=== PATIENT | male | born 1950 | race Caucasian/White ===

== ENCOUNTER 2022-02-01 08:34 | Emergency (ER) | payer MEDICARE, OTHER, SELFPAY ==
--- NOTE | ~2022-02-01 | XR_ITS ---
EXAMINATION: XR chest 1V portable INDICATION: Cough and shortness of breath TECHNIQUE: Portable AP chest at 0850 hours COMPARISON: None available FINDINGS: The lungs are free of acute opacities. No pleural effusion or pneumothorax. The cardiomedia stinal silhouette is normal. There is thoracolumbar dextroscoliosis. IMPRESSION: 1. No acute cardiopulmonary abnormality. Reviewed, dictated and finalized at location A.
[2022-02-01 08:42] VITALS: BP 121/78; PULSE 97; RESP 18; TEMP 37.3; O2SAT 95
--- NOTE | 2022-02-01 08:53 | ED.GENADULT ---
HPI - General Adult General Chief complaint: Upper Respiratory Infection Stated complaint: Covid + Time Seen by Provider: 02/01/22 08:39 History of Present Illness HPI narrative: 71-year-old male presented to the emergency department for evaluation of COVID symptoms. Patient began having fever and chills overnight on Wednesday. Patient does complain of persistent cough and nasal drip. Patient denies any chest pain or shortness of breath. Patient denies any nausea vomiting or diarrhea. Patient is vaccinated and treated. Patient does take medications for high cholesterol. Related Data Allergies Allergy/AdvReac Type Severity Reaction Status Date / Time No Known Allergies Allergy Verified 02/01/22 08:46 Review of Systems Review of Systems: CONSTITUTIONAL: See HPI EYES: Denies visual changes, redness, or discharge. ENT: Denies rhinorrhea, congestion, sore throat, or otalgia. CARDIOVASCULAR: Denies chest pain, palpitations, or edema. RESPIRATORY: Does report cough, see HPI GASTROINTESTINAL: Denies abdominal pain, nausea, vomiting, or diarrhea. GENITOURINARY: Denies dysuria or hematuria. SKIN: Denies rash or itching. MUSCULOSKELETAL: Denies back pain, joint pain, or myalgia. NEUROLOGIC: Denies headache, numbness, or weakness. PSYCHIATRIC: Denies anxiety or depression. Exam Narrative: APPEARANCE: Well appearing, no pain, no distress, well-nourished. HEAD: normocephalic, atraumatic. EYES: PERRLA/EOMI, conjunctivae clear. NOSE: Normal no drainage EARS:TMS clear with good light reflex. THROAT: Pharynx clear, no exudate. NECK: Supple. No adenopathy, no masses. RESPIRATORY: Airway patent, respirations nonlabored. Clear to auscultation bilaterally, no rales, rhonchi, wheezing. CARDIOVASCULAR: Regular rate and rhythm without murmurs rubs or gallops. ABDOMINAL: Soft, nontender, nondistended, normal bowel sounds MUSCULOSKELETAL: Moves all extremities. Strength/ROM intact, No edema, No calf tenderness. NEURO: Alert. Cranial nerves II through XII intact. Grossly intact SKIN: Warm, dry. Normal Color Course Course Emergency Course: X-ray showed no acute cardiopulmonary abnormality. Patient was provided Tessalon Perles and paxlovid Vital Signs Vital signs: Vital Signs Temperature 99.2 F 02/01/22 08:42 Pulse Rate 97 06/26/22 08:42 Respiratory Rate 18 02/01/22 08:42 Blood Pressure 121/78 02/01/22 08:42 Pulse Oximetry 95 02/01/22 08:42 Oxygen Delivery Room Air 02/01/22 08:42 Temperature 99.2 F 02/01/22 08:42 Pulse Rate 89 02/01/22 09:16 Respiratory Rate 23 H 02/01/22 09:16 Blood Pressure 117/79 02/01/22 09:16 Pulse Oximetry 95 02/01/22 09:16 Oxygen Delivery Room Air 02/01/22 08:42 Medical Decision Making Vital Signs Vital Signs: Vital Signs Temperature 99.2 F 02/01/22 08:42 Pulse Rate 97 02/01/22 08:42 Respiratory Rate 18 02/01/22 08:42 Blood Pressure 121/78 02/01/22 08:42 Pulse Oximetry 95 02/01/22 08:42 Oxygen Delivery Room Air 02/01/22 08:42 Temperature 99.2 F 02/01/22 08:42 Pulse Rate 89 02/01/22 09:16 Respiratory Rate 23 H 02/01/22 09:16 Blood Pressure 117/79 02/01/22 09:16 Pulse Oximetry 95 02/01/22 09:16 Oxygen Delivery Room Air 02/01/22 08:42 Imaging Data Radiologist's impression: Impressions Chest X-Ray 02/01/22 09:04 IMPRESSION: 1. No acute cardiopulmonary abnormality. Discharge Plan Discharge Clinical Impression: COVID Patient Disposition: Home, Self-Care Condition: Stable Instructions: Antibiotic Form, COVID-19 (Coronavirus Disease 2019) (ED) Additional Instructions: Agustin Ott for cough. paxlovid as directed. Have close follow-up with your primary care physician. If you have any worsening symptoms then please call or return to the emergency department Prescriptions: New benzonatate 200 mg capsule 200 mg PO TID PRN (Reason: cough) Qty: 30 0RF Paxlovid (EUA) 150 m
[2022-02-01 09:16] VITALS: BP 117/79; PULSE 89; RESP 23; O2SAT 95
== END 2022-02-01 09:37 | disposition home or self-care (01) ==
PROVIDERS: Emergency Provider Emergency Medicine
DX: U07.1 COVID-19 (principal); E78.00 Pure hypercholesterolemia, unspecified
CPT/HCPCS: 71045; 99283

== ENCOUNTER 2022-06-28 20:15 | Observation (INO) | payer MEDICARE, OTHER, SELFPAY ==
--- NOTE | ~2022-06-28 | XR_ITS ---
EXAMINATION: XR retrograde pyelogram RT DATE: 06/29/2022 11:54 INDICATION: Right lower quadrant pain and urolithiasis. TECHNIQUE: 62 fluoroscopic images of the abdomen and pelvis were obtained during procedure performed by Dr. Ladd. Radiologist was not present for the imaging or procedure. The amount of fluoroscopy t isatu used during this procedure was 0.8 minutes. COMPARISON: CT dated 06/28/2022 FINDINGS: Retrocardiac contrast injection into the right ureter. No other filling defects or strictures identif ied. IMPRESSION: 1. Filling defect in the proximal right ureter which could represent either a gas bubble or reflux of the stone previously at the ureteropelvic junction. Correlate with procedure note for further detail . Reviewed, dictated and finalized at location A. SERVICE DIRECTOR IMPRESSION: 1. Filling defect in the proximal right ureter which could represent either a g as bubble or reflux of the stone previously at the ureteropelvic junction. Tierney elate with procedure note for further detail.
--- NOTE | ~2022-06-28 | CT_ITS ---
EXAMINATION: CT abdomen pelvis wo con DATE: 06/28/2022 21:21 INDICATION: RLQ pain and urinary sx TECHNIQUE: Computed tomography (CT) of the abdomen and pelvis was performed without intravenous contr ast. Automated exposure control and iterative reconstruction technique were employed. The dose-length product was 837.78 mGy-cm. COMPARISON: None. FINDINGS: Lower thorax: Left lower lung scar/atelectasis. Bibasilar dependent atelectasis. Coronary artery calc ification. Mild cardiomegaly. Small hiatal hernia. Liver: Normal. Biliary/Gallbladder: Gallbladder is normal. No bile duct dilation. Pancreas: Fatty infiltration. Spleen: Normal. Adrenals:No mass. Kidneys: Bilateral perinephric stranding and multiple nonobstructing renal calculi. Simple exophytic lower pole mild right renal cyst. Mild right hydronephrosis. GI tract: No small or large bowel dilation. Normal appendix. Diverticulosis without diverticulitis. Mesentery/Peritoneum: No ascites, mass, or free air. Retroperitoneum: No mass. Atherosclerotic abdominal aortic and/or arterial calcifications. Pelvis: 7 mm calcification lodged in the right UVJ. Bladder wall thickening with mural fat infiltrati on, likely a consequence of outlet compromise from mild prostatomegaly. Soft Tissues: Soft tissues and body wall unremarkable. Bones: No acute osseous finding. IMPRESSION: 7 mm right UVJ stone causing mild obstructive uropathy. Reviewed, dictated and finalized at [facility] K. E RIPSAW OPERATOR
[2022-06-28 20:18] VITALS: BP 161/93; PULSE 67; RESP 18; TEMP 36.6; O2SAT 98
[2022-06-28 20:32] LABS: Basophils Absolute Auto 0.1 K/mm3 (0.0-0.1); Basophils Percent Auto 1.2 % (0.2-1.2); Eosinophils Absolute Auto 0.3 K/mm3 (0-0.3); Eosinophils Percent Auto 3.6 % (0-4.4); Hematocrit 45.8 % (42.0-52.0); Hemoglobin 15.2 g/dL (14.0-18.0); Immature Granulocyte Absolute 0.03 K/mm3 (0.00-0.031); Immature Granulocyte Percent A 0.4 % (0-0.5); Lymphocytes Absolute Auto 2.67 K/mm3 (0.9-3.2); Lymphocytes Percent Auto 35.2 % (18.3-44.2); Mean Corpuscular HGB Conc 33.2 g/dl (32-36); Mean Corpuscular Hemoglobin 30.5 pg (26-34); Mean Platelet Volume 9.2 fl (7.4-10.4); Monocytes Absolute Auto 0.9 K/mm3 (0.1-0.6); Monocytes Percent Auto 12.1 % (2.6-8.5); Neutrophils Absolute Auto 3.6 K/mm3 (1.3-6.7); Neutrophils Percent Auto 47.5 % (45.5-73.1); Platelet Count Result 239 k/mm3 (150-375); Red Blood Count 4.98 M/mm3 (4.6-6.20); Red Cell Distribution Width 12.6 % (11.5-14.5); White Blood Count 7.6 K/mm3 (4.5-10.0)
[2022-06-28 20:43] LABS: Alanine Aminotransferase 29 U/L (6-50); Albumin Level 4.2 g/dL (3.5-5.1); Alkaline Phosphatase 77 U/L (38-126); Anion Gap 8 mmol/L (8-16); Aspartate Amino Transferase 31 U/L (17-59); Bilirubin,Total 0.6 mg/dL (0.2-1.3); Blood Urea Nitrogen 13 mg/dL (9-20); Calcium 9.3 mg/dL (8.4-10.2); Carbon Dioxide 25 mmol/L (22-30); Chloride 106 mmol/L (98-107); Estimated CRCL calculation 80 ml/min; Estimated Glomerular Filt Rate > 60; Glucose 137 mg/dL (65-110); Lipase 127 U/L (23-300); Potassium 4.3 mmol/L (3.4-5.0); Sodium 139 mmol/L (137-145)
[2022-06-28 20:56] LABS: Appearance Urine Slightly Cloudy (Clear); Bilirubin Urine Negative (Negative); Blood Urine 2+ (Negative); Color Urine Yellow (Yellow); Glucose Urine UA Negative (Negative); Ketones Urine Trace mg/dL (Negative); Leukocyte Esterase Ur Negative LEU/UL (Negative); Nitrate Urine Negative (Negative); Protein Urine 2+ mg/dL (Negative); Specific Grav Ur >= 1.030 (1.001-1.035)
[2022-06-28 21:00] LABS: Mucus Urine Few /lpf; RBC Urine >75 /hpf (0-2); Squamous Epithelial Cell Urine Rare /hpf (Few); WBC Urine 0-3 /hpf
[2022-06-28 21:01] LABS: Add Urine Microscopic? YES
--- NOTE | 2022-06-28 21:18 | ED.ABDPAIN ---
HPI - Abdominal Pain General Chief Complaint: Abdominal Pain Stated Complaint: RLQ pain Time Seen by Provider: 06/28/22 20:20 History of Present Illness HPI narrative: Patient with history of kidney stones presents with right lower quadrant pain that worsens with urination and nausea, Started several days ago and got much worse today, improved with ibuprofen. No fevers or chills. Related Data Home Medications Medication Instructions Recorded Confirmed cetirizine 5 mg-pseudoephedrine ER tablet PO 06/28/22 120 mg tablet,extended release,12hr (Zyrtec-D) fluticasone propionate 50 intranasal 06/28/22 mcg/actuation nasal spray,suspension simvastatin 40 mg tablet mg 06/28/22 Allergies Allergy/AdvReac Type Severity Reaction Status Date / Time No Known Allergies Allergy Verified 06/28/22 20:22 Review of Systems Review of Systems: CONST: No fever. HEENT: No sore throat C/V: No chest pain RESP: No cough GI: Reports abdominal pain, nausea : Dysuria. M/S: No joint pain. SKIN: No rash. 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 Smoking status: Never smoker Alcohol intake: never Substance use: never Exam Narrative: EXAMINATION OF ORGAN SYSTEMS/BODY AREAS: Constitutional: Vital signs per nursing GENERAL:[No acute distress, non-toxic appearing.] HEAD: Normal with no signs of head trauma. EYES: EOMI, conjunctiva normal ENT: Hearing grossly intact LUNGS: Nonlabored breathing. HEART: [Regular rate and rhythm] ABD: [Soft], [nontender to palpation] : No testicular tenderness or swelling EXT: Normal range of motion SKIN: [No rashes or lesions.] NEURO: [Alert and oriented x 3. No gross focal sensory or strength deficits.] PSYCH: Normal affect Course Vital Signs Vital signs: Vital Signs Temperature 97.8 F 06/28/22 20:18 Pulse Rate 67 06/28/22 20:18 Respiratory Rate 18 06/28/22 20:18 Blood Pressure 161/93 H 06/28/22 20:18 Pulse Oximetry 98 06/28/22 20:18 Oxygen Delivery Room Air 06/28/22 20:18 Temperature 97.8 F 06/28/22 20:18 Pulse Rate 67 06/28/22 20:18 Respiratory Rate 18 06/28/22 20:18 Blood Pressure 161/93 H 06/28/22 20:18 Pulse Oximetry 98 06/28/22 20:18 Oxygen Delivery Room Air 06/28/22 20:18 MDM - Abdominal Pain MDM Narrative Medical decision making narrative: ED COURSE AND MEDICAL DECISION MAKIN-year-old male presenting to the emergency department for acute abdominal pain and dysuria, symptoms are concerning for likely renal colic versus pyelonephritis. Urinalysis is ordered. [Tylenol, morphine, Zofran 4mg] are ordered. CT scan of the abdomen/pelvis is ordered. Labs are remarkable for: hematuria. CT scan of the abdomen/pelvis is reviewed by myself and interpreted by radiology: 7mm R UVJ stone. On reevaluation, discussed options with patient and he'd like to be admitted for intervention; d/w uro radiology interventional physician who is agreeable to seeing him the next day, discussed with hospitalist for admission. Procedures: Pulse oximetry interpretation - not hypoxic. Review of medical records. Lab Data Result diagrams: 06/28/22 20:26 06/28/22 20:26 Labs: Lab Results 06/28/22 06/28/22 06/28/22 Range/Units 20:26 20:26 20:50 WBC 7.6 (4.5-10.0) K/mm3 RBC 4.98 (4.6-6.20) M/mm
[2022-06-28] MEDS: MORPHINE SULFATE (*CRX) 4 MG/ML INJ IV PUSH (22:00)
--- NOTE | 2022-06-28 22:29 | PM.IMHP ---
H&P: HPI History of Present Illness Date/Time: 06/28/22 22:29 Chief Complaint: Abdominal pain, dysuria Narrative: Patient is a 72-year-old male past medical history of kidney stones, hyperlipidemia, essential hypertension, seasonal allergies presents to ED with complaints of dysuria abdominal pain. Symptom onset was couple days ago alleviated somewhat by NSAIDs. Not had any other recent issues. Patient's kidney stones in the past have been passed on their own. He has not needed to have urological intervention previously. In the ED: Abdominal CT scan consistent with 7 mm right UVJ stone with mild obstructive uropathy. Patient made NPO for urology Dr. Frye consultation in. Patient be admitted for observation for right nephrolithiasis and obstructive uropathy. He was slightly hypertensive otherwise labs stable. Review of Systems Review of Systems: Constitutional: No Fever, No Chills, No Night Sweats, No Fatigue, No Malaise ENT/Mouth: No Hearing Changes, No Ear Pain, No Nasal Congestion, No Sinus Pain, No Hoarseness, No sore throat, No Rhinorrhea, No Swallowing Difficulty Eyes: No Eye Pain, No Redness, No Vision Changes Cardiovascular: No Chest Pain, No Palpitations, No Dyspnea on Exertion, No Orthopnea, No Claudication, No Edema Respiratory: No Cough, No Sputum, No Wheezing, No Shortness of Breath Gastrointestinal: Endorses abdominal pain, nausea Genitourinary: Endorses dysuria, dark urine Musculoskeletal: No Arthralgias, No Myalgias, No Joint Swelling, No Joint Stiffness, No Back Pain Skin: No Skin Lesions, No Pruritis, No Hair Changes Neuro: No Weakness, No Numbness, No Paresthesias, No Loss of Consciousness, No Syncope, No Dizziness, No Headache Psych: No Anxiety/Panic, No Depression, No Insomnia Heme: No Bruising, No Bleeding Lymph: No Adenopathy Endocrine: No Polyuria, No Polydipsia, No Temperature Intolerance [facility] Past Medical History Medical History (Updated 06/28/22 @ 22:33 by Lesli Ott DO) Essential hypertension Hyperlipidemia Nephrolithiasis Seasonal allergies Surgical History Surgical History (Updated 06/28/22 @ 22:33 by Lesli Ott DO) History of surgery of head Family History Family History (Updated 06/28/22 @ 22:34 by Lesli Ott DO) Mother Cerebrovascular accident Father Acute myocardial infarction Social History Social History (Updated 06/28/22 @ 22:34 by Lesli Ott DO) 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 Smoking status: Never smoker Alcohol intake: never Substance use: never Meds Home Medications and Allergies Home Medications Medication Instructions Recorded Confirmed Type cetirizine 5 mg-pseudoephedrine ER tablet PO 06/28/22 History 120 mg tablet,extended release,12hr (Zyrtec-D) fluticasone propionate 50 intranasal 06/28/22 History mcg/actuation nasal spray,suspension simvastatin 40 mg tablet mg 06/28/22 History Allergies Allergy/AdvReac Type Severity Reaction Status Date / Time No Known Allergies Allergy Verified 06/28/22 20:22 Vital Signs Vital Signs - 24 hr 06/28/22 20:18 Temperature 36.6 C Pulse Rate 67 Respiratory Rate 18 Blood Pressure 161/93 H Pulse Oximetry 98 Oxygen Delivery Room Air Exam Narrative: - GENERAL: Pleasant obese male in no acute distress. - EYES: EOMI. Anicteric. - HENT: Moist mucous membranes. - LUNGS: Clear to auscultation bilaterally, no wheezing, rhonchi, or rales. - CARDIOVASCULAR: Regular rate and rhythm. No murmur. No JVD. - ABDOMEN: Soft, tender on deep palpation, rectus diastasis. - EXTREMITIES: No edema. Peripheral pulses 2+. Non-tender. - NEUROLOGIC: No focal neurological deficits. CN II-XII grossly intact. - PSYCHIATRIC: Awake, Alert and oriented x 3. Appropriate mood and affect. - SKIN: No rashes or lesions. Warm. - LYMPH: No cervical lymphadenopathy. H&P: Results Labs Labs:
[2022-06-28 22:34] VITALS: BP 129/80; PULSE 55; RESP 18; O2SAT 96
[2022-06-28 23:04] VITALS: BP 122/66; PULSE 52; RESP 18; TEMP 36.4; O2SAT 94; BMI 28.3
--- NOTE | 2022-06-28 23:05 | ADMGEN ---
This patient, Brendon Aldana, was admitted to Medical Room 253-01. Patient/family oriented to hospital policies and general routines including ID bracelet, bed and alarms, visiting hours, pain management, procedures, bathroom and other care routines, personal items, smoking policy, room service/diet, and visiting hours. Information on how to activate the Rapid Response Team has been discussed. Patient/Family are encouraged to report perceived risks to care and to ask questions if they do not understand what they are told or what they should do.
[2022-06-28 23:14] LABS: Influenza A QL RT-PCR Negative (Negative); Influenza B QL RT-PCR Negative (Negative); SARS-CoV-2 RNA PCR Negative
[2022-06-28] MEDS: SODIUM CHLORIDE 0.9% IV 1,000 ML 125 ML IV CONT (23:15)
[2022-06-29] VITALS (13 sets, daily range): BP systolic 127–156; BP diastolic 69–86; PULSE 52–67; RESP 14–20; TEMP 35.9–36.8; O2SAT 94–100
[2022-06-29] MEDS: KETOROLAC 30 MG/ML VIAL (*BKC) IV PUSH (07:22)
[2022-06-29] MEDS: SODIUM CHLORIDE 0.9% IV 1,000 ML 125 ML IV CONT (07:23)
--- NOTE | 2022-06-29 09:33 | PM.IMPN ---
Progress Note: A&P Assessment and Plan (1) Nephrolithiasis: Code(s): N20.0 - Calculus of kidney Status: Acute Plan # right nephrolithiasis with obstructive uropathy -history of kidney stones, imaging CT scan consistent with a 7 mm right UVJ stone with mild obstructive uropathy -Urology Dr. Frye consulted, patient is NPO for stent placement tomorrow and possible lithotripsy -pain control: P.r.n. ketorolac, morphine -nausea: Zofran -IV fluids: NS 125cc/hr # other chronic conditions -hyperlipidemia: Simvastatin -essential hypertension: Losartan -seasonal allergies: Cetirizine, Flonase Diet: NPO for surgery DVT prophylaxis: Ambulatory, low GARETT score Code status: Full code Disposition: Observation, likely home after urology procedure Subjective Date/time seen: 06/29/22 09:33 pain control Exam Narrative: - GENERAL: Pleasant obese male in no acute distress. - EYES: EOMI. Anicteric. - HENT: Moist mucous membranes. - LUNGS: Clear to auscultation bilaterally, no wheezing, rhonchi, or rales. - CARDIOVASCULAR: Regular rate and rhythm. No murmur. No JVD. - ABDOMEN: Soft, tender on deep palpation, rectus diastasis. - EXTREMITIES: No edema. Peripheral pulses 2+. Non-tender. - NEUROLOGIC: No focal neurological deficits. CN II-XII grossly intact. - PSYCHIATRIC: Awake, Alert and oriented x 3. Appropriate mood and affect. - SKIN: No rashes or lesions. Warm. - LYMPH: No cervical lymphadenopathy. Objective Data Vital Signs Vital Signs: Vital Signs - 24 hr 06/28/22 20:18 06/28/22 22:34 06/28/22 23:04 Temperature 97.8 F 97.6 F Pulse Rate 67 55 L 52 L Respiratory Rate 18 18 18 Blood Pressure 161/93 H 129/80 122/66 Pulse Oximetry 98 96 94 Oxygen Delivery Room Air 06/29/22 05:36 06/29/22 08:00 Temperature 98.2 F 96.7 F L Pulse Rate 67 54 L Respiratory Rate 18 16 Blood Pressure 147/76 H 131/69 Pulse Oximetry 98 96 Oxygen Delivery Intake/Output Intake/Output: Intake & Output 06/26/22 06/27/22 06/28/22 06/29/22 23:59 23:59 23:59 23:59 Intake Total 100 1000 Output Total 500 Balance 100 500 Meds/Results Medications: Active Medications Generic Name Dose Route Start Last Admin Trade Name Freq PRN Reason Stop Dose Admin Fluticasone Propionate 1 spray 06/29/22 09:00 Fluticasone Propionate 0.05% Na Spr 16 Gm Btl (*Bkc) NASAL DAILY DEEPA Sodium Chloride 1,000 mls @ 125 mls/hr 06/28/22 22:40 06/29/22 07:23 Normal Saline Iv IV CONT 125 mls/hr .Q8H DEEPA Administration Ketorolac Tromethamine 30 mg 06/28/22 21:59 06/29/22 07:22 Ketorolac 30 Mg/Ml Vial (*Bkc) IV PUSH 07/03/22 21:58 30 mg Q6H PRN Administration Pain Rated 4-6 Loratadine/Pseudoephedrine Sulfate 1 tab 06/29/22 09:00 Loratadine/Pseudoephedrine (*Crx) 10/240 Mg Tablet Er 24 Hr PO QAM [facility] Losartan Potassium 50 mg 06/29/22 09:00 Losartan Potassium 50 Mg Tablet PO DAILY DEEPA Montelukast Sodium 10 mg 06/29/22 21:00 Montelukast Sodium 10 Mg Tablet PO HS [facility] Morphine Sulfate 4 mg 06/28/22 22:27 Morphine Sulfate (*Crx) 2 Mg/Ml Inj IV PUSH Q2H PRN Pain Rated 7-10 Ondansetron HCl 4 mg 06/28/22 21:59 Ondansetron Inj 4 Mg/2 Ml Vial IV PUSH Q4H PRN Nausea Simvastatin 40 mg 06/29/22 09:00 Simvastatin 20 Mg Tablet PO DAILY [facility] Radiology Results: ITS Impressions Abdomen/Pelvis CT 06/28/22 21:31 IMPRESSION: 7 mm right UVJ stone causing mild obstructive uropathy. Labs Labs: Laboratory Results - last 24 hr 06/28/22 06/28/22 06/28/22 20:26 20:26 20:50 WBC 7.6 RBC 4.98 Hgb 15.2 Hct 45.8 MCV 92.0 MCH 30.5 MCHC 33.2 RDW 12.6 Plt Count 239 MPV 9.2 Immature Gran % (Auto) 0.4 Neut % (Auto) 47.5 Lymph % (Auto) 35.2 [place] % (Auto) 12.1 H Eos % (Auto) 3.6 Baso % (Auto) 1.2 Lymph # (Auto) 2.67 [place] # (Auto) 0.9 H Eos # (Auto) 0.3
--- NOTE | 2022-06-29 09:53 | WPDURCON ---
Assessment and Plan Assessment and plan (1) Nephrolithiasis: Code(s): N20.0 - Calculus of kidney Status: Acute Assessment and Plan: Obtain Consent: Cystoscopy, right ureteroscopy with stone removal, right stent placement, right retrograde pyelogram, possible holmium laser. Keep NPO. Plan to go to the OR today with Dr. Ladd. 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 Smoking status: Never smoker Alcohol intake: never Substance use: never Lack of Transportation: No Lack of Food: Never True Current Housing: I Have Housing Concerned About Future Housing: No Difficulty Paying Gas/Electric Bills: No Difficulty Paying for Meds: No Currently Unemployed: No Education: Bachelor's Degree Difficulty w/ Childcare or Family Care: No Spiritual care concerns: No Meds Home Medications and Allergies Home Medications Medication Instructions Recorded Confirmed Type cetirizine 5 mg-pseudoephedrine ER 1 tablet PO DAILY 06/28/22 06/28/22 History 120 mg tablet,extended release,12hr (Zyrtec-D) fluticasone propionate 50 1 spray intranasal DAILY 06/28/22 06/28/22 History mcg/actuation nasal spray,suspension losartan 50 mg tablet 50 mg PO DAILY 06/28/22 06/28/22 History montelukast 10 mg tablet 10 mg PO HS 06/28/22 06/28/22 History simvastatin 40 mg tablet 40 mg PO DAILY 06/28/22 06/28/22 History Allergies Allergy/AdvReac Type Severity Reaction Status Date / Time No Known Allergies Allergy Verified 06/28/22 23:22 Vital Signs Vital Signs - 24 hr 06/28/22 20:18 06/28/22 22:34 06/28/22 23:04 Temperature 97.8 F 97.6 F Pulse Rate 67 55 L 52 L Respiratory Rate 18 18 18 Blood Pressure 161/93 H 129/80 122/66 Pulse Oximetry 98 96 94 Oxygen Delivery Room Air 06/29/22 05:36 06/29/22 08:00 Temperature 98.2 F 96.7 F L Pulse Rate 67 54 L Respiratory Rate 18 16 Blood Pressure 147/76 H 131/69 Pulse Oximetry 98 96 Oxygen Delivery Results Labs CBC & Chem 7: 06/28/22 20:26 06/28/22 20:26 Labs: Short CBC 06/28/22 Range/Units 20:26 WBC 7.6 (4.5-10.0) K/mm3 Hgb 15.2 (14.0-18.0) g/dL Hct 45.8 (42.0-52.0) % Plt Count 239 (150-375) k/mm3 BMP 06/28/22 20:26 Sodium 139 Potassium 4.3 Chloride 106 Carbon Dioxide 25 BUN 13 Creatinine 0.80 Glucose 137 H Calcium 9.3 Liver Function 06/28/22 Range/Units 20:26 Total Bilirubin 0.6 (0.2-1.3) mg/dL AST 31 (17-59) U/L ALT 29 (6-50) U/L Alkaline Phosphatase 77 (38-126) U/L Albumin 4.2 (3.5-5.1) g/dL Urine 06/28/22 Range/Units 20:50 Urine Color Yellow (Yellow) Urine Appearance Slightly cloudy (Clear) Urine pH 6.0 (5.0-9.0) Ur Specific [place] >= 1.030 (1.001-1.035) Urine Protein 2+ H (Negative) mg/dL Urine Glucose (UA) Negative (Negative) mg/dL
[2022-06-29] MEDS: LOSARTAN POTASSIUM 50 MG TABLET PO (09:58)
[2022-06-29] MEDS: FLUTICASONE PROPIONATE 0.05% NA SPR 16 GM BTL (*BKC) 1 SPRAY NASAL (09:58)
[2022-06-29] MEDS: SIMVASTATIN 20 MG TABLET 40 MG PO (09:58)
--- NOTE | 2022-06-29 10:07 | WPDANESEPPF ---
Anes - Initial Pre Proc Eval Procedure: Operation Date: 06/29/22 16:15 Proposed Procedures p Cystoscopy,Right Ureteroscopy,Possible Right Retrograde Pyelogram, Possible Right Stone Extraction, Possible Right Stent Placement, Possible Holmium Laser Procedure - Jayy Ladd MD Date/Time: 06/29/22 10:07 Pre Op Diagnosis: uvj stone Patient Data Age: 72 Gender: M Height: 1.8 m Weight: 92.1 kg Last Vital Signs Temp 35.9 C L 06/29/22 08:00 Pulse 54 L 06/29/22 08:00 Resp 16 06/29/22 08:00 BP 131/69 06/29/22 08:00 Pulse Ox 96 06/29/22 08:00 O2 Del Method Room Air 06/28/22 20:18 Allergies Allergy/AdvReac Type Severity Reaction Status Date / Time No Known Allergies Allergy Verified 06/28/22 23:22 Home Medications Medication Instructions Recorded Confirmed Type cetirizine 5 mg-pseudoephedrine ER 1 tablet PO DAILY 06/28/22 06/28/22 History 120 mg tablet,extended release,12hr (Zyrtec-D) fluticasone propionate 50 1 spray intranasal DAILY 06/28/22 06/28/22 History mcg/actuation nasal spray,suspension losartan 50 mg tablet 50 mg PO DAILY 06/28/22 06/28/22 History montelukast 10 mg tablet 10 mg PO HS 06/28/22 06/28/22 History simvastatin 40 mg tablet 40 mg PO DAILY 06/28/22 06/28/22 History Laboratory Tests 06/28/22 06/28/22 06/28/22 20:26 20:26 20:50 WBC 7.6 K/mm3 K/mm3 (4.5-10.0) RBC 4.98 M/mm3 M/mm3 (4.6-6.20) Hgb 15.2 g/dL g/dL (14.0-18.0) Hct 45.8 % % (42.0-52.0) MCV 92.0 fl fl (80-100) MCH 30.5 pg pg (26-34) MCHC 33.2 g/dl g/dl (32-36) RDW 12.6 % % (11.5-14.5) Plt Count 239 k/mm3 k/mm3 (150-375) MPV 9.2 fl fl (7.4-10.4) Immature Gran % (Auto) 0.4 % % (0-0.5) Neut % (Auto) 47.5 % % (45.5-73.1) Lymph % (Auto) 35.2 % % (18.3-44.2) [place] % (Auto) 12.1 % H % (2.6-8.5) Eos % (Auto) 3.6 % % (0-4.4) Baso % (Auto) 1.2 % % (0.2-1.2) Lymph # (Auto) 2.67 K/mm3 K/mm3 (0.9-3.2) [place] # (Auto) 0.9 K/mm3 H K/mm3 (0.1-0.6) Eos # (Auto) 0.3 K/mm3 K/mm3 (0-0.3) Baso # (Auto) 0.1 K/mm3 K/mm3 (0.0-0.1) Abs Immat Gran (auto) 0.03 K/mm3 K/mm3 (0.00-0.031) Absolute Neuts (auto) 3.6 K/mm3 K/mm3 (1.3-6.7) Absolute Nucleated RBC 0.0 K/mm3 K/mm3 (0.0-0.012) Nucleated RBC % 0.0 % % (0.0-0.2) Sodium 139 mmol/L mmol/L (137-145) Potassium 4.3 mmol/L mmol/L (3.4-5.0) Chloride 106 mmol/L mmol/L (98-107) Carbon Dioxide 25 mmol/L mmol/L (22-30) Anion Gap 8 mmol/L mmol/L (8-16) BUN 13 mg/dL mg/dL (9-20) Creatinine 0.80 mg/dL mg/dL (0.7-1.3) Estim Creat Clear Calc 80 ml/min ml/min Estimated GFR > 60 (59 - ) Glucose 137 mg/dL H mg/dL (65-110) Calcium 9.3 mg/dL mg/dL (8.4-10.2) Total Bilirubin 0.6 mg/dL mg/dL (0.2-1.3) AST 31 U/L U/L (17-59) ALT 29 U/L U/L (6-50) Alkaline Phosphatase 77 U/L U/L (38-126) Total Protein 8.0 g/dL g/dL (6.3-8.2) Albumin 4.2 g/dL g/dL (3.5-5.1) Lipase 127 U/L U/L (23-300) Urine Color Yellow (Yellow) Urine Appearance Slightly cloudy (Clear) Urine pH 6.0 (5.0-9.0) Ur Specific [place] >= 1.030 (1.001-1.035) Urine Protein 2+ mg/dL H mg/dL (Negative) Urine Glucose (UA) Negative mg/dL mg/dL (Negative) Urine Ketones Trace mg/dL mg/dL (Negative) Ur Blood (Man) 2+ H (Negative) Urine Nitrate Negative (Negative) Urine Bilirubin Negative (Negative) Urine Urobilinogen 1.0 mg/dL mg/dL (<2.0) Leukocyte Esterase Rfl Negative STACEY/UL STACEY/UL (Negative) Urin
--- NOTE | 2022-06-29 10:26 | PM.IMHP ---
H&P: HPI History of Present Illness Date/Time: 06/29/22 10:26 Chief Complaint: Ureteral stone Narrative: This is a gentleman with a prior history of nephrolithiasis. They have always passed on their own. He stated about a week ago he noted some urgency and frequency. He saw his primary care doctor. They thought was a prostate issue and started on antibiotics. Yesterday while he was blowing his nose and sneezing at acute onset of right flank pain. This intensified throughout the day and prompted an ER visit. He was diagnosed a 7 mm distal ureteral stone on the right. He has bilateral nonobstructing renal stones. He had no nausea, vomiting, fevers, chills. There is no dysuria. He has never needed to have a stone procedure in the past. He was quite miserable overnight. We will intervene on his stone this morning. 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 Smoking status: Never smoker Alcohol intake: never Substance use: never Lack of Transportation: No Lack of Food: Never True Current Housing: I Have Housing Concerned About Future Housing: No Difficulty Paying Gas/Electric Bills: No Difficulty Paying for Meds: No Currently Unemployed: No Education: Bachelor's Degree Difficulty w/ Childcare or Family Care: No Spiritual care concerns: No Meds Home Medications and Allergies Home Medications Medication Instructions Recorded Confirmed Type cetirizine 5 mg-pseudoephedrine ER 1 tablet PO DAILY 06/28/22 06/28/22 History 120 mg tablet,extended release,12hr (Zyrtec-D) fluticasone propionate 50 1 spray intranasal DAILY 06/28/22 06/28/22 History mcg/actuation nasal spray,suspension losartan 50 mg tablet 50 mg PO DAILY 06/28/22 06/28/22 History montelukast 10 mg tablet 10 mg PO HS 06/28/22 06/28/22 History simvastatin 40 mg tablet 40 mg PO DAILY 06/28/22 06/28/22 History Allergies Allergy/AdvReac Type Severity Reaction Status Date / Time No Known Allergies Allergy Verified 06/28/22 23:22 Vital Signs Vital Signs - 24 hr 06/28/22 20:18 06/28/22 22:34 06/28/22 23:04 Temperature 97.8 F 97.6 F Pulse Rate 67 55 L 52 L Respiratory Rate 18 18 18 Blood Pressure 161/93 H 129/80 122/66 Pulse Oximetry 98 96 94 Oxygen Delivery Room Air 06/29/22 05:36 06/29/22 08:00 Temperature 98.2 F 96.7 F L Pulse Rate 67 54 L Respiratory Rate 18 16 Blood Pressure 147/76 H 131/69 Pulse Oximetry 98 96 Oxygen Delivery Exam Const: General: cooperative, healthy appearing, no acute distress, well developed, alert, awake and Physically active Orientation/consciousness: patient oriented x3 Limitations: no limitations HENMT: Head: normal to inspection Eyes: General: appearance normal, both eyes and all related structures Neck: Neck: normal visual inspection and full ROM Resp: Effort & Inspection: normal respiratory effort, able to speak in complete sentences and no cough GI: Inspection: normal to inspection and obesity Skin: General skin exam: normal color and no rashes or lesions noted Neuro: General: oriented to person, oriented to place, oriented to time, tone normal and moves all extremities Cognition (Neuro): normal cognition Speech: normal speech Extre
--- NOTE | 2022-06-29 10:30 | WPDHPUPDATE1 ---
History and Physical Update Update Date/Time: 06/29/22 10:30 History and Physical has been reviewed, including an updated exam of the patient. There are NO changes in the patient's condition. Risks, benefits, and alternatives have been discussed and questions answered. Patient agrees to proceed with procedure.
[2022-06-29] MEDS: LACTATED RINGERS 1,000 ML 30 ML IV CONT (10:31)
[2022-06-29] MEDS: ceFAZolin 2 GM/D5W 50 ML 2 GM/50 ML BAG IVPB (11:19)
[2022-06-29] MEDS: LIDOCAINE HCL 2% GEL UROJET 10 ML PKG MUCOUS MEM (11:40)
[2022-06-29] MEDS: ONDANSETRON INJ 4 MG/2 ML VIAL IV PUSH (14:11)
[2022-06-29] MEDS: LORATADINE/PSEUDOEPHEDRINE (*CRX) 10/240 MG TABLET ER 24 HR 1 TAB PO (14:16)
[2022-06-29] MEDS: PHENAZOPYRIDINE HCL 100 MG TABLET 200 MG PO (14:52)
--- NOTE | 2022-07-03 12:08 | W.PM.PROC2 ---
Procedure Note - Detailed Date of Procedure 06/29/22 Pre-op Diagnosis uvj stone Post-op Diagnosis Same Procedure Performed Cystoscopy, right retrograde pyelogram, right ureteroscopy, stone extraction Surgeon Jayy Ladd MD Anesthesia General Indications is a gentleman with a large right distal ureteral stone here for intervention Findings stone extracted intact Description of Procedure historically identified. Informed consent is obtained. He is from the operating room. He was given general anesthesia. Placed in dorsal thigh position. Prepped and draped in sterile fashion. Time-out performed. Cystoscopy revealed a hypervascular prostate with some trabeculations in the bladder. No other bladder abnormalities. The stone was seen to be from the right ureteral orifice. I did gentle retrograde pyelogram on the right to outline ureteral anatomy. There was no extravasation. I placed a guidewire to the kidney. I dilated the ureter with the 810 dilator. I performed ureteroscopy. The stone was encountered. It was basketed and removed. There was minimal manipulation of the ureter. I elected to not leave ureteral stent. His bladder was drained. He was awakened and transferred to PACU in stable condition. Estimated Blood Loss 1 Urine Output 300 Drains No Packing No Pathology Yes ( Stone) Complications No immediate complications Condition Stable Disposition PACU
--- NOTE | 2022-09-07 12:23 | PM.DS ---
DS: Admitting Diagnosis Discharge Date 06/29/22 Admitting Diagnosis Stone DS: Discharge Diagnosis Discharge Diagnosis (1) Nephrolithiasis: Code(s): N20.0 - Calculus of kidney Status: Acute Plan # right nephrolithiasis with obstructive uropathy -history of kidney stones, imaging CT scan consistent with a 7 mm right UVJ stone with mild obstructive uropathy -Urology Dr. Frye consulted, patient is NPO for stent placement tomorrow and possible lithotripsy -pain control: P.r.n. ketorolac, morphine -nausea: Zofran -IV fluids: NS 125cc/hr # other chronic conditions -hyperlipidemia: Simvastatin -essential hypertension: Losartan -seasonal allergies: Cetirizine, Flonase Diet: NPO for surgery DVT prophylaxis: Ambulatory, low GARETT score Code status: Full code Disposition: Observation, likely home after urology procedure DS: Summary Hospital Course Hospital Course: 9-year-old gentleman came in with the ureteral stone had stent placement. Did well postop can be discharged. Time Spent with Patient Time attestation: Total time spent providing and/or coordinating discharge services: Exam Narrative: - GENERAL: Pleasant obese male in no acute distress. - EYES: EOMI. Anicteric. - HENT: Moist mucous membranes. - LUNGS: Clear to auscultation bilaterally, no wheezing, rhonchi, or rales. - CARDIOVASCULAR: Regular rate and rhythm. No murmur. No JVD. - ABDOMEN: Soft, tender on deep palpation, rectus diastasis. - EXTREMITIES: No edema. Peripheral pulses 2+. Non-tender. - NEUROLOGIC: No focal neurological deficits. CN II-XII grossly intact. - PSYCHIATRIC: Awake, Alert and oriented x 3. Appropriate mood and affect. - SKIN: No rashes or lesions. Warm. - LYMPH: No cervical lymphadenopathy. DS: Data Data Completed and Pending Completed studies during hospitalization: Pending at discharge 06/29/22 11:42 Surgical [PTH] Routine Discharge Plan Discharge Consulting providers: Jose Alejandro Barragan ; Brendon Triplett ; Joce Nolen ; José Miguel Chacko Discharging Clinician: Jayy Ladd Anticipated Discharge Date/Time: 06/29/22 14:00 Patient Disposition: Home, Self-Care Activity: no shower Diet: as tolerated Wound Care Instructions: follow printed instructions Patient Instructions: Antibiotic Form, Pain Management (DC) Stand Alone Forms: General Discharge Information Follow-up/Referrals: Shashi Frye MD [Physician] - (Follow-up with urology Dr Aguilar or Lucinda in 6 weeks [phone]) Discharge Medications: New hydrocodone-acetaminophen 5-325 mg tablet 1 tablet PO Q6H PRN (Reason: pain) Qty: 20 0RF phenazopyridine [Pyridium] 200 mg tablet 200 mg PO TID PRN (Reason: pain) Qty: 30 0RF Continued cetirizine-pseudoephedrine [Zyrtec-D] 5-120 mg tablet extended release 12 hr 1 tablet PO DAILY simvastatin 40 mg tablet 40 mg PO DAILY fluticasone propionate 50 mcg/actuation spray,suspension 1 spray INTRANASAL DAILY losartan 50 mg tablet 50 mg PO DAILY montelukast 10 mg tablet 10 mg PO HS Date of admission: 06/28/22 22:00 Primary Care Provider: PHYSICIAN NOT ON STAFF,NONSTAFF Admitting Provider: Lesli Ott Attending physician on admission: Jayy Ladd Condition: Stable
== END 2022-06-29 15:42 | disposition home or self-care (01) ==
LOC: ANHED 22:38 → ANH2MED 23:05
PROVIDERS: Emergency Medicine; Admitting Provider Student in an Organized Health Care Education/Training Program; Emergency Provider Emergency Medicine; Visit Provider Urology
PROC: (CPT 52352; principal; 2022-06-29 16:15)
DX: N13.2 Hydronephrosis with renal and ureteral calculous obstruction (principal); E78.5 Hyperlipidemia, unspecified; I10 Essential (primary) hypertension; J30.2 Other seasonal allergic rhinitis; Z87.442 Personal history of urinary calculi; Z79.51 Long term (current) use of inhaled steroids; Z79.899 Other long term (current) drug therapy; Z82.49 Family history of ischemic heart disease and other diseases of the circulatory system; Z20.822 Contact with and (suspected) exposure to COVID-19
CPT/HCPCS: 52352; 36415; 74176; 74420; 80053; 81001; 82365; 83690; 85025; 87636; 88300; 96361; 96365; 96375; 99285; A9270; C1769; G0378; J0131; J0690; J1100; J1885; J2270; J2405; J2704; J3010; J7030; J7120

== ENCOUNTER 2022-07-31 08:57 | Outpatient (CLI) | payer MEDICARE, OTHER, SELFPAY ==
--- NOTE | ~2022-07-31 | US_ITS ---
EXAMINATION: US retroperitoneal comp DATE: 07/31/2022 09:29 INDICATION: Right ureteral stone EXAMINATION: US retroperitoneal comp DATE: 07/31/2022 09:29 INDICATION: Right ureteral stone TECHNIQUE: Multiple ultrasound grayscale images of the kidneys were obtained. COMPARISON: None. FINDINGS: The right kidney measures 10.9 x 5.1 x 4.4 cm. The left kidney measures 12.8 x 6.4 x 4.9 cm. The kidn eys demonstrate normal echogenicity. 2.2 cm exophytic cyst at the lower pole of the right kidney. The re is no hydronephrosis in either kidney. No stones identified. The bladder is normal. IMPRESSION: 1. 2.2 cm right renal cyst. Otherwise normal kidneys with no hydronephrosis. Reviewed, dictated and finalized at location B. K SHOP SUPERVISOR
== END 2022-07-31 08:58 | disposition home or self-care (01) ==
PROVIDERS: Visit Provider Urology
DX: N20.1 Calculus of ureter (principal); N28.1 Cyst of kidney, acquired
CPT/HCPCS: 76770

== ENCOUNTER 2022-09-24 12:16 | Emergency (ER) | payer MEDICARE, OTHER, SELFPAY ==
--- NOTE | 2022-09-24 12:19 | ED.URI ---
HPI - URI/Sore Throat General Chief Complaint: Upper Respiratory Infection Stated Complaint: SINUS CONGESTION Time Seen by Provider: 09/24/22 12:20 Source: patient and RN notes reviewed History of Present Illness HPI Narrative: Patient is a 72-year-old male who presents to urgent care with complaints of sinus pressure/pain, nasal congestion an odorous drainage for months. Patient states he has been taking Zyrtec D, using Flonase and taking Singulair. Denies of cough, fever, nausea or vomiting. Patient states he has had chronic sinus issues for many months and has been battling a sinus infection since June. Patient states his primary care doctor finally referred him to an ENT and which he cannot get in until October. Patient states he has not been on antibiotics recently. No other acute complaints. No acute distress noted. Patient aware of the plan of care. Some parts of this dictation were generated by voice recognition software and may contain typographical and/or grammatical inaccuracies. Related Data Home Medications Medication Instructions Recorded Confirmed cetirizine 5 mg-pseudoephedrine ER 1 tablet PO DAILY 06/28/22 09/24/22 120 mg tablet,extended release,12hr (Zyrtec-D) fluticasone propionate 50 1 spray intranasal DAILY 06/28/22 09/24/22 mcg/actuation nasal spray,suspension losartan 50 mg tablet 50 mg PO DAILY 06/28/22 09/24/22 montelukast 10 mg tablet 10 mg PO HS 06/28/22 09/24/22 simvastatin 40 mg tablet 40 mg PO DAILY 06/28/22 09/24/22 Allergies Allergy/AdvReac Type Severity Reaction Status Date / Time No Known Allergies Allergy Verified 09/24/22 12:33 Review of Systems Review of Systems: CONSTITUTIONAL: Denies fever, chills, or sweats. EYES: Denies visual changes, redness, or discharge. ENT: Reports of severe nasal congestion, sinus pressure and pain, rhinorrhea CARDIOVASCULAR: Denies chest pain, palpitations, or edema. RESPIRATORY: Reports cough without dyspnea GASTROINTESTINAL: Denies abdominal pain, nausea, vomiting, or diarrhea. GENITOURINARY: Denies dysuria or hematuria. SKIN: Denies rash or itching. MUSCULOSKELETAL: Denies back pain, joint pain, or myalgia. NEUROLOGIC: Denies headache, numbness, or weakness. All other systems reviewed are negative, except as documented in HPI. 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 Smoking status: Never smoker Alcohol intake: never Substance use: never Lack of Transportation: No Lack of Food: Never True Current Housing: I Have Housing Concerned About Future Housing: No Difficulty Paying Gas/Electric Bills: No Difficulty Paying for Meds: No Currently Unemployed: No Education: Bachelor's Degree Difficulty w/ Childcare or Family Care: No Spiritual care concerns: No Comments At the time of my signature, I reviewed and agree with the nursing past medical, surgical, social, and family history. There is no relevant family history pertinent to the patient complaint. Exam Narrative: GENERAL: This is a well-nourished, well-developed patient, in no apparent distress. HEAD: normocephalic, atraumatic. Reports a frontal sinus tenderness on palpation EYES: PERRL. Sclera clear/white. Vision is grossly intact. EARS: External ears normal, auditory canals clear and without drainage, TMs normal without perforation. Hearing gross
[2022-09-24 12:36] VITALS: BP 139/86; PULSE 84; RESP 16; TEMP 36.2; O2SAT 99
== END 2022-09-24 13:09 | disposition home or self-care (01) ==
PROVIDERS: Emergency Provider Nurse Practitioner Family
DX: J32.9 Chronic sinusitis, unspecified (principal); I10 Essential (primary) hypertension; E78.5 Hyperlipidemia, unspecified
CPT/HCPCS: 99213; G0463

== ENCOUNTER 2023-06-18 15:49 | Emergency (ER) | payer MEDICARE, OTHER, SELFPAY ==
--- NOTE | ~2023-06-18 | US_ITS ---
EXAMINATION: US venous doppler LE RT DATE: 06/18/2023 18:05 INDICATION: Right lower limb swelling. TECHNIQUE: Grayscale ultrasound images without and with compression and Doppler ultrasound images of the right lower extremity veins were obtained. COMPARISON: None. FINDINGS: The visualized portions of right common femoral vein, profunda (deep) femoral vein, femoral vein, pop liteal vein, peroneal veins, posterior tibial veins, and greater saphenous vein outflow are patent. IMPRESSION: 1. No deep venous thrombosis. Reviewed, dictated and finalized at location E. H PRESS OPERATOR
--- NOTE | ~2023-06-18 | XR_ITS ---
EXAMINATION: XR foot RT min 3V DATE: 06/18/2023 18:41 INDICATION: Right foot pain and redness. TECHNIQUE: 3 views of right foot were obtained. COMPARISON: None. FINDINGS: Bone alignment is normal. No fracture. There is mild osteoarthritis of some of the interpha langeal joints. There is an enthesophyte at plantar aspect of calcaneal tuberosity. IMPRESSION: 1. Mild polyarticular osteoarthritis. Reviewed, dictated and finalized at location E. LANCE WEB DESIGNER
[2023-06-18 15:51] VITALS: BP 148/74; PULSE 83; RESP 83; TEMP 36.5; O2SAT 97
--- NOTE | 2023-06-18 18:46 | ED.EXTPRO ---
HPI - Extremity Problem General Chief complaint: Extremity Problem,Nontraumatic Stated complaint: Swollen ankle Time Seen by Provider: 06/18/23 16:35 History of Present Illness HPI Narrative: Patient is a 73-year-old male presenting with right foot pain. States that for the last week or 2 he has had a lot of pain at the base of his second toe. States that there is a small area of some redness. States that ambulating on it makes the pain much worse. He has been using ibuprofen which does provide relief. Over the last couple days his right ankle has been swollen so his family became concerned and brought him in for evaluation. States that the swelling has significantly improved. Denies recent injuries. No chest pain or shortness of breath. No fevers or chills. No further complaints. Related Data Home Medications Medication Instructions Recorded Confirmed cetirizine 5 mg-pseudoephedrine ER 1 tablet PO DAILY 06/28/22 09/24/22 120 mg tablet,extended release,12hr (Zyrtec-D) fluticasone propionate 50 1 spray intranasal DAILY 06/28/22 09/24/22 mcg/actuation nasal spray,suspension losartan 50 mg tablet 50 mg PO DAILY 06/28/22 09/24/22 montelukast 10 mg tablet 10 mg PO HS 06/28/22 09/24/22 simvastatin 40 mg tablet 40 mg PO DAILY 06/28/22 09/24/22 Allergies Allergy/AdvReac Type Severity Reaction Status Date / Time No Known Allergies Allergy Verified 06/18/23 15:55 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 Smoking status: Never smoker Alcohol intake: never Substance use: never Lack of Transportation: No Lack of Food: Never True Current Housing: I Have Housing Concerned About Future Housing: No Difficulty Paying Gas/Electric Bills: No Difficulty Paying for Meds: No Currently Unemployed: No Education: Bachelor's Degree Difficulty w/ Childcare or Family Care: No Spiritual care concerns: No Exam Narrative: GENERAL: Well-appearing, no acute distress, pleasant and cooperative HEAD: Normocephalic, atraumatic. EYES: PERRLA and EOMI. ENT: Grossly unremarkable NECK: Supple. CHEST: No respiratory distress. HEART: Regular rate and rhythm ABDOMEN: Nondistended EXTREMITIES: Tender with mild erythema at the base of the second toe on the right foot, DP pulses 2+ bilaterally, brisk cap refill; pitting edema around the right ankle that does not extend into the calf SKIN: Warm, dry NEURO: No focal deficits. Alert and oriented x3. PSYCH: Normal mood and affect. Course Vital Signs Vital signs: Vital Signs Temperature 97.7 F 06/18/23 15:51 Pulse Rate 83 06/18/23 15:51 Respiratory Rate 83 H 06/18/23 15:51 Blood Pressure 148/74 H 06/18/23 15:51 Pulse Oximetry 97 06/18/23 15:51 Oxygen Delivery Room Air 06/18/23 15:51 Temperature 97.7 F 06/18/23 15:51 Pulse Rate 83 06/18/23 15:51 Respiratory Rate 83 H 06/18/23 15:51 Blood Pressure 148/74 H 06/18/23 15:51 Pulse Oximetry 97 06/18/23 15:51 Oxygen Delivery Room Air 06/18/23 15:51 MDM - Extremity (Nontraumatic) MDM Narrative Medical decision making narrative: 73-year-old male presenting with right foot pain. Vitals stable. Exam remarkable for the above. Doppler of the
== END 2023-06-18 19:36 | disposition home or self-care (01) ==
PROVIDERS: Emergency Provider Emergency Medicine
DX: L03.115 Cellulitis of right lower limb (principal); I10 Essential (primary) hypertension; E78.5 Hyperlipidemia, unspecified
CPT/HCPCS: 73630; 93971; 99284

== ENCOUNTER 2024-01-02 10:46 | Emergency (ER) | payer MEDICARE, OTHER, SELFPAY ==
[2024-01-02 10:55] VITALS: BP 145/80; PULSE 66; RESP 16; TEMP 36.8; O2SAT 97
--- NOTE | 2024-01-02 11:00 | ED.URI ---
HPI - URI/Sore Throat General Chief Complaint: Upper Respiratory Infection Stated Complaint: Sinus Infection Symptoms Time Seen by Provider: 01/02/24 11:00 Source: patient, RN notes reviewed and old records reviewed Mode of arrival: ambulatory Limitations: no limitations History of Present Illness HPI Narrative: 73-year-old male to [facility] for complaint of nasal congestion, fatigue, cough, sinus pain and pressure for over 2 weeks. Patient was seen in urgent care in [place] while traveling on December 16 and diagnosed with a sinus infection. Patient was placed on 10 days of doxycycline and experienced little relief. Patient denies fever, ear complaints, nausea, dizziness, allergies, shortness of breath. Patient able to tolerate fluids by mouth. Patient hypertensive in triage. Patient appears acutely ill and uncomfortable in exam room. Respirations even and non labored. No acute distress. Related Data Home Medications Medication Instructions Recorded Confirmed losartan 50 mg tablet 50 mg PO DAILY 06/28/22 01/02/24 montelukast 10 mg tablet 10 mg PO HS 06/28/22 01/02/24 simvastatin 40 mg tablet 40 mg PO DAILY 06/28/22 01/02/24 tamsulosin 0.4 mg capsule 0.4 mg PO DAILY 01/02/24 01/02/24 Allergies Allergy/AdvReac Type Severity Reaction Status Date / Time No Known Allergies Allergy Verified 06/18/23 15:55 Review of Systems Review of Systems: All systems reviewed & are unremarkable except as noted in HPI and below Constitutional: Constitutional: Reports as per HPI, Denies fever(s) and Reports lethargy Eyes: Eyes: Reports no additional eye complaints ENT: Reports as per HPI, Reports headache(s), Reports nasal congestion, Reports nasal discharge, Reports sinus pain and Reports sinus pressure Cardiovascular: Cardiovascular: Reports no additional cardiovascular complaints, Denies chest pain and Denies dyspnea Respiratory: Respiratory: Reports no additional respiratory complaints, Reports cough and Denies dyspnea Musculoskeletal: Musculoskeletal: Reports no additional musculoskeletal complaints Neurologic: Reports system reviewed and no additional complaints, except as documented Psychiatric: Psychiatric: Reports no additional psychiatric complaints PMF Past Medical History Medical History Essential hypertension Hyperlipidemia Nephrolithiasis Overweight (BMI 25.0-29.9) Seasonal allergies Surgical History Surgical History History of surgery of head Family History Family History Mother Cerebrovascular accident Father Acute myocardial infarction Social History 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 Smoking status: Never smoker Alcohol intake: never Substance use: never Lack of Transportation: No Lack of Food: Never True Current Housing: I Have Housing Concerned About Future Housing: No Difficulty Paying Gas/Electric Bills: No Difficulty Paying for Meds: No Currently Unemployed: No Education: Bachelor's Degree Difficulty w/ Childcare or Family Care: No Spiritual care concerns: No Comments At the time of my signature, I reviewed and agree with the nursing past medical, surgical, social, and family history. There is no relevant family history pertinent to the patient complaint. Exam Const: General: cooperative, no acute distress, alert, ill appearing acutely, tired appearing, uncomfortable, well groomed and well nourished Nutritional Appearance: well nourished Orientation/consciousness: patient oriented x3 Limitations: no limitations HENMT: Head: normal to inspection Ears: external ears normal Face/Nose/Sinus: Normal external nose present, Abnormal mucous membranes
== END 2024-01-02 11:38 | disposition home or self-care (01) ==
PROVIDERS: Emergency Provider Nurse Practitioner Family; PCP Student in an Organized Health Care Education/Training Program
DX: J32.0 Chronic maxillary sinusitis (principal); I10 Essential (primary) hypertension; E78.5 Hyperlipidemia, unspecified
CPT/HCPCS: 99213; G0463

== ENCOUNTER 2024-04-24 14:39 | Outpatient (CLI) | payer MEDICARE, OTHER, SELFPAY ==
--- NOTE | ~2024-04-24 | XR_ITS ---
XR abdomen/kub 1V Ordering provider: Liset Maurice APRN History: . URETAL STONE WITH HYDROPHROSIS . Comparison: None. FINDINGS: BOWEL: Nonobstructive bowel gas pattern. ORGANOMEGALY: None. SIGNIFICANT PATHOLOGIC CALCIFICATIONS: Multiple stones in the right and left kidneys. Possible stone in the left renal pelvis or upper ureter. Clinical correlation advised. OTHER: Dextroscoliosis with degenerative changes of the spine. Bilateral hip osteoarthritic images. N o free air is seen under the diaphragm. IMPRESSION: NO ACUTE ABDOMINAL FINDINGS. Bilateral kidney stones. Reviewed, dictated and finalized at location A.
== END 2024-04-24 14:40 | disposition home or self-care (01) ==
PROVIDERS: PCP Student in an Organized Health Care Education/Training Program; Visit Provider Nurse Practitioner
DX: N20.0 Calculus of kidney (principal)
CPT/HCPCS: 74018

== ENCOUNTER 2024-08-12 07:38 | Emergency (ER) | payer MEDICARE, OTHER, SELFPAY ==
--- NOTE | ~2024-08-12 | XR_ITS ---
XR chest 2V DATE: 08/12/2024 10:36 INDICATION: Upper respiratory infection TECHNIQUE: PA and lateral views COMPARISON: 01/12/2022 portable AP chest FINDINGS: No pulmonary infiltrate or consolidation, pleural effusion or pulmonary vascular congestion or pneumothorax is detected. Thoracolumbar dextroscoliosis and degenerative spurring. Osteopenia. IMPRESSION: No active cardiopulmonary disease Reviewed, dictated and finalized at location A. [employer]
[2024-08-12 07:41] VITALS: BP 138/57; PULSE 89; RESP 16; TEMP 36.4; O2SAT 97
--- NOTE | 2024-08-12 10:54 | ED_ITS ---
HPI - URI/Sore Throat General Chief Complaint: Upper Respiratory Infection Stated Complaint: cough Time Seen by Provider: 08/12/24 10:16 History of Present Illness HPI Narrative: 74-year-old male with no pertinent past medical history presenting to the emergency department for evaluation of URI symptoms including cough and congestion. Patient did have sick contacts over the holidays with 2 family members that had cold. Patient denies any fever, chills, chest pain, shortness a breath aside from when he coughs, no abdominal pain, back pain, GI distress, diarrhea. He was otherwise in his normal state of health. Has taken some cough drops at home at night and a Zyrtec this morning without any relief of his cough. Cough is nonproductive. Patient was otherwise in his normal state of health. Related Data Home Medications ?Medication ?Instructions ?Recorded ?Confirmed ?Last Taken ?Type losartan 50 mg tablet 50 mg PO DAILY 06/28/22 01/02/24 06/28/22 07:00 History montelukast 10 mg tablet 10 mg PO HS 06/28/22 01/02/24 06/27/22 21:00 History simvastatin 40 mg tablet 40 mg PO DAILY 06/28/22 01/02/24 06/28/22 07:00 History tamsulosin 0.4 mg capsule 0.4 mg PO DAILY 01/02/24 01/02/24 Unknown History Allergies Allergy/AdvReac Type Severity Reaction Status Date / Time No Known Allergies Allergy Verified 06/18/23 15:55 Review of Systems Review of Systems: As reviewed above in HPI [facility] Past Medical History Medical History Overweight (BMI 25.0-29.9) Seasonal allergies Essential hypertension Hyperlipidemia Nephrolithiasis Surgical History Surgical History History of surgery of head Family History Family History Mother Cerebrovascular accident Father Acute myocardial infarction Social History 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 Smoking status: Never smoker Alcohol intake: never Substance use: never Lack of Transportation: No Lack of Food: Never True Current Housing: I Have Housing Concerned About Future Housing: No Difficulty Paying Gas/Electric Bills: No Difficulty Paying for Meds: No Currently Unemployed: No Education: Bachelor's Degree Difficulty w/ Childcare or Family Care: No Spiritual care concerns: No Exam Narrative: GENERAL: [Well-appearing, well-nourished, and in no acute distress.] Coughing throughout the examination HEAD: [Normocephalic, atraumatic.] EYES: [PERRLA and EOMI.] ENT: Nares clear, no rhinorrhea or epistaxis. Mucous membranes moist. NECK: Supple. CHEST: [Clear to auscultation. No respiratory distress.] HEART: [Regular rate and rhythm]. No murmur heard. [Normal peripheral pulses.] ABDOMEN: [Soft, nondistended], [nontender], [No rigidity or guarding] EXTREMITIES: Normal range of motion. [No edema.] SKIN: Warm, dry, no rash. NEURO: [No focal deficits]. Alert and oriented [x3.] PSYCH: [Normal mood and affect.] Course Vital Signs Vital signs: Vital Signs Temperature 36.4 C L 08/12/24 07:41 Pulse Rate 89 08/12/24 07:41 Respiratory Rate 16 08/12/24 07:41 Blood Pressure 138/57 L 08/12/24 07:41 Pulse Oximetry 97 08/12/24 07:41 Oxygen Delivery Room Air 08/12/24 07:41 Temperature 36.4 C L 08/12/24 07:41 Pulse Rate 89 08/12/24 07:41 Respiratory Rate 16 08/12/24 07:41 Blood Pressure 138/57 L 08/12/24 07:41 Pulse Oximetry 97 08/12/24 07:41 Oxygen Delivery Room Air 08/12/24 07:41 MDM - URI/Sore Throat MDM Narrative Medical decision making narrative: 74-year-old male presenting to the emergency department for evaluation of a cough, congestion. Patient has signs symptoms of an upper respiratory infection. He has clear lung sounds bilaterally without any accessory muscle use or tachypnea. No fever, hypoxia or tachypnea. Blood pressure within normal range. Patient does have sick contacts which raises suspicion for COVID flu or RSV exposure. Low likelihood for pneumonia. Low suspicion other acute process such as bronchitis, mycoplasma, asthma or GERD as the cause of his acute cough. Two-view chest x-ray and COVID swabs were obtained. He was given guaifenesin codeine for cough suppression and symptom control. I independently reviewed patient's chest x-ray and I do not appreciate any consolidations, pneumothorax, infiltrates or any evidence of a pneumonia. Confirmed by radiology read. Patient did test positive for COVID which does explain his symptomatology. He is stable for discharge home at this time given that he is afebrile, not hypoxic, otherwise well-appearing. Medical Records Attestation: I reviewed the patient's medical records. Lab Data Attestation: I reviewed the patient's lab results. Labs: Lab Results 08/12/24 Range/Units 10:21 Influenza A (RT-PCR) Negative (Negative) Influenza B (RT-PCR) Negative (Negative) SARS-CoV-2 RNA (RT-PCR) Positive A (Negative) Imaging Data Attestation: I personally reviewed and interpreted this imaging study as follows: My impression: Impressions Chest X-Ray 08/12/24 10:38 IMPRESSION: No active cardiopulmonary disease Discharge Plan Discharge Clinical Impression: COVID, Upper respiratory infection Patient Disposition: Home, Self-Care Condition: Stable Instructions: Antibiotic Form, Viral Syndrome (ED), COVID-19 (Coronavirus Disease 2019) (ED) Additional Instructions: He did test positive for COVID, take [id number] remedies at your local pharmacy including Tylenol, ibuprofen for any fever pain, cough suppressing medications, decongestants. Return with any new or worsening concerns otherwise follow-up with regular doctor. Wear a mask in public places and if you are febrile or coughing. Patient Language: Malian Prescriptions: No Action tamsulosin 0.4 mg capsule 0.4 mg PO DAILY methylprednisolone [Methylpred DP] 4 mg tablets,dose pack See Rx Instructions .ROUTE .COMPLEX Qty: 21 0RF Rx Instructions: for 6 days amoxicillin-pot clavulanate 875-125 mg tablet 1 tablet PO Q12H Qty: 20 0RF simvastatin 40 mg tablet 40 mg PO DAILY losartan 50 mg tablet 50 mg PO DAILY montelukast 10 mg tablet 10 mg PO HS Follow-up/Referrals: Helene,DO Inderjit [Primary Care Provider] - Time of Disposition: 11:12
[2024-08-12 11:06] LABS: Influenza A QL RT-PCR Negative (Negative); Influenza B QL RT-PCR Negative (Negative); SARS-CoV-2 RNA PCR Positive (Negative)
[2024-08-12 11:26] VITALS: BP 129/75; PULSE 93; RESP 24; TEMP 36.6; O2SAT 96
[2024-08-12] MEDS: guaiFENesin/CODEINE (*CRX) 200/20 MG 10 ML SYRUP PO (11:40)
--- OUTSIDE RECORDS SUMMARY | 2024-08-19 06:37 | XMS_ITS | Encounter Summary ---
Author Organization [facility] Address [address] [place] [address]. [place] [address] [place] [address] Care Team Providers Care Blow Torch Burner Name Role Phone Inderjit Narayan DO Primary Care Provider + Encounter Details Date Type Department Care Team (Latest Contact Info) Description 03/22/2024 Travel Social History Tobacco Use Types Packs/Day Years Used Date Smoking Tobacco: Never Passive Smoke Exposure: Never Smokeless Tobacco: Never Alcohol Use Standard Drinks/Week Comments Never 0 (1 standard drink = 0.6 oz pur e alcohol) PHQ-2 Answer Date Recorded Patient Health Questionnaire-2 Score 0 11/17/2023 Sex and Gender Information Value Date Recorded Sex Assigned at Not on file Legal Sex Male 10:29 AM GENERAL EXPEDITOR Gender Identity Not on file Sexual Orientation Not on file Occupation Industry Job Start Date Job End Date Not on file Not on file Not on file Not on file documented as of this encounter Plan of Treatment Upcoming Encounters Date Type Department Care Team (Late st Contact Info) Description 08/22/2024 8:00 AM GENERAL EXPEDITOR Laboratory Only [facility] Family & Internal Medicine - [place] [id number] [place] [address] Inderjit Narayan DO [address] [place] [id number] 09/08/2024 2:30 PM GENERAL EXPEDITOR Appointment [facility] [address] [place] [address] Guido Rider, DO [address] [facility] [address] [place] [address] 10/05/2024 3:00 PM GENERAL EXPEDITOR Appointment [facility] Respiratory Therapy [address] [address] Guido Rider, DO [address] [facility] [address] [place] [address] 10/13/2024 10:30 AM GENERAL EXPEDITOR Office Visit [facility] [address] [facility] [place] [address] Guido Rider, DO [address] [facility] [address] [place] [address] 01/08/2025 2:20 PM CDT Office Visit [facility] Medical [facility] Family & Internal Medicine [address] [address] Inderjit Narayan DO [address] [place] [id number] documented as of this encounter Visit Diagnoses Not on filedocumented in this encounter Care Teams Blow Torch Burner Relationship Specialty Start Date End Date Inderjit Narayan DO [address] [place] [id number] PCP - General 12/19/22 documented as of this encounter
--- OUTSIDE RECORDS SUMMARY | 2024-08-19 06:37 | XMS_ITS | Encounter Summary ---
Author Organization [facility] Address [address] [place] [address] Care Team Providers Care Graduate Advisor Name Role Phone Landry Fernandez DO Primary Care Provider [phone] Reason for Visit * Reason Comments Cough Encounter Details Date Type Department Care Team (Late st Contact Info) Description 04/19/2016 10:45 AM CDT Office Visit [facility] AT [address] [phone] Upper respiratory tract infection, unspecified type (Primary Dx) Social History Tobacco Use Types Packs/Day Years Used Date Smoking Tobacco: Never Sex and Gender Information Value Date Recorded Sex Assigned at Not on file Gender Identity Not on file Sexual Orientation Not on file documented as of this encounter Last Filed Vital Signs Vital Sign Reading Time Taken Comments Blood Pressure 130/70 04/19/2016 11:11 AM CDT Pulse 66 04/19/2016 11:11 AM CDT Temperature 36.8 ??C (98.2 ??F) 04/19/2016 11:11 AM C DT Respiratory Rate 16 04/19/2016 11:11 AM CDT Oxygen Saturation 96% 04/19/2016 11:11 AM CDT Inhaled Oxygen Concentration - - Weight 93.4 kg (206 lb) 04/19/2016 11:11 AM CDT Height 180.3 cm (5' 11 ) 04/19/2016 11:11 AM CDT Body Mass Index 28.73 04/19/2016 11:11 AM CDT documented in this encounter Patient Instructions * Patient Instructions* Jayshree Pham APRN-CNP - 04/19/2016 11:11 AM CDT Images from the original note were not included. Upper Respiratory Infection LICENSED CLINICIAN: An upper respiratory infection is also called a common cold. It can affect your nose, throat, ears,and sinuses. Common signs and symptoms include the following: Cold symptoms are usually worst for the first 3 to5 days. You may have any of the following: ?? Runny or stuffy nose ?? Sneezing and coughing ?? Sore throat or hoarseness ?? Red, watery, and sore eyes ?? Fatigue ?? Chills and fever ?? Headache, body aches, or sore muscles Seek care immediately if: ?? You have severe headaches, a stiff neck, or eye pain when you look at bright light. ?? You have chest pain or trouble breathing. Contact your healthcare provider if: ?? You have a fever over 102??F (39??C). ?? Your sore throat gets worse or you see white or yellow spots in your throat. ?? Your symptoms get worse after 3 to 5 days or your cold is not better in 14 days. ?? You have a rash anywhere on your skin. ?? You have large, tender lumps in your neck. ?? You have thick, green or yellow drainage from your nose. ?? You cough up thick yellow, green, wooten, or bloody mucus. ?? You have vomiting for more than 24 hours and cannot keep fluids down. ?? You have a bad earache. ?? You have questions or concerns about your condition or care. Treatment for a cold: There is no cure for the common cold. Colds are caused by viruses and do not get better with antibiotics. Most people get better in 7 to 14 days. You may continue to cough for 2to 3 weeks. The following may help decrease your symptoms: ?? Decongestants help reduce nasal congestion and help you breathe more easily. If you take decongestant pills, they may make you feel restless or not able to sleep. Do not use decongestant sprays for more than a few days. ?? Cough suppressants help reduce coughing. Ask your healthcare provider which type of cough medicine is best for you. ?? NSAIDs , such as ibuprofen, help decrease swelling, pain, and fever. NSAIDs can cause stomach bleeding or kidney problems in certain people. If you take blood thinner medicine, always ask your healthcare provider if NSAIDs are safe for you. Always read the medicine label and follow directions. ?? Acetaminophen decreases pain and fever. It is available without a doctor's order. Ask how much to take and how often to take it. Follow directions. Acetaminophen can cause liver damage if not taken correctly. Manage your cold: ?? Use a humidifier or vaporizer. Use a cool mist humidifier or a vaporizer to increase air moisture in your home. This may make it easier for you to breathe and help decrease your cough. ?? Gargle with warm salt water to help your sore throat feel better. Make salt water by adding ?? teaspoon salt to 1 cup warm water. You may also suck on hard candy or throat lozenges. You may use a sore throat spray. ?? Use saline nasal drops to help relieve your congestion. ?? Drink liquids as directed. Liquids help keep your air passages moist and help you cough up mucus. Ask how much liquid to drink each day and which liquids are best for you. ?? Rest as much as possible. Slowly start to do more each day. Prevent spreading your cold to others: ?? Try to stay away from other people during the first 2 to 3 days of your cold when it is more easily spread. ?? Do not share food or drinks. ?? Do not share hand towels with household members. ?? Wash your hands often, especially after you blow your nose. Turn away from other people and cover your mouth and nose with a tissue when you sneeze or cough. Follow up with your healthcare provider as directed: Write down your questions so you remember to ask them during your visits. ?? 2016 [employer]. Information is for End User's use only and may not be sold, redistributed or otherwise used for commercial purposes. All illustrations and images included in CareNotes?? are the copyrighted property of [employer] or [employer]. The above information is an in school suspension aide only. It is not intended as medical advice for individual conditions or treatments. Talk to your doctor, nurse or pharmacist before following any medical regimen to see if it is safe and effective for you. documented in this encounter Progress Notes * Jayshree Pham APRN-CNP - 04/19/2016 11:13 AM CDT [facility] Chief Complaint Patient presents with ??? Cough SUBJECTIVE: HPI 4 DAYS COUGHING, COLD AND SWEATS, OCCASIONAL SOB, PND No past medical history on file. No current outpatient prescriptions on file prior to visit. No current facility-administered medications on file prior to visit. No past surgical history on file. History Social History ??? Marital Status: Spouse Name: N/A Number of Children: N/A ??? Years of Education: N/A Occupational History ??? Not on file. Social History Main Topics ??? Smoking status: Never Smoker ??? Smokeless tobacco: Not on file ??? Alcohol Use: Not on file ??? Drug Use: Not on file ??? Sexual Activity: Not on file Other Topics Concern ??? Not on file Social History Narrative ??? No narrative on file No family history on file. Current Outpatient Prescriptions Medication Sig Dispense Refill ??? fluticasone propionate (FLONASE) 50 MCG/ACT nasal spray [place] 2 Sprays into each nostril once daily ??? omeprazole (PRILOSEC) 20 MG capsule Take 20 mg by mouth daily before breakfast ??? losartan (COZAAR) 50 MG tablet Take 50 mg by mouth once daily ??? simvastatin (ZOCOR) 20 MG tablet Take 20 mg by mouth at bedtime ??? azithromycin (ZITHROMAX) 250 mg tablet 2 tablets day 1, then 1 tablet daily for 4 days 1 Kit 0 No current facility-administered medications for this visit. No Known Allergies REVIEW OF SYSTEMS: Review of Systems Constitutional: Positive for chills, malaise/fatigue and diaphoresis. HENT: Positive for congestion. Eyes: Negative. Respiratory: Positive for cough, sputum production and shortness of breath. Cardiovascular: Negative. Gastrointestinal: Negative. Genitourinary: Negative. Musculoskeletal: Negative. Skin: Negative. Neurological: Positive for headaches. Endo/Heme/Allergies: Negative. Psychiatric/Behavioral: Negative. OBJECTIVE: General appearance: alert, well appearing, and in no distress. BP 130/70 mmHg Pulse 66 Temp(Src) 98.2 ??F (Oral) Resp 16 Wt 93.441 kg (206 lb) BMI 28.74kg/m2 Physical Exam Constitutional: He is oriented to person, place, and time and well-developed, well-nourished, and in no distress. HENT: Head: Normocephalic and atraumatic. Left Ear: External ear normal. Nose: Mucosal edema and rhinorrhea present. RIGH EAR FILLED WITH CERUMEN, UNABLE TO VISUALIZE tm Eyes: Pupils are equal, round, and reactive to light. Neck: Normal range of motion. Cardiovascular: Normal rate, regular rhythm and normal heart sounds. Pulmonary/Chest: Effort normal and breath sounds normal. Abdominal: Soft. Bowel sounds are normal. Musculoskeletal: Normal range of motion. Neurological: He is alert and oriented to person, place, and time. Gait normal. Skin: Skin is warm and dry. Psychiatric: Affect normal. ASSESSMENT: No results found for this visit on 04/19/16. Encounter Diagnosis Name Primary? Upper respiratory tract infection, unspecified type Yes PLAN: Orders Placed This Encounter ??? azithromycin (ZITHROMAX) 250 mg tablet Si tablets day 1, then 1 tablet daily for 4 days Dispense: 1 Kit Refill: 0 documented in this encounter Plan of Treatment Not on file documented as of this encounter Visit Diagnoses Diagnosis Upper respiratory tract infection, unspecified type- Primary documented in this encounter Care Teams Graduate Advisor Relationship Specialty Start Date End Date Landry Fernandez DO PCP - General Family Medicine 04/19/16 documented as of this encounter
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
--- OUTSIDE RECORDS SUMMARY | 2024-08-19 06:37 | XMS_ITS | Encounter Summary ---
Author Organization [facility] Address [address] [place] [address]. [place] [address] [place] [address] Care Team Providers Care Resort Housekeeper Name Role Phone Inderjit Narayan DO Primary Care Provider + Reason for Visit * Reason Onset Date Comments Lab Order 06/08/2024 Encounter Details Date Type Department Care Team (Late st Contact Info) Description 06/08/2024 Telephone [facility] Family & Internal Medicine [facility] [address] [place] [address] Inderjit Narayan DO [address] [place] [address] Lab Order Social History Tobacco Use Types Packs/Day Years Used Date Smoking Tobacco: Never Passive Smoke Exposure: Never Smokeless Tobacco: Never Alcohol Use Standard Drinks/Week Comments Never 0 (1 standard drink = 0.6 oz pur e alcohol) PHQ-2 Answer Date Recorded Patient Health Questionnaire-2 Score 0 11/17/2023 Sex and Gender Information Value Date Recorded Sex Assigned at Not on file Legal Sex Male 10:29 AM LAND AGENT Gender Identity Not on file Sexual Orientation Not on file Occupation Industry Job Start Date Job End Date Not on file Not on file Not on file Not on file documented as of this encounter Progress Notes * DO Carson Mcdonald 06/08/2024 1:44 PM CDT PSA was last done on 07/19/23; can't do any sooner than 07/20/24. I'd recommend scheduling his OV for after that date and if he wants labs to be done prior to that OV we can do so. * Prachi Mays - 06/08/2024 7:30 AM CDT Patient saw his Urologist yesterday and he suggests he get a PSA done. Please call to discuss. [phone] documented in this encounter Plan of Treatment Upcoming Encounters Date Type Department Care Team (Late st Contact Info) Description 08/22/2024 8:00 AM LAND AGENT Laboratory Only [facility] Family & Internal Medicine - [place] [address] [place] [address] Inderjit Narayan DO [address] [place] [address] 09/08/2024 2:30 PM LAND AGENT [facility] [address] [place] [address] Guido Rider DO 3 [facility] [address] [place] [address] 10/05/2024 3:00 PM LAND AGENT Appointment [facility] [place] [address] Guido Rider DO 3 [facility] [address] [place] [address] 10/13/2024 10:30 AM LAND AGENT Office Visit [facility] Multispecialty Care - [facility] [address] [facility] [address] [place] [address] Guido Rider DO [address] [facility] [address] [place] [address] 01/08/2025 2:20 PM CDT Office Visit [facility] Family & Internal Medicine [facility] [address] [place] [address] [place] [address] [place] [address] documented as of this encounter Visit Diagnoses Not on filedocumented in this encounter Care Teams Resort Housekeeper Relationship Specialty Start Date End Date Inderjit Narayan DO [address] [place] [phone] PCP - General 12/19/22 documented as of this encounter
--- OUTSIDE RECORDS SUMMARY | 2024-08-19 06:37 | XMS_ITS | Patient Health Summary ---
Author Organization [facility] Address [address] [place] [address] Care Team Providers Care Hogshead Cooper Name Role Phone Landry Fernandez DO Primary Care Provider Note from [facility],non-owned Affiliates and Associated Physician Practices is amultiple site organization consisting of ambulatory clinics and hospital sitesin [place], [place], [place] and [place]. This disclosure is being madepursuant to the Care Everywhere program and may not contain all information available regarding this patient. Last updated 18.[facility] Allergies * Methylprednisolone(Rash) -Medium Criticality * Sulfamethoxazole W-Trimethoprim(Rash) -Medium Criticality Medications * Be aware that medications may not be up to date on this document. Alwaysverify current medications with the patient. * fluticasone propionate (FLONASE) 50 MCG/ACT nasal spray [place] 2 Sprays into each nostril once daily * omeprazole (PRILOSEC) 20 MG capsule Take 20 mg by mouth daily before breakfast * simvastatin (ZOCOR) 20 MG tablet Take 20 mg by mouth at bedtime * Olmesartan Medoxomil (BENICAR PO) * Coenzyme Q10 (COQ-10 PO) * Cetirizine-Pseudoephedrine (ZYRTEC-D PO) * Cholecalciferol (VITAMIN D3 PO) Social History Tobacco Use Types Packs/Day Years Used Date Smoking Tobacco: Never Smokeless Tobacco: Never Sex and Gender Information Value Date Recorded Sex Assigned at Not on file Gender Identity Not on file Sexual Orientation Not on file Last Filed Vital Signs Vital Sign Reading Time Taken Comments Blood Pressure 110/70 06/20/2019 10:06 AM DETAIL DRAFTER Pulse 80 06/20/2019 10:06 AM DETAIL DRAFTER Temperature 36.8 ??C (98.3 ??F) 06/20/2019 10:[address] Respiratory Rate 17 06/20/2019 10:06 AM DETAIL DRAFTER Oxygen Saturation 96% 06/20/2019 10:06 AM DETAIL DRAFTER Inhaled Oxygen Concentration - - Weight 92.5 kg (204 lb) 06/20/2019 10:06 AM DETAIL DRAFTER Height 180.3 cm (5' 11 ) 06/20/2019 10:06 AM DETAIL DRAFTER Body Mass Index 28.45 06/20/2019 10:06 AM DETAIL DRAFTER Care Teams Hogshead Cooper Relationship Specialty Start Date End Date Landry Fernandez DO PCP - General Family Medicine 04/19/16
--- OUTSIDE RECORDS SUMMARY | 2024-08-19 06:37 | XMS_ITS | Encounter Summary ---
Author Organization [facility] Address [address] [place] [address]. [place] [address] [place] [address] Care Team Providers Care Milk Receiver Tank Truck Name Role Phone Luiz Smalls DO Primary Care Provider + Reason for Visit * Reason Onset Date Comments Results 03/15/2024 CT Radiology Results 03/15/2024 Encounter Details Date Type Department Care Team (Late st Contact Info) Description 03/15/2024 Telephone [facility] Family & Internal Medicine [facility] [address] [place] [address] Luiz Smalls DO [address] [place] [address] Results (CT); Radiology Results Social History Tobacco Use Types Packs/Day Years Used Date Smoking Tobacco: Never Passive Smoke Exposure: Never Smokeless Tobacco: Never Alcohol Use Standard Drinks/Week Comments Never 0 (1 standard drink = 0.6 oz pur e alcohol) PHQ-2 Answer Date Recorded Patient Health Questionnaire-2 Score 0 11/17/2023 Sex and Gender Information Value Date Recorded Sex Assigned at Not on file Legal Sex Male 10:29 AM BIODIESEL OPERATIONS MANAGER Gender Identity Not on file Sexual Orientation Not on file Occupation Industry Job Start Date Job End Date Not on file Not on file Not on file Not on file documented as of this encounter Progress Notes * Luzi Smalls DO - 03/30/2024 3:25 PM CDTAddended by: LUIZ SMALLS on: 03/30/2024 03:25 PM Modules accepted: Orders * Luiz Smalls DO - 03/30/2024 3:25 PM CDT Will discontinue cultures; see OV from 03/30/24. * Edna Krishna MA - 03/30/2024 2:55 PM CDT Contacted [facility] respiratory department, they do no provide outpatient services to help patient's provide a sample. 03/30/2024 3:01 PM Spoke to mimeograph operator staff and requested to be transferred to Respiratory department. Phone line rang 4 and call was disconnected. 03/30/2024 2:58 PM Attempted to contact Respiratory department x2 no answer on line. 03/30/2024 2:56 PM * José Miguel Mack MD - 03/27/2024 12:34 PM CDT May need to call the hospital and see if respiratory therapy will help with the sampling. * Edna Krishna MA - 03/27/2024 12:23 PM CDT Patient reports appt with pulmonology isn't until June and is agreeable to referral to respiratory therapy. I am unable to find Respiratory therapy in [facility], would this be under another order? * José Miguel Mack MD - 03/23/2024 4:41 PM CDT In order to get a sample we may be able to refer to respiratory therapy, or we can refer to pulmonology. * Prachi Pulliam MA - 03/23/2024 8:45 AM CDT The patient states he has the container for the sputum culture. The patient states he is not able to produce the sample. He is wanting to know if there is an alternative way of getting the sample. The patient states he googled ways to get the sample. He states a tube can be placed down his throat and obtain a specimen that way. Please advise on if this is an option and how we should go about getting this done. * Jessica Farr - 03/23/2024 8:30 AM CDT Pt called in asking for Prachi to call him back. Please advise. * Prachi Pulliam MA - 03/22/2024 11:21 AM CDT Spoke with patient and informed him of orders being placed. The patient v/u and did not have questions at this time. * Luiz Smalls DO - 03/15/2024 8:33 AM CDTAddended by: LUIZ SMALLS on: 03/15/2024 08:33 AM Modules accepted: Orders * Luiz Smalls DO - 03/15/2024 8:32 AM CDT Ordered for hospital collection. * Mary Mercer MA - 03/15/2024 7:53 AM CDT ----- Message from Dr. Luiz Smalls sent at 03/14/2024 11:36 AM CDT ----- We will need to discuss these findings at next OV on 03/30/24. In the interim, I'd like pt to have PFT ordered, a referral to pulmonology, and I'd like to obtain cultures (can send back to me to order these). Cultures have to be done at the hospital. Patient called for results and informed. Understands instructions. [facility] a [facility] scheduled on [facility]. Will sent pulmonology referral. . /juliet robbins Please place culture orders. documented in this encounter Plan of Treatment Upcoming Encounters Date Type Department Care Team (Late st Contact Info) Description 08/22/2024 8:00 AM BIODIESEL OPERATIONS MANAGER Laboratory Only [facility] Family & Internal Medicine [facility] [address] [place] [address] Luiz Smalls DO [address] [place] [address] 09/08/2024 2:30 PM BIODIESEL OPERATIONS MANAGER Appointment [facility] [address] [place], [place] [id number] Guido iRder DO [address] [facility] [address] [place] [phone] 10/05/2024 3:00 PM BIODIESEL OPERATIONS MANAGER Appointment [facility] [address] [place] [address] Guido Rider DO [address] [facility] [address] [place] [address] 10/13/2024 10:30 AM BIODIESEL OPERATIONS MANAGER Office Visit [facility] Medical [facility] Multispecialty Care - [facility] [address] [facility] [address] [place] [address] Guido Rider, [address] [facility] [address] [place] [address] 01/08/2025 2:20 PM CDT Office Visit [facility] Family & Internal Medicine [facility] [address] [place] [address] Luiz Smalls DO [address] [place] [address] documented as of this encounter Visit Diagnoses Diagnosis Subacute cough- Primary Cough Abnormal CT scan of lung Other nonspecific abnormal finding of lung field documented in this encounter Care Teams Milk Receiver Tank Truck Relationship Specialty Start Date End Date Luiz Smalls DO [address] [place] [address] PCP - General 12/19/22 documented as of this encounter
--- OUTSIDE RECORDS SUMMARY | 2024-08-19 06:37 | XMS_ITS | Clinical Summary ---
Author Organization [facility] Address [address] [place] [address] Care Team Providers Care Corrosion Control Specialist Name Role Phone Landry Fernandez DO Primary Care Provider Source Comments [facility],non-owned Affiliates and Associated Physician Practices is amultiple site organization consisting of ambulatory clinics and hospital sitesin [place], [place], [place]. This disclosure is being madepursuant to the Care Everywhere program and may not contain all information available regarding this patient. Last updated 18.[facility] Allergies Active Allergy Reactions Criticality Noted Date Comments Methylprednisolone Rash Medium 07/12/2012 redness Sulfamethoxazole W-Trimethoprim Rash Medium 01/2010 Medications * Be aware that medications may not be up to date on this document. Alwaysverify current medications with the patient. Medication Sig Dispensed Refills Start Date End Date Status fluticasone propionate (FLONASE) 50 MCG/ACT nasal spray [place] 2 Sprays into each nostril once daily Active omeprazole (PRILOSEC) 20 MG capsule Take 20 mg by mouth daily before breakfast Active simvastatin (ZOCOR) 20 MG tablet Take 20 mg by mouth at bedtime Active Olmesartan Medoxomil (BENICAR PO) Active Coenzyme Q10 (COQ-10 PO) Active Cetirizine-Pseudoephe drine (ZYRTEC-D PO) Activ e Cholecalciferol (VITAMIN D3 PO) Active Social History Tobacco Use Types Packs/Day Years Used Date Smoking Tobacco: Never Smokeless Tobacco: Never Sex and Gender Information Value Date Recorded Sex Assigned at Not on file Gender Identity Not on file Sexual Orientation Not on file Last Filed Vital Signs Vital Sign Reading Time Taken Comments Blood Pressure 110/70 06/20/2019 10:06 AM SEWER PIPE CLEANER Pulse 80 06/20/2019 10:06 AM SEWER PIPE CLEANER Temperature 36.8 ??C (98.3 ??F) 06/20/2019 10:[address] Respiratory Rate 17 06/20/2019 10:06 AM SEWER PIPE CLEANER Oxygen Saturation 96% 06/20/2019 10:06 AM SEWER PIPE CLEANER Inhaled Oxygen Concentration - - Weight 92.5 kg (204 lb) 06/20/2019 10:06 AM SEWER PIPE CLEANER Height 180.3 cm (5' 11 ) 06/20/2019 10:06 AM SEWER PIPE CLEANER Body Mass Index 28.45 06/20/2019 10:06 AM SEWER PIPE CLEANER Plan of Treatment Health Maintenance Due Date Last Done Comments COLOGUARD (AGES 45-75) - COL ON CA SCREENING 1952 COLON MONITORING 1952 COLONOSCOPY - COLON CA SCREENING 1952 CT COLONOGRAPHY - COLON CA SCREENING 1952 Colorectal Cancer Screening 1952 FIT - COLON CA SCREENING 1952 FLEX SIG - COLON CA SCREENING 1952 MEDICARE AWV ? 12 MONTHS 1952 HEPATITIS C SCREENING 03/22/1970 DTAP/TDAP/TD VACCINES (1 - Tdap) 1971 ZOSTER VACCINE (1 of 2) 2002 PNEUMOCOCCAL VACCINE 50+ (1 of 1 - PCV) 2017 SCREENING FOR DIABETES 11/11/2018 DEPRESSION SCREENING 08/09/2023 COVID-19 VACCINE ( - 2023-2 5 season) 2024 INFLUENZA VACCINE (#1) 2024 8, 05/21/2017, 07/16/2015 Respiratory Syncytial Virus (RSV) Vaccine Pt: or over 60 yrs (1 - 1-dose 75+ series) 2027 HEPATITIS B VACCINE Aged Out No longe r eligible based on patient's age to complete this topic HIB VACCINE Aged Out No longer eligi ble based on patient's age to complete this topic HPV VACCINE Aged Out No longer eligi ble based on patient's age to complete this topic MENINGOCOCCAL VACCINE Aged Out No nicole bruce eligible based on patient's age to complete this topic Care Teams Corrosion Control Specialist Relationship Specialty Start Date End Date Landry Fernandez DO PCP - General Family Medicine 04/19/16
--- OUTSIDE RECORDS SUMMARY | 2024-08-19 06:37 | XMS_ITS | Encounter Summary ---
Author Organization [facility] Address [address] [place] [address]. [place] [address] [place] [address] Care Team Providers Care Senior Agricultural Assistant Name Role Phone Inderjit Narayan DO Primary Care Provider + Encounter Details Date Type Department Care Team (Latest Contact Info) Description 11/17/2023 Travel Social History Tobacco Use Types Packs/Day [...] on file Legal Sex Male 10:29 AM HOOP FLARING MACHINE OPERATOR HELPER Gender Identity Not on file Sexual Orientation Not on file Occupation Industry Job Start Date Job End Date Not on file Not on file Not on file Not on file documented as of this encounter Plan of Treatment Upcoming Encounters Date Type Department Care Team (Late st Contact Info) Description 08/22/2024 8:00 AM HOOP FLARING MACHINE OPERATOR HELPER Laboratory Only [facility] Family & Internal Medicine - [place] [id number] [place] [address] Inderjit Narayan DO [address] [place] [address] 09/08/2024 2:30 PM HOOP FLARING MACHINE OPERATOR HELPER Appointment [facility] [address] [place] [address] Guido Rider, DO [address] [facility] [address] [place] [address] 10/05/2024 3:00 PM HOOP FLARING MACHINE OPERATOR HELPER Appointment [facility] Respiratory Therapy [address] [facility] [place] [address] Guido Rider, DO [address] [facility] [address] [place] [address] 10/13/2024 10:30 AM HOOP FLARING MACHINE OPERATOR HELPER Office Visit [facility]ty Care - [facility] [address] [facility] [address] [place] [address] Guido Rider, DO [address] [facility] [address] [place] [address] 01/08/2025 2:20 PM CDT Office Visit [facility] Medical [facility] [address] [address] Inderjit Narayan DO [address] [place] [address] documented as of this encounter Visit Diagnoses Not on filedocumented in this encounter Care Teams Senior Agricultural Assistant Relationship Specialty Start Date End Date Inderjit Narayan DO [address] [place] [address] PCP - General 12/19/22 documented as of this encounter
--- OUTSIDE RECORDS SUMMARY | 2024-08-19 06:37 | XMS_ITS | Encounter Summary ---
Author Organization [facility] Address [address] [place] [address]. [place] [address] [place] [address] Care Team Providers Care Behavioral Technician Name Role Phone Luiz Smalls DO Primary Care Provider + Reason for Visit * Reason Comments Hypertension Patient presents for a 6 month follow up HTN Cough C/o cough x 12/17/23 Encounter Details Date Type Department Care Team (Late st Contact Info) Description 02/14/2024 2:20 PM CDT Office Visit [facility] Medical Group Family & Internal Medicine [facility] [address] [place] [address] Luiz Smalls DO [address] [place], [place] [phone] Hypertension (Patient presents for a 6 month follow up HTN); Cough (C/o cough x 12/17/23) Social History Tobacco Use Types Packs/Day Years Used Date Smoking Tobacco: Never Passive Smoke Exposure: Never Smokeless Tobacco: Never Alcohol Use Standard Drinks/Week Comments Never 0 (1 standard drink = 0.6 oz pur e alcohol) PHQ-2 Answer Date Recorded Patient Health Questionnaire-2 Score 0 11/17/2023 Sex and Gender Information Value Date Recorded Sex Assigned at Not on file Legal Sex Male 10:29 AM CLOTH PRINTER HELPER Gender Identity Not on file Sexual Orientation Not on file Occupation Industry Job Start Date Job End Date Not on file Not on file Not on file Not on file documented as of this encounter Last Filed Vital Signs Vital Sign Reading Time Taken Comments Blood Pressure 98/66 02/14/2024 2:22 PM CDT Pulse 72 02/14/2024 2:22 PM CDT Temperature 36.8 ??C (98.2 ??F) 02/14/2024 2:22 PM CD T Respiratory Rate 18 02/14/2024 2:22 PM CDT Oxygen Saturation 97% 02/14/2024 2:22 PM CDT Inhaled Oxygen Concentration - - Weight 95.7 kg (211 lb) 02/14/2024 2:22 PM CDT Height 180.3 cm (5' 11 ) 02/14/2024 2:22 PM CDT Body Mass Index 29.43 02/14/2024 2:22 PM CDT documented in this encounter Progress Notes * Luiz Smalls, DO - 02/14/2024 2:20 PM CDT Images from the original note were not included. GENERAL OFFICE VISIT Encounter Date: 02/14/2024 Chief Complaint: 73-year-old male presents for Hypertension (Patient presents for a 6 month follow up HTN) and Cough(C/o cough x 12/17/23) HPI: Pt has subacute cough. It has been present since at least 11/10/23. Pt saw urgent care and more than one of our ABATEMENT WORKER's for this on 11/17/23, 12/17/23, and 02/03/24. On the most recent evaluation, he was suspected to have post infectious cough at that time and was treated conservatively with cough medicine (benzonatate) and montelukast. He has been given prednisone, Augmentin, azithromycin, and doxycycline. Today, he still has the symptom. He notes if he lays down at night, he doesn't cough. He notes some chest discomfort that is not exertional and usually associated with actual coughing. Patient presents for follow-up on essential hypertension. Patient has had hypertension for multipleyears. Current medications include Losartan. Patient's blood pressure is well controlled at this time. No side effects noted from medications. Concurrent conditions include Hyperlipidemia. Patient presents for follow-up on HLD. Patient has had HLD for multiple years. Current medications include simvastatin. Current side effects include none. Patient does not need labs drawn today. 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 Tobacco Use Smoking status: [...] Resource Strain: Low Risk (10/10/2021) Re[facility] from [place] [place] [facility] [place] [place] [facility] Financial Resource Strain How hard is it for you to pay for the very basics like food, housing, medical care, and heating?: Not hard at all Food Insecurity: No Food Insecurity (10/10/2021) [facility] [place] [place] [facility], [place] [place] [facility] Food Insecurity In the past 12 months, have you worried that your food would run out before you had money to buy more?: Never true In the past 12 months, did you run out of food and didn't have money to buy more?: Never true Transportation Needs: Unknown (10/10/2021) Received from [place] [place] [facility], [place] [place] [facility] Transportation Needs In the past 12 months, has lack of transportation kept you from medical appointments or from getting medications?: No Lack of Transportation (Non-Medical): Not on file Physical Activity: Not on file Stress: Not on file Social Connections: Not on file Intimate Partner Violence: Not At Risk (04/09/2023) [facility] [place] [place] [facility] Intimate Partner Violence Are you in a relationship with someone who hurts you emotionally and/or physically?: No Housing Stability: Not on file Immunization History Administered Date(s) Administered Fluzone High Dose - >Age 65 (Prefilled Syringe) 07/12/2021, 06/01/2022, 06/11/2023 Influenza 07/13/2016, 04/25/2020, 07/12/2021 Influenza Adult (Generic) 07/16/2015, [...] sulfate HFA 108 (90 Base) MCG/ACT inhaler Inhale 2 puffs into the lungs every 6 (six) hours as needed for Wheezing. 18 g 0 azelastine (ASTELIN) 0.1 % nasal spray 1 spray by Nasal route every evening. Use in each nostril asdirected 30 mL 1 cetirizine-pseudoephedrine ER (ZYRTEC-D) 5mg-120mg 12 hr tablet Take 1 tablet by mouth 2 (two) times daily. 72 tablet 2 Cholecalciferol 50 MCG (2000 UT) Tab Coenzyme Q10 (CO Q 10 OR) Take by mouth. fluticasone propionate (FLONASE) 50 MCG/ACT nasal spray magnesium oxide (MAG-OX) 250 MG tablet Take 1 tablet (250 mg total) by mouth daily. Multiple Vitamin (MULTIVITAMIN ADULT OR) omeprazole (PRILOSEC) 40 MG capsule Take 1 capsule (40 mg total) by mouth daily. 30 capsule 2 simvastatin (ZOCOR) 40 MG tablet TAKE 1 TABLET BY MOUTH LATE IN THE DAY. 90 tablet 1 tamsulosin (FLOMAX) 0.4 MG Cap Take 1 capsule (0.4 mg total) by mouth nightly at bedtime. Turmeric (QC TUMERIC COMPLEX OR) vitamin C (ASCORBIC ACID) 1000 MG tablet Take 1 tablet (1,000 mg total) by mouth daily. No current facility-administered medications for this visit. Current Outpatient Medications on File Prior to Visit Medication Sig Cholecalciferol 50 MCG (2000 UT) Tab Coenzyme Q10 (CO Q 10 OR) Take by mouth. fluticasone propionate (FLONASE) 50 MCG/ACT nasal spray magnesium oxide (MAG-OX) 250 MG tablet Take 1 tablet (250 mg total) by mouth daily. Multiple Vitamin (MULTIVITAMIN ADULT OR) simvastatin (ZOCOR) 40 MG tablet TAKE 1 TABLET BY MOUTH LATE IN THE DAY. tamsulosin (FLOMAX) 0.4 MG Cap Take 1 capsule (0.4 mg total) by mouth nightly at bedtime. Turmeric (QC TUMERIC COMPLEX OR) vitamin C (ASCORBIC ACID) 1000 MG tablet Take 1 tablet (1,000 mg total) by mouth daily. No current facility-administered medications on file prior to visit. Review of patient's allergies indicates: Allergen Reactions Methylprednisolone Rash redness Sulfa Antibiotics Rash Objective: Filed Vitals: 02/14/24 1422 BP: 98/66 Pulse: 72 Resp: 18 Temp: 98.2 ??F (36.8 ??C) TempSrc: Temporal SpO2: 97% Weight: 95.7 kg (211 lb) Height: 1.803 m (5' 11 ) Physical Exam Vitals and nursing note reviewed. HENT: Head: Normocephalic and atraumatic. Right Ear: External ear normal. Left Ear: External ear normal. Eyes: Conjunctiva/sclera: Conjunctivae normal. Cardiovascular: Rate and Rhythm: Normal rate and regular rhythm. Heart sounds: Normal heart sounds. No murmur heard. No friction rub. No gallop. Pulmonary: Effort: Pulmonary effort is normal. No respiratory distress. Breath sounds: Normal breath sounds. No wheezing or rales. Abdominal: Palpations: Abdomen is soft. Tenderness: There is no abdominal tenderness. Neurological: General: No focal deficit present. Mental Status: He is alert. Assessment & Plan: Brendon was seen today for hypertension and cough. Diagnoses and all orders for this visit: Subacute cough - XR CHEST PA+LAT; Future - omeprazole (PRILOSEC) 40 MG capsule; Take 1 capsule (40 mg total) by mouth daily. - albuterol sulfate HFA 108 (90 Base) MCG/ACT inhaler; Inhale 2 puffs into the lungs every 6 (six) hours as needed for Wheezing. - azelastine (ASTELIN) 0.1 % nasal spray; 1 spray by Nasal route every evening. Use in each nostrilas directed Allergic rhinitis, unspecified seasonality, unspecified trigger - cetirizine-pseudoephedrine ER (ZYRTEC-D) 5mg-120mg 12 hr tablet; Take 1 tablet by mouth 2 (two) times daily. Essential hypertension, benign Pure hypercholesterolemia Discussion/Summary: Cough not improving as expected. Will order chest x-ray today. Will refill Astelin, send out albuterol to take as needed, start on scheduled omeprazole, and stop losartan. Consider chest CT and PFT if not improving as expected. Continue simvastatin for HLD, and continue lifestyle changes. Monitor blood pressure at home, especially since stopping losartan today. Will have patient follow-up in 1.5 to 2 months or sooner if needed. Patient verbalized understanding. Luiz Smalls DO documented in this encounter Plan of Treatment Upcoming Encounters Date Type Department Care Team (Late st Contact Info) Description 08/22/2024 8:00 AM CLOTH PRINTER HELPER Laboratory Only [facility] Family & Internal Medicine - [address] [address] Luiz Smalls DO [address] [place] [address] 09/08/2024 2:30 PM CLOTH PRINTER HELPER Appointment [facility] [address] [place] [address] Guido Rider DO [address] [facility] [address] [place] [address] 10/05/2024 3:00 PM CLOTH PRINTER HELPER Appointment [facility] [place] [address] Guido Rider DO [address] [facility] [address] [place] [address] 10/13/2024 10:30 AM CLOTH PRINTER HELPER Office Visit [facility] Multispecialty Care - [facility] [address] [facility] [address] [place] [address] Guido Rider DO [address] [facility] [address] [place] [address] 01/08/2025 2:20 PM CDT Office Visit [facility] Medical Group Family & Internal Medicine - [address] [address] Luiz Smalls DO [address] [place] [address] documented as of this encounter Results * XR CHEST PA+LAT (02/14/2024 3:03 PM CDT) Anatomical Region Laterality Modality Chest Radiographic Eleanor ging 02/14/2024 3:05 PM CDT Impressions 02/14/2024 3:06 PM CDT IMPRESSION: 1) No radiographic evidence of active disease the chest. Ordered By: LUIZ SMALLS Interpreted By: Hema Ward MD, 02/14/2024 3:05 PM Narrative 02/14/2024 3:06 PM CDT Examination: XR CHEST PA+LAT Exam time: 02/14/2024 2:50 PM Clinical history: Cough for 3 months Comparison: None Technique: PA and lateral Findings: Thoracolumbar scoliosis convex to the right. Heart size within normal limits. Pulmonary vasculature unremarkable. No acute pulmonary parenchymal opacity. No pleural effusion. No hyperinflation. Procedure Note Hema Ward MD - 02/14/2024 Examination: XR CHEST PA+LAT Exam time: 02/14/2024 2:50 PM Clinical history: Cough for 3 months Comparison: None Technique: PA and lateral Findings: Thoracolumbar scoliosis convex to the right. Heart size withinnormal limits. Pulmonary vasculature unremarkable. No acute pulmonaryparenchymal opacity. No pleural effusion. No hyperinflation. IMPRESSION: 1) No radiographic evidence of active disease the chest. Ordered By: LUIZ SMALLS Interpreted By: Hema Ward MD, 02/14/2024 3:05 PM us Luiz Smalls DO GENERAL IMAGING Final Re sult documented in this encounter Visit Diagnoses Diagnosis Subacute cough- Primary Cough Allergic rhinitis, unspecified seasonality, unspecified trigger Essential hypertension, benign Pure hypercholesterolemia documented in this encounter Care Teams Behavioral Technician Relationship Specialty Start Date End Date Luiz Smalls DO [address] [place] [address] PCP - General 12/19/22 documented as of this encounter
--- OUTSIDE RECORDS SUMMARY | 2024-08-19 06:37 | XMS_ITS | Referral Summary ---
Author Organization [facility] Address [address] [place] [address] Care Team Providers Care Cement [employer] Name Role Phone Landry Fernandez DO Primary Care Provider [phone] Source Comments [facility],non-owned Affiliates and Associated Physician Practices is amultiple site organization consisting of ambulatory clinics and hospital sitesin [place], [place], [place] and [place]. This disclosure is being madepursuant to the Care Everywhere program and may not contain all information available regarding this patient. Last updated 18.[facility] [employer] Allergies Active Allergy Reactions Criticality Noted Date Comments Methylprednisolone Rash Medium 07/12/2012 redness Sulfamethoxazole W-Trimethoprim Rash Medium 01/2010 Medications * Be aware that medications may not be up to date on this document. Alwaysverify current medications with the patient. Medication Sig Dispensed Refills Start Date End Date Status fluticasone propionate (FLONASE) 50 MCG/ACT nasal spray Bertha 2 Sprays into each nostril once daily [...] Comments Blood Pressure 110/70 06/20/2019 10:06 AM POWER SEWING MACHINE OPERATOR Pulse 80 06/20/2019 10:06 AM POWER SEWING MACHINE OPERATOR Temperature 36.8 ??C (98.3 ??F) 06/20/2019 10:[address] Respiratory Rate 17 06/20/2019 10:06 AM POWER SEWING MACHINE OPERATOR Oxygen Saturation 96% 06/20/2019 10:06 AM POWER SEWING MACHINE OPERATOR Inhaled Oxygen Concentration - - Weight 92.5 kg (204 lb) 06/20/2019 10:06 AM POWER SEWING MACHINE OPERATOR Height 180.3 cm (5' 11 ) 06/20/2019 10:06 AM POWER SEWING MACHINE OPERATOR Body Mass Index 28.45 06/20/2019 10:06 AM POWER SEWING MACHINE OPERATOR Plan of Treatment Not on file Care Teams C[employer] Relationship Specialty Start Date End Date Landry Fernandez DO PCP - General Family Medicine 04/19/16
--- OUTSIDE RECORDS SUMMARY | 2024-08-19 06:37 | XMS_ITS | Encounter Summary ---
Author Organization [facility] Address [address] [place] [address] Care Team Providers Care Club Car Attendant Name Role Phone Landry Fernandez DO Primary Care Provider [phone] Reason for Visit * Reason Onset Date Comments Results 11/13/2018 Encounter Details Date Type Department Care Team (Late st Contact Info) Description 11/13/[address] [facility] [place] [facility] [address] [place] [address] Nirali Ledesma APRN-CNP [address] [place] [address] Results Social History Tobacco Use Types Packs/Day Years Used Date Smoking Tobacco: Never Smokeless Tobacco: Never Sex and Gender Information Value Date Recorded Sex Assigned at Not on file Gender Identity Not on file Sexual Orientation Not on file documented as of this encounter Miscellaneous Notes * Telephone Encounter - Nirali Ledesma APRN-CNP - 11/13/2018 11:56 AM CDT Called patient for 48 hour follow up call. Patient states he is feeling much better. documented in this encounter Plan of Treatment Not on file documented as of this encounter Visit Diagnoses Not on filedocumented in this encounter Care Teams Club Car Attendant Relationship Specialty Start Date End Date Landry Fernandez DO PCP - General Family Medicine 04/19/16 documented as of this encounter
--- OUTSIDE RECORDS SUMMARY | 2024-08-19 06:37 | XMS_ITS | Encounter Summary ---
Author Organization [facility] Address [address] [place] [address]. [place] [address] [place] [address] Care Team Providers Care Barrel Lathe Operator Inside Name Role Phone Inderjit Narayan DO Primary Care Provider + Reason for Visit * Reason Comments Cough Encounter Details Date Type Department Care Team (Late st Contact Info) Description 02/03/2024 2:20 PM CDT Office Visit [facility] Medical Group Multispecialty Care - [place] [address] [place] [address] Janine Nguyen, MERCHANDISE PRESENTATION MANAGER [address] [address] [place] [address] Cough Social History Tobacco Use Types Packs/Day [...] on file Legal Sex Male 10:29 AM MARKETING DEVELOPMENT SPECIALIST Gender Identity Not on file Sexual Orientation Not on file Occupation Industry Job Start Date Job End Date Not on file Not on file Not on file Not on file documented as of this encounter Last Filed Vital Signs Vital Sign Reading Time Taken Comments Blood Pressure 119/71 02/03/2024 2:37 PM CDT Pulse 77 02/03/2024 2:37 PM CDT Temperature 36.7 ??C (98 ??F) 02/03/2024 2:37 PM CDT Respiratory Rate 18 02/03/2024 2:37 PM CDT Oxygen Saturation 97% 02/03/2024 2:37 PM CDT Inhaled Oxygen Concentration - - Weight 92.5 kg (204 lb) 02/03/2024 2:37 PM CDT Height 180.3 cm (5' 11 ) 02/03/2024 2:37 PM CDT Body Mass Index 28.45 02/03/2024 2:37 PM CDT documented in this encounter Patient Instructions * Patient Instructions* Janine Nguyen NP - 02/03/2024 2:20 PM CDT Take Zyrtec at bedtime Montelukast in the morning May add Azelastine as needed for congestion/allergies Cough Mucinex DM for cough extended release every 12 hours documented in this encounter Progress Notes * Janine Nguyen NP - 02/03/2024 2:20 PM CDTSummary: cough Images from the original note were not included. Internal Medicine Outpatient Progress Note CC: Cough HPI: Brendon Aldana is a 73-year-old male who presents for a follow up on a cough. Went to urgent care at [facility] on December 16 he was treated with doxycycline. States he felt no better had a headache and congestion then treated with amoxicillin and a medrol dose pack. Congestion is better but cough is still present. Has throat clearing but cough is mostly dry. States he is tired all the time. Takes Zyrtec D for allergies in the AM with singulair then zyrtec at bedtime. Patient has history of below: Patient Active Problem List Diagnosis Allergic rhinitis Essential hypertension, benign Esophageal reflux Prediabetes Osteoarthrosis Pure hypercholesterolemia Vitamin D deficiency Benign prostatic hyperplasia without lower urinary tract symptoms Presbycusis of both ears Review of Systems Constitutional: Negative. HENT: Negative. Eyes: Negative. Respiratory: Positive for cough. Cardiovascular: Negative. Neurological: Negative. Psychiatric/Behavioral: Negative. Past Medical History: Past Medical History: Diagnosis Date Cataract 2020 Surgery both eyes Colon adenoma 01/22/2014 GERD (gastroesophageal reflux disease) [id number] Hypertension Kidney stone 12/22/2022 S/P right rotator cuff repair 09/30/2018 Stasis dermatitis of both legs 03/18/2018 Family History: Family History Problem Relation Name Age of Onset Heart Disease Mother Bell Social History: Social History Tobacco Use Smoking status: Never Passive exposure: Never Smokeless tobacco: Never Vaping Use Vaping status: Never Used Substance Use Topics Alcohol use: Never Drug use: Never Medications: Outpatient Medications Marked as Taking for the 02/03/24 encounter (Office Visit) with Janine Nguyen NP Medication Sig Dispense Refill benzonatate (TESSALON) 200 MG capsule Take 1 capsule (200 mg total) by mouth 3 (three) times daily as needed for Cough. 30 capsule 1 Allergies: Review of patient's allergies indicates: Methylprednisolone and Sulfa antibiotics ? Objective: Filed Vitals: 02/03/24 1437 BP: 119/71 Pulse: 77 Resp: 18 Temp: 98 ??F (36.7 ??C) TempSrc: Oral SpO2: 97% Weight: 92.5 kg (204 lb) Height: 1.803 m (5' 11 ) Body mass index is 28.45 kg/m??. Physical Exam Constitutional: Appearance: Normal appearance. Eyes: Conjunctiva/sclera: Conjunctivae normal. Cardiovascular: Rate and Rhythm: Normal rate and regular rhythm. Heart sounds: Normal heart sounds. No murmur heard. Pulmonary: Effort: Pulmonary effort is normal. No respiratory distress. Breath sounds: Normal breath sounds. No wheezing. Comments: Dry hoarse cough Skin: General: Skin is warm and dry. Neurological: Mental Status: He is alert. Psychiatric: Mood and Affect: Mood normal. Judgment: Judgment normal. Assessment and Plan: 1. Subacute cough -Lungs are clear today, completed 2 rounds of abx -Suspect post infectious cough, treat with Mucinex DM or Tessalon. - benzonatate (TESSALON) 200 MG capsule; Take 1 capsule (200 mg total) by mouth 3 (three) times daily as needed for Cough. Dispense: 30 capsule; Refill: 1 2. Allergic rhinitis -Suspect he may have some dryness/irritation from his medications -Hold Zyrtec D -Taking singulair in the AM, zyrtec at night Tobacco: Counseling given: Not Answered I personally spent a total of 20 minutes on the day of the encounter. This includes dlti-bz-ljzr and oxt-qlrk-rb-face time I provided on the day of the encounter & excludes time spent performing separately reportable services. Side effects and less common but more severe adverse effects of recommended medical therapies were explained to the patient. Patient reminded to use MyChart or telephone follow up prn if symptoms change, worsen, or persist, or if side effect of treatment is experienced. RTC as scheduled JANINE NGUYEN NP 02/03/2024 [facility]. documented in this encounter Plan of Treatment Upcoming Encounters Date Type Department Care Team (Late st Contact Info) Description 08/22/2024 8:00 AM MARKETING DEVELOPMENT SPECIALIST Laboratory Only [facility] Family & Internal Medicine [place] [address] [place] [address] Inderjit Narayan DO [address] [place] [address] 09/08/2024 2:30 PM MARKETING DEVELOPMENT SPECIALIST Appointment [facility] [address] [place] [address] Guido Rider, DO 3 [facility] [address] [place] [address] 10/05/2024 3:00 PM MARKETING DEVELOPMENT SPECIALIST Appointment [facility] [place] [address] Guido Rider DO [address] [facility] [address] [place] [address] 10/13/2024 10:30 AM MARKETING DEVELOPMENT SPECIALIST Office Visit [facility] Multispecialty Care - [facility] [address] [place] [address] Guido Rider DO [address] [place] [address] 01/08/2025 2:20 PM CDT Office Visit [facility] Family & Internal Medicine - [address] [address] Inderjit Narayan DO [address] [place] [address] documented as of this encounter Visit Diagnoses Diagnosis Subacute cough- Primary Cough Allergic rhinitis, unspecified seasonality, unspecified trigger documented in this encounter Care Teams Barrel Lathe Operator Inside Relationship Specialty Start Date End Date Inderjit Narayan DO [address] [place] [address] PCP - General 12/19/22 documented as of this encounter
--- OUTSIDE RECORDS SUMMARY | 2024-08-19 06:37 | XMS_ITS | Encounter Summary ---
Author Organization [facility] Address [address] [place] [address]. [place] [address] [place] [address] Care Team Providers Care Bank Note Designer Name Role Phone Inderjit Narayan DO Primary Care Provider + Encounter Details Date Type Department Care Team (Latest Contact Info) Description 03/17/2024 Scan HEALTH INFO SR[facility]CS Scanned, Doc Med Group Social History Tobacco Use Types Packs/Day Years Used Date Smoking Tobacco: Never Passive Smoke Exposure: Never Smokeless Tobacco: Never Alcohol Use Standard Drinks/Week Comments Never 0 (1 standard drink = 0.6 oz pur e alcohol) PHQ-2 Answer Date Recorded Patient Health Questionnaire-2 Score 0 11/17/2023 Sex and Gender Information Value Date Recorded Sex Assigned at Not on file Legal Sex Male 10:29 AM DRAWING OPERATOR Gender Identity Not on file Sexual Orientation Not on file Occupation Industry Job Start Date Job End Date Not on file Not on file Not on file Not on file documented as of this encounter Plan of Treatment Upcoming Encounters Date Type Department Care Team (Late st Contact Info) Description 08/22/2024 8:00 AM DRAWING OPERATOR Laboratory Only [facility] Medical Group Family & Internal Medicine - [address] [address] Inderjit Narayan DO [facility] [place] [address] 09/08/2024 2:30 PM DRAWING OPERATOR Appointment [facility] [address] [place] [address] Guido Rider, DO 3 [facility] [place] [address] 10/05/2024 3:00 PM DRAWING OPERATOR Appointment [facility] [place] [address] Guido Rider DO [address] [facility] [address] [place] [address] 10/13/2024 10:30 AM DRAWING OPERATOR Office Visit [facility] Multispecialty Care - [facility] 3 [facility] [address] [place] [address] Guido Rider, DO [address] [facility] [address] [place] [address] 01/08/2025 2:20 PM CDT Office Visit [facility] Medical [facility] Family & Internal Medicine [address] [address] Inderjit Narayan DO [address] [place] [address] documented as of this encounter Visit Diagnoses Not on filedocumented in this encounter Care Teams Bank Note Designer Relationship Specialty Start Date End Date Inderjit Narayan DO [address] [place] [address] PCP - General 12/19/22 documented as of this encounter
--- OUTSIDE RECORDS SUMMARY | 2024-08-19 06:37 | XMS_ITS | Encounter Summary ---
Author Organization [facility] Address [address] [place] [address]. [place] [address] [place] [address] Care Team Providers Care Industrial Tech Instructor Name Role Phone Inderjit Narayan DO Primary Care Provider + Encounter Details Date Type Department Care Team (Latest Contact Info) Description 03/17/2024 Travel Social History Tobacco Use Types Packs/Day [...] on file Legal Sex Male 10:29 AM VACATION PLANNER Gender Identity Not on file Sexual Orientation Not on file Occupation Industry Job Start Date Job End Date Not on file Not on file Not on file Not on file documented as of this encounter Plan of Treatment Upcoming Encounters Date Type Department Care Team (Late st Contact Info) Description 08/22/2024 8:00 AM VACATION PLANNER Laboratory Only [facility] Medical Group Family & Internal Medicine - [place] [place] [address] Inderjit Narayan DO [address] [place] [address] 09/08/2024 2:30 PM VACATION PLANNER Appointment [facility] [address] [place] [address] Guido Rider, DO 3 [facility] [address] [place] [address] 10/05/2024 3:00 PM VACATION PLANNER Appointment [facility] Respiratory Therapy [address] [facility] [place] [address] Guido Rider, DO 3 [facility] [address] [place] [address] 10/13/2024 10:30 AM VACATION PLANNER Office Visit [facility] Multispecialty Care - [facility] [address] [facility] [address] [place] [address] Guido Ridre, DO 3 [facility] [address] [place] [address] 01/08/2025 2:20 PM CDT Office Visit [facility] Medical [facility] Family & Internal Medicine [address] [address] Inderjit Narayan DO [address] [place] [address] documented as of this encounter Visit Diagnoses Not on filedocumented in this encounter Care Teams Industrial Tech Instructor Relationship Specialty Start Date End Date Inderjit Narayan DO [address] [place] [address] PCP - General 12/19/22 documented as of this encounter
--- OUTSIDE RECORDS SUMMARY | 2024-08-19 06:37 | XMS_ITS | Encounter Summary ---
Author Organization [facility] Address [address] [place] [address]. [place] [address] [place] [address] Care Team Providers Care Tangled Yarn Spool Straightener Name Role Phone Inderjit Narayan DO Primary Care Provider + Encounter Details Date Type Department Care Team (Latest Contact Info) Description 03/30/2024 Travel Social History Tobacco Use Types Packs/Day [...] on file Legal Sex Male 10:29 AM DISPUTE COORDINATOR Gender Identity Not on file Sexual Orientation Not on file Occupation Industry Job Start Date Job End Date Not on file Not on file Not on file Not on file documented as of this encounter Plan of Treatment Upcoming Encounters Date Type Department Care Team (Late st Contact Info) Description 08/22/2024 8:00 AM DISPUTE COORDINATOR Laboratory Only [facility] Medical Group Family & Internal Medicine - [place] [address] [place] [address] Inderjit Narayan DO [address] [place] [address] 09/08/2024 2:30 PM DISPUTE COORDINATOR [facility]ointment [facility] [address] [place] [address] Guido Rider, DO 3 [facility] [address] [place] [address] 10/05/2024 3:00 PM DISPUTE COORDINATOR Appointment [facility] Respiratory Therapy [place] [address] Guido Rider, DO 3 [facility] [address] [place] [address] 10/13/2024 10:30 AM DISPUTE COORDINATOR Office Visit [facility] Multispecialty Care - [facility] [address] [facility] [address] [place] [address] Guido Rider, DO 3 [facility] [address] [place] [address] 01/08/2025 2:20 PM CDT Office Visit [facility] Medical [facility] Family & Internal Medicine [address] [address] Inderjit Narayan DO [address] [place] [address] documented as of this encounter Visit Diagnoses Not on filedocumented in this encounter Care Teams Tangled Yarn Spool Straightener Relationship Specialty Start Date End Date Inderjit Narayan DO [address] [place] [address] PCP - General 12/19/22 documented as of this encounter
--- OUTSIDE RECORDS SUMMARY | 2024-08-19 06:37 | XMS_ITS | Encounter Summary ---
Author Organization [facility] Address [address] [place] [address]. [place] [address] [place] [address] Care Team Providers Care Shearer Printed [employer] Boards Name Role Phone Inderjit Narayan DO Primary Care Provider + Encounter Details Date Type Department Care Team (Latest Contact Info) Description 06/09/2024 Travel Social History Tobacco Use Types Packs/Day [...] on file Legal Sex Male 10:29 AM HOUSEKEEPING COORDINATOR Gender Identity Not on file Sexual Orientation Not on file Occupation Industry Job Start Date Job End Date Not on file Not on file Not on file Not on file documented as of this encounter Plan of Treatment Upcoming Encounters Date Type Department Care Team (Late st Contact Info) Description 08/22/2024 8:00 AM HOUSEKEEPING COORDINATOR Laboratory Only [facility] Medical Group Family & Internal Medicine - [place] [address] [place] [address] Inderjit Narayan DO [address] [place] [address] 09/08/2024 2:30 PM HOUSEKEEPING COORDINATOR Appointment [facility] [address] [place] [address] Guido Rider, DO 3 [facility] [address] [place] [address] 10/05/2024 3:00 PM HOUSEKEEPING COORDINATOR Appointment [facility] Respiratory Therapy [address] [place] [address] Guido Rider, DO [address] [facility] [address] [place] [address] 10/13/2024 10:30 AM HOUSEKEEPING COORDINATOR Office Visit [facility] Multispecialty Care - [facility] 3 [facility] [address] [place] [address] Guido Rider, DO [address] [facility] [address] [place] [address] 01/08/2025 2:20 PM CDT Office Visit [facility] Medical [facility] Family & Internal Medicine [address] [address] Inderjit Narayan DO [address] [place] [address] documented as of this encounter Visit Diagnoses Not on filedocumented in this encounter Care Teams [employer] Relationship Specialty Start Date End Date Inderjit Narayan DO [address] [place] [address] PCP - General 12/19/22 documented as of this encounter
--- OUTSIDE RECORDS SUMMARY | 2024-08-19 06:37 | XMS_ITS | Encounter Summary ---
Author Organization [facility] Address [address] [place] [address]. [place] [address] [place] [address] Care Team Providers Care Gasket Notcher Name Role Phone Inderjit Narayan DO Primary Care Provider + Encounter Details Date Type Department Care Team (Latest Contact Info) Description 03/22/2024 2:30 PM CDT - 03/22/2024 11:59 PM CDT Hospital Encounter [facility] [address] Inderjit Narayan DO [address] [place], [place] [id number] Discharge Disposition: Home or Self Care (Routine Discharge) Social History Tobacco Use Types Packs/Day Years Used Date Smoking Tobacco: Never Passive Smoke Exposure: Never Smokeless Tobacco: Never Alcohol Use Standard Drinks/Week Comments Never 0 (1 standard drink = 0.6 oz pur e alcohol) PHQ-2 Answer Date Recorded Patient Health Questionnaire-2 Score 0 11/17/2023 Sex and Gender Information Value Date Recorded Sex Assigned at Not on file Legal Sex Male 10:29 AM FUEL CELL TEST ENGINEER Gender Identity Not on file Sexual Orientation Not on file Occupation Industry Job Start Date Job End Date Not on file Not on file Not on file Not on file documented as of this encounter Medications at Time of Discharge albuterol sulfate HFA 108 (90 Base) MCG/ACT inhalerIndications:Subacu te cough INHALE 2 PUFFS INTO THE LUNGS EVERY 6 HOURS NEEDED FOR WHEEZE 18 g 1 4 azelastine (ASTELIN) 0.1 % nasal sprayIndications:Subacute cough 1 spray by Nasal route every evening. Use in each nostril as directed 30 mL 1 4 Cholecalciferol 50 MCG (2000 UT) Tab Coenzyme Q10 (CO Q 10 OR) Take by mouth. magnesium oxide (MAG-OX) 250 MG tablet Take 1 tablet (250 mg total) by mouth daily. Multiple Vitamin (MULTIVITAMIN ADULT OR) tamsulosin (FLOMAX) 0.4 MG Cap Take 1 capsule (0.4 mg total) by mouth nightly at bedtime. 3 Turmeric (QC TUMERIC COMPLEX OR) vitamin C (ASCORBIC ACID) 1000 MG tablet Take 1 tablet (1,000 mg total) by mouth daily. cefdinir (OMNICEF) 300 MG Cap capsuleIndications:Acute non-recurrent maxillary sinusitis Take 1 capsule (300 mg total) by mouth 2 (two) times daily. 20 capsule 4 03/30/20 24 cetirizine-pseudoephedrin e ER (ZYRTEC-D) 5mg-120mg 12 hr tabletIndications:Allergi c rhinitis, unspecified seasonality, unspecified trigger Take 1 tablet by mouth 2 (two) times daily. 72 tablet 2 4 05/02/20 24 fluticasone propionate (FLONASE) 50 MCG/ACT nasal spray 07/10/20 24 omeprazole (PRILOSEC) 40 MG capsuleIndications:Subacu te cough Take 1 capsule (40 mg total) by mouth daily. 30 capsule 2 4 03/23/20 24 omeprazole (PRILOSEC) 40 MG capsuleIndications:Subacu te cough TAKE 1 CAPSULE (40 MG TOTAL) BY MOUTH DAILY. 90 capsule 4 03/30/20 24 simvastatin (ZOCOR) 40 MG tabletIndications:Pure hypercholesterolemia TAKE 1 TABLET BY MOUTH LATE IN THE DAY 90 tablet 1 4 08/10/19 25 documented as of this encounter Plan of Treatment Upcoming Encounters Date Type Department Care Team (Late st Contact Info) Description 08/22/2024 8:00 AM FUEL CELL TEST ENGINEER Laboratory Only [facility] Family & Internal Medicine [address] [address] [place] [address] [place] [address] 09/08/2024 2:30 PM FUEL CELL TEST ENGINEER Appointment [facility] [address] [place] [address] Guido Rider DO 3 [facility] [address] [place] [address] 10/05/2024 3:00 PM FUEL CELL TEST ENGINEER Appointment [facility] [place] [address] Guido Rider DO 3 [facility] [address] [place] [address] 10/13/2024 10:30 AM FUEL CELL TEST ENGINEER Office Visit [facility] Multispecialty Care - [facility] 3 [facility] [address] [place] [address] Guido Rider DO 3 [facility] [address] [place] [address] 01/08/2025 2:20 PM CDT Office Visit [facility] Family & Internal [facility] [address] [place] [address] Inderjit Narayan DO [address] [place] [address] documented as of this encounter Visit Diagnoses Not on filedocumented in this encounter Care Teams Gasket Notcher Relationship Specialty Start Date End Date Inedrjit Narayan DO [address] [place] [address] PCP - General 12/19/22 documented as of this encounter
--- OUTSIDE RECORDS SUMMARY | 2024-08-19 06:37 | XMS_ITS | Encounter Summary ---
Author Organization [facility] Address [address] [place] [address]. [place] [address] [place] [address] Care Team Providers Care Directory Carrier Name Role Phone Indejrit Narayan DO Primary Care Provider + Encounter Details Date Type Department Care Team (Latest Contact Info) Description 07/10/2024 Travel Social History Tobacco Use Types Packs/Day [...] on file Legal Sex Male 10:29 AM HOME APPRAISER Gender Identity Not on file Sexual Orientation Not on file Occupation Industry Job Start Date Job End Date Not on file Not on file Not on file Not on file documented as of this encounter Plan of Treatment Upcoming Encounters Date Type Department Care Team (Late st Contact Info) Description 08/22/2024 8:00 AM HOME APPRAISER Laboratory Only [facility] Medical Group Family & Internal Medicine - [place] [address] [place] [address] Inderjit Narayan DO [address] [place] [address] 09/08/2024 2:30 PM HOME APPRAISER [facility]ointment [facility] [address] [place] [address] Guido Rider, DO 3 [facility] [address] [place] [address] 10/05/2024 3:00 PM HOME APPRAISER Appointment [facility] [address] [facility] [address] Guido Rider, DO [address] [facility] [address] [place] [address] 10/13/2024 10:30 AM HOME APPRAISER Office Visit [facility] Multispecialty Care - [facility] 3 [facility] [address] [place] [address] Guido Rider, DO [address] [facility] [address] [place] [address] 01/08/2025 2:20 PM CDT Office Visit [facility] Medical [facility] Family & Internal Medicine [address] [address] Inderjit Narayan DO [address] [place] [address] documented as of this encounter Visit Diagnoses Not on filedocumented in this encounter Care Teams Directory Carrier Relationship Specialty Start Date End Date Inderjit Narayan DO [address] [place] [address] PCP - General 12/19/22 documented as of this encounter
--- OUTSIDE RECORDS SUMMARY | 2024-08-19 06:37 | XMS_ITS | Encounter Summary ---
Author Organization [facility] Address [address] [place] [address]. 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 Gender Identity Not on file Sexual Orientation Not on file Occupation Industry Job Start Date Job End Date Not on file Not on file Not on file Not on file documented as of this encounter Plan of Treatment Upcoming Encounters Date Type Department Care Team (Late st Contact Info) Description 08/22/2024 8:00 AM MORTGAGE LOAN SPECIALIST Laboratory Only [facility] Medical Group Family & Internal Medicine - [address] [address] Inderjit Narayan DO [facility] [place] [address] 09/08/2024 2:30 PM MORTGAGE LOAN SPECIALIST Appointment [facility] [address] [place] [address] Guido Rider, DO 3 [facility] [address] [place] [address] 10/05/2024 3:00 PM MORTGAGE LOAN SPECIALIST Appointment [facility] [place] [address] Guido Rider DO 3 [facility] [address] [place] [address] 10/13/2024 10:30 AM MORTGAGE LOAN SPECIALIST Office Visit [facility] Multispecialty Care - [facility] 3 [facility]., [address] [place] [address] Guido Rider, DO 3 [facility] [address] [place] [address] 01/08/2025 2:20 PM CDT Office Visit [facility] Medical [facility] Family & Internal Medicine [address] [address] Inderjit Narayan DO [address] [place] [address] documented as of this encounter Visit Diagnoses Not on filedocumented in this encounter Care Teams Terrazzo Tile Maker Relationship Specialty Start Date End Date Inderjit Narayan DO [address] [place] [address] PCP - General 12/19/22 documented as of this encounter
--- OUTSIDE RECORDS SUMMARY | 2024-08-19 06:37 | XMS_ITS | Encounter Summary ---
Author Organization [facility] Address [address] [place] [address]. [place] [address] [place] [address] Care Team Providers Care Installation Manager Name Role Phone Inderjit Narayan DO Primary Care Provider + Encounter Details Date Type Department Care Team (Latest Contact Info) Description 04/18/2024 Travel Social History Tobacco Use Types Packs/Day [...] on file Legal Sex Male 10:29 AM HAND MODEL Gender Identity Not on file Sexual Orientation Not on file Occupation Industry Job Start Date Job End Date Not on file Not on file Not on file Not on file documented as of this encounter Plan of Treatment Upcoming Encounters Date Type Department Care Team (Late st Contact Info) Description 08/22/2024 8:00 AM HAND MODEL Laboratory Only [facility] Medical Group Family & Internal Medicine - [place] [address] [place] [address] Inderjit Narayan DO [address] [place] [address] 09/08/2024 2:[address] [facility] [address] [place] [address] Guido Rider, DO 3 [facility] [address] [place] [address] 10/05/2024 3:00 PM HAND MODEL Appointment [facility] Respiratory Therapy [facility] [place] [address] Guido Rider, DO 3 [facility] [address] [place] [address] 10/13/2024 10:30 AM HAND MODEL Office Visit [facility] Multispecialty Care - [facility] 3 [facility] [address] [place] [address] Guido Rider, DO 3 [facility] [address] [place] [address] 01/08/2025 2:20 PM CDT Office Visit [facility] Medical [facility] Family & Internal Medicine [address] [address] Inderjit Narayan DO [address] [place] [address] documented as of this encounter Visit Diagnoses Not on filedocumented in this encounter Care Teams Installation Manager Relationship Specialty Start Date End Date Inderjit Narayan DO [address] [place] [address] PCP - General 12/19/22 documented as of this encounter
--- OUTSIDE RECORDS SUMMARY | 2024-08-19 06:37 | XMS_ITS | Encounter Summary ---
Author Organization [facility] Address [address] [place] [address]. [place], [place] [address] [place] [address] Care Team Providers Care Radiation Physicist Name Role Phone Luiz Smalls DO Primary Care Provider + Reason for Referral * Consultation (Urgent) - Authorized Specialty Diagnoses / Procedures Referred By Contact Referred To Contact PULMONARY DISEASE / SLEEP & RESPIRATORY CARE Diagnoses Acute respiratory disease Procedures OFFICE/OUTPATIENT NEW LOW MDM 30-44 MINUTES OFFICE/OUTPT VISIT,NEW,LEVL IV OFFICE/OUTPT VISIT,NEW,LEVL V OFFICE/OUTPT VISIT,EST,LEVL III OFFICE/OUTPT VISIT,EST,LEVL IV OFFICE/OUTPT VISIT,EST,LEVL V Luiz Smalls DO [address] [place] [address] Phone: tel:[phone] fax:[phone] [facility] Medical Group Multispecialty Care - [facility] 3 [facility], [address] [place] [address] Phone: tel: fax: Referral ID Status Reason Start Date Expiration Date Visits Requested Visits Authorized [id number] Authorized Specialty Services 04/15/2025 99 99 Reason for Visit * Reason Onset Date Comments Referral 03/15/2024 pulmonology Encounter Details Date Type Department Care Team (Late st Contact Info) Description 03/15/2024 Telephone [facility] Medical Group Family & Internal Medicine [facility] [address] [place] [address] Luiz Smalls DO [address] [place] [address] Referral (pulmonology) Social History Tobacco Use Types Packs/Day Years Used Date Smoking Tobacco: Never Passive Smoke Exposure: Never Smokeless Tobacco: Never Alcohol Use Standard Drinks/Week Comments Never 0 (1 standard drink = 0.6 oz pur e alcohol) PHQ-2 Answer Date Recorded Patient Health Questionnaire-2 Score 0 11/17/2023 Sex and Gender Information Value Date Recorded Sex Assigned at Not on file 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 Dr's name: na Specialty: pulmonology Reason for referral (diagnosis): J06.9 upper respiratory infection, Chronic cough R05.3 other nonspecific abnormal finding of lung R91.8 Appointment: pending Last office visit at this office: Last visit with LUIZ SMALLS in FAMILY PRACTICE was on: 02/14/2024 in [facility] Future appointment scheduled: Future Appointments Date Time Provider Department Center 03/17/2024 4:00 PM NOEMI RT PFT RM 1 SEORT [facility] NOEMI 03/30/2024 2:00 PM Luiz Smalls DO [id number] documented in this encounter Plan of Treatment Upcoming Encounters Date Type Department Care Team (Late st Contact Info) Description 08/22/2024 8:00 AM ASSEMBLER AIRCRAFT POWER PLANT Laboratory Only [facility] Family & Internal Medicine - [address] [address] Luiz Smalls, [address] [place] [address] 09/08/2024 2:30 PM ASSEMBLER AIRCRAFT POWER PLANT Appointment [facility] [address] [place] [address] Guido Rider DO 3 [facility] [address] [place] [address] 10/05/2024 3:00 PM ASSEMBLER AIRCRAFT POWER [employer]ANT [facility] [place] [address] Guido Rider DO 3 [facility] [address] [place] [address] 10/13/2024 10:30 AM ASSEMBLER AIRCRAFT POWER PLANT Office Visit [facility] Multispecialty Care - [facility] 3 [facility]., [address] [place] [address] Guido Rider DO 3 [facility] [address] [place] [address] 01/08/2025 2:20 PM CDT Office Visit [facility] Family & Internal [facility] [place] - [address] [address] [place] [address] [place] [address] Scheduled Referrals Name Type Priority Associated Diagnoses Orde r Schedule Ambulatory referral to Pulmonology (OTHER) Referral Routine Acute respiratory disease Ordered: 03/15/2024 documented as of this encounter Visit Diagnoses Diagnosis Acute respiratory disease- Primary Acute upper respiratory infections of unspecified site documented in this encounter Care Teams Radiation Physicist Relationship Specialty Start Date End Date Luiz Smalls DO [address] [place] [address] PCP - General 12/19/22 documented as of this encounter
--- OUTSIDE RECORDS SUMMARY | 2024-08-19 06:37 | XMS_ITS | Encounter Summary ---
Author Organization [facility] Address [address] [place] [address] Care Team Providers Care Application Support Technician Name Role Phone Landry Fernandez DO Primary Care Provider [phone] Encounter Details Date Type Department Care Team (Late st Contact Info) Description 11/04/2020 Orders Only [facility] Medical Group - COVID Vax [address] [place] [address] Lorenzo Arciniega MD [address] [place] [address] Need for vaccination Social History Tobacco Use Types Packs/Day Years Used Date Smoking Tobacco: Never Smokeless Tobacco: Never Sex and Gender Information Value Date Recorded Sex Assigned at Not on file Gender Identity Not on file Sexual Orientation Not on file documented as of this encounter Plan of Treatment Not on file documented as of this encounter Visit Diagnoses Diagnosis Need for vaccination Need for prophylactic vaccination and inoculation against unspecified single disease documented in this encounter Care Teams Application Support Technician Relationship Specialty Start Date End Date Landry Fernandez DO PCP - General Family Medicine 04/19/16 documented as of this encounter
--- OUTSIDE RECORDS SUMMARY | 2024-08-19 06:37 | XMS_ITS | Encounter Summary ---
Author Organization [facility] Address [address] [place] [address]. 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 Gender Identity Not on file Sexual Orientation Not on file Occupation Industry Job Start Date Job End Date Not on file Not on file Not on file Not on file documented as of this encounter Plan of Treatment Upcoming Encounters Date Type Department Care Team (Late st Contact Info) Description 08/22/2024 8:00 AM FITNESS FLOOR ATTENDANT Laboratory Only [facility] Medical Group Family & Internal Medicine - [place] [address] [place] [address] Inderjit Narayan DO [address] [place] [address] 09/08/2024 2:30 PM FITNESS FLOOR ATTENDANT Appointment [facility] [address] [place] [address] Guido Rider, DO 3 [facility] [address] [place] [address] 10/05/2024 3:00 PM FITNESS FLOOR ATTENDANT Appointment [facility] Respiratory [facility] [place] [address] Guido Rider, DO 3 [facility] [address] [place] [address] 10/13/2024 10:30 AM FITNESS FLOOR ATTENDANT Office Visit [facility] Multispecialty Care - [facility] 3 [facility] [address] [place] [address] Guido Rider, DO 3 [facility] [address] [place] [address] 01/08/2025 2:20 PM CDT Office Visit [facility] Medical [facility] Family & Internal Medicine [address] [address] Inderjit Narayan DO [address] [place] [address] documented as of this encounter Visit Diagnoses Not on filedocumented in this encounter Care Teams Outpatient Scheduler Relationship Specialty Start Date End Date Inderjit Narayan DO [address] [place] [address] PCP - General 12/19/22 documented as of this encounter
--- OUTSIDE RECORDS SUMMARY | 2024-08-19 06:37 | XMS_ITS | Encounter Summary ---
Author Organization [facility] Address [address] [place] [address]. [place] [address] [place] [address] Care Team Providers Care Department Store Salesperson Name Role Phone Inderjit Narayan DO Primary Care Provider + Reason for Visit * Reason Comments Hand Pain Right hand and thumb pain for several months. Worse in the morning. Hypertension Presents for routine 3 month follow up. Encounter Details Date Type Department Care Team (Late st Contact Info) Description 07/10/2024 2:20 PM MANAGER NIGHT Office Visit [facility] Family & Internal Medicine - [address] [phone] Inderjit Narayan DO [address] [place] [address] [phone] Hand Pain (Right hand and thumb pain for several months. Worse in the morning. ); Hypertension (Presents for routine 3 month follow up. ) Social History Tobacco Use Types Packs/Day Years Used Date Smoking Tobacco: Never Passive Smoke Exposure: Never Smokeless Tobacco: Never Alcohol Use Standard Drinks/Week Comments Never 0 (1 standard drink = 0.6 oz pur e alcohol) PHQ-2 Answer Date Recorded Patient Health Questionnaire-2 Score 0 11/17/2023 Sex and Gender Information Value Date Recorded Sex Assigned at Not on file Legal Sex Male 10:29 AM MANAGER NIGHT Gender Identity Not on file Sexual Orientation Not on file Occupation Industry Job Start Date Job End Date Not on file Not on file Not on file Not on file documented as of this encounter Last Filed Vital Signs Vital Sign Reading Time Taken Comments Blood Pressure 132/70 07/10/2024 2:19 PM MANAGER NIGHT Pulse 72 07/10/2024 2:19 PM MANAGER NIGHT Temperature 36.2 ??C (97.2 ??F) 07/10/2024 2:19 PM CS T Respiratory Rate 16 07/10/2024 2:19 PM MANAGER NIGHT Oxygen Saturation 95% 07/10/2024 2:19 PM MANAGER NIGHT Inhaled Oxygen Concentration - - Weight 96.7 kg (213 lb 3.2 oz) 07/10/2024 2:19 P M MANAGER NIGHT Height 180.3 cm (5' 11 ) 07/10/2024 2:19 PM MANAGER NIGHT Body Mass Index 29.74 07/10/2024 2:19 PM MANAGER NIGHT documented in this encounter Patient Instructions * Patient Instructions* Inderjit Narayan DO - 07/10/2024 2:20 PM MANAGER NIGHT Try Voltaren gel on your hand to see if this helps your hand pain. We do not recommend doing this multiple times a day multiple days in a row. GER NIGHT documented in this encounter Progress Notes * Inderjit Narayan DO - 07/10/2024 2:20 PM CSTAssociated Order(s): Skin Tag Removal Post-Procedure Diagnose(s): AK (actinic keratosis); Skin tag Images from the original note were not included. GENERAL OFFICE VISIT Encounter Date: 07/10/2024 Chief Complaint: 74-year-old male presents for Hand Pain (Right hand and thumb pain for several months. Worse in themorning. ) and Hypertension (Presents for routine 3 month follow up. ) HPI: Pt presents for right hand and thumb pain. It is chronic. It is worse in the morning. He notes painin the MCP of the first joint most notably. There is no numbness or tingling. Pt did see pulmonology Dr. Rider since last office visit. He ordered repeat CT scan as well as MCTand had pt take Flonase and Zyrtec. Patient presents for follow-up on HLD. Patient has had HLD for multiple years. Current medications include simvastatin. Current side effects include none. Patient does not need labs drawn today. Patient presents for follow-up on essential hypertension. Patient has had hypertension for multipleyears. Current medications include Losartan. Patient's blood pressure is decently well controlled at this time. No side effects noted from medications. Concurrent conditions include Hyperlipidemia. Review of Systems Constitutional: Negative for fever. Respiratory: See HPI Cardiovascular: Negative for chest pain. Gastrointestinal: Negative for abdominal pain. Musculoskeletal: See HPI Skin: Negative for rash. Neurological: See HPI Patient Active Problem List Diagnosis Allergic rhinitis Essential hypertension, benign Esophageal reflux Prediabetes Osteoarthrosis Pure hypercholesterolemia Vitamin D deficiency Benign prostatic hyperplasia without lower urinary tract symptoms Presbycusis of both ears Past Medical History: Diagnosis Date Cataract 2020 Surgery both eyes Colon adenoma 01/22/2014 GERD (gastroesophageal reflux disease) [id number] Hypertension Kidney stone 12/22/2022 S/P right rotator cuff repair 09/30/2018 Stasis dermatitis of both legs 03/18/2018 Past Surgical History: Procedure Laterality Date BRAIN SURGERY blood clot removed at age 4 or 5 due to trauma, now has portion of skull caved in after accident around age 52 CATARACT EXTRACTION Bilateral 2019 REMOVAL OF SPERM DUCT(S) SCREENING COLONOSCOPY 04/09/2023 Repeat in 5 years Family History Problem Relation Name Age of Onset Heart Disease Mother Bell Leukemia Mother Bell [place] Father Breast Cancer Sister 1/2 sister Cancer Maternal Grandfather Leukemia Grandson Social History Tobacco Use Smoking status: Never Passive exposure: Never Smokeless tobacco: Never Vaping Use Vaping status: Never Used Substance Use Topics Alcohol use: Never Drug use: Never Immunization History Administered Date(s) Administered Fluzone High Dose - >Age 65 (Prefilled Syringe) 07/12/2021, 06/01/2022, 06/11/2023 Influenza (Generic) 07/13/2016, 04/25/2020, 07/12/2021 Influenza Adult (Generic) 07/16/2015, 05/21/2017, 05/12/2018, 06/10/2019, 04/25/2020 [employer] COVID-19 (12+) MRNA, LNP-S, PF, 100 MCG/ 0.5 ML DOSE 09/20/2020, 10/18/2020, 06/13/2021 MODERNA COVID-19, 6-11 Primary (DARK BLUE CAP) (previous 18+ monovalent booster), mRNA, LNP-S,PF, 50 mcg/ 0.50mL dose 09/20/2020, 10/18/2020, 06/13/2021 [employer] COVID-19 (12+) MRNA, LNP-S, PF, FREDY-SUCROSE, 30 MCG/0.3 ML (COMIRNATY) 06/11/2023 PFIZER COVID-19 BIVALENT (12+) mRNA, LNP-S, [...] nostril asdirected 30 mL 1 cetirizine-pseudoephedrine ER ([employer] ALLERGY RELIEF D) 5mg-120mg 12 hr tablet Take 1 tablet by mouth 2 (two) times daily. 72 tablet 2 Cholecalciferol 50 MCG (2000 UT) Tab Coenzyme Q10 (CO Q 10 OR) Take by mouth. fluticasone propionate (FLONASE) 50 MCG/ACT nasal spray 1 spray by Nasal route daily. 16 g 6 HYDROcodone-acetaminophen (NORCO) 5-325 MG tablet Take 1 tablet by mouth every 4 (four) hours as needed for Pain (max 6 tabs a day). Indications: Acute Pain < 7 Day Supply 21 tablet 0 losartan (COZAAR) 50 MG tablet Take 1 tablet (50 mg total) by mouth daily. 90 tablet 1 magnesium oxide (MAG-OX) 250 MG tablet Take [...] No current facility-administered medications for this visit. Objective: Filed Vitals: 07/10/24 1419 BP: 132/70 Pulse: 72 Resp: 16 Temp: 97.2 ??F (36.2 ??C) TempSrc: Skin SpO2: 95% Weight: 96.7 kg (213 lb 3.2 oz) Height: 1.803 m (5' 11 ) Physical Exam Vitals and nursing note reviewed. HENT: Head: Normocephalic and atraumatic. Right Ear: External ear normal. Left Ear: External ear normal. Eyes: General: No scleral icterus. Conjunctiva/sclera: Conjunctivae normal. Cardiovascular: Rate and Rhythm: Normal rate and regular rhythm. Pulmonary: Effort: Pulmonary effort is normal. Breath sounds: Normal breath sounds. Abdominal: Palpations: Abdomen is soft. Tenderness: There is no abdominal tenderness. Musculoskeletal: Comments: Negative Tinel's B/L, equivocal Finklestein's on right, full ROM but has some pain when positioning for Finklestein's Skin: General: Skin is warm and dry. Comments: Skin tag noted on right nose. AK noted on right cheek. Neurological: Mental Status: He is alert and oriented to person, place, and time. Psychiatric: Mood and Affect: Mood and affect normal. Skin Tag Removal Date/Time: 07/10/2024 2:56 PM Performed by: Inderjit Narayan DO Authorized by: Inderjit Narayan DO Number of Lesions: 1 Lesion 1: Body area: head/neck Head/neck location: nose Malignancy: benign lesion Destruction method: cryotherapy Comments: Treated both lesions (AK and skin tag) with 1-2 seconds of cryotherapy for 3 cycles. Pt tolerated procedure. Assessment & Plan: Brendon was seen today for hand pain and hypertension. Diagnoses and all orders for this visit: Essential hypertension, benign - CBC W/DIFF AUTOMATED; Future - COMPREHENSIVE METABOLIC PANEL; Future - TSH W/REFLEX; Future - LIPID PANEL; Future - VITAMIN D, 25 OH; Future - PROSTATE SPECIFIC ANTIGEN,SCREENING; Future - HEMOGLOBIN, GLYCOSYLATED; Future - URIC ACID BLOOD; Future Pure hypercholesterolemia - CBC W/DIFF AUTOMATED; Future - COMPREHENSIVE METABOLIC PANEL; Future - TSH W/REFLEX; Future - LIPID PANEL; Future - VITAMIN D, 25 OH; Future - PROSTATE SPECIFIC ANTIGEN,SCREENING; Future - HEMOGLOBIN, GLYCOSYLATED; Future - URIC ACID BLOOD; Future Vitamin D deficiency - CBC W/DIFF AUTOMATED; Future - COMPREHENSIVE METABOLIC PANEL; Future - TSH W/REFLEX; Future - LIPID PANEL; Future - VITAMIN D, 25 OH; Future - PROSTATE SPECIFIC ANTIGEN,SCREENING; Future - HEMOGLOBIN, GLYCOSYLATED; Future - URIC ACID BLOOD; Future Prediabetes - CBC W/DIFF AUTOMATED; Future - COMPREHENSIVE METABOLIC PANEL; Future - TSH W/REFLEX; Future - LIPID PANEL; Future - VITAMIN D, 25 OH; Future - PROSTATE SPECIFIC ANTIGEN,SCREENING; Future - HEMOGLOBIN, GLYCOSYLATED; Future - URIC ACID BLOOD; Future Annual physical exam - CBC W/DIFF AUTOMATED; Future - COMPREHENSIVE METABOLIC PANEL; Future - TSH W/REFLEX; Future - LIPID PANEL; Future - VITAMIN D, 25 OH; Future - PROSTATE SPECIFIC ANTIGEN,SCREENING; Future - HEMOGLOBIN, GLYCOSYLATED; Future - URIC ACID BLOOD; Future Screening for prostate cancer - CBC W/DIFF AUTOMATED; Future - COMPREHENSIVE METABOLIC PANEL; Future - TSH W/REFLEX; Future - LIPID PANEL; Future - VITAMIN D, 25 OH; Future - PROSTATE SPECIFIC ANTIGEN,SCREENING; Future - HEMOGLOBIN, GLYCOSYLATED; Future - URIC ACID BLOOD; Future AK (actinic keratosis) - Skin Tag Removal Skin tag - Skin Tag Removal Abnormal CT scan of lung Discussion/Summary: Continue current meds as prescribed for HTN & HLD. Will order labs to be done next month. Pt tolerated procedure without issue. Continue with all testing per pulmonology. Suspect hand pain is OA;recommend occasional Voltaren gel use. Will have pt f/u in 6 months or sooner if needed. Pt v/u. Inderjit Narayan DO GER NIGHT documented in this encounter Plan of Treatment Upcoming Encounters Date Type Department Care Team (Late st Contact Info) Description 08/22/2024 8:00 AM MANAGER NIGHT Laboratory Only [facility] Family & Internal Medicine [address] [phone] Inderjit Narayan DO [address] [place] [address] 09/08/2024 2:30 PM MANAGER NIGHT Appointment [facility] [address] [place] [address] Guido Rider [address] [facility] [address] [place] [phone] 10/05/2024 3:00 PM MANAGER NIGHT Appointment [facility] [place] [address] [facility] Rider [facility] [address] [place] [id number] 10/13/2024 10:30 AM MANAGER NIGHT Office Visit [facility] [address] [facility] [address] [place] [phone] Guido Rider [address] [facility] [address] [place] [phone] 01/08/2025 2:20 PM CDT Office Visit [facility] Family & Internal Medicine - [address] [phone] Inderjit Narayan DO [address] [place] [address] Scheduled Orders Name Type Priority Associated Diagnoses Orde r Schedule CBC W/DIFF AUTOMATED Lab Routine Essential hypertension, benign Pure hypercholesterolemia Vitamin D deficiency Prediabetes Annual physical exam Screening for prostate cancer Expected: 08/09/2024, Expires: 07/10/2025 COMPREHENSIVE METABOLIC PANEL Lab Routine Essential hypertension, benign Pure hypercholesterolemia Vitamin D deficiency Prediabetes Annual physical exam Screening for prostate cancer Expected: 08/09/2024, Expires: 07/10/2025 TSH W/REFLEX Lab Routine Essential hypertension, benign Pure hypercholesterolemia Vitamin D deficiency Prediabetes Annual physical exam Screening for prostate cancer Expected: 08/09/2024, Expires: 07/10/2025 LIPID PANEL Lab Routine Essential hypertension, benign Pure hypercholesterolemia Vitamin D deficiency Prediabetes Annual physical exam Screening for prostate cancer Expected: 08/09/2024, Expires: 07/10/2025 VITAMIN D, 25 OH Lab Routine Essential hypertension, benign Pure hypercholesterolemia Vitamin D deficiency Prediabetes Annual physical exam Screening for prostate cancer Expected: 08/09/2024, Expires: 07/10/2025 PROSTATE SPECIFIC ANTIGEN,SCREENING Lab Routine Essential hypertension, benign Pure hypercholesterolemia Vitamin D deficiency Prediabetes Annual physical exam Screening for prostate cancer Expected: 08/09/2024, Expires: 07/10/2025 HEMOGLOBIN, GLYCOSYLATED Lab Routine Essential hypertension, benign Pure hypercholesterolemia Vitamin D deficiency Prediabetes Annual physical exam Screening for prostate cancer Expected: 08/09/2024, Expires: 07/10/2025 URIC ACID BLOOD Lab Routine Essential hypertension, benign Pure hypercholesterolemia Vitamin D deficiency Prediabetes Annual physical exam Screening for prostate cancer Expected: 08/09/2024, Expires: 07/10/2025 documented as of this encounter Procedures Procedure Name Priority Date/Time Associated Diagnosis Comments REMOVAL OF SKIN TAGS Routine 07/10/2024 2:56 PM MANAGER NIGHT AK (actinic keratosis) Skin tag documented in this encounter Results * Skin Tag Removal (07/10/2024 2:56 PM MANAGER NIGHT) Narrative Inderjit Narayan DO - 07/10/2024 2:56 PM MANAGER NIGHT Inderjit Narayan, DO ? 07/10/2024 ??3:05 PM Skin Tag Removal Date/Time: 07/10/2024 2:56 PM Performed by: Inderjit Narayan DO Authorized by: Inderjit Narayan, DO ?? Number of Lesions: 1 Lesion 1: ??Body area: head/neck ??Head/neck location: nose ??Malignancy: benign lesion ?Destruction method: cryotherapy ?? Comments: Treated both lesions (AK and skin tag) with 1-2 seconds of cryotherapy for 3 cycles. ??Pt tolerated procedure. ?? us Inderjit Narayan DO PROCEDURES-UNRESULTED Fi nal Result documented in this encounter Visit Diagnoses Diagnosis Essential hypertension, benign- Primary Pure hypercholesterolemia Vitamin D deficiency Unspecified vitamin D deficiency Prediabetes Other abnormal glucose Annual physical exam Routine general medical examination at a health care facility Screening for prostate cancer Special screening for malignant neoplasm of prostate AK (actinic keratosis) Actinic keratosis Skin tag Unspecified hypertrophic and atrophic condition of skin Abnormal CT scan of lung Other nonspecific abnormal finding of lung field Right hand pain Pain in limb documented in this encounter Care Teams Department Store Salesperson Relationship Specialty Start Date End Date Inderjit Narayan DO [address] [place] [id number] PCP - General 12/19/22 documented as of this encounter
--- OUTSIDE RECORDS SUMMARY | 2024-08-19 06:37 | XMS_ITS | Encounter Summary ---
Author Organization [facility] Address [address] [place] [address]. [place] [address] [place] [address] Care Team Providers Care Physician Practice Market Manager Name Role Phone Inderjit Narayan DO Primary Care Provider + Reason for Referral * Procedure (Routine) - New Request Specialty Diagnoses / Procedures Referred By Contac t Referred To Contact Diagnoses Chronic cough Procedures Methacholine Challenge ([id number]) Guido Rider DO [address] [facility] [address] [place] [address] Phone: tel: fax: Referral ID Status Reason Start Date Expiration Date V isits Requested Visits Authorized [id number] New Request 06/09/2024 07/10/2025 1 1 * Imaging (Routine) - New Request Specialty Diagnoses / Procedures Referred By Contjeanie gallagher Referred To Contact RADIOLOGY Diagnoses Abnormal CT scan of lung Multiple nodules of lung Procedures CT CHEST WO CON Guido Rider DO [address] [facility] [address] [place] [address] Phone: tel: fax: Referral ID Status Reason Start Date Expiration Date V isits Requested Visits Authorized [id number] New Request 06/09/2024 06/09/2025 1 1 Reason for Visit * Reason Comments New Patient * Consultation (Urgent) - Authorized Specialty Diagnoses / Procedures Referred By Contact Referred To Contact PULMONARY DISEASE / SLEEP & RESPIRATORY CARE Diagnoses Acute respiratory disease Procedures OFFICE/OUTPATIENT NEW LOW MDM 30-44 MINUTES OFFICE/OUTPT VISIT,NEW,LEVL IV OFFICE/OUTPT VISIT,NEW,LEVL V OFFICE/OUTPT VISIT,EST,LEVL III OFFICE/OUTPT VISIT,EST,LEVL IV OFFICE/OUTPT VISIT,EST,LEVL V Inderjit Narayan DO [address] [place] [address] Phone: tel:[phone] fax:[phone] [facility] - [address], [address] [place] [address] Phone: tel: fax: Referral ID Status Reason Start Date Expiration Date Visits Requested Visits Authorized [id number] Authorized Specialty Services 4 04/15/2025 99 99 Encounter Details Date Type Department Care Team (Late st Contact Info) Description 06/09/2024 2:20 PM CDT Office Visit [facility] - [address] [place] [address] Guido Rider DO [address] [facility] [address] [place], [place] [id number] New Patient Social History Tobacco Use Types Packs/Day Years Used Date Smoking Tobacco: Never Passive Smoke Exposure: Never Smokeless Tobacco: Never Tobacco Cessation:Counseling Given: Yes Alcohol Use Standard Drinks/Week Comments Never 0 (1 standard drink = 0.6 oz pur e alcohol) PHQ-2 Answer Date Recorded Patient Health Questionnaire-2 Score 0 11/17/2023 Sex and Gender Information Value Date Recorded Sex Assigned at Not on file 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 Gender Identity Not on file Sexual Orientation Not on file Occupation Industry Job Start Date Job End Date Not on file Not on file Not on file Not on file documented as of this encounter Last Filed Vital Signs Vital Sign Reading Time Taken Comments Blood Pressure 103/67 06/09/2024 2:10 PM CDT Pulse 82 06/09/2024 2:10 PM CDT Temperature - - Respiratory Rate 16 06/09/2024 2:10 PM CDT Oxygen Saturation 96% 06/09/2024 2:10 PM CDT ra Inhaled Oxygen Concentration - - Weight 95.3 kg (210 lb) 06/09/2024 2:10 PM CDT Height 180.3 cm (5' 11 ) 06/09/2024 2:10 PM CDT Body Mass Index 29.29 06/09/2024 2:10 PM CDT documented in this encounter Patient Instructions * Patient Instructions* Guido Rider DO - 06/09/2024 2:20 PM CDT Images from the original note were not included. PATIENT INSTRUCTIONS Please review the following items that were discussed in your visit today: Call the number I gave you soon to schedule your ct chest, please schedule the testing for ~ 1 weekprior to next office visit. Also call and schedule your asthma test (methacholine challenge test) Please start a trial of flonase (fluticasone) nasal spray, 1 spray each nostril daily. Try it for 2-3 weeks to see if it helps with your symptoms. Avoid using any allergy pil with the D in it. Take cetirizine 10mg daily. Consider adding sinus rinses, use distilled water. Resume albuterol as needed. Return to clinic in 3 months, or sooner if your symptoms change or worsen. If you have any questions or concerns please send us a [employer] message for the most timely response. However, you can always call us at ([phone]) during office hours It was my pleasure to take care of you today, looking forward to seeing you at your next appointment. Please let us know how we are doing and leave a review for me on [employer] with the following QR code.You do not need an account and doesn't sign you up for anything. Usually can hover your smartphone camera over this QR code like you are taking a picture and just click on the link that forms under the QR code Alternatively you can use a QR scanner alvaro through the [employer]). If you don't have a smart phone and want to leave a review for me you can always search Dr. Maycol Rider DO Google review to let us know how we are doing. Sincerely, Dr. Maycol Rider documented in this encounter Progress Notes * Guido Rider DO - 06/09/2024 2:20 PM CDT [facility] NOTE History of Present Illness Brendon Aldana is a 74-year-old male who presented to our clinic for: Chief Complaint Patient presents with New Patient Initial Pulmonary OV 06/09/2024: The patient presents today to establish care for breathing issues. Notes having RENAE for 2 years. Notes sx having worsened over the year. -- notes ~1-2x a year having issues with bronchitis needing atb/steroids, several years. -- reports can walk for 3-4 blocks prior to having to stop and take a rest. Avoids stairs. -- cough worsens with cold weather, having cough with sputum production in the am usually. -- has never seen pulmonary in the past for this -- does not report any wheezing. . -- notes treatment with albuterol as needed in the past, he is not sure if it helped him. Last timeused this was 1-2 m ago. -- was given a sample of trelegy but did not use it. -- never smoker in past. -- denies chest pain. -- notes no cardiac hx. -- notes no having increased SOB with laying flat. -- clearing his throat intermittently throughout the day, hx of recurrent sinus infections, notes has not needed to see ENT in the past for this. -- notes he is taking acid suppression but no breakthrough sx with this. -- sleep is fair. Other Relevant Hx: Fam hx: no known fam hx of lung disease. Tob: never smoker, + 2nd hand smoke exp. 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 Imaging reviewed: Ct chest 03/08/24: Mild patchy groundglass opacities in the lung apices and an 11 mm groundglass nodule left lung apex. Atypical infection is a consideration. Chronic airway inflammation or subtle changes of hypersensitivity pneumonitis could have this appearance. Clinical follow-up recommended. 6 month follow-up CT chest without contrast recommended. Testing/Data reviewed: Labs: -- cbc 04/18/24: eos 510, otherwise wnl. Echo: PFT: 03/2024: 1. Mild restriction is present, FEV1 2.88L, 89% predicted. 2. No evidence of obstruction. 3. There was no bronchodilator response during the test, this does not preclude use of bronchodilator therapy, clinical correlation advised. 4. Uncorrected DLCO was normal. 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 after accident around age 52 CATARACT EXTRACTION Bilateral 2019 REMOVAL OF SPERM DUCT(S) SCREENING COLONOSCOPY 04/09/2023 Repeat in 5 years Social History Tobacco Use Smoking status: Never Passive exposure: Never Smokeless tobacco: Never Vaping Use Vaping status: Never Used Substance Use Topics Alcohol use: Never Drug use: Never Family History Problem Relation Name Age of Onset Heart Disease Mother Bell Leukemia Mother Bell CT Father Breast Cancer Sister 1/2 sister Cancer Maternal Grandfather Leukemia Grandson Current Outpatient Medications Medication Sig Dispense Refill [...] fluticasone propionate (FLONASE) 50 MCG/ACT nasal spray HYDROcodone-acetaminophen (NORCO) 5-325 MG tablet Take 1 [...] mouth daily. Multiple Vitamin (MULTIVITAMIN ADULT OR) ondansetron (ZOFRAN-ODT) 4 MG disintegrating tablet Take 1 tablet (4 mg total) by mouth every 8 (eight) hours as needed. 20 tablet 0 simvastatin (ZOCOR) 40 MG tablet TAKE 1 TABLET BY MOUTH LATE IN THE DAY 90 tablet 1 tamsulosin (FLOMAX) 0.4 MG Cap Take 1 capsule (0.4 mg total) by mouth nightly at bedtime. Turmeric (QC TUMERIC COMPLEX OR) vitamin C (ASCORBIC ACID) 1000 MG tablet Take 1 tablet (1,000 mg total) by mouth daily. Fiowpjbpqqi-Xvavobvrv-Btieog (TRELEGY ELLIPTA) 100-62.5-25 MCG/ACT AEROSOL POWDER, BREATH ACTIVATEDInhale 1 puff into the lungs daily. (Patient not taking: Reported on 06/09/2024) No current facility-administered medications for this visit. Review of patient's allergies indicates: Allergen Reactions Methylprednisolone Rash redness Sulfa Antibiotics Rash Immunization History Administered Date(s) Administered Fluzone High [...] (Prevnar 13) 10/14/2017 Tdap (Generic) 08/09/2007, 11/17/2018 Review of Systems Constitutional: Negative for malaise/fatigue and weight loss. HENT: Positive for congestion. Negative for sore throat. Respiratory: Positive for cough and shortness of breath. Negative for hemoptysis, sputum productionand wheezing. Cardiovascular: Negative for chest pain, palpitations, orthopnea, leg swelling and PND. Gastrointestinal: Positive for heartburn. Endo/Heme/Allergies: Positive for environmental allergies. Psychiatric/Behavioral: The patient does not have insomnia. Physical Exam Filed Vitals: 06/09/24 1410 BP: 103/67 Pulse: 82 Resp: 16 SpO2: 96% Weight: 95.3 kg (210 lb) Height: 1.803 m (5' 11 ) GEN: Pleasant, in NAD NEURO: Alert, oriented x3, no focal neurologic deficits noted PSYCH: Affect is normal HEAD: NC, AT EENT: mallampati 3 NECK: Supple, trachea midline LN: No appreciable cervical lymphadenopathy PULM: non-labored, CTAB, no wheezes/crackles HEART: normal s1,s2, rrr, no audible murmur GI: non-distended MSK: Normal range of motion of b/l hand/wrist joints without effusion or joint tenderness EXTR: No clubbing, +1 BLLE edema Skin: No visible rashes, no visible tattoos Assessment #. Abnormal ct chest 03/08/24 -- Mild patchy groundglass opacities in the lung apices -- 11 mm groundglass nodule left lung apex. Ddx: Atypical infection, airway inflammation, HP. #. overweight Body mass index is 29.29 kg/m??. # chronic cough Ddx: post nasaal gtt, GERD, ? aspiration # allergic rhinitis Plan: -- Please start a trial of flonase (fluticasone) nasal spray, 1 spray each nostril daily. Try it for 2-3 weeks to see if it helps with your symptoms. -- start taking cetirizine. -- would continue trial of albuterol 2 puffs every 4 hours needed. -- order MCT to r/o asthma. If positive would do the trial of trelegy. RTC 3m I spent >60 minutes today reviewing the patient's medical record, obtaining history, performing an exam, ordering medications, tests, and/or procedures, documenting in the medical record, counseling and educating the patient, and reviewing and communicating test results. Dr. Maycol Rider [facility] Pulmonary Medicine documented in this encounter Plan of Treatment Upcoming Encounters Date Type Department Care Team (Late st Contact Info) Description 08/22/2024 8:00 AM COOK CHIEF Laboratory Only [facility] Family & Internal Medicine - [address] [address] Inderjit Narayan DO [address] [place] [address] 09/08/2024 2:30 PM COOK CHIEF Appointment [facility] [address] [place] [address] Guido Rider DO [address] [facility] [address] [place] [address] 10/05/2024 3:00 PM COOK CHIEF Appointment [facility] [address] [place] [address] Guido Rider DO [address] [facility] [address] [place] [address] 10/13/2024 10:30 AM COOK CHIEF Office Visit [facility] - [facility] [address] [facility] [address] [place] [address] Guido Rider DO [address] [facility] [address] [place] [address] 01/08/2025 2:20 PM CDT Office Visit [facility] Medicine [address] [address] Inderjit Narayan DO [address] [place] [address] Scheduled Orders Name Type Priority Associated Diagnoses Orde r Schedule CT CHEST WO CON CT Routine Abnormal CT scan of lung Multiple nodules of lung Expected: 09/09/2024 (Approximate), Expires: 12/07/2025 Methacholine Challenge ([id number]) PFT Routine Chronic cough Expected: 06/09/2024, Expires: 06/09/2025 documented as of this encounter Visit Diagnoses Diagnosis Abnormal CT scan of lung- Primary Other nonspecific abnormal finding of lung field RENAE (dyspnea on exertion) Other dyspnea and respiratory abnormality Multiple nodules of lung Other nonspecific abnormal finding of lung field Allergic rhinitis due to pollen, unspecified seasonality Chronic cough Cough documented in this encounter Care Teams Physician Practice Market Manager Relationship Specialty Start Date End Date Inderjit Narayan DO [address] [place] [id number] PCP - General 12/19/22 documented as of this encounter
--- OUTSIDE RECORDS SUMMARY | 2024-08-19 06:37 | XMS_ITS | Encounter Summary ---
Author Organization [facility] Address [address] [place] [address]. [place] [address] [place] [address] Care Team Providers Care Double End Sewer Name Role Phone Inderjit Narayan DO Primary Care Provider + Reason for Referral * Imaging (Emergency) - New Request Specialty Diagnoses / Procedures Referred By Contjeanie t Referred To Contact RADIOLOGY Procedures CT ABD+PEL WO CON Emy Floyd NP [address] [address] Phone: tel: fax: Referral ID Status Reason Start Date Expiration Date V isits Requested Visits Authorized [id number] New Request 04/18/2024 04/18/2025 1 1 Reason for Visit * Reason Comments Back Pain Encounter Details Date Type Department Care Team (Late st Contact Info) Description 04/18/2024 8:40 PM CDT - 04/18/2024 11:37 PM CDT Emergency [facility] Emergency Room [place], [place] [id number] Ptaricia Denney MD [address] [place] [address] Back Pain Discharge Disposition: Home or Self Care (Routine [...] on file 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 Gender Identity Not on file Sexual Orientation Not on file Occupation Industry Job Start Date Job End Date Not on file Not on file Not on file Not on file documented as of this encounter Last Filed Vital Signs Vital Sign Reading Time Taken Comments Blood Pressure 155/87 04/18/2024 10:00 PM CDT Pulse 60 04/18/2024 10:48 PM CDT Temperature 36.6 ??C (97.8 ??F) 04/18/2024 8:13 PM CD T Respiratory Rate 20 04/18/2024 10:48 PM CDT Oxygen Saturation 99% 04/18/2024 10:00 PM CDT Inhaled Oxygen Concentration - - Weight 92.1 kg (203 lb) 04/18/2024 8:13 PM CDT Height 180.3 cm (5' 11 ) 04/18/2024 8:13 PM CDT Body Mass Index 28.31 04/18/2024 8:13 PM CDT documented in this encounter Discharge Instructions * Discharge Instructions* Patricia Denney MD - 04/18/2024 11:10 PM CDT Tylenol for pain Toradol for pain but do not take any ibuprofen Advil aspirin etc. Zofran as needed for nausea Hydrocodone for breakthrough pain Flomax as prescribed Follow-up with urology Return to the emergency department for worsening symptoms * Attachments The following attachments cannot be sent through Care Everywhere. * Kidney Stones Discharge Instructions (Qatari) documented in this encounter Medications at Time of Discharge [...] (CO Q 10 OR) Take by mouth. HYDROcodone-acetaminophen (NORCO) 5-325 MG tabletIndications:Acute Pain < 7 Day Supply Take 1 tablet by mouth every 4 (four) hours as needed for Pain (max 6 tabs a day). Indications: Acute Pain < 7 Day Supply 21 tablet 4 magnesium oxide (MAG-OX) 250 MG tablet Take 1 tablet (250 mg total) by mouth daily. Multiple Vitamin (MULTIVITAMIN ADULT OR) tamsulosin (FLOMAX) 0.4 MG Cap Take 1 capsule (0.4 mg total) by mouth nightly at bedtime. 3 Turmeric (QC TUMERIC COMPLEX OR) vitamin C (ASCORBIC ACID) 1000 MG tablet Take 1 tablet (1,000 mg total) by mouth daily. cetirizine-pseudoephedrin e ER (ZYRTEC-D) 5mg-120mg 12 hr tabletIndications:Allergi c rhinitis, unspecified seasonality, unspecified trigger Take 1 tablet by mouth 2 (two) times daily. 72 tablet 2 4 05/02/20 24 fluticasone propionate (FLONASE) 50 MCG/ACT nasal spray 07/10/20 24 Gmpkbaofayj-Fpmzsscku-Etc ant (TRELEGY ELLIPTA) 100-62.5-25 MCG/ACT AEROSOL POWDER, BREATH ACTIVATED Inhale 1 puff into the lungs daily. 07/10/20 24 HYDROcodone-acetaminophen (NORCO) 5-325 MG tabletIndications:Acute Pain < 7 Day Supply Take 1 tablet by mouth every 4 (four) hours as needed for Pain (max 6 tabs a day). Indications: Acute Pain < 7 Day Supply 21 tablet 4 04/19/20 24 ketorolac (TORADOL) 10 MG tablet Take 1 tablet (10 mg total) by mouth 4 (four) times daily as needed for Pain. 20 tablet 4 04/23/20 24 ondansetron (ZOFRAN-ODT) 4 MG disintegrating tablet Take 1 tablet (4 mg total) by mouth every 8 (eight) hours as needed. 20 tablet 4 04/19/20 24 ondansetron (ZOFRAN-ODT) 4 MG disintegrating tablet Take 1 tablet (4 mg total) by mouth every 8 (eight) hours as needed. 20 tablet 4 07/10/20 24 simvastatin (ZOCOR) 40 MG tabletIndications:Pure hypercholesterolemia TAKE 1 TABLET BY MOUTH LATE IN THE DAY 90 tablet 1 4 08/10/19 25 documented as of this encounter ED Notes * Jesús Montes De Oca RN - 04/18/2024 11:36 PM CDT Provider discussed today's findings with the patient/family. The patient has been given informationregarding their treatment, follow up and concerning symptoms for which they should seek urgent or emergent attention. All questions answered. Pt ambulated out of ED with all personal belongings. IV d/c, vitals stable. * Patricia Denney MD - 04/18/2024 11:09 PM CDT Emergency Department Note Chief Complaint Chief Complaint Patient presents with Back Pain History of Present Illness Back Pain Patient presents the emergency department left flank pain. Has been ongoing for the past couple hours. He has a history of kidney stones. He has also had some burning with urination and frequency today. Medical History ALLERGIES: Review of patient's allergies indicates: Allergen Reactions Methylprednisolone Rash redness Sulfa Antibiotics Rash MEDICATIONS: Prior to Admission medications Medication Sig Start Date End Date Taking? Authorizing Provider HYDROcodone-acetaminophen (NORCO) 5-325 MG tablet Take 1 tablet by mouth every 4 (four) hours as needed for Pain (max 6 tabs a day). Indications: Acute Pain < 7 Day Supply 04/18/24 Yes Patricia Henriquez MD ketorolac (TORADOL) 10 MG tablet Take 1 tablet (10 mg total) by mouth 4 (four) times daily as needed for Pain. 04/18/24 04/23/24 Yes Patricia Denney MD ondansetron (ZOFRAN-ODT) 4 MG disintegrating tablet Take 1 tablet (4 mg total) by mouth every 8 (eight) hours as needed. 04/18/24 Yes Patricia Denney MD albuterol sulfate HFA 108 (90 Base) MCG/ACT inhaler INHALE 2 PUFFS INTO THE LUNGS EVERY 6 HOURS NEEDED FOR WHEEZE 03/01/24 Inderjit Narayan DO azelastine (ASTELIN) 0.1 % nasal spray 1 spray by Nasal route every evening. Use in each nostril asdirected 02/14/24 Inderjit Narayan DO cetirizine-pseudoephedrine ER (ZYRTEC-D) 5mg-120mg 12 hr tablet Take 1 tablet by mouth 2 (two) times daily. 02/14/24 Inderjit Narayan DO Cholecalciferol 50 MCG (2000 UT) Tab Default History Genericprovider Coenzyme Q10 (CO Q 10 OR) Take by mouth. Default History Genericprovider fluticasone propionate (FLONASE) 50 MCG/ACT nasal spray Default History Genericprovider Tauqwttynzq-Wwnycjcyw-Ylbtcf (TRELEGY ELLIPTA) 100-62.5-25 MCG/ACT AEROSOL POWDER, BREATH ACTIVATEDInhale 1 puff into the lungs daily. Default History Genericprovider magnesium oxide (MAG-OX) 250 MG tablet Take 1 tablet (250 mg total) by mouth daily. Default HistoryGenericprovider Multiple Vitamin (MULTIVITAMIN ADULT OR) Default History Genericprovider simvastatin (ZOCOR) 40 MG tablet TAKE 1 TABLET BY MOUTH LATE IN THE DAY 03/17/24 Inderjit Narayan DO tamsulosin (FLOMAX) 0.4 MG Cap Take 1 capsule (0.4 mg total) by mouth nightly at bedtime. 10/15/22 Default History Genericprovider Turmeric (QC TUMERIC COMPLEX OR) Default History Genericprovider vitamin C (ASCORBIC ACID) 1000 MG tablet Take 1 tablet (1,000 mg total) by mouth daily. 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, now has portion of skull caved in after accident around age 52 CATARACT EXTRACTION Bilateral 2020 REMOVAL OF SPERM DUCT(S) SCREENING COLONOSCOPY 04/09/2023 Repeat in 5 years FAMILY HISTORY: Family History Problem Relation Name Age of Onset Heart Disease Mother Bell Leukemia Mother Bell [place] Father Breast Cancer Sister 1/2 sister Cancer Maternal Grandfather Leukemia Grandson SOCIAL HISTORY: Social History Tobacco Use Smoking status: Never Passive exposure: Never Smokeless tobacco: Never Vaping Use Vaping status: Never Used Substance Use Topics Alcohol use: Never Drug use: Never Review of Systems ROS negative except for what is documented in the HPI Physical Exam Filed Vitals: 04/18/24201204/18/24 2200 04/18/24 2248 BP: (!) 143/80 (!) 155/87 Pulse: 77 60 Resp: 18 20 Temp: 97.8 ??F (36.6 ??C) TempSrc: Temporal SpO2: 96% 99% Weight: 92.1 kg (203 lb) Height: 1.803 m (5' 11 ) Physical Exam Vitals and nursing note reviewed. Constitutional: General: He is not in acute distress. Appearance: He is well-developed. He is not ill-appearing or diaphoretic. HENT: Head: Normocephalic and atraumatic. Right Ear: External ear normal. Left Ear: External ear normal. Nose: Nose normal. Eyes: General: Right eye: No discharge. Left eye: No discharge. Conjunctiva/sclera: Conjunctivae normal. Cardiovascular: Rate and Rhythm: Normal rate and regular rhythm. Pulmonary: Effort: Pulmonary effort is normal. No respiratory distress. Breath sounds: Normal breath sounds. No wheezing or rales. Abdominal: General: There is no distension. Palpations: Abdomen is soft. Tenderness: There is no abdominal tenderness. Musculoskeletal: General: Normal range of motion. Cervical back: Normal range of motion and neck supple. Skin: General: Skin is warm and dry. Coloration: Skin is not pale. Findings: No erythema or rash. Neurological: General: No focal deficit present. Mental Status: He is alert and oriented to person, place, and time. Motor: No abnormal muscle tone. Psychiatric: Behavior: Behavior normal. Thought Content: Thought content normal. Judgment: Judgment normal. Diagnostic Studies / Procedures ELECTROCARDIOGRAMS: No results found for this visit on 04/18/24. LABORATORY STUDIES: Results for orders placed or performed during the hospital encounter of 04/18/24 CBC W/DIFF AUTOMATED Result Value Ref Range WBC 9.75 4.5 - 11.0 x10'3/uL RBC 4.98 4.70 - 6.10 x10'6/uL HGB 15.3 14.0 - 18.0 G/DL HCT 46.1 43.0 - 54.0 % MCV 92.6 80.0 - 94.0 FL MCH 30.7 27.0 - 31.0 PG MCHC 33.2 32.0 - 36.0 G/DL RDW 12.6 11.5 - 14.5 % PLT 257 130 - 400 x10'3/uL MPV 10.1 9.3 - 12.2 FL DIFFERENTIAL TYPE AUTOMATED DIFFERENTIAL NEUTROPHILS % 54.5 % LYMPHOCYTES % 26.9 % MONOCYTES % 12.1 % EOSINOPHILS 5.2 % BASOPHILS 1.1 % IMMATURE GRANS % 0.2 % ABS. NEUTROPHILS 5.31 1.80 - 7.70 x10'3/uL ABS. LYMPHOCYTES 2.62 1.00 - 4.80 x10'3/uL ABS. MONOCYTES 1.18 (H) 0.30 - 0.82 x10'3/uL ABS. EOSINOPHILS 0.51 0.04 - 0.54 x10'3/uL ABS. BASOPHILS 0.11 (H) 0.01 - 0.08 x10'3/uL ABS. IMMATURE GRANULOCYTES 0.02 0.00 - 0.49 x10'3/uL COMPREHENSIVE METABOLIC PANEL Result Value Ref Range GLUCOSE 112 (H) 70 - 99 MG/DL BUN 12 7 - 18 MG/DL CREATININE S/P/B 1.34 (H) 0.7 - 1.3 MG/DL SODIUM S/P/B 140 136 - 145 MMOL/L POTASSIUM S/P/B 4.3 3.5 - 5.1 MMOL/L CHLORIDE S/P/B 108 97 - 115 MMOL/L CO2 28.8 21 - 32 MMOL/L CALCIUM S/P/B 9.5 8.5 - 10.1 MG/DL BILIRUBIN TOTAL S/P/B 0.6 0.2 - 1.2 MG/DL TOTAL PROTEIN S/P/B 7.5 6.4 - 8.2 G/DL ALBUMIN S/P/B 3.5 3.4 - 5.0 G/DL AST 28 15 - 37 U/L ALT 43 16 - 60 U/L ALKALINE PHOSPHATASE S/P/B 76 50 - 136 U/L ANION GAP 3.2 2 - 10 MMOL/L BUN CREATININE RATIO 9.0 6 - 26 A/G RATIO 0.9 (L) 1.0 - 2.0 RATIO GFR ESTIMATE 56 (L) >90 ML/MIN/1.73 M2 LACTIC ACID W REFLEX (SEPSIS) Result Value Ref Range LACTIC ACID VENOUS 1.3 0.4 - 2.0 MMOL/L LIPASE Result Value Ref Range LIPASE 46 13 - 75 UNITS/L URINALYSIS Result Value Ref Range Specimen Type URINE CLEAN CATCH COLOR (U) LIGHT YELLOW TRANSPARENCY CLEAR SPECIFIC GRAVITY (U) 1.018 1.001 - 1.030 U PH 5.5 5.0 - 9.0 LEUKOCYTES (U) NEGATIVE NEGATIVE NITRITES NEGATIVE NEGATIVE PROTEIN RANDOM (U) NEGATIVE <30 MG/DL GLUCOSE (U) NORMAL NORMAL MG/DL KETONES MG/DL (U) NEGATIVE NEGATIVE MG/DL UROBILINOGEN NORMAL NORMAL MG/DL BILIRUBIN (U) NEGATIVE NEGATIVE MG/DL BLOOD (U) NEGATIVE NEGATIVE IMAGING STUDIES CT ABD+PEL WO CON Final Result by User, [email or web address] (04/18 2059) [address] [address] Examination: CT abdomen and pelvis without IV contrast. Clinical Information: Left flank pain and dysuria. Comparison: No comparison. Technique: IV contrast: None Oral contrast: None. Technical comments: Standard technique. Dose reduction: This CT exam was performed using one or more of the following dose reduction techniques: Automated exposure control, adjustment of the mA and/or kV according to patient size, and/or use of iterative reconstruction technique. Findings: LOWER CHEST Heart is normal in size. Lung bases are clear. No pleural or pericardial effusions. UPPER ABDOMEN Liver and bile ducts: Normal in size and contour. No biliary dilatation. Gallbladder: No gallbladder wall thickening or pericholecystic fluid. Pancreas: Negative. Spleen: Negative. RETROPERITONEUM Adrenals: Negative. Kidneys: A 4.5 mm stone is obstructing the mid left ureter resulting in mild hydronephrosis and renal edema. Multiple nonobstructing bilateral renal stones are identified. A 2.2 cm water density exophytic posterior right renal cyst is noted, favored a simple Bosniak 1 cyst and requires no specific follow-up imaging. Lymph nodes: No lymphadenopathy in the abdomen or pelvis. BOWEL AND PERITONEUM Bowel: Normal in caliber and wall thickness. The appendix is normal. Descending and sigmoid colon diverticulosis without inflammatory changes. Free air or fluid: None. VASCULATURE The abdominal aorta is normal in caliber. PELVIS No abnormality. BONES/SOFT TISSUES No significant lesion. Impression: 1. A 4.5 mm stone is obstructing the mid left ureter resulting in mild hydronephrosis and renal edema. 2. Multiple nonobstructing bilateral renal stones are identified. 3. Descending and sigmoid colon diverticulosis without inflammatory changes. Referred By: Interpreted By: Landry Joe MD, 04/18/2024 8:55 PM ED Course / Medical Decision Making Medical Decision Making ED Course as of 04/18/242312Apr 18, 20242307 Urinalysis negative for infection Creatinine normal Pain improved after medications Patient has a history of kidney stones., Will DC with follow-up [MS] 230 4.5 mm kidney stone left side. Mild hydronephrosis noted [MS] ED Course User Index [MS] Patricia Denney MD Rhythm strip ordered and interpreted: NSR, Rate 60, No ectopy Medications tamsulosin (FLOMAX) capsule 0.4 mg (has no administration in time range) sodium chloride 0.9% bolus infusion 1,000 mL (0 mLs Intravenous Infusion Stop Time 04/18/242229) ondansetron (ZOFRAN) injection 4 mg (4 mg Intravenous Given 04/18/242239) morphine injection 4 mg (4 mg Intravenous Given 04/18/242244) ketorolac (TORADOL) injection 15 mg (15 mg Intravenous Given 04/18/242241) Clinical Impression Kidney stone on left side (Primary) Current Discharge Medication List START taking these medications Details HYDROcodone-acetaminophen (NORCO) 5-325 MG tablet Take 1 tablet by mouth every 4 (four) hours as needed for Pain (max 6 tabs a day). Indications: Acute Pain < 7 Day Supply Qty: 21 tablet, Refills: 0 Class: Eprescribe Pharmacy: [facility]/pharmacy #[address] [place] [address] (Ph #: [phone]) Comments: Per [place] law, C-II Rx's must include written & numerical notation of quantity. Quantity (in words) twenty-one Associated Diagnoses: Kidney stone on left side ketorolac (TORADOL) 10 MG tablet Take 1 tablet (10 mg total) by mouth 4 (four) times daily as needed for Pain. Qty: 20 tablet, Refills: 0 Class: Eprescribe Pharmacy: [facility]/pharmacy [address] [place] [address] (Ph #: [phone]) ondansetron (ZOFRAN-ODT) 4 MG disintegrating tablet Take 1 tablet (4 mg total) by mouth every 8 (eight) hours as needed. Qty: 20 tablet, Refills: 0 Class: [facility] [place] [address] (Ph #: [phone]) Disposition: Discharge Follow-Up: Inderjit Narayan, [address] [facility] [id number] Schedule an appointment as soon as possible for a visit Calvin Jane MD [address] [place] [address] Schedule an appointment as soon as possible for a visit in 3 days PATRICIA DENNEY MD 04/18/2024 Patricia Denney MD 04/18/24 0706 * Marianela Glasgow RN - 04/18/2024 9:38 PM CDT Bed: 20 Expected date: Expected time: Means of arrival: Comments: Jovan * Emy Floyd NP - 04/18/2024 8:27 PM CDT [place], [place] EMERGENCY DEPARTMENT ENCOUNTER Medical Screening Examination 04/18/24 8:27 PM Chief Complaint : Back Pain HPI : Brendon Aldana is a 74-year-old male who presents to the Emergency Department today for evaluation of left flank pain , dysuria, pain today. Vital Signs: Filed Vitals: 04/18/242012 BP: (!) 143/80 Pulse: 77 Resp: 18 Temp: 97.8 ??F (36.6 ??C) TempSrc: Temporal SpO2: 96% Weight: 92.1 kg (203 lb) Height: 1.803 m (5' 11 ) Physical exam: A brief physical exam was completed to facilitate/expedite patient care. Helms findings include: left CVA Plan: Necessary labs/imaging/medications ordered to initiate pt care. Initial EKG noted at time of performance. Please note that due to size capacity of triage room where the MSE exam was performed, and patient privacy concerns I am unable to do a full complete physical assessment on patient. Emy Floyd APRN, dictated portions of this note using [email or web address] speech recognition software. Occasional wrong word or sound-alike substitutions may have occurred due to the inherent limitations ofvoice recognition software. Please read carefully and recognize, using context, where the substitutions may have occurred. Emy Floyd NP 04/18/242027 Cosigned by Patrick Song MD at 04/18/2024 8:29 PM CDT * Jennifer Verma RN - 04/18/2024 8:16 PM CDT Pt ambulated to triage with complains of left flank pain. Pt stated his back pain started today andhas gotten worse. Pt reports a difficult time urinating. Hx of kidney stones in the past. 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/CASE MANAGER Appointment [facility] [place] [address] Guido Rider DO [facility] [address] [place] [address] 10/13/2024 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 Office Visit [facility] Mult[facility]pecialty Care - [facility] [address] [facility] [address] [place] [address] Guido Rider DO [address] [facility] [address] [place] [address] 01/08/2025 2:20 PM CDT Office Visit [facility] Family & Internal [address] [phone] Inderjit Narayan, DO [address] [place] [address] documented as of this encounter Procedures Procedure Name Priority Date/Time Associated Diagnosis Comments LACTIC ACID W REFLEX (SEPSIS) STAT 04/18/2024 9:09 PM CDT HC URINALYSIS AUTO W/O MICRO STAT 04/18/2024 9:09 PM CDT COMPREHENSIVE METABOLIC PANEL STAT 04/18/2024 9:09 PM CDT CBC W/DIFF AUTOMATED STAT 04/18/2024 9:09 PM CDT LIPASE STAT 04/18/2024 9:[address] ABD+PEL WO CON STAT 04/18/2024 8:4 7 PM CDT documented in this encounter Results * URINALYSIS (04/18/2024 9:09 PM CDT) SPECIMEN TYPE URINE CLEAN CATCH 04/18/2024 9:[address] [facility] COLOR (U) LIGHT YELLOW 04/18/2024 9:[address] [facility] TRANSPARENCY CLEAR 04/18/2024 9:[address] [facility] SPECIFIC GRAVITY (U) 1.018 1.001 - 1.030 04/18/2024 9:[address] [facility] U PH 5.5 5.0 - 9.0 04/18/2024 9:[address] [facility] LEUKOCYTES (U) NEGATIVE NEGATIVE 04/18/2024 9:[address] [facility] NITRITES NEGATIVE NEGATIVE 04/18/2024 9:[address] [facility] PROTEIN RANDOM (U) NEGATIVE <30 MG/DL 04/18/2024 9:[address] [facility] GLUCOSE (U) NORMAL NORMAL MG/DL 04/18/2024 9:[address] [facility] KETONES MG/DL (U) NEGATIVE NEGATIVE MG/DL 04/18/2024 9:[address] [facility] UROBILINOGEN NORMAL NORMAL MG/DL 04/18/2024 9:[address] [facility] BILIRUBIN (U) NEGATIVE NEGATIVE MG/DL 04/18/2024 9:[address] [facility] BLOOD (U) NEGATIVE NEGATIVE 04/18/2024 9:[address] [facility] URINE SPECIMEN OBTAINED BY CLEAN CATCH PROCEDURE / Unknown 04/18/2024 9:09 PM CDT Emy Floyd CAREER PLACEMENT SPECIALIST URINE ORDERABLES Final Result [facility] [address] [place] [address], [place] [phone] * LIPASE (04/18/2024 9:09 PM CDT) LIPASE 46 13 - 75 UNITS/L 04/18/2024 9:[address] [facility] 04/18/2024 9:09 PM CDT Emy Floyd CAREER PLACEMENT SPECIALIST LABORATORY Final Result [facility] [address] [place] [address], [place] [phone] * LACTIC ACID W REFLEX (SEPSIS) (04/18/2024 9:09 PM CDT) LACTIC ACID VENOUS 1.3 0.4 - 2.0 MMOL/L 04/18/2024 9:[address] [facility] 04/18/2024 9:09 PM CDT Emy Floyd CAREER PLACEMENT SPECIALIST LABORATORY Final Result [facility] [address] [place] [address], [place] [phone] * (ABNORMAL) COMPREHENSIVE METABOLIC PANEL (04/18/2024 9:09 PM CDT) Pathologist [facility] GLUCOSE 112(H) 70 - 99 MG/DL 04/18/2024 9:[address] [facility] BUN 12 7 - 18 MG/DL 04/18/2024 9:[address] [facility] CREATININE S/P/B 1.34(H) 0.7 - 1.3 MG/DL 04/18/2024 9:[address] [facility] SODIUM S/P/B 140 136 - 145 MMOL/L 04/18/2024 9:[address] [facility] POTASSIUM S/P/B 4.3 3.5 - 5.1 MMOL/L 04/18/2024 9:[address] [facility] CHLORIDE S/P/B 108 97 - 115 MMOL/L 04/18/2024 9:[address] [facility] CO2 28.8 21 - 32 MMOL/L 04/18/2024 9:[address] [facility] CALCIUM S/P/B 9.5 8.5 - 10.1 MG/DL 04/18/2024 9:[address] [facility] BILIRUBIN TOTAL S/P/B 0.6 0.2 - 1.2 MG/DL 04/18/2024 9:[address] [facility] Comment: THIS ASSAY IS NOT RECOMMENDED FOR PATIENTS UNDERGOING TREATMENT WITH ELTROMBOPAG DUE TO THE POTENTIAL FOR FALSELY ELEVATED RESULTS. TOTAL PROTEIN S/P/B 7.5 6.4 - 8.2 G/DL 04/18/2024 9:[address] [facility] ALBUMIN S/P/B 3.5 3.4 - 5.0 G/DL 04/18/2024 9:[address] [facility] AST 28 15 - 37 U/L 04/18/2024 9:[address] [facility] ALT 43 16 - 60 U/L 04/18/2024 9:[address] [facility] ALKALINE PHOSPHATASE S/P/B 76 50 - 136 U/L 04/18/2024 9:[address] [facility] ANION GAP 3.2 2 - 10 MMOL/L 04/18/2024 9:[address] [facility] BUN CREATININE RATIO 9.0 6 - 26 04/18/2024 9:[address] [facility] A/G RATIO 0.9(L) 1.0 - 2.0 RATIO 04/18/2024 9:[address] [facility] GFR ESTIMATE 56(L) >90 ML/MIN/1.7 3 M2 04/18/2024 9:[address] [facility] Comment: NOTE: eGFR is not calculated for patients <18 years of age or gender unknown. This is an estimated GFR calculation using the new CKD EPI creatinine equation without race and so does not require a correction factor for race. This estimated GFR should not be used for calculating drug doses. 04/18/2024 9:09 PM CDT Emy Floyd NP LABORATORY Final Result [facility] [address] [place] [address], * (ABNORMAL) CBC W/DIFF AUTOMATED (04/18/2024 9:09 PM CDT) [facility] WBC 9.75 4.5 - 11.0 x10'3/uL 04/18/2024 9:[address] [facility] [facility] RBC 4.98 4.70 - 6.10 x10'6/uL 04/18/2024 9:[address] [facility] HGB 15.3 14.0 - 18.0 G/DL 04/18/2024 9:[address] [facility] HCT 46.1 43.0 - 54.0 % 04/18/2024 9:[address] [facility] MCV 92.6 80.0 - 94.0 FL 04/18/2024 9:[address] [facility] MCH 30.7 27.0 - 31.0 PG 04/18/2024 9:[address] [facility] MCHC 33.2 32.0 - 36.0 G/DL 04/18/2024 9:[address] [facility] RDW 12.6 11.5 - 14.5 % 04/18/2024 9:[address] [facility] PLT 257 130 - 400 x10'3/uL 04/18/2024 9:[address] [facility] MPV 10.1 9.3 - 12.2 FL 04/18/2024 9:[address] [facility] DIFFERENTIAL TYPE AUTOMATED DIFFERENTIAL 04/18/2024 9:[address] [facility] NEUTROPHILS % 54.5 % 04/18/2024 9:[address] [facility] LYMPHOCYTES % 26.9 % 04/18/2024 9:[address] [facility] MONOCYTES % 12.1 % 04/18/2024 9:[address] [facility] EOSINOPHILS 5.2 % 04/18/2024 9:[address] [facility] BASOPHILS 1.1 % 04/18/2024 9:[address] [facility] IMMATURE GRANS % 0.2 % 04/18/20 9:[address] [facility] ABS. NEUTROPHILS 5.31 1.80 - 7.70 x10'3/uL 04/18/2024 9:[address] [facility] ABS. LYMPHOCYTES 2.62 1.00 - 4.80 x10'3/uL 04/18/2024 9:[address] [facility] ABS. MONOCYTES 1.18(H) 0.30 - 0.82 x10'3/uL 04/18/2024 9:[address] [facility] ABS. EOSINOPHILS 0.51 0.04 - 0.54 x10'3/uL 04/18/2024 9:[address] [facility] ABS. BASOPHILS 0.11(H) 0.01 - 0.08 x10'3/uL 04/18/2024 9:[address] [facility] ABS. IMMATURE GRANULOCYTES 0.02 0.00 - 0.49 x10'3/uL 04/18/2024 9:[address] [facility] 04/18/2024 9:09 PM CDT us Emy Floyd NP LABORATORY Final Result [facility] [address] [place] [address], * CT ABD+PEL WO CON (04/18/2024 8:47 PM CDT) Anatomical Region Laterality Modality Abdomen Computed Tomogra phy 04/18/2024 8:55 PM CDT Impressions 04/18/2024 8:58 PM CDT Impression: 1. ??A 4.5 mm stone is obstructing the mid left ureter resulting in mild hydronephrosis and renal edema. 2. ??Multiple nonobstructing bilateral renal stones are identified. 3. ??Descending and sigmoid colon diverticulosis without inflammatory changes. Referred By: ?? Interpreted By: Landry Joe MD, 04/18/2024 8:55 PM Narrative 04/18/2024 8:58 PM CDT [facility] [address] [place], [place] [address] Examination: CT abdomen and pelvis without IV contrast. Clinical Information: Left flank pain and dysuria. Comparison: No comparison. Technique: IV contrast: None Oral contrast: None. Technical comments: Standard technique. Dose reduction: This CT exam was performed using one or more of the following dose reduction techniques: Automated exposure control, adjustment of the mA and/or kV according to patient size, and/or use of iterative reconstruction technique. Findings: LOWER CHEST Heart is normal in size. Lung bases are clear. No pleural or pericardial effusions. UPPER ABDOMEN Liver and bile ducts: Normal in size and contour. No biliary dilatation. Gallbladder: No gallbladder wall thickening or pericholecystic fluid. Pancreas: Negative. Spleen: Negative. RETROPERITONEUM Adrenals: Negative. Kidneys: A 4.5 mm stone is obstructing the mid left ureter resulting in mild hydronephrosis and renal edema. Multiple nonobstructing bilateral renal stones are identified. A 2.2 cm water density exophytic posterior right renal cyst is noted, favored a simple Bosniak 1 cyst and requires no specific follow-up imaging. Lymph nodes: No lymphadenopathy in the abdomen or pelvis. BOWEL AND PERITONEUM Bowel: Normal in caliber and wall thickness. The appendix is normal. Descending and sigmoid colon diverticulosis without inflammatory changes. Free air or fluid: None. VASCULATURE The abdominal aorta is normal in caliber. PELVIS No abnormality. BONES/SOFT TISSUES No significant lesion. Procedure Note Landry Joe MD - 04/18/2024 [facility] [address] [place], [place] [address] Examination: CT abdomen and pelvis without IV contrast. Clinical Information: Left flank pain and dysuria. Comparison: No comparison. Technique: IV contrast: None Oral contrast: None. Technical comments: Standard technique. Dose reduction: This CT exam was performed using one or more of thefollowing dose reduction techniques: Automated exposure control,adjustment of the mA and/or kV according to patient size, and/or use ofiterative reconstruction technique. Findings: LOWER CHEST Heart is normal in size. Lung bases are clear. No pleural or pericardialeffusions. UPPER ABDOMEN Liver and bile ducts: Normal in size and contour. No biliary dilatation. Gallbladder: No gallbladder wall thickening or pericholecystic fluid. Pancreas: Negative. Spleen: Negative. RETROPERITONEUM Adrenals: Negative. Kidneys: A 4.5 mm stone is obstructing the mid left ureter resulting inmild hydronephrosis and renal edema. Multiple nonobstructing bilateralrenal stones are identified. A 2.2 cm water density exophytic posteriorright renal cyst is noted, favored a simple Bosniak 1 cyst and requires nospecific follow-up imaging. Lymph nodes: No lymphadenopathy in the abdomen or pelvis. BOWEL AND PERITONEUM Bowel: Normal in caliber and wall thickness. The appendix is normal.Descending and sigmoid colon diverticulosis without inflammatorychanges. Free air or fluid: None. VASCULATURE The abdominal aorta is normal in caliber. PELVIS No abnormality. BONES/SOFT TISSUES No significant lesion. Impression: 1. A 4.5 mm stone is obstructing the mid left ureter resulting in mildhydronephrosis and renal edema. 2. Multiple nonobstructing bilateral renal stones are identified. 3. Descending and sigmoid colon diverticulosis without inflammatorychanges. Referred By: Interpreted By: Landry Joe MD, 04/18/2024 8:55 PM Emy Greeneud CAREER PLACEMENT SPECIALIST CT Final Result documented in this encounter Visit Diagnoses Diagnosis Kidney stone on left side- Primary Calculus of kidney documented in this encounter Administered Medications Inactive Administered Medications - up to 3 most recent administrations Medication Order MAR Action Action Date Dose Rate Site ketorolac (TORADOL) injection 15 mg 15 mg, Intravenous, Once, 1 dose, On Wed04/18/24 at 2230, For IV administration, give over 15 seconds. Given 04/18/2024 10:42 PM CDT 15 mg morphine injection 4 mg 4 mg, Intravenous, Once, 1 dose, On Wed04/18/24 at 2230 Given 04/18/2024 10:45 PM CDT 4 mg ondansetron (ZOFRAN) injection 4 mg 4 mg, Intravenous, Once, 1 dose, On Wed04/18/24 at 2230, IV push over 2-5 minutes. Given 04/18/2024 10:40 PM CDT 4 mg sodium chloride 0.9% bolus infusion 1,000 mL 1,000 mL, Intravenous, Administer over 60 Minutes, Once, 1 dose, On Wed04/18/24 at 2030 New Bag 04/18/2024 9:11 PM CDT 1,000 mLs 1000 mL/hr tamsulosin (FLOMAX) capsule 0.4 mg 0.4 mg, Oral, Once, 1 dose, On Wed04/18/24 at 2315 Given 04/18/2024 11:21 PM CDT 0.4 mg documented in this encounter Active and Recently Administered Medications Times are shown in CDT. Scheduled Medication Order 04/16/2024 04/17/2024 04/18/2024 ketorolac (TORADOL) injection 15 mg (COMPLETED) 15 mg, Intravenous, Once, 1 dose, On Wed04/18/24 at 2230, For IV administration, give over 15 seconds. 2241 (Given - Provid er: Jesús Montes De Oca, BUCKY) morphine injection 4 mg (COMPLETED) 4 mg, Intravenous, Once, 1 dose, On Wed04/18/24 at 2230 224 (Given - Provid er: Jesús Montes De Oca RN) ondansetron (ZOFRAN) injection 4 mg (COMPLETED) 4 mg, Intravenous, Once, 1 dose, On Wed04/18/24 at 2230, IV push over 2-5 minutes. 2240 (Given - Provid er: Jesús Montes De Oca RN) sodium chloride 0.9% bolus infusion 1,000 mL (COMPLETED) 1,000 mL, Intravenous, Administer over 60 Minutes, Once, 1 dose, On Wed04/18/24 at 2030 2111 (New Bag - Prov ider: Radha Sneed RN)2230 (Infusion Stop Time - Provider: Jones Kelly RN) tamsulosin (FLOMAX) capsule 0.4 mg (COMPLETED) 0.4 mg, Oral, Once, 1 dose, On Wed04/18/24 at 2315 2321 (Given - Provid er: Jesús Montes De Oca RN) documented in this encounter Care Teams Double End Sewer Relationship Specialty Start Date End Date Inderjit Narayan DO [address] [place] [id number] PCP - General 12/19/22 documented as of this encounter
--- OUTSIDE RECORDS SUMMARY | 2024-08-19 06:37 | XMS_ITS | Encounter Summary ---
Author Organization [facility] Address [address] [address] Care Team Providers Care Health Occupations Instructor Name Role Phone Landry Fernandez DO Primary Care Provider [phone] Encounter Details Date Type Department Care Team (Late st Contact Info) Description 11/04/2020 Orders Only [facility] - Cardiology [address] [place] [address] Emy Ballard RN Social History Tobacco Use Types Packs/Day Years [...] on filedocumented in this encounter Care Teams Health Occupations Instructor Relationship Specialty Start Date End Date Landry Fernandez DO PCP - General Family Medicine 04/19/16 documented as of this encounter
--- OUTSIDE RECORDS SUMMARY | 2024-08-19 06:37 | XMS_ITS | Encounter Summary ---
Author Organization [facility] Address [address] [place] [address]. [place] [address] [place] [address] Care Team Providers Care Fertilizer Supervisor Name Role Phone Luiz Smalls DO Primary Care Provider + Reason for Referral * Imaging (Routine) - Closed Specialty Diagnoses / Procedures Referred By Contac t Referred To Contact RADIOLOGY Diagnoses Subacute cough Procedures CT CHEST WO CON Luiz Smalls DO [address] [place] [address] Phone: tel: fax: Referral ID Status Reason Start Date Expiration Date Visits Re quested Visits Authorized [id number] Closed 02/29/2024 03/01/2025 1 1 Reason for Visit * Imaging (Routine) - Closed Specialty Diagnoses / Procedures Referred By Contac t Referred To Contact RADIOLOGY Diagnoses Subacute cough Procedures CT CHEST WO CON Luiz Smalls DO [address] [place] [address] Phone: tel: fax: Referral ID Status Reason Start Date Expiration Date Visits Re quested Visits Authorized [id number] Closed 02/29/2024 03/01/2025 1 1 Encounter Details Date Type Department Care Team (Latest Contact Info) Description 03/08/2024 3:27 PM CDT - 03/08/2024 11:59 PM CDT Hospital Encounter [facility] [address] [place] [address] Luiz Smalls, DO [address] [place] [address] Discharge Disposition: Home or Self Care (Routine [...] on file Legal Sex Male 10:29 AM HARPOONER Gender Identity Not on file Sexual Orientation [...] daily. 30 capsule 2 4 03/23/20 24 simvastatin (ZOCOR) 40 MG tabletIndications:Pure hypercholesterolemia TAKE 1 TABLET BY MOUTH LATE IN THE DAY. 90 tablet 1 4 03/17/20 24 documented as of this encounter Plan of Treatment Upcoming Encounters Date Type Department Care Team (Late st Contact Info) Description 08/22/2024 8:00 AM HARPOONER Laboratory Only [facility] Family & Internal Medicine [address] [address] Luiz Smalls DO [address] [place] [address] 09/08/2024 2:30 PM HARPOONER Appointment [facility] [address] [place] [address] Guido Rider DO [address] [facility] [address] [place] [address] 10/05/2024 3:00 PM HARPOONER Appointment [facility] [place] [address] Guido Rider DO 3 [facility] [address] [place] [address] 10/13/2024 10:30 AM HARPOONER Office Visit [facility] Multispecialty Care - [facility] [address] [facility] [address] [facility] [address] [place] [address] Yefri Ridersohammaikel [address] [facility] [address] [place] [address] 01/08/2025 2:20 PM CDT Office Visit [facility] Family & Internal Medicine - [address] [phone] [place] [address] [place] [address] documented as of this encounter Procedures Procedure Name Priority Date/Time Associated Diagnosis Comments CT CHEST WO CON Routine 03/08/2024 3:38 PM CDT Subacute cough documented in this encounter Results * CT CHEST WO CON (03/08/2024 3:38 PM CDT) Anatomical Region Laterality Modality Chest Computed Tomogra phy 03/14/2024 9:26 AM CDT Impressions 03/14/2024 9:30 AM CDT IMPRESSION: 1. ??Mild patchy groundglass opacities in the lung apices and an 11 mm groundglass nodule left lung apex. Atypical infection is a consideration. Chronic airway inflammation or subtle changes of hypersensitivity pneumonitis could have this appearance. Clinical follow-up recommended. 6 month follow-up CT chest without contrast recommended. 2. ??Coronary calcifications. Small hiatal hernia. 3. ??Nonobstructing calculi of the kidneys partially imaged. Fleischner Society recommendations utilized for this report. Ordered By: LUIZ SMALLS Interpreted By: Jared Mccauley, 03/14/2024 9:26 AM Narrative 03/14/2024 9:30 AM CDT EXAMINATION: CT CHEST WITHOUT CONTRAST EXAM DATE/TIME: 03/08/2024 3:27 PM REASON FOR EXAM: ??Cough, chronic/persisting > 8 weeks, failed empiric treatment ? Upper respiratory infection, sinus drainage, persistent cough [...] deformity. Moderate degenerative changes of the spine. Procedure Note Jared Mccauley MD - 03/14/2024 EXAMINATION: CT CHEST WITHOUT CONTRAST EXAM DATE/TIME: 03/08/2024 3:27 PM REASON FOR EXAM: Cough, chronic/persisting > 8 weeks, failed empirictreatment Upper respiratory infection, sinus drainage, persistent cough COMPARISON: None TECHNIQUE: Computed tomography was performed of the chest withoutintravenous contrast. A dose lowering technique was used for this procedure, which may include,but is not limited to, dose reduction technique, automated exposurecontrol, iterative reconstruction, ALARA (As Low As ReasonablyAchievable), or Image Gently techniques. FINDINGS: 3 mm nodule right lower lobe axial image 104. Subsegmental atelectasis of the lung bases, likely chronic scarring. A few patchy groundglass opacities of the lung apices including a 11 mmgroundglass nodule left upper lobe axial image 21. No pneumothorax or pleural effusion. On soft tissue windows, no axillary or supraclavicular lymphadenopathy. On mediastinal windows, no evidence of hilar or mediastinallymphadenopathy. Heart size normal. No pericardial effusion. Coronarycalcifications. Small hiatal hernia. Limited evaluation of the upper abdomen demonstrates no acuteabnormality. Nonobstructing calculi both kidneys. On bone windows, no suspicious skeletal lesion or acute compressionfracture deformity. Moderate degenerative changes of the spine. IMPRESSION: 1. Mild patchy groundglass opacities in the lung apices and an 11 mmgroundglass nodule left lung apex. Atypical infection is a consideration.Chronic airway inflammation or subtle changes of hypersensitivitypneumonitis could have this appearance. Clinical follow-up recommended. 6month follow-up CT chest without contrast recommended. 2. Coronary calcifications. Small hiatal hernia. 3. Nonobstructing calculi of the kidneys partially imaged. Fleischner Society recommendations utilized for this report. Ordered By: LUIZ SMALLS Interpreted By: Jared Mccauley, 03/14/2024 9:26 AM Luiz Smalls DO CT Final Re sult documented in this encounter Visit Diagnoses Diagnosis Subacute cough Cough documented in this encounter Care Teams Fertilizer Supervisor Relationship Specialty Start Date End Date Luiz Smalls DO [address] [place] [address] PCP - General 12/19/22 documented as of this encounter
--- OUTSIDE RECORDS SUMMARY | 2024-08-19 06:37 | XMS_ITS | Encounter Summary ---
Author Organization [facility] Address [address] [place] [address]. [place] [address] [place] [address] Care Team Providers Care Filter Tank Tender Helper Head Name Role Phone Luiz Smalls DO Primary Care Provider + Reason for Visit * Reason Onset Date Comments Medication Request 12/20/2023 Encounter Details Date Type Department Care Team (Late st Contact Info) Description 12/20/2023 Telephone [facility] Medical [facility] Family & Internal Medicine [facility] [address] [place] [address] Luiz Smalls DO [address] [place] [address] Medication Request Social History Tobacco Use Types Packs/Day Years Used Date Smoking Tobacco: Never Passive Smoke Exposure: Never Smokeless Tobacco: Never Alcohol Use Standard Drinks/Week Comments Never 0 (1 standard drink = 0.6 oz pur e alcohol) PHQ-2 Answer Date Recorded Patient Health Questionnaire-2 Score 0 11/17/2023 Sex and Gender Information Value Date Recorded Sex Assigned at Not on file Legal Sex Male 10:29 AM REMNANT SORTER Gender Identity Not on file Sexual Orientation Not on file Occupation Industry Job Start Date Job End Date Not on file Not on file Not on file Not on file documented as of this encounter Progress Notes * DO Carson Mcdonald 12/28/2023 1:19 PM CDTAddended by: LUIZ SMALLS on: 12/28/2023 01:19 PM Modules accepted: Orders * Prachi Thomson MA - 12/28/2023 10:59 AM CDTAddended by: PRACHI THOMSON on: 12/28/2023 10:59 AM Modules accepted: Orders * Prachi Thomson MA - 12/28/2023 10:59 AM CDT Please resend corrected qty * REJI Styles - 12/28/2023 8:43 AM CDT Message from pharmacy: Patient requesting a 24 count box * Luiz Smalls DO - 12/23/2023 2:30 PM CDTAddended by: LUIZ SMALLS on: 12/23/2023 02:30 PM Modules accepted: Orders * Prachi Thomson MA - 12/23/2023 2:12 PM CDTAddended by: PRACHI THOMSON on: 12/23/2023 02:12 PM Modules accepted: Orders * Prachi Thomson MA - 12/23/2023 2:12 PM CDT Please advise and send * Prachi Mays - 12/22/2023 7:23 AM CDT Patient meant to ask for Zyrtec D instead of regular Zyrtec. Please re send. * Prachi Thomson MA - 12/20/2023 1:46 PM CDTAddended by: PRACHI THOMSON on: 12/20/2023 01:46 PM Modules accepted: Orders * Jessica Farr - 12/20/2023 11:26 AM CDT Refill request received from Patient Medication: cetirizine (ZYRTEC) 10 MG tablet Pharmacy: [facility]/pharmacy #[id number] [place] [address] - [address] [place] [address] Last visit with LUIZ SMALLS in FAMILY PRACTICE was on: 07/22/2023 in [facility] Appointments Date Time Provider Department Center 01/24/2024 2:20 PM [facility] documented in this encounter Plan of Treatment Upcoming Encounters Date Type Department Care Team (Late st Contact Info) Description 08/22/2024 8:00 AM REMNANT SORTER Laboratory Only [facility] Medical [facility] Family & Internal Medicine - [place] [address] [place] [address] Luiz Smalls DO [address] [place] [address] 09/08/2024 2:30 PM REMNANT SORTER Appointment [facility] CT [address] [place] [address] Guido Rider DO 3 [facility] [address] [place] [address] 10/05/2024 3:00 PM REMNANT SORTER Appointment [facility] Respiratory Therapy [address] [facility] [place] [address] Guido Rider DO [facility] [address] [place] [address] 10/13/2024 10:30 AM REMNANT SORTER Office Visit [facility] Multispecialty Care - [facility] [address] [facility] [place] [address] Guido Rider DO [address] [facility] [address] [place] [address] 01/08/2025 2:20 PM CDT Office Visit [facility] Medical [facility] Family & Internal Medicine [address] [address] [place] [address] [place] [address] documented as of this encounter Visit Diagnoses Diagnosis Allergic rhinitis, unspecified seasonality, unspecified trigger- Primary documented in this encounter Care Teams Filter Tank Tender Helper Head Relationship Specialty Start Date End Date Luiz Smalls DO [address] [place] [address] PCP - General 12/19/22 documented as of this encounter
--- OUTSIDE RECORDS SUMMARY | 2024-08-19 06:37 | XMS_ITS | Encounter Summary ---
Author Organization [facility] Address [address] [place] [address]. [place] [address] [place] [address] Care Team Providers Care Aoc Plans Intelligence Officer Name Role Phone Inderjit Narayan DO Primary Care Provider + Reason for Visit * Reason Comments Image (SCAN) Encounter Details Date Type Department Care Team (Latest Contact Info) Description 04/24/2024 Scan HEALTH INFO [facility] Scanned, Doc Med Group Image (SCAN) Social History Tobacco Use Types Packs/Day Years Used Date Smoking Tobacco: Never Passive Smoke Exposure: Never Smokeless Tobacco: Never Alcohol Use Standard Drinks/Week Comments Never 0 (1 standard drink = 0.6 oz pur e alcohol) PHQ-2 Answer Date Recorded Patient Health Questionnaire-2 Score 0 11/17/2023 Sex and Gender Information Value Date Recorded Sex Assigned at Not on file Legal Sex Male 10:29 AM NECK BAND OPERATOR Gender Identity Not on file Sexual Orientation Not on file Occupation Industry Job Start Date Job End Date Not on file Not on file Not on file Not on file documented as of this encounter Plan of Treatment Upcoming Encounters Date Type Department Care Team (Late st Contact Info) Description 08/22/2024 8:00 AM NECK BAND OPERATOR Laboratory [facility] Family & Internal Medicine - [place] [address] [place] [address] Inderjit Narayan DO [address] [place], [place] [id number] 09/08/2024 2:30 PM NECK BAND OPERATOR Appointment [facility] [address] [place] [address] Guido Rdier, DO [address] [facility] [address] [place] [address] 10/05/2024 3:00 PM NECK BAND OPERATOR Appointment [facility] [place] [address] Guido Rider DO [facility] [address] [place] [address] 10/13/2024 10:30 AM NECK BAND OPERATOR Office [facility] Mult[facility]ty Care - [facility] [address] [facility] [address] [place] [address] Guido Rider DO [facility] [address] [place] [address] 01/08/2025 2:20 PM CDT Office Visit [facility] Family & Internal Medicine [address] [address] [place] [address] [place] [address] documented as of this encounter Procedures Procedure Name Priority Date/Time Associated Diagnosis Comments IMAGE GENERIC 04/24/2024 documented in this encounter Results * IMAGE GENERIC (04/24/2024) Anatomical Region Laterality Modality Other 04/24/2024 us Doc Med Group Scanned SCANNING Final Resu lt documented in this encounter Visit Diagnoses Not on filedocumented in this encounter Care Teams Aoc Plans Intelligence Officer Relationship Specialty Start Date End Date Inderjit Narayan DO [address] [place] [address] PCP - General 12/19/22 documented as of this encounter
--- OUTSIDE RECORDS SUMMARY | 2024-08-19 06:37 | XMS_ITS | Encounter Summary ---
Author Organization [facility] Address [address] [place] [address]. [place] [address] [place] [address] Care Team Providers Care Android Ios Developer Name Role Phone Inderjit Narayan DO Primary Care Provider + Reason for Visit * Reason Onset Date Comments Referral 03/06/2024 Encounter Details Date Type Department Care Team (Late st Contact Info) Description 03/06/2024 Telephone [facility] Medical Group Family & Internal Medicine [facility] [address] [place] [address] Inderjit Narayan DO [address] [place] [address] Referral Social History Tobacco Use Types Packs/Day Years Used Date Smoking Tobacco: Never Passive Smoke Exposure: Never Smokeless Tobacco: Never Alcohol Use Standard Drinks/Week Comments Never 0 (1 standard drink = 0.6 oz pur e alcohol) PHQ-2 Answer Date Recorded Patient Health Questionnaire-2 Score 0 11/17/2023 Sex and Gender Information Value Date Recorded Sex Assigned at Not on file Legal Sex Male 10:29 AM HARM REDUCTION WORKER Gender Identity Not on file Sexual Orientation Not on file Occupation Industry Job Start Date Job End Date Not on file Not on file Not on file Not on file documented as of this encounter Progress Notes * Prachi Pulliam MA - 03/07/2024 10:33 AM CDT Spoke with patient and informed him to call scheduling and ph # given. The patient v/u. Patient didnot have further questions at this time * Prachi Mays - 03/06/2024 7:23 AM CDT Alyssa got a call about his Pulmonology assessment and it cannot be scheduled at [facility] until May 22 and he would like to know if [place] or [place] could get him in sooner? documented in this encounter Plan of Treatment Upcoming Encounters Date Type Department Care Team (Late st Contact Info) Description 08/22/2024 8:00 AM HARM REDUCTION WORKER Laboratory Only [facility] Family & Internal Medicine - [address] [address] Inderjit Narayan, DO [address] [place] [address] 09/08/2024 2:30 PM HARM REDUCTION WORKER Appointment [facility] [address] [place] [address] Guido Rider DO 3 [facility] [address] [place] [address] 10/05/2024 3:00 PM HARM REDUCTION WORKER Appointment [facility] [place] [address] Guido Rider 3 [facility] [address] [place] [address] 10/13/2024 10:30 AM HARM REDUCTION WORKER Office Visit [facility] Multispecialty Care - [address] [place] [address] Guido Rider DO 3 [facility] [address] [place] [address] 01/08/2025 2:20 PM CDT Office Visit [facility] Medical Group Family & Internal Medicine [address] [address] [place] [address] [place] [address] documented as of this encounter Visit Diagnoses Not on filedocumented in this encounter Care Teams Android Ios Developer Relationship Specialty Start Date End Date Inderjit Narayan DO [address] [place] [address] PCP - General 12/19/22 documented as of this encounter
--- OUTSIDE RECORDS SUMMARY | 2024-08-19 06:37 | XMS_ITS | Encounter Summary ---
Author Organization [facility] Address [address] [place] [address]. [place], [place] [address] [place] [address] Care Team Providers Care Child Care Aide Name Role Phone Inderjit Narayan DO Primary Care Provider + Reason for Referral * Procedure (Routine) - New Request Specialty Diagnoses / Procedures Referred By Contac t Referred To Contact Diagnoses Subacute cough Procedures Complete PFT (pre/post Edison, Lung Vol, Diff Capacity) (02209, 26224, 22887, 41852) Inderjit Narayan DO [address] [id number] Phone: tel: fax: Referral ID Status Reason Start Date Expiration Date V isits Requested Visits Authorized [id number] New Request 02/29/2024 03/31/2025 1 1 Reason for Visit * Procedure (Routine) - New Request Specialty Diagnoses / Procedures Referred By Contac t Referred To Contact Diagnoses Subacute cough Procedures Complete PFT (pre/post Edison, Lung Vol, Diff Capacity) (32319, 50788, 31348, 90528) Inderjit Narayan DO [address] [place] [address] Phone: tel: fax: Referral ID Status Reason Start Date Expiration Date V isits Requested Visits Authorized [id number] New Request 02/29/2024 03/31/2025 1 1 Encounter Details Date Type Department Care Team (Latest Contact Info) Description 03/17/2024 2:36 PM CDT - 03/17/2024 11:59 PM CDT Hospital Encounter [facility] [place] [address] Inderjit Narayan DO [address] [place] [address] Discharge Disposition: Home or Self Care (Routine [...] on file Legal Sex Male 10:29 AM CONSULTANT INTERN Gender Identity Not on file Sexual Orientation [...] 30 mL 1 4 Cholecalciferol 50 MCG (1999 UT) Tab Coenzyme Q10 (CO Q 10 OR) Take by mouth. magnesium oxide (MAG-OX) 250 MG tablet Take 1 tablet (250 mg total) by mouth daily. Multiple Vitamin (MULTIVITAMIN ADULT OR) tamsulosin (FLOMAX) 0.4 MG Cap Take 1 capsule (0.4 mg total) by mouth nightly at bedtime. 03/09/202 3 Turmeric (QC TUMERIC COMPLEX OR) vitamin [...] 08/10/19 25 documented as of this encounter Procedure Notes * Guido Rider, - 03/17/2024 3:00 PM CDTAssociated Order(s): PULMONARY FUNCTION TEST [facility] PULMONARY FUNCTION TEST REPORT Brendon Aldana INTERPRETATION Please see attached scanned PFT report for raw values and technologist's comments. SPIROMETRY: Forced vital capacity (in liters): Pre-bronchodilator: 3.6, 83% Post-bronchodilator: 3.52, 81% FEV1: (in liters) Pre-bronchodilator: 2.83, 87% Post-bronchodilator: 2.88, 89% FEV1/FVC ratio: 79 % There is no significant response to bronchodilator administration. Inspection of the patient's flow-volume loops shows normal configuration of the inspiratory and expiratory limbs. LUNG VOLUMES: TLC is 72 % RV is 63 % DLCO: uDLCO 72 % 6mwt / O2 titration: not performed. IMPRESSION: 1. Mild restriction is present, FEV1 2.88L, 89% predicted. 2. No evidence of obstruction. 3. There was no bronchodilator response during the test, this does not preclude use of bronchodilator therapy, clinical correlation advised. 4. Uncorrected DLCO was normal. Dr. Maycol Rider [facility] Pulmonary Medicine documented in this encounter Plan of Treatment Upcoming Encounters Date Type Department Care Team (Late st Contact Info) Description 08/22/2024 8:00 AM CONSULTANT INTERN Laboratory Only [facility] Family & Internal Medicine - [address] [address] Inderjit Narayan DO [address] [place] [address] 09/08/2024 2:30 PM CONSULTANT INTERN Appointment [facility] [address] [place] [address] Guido Rider DO 3 [facility] [address] [place] [address] 10/05/2024 3:00 PM CONSULTANT INTERN Appointment [facility] [place] [address] Guido Rider DO 3 [facility] [address] [place] [address] 10/13/2024 10:30 AM CONSULTANT INTERN Office Visit [facility] Multispecialty Care - [facility] 3 [facility] [address] [place] [address] Guido Rider DO 3 [facility] [address] [place] [address] 01/08/2025 2:20 PM CDT Office Visit [facility] Medical Group Family & Internal Medicine - [address] [place] [address] Inderjit Narayan DO [address] [place] [address] documented as of this encounter Procedures Procedure Name Priority Date/Time Associated Diagnosis Comments PULMONARY FUNCTION TEST Routine 03/17/2024 3:00 PM CDT Subacute cough documented in this encounter Results * Complete PFT (pre/post Edison, Lung Vol, Diff Capacity) (83300, 29113, 83369, 30126) (03/17/2024 3:00 PM CDT) Narrative [facility] - 03/17/2024 3:00 PM CDT Guido Rider, DO ? 03/23/2024 ??1:42 PM ?? [facility] PULMONARY FUNCTION TEST REPORT Brendon Aldana INTERPRETATION Please see attached scanned PFT report for raw values and technologist's comments. SPIROMETRY: ?? Forced vital capacity (in liters): Pre-bronchodilator: 3.6, 83% Post-bronchodilator: 3.52, 81% FEV1: (in liters) Pre-bronchodilator: 2.83, 87% Post-bronchodilator: 2.88, 89% FEV1/FVC ratio: 79 % There is no significant response to bronchodilator administration. Inspection of the patient's flow-volume loops shows ?? normal configuration of the inspiratory and expiratory limbs. LUNG VOLUMES: TLC is 72 % RV is 63 ??% DLCO: uDLCO 72 % 6mwt / O2 titration: ??not performed. IMPRESSION: 1. Mild restriction is present, FEV1 2.88L, 89% predicted. 2. No evidence of obstruction. 3. There was ??no bronchodilator response during the test, ??this does not preclude use of bronchodilator therapy, clinical correlation advised. 4. Uncorrected DLCO was normal. Dr. Maycol Rider [facility] Pulmonary Medicine us Inderjit Narayan DO PFT ORDERABLES Final Re sult [facility] [address] [place] [address], documented in this encounter Visit Diagnoses Diagnosis Subacute cough Cough documented in this encounter Administered Medications Inactive Administered Medications - up to 3 most recent administrations Medication Order MAR Action Action Date Dose Rate Site albuterol sulfate HFA 108 (90 Base) MCG/ACT inhaler 2 puff 2 puff, Inhalation, Once, 1 dose, On Wed03/17/24 at 1500 Given 03/17/2024 3:01 PM CDT 2 puffs documented in this encounter Care Teams Child Care Aide Relationship Specialty Start Date End Date Inderjit Narayan DO [address] [place] [address] PCP - General 12/19/22 documented as of this encounter
--- OUTSIDE RECORDS SUMMARY | 2024-08-19 06:37 | XMS_ITS | Encounter Summary ---
Author Organization [facility] Address [address] [place] [address]. 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 [place] [address] 09/08/2024 2:30 PM USED EQUIPMENT SALES REPRESENTATIVE Appointment [facility] [address] [place] [address] Guido Rider, DO 3 [facility] [address] [place] [address] 10/05/2024 3:00 PM USED EQUIPMENT SALES REPRESENTATIVE Appointment [facility] [place] [address] Guido Rider DO 3 [facility] [address] [place] [address] 10/13/2024 10:30 AM USED EQUIPMENT SALES REPRESENTATIVE Office Visit [facility] Multispecialty Care - [facility] 3 [facility] [address] [place] [address] Guido Rider, DO 3 [facility] [address] [place] [address] 01/08/2025 2:20 PM CDT Office Visit [facility] Medical [facility] Family & Internal Medicine [address] [address] Inderjit Narayan DO [address] [place] [address] documented as of this encounter Visit Diagnoses Not on filedocumented in this encounter Care Teams Timber Bucker Relationship Specialty Start Date End Date Inderjit Narayan DO [address] [place] [address] PCP - General 12/19/22 documented as of this encounter
--- OUTSIDE RECORDS SUMMARY | 2024-08-19 06:37 | XMS_ITS | Encounter Summary ---
Author Organization [facility] Address [address] [place] [address]. [place] [address] [place] [address] Care Team Providers Care Drapery Head Former Name Role Phone Inderjit Narayan DO Primary Care Provider + Encounter Details Date Type Department Care Team (Latest Contact Info) Description 03/08/2024 Travel Social History Tobacco Use Types Packs/Day [...] on file Legal Sex Male 10:29 AM SUPERVISOR WELDING EQUIPMENT REPAIRER Gender Identity Not on file Sexual Orientation Not on file Occupation Industry Job Start Date Job End Date Not on file Not on file Not on file Not on file documented as of this encounter Plan of Treatment Upcoming Encounters Date Type Department Care Team (Late st Contact Info) Description 08/22/2024 8:00 AM SUPERVISOR WELDING EQUIPMENT REPAIRER Laboratory Only [facility] Medical Group Family & Internal Medicine - [address] [place] [address] Inderjit Narayan DO [address] [place] [address] 09/08/2024 2:30 PM SUPERVISOR WELDING EQUIPMENT REPAIRER Appointment [facility] [address] [place] [address] Guido Rider, DO 3 [facility] [address] [place] [address] 10/05/2024 3:00 PM SUPERVISOR WELDING EQUIPMENT REPAIRER Appointment [facility] Respiratory [facility] [place] [address] Guido Rider, DO 3 [facility] [address] [place] [address] 10/13/2024 10:30 AM SUPERVISOR WELDING EQUIPMENT REPAIRER Office Visit [facility] Multispecialty Care - [facility] 3 [facility] [address] [place] [address] Guido Rider, DO 3 [facility] [address] [place] [address] 01/08/2025 2:20 PM CDT Office Visit [facility] Medical [facility] Family & Internal Medicine [address] [address] Inderjit Narayan DO [address] [place] [address] documented as of this encounter Visit Diagnoses Not on filedocumented in this encounter Care Teams Drapery Head Former Relationship Specialty Start Date End Date Inderjit Narayan DO [address] [place] [address] PCP - General 12/19/22 documented as of this encounter
--- OUTSIDE RECORDS SUMMARY | 2024-08-19 06:37 | XMS_ITS | Encounter Summary ---
Author Organization [facility] System Address [address] [place] [address]. [place] [address] [place] [address] Care Team Providers Care Spray Gun Repairer Helper Name Role Phone Inderjit Narayan DO Primary Care Provider + Reason for Visit * Reason Comments Cough C/o cough x 1 week Sinus Problem Green/red mucous x 1 week Encounter Details Date Type Department Care Team (Late st Contact Info) Description 11/17/2023 8:40 AM CDT Telemedicine [facility] Family & Internal Medicine [id number] [place] [phone] Liset Dasilva FNP [address] [place], [place] [phone] Cough (C/o cough x 1 week); Sinus Problem (Green/red mucous x 1 week) Social History Tobacco Use Types Packs/Day Years Used Date Smoking Tobacco: Never Passive Smoke Exposure: Never Smokeless Tobacco: Never Alcohol Use Standard Drinks/Week Comments Never 0 (1 standard drink = 0.6 oz pur e alcohol) PHQ-2 Answer Date Recorded Patient Health Questionnaire-2 Score 0 11/17/2023 Sex and Gender Information Value Date Recorded Sex Assigned at Not on file Legal Sex Male 10:29 AM ELECTRICAL CAD DESIGNER Gender Identity Not on file Sexual Orientation Not on file Occupation Industry Job Start Date Job End Date Not on file Not on file Not on file Not on file documented as of this encounter Patient Instructions * Patient Instructions* SHIRLEY Domínguez - 11/17/2023 8:40 AM CDT Take your medications as prescribed and call for any issues with getting or taking this medication You may continue to use [id number] medications as needed for symptom relief Get some rest and drink plenty of water to keep hydrated Call for any questions or concerns Follow-up routinely or sooner if needed, especially if your symptoms do not improve in the next week or if you have any new or worsening symptoms, as we discussed documented in this encounter Progress Notes * SHIRLEY Domínguez - 11/17/2023 8:40 AM CDTSummary: sinus sxs Office Progress Note Reason for Visit: Cough (C/o cough x 1 week) and Sinus Problem (Green/red mucous x 1 week) I introduced and identified myself, received verbal consent from the patient to proceed with this video visit and made the patient aware that the same confidentiality and information coordinator practices apply. The patient joined the video visit from Home. I completed the virtual visit from Home. Thefollowing clinical staff helped with this visit MA: moni Monroy . Total Time Spent in Minutes: 7 History of Present Illness: Brendon presents via virtual visit for c/o URI sxs Starting over one week ago, having a cough, that has productive with green phlegm, headaches, sinuscongestion and pressure, postnasal drainage, bilateral ear pain, and chills. He denies any body aches or fever. His was sick and did receive an antibiotic for her symptoms and he feels like he has the same symptoms she had. He has been taking his Zyrtec, cough drops and ibuprofen for his symptoms with minimal relief. ROS: Review of Systems Constitutional: Negative for chills, diaphoresis, fever, malaise/fatigue and weight loss. HENT: Positive for congestion, ear pain and sinus pain. Negative for ear discharge, hearing loss, nosebleeds, sore throat and tinnitus. Post nasal drainage Eyes: Negative for blurred vision, double vision, photophobia, pain, discharge and redness. Respiratory: Positive for cough and sputum production. Negative for hemoptysis, shortness of breath, wheezing and stridor. Cardiovascular: Negative for chest pain, palpitations, orthopnea, claudication, leg swelling and PND. Gastrointestinal: Negative for abdominal pain, blood in stool, constipation, diarrhea, heartburn, melena, nausea and vomiting. Genitourinary: Negative for dysuria, flank pain, frequency, hematuria and urgency. Musculoskeletal: Negative for back pain, falls, joint pain, myalgias and neck pain. Skin: Negative for itching and rash. Neurological: Positive for headaches. Negative for dizziness, tingling, tremors, sensory change, speech change, focal weakness, seizures, loss of consciousness and weakness. Endo/Heme/Allergies: Negative for environmental allergies and polydipsia. Does not bruise/bleed easily. Psychiatric/Behavioral: Negative for depression, hallucinations, memory loss, substance abuse and suicidal ideas. The patient is not nervous/anxious and does not have insomnia. Medications: Current Outpatient Medications on File Prior to Visit Medication Sig cetirizine (ZYRTEC) 10 MG tablet Take 1 tablet (10 mg total) by mouth daily. Cholecalciferol 50 MCG (2000 UT) Tab Coenzyme Q10 (CO Q 10 OR) Take by mouth. famotidine (PEPCID) 20 MG tablet Take 1 tablet (20 mg total) by mouth 2 (two) times daily. losartan (COZAAR) 50 MG tablet take 1 tablet by mouth every day magnesium oxide (MAG-OX) 250 MG tablet Take 1 tablet (250 mg total) by mouth daily. montelukast (SINGULAIR) 10 MG tablet Take 1 tablet (10 mg total) by mouth nightly at bedtime. Multiple Vitamin (MULTIVITAMIN ADULT OR) simvastatin (ZOCOR) [...] facility-administered medications on file prior to visit. 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 after accident around age 52 CATARACT EXTRACTION Bilateral 2020 REMOVAL OF SPERM DUCT(S) SCREENING COLONOSCOPY 04/09/2023 Repeat in 5 years Social History: Social History Socioeconomic History Marital status: Spouse name: Lady Occupational History 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: 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 Tobacco Use Smoking status: Never Passive exposure: Never Smokeless tobacco: Never Vaping Use Vaping status: Never Used Substance and Sexual Activity Alcohol use: Never Drug use: Never Sexual activity: Yes Partners: Female control/protection: Other-see comments Comment: Vasectomy Social Determinants of Health Financial Resource Strain: Low Risk (10/10/2021) [facility] Financial Resource Strain How hard is it for you to pay for the very basics like food, housing, medical care, and heating?: Not hard at all Food Insecurity: No Food Insecurity (10/10/2021) Re[facility] from [facility] Food Insecurity In the past 12 months, have you worried that your food would run out before you had money to buy more?: Never true In the past 12 months, did you run out of food and didn't have money to buy more?: Never true Transportation Needs: Unknown (10/10/2021) Re[facility] Transportation Needs In the past 12 months, has lack of transportation kept you from medical appointments or from getting medications?: No Intimate Partner Violence: Not At Risk (04/09/2023) Re[facility] from [facility] Intimate Partner Violence Are you in a relationship with someone who hurts you emotionally and/or physically?: No Family History: Family History Problem Relation Name Age of Onset Heart Disease Mother Bell PE: Physical Exam Constitutional: General: He is not in acute distress. Appearance: He is well-developed and well-groomed. He is not ill-appearing. HENT: Head: Normocephalic and atraumatic. Jaw: There is normal jaw occlusion. Right Ear: Hearing and external ear normal. Left Ear: Hearing and external ear normal. Nose: Nose normal. Mouth/Throat: Lips: Newborn. Mouth: Mucous membranes are moist. Eyes: General: Lids are normal. Vision grossly intact. Gaze aligned appropriately. Conjunctiva/sclera: Conjunctivae normal. Pulmonary: Effort: Pulmonary effort is normal. No tachypnea, bradypnea, accessory muscle usage, prolonged expiration, respiratory distress or retractions. Comments: No evidence of dyspnea or shortness of breath during the virtual visit. He is able to talk in complete sentences without stopping and without difficulty Musculoskeletal: Cervical back: Full passive range of motion without pain and normal range of motion. Neurological: Mental Status: He is alert and oriented to person, place, and time. Psychiatric: Attention and Perception: Attention and perception normal. Mood and Affect: Mood and affect normal. Speech: Speech normal. Behavior: Behavior normal. Behavior is cooperative. Thought Content: Thought content normal. Cognition and Memory: Cognition and memory normal. Judgment: Judgment normal. There were no vitals filed for this visit. Diagnoses/Impression: 1. Acute cough 2. Acute non-recurrent frontal sinusitis azithromycin (ZITHROMAX Z-ABBY) 250 MG tablet 3. Otalgia of both ears 4. Sinus headache Recommendations and Plan: 1. Acute cough 2. Acute non-recurrent frontal sinusitis - azithromycin (ZITHROMAX Z-ABBY) 250 MG tablet; Take 2 tablets (500 mg total) by mouth daily for 1 day, THEN 1 tablet (250 mg total) daily for 4 days. Dispense: 6 tablet; Refill: 0 3. Otalgia of both ears 4. Sinus headache Advised to take medication as prescribed and to continue using [id number] medication as needed for symptom relief We discussed resting and increasing his fluid intake Advised him to call or return if his symptoms do not improve over the next week, or for any new or worsening symptoms Orders Placed This Encounter cetirizine (ZYRTEC) 10 MG tablet azithromycin (ZITHROMAX Z-ABBY) 250 MG tablet Cannot display discharge medications since this is not an admission. PCP: SHIRLEY JIMENEZ 11/17/2023 documented in this encounter Plan of Treatment Upcoming Encounters Date Type Department Care Team (Late st Contact Info) Description 08/22/2024 8:00 AM ELECTRICAL CAD DESIGNER Laboratory Only [facility] Family & Internal Medicine - [address] [phone] Inderjit Narayan DO [address] [place] [phone] 09/08/2024 2:30 PM ELECTRICAL CAD DESIGNER Appointment [facility] [address] [place] [address] Guido Rider DO 3 [facility] [address] [place] [address] 10/05/2024 3:00 PM ELECTRICAL CAD DESIGNER Appointment [facility] [place] [address] Guido Rider DO 3 [facility] [address] [place] [address] 10/13/2024 10:30 AM ELECTRICAL CAD DESIGNER Office Visit [facility] Multispecialty Care - [facility] 3 [facility] [address] [place] [phone] Guido Rider DO 3 [facility] [address] [place] [phone] 01/08/2025 2:20 PM CDT Office Visit [facility] Family & Internal Medicine - [address] [phone] Inderjit Narayan DO [address] [place] [phone] documented as of this encounter Visit Diagnoses Diagnosis Acute cough- Primary Acute non-recurrent frontal sinusitis Otalgia of both ears Otalgia, unspecified Sinus headache Headache documented in this encounter Care Teams Spray Gun Repairer Helper Relationship Specialty Start Date End Date Inderjit Narayan DO [address] [place] [phone] PCP - General 12/19/22 documented as of this encounter
--- OUTSIDE RECORDS SUMMARY | 2024-08-19 06:37 | XMS_ITS | Clinical Summary ---
Author Organization [facility] Address [address] [place] [address]. [place] [address] [place] [address] Care Team Providers Care Toilet Attendant Name Role Phone Inderjit Narayan DO Primary Care Provider + Allergies Active Allergy Reactions Criticality Noted Date Comments Methylprednisolone Rash Medium 07/12/2012 redness Sulfa Antibiotics Rash Medium 11/12/2009 Medications tamsulosin (FLOMAX) 0.4 MG Cap Take 1 capsule (0.4 mg total) by mouth nightly at bedtime. 023 Active Coenzyme Q10 (CO Q 10 OR) Take by mouth. Active Cholecalciferol 50 MCG (1999 UT) Tab Active vitamin C (ASCORBIC ACID) 1000 MG tablet Take 1 tablet (1,000 mg total) by mouth daily. Active Multiple Vitamin (MULTIVITAMIN ADULT OR) Active Turmeric (QC TUMERIC COMPLEX OR) Active magnesium oxide (MAG-OX) 250 MG tablet Take 1 tablet (250 mg total) by mouth daily. Active azelastine (ASTELIN) 0.1 % nasal sprayIndications:Subacu te cough 1 spray by Nasal route every evening. Use in each nostril as directed 30 mL 1 024 Active albuterol sulfate HFA 108 (90 Base) MCG/ACT inhalerIndications:Suba cute cough INHALE 2 PUFFS INTO THE LUNGS EVERY 6 HOURS NEEDED FOR WHEEZE 18 g 1 024 Active HYDROcodone-acetaminoph en (NORCO) 5-325 MG tabletIndications:Acute Pain < 7 Day Supply Take 1 tablet by mouth every 4 (four) hours as needed for Pain (max 6 tabs a day). Indication s: Acute Pain < 7 Day Supply 21 tablet 024 Active cetirizine-pseudoephedr ine ER ([employer] ALLERGY RELIEF D) 5mg-120mg 12 hr tabletIndications:Aller gic rhinitis, unspecified seasonality, unspecified trigger Take 1 tablet by mouth 2 (two) times daily. 72 tablet 2 024 Active losartan (COZAAR) 50 MG tabletIndications:Essen tial hypertension, benign Take 1 tablet (50 mg total) by mouth daily. 90 tablet 1 024 Active fluticasone propionate (FLONASE) 50 MCG/ACT nasal sprayIndications:Allerg ic rhinitis due to pollen, unspecified seasonality 1 spray by Nasal route daily. 16 g 6 024 Active omeprazole (PRILOSEC) 40 MG capsuleIndications:Suba cute cough TAKE 1 CAPSULE (40 MG TOTAL) BY MOUTH DAILY. 90 capsule 2 024 Active simvastatin (ZOCOR) 40 MG tabletIndications:Pure hypercholesterolemia TAKE 1 TABLET BY MOUTH LATE IN THE DAY 90 tablet 1 025 Active simvastatin (ZOCOR) 40 MG tabletIndications:Pure hypercholesterolemia TAKE 1 TABLET BY MOUTH LATE IN THE DAY 90 tablet 1 024 2024 Discontinued Active Problems Problem Noted Date Diagnosed Date Essential hypertension, benign 12/22/2022 Esophageal reflux 12/22/2022 Pure hypercholesterolemia 12/22/2022 Benign prostatic hyperplasia without lower urinary tract symptoms 12/22/2022 Presbycusis of both ears 12/22/2022 Prediabetes 11/10/2016 Vitamin D deficiency 12/19/2014 Allergic rhinitis 11/11/2009 Osteoarthrosis 01/02/2009 Resolved Problems Problem Noted Date Diagnosed Date Resolved Date Kidney stone 12/22/2022 12/22/2022 S/P right rotator cuff repair 09/30/2018 12/22/2022 Stasis dermatitis of both legs 03/18/2018 12/22/2022 Colon adenoma 01/22/2014 12/22/2022 Encounters Date Type Department Care Team Description 08/15/2024 Telephone [facility] [place] [id number] [place] [phone] Guido Rider DO Reschedule 07/10/2024 2:20 PM WEB PUBLISHER Office Visit [facility] Family & Internal Medicine [address] [phone] Inderjit Narayan DO Hand Pain (Right hand and thumb pain for several months. Worse in the morning. ); Hypertension (Presents for routine 3 month follow up. ) 07/10/2024 Travel 06/09/2024 2:20 PM CDT Office Visit [facility] Multispecialty [facility] - [address], [address] [place] [phone] Guido Rider DO New Patient 06/09/2024 Travel 06/08/2024 Telephone [facility] Family Internal [address] [phone] Inderjit Narayan DO Lab Order from Last 3 Months Immunizations Name Administration Dates Next Due Fluzone High Dose - >Age 65 (Prefilled Syringe) 06/11/2023,06/01/2022,07/12/2021 Influenza (Generic) 07/12/2021,04/25/2020,2015 Influenza Adult (Generic) 04/25/2020,09/2018,05/12/2018,2016,07/16/2015 MODERNA COVID-19 (12+) MRNA, LNP-S, PF, 100 MCG/ 0.5 ML DOSE 06/13/2021,10/18/2020,09/20/2020 MODERNA COVID-19, 6-11 Prima ry (DARK BLUE CAP) (previous 18+ monovalent booster), mRNA, LNP-S,PF, 50 mcg/ 0.50mL dose 06/13/2021,10/18/2020,09/20/2020 Pneumococcal (Pneumovax 23) 11/17/2018 Pneumococcal (Prevnar 13) 10/14/2017 Tdap (Generic) 11/17/2018,08/09/2007 Family History Medical History Relation Comments PA Father Leukemia Grandson Cancer Maternal Grandfather Heart Disease Mother Leukemia Mother Breast Cancer Sister Relation Status Comments Father Grandson Alive Maternal Grandfather Mother Sister Social History Tobacco Use Types Packs/Day Years [...] on file Legal Sex Male 10:29 AM WEB PUBLISHER Gender Identity Not on file Sexual Orientation Not on file Occupation Industry Job Start Date Job End Date Not on file Not on file Not on file Not on file Last Filed Vital Signs Vital Sign Reading Time Taken Comments Blood Pressure 132/70 07/10/2024 2:19 PM WEB PUBLISHER Pulse 72 07/10/2024 2:19 PM WEB PUBLISHER Temperature 36.2 ??C (97.2 ??F) 07/10/2024 2:19 PM CS T Respiratory Rate 16 07/10/2024 2:19 PM WEB PUBLISHER Oxygen Saturation 95% 07/10/2024 2:19 PM WEB PUBLISHER Inhaled Oxygen Concentration - - Weight 96.7 kg (213 lb 3.2 oz) 07/10/2024 2:19 P M WEB PUBLISHER Height 180.3 cm (5' 11 ) 07/10/2024 2:19 PM WEB PUBLISHER Body Mass Index 29.74 07/10/2024 2:19 PM WEB PUBLISHER Plan of Treatment Upcoming Encounters Date Type Department Care Team (Late st Contact Info) Description 08/22/2024 8:00 AM WEB PUBLISHER Laboratory Only [facility] Medical Group Family & Internal Medicine - [address] [phone] Inderjit Narayan DO [address] [place] [phone] 09/08/2024 2:30 PM WEB PUBLISHER Appointment [facility] [address] [place] [address] Guido Rider DO [address] [facility] [address] [place] [address] 10/05/2024 3:00 PM WEB PUBLISHER Appointment [facility] [place] [address] Guido Rider DO 3 [facility] [address] [place] [phone] 10/13/2024 10:30 AM WEB PUBLISHER Office Visit [facility] Multispecialty Care - [facility] 3 [facility] [address] [place] [phone] Guido Rider DO 3 [facility] [address] [place] [address] 01/08/2025 2:20 PM CDT Office Visit [facility] Medical [facility] Family & Internal Medicine [address] [phone] Inderjit Narayan DO [address] [place] [phone] Health Maintenance Due Date Last Done Comments RSV Immunization or 60+ Years (1 - Risk 60-74 years 1-dose series) 2012 Annual Medicare Wellness Visit 2017 Influenza Adult (#1) 2025 06/11/2023, 06/01/2022, 07/12/2021, Additional history exists Postponed from 05/09/2024 (Future Appointment) Zoster Vaccines (1 of 2) 03/30/2025 Pos tponed from 2002 (Patient Refused) Colorectal Cancer Screening Colonoscopy (10 Years) 04/09/2028 DTaP, Tdap and Td Vaccines (3 - Td or Tdap) 11/17/2028 11/17/2018, 08/09/2007 COVID-19 Vaccine ( season) 2112 06/11/2023, 08/15/2022, 06/13/2021, Additional history exists Postponed from 04/09/2024 (Going to Outside Clinic) Pneumococcal Vaccine: 65+ Years Completed 11/17/2018, 10/14/2017 Hepatitis C Completed 07/19/2023 Meningococcal Vaccine Aged Out No nicole bruce eligible based on patient's age to complete this topic RSV Immunizations Under 20 Months Aged Out No longer eligible based on patient's age to complete this topic Procedures Procedure Name Priority Date/Time Associated Diagnosis Comments REMOVAL OF SKIN TAGS Routine 07/10/2024 2:56 PM WEB PUBLISHER AK (actinic keratosis) Skin tag HEPATITIS C ANTIBODY Routine 07/19/2023 10:20 AM WEB PUBLISHER Essential hypertension, benign Pure hypercholesterolemi a Vitamin D deficiency Need for hepatitis C screening test Screening for prostate cancer Screening for endocrine, metabolic and immunity disorder Screening for lipid disorders from Last 3 Months or Most Recently Relevant to Health Maintenance Results * Skin Tag Removal (07/10/2024 2:56 PM WEB PUBLISHER) Narrative Inderjit Narayan DO - 07/10/2024 2:56 PM WEB PUBLISHER Inderjit Narayan DO ? 07/10/2024 ??3:05 PM Skin Tag Removal Date/Time: 07/10/2024 2:56 PM Performed by: Inderjit Narayan DO Authorized by: Inderjit Narayan DO ?? Number of Lesions: 1 Lesion 1: ??Body area: head/neck ??Head/neck location: nose ??Malignancy: benign lesion ?Destruction method: cryotherapy ?? Comments: Treated both lesions (AK and skin tag) with 1-2 seconds of cryotherapy for 3 cycles. ??Pt tolerated procedure. ?? us Inderjit Narayan DO PROCEDURES-UNRESULTED Fi nal Result * HEPATITIS C ANTIBODY (07/19/2023 10:20 AM WEB PUBLISHER) HEPATITIS C AB NON-REACTI VE NON-REACT ELDER 07/19/2023 6:22 PM WEB PUBLISHER [facility] Comment: ANTIBODIES TO HCV NOT DETECTED. DOES NOT EXCLUDE THE POSSIBILITY OF EXPOSURE TO HCV. 07/19/2023 10:2 0 AM WEB PUBLISHER Inderjit Narayan DO LABORATORY Final Re sult [facility] [address] [place] [address], [phone] from Last 3 Months or Most Recently Relevant to Health [place] [address] MEDICARE [facility] Care Teams Toilet Attendant Relationship Specialty Start Date End Date Inderjit Narayan DO [address] [place] [phone] (work) PCP - General 12/19/22
--- OUTSIDE RECORDS SUMMARY | 2024-08-19 06:37 | XMS_ITS | Encounter Summary ---
Author Organization [facility] Address [address] [place] [address] Care Team Providers Care Repair Specialist Name Role Phone Landry Fernandez Primary Care Provider [phone] Reason for Visit * Reason Comments Cough Encounter Details Date Type Department Care Team (Late st Contact Info) Description 11/11/2018 4:20 PM CDT Office Visit [facility] [place] [address] [place] [address] Provider, Radha Exp Namenicholas Acute non-recurrent maxillary sinusitis (Primary Dx); Acute bronchitis, unspecified organism Social History Tobacco Use Types Packs/Day Years Used Date Smoking Tobacco: Never Smokeless Tobacco: Never Sex and Gender Information Value Date Recorded Sex Assigned at Not on file Gender Identity Not on file Sexual Orientation Not on file documented as of this encounter Last Filed Vital Signs Vital Sign Reading Time Taken Comments Blood Pressure 102/66 11/11/2018 4:35 PM CDT Pulse 70 11/11/2018 4:35 PM CDT Temperature 36.8 ??C (98.3 ??F) 11/11/2018 4:35 PM CD T Respiratory Rate 14 11/11/2018 4:35 PM CDT Oxygen Saturation 97% 11/11/2018 4:35 PM CDT Inhaled Oxygen Concentration - - Weight 93.4 kg (206 lb) 11/11/2018 4:35 PM CDT Height 180.3 cm (5' 11 ) 11/11/2018 4:35 PM CDT Body Mass Index 28.73 11/11/2018 4:35 PM CDT documented in this encounter Patient Instructions * Patient Instructions* Nirali Ledesma APRN-CRYPTOLOGICAL TECHNICIAN - 11/11/2018 4:57 PM CDT Images from the original note were not included. Recommend Mucinex to promote cough production during the day. Recommend Delsym or Robitussin at night if cough is interrupting sleep. If neither of these cough medications are relieving your cough, call Dr. Fernandez's office for prescription cough medication. Drink plenty of fluids to help thin secretions. May take Tylenol for fever or pain as directed per package instructions Recommend daily use of OTC intranasal saline irrigation per package instructions Follow up with Landry Fernandez, DO if symptoms worsen or do not completely resolve. GO TO EMERGENCY ROOM OR CALL 911 WITH ANY OF THE FOLLOWING SYMPTOMS: HIGH, PERSISTENT FEVER >102; SWELLING, INFLAMMATION, OR REDNESS AROUND EYES, ABNORMAL EYE MOVEMENTS, VISION CHANGES (DOUBLE VISION OR IMPAIRED VISION); SEVERE HEADACHE; ALTERED MENTAL STATUS. THESE ARE SIGNS OF A RARE, BUT SERIOUS COMPLICATION AND REQUIRES IMMEDIATE EMERGENCY ATTENTION. Acute Bronchitis PUBLICITY AGENT: Acute bronchitis is swelling and irritation in the air passages of your lungs. This irritation may cause you to cough or have other breathing problems. Acute bronchitis often starts because of another illness, such as a cold or the flu. The illness spreads from your nose and throat to your windpipeand airways. Bronchitis is often called a chest cold. Acute bronchitis lasts about 3 to 6 weeks andis usually not a serious illness. Your cough can last for several weeks. You may have any of the following symptoms: ?? A cough with sputum that may be clear, yellow, or green ?? Feeling more tired than usual, and body aches ?? A fever and chills ?? Wheezing when you breathe ?? A tight chest or pain when you breathe or cough Seek care immediately if: ?? You cough up blood. ?? Your lips or fingernails turn blue. ?? You feel like you are not getting enough air when you breathe. Contact your healthcare provider if: ?? You have a fever. ?? Your breathing problems do not go away or get worse. ?? Your cough does not get better within 4 weeks. ?? You have questions or concerns about your condition or care. Self-care: ?? Get more rest. Rest helps your body to heal. Slowly start to do more each day. Rest when you feel it is needed. ?? Avoid irritants in the air. Avoid chemicals, fumes, and dust. Wear a face mask if you must work around dust or fumes. Stay inside on days when air pollution levels are high. If you have allergies,stay inside when pollen counts are high. Do not use aerosol products, such as spray-on deodorant, bug spray, and hair spray. ?? Do not smoke or be around others who smoke. Nicotine and other chemicals in cigarettes and cigars damages the cilia that move mucus out of your lungs. Ask your healthcare provider for information if you currently smoke and need help to quit. E-cigarettes or smokeless tobacco still contain nicotine. Talk to your healthcare provider before you use these products. ?? Drink liquids as directed. Liquids help keep your air passages moist and help you cough up mucus. You may need to drink more liquids when you have acute bronchitis. Ask how much liquid to drink each day and which liquids are best for you. ?? Use a humidifier or vaporizer. Use a cool mist humidifier or a vaporizer to increase air moisture in your home. This may make it easier for you to breathe and help decrease your cough. Prevent acute bronchitis by doing the following: ?? Get the vaccinations you need. Ask your healthcare provider if you should get vaccinated againstthe flu or pneumonia. ?? Prevent the spread of germs. You can decrease your risk of acute bronchitis and other illnesses by doing the following: ?? Wash your hands often with soap and water. Carry germ-killing hand lotion or gel with you. You can use the lotion or gel to clean your hands when soap and water are not available. ?? Do not touch your eyes, nose, or mouth unless you have washed your hands first. ?? Always cover your mouth when you cough to prevent the spread of germs. It is best to cough into a tissue or your shirt sleeve instead of into your hand. Ask those around you cover their mouths when they cough. ?? Try to avoid people who have a cold or the flu. If you are sick, stay away from others as much as possible. Medicines: Your healthcare provider may give you any of the following: ?? Ibuprofen or acetaminophen are medicines that help lower your fever. They are available without a doctor's order. Ask your healthcare provider which medicine is right for you. Ask how much to takeand how often to take it. Follow directions. These medicines can cause stomach bleeding if not taken correctly. Ibuprofen can cause kidney damage. Do not take ibuprofen if you have kidney disease, anulcer, or allergies to aspirin. Acetaminophen can cause liver damage. Do not take more than 4,000 milligrams in 24 hours. ?? Decongestants help loosen mucus in your lungs and make it easier to cough up. This can help you breathe easier. ?? Cough suppressants decrease your urge to cough. If your cough produces mucus, do not take a cough suppressant unless your healthcare provider tells you to. Your healthcare provider may suggest that you take a cough suppressant at night so you can rest. ?? Inhalers may be given. Your healthcare provider may give you one or more inhalers to help you breathe easier and cough less. An inhaler gives your medicine to open your airways. Ask your healthcare provider to show you how to use your inhaler correctly. Follow up with your healthcare provider as directed: Write down questions you have so you will remember to ask them during your follow-up visits. ?? Copyright [employer] 2019 Information is for End User's use only and may not be sold, redistributed or otherwise used for commercial purposes. All illustrations and images included in CareNotes?? are the copyrighted property of [employer]. or [employer] The above information is an laundry aide only. It is not intended as medical advice for individual conditions or treatments. Talk to your doctor, nurse or pharmacist before following any medical regimen to see if it is safe and effective for you. Sinusitis PUBLICITY AGENT: Sinusitis is inflammation or infection of your sinuses. It is most often caused by a virus. Acute sinusitis may last up to 12 weeks. Chronic sinusitis lasts longer than 12 weeks. Recurrent sinusitis means you have 4 or more times in 1 year. Common symptoms include the following: ?? Fever ?? Pain, pressure, redness, or swelling around the forehead, cheeks, or eyes ?? Thick yellow or green discharge from your nose ?? Tenderness when you touch your face over your sinuses ?? Dry cough that happens mostly at night or when you lie down ?? Headache and face pain that is worse when you lean forward ?? Tooth pain, or pain when you chew Seek care immediately if: ?? Your eye and eyelid are red, swollen, and painful. ?? You cannot open your eye. ?? You have vision changes, such as double vision. ?? Your eyeball bulges out or you cannot move your eye. ?? You are more sleepy than normal, or you notice changes in your ability to think, move, or talk. ?? You have a stiff neck, a fever, or a bad headache. ?? You have swelling of your forehead or scalp. Contact your healthcare provider if: ?? Your symptoms do not improve after 3 days. ?? Your symptoms do not go away after 10 days. ?? You have nausea and are vomiting. ?? Your nose is bleeding. ?? You have questions or concerns about your condition or care. Treatment for sinusitis: Your symptoms may go away on their own. Your healthcare provider may recommend watchful waiting for up to 10 days before starting antibiotics. You may need any of the following: ?? Acetaminophen decreases pain and fever. It is available without a doctor's order. Ask how much to take and how often to take it. Follow directions. Read the labels of all other medicines you are using to see if they also contain acetaminophen, or ask your doctor or pharmacist. Acetaminophen can cause liver damage if not taken correctly. Do not use more than 4 grams (4,000 milligrams) total of acetaminophen in one day. ?? NSAIDs , such as ibuprofen, help decrease swelling, pain, and fever. This medicine is available with or without a doctor's order. NSAIDs can cause stomach bleeding or kidney problems in certain people. If you take blood thinner medicine, always ask your healthcare provider if NSAIDs are safe foryou. Always read the medicine label and follow directions. ?? Nasal steroid sprays may help decrease inflammation in your nose and sinuses. ?? Decongestants help reduce swelling and drain mucus in the nose and sinuses. They may help you breathe easier. ?? Antihistamines help dry mucus in the nose and relieve sneezing. ?? Antibiotics help treat or prevent a bacterial infection. ?? Take your medicine as directed. Contact your healthcare provider if you think your medicine is not helping or if you have side effects. Tell him or her if you are allergic to any medicine. Keep a list of the medicines, vitamins, and herbs you take. Include the amounts, and when and why you take them. Bring the list or the pill bottles to follow-up visits. Carry your medicine list with you in case of an emergency. Self-care: ?? Rinse your sinuses. Use a sinus rinse device to rinse your nasal passages with a saline (salt water) solution or distilled water. Do not use tap water. This will help thin the mucus in your nose and rinse away pollen and dirt. It will also help reduce swelling so you can breathe normally. Ask your healthcare provider how often to do this. ?? Breathe in steam. Heat a bowl of water until you see steam. Lean over the bowl and make a tent over your head with a large towel. Breathe deeply for about 20 minutes. Be careful not to get too close to the steam or burn yourself. Do this 3 times a day. You can also breathe deeply when you take ahot shower. ?? Sleep with your head elevated. Place an extra pillow under your head before you go to sleep to help your sinuses drain. ?? Drink liquids as directed. Ask your healthcare provider how much liquid to drink each day and which liquids are best for you. Liquids will thin the mucus in your nose and help it drain. Avoid drinks that contain alcohol or caffeine. ?? Do not smoke, and avoid secondhand smoke. Nicotine and other chemicals in cigarettes and cigars can make your symptoms worse. Ask your healthcare provider for information if you currently smoke and need help to quit. E-cigarettes or smokeless tobacco still contain nicotine. Talk to your healthcare provider before you use these products. Prevent the spread of germs that cause sinusitis: Wash your hands often with soap and water. Wash your hands after you use the bathroom, change a child's diaper, or sneeze. Wash your hands before youprepare or eat food. Follow up with your healthcare provider as directed: You may be referred to an ear, nose, and throat specialist. Write down your questions so you remember to ask them during your visits. ?? Copyright [employer] 2019 Information is for End User's use only and may not be sold, redistributed or otherwise used for commercial purposes. All illustrations and images included in CareNotes?? are the copyrighted property of [employer]. or [employer] The above information is an laundry aide only. It is not intended as medical advice for individual conditions or treatments. Talk to your doctor, nurse or pharmacist before following any medical regimen to see if it is safe and effective for you. documented in this encounter Progress Notes * Nirali Ledesma APRN-CNP - 11/11/2018 4:40 PM CDT Images from the original note were not included. Subjective: Brendon Aldana is a 68 year old male who presents to clinic today for Chief Complaint Patient presents with ??? Cough . Primary Care Physician is Landry Fernandez DO . Patient reports the following symptoms: productive cough, rhinorrhea, nasal congestion, sinus pain and pressure, post nasal drainage. Onset of cough symptoms was 4 days ago, onset of sinus symptoms was 8 days ago; gradually worsening since that time. The cough is non-productive, without wheezing, dy spnea or hemoptysis, with shortness of breath during the cough and is aggravated by reclining position Associated symptoms include:postnasal drip. Patient does not have new pets. Patient does not have a history of asthma. Patient does have a history of environmental allergens. Patient does not haverecent travel. Patient does not have a history of smoking. OTC-cough drops with minimal relief . Sick Contacts: Yes, grandchildren sick and [id number] with strep. Past Medical History: Diagnosis Date ??? GERD (gastroesophageal reflux disease) ??? Hypercholesteremia ??? Hypertension ??? IVH (intraventricular hemorrhage) ??? Leg pain ??? Seasonal allergies No family history on file. Current Outpatient Prescriptions Medication Sig Dispense Refill ??? amoxicillin-clavulanate (AUGMENTIN) 875-125 MG tablet Take 1 tablet by mouth 2 times daily withmorning and evening meal for 7 days 14 tablet 0 ??? Cetirizine-Pseudoephedrine (ZYRTEC-D PO) ??? Coenzyme Q10 (COQ-10 PO) ??? fluticasone propionate (FLONASE) 50 MCG/ACT nasal spray [place] 2 Sprays into each nostril once daily ??? Olmesartan Medoxomil (BENICAR PO) ??? omeprazole (PRILOSEC) 20 MG capsule Take 20 mg by mouth daily before breakfast ??? simvastatin (ZOCOR) 20 MG tablet Take 20 mg by mouth at bedtime No current facility-administered medications for this visit. Allergies Allergen Reactions ??? Methylprednisolone Rash redness ??? Sulfamethoxazole W-Trimethoprim Rash Social History Social History ??? Marital status: Social History Main Topics ??? Smoking status: Never Smoker Review of Systems Constitutional: Positive for malaise, headache. Negative for fever and chills Eyes: Negative Ears, nose, mouth, and throat: Positive for sinus pain and pressure, nasal congestion, rhinorrhea, and post nasal drainage Respiratory: Positive for shortness of breath, acute cough Cardiovascular: Negative Gastrointestinal: Negative Hematologic/lymphatic: Negative Objective: BP 102/66 Pulse 70 Temp 98.3 ??F (36.8 ??C) Resp 14 Ht 1.803 m (5' 11 ) Wt 93.4 kg (206 lb) SpO2 97% BMI 28.73 kg/m2 Oxygens Saturation 97% on room air Exam: General appearance: alert, cooperative, no distress, oriented to person, place, and time Head: normocephalic, without trauma Eyes: sclera and conjunctiva clear Ears: canals clear, tympanic membranes normal, hearing intact to voice Nose: mucosa erythematous and swollen, clear rhinorrhea, maxillary tenderness bilaterally, ethmoidal sinus tenderness bilaterally Throat: no mucous membrane abnormalities, moderate oropharyngeal erythema, no tonsils, uvula is midline Lungs: breath sounds symmetric with good aeration; no rales , crackles, or decreased breath sounds.Posterior forced expiratory wheezes Heart: regular rhythm, normal S1 and S2, without murmurs, gallops or rubs Assessment: Encounter Diagnoses Name Primary? Acute non-recurrent maxillary sinusitis Yes ??? Acute bronchitis, unspecified organism Plan: Patient declined Albuterol inhaler. Continue daily Zyrtec D (prescribed by Dr. Fernandez) and Flonase. Mucinex to promote cough; Delsym or Robitussin to suppress cough (Do not use unless your daily activities or sleep is interrupted by cough); Use only as directed. Humidified air to home Avoid irritants such as cigarette smoke, pollen, dust, etc as this will aggravate bronchitis. Reviewed education materials and instructions with patient and answered all questions. Brendon Aldana verbalized understanding and agrees with plan. Follow up with Landry Fernandez, DO if symptoms worsen or do not completely resolve GO TO ER WITH ANY WORSENING OF SYMPTOMS INCLUDING, BUT NOT LIMITED TO: SUDDEN HIGH FEVER, DIFFICULTY BREATHING OR CATCHING YOUR BREATH, OR SHORTNESS OF BREATH. Orders Placed This Encounter ??? amoxicillin-clavulanate (AUGMENTIN) 875-125 MG tablet Sig: Take 1 tablet by mouth 2 times daily with morning and evening meal for 7 days Dispense: 14 tablet Refill: 0 SHAUN Duncan 11/11/2018 5:05 PM documented in this encounter Plan of Treatment Not on file documented as of this encounter Visit Diagnoses Diagnosis Acute non-recurrent maxillary sinusitis- Primary Acute bronchitis, unspecified organism documented in this encounter Care Teams Repair Specialist Relationship Specialty Start Date End Date Landry Fernandez DO PCP - General Family Medicine 04/19/16 documented as of this encounter
--- OUTSIDE RECORDS SUMMARY | 2024-08-19 06:37 | XMS_ITS | Encounter Summary ---
Author Organization [facility] Address [address] [place] [address]. [place], [place] [address] [place] [address] Care Team Providers Care Mine Boss Name Role Phone Luiz Smalls DO Primary Care Provider + Reason for Referral * Procedure (Routine) - New Request Specialty Diagnoses / Procedures Referred By Contjeanie t Referred To Contact Diagnoses Subacute cough Procedures Complete PFT (pre/post Fordyce, Lung Vol, Diff Capacity) (75190, 53589, 77442, 80884) Luiz Smalls DO [address] [place] [address] Phone: tel: fax: Referral ID Status Reason Start Date Expiration Date V isits Requested Visits Authorized [id number] New Request 02/29/2024 03/31/2025 1 1 * Imaging (Routine) - Closed Specialty Diagnoses / Procedures Referred By Contac t Referred To Contact RADIOLOGY Diagnoses Subacute cough Procedures CT CHEST WO CON Luiz Smalls DO [address] [place] [address] Phone: tel: fax: Referral ID Status Reason Start Date Expiration Date Visits Re quested Visits Authorized [id number] Closed 02/29/2024 03/01/2025 1 1 Reason for Visit * Reason Onset Date Comments Advice 02/29/2024 Encounter Details Date Type Department Care Team (Late st Contact Info) Description 02/29/2024 Telephone [facility] Family & Internal Medicine [facility] [address] [place] [id number] Luiz Smalls DO [address] [place] [address] Advice Social History Tobacco Use Types Packs/Day Years Used Date Smoking Tobacco: Never Passive Smoke Exposure: Never Smokeless Tobacco: Never Alcohol Use Standard Drinks/Week Comments Never 0 (1 standard drink = 0.6 oz pur e alcohol) PHQ-2 Answer Date Recorded Patient Health Questionnaire-2 Score 0 11/17/2023 Sex and Gender Information Value Date Recorded Sex Assigned at Not on file Legal Sex Male 10:29 AM GALLERY INTERN Gender Identity Not on file Sexual Orientation Not on file Occupation Industry Job Start Date Job End Date Not on file Not on file Not on file Not on file documented as of this encounter Progress Notes * Prachi Thomson MA - 02/29/2024 3:35 PM CDTAddended by: PRACHI THOMSON on: 02/29/2024 03:35 PM Modules accepted: Orders * Prachi Thomson MA - 02/29/2024 3:34 PM CDT Spoke with patient and informed him of medication being sent and the testing being ordered. The patient states he prefers [facility] as he know where that hospital is located. * Luiz Smalls DO - 02/29/2024 3:05 PM CDTAddended by: LUIZ SMALLS on: 02/29/2024 03:05 PM Modules accepted: Orders * Luiz Smalls DO - 02/29/2024 3:05 PM CDT Will treat with cefdinir for sinus infection. Will order CT and PFT for chronic cough. Pended all of these; clarify where pt would like to do CT and PFT. Recommend [facility]. * Prachi Thomson MA - 02/29/2024 2:47 PM CDT The patient states the right sinus pain has been present for 1.5 weeks. The patient states he stillhas cough. * Luiz Smalls DO - 02/29/2024 1:10 PM CDTAddended by: LUIZ SMALLS on: 02/29/2024 01:10 PM Modules accepted: Orders * Luiz Smalls DO - 02/29/2024 1:07 PM CDT Right sided sinus pain was not noted on my last exam nor on the 02/03/24 exam. It was noted on VV from 11/17/23. If pt has had sinus symptoms this entire time, then I'd recommend a CT sinus. If this isnot the case, please clarify symptoms further. Pended CT of sinus. * Prachi Thomson MA - 02/29/2024 11:40 AM CDT Per JUAN JOSE note: Pt has subacute cough. It has been present since at least 11/10/23. Pt saw urgent care and more than one of our [facility]'s for this on 11/17/23, 12/17/23, and 02/03/24. On the most recent evaluation, he was suspected to have post infectious cough at that time and was treated conservatively with cough medicine (benzonatate) and montelukast. He has been given prednisone, Augmentin, azithromycin, and doxycycline. Today, he still has the symptom. He notes if he lays down at night, he doesn't cough. He notessome chest discomfort that is not exertional and usually associated with actual coughing. Patient was prescribed albuterol at the [facility]. Please advise. * Jessica Farr - 02/29/2024 11:28 AM CDT Pt called in still having sinus infection sx. Cough has improved. Pain R side sinuses. Pt asking for advice documented in this encounter Plan of Treatment Upcoming Encounters Date Type Department Care Team (Late st Contact Info) Description 08/22/2024 8:00 AM GALLERY INTERN Laboratory Only [facility] Family & Internal Medicine - [address] [address] [place] [address] [place] [address] 09/08/2024 2:30 PM GALLERY INTERN Appointment [facility] [address] [place] [address] Guido Rider DO [address] [place] [address] 10/05/2024 3:00 PM GALLERY INTERN Appointment [facility] [place] [address] Guido Rider, [address] [facility] [address] [place] [address] 10/13/2024 10:30 AM GALLERY INTERN Office Visit [facility] Multispecialty Care - [address] [place] [address] Guido Rider DO [address] [facility] [address] [place] [address] 01/08/2025 2:20 PM CDT Office Visit [facility] Family & Internal Medicine [address] [address] Luiz Smalls DO [address] [place] [address] documented as of this encounter Results * Complete PFT (pre/post Fordyce, Lung Vol, Diff Capacity) (37331, 79162, 63641, 46447) (03/17/2024 3:00 PM CDT) Narrative [facility] - 03/17/2024 3:00 PM CDT Guido Rider DO ? 03/23/2024 ??1:42 PM ?? [facility] PULMONARY FUNCTION TEST REPORT Brendon Aldana INTERPRETATION [...] Uncorrected DLCO was normal. Dr. Maycol Rider [facility] Pulmonary Medicine us Luiz Smalls DO PFT ORDERABLES Final Re sult [facility] [address] [place] [address], * CT CHEST WO CON (03/08/2024 3:38 [...] documented in this encounter Visit Diagnoses Diagnosis Acute non-recurrent maxillary sinusitis- Primary Subacute cough Cough Subacute cough Cough Subacute cough Cough documented in this encounter Care Teams Mine Boss Relationship Specialty Start Date End Date Luiz Smalls DO [address] [place] [address] PCP - General 12/19/22 documented as of this encounter
--- OUTSIDE RECORDS SUMMARY | 2024-08-19 06:37 | XMS_ITS | Encounter Summary ---
Author Organization [facility] Address [address] [place] [address] Care Team Providers Care Engineer Name Role Phone FernandezLandry Primary Care Provider [phone] Reason for Visit * Reason Comments Sinusitis Encounter Details Date Type Department Care Team (Late st Contact Info) Description 06/20/2019 10:00 AM READING TUTOR Office Visit [facility] [place] [address] [place] [address] Provider, Radha Exp Namenicholas Acute non-recurrent maxillary sinusitis (Primary Dx) Social History Tobacco Use Types Packs/Day Years Used Date Smoking Tobacco: Never Smokeless Tobacco: Never Sex and Gender Information Value Date Recorded Sex Assigned at Not on file Gender Identity Not on file Sexual Orientation Not on file documented as of this encounter Last Filed Vital Signs Vital Sign Reading Time Taken Comments Blood Pressure 110/70 06/20/2019 10:06 AM READING TUTOR Pulse 80 06/20/2019 10:06 AM READING TUTOR Temperature 36.8 ??C (98.3 ??F) 06/20/2019 10:06 AM C Respiratory Rate 17 06/20/2019 10:06 AM READING TUTOR Oxygen Saturation 96% 06/20/2019 10:06 AM READING TUTOR Inhaled Oxygen Concentration - - Weight 92.5 kg (204 lb) 06/20/2019 10:06 AM READING TUTOR Height 180.3 cm (5' 11 ) 06/20/2019 10:06 AM READING TUTOR Body Mass Index 28.45 06/20/2019 10:06 AM READING TUTOR documented in this encounter Patient Instructions * Patient Instructions* Nirali Ledesma APRN-LOG HAULER - 06/20/2019 10:18 AM READING TUTOR Images from the original note were not included. Drink plenty of fluids to help thin secretions. May take Tylenol for fever or pain as directed per package instructions Recommend daily use of OTC intranasal saline irrigation per package instructions May take OTC antihistamines such as Zyrtec, Melissa, or Claritin as directed per package instructions, for runny nose or allergy symptoms Follow up with Landry Fernandez, DO if [...] SERIOUS COMPLICATION AND REQUIRES IMMEDIATE EMERGENCY ATTENTION. Patient Education Sinusitis INGOT WEIGHER: Sinusitis is inflammation or infection of your [...] ask them during your visits. ?? Copyright [employer] 2019 Information is for End User's use only and may not be sold, redistributed or otherwise used for commercial purposes. All illustrations and images included in CareNotes?? are the copyrighted property of [employer], [employer] or [employer] The above information is an dietary aide cook only. It is not intended as medical advice for individual conditions or treatments. Talk to your doctor, nurse or pharmacist before following any medical regimen to see if it is safe and effective for you. ING TUTOR documented in this encounter Progress Notes * Nirali Ledesma APRN-CNP - 06/20/2019 10:07 AM CST Images from the original note were not included. Subjective: Brendon Aldana is a 69 year old male who presents to clinic today for Chief Complaint Patient presents with ??? Sinusitis . Brendon Aldana is here for evaluation of sore throat, congestion, post nasal drip, left ear pressure/pain, achiness, headache described as sinus pain and pressure, chills. PCP is Landry B Fernandez, DO. He states the Onset of post nasal drainage was as lease 7 days ago with course gradually worsening in the past 4 days.. He is drinking plenty of fluids. The sinus pain is described as sharp, and is 9/10 in intensity. OTC- Ibuprofen for pain with temporary relief of symptoms. Sick Contacts: No known sick contacts. Patient has a grandson in the hospital on chemotherapy and he is concerned for infection r/t visiting grandson. Patient states he also took some left over Amoxil 500 mg for approximately four doses without improvement of symptoms. Past Medical History: Diagnosis Date ??? GERD (gastroesophageal reflux disease) ??? Hypercholesteremia ??? Hypertension ??? IVH (intraventricular hemorrhage) ??? Leg pain ??? Seasonal allergies No family history on file. Current Outpatient Medications Medication Sig Dispense Refill ??? amoxicillin-clavulanate (AUGMENTIN) 875-125 MG tablet Take 1 tablet by mouth 2 times daily withmorning and evening meal for 7 days 14 tablet 0 ??? Cetirizine-Pseudoephedrine (ZYRTEC-D PO) ??? Cholecalciferol (VITAMIN D3 PO) ??? Coenzyme Q10 (COQ-10 PO) ??? fluticasone propionate (FLONASE) 50 MCG/ACT nasal spray [place] 2 Sprays into each nostril once daily ??? Olmesartan Medoxomil (BENICAR PO) ??? omeprazole (PRILOSEC) 20 MG capsule Take 20 mg by mouth daily before breakfast ??? simvastatin (ZOCOR) 20 MG tablet Take 20 mg by mouth at bedtime No current facility-administered medications for this visit. Allergies Allergen Reactions ??? Methylprednisolone Rash redness ??? Sulfamethoxazole W-Trimethoprim Rash Social History Socioeconomic History ??? Marital status: Spouse name: Not on file ??? Number of children: Not on file ??? Years of education: Not on file ??? Highest education level: Not on file Occupational History ??? Not on file Social Needs ??? Financial resource strain: Not on file ??? Food insecurity: Worry: Not on file Inability: Not on file ??? Transportation needs: Medical: Not on file Non-medical: Not on file Tobacco Use ??? Smoking status: Never Smoker ??? Smokeless tobacco: Never Used Substance and Sexual Activity ??? Alcohol use: Not on file ??? Drug use: Not on file ??? Sexual activity: Not on file Lifestyle ??? Physical activity: Days per week: Not on file Minutes per session: Not on file ??? Stress: Not on file Relationships ??? Social connections: Talks on phone: Not on file Gets together: Not on file Attends christian service: Not on file Active member of club or organization: Not on file Attends meetings of clubs or organizations: Not on file Relationship status: Not on file ??? Intimate partner violence: Fear of current or ex partner: Not on file Emotionally abused: Not on file Physically abused: Not on file Forced sexual activity: Not on file Other Topics Concern ??? Not on file Social History Narrative ??? Not on file Review of Systems Constitutional: Positive for chills, fatigue, malaise, and headache, Negative for fevers. Eyes: Negative Ears, nose, mouth, and throat: Positive for sinus pain and pressure, rhinorrhea, nasal congestion, post nasal drainage Respiratory: Negative for acute cough Cardiovascular: Negative Gastrointestinal: Negative for poor appetite, nausea, vomiting Hematologic/lymphatic: Negative Objective: BP 110/70 Pulse 80 Temp 98.3 ??F (36.8 ??C) Resp 17 Ht 1.803 m (5' 11 ) Wt 92.5 kg (204 lb) SpO2 96% BMI 28.45 kg/m2 General appearance: alert, cooperative, no distress, oriented to person, place, and time Head: normocephalic, without trauma Eyes: sclera and conjunctiva clear Ears: canals clear, tympanic membranes normal, hearing intact to voice Nose: nares open; no septal deviation is noted, mucosa erythematous and swollen, maxillary tenderness bilaterally Throat: no mucous membrane abnormalities Neck: supple Nodes: mild, benign-appearing anterior cervical adenopathy Lungs: breath sounds normal and symmetric; no rales or wheezes Heart: regular rhythm, normal S1 and S2, without murmurs, gallops or rubs Assessment: Encounter Diagnosis Name Primary? Acute non-recurrent maxillary sinusitis Yes Plan: Drink plenty of fluids to help thin secretions. May take Tylenol for fever or pain as directed per package instructions Recommend daily use of OTC intranasal saline irrigation per package instructions Continue daily use of Zyrtec as directed. Reviewed education materials and instructions with patient and answered all questions. Brendon Aldana verbalized understanding and agrees with plan. Follow up with Landry Fernandez DO if symptoms worsen or do not completely resolve. GO TO EMERGENCY ROOM OR CALL 911 WITH ANY OF THE FOLLOWING SYMPTOMS: HIGH, PERSISTENT FEVER >102; SWELLING, INFLAMMATION, OR REDNESS AROUND EYES, ABNORMAL EYE MOVEMENTS, VISION CHANGES (DOUBLE VISION OR IMPAIRED VISION); SEVERE HEADACHE; ALTERED MENTAL STATUS. THESE ARE SIGNS OF A RARE, BUT SERIOUS COMPLICATION AND REQUIRES IMMEDIATE EMERGENCY ATTENTION. Orders Placed This Encounter ??? amoxicillin-clavulanate (AUGMENTIN) 875-125 MG tablet Sig: Take 1 tablet by mouth 2 times daily with morning and evening meal for 7 days Dispense: 14 tablet Refill: 0 Nirali Ledesma DNP, FLOOR MANAGER-BC 06/20/2019 10:53 AM ING TUTOR documented in this encounter Plan of Treatment Not on file documented as of this encounter Visit Diagnoses Diagnosis Acute non-recurrent maxillary sinusitis- Primary documented in this encounter Care Teams Engineer Relationship Specialty Start Date End Date Landry Fernandez DO PCP - General Family Medicine 04/19/16 documented as of this encounter
--- OUTSIDE RECORDS SUMMARY | 2024-08-19 06:37 | XMS_ITS | Encounter Summary ---
Author Organization [facility] Address [address] [place] [address] Care Team Providers Care Agriculture Research Director Name Role Phone FernandezLandry Primary Care Provider [phone] Reason for Visit * Reason Onset Date Comments Follow-up 06/22/2019 Encounter Details Date Type Department Care Team (Late st Contact Info) Description 06/22/2019 Telephone [facility] Live[facility] [address] [place] [address] Leslie Le APRN-CNP [address] [place] [address] Follow-up Social History Tobacco Use Types Packs/Day Years Used Date Smoking Tobacco: Never Smokeless Tobacco: Never Sex and Gender Information Value Date Recorded Sex Assigned at Not on file Gender Identity Not on file Sexual Orientation Not on file documented as of this encounter Miscellaneous Notes * Telephone Encounter - Leslie Castillo APRN-CNP - 06/22/2019 2:05 PM CST Courtesy follow-up phone call made to patient. He states he is feeling much better. Encouraged patient to call service center at [phone] if they have any questions, concerns, or further acute care needs. MAYANK Mix 06/22/2019 2:06 PM IVING BARN CUSTODIAN documented in this encounter Plan of Treatment Not on file documented as of this encounter Visit Diagnoses Not on filedocumented in this encounter Care Teams Agriculture Research Director Relationship Specialty Start Date End Date Landry Fernandez DO PCP - General Family Medicine 04/19/16 documented as of this encounter
--- OUTSIDE RECORDS SUMMARY | 2024-08-19 06:37 | XMS_ITS | Encounter Summary ---
Author Organization [facility] Address [address] [place] [address]. [place] [address] [place] [address] Care Team Providers Care Structural Welder Name Role Phone Inderjit Narayan DO Primary Care Provider + Encounter Details Date Type Department Care Team (Latest Contact Info) Description 02/03/2024 Travel Social History Tobacco Use Types Packs/Day [...] on file Legal Sex Male 10:29 AM BURNISHER Gender Identity Not on file Sexual Orientation Not on file Occupation Industry Job Start Date Job End Date Not on file Not on file Not on file Not on file documented as of this encounter Plan of Treatment Upcoming Encounters Date Type Department Care Team (Late st Contact Info) Description 08/22/2024 8:00 AM BURNISHER Laboratory Only [facility] Family & Internal Medicine - [place] [address] [place] [address] Inderjit Narayan DO [address] [place] [address] 09/08/2024 2:30 PM BURNISHER Appointment [facility] [address] [place] [address] Guido Rider, DO [address] [place] [address] 10/05/2024 3:00 PM BURNISHER Appointment [facility] Respiratory Therapy [place] [address] Guido Rider, DO [address] [facility] [address] [place] [address] 10/13/2024 10:30 AM BURNISHER Office Visit [facility] [address] [place] [address] Guido Rider, DO [address] [facility] [facility] [address] [place] [address] 01/08/2025 2:20 PM CDT Office Visit [facility] Medical [facility] Family & Internal Medicine [address] [address] Inderjit Narayan DO [address] [place] [address] documented as of this encounter Visit Diagnoses Not on filedocumented in this encounter Care Teams Structural Welder Relationship Specialty Start Date End Date Inderjit Narayan DO [address] [place] [address] PCP - General 12/19/22 documented as of this encounter
--- OUTSIDE RECORDS SUMMARY | 2024-08-19 06:38 | XMS_ITS | Encounter Summary ---
Author Organization [facility] Address [facility]. [place], [place] [address] [place] [id number] Care Team Providers Care Sales And Support Center Agent Name Role Phone Inderjit Narayan DO Primary Care Provider + Reason for Visit * Reason Comments Foot Pain The right foot has b een painful, red, and swollen for 1 month. The patient states he went to [place] ER for the pain. He states they ruled out a DVT and fractures. The patient denies injury Encounter Details Date Type Department Care Team (Late st Contact Info) Description 07/07/2023 8:40 AM PEDIATRIC NEUROPSYCHOLOGIST Office Visit [facility] Medical Group Family & Internal Medicine - [address] [phone] Inderjit Narayan DO [address] [place], [place] [id number] Foot Pain (The right foot has been painful, red, and swollen for 1 month. The patient states he went to [place] ER for the pain. He states they ruled out a DVT and fractures. The patient denies injury ) Social History Tobacco Use Types Packs/Day Years Used Date Smoking Tobacco: Never Passive Smoke Exposure: Never Smokeless Tobacco: Never Tobacco Cessation:Counseling Given: Not Answered Alcohol Use Standard Drinks/Week Comments Never 0 (1 standard drink = 0.6 oz pur e alcohol) PHQ-2 Answer Date Recorded Patient Health Questionnaire-2 Score 0 07/07/2023 Sex and Gender Information Value Date Recorded Sex Assigned at Not on file Legal Sex Male 10:29 AM PEDIATRIC NEUROPSYCHOLOGIST Gender Identity Not on file Sexual Orientation Not on file Occupation Industry Job Start Date Job End Date Not on file Not on file Not on file Not on file documented as of this encounter Last Filed Vital Signs Vital Sign Reading Time Taken Comments Blood Pressure 114/62 07/07/2023 8:43 AM PEDIATRIC NEUROPSYCHOLOGIST Pulse 63 07/07/2023 8:43 AM PEDIATRIC NEUROPSYCHOLOGIST Temperature 36.8 ??C (98.3 ??F) 07/07/2023 8:43 AM CS T Respiratory Rate 16 07/07/2023 8:43 AM PEDIATRIC NEUROPSYCHOLOGIST Oxygen Saturation 98% 07/07/2023 8:43 AM PEDIATRIC NEUROPSYCHOLOGIST Inhaled Oxygen Concentration - - Weight 95.3 kg (210 lb) 07/07/2023 8:43 AM PEDIATRIC NEUROPSYCHOLOGIST Height 180.3 cm (5' 11 ) 07/07/2023 8:43 AM PEDIATRIC NEUROPSYCHOLOGIST Body Mass Index 29.29 07/07/2023 8:43 AM PEDIATRIC NEUROPSYCHOLOGIST documented in this encounter Progress Notes * Inderjit Narayan, DO - 07/07/2023 8:40 AM CST Images from the original note were not included. GENERAL OFFICE VISIT Encounter Date: 07/07/2023 Chief Complaint: 73-year-old male presents for Foot Pain (The right foot has been painful, red, and swollen for 1 month. The patient states he went to [place] [facility] for the pain. He states they ruled out a DVT and fractures. The patient denies injury ) HPI: Pt presents for right foot pain. It has been present for about 1 month. It is not as red and swollen as it is at the end of the day. No known injury or inciting event. Pt had gone to [place] ER on 06/18/23 who gave him cephalexin, which did not help. Pt is not on amlodipine. Pt was checked for DVT, which was negative, and XR, which was negative, per patient. It is painful still, but not as bad. The pain is located mostly near the MTP of the 2nd, 3rd, and 4th digit. No numbness or tingling. No other new symptoms. Pt is needing chronic labs done as well for his chronic conditions, which are stable today. Review of Systems Constitutional: Negative for fever. Respiratory: Negative for shortness of breath. Musculoskeletal: See HPI Neurological: Negative for tingling. 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 Tobacco Use Smoking status: Never Passive exposure: Never Smokeless tobacco: Never Substance and Sexual Activity Alcohol use: Never Drug use: Never Sexual activity: Yes Partners: Female control/protection: Other-see comments Comment: Vasectomy Other Topics Concern Not on file Social History Narrative Not on file Social Determinants of Health Financial Resource Strain: Not on file Food Insecurity: Not on file Transportation Needs: Not on file Physical Activity: Not on file Stress: Not on file Social Connections: Not on file Intimate Partner Violence: Not on file Housing Stability: Not on file Immunization History Administered Date(s) Administered Fluzone High Dose - >Age 65 (Prefilled Syringe) 07/12/2021, 06/01/2022, 06/11/2023 Influenza 07/13/2016, 04/25/2020, 07/12/2021 Influenza Adult (Generic) 07/16/2015, 05/21/2017, 05/12/2018, 06/10/2019, 04/25/2020 MODERNA COVID-19 (12+) MRNA, LNP-S, PF, 100 MCG/ 0.5 ML DOSE 09/20/2020, 10/18/2020, 06/13/2021 Kimble COVID-19 (12+) MRNA, LNP-S, PF, FREDY-SUCROSE, 30 MCG/0.3 ML (COMIRNATY 2022) 06/11/2023 PFIZER COVID-19 BIVALENT (12+) mRNA, LNP-S, PF, 30 MCG/0.3 ML DOSE 08/15/2022 Pneumococcal (Pneumovax 23) 11/17/2018 Pneumococcal (Prevnar 13) 10/14/2017 Tdap (Generic) 08/09/2007, 11/17/2018 Current Outpatient Medications Medication Sig Dispense Refill cetirizine-pseudoephedrine ER (ZYRTEC-D) 5mg-120mg 12 hr tablet Take 1 tablet by mouth 2 (two) times daily. 72 tablet 2 Cholecalciferol 50 MCG (2000 UT) Tab Coenzyme Q10 (CO Q 10 OR) Take by mouth. doxycycline hyclate (VIBRAMYCIN) 100 MG capsule Take 1 capsule (100 mg total) by mouth 2 (two) times daily for 10 days. 20 capsule 0 famotidine (PEPCID) 20 MG tablet Take 1 tablet (20 mg total) by mouth 2 (two) times daily. 60 tablet 2 losartan (COZAAR) 50 MG tablet Take 1 tablet (50 mg total) by mouth daily. magnesium oxide (MAG-OX) 250 MG tablet Take 1 tablet (250 mg total) by mouth daily. montelukast (SINGULAIR) 10 MG tablet Take 1 tablet (10 mg total) by mouth. Multiple Vitamin (MULTIVITAMIN ADULT OR) predniSONE (DELTASONE) 20 MG tablet Take 3 tablets for three days, then take 2 tablets for three days, then take 1 tablet for three days 18 tablet 0 simvastatin (ZOCOR) 40 MG tablet [...] on File Prior to Visit Medication Sig cetirizine-pseudoephedrine ER (ZYRTEC-D) 5mg-120mg 12 hr tablet Take 1 tablet by mouth 2 (two) times daily. Cholecalciferol 50 MCG (2000 UT) Tab Coenzyme Q10 (CO Q 10 OR) Take by mouth. famotidine (PEPCID) 20 MG tablet Take 1 tablet (20 mg total) by mouth 2 (two) times daily. losartan (COZAAR) 50 MG tablet Take 1 tablet (50 mg total) by mouth daily. magnesium oxide (MAG-OX) 250 MG tablet Take 1 tablet (250 mg total) by mouth daily. montelukast (SINGULAIR) 10 MG tablet Take 1 tablet (10 mg total) by mouth. Multiple Vitamin (MULTIVITAMIN ADULT OR) simvastatin (ZOCOR) [...] redness Sulfa Antibiotics Rash Objective: Filed Vitals: 07/07/23 0843 BP: 114/62 Pulse: 63 Resp: 16 Temp: 98.3 ??F (36.8 ??C) TempSrc: Skin SpO2: 98% Weight: 95.3 kg (210 lb) Height: 1.803 m (5' 11 ) Physical Exam Vitals and nursing note reviewed. HENT: Head: Normocephalic and atraumatic. Right Ear: External ear normal. Left Ear: External ear normal. Eyes: General: No scleral icterus. Conjunctiva/sclera: Conjunctivae normal. Cardiovascular: Rate and Rhythm: Normal rate and regular rhythm. Pulses: Dorsalis pedis pulses are 2+ on the right side. Heart sounds: Normal heart sounds. No murmur heard. No friction rub. No gallop. Pulmonary: Effort: Pulmonary effort is normal. No respiratory distress. Breath sounds: Normal breath sounds. No wheezing or rales. Musculoskeletal: Cervical back: Neck supple. Right lower leg: Edema present. Feet: Right foot: Skin integrity: Erythema present. Lymphadenopathy: Cervical: No cervical adenopathy. Skin: General: Skin is warm and dry. Comments: Mild erythema of the right foot, notable swelling Neurological: Mental Status: He is alert. Mental status is at baseline. Psychiatric: Mood and Affect: Affect normal. Assessment & Plan: Brendon was seen today for foot pain. Diagnoses and all orders for this visit: Left foot pain - URIC ACID BLOOD; Future - predniSONE (DELTASONE) 20 MG tablet; Take 3 tablets for three days, then take 2 tablets for threedays, then take 1 tablet for three days Cellulitis of right lower extremity - doxycycline hyclate (VIBRAMYCIN) 100 MG capsule; Take 1 capsule (100 mg total) by mouth 2 (two) times daily for 10 days. Vitamin D deficiency - CBC W/DIFF AUTOMATED; Future - LIPID PANEL; Future - TSH W/REFLEX; Future - VITAMIN D, 25 OH; Future - COMPREHENSIVE METABOLIC PANEL; Future - HEMOGLOBIN, GLYCOSYLATED; Future - ALBUMIN URINE RANDOM; Future - PROSTATE SPECIFIC ANTIGEN,SCREENING; Future - URIC ACID BLOOD; Future Prediabetes - CBC W/DIFF AUTOMATED; Future - LIPID PANEL; Future - TSH W/REFLEX; Future - VITAMIN D, 25 OH; Future - COMPREHENSIVE METABOLIC PANEL; Future - HEMOGLOBIN, GLYCOSYLATED; Future - ALBUMIN URINE RANDOM; Future - PROSTATE SPECIFIC ANTIGEN,SCREENING; Future - URIC ACID BLOOD; Future Screening for prostate cancer - CBC W/DIFF AUTOMATED; Future - LIPID PANEL; Future - TSH W/REFLEX; Future - VITAMIN D, 25 OH; Future - COMPREHENSIVE METABOLIC PANEL; Future - HEMOGLOBIN, GLYCOSYLATED; Future - ALBUMIN URINE RANDOM; Future - PROSTATE SPECIFIC ANTIGEN,SCREENING; Future - URIC ACID BLOOD; Future Screening for endocrine, metabolic and immunity disorder - CBC W/DIFF AUTOMATED; Future - LIPID PANEL; Future - TSH W/REFLEX; Future - VITAMIN D, 25 OH; Future - COMPREHENSIVE METABOLIC PANEL; Future - HEMOGLOBIN, GLYCOSYLATED; Future - ALBUMIN URINE RANDOM; Future - PROSTATE SPECIFIC ANTIGEN,SCREENING; Future - URIC ACID BLOOD; Future Screening for lipid disorders - CBC W/DIFF AUTOMATED; Future - LIPID PANEL; Future - TSH W/REFLEX; Future - VITAMIN D, 25 OH; Future - COMPREHENSIVE METABOLIC PANEL; Future - HEMOGLOBIN, GLYCOSYLATED; Future - ALBUMIN URINE RANDOM; Future - PROSTATE SPECIFIC ANTIGEN,SCREENING; Future - URIC ACID BLOOD; Future Essential hypertension, benign - CBC W/DIFF AUTOMATED; Future - LIPID PANEL; Future - TSH W/REFLEX; Future - VITAMIN D, 25 OH; Future - COMPREHENSIVE METABOLIC PANEL; Future - HEMOGLOBIN, GLYCOSYLATED; Future - ALBUMIN URINE RANDOM; Future - PROSTATE SPECIFIC ANTIGEN,SCREENING; Future - URIC ACID BLOOD; Future Pure hypercholesterolemia - CBC W/DIFF AUTOMATED; Future - LIPID PANEL; Future - TSH W/REFLEX; Future - VITAMIN D, 25 OH; Future - COMPREHENSIVE METABOLIC PANEL; Future - HEMOGLOBIN, GLYCOSYLATED; Future - ALBUMIN URINE RANDOM; Future - PROSTATE SPECIFIC ANTIGEN,SCREENING; Future - URIC ACID BLOOD; Future Discussion/Summary: Consideration for gout versus cellulitis versus other etiology of symptoms. Will request ER records. Will order labs per above for chronic and acute purposes. Will send out doxycycline and prednisone; patient has tolerated prednisone without issue previously. Will have patient follow-up in 2 weeks for repeat assessment. Patient verbalized understanding. Inderjit Narayan DO ATRIC NEUROPSYCHOLOGIST documented in this encounter Plan of Treatment Upcoming Encounters Date Type Department Care Team (Late st Contact Info) Description 08/22/2024 8:00 AM PEDIATRIC NEUROPSYCHOLOGIST Laboratory Only [facility] Medical Group Family & Internal Medicine [address] [phone] Inderjit Narayan DO [address] [place] [address] 09/08/2024 2:30 PM PEDIATRIC NEUROPSYCHOLOGIST Appointment [facility] [address] [place] [address] Guido Rider DO 3 [facility] [address] [place] [address] 10/05/2024 3:00 PM PEDIATRIC NEUROPSYCHOLOGIST Appointment [facility] [place] [address] Guido Rider DO 3 [facility] [address] [place] [address] 10/13/2024 10:30 AM PEDIATRIC NEUROPSYCHOLOGIST Office Visit [facility] - [facility] [address] [facility] [address] [place] [address] RiderGuido razo [address] [facility] [address] [place] [address] 01/08/2025 2:20 PM CDT Office Visit [facility] Medical [facility] Family & Internal Medicine [address] [phone] [place] [address] [place] [phone] documented as of this encounter Results * URIC ACID BLOOD (07/07/2023 3:08 PM PEDIATRIC NEUROPSYCHOLOGIST) URIC ACID 5.2 3.5 - 7.2 MG/DL 07/07/2023 4:23 PM PEDIATRIC NEUROPSYCHOLOGIST [facility] 07/07/2023 3:08 PM PEDIATRIC NEUROPSYCHOLOGIST Inderjit Narayan DO LABORATORY Final Re sult [facility] [address] [place] [address], * PROSTATE SPECIFIC ANTIGEN,SCREENING (07/07/2023 3:08 PM PEDIATRIC NEUROPSYCHOLOGIST) PSA 0.45 <4.00 NG/ML 07/07/2023 4:23 PM PEDIATRIC NEUROPSYCHOLOGIST [facility] Comment: Test was performed using the Siemens method. ??Results obtained with other assay methods or kits cannot be used interchangeably with results obtained by the Siemens method. 07/07/2023 3:08 PM PEDIATRIC NEUROPSYCHOLOGIST Inderjit Narayan DO LABORATORY Final Re sult [facility] [address] [place] [address], [place] [phone] * HEMOGLOBIN, GLYCOSYLATED (07/07/2023 3:08 PM PEDIATRIC NEUROPSYCHOLOGIST) HGB A1C 5.6 <5.7 % 07/07/2023 5:50 PM PEDIATRIC NEUROPSYCHOLOGIST [facility] Comment: ADA GUIDELINES 2010 5.7 TO 6.4% INCREASED RISK OF DIABETES > OR = 6.5% CONSISTENT WITH DIABETES ESTIMATED AVG GLUCOSE 114 mg/dL 07/07/2023 5:50 PM PEDIATRIC NEUROPSYCHOLOGIST [facility] 07/07/2023 3:08 PM PEDIATRIC NEUROPSYCHOLOGIST Inderjit Narayan DO LABORATORY Final Re sult [facility] [address] [place] [address], [place] [phone] * (ABNORMAL) COMPREHENSIVE METABOLIC PANEL (07/07/2023 3:08 PM PEDIATRIC NEUROPSYCHOLOGIST) GLUCOSE 119(H) 70 - 99 MG/DL 07/07/2023 4:23 PM PEDIATRIC NEUROPSYCHOLOGIST [facility] BUN 10 7 - 18 MG/DL 07/07/2023 4:23 PM PEDIATRIC NEUROPSYCHOLOGIST [facility] CREATININE S/P/B 0.95 0.7 - 1.3 MG/DL 07/07/2023 4:23 PM PEDIATRIC NEUROPSYCHOLOGIST [facility] SODIUM S/P/B 141 136 - 145 MMOL/L 07/07/2023 4:23 PM PEDIATRIC NEUROPSYCHOLOGIST [facility] POTASSIUM S/P/B 4.0 3.5 - 5.1 MMOL/L 07/07/2023 4:23 PM [facility] CHLORIDE S/P/B 109(H) 100 - 108 MMOL/L 07/07/2023 4:23 PM [facility] CO2 27.0 21 - 32 MMOL/L 07/07/2023 4:23 PM [facility] CALCIUM S/P/B 9.2 8.5 - 10.1 MG/DL 07/07/2023 4:23 PM [facility] BILIRUBIN TOTAL S/P/B 0.6 0.2 - 1.2 MG/DL 07/07/2023 4:23 PM [facility] Comment: THIS ASSAY IS NOT RECOMMENDED FOR PATIENTS UNDERGOING TREATMENT WITH ELTROMBOPAG DUE TO THE POTENTIAL FOR FALSELY ELEVATED RESULTS. TOTAL PROTEIN S/P/B 7.7 6.4 - 8.2 G/DL 07/07/2023 4:23 PM [facility] ALBUMIN S/P/B 3.5 3.4 - 5.0 G/DL 07/07/2023 4:23 PM [facility] AST 26 15 - 37 U/L 07/07/2023 4:23 PM [facility] ALT 42 16 - 60 U/L 07/07/2023 4:23 PM [facility] ALKALINE PHOSPHATASE S/P/B 76 50 - 136 U/L 07/07/2023 4:23 PM [facility] ANION GAP 5.0 5 - 15 MMOL/L 07/07/2023 4:23 PM [facility] BUN CREATININE RATIO 10.6 6 - 26 07/07/2023 4:23 PM [facility] A/G RATIO 0.8(L) 1.0 - 2.0 RATIO 07/07/2023 4:23 PM [facility] GFR ESTIMATE 86(L) >90 ML/MIN/1.7 3 M2 07/07/2023 4:23 PM PEDIATRIC NEUROPSYCHOLOGIST [facility] Comment: NOTE: eGFR is not calculated for patients <18 years of age. This is an estimated GFR calculation using the new CKD EPI creatinine equation without race and so does not require a correction factor for race. This estimated GFR should not be used for calculating drug doses. 07/07/2023 3:08 PM PEDIATRIC NEUROPSYCHOLOGIST Inderjit Narayan DO LABORATORY Final Re sult Performing Organization Address [facility] de Phone Number [facility] [address] [place] [address], * VITAMIN D, 25 OH (07/07/2023 3:08 PM PEDIATRIC NEUROPSYCHOLOGIST) [facility] VITAMIN D 25 HYDROXY S/P/B 37 30 - 100 NG/ML 07/07/2023 4:03 PM PEDIATRIC NEUROPSYCHOLOGIST [facility] Comment: ? INTERPRETATION ? DEFICIENT ??<20 ? INSUFFICIENT 20-29 ?SUFFICIENT 30-100 07/07/2023 3:08 PM PEDIATRIC NEUROPSYCHOLOGIST Inderjit Narayan DO LABORATORY Final Re sult Performing Organization Address [facility] Co de Phone Number [facility] [address] [place] [address], [place] [phone] * TSH W/REFLEX (07/07/2023 3:08 PM PEDIATRIC NEUROPSYCHOLOGIST) Pathologist [facility] TSH 1.760 0.358 - 3.74 uIU/ML 07/07/2023 4:23 PM PEDIATRIC NEUROPSYCHOLOGIST [facility] Comment: HIGH DOSES OF BIOTIN MAY INTERFERE WITH THIS TEST RESULT. CORRELATION TO CLINICAL HISTORY AND PRESENTATION RECOMMENDED. FREE T4 NOT INDICATED 07/07/2023 3:08 PM PEDIATRIC NEUROPSYCHOLOGIST Inderjit Nayeli Narayan DO LABORATORY Final Re sult [facility] [address] [place] [address], * (ABNORMAL) LIPID PANEL (07/07/2023 3:08 PM PEDIATRIC NEUROPSYCHOLOGIST) CHOLESTEROL 146 <200 MG/DL 07/07/2023 4:23 PM [facility] TRIGLYCERIDES 160(H) <150 MG/DL 07/07/2023 4:23 PM [facility] HDL 43 >40.0 MG/DL 07/07/2023 4:23 PM PEDIATRIC NEUROPSYCHOLOGIST [facility] LDL (CALCULATED) 71 <100 MG/DL 07/07/2023 4:23 PM PEDIATRIC NEUROPSYCHOLOGIST [facility] NON HDL CHOLESTEROL 103 <130 MG/DL 07/07/2023 4:23 PM [facility] CHOL/HDL RATIO 3.4 0.0 - 4.5 07/07/2023 4:23 PM [facility] VLDL CALCULATION 32 5 - 55 MG/DL 07/07/2023 4:23 PM [facility] LIPID INTERPRETATION 07/07/2023 4:23 PM [facility] Comment: NIH CONCENSUS REPORT RECOMMENDATIONS: ?ADULT ?CHILD ??LOW RISK: ?CHOLESTEROL ? <200 ? <170 ?TRIGLYCERIDE ?<150 ?--- ?HDL ? >=60 ?--- ?LDL ? <100 ? <110 ??BORDERLINE: ?CHOLESTEROL ? 200-239 ?? 170-199 ?TRIGLYCERIDE ?150-199 ? --- ?HDL ?40-59 ?--- ?LDL ? 100-159 ?? 110-129 ??HIGH RISK: ?CHOLESTEROL ? >=240 ?>=200 ?TRIGLYCERIDE ?>=200 ? --- ?HDL ?<40 ?--- ?LDL ? >=160 ?>=130 07/07/2023 3:08 PM PEDIATRIC NEUROPSYCHOLOGIST us Inderjit Narayan DO LABORATORY Final Re sult [facility] [address] [place] [address], * (ABNORMAL) CBC W/DIFF AUTOMATED (07/07/2023 3:08 PM PEDIATRIC NEUROPSYCHOLOGIST) WBC 7.9 4.5 - 11.0 x10'3/uL 07/07/2023 3:35 PM [facility] RBC 4.84 4.70 - 6.10 x10'6/uL 07/07/2023 3:35 PM [facility] HGB 14.7 14.0 - 18.0 G/DL 07/07/2023 3:35 PM [facility] HCT 45.4 43.0 - 54.0 % 07/07/2023 3:35 PM [facility] MCV 93.8 80.0 - 94.0 FL 07/07/2023 3:35 PM [facility] MCH 30.4 27.0 - 31.0 PG 07/07/2023 3:35 PM [facility] MCHC 32.4 32.0 - 36.0 G/DL 07/07/2023 3:35 PM [facility] RDW 12.5 11.5 - 14.5 % 07/07/2023 3:35 PM [facility] PLT 229 130 - 400 x10'3/uL 07/07/2023 3:35 PM [facility] MPV 9.8 9.3 - 12.2 FL 07/07/2023 3:35 PM [facility] DIFFERENTIAL TYPE AUTOMATED DIFFERENTIAL 07/07/2023 3:35 PM [facility] NEUTROPHILS % 49.5 % 07/07/2023 3:35 PM [facility] LYMPHOCYTES % 31.1 % 07/07/2023 3:35 PM [facility] MONOCYTES % 12.8 % 07/07/2023 3:35 PM [facility] EOSINOPHILS 4.9 % 07/07/2023 3:35 PM [facility] BASOPHILS 1.3 % 07/07/2023 3:35 PM PEDIATRIC NEUROPSYCHOLOGIST [facility] IMMATURE GRANS % 0.4 % 07/07/20 3:35 PM PEDIATRIC NEUROPSYCHOLOGIST [facility] ABS. NEUTROPHILS TOTAL 3.91 1.80 - 7.70 x10'3/uL 07/07/2023 3:35 PM PEDIATRIC NEUROPSYCHOLOGIST [facility] ABS. LYMPHOCYTES 2.46 1.00 - 4.80 x10'3/uL 07/07/2023 3:35 PM PEDIATRIC NEUROPSYCHOLOGIST [facility] ABS. MONOCYTES 1.01(H) 0.30 - 0.82 x10'3/uL 07/07/2023 3:35 PM PEDIATRIC NEUROPSYCHOLOGIST [facility] ABS. EOSINOPHILS 0.39 0.04 - 0.54 x10'3/uL 07/07/2023 3:35 PM PEDIATRIC NEUROPSYCHOLOGIST [facility] ABS. BASOPHILS 0.10(H) 0.01 - 0.08 x10'3/uL 07/07/2023 3:35 PM PEDIATRIC NEUROPSYCHOLOGIST [facility] ABS. IMMATURE GRANULOCYTES 0.03 0.00 - 0.49 x10'3/uL 07/07/2023 3:35 PM [facility] 07/07/2023 3:08 PM PEDIATRIC NEUROPSYCHOLOGIST us Inderjit Narayan DO LABORATORY Final Re sult [facility] [address] [place] [address], [place] [phone] * ALBUMIN URINE RANDOM (07/07/2023 2:51 PM PEDIATRIC NEUROPSYCHOLOGIST) CREATININE (U) 87.6 39 - 259 MG/DL 07/08/2023 3:08 AM PEDIATRIC NEUROPSYCHOLOGIST [facility] MICROALBUMIN (U) 0.8 <2.0 mg/dL 07/08/20 3:08 AM PEDIATRIC NEUROPSYCHOLOGIST [facility] ALBUMIN/CREAT RATIO 9.0 <30 MG/G 07/08/2023 3:08 AM PEDIATRIC NEUROPSYCHOLOGIST [facility] URINE SPECIMEN / Unknown 07/07/2023 2:51 PM PEDIATRIC NEUROPSYCHOLOGIST Inderjit Narayan DO URINE ORDERABLES Final R esult [facility] [address] [place] [address], documented in this encounter Visit Diagnoses Diagnosis Left foot pain- Primary Pain in limb Cellulitis of right lower extremity Cellulitis and abscess of leg, except foot Vitamin D deficiency Unspecified vitamin D deficiency Prediabetes Other abnormal glucose Screening for prostate cancer Special screening for malignant neoplasm of prostate Screening for endocrine, metabolic and immunity disorder Screening for lipid disorders Essential hypertension, benign Pure hypercholesterolemia documented in this encounter Care Teams Sales And Support Center Agent Relationship Specialty Start Date End Date Inderjit Narayan DO [address] [place] [address] PCP - General 12/19/22 documented as of this encounter
--- OUTSIDE RECORDS SUMMARY | 2024-08-19 06:38 | XMS_ITS | Encounter Summary ---
Author Organization [facility] Address [address] [place] [address]. [place] [address] [place] [address] Care Team Providers Care Soil Technologist Name Role Phone Inderjit Narayan DO Primary Care Provider + Encounter Details Date Type Department Care Team (Latest Contact Info) Description 07/19/2023 - 07/19/2023 11:59 PM DETAILER PHARMACEUTICALS Hospital Encounter [facility] [address] [place] [address] Inderjit Narayan DO [address] [place] [address] Discharge Disposition: Home or Self Care (Routine [...] on file Legal Sex Male 10:29 AM DETAILER PHARMACEUTICALS Gender Identity Not on file Sexual Orientation Not on file Occupation Industry Job Start Date Job End Date Not on file Not on file Not on file Not on file documented as of this encounter Medications at Time of Discharge Cholecalciferol 50 MCG (2000 UT) Tab Coenzyme Q10 (CO Q 10 OR) Take by mouth. magnesium oxide (MAG-OX) 250 MG tablet Take 1 tablet (250 mg total) by mouth daily. Multiple Vitamin (MULTIVITAMIN ADULT OR) tamsulosin (FLOMAX) 0.4 MG Cap Take 1 capsule (0.4 mg total) by mouth nightly at bedtime. 10/15/2022 Turmeric (QC TUMERIC COMPLEX OR) vitamin C (ASCORBIC ACID) 1000 MG tablet Take 1 tablet (1,000 mg total) by mouth daily. cetirizine-pseudo ephedrine ER (ZYRTEC-D) 5mg-120mg 12 hr tabletIndications :Allergic rhinitis, unspecified seasonality, unspecified trigger Take 1 tablet by mouth 2 (two) times daily. 72 tablet 2 06/01/2023 11/09/2023 famotidine (PEPCID) 20 MG tablet Take 1 tablet (20 mg total) by mouth 2 (two) times daily. 60 tablet 2 12/22/2022 02/14/2024 losartan (COZAAR) 50 MG tablet Take 1 tablet (50 mg total) by mouth daily. 09/24/2022 09/23/2023 montelukast (SINGULAIR) 10 MG tablet Take 1 tablet (10 mg total) by mouth. 09/24/2022 08/30/2023 predniSONE (DELTASONE) 20 MG tabletIndications :Left foot pain Take 3 tablets for three days, then take 2 tablets for three days, then take 1 tablet for three days 18 tablet 07/07/2023 07/22/2023 simvastatin (ZOCOR) 40 MG tablet TAKE 1 TABLET BY MOUTH LATE IN THE DAY. 09/23/2023 documented as of this encounter Plan of Treatment Upcoming Encounters Date Type Department Care Team (Late st Contact Info) Description 08/22/2024 8:00 AM DETAILER PHARMACEUTICALS Laboratory Only [facility] Medical Group Family & Internal Medicine - [place] [address] [place] [address] Inderjit Narayan DO [facility] [place] [address] 09/08/2024 2:30 PM DETAILER PHARMACEUTICALS Appointment [facility] [address] [place] [address] Guido Rider, DO [address] [facility] [address] [place] [address] 10/05/2024 3:00 PM DETAILER PHARMACEUTICALS Appointment [facility] [place] [address] Guido Rider DO [address] [facility] [address] [place] [address] 10/13/2024 10:30 AM DETAILER PHARMACEUTICALS Office Visit [facility] 3 [facility] [address] [place] [address] Guido Rider DO 3 [facility] [address] [place] [address] 01/08/2025 2:20 PM CDT Office Visit [facility] Medical [facility] Family & Internal Medicine [address] [address] Inderjit Narayan DO [address] [place] [address] documented as of this encounter Visit Diagnoses Not on filedocumented in this encounter Care Teams Soil Technologist Relationship Specialty Start Date End Date Inderjit Narayan DO [address] [place] [address] PCP - General 12/19/22 documented as of this encounter
--- OUTSIDE RECORDS SUMMARY | 2024-08-19 06:38 | XMS_ITS | Encounter Summary ---
Author Organization [facility] Address [address] [place] [address]. [place] [address] [place] [address] Care Team Providers Care Cloth Mercerizer Operator Name Role Phone Inderjit Narayan DO Primary Care Provider + Reason for Visit * Reason Onset Date Comments Problem 11/16/2023 Sinus inf Encounter Details Date Type Department Care Team (Late st Contact Info) Description 11/16/2023 Telephone [facility] Medical Group Family & Internal Medicine [facility] [address] [place] [address] Inderjit Narayan DO [address] [place] [address] Problem (Sinus inf) Social History Tobacco Use Types Packs/Day Years Used Date Smoking Tobacco: Never Passive Smoke Exposure: Never Smokeless Tobacco: Never Alcohol Use Standard Drinks/Week Comments Never 0 (1 standard drink = 0.6 oz pur e alcohol) PHQ-2 Answer Date Recorded Patient Health Questionnaire-2 Score 0 11/17/2023 Sex and Gender Information Value Date Recorded Sex Assigned at Not on file Legal Sex Male 10:29 AM WET CHEMISTRY ANALYST Gender Identity Not on file Sexual Orientation Not on file Occupation Industry Job Start Date Job End Date Not on file Not on file Not on file Not on file documented as of this encounter Progress Notes * Edna Krishna MA - 11/16/2023 4:37 PM CDT Patient scheduled with debi VV @ 8:40 * Inderjit Narayan DO - 11/16/2023 1:29 PM CDT Recommend VV or OV. * Mary Mercer MA - 11/16/2023 9:29 AM CDT The patient has the following symptom(s): Headache, congestions, green blood drainage, ear aches-both ears, no fever or cough and body aches. Stated had the same thing and now he is getting it. was given a zpak and would like a prescription too. La,rma Symptom(s) Started: over a week ago OTC Medications tried: ibuprofen only for body aches Have you been seen with-in the past 30 days for these same symptoms? No If so, where? na Home Covid test: no-if has a test at home can do one but unsure if has a test and won't get off work till 3pm Call back #: [phone] Allergies: Allergies Allergen Reactions Methylprednisolone Rash redness Sulfa Antibiotics Rash Pharmacy: [id number] - [place], [place] - [facility] AMADA ELIZABETH [[id number]] documented in this encounter Plan of Treatment Upcoming Encounters Date Type Department Care Team (Late st Contact Info) Description 08/22/2024 8:00 AM WET CHEMISTRY ANALYST Laboratory Only [facility] Medical Group Family & Internal Medicine - [address] [phone] Inderjit Narayan DO [address] [place] [address] 09/08/2024 2:30 PM WET CHEMISTRY ANALYST Appointment [facility] [address] [place] [address] Guido Rider, DO [address] [facility] [address] [place] [address] 10/05/2024 3:00 PM WET CHEMISTRY ANALYST Appointment [facility] [place] [address] Guido Rider, DO [address] [facility] [address] [place] [address] 10/13/2024 10:30 AM WET CHEMISTRY ANALYST Office Visit [facility] Medical [facility] Multispecialty Care - [facility] [address] [facility] [address] [place] [address] Guido Rider, DO [address] [facility] [address] [place] [address] 01/08/2025 2:20 PM CDT Office Visit [facility] Medical [facility] Family & Internal Medicine [address] [address] Inderjit Narayan DO [address] [place] [address] documented as of this encounter Visit Diagnoses Not on filedocumented in this encounter Care Teams Cloth Mercerizer Operator Relationship Specialty Start Date End Date Inderjit Narayan DO [address] [place] [address] PCP - General 12/19/22 documented as of this encounter
--- OUTSIDE RECORDS SUMMARY | 2024-08-19 06:38 | XMS_ITS | Encounter Summary ---
Author Organization [facility] Address [address] [place] [address]. [place] [address] [place] [address] Care Team Providers Care Pail Tester Name Role Phone Inderjit Narayan DO Primary Care Provider + Encounter Details Date Type Department Care Team (Latest Contact Info) Description 08/25/2023 Scan HEALTH INFO SRVCS Scanned, Doc Med [...] on file Legal Sex Male 10:29 AM GATEMAN Gender Identity Not on file Sexual Orientation Not on file Occupation Industry Job Start Date Job End Date Not on file Not on file Not on file Not on file documented as of this encounter Plan of Treatment Upcoming Encounters Date Type Department Care Team (Late st Contact Info) Description 08/22/2024 8:00 AM GATEMAN Laboratory Only [facility] Medical Group Family & Internal Medicine - [address] [address] Inderjit Narayan DO [facility] [place] [address] 09/08/2024 2:30 PM GATEMAN Appointment [facility] [address] [place] [address] Guido Rider, DO 3 [facility] [address] [place] [address] 10/05/2024 3:00 PM GATEMAN Appointment [facility] [place] [address] Guido Rider DO 3 [facility] [address] [place] [address] 10/13/2024 10:30 AM GATEMAN Office Visit [facility] Multispecialty Care - [facility] [address] [facility] [address] [place] [address] Guido Rider, DO 3 [facility] [address] [place] [address] 01/08/2025 2:20 PM CDT Office Visit [facility] Medical [facility] Family & Internal Medicine [address] [address] Inderjit Narayan DO [address] [place] [address] documented as of this encounter Visit Diagnoses Not on filedocumented in this encounter Care Teams Pail Tester Relationship Specialty Start Date End Date Inderjit Narayan DO [address] [place] [address] PCP - General 12/19/22 documented as of this encounter
--- OUTSIDE RECORDS SUMMARY | 2024-08-19 06:38 | XMS_ITS | Encounter Summary ---
Author Organization [facility] Address [address] [place] [address]. [place] [address] [place] [address] Care Team Providers Care Presser Cotton Ginning Name Role Phone Inderjit Narayan DO Primary Care Provider + Encounter Details Date Type Department Care Team (Latest Contact Info) Description 07/07/2023 Travel Social History Tobacco Use Types Packs/Day [...] on file Legal Sex Male 10:29 AM INFANT NANNY Gender Identity Not on file Sexual Orientation Not on file Occupation Industry Job Start Date Job End Date Not on file Not on file Not on file Not on file documented as of this encounter Plan of Treatment Upcoming Encounters Date Type Department Care Team (Late st Contact Info) Description 08/22/2024 8:00 AM INFANT NANNY Laboratory Only [facility] Medical Group Family & Internal Medicine - [place] [phone] [place] [address] Inderjit Narayan DO [address] [place] [address] 09/08/2024 2:30 PM INFANT NANNY Appointment [facility] [address] [place] [address] Guido Rider, DO [address] [facility] [address] [place] [address] 10/05/2024 3:00 PM INFANT NANNY Appointment [facility] Respiratory Therapy [address] [facility] [address] Guido Rider, DO [address] [facility] [address] [place] [address] 10/13/2024 10:30 AM INFANT NANNY Office Visit [facility]pecialty Care - [facility] [address] [facility] [address] [place] [address] Guido Rider, DO [address] [facility] [address] [place] [address] 01/08/2025 2:20 PM CDT Office Visit [facility] Medical [facility] Family & Internal Medicine [address] [address] Inderjit Narayan DO [address] [place] [address] documented as of this encounter Visit Diagnoses Not on filedocumented in this encounter Care Teams Presser Cotton Ginning Relationship Specialty Start Date End Date Inderjit Narayan DO [address] [place] [address] PCP - General 12/19/22 documented as of this encounter
--- OUTSIDE RECORDS SUMMARY | 2024-08-19 06:38 | XMS_ITS | Encounter Summary ---
Author Organization [facility] Address [address] [place] [address]. [place] [address] [place] [address] Care Team Providers Care Seamer Elastic Band Name Role Phone Luiz Smalls DO Primary Care Provider + Reason for Visit * Reason Comments Follow Up Foot Pain Lab Results Hypertension Encounter Details Date Type Department Care Team (Late st Contact Info) Description 07/22/2023 10:00 AM PREFORM MACHINE OPERATOR Office Visit [facility] Family & Internal Medicine [facility] [address] [place] [address] Luiz Smalls DO [address] [place], [place] [id number] Follow Up; Foot Pain; Lab Results; Hypertension Social History Tobacco Use Types Packs/Day Years [...] on file Legal Sex Male 10:29 AM PREFORM MACHINE OPERATOR Gender Identity Not on file Sexual Orientation Not on file Occupation Industry Job Start Date Job End Date Not on file Not on file Not on file Not on file documented as of this encounter Last Filed Vital Signs Vital Sign Reading Time Taken Comments Blood Pressure 102/66 07/22/2023 10:05 AM PREFORM MACHINE OPERATOR Pulse 69 07/22/2023 10:05 AM PREFORM MACHINE OPERATOR Temperature 36.7 ??C (98 ??F) 07/22/2023 10: 05 AM PREFORM MACHINE OPERATOR Respiratory Rate 14 07/22/2023 10:0 5 AM PREFORM MACHINE OPERATOR Oxygen Saturation 96% 07/22/2023 10: 05 AM PREFORM MACHINE OPERATOR Inhaled Oxygen Concentration - - Weight 93.8 kg (206 lb 11.2 oz) 023 10:05 AM PREFORM MACHINE OPERATOR Height 180.3 cm (5' 11 ) 07/22/2023 10: 05 AM PREFORM MACHINE OPERATOR Body Mass Index 28.83 07/22/2023 10:05 AM PREFORM MACHINE OPERATOR documented in this encounter Progress Notes * Luiz Smalls, DO - 07/22/2023 10:00 AM CST Images from the original note were not included. GENERAL OFFICE VISIT Encounter Date: 07/22/2023 Chief Complaint: 73-year-old male presents for Follow Up, Foot Pain, Lab Results, and Hypertension HPI: Pt presents for right foot pain. Pt's foot pain is improved although not resolved since last OV. Ptwas on doxycycline and prednisone which he has finished. No new symptoms. Pt had recent labs performed. No visits with results within 3 Day(s) from this visit. Latest known visit with results is: Allied Health/Nurse Visit on 07/19/2023 Component Date Value Ref Range Status HGB A1C 07/19/2023 6.0 4.5 - 6.2 % Final ESTIMATED AVG GLUCOSE 07/19/2023 126 (H) 74 - 106 MG/DL Final PSA 07/19/2023 0.42 <4.00 NG/ML Final Comment: ASSAY PERFORMED BY [employer] USING [employer]. PATIENT RESULTS DETERMINED BY ASSAYS FROM DIFFERENT MANUFACTURERS AND/OR BY DIFFERENT METHODS MAY NOT BE COMPARABLE. CPK 07/19/2023 47 39 - 308 U/L Final HEPATITIS C AB 07/19/2023 NON-REACTIVE NON-REACTIVE Final Comment: ANTIBODIES TO HCV NOT DETECTED. DOES NOT EXCLUDE THE POSSIBILITY OF EXPOSURE TO HCV. VITAMIN D 25 HYDROXY TOTAL S/P/B 07/19/2023 64.4 30 - 100 NG/ML Final Comment: DEFICIENT <20 INSUFFICIENT 20-30 SUFFICIENT 30-100 CHOLESTEROL 07/19/2023 151 <200 MG/DL Final TRIGLYCERIDES 07/19/2023 105 <150 MG/DL Final HDL 07/19/2023 64 >40 MG/DL Final LDL-C 07/19/2023 66 <100 MG/DL Final VLDL CALCULATION 07/19/2023 21 5 - 28 MG/DL Final CHOL/HDL RATIO 07/19/2023 2.4 0.0 - 4.0 Final LDL/HDL 07/19/2023 1.0 0.41 - 2.13 Final NON HDL CHOLESTEROL 07/19/2023 87 <140 MG/DL Final TSH 07/19/2023 1.461 0.358 - 3.740 uIU/ML Final WBC 07/19/2023 11.02 (H) 4.00 - 10.80 x10'3/uL Final RBC 07/19/2023 5.25 4.50 - 6.10 x10'6/uL Final HGB 07/19/2023 15.9 13.0 - 18.0 G/DL Final HCT 07/19/2023 48.7 37.0 - 52.0 % Final MCV 07/19/2023 92.8 78.0 - 100.0 FL Final MCH 07/19/2023 30.3 27.0 - 31.0 PG Final MCHC 07/19/2023 32.6 (L) 33.0 - 36.0 G/DL Final RDW 07/19/2023 12.8 11.5 - 14.5 % Final PLT 07/19/2023 221 150 - 350 x10'3/uL Final MPV 07/19/2023 10.0 7.4 - 10.4 FL Final DIFFERENTIAL TYPE 07/19/2023 AUTOMATED DIFFERENTIAL Final NEUTROPHILS 07/19/2023 64.8 % Final LYMPHOCYTES 07/19/2023 23.1 % Final MONOCYTES 07/19/2023 8.6 % Final EOSINOPHILS 07/19/2023 2.3 % Final BASOPHILS 07/19/2023 0.7 % Final IMMATURE GRANS 07/19/2023 0.5 % Final ABS. NEUTROPHILS 07/19/2023 7.14 1.60 - 8.30 x10'3/uL Final ABS. LYMPHOCYTES 07/19/2023 2.55 0.80 - 4.70 x10'3/uL Final ABS. MONOCYTES 07/19/2023 0.95 0.00 - 1.50 x10'3/uL Final ABS. EOSINOPHILS 07/19/2023 0.25 0.00 - 0.40 x10'3/uL Final ABS. BASOPHILS 07/19/2023 0.08 0.00 - 0.20 x10'3/uL Final ABS. IMMATURE GRANULOCYTES 07/19/2023 0.05 (H) 0.00 - 0.03 x10'3/uL Final SODIUM S/P/B 07/19/2023 139 136 - 145 MMOL/L Final POTASSIUM S/P/B 07/19/2023 4.8 3.5 - 5.1 MMOL/L Final CHLORIDE S/P/B 07/19/2023 103 98 - 107 MMOL/L Final CO2 07/19/2023 28.3 21 - 32 MMOL/L Final GLUCOSE 07/19/2023 102 (H) 70 - 99 MG/DL Final BUN 07/19/2023 20 (H) 7 - 18 MG/DL Final CREATININE S/P/B 07/19/2023 1.06 0.70 - 1.30 MG/DL Final CALCIUM S/P/B 07/19/2023 9.1 8.4 - 10.5 MG/DL Final BILIRUBIN TOTAL S/P/B 07/19/2023 0.7 0.2 - 1.0 MG/DL Final ALKALINE PHOSPHATASE S/P/B 07/19/2023 67 45 - 115 U/L Final AST 07/19/2023 24 15 - 37 U/L Final ALT 07/19/2023 60 16 - 63 U/L Final TOTAL PROTEIN S/P/B 07/19/2023 6.9 6.4 - 8.2 G/DL Final ALBUMIN S/P/B 07/19/2023 3.4 3.4 - 5.0 G/DL Final ANION GAP 07/19/2023 7.7 5 - 15 MMOL/L Final REFERENCE RANGE NOT ESTABLISHED OSMOLALITY (CALC) 07/19/2023 291 MOSM/KG Final REFERENCE RANGE NOT ESTABLISHED GFR ESTIMATE 07/19/2023 75 (L) >90 ML/MIN/1.73 M2 Final GFR NOTES 07/19/2023 GFR REFERENCES: Final Comment: THE ESTIMATED GFR IS CALCULATED USING THE 2020 CKD-EPI EQUATION. THE FOLLOWING CATEGORIES FOR GRADING RENAL FUNCTION ARE RECOMMENDED BY THE INTERNATIONAL SOCIETY OF NEPHROLOGY (KDIGO 2012 CLINICAL PRACTICE GUIDELINE). G1,NORMAL OR HIGH: >89 ml/min/1.73 m2 G2,MILDLY DECREASED: 60-89 ml/min/1.73 m2 G3A,MILDLY TO MODERATELY DECREASED: 45-59 ml/min/1.73 m2 G3B,MODERATELY TO SEVERELY DECREASED: 30-44 ml/min/1.73 m2 G4,SEVERELY DECREASED: 15-29 ml/min/1.73 m2 G5,KIDNEY FAILURE: <15 ml/min/1.73 m2 Labs are mostly within acceptable limits. WBC was elevated on 2nd check, but pt had been on prednisone and initial was WNL. Many labs were inadvertently repeated. Patient presents for follow-up on HLD. Patient [...] for shortness of breath. Musculoskeletal: See HPI Skin: See HPI Neurological: Negative for tingling. 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 Musculoskeletal: Cervical back: Neck supple. Feet: Right foot: Skin integrity: Erythema present. Lymphadenopathy: Cervical: No cervical adenopathy. Skin: General: Skin is warm and dry. Comments: Erythema and swelling notably improving, erythema not resolved entirely Neurological: Mental Status: He is alert. Mental status is at baseline. Psychiatric: Mood and Affect: Affect normal. Assessment & Plan: Brendon was seen today for follow up, foot pain, lab results and hypertension. Diagnoses and all orders for this visit: Right foot pain - XR FOOT RT 3V; Future Cellulitis of right lower extremity Essential hypertension, benign Pure hypercholesterolemia Discussion/Summary: Suspect cellulitis based improvement in symptoms and lab results. Repeat labs in 1 year. Will orderx-ray to rule out other pathology today. Continue current medications for hypertension hypercholesterolemia. Will have patient follow-up in 6 months for repeat assessment. Call back if symptoms worsen or change significantly. Patient verbalized understanding. Luiz Smalls DO ORM MACHINE OPERATOR documented in this encounter Plan of Treatment Upcoming Encounters Date Type Department Care Team (Late st Contact Info) Description 08/22/2024 8:00 AM PREFORM MACHINE OPERATOR Laboratory Only [facility] Family & Internal Medicine - [place] [address] [place] [address] Luiz Smalls DO [facility] [place] [address] 09/08/2024 2:30 PM PREFORM MACHINE OPERATOR Appointment [facility] [address] [place] [address] Guido Rider, DO [address] [facility] [address] [place] [address] 10/05/2024 3:00 PM PREFORM MACHINE OPERATOR Appointment [facility] [place] [address] Guido Rider DO [address] [facility] [address] [place] [address] 10/13/2024 10:30 AM PREFORM MACHINE OPERATOR Office Visit [facility]pec[facility] - [facility] [address] [facility] [place] [address] [place] [phone] Guido Rider DO [address] [facility] [address] [place] [id number] 01/08/2025 2:20 PM CDT Office Visit [facility] Family & Internal Medicine - [address] [phone] Luiz Smalls DO [address] [place] [phone] documented as of this encounter Results * XR FOOT RT 3V (07/22/2023 10:59 AM PREFORM MACHINE OPERATOR) Anatomical Region Laterality Modality Foot Radiographic Eleanor ging 07/22/2023 3:06 PM PREFORM MACHINE OPERATOR Impressions 07/22/2023 3:07 PM PREFORM MACHINE OPERATOR IMPRESSION: No acute osseous abnormality or osseous healing changes. Ordered By: LUIZ SMALLS Interpreted By: Bala White MD, 07/22/2023 3:06 PM Narrative 07/22/2023 3:07 PM PREFORM MACHINE OPERATOR Examination: XR FOOT RT 3V Exam time: 07/22/2023 10:52 AM Clinical history: Pain for 2 weeks. Improving. Comparison: No prior exam Technique: AP, oblique, and lateral views right foot Findings: Forefoot and hindfoot alignment is within normal limits. No evidence of fracture or acute osseous abnormality. Accessory ossifications adjacent to the second and fifth metatarsal heads as well as calcaneocuboid joint. Accessory ossification adjacent to the inner phalangeal joint. No evidence of periosteal reactions or healing changes. No evidence of abnormal soft tissue densities. Procedure Note Bala White MD - 07/22/2023 Examination: XR FOOT RT 3V Exam time: 07/22/2023 10:52 AM Clinical history: Pain for 2 weeks. Improving. Comparison: No prior exam Technique: AP, oblique, and lateral views right foot Findings: Forefoot and hindfoot alignment is within normal limits. Noevidence of fracture or acute osseous abnormality. Accessory ossificationsadjacent to the second and fifth metatarsal heads as well ascalcaneocuboid joint. Accessory ossification adjacent to the innerphalangeal joint. No evidence of periosteal reactions or healing changes.No evidence of abnormal soft tissue densities. IMPRESSION: No acute osseous abnormality or osseous healing changes. Ordered By: LUIZ SMALLS Interpreted By: Bala White MD, 07/22/2023 3:06 PM us Luiz Smalls DO GENERAL IMAGING Final Re sult documented in this encounter Visit Diagnoses Diagnosis Right foot pain- Primary Pain in limb Cellulitis of right lower extremity Cellulitis and abscess of leg, except foot Essential hypertension, benign Pure hypercholesterolemia documented in this encounter Care Teams Seamer Elastic Band Relationship Specialty Start Date End Date Luiz Smalls DO [address] [place] [address] PCP - General 12/19/22 documented as of this encounter
--- OUTSIDE RECORDS SUMMARY | 2024-08-19 06:38 | XMS_ITS | Encounter Summary ---
Author Organization [facility] Address [address] [place] [address]. [place] [address] [place] [address] Care Team Providers Care Food Critic Name Role Phone Inderjit Narayan DO Primary Care Provider + Encounter Details Date Type Department Care Team (Latest Contact Info) Description 07/07/2023 2:44 PM COO - 07/07/2023 11:59 PM COO Hospital Encounter [facility] [place] [address] Inderjit Narayan DO [address] [place] [address] Discharge Disposition: Home or Self Care (Routine [...] on file Legal Sex Male 10:29 AM COO Gender Identity Not on file Sexual Orientation Not on file Occupation Industry Job Start Date Job End Date Not on file Not on file Not on file Not on file documented as of this encounter Medications at Time of Discharge Cholecalciferol 50 MCG (1999) Tab Coenzyme Q10 (CO Q 10 OR) [...] times daily. 72 tablet 2 06/01/2023 11/09/2023 doxycycline hyclate (VIBRAMYCIN) 100 MG capsuleIndication s:Cellulitis of right lower extremity Take 1 capsule (100 mg total) by mouth 2 (two) times daily for 10 days. 20 capsule 07/07/2023 07/17/2023 famotidine (PEPCID) 20 MG tablet Take 1 [...] st Contact Info) Description 08/22/2024 8:00 AM COO Laboratory Only [facility] Family & Internal Medicine [address] [phone] Inderjit Narayan DO [address] [place] [address] 09/08/2024 2:30 PM COO Appointment [facility] [place] [address] [place] [address] Guido Rider DO [facility] [address] [place] [address] 10/05/2024 3:00 PM COO Appointment [facility] [place] [address] Guido Rider 3 [facility] [address] [place] [address] 10/13/2024 10:30 AM COO Office Visit [facility] Multispecialty Care - [facility] 3 [facility] [address] [place] [phone] Guido Rider 3 [facility] [address] [place] [address] 01/08/2025 2:20 PM CDT Office Visit [facility] Family & Internal Medicine - [address] [phone] Inderjit Narayan DO [address] [place] [address] documented as of this encounter Procedures Procedure Name Priority Date/Time Associated Diagnosis Comments TSH W/REFLEX Routine 07/07/2023 3:08 PM COO Vitamin D deficiency Prediabetes Screening for prostate cancer Screening for endocrine, metabolic and immunity disorder Screening for lipid disorders Essential hypertension, benign Pure hypercholesterolemia HEMOGLOBIN, GLYCOSYLATED Routine 07/07/2023 3:08 PM COO Vitamin D deficiency Prediabetes Screening for prostate cancer Screening for endocrine, metabolic and immunity disorder Screening for lipid disorders Essential hypertension, benign Pure hypercholesterolemia PROSTATE SPECIFIC ANTIGEN,SCREENING Routine 07/07/2023 3:08 PM COO Vitamin D deficiency Prediabetes Screening for prostate cancer Screening for endocrine, metabolic and immunity disorder Screening for lipid disorders Essential hypertension, benign Pure hypercholesterolemia COMPREHENSIVE METABOLIC PANEL Routine 07/07/2023 3:08 PM COO Vitamin D deficiency Prediabetes Screening for prostate cancer Screening for endocrine, metabolic and immunity disorder Screening for lipid disorders Essential hypertension, benign Pure hypercholesterolemia LIPID PANEL Routine 07/07/2023 3:08 PM COO Vitamin D deficiency Prediabetes Screening for prostate cancer Screening for endocrine, metabolic and immunity disorder Screening for lipid disorders Essential hypertension, benign Pure hypercholesterolemia CBC W/DIFF AUTOMATED Routine 07/07/2023 3:08 PM COO Vitamin D deficiency Prediabetes Screening for prostate cancer Screening for endocrine, metabolic and immunity disorder Screening for lipid disorders Essential hypertension, benign Pure hypercholesterolemia VITAMIN D, 25 OH Routine 07/07/2023 3:08 PM COO Vitamin D deficiency Prediabetes Screening for prostate cancer Screening for endocrine, metabolic and immunity disorder Screening for lipid disorders Essential hypertension, benign Pure hypercholesterolemia URIC ACID BLOOD Routine 07/07/2023 3:08 PM COO Vitamin D deficiency Prediabetes Screening for prostate cancer Screening for endocrine, metabolic and immunity disorder Screening for lipid disorders Essential hypertension, benign Pure hypercholesterolemia Left foot pain ALBUMIN URINE RANDOM W/CREATININE Routine 07/07/2023 2:51 PM COO Vitamin D deficiency Prediabetes Screening for prostate cancer Screening for endocrine, metabolic and immunity disorder Screening for lipid disorders Essential hypertension, benign Pure hypercholesterolemia documented in this encounter Results * URIC ACID BLOOD (07/07/2023 3:08 PM COO) URIC ACID 5.2 3.5 - 7.2 MG/DL 07/07/2023 4:23 PM COO [facility] 07/07/2023 3:08 PM COO Inderjit Narayan DO LABORATORY Final Re sult Performing Organization Address City/[facility]/ZIP Co de Phone Number [facility] [address] [place] [address], [place] [phone] * PROSTATE SPECIFIC ANTIGEN,SCREENING (07/07/2023 3:08 PM COO) PSA 0.45 <4.00 NG/ML 07/07/2023 4:23 PM COO [facility] Comment: Test was performed using the Siemens method. ??Results obtained with other assay methods or kits cannot be used interchangeably with results obtained by the Siemens method. 07/07/2023 3:08 PM COO Inderjit Narayan DO LABORATORY Final Re sult Performing Organization Address [facility] Co de Phone Number [facility] [address] [place] [address], [place] [phone] * HEMOGLOBIN, GLYCOSYLATED (07/07/2023 3:08 PM COO) HGB A1C 5.6 <5.7 % 07/07/2023 5:50 PM COO [facility] Comment: ADA GUIDELINES 2010 5.7 TO 6.4% INCREASED RISK OF DIABETES > OR = 6.5% CONSISTENT WITH DIABETES ESTIMATED AVG GLUCOSE 114 mg/dL 07/07/2023 5:50 PM COO [facility] 07/07/2023 3:08 PM COO us Inderjit Nayeli Narayan DO LABORATORY Final Re sult [facility] [address] [place] [address], [place] [phone] * (ABNORMAL) COMPREHENSIVE METABOLIC PANEL (07/07/2023 3:08 PM COO) [facility] GLUCOSE 119(H) 70 - 99 MG/DL 07/07/2023 4:23 PM COO [facility] BUN 10 7 - 18 MG/DL 07/07/2023 4:23 PM COO [facility] CREATININE S/P/B 0.95 0.7 - 1.3 MG/DL 07/07/2023 4:23 PM COO [facility] SODIUM S/P/B 141 136 - 145 MMOL/L 07/07/2023 4:23 PM COO [facility] POTASSIUM S/P/B 4.0 3.5 - 5.1 MMOL/L 07/07/2023 4:23 PM COO [facility] CHLORIDE S/P/B 109(H) 100 - 108 MMOL/L 07/07/2023 4:23 PM COO [facility] CO2 27.0 21 - 32 MMOL/L 07/07/2023 4:23 PM COO [facility] CALCIUM S/P/B 9.2 8.5 - 10.1 MG/DL 07/07/2023 4:23 PM COO [facility] BILIRUBIN TOTAL S/P/B 0.6 0.2 - 1.2 MG/DL 07/07/2023 4:23 PM [facility] Comment: THIS ASSAY IS NOT RECOMMENDED FOR PATIENTS UNDERGOING TREATMENT WITH ELTROMBOPAG DUE TO THE POTENTIAL FOR FALSELY ELEVATED RESULTS. TOTAL PROTEIN S/P/B 7.7 6.4 - 8.2 G/DL 07/07/2023 4:23 PM [facility] ALBUMIN S/P/B 3.5 3.4 - 5.0 G/DL 07/07/2023 4:23 PM [facility] AST 26 15 - 37 U/L 07/07/2023 4:23 PM [facility] ALT 42 16 - 60 U/L 07/07/2023 4:23 PM [facility] ALKALINE PHOSPHATASE S/P/B 76 50 - 136 U/L 07/07/2023 4:23 PM [facility] ANION GAP 5.0 5 - 15 MMOL/L 07/07/2023 4:23 PM [facility] BUN CREATININE RATIO 10.6 6 - 26 07/07/2023 4:23 PM [facility] A/G RATIO 0.8(L) 1.0 - 2.0 RATIO 07/07/2023 4:23 PM [facility] GFR ESTIMATE 86(L) >90 ML/MIN/1.7 3 M2 07/07/2023 4:23 PM [facility] Comment: NOTE: eGFR is not calculated for patients <18 years of age. This is an estimated GFR calculation using the new CKD EPI creatinine equation without race and so does not require a correction factor for race. This estimated GFR should not be used for calculating drug doses. 07/07/2023 3:08 PM COO us Inderjit Narayan DO LABORATORY Final Re sult [facility] [address] [place] [address], [place] [phone] * VITAMIN D, 25 OH (07/07/2023 3:08 PM COO) Pathologist [facility] VITAMIN D 25 HYDROXY S/P/B 37 30 - 100 NG/ML 07/07/2023 4:03 PM COO [facility] Comment: ? INTERPRETATION ? DEFICIENT ??<20 ? INSUFFICIENT 20-29 ?SUFFICIENT 30-100 07/07/2023 3:08 PM COO Indejrit Narayan DO LABORATORY Final Re sult Performing Organization Address [facility] de Phone Number [facility] [address] [place] [address], [place] [phone] * TSH W/REFLEX (07/07/2023 3:08 PM COO) [facility] TSH 1.760 0.358 - 3.74 uIU/ML 07/07/2023 4:23 PM COO [facility] Comment: HIGH DOSES OF BIOTIN MAY INTERFERE WITH THIS TEST RESULT. CORRELATION TO CLINICAL HISTORY AND PRESENTATION RECOMMENDED. FREE T4 NOT INDICATED 07/07/2023 3:08 PM COO Inderjit Narayan DO LABORATORY Final Re sult Performing Organization Address [facility] de Phone Number [facility] [address] [place] [address], [place] [phone] * (ABNORMAL) LIPID PANEL (07/07/2023 3:08 PM COO) [facility] CHOLESTEROL 146 <200 MG/DL 07/07/2023 4:23 PM COO [facility] TRIGLYCERIDES 160(H) <150 MG/DL 07/07/2023 4:23 PM COO [facility] HDL 43 >40.0 MG/DL 07/07/2023 4:23 PM [facility] LDL (CALCULATED) 71 <100 MG/DL 07/07/2023 4:23 PM [facility] NON HDL CHOLESTEROL 103 <130 MG/DL 07/07/2023 4:23 PM [facility] CHOL/HDL RATIO 3.4 0.0 - 4.5 07/07/2023 4:23 PM [facility] VLDL CALCULATION 32 5 - 55 MG/DL 07/07/2023 4:23 PM [facility] LIPID INTERPRETATION 07/07/2023 4:23 PM [facility] Comment: [facility] REPORT RECOMMENDATIONS: ?ADULT ?CHILD ??LOW RISK: ?CHOLESTEROL ? <200 ? <170 ?TRIGLYCERIDE ?<150 ?--- ?HDL ? >=60 ?--- ?LDL ? <100 ? <110 ??BORDERLINE: ?CHOLESTEROL ? 200-239 ?? 170-199 ?TRIGLYCERIDE ?150-199 ? --- ?HDL ?40-59 ?--- ?LDL ? 100-159 ?? 110-129 ??HIGH RISK: ?CHOLESTEROL ? >=240 ?>=200 ?TRIGLYCERIDE ?>=200 ? --- ?HDL ?<40 ?--- ?LDL ? >=160 ?>=130 07/07/2023 3:08 PM COO us Inderjit Narayan DO LABORATORY Final Re sult [facility] [address] [place] [address], * (ABNORMAL) CBC W/DIFF AUTOMATED (07/07/2023 3:08 PM COO) WBC 7.9 4.5 - 11.0 x10'3/uL 07/07/2023 3:35 PM COO [facility] RBC 4.84 4.70 - 6.10 x10'6/uL 07/07/2023 3:35 PM COO [facility] HGB 14.7 14.0 - 18.0 G/DL 07/07/2023 3:35 PM COO [facility] HCT 45.4 43.0 - 54.0 % 07/07/2023 3:35 PM COO [facility] MCV 93.8 80.0 - 94.0 FL 07/07/2023 3:35 PM COO [facility] MCH 30.4 27.0 - 31.0 PG 07/07/2023 3:35 PM COO [facility] MCHC 32.4 32.0 - 36.0 G/DL 07/07/2023 3:35 PM COO [facility] RDW 12.5 11.5 - 14.5 % 07/07/2023 3:35 PM COO [facility] PLT 229 130 - 400 x10'3/uL 07/07/2023 3:35 PM [facility] MPV 9.8 9.3 - 12.2 FL 07/07/2023 3:35 PM [facility] DIFFERENTIAL TYPE AUTOMATED DIFFERENTIAL 07/07/2023 3:35 PM [facility] NEUTROPHILS % 49.5 % 07/07/2023 3:35 PM [facility] LYMPHOCYTES % 31.1 % 07/07/2023 3:35 PM [facility] MONOCYTES % 12.8 % 07/07/2023 3:35 PM [facility] EOSINOPHILS 4.9 % 07/07/2023 3:35 PM [facility] BASOPHILS 1.3 % 07/07/2023 3:35 PM [facility] IMMATURE GRANS % 0.4 % 07/07/20 3:35 PM [facility] ABS. NEUTROPHILS TOTAL 3.91 1.80 - 7.70 x10'3/uL 07/07/2023 3:35 PM [facility] ABS. LYMPHOCYTES 2.46 1.00 - 4.80 x10'3/uL 07/07/2023 3:35 PM [facility] ABS. MONOCYTES 1.01(H) 0.30 - 0.82 x10'3/uL 07/07/2023 3:35 PM [facility] ABS. EOSINOPHILS 0.39 0.04 - 0.54 x10'3/uL 07/07/2023 3:35 PM [facility] ABS. BASOPHILS 0.10(H) 0.01 - 0.08 x10'3/uL 07/07/2023 3:35 PM COO [facility] ABS. IMMATURE GRANULOCYTES 0.03 0.00 - 0.49 x10'3/uL 07/07/2023 3:35 PM COO [facility] 07/07/2023 3:08 PM COO Inderjit Narayan DO LABORATORY Final Re sult [facility] [address] [place] [address], [place] [phone] * ALBUMIN URINE RANDOM (07/07/2023 2:51 PM COO) CREATININE (U) 87.6 39 - 259 MG/DL 07/08/2023 3:08 AM COO [facility] MICROALBUMIN (U) 0.8 <2.0 mg/dL 07/08/20 3:08 AM COO [facility] ALBUMIN/CREAT RATIO 9.0 <30 MG/G 07/08/2023 3:08 AM COO [facility] URINE SPECIMEN / Unknown 07/07/2023 2:51 PM COO Inderjit Narayan DO URINE ORDERABLES Final R esult [facility] [address] [place] [address], [place] [phone] documented in this encounter Visit Diagnoses Diagnosis Vitamin D deficiency Unspecified vitamin D deficiency Prediabetes Other abnormal glucose Screening for prostate cancer Special screening for malignant neoplasm of prostate Screening for endocrine, metabolic and immunity disorder Screening for lipid disorders Essential hypertension, benign Pure hypercholesterolemia Left foot pain Pain in limb documented in this encounter Care Teams Food Critic Relationship Specialty Start Date End Date Inderjit Narayan DO [address] [place] [id number] PCP - General 12/19/22 documented as of this encounter
--- OUTSIDE RECORDS SUMMARY | 2024-08-19 06:38 | XMS_ITS | Encounter Summary ---
Author Organization [facility] Address [address] [place] [address]. [place], [place] [address] [place] [address] Care Team Providers Care Group Reservations Coordinator Name Role Phone Inderjit Narayan DO Primary Care Provider + Reason for Referral * Audiology Exam (Routine) - Closed Specialty Diagnoses / Procedures Referred By Georgei gallagher Referred To Contact AUDIOLOGY Diagnoses Presbycusis of both ears Procedures OFFICE/OUTPT VISIT,NEW,LEVL III OFFICE/OUTPT VISIT,NEW,LEVL IV OFFICE/OUTPT VISIT,NEW,LEVL V OFFICE/OUTPT VISIT,EST,LEVL III OFFICE/OUTPT VISIT,EST,LEVL IV OFFICE/OUTPT VISIT,EST,LEVL V Inderjit Narayan DO [address] [place] [address] Phone: tel: fax: [facility], [address] [address] Phone: tel: fax: Referral ID Status Reason Start Date Expiration Date V isits Requested Visits Authorized [id number] Closed Specialty Services 12/22/2022 01/21/2024 99 99 * Consultation (Routine) - Closed Specialty Diagnoses / Procedures Referred By Contjeanie t Referred To Contact GASTROENTEROLOGY Diagnoses Screening for malignant neoplasm of colon Procedures OFFICE/OUTPT VISIT,NEW,LEVL III OFFICE/OUTPT VISIT,NEW,LEVL IV OFFICE/OUTPT VISIT,NEW,LEVL V OFFICE/OUTPT VISIT,EST,LEVL III OFFICE/OUTPT VISIT,EST,LEVL IV OFFICE/OUTPT VISIT,EST,LEVL V Inderjit Narayan DO [address] [place] [address] Phone: tel: fax: Maicol Zamarripa MD [address] [place] [address] Phone: tel: fax: Referral ID Status Reason Start Date Expiration Date Visits Re quested Visits Authorized [id number] Closed 12/22/2022 01/23/2024 1 1 Reason for Visit * Reason Comments Physical Patient presents to est care. Hypertension Hyperlipidemia Encounter Details Date Type Department Care Team (Latest Contact Info) Description 12/22/2022 1:00 PM CDT Office Visit [facility] Medical Group Family & Internal Medicine [facility] [address] [place] [address] Inderjit Narayan DO [address] [place] [address] Physical (Patient presents to est care. 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 No / Unsure 12/22/2022 12:35 PM CDT documented as of this encounter Last Filed Vital Signs Vital Sign Reading Time Taken Comments Blood Pressure 124/72 12/22/2022 1:05 PM CDT Pulse 71 12/22/2022 1:05 PM CDT Temperature 36.7 ??C (98 ??F) 12/22/2022 1:05 PM CDT Respiratory Rate 16 12/22/2022 1:05 PM CDT Oxygen Saturation 98% 12/22/2022 1:05 PM CDT Inhaled Oxygen Concentration - - Weight 95.6 kg (210 lb 11.2 oz) 12/22/2022 1:05 PM CDT Height 180.3 cm (5' 11 ) 12/22/2022 1:05 PM CDT Body Mass Index 29.39 12/22/2022 1:05 PM CDT documented in this encounter Progress Notes * Inderjit Narayan, - 12/22/2022 1:00 PM CDT Images from the original note were not included. GENERAL OFFICE VISIT Encounter Date: 12/22/2022 Chief Complaint: 72-year-old male presents for Physical (Patient presents to [facility]. ), Hypertension, and Hyperlipidemia HPI: Patient presents for follow-up on essential hypertension. Patient has had hypertension for multipleyears. Current medications include Losartan. Patient's blood pressure is well controlled at this time. No side effects noted from medications. Concurrent conditions include Hyperlipidemia. Pt has allergic rhinitis. He is on montelukast and Zyrtec-D. He also uses cough drops. He has been stable with it at this time. Patient presents for follow-up on GERD. Patient has had this for multiple years. Patient is currently taking Omeprazole. Patient's symptoms are well controlled. Patient does not see gastroenterology regularly. Patient has not had an EGD in the past. Patient presents for follow-up on HLD. Patient has had HLD for multiple years. Current medications include simvastatin. Current side effects include none. Patient does not need labs drawn today. Pt has BPH. Pt is on tamsulosin at this time. He has had kidney stones a few years ago. He is stable at this time. Pt is due for colonoscopy and needs referral today. Review of Systems Constitutional: Negative for fever. HENT: See HPI Respiratory: See HPI Cardiovascular: Negative for chest pain. Musculoskeletal: Negative for myalgias. Patient Active Problem List Diagnosis Allergic rhinitis Essential hypertension, benign Esophageal reflux Prediabetes Osteoarthrosis Pure hypercholesterolemia Vitamin D deficiency Benign prostatic hyperplasia without lower urinary tract symptoms Presbycusis of both ears Past Medical History: Diagnosis Date Cataract 2020 Surgery both eyes Colon adenoma 01/22/2014 GERD (gastroesophageal reflux disease) [id number] Hypertension Kidney stone 12/22/2022 S/P right rotator cuff repair 09/30/2018 Stasis dermatitis of both legs 03/18/2018 Past Surgical History: Procedure Laterality Date BRAIN SURGERY blood clot removed at age 4 or 5 due to trauma, now has portion of skull caved in after accident around age 52 CATARACT EXTRACTION Bilateral 2020 REMOVAL OF SPERM DUCT(S) Family History Problem Relation Name Age of Onset Heart Disease Mother Bell Social History Socioeconomic History Marital status: Spouse name: Lady Number of children: Not on file Years of education: Not on file Highest education level: Not on file Occupational History Comment: 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 Tobacco Use Smoking status: [...] Dose - >Age 65 (Prefilled Syringe) 07/12/2021, 06/01/2022 Influenza 07/13/2016, 04/25/2020, 07/12/2021 Influenza Adult (Generic) 07/16/2015, 05/21/2017, 05/12/2018, 06/10/2019, 04/25/2020 MODERNA COVID-19 (12+) MRNA, LNP-S, PF, 100 MCG/ 0.5 ML DOSE 09/20/2020, 10/18/2020, 06/13/2021 PFIZER COVID-19 BIVALENT (12+) mRNA, LNP-S, PF, [...] redness Sulfa Antibiotics Rash Objective: Filed Vitals: 12/22/22 1305 BP: 124/72 Pulse: 71 Resp: 16 Temp: 98 ??F (36.7 ??C) TempSrc: Skin SpO2: 98% Weight: 95.6 kg (210 lb 11.2 oz) Height: 5' 11 (1.803 m) Physical Exam Vitals and nursing note reviewed. HENT: Head: Normocephalic and atraumatic. Right Ear: Tympanic membrane, ear canal and external ear normal. Left Ear: Tympanic membrane, ear canal and external ear normal. Mouth/Throat: Pharynx: No oropharyngeal exudate. Eyes: General: No scleral icterus. Conjunctiva/sclera: Conjunctivae [...] abdominal tenderness. Musculoskeletal: Cervical back: Neck supple. Lymphadenopathy: Cervical: No cervical adenopathy. Skin: General: Skin is warm and dry. Findings: No rash. Neurological: Mental Status: He is alert and oriented to person, place, and time. Psychiatric: Mood and Affect: Mood and affect normal. Assessment & Plan: Brendon was seen today for physical, hypertension and hyperlipidemia. Diagnoses and all orders for this visit: Encounter to establish care with new doctor Essential hypertension, benign - CBC W/DIFF AUTOMATED; Future - COMPREHENSIVE METABOLIC PANEL; Future - TSH W/REFLEX; Future - LIPID PANEL; Future - VITAMIN D, 25 OH; Future - HEPATITIS C ANTIBODY; Future - CK (CPK); Future - PROSTATE SPECIFIC ANTIGEN,SCREENING; Future Pure hypercholesterolemia - CBC W/DIFF AUTOMATED; Future - COMPREHENSIVE METABOLIC PANEL; Future - TSH W/REFLEX; Future - LIPID PANEL; Future - VITAMIN D, 25 OH; Future - HEPATITIS C ANTIBODY; Future - CK (CPK); Future - PROSTATE SPECIFIC ANTIGEN,SCREENING; Future Vitamin D deficiency - CBC W/DIFF AUTOMATED; Future - COMPREHENSIVE METABOLIC PANEL; Future - TSH W/REFLEX; Future - LIPID PANEL; Future - VITAMIN D, 25 OH; Future - HEPATITIS C ANTIBODY; Future - CK (CPK); Future - PROSTATE SPECIFIC ANTIGEN,SCREENING; Future Benign prostatic hyperplasia without lower urinary tract symptoms Need for hepatitis C screening test - CBC W/DIFF AUTOMATED; Future - COMPREHENSIVE METABOLIC PANEL; Future - TSH W/REFLEX; Future - LIPID PANEL; Future - VITAMIN D, 25 OH; Future - HEPATITIS C ANTIBODY; Future - CK (CPK); Future - PROSTATE SPECIFIC ANTIGEN,SCREENING; Future Screening for prostate cancer - CBC W/DIFF AUTOMATED; Future - COMPREHENSIVE METABOLIC PANEL; Future - TSH W/REFLEX; Future - LIPID PANEL; Future - VITAMIN D, 25 OH; Future - HEPATITIS C ANTIBODY; Future - CK (CPK); Future - PROSTATE SPECIFIC ANTIGEN,SCREENING; Future Screening for endocrine, metabolic and immunity disorder - CBC W/DIFF AUTOMATED; Future - COMPREHENSIVE METABOLIC PANEL; Future - TSH W/REFLEX; Future - LIPID PANEL; Future - VITAMIN D, 25 OH; Future - HEPATITIS C ANTIBODY; Future - CK (CPK); Future - PROSTATE SPECIFIC ANTIGEN,SCREENING; Future Screening for lipid disorders - CBC W/DIFF AUTOMATED; Future - COMPREHENSIVE METABOLIC PANEL; Future - TSH W/REFLEX; Future - LIPID PANEL; Future - VITAMIN D, 25 OH; Future - HEPATITIS C ANTIBODY; Future - CK (CPK); Future - PROSTATE SPECIFIC ANTIGEN,SCREENING; Future Prediabetes - HEMOGLOBIN, GLYCOSYLATED; Future Screening for malignant neoplasm of colon - Ambulatory referral to Gastroenterology ([facility]) Presbycusis of both ears - Ambulatory referral to Audiology Allergic rhinitis, unspecified seasonality, unspecified trigger Gastroesophageal reflux disease, unspecified whether esophagitis present Discussion/Summary: Will switch from omeprazole to famotidine; may need to switch back in future. Will refer to audiology and GI. Continue other meds as prescribed; stable. Will order labs to be done prior to next OV in6 months. Pt v/u. I personally spent a total of 45 minutes on the day of the encounter. This includes [id number]-[id number] and nyz-uxsv-zk-face time I provided on the day of the encounter & excludes time spent performing separately reportable services. Inderjit Narayan DO documented in this encounter Plan of Treatment Upcoming Encounters Date Type Department Care Team (Late st Contact Info) Description 08/22/2024 8:00 AM NEUROLOGY TEACHER Laboratory Only [facility] Family & Internal Medicine - [address] [address] Inderjit Narayan DO [address] [place] [address] 09/08/2024 2:30 PM NEUROLOGY TEACHER Appointment [facility] [address] [place] [address] Guido Rider DO [address] [facility] [address] [place] [address] 10/05/2024 3:00 PM NEUROLOGY TEACHER Appointment [facility] [place] [address] Guido Rider DO 3 [facility] [address] [place] [address] 10/13/2024 10:30 AM NEUROLOGY TEACHER Office Visit [facility] Multispecialty Care - [facility] [address] [facility] [address] [place] [address] Guido Rider DO 3 [facility] [address] [place] [address] 01/08/2025 2:20 PM CDT Office Visit [facility] Medical Group Family & Internal Medicine [facility] [address] [place] [phone] Inderjit Narayan DO [address] [place] [address] Scheduled Referrals Name Type Priority Associated Diagnoses Orde r Schedule Ambulatory referral to Gastroenterology ( ) Referral Routine Screening for malignant neoplasm of colon Ordered: 12/22/2022 Ambulatory referral to Audiology Referral Routine Presbycusis of both ears Ordered: 12/22/2022 documented as of this encounter Results * (ABNORMAL) HEMOGLOBIN, GLYCOSYLATED (07/19/2023 10:20 AM NEUROLOGY TEACHER) Pathologist [facility] HGB A1C 6.0 4.5 - 6.2 % 07/19/2023 2:36 PM NEUROLOGY TEACHER [facility] ESTIMATED AVG GLUCOSE 126(H) 74 - 106 MG/DL 07/19/2023 2:36 PM NEUROLOGY TEACHER [facility] 07/19/2023 10:2 0 AM NEUROLOGY TEACHER Inderjit Narayan DO LABORATORY Final Re sult [facility] [address] [place] [address], [place] [phone] * PROSTATE SPECIFIC ANTIGEN,SCREENING (07/19/2023 10:20 AM NEUROLOGY TEACHER) [facility] PSA 0.42 <4.00 NG/ML 07/19/2023 3:06 PM NEUROLOGY TEACHER [facility] Comment: ASSAY PERFORMED BY [employer] METHODOLOGY USING SIEMENS DIMENSION REAGENT. PATIENT RESULTS DETERMINED BY ASSAYS FROM DIFFERENT MANUFACTURERS AND/OR BY DIFFERENT METHODS MAY NOT BE COMPARABLE. 07/19/2023 10:2 0 AM NEUROLOGY TEACHER Inderjit Nayeli Santosrickyjosseline DO LABORATORY Final Re sult Performing Organization Address [facility] Co de Phone Number [facility] [address] [place] [address], [place] [phone] * CK (CPK) (07/19/2023 10:20 AM NEUROLOGY TEACHER) Pathologist [facility] CPK 47 39 - 308 U/L 07/19/2023 2:38 PM NEUROLOGY TEACHER [facility] 07/19/2023 10:2 0 AM NEUROLOGY TEACHER Inderjit Nayeli Maria Doloresjosseline DO LABORATORY Final Re sult Performing Organization Address [facility] Co de Phone Number [facility] [address] [place] [address], [place] [phone] * HEPATITIS C ANTIBODY (07/19/2023 10:20 AM NEUROLOGY TEACHER) [facility] HEPATITIS C AB NON-REACTI VE NON-REACT ELDER 07/19/2023 6:22 PM NEUROLOGY TEACHER [facility] Comment: ANTIBODIES TO HCV NOT DETECTED. DOES NOT EXCLUDE THE POSSIBILITY OF EXPOSURE TO HCV. 07/19/2023 10:2 0 AM NEUROLOGY TEACHER Inderjit Nayeli Santosrickyjosseline DO LABORATORY Final Re sult Performing Organization Address City/[facility] Co de Phone Number [facility] [address] [place] [address], [place] [phone] * VITAMIN D, 25 OH (07/19/2023 10:20 AM NEUROLOGY TEACHER) Pathologist [facility] VITAMIN D 25 HYDROXY TOTAL S/P/B 64.4 30 - 100 NG/ML 07/19/2023 3:05 PM [facility]UROLOGY TEACHER [facility] [place] Comment: ? DEFICIENT ??<20 ?INSUFFICIENT 20-30 ?SUFFICIENT 30-100 07/19/2023 10:2 0 AM NEUROLOGY TEACHER Inderjit Narayan DO LABORATORY Final Re sult Performing Organization Address City/[facility]/ZIP Co de Phone Number [facility] [place], [place] [address] [place] [address], * LIPID PANEL (07/19/2023 10:20 AM NEUROLOGY TEACHER) CHOLESTEROL 151 <200 MG/DL 07/19/2023 3:05 PM [facility] TRIGLYCERIDES 105 <150 MG/DL 07/19/2023 3:05 PM [facility] HDL 64 >40 MG/DL 07/19/2023 3:05 PM [facility] LDL-C 66 <100 MG/DL 07/19/2023 3:05 PM [facility] VLDL CALCULATION 21 5 - 28 MG/DL 07/19/2023 3:05 PM [facility] CHOL/HDL RATIO 2.4 0.0 - 4.0 07/19/2023 3:05 PM [facility] LDL/HDL 1.0 0.41 - 2.13 07/19/2023 3:05 PM NEUROLOGY TEACHER [facility] NON HDL CHOLESTEROL 87 <140 MG/DL 07/19/2023 3:05 PM NEUROLOGY TEACHER [facility] 07/19/2023 10:2 0 AM NEUROLOGY TEACHER Inderjit Narayan DO LABORATORY Final Re sult Performing Organization Address City/[facility]/ZIP Co de Phone Number [facility] [place] [address] [place] [address], [place] [phone] * TSH W/REFLEX (07/19/2023 10:20 AM NEUROLOGY TEACHER) TSH 1.461 0.358 - 3.740 uIU/ML 07/19/2023 3:05 PM NEUROLOGY TEACHER [facility] 07/19/2023 10:2 0 AM NEUROLOGY TEACHER us Inderjit Narayan DO LABORATORY Final Re sult [facility] [place] [address] [facility] [place] [address], [place] [phone] * (ABNORMAL) COMPREHENSIVE METABOLIC PANEL (07/19/2023 10:20 AM NEUROLOGY TEACHER) SODIUM S/P/B 139 136 - 145 MMOL/L 07/19/2023 3:05 PM [facility] POTASSIUM S/P/B 4.8 3.5 - 5.1 MMOL/L 07/19/2023 3:05 PM [facility] CHLORIDE S/P/B 103 98 - 107 MMOL/L 07/19/2023 3:05 PM [facility] CO2 28.3 21 - 32 MMOL/L 07/19/2023 3:05 PM [facility] GLUCOSE 102(H) 70 - 99 MG/DL 07/19/2023 3:05 PM [facility] BUN 20(H) 7 - 18 MG/DL 07/19/2023 3:05 PM [facility] CREATININE S/P/B 1.06 0.70 - 1.30 MG/DL 07/19/2023 3:05 PM [facility] CALCIUM S/P/B 9.1 8.4 - 10.5 MG/DL 07/19/2023 3:05 PM [facility] [place] BILIRUBIN TOTAL S/P/B 0.7 0.2 - 1.0 MG/DL 07/19/2023 3:05 PM [facility] [place] ALKALINE PHOSPHATASE S/P/B 67 45 - 115 U/L 07/19/2023 3:05 PM [facility] [place] AST 24 15 - 37 U/L 07/19/2023 3:05 PM [facility] ALT 60 16 - 63 U/L 07/19/2023 3:05 PM [facility] [place] TOTAL PROTEIN S/P/B 6.9 6.4 - 8.2 G/DL 07/19/2023 3:05 PM [facility] [place] ALBUMIN S/P/B 3.4 3.4 - 5.0 G/DL 07/19/2023 3:05 PM [facility] [place] ANION GAP 7.7 5 - 15 MMOL/L 07/19/2023 3:05 PM [facility] Comment:REFERENCE RANGE NOT ESTABLISHED OSMOLALITY (CALC) 291 MOSM/KG 023 3:05 PM [facility] Comment:REFERENCE RANGE NOT ESTABLISHED GFR ESTIMATE 75(L) >90 ML/MIN/1. 73 M2 07/19/2023 3:05 PM [facility] GFR NOTES GFR REFERENCE S: 07/19/2023 3:05 PM [facility] Comment: THE ESTIMATED GFR IS CALCULATED USING [...] ml/min/1.73 m2 G5,KIDNEY FAILURE: <15 ml/min/1.73 m2 07/19/2023 10:2 0 AM NEUROLOGY TEACHER Inderjit Narayan DO LABORATORY Final Re sult [facility] [place] [address] [place] [address], * (ABNORMAL) CBC W/DIFF AUTOMATED (07/19/2023 10:20 AM NEUROLOGY TEACHER) WBC 11.02(H) 4.00 - 10.80 x10'3/uL 07/19/2023 2:14 PM NEUROLOGY TEACHER [facility] RBC 5.25 4.50 - 6.10 x10'6/uL 07/19/2023 2:14 PM NEUROLOGY TEACHER [facility] HGB 15.9 13.0 - 18.0 G/DL 07/19/2023 2:14 PM NEUROLOGY TEACHER [facility] HCT 48.7 37.0 - 52.0 % 07/19/2023 2:14 PM NEUROLOGY TEACHER [facility] MCV 92.8 78.0 - 100.0 FL 07/19/2023 2:14 PM NEUROLOGY TEACHER [facility] MCH 30.3 27.0 - 31.0 PG 07/19/2023 2:14 PM NEUROLOGY TEACHER [facility] MCHC 32.6(L) 33.0 - 36.0 G/DL 07/19/2023 2:14 PM NEUROLOGY TEACHER [facility] RDW 12.8 11.5 - 14.5 % 07/19/2023 2:14 PM NEUROLOGY TEACHER [facility] PLT 221 150 - 350 x10'3/uL 07/19/2023 2:14 PM NEUROLOGY TEACHER [facility] MPV 10.0 7.4 - 10.4 FL 07/19/2023 2:14 PM NEUROLOGY TEACHER [facility] DIFFERENTIAL TYPE AUTOMATED DIFFERENTIAL 07/19/2023 2:14 PM NEUROLOGY TEACHER [facility] NEUTROPHILS % 64.8 % 07/19/2023 2:14 PM NEUROLOGY TEACHER [facility] LYMPHOCYTES % 23.1 % 07/19/2023 2:14 PM NEUROLOGY TEACHER [facility] MONOCYTES % 8.6 % 07/19/2023 2:14 PM NEUROLOGY TEACHER [facility] EOSINOPHILS % 2.3 % 07/19/2023 2:14 PM NEUROLOGY TEACHER [facility] BASOPHILS % 0.7 % 07/19/2023 2:14 PM NEUROLOGY TEACHER [facility] IMMATURE GRANS % 0.5 % 07/19/2023 2:14 PM NEUROLOGY TEACHER [facility] ABS. NEUTROPHILS 7.14 1.60 - 8.30 x10'3/uL 07/19/2023 2:14 PM NEUROLOGY TEACHER [facility] ABS. LYMPHOCYTES 2.55 0.80 - 4.70 x10'3/uL 07/19/2023 2:14 PM NEUROLOGY TEACHER [facility] ABS. MONOCYTES 0.95 0.00 - 1.50 x10'3/uL 07/19/2023 2:14 PM NEUROLOGY TEACHER [facility] ABS. EOSINOPHILS 0.25 0.00 - 0.40 x10'3/uL 07/19/2023 2:14 PM NEUROLOGY TEACHER [facility] ABS. BASOPHILS 0.08 0.00 - 0.20 x10'3/uL 07/19/2023 2:14 PM NEUROLOGY TEACHER [facility] ABS. IMMATURE GRANULOCYTES 0.05(H) 0.00 - 0.03 x10'3/uL 07/19/2023 2:14 PM NEUROLOGY TEACHER [facility] 07/19/2023 10:2 0 AM NEUROLOGY TEACHER us Inderjit Narayan DO LABORATORY Final Re sult [facility] [place] [address] [place] [address], documented in this encounter Visit Diagnoses Diagnosis Encounter to establish care with new doctor- Primary Other reasons for seeking consultation Essential hypertension, benign Pure hypercholesterolemia Vitamin D deficiency Unspecified vitamin D deficiency Benign prostatic hyperplasia without lower urinary tract symptoms Need for hepatitis C screening test Special screening examination for other specified viral diseases Screening for prostate cancer Special screening for malignant neoplasm of prostate Screening for endocrine, metabolic and immunity disorder Screening for lipid disorders Prediabetes Other abnormal glucose Screening for malignant neoplasm of colon Presbycusis of both ears Presbyacusis Allergic rhinitis, unspecified seasonality, unspecified trigger Gastroesophageal reflux disease, unspecified whether esophagitis present documented in this encounter Care Teams Group Reservations Coordinator Relationship Specialty Start Date End Date Inderjit Narayan DO [address] [place] [address] PCP - General 12/19/22 documented as of this encounter
--- OUTSIDE RECORDS SUMMARY | 2024-08-19 06:38 | XMS_ITS | Encounter Summary ---
Author Organization [facility] Address [address] [place] [address]. [place] [address] [place] [address] Care Team Providers Care Residential Life Director Name Role Phone Inderjit Narayan DO Primary Care Provider + Encounter Details Date Type Department Care Team (Latest Contact Info) Description 07/19/2023 Travel Social History Tobacco Use Types Packs/Day [...] on file Legal Sex Male 10:29 AM REGIONAL ENGINEER Gender Identity Not on file Sexual Orientation Not on file Occupation Industry Job Start Date Job End Date Not on file Not on file Not on file Not on file documented as of this encounter Plan of Treatment Upcoming Encounters Date Type Department Care Team (Late st Contact Info) Description 08/22/2024 8:00 AM REGIONAL ENGINEER Laboratory Only [facility] Medical Group Family & Internal Medicine - [id number] [place] [address] Inderjit Narayan DO [address] [place] [address] 09/08/2024 2:30 PM REGIONAL ENGINEER Appointment [facility] [address] [place] [address] Guido Rider, DO [address] [facility] [address] [place] [address] 10/05/2024 3:00 PM REGIONAL ENGINEER Appointment [facility] Respiratory Therapy [address] [place] [address] Guido Rider, DO [address] [facility] [address] [place] [address] 10/13/2024 10:30 AM REGIONAL ENGINEER Office Visit [facility] Multispecialty Care - [facility] [address] [facility] [address] [place] [address] Guido Rider, DO [address] [facility] [address] [place] [address] 01/08/2025 2:20 PM CDT Office Visit [facility] Medical [facility] Family & Internal Medicine [address] [address] Inderjit Narayan DO [address] [place] [address] documented as of this encounter Visit Diagnoses Not on filedocumented in this encounter Care Teams Residential Life Director Relationship Specialty Start Date End Date Inderjit Narayan DO [address] [place] [address] PCP - General 12/19/22 documented as of this encounter
--- OUTSIDE RECORDS SUMMARY | 2024-08-19 06:38 | XMS_ITS | Encounter Summary ---
Author Organization [facility] Address [address] [place] [address]. [place] [address] [place] [address] Care Team Providers Care Customer Relations Consultant Name Role Phone Luiz Smalls DO Primary Care Provider + Reason for Visit * Reason Onset Date Comments Medication Request 04/26/2023 Encounter Details Date Type Department Care Team (Late st Contact Info) Description 04/26/2023 Telephone [facility] Medical Group Family & Internal Medicine [facility] [address] [place] [address] Luiz Smalls DO [address] [place] [address] Medication Request Social History Tobacco Use Types Packs/Day Years Used Date Smoking Tobacco: Never Passive Smoke Exposure: Never Smokeless Tobacco: Never Alcohol Use Standard Drinks/Week Comments Never 0 (1 standard drink = 0.6 oz pur e alcohol) Sex and Gender Information Value Date Recorded Sex Assigned at Not on file Legal Sex Male 10:29 AM BUTCHER CHICKEN AND FISH Gender Identity Not on file Sexual Orientation Not on file Occupation Industry Job Start Date Job End Date Not on file Not on file Not on file Not on file documented as of this encounter Progress Notes * DO Carson Mcdonald 04/26/2023 4:47 PM CDTAddended by: LUIZ SMALLS on: 04/26/2023 04:47 PM Modules accepted: Orders * Jennifer Souza MA - 04/26/2023 2:07 PM CDTAddended by: JENNIFER SOUZA on: 04/26/2023 02:07 PM Modules accepted: Orders * Jennifer Souza MA - 04/26/2023 2:06 PM CDT Refill request received from Pharmacy Last visit with LUIZ SMALLS in FAMILY PRACTICE was on: 12/22/2022 in [facility] Future Appointments Date Time Provider Department Center 06/28/2023 7:20 AM [facility] LAB MGMRVL [facility] 07/05/2023 3:20 PM Luiz Smalls DO MGFMMRVL [facility]/pharmacy [address] [place] [address] Current Outpatient Medications: cetirizine-pseudoephedrine ER (ZYRTEC-D) 5mg-120mg 12 hr tablet, Take 1 tablet by mouth 2 (two) times daily., Disp: , Rfl: Cholecalciferol 50 MCG (1999 UT) Tab, , Disp: , Rfl: Coenzyme Q10 (CO Q 10 OR), Take by mouth., Disp: , Rfl: famotidine (PEPCID) 20 MG tablet, Take 1 tablet (20 mg total) by mouth 2 (two) times daily., Disp: 60 tablet, Rfl: 2 losartan (COZAAR) 50 MG tablet, Take 1 tablet (50 mg total) by mouth daily., Disp: , Rfl: magnesium oxide (MAG-OX) 250 MG tablet, Take 1 tablet (250 mg total) by mouth daily., Disp: , Rfl: montelukast (SINGULAIR) 10 MG tablet, Take 1 tablet (10 mg total) by mouth., Disp: , Rfl: Multiple Vitamin (MULTIVITAMIN ADULT OR), , Disp: , Rfl: simvastatin (ZOCOR) 40 MG tablet, TAKE 1 TABLET BY MOUTH LATE IN THE DAY., Disp: , Rfl: tamsulosin (FLOMAX) 0.4 MG Cap, Take 1 capsule (0.4 mg total) by mouth nightly at bedtime., Disp: ,Rfl: Turmeric (QC TUMERIC COMPLEX OR), , Disp: , Rfl: vitamin C (ASCORBIC ACID) 1000 MG tablet, Take 1 tablet (1,000 mg total) by mouth daily., Disp: , Rfl: * Jessica Farr - 04/26/2023 11:14 AM CDT Refill request received from Patient Medication: cetirizine-pseudoephedrine ER (ZYRTEC-D) 5mg-120mg 12 hr tablet Pharmacy: [facility] in [address] Last visit with LUIZ SMALLS in FAMILY PRACTICE was on: 12/22/2022 in [facility] Future Appointments Date Time Provider Department Center 06/28/2023 7:20 AM [facility] LAB MUSCOGEEMRVL [facility] 07/05/2023 3:20 PM Luiz Smalls DO FMMRVTejas [facility] Pt asking for notification when sent off. documented in this encounter Plan of Treatment Upcoming Encounters Date Type Department Care Team (Late st Contact Info) Description 08/22/2024 8:00 AM BUTCHER CHICKEN AND FISH Laboratory Only [facility] Medical Group Family & Internal Medicine - [place] [address] [place] [address] Luiz Smalls DO [address] [place] [address] 09/08/2024 2:30 PM BUTCHER CHICKEN AND FISH Appointment [facility] [address] [place] [address] Guido Rider DO [address] [facility] [address] [place] [address] 10/05/2024 3:00 PM BUTCHER CHICKEN AND FISH Appointment [facility] Respiratory Therapy [place] [address] Guido Rider DO [address] [facility] [address] [place] [address] 10/13/2024 10:30 AM BUTCHER CHICKEN AND FISH Office Visit [facility] Medical [facility] Multispecialty Care - [facility] 3 [facility] [address] [place] [address] Guido Rider DO [address] [facility] [address] [place] [address] 01/08/2025 2:20 PM CDT Office Visit [facility] Medical Group Family & Internal Medicine [address] [address] Luiz Smalls DO [address] [place] [address] documented as of this encounter Visit Diagnoses Diagnosis Allergic rhinitis, unspecified seasonality, unspecified trigger- Primary documented in this encounter Care Teams Customer Relations Consultant Relationship Specialty Start Date End Date Luiz Smalls DO [address] [place] [address] PCP - General 12/19/22 documented as of this encounter
--- OUTSIDE RECORDS SUMMARY | 2024-08-19 06:38 | XMS_ITS | Encounter Summary ---
Author Organization [facility] Address [address] [place] [address]. [place] [address] [place] [address] Care Team Providers Care Galvanizer Zinc Name Role Phone Inderjit Narayan DO Primary Care Provider + Encounter Details Date Type Department Care Team (Latest Contact Info) Description 03/02/2023 Scan HEALTH INFO SRVCS Scanned, Doc Med Group Social History Tobacco Use Types Packs/Day Years Used Date Smoking Tobacco: Never Passive Smoke Exposure: Never Smokeless Tobacco: Never Alcohol Use Standard Drinks/Week Comments Never 0 (1 standard drink = 0.6 oz pur e alcohol) Sex and Gender Information Value Date Recorded Sex Assigned at Not on file Legal Sex Male 10:29 AM BILLING CLINICIAN Gender Identity Not on file Sexual Orientation Not on file Occupation Industry Job Start Date Job End Date Not on file Not on file Not on file Not on file documented as of this encounter Plan of Treatment Upcoming Encounters Date Type Department Care Team (Late st Contact Info) Description 08/22/2024 8:00 AM BILLING CLINICIAN Laboratory Only [facility] Medical Group Family & Internal Medicine - [address] [address] Inderjit Narayan DO [address] [place] [address] 09/08/2024 2:30 PM BILLING CLINICIAN Appointment [facility] [address] [place] [address] Guido Rider, DO 3 [facility] [address] [place] [address] 10/05/2024 3:00 PM BILLING CLINICIAN Appointment [facility] Respiratory Therapy [place] [address] Guido Rider, DO 3 [facility] [address] [place] [address] 10/13/2024 10:30 AM BILLING CLINICIAN Office Visit [facility] Multispecialty Care - [facility] [address] [facility] [address] [place] [address] Guido Rider, DO [facility] [address] [place] [address] 01/08/2025 2:20 PM CDT Office Visit [facility] Medical [address] [facility] Family & Internal Medicine [address] [address] Inderjit Narayan DO [address] [place] [address] documented as of this encounter Visit Diagnoses Not on filedocumented in this encounter Care Teams Galvanizer Zinc Relationship Specialty Start Date End Date Inderjit Narayan DO [address] [place] [address] PCP - General 12/19/22 documented as of this encounter
--- OUTSIDE RECORDS SUMMARY | 2024-08-19 06:38 | XMS_ITS | Encounter Summary ---
Author Organization [facility] Address [address] [place] [address]. [place] [address] [place] [address] Care Team Providers Care Circular Shear Operator Name Role Phone Inderjit Narayan DO Primary Care Provider + Encounter Details Date Type Department Care Team (Latest Contact Info) Description 12/22/2022 Travel Social History Tobacco Use Types Packs/Day Years Used Date Smoking Tobacco: Never Passive Smoke Exposure: Never Smokeless Tobacco: Never Alcohol Use Standard Drinks/Week Comments Never 0 (1 standard drink = 0.6 oz pur e alcohol) Sex and Gender Information Value Date Recorded Sex Assigned at Not on file Legal Sex Male 10:29 AM EXECUTIVE BUSINESS COACH Gender Identity Not on file Sexual Orientation Not on file Occupation Industry Job Start Date Job End Date Not on file Not on file Not on file Not on file COVID-19 Exposure Response Date Recorded In the last 10 days, have yo u been in contact with someone who was confirmed or suspected to have Coronavirus/COVID-19? No / Unsure 12/22/2022 12:35 PM CDT documented as of this encounter Plan of Treatment Upcoming Encounters Date Type Department Care Team (Late st Contact Info) Description 08/22/2024 8:00 AM EXECUTIVE BUSINESS COACH Laboratory Only [facility] Medical Group Family & Internal Medicine - [place] [address] [place] [phone] Inderjit Narayan DO [facility] [place] [address] 09/08/2024 2:30 PM EXECUTIVE BUSINESS COACH Appointment [facility] [address] [place] [address] Guido Rider, DO 3 [facility] [address] [place] [address] 10/05/2024 3:00 PM EXECUTIVE BUSINESS COACH Appointment [facility] Respiratory [place] [address] Guido Rider DO 3 [facility] [address] [place] [address] 10/13/2024 10:30 AM EXECUTIVE BUSINESS COACH Office Visit [facility] Medical [facility] Multispecialty Care - [facility] 3 [facility] [address] [place] [address] Guido Rider, 3 [facility] [address] [place] [address] 01/08/2025 2:20 PM CDT Office Visit [facility] Group Family & Internal Medicine [facility] [address] [place] [address] Inderjit Narayan DO [address] [place] [address] documented as of this encounter Visit Diagnoses Not on filedocumented in this encounter Care Teams Circular Shear Operator Relationship Specialty Start Date End Date Inderjit Narayan DO [address] [place] [address] PCP - General 12/19/22 documented as of this encounter
--- OUTSIDE RECORDS SUMMARY | 2024-08-19 06:38 | XMS_ITS | Encounter Summary ---
Author Organization [facility] Address [address] [place] [address]. [place] [address] [place] [address] Care Team Providers Care Seo Team Lead Name Role Phone Inderjit Narayan DO Primary Care Provider + Reason for Visit * Reason Onset Date Comments Record Request 07/14/2023 Encounter Details Date Type Department Care Team (Late st Contact Info) Description 07/14/2023 Telephone [facility] Medical Group Family & Internal Medicine [facility] [address] [place] [address] Inderjit Narayan DO [address] [place] [address] Record Request Social History Tobacco Use Types Packs/Day [...] on file Legal Sex Male 10:29 AM ASSISTANT SURVEYOR Gender Identity Not on file Sexual Orientation Not on file Occupation Industry Job Start Date Job End Date Not on file Not on file Not on file Not on file documented as of this encounter Progress Notes * Joann Corea MA - 07/14/2023 3:23 PM CST Received and sent to PCP STANT SURVEYOR * Joann Corea MA - 07/14/2023 8:25 AM CST I have faxed [facility] for ER records from 06/18/23 STANT SURVEYOR documented in this encounter Plan of Treatment Upcoming Encounters Date Type Department Care Team (Late st Contact Info) Description 08/22/2024 8:00 AM ASSISTANT SURVEYOR Laboratory Only [facility] Family & Internal Medicine - [address] [address] Inderjit Narayan, [address] [place] [address] 09/08/2024 2:30 PM ASSISTANT SURVEYOR Appointment [facility] [address] [place] [address] Guido Rider DO 3 [facility] [address] [place] [address] 10/05/2024 3:00 PM ASSISTANT SURVEYOR Appointment [facility] [place] [address] Guido Rider DO 3 [facility] [address] [place] [address] 10/13/2024 10:30 AM ASSISTANT SURVEYOR Office Visit [facility] Multispecialty Care - [facility] 3 [facility] [address] [place] [address] Guido Rider DO 3 [facility] [address] [place] [address] 01/08/2025 2:20 PM CDT Office Visit [facility] Medical Group Family & Internal Medicine - [address] [address] Inderjit Narayan DO [address] [place] [address] documented as of this encounter Visit Diagnoses Not on filedocumented in this encounter Care Teams Seo Team Lead Relationship Specialty Start Date End Date Inderjit Narayan DO [address] [place] [address] PCP - General 12/19/22 documented as of this encounter
--- OUTSIDE RECORDS SUMMARY | 2024-08-19 06:38 | XMS_ITS | Encounter Summary ---
Author Organization [facility] Address [address] [place] [address]. [place] [address] [place] [address] Care Team Providers Care Integrated Logistics Support Manager Name Role Phone Inderjit Narayan DO Primary Care Provider + Encounter Details Date Type Department Care Team (Latest Contact Info) Description 07/22/2023 Travel Social History Tobacco Use Types Packs/Day [...] on file Legal Sex Male 10:29 AM WOOD CREW SUPERVISOR Gender Identity Not on file Sexual Orientation Not on file Occupation Industry Job Start Date Job End Date Not on file Not on file Not on file Not on file documented as of this encounter Plan of Treatment Upcoming Encounters Date Type Department Care Team (Late st Contact Info) Description 08/22/2024 8:00 AM WOOD CREW SUPERVISOR Laboratory Only [facility] Medical Group Family & Internal Medicine - [place] [address] [place] [address] Inderjit Narayan DO [address] [place] [address] 09/08/2024 2:30 PM WOOD CREW SUPERVISOR Appointment [facility] [address] [place] [address] Guido Rider, DO 3 [facility] [address] [place] [address] 10/05/2024 3:00 PM WOOD CREW SUPERVISOR Appointment [facility] Respiratory Therapy [facility] [place] [address] Guido Rider, DO 3 [facility] [address] [place] [address] 10/13/2024 10:30 AM WOOD CREW SUPERVISOR Office Visit [facility] Multispecialty Care - [facility] 3 [facility] [address] [place] [address] Guido Rider, DO 3 [facility] [address] [place] [address] 01/08/2025 2:20 PM CDT Office Visit [facility] Medical [facility] Family & Internal Medicine [address] [address] Inderjit Narayan DO [address] [place] [address] documented as of this encounter Visit Diagnoses Not on filedocumented in this encounter Care Teams Integrated Logistics Support Manager Relationship Specialty Start Date End Date Inderjit Narayan DO [address] [place] [address] PCP - General 12/19/22 documented as of this encounter
--- OUTSIDE RECORDS SUMMARY | 2024-08-19 06:38 | XMS_ITS | Encounter Summary ---
Author Organization [facility] Address [address] [place] [address]. [place] [address] [place] [address] Care Team Providers Care Patient Accounts Clerk Name Role Phone Inderjit Narayan DO Primary Care Provider + Encounter Details Date Type Department Care Team (Latest Contact Info) Description 09/24/2023 Scan HEALTH INFO SRVCS Scanned, Doc Med [...] on file Legal Sex Male 10:29 AM SHEET METAL FORMER Gender Identity Not on file Sexual Orientation Not on file Occupation Industry Job Start Date Job End Date Not on file Not on file Not on file Not on file documented as of this encounter Plan of Treatment Upcoming Encounters Date Type Department Care Team (Late st Contact Info) Description 08/22/2024 8:00 AM SHEET METAL FORMER Laboratory Only [facility] Medical Group Family & Internal Medicine - [address] [address] Inderjit Narayan DO [facility] [place] [address] 09/08/2024 2:30 PM SHEET METAL FORMER Appointment [facility] [address] [place] [address] Guido Rider, DO 3 [facility] [address] [place] [address] 10/05/2024 3:00 PM SHEET METAL FORMER Appointment [facility] [place] [address] Guido Rider DO 3 [facility] [address] [place] [address] 10/13/2024 10:30 AM SHEET METAL FORMER Office Visit [facility] Multispecialty Care - [facility] 3 [facility] [address] [place] [address] Guido Rider, DO 3 [facility] [address] [place] [address] 01/08/2025 2:20 PM CDT Office Visit [facility] Medical [facility] Family & Internal Medicine [address] [address] Inderjit Narayan DO [address] [place] [address] documented as of this encounter Visit Diagnoses Not on filedocumented in this encounter Care Teams Patient Accounts Clerk Relationship Specialty Start Date End Date Inderjit Narayan DO [address] [place] [address] PCP - General 12/19/22 documented as of this encounter
--- OUTSIDE RECORDS SUMMARY | 2024-08-19 06:38 | XMS_ITS | Encounter Summary ---
Author Organization [facility] Address [address] [place] [address]. [place] [address] [place] [address] Care Team Providers Care Wafer Fabrication Technician Name Role Phone Inderjit Narayan DO Primary Care Provider + Reason for Visit * Reason Comments Lab Draw Patient presents for lab draw Encounter Details Date Type Department Care Team (Latest Contact Info) Description 07/19/2023 8:20 AM CREDIT VERIFICATION CLERK Allied Health/Nurse Visit [facility] Family Medicine - [place] [address] [place] [address] Inderjit Narayan DO [address] [place], [place] [phone] Lab Draw (Patient presents for lab draw) Social History Tobacco Use Types Packs/Day Years Used Date Smoking Tobacco: Never Passive Smoke Exposure: Never Smokeless Tobacco: Never Alcohol Use Standard Drinks/Week Comments Never 0 (1 standard drink = 0.6 oz pur e alcohol) PHQ-2 Answer Date Recorded Patient Health Questionnaire-2 Score 0 07/07/2023 Sex and Gender Information Value Date Recorded Sex Assigned at Not on file Legal Sex Male 10:29 AM CREDIT VERIFICATION CLERK Gender Identity Not on file Sexual Orientation Not on file Occupation Industry Job Start Date Job End Date Not on file Not on file Not on file Not on file documented as of this encounter Plan of Treatment Upcoming Encounters Date Type Department Care Team (Late st Contact Info) Description 08/22/2024 8:00 AM CREDIT VERIFICATION CLERK Laboratory Only [facility] Family & Internal Medicine - [place] [address] [place] [address] Inderjit Narayan, [address] [place] [address] 09/08/2024 2:30 PM CREDIT VERIFICATION CLERK Appointment [facility] [address] [place] [address] Guido Rider DO 3 [facility] [address] [place] [address] 10/05/2024 3:00 PM CREDIT VERIFICATION CLERK Appointment [facility] [place] [address] Guido Rider 3 [facility] [address] [place] [address] 10/13/2024 10:30 AM CREDIT VERIFICATION CLERK Office Visit [facility] Multispecialty Care - [facility] 3 [facility] [address] [place] [phone] Guido Rider 3 [facility] [address] [place] [address] 01/08/2025 2:20 PM CDT Office Visit [facility] Family & Internal Medicine - [place] [address] [place] [phone] Inderjit Narayan DO [address] [place] [address] documented as of this encounter Procedures Procedure Name Priority Date/Time Associated Diagnosis Comments TSH W/REFLEX Routine 07/19/2023 10:20 AM CREDIT VERIFICATION CLERK Essential hypertension, benign Pure hypercholesterolem ia Vitamin D deficiency Need for hepatitis C screening test Screening for prostate cancer Screening for endocrine, metabolic and immunity disorder Screening for lipid disorders HEMOGLOBIN, GLYCOSYLATED Routine 07/19/2023 10:20 AM CREDIT VERIFICATION CLERK Prediabetes PROSTATE SPECIFIC ANTIGEN,SCREENING Routine 07/19/2023 10:20 AM CREDIT VERIFICATION CLERK Essential hypertension, benign Pure hypercholesterolem ia Vitamin D deficiency Need for hepatitis C screening test Screening for prostate cancer Screening for endocrine, metabolic and immunity disorder Screening for lipid disorders COMPREHENSIVE METABOLIC PANEL Routine 07/19/2023 10:20 AM CREDIT VERIFICATION CLERK Essential hypertension, benign Pure hypercholesterolem ia Vitamin D deficiency Need for hepatitis C screening test Screening for prostate cancer Screening for endocrine, metabolic and immunity disorder Screening for lipid disorders LIPID PANEL Routine 07/19/2023 10:20 AM CREDIT VERIFICATION CLERK Essential hypertension, benign Pure hypercholesterolem ia Vitamin D deficiency Need for hepatitis C screening test Screening for prostate cancer Screening for endocrine, metabolic and immunity disorder Screening for lipid disorders HEPATITIS C ANTIBODY Routine 07/19/2023 10:20 AM CREDIT VERIFICATION CLERK Essential hypertension, benign Pure hypercholesterolem ia Vitamin D deficiency Need for hepatitis C screening test Screening for prostate cancer Screening for endocrine, metabolic and immunity disorder Screening for lipid disorders CBC W/DIFF AUTOMATED Routine 07/19/2023 10:20 AM CREDIT VERIFICATION CLERK Essential hypertension, benign Pure hypercholesterolem ia Vitamin D deficiency Need for hepatitis C screening test Screening for prostate cancer Screening for endocrine, metabolic and immunity disorder Screening for lipid disorders VITAMIN D, 25 OH Routine 07/19/2023 10:2 0 AM CREDIT VERIFICATION CLERK Essential hypertension, benign Pure hypercholesterolem ia Vitamin D deficiency Need for hepatitis C screening test Screening for prostate cancer Screening for endocrine, metabolic and immunity disorder Screening for lipid disorders CK (CPK) Routine 07/19/2023 10:20 AM CREDIT VERIFICATION CLERK Essential hypertension, benign Pure hypercholesterolem ia Vitamin D deficiency Need for hepatitis C screening test Screening for prostate cancer Screening for endocrine, metabolic and immunity disorder Screening for lipid disorders COLLECTION VENOUS BLOOD VENIPUNCTURE Routine 07/19/2023 8:31 AM CREDIT VERIFICATION CLERK Essential hypertension, benign documented in this encounter Results * (ABNORMAL) COMPREHENSIVE METABOLIC PANEL (07/19/2023 10:20 AM CREDIT VERIFICATION CLERK) [facility] SODIUM S/P/B 139 136 - 145 MMOL/L 07/19/2023 3:05 PM [facility] POTASSIUM S/P/B 4.8 3.5 - 5.1 MMOL/L 07/19/2023 3:05 PM [facility] CHLORIDE S/P/B 103 98 - 107 MMOL/L 07/19/2023 3:05 PM [facility] CO2 28.3 21 - 32 MMOL/L 07/19/2023 3:05 PM [facility] GLUCOSE 102(H) 70 - 99 MG/DL 07/19/2023 3:05 PM [facility] BUN 20(H) 7 - 18 MG/DL 07/19/2023 3:05 PM [facility] CREATININE S/P/B 1.06 0.70 - 1.30 MG/DL 07/19/2023 3:05 PM [facility] CALCIUM S/P/B 9.1 8.4 - 10.5 MG/DL 07/19/2023 3:05 PM [facility] BILIRUBIN TOTAL S/P/B 0.7 0.2 - 1.0 MG/DL 07/19/2023 3:05 PM [facility] ALKALINE PHOSPHATASE S/P/B 67 45 - 115 U/L 07/19/2023 3:05 PM [facility] AST 24 15 - 37 U/L 07/19/2023 3:05 PM [facility] ALT 60 16 - 63 U/L 07/19/2023 3:05 PM CREDIT VERIFICATION CLERK [facility] TOTAL PROTEIN S/P/B 6.9 6.4 - 8.2 G/DL 07/19/2023 3:05 PM [facility] ALBUMIN S/P/B 3.4 3.4 - 5.0 G/DL 07/19/2023 3:05 PM CREDIT VERIFICATION CLERK [facility] ANION GAP 7.7 5 - 15 MMOL/L 07/19/2023 3:05 PM CREDIT VERIFICATION CLERK [facility] Comment:REFERENCE RANGE NOT ESTABLISHED OSMOLALITY (CALC) 291 MOSM/KG 023 3:05 PM CREDIT VERIFICATION CLERK [facility] Comment:REFERENCE RANGE NOT ESTABLISHED GFR ESTIMATE 75(L) >90 ML/MIN/1. 73 M2 07/19/2023 3:[address] [facility] GFR NOTES GFR REFERENCE S: 07/19/2023 3:05 PM [facility] Comment: THE ESTIMATED GFR IS CALCULATED USING [...] <15 ml/min/1.73 m2 07/19/2023 10:2 0 AM CREDIT VERIFICATION CLERK us Inderjit Narayan DO LABORATORY Final Re sult [facility] [address] [place] [address], [place] [phone] * (ABNORMAL) CBC W/DIFF AUTOMATED (07/19/2023 10:20 AM CREDIT VERIFICATION CLERK) WBC 11.02(H) 4.00 - 10.80 x10'3/uL 07/19/2023 2:14 PM [facility] RBC 5.25 4.50 - 6.10 x10'6/uL 07/19/2023 2:14 PM [facility] HGB 15.9 13.0 - 18.0 G/DL 07/19/2023 2:14 PM [facility] HCT 48.7 37.0 - 52.0 % 07/19/2023 2:14 PM [facility] MCV 92.8 78.0 - 100.0 FL 07/19/2023 2:14 PM [facility] MCH 30.3 27.0 - 31.0 PG 07/19/2023 2:14 PM [facility] MCHC 32.6(L) 33.0 - 36.0 G/DL 07/19/2023 2:14 PM [facility] RDW 12.8 11.5 - 14.5 % 07/19/2023 2:14 PM [facility] PLT 221 150 - 350 x10'3/uL 07/19/2023 2:14 PM [facility] MPV 10.0 7.4 - 10.4 FL 07/19/2023 2:14 PM [facility] DIFFERENTIAL TYPE AUTOMATED DIFFERENTIAL 07/19/2023 2:14 PM [facility] NEUTROPHILS % 64.8 % 07/19/2023 2:14 PM [facility] LYMPHOCYTES % 23.1 % 07/19/2023 2:14 PM [facility] MONOCYTES % 8.6 % 07/19/2023 2:14 PM [facility] EOSINOPHILS % 2.3 % 07/19/2023 2:14 PM [facility] BASOPHILS % 0.7 % 07/19/2023 2:14 PM CREDIT VERIFICATION CLERK [facility] IMMATURE GRANS % 0.5 % 07/19/2023 2:14 PM CREDIT VERIFICATION CLERK [facility] ABS. NEUTROPHILS 7.14 1.60 - 8.30 x10'3/uL 07/19/2023 2:14 PM CREDIT VERIFICATION CLERK [facility] ABS. LYMPHOCYTES 2.55 0.80 - 4.70 x10'3/uL 07/19/2023 2:14 PM CREDIT VERIFICATION CLERK [facility] ABS. MONOCYTES 0.95 0.00 - 1.50 x10'3/uL 07/19/2023 2:14 PM CREDIT VERIFICATION CLERK [facility] ABS. EOSINOPHILS 0.25 0.00 - 0.40 x10'3/uL 07/19/2023 2:14 PM CREDIT VERIFICATION CLERK [facility] ABS. BASOPHILS 0.08 0.00 - 0.20 x10'3/uL 07/19/2023 2:14 PM CREDIT VERIFICATION CLERK [facility] ABS. IMMATURE GRANULOCYTES 0.05(H) 0.00 - 0.03 x10'3/uL 07/19/2023 2:14 PM CREDIT VERIFICATION CLERK [facility] 07/19/2023 10:2 0 AM CREDIT VERIFICATION CLERK Inderjit Narayan DO LABORATORY Final Re sult [facility] [address] [place] [address], * TSH W/REFLEX (07/19/2023 10:20 AM CREDIT VERIFICATION CLERK) TSH 1.461 0.358 - 3.740 uIU/ML 07/19/2023 3:05 PM CREDIT VERIFICATION CLERK [facility] 07/19/2023 10:2 0 AM CREDIT VERIFICATION CLERK Inderjit Narayan DO LABORATORY Final Re sult [facility] [address] [place] [address], * LIPID PANEL (07/19/2023 10:20 AM CREDIT VERIFICATION CLERK) CHOLESTEROL 151 <200 MG/DL 07/19/2023 3:05 PM CREDIT VERIFICATION CLERK [facility] TRIGLYCERIDES 105 <150 MG/DL 07/19/2023 3:05 PM CREDIT VERIFICATION CLERK [facility] HDL 64 >40 MG/DL 07/19/2023 3:05 PM CREDIT VERIFICATION CLERK [facility] LDL-C 66 <100 MG/DL 07/19/2023 3:05 PM CREDIT VERIFICATION CLERK [facility] VLDL CALCULATION 21 5 - 28 MG/DL 07/19/2023 3:05 PM [facility] CHOL/HDL RATIO 2.4 0.0 - 4.0 07/19/2023 3:05 PM CREDIT VERIFICATION CLERK [facility] LDL/HDL 1.0 0.41 - 2.13 07/19/2023 3:05 PM [facility] NON HDL CHOLESTEROL 87 <140 MG/DL 07/19/2023 3:05 PM [facility] 07/19/2023 10:2 0 AM CREDIT VERIFICATION CLERK Inderjit Narayan DO LABORATORY Final Re sult Performing Organization Address City/[facility]/ZIP Co de Phone Number [facility] [address] [place] [address], * VITAMIN D, 25 OH (07/19/2023 10:20 AM CREDIT VERIFICATION CLERK) VITAMIN D 25 HYDROXY TOTAL S/P/B 64.4 30 - 100 NG/ML 07/19/2023 3:05 PM CREDIT VERIFICATION CLERK [facility] Comment: ? DEFICIENT ??<20 ?INSUFFICIENT 20-30 ?SUFFICIENT 30-100 07/19/2023 10:2 0 AM CREDIT VERIFICATION CLERK Inderjit Narayan DO LABORATORY Final Re sult Performing Organization Address City/[facility] Co de Phone Number [facility] [address] [place] [address], [place] [phone] * HEPATITIS C ANTIBODY (07/19/2023 10:20 AM CREDIT VERIFICATION CLERK) Pathologist [facility] HEPATITIS C AB NON-REACTI VE NON-REACT ELDER 07/19/2023 6:22 PM CREDIT VERIFICATION CLERK [facility] Comment: ANTIBODIES TO HCV NOT DETECTED. DOES NOT EXCLUDE THE POSSIBILITY OF EXPOSURE TO HCV. 07/19/2023 10:2 0 AM CREDIT VERIFICATION CLERK Inderjit Narayan DO LABORATORY Final Re sult Performing Organization Address [facility] de Phone Number [facility] [address] [place] [address], [place] [phone] * CK (CPK) (07/19/2023 10:20 AM CREDIT VERIFICATION CLERK) CPK 47 39 - 308 U/L 07/19/2023 2:38 PM CREDIT VERIFICATION CLERK [facility] 07/19/2023 10:2 0 AM CREDIT VERIFICATION CLERK Inderjit Narayan DO LABORATORY Final Re sult Performing Organization Address [facility] Co de Phone Number [facility] [address] [place] [address], [place] [phone] * PROSTATE SPECIFIC ANTIGEN,SCREENING (07/19/2023 10:20 AM CREDIT VERIFICATION CLERK) PSA 0.42 <4.00 NG/ML 07/19/2023 3:06 PM CREDIT VERIFICATION CLERK [facility] Comment: ASSAY PERFORMED BY [employer] METHODOLOG[employer] USING [employer]EM[employer] DIMENSION REAGENT. PATIENT RESULTS DETERMINED BY ASSAYS FROM DIFFERENT MANUFACTURERS AND/OR BY DIFFERENT METHODS MAY NOT BE COMPARABLE. 07/19/2023 10:2 0 AM CREDIT VERIFICATION CLERK Inderjit Narayan DO LABORATORY Final Re sult Performing Organization Address [facility] Co de Phone Number [facility] [address] [place] [address], [place] [phone] * (ABNORMAL) HEMOGLOBIN, GLYCOSYLATED (07/19/2023 10:20 AM CREDIT VERIFICATION CLERK) HGB A1C 6.0 4.5 - 6.2 % 07/19/2023 2:36 PM CREDIT VERIFICATION CLERK [facility] ESTIMATED AVG GLUCOSE 126(H) 74 - 106 MG/DL 07/19/2023 2:36 PM CREDIT VERIFICATION CLERK [facility] 07/19/2023 10:2 0 AM CREDIT VERIFICATION CLERK Inderjit Narayan LABORATORY Final Re sult Performing Organization Address City/[facility] Co de Phone Number [facility] [address] [place] [address], [place] [phone] documented in this encounter Visit Diagnoses Diagnosis Essential hypertension, benign- Primary Prediabetes Other abnormal glucose Pure hypercholesterolemia Vitamin D deficiency Unspecified vitamin D deficiency Need for hepatitis C screening test Special screening examination for other specified viral diseases Screening for prostate cancer Special screening for malignant neoplasm of prostate Screening for endocrine, metabolic and immunity disorder Screening for lipid disorders documented in this encounter Care Teams Wafer Fabrication Technician Relationship Specialty Start Date End Date Inderjit Narayan DO [address] [place] [address] PCP - General 12/19/22 documented as of this encounter
--- OUTSIDE RECORDS SUMMARY | 2024-08-19 06:38 | XMS_ITS | Encounter Summary ---
Author Organization [facility] Address [address] [place] [address]. [place] [address] [place] [address] Care Team Providers Care Mutual Funds Agent Name Role Phone Luiz Smalls DO Primary Care Provider + Reason for Visit * Reason Onset Date Comments Medication Request 09/23/2023 Encounter Details Date Type Department Care Team (Late st Contact Info) Description 09/23/2023 Telephone [facility] Medical Group Family & Internal Medicine [facility] [address] [place] [address] Luiz Smalls DO [address] [place] [address] Medication Request Social History Tobacco [...] on file Legal Sex Male 10:29 AM CAREER INFORMATION SPECIALIST Gender Identity Not on file Sexual Orientation Not on file Occupation Industry Job Start Date Job End Date Not on file Not on file Not on file Not on file documented as of this encounter Progress Notes * Prachi Pulliam MA - 09/23/2023 3:08 PM CST Refill request received from Patient Last visit with LUIZ SMALLS in FAMILY PRACTICE was on: 07/[facility] Future Appointments Date Time Provider Department Center 01/24/2024 2:20 PM Luiz Smalls DO [id number] [facility]/pharmacy #[id number] [place], [place] - [address] [place] [id number] Current Outpatient Medications: cetirizine-pseudoephedrine ER (ZYRTEC-D) 5mg-120mg 12 hr tablet, Take 1 tablet by mouth 2 (two) times daily., Disp: 72 tablet, Rfl: 2 Cholecalciferol 50 MCG (1999) Tab, , Disp: , Rfl: Coenzyme Q10 (CO Q 10 OR), Take by mouth., Disp: , Rfl: famotidine (PEPCID) 20 MG tablet, Take 1 tablet (20 mg total) by mouth 2 (two) times daily., Disp: 60 tablet, Rfl: 2 losartan (COZAAR) 50 MG tablet, take 1 tablet by mouth every day, Disp: 90 tablet, Rfl: 0 magnesium oxide (MAG-OX) 250 MG tablet, Take 1 tablet (250 mg total) by mouth daily., Disp: , Rfl: montelukast (SINGULAIR) 10 MG tablet, take 1 tablet by mouth everyday at bedtime, Disp: 90 tablet, Rfl: 1 Multiple Vitamin (MULTIVITAMIN ADULT OR), , Disp: [...] total) by mouth daily., Disp: , Rfl: ER INFORMATION SPECIALIST * Jessica Farr - 09/23/2023 2:24 PM CST Refill request received from Patient Medication: montelukast (SINGULAIR) 10 MG tablet simvastatin (ZOCOR) 40 MG tablet Pt asking for 90 day supply for all medications. Pharmacy: [facility]/pharmacy #[id number] [place], [place] - [address] [place] [address] Last visit with LUIZ SMALLS in FAMILY PRACTICE was on: 07/22/2023 in [facility] Future Appointments Date Time Provider Department Center 01/24/2024 2:20 PM Luiz Smalls DO FMMRVL [facility] ER INFORMATION SPECIALIST documented in this encounter Plan of Treatment Upcoming Encounters Date Type Department Care Team (Late st Contact Info) Description 08/22/2024 8:00 AM CAREER INFORMATION SPECIALIST Laboratory Only [facility] Family & Internal Medicine - [place] [address] [place] [address] Luiz Smalls DO [address] [place] [address] 09/08/2024 2:30 PM CAREER INFORMATION SPECIALIST Appointment [facility] [address] [place] [address] Guido Rider DO 3 [facility] [address] [place] [address] 10/05/2024 3:00 PM CAREER INFORMATION SPECIALIST Appointment [facility] [place] [address] Guido Rider DO 3 [facility] [address] [place] [address] 10/13/2024 10:30 AM CAREER INFORMATION SPECIALIST Office Visit [facility] Multispecialty Care - [facility] [address] [facility] [address] [place] [address] Guido Rider DO 3 [facility] [address] [place] [address] 01/08/2025 2:20 PM CDT Office Visit [facility] Medical Group Family & Internal Medicine [facility] [address] [place] [address] Luiz Smalls DO [address] [place] [address] documented as of this encounter Visit Diagnoses Diagnosis Pure hypercholesterolemia- Primary Cough, unspecified documented in this encounter Care Teams Mutual Funds Agent Relationship Specialty Start Date End Date Luiz Smalls DO [address] [place] [address] PCP - General 12/19/22 documented as of this encounter
--- OUTSIDE RECORDS SUMMARY | 2024-08-19 06:38 | XMS_ITS | Encounter Summary ---
Author Organization [facility] Address [address] [place] [address]. [place] [address] [place] [address] Care Team Providers Care Early Childhood Worker Name Role Phone Inderjit Narayan DO Primary Care Provider + Encounter Details Date Type Department Care Team (Latest Contact Info) Description 08/21/2023 Scan HEALTH INFO SRVCS Scanned, Doc Med [...] on file Legal Sex Male 10:29 AM SEWING MACHINE REPAIRER Gender Identity Not on file Sexual Orientation Not on file Occupation Industry Job Start Date Job End Date Not on file Not on file Not on file Not on file documented as of this encounter Plan of Treatment Upcoming Encounters Date Type Department Care Team (Late st Contact Info) Description 08/22/2024 8:00 AM SEWING MACHINE REPAIRER Laboratory Only [facility] Medical Group Family & Internal Medicine - [address] [phone] Inderjit Narayan DO [facility] [place] [address] 09/08/2024 2:30 PM SEWING MACHINE REPAIRER Appointment [facility] [address] [place] [address] Guido Rider, DO 3 [facility] [place] [address] 10/05/2024 3:00 PM SEWING MACHINE REPAIRER Appointment [facility] [place] [address] Guido Rider DO [facility] [address] [place] [address] 10/13/2024 10:30 AM SEWING MACHINE REPAIRER Office Visit [facility] Multispecialty Care - [facility] 3 [facility] [address] [place] [address] Guido Rider, DO 3 [facility] [address] [place] [address] 01/08/2025 2:20 PM CDT Office Visit [facility] Medical [facility] Family & Internal Medicine [address] [address] Inderjit Narayan DO [address] [place] [address] documented as of this encounter Visit Diagnoses Not on filedocumented in this encounter Care Teams Early Childhood Worker Relationship Specialty Start Date End Date Inderjit Narayan DO [address] [place] [address] PCP - General 12/19/22 documented as of this encounter
--- OUTSIDE RECORDS SUMMARY | 2024-08-19 06:40 | XMS_ITS | Clinical Summary ---
Author Organization [employer] [facility] Address [address] [facility] [place] [address] Phone Care Team Providers Care Emergency Preparedness Coordinator Name Role Phone Unavailable Primary Care Provider Unavailabl e Allergies Active Allergy Reactions Criticality Noted Date Comments Methylprednisolone Rash,Other (See Comments) Low 07/12/2012 Sulfamethoxazole-Trimethoprim Rash Low 2009 Medications Medication Sig Dispensed Refills Start Date End Date Status UBIDECARENONE (CO Q-10 ORAL) Take by mouth. Active Cholecalciferol, Vitamin D3, (VITAMIN D3) 2,000 unit Capsule Take 1 Cap by mouth daily. 03/08/2015 Active OMEPRAZOLE ORAL Take 20 mg by mouth. Active sod bicarb-sod chlor-neti pot ([place] Saline Nasal Neti Rinse) packet with rinse deviceIndications:Acute sinusitis with symptoms greater than 10 days 1 Dose Pack by sinus irrigation route 2 times daily. 07/27/2022 Active simvastatin (ZOCOR) 40 mg tabletIndications:Pure hypercholesterolemia Take 1 Tablet (40 mg) by mouth late in the day. 90 Tablet 3 09/16/2022 Active losartan (COZAAR) 50 mg tablet Take 1 Tablet (50 mg) by mouth daily. 90 Tablet 3 09/24/2022 Active amoxicillin-clavulanate (AUGMENTIN) 875-125 mg tablet Take 1 Tablet by mouth every 12 hours. 28 Tablet 10/21/2022 Active Fluticasone Furoate (FLONASE SENSIMIST) 27.5 mcg/actuation Bath, Suspension Administer 2 Sprays in each nostril daily. 1 Gram 4 10/21/2022 Active cetirizine-pseudoephedrin e sr 12 hour (ZyrTEC-D) 5-120 mg tablet Take 1 Tablet by mouth 2 times daily. 72 Tablet 5 10/27/2022 Active montelukast (SINGULAIR) 10 mg tabletIndications:Cough TAKE 1 TABLET BY MOUTH EVERYDAY AT BEDTIME 90 Tablet 1 03/08/2023 Active Active Problems Problem Noted Date Diagnosed Date S/P arthroscopy of right shoulder 09/30/2018 S/P right rotator cuff repair 09/30/2018 Status post subacromial decompression 09/30/2018 Stasis dermatitis of both legs 03/18/2018 Prediabetes 11/10/2016 Vitamin D deficiency 12/19/2014 Colon adenoma 01/22/2014 AK (actinic keratosis) 05/26/2010 Allergic rhinitis 11/11/2009 Osteoarthritis 01/02/2009 Esophageal reflux Essential hypertension, benign Pure hypercholesterolemia Resolved Problems Problem Noted Date Diagnosed Date Resolved Date IFG (impaired fasting glucose) 12/14/2014 11/10/2016 Immunizations Name Administration Dates Next Due (ADACEL/BOOSTRIX)(10 YR UP) TDAP VACCINE, 0.5ML, IM 11/17/2018,08/09/2007 (PNEUMOVAX 23)(50 YRS UP) PN EUMOCOCCAL POLYSACCHARIDE (PPV23) 0.5 ML, IM 11/17/2018 (PREVNAR 13)(6 WKS UP) PNEUM OCOCCAL CONJUGATE (PCV13) 0.5 ML, IM 10/14/2017 (SPIKEVAX) (12 YRS UP PRIMAR Y SERIES) COVID-19 VACCINE - [id number]-1273(PF) 100 MCG/0.5 ML IM SUSP 10/18/2020,09/20/2020 INFLUENZA VACCINE QUADRIVALE NT ADJ 65 YR UP PF IM 04/25/2020 Influenza Seasonal Unspecifi ed Formulation IM 07/12/2021 Influenza Vaccine High Dose 65+ Yrs IM 9,05/12/2018,05/21/2017 Influenza Vaccine Quad Split 3+ Yrs Im 5 Family History Medical History Relation Name Comments Healthy Brother Heart Disease Father High Cholesterol Father Cancer Maternal Grandmother Colon Cancer Maternal Grandmother Heart Disease Mother Heart Failure Mother Healthy Sister Half-sister Asthma Neg Hx Bronchitis Neg Hx Diabetes Neg Hx Emphysema Neg Hx Glaucoma Neg Hx Hypertension Neg Hx Lung Cancer Neg Hx Macular Degen Neg Hx Mesothelioma Neg Hx Tuberculosis Neg Hx Relation Name Status Comments Brother Father Maternal Grandfather Maternal Grandmother Mother Sister Half-sister Alive Social History Tobacco Use Types Packs/Day Years Used Date Smoking Tobacco: Never Alcohol Use Standard Drinks/Week Comments Not Currently 0 (1 standard drink = 0.6 oz pur e alcohol) Financial Resource Strain Answer Date R ecorded How hard is it for you to pa y for the very basics like food, housing, medical care, and heating? Not hard at all 10/10/2021 Food Insecurity Answer Date Recorded In the past 12 months, have you worried that your food would run out before you had money to buy more? Never true 10/10/2021 In the past 12 months, did y ou run out of food and didn't have money to buy more? Never true 10/10/2021 Transportation Needs Answer Date Record ed In the past 12 months, has l ack of transportation kept you from medical appointments or from getting medications? No 10/10/2021 Lack of Transportation (Non-Medical) Not on file 10/10/2021 Feeling Safe Answer Date Recorded Are you in a relationship wi th someone who hurts you emotionally and/or physically? No 04/09/2023 Sex and Gender Information Value Date Recorded Sex Assigned at Not on file Gender Identity Not on file Sexual Orientation Not on file Last Filed Vital Signs Vital Sign Reading Time Taken Comments Blood Pressure 119/73 04/09/2023 10:14 AM CDT Pulse 70 04/09/2023 10:14 AM CDT Temperature 36.2 ??C (97.2 ??F) 04/09/2023 10:08 AM C DT Respiratory Rate 14 04/09/2023 10:08 AM CDT Oxygen Saturation 96% 04/09/2023 10:08 AM CDT Inhaled Oxygen Concentration - - Weight 92 kg (202 lb 12.8 oz) 04/09/2023 9:09 AM CDT Height 180.3 cm (5' 11 ) 04/09/2023 9:09 AM CDT Body Mass Index 28.28 04/09/2023 9:09 AM CDT Plan of Treatment Health Maintenance Due Date Last Done Comments FIT-DNA Q 3 years 1997 Flex Sig/CT Colonography Q 5 years 1997 ZOSTER VACCINE (1 of 2) 2002 FIT/FOBT Q 1 year 04/26/2020 04/26/2019, , 01/13/2013, Additional history exists INFLUENZA VACCINE (#1) 2024 , 05/15/2022, 07/12/2021, Additional history exists COVID-19 Vaccine (4 - 2023-2 5 season) 2024 06/13/2021, 10/18/2020, 09/20/2020 RSV VACCINE (60+ or ) (1 - 1-dose 75+ series) 2027 COLORECTAL SCREENING 04/09/2028 04/09/2023, 04/09/2023, 09/01/2019, Additional history exists Colorectal Cancer Screening 04/09/2028 DTAP/TDAP/TD VACCINES (3 - T d or Tdap) 11/17/2028 11/17/2018, 08/09/2007 PNEUMOCOCCAL VACCINE 65+ YEARS Completed 11/17/2018 , 10/14/2017 Medical Devices Implanted Type Area Offset Press Assistant Device Identifier Shelf Expiration Date Model / Serial / Lot [employer] Speedbridge W/ Biocmpst Swivelck [id number] - [id number] Implanted:Qty: 1 on 09/30/2018 by Nehemiah Castellano MD at [facility] [place] Right: Shoulder [employer] 08/08/2020 [id number] / / [id number] Procedures Procedure Name Priority Date/Time Associated Diagnosis Comments COLONOSCOPY REPORT 04/09/2023 10 :14 AM CDT OCCULT BLOOD IMMUNOASSAY, COLORECTAL SCREEN Routine 04/26/2019 9:19 PM CDT Screening for colon cancer from Last 3 Months or Most Recently Relevant to Health Maintenance Results * COLONOSCOPY REPORT (04/09/2023 10:14 AM CDT) Narrative Procedure Note Modesta Wise DO - 04/09/2023 10:14 AM CDT [facility] [place] [facility] Patient Name: Brendon Aldana Procedure Date: 04/09/2023 Date of : 1950 Age: 73 Attending MD: Modesta Wise MD, Procedure: Colonoscopy Indications: High risk colon cancer surveillance: Personal history of non-advanced adenoma, Last colonoscopy: August 2019 Providers: Modesta Wise MD Referring MD: Ciro Fernandez DO Medicines: Monitored Anesthesia Care Procedure: Informed consent was obtained for the procedure, including moderate sedation after risks were discussed. Based on the pre-procedure assessment, including review of the patient's medical history, medications, allergies, and review of systems, the patient was deemed to be an appropriate candidate for sedation. A timeout was performed. Continuous ECG monitoring, pulse oximetry, blood pressure monitoring, and direct observation were performed. The Colonoscope was introduced through the anus and advanced to the terminal ileum. The colonoscopy was performed without difficulty. The patient tolerated the procedure well. The quality of the bowel preparation was good. Anatomical landmarks were photographed. Estimated Blood Loss: Estimated blood loss was minimal. Findings: The perianal examination was normal. Two sessile polyps were found in the transverse colon. The polyps were 5 to 6 mm in size. These polyps were removed with a cold snare. Resection and retrieval were complete. Estimated blood loss was minimal. The terminal ileum appeared normal. Retroflexion in the right colon was performed. Diverticula were found in the sigmoid colon and descending colon. Non-bleeding hemorrhoids were found during retroflexion. Complications: No immediate complications. Impression: - Two 5 to 6 mm polyps in the transverse colon, removed with a cold snare. Resected and retrieved. - The examined portion of the ileum was normal. - Diverticulosis in the sigmoid colon and in the descending colon. - Non-bleeding hemorrhoids. Recommendation: - Await pathology results. - Repeat colonoscopy in 5 years for surveillance. - High fiber diet. Modesta Wise MD 04/09/2023 10:05:46 AM This report has been signed electronically. Number of Addenda: 0 Procedure Date: 04/09/2023 9:32:32 AM [id number] [address] Modesta Wise DO GI PROCEDURE ORDERA BLES * (ABNORMAL) OCCULT BLOOD IMMUNOASSAY, COLORECTAL SCREEN (04/26/2019 9:19 PM CDT) OCCULT BLOOD, STOOL Positive(A ) Negative 04/27/2019 11:28 PM CDT [facility] [employer] [facility] Stool STOOL SPECIMEN / Unknown Collection / Unknown 04/26/2019 9:19 PM CDT 04/27/2019 9:19 PM CDT Ciro Yeni Fernandez DO BODY FLUIDS AND STOO LS [facility] [employer] [facility] CLIA# [id number] [address] [place] [address] from Last 3 Months or Most Recently Relevant to Health Maintenance Advance Directives For more information, please contact: [phone] * Full Code (Latest Code Status on File) Date Activated Date Inactivated Comments 04/09/2023 9:01 AM 04/09/2023 12:48 PM * Full Code Date Activated Date Inactivated Comments 09/01/2019 7:34 AM 09/01/2019 11:45 AM * Full Code Date Activated Date Inactivated Comments 09/30/2018 9:49 AM 09/30/2018 3:39 PM * Full Code Date Activated Date Inactivated Comments 09/30/2018 8:14 AM 09/30/2018 9:49 AM * Full Code Date Activated Date Inactivated Comments 01/12/2014 8:06 AM 01/12/2014 12:39 PM
--- OUTSIDE RECORDS SUMMARY | 2024-08-19 06:40 | XMS_ITS | Encounter Summary ---
Author Organization [facility] Address [address] [place] [address] Care Team Providers Care Compressor Operator Adjuster Name Role Phone Unavailable Primary Care Provider Unavailabl e Encounter Details Date Type Department Care Team (Late st Contact Info) Description 05/09/2024 External Device Data [place] ABSTRACTION Provider, Abstract NO ADDRESS ON FILE Social History Tobacco Use Types Packs/Day Years [...]
--- OUTSIDE RECORDS SUMMARY | 2024-08-19 06:40 | XMS_ITS | Encounter Summary ---
Author Organization [facility] Address [address] [place] [address] Care Team Providers Care Compressor Battery Pellets Name Role Phone Unavailable Primary Care Provider Unavailabl e Encounter Details Date Type Department Care Team (Late st Contact Info) Description 02/08/2024 External Device Data STL ABSTRACTION Provider, Abstract [...]
--- OUTSIDE RECORDS SUMMARY | 2024-08-19 06:40 | XMS_ITS | Encounter Summary ---
Author Organization [facility] Address [address] [place] [address] Care Team Providers Care Electronic News Gathering Camera Person Name Role Phone Unavailable Primary Care Provider Unavailabl e Encounter Details Date Type Department Care Team (Late st Contact Info) Description 04/18/2024 External Device Data STL ABSTRACTION Provider, Abstract [...]
--- OUTSIDE RECORDS SUMMARY | 2024-08-19 06:40 | XMS_ITS | Encounter Summary ---
Author Organization [facility] Address [address] [place] [address] Care Team Providers Care Strategic Partnership Representative Name Role Phone Unavailable Primary Care Provider Unavailabl e Encounter Details Date Type Department Care Team (Late st Contact Info) Description 03/30/2024 External Device Data STL ABSTRACTION Provider, Abstract [...]
--- OUTSIDE RECORDS SUMMARY | 2024-08-19 06:40 | XMS_ITS | Encounter Summary ---
Author Organization [facility] Address [address] [place] [address] Care Team Providers Care Nuclear Medicine Supervisor Name Role Phone Unavailable Primary Care Provider [...]
--- OUTSIDE RECORDS SUMMARY | 2024-08-19 06:40 | XMS_ITS | Encounter Summary ---
Author Organization [facility] Address [address] [place] [address] Care Team Providers Care Vp Marketing Name Role Phone Unavailable Primary Care Provider [...]
--- OUTSIDE RECORDS SUMMARY | 2024-08-19 06:40 | XMS_ITS | Encounter Summary ---
Author Organization [facility] Address [address] [place] [address] Care Team Providers Care Set And Exhibit Designer Name Role Phone Unavailable Primary Care Provider Unavailabl e Encounter Details Date Type Department Care Team (Late st Contact Info) Description 02/15/2024 External Device Data STL ABSTRACTION Provider, Abstract [...]
--- OUTSIDE RECORDS SUMMARY | 2024-08-19 06:40 | XMS_ITS | Encounter Summary ---
Author Organization [facility] Address [address] [place] [address] Care Team Providers Care Agricultural Extension Agent Name Role Phone Unavailable Primary Care Provider Unavailabl e Encounter Details Date Type Department Care Team (Late st Contact Info) Description 03/14/2024 External Device Data STL ABSTRACTION Provider, Abstract [...]
--- OUTSIDE RECORDS SUMMARY | 2024-08-19 06:41 | XMS_ITS | Encounter Summary ---
Author Organization [facility] Address [address] [place] [address] Care Team Providers Care Grocery Sacker Name Role Phone Inderjit Narayan DO Primary Care Provider + Encounter Details Date Type Department Care Team (Late st Contact Info) Description 06/24/2023 External Device Data STL ABSTRACTION Provider, Abstract [...] on filedocumented in this encounter Care Teams Grocery Sacker Relationship Specialty Start Date End Date Inderjit Narayan DO [address] [place] [phone] PCP - General Family Practice 04/09/23 08/29/23 documented as of this encounter
--- OUTSIDE RECORDS SUMMARY | 2024-08-19 06:41 | XMS_ITS | Encounter Summary ---
Author Organization [facility] Address [address] [place] [address] Care Team Providers Care Candle Molder Hand Name Role Phone Unavailable Primary Care Provider Unavailabl e Reason for Visit * Reason Onset Date Comments Review CT scan 12/01/2022 Encounter Details Date Type Department Care Team (Late st Contact Info) Description 12/01/2022 Telephone [facility] EAR, NOSE AND THROAT [place] Francisco [address] [place] [address] [place] [address] [facility] [address] [place] [address] scan Social History Tobacco Use Types Packs/Day Years Used Date Smoking Tobacco: Never Alcohol Use Standard Drinks/Week Comments Not Asked 0 (1 standard drink = 0.6 oz [...] of Transportation (Non-Medical) Not on file 10/10/2021 Sex and Gender Information Value Date Recorded Sex Assigned at Not on file Gender Identity Not on file Sexual Orientation Not on file COVID-19 Exposure Response Date Recorded In the last 10 days, have malcolm u been in contact with someone who was confirmed or suspected to have Coronavirus/COVID-19? No / Unsure 11/26/2022 2:32 PM CDT documented as of this encounter Miscellaneous Notes * Telephone Encounter - Darlene Cordoba RN - 12/01/2022 3:53 PM CDT This RN told Lan that there is some inflammation and fluid in the sinus below the left eye. Lan mentioned that he is feeling better, so he is going to postpone the idea of surgery right now, and skip the antibiotic because he doesn't feel like he needs it. When asked to schedule a 4 week follow up, Lan deferred and said if he needs anything at this point, he will call the office back. documented in this encounter Plan of Treatment Not on file documented as of this encounter Visit Diagnoses Not on filedocumented in this encounter
--- OUTSIDE RECORDS SUMMARY | 2024-08-19 06:41 | XMS_ITS | Encounter Summary ---
Author Organization [facility] Address [address] [place] [address] Care Team Providers Care Behavioral Modification Assistant Name Role Phone Unavailable Primary Care Provider Unavailabl e Encounter Details Date Type Department Care Team (Late st Contact Info) Description 11/27/2022 Orders Only [facility] EAR, NOSE AND THROAT [address] [place] [address] [place] [id number] [place] [address] Social History Tobacco Use Types Packs/Day Years [...]
--- OUTSIDE RECORDS SUMMARY | 2024-08-19 06:41 | XMS_ITS | Encounter Summary ---
Author Organization [facility] Address [address] [place] [address] Care Team Providers Care Freelance Data Entry Name Role Phone Unavailable Primary Care Provider Unavailabl e Reason for Visit * Reason Onset Date Comments Sinus Pain 07/27/2022 Encounter Details Date Type Department Care Team (Late st Contact Info) Description 07/27/2022 Telephone [facility] Medicine - Bushra [address] [facility] [address] [place] [address] Ciro Fernandez, DO [address] [place] [address] Sinus Pain Social History Tobacco Use Types Packs/Day Years [...] suspected to have Coronavirus/COVID-19? No / Unsure 07/21/2022 12:41 PM CERTIFIED PROCEDURAL CODER documented as of this encounter Miscellaneous Notes * Telephone Encounter - Jennifer Long - 07/27/2022 9:18 AM CST PT IS ON FOR VV IFIED PROCEDURAL CODER * Telephone Encounter - Leslie Aldana - 07/27/2022 8:53 AM CST Upper Respiratory Symptoms (Congestion / Cough) Any of the following symptoms: Difficulty breathing? No Shortness of breath? No Wheezing? No Fever? no fever Date of onset of symptoms? Couple months Referral placed for ENT cant get in until October Status of symptoms? worsened Nasal drainage? Yes Color? Green Coughing? No Productive of sputum? No Color? If fever, what was the value? na Sore throat? No Remedies or OTC medications tried? Zyrtec D Not able to schedule appointment within the recommended timeframe. Caller has been advised that their Primary Care team will be contacting them regarding their clinical concern. Caller also advised to call back: in 48 hours if they have not received contact at any time if the condition worsens or they develop new symptoms they are concerned about. Agent notified patient/caller of the call back advice. Seen in office for this just asking if something can be sent in for this. Please advise The patient's preferred pharmacy is [id number] - [place], [place] - [address] . IFIED PROCEDURAL CODER documented in this encounter Plan of Treatment Not on file documented as of this encounter Visit Diagnoses Not on filedocumented in this encounter
--- OUTSIDE RECORDS SUMMARY | 2024-08-19 06:41 | XMS_ITS | Encounter Summary ---
Author Organization [facility] Address [address] [place] [address] Care Team Providers Care Platinum Smith Name Role Phone Unavailable Primary Care Provider Unavailabl e Reason for Visit * Reason Onset Date Comments [facility] Location Manager 01/31/2022 Encounter Details Date Type Department Care Team (Late st Contact Info) Description 01/31/2022 Telephone Site [facility] [id number] [place] [phone] Leslie Reece, RN [facility] Location Manager Social History Tobacco Use Types Packs/Day Years [...] suspected to have Coronavirus/COVID-19? No / Unsure 01/06/2022 11:04 AM CDT documented as of this encounter Miscellaneous Notes * Telephone Encounter - Leslie Reece RN - 01/31/2022 9:20 AM CDT [facility] Interaction Note: Service Line: [facility] Location Manager Chief Complaint: Covid + yesterday onset symptoms 4 days ago. Vital Signs: Temp 100.4 - without OTCs MASS is 3 Pt is taking medications that have known interactions. Assessment: a&Ox4 Denies chest pain, SOB, fevers greater than 102 denies n/v/d C/o congestion and chills/sweats Plan: Isolate for 5 days and if you are asymptomatic or your symptoms are resolving (without fever for 24 hours), follow that by 5 days of wearing a mask when around others to minimize the risk of infecting people you encounter. The following medications and supplements may help lessen the severity of your covid symptoms. For your fever - 1000mg Tylenol recommended [id number] (MAX 3000mg) If not contraindicated you may alternate with Ibuprofen 400mg [id number]. You may also use the following 1. Zinc 50mg daily 2. Vitamin C 500mg twice a day. 3. Vitamin D 2000iu daily. 4. 1 Tab B complex daily 5. Melatonin 3-6mg nightly. 6. Quercetin 250-500mg twice a day. 7. Low dose baby aspirin. You may use the mucinex OTC or mucinex DM if you do not have HTN. You may use flonase spray for your congestion. These medications are over the counter and you may use them as needed according to your symptoms. Does not meet criteria for paxlovid and pt is not requesting any medical intervention at this time. Discussed concerning signs/symptoms that would indicate need for repeat evaluation. If symptoms worsen patient voices understanding that he may need in person evaluation. Visit was completed by: Phone documented in this encounter Plan of Treatment Not on file documented as of this encounter Visit Diagnoses Not on filedocumented in this encounter
--- OUTSIDE RECORDS SUMMARY | 2024-08-19 06:41 | XMS_ITS | Encounter Summary ---
Author Organization [facility] Address [address] [facility] Attn: Epic Prelude ADT [place] [address] Care Team Providers Care Equal Opportunity Officer Name Role Phone Ciro Fernandez DO Primary Care Provider [phone] Encounter Details Date Type Department Care Team (Latest Contact Info) Description 01/01/2023 Travel Social History Tobacco Use Types Packs/Day [...] suspected to have Coronavirus/COVID-19? No / Unsure 01/01/2023 10:59 AM CDT documented as of this encounter Plan of Treatment Not on file documented as of this encounter Visit Diagnoses Not on filedocumented in this encounter Care Teams Equal Opportunity Officer Relationship Specialty Start Date End Date Ciro Fernandez DO PCP - General Family Practice 01/01/23 04/08/23 documented as of this encounter
--- OUTSIDE RECORDS SUMMARY | 2024-08-19 06:41 | XMS_ITS | Encounter Summary ---
Author Organization [facility] Address [address] [facility] Attn: Epic Prelude ADT [place] [address] Care Team Providers Care Photographic Engineer Name Role Phone Unavailable Primary Care Provider Unavailabl e Encounter Details Date Type Department Care Team (Latest Contact Info) Description 11/24/2022 Travel Social History Tobacco Use Types Packs/Day [...] suspected to have Coronavirus/COVID-19? No / Unsure 11/24/2022 1:39 PM CDT documented as of this encounter Plan of Treatment Not on file documented as of this encounter Visit Diagnoses Not on filedocumented in this encounter
--- OUTSIDE RECORDS SUMMARY | 2024-08-19 06:41 | XMS_ITS | Encounter Summary ---
Author Organization [facility] Address [address] [place] [address] Care Team Providers Care Childbirth And Infant Care Teacher Name Role Phone Unavailable Primary Care Provider Unavailabl e Reason for Visit * Reason Onset Date Comments Medication Refill 03/28/2022 Encounter Details Date Type Department Care Team (Late st Contact Info) Description 03/28/2022 Refill [facility] Family Medicine - Bushra Yuan [address] [place] [address] Ciro Fernandez, DO [address] [place] [address] Social History Tobacco Use Types Packs/Day Years [...]
--- OUTSIDE RECORDS SUMMARY | 2024-08-19 06:41 | XMS_ITS | Encounter Summary ---
Author Organization [facility] Address [address] [place] [address] Care Team Providers Care College Sports Coach Name Role Phone Unavailable Primary Care Provider Unavailabl e Encounter Details Date Type Department Care Team (Late st Contact Info) Description 11/24/2023 External Device Data ST[facility] ABSTRACTION Provider, Abstract [...]
--- OUTSIDE RECORDS SUMMARY | 2024-08-19 06:41 | XMS_ITS | Encounter Summary ---
Author Organization [facility] Address [address] [place] [address] Care Team Providers Care Caustic Mixer Name Role Phone Unavailable Primary Care Provider Unavailabl e Encounter Details Date Type Department Care Team (Late st Contact Info) Description 09/10/2023 External Device Data STL ABSTRACTION Provider, Abstract [...]
--- OUTSIDE RECORDS SUMMARY | 2024-08-19 06:41 | XMS_ITS | Encounter Summary ---
Author Organization [facility] Address [address] [facility] Attn: Epic Prelude ADT KAYE SCHMID [address] Care Team Providers Care Pan Reclaim Processor Name Role Phone Unavailable Primary Care Provider Unavailabl e Encounter Details Date Type Department Care Team (Latest Contact Info) Description 01/06/2022 Travel Social History Tobacco Use Types Packs/Day [...]
--- OUTSIDE RECORDS SUMMARY | 2024-08-19 06:41 | XMS_ITS | Encounter Summary ---
Author Organization [facility] Address [address] [facility] Attn: Epic Prelude ADT KAYE SCHMID [address] Care Team Providers Care Complex Director Name Role Phone Unavailable Primary Care Provider Unavailabl e Encounter Details Date Type Department Care Team (Latest Contact Info) Description 04/28/2022 Travel Social History Tobacco Use Types Packs/Day [...] suspected to have Coronavirus/COVID-19? No / Unsure 04/28/2022 8:46 AM CDT documented as of this encounter Plan of Treatment Not on file documented as of this encounter Visit Diagnoses Not on filedocumented in this encounter
--- OUTSIDE RECORDS SUMMARY | 2024-08-19 06:41 | XMS_ITS | Encounter Summary ---
Author Organization [facility] Address [address] [facility] Attn: Epic Prelude ADT KAYE SCHMID [address] Care Team Providers Care Metal Shaping Machine Operator Name Role Phone Unavailable Primary Care Provider Unavailabl e Encounter Details Date Type Department Care Team (Latest Contact Info) Description 01/02/2022 Travel Social History Tobacco Use Types Packs/Day [...] suspected to have Coronavirus/COVID-19? No / Unsure 01/02/2022 12:06 PM CDT documented as of this encounter Plan of Treatment Not on file documented as of this encounter Visit Diagnoses Not on filedocumented in this encounter
--- OUTSIDE RECORDS SUMMARY | 2024-08-19 06:41 | XMS_ITS | Encounter Summary ---
Author Organization [facility] Address [address] [place] [address] Care Team Providers Care Medical Communication Specialist Name Role Phone Unavailable Primary Care Provider Unavailabl e Encounter Details Date Type Department Care Team (Late st Contact Info) Description 10/10/2021 Abstract [facility] Medicine - [facility] Abundio Yuan [address] [place] [address] Ciro Fernandez, DO [address] [facility] [address] [place] [address] Social History Tobacco Use Types [...] Exposure Response Date Recorded In the last month, have you been in contact with someone who was confirmed or suspected to have Coronavirus / COVID-19? 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
--- OUTSIDE RECORDS SUMMARY | 2024-08-19 06:41 | XMS_ITS | Encounter Summary ---
Author Organization [facility] Address [address] [place] [address] Care Team Providers Care Scientist Engineer Name Role Phone Unavailable Primary Care Provider Unavailabl e Reason for Visit * Reason Onset Date Comments Results 04/27/2022 labs Encounter Details Date Type Department Care Team (Late st Contact Info) Description 04/27/2022 Telephone [facility] Medicine - Bushra Yuan [address] [facility] Abund[address] [place] [address] Ciro Fernandez, DO [address] [facility] [address] [place] [address] Results (labs) Social History Tobacco Use Types Packs/Day Years [...] encounter Miscellaneous Notes * Telephone Encounter - Marine Barrett - 04/27/2022 4:02 PM CDT Pt informed, he was driving, he will call back to schedule * Telephone Encounter - Kay Jesus CMA - 04/27/2022 3:31 PM CDT ----- Message from Samantha Vargas PA-C sent at 04/27/2022 2:41 PM CDT ----- Your laboratory studies have been received, please return to office for a follow up examination. Please follow up with myself or Dr. Fernandez. documented in this encounter Plan of Treatment Not on file documented as of this encounter Visit Diagnoses Not on filedocumented in this encounter
--- OUTSIDE RECORDS SUMMARY | 2024-08-19 06:41 | XMS_ITS | Encounter Summary ---
Author Organization [facility] Address [address] [place] [address] Care Team Providers Care Geology Technician Name Role Phone Unavailable Primary Care Provider Unavailabl e Reason for Visit * Reason Comments Prediabetes F/u labs Encounter Details Date Type Department Care Team (Latest Contact Info) Description 05/15/2022 1:30 PM CDT Office Visit [facility] - [facility] Abundio Yuan [address] [place] [address] Ciro Fernandez, DO [address] [facility] [address] [place] [address] Pure hypercholesterolemia (Primary Dx); Essential hypertension, benign; Dysuria; Urinary urgency; Refused influenza vaccine; Gastroesophageal reflux disease, unspecified whether esophagitis present Social History Tobacco Use Types Packs/Day Years [...] suspected to have Coronavirus/COVID-19? No / Unsure 05/15/2022 1:09 PM CDT documented as of this encounter Last Filed Vital Signs Vital Sign Reading Time Taken Comments Blood Pressure 122/78 05/15/2022 1:09 PM CDT Pulse 74 05/15/2022 1:09 PM CDT Temperature 36.4 ??C (97.6 ??F) 05/15/2022 1:09 PM CD T Respiratory Rate - - Oxygen Saturation - - Inhaled Oxygen Concentration - - Weight 92.1 kg (203 lb) 05/15/2022 1:09 PM CDT Height 180.3 cm (5' 11 ) 05/15/2022 1:09 PM CDT Body Mass Index 28.31 05/15/2022 1:09 PM CDT documented in this encounter Progress Notes * Ciro Fernandez, - 05/15/2022 2:05 PM CDT SUBJECTIVE: Brendon Aldana is a 72 y.o. male here to discuss medical issues including hypertension and hyperlipidemia. He has had some discomfort with urination, urinary urgency and feeling like he is not able to fullyempty his bladder for the last few weeks. Denies any hematuria. PSA level is normal. Kidney function is normal. Hypertension: Current medication(s) reviewed. Taking and tolerating medications well. Blood pressures at home/stores/firehouse are running same has at the office. Hypertensive diet compliance: yes Low Sodium Hypercholesterolemia: Current medication(s) reviewed. Taking and tolerating medications well. Cholesterol diet compliance: yes Exercise compliance: yes GERD: The patient complains of intermittent heartburn at today's visit. Described fullness, belching, burning after heavier meals, especially if lying down shortly after eating. No dysphagia. Frequency of symptoms: intermittent. Patient has had previous treatment which has been helpful States the symptoms are stable. Patient denies side effects of the medications used Past Medical/Surgical/Social/Family History reviewed as well as Allergies and Medications. ROS: Ophthalmic ROS: negative for visual changes. Respiratory ROS: negative for cough, shortness of breath, or wheezing Cardiovascular ROS: negative for chest pain, heart palpitations or dyspnea on exertion Gastrointestinal ROS: negative for abdominal pain, change in bowel habits, or black or bloody stools Musculoskeletal ROS: negative for unusual joint or muscle symptoms Neurological ROS: negative for unusual headaches OBJECTIVE: BP 122/78 Pulse 74 Temp 97.6 ??F (36.4 ??C) (Temporal) Ht 5' 11 (1.803 m) Wt 92.1 kg (203 lb) BMI 28.31 kg/m?? Appearance: alert, well appearing, and in no distress. Skin: No unusual rashes noted Eyes: normal, normal vessels HEENT: Neck supple. No adenopathy or masses in the neck or supraclavicular regions. Thyroid not enlarged, no nodules detected. CV: heart sounds: normal rate, regular rhythm, normal S1, S2, no murmurs. No carotid bruits Chest:Chest is clear, no wheezing or crackles. Normal symmetric air entry throughout both lung dsouza. Abdomen: Abdomen is soft without tenderness, distention, guarding, mass, rebound or organomegaly. Bowel sounds are normal. Extremities: Peripheral pulses normal, no lower leg edema. Psych: Alaina Olivas was seen today for hypertension. Diagnoses and all orders for this visit: Pure hypercholesterolemia - LIPID PANEL; Future - COMPREHENSIVE METABOLIC PANEL; Future Zocor 40 mg Essential hypertension, benign - LIPID PANEL; Future - COMPREHENSIVE METABOLIC PANEL; Future Benicar Gastroesophageal reflux disease, unspecified whether esophagitis present Prilosec Dysuria - URINE CULTURE; Future - POC URINALYSIS DIPSTICK AUTOMATED - URINE CULTURE Urinary urgency - URINE CULTURE; Future - POC URINALYSIS DIPSTICK AUTOMATED - URINE CULTURE Consider prostatitis medication if still symptoms. Follow-up with labs in 6 months Discussed Risks, Benefits and Alternatives of the current treatment regimen. Check blood pressure often and report Highs and Lows. The patient is asked to make an attempt to improve diet and exercise patterns to aid in medical management of this problem. * Brittney Allen - 05/15/2022 1:30 PM CDT Conditions on Problem List needing addressed this calendar year: ADDRESS COMPLEX DIAGNOSIS VIA STORYBOARD, EG, MY PLAN OR FOLDER Questions on this review? Please contact Brittney Diallo Risk Coding HCC accuracy review. * Shani Jo - 05/15/2022 1:16 PM CDT Seasonal Influenza Vaccine Refused After discussion of risks and benefits of vaccination for seasonal influenza, he has refused immunization at this time. TOBACCO COUNSELING He is not a tobacco user. Positive: PHQ-2 score >= 3 or PHQ-9 score >= 9 PHQ-2 Total: 0 (01/06/2022 11:00 AM) PHQ-9 Total: 0 (01/06/2022 11:00 AM) DEPRESSION PLAN OF CARE His depression screen was negative. Normal BMI Range: 18 & older: > or = 18.5 and < 25 Body mass index is 28.31 kg/m??. Abnormal high BMI: Patient counseled on lifestyle modifications including weight loss and daily exercise. FALL RISK He has had no falls in the past year. documented in this encounter Plan of Treatment Not on file documented as of this encounter Procedures Procedure Name Priority Date/Time Associated Diagnosis Comments POC URINALYSIS DIPSTICK AUTOMATED Routine 05/15/2022 1:46 PM CDT Dysuria Urinary urgency URINE CULTURE Routine 05/15/2022 1:39 PM CDT Dysuria Urinary urgency documented in this encounter Results * POC URINALYSIS DIPSTICK AUTOMATED (05/15/2022 1:46 PM CDT) COLOR UA POC Yellow Pale to Dark Yellow [facility] CLARITY UA POC Clear Clear [facility] GLUCOSE UA POC Negative Negative, Normal [facility] BILIRUBIN UA POC Negative Negative [facility] KETONES UA POC Negative Negative [facility] SPECIFIC GRAVITY UA POC 1.020 1.000 - 1.030 [facility] BLOOD UA POC Negative Negative [facility] PH UA POC 6.0 5.0 - 8.0 [facility] PROTEIN UA POC Negative Negative [facility] UROBILINOGEN UA POC 0.2 <2.0 mg/dL [facility] NITRITE UA POC Negative Negative [facility] LEUKOCYTE ESTERASE UA POC Negative Negative [facility] KIT LOT NUMBER POC [id number] [facility] KIT EXP DATE POC 03-08-2023 [facility] Urine 05/15/2022 1:46 PM CDT Ciro Fernandez DO POINT OF CARE TESTIN G Performing Organization Address City/[facility]/ZIP Co de Phone Number [facility] CLIA# [id number] [address] [facility] [address] [place] [address] * URINE CULTURE (05/15/2022 1:39 PM CDT) URINE CULTURE SEE NOTE [facility] Comment: ??CULTURE, URINE, ROUTINE ?Micro Number: ?[id number] ??Test Status: ? Final ??Specimen Source: ?? Urine, clean catch ??Specimen Quality: ??Adequate ??Result: ?No Growth Test Performed at: [place] [address] [place] ??[id number] [facility] Urine URINE SPECIMEN OBTAINED BY CLEAN CATCH PROCEDURE / Unknown 05/15/2022 1:39 PM CDT 05/18/2022 11:52 PM CDT Ciro Fernandez DO MICROBIOLOGY - GENER AL ORDERABLES Performing Organization Address City/[facility]/ZIP Code Phone Number [facility] [phone] [place] [address] [place] [address] documented in this encounter Visit Diagnoses Diagnosis Pure hypercholesterolemia- Primary Essential hypertension, benign Dysuria Urinary urgency Urgency of urination Refused influenza vaccine Vaccination not carried out because of patient refusal Gastroesophageal reflux disease, unspecified whether esophagitis present documented in this encounter
--- OUTSIDE RECORDS SUMMARY | 2024-08-19 06:41 | XMS_ITS | Encounter Summary ---
Author Organization [employer] Address [address] [place] [address] Care Team Providers Care Security Police Name Role Phone Unavailable Primary Care Provider Unavailabl e Encounter Details Date Type Department Care Team (Late st Contact Info) Description 10/22/2023 External Device Data ST[place] ABSTRACTION Provider, Abstract [...]
--- OUTSIDE RECORDS SUMMARY | 2024-08-19 06:41 | XMS_ITS | Encounter Summary ---
Author Organization [facility] Address [address] [place] [address] Care Team Providers Care Senior Software Project Manager Name Role Phone Unavailable Primary Care Provider Unavailabl e Reason for Referral * CT Scan (Routine) - Closed Specialty Diagnoses / Procedures Referred By Contac t Referred To Contact Radiology Diagnoses Chronic pansinusitis Procedures CT SINUS STEALTH PROTOCOL Kam Cardona MD [address] [place] [address] [place] [id number] Referral ID Status Reason Start Date Expiration Date Visits Re quested Visits Authorized [id number] Closed 10/21/2022 11/21/2023 1 1 Reason for Visit * CT Scan (Routine) - Closed Specialty Diagnoses / Procedures Referred By Contac t Referred To Contact Radiology Diagnoses Chronic pansinusitis Procedures CT SINUS STEALTH PROTOCOL Kam Cardona MD [address] [place] [address] Scan [place] [address] [facility] [address] [place] [address] Referral ID Status Reason Start Date Expiration Date Visits Re quested Visits Authorized [id number] Closed 10/21/2022 11/21/2023 1 1 Encounter Details Date Type Department Care Team (Latest Contact Info) Description 11/26/2022 2:33 PM CDT - 11/26/2022 11:59 PM CDT Hospital Encounter [facility] CT Scan [address] [place] [address] [place] [address] [facility] [address] [place] [address] Discharge Disposition: Home or Self Care Social History Tobacco Use Types Packs/Day Years [...] PM CDT documented as of this encounter Medications at Time of Discharge Medication Sig Dispensed Refills Start Date End Date cetirizine-pseudoephedrine sr 12 hour (ZyrTEC-D) 5-120 mg tablet Take 1 Tablet by mouth 2 times daily. 72 Tablet 5 10/27/2022 amoxicillin-clavulanate (AUGMENTIN) 875-125 mg tablet Take 1 Tablet by mouth every 12 hours. 28 Tablet 10/21/2022 Fluticasone Furoate (FLONASE SENSIMIST) 27.5 mcg/actuation [place], Suspension Administer 2 Sprays in each nostril daily. 1 Gram 4 10/21/2022 losartan (COZAAR) 50 mg tablet Take 1 Tablet (50 mg) by mouth daily. 90 Tablet 3 09/24/2022 simvastatin (ZOCOR) 40 mg tabletIndications:Pure hypercholesterolemia Take 1 Tablet (40 mg) by mouth late in the day. 90 Tablet 3 09/16/2022 sod bicarb-sod chlor-neti pot ([place] Saline Nasal Neti Rinse) packet with rinse deviceIndications:Acute sinusitis with symptoms greater than 10 days 1 Dose Pack by sinus irrigation route 2 times daily. 07/27/2022 OMEPRAZOLE ORAL Take 20 mg by mouth. Cholecalciferol, Vitamin D3, (VITAMIN D3) 2,000 unit Capsule Take 1 Cap by mouth daily. 03/08/2015 UBIDECARENONE (CO Q-10 ORAL) Take by mouth. montelukast (SINGULAIR) 10 mg tabletIndications:Cough Take 1 Tablet (10 mg) by mouth daily at bedtime. 90 Tablet 1 09/24/2022 03/08/2023 documented as of this encounter Miscellaneous Notes * Result Encounter Note - Kam Cardona MD - 11/26/2022 3:00 PM CDT [facility] documented in this encounter Plan of Treatment Not on file documented as of this encounter Procedures Procedure Name Priority Date/Time Associated Diagnosis Comments CT SINUS STEALTH PROTOCOL Routine 11/26/2022 3:00 PM CDT Chronic pansinusitis documented in this encounter Results * CT SINUS STEALTH PROTOCOL (11/26/2022 3:00 PM CDT) Anatomical Region Laterality Modality Head Computed Tomogra phy 11/26/2022 3:26 PM CDT Impressions 11/26/2022 3:59 PM CDT IMPRESSION: 1. ??Acute on chronic left maxillary sinusitis DICTATION LOCATION: Location 1 - [facility] Narrative 11/26/2022 3:[address] SINUS WITHOUT CONTRAST WITH REFORMATTED IMAGES DATE: 11/26/2022 3:00 PM HISTORY: Sinusitis, chronic or recurrent. ?? Chronic pansinusitis ?? COMPARISON: None. ?? TECHNIQUE: Helical with reformats. The examination was performed with the adjustment of mA according to the patient size and/or the use of Iterative Reconstruction Technique. ? FINDINGS: ?? Traumatic:Unremarkable Frontal sinuses: Unremarkable Frontal recesses: Unremarkable Ethmoid sinuses: Unremarkable Sphenoid sinuses: Unremarkable Spheno-ethmoidal recesses: Unremarkable ?? Sphenoid aeration pattern: Complete sellar Maxillary sinuses: Mild mucoperiosteal thickening on the left with frothy secretions suggesting acute on chronic sinusitis. Ostiomeatal units: Mucoperiosteal thickening causes occlusion of the left iliac new. Olfactory fossa: Symmetrical and unremarkable. Nasal septum: Unremarkable Nasal cavity: Paradoxical curvature of the middle turbinates. Orbits: Unremarkable Mastoids: Unremarkable Middle ears: Unremarkable Petrous apices: Unremarkable Additional: Atherosclerotic calcifications. Sequelae of prior cranioplasty Procedure Note Arnav Álvarez MD - 11/26/2022 CT SINUS WITHOUT CONTRAST WITH REFORMATTED IMAGES DATE: 11/26/2022 3:00 PM HISTORY: Sinusitis, chronic or recurrent. Chronic pansinusitis COMPARISON: None. TECHNIQUE: Helical with reformats. The examination was performed with the adjustment of mA according to the patient size and/or the use of Iterative Reconstruction Technique. FINDINGS: Traumatic:Unremarkable Frontal sinuses: Unremarkable Frontal recesses: Unremarkable Ethmoid sinuses: Unremarkable Sphenoid sinuses: Unremarkable Spheno-ethmoidal recesses: Unremarkable Sphenoid aeration pattern: Complete sellar Maxillary sinuses: Mild mucoperiosteal thickening on the left with frothy secretions suggesting acute on chronic sinusitis. Ostiomeatal units: Mucoperiosteal thickening causes occlusion of the left iliac new. Olfactory fossa: Symmetrical and unremarkable. Nasal septum: Unremarkable Nasal cavity: Paradoxical curvature of the middle turbinates. Orbits: Unremarkable Mastoids: Unremarkable Middle ears: Unremarkable Petrous apices: Unremarkable Additional: Atherosclerotic calcifications. Sequelae of prior cranioplasty IMPRESSION: 1. Acute on chronic left maxillary sinusitis DICTATION LOCATION: Location 1 - [facility] Kam Cardona MD CT ORDERABLES documented in this encounter Visit Diagnoses Diagnosis Chronic pansinusitis Other chronic sinusitis documented in this encounter
--- OUTSIDE RECORDS SUMMARY | 2024-08-19 06:41 | XMS_ITS | Encounter Summary ---
Author Organization [facility] Address [address] [place] [address] Care Team Providers Care Senior Core Java Developer Name Role Phone Unavailable Primary Care Provider Unavailabl e Reason for Visit * Reason Comments Medication Refill Encounter Details Date Type Department Care Team (Late st Contact Info) Description 09/21/2021 Refill [facility] Medicine - [facility] Abundio Yuan [address] [facility] [address] [place] [address] Ciro Fernandez, DO [address] [facility] [address] [place] [address] Social History Tobacco Use Types [...]
--- OUTSIDE RECORDS SUMMARY | 2024-08-19 06:41 | XMS_ITS | Encounter Summary ---
Author Organization [facility] Address [address] [place] [address] Care Team Providers Care Station Repairer Name Role Phone Unavailable Primary Care Provider Unavailabl e Reason for Visit * Reason Comments Annual Wellness Visit (Medicare) Chronic Conditions Coordination Encounter Details Date Type Department Care Team (Late st Contact Info) Description 10/10/2021 10:00 AM HEEL SPRAYER FIRST Office Visit [facility] Family Medicine - [address] [place] [address] Samantha Vargas PA-C [address] [place] [address] Medicare annual wellness visit, subsequent (Primary Dx); Pure hypercholesterolemia ; Prediabetes; Essential hypertension, benign; Gastroesophageal reflux disease, unspecified whether esophagitis present; Acute maxillary sinusitis, recurrence not specified; Screening for malignant neoplasm of prostate Social History Tobacco Use Types Packs/Day Years [...] COVID-19? No / Unsure 10/10/2021 9:38 AM HEEL SPRAYER FIRST documented as of this encounter Last Filed Vital Signs Vital Sign Reading Time Taken Comments Blood Pressure 130/74 10/10/2021 9:52 AM HEEL SPRAYER FIRST Pulse 80 10/10/2021 9:52 AM HEEL SPRAYER FIRST Temperature 36.4 ??C (97.5 ??F) 10/10/2021 9:52 AM CS T Respiratory Rate - - Oxygen Saturation - - Inhaled Oxygen Concentration - - Weight 91.4 kg (201 lb 6.4 oz) 10/10/2021 9:52 A M HEEL SPRAYER FIRST Height 180.3 cm (5' 11 ) 10/10/2021 9:52 AM HEEL SPRAYER FIRST Body Mass Index 28.09 10/10/2021 9:52 AM HEEL SPRAYER FIRST documented in this encounter Progress Notes * Samantha Vargas PA-C - 10/10/2021 12:14 PM CST MEDICARE WELLNESS VISIT Brendon Aldana is a 71 y.o. male here today for his Annual Wellness Visit (Medicare) and Chronic Conditions Coordination . Preventative health discussed and documented Chief Complaint Patient presents with ??? Annual Wellness Visit (Medicare) ??? Chronic Conditions Coordination He presents for his Subsequent Annual Wellness Visit ([id number]) HPI: Mr. Aldana also complains of the following (by systems): Says he has tried making some changes in his diet. Switched from [employer] egg biscuit to a sausage burrito thinking it would be less calories. Still gets a coke with breakfast. Switched to diet soda for lunch and dinner. Not currently exercising. Hypercholesterolemia: Taking and tolerating medications well. Cholesterol diet compliance: no Exercise compliance: no Denies chest pain, palpitations, shortness of breath. No muscular cramps. Hypertension: Taking and tolerating medications well. 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 Hypertensive diet compliance: yes Low Sodium Exercise compliance: no No change in vision. Denies chest pain, palpitations, shortness of breath. No unusual headaches. Prediabetes: Blood sugars are not being checked at home. Low carbohydrate/sugar nutrition: no Exercising 30 minutes 5 times per week: no Denies chest pain, palpitations, shortness of breath. GERD: Feels he symptoms are well controlled with Prilosec and has been on for years. He has tried taking every other day instead of daily but then does start to notice some symptoms. He is open to trial ofPepcid. Frequency of symptoms: none. Patient has had previous treatment which has been helpful States the symptoms are stable. Patient denies side effects of the medications used Review of Systems: ROS: Psychological ROS: negative for change in mood or behavior Ophthalmic ROS: negative for visual changes. ENT ROS: negative for dysphagia Hematological and Lymphatic ROS: negative for swollen glands or abnormal bleeding Endocrine ROS: negative for unexpected new changes in weight Respiratory ROS: negative for cough, shortness of breath, or wheezing Cardiovascular ROS: negative for chest pain, heart palpitations or dyspnea on exertion Gastrointestinal ROS: negative for abdominal pain or black or bloody stools Neurological ROS: negative for severe headaches Dermatological ROS: negative for unusual skin rashes Past Medical/Surgical/Social/Family History reviewed as well as Allergies and Medications. Exam/Objective: BP 130/74 Pulse 80 Temp 97.5 ??F (36.4 ??C) (Temporal) Ht 5' 11 (1.803 m) Wt 91.4 kg (201 lb 6.4 oz) BMI 28.09 kg/m?? Appearance: alert, well appearing, and in no distress. Skin: No unusual rashes noted Eyes: normal, normal vessels HEENT: Throat and pharynx normal. Neck supple. No adenopathy or masses in [...] are normal. Extremities: Peripheral pulses normal, no peripheral edema. Psych: Appropriate Assessment and Plan: Brendon was seen today for annual wellness visit (medicare) and chronic conditions coordination. Diagnoses and all orders for this visit: Medicare annual wellness visit, subsequent Pure hypercholesterolemia - COMPREHENSIVE METABOLIC PANEL; Future Simvastatin 40 mg and CoQ10 100mg 1 tab in the morning. Prediabetes - COMPREHENSIVE METABOLIC PANEL; Future - HEMOGLOBIN A1C; Future - MICROALBUMIN/CREATININE RATIO, RANDOM UR; Future He is not interested in starting on a medication at this time. He would like to control with diet and exercise. Work on good nutrition including low carbohydrate intake and Increase your aerobic exercise to 30 minutes continuous 5 times per week. Essential hypertension, benign - COMPREHENSIVE METABOLIC PANEL; Future - MICROALBUMIN/CREATININE RATIO, RANDOM UR; Future Olmesartan 20 mg Gastroesophageal reflux disease, unspecified whether esophagitis present - Switch to famotidine (PEPCID) 20 mg tablet; Take 1 Tablet (20 mg) by mouth 2 times daily. If symptoms return, restart omeprazole Acute maxillary sinusitis, recurrence not specified - amoxicillin-clavulanate (Augmentin) 875-125 mg tablet; Take 1 Tablet by mouth every 12 hours for 10 days. Screening for malignant neoplasm of prostate - PSA; Future Labs and follow up in 6 months. Medications and options explained to include common side effects. Understanding of medications, course, diagnosis, and expectations were expressed by patient. Preventative Health discussed in full. Discussed Risks, Benefits and Alternatives of the current treatment regimen. Based upon these findings and review of any previous well visits recommendations of the treatment plan was recommended and discussed with the patient. Age appropriate based on today's review and evaluation He voiced understanding and agreement with the treatment plan. He understands the importance of taking his medications and keeping follow-up appointments. All questions were answered. Pzvwi-Tgrca-Nvwmweb will be provided to patient upon check-out. Normal BMI Range: 18 & older: > or = 18.5 and < 25 Body mass index is 28.09 kg/m??. Abnormal high BMI: Patient counseled on lifestyle modifications including weight loss and daily exercise. MEDICARE WELLNESS VISIT Lan Aldana is a 71 y.o. male here today for his Annual Wellness Visit (Medicare) and Chronic Conditions Coordination HEALTH RISK ASSESSMENT Completed by and reviewed with patient/caregiver. See Annual Wellness Visit HRA Flowsheet MEDICAL RECORD REVIEWED AND UPDATED, INCLUDING: Current providers and suppliers: Patient Care Team: Ciro Fernandez, DO as PCP - General Thierry Long MD (Otolaryngology) Past Medical and Surgical History Family History Current medications and allergies In general, how often do you forget or decide not to take one or more of your medications?: Never (10/10/21999) Social History How hard is it for you to pay for the very basics like food, housing, medical care, and heating?: Not hard at all (10/10/21999) In the past 12 months, have you worried that your food would run out before you had money to buy more?: Never true (10/10/21999) In the past 12 months, did you run out of food and didn't have money to buy more?: Never true (10/10/21999) In the past 12 months, has lack of transportation kept you from medical appointments or from getting medications?: No (10/10/21999) EXAMINATION(MA may complete) BP 130/74 Pulse 80 Temp 97.5 ??F (36.4 ??C) (Temporal) Ht 5' 11 (1.803 m) Wt 91.4 kg (201lb 6.4 oz) BMI 28.09 kg/m?? Visual Acuity: Hearing: Have you been told by others you turn up your TV volume too high or that you have problems hearing?: Yes (10/10/21999) FUNCTIONAL ABILITY AND SAFETY (MA may complete) Have you fallen one or more times in the past year?: No (10/10/21999) Are you worried that you might fall due to balance problems? no Do you have leaking of urine?: No (patient not asked) (10/10/21999) Does patient need help with (ADL's): Dressing: No (10/10/21999) Bathing: No (10/10/21999) Walking: No (10/10/21999) Shopping: No (10/10/21999) Housekeeping: No (10/10/21999) Managing your medication: No (10/10/21999) Managing my finances: No (10/10/21999) Do you currently use any medical equipment, such as a cane, walker, wheelchair, or oxygen tank?: No(10/10/21999) Do you fasten your seat belt when you are in the car?: Yes (10/10/21999) Do you have family and/or friends that provide you with support or care when needed?: No (10/10/21999) Do you feel safe at home?: Yes (10/10/21999) RISK ASSESSMENT (MA or Provider can complete) (QM) Positive: PHQ-2 score >= 3 or PHQ-9 score >= 9 PHQ-2 Total: 0 (10/10/2021 10:00 AM) PHQ-9 Total: 0 (10/10/2021 10:00 AM) DEPRESSION PLAN OF CARE His depression screen was negative. Do you feel stressed, tense, restless, nervous, anxious, or unable to sleep at night because your mind is troubled?: Not at all (10/10/21999) TOBACCO COUNSELING (QM) reports that he has never smoked. He does not have any smokeless tobacco history on file. He is not a tobacco user. In a typical week, how many days do you engage in moderate to strenuous exercise such as walking fast, running, jogging, dancing, swimming, biking, or other activities that cause a light or heavy sweat?: 0 days (10/10/21999) Patient encouraged to increase their total weekly physical activity. Opioid Use Current Opioids: none on current medication list Cognitive Impairment The patient does not report concerns regarding cognitive or behavioral issues. Cognitive ability observed and assessed throughout the exam. Structured assessment: Mini-Mental Status Exam: TOTAL SCORE: 30 (10/10/21 0900) PREVENTIVE CARE GUIDELINES (MA or Provider can complete) Written Screening Schedule for the next 5-10 years developed and provided to patient. Preventive Care Recommendations for AVERAGE Risk Adult Males Measure USPSTF Recommendation PSA testing Men 55-69: individual decision based on review of potential benefits and harms. Men >70 not recommended Colon Cancer Screening Colonoscopy every 10 yrs or FIT yearly; ages 45-75 Abdominal Aortic Aneurysm Men 65 -75 who have ever smoked. Lung Cancer Screening Annual low-dose CT, adults 50 - 80* w/ >20 pack-year smoking hx who currently smoke or have quit w/in 15 yrs (*Some insurances may not cover <55 yo, >77 yo or <30 pk yrs) Lipid Screening Identification of dyslipidemia and calculation of 10-year CVD event risk requires universal lipid screening in adults ages 40 - 75 Diabetic screening Adults 40-70 who are overweight or obese Hepatitis C Screening Adults 18-79 No results found for: HEPCAB Immunizations Influenza: yearly Pneumococcal: PPSV23 x 1 after age 65; +/- PCV13 Tetanus: all adults every 10 yrs Zoster(Shingles):>50yo, series of 2 ADVANCE DIRECTIVE/MEDICAL DECISION MAKER (MA or Provider) Do you have an Advance Directive (Living Will)?: No (10/10/21 1000) MEDICAL DECISION MAKER Primary Emergency Contact: Lady Aldana, Relation: Spouse Is the person(s) listed above who you would want to be your Medical Decision Maker? Yes Have you discussed your healthcare wishes with them? Yes. RISK FACTORS AND CONDITIONS FOR WHICH INTERVENTIONS ARE RECOMMENDED AND/OR UNDERWAY (Provider only) Are you currently on any kind of special diet? : No (10/10/21 1000) During the past 4 weeks, would you say you have had...: No pain (10/10/21 1000) No new issues identified EDUCATION/COUNSELING/REFERRAL(S) (Provider only) None indicated Orders Placed This Encounter ??? COMPREHENSIVE METABOLIC PANEL (Favorites) ??? HEMOGLOBIN A1C (Favorites) ??? MICROALBUMIN/CREATININE RATIO, RANDOM UR (Favorites) ??? PSA (Favorites) ??? amoxicillin-clavulanate (Augmentin) 875-125 mg tablet Mr. Aldana voiced understanding and agreement with the treatment plan. All questions were answered. Vpegx-Ubkye-Qnrofai provided to patient. ACUTE AND/OR CHRONIC ISSUES REQUIRING EVALUATION AND MANAGEMENT OUTSIDE THE WELLNESS VISIT (Provider only) Yes: Per E&M documentation: The 10-year ASCVD risk score ([place] NEGRETE Jr., et al., 2013) is: 18.4% Values used to calculate the score: Age: 71 years Sex: Male Is Non- : No Diabetic: No Tobacco smoker: No Systolic Blood Pressure: 130 mmHg Is BP treated: Yes HDL Cholesterol: 39 mg/dL Total Cholesterol: 136 mg/dL Patient is on Asprin Therapy: no. Patient is currently on Statin Treatment: yes. The patient was notified of their inclusion in the CMS [employer] Model. Shared decision makingwas used to assist the patient in understanding their cardiovascular disease risk and the benefits/risks of treatment options. Medication reconciliation with review of adherence, potential interactions and self management was performed. Recommended preventative care services include: Other continue with current regimen. SPRAYER FIRST documented in this encounter Plan of Treatment Not on file documented as of this encounter Procedures Procedure Name Priority Date/Time Associated Diagnosis Comments MICROALBUMIN/CREATININ E RATIO, RANDOM UR Routine 04/25/2022 12:00 AM CDT PSA Routine 04/25/2022 12:00 AM CDT Screening for malignant neoplasm of prostate HEMOGLOBIN A1C Routine 04/25/2022 12:00 AM CDT Prediabetes COMPREHENSIVE METABOLIC PANEL Routine 04/25/2022 12:00 AM CDT Pure hypercholesterolem ia Essential hypertension, benign Prediabetes documented in this encounter Results * MICROALBUMIN/CREATININE RATIO, RANDOM UR (04/25/2022 12:00 AM CDT) Creatinine, Urine 130 20 - 320 mg/dL [facility] MICROALBUMIN, URINE 0.6 See Note: mg/dL [facility] Comment: Reference Range: Reference Range Not established MICROALBUMIN/CREAT RATIO, UR 5 <30 mcg/mg creat [facility] Comment: The ADA defines abnormalities in albumin excretion as follows: Albuminuria Category ?Result (mcg/mg creatinine) Normal to Mildly increased ?? <30 Moderately increased ? 30-299 Severely increased ? > OR = 300 The ADA recommends that at least two of three specimens collected within a 3-6 month period be abnormal before considering a patient to be within a diagnostic category. FASTING:YES FASTING: YES Test Performed at: [facility] [address] [place] ??[phone] Agus Valente D.O., MPH 04/25/2022 04/25/2022 8:4 6 AM CDT Samantha Vargas PA-C URINE ORDERAB LES Performing Organization Address [facility] Co de Phone Number [facility] [phone] [facility] [address] [place] [address] * PSA (04/25/2022 12:00 AM CDT) PSA 0.29 < OR = 4.00 ng/mL [facility] Comment: The total PSA value from this assay system is standardized against the WHO standard. The test result will be approximately 20% lower when compared to the equimolar-standardized total PSA (Lulu Alberto). Comparison of serial PSA results should be interpreted with this fact in mind. This test was performed using the Siemens chemiluminescent method. Values obtained from different assay methods cannot be used interchangeably. PSA levels, regardless of value, should not be interpreted as absolute evidence of the presence or absence of disease. FASTING:YES FASTING: YES Test Performed at: [facility] ??[phone] Agus Valente D.O., MPH Blood 04/25/2022 04/25/2022 8:4 6 AM CDT Samantha Vargas PA-C CHEMISTRY ORD ERABLES Performing Organization Address [facility] Co de Phone Number [facility] [phone] [facility] [address] [place] [address] * HEMOGLOBIN A1C (04/25/2022 12:00 AM CDT) HEMOGLOBIN A1C 5.6 <5.7 % of total Hgb [facility] Comment: For the purpose of screening for the presence of diabetes: <5.7% ? Consistent with the absence of diabetes 5.7-6.4% ?Consistent with increased risk for diabetes ?(prediabetes) > or =6.5% ??Consistent with diabetes This assay result is consistent with a decreased risk of diabetes. Currently, no consensus exists regarding use of hemoglobin A1c for diagnosis of diabetes in children. According to [place] Diabetes Association (ADA) guidelines, hemoglobin A1c <7.0% represents optimal control in non- diabetic patients. Different metrics may apply to specific patient populations. Standards of Medical Care in Diabetes(ADA). ?? ESTIMATED AVERAGE GLUCOSE (MG/DL) 114 mg/dL [facility] ESTIMATED AVERAGE GLUCOSE (MMOL/L) 6.3 mmol/L [facility] a[facility]en Roge Comment: FASTING:YES FASTING: YES Test Performed at: [facility] [address] [place], [place] ??[address] NataleeIsauro Thi Vo Blood 04/25/2022 04/25/2022 8:4 6 AM CDT Samantha Vargas PA-C CHEMISTRY ORD ERABLES [facility] [phone] [facility] [address] [place] [address] * (ABNORMAL) COMPREHENSIVE METABOLIC PANEL (04/25/2022 12:00 AM CDT) GLUCOSE 102(H) 65 - 99 mg/dL [facility] Comment: ? Fasting reference interval For someone without known diabetes, a glucose value between 100 and 125 mg/dL is consistent with prediabetes and should be confirmed with a follow-up test. BUN 11 7 - 25 mg/dL [facility] CREATININE 0.87 0.70 - 1.28 mg/dL [facility] GFR 93 > OR = 60 mL/min/1. 73m2 [facility] Comment: The eGFR is based on the CKD-EPI 2020 equation. To calculate the new eGFR from a previous Creatinine or Cystatin C result, go to https://www.kidney.org/professionals/ kdoqi/gfr%5Fcalculator BUN/CREAT RATIO NOT APPLICABLE (calc) [facility] SODIUM 138 135 - 146 mmol/L [facility] POTASSIUM 4.7 3.5 - 5.3 mmol/L [facility] CHLORIDE 103 98 - 110 mmol/L [facility] CO2 27 20 - 32 mmol/L [facility] CALCIUM 9.4 8.6 - 10.3 mg/dL [facility] TOTAL PROTEIN 7.0 6.1 - 8.1 g/dL [facility] ALBUMIN 4.1 3.6 - 5.1 g/dL [facility] GLOBULIN 2.9 1.9 - 3.7 g/dL (calc) [facility] ALBUMIN/GLOBULI N RATIO 1.4 1.0 - 2.5 (calc) [facility] BILIRUBIN TOTAL 0.7 0.2 - 1.2 mg/dL [facility] ALKALINE PHOSPHATASE 68 35 - 144 U/L [facility] AST 24 10 - 35 U/L [facility] ALT 28 9 - 46 U/L [facility] Comment: FASTING:YES FASTING: YES Test Performed at: [facility] [address] [place] ??[phone] Agus Valente D.O., MPH Blood 04/25/2022 04/25/2022 8:4 6 AM CDT Samantha Vargas PA-C CHEMISTRY ORD ERABLES [facility] [phone] [facility] [address] [place] [address] documented in this encounter Visit Diagnoses Diagnosis Medicare annual wellness visit, subsequent- Primary Routine general medical examination at a health care facility Pure hypercholesterolemia Prediabetes Other abnormal glucose Essential hypertension, benign Gastroesophageal reflux disease, unspecified whether esophagitis present Acute maxillary sinusitis, recurrence not specified Screening for malignant neoplasm of prostate documented in this encounter
--- OUTSIDE RECORDS SUMMARY | 2024-08-19 06:41 | XMS_ITS | Encounter Summary ---
Author Organization [facility] Address [address] [place] [address] Care Team Providers Care Commercial Construction Project Manager Name Role Phone Unavailable Primary Care Provider Unavailabl e Reason for Visit * Reason Onset Date Comments Medication Refill 10/26/2022 Encounter Details Date Type Department Care Team (Late st Contact Info) Description 10/26/2022 Refill [facility] Family Medicine - [address] [place] [address] Ciro Fernandez, DO [address] [facility] [facility] [address] [place] [address] Social History Tobacco Use Types [...] suspected to have Coronavirus/COVID-19? No / Unsure 10/27/2022 10:37 AM CDT documented as of this encounter Plan of Treatment Not on file documented as of this encounter Visit Diagnoses Not on filedocumented in this encounter
--- OUTSIDE RECORDS SUMMARY | 2024-08-19 06:41 | XMS_ITS | Encounter Summary ---
Author Organization [facility] Address [address] [place] [address] Care Team Providers Care Batteryman Name Role Phone Inderjit Narayan DO Primary Care Provider + Reason for Visit * Auth/Cert (Routine) Specialty Diagnoses / Procedures Referred By Contac t Referred To Contact Perioperative Diagnoses History of colon polyps Procedures [facility] COLONOSCOPY FLX DX W/COLLJ SPEC WHEN PFRMD COLONOSCOPY Modesta Wise DO [address] [address] [facility] Endoscopy [address] 1 [place] [address] Referral ID Status Reason Start Date Expiration Date Visits Re quested Visits Authorized [id number] 1 1 Encounter Details Date Type Department Care Team (Late st Contact Info) Description 04/09/2023 7:47 AM CDT - 04/09/2023 10:30 AM CDT Hospital Encounter [address] 1 [place] [address] Modesta Wise DO [address] [address] History of colon polyps Discharge Disposition: Home or Self Care Social [...] AM CDT documented as of this encounter Last [...] Mass Index 28.28 04/09/2023 9:09 AM CDT documented in this encounter Medications at Time of Discharge Medication Sig Dispensed Refills Start Date End Date montelukast (SINGULAIR) 10 mg tabletIndications:Cough TAKE 1 TABLET BY MOUTH EVERYDAY AT BEDTIME 90 Tablet 1 03/08/2023 cetirizine-pseudoephedrine sr 12 hour (ZyrTEC-D) 5-120 mg tablet Take 1 Tablet by mouth 2 times daily. 72 Tablet 5 10/27/2022 amoxicillin-clavulanate (AUGMENTIN) 875-125 mg tablet Take 1 Tablet by mouth every 12 hours. 28 Tablet 10/21/2022 Fluticasone Furoate (FLONASE SENSIMIST) 27.5 mcg/actuation [place], Suspension Administer 2 Sprays in each nostril daily. 1 Gram 4 10/21/2022 losartan (COZAAR) 50 mg tablet Take 1 Tablet (50 mg) by mouth daily. 90 Tablet 3 09/24/2022 simvastatin (ZOCOR) 40 mg tabletIndications:Pure hypercholesterolemia Take 1 Tablet (40 mg) by mouth late in the day. 90 Tablet 3 09/16/2022 sod bicarb-sod chlor-neti pot ([place]ord Saline Nasal Neti Rinse) packet with rinse deviceIndications:Acute sinusitis with symptoms greater than 10 days 1 Dose Pack by sinus irrigation route 2 times daily. 07/27/2022 OMEPRAZOLE ORAL Take 20 mg by mouth. Cholecalciferol, Vitamin D3, (VITAMIN D3) 2,000 unit Capsule Take 1 Cap by mouth daily. 03/08/2015 UBIDECARENONE (CO Q-10 ORAL) Take by mouth. documented as of this encounter Progress Notes * Amparo Ibarra RN - 03/16/2023 12:32 PM CDT Images from the original note were not included. [facility] Routine Pre-Anesthesia Protocol for GI Lab Procedures [facility] Approved by: [facility]-Medical Executive Committee Approval Date: 12/22/2022 ORDERS ARE ENTERED ???PER PROTOCOL?? Enter the protocol in the patient???s electronic health record using CrowdTunesrase: .anestprotocolgilab Nursing Orders: Monitoring Obtain and record vital signs on admission to [facility] Continuous vital signs (Non-invasive blood pressure, pulse oximetry and cardiac monitoring) for: All inpatients All patients currently taking beta-blockers Patients diagnosed with/or at risk for sleep apnea (e.g., STOP-BANG greater than or equal to 3) Glycemic Control POC glucose for diabetics Notify provider for any POC glucose or serum glucose less than 70 mg/dL. If POC Glucose results arecritical, do not delay treatment. If appropriate, may confirm POC with: Nursing Only [id number] (this lab can be obtained at no cost to the patient when confirming a critical high or Critical low POC glucose. See hypoglycemia protocol for additional orders if needed: [facility] ANE Adult Perianesthesia HYPOglycemia Protocol Notify any provider for any POC glucose or serum glucose greater than 180 mg/dL. When receiving report on an inpatient, confirm if patient is receiving dextrose containing fluids to prevent hypoglycemia. Communicate with the anesthesiologist and request glucose containing fluids be continued or added to intraoperative/intraprocedure fluids. POC glucose within 30 minutes of discharge or transfer to another unit (the time-based intra-procedure POC check may be deferred during short procedures at the discretion of the provider. Laboratory Orders: POC Urine Test (POC7) (if unable to obtain urine, may obtain serum [id number]) All patients with potential for childbearing (menarche to menopause) Medication Orders: Intravenous Line Place #20 gauge IV in non-dominant, non-operative or not otherwise excluded upper extremity unless otherwise ordered by anesthesiologist. Contact responsible anesthesiologist if recommending use of a #22 gauge IV For patients with difficult IV access notify anesthesiologist. For patients with difficult IV access and an implanted infusion port, access the port in accordancewith nursing policies. Local Anesthetic to use to initiate IV line: Lidocaine 2% 0.3mL intradermal ONE TIME to numb area of IV catheter insertion PRN. IV Fluid- Adult patients (age 18 years or greater): Lactated ringer's solution to infuse at 125mL/hr, may discontinue upon discharge from procedure area If patient is found to have a serum creatinine >2 or history of renal failure, RN may change to NS at 10ml/hr documented in this encounter H&P Notes * Modesta Wise DO - 04/09/2023 9:12 AM CDT PRE PROCEDURE EVALUATION DATE: 04/09/2023 HPI: This is a 73 y.o. male patient scheduled for Colonoscopy for previous adenomatous polyp. Patient Active Problem List Diagnosis Date Noted S/P arthroscopy of right shoulder 09/30/2018 S/P right rotator cuff repair 09/30/2018 Status post subacromial decompression 09/30/2018 Stasis dermatitis of both legs 03/18/2018 Prediabetes 11/10/2016 Vitamin D deficiency 12/19/2014 Colon adenoma 01/22/2014 AK (actinic keratosis) 05/26/2010 Allergic rhinitis 11/11/2009 Osteoarthritis 01/02/2009 Esophageal reflux Essential hypertension, benign Pure hypercholesterolemia Past Medical History: Diagnosis Date Community acquired pneumonia Contact dermatitis and other eczema, due to unspecified cause Essential hypertension AGDAAGUX (hard of hearing) Hyperlipidemia Hypertension Motion sickness Past Surgical History: Procedure Laterality Date HX HEART CATHETERIZATION 1992 HX SURGICAL OTHER as an Removed blood clot from brain HX VASECTOMY 1980 [facility] COLONOSCOPY FLX DX W/COLLJ SPEC WHEN PFRMD 01/12/2014 COLONOSCOPY performed by Modesta Wise DO at [facility] GI LAB VA COLONOSCOPY FLX DX W/COLLJ SPEC WHEN PFRMD N/A 09/01/2019 COLONOSCOPY performed by Modesta Wise DO at [facility] GI LAB [facility] SURGICAL ARTHROSCOPY SHOULDER W/ROTATOR CUFF RPR Right 09/30/2018 RIGHT SHOULDER SCOPE W ROTATOR CUFF REPAIR, SUBACROMIAL DECOMPRESSION, W EXTENSIVE DEBRIDEMENT performed by Nehemiah Castellano MD at [facility] CC OR Medications Prior to Admission Medication Sig Dispense Refill Last Dose montelukast (SINGULAIR) 10 mg tablet TAKE 1 TABLET BY MOUTH EVERYDAY AT BEDTIME 90 Tablet 1 04/08/2023 cetirizine-pseudoephedrine sr 12 hour (ZyrTEC-D) 5-120 mg tablet Take 1 Tablet by mouth 2 times daily. 72 Tablet 5 04/08/2023 Fluticasone Furoate (FLONASE SENSIMIST) 27.5 mcg/actuation [place], Suspension Administer 2 Sprays ineach nostril daily. 1 Gram 4 04/08/2023 losartan (COZAAR) 50 mg tablet Take 1 Tablet (50 mg) by mouth daily. 90 Tablet 3 04/09/2023 at 0600 simvastatin (ZOCOR) 40 mg tablet Take 1 Tablet (40 mg) by mouth late in the day. 90 Tablet 3 04/08/2023 OMEPRAZOLE ORAL Take 20 mg by mouth. 04/08/2023 Cholecalciferol, Vitamin D3, (VITAMIN D3) 2,000 unit Capsule Take 1 Cap by mouth daily. Past Week UBIDECARENONE (CO Q-10 ORAL) Take by mouth. Past Week amoxicillin-clavulanate (AUGMENTIN) 875-125 mg tablet Take 1 Tablet by mouth every 12 hours. 28 Tablet 0 sod bicarb-sod chlor-neti pot (Hereford Saline Nasal Neti Rinse) packet with rinse device 1 Dose Pack bysinus irrigation route 2 times daily. Allergies Allergen Reactions Methylprednisolone Rash and Other (See Comments) Sulfamethoxazole-Trimethoprim Rash Social History Tobacco Use Smoking status: Never Smokeless tobacco: Not on file Substance Use Topics Alcohol use: Not Currently Family History Problem Relation Name Age of Onset Heart Disease Father High Cholesterol Father Heart Disease Mother Heart Failure Mother Healthy Sister Half-sister Healthy Brother Colon Cancer Maternal Grandmother Cancer Maternal Grandmother Diabetes Neg Hx Hypertension Neg Hx Asthma Neg Hx Emphysema Neg Hx Bronchitis Neg Hx Lung Cancer Neg Hx Mesothelioma Neg Hx Tuberculosis Neg Hx Glaucoma Neg Hx Macular Degen Neg Hx Head: atraumatic, Normocephalic, without obvious abnormality Lungs: normal respiratory effort Airway: No apparent abnormality Heart: normal rate and regular rhythm Abdomen: Soft, non-tender. Neurologic: Grossly normal Informed Consent: The patient was informed of the indications for the procedure, the risks/benefits and the alternatives, and agreed to proceed. In particular, the patient was informed of the risk of perforation/(1:1000), medication side effect, infection, a missed lesion, or incomplete examination. In the case of dilatation, the patient was informed of the risk of perforation (1 to 5%). There was nothing onhistory or physical examination precluding the procedure. IMPRESSION & PLAN: Indications for procedure as noted in HPI. Will proceed with the above mentioned procedure(s) as scheduled. Modesta Wise DO documented in this encounter Procedure Notes * Modesta Wise DO - 04/09/2023 10:14 AM CDTAssociated Order(s): COLONOSCOPY REPORT [facility] [facility] Patient Name: Brendon Aldana Procedure Date: [...] Addenda: 0 Procedure Date: 04/09/2023 9:32:32 AM [id number] [address] * Amparo Ibarra RN - 03/16/2023 12:32 PM CDT GI PROCEDURE NOTE from Nursing PAT call Patient: Brendon Aldana : 1950 Endoscopist: Surgeon(s): Modesta Wise DO Upcoming Procedure: Procedure to be Performed: Procedure(s): COLONOSCOPY Procedure Date/Time: 04/09/2023 at 0915 Diagnosis/Indication for procedure: Pre-Op Diagnosis Codes: * History of colon polyps [Z86.010] * Polyp of hepatic flexure of colon [K63.5] * Diverticulosis [K57.90] * Screen for colon cancer [Z12.11] Location: [facility] Referring Physician: Ciro Fernandez Patient's BMI: Body mass index is 28.03 kg/m??. Is patient a candidate for offsite location? yes Medications Type of prep given: Instructions sent via: Email Anticoagulants: no Relevant prior procedure/pathology: Procedure: COLON Physician: MR Date: 09/01/2019 Location: [facility] Last Pathology: FINAL DIAGNOSIS Large bowel, hepatic flexure polyps, polypectomy: -Tubular adenomas. Past Surgical History: Past Surgical History: Procedure Laterality Date HX HEART CATHETERIZATION 1992 HX SURGICAL OTHER as an Removed blood clot from brain HX VASECTOMY 1980 [facility] COLONOSCOPY FLX DX W/COLLJ SPEC WHEN PFRMD 01/12/2014 COLONOSCOPY performed by Modesta Wise DO at [facility] GI LAB VA COLONOSCOPY FLX DX W/COLLJ SPEC WHEN PFRMD N/A 09/01/2019 COLONOSCOPY performed by Modesta Wise DO at [facility] GI LAB VA SURGICAL ARTHROSCOPY SHOULDER W/ROTATOR CUFF RPR Right 09/30/2018 RIGHT SHOULDER SCOPE W ROTATOR CUFF REPAIR, SUBACROMIAL DECOMPRESSION, W EXTENSIVE DEBRIDEMENT performed by Nehemiah Castellano MD at [facility] CC OR Past Medical History: Past Medical History: Diagnosis Date Community acquired pneumonia Contact dermatitis and other eczema, due to unspecified cause Essential hypertension AGDAAGUX (hard of hearing) Hyperlipidemia Hypertension Motion sickness No current facility-administered medications on file prior to encounter. Current Outpatient Medications on File Prior to Encounter Medication Sig Dispense Refill cetirizine-pseudoephedrine sr 12 hour (ZyrTEC-D) 5-120 mg tablet Take 1 Tablet by mouth 2 times daily. 72 Tablet 5 Fluticasone Furoate (FLONASE SENSIMIST) 27.5 mcg/actuation [place], Suspension Administer 2 Sprays ineach nostril daily. 1 Gram 4 losartan (COZAAR) 50 mg tablet Take 1 Tablet (50 mg) by mouth daily. 90 Tablet 3 simvastatin (ZOCOR) 40 mg tablet Take 1 Tablet (40 mg) by mouth late in the day. 90 Tablet 3 OMEPRAZOLE ORAL Take 20 mg by mouth. amoxicillin-clavulanate (AUGMENTIN) 875-125 mg tablet Take 1 Tablet by mouth every 12 hours. 28 Tablet 0 sod bicarb-sod chlor-neti pot ([place]ord Saline Nasal Neti Rinse) packet with rinse device 1 Dose Pack bysinus irrigation route 2 times daily. Cholecalciferol, Vitamin D3, (VITAMIN D3) 2,000 unit Capsule Take 1 Cap by mouth daily. UBIDECARENONE (CO Q-10 ORAL) Take by mouth. documented in this encounter Miscellaneous Notes * Result Encounter Note - Modesta Wise DO - 04/15/2023 10:00 AM CDT Surveillance colonoscopy in 5 years. documented in this encounter Plan of Treatment Not on file documented as of this encounter Procedures Procedure Name Priority Date/Time Associated Diagnosis Comments COLONOSCOPY REPORT 04/09/2023 10 :14 AM CDT PATHOLOGY Pathology 04/09/2023 10:00 AM CDT History of colon polyps Polyp of hepatic flexure of colon Diverticulosis Screen for colon cancer VA COLONOSCOPY FLX DX W/COLLJ SPEC WHEN PFRMD 04/09/2023 9:15 AM CDT History of colon polyps Polyp of hepatic flexure of colon Diverticulosis Screen for colon cancer documented in this encounter Results * COLONOSCOPY REPORT (04/09/2023 10:14 AM CDT) Narrative Procedure Note Modesta Wise DO - 04/09/2023 10:14 AM CDT [facility] Patient Name: Brendon Aldana Procedure Date: [...] Addenda: 0 Procedure Date: 04/09/2023 9:32:32 AM [id number] [facility] [address] [place] [address] Janicedani Yeni Wise DO GI PROCEDURE ORDERA BLES * PATHOLOGY (04/09/2023 10:00 AM CDT) CASE REPORT Surgical Pathology Report ? Case: [id number] ? Authorizing Provider: ??Modesta Wise, DO ? Collected: ? 04/09/2023 10:00 AM ? Ordering Location: ? [facility] Endoscopy ?? Received: ?04/09/2023 03:02 PM ? [facility] ? Pathologist: ? Kevin Romero, DO ? Specimen: ?Colon, transverse, polyps ? 3 4:52 PM CDT [facility] FINAL DIAGNOSIS Large bowel, transverse colon polyp, polypectomy: - Tubular adenoma. 3 4:52 PM CDT [facility] S DESCRIPTION Received in one container labeled Brendon Aldana and transverse colon polyp is 1 piece of red-pate tissue measuring 0.6 x 0.3 x 0.1 cm. It is entirely submitted in cassette A1. [facility] 3 4:52 PM [facility] MICROSCOPIC DESCRIPTION The slides are labeled [id number] and Brendon Aldana. Sections of the transverse colon polyp show a tubular adenoma. No high-grade dysplasia or invasive carcinoma is identified. 3 4:52 PM [facility] OPERATIVE PROCEDURE 1: COLONOSCOPY 3 4:52 PM [facility] CLINICAL INFORMATION A Colon Polyp(s). Adenomatous vs hyperplastic vs other. Colon Polyp(s). Adenomatous vs hyperplastic vs other. hx polyps K63.5 (ICD-10-CM) - 211.3 (ICD-9-CM) - Polyp of hepatic flexure of colon K57.90 (ICD-10-CM) - 562.10 (ICD-9-CM) - Diverticulosis screening Z86.010-History of colon polyps K63.5-Polyp of hepatic flexure of colon K57.90-Diverticulosis Z12.11-Screen for colon cancer 3 4:52 PM [facility] COMMENT Special stain, immunohistochemical, and/or in situ hybridization results are interpreted with controls that demonstrate appropriate staining reactions. Note on use of immunohistochemistry reagents and in situ hybridization probes: These tests were developed and their performance characteristics determined by [facility], Department of Laboratory Medicine. It has not been cleared or approved by the U.S. Food and Drug Administration. The FDA has determined that such clearance or approval is not necessary. The test is used for clinical purposes. It should not be regarded as investigational or for research. This laboratory is certified to perform high complexity testing. Frozen section/operating room consultation, gross examination and dissection, and case sign out may have been performed in part or completely in the following laboratories: [facility], [place] #[id number] [address] [place] [address] [facility], [place] #[id number] 1 [place] [address] [facility], CLIA #[id number], [place] [address] This report was created with the Intern voice-activated dictation system. Inherent to this system is the possibility of syntax, grammar, punctuation and other errors that could impact the interpretation of the report. If there are interpretative questions about aspects of this report, please contact the performing pathologist. 4:52 PM CDT [facility] Tissue TRANSVERSE COLON STRUCTURE / Unknown Collection / Unknown 04/09/2023 10:00 AM CDT 04/09/2023 3:02 PM CDT Comment:Colon Polyp(s). Pj omatous vs hyperplastic vs other. Modesta Wise DO PATHOLOGY/CYTOLOGY ORDERABLES [facility] [id number] [address] [place] [address] documented in this encounter Visit Diagnoses Diagnosis History of colon polyps Personal history of colonic polyps Polyp of hepatic flexure of colon Diverticulosis Diverticulosis of colon (without mention of hemorrhage) Screen for colon cancer Special screening for malignant neoplasms, colon documented in this encounter Administered Medications Inactive Administered Medications - up to 3 most recent administrations Medication Order MAR Action Action Date Dose Rate Site lactated ringers infusion IV, at 125 mL/hr, PRE-PROCEDURE CONTINUOUS, Starting on Wed04/09/23 at 0915, Until Wed04/09/23 at 1253, Routine, Pre-Procedure Continue from Pre-Op 04/09/2023 9:43 AM CDT 125 mL/hr New Bag 04/09/2023 9:16 AM CDT 125 mL/hr documented in this encounter Active and Recently Administered Medications Times are shown in CDT. Continuous Medication Order 04/07/2023 04/08/2023 04/09/2023 lactated ringers infusion IV, at 125 mL/hr, PRE-PROCEDURE CONTINUOUS, Starting on 9/1/23 at 0915, Until 04/09/23 at 1253, Routine, Pre-Procedure 0916 (New Bag - Prov ider: Ni García, BUCKY)0943 (Continue from Pre-Op - Provider: Kim Singh CRNA)1001 (Fluid Volume - Provider: Kim Singh CRNA)1011 (Stopped - Provider: Mercedez Vu RN) documented in this encounter Care Teams Batteryman Relationship Specialty Start Date End Date Inderjit Narayan DO [address] [place] [phone] PCP - General Family Practice 04/09/23 08/29/23 documented as of this encounter
--- OUTSIDE RECORDS SUMMARY | 2024-08-19 06:41 | XMS_ITS | Encounter Summary ---
Author Organization [facility] Address [address] [place] [address] Care Team Providers Care Drafter Marine Name Role Phone Unavailable Primary Care Provider Unavailabl e Reason for Visit * Reason Comments Upper Respiratory Symptoms Encounter Details Date Type Department Care Team (Late st Contact Info) Description 07/27/2022 1:00 PM PRIMARY CLASS TEACHER Video Visit [facility] Medicine - [facility] [address] [facility] [address] [place] [address] Board, SHIRLEY Martinez [address] [facility] [address] [place] [address] Acute sinusitis with symptoms greater than 10 days (Primary Dx) Social History Tobacco Use Types [...] Coronavirus/COVID-19? No / Unsure 07/21/2022 12:41 PM PRIMARY CLASS TEACHER documented as of this encounter Last Filed Vital Signs Vital Sign Reading Time Taken Comments Blood Pressure - - Pulse - - Temperature - - Respiratory Rate - - Oxygen Saturation - - Inhaled Oxygen Concentration - - Weight 89.8 kg (198 lb) 07/27/2022 12:48 PM PRIMARY CLASS TEACHER Height 180.3 cm (5' 11 ) 07/27/2022 12:48 PM PRIMARY CLASS TEACHER Body Mass Index 27.62 07/27/2022 12:48 PM PRIMARY CLASS TEACHER documented in this encounter Patient Instructions * Attachments The following attachments cannot be sent through Care Everywhere. * Sinus Rinse (Liberian) * Chronic sinusitis (Liberian) documented in this encounter Progress Notes * Mariam Recinos FNP - 07/27/2022 1:06 PM CST This encounter was completed via two-way synchronous audio and video communication. Patient expressed understanding that using technology outside of [facility] has higher potential tointroduce privacy risks: Yes Patient's identity confirmed yes Patient gave verbal consent to have these services billed to their insurance and expressed understanding that co-insurance and deductible may apply: yes Primary care physician: Ciro Fernandez DO Chief complaint: Upper Respiratory Symptoms Subjective: Brendon Aldana is a 72 y.o. male with complaints of left sided nasal drainage, congestion and fullness. Symptoms began gradually, starting 1 year ago. Worsening symptoms x 7-10 days ago. Worse at night, now having to sleep on multiple pillows. History of frequent antibiotic use for this. Answers submitted by the patient for this visit: Uppepr Respiratory Symptoms Questionnaire (Submitted on 07/27/2022) Chief Complaint: URI swollen glands: No Onset: more than 1 week ago Progression : gradually worsening plugged ear sensation: No Facial pain: No Review of Systems Constitutional: Positive for fatigue. Negative for chills and fever. HENT: Positive for rhinorrhea and sinus pressure. Negative for ear pain and sore throat. Respiratory: Negative for cough and wheezing. Gastrointestinal: Negative for abdominal pain, nausea and vomiting. Musculoskeletal: Negative for arthralgias and myalgias. Skin: Negative for rash. Neurological: Positive for headaches. All other systems reviewed and are negative. Objective: Height 5' 11 (1.803 m), weight 89.8 kg (198 lb). Physical Exam Constitutional: Appearance: Normal appearance. HENT: Head: Comments: Speaking in full sentences Eyes: Conjunctiva/sclera: Right eye: Right conjunctiva is not injected. Left eye: Left conjunctiva is not injected. Neurological: Mental Status: He is alert. Assessment and Plan: Brendon Aldana is a 72 y.o. male with acute on chronic left sinusitis. Has initial otolaryngology follow up in October. Instructed continue Zyrtec, healthy diet, saline rinse and Vicks vapor at night.WASP doxycycline. 1. Acute sinusitis with symptoms greater than 10 days - sod bicarb-sod chlor-neti pot (Rochester Saline Nasal Neti Rinse) packet with rinse device; 1 Dose Packby sinus irrigation route 2 times daily. - doxycycline hyclate (VIBRAMYCIN) 100 mg tablet; Take 2 Tablets (200 mg) by mouth daily for 5 days. Dispense: 10 Tablet; Refill: 0 I have reviewed the patient's medical, surgical, family, social history, recent test results, chartnotes and records available via care everywhere on the day of visit. Appropriate patient instructions provided (see detailed AVS). Medications and/or testing (if ordered) explained to include common side effects, risks and benefits. Understanding of medications and/or tests (if ordered), diagnosis,and plan of care were expressed by patient (or guardian). Return if symptoms worsen or fail to improve. SHIRLEY Fishman ARY CLASS TEACHER documented in this encounter Miscellaneous Notes * Patient Instructions - Mariam Recinos FNP - 07/27/2022 1:29 PM PRIMARY CLASS TEACHER Physical exams can help you stay healthy. Today we have checked your overall health and discussed some ways to take good care of yourself. At home, you can help prevent illness with healthy eating, regular physical activity, and other steps below. How can you care for yourself at home? Remember that you are mind, heart, body, and spirit: try and keep the balance! Staying hydrated helps the body maintain normal function. Drinking 2 liters of water daily can alsohelp increase metabolism and stitch bonder machine operator helper weight loss. Follow a low fat, low salt, low refined sugar, high fiber diet. I also recommend a NO or LOW gluten(wheat) diet for weight management, gut health and to reduce inflammation. Get a flu shot every year. Covid 19 vaccination is also recommended. Reach and stay at a healthy weight. This will lower your risk for many problems, such as obesity, diabetes, arthritis, heart disease, sleep apnea, acid reflux and high blood pressure. Get at least 30 minutes of exercise on most days of the week. Walking is a good choice. You also may want to do other activities, such as running, swimming, cycling, or playing tennis or team sports. Do not smoke. Smoking can make health problems worse. If you need help quitting, talk to your doctor about stop-smoking programs and medicines. These can increase your chances of quitting for good. You can also find resources by calling 4-535MetaJure or visit www.smokefree.gov. Always wear sunscreen on exposed skin. Make sure to use a broad-spectrum sunscreen that has a sun protection factor (SPF) of 30 or higher. Use it every day, even when it is cloudy. See a dentist two times a year for checkups and to have your teeth cleaned. Wear a seat belt in the car. Limit alcohol to 1 drink a day. Too much alcohol can cause health problems. If you have trouble sleeping, talk to your doctor about ways to get better sleep. See below for my sleep tips. If over 50, to keep your bones healthy: calcium 1200 mg per day and vitamin D 1000 IU and daily weight bearing exercise (One dairy serving = 300 mg of calcium) Follow-up care is a luis part of your treatment and safety. Be sure to make and go to all appointments, and call your doctor if you are having problems. It's also a good idea to know your test resultsand keep a list of the medicines you take. For everyone Cholesterol. Have the fat (cholesterol) in your blood tested after age 20. Your doctor will tell you how often to have this done based on your age, family history, or other things that can increase your risk for heart disease. Blood pressure. Experts suggest that healthy adults with normal blood pressure (119/79 mm Hg or below) have their blood pressure checked at least every 1 to 2 years. This can be done during a routinedoctor visit. If you have slightly higher or high blood pressure, your doctor will suggest more frequent tests. Diabetes. This can be done once yearly with a fasting glucose. Colon cancer. Have a test for colon cancer at age 45. You may have one of two tests (colonoscopy orfecal immunochemical test FIT). If you are younger than 45, you may need a test earlier if you haveany risk factors. Risk factors include whether you already had a precancerous polyp removed from your colon or whether your parent, brother, sister, or child has had colon cancer. Tests for sexually transmitted infections (STIs). Ask whether you should have tests for STIs. You may be at risk if you have sex with more than one person, especially if your partners do not wear condoms. Vision. Have your eyes checked every year or two or as often as your doctor suggests. Some experts recommend that you have yearly exams for glaucoma and other age-related eye problems starting at age50. Hearing. Tell your doctor if you notice any change in your hearing. You can have tests to find out how well you hear. Osteoporosis. You should begin tests for bone density at age 65. If you are younger than 65, ask your doctor whether you have factors that may increase your risk for this disease. You may want to have this test before age 65. Heart attack and stroke risk. At least every 4 to 6 years, you should have your risk for heart attack and stroke assessed. Your doctor uses factors such as your age, blood pressure, cholesterol, and whether you smoke or have diabetes to show what your risk for a heart attack or stroke is over the next 10 years. For Women Breast exam and mammogram. Talk to your doctor about when you should have a clinical breast exam and a mammogram. Standard is once yearly starting at age 40. Pap test and pelvic exam. Begin Pap tests at age 21. A Pap test is the best way to find cervical cancer. The test often is part of a pelvic exam. Ask how often to have this test, typically every 3-5 years. For Men Prostate exam. Talk to your doctor about whether you should have a blood test (called a PSA test) for prostate cancer. Experts disagree on whether men should have this test. Some experts recommend that you discuss the benefits and risks of the test with your doctor. Abdominal aortic aneurysm. Ask your doctor whether you should have a test to check for an aneurysm.You may need a test if you ever smoked or if your parent, brother, sister, or child has had an aneurysm. BLUE RAY BLOCKING LENSES. This needs to be a new staple accessory in life to protect the harmful effects of this type of light on chemicals in the brain. This exposure provokes disrupted sleep by altering melatonin and potentiate mood problems by creating irregular serotonin synthesis. I have purchased several pairs on [employer] without magnification (5 pairs for less than $15), but many options areavailable and they are most definitely affordable. If you already use prescription lenses, this canbe incorporated into a new presciption (even contacts) or you can buy strange looking stick-on filters from [employer] to impress all of your admirers. MIGRAINE PREVENTION in addition to the above basics for sleep. Eliminating gluten, SUGAR and dairy will significantly reduce frequency and severity of headaches in the vast majority. Also wearing Blue light filtering glasses can help. SLEEP TIPS for better REST Blue light filtering lenses or screen modifications use during the day have been shown to improve sleep. Designate sleep time, such as from 10p-6a or 11p-7a. The goal is about 8-9 hours. No lights on in the bedroom during designated sleep time. Establish a daily routine. Get up at or around the same time and go to bed at the same time, even on the weekends. Incorporate exercise in daily routine. Do not look at the time or alarm clock during designated sleep hours, this causes anxiety about whyyou are not asleep or how much more time you have to sleep. No TV in bedroom Avoid alcohol and caffeine past 3 pm. No food past 8 pm (or within 2 hours of designated sleep time). Avoid using tablets, cell phones or computers in bed. If you wake up in the middle of the night and can't fall back asleep, don't look at the time. Just rest in bed. It is better to rest than to get up and watch TV or start your day. Most of the time, you will eventually fall back asleep. Work on nose breathing for the many health benefits of this technique. This improves sleep quality and reduces snoring. There are many devices and methods advertised for this such as nasal bridge strips, the tape method , mouth guards, pillows and simply practicing this technique. Consider Melatonin 5-10 mg nightly, about 1 hour prior to bed, to help regulate your sleep/wake cycle. Consider Magnesium Citrate 100-400 mg nightly for restlessness and to calm the muscles. Consider Vitamin D supplementation, once daily in the morning. This also helps regulate sleep/wake cycles. See below for dosing. Supplement Considerations for Your Best Overall Health Vitamin D3 5000 IU with vitamin K2 Take this one in the morning to prevent disrupted sleep. Withoutvitamin K2, the increased amount of vitamin D intake can elevate calcium levels in the blood for some people and cause health related issues associated with too much calcium (kidney stones, calcium deposits elsewhere). Vitamin D can also help elevated mood, improve energy and support your immune system. Brighton 3 Fatty Acids. DHA and EPA combination 1000 mg daily. There are many forms to choose from including fish oil and plant-based products. Including this in your daily routine can improve overall brain function, cognition and mood. Significant improvements in executive function and risk reductionfor dementia are additional benefits as well as supporting your joints. Turmeric 7940-1456 mg daily. This is an anti-inflammatory and neuro protective agent. Turmeric is believed to help prevent cognitive decline and could have immediate benefits for working memory. It improves mood and reduces pain related to inflammation. If you have gastrointestinal sensitivity, discomfort or pain, chose a product that does not advertise bioprene for improved absorption/black pepper as these elements can aggravate the gastrointestinal tract. Coenzyme Q 10 100-200 mg twice daily. This enzyme helps stimulate mitochondria at a cellular level,which improves the resilience and overall function of nerve cells. It offsets the effects of aging (cell from free radicals and oxidation) and is extremely important to lower risk of suffering from severe medical diseases. It is a vital part of cardiac muscle function and brain signaling support. CoQ10 is recommended for any person on a statin (cholesterol) medication as statin drugs automatically lower CoQ10 in the body. N-yagepl-I-cystein (NAC) 2.4 to 3.6 grams per day. This normally comes in 600 mg capsules or tablets, so you would need 4-6/day. This supplement can reduce symptoms of anxiety as well as OCD, PTSD generalized anxiety disorder and depression. It is also effective to support initiative with breakinghabits and can help with smoking cessation. This supplement in the body provides mitochondrial support and improves the ability of the body to eliminate toxins [used as a binder for detoxification pathways within the immune system]. Ashwaganda 400mg daily. This works by lowering the amount of cortisol released from the adrenal glands, which helps reduce anxiety and the associated harmful effects of adrenaline and stress on the body. Another way to get this is through herbal tea. It is usually found in products labeled for stress relief and calm support. Trustworthy product brands for purchasing supplements: NOW products, [employer] of [employer], any brand sold at [employer] (c) Recommended PODCASTS [facility] with Salina Escamilla, Ph.D. A Slight Change of Plans with Denisha Cohn, Ph.D. Unlocking Us with Yara Burnett, Ph. D [facility] with Jo Ann Rees COVID VACCINE - To schedule your COVID vaccination through [employer], visit [email or web address] or inquire with your pharmacy. If you are experiencing suicidal thoughts, please seek help by calling [phone], to reach the NationalSuicide Prevention Lifeline 24 hours a day. For Fasting Labs - Fast 8-12 hours, medications, water and black coffee okay pattern perforating machine operator appointment or Test - Please call [phone] today or if you do not receivea call in the next 2-3 days. *You can view all blood work, imaging or any test results via Box or on the Major Aide alvaro. Please keep in mind you might receive your test results before your doctor. Please allow up to one week for your doctor to review and provide thoughtful comment on all none urgent results. ARY CLASS TEACHER documented in this encounter Plan of Treatment Not on file documented as of this encounter Visit Diagnoses Diagnosis Acute sinusitis with symptoms greater than 10 days- Primary Acute sinusitis, unspecified documented in this encounter
--- OUTSIDE RECORDS SUMMARY | 2024-08-19 06:41 | XMS_ITS | Encounter Summary ---
Author Organization [facility] Address [address] [place] [address] Care Team Providers Care Precision Filer Hand Name Role Phone Unavailable Primary Care Provider Unavailabl e Reason for Visit * Reason Onset Date Comments Results 07/24/2022 pathology Encounter Details Date Type Department Care Team (Late st Contact Info) Description 07/24/[address] [facility] Medicine - [address] [facility] [address] [place] [address] Ciro Fernandez, DO [address] [facility] [address] [place] [address] Results (pathology) Social History Tobacco Use Types Packs/Day Years [...] Coronavirus/COVID-19? No / Unsure 07/21/2022 12:41 PM EXTRUSION DIE COORDINATOR documented as of this encounter Miscellaneous Notes * Telephone Encounter - Kay Jesus CMA - 07/24/2022 3:43 PM EXTRUSION DIE COORDINATOR Patient notified and understands. USION DIE COORDINATOR * Telephone Encounter - Kay Jesus CMA - 07/24/2022 3:25 PM EXTRUSION DIE COORDINATOR ----- Message from Samantha Vargas PA-C sent at 07/24/2022 3:21 PM EXTRUSION DIE COORDINATOR ----- Biopsy returned showing an inflamed seborrheic keratosis, which is benign. Great news! USION DIE COORDINATOR documented in this encounter Plan of Treatment Not on file documented as of this encounter Visit Diagnoses Not on filedocumented in this encounter
--- OUTSIDE RECORDS SUMMARY | 2024-08-19 06:41 | XMS_ITS | Encounter Summary ---
Author Organization [facility] Address [address] [place] [address] Care Team Providers Care Oracle Consultant Name Role Phone Unavailable Primary Care Provider Unavailabl e Reason for Referral * Eval and Treat (Routine) - Closed Specialty Diagnoses / Procedures Referred By Contac t Referred To Contact Otolaryngology Diagnoses Cough Ciro Fernandez DO [address] [place] [address] [facility] [address] [place] [address] [address] [place] [address] Referral ID Status Reason Start Date Expiration Date V isits Requested Visits Authorized [id number] Closed CRS to Schedule 03/09/2022 03/09/2023 3 3 Reason for Visit * Reason Onset Date Comments cough over 8 month 03/09/2022 Encounter Details Date Type Department Care Team (Late Contact Info) Description 03/09/2022 Telephone [facility] Medicine - [address] [place] [address] Ciro Fernandez DO [address] [place] [address] cough over 8 month Social History Tobacco Use Types Packs/Day Years [...] Telephone Encounter - Kay Jesus CMA - 03/09/2022 12:48 PM CDT Referral placed for ENT. Notable Limited message sent. * Telephone Encounter - Samantha Vargas PA-C - 03/09/2022 12:06 PM CDT Would recommend ENT referral if he is declining follow up with us. * Telephone Encounter - Julieth Soliz - 03/09/2022 9:31 AM CDT Name of PCP Provider or Prescribing Provider: Ciro Fernandez, DO Next office visit: Visit date not found Caller:Brendon Aldana Message: Patient has had a cough , for 8 months or mother, this was before Covid.Mainly .when he talks, No shortness of breath, . It is a dry cough, he is using [employer] cough drops, no help,Tessalon Perles no help. Dr Dexter is aware. Please message back , in [facility] .He wants advice , no appointment, since he had seen Dr. Dexter for this Call back Number: [phone] documented in this encounter Plan of Treatment Scheduled Referrals Name Type Priority Associated Diagnoses Orde r Schedule AMB REFERRAL TO ENT Outpatient Referral Routine Cough Ordered: 03/09/2022 documented as of this encounter Visit Diagnoses Diagnosis Cough- Primary documented in this encounter
--- OUTSIDE RECORDS SUMMARY | 2024-08-19 06:41 | XMS_ITS | Encounter Summary ---
Author Organization [facility] Address [address] [place] [address] Care Team Providers Care Budget Engineer Name Role Phone Unavailable Primary Care Provider Unavailabl e Reason for Visit * Reason Comments Med Refill Encounter Details Date Type Department Care Team (Late st Contact Info) Description 03/28/2022 Refill [facility] Medicine - [facility] [address] [facility] [address] [place] [address] Ciro Fernandez, DO [address] [facility] [address] [place] [address] Social History Tobacco Use Types [...]
--- OUTSIDE RECORDS SUMMARY | 2024-08-19 06:41 | XMS_ITS | Encounter Summary ---
Author Organization [facility] Address [address] [place] [address] Care Team Providers Care Furnace Combustion Tester Name Role Phone Unavailable Primary Care Provider Unavailabl e Reason for Visit * Reason Onset Date Comments FYI- pressure in throat, cough, throat clearing 01/02/2022 Encounter Details Date Type Department Care Team (Late st Contact Info) Description 01/02/2022 Telephone [facility] Medicine - [facility] [address] [facility] [address] [place] [address] Ciro Fernandez, DO [address] [facility] [address] [place] [address] FYI- pressure in throat, cough, throat clearing Social History Tobacco Use Types Packs/Day Years [...] * Telephone Encounter - Marine Barrett - 01/02/2022 2:09 PM CDT Appt scheduled for 01/06 * Telephone Encounter - Kay Jesus CMA - 01/02/2022 12:44 PM CDT Please call patient and see if he would like to see Dr Fernandez next week. * Telephone Encounter - Fabiola Nance - 01/02/2022 12:11 PM CDT Name of PCP Provider or Prescribing Provider: Ciro Fernandez, DO Next office visit: Visit date not found Caller: Brendon Aldana Message: Patient called to schedule an apptmt for next week with PCP but none available. Patient described that after his Zyrtec wears off daily he feels pressure in his throat, sometimes coughs and feels like he needs to clear his throat. Patient declined seeing PA and will call back if symptoms do not improve or if they worsen Call back Number: [phone] (home) [phone] (work) no need to call at this time documented in this encounter Plan of Treatment Not on file documented as of this encounter Visit Diagnoses Not on filedocumented in this encounter
--- OUTSIDE RECORDS SUMMARY | 2024-08-19 06:41 | XMS_ITS | Encounter Summary ---
Author Organization [facility] Address [address] [place] [address] Care Team Providers Care Tightener Name Role Phone Unavailable Primary Care Provider Unavailabl e Reason for Visit * Reason Onset Date Comments Primary Care Outreach 11/04/2023 Encounter Details Date Type Department Care Team (Late st Contact Info) Description 11/04/2023 Telephone [facility] Medicine - [address] [place] [address] Ciro Fernandez, DO [address] [place] [address] Primary Care Outreach Social History Tobacco Use Types Packs/Day Years [...]
--- OUTSIDE RECORDS SUMMARY | 2024-08-19 06:41 | XMS_ITS | Encounter Summary ---
Author Organization [facility] Address [address] [place] [address] Care Team Providers Care Vp Software Engineering Name Role Phone Unavailable Primary Care Provider Unavailabl e Reason for Visit * Reason Onset Date Comments Medication Refill 07/14/2021 Encounter Details Date Type Department Care Team (Late st Contact Info) Description 07/14/2021 Refill [facility] Family Medicine - Bushra Yuan [address] [address] [place] [address] Ciro Fernandez, DO [address] [place] [address] Essential hypertension, benign Social History Tobacco Use Types Packs/Day Years [...] as of this encounter Visit Diagnoses Diagnosis Essential hypertension, benign documented in this encounter
--- OUTSIDE RECORDS SUMMARY | 2024-08-19 06:41 | XMS_ITS | Encounter Summary ---
Author Organization [facility] Address [address] [place] [address] Care Team Providers Care Waiter And Cashier Name Role Phone Unavailable Primary Care Provider Unavailabl e Reason for Visit * Reason Comments Medication Refill Encounter Details Date Type Department Care Team (Late st Contact Info) Description 10/29/2021 Refill [facility] Medicine - [facility] Abundio Yuan [address] [facility] [address] [place] [address] Ciro Fernandez, DO [address] [facility] [facility] [address] [place] [address] Cough Social History Tobacco Use Types Packs/Day [...] COVID-19? No / Unsure 10/10/2021 9:38 AM FINANCIAL OFFICER documented as of this encounter Plan of Treatment Not on file documented as of this encounter Visit Diagnoses Diagnosis Cough documented in this encounter
--- OUTSIDE RECORDS SUMMARY | 2024-08-19 06:41 | XMS_ITS | Encounter Summary ---
Author Organization [facility] Address [address] [place] [address] Care Team Providers Care Retail Support Manager Name Role Phone Ciro Fernandez DO Primary Care Provider [phone] Reason for Visit * Reason Comments Med Refill Encounter Details Date Type Department Care Team (Late st Contact Info) Description 03/07/[address] [facility] Family Medicine - [facility] Abundio Yuan [address] [facility] [address]und[address] [place] [address] Ciro Fernandez, [address] [facility] [address] [place] [address] Cough Social History Tobacco Use [...] * Telephone Encounter - Jennifer Long - 03/08/2023 11:03 AM CDT PT INFORMED/SK THEY ARE TRYING TO FIND A DOCTOR CLOSER TO HOME, (NOT WANTING TO LEAVE DR FERNANDEZ, BUT SINCE THEY AREOLDER, ARE GOING TO FIND SOMEONE) WILL LET US KNOW * Telephone Encounter - Domenic Bean - 03/08/2023 9:24 AM CDT Last fill 09/24/22 90 1 Last Ov 05/15/2022 Pt is over due for MWE/CCC please call to schedule. documented in this encounter Plan of Treatment Not on file documented as of this encounter Visit Diagnoses Diagnosis Cough documented in this encounter Care Teams Retail Support Manager Relationship Specialty Start Date End Date Ciro Fernandez DO PCP - General Family Practice 01/01/23 04/08/23 documented as of this encounter
--- OUTSIDE RECORDS SUMMARY | 2024-08-19 06:41 | XMS_ITS | Encounter Summary ---
Author Organization [facility] Address [address] [place] [address] Care Team Providers Care Delivery Specialist Name Role Phone Unavailable Primary Care Provider Unavailabl e Encounter Details Date Type Department Care Team (Late st Contact Info) Description 11/23/2023 External Device Data STL ABSTRACTION Provider, Abstract [...]
--- OUTSIDE RECORDS SUMMARY | 2024-08-19 06:41 | XMS_ITS | Encounter Summary ---
Author Organization [facility] Address [address] [place] [address] Care Team Providers Care Swatch Clerk Name Role Phone Inderjit Narayan DO Primary Care Provider + Reason for Visit * Auth/Cert (Routine) Specialty Diagnoses / Procedures Referred By Contac t Referred To Contact Perioperative Diagnoses History of colon polyps Procedures AR COLONOSCOPY FLX DX W/COLLJ SPEC WHEN PFRMD COLONOSCOPY Modesta Wise, DO [address] [address] [address] Referral ID Status Reason Start Date Expiration Date Visits Re quested Visits Authorized [id number] 1 1 Encounter Details Date Type Department Care Team (Late st Contact Info) Description 04/09/2023 9:15 AM CDT - 04/09/2023 9:45 AM CDT Surgery [address] [place] [address] Modesta Wise DO [address] [address] COLONOSCOPY Surgery Details Date/Time Status Location OR Service Patient Class Case Class Case Type Trauma Case? 04/09/2023 9:15 AM Posted [facility] GI 02 Gastroenterology Outpatient Elective No Panel 1 Procedure LRB Anes Op Region Wound Class Comments COLONOSCOPY N/A Monitored Anesthetic Care Anus Surgeon Surgeon Role Service Panel Modesta Wise, DO Primary Gastroenterology 1 documented in this encounter Social History Tobacco Use Types Packs/Day Years [...] Sign Reading Time Taken Comments Blood Pressure 125/68 04/09/2023 9:09 AM CDT Pulse 55 04/09/2023 9:09 AM CDT Temperature 36.3 ??C (97.3 ??F) 04/09/2023 9:09 AM CD T Respiratory Rate 18 04/09/2023 9:09 AM CDT Oxygen Saturation 96% 04/09/2023 9:09 AM CDT Inhaled Oxygen Concentration - - [...] 10/21/2022 Fluticasone Furoate (FLONASE SENSIMIST) 27.5 mcg/actuation Laura, Suspension Administer 2 Sprays in each nostril daily. 1 Gram 4 10/21/2022 losartan (COZAAR) 50 mg tablet Take 1 Tablet (50 mg) by mouth daily. 90 Tablet 3 09/24/2022 simvastatin (ZOCOR) 40 mg tabletIndications:Pure hypercholesterolemia Take 1 Tablet (40 mg) by mouth late in the day. 90 Tablet 3 09/16/2022 sod bicarb-sod chlor-neti pot (Lesage Saline Nasal Neti Rinse) packet with rinse [...] from the original note were not included. STL CONRADO Routine Pre-Anesthesia Protocol for GI Lab Procedures [facility] Approved by: [facility]-Medical Executive Committee Approval Date: 12/22/2022 ORDERS ARE ENTERED ???PER PROTOCOL?? Enter the protocol in the patient???s electronic health record using smartphrase: .anestprotocolgilab Nursing Orders: Monitoring Obtain and record vital signs on admission to [facility] Continuous vital signs (Non-invasive blood pressure, pulse [...] appropriate, may confirm POC with: Nursing Only [id number] (this lab can be obtained at no cost to the patient when confirming a critical high or Critical low POC glucose. See hypoglycemia protocol for additional orders if needed: [facility] ANE Adult Perianesthesia HYPOglycemia Protocol Notify any [...] unable to obtain urine, may obtain serum [id number]) All patients with potential for childbearing (menarche [...] eczema, due to unspecified cause Essential hypertension LUMMI (hard of hearing) Hyperlipidemia Hypertension Motion sickness Past Surgical History: Procedure Laterality Date HX HEART CATHETERIZATION 1992 HX SURGICAL OTHER as an Removed blood clot from brain HX VASECTOMY 1980 AR COLONOSCOPY FLX DX W/COLLJ SPEC WHEN PFRMD 01/12/2014 COLONOSCOPY performed by Modesta Wise DO at [facility] GI LAB AR COLONOSCOPY FLX DX W/COLLJ SPEC WHEN PFRMD N/A 09/01/2019 COLONOSCOPY performed by Modesta Wise DO at [facility] GI LAB AR SURGICAL ARTHROSCOPY SHOULDER W/ROTATOR CUFF RPR Right 09/30/2018 RIGHT SHOULDER SCOPE W ROTATOR CUFF REPAIR, SUBACROMIAL DECOMPRESSION, W EXTENSIVE DEBRIDEMENT performed by Nehemiah Castellano MD at [facility] CC OR Medications Prior to Admission Medication Sig Dispense Refill Last Dose montelukast (SINGULAIR) 10 mg tablet TAKE 1 TABLET BY MOUTH EVERYDAY AT BEDTIME 90 Tablet 1 04/08/2023 cetirizine-pseudoephedrine sr 12 hour (ZyrTEC-D) 5-120 mg tablet Take 1 Tablet by mouth 2 times daily. 72 Tablet 5 04/08/2023 Fluticasone Furoate (FLONASE SENSIMIST) 27.5 mcg/actuation Laura, Suspension Administer 2 Sprays ineach nostril daily. [...] 28 Tablet 0 sod bicarb-sod chlor-neti pot (Lesage Saline Nasal Neti Rinse) packet with rinse [...] 04/09/2023 10:14 AM CDTAssociated Order(s): COLONOSCOPY REPORT [facility] Endoscopy Patient Name: Brendon Aldana Procedure Date: [...] Addenda: 0 Procedure Date: 04/09/2023 9:32:[address] [facility] [address] [place] [address] * Amparo Ibarra RN - 03/16/2023 12:32 [...] * Screen for colon cancer [Z12.11] Location: [facility] Referring Physician: Ciro Fernandez Patient's BMI: Body mass index is 28.03 kg/m??. Is patient a candidate for offsite location? yes Medications Type of prep given: Instructions sent via: Email Anticoagulants: no Relevant prior procedure/pathology: Procedure: COLON Physician: MR Date: 09/01/2019 Location: [facility] Last Pathology: FINAL DIAGNOSIS Large bowel, hepatic flexure polyps, polypectomy: -Tubular adenomas. Past Surgical History: Past Surgical History: Procedure Laterality Date HX HEART CATHETERIZATION 1992 HX SURGICAL OTHER as an Removed blood clot from brain HX VASECTOMY 1980 AR COLONOSCOPY FLX DX W/COLLJ SPEC WHEN PFRMD 01/12/2014 COLONOSCOPY performed by Modesta Wise DO at [facility] GI LAB AR COLONOSCOPY FLX DX W/COLLJ SPEC WHEN PFRMD N/A 09/01/2019 COLONOSCOPY performed by Modesta Wise DO at [facility] GI LAB AR SURGICAL ARTHROSCOPY SHOULDER W/ROTATOR CUFF RPR Right 09/30/2018 RIGHT SHOULDER SCOPE W ROTATOR CUFF REPAIR, SUBACROMIAL DECOMPRESSION, W EXTENSIVE DEBRIDEMENT performed by Nehemiah Castellano MD at [facility] CC OR Past Medical History: Past Medical History: Diagnosis Date Community acquired pneumonia Contact dermatitis and other eczema, due to unspecified cause Essential hypertension LUMMI (hard of hearing) Hyperlipidemia Hypertension Motion sickness No current facility-administered medications on file prior to encounter. Current Outpatient Medications on File Prior to Encounter Medication Sig Dispense Refill cetirizine-pseudoephedrine sr 12 hour (ZyrTEC-D) 5-120 mg tablet Take 1 Tablet by mouth 2 times daily. 72 Tablet 5 Fluticasone Furoate (FLONASE SENSIMIST) 27.5 mcg/actuation Laura, Suspension Administer 2 Sprays ineach nostril daily. [...] 28 Tablet 0 sod bicarb-sod chlor-neti pot (Lesage Saline Nasal Neti Rinse) packet with rinse [...] of colon Diverticulosis Screen for colon cancer AR COLONOSCOPY FLX DX W/COLLJ SPEC WHEN PFRMD 04/09/2023 9:15 AM CDT History of colon polyps Polyp of hepatic flexure of colon Diverticulosis Screen for colon cancer documented in this encounter Results * COLONOSCOPY REPORT (04/09/2023 10:14 AM CDT) Narrative Procedure Note Modesta Wise DO - 04/09/2023 10:14 AM CDT [facility] Endoscopy Patient Name: Brendon Aldana Procedure Date: [...] Addenda: 0 Procedure Date: 04/09/2023 9:32:32 AM [address] [address] Modesta Wise DO GI PROCEDURE ORDERA BLES * PATHOLOGY (04/09/2023 10:00 AM CDT) CASE REPORT Surgical Pathology Report ? Case: [id number] ? Authorizing Provider: ??Modesta Wise, DO ? Collected: ? 04/09/2023 10:00 AM ? Ordering Location: ? [facility] Endoscopy ?? Received: ?04/09/2023 03:02 PM ? [facility] ? Pathologist: ? Kevin Romero, DO ? Specimen: ?Colon, transverse, polyps ? 3 4:52 PM T [facility] FINAL DIAGNOSIS Large bowel, transverse colon polyp, polypectomy: - Tubular adenoma. 3 4:52 PM T [facility] S DESCRIPTION Received in one container labeled Brendon Aldana and transverse colon polyp is 1 piece of red-pate tissue measuring 0.6 x 0.3 x 0.1 cm. It is entirely submitted in cassette A1. EL 3 4:52 PM [facility] MICROSCOPIC DESCRIPTION The slides are labeled [id number] and Brendon Aldana. Sections of the transverse colon polyp show a tubular adenoma. No high-grade dysplasia or invasive carcinoma is identified. 3 4:52 PM [facility] OPERATIVE PROCEDURE 1: COLONOSCOPY 3 4:52 PM [facility] CLINICAL INFORMATION A Colon Polyp(s). Adenomatous vs hyperplastic vs other. Colon Polyp(s). Adenomatous vs hyperplastic vs other. hx polyps K63.5 (ICD-10-CM) - 211.3 (ICD-9-CM) - Polyp of hepatic flexure of colon K57.90 (ICD-10-CM) - 562.10 (ICD-9-CM) - Diverticulosis screening Z86.010-History of colon polyps K63.5-Polyp of hepatic flexure of colon K57.90-Diverticulosis Z12.11-Screen for colon cancer 3 4:52 PM [facility] COMMENT Special stain, immunohistochemical, and/or in situ hybridization results are interpreted with controls that demonstrate appropriate staining reactions. Note on use of immunohistochemistry reagents and in situ hybridization probes: These tests were developed and their performance characteristics determined by [facility], Department of Laboratory Medicine. It has not [...] part or completely in the following laboratories: [facility], [place] #[id number] [address] [place] [address] [facility], [place] #[id number] [address] [place] [address] [id number] [address] [place] [address] This report was created with the [employer] voice-activated dictation system. Inherent to this system is the possibility of syntax, grammar, punctuation and other errors that could impact the interpretation of the report. If there are interpretative questions about aspects of this report, please contact the performing pathologist. 3 4:52 PM CDT [facility] Tissue TRANSVERSE COLON STRUCTURE / Unknown Collection / Unknown 04/09/2023 10:00 AM CDT 04/09/2023 3:02 PM CDT Comment:Colon Polyp(s). Pj omatous vs hyperplastic vs other. Modesta Wise DO PATHOLOGY/CYTOLOGY ORDERABLES Performing Organization Address City/State/[facility] Co de Phone Number [facility]# [id number] [address] [place] [place] [address] documented in this encounter Visit Diagnoses Diagnosis History of colon polyps Personal history of colonic polyps Polyp of hepatic flexure of colon Diverticulosis Diverticulosis of colon (without mention of hemorrhage) Screen for colon cancer Special screening for malignant neoplasms, colon History of colon polyps Personal history of [...] 0915, Until Wed04/09/23 at 1253, Routine, Pre-Procedure 0916 (New Bag - Prov ider: Ni García RN)0943 (Continue from Pre-Op - Provider: Kim Singh CRNA)1001 (Fluid Volume - Provider: Kim Singh CRNA)1011 (Stopped - Provider: Mercedez Vu RN) documented in this encounter Care Teams Swatch Clerk Relationship Specialty Start Date End Date Inderjit Narayan DO [address] [place] [phone] PCP - General Family Practice 04/09/23 08/29/23 documented as of this encounter
--- OUTSIDE RECORDS SUMMARY | 2024-08-19 06:41 | XMS_ITS | Encounter Summary ---
Author Organization [facility] Address [address] [place] [address] Care Team Providers Care Aerospace Control And Warning Systems Name Role Phone Inderjit Narayan DO Primary Care Provider + Reason for Visit * Reason Comments Med Refill Encounter Details Date Type Department Care Team (Late st Contact Info) Description 08/28/2023 Refill [facility] Family Medicine - Bushra Yuan [address] [facility] Abundio [address] [place] [address] Ciro Fernandez DO [address] [facility] [address] [place] [address] Pure hypercholesterolemia Social History Tobacco Use Types Packs/Day Years [...] of this encounter Visit Diagnoses Diagnosis Pure hypercholesterolemia documented in this encounter Care Teams Aerospace Control And Warning Systems Relationship Specialty Start Date End Date Inderjit Narayan DO [address] [place] [address] PCP - General Family Practice 04/09/23 08/29/23 documented as of this encounter
--- OUTSIDE RECORDS SUMMARY | 2024-08-19 06:41 | XMS_ITS | Encounter Summary ---
Author Organization [facility] Address [address] [place] [address] Care Team Providers Care Engineering Psychologist Name Role Phone Inderjit Narayan DO Primary Care Provider + Encounter Details Date Type Department Care Team (Late st Contact Info) Description 07/23/2023 External Device Data STL ABSTRACTION Provider, Abstract [...] on filedocumented in this encounter Care Teams Engineering Psychologist Relationship Specialty Start Date End Date Inderjit Narayan DO [address] [place] [phone] PCP - General Family Practice 04/09/23 08/29/23 documented as of this encounter
--- OUTSIDE RECORDS SUMMARY | 2024-08-19 06:41 | XMS_ITS | Encounter Summary ---
Author Organization [facility] Address [address] [place] [address] Care Team Providers Care Court Orderly Name Role Phone Unavailable Primary Care Provider Unavailabl e Reason for Visit * Reason Comments Moles Encounter Details Date Type Department Care Team (Latest Contact Info) Description 07/21/2022 1:00 PM [employer] Procedure visit [facility] Medicine - [facility] Kwabena [address] [facility] [address] [place] [address] Ciro Fernandez, DO [address] [facility] [address] [place] [address] Neoplasm of uncertain behavior (Primary Dx) Social History Tobacco Use Types [...] In the last 10 days, have malcolm collier been in contact with someone who was confirmed or suspected to have Coronavirus/COVID-19? No / Unsure 07/21/2022 12:41 PM [employer] documented as of this encounter Last Filed Vital Signs Vital Sign Reading Time Taken Comments Blood Pressure 148/70 07/21/2022 1:12 PM [employer] Pulse - - Temperature 36.1 ??C (97 ??F) 07/21/2022 1:12 PM [employer] Respiratory Rate - - Oxygen Saturation - - Inhaled Oxygen Concentration - - Weight 94.6 kg (208 lb 9.6 oz) 07/21/2022 1:12 P M [employer] Height 180.3 cm (5' 11 ) 07/21/2022 1:12 PM [employer] Body Mass Index 29.09 07/21/2022 1:12 PM [employer] documented in this encounter Progress Notes * Ciro Fernandez, - 07/21/2022 1:08 PM CST SUBJECTIVE: Brendon Aldana is a 72 y.o. male who presents for lesion removal. We have discussed this procedure, including option of not performing surgery, technique of surgery and potential for scarring today. Skin lesion on his left cheek that has been growing pretty rapidly over the last several weeks. OBJECTIVE: Patient appears well. Blood pressure (!) 148/70, temperature 97 ??F (36.1 ??C), temperature source Temporal, height 5' 11 (1.803 m), weight 94.6 kg (208 lb 9.6 oz). Skin: Verrucous neoplasm left cheek, base of the verrucous has some erythema. No signs of secondaryinfection. S1 and S2 normal, no murmurs. Regular rate and rhythm. Chest is clear Psych: Appropriate. ASSESSMENT/PLAN: Brendon was seen today for moles. Diagnoses and all orders for this visit: Neoplasm of uncertain behavior - PATHOLOGY; Future - LA TANGENTIAL BIOPSY SKIN SINGLE LESION Discussed Risks, Benefits and Alternatives of the current treatment regimen. Call or return to the office if these symptoms worsen or fail to improve as anticipated. PROCEDURE: Assisted by TAMIKA Mcleod After informed consent was obtained: Site: Left cheek Using chlorohexidine for cleansing and Lidocaine (XYLOCAINE) 1% with Epinephrine 1:100,000 for anesthetic, with sterile technique, shave biopsy was performed. The procedure was well tolerated without complications. Dressing is applied, and wound care instructions provided. Be alert for any signs of cutaneous infection. Follow up: the specimen is labeled and sent to pathology for evaluation, the patient may return prn. [employer] documented in this encounter Plan of Treatment Not on file documented as of this encounter Procedures Procedure Name Priority Date/Time Associated Diagnosis Comments PATHOLOGY Routine 07/21/2022 1:20 PM [employer] Neoplasm of uncertain behavior documented in this encounter Results * PATHOLOGY (07/21/2022 1:20 PM [employer]) CASE REPORT Surgical Pathology Report ? Case: [id number] ? Authorizing Provider: ??Ciro Fernandez DO ?Collected: ? 07/21/2022 01:20 PM ? Ordering Location: ? [facility] ?Received: ?07/23/2022 11:04 AM ? [facility] ? 140 ? Pathologist: ? Vivi Dykes MD ? Specimen: ?Cheek, left ? 2 3:09 PM [facility] FINAL DIAGNOSIS Skin, left cheek, shave biopsy: - Seborrheic keratosis, inflamed. 2 3:09 PM [facility] S DESCRIPTION Received in one container labeled Brendon Aldana and left cheek is a 0.6 x 0.5 cm shave of wooten-pate skin. The skin surface displays a 0.5 x 0.3 x 0.2 cm raised wooten-brown lesion located less than 0.1 cm from the nearest skin edge. The margin is inked blue. The tissue is bisected and entirely submitted in cassette A1. Per the specimen problem report and collectors affidavit: Specimen container was originally received unlabeled. The correct patient identifiers were confirmed by a clearance representative from the department. [facility] 2 3:09 PM [facility] MICROSCOPIC DESCRIPTION The slides are labeled [id number] and Brendon Aldana. Histologic sections of skin from the left cheek reveal a seborrheic keratosis characterized by epidermal papillomatosis, acanthosis, horn pseudocyst formation, and an area with basilar hyperpigmentation. There is no significant keratinocytic atypia. Part of the lesion surface appears verrucoid and pedunculated. There is chronic inflammation and vascular ectasia in the stroma, in a background of marked solar elastosis. 2 3:09 PM [facility] OPERATIVE PROCEDURE Not stated 2 3:09 PM [facility] CLINICAL INFORMATION D48.9 - Neoplasm of uncertain behavior [ICD-10-CM] 2 3:09 PM [facility] COMMENT Special stain, immunohistochemical, and/or in situ hybridization results are interpreted with controls that demonstrate appropriate staining reactions. Note on use of immunohistochemistry reagents and in situ hybridization probes: These tests were developed and their performance characteristics determined by [facility] Department of Laboratory Medicine. It has not [...] part or completely in the following laboratories: [facility], [place] #[id number] [address] [place] [address] [facility] #[id number] [address] [place] [address] [facility]/[place], [place] #[id number] [address] [place] [address] This report was created with the [employer] voice-activated dictation system. Inherent to this system is the possibility of syntax, grammar, punctuation and other errors that could impact the interpretation of the report. If there are interpretative questions about aspects of this report, please contact the performing pathologist. 2 3:09 PM [facility] Tissue CHEEK STRUCTURE / Unknown 07/21/2022 1:20 PM [employer] 07/23/2022 11:04 AM [employer] Ciro Fernandez DO PATHOLOGY/CYTOLOGY [facility]# [id number] [address] [place] [address] documented in this encounter Visit Diagnoses Diagnosis Neoplasm of uncertain behavior- Primary Neoplasm of uncertain behavior, site unspecified documented in this encounter
--- OUTSIDE RECORDS SUMMARY | 2024-08-19 06:41 | XMS_ITS | Encounter Summary ---
Author Organization [facility] Address [address] [place] [address] Care Team Providers Care Business Controller Name Role Phone Unavailable Primary Care Provider [...]
--- OUTSIDE RECORDS SUMMARY | 2024-08-19 06:41 | XMS_ITS | Encounter Summary ---
Author Organization [facility] Address [address] [place] [address] Care Team Providers Care Cement Worker Name Role Phone Unavailable Primary Care Provider Unavailabl e Encounter Details Date Type Department Care Team (Late st Contact Info) Description 10/14/2023 External Device Data STL ABSTRACTION Provider, Abstract [...]
--- OUTSIDE RECORDS SUMMARY | 2024-08-19 06:41 | XMS_ITS | Encounter Summary ---
Author Organization [facility] Address [address] [place] [address] Care Team Providers Care Image Scientist Name Role Phone Unavailable Primary Care Provider Unavailabl e Encounter Details Date Type Department Care Team (Late st Contact Info) Description 12/28/2023 External Device Data STL ABSTRACTION Provider, Abstract [...]
--- OUTSIDE RECORDS SUMMARY | 2024-08-19 06:41 | XMS_ITS | Encounter Summary ---
Author Organization [facility] Address [address] [place] [address] Care Team Providers Care Case Management Specialist Name Role Phone Unavailable Primary Care Provider Unavailabl e Reason for Visit * Reason Onset Date Comments Results 05/20/2022 Urine clx Encounter Details Date Type Department Care Team (Late st Contact Info) Description 05/20/2022 Telephone [facility] Family Medicine - Bushra [address] [place] [address] Ciro Fernandez, DO [address] [place] [address] Results (Urine clx ) Social History Tobacco Use Types Packs/Day [...] encounter Miscellaneous Notes * Telephone Encounter - Shani Jo - 05/20/2022 3:16 PM CDT Spoke to patient to advise Dr. Fernandez sent out Levaquin to the pharmacy, he accepts. Patient advisedmedication can cause Gi upset so to take with food. Also advised of tendon rupture issues and to avoid strenuous activity while on medication he accepts. Patient advised if still with sx after takingthe antibiotic to update the office for further evaluation. * Telephone Encounter - Shani Jo - 05/20/2022 2:05 PM CDT Spoke to patient to advise of his normal urine clx results, he accepts. He states his sx are the same as at his visit on Wednesday not any worse but definitely not better. States he would like further recommendations. * Telephone Encounter - Shani Jo - 05/20/2022 8:42 AM CDT ----- Message from Ciro Fernandez DO sent at 05/20/2022 8:37 AM CDT ----- Urine culture showed no bacteria. How are your symptoms? documented in this encounter Plan of Treatment Not on file documented as of this encounter Visit Diagnoses Diagnosis Prostatitis, unspecified prostatitis type- Primary documented in this encounter
--- OUTSIDE RECORDS SUMMARY | 2024-08-19 06:41 | XMS_ITS | Encounter Summary ---
Author Organization [facility] Address [address] [place] [address] Care Team Providers Care Regional Safety Manager Name Role Phone Unavailable Primary Care Provider Unavailabl e Reason for Visit * Reason Onset Date Comments Results 09/29/2021 Needs Appointment 09/29/2021 Encounter Details Date Type Department Care Team (Late st Contact Info) Description 09/29/2021 Telephone [facility] Family Medicine - [facility] Abundio Yuan [address] [place] [address] Ciro Fernandez DO [address] [facility] [address] [facility] [address] [place] [address] Results; Needs Appointment Social History Tobacco Use Types Packs/Day Years [...] * Telephone Encounter - Jennifer Long - 09/29/2021 1:50 PM CST Pt informed/sk ERCIAL DRAFTER * Telephone Encounter - Leslie Reid - 09/29/2021 8:04 AM CST ----- Message from Ciro Fernandez DO sent at 09/28/2021 9:20 AM COMMERCIAL DRAFTER ----- Your laboratory studies have been received and are overall normal. It is just time to schedule yourphysical and we will discuss further at your Well Adult Exam. ERCIAL DRAFTER documented in this encounter Plan of Treatment Not on file documented as of this encounter Visit Diagnoses Not on filedocumented in this encounter
--- OUTSIDE RECORDS SUMMARY | 2024-08-19 06:41 | XMS_ITS | Encounter Summary ---
Author Organization [facility] Address [address] [place] [address] Care Team Providers Care Director Machine Name Role Phone Unavailable Primary Care Provider Unavailabl e Reason for Visit * Reason Comments Medication Refill Encounter Details Date Type Department Care Team (Late st Contact Info) Description 07/10/2021 Refill [facility] Medicine - Bushra Yuan [address] [facility] [address] [place] [address] Ciro Fernandez, DO [address] [facility] [address] [place] [address] Social History Tobacco Use Types [...]
--- OUTSIDE RECORDS SUMMARY | 2024-08-19 06:41 | XMS_ITS | Encounter Summary ---
Author Organization [facility] Address [address] [facility] Attn: Epic Prelude ADT [place]AYE [place] [address] Care Team Providers Care Blocking Machine Tender Name Role Phone Unavailable Primary Care Provider Unavailabl e Encounter Details Date Type Department Care Team (Latest Contact Info) Description 10/21/2022 Travel Social History Tobacco Use Types Packs/Day [...] suspected to have Coronavirus/COVID-19? No / Unsure 10/21/2022 1:17 PM CDT documented as of this encounter Plan of Treatment Not on file documented as of this encounter Visit Diagnoses Not on filedocumented in this encounter
--- OUTSIDE RECORDS SUMMARY | 2024-08-19 06:41 | XMS_ITS | Encounter Summary ---
Author Organization [facility] Address [address] [facility] Attn: Epic Prelude ADT [place] [address] Care Team Providers Care Construction Flagger Name Role Phone Unavailable Primary Care Provider Unavailabl e Encounter Details Date Type Department Care Team (Latest Contact Info) Description 11/26/2022 Travel Social History Tobacco Use Types Packs/Day [...]
--- OUTSIDE RECORDS SUMMARY | 2024-08-19 06:41 | XMS_ITS | Encounter Summary ---
Author Organization [facility] Address [address] [place] [address] Care Team Providers Care House Builder Name Role Phone Unavailable Primary Care Provider Unavailabl e Encounter Details Date Type Department Care Team (Late st Contact Info) Description 09/27/2023 External Device Data STL ABSTRACTION Provider, Abstract [...]
--- OUTSIDE RECORDS SUMMARY | 2024-08-19 06:41 | XMS_ITS | Encounter Summary ---
Author Organization [facility] Address [address] [place] [address] Care Team Providers Care Account Classification Clerk Name Role Phone Unavailable Primary Care Provider Unavailabl e Encounter Details Date Type Department Care Team (Late st Contact Info) Description 09/01/2023 External Device Data STL ABSTRACTION Provider, Abstract [...]
--- OUTSIDE RECORDS SUMMARY | 2024-08-19 06:41 | XMS_ITS | Encounter Summary ---
Author Organization [facility] Address [address] [place] [address] Care Team Providers Care Integration Manager Name Role Phone Unavailable Primary Care Provider Unavailabl e Reason for Referral * CT Scan (Routine) - Closed Specialty Diagnoses / Procedures Referred By Contac t Referred To Contact Radiology Diagnoses Chronic pansinusitis Procedures CT [facility] PROTOCOL Kam Cardona MD [address] [facility] [address] [place] [address] [facility] Ct Scan [address] [place] [address] Referral ID Status Reason Start Date Expiration Date Visits Re quested Visits Authorized [id number] Closed 10/21/2022 11/21/2023 1 1 Reason for Visit * Reason Comments Sinus Problem * Eval and Treat (Routine) - Closed Specialty Diagnoses / Procedures Referred By Contac t Referred To Contact Otolaryngology Diagnoses Cough Ciro Fernandez, DO [address] [place] [address] [facility] [place] [address] [place] [address] Referral ID Status Reason Start Date Expiration Date V isits Requested Visits Authorized [id number] Closed CRS to Schedule 03/09/2022 03/09/2023 3 3 Encounter Details Date Type Department Care Team (Late st Contact Info) Description 10/21/2022 1:40 PM CDT Office Visit [facility] [place] [facility] [address] [facility] [address] [place] [address] [place] [address] [address] [place] [address] Chronic pansinusitis (Primary Dx); Non-seasonal allergic rhinitis due to other allergic trigger; Chronic cough; Gastroesophageal reflux disease without esophagitis Social History Tobacco Use Types Packs/Day Years Used Date Smoking Tobacco: Never Tobacco Cessation:Counseling Given: Not Answered Alcohol Use Standard Drinks/Week Comments Not Asked [...] Sign Reading Time Taken Comments Blood Pressure 131/74 10/16/2022 10:[address] RADIO TECHNICIAN Pulse - - Temperature - - Respiratory Rate 16 10/16/2022 10:[address] RADIO TECHNICIAN Oxygen Saturation - - Inhaled Oxygen Concentration - - Weight 89.8 kg (198 lb) 10/16/2022 10:[address] RADIO TECHNICIAN Height 180.3 cm (5' 11 ) 10/16/2022 10:[address] RADIO TECHNICIAN Body Mass Index 27.62 10/16/2022 10:[address] RADIO TECHNICIAN documented in this encounter Progress Notes * Kam Cardona MD - 10/16/2022 10:08 AM CST Otolaryngology-Head and Neck Surgery New Patient Note Subjective: Reason for visit: Sinus Problem HPI: Brendon Aldana is a 72 y.o. male presents with sinus concerns. Reports long-standing chronic cough for 1.5 years though improved 6 months ago. He was experiencing post nasal drainage more recently. He does mention nasal congestion, and often clearing thick nasal drainage. He also perceives chronic PND. Reports improvement with antibiotic course in September (Doxycycline). Other antibiotic this past year have included Augmentin and Levaquin. He uses zyrtec in the morning and zyrtec pm at night. Outside records reviewed: PCP OV note from 07/21/22 Past Medical History: Diagnosis Date Community acquired pneumonia Contact dermatitis and other eczema, due to unspecified cause Essential hypertension [place] (hard of hearing) Motion sickness Current Outpatient Medications on File Prior to Visit Medication Sig Dispense Refill simvastatin (ZOCOR) 40 mg tablet Take 1 Tablet (40 mg) by mouth late in the day. 90 Tablet 3 montelukast (SINGULAIR) 10 mg tablet Take 1 Tablet (10 mg) by mouth daily at bedtime. 90 Tablet 1 losartan (COZAAR) 50 mg tablet Take 1 Tablet (50 mg) by mouth daily. 90 Tablet 3 sod bicarb-sod chlor-neti pot ([place] Saline Nasal Neti Rinse) packet with rinse device 1 Dose Pack bysinus irrigation route 2 times daily. ZyrTEC-D 5-120 mg tablet TAKE 1 TABLET BY MOUTH TWICE A DAY 72 Tablet 5 OMEPRAZOLE ORAL Take by mouth. Cholecalciferol, Vitamin D3, (VITAMIN D3) 2,000 unit Capsule Take 1 Cap by mouth daily. UBIDECARENONE (CO Q-10 ORAL) Take by mouth. No current facility-administered medications on file prior to visit. Allergies Allergen Reactions Methylprednisolone Rash and Other (See Comments) Sulfamethoxazole-Trimethoprim Rash Social History Tobacco Use Smoking status: Never Vaping Use Vaping Use: Never used TOBACCO COUNSELING He is not a tobacco user. Objective: Physical Exam: BP 131/74 Resp 16 Ht 5' 11 (1.803 m) Wt 89.8 kg (198 lb) BMI 27.62 kg/m?? General Appearance: Well-developed well-nourished person in no acute distress. Voice: Normal in production and quality. Neuro: Alert and oriented to person place time and purpose of visit. Pleasant affect. Resp: Normal volume of ventilation. No evidence of wheezes. Head/Face Inspection: No abrasions, bruising, or cutaneous lesions. No asymmetry is noted. Palpation: No tenderness to palpation of the sinuses. No subcutaneous masses. Eye Movements: Extraocular movements are intact. There is no diplopia. There is no nystagmus. Salivary Glands: No tenderness induration or masses palpated. Expressible saliva is clear. Facial Strength: Symmetric and normal bilaterally. No evidence of a synkinesis. Ears External Pinna: No cutaneous lesions, normal shape, nontender. External ear canals: Right: patent Left: patent Tympanic membrane and middle ear space: Right: normal landmarks and mobility Left: normal landmarks and mobility Nose External: The dorsum is midline. There are no abnormalities of the lower cartilages. Internal: The septum is midline. Mucosa is normal in appearance. The turbinates show moderate edema Oral Cavity and Oropharynx Lips, Teeth, and Gingiva: No mucosal lesions of the lips or buccal mucosa. No gingival masses. Oral Cavity: Anterior tongue, floor of mouth and palate normal. Oropharynx: Normal posterior pharyngeal mucosa. Base of tongue normal. Neck Adenopathy: No abnormal lymph nodes in the jugular chain, the accessory chain, or the supraclavicular fossa. No masses Thyroid: Symmetric and barely palpable. Larynx: Midline with normal landmarks Labs reviewed: Lab Results Component Value Date/Time NA 138 04/25/2022 12:00 AM K 4.7 04/25/2022 12:00 AM CL 103 04/25/2022 12:00 AM CO2 27 04/25/2022 12:00 AM CA 9.4 04/25/2022 12:00 AM BUN 11 04/25/2022 12:00 AM CREAT 0.87 04/25/2022 12:00 AM GLUCOSE 102 (H) 04/25/2022 12:00 AM ANIONGAP 14 09/14/2018 04:07 PM BCRATIO NOT APPLICABLE 04/25/2022 12:00 AM Lab Results Component Value Date/Time WBC 7.5 11/01/2018 02:08 AM HGB 15.0 11/01/2018 02:08 AM HCT 44.1 11/01/2018 02:08 AM PLT 264 11/01/2018 02:08 AM MCV 89.5 11/01/2018 02:08 AM Assessment and Plan Reviewed history and exam findings, which is consistent with chronic sinusitis. Will treat with extended antibiotic course. He completed an oral steroid taper within the last month. Will obtain post-treatment CT to further characterize chronic sinus disease. For rhinitis, recommend alternative nasal steroid spray (Sensimist) and nasal saline irrigation. Continue current medical regimen for GERD. Will contact with results of imaging. Further recommendations to follow. ICD-10-CM ICD-9-CM 1. Chronic pansinusitis J32.[address] SINUS [facility] PROTOCOL 2. Non-seasonal allergic rhinitis due to other allergic trigger J30.89 477.8 3. Chronic cough R05.3 786.2 4. Gastroesophageal reflux disease without esophagitis K21.9 530.81 Kam Cardona MD documented in this encounter Miscellaneous Notes * Patient Instructions - Kam Cardona MD - 10/21/2022 2:00 PM CDT Recommend use of NeilMed sinus rinse (2-3 times per week). Fill bottle with distilled water and dissolve saline packet prior to use. documented in this encounter Plan of Treatment Not on file documented as of this encounter Results * CT SINUS STEALTH PROTOCOL (11/26/2022 3:00 PM CDT) Anatomical Region Laterality Modality Head Computed Tomogra phy 11/26/2022 3:26 PM CDT Impressions 11/26/2022 3:59 PM CDT IMPRESSION: 1. ??Acute on chronic left maxillary sinusitis DICTATION LOCATION: Location 1 - [facility] Narrative 11/26/2022 3:59 PM [...] maxillary sinusitis DICTATION LOCATION: Location 1 - [facility] Kam Cardona MD CT ORDERABLES documented in this encounter Visit Diagnoses Diagnosis Chronic pansinusitis- Primary Other chronic sinusitis Non-seasonal allergic rhinitis due to other allergic trigger Chronic cough Cough Gastroesophageal reflux disease without esophagitis Esophageal reflux Chronic pansinusitis Other chronic sinusitis documented in this encounter
--- OUTSIDE RECORDS SUMMARY | 2024-08-19 06:41 | XMS_ITS | Encounter Summary ---
Author Organization [facility] Address [address] [place] [address] Care Team Providers Care Patrol Mother Name Role Phone Inderjit Narayan DO Primary Care Provider + Reason for Visit * Auth/Cert (Routine) Specialty Diagnoses / Procedures Referred By Georgie gallagher Referred To Contact Perioperative Diagnoses History of colon polyps Procedures CO COLONOSCOPY FLX DX W/COLLJ SPEC WHEN PFRMD COLONOSCOPY Modesta Wise DO [address] [address] [address] Referral ID Status Reason Start Date Expiration Date Visits Re quested Visits Authorized [id number] 1 1 Encounter Details Date Type Department Care Team (Late st Contact Info) Description 04/09/2023 9:43 AM CDT Anesthesia Event [address] [place] [address] Lorenzo Rangel MD [address] [place] [address] Anesthesia Record Procedure Summary Procedure Name Responsible Anesthesiologist Anesthesia Start Time Anesthesia Stop Time COLONOSCOPY (Anus) Lorenzo Rangel MD 04/09/23 0943 04/09/23 1006 Events Date Time Event Comment 04/09/2023 0911 0940 AN Equip Check Anesthesia eq uipment and materials checked in accordance with local policy. 0943 In Room This event disp lays the In Room time documented in the Surgical Log. Deleting this event will not remove it from the log but will remove it from the Grid and Graph timeline. 0943 An Start 0943 An Start Data 0943 Pre-Induction Immediate pre- induction anesthetic assessment performed. Vital signs as noted on graphic. 0946 An Induction 0946 Anesthesia Ready 0948 Procedure Start This event d isplays the Procedure Start time documented in the Surgical Log. Deleting this event will not remove it from the log but will remove it from the Grid and Graph timeline. 1000 Procedure Stop This event di splays the Procedure Stop time documented in the Surgical Log. Deleting this event will not remove it from the log but will remove it from the Grid and Graph timeline. 1004 an stop data 1006 An Stop 1006 Out of Room This event disp lays the Out of Room time documented in the Surgical Log. Deleting this event will not remove it from the log but will remove it from the Grid and Graph timeline. Meds Name Total lidocaine PF (XYLOCAINE MPF) 20 mg/mL sy ringe 60 mg propofol (DIPRIVAN) 10??mg/mL injection 310 mg lactated ringers infusion 600 mL * Agents Name O2 * Blood No blood administrations on file. Lines, Drains, and Airways Type Details Placement Removal Wound 09/30/18; 0952; No; 1; Right; shoulder; surgical 09/30/18 0952 by Erna Walker RN Peripheral IV Orientation: Left; Location: Hand; Device: Angiocath; Gauge: 20 gauge; Needle Length: 1 in length; Insertion Attempts: 1; Patient Tolerance: tolerated well 09/01/19 0743 by Amarilis Nagel RN Peripheral IV Orientation: Posteri or, Right; Location: Hand; Device: Angiocath; Gauge: 20 gauge; Insertion Attempts: 1; Patient Tolerance: tolerated well 04/09/23 0915 by Ni Gacría RN 04/09/23 1014 by Mercedez Vu RN Supraglottic Airway Type: nasal cannula; Confirmation: end tidal CO2, satisfactory chest rise 04/09/23 0940 by Kim Singh CRNA 04/09/23 1014 by Mercedez Vu RN documented in this encounter Social History Tobacco [...] on file documented as of this encounter OR Notes * Anesthesia Postprocedure Evaluation - Lorenzo Rangel MD - 04/09/2023 10:17 AM CDT Phase II Postanesthesia Evaluation Including Mercy Modified Amor Score Patient seen and evaluated: Mercy Modified Amor Score: Score: 20 (04/09/23 101) COMMENTS: No apparent Anesthesia related complications RESPIRATORY FUNCTION: Respiration: able to breath and cough freely (04/09/231012) [2=able to breathe and cough freely, 1=dyspnea, limited breathing or tachypnea, 0=apnea or mechanicventilator] O2 Saturation: able to maintain O2 saturation greater than 92% on room air (04/09/231012) [2=able to maintain O2 saturation greater than 92% on room air, 1=needs O2 inhalation to maintain O2 saturation greater than 90%, 0=O2 saturation less than 90% even with O2 supplement] Resp: 14 (04/09/23 1008)SpO2: 96 % (04/09/23 1008) CARDIOVASCULAR FUNCTION: BP: 119/73 (04/09/23 1014) Circulation: BP within 20% of preanesthetic level (04/09/23 101) [2=BP within 20% of preanesthetic level, 1=BP within 20-49% of preanesthetic level, 0=BP within 50%of preanesthetic level] MENTAL STATUS, NEURO, ACTIVITY: PATIENT PARTICIPATION IN EVALUATIONyes Consciousness: fully awake (04/09/231012) [2=fully awake, 1=arousable on calling, 0=not responding] Activity: able to move 4 extremities voluntarily or on command (04/09/231012) [2=able to move 4 extremities voluntarily or on command, 1=able to move 2 extremities voluntarily or on command, 0=unable to move extremities voluntarily or on command] Ambulation: able to stand up and walk straight, on ordered bedrest, or performing at patient's prior level of function (04/09/231012) [2=able to stand up and walk straight, on ordered bedrest, or performing at patient's prior level of function, 1=vertigo when erect, 0=dizziness when supine] TEMPERATURE: Temp: 36.2 ??C (04/09/23 100) PAIN: Pain: pain free (04/09/231012) [2=pain free, 1=pain handled by oral medication, 0=pain requiring parenteral medication] NAUSEA AND VOMITING: no nausea and no vomiting Fasting/Feeding: able to drink fluids, ice chips or NPO (04/09/231012) [2=able to drink fluids, ice chips or NPO, 1=nauseated, 0=nausea and vomiting] POSTOPERATIVE HYDRATION: well hydrated Intake/Output Summary (Last 24 hours) at 04/09/2023 1017 Last data filed at 04/09/2023 1001 Gross per 24 hour Intake 600 ml Output -- Net 600 ml Urine Output: has voided, adequate urine output per device, or not applicable (04/09/231012) [2=has voided, adequate urine output per device, or not applicable, 1=unable to void but comfortable, 0=unable to void and uncomfortable] WOUND: Dressing: dry and clean or not applicable (09/01/23 1013) [2=dry and clean or not applicable, 1=wet, marked and not increasing, 0=growing area of wetness] Lorenzo Rangel MD 04/09/2023 10:17 AM Post Anesthesia Evaluation Vitals: Vitals Value Taken Time BP 119/73 04/09/23 1014 Temp 36.2 ??C 04/09/23 1008 Resp 14 04/09/23 1008 SpO2 96 % 04/09/23 1008 Pulse 70 04/09/23 1014 Heart Rate Pain Rating: Anesthesia Post Evaluation No notable events documented. Lorenzo Rangel MD * Anesthesia Handoff - Kim Singh CRNA - 04/09/2023 10:09 AM CDT Post-Anesthetic transfer of care report elements to appropriate post-anesthesia recovery environment completed in accordance with procedure. I completed my handoff to the receiving nurse during which we: 1. Identified the patient 2. Identified the responsible provider 3. Reviewed the pertinent medical history 4. Discussed the surgical course 5. Reviewed intra-op anesthesia management and issues during anesthesia 6. Set expectations for post-procedure period 7. Orders as necessary and appropriate for continuation of care are present in Epic. 8. Allowed opportunity for questions and acknowledgement of understanding. Vital Signs: 107/71 63 16 96% 10:09 AM Kim Singh CRNA * Anesthesia Preprocedure Evaluation - Lorenzo Rangel MD - 04/09/2023 9:10 AM CDT Relevant Problems No relevant active problems Anesthesia Evaluation Patient summary reviewed and Nursing notes reviewed Airway Mallampati: II TM distance: >3 FB Neck ROM: full Dental - normal exam Pulmonary - normal exam breath sounds clear to auscultation (-) pneumonia, COPD, asthma, shortness of breath, recent URI, sleep apnea, rhonchi, decreased breath sounds ROS comment: Social History Tobacco Use Smoking status: Never Smoker Smokeless tobacco: Never Used Chest X-ray result (most recent): Results for orders placed or performed during the hospital encounter of 09/14/18 -XR CHEST PA AND LATERAL 2 VW Narrative XR CHEST PA AND LATERAL 2 VW DATE: 09/14/2018 4:18 PM HISTORY: Complete rotator cuff tear or rupture of right shoulder, not specified as traumatic; Pre-operative exam. COMPARISON: 01/10/2014. FINDINGS: No consolidation or effusion. No pneumothorax. Heart size is normal. Degenerative changes in the thoracic spine. Suspected superimposed syndesmophytes overlying the lower thoracic spine with pulmonary nodule felt to be unlikely. Impression IMPRESSION: 1. No acute abnormality identified. DICTATION LOCATION: [address] Results for orders placed or performed during the hospital encounter of 01/27/13 -XR RIBS UNILATERAL LEFT W PA CHEST Narrative LEFT RIBS WITH PA CHEST 5 VIEWS 01/27/13 INDICATION: Chest wall pain from injury FINDINGS: The heart and mediastinum are within normal limits. The lungs are free of active infiltrates. No pleural effusion or pneumothorax is identified. No fracture, dislocation, focal bone production or destruction is identified. Impression IMPRESSION: Negative. Dictated from [facility] Chest CT result (most recent): No results found for this or any previous visit. Narrative/Impression for recent Imaging results: No results found. X-ray result (most recent): Results for orders placed during the hospital encounter of 09/14/18 XR CHEST PA AND LATERAL 2 VW Narrative XR CHEST PA AND LATERAL 2 VWDATE: 09/14/2018 4:18 PMHISTORY: Complete rotator cuff tear or rupture ofright shoulder, notspecified as traumatic; Pre-operative exam. COMPARISON: 01/10/2014.FINDINGS: No consolidation or effusion. No pneumothorax. Heart sizeis normal. Degenerative changes in the thoracic spine. Suspectedsuperimposed syndesmophytes overlying the lower thoracic spine withpulmonary nodule felt to be unlikely. Impression IMPRESSION:1. No acute abnormality identified.DICTATION LOCATION: Location - [facility] Cardiovascular - normal exam (+) hypertension well controlled (-) pacemaker, valvular problems/murmurs, past OH, CAD, CABG/stent, dysrhythmias, angina, CHF, orthopnea, PND, RENAE, murmur, friction rub Rhythm: regular Rate: normal ROS comment: Cardiac Echo result (most recent): No results found for this or any previous visit. Neuro/Psych (-) seizures, neuromuscular disease, TIA, CVA, headaches, psychiatric history Comments: Carotid Doppler result (most recent): No results found for this or any previous visit. GI/Hepatic/Renal (+) GERD poorly controlled (-) hiatal hernia, PUD, hepatitis, liver disease, renal disease, bowel prep Endo/Other (+) arthritis (Osteoarthritis) (-) diabetes mellitus, hypothyroidism, hyperthyroidism, blood dyscrasia Abdominal - normal exam Abdomen: soft. Anesthesia History No history of anesthetic complications, no history of difficult intubation, no history of malignanthyperthermia, no history of PONV and no pseudocholinesterase deficiency. Anesthesia Plan ASA Final: 2 MAC NPO status > 4 hours Anesthetic plan and risks discussed with Patient. Plan discussed with Automobile Drivers. Smoking Compliance patient did not smoke on day of surgery documented in this encounter Plan of Treatment Not on file documented as of this encounter Visit Diagnoses Not on filedocumented in this encounter Administered Medications Inactive Administered Medications - up to 3 most recent administrations Medication Order MAR Action Action Date Dose Rate Site lactated ringers infusion IV, at 125 mL/hr, PRE-PROCEDURE CONTINUOUS, Starting on Wed04/09/23 at 0915, Until Wed04/09/23 at 1253, Routine, Pre-Procedure Continue from Pre-Op 04/09/2023 9:43 AM CDT 125 mL/hr New Bag 04/09/2023 9:16 AM CDT 125 mL/hr lidocaine (PF) (XYLOCAINE MPF) 60 mg/3 mL (2 %) injection syringe IV, INTRA-PROCEDURE PRN, Starting on Wed04/09/23 at 0946, Until Wed04/09/23 at 1009, Routine, Anesthesia Intra-op Given 04/09/2023 9:46 AM CDT 60 mg propofoL (DIPRIVAN) injection IV, INTRA-PROCEDURE PRN, Starting on Wed04/09/23 at 0946, Until Wed04/09/23 at 1009, Anesthesia Intra-op Given 04/09/2023 9:57 AM CDT 30 mg Given 04/09/2023 9:55 AM CDT 30 mg Given 04/09/2023 9:53 AM CDT 50 mg documented in this encounter Care Teams Patrol Mother Relationship Specialty Start Date End Date Inderjit Narayan DO [address] [place] [id number] PCP - General Family Practice 04/09/23 08/29/23 documented as of this encounter
--- OUTSIDE RECORDS SUMMARY | 2024-08-19 06:41 | XMS_ITS | Encounter Summary ---
Author Organization [facility] Address [address] [facility] [facility] Attn: Epic Prelude ADT KAYE SCHMID [address] Care Team Providers Care Electrical Development Engineer Name Role Phone Unavailable Primary Care Provider Unavailabl e Encounter Details Date Type Department Care Team (Latest Contact Info) Description 07/21/2022 Travel Social History Tobacco Use Types Packs/Day [...] Coronavirus/COVID-19? No / Unsure 07/21/2022 12:41 PM CONSULTING IT ARCHITECT documented as of this encounter Plan of Treatment Not on file documented as of this encounter Visit Diagnoses Not on filedocumented in this encounter
--- OUTSIDE RECORDS SUMMARY | 2024-08-19 06:41 | XMS_ITS | Encounter Summary ---
Author Organization [facility] Address [address] Attn: Epic Prelude ADT [place]E [place] [address] Care Team Providers Care Telemarketing Sales Representative Name Role Phone Unavailable Primary Care Provider Unavailabl e Encounter Details Date Type Department Care Team (Latest Contact Info) Description 10/27/2022 Travel Social History Tobacco Use Types Packs/Day [...]
--- OUTSIDE RECORDS SUMMARY | 2024-08-19 06:41 | XMS_ITS | Encounter Summary ---
Author Organization [facility] Address [address] [facility] Attn: Epic Prelude ADT [place]AYE [place] [address] Care Team Providers Care Executive Housekeeper Name Role Phone Unavailable Primary Care Provider Unavailabl e Encounter Details Date Type Department Care Team (Latest Contact Info) Description 10/10/2021 Travel Social History Tobacco Use Types Packs/Day [...] COVID-19? No / Unsure 10/10/2021 9:38 AM INKER AND OPAQUER documented as of this encounter Plan of Treatment Not on file documented as of this encounter Visit Diagnoses Not on filedocumented in this encounter
--- OUTSIDE RECORDS SUMMARY | 2024-08-19 06:41 | XMS_ITS | Encounter Summary ---
Author Organization [facility] Address [address] [place] [address] Care Team Providers Care Signal Constructor Name Role Phone Unavailable Primary Care Provider Unavailabl e Reason for Visit * Reason Comments Medication Refill Encounter Details Date Type Department Care Team (Late st Contact Info) Description 07/30/2021 Refill [facility] Medicine - Bushra Yuan [address] [facility] [address]undio [address] [place] [address] Ciro Fernandez, DO [address] [facility] [address] [place] [address] Cough Social History Tobacco Use [...]
--- OUTSIDE RECORDS SUMMARY | 2024-08-19 06:41 | XMS_ITS | Encounter Summary ---
Author Organization [facility] Address [address] [place] [address] Care Team Providers Care Bundle Clerk Name Role Phone Unavailable Primary Care Provider Unavailabl e Reason for Visit * Reason Onset Date Comments Primary Care Outreach 11/13/2022 Encounter Details Date Type Department Care Team (Late st Contact Info) Description 11/13/2022 Patient Outreach [facility] Family Medicine - [facility] [address] [facility] [address] [place] [address] Ciro Fernandez, DO 107 [facility] [address] [place] [address] Primary Care Outreach Social History [...]
--- OUTSIDE RECORDS SUMMARY | 2024-08-19 06:41 | XMS_ITS | Encounter Summary ---
Author Organization [facility] Address [address] [place] [address] Care Team Providers Care Diversified Crops Supervisor Name Role Phone Unavailable Primary Care Provider Unavailabl e Reason for Visit * Reason Comments Cough Tickle in throat Encounter Details Date Type Department Care Team ([facility] st Contact Info) Description 01/06/2022 11:30 AM CDT Office Visit [facility] Family Medicine - Bushra Yuan [address] [facility] Lilia [address] [place] [address] Ciro Fernandez, DO 107 [facility] [address] [place] [address] Cough (Primary Dx) Social History Tobacco Use Types [...] Reading Time Taken Comments Blood Pressure 110/70 01/06/2022 11:08 AM CDT Pulse 80 01/06/2022 11:08 AM CDT Temperature 36.8 ??C (98.3 ??F) 01/06/2022 11:08 AM C DT Respiratory Rate - - Oxygen Saturation 97% 01/06/2022 11:08 AM CDT Inhaled Oxygen Concentration - - Weight 91.6 kg (202 lb) 01/06/2022 11:08 AM CDT Height 180.3 cm (5' 11 ) 01/06/2022 11:08 AM CDT Body Mass Index 28.17 01/06/2022 11:08 AM CDT documented in this encounter Progress Notes * Ciro Fernandez, - 01/06/2022 12:12 PM CDT Subjective: Brendon Lazaro Jovan 71 y.o. male presents with a 2 week hx of allergy symptoms. Patient complains of previously presented with a sinus infection and was treated with Augmentin however he did have some side effects and stopped it. Currently with runny nose, dry cough. He is taking Singulair, Flonase, Zyrtec-D He has been taking the medicines recently. Patient denies side effects of the medications used. Patient denies chest pain or SOB. Negative Sick Contacts Negative Fevers Review of Systems - Ophthalmic ROS: negative for visual changes Cardiovascular ROS: negative for heart palpitations Past Medical/Surgical/Social/Family History reviewed as well as Allergies and Medications. Objective: BP 110/70 Pulse 80 Temp 98.3 ??F (36.8 ??C) (Temporal) Ht 5' 11 (1.803 m) Wt 91.6 kg (202 lb) SpO2 97% BMI 28.17 kg/m?? Gen'l: NAD HEENT: Sinuses nontender to palpation. Throat not erythematous without exudates. +post nasal drainage. pink, swollen nasal turbinates. clear nasal drainage Neck: Supple. No lymphadenopathy. Lungs: Clear to auscultation bilaterally. No wheezing, crackles, rhonchi. CV: RRR Skin: No rash noted. Assessment/Plan: Brendon was seen today for cough. Diagnoses and all orders for this visit: Cough Appears to be post infectious bronchospasm. He is currently taking Singulair, Flonase, Zyrtec-D. Continue with those medications. Consider trial of Advair however will need to discuss risks with previous history of steroid rash. Consider also restarting Astelin nasal spray If still symptoms would suggest an ENT consultation OTC Meds as discussed Increase Fluids Discussed Risks, Benefits and Alternatives of the current treatment regimen. Call or return to clinic prn if these symptoms worsen or fail to improve as anticipated. * Shani Jo - 01/06/2022 11:18 AM CDT TOBACCO COUNSELING He is not a tobacco user. Positive: PHQ-2 score >= 3 or PHQ-9 score >= 9 PHQ-2 Total: 0 (01/06/2022 11:00 AM) PHQ-9 Total: 0 (01/06/2022 11:00 AM) DEPRESSION PLAN OF CARE His depression screen was negative. Normal BMI Range: 18 & older: > or = 18.5 and < 25 Body mass index is 28.17 kg/m??. Abnormal high BMI: Patient counseled on lifestyle modifications including weight loss and daily exercise. FALL RISK He has had no falls in the past year. documented in this encounter Plan of Treatment Not on file documented as of this encounter Visit Diagnoses Diagnosis Cough- Primary documented in this encounter
--- OUTSIDE RECORDS SUMMARY | 2024-08-19 06:41 | XMS_ITS | Encounter Summary ---
Author Organization [facility] Address [address] [place] [address] Care Team Providers Care Telephone Information Clerk Name Role Phone Unavailable Primary Care Provider Unavailabl e Reason for Visit * Reason Comments Med Refill Encounter Details Date Type Department Care Team (Late st Contact Info) Description 04/27/2022 Refill [facility] Medicine - [facility] Abundio Yuan [address] [facility] [address] [place] [address] Ciro Fernandez, DO [address] [facility] [address] [place] [address] Cough Social History Tobacco Use [...] * Telephone Encounter - Jennifer Long - 04/27/2022 8:40 AM CDT ----- Message from Samantha Vargas PA-C sent at 04/27/2022 8:04 AM CDT ----- Your laboratory studies have been received, please return to office for a follow up examination. Please follow up with myself or Dr. Fernandez. documented in this encounter Plan of Treatment Not on file documented as of this encounter Visit Diagnoses Diagnosis Cough documented in this encounter
--- OUTSIDE RECORDS SUMMARY | 2024-08-19 06:41 | XMS_ITS | Encounter Summary ---
Author Organization [facility] Address [address] [facility] Attn: Epic Prelude ADT [place]AYE [place] [address] Care Team Providers Care Education Program Specialist Name Role Phone Unavailable Primary Care Provider Unavailabl e Encounter Details Date Type Department Care Team (Latest Contact Info) Description 05/15/2022 Travel Social History Tobacco Use Types Packs/Day [...]
--- OUTSIDE RECORDS SUMMARY | 2024-08-19 06:41 | XMS_ITS | Encounter Summary ---
Author Organization [facility] Address [address] [place] [address] Care Team Providers Care Denture Technician Name Role Phone Unavailable Primary Care Provider Unavailabl e Reason for Referral * Eval and Treat (Routine) - Closed Specialty Diagnoses / Procedures Referred By Georgie t Referred To Contact Gastroenterology Diagnoses Screening for colon cancer Colon adenoma Polyp of hepatic flexure of colon Diverticulosis colon Procedures COLON Ciro Fernandez DO 107 [facility] [address] [place] [address] Modesta Wise DO [address] [address] Referral ID Status Reason Start Date Expiration Date V isits Requested Visits Authorized [id number] Closed CRS to Schedule 10/07/2022 10/07/2023 2 2 OF STORE OPERATIONS Reason for Visit * Reason Onset Date Comments Needs Orders Written 10/07/2022 Encounter Details Date Type Department Care Team (Late st Contact Info) Description 10/07/2022 Telephone [facility] Medicine - Bushra Yuan [address] [place] [address] Ciro Fernandez DO 107 [facility] [address] [place] [address] Needs Orders Written Social History Tobacco Use Types Packs/Day Years [...] encounter Miscellaneous Notes * Telephone Encounter - Tasneem Regalado RMA - 10/07/2022 10:56 AM HEAD OF STORE OPERATIONS Pt notified that Colonoscopy has been ordered. Pt given number to call [facility]. OF STORE OPERATIONS * Telephone Encounter - Charmaine Kowalski - 10/07/2022 10:34 AM CST Order Request Colonoscopy Reason for Request: patient states it is time for it. Please call when orders are placed. Call-back Number: [phone] (home) Home Phone Work Phone Mobile Home Phone OF STORE OPERATIONS documented in this encounter Plan of Treatment Scheduled Referrals Name Type Priority Associated Diagnoses Order Schedule AMB REFERRAL TO GASTROENTEROLOGY Outpatient Referral Routine Screening for colon cancer Colon adenoma Polyp of hepatic flexure of colon Diverticulosis Ordered: 10/07/2022 documented as of this encounter Visit Diagnoses Diagnosis Screening for colon cancer- Primary Special screening for malignant neoplasms, colon Colon adenoma Benign neoplasm of colon Polyp of hepatic flexure of colon Diverticulosis Diverticulosis of colon (without mention of hemorrhage) documented in this encounter
--- OUTSIDE RECORDS SUMMARY | 2024-08-19 06:42 | XMS_ITS | Encounter Summary ---
Author Organization [facility] Address [address] [place] [address] Care Team Providers Care Bleacher Lard Name Role Phone Unavailable Primary Care Provider Unavailabl e Reason for Visit * Reason Onset Date Comments Results 01/16/2020 MRI knee Encounter Details Date Type Department Care Team (Late st Contact Info) Description 01/16/2020 Telephone [facility] Family Medicine - [facility] [address] [facility] [address] [place] [address] Ciro Fernandez, DO [address] [facility] [address] [place] [address] Results (MRI knee) Social History Tobacco Use Types Packs/Day Years Used Date Smoking Tobacco: Never Smokeless Tobacco: Never Alcohol Use Standard Drinks/Week Comments No 0 (1 standard drink = 0.6 oz pur e alcohol) Sex and Gender Information Value Date Recorded Sex Assigned at Not on file Gender Identity Not on file Sexual Orientation Not on file COVID-19 Exposure Response Date Recorded In the last month, have you been in contact with someone who was confirmed or suspected to have Coronavirus / COVID-19? No / Unsure 01/15/2020 8:36 AM CDT documented as of this encounter Miscellaneous Notes * Telephone Encounter - Kay Jesus - 01/16/2020 9:15 AM CDT Patient notified and understands. Patient will go to the urgent walk in clinic at [facility]. Discussed with Nurse in office and they know he is on his way. Patient will stop by Imani Garrett and vegetable picker his CD of MRI and take it to appointment. They will call with any questions or problems. * Telephone Encounter - Kay Jesus - 01/16/2020 7:54 AM CDT ----- Message from Ciro Fernandez DO sent at 01/16/2020 7:47 AM CDT ----- MRI of your knee does show bone marrow edema which could be from a fracture or lack of blood circulation to the area. I would like you to see a knee front desk specialist today if possible. It also showed degeneration to the lateral meniscus, fluid in the joint and knee cap arthritis. documented in this encounter Plan of Treatment Not on file documented as of this encounter Visit Diagnoses Not on filedocumented in this encounter
--- OUTSIDE RECORDS SUMMARY | 2024-08-19 06:42 | XMS_ITS | Encounter Summary ---
Author Organization [facility] Address [address] [place] [address] Care Team Providers Care Stuntman Name Role Phone Unavailable Primary Care Provider Unavailabl e Reason for Visit * Reason Onset Date Comments right knee pain 01/12/2020 Encounter Details Date Type Department Care Team (Late st Contact Info) Description 01/12/2020 Telephone [facility] Family Medicine - [facility] [address] [facility] [address] [place] [address] Ciro Fernandez, DO [address] [facility] [address] [place] [address] right knee pain Social History Tobacco Use Types Packs/Day Years [...] have Coronavirus / COVID-19? No / Unsure 01/08/2020 4:26 PM CDT documented as of this encounter Miscellaneous Notes * Telephone Encounter - Sima Ortega - 01/12/2020 10:50 AM CDT Spoke to pt stated he does not remember having prednisone back in 2013 .. pt stated he wants to tryit again and to send to pharmacy. Med has been sent to pharmacy based on pt stating he wants to prednisone again.. * Telephone Encounter - Kay Jesus - 01/12/2020 10:[address] Fernandez gave patient Prednisone 20mg taper in 2013. Did patient tolerate this medication even though he has allergy to Medrol dose pack? If patient tolerated Prednisone then send taper dose pended. Continue ice elevation and Tramadol if needed. If patient did not tolerate Prednisone then Aleve 220mg 2 pill twice a day with food * Telephone Encounter - Sima Ortega - 01/12/2020 8:48 AM CDT Pt was seen within the last 2 wks.. pt did have an xray.. pt states now his knees is more swellen and cannot walk on it.. it is extremely painful. He is using crutches to walk.. pt is using ice now documented in this encounter Plan of Treatment Not on file documented as of this encounter Visit Diagnoses Not on filedocumented in this encounter
--- OUTSIDE RECORDS SUMMARY | 2024-08-19 06:42 | XMS_ITS | Encounter Summary ---
Author Organization [facility] [place] [facility] Address [address] [place] [address] Care Team Providers Care Engraver Wood Name Role Phone Unavailable Primary Care Provider Unavailabl e Reason for Visit * Reason Comments Medication Refill Encounter Details Date Type Department Care Team (Late st Contact Info) Description 02/18/2020 Refill [facility] Medicine - [facility] [address] [facility] [address] [place] [address] Ciro Fernandez, DO [address] [facility] [address] [place] [address] Social History Tobacco Use Types [...] have Coronavirus / COVID-19? No / Unsure 02/02/2020 8:05 AM CDT documented as of this encounter Plan of Treatment Not on file documented as of this encounter Visit Diagnoses Not on filedocumented in this encounter
--- OUTSIDE RECORDS SUMMARY | 2024-08-19 06:42 | XMS_ITS | Encounter Summary ---
Author Organization [facility] Address [address] [place] [address] Care Team Providers Care E/M Engineer Name Role Phone Unavailable Primary Care Provider Unavailabl e Reason for Visit * Reason Onset Date Comments Medication Refill 09/19/2020 Encounter Details Date Type Department Care Team (Late st Contact Info) Description 09/19/2020 Refill [facility] Family Medicine - [facility] [address] Yuan [address] [facility] [address] [place] [address] Ciro Fernandez, DO [address] [facility] [address] [place] [address] ETD (Eustachian tube dysfunction), bilateral Social History Tobacco Use Types Packs/Day Years [...] have Coronavirus / COVID-19? No / Unsure 09/16/2020 10:36 AM INSTRUCTIONAL SYSTEMS SPECIALIST documented as of this encounter Plan of Treatment Not on file documented as of this encounter Visit Diagnoses Diagnosis ETD (Eustachian tube dysfunction), bilateral documented in this encounter
--- OUTSIDE RECORDS SUMMARY | 2024-08-19 06:42 | XMS_ITS | Encounter Summary ---
Author Organization [facility] Address [address] [place] [address] Care Team Providers Care Instrument Lens Generator Name Role Phone Unavailable Primary Care Provider Unavailabl e Reason for Visit * Reason Comments Physical Encounter Details Date Type Department Care Team (Late st Contact Info) Description 09/16/2020 11:00 AM SUPERVISOR MAJOR APPLIANCE ASSEMBLY Office Visit [facility] Medicine - [facility] [address] [facility] [address] [place] [address] Ciro Fernandez, DO [address] [facility] [address] [place] [address] Medicare annual wellness visit, subsequent (Primary Dx); Essential hypertension, benign; Gastroesophageal reflux disease, unspecified whether esophagitis present; Pure hypercholesterolemia; Screening for malignant neoplasm of prostate; Prediabetes; Neoplasm of uncertain behavior, right nose; Bilateral leg edema Social History Tobacco Use Types Packs/Day Years [...] COVID-19? No / Unsure 09/16/2020 10:36 AM SUPERVISOR MAJOR APPLIANCE ASSEMBLY documented as of this encounter Last Filed Vital Signs Vital Sign Reading Time Taken Comments Blood Pressure 136/72 09/16/2020 10:38 AM SUPERVISOR MAJOR APPLIANCE ASSEMBLY Pulse 68 09/16/2020 10:38 AM SUPERVISOR MAJOR APPLIANCE ASSEMBLY Temperature 36.3 ??C (97.4 ??F) 09/16/2020 10:[address] Respiratory Rate - - Oxygen Saturation - - Inhaled Oxygen Concentration - - Weight 95.7 kg (211 lb) 09/16/2020 10:38 AM SUPERVISOR MAJOR APPLIANCE ASSEMBLY Height 180.3 cm (5' 11 ) 09/16/2020 10:38 AM SUPERVISOR MAJOR APPLIANCE ASSEMBLY Body Mass Index 29.43 09/16/2020 10:38 AM SUPERVISOR MAJOR APPLIANCE ASSEMBLY documented in this encounter Progress Notes * Ciro Fernandez DO - 09/16/2020 12:00 PM CST MEDICARE WELLNESS VISIT Brendon Aldana is a 70 y.o. male here today for his Physical . Preventative health discussed and documented Chief Complaint Patient presents with ??? Physical He presents for his Subsequent Annual Wellness Visit (G0439) HEALTH RISK ASSESSMENT He has completed his Health Risk Assessment. I have reviewed this with the patient. See scanned copy in chart. Areas of self-identified risk are addressed below. In general, the patient feels they are in excellent physical health. Care Providers: Patient Care Team: Ciro Fernandez DO as PCP - Thierry Rivera MD (Otolaryngology) No Patient Care Coordination Note on file. End of life planning was discussed. has NO advanced directive - information requested and provided Patient's End of life planning was discussed and questions answered. Current documents reviewed / provided as applicable . I have no objection to the patient's stated End of Life planning DEMENTIA SCREENING The patient does not report concerns regarding cognitive or behavioral issues. Cognitive ability was also observed and assessed throughout the exam and a MMS was felt to be indicated. Mini-Mental Status Exam TOTAL SCORE: 30 (09/16/20 1000) Functional Ability and Level of Safety Hearing Impairment/Visual Acuity: See Nursing forms. Pain Assessment Are you having pain right now? Yes Very mild knee pain Abuse screen/ and home safety evaluation None Social Support/Perry: Patient resides with spouse in private home. Alcohol Use(QM) reports no history of alcohol use. Exercise/Other Exercise: rarely Seatbelt use yes Activities of Daily Living: Self-care Requires assistance with no ADLs Adult Nutritional Screen No nutritional concerns Appropriate screening as documented in Health Maintenance was reviewed. Written Screening Schedule for the next 5-10 years developed and provided to patient. PREVENTIVE CARE GUIDELINES Written Screening Schedule for the next 5-10 years developed and provided to patient. Preventive Care Recommendations for AVERAGE Risk Adult Males Recommended Measure Frequency Strength Annual Exam / Wellness Yearly Abdominal Aortic Aneurysm All males 65-75 with ANY smoking history B Lipid Screening All males >35 with additional cardiovascular risk factor / frequently suggested as every 5 years A Colon Cancer screening Colonoscopy every 10 years or Fecal Occult Blood testing yearly A Immunizations Influenza yearly Pneumococcal once after 65 Zostavax once after age 60 B Diabetes screening Screening recommended adults with BP >135/80 frequency is indeterminate B Blood Pressure screening Yearly A Health Maintenance Due Topic Date Due ??? ZOSTER VACCINE ( of 2) 2002 Written Screening Schedule for the next 5-10 years developed and provided to patient. HPI: Mr. Aldana also complains of the following (by systems): Hypertension: Taking and tolerating medications well. 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 Hypertensive diet compliance: yes Low Sodium Exercise compliance: no No change in vision. Denies chest pain, palpitations, shortness of breath. No unusual headaches. Hypercholesterolemia: Taking and tolerating medications well. Cholesterol diet compliance: yes Exercise compliance: no Denies chest pain, palpitations, shortness of breath. No muscular cramps. Prediabetes: Current medication(s) reviewed. Taking and tolerating medications well: None Blood sugars are not being checked at home. Low carbohydrate/sugar compliance: no Exercise compliance: no No change in vision. Denies chest pain, palpitations, shortness of breath. GERD: The patient complains of intermittent heartburn at today's visit. Described fullness, belching, burning after heavier meals, especially if lying down shortly after eating. No dysphagia. Frequency of symptoms: persistent. Patient has had previous treatment which has [...] well as Allergies and Medications. Exam/Objective: BP 136/72 Pulse 68 Temp 97.4 ??F (36.3 ??C) (Temporal) Ht 5' 11 (1.803 m) Wt 95.7 kg (211 lb) BMI 29.43 kg/m?? Appearance: alert, well appearing, and in no distress. Skin: Right nare with elongated irregular brown neoplasm. No unusual rashes noted Eyes: normal, normal vessels HEENT: Neck supple. No adenopathy or masses in the neck or supraclavicular regions. Thyroid not enlarged, no nodules detected. CV: heart sounds: normal rate, regular rhythm, normal S1, S2, no murmurs. No carotid bruits Chest:Chest is clear, no wheezing or rales. Normal symmetric air entry throughout both lung dsouza. Abdomen: Abdomen is soft without tenderness, distention, guarding, mass, rebound or organomegaly. Bowel sounds are normal. Extremities: Peripheral pulses normal, 1+ bilateral lower leg edema. Otherwise the lower extremities reveal no signs of deep venous thrombosis; calves and thighs are soft without swelling, indurationor tenderness, Lara's sign is negative. Psych: Appropriate Assessment and Plan: Brendon was seen today for physical. Diagnoses and all orders for this visit: Medicare annual wellness visit, subsequent Essential hypertension, benign - LIPID PANEL; Future - COMPREHENSIVE METABOLIC PANEL; Future - MICROALBUMIN/CREATININE RATIO, RANDOM UR; Future Benicar Gastroesophageal reflux disease, unspecified whether esophagitis present Currently on omeprazole 20 mg. Lifestyle changes suggested. Discussed that long-term treatment with a PPI can be associated with decreased calcium absorption and decreased iron absorption, as well as an increased risk of bacterial intestinal infections and small intestine bacterial overgrowth. Retrospective studies have shown that PPIs are associated with an increased risk of adverse effects, such as CKD, dementia, osteoporosis, cardiovascular events, pneumonia and ischemic strokes. Regular laboratory monitoring and office visits are needed to help monitor for these risks. Pure hypercholesterolemia - LIPID PANEL; Future - COMPREHENSIVE METABOLIC PANEL; Future Zocor 40 mg CoQ10 100mg 1 tab in the morning. Screening for malignant neoplasm of prostate - PSA MEDICARE SCREEN; Future Prediabetes - HEMOGLOBIN A1C; Future - COMPREHENSIVE METABOLIC PANEL; Future - MICROALBUMIN/CREATININE RATIO, RANDOM UR; Future Continue with good nutrition including low carbohydrate intake and Increase your aerobic exercise to 30 minutes continuous 5 times per week. Urged him to start with exercising possibly walking, his treadmill at home, bike at home. He is going to try and decrease use of diet soda or soda. Neoplasm of uncertain behavior, right nose Follow-up for cryo desiccation versus shave biopsy. Bilateral leg edema Elevate the legs above the level of the heart, while laying down. Avoid sitting or standing without moving for prolonged periods of time. Exercising the legs causes the fluid to work back into the veins and lymphatic channels so that theswelling does down. The pressure applied by elastic bandages or support stocking can help to reduce ankle swelling. A Low-salt diet may help reduce fluid retention and decrease the ankle swelling Discussed Risks, Benefits and Alternatives of the current treatment regimen. Call if you develop shortness of breath, chest pain, you are having increasing swelling without relief from treatment, you develop pain or redness in the areas that are swollen, you notice a significant weight gain of five pounds or more. Call or return to clinic if these symptoms worsen or fail to improve as anticipated. Follow up in 3 months if the laboratory work is abnormal otherwise in 6 months. Medications and options explained to include common side effects. Understanding of medications, course, diagnosis, and expectations were expressed by patient. Preventative Health discussed in full. Discussed Risks, Benefits and Alternatives of the current treatment regimen. Based upon these findings and review of any previous well visits recommendations of the treatment plan was recommended and discussed with the patient. Education and counseling provided: Age appropriate based on today's review and evaluation He voiced understanding and agreement with the treatment plan. He understands the importance of taking his medications and keeping follow-up appointments. All questions were answered. Syvjf-Zpnpz-Lquwzbi will be provided to patient upon check-out. FALL RISK He has had no falls in the past year. BMI PLAN OF CARE Normal BMI ranges: 18-64 yrs: > or = 18.5 and < 25 65 yrs and older: > or = 23 and < 30 Body mass index is 29.43 kg/m??. Abnormal high BMI: Patient counseled on lifestyle modifications including weight loss and daily exercise. BLOOD PRESSURE BP Readings from Last 3 Encounters: 09/16/20 136/72 04/01/20 124/60 02/14/20 128/70 Known diagnosis of HTN.. TOBACCO COUNSELING He is not a tobacco user. Depression Screen Positive: PHQ-2 score > 2 or PHQ-9 score > 9 PHQ-2 Total: 0 (09/16/20 1100) PHQ-9 Total: 0 (09/16/20 1100) His depression screen was normal The ASCVD Risk score (Emelia NEGRETE Jr., et al., 2013) failed to calculate for the following reasons: The valid total cholesterol range is 130 to 320 mg/dL Patient is on Asprin Therapy: yes. Patient is currently on Statin Treatment: yes. The patient was notified of their inclusion in the CMS [employer] Model. Shared decision makingwas used to assist the patient in understanding their cardiovascular disease risk and the benefits/risks of treatment options. Medication reconciliation with review of adherence, potential interactions and self management was performed. Recommended preventative care services include: Start or continue aspirin. RVISOR MAJOR APPLIANCE ASSEMBLY documented in this encounter Plan of Treatment Not on file documented as of this encounter Procedures Procedure Name Priority Date/Time Associated Diagnosis Comments PSA MEDICARE SCREEN Routine 02/01/2021 8 :28 AM CDT Screening for malignant neoplasm of prostate MICROALBUMIN/CREATI NINE RATIO, RANDOM UR Routine 02/01/2021 8:28 AM CDT Essential hypertension, benign Prediabetes HEMOGLOBIN A1C Routine 02/01/2021 8:28 AM CDT Prediabetes LIPID PANEL Routine 02/01/2021 8:28 AM CDT Essential hypertension, benign Pure hypercholesterolemia COMPREHENSIVE METABOLIC PANEL Routine 02/01/2021 8:28 AM CDT Essential hypertension, benign Pure hypercholesterolemia Prediabetes documented in this encounter Results * PSA MEDICARE SCREEN (02/01/2021 8:28 AM CDT) PSA 0.3 < OR = 4.0 ng/mL [facility] Comment: The total PSA value from this [...] disease. FASTING:YES FASTING: YES Test Performed at: [facility] [address] [place], [place] ??[phone] Agus Valente D.O., MPH Blood 02/01/2021 8:28 AM CDT Ciro Fernandez DO CHEMISTRY ORDERABLES COM Performing Organization Address [facility] de Phone Number [facility] [address] [place] [address] * MICROALBUMIN/CREATININE RATIO, RANDOM UR (02/01/2021 8:28 AM CDT) Creatinine, Urine 95 20 - 320 mg/dL [facility] MICROALBUMIN, URINE 0.3 See Note: mg/dL [facility] Comment: Reference Range: Reference Range Not established MICROALBUMIN/CREAT RATIO, UR 3 <30 mcg/mg creat [facility] Comment: The ADA defines abnormalities in albumin excretion as follows: Category ? Result (mcg/mg creatinine) Normal ?<30 Microalbuminuria ? 30-299 Clinical albuminuria ?? > OR = 300 The ADA recommends that at least two of three specimens collected within a 3-6 month period be abnormal before considering a patient to be within a diagnostic category. Test Performed at: [facility] [address] [place], [place] ??[phone] Agus Valente D.O., MPH Urine URINE SPECIMEN OBTAINED BY CLEAN CATCH PROCEDURE / Unknown 02/01/2021 8:28 AM CDT Ciro Fernandez DO URINE ORDERABLES Performing Organization Address [facility] de Phone Number [facility] [address] [place] [address] * (ABNORMAL) COMPREHENSIVE METABOLIC PANEL (02/01/2021 8:28 AM CDT) Pathologist [facility] GLUCOSE 100(H) 65 - 99 mg/dL [facility] Comment: ? Fasting reference interval For someone without known diabetes, a glucose value between 100 and 125 mg/dL is consistent with prediabetes and should be confirmed with a follow-up test. BUN 13 7 - 25 mg/dL [facility] CREATININE 0.93 0.70 - 1.25 mg/dL [facility] Comment: For patients >49 years of age, the reference limit for Creatinine is approximately 13% higher for people identified as -Vietnamese. GFR 84 > OR = 60 mL/min/1 .73m2 [facility] GFR, 97 > OR = 60 mL/min/1 .73m2 [facility] BUN/CREAT RATIO NOT APPLICABLE 6 - 22 (calc) [facility] SODIUM 141 135 - 146 mmol/L [facility] POTASSIUM 4.5 3.5 - 5.3 mmol/L [facility] CHLORIDE 103 98 - 110 mmol/L [facility] CO2 30 20 - 32 mmol/L [facility] CALCIUM 9.4 8.6 - 10.3 mg/dL [facility] TOTAL PROTEIN 6.9 6.1 - 8.1 g/dL [facility] ALBUMIN 4.3 3.6 - 5.1 g/dL [facility] GLOBULIN 2.6 1.9 - 3.7 g/dL (calc) [facility] ALBUMIN/GLOBULIN RATIO 1.7 1.0 - 2.5 (calc) [facility] BILIRUBIN TOTAL 1.0 0.2 - 1.2 mg/dL [facility] ALKALINE PHOSPHATASE 74 35 - 144 U/L [facility] AST 23 10 - 35 U/L [facility] ALT 30 9 - 46 U/L [facility] Comment: Test Performed at: [facility] [id number] [place] [address] ??[phone] Agus Valente D.O., MPH Blood 02/01/2021 8:28 AM CDT Ciro Fernandez DO CHEMISTRY ORDERABLES [facility] [address] [place] [address] * LIPID PANEL (02/01/2021 8:28 AM CDT) CHOLESTEROL 134 <200 mg/dL [facility] HDL 40 > OR = 40 mg/dL [facility] TRIGLYCERIDE 134 <150 mg/dL [facility] LDL CALCULATED 72 mg/dL (calc) [facility] Comment: Reference range: <100 Desirable range <100 mg/dL for primary prevention; ?? <70 mg/dL for patients with CHD or diabetic patients with > or = 2 CHD risk factors. LDL-C is now calculated using the Steve calculation, which is a validated novel method providing better accuracy than the Friedewald equation in the estimation of LDL-C. Michele ELLIS et al. JACIEL. 2013;310(19): 9973-8003 (http://education.Terascala/faq/RNA124) CHOL/HDL RATIO 3.4 <5.0 (calc) [facility] TOTAL NON-HDL CHOL(LDL+VLDL) 94 <130 mg/dL (calc) [facility] Comment: For patients with diabetes plus 1 major ASCVD risk factor, treating to a non-HDL-C goal of <100 mg/dL (LDL-C of <70 mg/dL) is considered a therapeutic option. Test Performed at: [facility] [address] [place], [place] ??[phone] Agus Valente D.O., MPH Blood 02/01/2021 8:28 AM CDT Ciro Fernandez DO CHEMISTRY ORDERABLES Performing Organization Address [facility] Co de Phone Number [facility] [address] [place] [address] * HEMOGLOBIN A1C (02/01/2021 8:28 AM CDT) HEMOGLOBIN A1C 5.6 <5.7 % of total Hgb [facility] Comment: Test Performed at: [facility] [address] [place], [place] ??[phone] Concepción Crowder Blood 02/01/2021 8:28 AM CDT Ciro Fernandez DO CHEMISTRY ORDERABLES Performing Organization Address [facility] Co de Phone Number [facility] [address] [place] [address] documented in this encounter Visit Diagnoses Diagnosis Medicare annual wellness visit, subsequent- Primary Routine general medical examination at a health care facility Essential hypertension, benign Gastroesophageal reflux disease, unspecified whether esophagitis present Pure hypercholesterolemia Screening for malignant neoplasm of prostate Prediabetes Other abnormal glucose Neoplasm of uncertain behavior, right nose Neoplasm of uncertain behavior, site unspecified Bilateral leg edema Edema documented in this encounter
--- OUTSIDE RECORDS SUMMARY | 2024-08-19 06:42 | XMS_ITS | Encounter Summary ---
Author Organization [facility] Address [address] [place] [address] Care Team Providers Care Filter Pulp Washer Name Role Phone Unavailable Primary Care Provider Unavailabl e Encounter Details Date Type Department Care Team (Late st Contact Info) Description 09/19/2020 Abstract [facility] Medicine - [facility] Abundio [address] [facility] [address] [place] [address] Ciro Fernandez, DO [address] [facility] [address] [place] [address] Social History Tobacco Use Types [...] COVID-19? No / Unsure 09/16/2020 10:36 AM ATTIC FANS MECHANIC documented as of this encounter Plan of Treatment Not on file documented as of this encounter Visit Diagnoses Not on filedocumented in this encounter
--- OUTSIDE RECORDS SUMMARY | 2024-08-19 06:42 | XMS_ITS | Encounter Summary ---
Author Organization [facility] Address [address] [facility] Attn: Epic Prelude ADT KAYE SCHMID [address] Care Team Providers Care Clinical Research Analyst Name Role Phone Unavailable Primary Care Provider Unavailabl e Encounter Details Date Type Department Care Team (Latest Contact Info) Description 09/09/2020 Travel Social History Tobacco Use Types Packs/Day [...] have Coronavirus / COVID-19? No / Unsure 09/09/2020 9:54 AM LINEMAN A CLASS documented as of this encounter Plan of Treatment Not on file documented as of this encounter Visit Diagnoses Not on filedocumented in this encounter
--- OUTSIDE RECORDS SUMMARY | 2024-08-19 06:42 | XMS_ITS | Encounter Summary ---
Author Organization [facility] Address [address] [place] [address] Care Team Providers Care Hand Developer Name Role Phone Unavailable Primary Care Provider Unavailabl e Reason for Visit * Reason Onset Date Comments Needs Appointment 01/26/2020 Encounter Details Date Type Department Care Team (Late st Contact Info) Description 01/26/2020 Telephone [facility] Family Medicine - [facility] [address] [facility] [address] [place] [address] Ciro Fernandez, DO [address] [facility] [address] [place] [address] Needs Appointment Social History Tobacco Use Types [...] encounter Miscellaneous Notes * Telephone Encounter - Emy Hough - 01/26/2020 8:53 AM CDT scheduled * Telephone Encounter - Sima Ortega - 01/26/2020 8:13 AM CDT ----- Message from Ciro Fernandez DO sent at 01/26/2020 7:53 AM CDT ----- Your laboratory studies have been received, please return to office for a follow up examination with me. documented in this encounter Plan of Treatment Not on file documented as of this encounter Visit Diagnoses Not on filedocumented in this encounter
--- OUTSIDE RECORDS SUMMARY | 2024-08-19 06:42 | XMS_ITS | Encounter Summary ---
Author Organization [facility] Address [address] [place] [address] Care Team Providers Care Juke Box Mechanic Name Role Phone Unavailable Primary Care Provider Unavailabl e Reason for Visit * Reason Comments Medication Refill Encounter Details Date Type Department Care Team (Late st Contact Info) Description 09/26/2020 Refill [facility] Medicine - [facility] Abundio Yuan [address] [facility] [address] [place] [address] Ciro Fernandez, DO [address] [facility] [address] [place] [address] Social History Tobacco Use Types [...] COVID-19? No / Unsure 09/16/2020 10:36 AM JOURNAL CLERK documented as of this encounter Plan of Treatment Not on file documented as of this encounter Visit Diagnoses Not on filedocumented in this encounter
--- OUTSIDE RECORDS SUMMARY | 2024-08-19 06:42 | XMS_ITS | Encounter Summary ---
Author Organization [facility] Address [address] [place] [address] Care Team Providers Care Animal Care Worker Name Role Phone Unavailable Primary Care Provider Unavailabl e Reason for Visit * Reason Onset Date Comments Medication Refill 09/26/2020 Encounter Details Date Type Department Care Team (Late st Contact Info) Description 09/26/2020 Refill [facility] Medicine - Bushra Yuan [address] [facility] [address] [place] [address] Ciro Fernandez, DO [address] [facility] [address] [place] [address] Social History Tobacco Use Types [...] COVID-19? No / Unsure 09/16/2020 10:36 AM AIR ANALYSIS ENGINEERING TECHNICIAN documented as of this encounter Plan of Treatment Not on file documented as of this encounter Visit Diagnoses Not on filedocumented in this encounter
--- OUTSIDE RECORDS SUMMARY | 2024-08-19 06:42 | XMS_ITS | Encounter Summary ---
Author Organization [facility] Address [address] [place] [address] Care Team Providers Care Supervisor Wet Room Name Role Phone Unavailable Primary Care Provider Unavailabl e Encounter Details Date Type Department Care Team (Late st Contact Info) Description 03/12/2020 Abstract [facility] Medicine - Bushra Yuan [address] [facility] [address] [place] [address] Ciro Fernandez, DO [address] [facility] [address] [place] [address] Social History Tobacco Use Types [...]
--- OUTSIDE RECORDS SUMMARY | 2024-08-19 06:42 | XMS_ITS | Encounter Summary ---
Author Organization [facility] Address [address] [facility] Attn: Epic Prelude ADT KAYE SCMHID [address] Care Team Providers Care Residential Coordinator Name Role Phone Unavailable Primary Care Provider Unavailabl e Encounter Details Date Type Department Care Team (Latest Contact Info) Description 09/16/2020 Travel Social History Tobacco Use Types Packs/Day [...] COVID-19? No / Unsure 09/16/2020 10:36 AM DATABASE DESIGNER documented as of this encounter Plan of Treatment Not on file documented as of this encounter Visit Diagnoses Not on filedocumented in this encounter
--- OUTSIDE RECORDS SUMMARY | 2024-08-19 06:42 | XMS_ITS | Encounter Summary ---
Author Organization [facility] Address [address] [place] [address] Care Team Providers Care Television Repairman Name Role Phone Unavailable Primary Care Provider Unavailabl e Reason for Visit * Reason Onset Date Comments Cough 04/16/2020 Encounter Details Date Type Department Care Team (Late st Contact Info) Description 04/16/2020 Telephone [facility] - [facility] [address] [facility] [address] [place] [address] Ciro Fernandez, DO 107 [facility] [address] [place] [address] Cough Social History Tobacco Use [...] have Coronavirus / COVID-19? No / Unsure 04/01/2020 3:12 PM CDT documented as of this encounter Miscellaneous Notes * Telephone Encounter - Kay Jesus - 04/16/2020 2:[address] Fernandez states to add on Mucinex DM for a few days and call is no improvement. Patient notified and understands. * Telephone Encounter - Marine Barrett - 04/16/2020 8:25 AM CDT Pt was seen for a cough on 04/01 and he still is coughing really bad. Is there anything else he can take ? documented in this encounter Plan of Treatment Not on file documented as of this encounter Visit Diagnoses Not on filedocumented in this encounter
--- OUTSIDE RECORDS SUMMARY | 2024-08-19 06:42 | XMS_ITS | Encounter Summary ---
Author Organization [facility] Address [address] [place] [address] Care Team Providers Care Distribution System Operator Name Role Phone Unavailable Primary Care Provider Unavailabl e Reason for Visit * Reason Onset Date Comments Results 02/03/2021 Encounter Details Date Type Department Care Team (Late st Contact Info) Description 02/03/2021 Telephone [facility] Medicine - [facility] [address] [facility] [address] [place] [address] Ciro Fernandez, DO [address] [facility] [address] [place] [address] Results Social History Tobacco Use Types Packs/Day [...] * Telephone Encounter - Jennifer Long - 02/03/2021 10:39 AM CDT Pt informed/sk * Telephone Encounter - Jennifer Long - 02/03/2021 7:59 AM CDT ----- Message from Courtney Weeks PA-C sent at 02/02/2021 10:49 AM CDT ----- Labs received - due for f/u on meds, labs documented in this encounter Plan of Treatment Not on file documented as of this encounter Visit Diagnoses Not on filedocumented in this encounter
--- OUTSIDE RECORDS SUMMARY | 2024-08-19 06:42 | XMS_ITS | Encounter Summary ---
Author Organization [facility] Address [address] [place] [address] Care Team Providers Care Cylinder Inspector And Tester Name Role Phone Unavailable Primary Care Provider Unavailabl e Reason for Visit * Reason Comments Medication Refill Encounter Details Date Type Department Care Team (Late st Contact Info) Description 04/23/2020 Refill [facility] Medicine - [facility] Abundio Yuan [address] [facility] [address] [place] [address] Ciro Fernandez, DO [address] [facility] [address] [place] [address] ETD (Eustachian tube dysfunction), bilateral [...]
--- OUTSIDE RECORDS SUMMARY | 2024-08-19 06:42 | XMS_ITS | Encounter Summary ---
Author Organization [facility] Address [address] [place] [address] Care Team Providers Care Geospatial Technologist Name Role Phone Unavailable Primary Care Provider Unavailabl e Reason for Visit * Reason Onset Date Comments Results 03/19/2021 stool card Encounter Details Date Type Department Care Team (Late st Contact Info) Description 03/19/2021 Telephone [facility] Family [facility] - [facility] Abundio Yuan [address] [facility] [address] [place] [address] Ciro Fernandez, DO [address] [facility] [address] [place] [address] Results (stool card ) Social History Tobacco Use Types Packs/Day [...] have Coronavirus / COVID-19? No / Unsure 03/07/2021 8:39 AM CDT documented as of this encounter Miscellaneous Notes * Telephone Encounter - Shani Jo - 03/19/2021 11:59 AM CDT Spoke to patient to advise of stool card results and recommendations, patient accepts. * Telephone Encounter - Shani Jo - 03/19/2021 11:16 AM CDT ----- Message from Courtney Weeks PA-C sent at 03/19/2021 10:17 AM CDT ----- Stool sample was negative for hidden blood. We will repeat testing in one year. documented in this encounter Plan of Treatment Not on file documented as of this encounter Visit Diagnoses Not on filedocumented in this encounter
--- OUTSIDE RECORDS SUMMARY | 2024-08-19 06:42 | XMS_ITS | Encounter Summary ---
Author Organization [facility] Address [address] [place] [address] Care Team Providers Care Aircraft Steel Fabricator Name Role Phone Unavailable Primary Care Provider Unavailabl e Encounter Details Date Type Department Care Team (Late st Contact Info) Description 01/18/2020 Abstract [facility] Medicine - [facility] Abundio Yuan [address] [facility] [address] [place] [address] Ciro Fernandez, DO [address] [facility] [address] [place] [address] Social History Tobacco Use Types [...]
--- OUTSIDE RECORDS SUMMARY | 2024-08-19 06:42 | XMS_ITS | Encounter Summary ---
Author Organization [facility] Address [address] [place] [address] Care Team Providers Care Striper Spray Gun Name Role Phone Unavailable Primary Care Provider Unavailabl e Reason for Visit * Reason Comments Medication Refill Encounter Details Date Type Department Care Team (Late st Contact Info) Description 07/15/2020 Refill [facility] Medicine - [place]ra Yuan [address] [facility] [address] [place] [address] Ciro Fernandez, DO [address] [facility] [address] [place] [address] Social History Tobacco Use Types [...]
--- OUTSIDE RECORDS SUMMARY | 2024-08-19 06:42 | XMS_ITS | Encounter Summary ---
Author Organization [facility] Address [address] [place] [address] Care Team Providers Care Senior Cost Estimator Name Role Phone Unavailable Primary Care Provider Unavailabl e Reason for Visit * Reason Comments Cholesterol Problem Hypertension Follow Up labs Encounter Details Date Type Department Care Team (Late st Contact Info) Description 02/14/2020 10:00 AM CDT Office Visit [facility] Medicine - Bushra Yuan [address] [facility] [address] [place] [address] Ciro Fernandez, DO [address] [facility] [address] [place] [address] Essential hypertension, benign (Primary Dx); Pure hypercholesterolemia; Prediabetes; Gastroesophageal reflux disease, esophagitis presence not specified Social History Tobacco Use Types Packs/Day Years [...] Sign Reading Time Taken Comments Blood Pressure 128/70 02/14/2020 9:41 AM CDT Pulse 64 02/14/2020 9:41 AM CDT Temperature - - Respiratory Rate - - Oxygen Saturation - - Inhaled Oxygen Concentration - - Weight 93.4 kg (206 lb) 02/14/2020 9:41 AM CDT Height 180.3 cm (5' 11 ) 02/14/2020 9:41 AM CDT Body Mass Index 28.73 02/14/2020 9:41 AM CDT documented in this encounter Progress Notes * Ciro Fernandez, - 02/14/2020 11:29 AM CDT SUBJECTIVE: Brendon Aldana is a 69 y.o. male here to discuss medical issues including hypertension. Hypertension: Current medication(s) reviewed. Taking and tolerating medications well. 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 Hypertensive diet compliance: yes Low Sodium Exercise compliance: no Reviewed overall treatment plan, including diet and exercise, and prevention strategies. Last labs reviewed with patient. Hypercholesterolemia: Current medication(s) reviewed. Cholesterol diet compliance: no Exercise compliance: no Denies chest pain, palpitations, orthopnea, pnd, pedal edema, shortness of breath. No muscular cramps. Reviewed overall treatment plan, including diet and exercise, and prevention strategies. Last labs reviewed with patient. Prediabetes: Current medication(s) reviewed. Patient understands diagnosis Blood sugars are not being checked at home. Diabetic diet compliance: no Exercise compliance: no No change in vision. No sores on feet. No paresthesias of LE. Denies chest pain, palpitations, orthopnea, pnd, pedal edema, shortness of breath. No polyuria or polydipsia. Reviewed overall treatment plan, including diet and exercise, and prevention strategies. Last labs reviewed with patient. GERD: The patient complains of intermittent heartburn at today's visit. Described fullness, belching, burning after heavier meals, especially if lying down shortly after eating. No dysphagia. Frequency of symptoms: intermittent. Patient has had previous treatment which has been helpful States the symptoms are intermittent. Patient denies side effects of the medications used Past Medical/Surgical/Social/Family History reviewed as well as Allergies and Medications. ROS: Psychological ROS: negative for change in mood or behavior ENT ROS: negative for nasal bleeding or dysphagia Hematological and Lymphatic ROS: negative for swollen glands or abnormal bleeding Endocrine ROS: negative for polyuria/polydipsia or unexpected new changes in weight Respiratory ROS: negative for cough, shortness of breath Cardiovascular ROS: negative for chest pain, heart palpitations or dyspnea on exertion Gastrointestinal ROS: negative for abdominal pain, change in bowel habits, or black or bloody stools Neurological ROS: negative for TIA or stroke symptoms, no bowel and bladder control changes Dermatological ROS: negative for skin rashes or unusual skin lesions noted OBJECTIVE: BP 128/70 Pulse 64 Ht 5' 11 (1.803 m) Wt 93.4 kg (206 lb) BMI 28.73 kg/m?? Appearance: alert, well appearing, and in no distress. Skin: I note only benign skin findings. No unusual rashes or suspicious skin lesions noted Eyes: normal, normal vessels, no hemorrhages HEENT: Ears normal. Throat and pharynx normal. Neck supple. No adenopathy or masses in the neck or supraclavicular regions. Thyroid not enlarged, no nodules detected. CV: heart sounds: normal rate, regular rhythm, normal S1, S2, no murmurs, rubs, clicks. No carotid bruits Chest:Chest is clear, no wheezing or rales. Normal symmetric air entry throughout both lung dsouza.No chest wall deformities or tenderness. Abdomen: Abdomen is soft without tenderness, distention, guarding, mass, rebound or organomegaly. Bowel sounds are normal. Extremities: Peripheral pulses normal, trace edema bilaterally. Otherwise Lower extremities reveal no signs of deep venous thrombosis; calves and thighs are soft without swelling, induration or tenderness, Lara's sign is negative. Neuro: Normal deep tendon reflexes. Psych: Alaina Olivas was seen today for hypertension. Diagnoses and associated orders for this visit: Essential hypertension, benign - LIPID PANEL; Future - COMPREHENSIVE METABOLIC PANEL; Future Benicar Pure hypercholesterolemia - LIPID PANEL; Future - COMPREHENSIVE METABOLIC PANEL; Future Zocor CoQ10 Prediabetes - HEMOGLOBIN A1C; Future - COMPREHENSIVE METABOLIC PANEL Continue with good nutrition including low carbohydrate intake and Increase your aerobic exercise to 30 minutes continuous 5 times per week. Gastroesophageal reflux disease, esophagitis presence not specified Prilosec prn Discussed that long-term treatment with a PPI [...] needed to help monitor for these risks. Check BP on a regular basis and report highs and lows. Discussed Risks, Benefits and Alternatives of the current treatment regimen. F/u in 4 months Fall Risk He has had no falls in the past year. Tobacco Intervention He is not a tobacco user. Depression Screen Positive: PHQ-2 score >= 3 or PHQ-9 score >= 9 PHQ-2 Total: 0 (02/14/2020 10:00 AM) PHQ-9 Total: 0 (02/14/2020 10:00 AM) DEPRESSION PLAN OF CARE His depression screen was normal Blood Pressure BP Readings from Last 3 Encounters: 02/14/20 128/70 02/02/20 132/78 01/02/20 130/80 Normal BMI Range: 18 & older: > or = 18.5 and < 25 Body mass index is 28.73 kg/m??. Abnormal high BMI: Patient counseled on lifestyle modifications including weight loss and daily exercise. documented in this encounter Plan of Treatment Not on file documented as of this encounter Procedures Procedure Name Priority Date/Time Associated Diagnosis Comments HEMOGLOBIN A1C Routine 09/07/2020 8:05 AM CUSTOMER SERVICE REPRESENTATIVE Prediabetes LIPID PANEL Routine 09/07/2020 8:05 AM CUSTOMER SERVICE REPRESENTATIVE Essential hypertension, benign Pure hypercholesterolemia COMPREHENSIVE METABOLIC PANEL Routine 09/07/2020 8:05 AM CUSTOMER SERVICE REPRESENTATIVE Essential hypertension, benign Pure hypercholesterolemia Prediabetes documented in this encounter Results * (ABNORMAL) LIPID PANEL (09/07/2020 8:05 AM CUSTOMER SERVICE REPRESENTATIVE) [facility] CHOLESTEROL 128 <200 mg/dL [facility] HDL 38(L) > OR = 40 mg/dL [facility] TRIGLYCERIDE 84 <150 mg/dL [facility] LDL CALCULATED 74 mg/dL (calc) [facility] Comment: Reference range: <100 Desirable range <100 mg/dL for primary prevention; ?? <70 mg/dL for patients with CHD or diabetic patients with > or = 2 CHD risk factors. LDL-C is now calculated using the Michele-Shaikh calculation, which is a validated novel method providing better accuracy than the Friedewald equation in the estimation of LDL-C. Michele SS et al. JACIEL. 2013;310(19): 2966-6477 (http://education.Bureau [employer]/faq/EAD060) CHOL/HDL RATIO 3.4 <5.0 (calc) [facility] TOTAL NON-HDL CHOL(LDL+VLDL) 90 <130 mg/dL (calc) [facility] Comment: For patients with diabetes plus 1 major ASCVD risk factor, treating to a non-HDL-C goal of <100 mg/dL (LDL-C of <70 mg/dL) is considered a therapeutic option. Test Performed at: [id number] [id number] [place] ??[id number] Agus Valente D.O., MPH Blood 09/07/2020 8:05 AM CUSTOMER SERVICE REPRESENTATIVE Ciro Fernandez DO CHEMISTRY ORDERABLES [facility] [address] [place] [address] * (ABNORMAL) COMPREHENSIVE METABOLIC PANEL (09/07/2020 8:05 AM CUSTOMER SERVICE REPRESENTATIVE) GLUCOSE 108(H) 65 - 99 mg/dL [facility] Comment: ? Fasting reference interval For someone without known diabetes, a glucose value between 100 and 125 mg/dL is consistent with prediabetes and should be confirmed with a follow-up test. BUN 12 7 - 25 mg/dL [facility] CREATININE 0.86 0.70 - 1.25 mg/dL [facility] Comment: For patients >49 years of age, the reference limit for Creatinine is approximately 13% higher for people identified as -Sudanese. GFR 89 > OR = 60 mL/min/1 .73m2 [facility] GFR, 103 > OR = 60 mL/min/1 .73m2 [facility] BUN/CREAT RATIO NOT APPLICABLE 6 - 22 (calc) [facility] SODIUM 142 135 - 146 mmol/L [facility] POTASSIUM 4.5 3.5 - 5.3 mmol/L [facility] CHLORIDE 106 98 - 110 mmol/L [facility] CO2 29 20 - 32 mmol/L [facility] CALCIUM 9.3 8.6 - 10.3 mg/dL [facility] TOTAL PROTEIN 6.8 6.1 - 8.1 g/dL [facility] ALBUMIN 4.0 3.6 - 5.1 g/dL [facility] GLOBULIN 2.8 1.9 - 3.7 g/dL (calc) [facility] ALBUMIN/GLOBULIN RATIO 1.4 1.0 - 2.5 (calc) [facility] BILIRUBIN TOTAL 0.7 0.2 - 1.2 mg/dL [facility] ALKALINE PHOSPHATASE 68 35 - 144 U/L [facility] AST 26 10 - 35 U/L [facility] ALT 33 9 - 46 U/L [facility] Comment: Test Performed at: [id number] ??[id number] Agus Valente D.O., MPH Blood 09/07/2020 8:05 AM CUSTOMER SERVICE REPRESENTATIVE Ciro Fernandez DO CHEMISTRY ORDERABLES [facility] [address] [place] [address] * (ABNORMAL) HEMOGLOBIN A1C (09/07/2020 8:05 AM CUSTOMER SERVICE REPRESENTATIVE) HEMOGLOBIN A1C 5.8(H) <5.7 % of total Hgb [facility] Comment: For someone without known diabetes, a hemoglobin A1c value between 5.7% and 6.4% is consistent with prediabetes and should be confirmed with a follow-up test. For someone with known diabetes, a value <7% indicates that their diabetes is well controlled. A1c targets should be individualized based on duration of diabetes, age, comorbid conditions, and other considerations. This assay result is consistent with an increased risk of diabetes. Currently, no consensus exists regarding use of hemoglobin A1c for diagnosis of diabetes for children. FASTING:YES FASTING: YES Test Performed at: [id number] ??[id number] Agus Valente D.O., MPH Blood 09/07/2020 8:05 AM CUSTOMER SERVICE REPRESENTATIVE Ciro Fernandez DO CHEMISTRY ORDERABLES Performing Organization Address City/State/[facility] Co de Phone Number [facility] [address] [address] documented in this encounter Visit Diagnoses Diagnosis Essential hypertension, benign- Primary Pure hypercholesterolemia Prediabetes Other abnormal glucose Gastroesophageal reflux disease, esophagitis presence not specified documented in this encounter
--- OUTSIDE RECORDS SUMMARY | 2024-08-19 06:42 | XMS_ITS | Encounter Summary ---
Author Organization [facility] Address [address] [place] [address] Care Team Providers Care Tellers Supervisor Name Role Phone Unavailable Primary Care Provider Unavailabl e Reason for Visit * Reason Onset Date Comments Medication Refill 05/11/2020 Encounter Details Date Type Department Care Team (Late st Contact Info) Description 05/11/2020 Refill [facility] Family Medicine - Bushra Yuan [address] [place] [address] Ciro Fernandez, DO 107 [facility] [address] [place] [address] Social History Tobacco Use Types [...]
--- OUTSIDE RECORDS SUMMARY | 2024-08-19 06:42 | XMS_ITS | Encounter Summary ---
Author Organization [facility] Address [address] [place] [address] Care Team Providers Care Hoister Name Role Phone Unavailable Primary Care Provider Unavailabl e Reason for Visit * Reason Comments Medication Refill Encounter Details Date Type Department Care Team (Late st Contact Info) Description 04/23/2020 Refill [facility] Medicine - [facility] Abundio Yuan [address] [facility] [address] [place] [address] Ciro Fernandez, DO [address] [facility] [address] [place] [address] ETD (Eustachian tube dysfunction), bilateral [...]
--- OUTSIDE RECORDS SUMMARY | 2024-08-19 06:42 | XMS_ITS | Encounter Summary ---
Author Organization [facility] Address [address] [place] [address] Care Team Providers Care Straddle Buggy Operator Name Role Phone Unavailable Primary Care Provider Unavailabl e Reason for Visit * Reason Comments Biopsy Encounter Details Date Type Department Care Team (Latest Contact Info) Description 10/02/2020 1:00 PM CONTRACT LEAD Procedure visit [facility] Medicine - [facility] [address] [facility] [address] [place] [address] Ciro Fernandez, DO [address] [facility] [address] [place] [address] Neoplasm of uncertain behavior (Primary [...] have Coronavirus / COVID-19? No / Unsure 10/02/2020 12:35 PM CONTRACT LEAD documented as of this encounter Last Filed Vital Signs Vital Sign Reading Time Taken Comments Blood Pressure 132/76 10/02/2020 1:04 PM CONTRACT LEAD Pulse 80 10/02/2020 1:04 PM CONTRACT LEAD Temperature 36.4 ??C (97.6 ??F) 10/02/2020 1:04 PM CS T Respiratory Rate - - Oxygen Saturation - - Inhaled Oxygen Concentration - - Weight 95.7 kg (211 lb) 10/02/2020 1:04 PM CONTRACT LEAD Height 180.3 cm (5' 11 ) 10/02/2020 1:04 PM CONTRACT LEAD Body Mass Index 29.43 10/02/2020 1:04 PM CONTRACT LEAD documented in this encounter Progress Notes * Ciro Fernandez, DO - 10/02/2020 12:59 PM CST SUBJECTIVE: Brendon Aldana is a 70 y.o. male who presents for lesion removal. We have discussed this procedure, including option of not performing surgery, technique of surgery and potential for scarring today. He has had a growing mass on the side of his nose which is being irritated by his glasses for many months. States it is growing and irritating. He would like it removed. OBJECTIVE: Patient appears well. Blood pressure 132/76, pulse 80, temperature 97.6 ??F (36.4 ??C), height 5' 11 (1.803 m), weight 95.7 kg (211 lb). Skin: : Right lateral side of nose with elongated irregular brown neoplasm. S1 and S2 normal, no murmurs. Regular rate and rhythm. Chest is clear; no wheezes or crackles. Psych: Appropriate. ASSESSMENT/PLAN: Brendon was seen today for biopsy. Diagnoses and all orders for this visit: Neoplasm of uncertain behavior - SD TANGENTIAL BIOPSY SKIN SINGLE LESION - PATHOLOGY; Future - PATHOLOGY Discussed Risks, Benefits and Alternatives of the current treatment regimen. Call or return to the office if these symptoms worsen or fail to improve as anticipated. PROCEDURE: After informed consent was obtained: Site: right side of the nose Using betadine and alcohol for cleansing and Lidocaine (XYLOCAINE) 1% with Epinephrine 1:100,000 for anesthetic, with sterile technique, shave biopsy was performed. The procedure was well tolerated without complications. Dressing is applied, and wound care instructions provided. Be alert for any signs of cutaneous infection. Follow up: the specimen is labeled and sent to pathology for evaluation. Tobacco Intervention He is not a tobacco user. Depression Screen Positive: PHQ-2 score >= 3 or PHQ-9 score >= 9 PHQ-2 Total: 0 (10/02/2020 12:00 PM) PHQ-9 Total: 0 (10/02/2020 12:00 PM) DEPRESSION PLAN OF CARE His depression screen was normal Blood Pressure BP Readings from Last 3 Encounters: 10/02/20 132/76 09/16/20 136/72 04/01/20 124/60 Normal BMI Range: 18 & older: > or = 18.5 and < 25 Body mass index is 29.43 kg/m??. Abnormal high BMI: Patient counseled on lifestyle modifications including weight loss and daily exercise. RACT LEAD documented in this encounter Plan of Treatment Not on file documented as of this encounter Procedures Procedure Name Priority Date/Time Associated Diagnosis Comments PATHOLOGY Routine 10/02/2020 1:06 PM CONTRACT LEAD Neoplasm of uncertain behavior documented in this encounter Results * PATHOLOGY (10/02/2020 1:06 PM CONTRACT LEAD) CASE REPORT Surgical Pathology Report ? Case: [id number] ? Authorizing Provider: ??Ciro Fernandez, ?Collected: ? 10/02/2020 01:06 PM ? Ordering Location: ? [facility] ?Received: ?10/03/2020 07:15 AM ? [facility] [address] ? [address] ? Pathologist: ? Landry Klein MD ? Specimen: ?Nose, right ? 10/04/2020 11:46 AM [facility] FINAL DIAGNOSIS Skin, right nose, shave biopsy: - Seborrheic keratosis, inflamed. 10/04/2020 11:46 AM [facility] S DESCRIPTION Received in one container labeled Brendon Aldana and right nose is a 0.5 x 0.4 cm shave of wooten-pate skin. A distinct lesion is not seen on the skin surface. The margin is inked blue and the tissue is entirely submitted in cassette A1. Additionally received in the container is 1 piece of wooten-pate skin measuring 0.4 x 0.3 x 0.2 cm. The presumed margin is inked green and the tissue is also entirely submitted in cassette A1. [facility] 10/04/2020 11:46 AM [facility] MICROSCOPIC DESCRIPTION The slides are labeled [id number] and Brendon Aldana. The right nose shave biopsy shows an acanthotic lesion with papillomatosis and hyperkeratosis. There is patchy lymphocytic inflammation in the dermis. 10/04/2020 11:46 AM [facility] OPERATIVE PROCEDURE shave biopsy 10/04/2020 11:46 AM [facility] CLINICAL INFORMATION D48.9 - Neoplasm of uncertain behavior [ICD-10-CM] 10/04/2020 11:46 AM CONTRACT LEAD [facility] COMMENT Special stain and/or immunohistochemical results are interpreted with controls that demonstrate appropriate staining reactions. Note on use of immunocytochemistry reagents: This test was developed and its performance characteristics determined by [facility], Department of Laboratory Medicine. It has not been cleared or approved by the U.S. Food and Drug Administration. The FDA has determined that such clearance or approval is not necessary. The test is used for clinical purposes. It should not be regarded as investigational or for research. This laboratory is certified to perform high complexity testing. Cases may have been signed out in part or completely in the following laboratories: [facility], CLIA #[id number] [address] [place] [address] [facility], CLIA #[id number] [address] [place] [address] [facility], CLIA #[id number] [address] [place] [address]. 10/04/2020 11:46 AM CONTRACT LEAD [facility] Tissue ENTIRE NOSE / Unknown Collection / Unknown 10/02/2020 1:06 PM CONTRACT LEAD 10/03/2020 7:15 AM CONTRACT LEAD Ciro Fernandez DO PATHOLOGY/CYTOLOGY O RDERABLES [facility] CLIA# [id number] [address] [place] [address] [id number] documented in this encounter Visit Diagnoses Diagnosis Neoplasm of uncertain behavior- Primary Neoplasm of uncertain behavior, site unspecified documented in this encounter
--- OUTSIDE RECORDS SUMMARY | 2024-08-19 06:42 | XMS_ITS | Encounter Summary ---
Author Organization [facility] Address [address] [facility] Attn: Epic Prelude ADT KAYE SCHMID [address] Care Team Providers Care Floor Renovator Name Role Phone Unavailable Primary Care Provider Unavailabl e Encounter Details Date Type Department Care Team (Latest Contact Info) Description 03/18/2020 Travel Social History Tobacco Use Types Packs/Day [...] have Coronavirus / COVID-19? No / Unsure 03/18/2020 8:10 AM CDT documented as of this encounter Plan of Treatment Not on file documented as of this encounter Visit Diagnoses Not on filedocumented in this encounter
--- OUTSIDE RECORDS SUMMARY | 2024-08-19 06:42 | XMS_ITS | Encounter Summary ---
Author Organization [facility] Address [address] [place] [address] Care Team Providers Care Draw String Knotter Name Role Phone Unavailable Primary Care Provider Unavailabl e Reason for Visit * Reason Onset Date Comments Medication Refill 12/05/2020 Encounter Details Date Type Department Care Team (Late st Contact Info) Description 12/05/2020 Refill [facility] Family Medicine - Bushra Yuan [address] [facility] [address] [place] [address] Ciro Fernandez, DO [address] [facility] [address] [place] [address] Pure hypercholesterolemia Social History Tobacco [...]
--- OUTSIDE RECORDS SUMMARY | 2024-08-19 06:42 | XMS_ITS | Encounter Summary ---
Author Organization [facility] Address [address] [place] [address] Care Team Providers Care Brine Purifier Name Role Phone Unavailable Primary Care Provider Unavailabl e Reason for Visit * Reason Onset Date Comments Medication Refill 05/08/2021 Encounter Details Date Type Department Care Team (Late st Contact Info) Description 05/08/2021 Refill [facility] Family Medicine - Bushra Yuan [address] [facility] [address] [place] [address] Ciro Fernandez, DO [address] [facility] [address] [place] [address] Cough Social History Tobacco Use [...]
--- OUTSIDE RECORDS SUMMARY | 2024-08-19 06:42 | XMS_ITS | Encounter Summary ---
Author Organization [facility] Address [address] [place] [address] Care Team Providers Care Regional Transfer Liaison Name Role Phone Unavailable Primary Care Provider Unavailabl e Reason for Visit * Reason Onset Date Comments Results 10/04/2020 pathology Encounter Details Date Type Department Care Team (Late st Contact Info) Description 10/04/[address] [facility] Family Medicine - [facility] Abundio Yuan [address] [facility] [address] [place] [address] iCro Fernandez, DO [address] [facility] [address] [place] [address] Results (pathology) Social History Tobacco [...] COVID-19? No / Unsure 10/02/2020 12:35 PM EMERGENCY ROOM CLERK documented as of this encounter Miscellaneous Notes * Telephone Encounter - Kay Jesus - 10/04/2020 12:31 PM CST Patient notified and understands. GENCY ROOM CLERK * Telephone Encounter - Kay Jesus - 10/04/2020 12:26 PM CST ----- Message from Ciro Fernandez DO sent at 10/04/2020 11:57 AM EMERGENCY ROOM CLERK ----- Pathology of the biopsy of your skin showed a seborrheic keratosis that was inflamed. This is benign, not a cancer. Continue with recommendations including possibly cryo desiccation if needed. GENCY ROOM CLERK documented in this encounter Plan of Treatment Not on file documented as of this encounter Visit Diagnoses Not on filedocumented in this encounter
--- OUTSIDE RECORDS SUMMARY | 2024-08-19 06:42 | XMS_ITS | Encounter Summary ---
Author Organization [facility] Address [address] [place] [address] Care Team Providers Care Tar Roofer Name Role Phone Unavailable Primary Care Provider Unavailabl e Reason for Visit * Reason Onset Date Comments Medication Refill 11/13/2020 Encounter Details Date Type Department Care Team (Late st Contact Info) Description 11/13/2020 Refill [facility] Family Medicine - [facility] [address] [facility] [address] [place] [address] Courtney Weeks PA-C [address] [place] [address] Cough Social History Tobacco Use Types Packs/Day [...]
--- OUTSIDE RECORDS SUMMARY | 2024-08-19 06:42 | XMS_ITS | Encounter Summary ---
Author Organization [facility] Address [address] [place] [address] Care Team Providers Care Delinquency Counselor Name Role Phone Unavailable Primary Care Provider Unavailabl e Reason for Visit * Reason Comments Medication Refill Encounter Details Date Type Department Care Team (Late st Contact Info) Description 02/08/2021 Refill [facility] Medicine [facility] [address] [facility] [address] [place] [address] Courtney Weeks PA-C [address] [place] [address] Cough Social History Tobacco Use [...] have Coronavirus / COVID-19? No / Unsure 02/05/2021 9:09 AM CDT documented as of this encounter Plan of Treatment Not on file documented as of this encounter Visit Diagnoses Diagnosis Cough documented in this encounter
--- OUTSIDE RECORDS SUMMARY | 2024-08-19 06:42 | XMS_ITS | Encounter Summary ---
Author Organization [facility] Address [address] [facility] Attn: Epic Prelude ADT KAYE SCHMID [address] Care Team Providers Care Record Clerk Name Role Phone Unavailable Primary Care Provider Unavailabl e Encounter Details Date Type Department Care Team (Latest Contact Info) Description 01/15/2020 Travel Social History Tobacco Use Types Packs/Day [...]
--- OUTSIDE RECORDS SUMMARY | 2024-08-19 06:42 | XMS_ITS | Encounter Summary ---
Author Organization [facility] Address [address] [place] [address] Care Team Providers Care Tooth Cutter Pinion Name Role Phone Unavailable Primary Care Provider Unavailabl e Reason for Visit * Reason Onset Date Comments Medication Refill 05/01/2020 Encounter Details Date Type Department Care Team (Late st Contact Info) Description 05/01/2020 Refill [facility] Medicine - [facility] [address]und[address] Yuan [address] [facility] [address] [place] [address] Ciro Fernandez, DO [address] [facility] [address] [place] [address] Social History Tobacco Use Types [...]
--- OUTSIDE RECORDS SUMMARY | 2024-08-19 06:42 | XMS_ITS | Encounter Summary ---
Author Organization [facility] Address [address] [facility] Attn: Epic Prelude ADT KAYE SCHMID [address] Care Team Providers Care School Program Director Name Role Phone Unavailable Primary Care Provider Unavailabl e Encounter Details Date Type Department Care Team (Latest Contact Info) Description 04/01/2020 Travel Social History Tobacco Use Types Packs/Day [...]
--- OUTSIDE RECORDS SUMMARY | 2024-08-19 06:42 | XMS_ITS | Encounter Summary ---
Author Organization [facility] Address [address] [place] [address] Care Team Providers Care Medical Bill Processor Name Role Phone Unavailable Primary Care Provider Unavailabl e Encounter Details Date Type Department Care Team (Late st Contact Info) Description 02/08/2020 Abstract [facility] Medicine - [facility] Abundio Yuan [address] [facility] [address] [place] [address] Ciro Fernandez, DO [address] [facility] [address] [place] [address] Social History Tobacco Use Types [...]
--- OUTSIDE RECORDS SUMMARY | 2024-08-19 06:42 | XMS_ITS | Encounter Summary ---
Author Organization [facility] Address [address] [place] [address] Care Team Providers Care Research Advisor Name Role Phone Unavailable Primary Care Provider Unavailabl e Reason for Visit * Reason Onset Date Comments Kidney Stone 05/26/2021 Encounter Details Date Type Department Care Team (Late st Contact Info) Description 05/26/2021 Telephone [facility] Family Medicine - [facility] [address]undio Yuan [address] [facility] [address] [place] [address] Ciro Fernandez, DO [address] [facility] [address] [place] [address] Kidney Stone Social History Tobacco Use Types Packs/Day Years [...] Telephone Encounter - Tasneem Regalado RMA - 05/26/2021 11:56 AM CDT Pt did not keep the stone. He urinated in the middle of the night and saw it go in the toilet and flushed it before he realized what had happened. States the back pain he was having and nausea are completely gone. No blood in urine. No fever. He will drink plenty of fluids and call us if needed. * Telephone Encounter - Shani Jo - 05/26/2021 10:[address] Fernandez did patient keep the stone? If so he can bring it up so we can send it off. If not aslong as he is not having any symptoms just keep us updated. If patient with symptoms he needs to beseen in the office for evaluation. * Telephone Encounter - Marine Barrett - 05/26/2021 8:08 AM CDT Patient passed a kidney stone lastnight and he wanted to know if he needs to be on a abx or if he needs to see Dr Fernandez. Please advise documented in this encounter Plan of Treatment Not on file documented as of this encounter Visit Diagnoses Not on filedocumented in this encounter
--- OUTSIDE RECORDS SUMMARY | 2024-08-19 06:42 | XMS_ITS | Encounter Summary ---
Author Organization [facility] Address [address] [place] [address] Care Team Providers Care Candy Spreader Helper Name Role Phone Unavailable Primary Care Provider Unavailabl e Reason for Visit * Reason Comments Knee Pain left Encounter Details Date Type Department Care Team (Late st Contact Info) Description 02/02/2020 2:45 PM CDT Office Visit [facility] Medicine - [facility] [address]undio [address] [facility] [address] [place] [address] Ciro Fernandez, DO [address] [facility] [address] [place] [address] Acute non-recurrent frontal sinusitis (Primary Dx); Acute pain of right knee Social History Tobacco Use Types Packs/Day Years [...] Sign Reading Time Taken Comments Blood Pressure 132/78 02/02/2020 2:25 PM CDT Pulse 72 02/02/2020 2:25 PM CDT Temperature - - Respiratory Rate - - Oxygen Saturation - - Inhaled Oxygen Concentration - - Weight 93 kg (205 lb) 02/02/2020 2:25 PM CDT Height 180.3 cm (5' 11 ) 02/02/2020 2:25 PM CDT Body Mass Index 28.59 02/02/2020 2:25 PM CDT documented in this encounter Progress Notes * Ciro Fernandez, DO - 02/02/2020 4:00 PM CDT SUBJECTIVE: Brendon Aldana is a 69 y.o. male who complains of left knee pain that started several days ago. The patient denies injuring the knee. Symptoms: immediate pain. Symptoms have been worsening since it started. Prior history of related problems: no prior problems with this area in the past. The leg does not 'give out' The patient denies numbness in LE. He recently was having right-sided knee pain. He did have an MRI and was evaluated by orthopedics. He was placed in a knee wrap. States he also had a knee injection. He has been walking with a cane and states that he feels like he was just been compensating and using his left knee more and that is why he is having some new knee pain. He was on Aleve 2 pills twice a day but stopped it recently because he was improving on the right knee. Sick Symptoms: He complains of a 2 week history of cough, sore throat, postnasal discharge, MORALES. Tried over the counter antihistamines, OTC cough/cold product of patient's choice PRN and fluids and rest with no improvement. Patient denies chest pain or SOB. No N/V/D. Positive ROS for fatigue. No other symptoms. Negative Sick Contacts Negative Fevers positive for history of allergies. Review of Systems - General ROS: negative for weight changes, fever Respiratory ROS: negative for cough, shortness of breath Cardiovascular ROS: negative for chest pain or dyspnea on exertion Musculoskeletal ROS: negative for other unusual muscle/joint symptoms. Past Medical/Surgical/Social/Family History reviewed as well as Allergies and Medications. OBJECTIVE: Blood pressure 132/78, pulse 72, height 5' 11 (1.803 m), weight 93 kg (205 lb). Appearance: alert, well appearing, and in no distress. Knee exam: Left knee slightly swollen with minimal crepitus, otherwise normal exam, no swelling, tenderness, instability; ligaments intact, FROM, negative drawer sign, negative Christiano sign, negative Camden sign. S1 and S2 normal, no murmurs, clicks, gallops or rubs. Regular rate and rhythm. Chest is clear; no wheezes or rales. Neuro: Normal deep tendon reflexes. Ears normal. Throat and pharynx normal. Neck supple. No adenopathy or masses in the neck or supraclavicular regions. Sinuses non tender. Right enlarged nasal turbinates with green discharge noted. ASSESSMENT: Brendon was seen today for knee pain. Diagnoses and all orders for this visit: Acute non-recurrent frontal sinusitis - amoxicillin (AMOXIL) 500 mg Tablet; Take 1 Tablet (500 mg) by mouth every 8 hours for 10 days. Acute pain of right knee - traMADoL (Ultram) 50 mg tablet; Take 1 Tablet (50 mg) by mouth every 8 hours as needed for Pain, Moderate or Pain, Severe. - naproxen sodium (ALEVE) 220 mg Tablet; Take 2 Tablets (440 mg) by mouth 2 times daily. Continue with follow-up with orthopedics. Knee exercises given. rest the injured area as much as practical, apply ice packs, elevate the injured limb Discussed Risks, Benefits and Alternatives of the current treatment regimen. Call or return to clinic prn if these symptoms worsen or fail to improve as anticipated. TOBACCO COUNSELING He is not a tobacco user. documented in this encounter Plan of Treatment Not on file documented as of this encounter Visit Diagnoses Diagnosis Acute non-recurrent frontal sinusitis- Primary Acute pain of right knee documented in this encounter
--- OUTSIDE RECORDS SUMMARY | 2024-08-19 06:42 | XMS_ITS | Encounter Summary ---
Author Organization [facility] Address [address] [facility] Attn: Epic Prelude ADT KAYE SCHMID [address] Care Team Providers Care Plant Inspector Name Role Phone Unavailable Primary Care Provider Unavailabl e Encounter Details Date Type Department Care Team (Latest Contact Info) Description 02/02/2020 Travel Social History Tobacco Use Types Packs/Day [...]
--- OUTSIDE RECORDS SUMMARY | 2024-08-19 06:42 | XMS_ITS | Encounter Summary ---
Author Organization [facility] Address [address] [place] [address] Care Team Providers Care Cardiopulmonary Technician Name Role Phone Unavailable Primary Care Provider Unavailabl e Reason for Visit * Reason Comments Hypertension chol,follow up labs Encounter Details Date Type Department Care Team (Latest Contact Info) Description 03/07/2021 9:30 AM CDT Office Visit [facility] Medicine - [facility] Abundio Yuan [address] [place] [address] Ciro Fernandez, DO [address] [place] [address] Pure hypercholesterolemia (Primary Dx); Essential hypertension, benign; Prediabetes; Screening for colon cancer; Gastroesophageal reflux disease, unspecified whether esophagitis present [...] Sign Reading Time Taken Comments Blood Pressure 120/80 03/07/2021 8:50 AM CDT Pulse 76 03/07/2021 8:50 AM CDT Temperature 36.6 ??C (97.8 ??F) 03/07/2021 8:50 AM CD T Respiratory Rate - - Oxygen Saturation - - Inhaled Oxygen Concentration - - Weight 89.4 kg (197 lb) 03/07/2021 9:49 AM CDT Height 180.3 cm (5' 11 ) 03/07/2021 8:50 AM CDT Body Mass Index 27.48 03/07/2021 8:50 AM CDT documented in this encounter Progress Notes * Ciro Fernandez, DO - 03/07/2021 11:43 AM CDT SUBJECTIVE: Brendon Aldana is a 70 y.o. male here to discuss medical issues including hypertension and hyperlipidemia. Hypertension: Current medication(s) reviewed. Taking and tolerating medications well. Blood pressures at home/stores/firehouse are running same has at the office. Hypertensive diet compliance: yes Low Sodium Hypercholesterolemia: Current medication(s) reviewed. Taking and tolerating medications well. Cholesterol diet compliance: yes Exercise compliance: yes Prediabetes: Blood sugars are not being checked at home. Low carbohydrate/sugar compliance: yes Exercise compliance: yes Denies chest pain, palpitations, shortness of breath. [...] ROS: negative for unusual headaches OBJECTIVE: BP 120/80 Pulse 76 Temp 97.8 ??F (36.6 ??C) (Temporal) Ht 5' 11 (1.803 m) Wt 89.4 kg (197 lb) BMI 27.48 kg/m?? Appearance: alert, well appearing, and in [...] are normal. Extremities: Peripheral pulses normal, trace bilateral lower leg edema. Otherwise the lower extremities reveal no signs of deep venous thrombosis; calves and thighs are soft without swelling, induration or tenderness, Lara's sign is negative. Psych: Alaina Olivas was seen today for hypertension. Diagnoses and all orders for this visit: Pure hypercholesterolemia - LIPID PANEL; Future - COMPREHENSIVE METABOLIC PANEL; Future Zocor 40 mg Essential hypertension, benign - LIPID PANEL; Future - COMPREHENSIVE METABOLIC PANEL; Future Benicar Prediabetes - COMPREHENSIVE METABOLIC PANEL; Future Screening for colon cancer - OCCULT BLOOD IMMUNOASSAY, COLORECTAL SCREEN; Future Gastroesophageal reflux disease, unspecified whether esophagitis present Prilosec Follow-up with labs in 6 months Discussed Risks, Benefits and Alternatives of the current treatment regimen. Check blood pressure often and report Highs and Lows. The patient is asked to make an attempt to improve diet and exercise patterns to aid in medical management of this problem. TOBACCO COUNSELING He is not a tobacco user. * Kay Jesus, JANY - 03/07/2021 8:59 AM CDT Fall Risk He has had no falls in the past year. Tobacco Intervention He is not a tobacco user. Depression Screen Positive: PHQ-2 score >= 3 or PHQ-9 score >= 9 PHQ-2 Total: 0 (03/07/2021 8:00 AM) PHQ-9 Total: 0 (03/07/2021 8:00 AM) DEPRESSION PLAN OF CARE His depression screen was normal Blood Pressure BP Readings from Last 3 Encounters: 03/07/21 120/80 10/02/20 132/76 09/16/20 136/72 Normal BMI Range: 18 & older: > or = 18.5 and < 25 Body mass index is 27.89 kg/m??. Abnormal high BMI: Patient counseled on lifestyle modifications including weight loss and daily exercise. documented in this encounter Miscellaneous Notes * Result Encounter Note - Ciro Fernandez DO - 09/28/2021 9:20 AM CST Your laboratory studies have been received and are overall normal. It is just time to schedule yourphysical and we will discuss further at your Well Adult Exam. GER OF COMMUNITY RELATIONS documented in this encounter Plan of Treatment Not on file documented as of this encounter Procedures Procedure Name Priority Date/Time Associated Diagnosis Comments LIPID PANEL Routine 09/27/2021 8:47 AM MANAGER OF COMMUNITY RELATIONS Pure hypercholesterolem ia Essential hypertension, benign COMPREHENSIVE METABOLIC PANEL Routine 09/27/2021 8:47 AM MANAGER OF COMMUNITY RELATIONS Pure hypercholesterolem ia Essential hypertension, benign Prediabetes documented in this encounter Results * (ABNORMAL) COMPREHENSIVE METABOLIC PANEL (09/27/2021 8:47 AM MANAGER OF COMMUNITY RELATIONS) GLUCOSE 103(H) 65 - 99 mg/dL [facility] Comment: ? Fasting reference interval For someone without known diabetes, a glucose value between 100 and 125 mg/dL is consistent with prediabetes and should be confirmed with a follow-up test. BUN 17 7 - 25 mg/dL [facility] CREATININE 0.97 0.70 - 1.25 mg/dL [facility] Comment: For patients >49 years of age, the reference limit for Creatinine is approximately 13% higher for people identified as -Uzbek. GFR 79 > OR = 60 mL/min/1 .73m2 [facility] GFR, 92 > OR = 60 mL/min/1 .73m2 [facility] BUN/CREAT RATIO NOT APPLICABLE 6 - 22 (calc) [facility] SODIUM 142 135 - 146 mmol/L [facility] POTASSIUM 4.5 3.5 - 5.3 mmol/L [facility] CHLORIDE 105 98 - 110 mmol/L [facility] CO2 28 20 - 32 mmol/L [facility] CALCIUM 9.1 8.6 - 10.3 mg/dL [facility] TOTAL PROTEIN 6.9 6.1 - 8.1 g/dL [facility] ALBUMIN 4.2 3.6 - 5.1 g/dL [facility] GLOBULIN 2.7 1.9 - 3.7 g/dL (calc) [facility] ALBUMIN/GLOBULIN RATIO 1.6 1.0 - 2.5 (calc) [facility] BILIRUBIN TOTAL 0.7 0.2 - 1.2 mg/dL [facility] ALKALINE PHOSPHATASE 69 35 - 144 U/L [facility] AST 23 10 - 35 U/L [facility] ALT 29 9 - 46 U/L [facility] Comment: FASTING:YES FASTING: YES Test Performed at: [facility] [id number] [place] [address] ??[phone] Agus Valente D.O., MPH Blood 09/27/2021 8:47 AM MANAGER OF COMMUNITY RELATIONS 09/27/2021 8:48 AM MANAGER OF COMMUNITY RELATIONS Ciro Fernandez DO CHEMISTRY ORDERABLES [facility] [address] [place] [address] * (ABNORMAL) LIPID PANEL (09/27/2021 8:47 AM MANAGER OF COMMUNITY RELATIONS) CHOLESTEROL 136 <200 mg/dL [facility] HDL 39(L) > OR = 40 mg/dL [facility] TRIGLYCERIDE 91 <150 mg/dL [facility] LDL CALCULATED 80 mg/dL (calc) [facility] Comment: Reference range: <100 Desirable range <100 mg/dL for primary prevention; ?? <70 mg/dL for patients with CHD or diabetic patients with > or = 2 CHD risk factors. LDL-C is now calculated using the Michele-Neel calculation, which is a validated novel method providing better accuracy than the Friedewald equation in the estimation of LDL-C. Michele SS et al. JACIEL. 2013;310(19): 5664-9061 (http://education.BrandMe crowdmarketing.Tracksmith/faq/SNM745) CHOL/HDL RATIO 3.5 <5.0 (calc) [facility] TOTAL NON-HDL CHOL(LDL+VLDL) 97 <130 mg/dL (calc) [facility] Comment: For patients with diabetes plus 1 major ASCVD risk factor, treating to a non-HDL-C goal of <100 mg/dL (LDL-C of <70 mg/dL) is considered a therapeutic option. Test Performed at: [facility] [address] [place] [place] ??[phone] Agus Valente D.O., MPH Blood 09/27/2021 8:47 AM MANAGER OF COMMUNITY RELATIONS 09/27/2021 8:48 AM MANAGER OF COMMUNITY RELATIONS Ciro Fernandez DO CHEMISTRY ORDERABLES [facility] [address] [place] [address] documented in this encounter Visit Diagnoses Diagnosis Pure hypercholesterolemia- Primary Essential hypertension, benign Prediabetes Other abnormal glucose Screening for colon cancer Special screening for malignant neoplasms, colon Gastroesophageal reflux disease, unspecified whether esophagitis present documented in this encounter
--- OUTSIDE RECORDS SUMMARY | 2024-08-19 06:42 | XMS_ITS | Encounter Summary ---
Author Organization [facility] Address [address] [place] [address] Care Team Providers Care Biomedical Equipment Specialist Name Role Phone Unavailable Primary Care Provider Unavailabl e Reason for Visit * Reason Comments Ear Pain Encounter Details Date Type Department Care Team (Late st Contact Info) Description 04/01/2020 3:30 PM CDT Office Visit [facility] Medicine - [facility] Kwabena [address] [address] [place] [address] Ciro Fernandez, DO [address] [place] [address] ETD (Eustachian tube dysfunction), bilateral (Primary Dx) Social History Tobacco Use Types [...] Sign Reading Time Taken Comments Blood Pressure 124/60 04/01/2020 3:15 PM CDT Pulse 76 04/01/2020 3:15 PM CDT Temperature 37 ??C (98.6 ??F) 04/01/2020 3:15 PM CDT Respiratory Rate - - Oxygen Saturation - - Inhaled Oxygen Concentration - - Weight 93 kg (205 lb) 04/01/2020 3:15 PM CDT Height 180.3 cm (5' 11 ) 04/01/2020 3:15 PM CDT Body Mass Index 28.59 04/01/2020 3:15 PM CDT documented in this encounter Progress Notes * Ciro Fernandez, DO - 04/01/2020 4:30 PM CDT 70 y.o. male presents with bilateral ear pain for 4 days. Negative Fever. No nausea, vomiting, diarrhea. Patient denies hearing loss, tinnitus. OTC pain reliever/fever oil and gas exploration technician has been helpful. Negative Sick Contacts Review of Systems - Ophthalmic ROS: negative for signs of eye infection Respiratory ROS: negative for cough, shortness of breath Cardiovascular ROS: negative for chest pain Neurological ROS: Denies severe headache or weakness Skin: No unusual skin rash noted by patient. Past Medical/Surgical/Social/Family History reviewed as well as Allergies and Medications. Blood pressure 124/60, pulse 76, temperature 98.6 ??F (37 ??C), temperature source Temporal, height5' 11 (1.803 m), weight 93 kg (205 lb). Gen'l: NAD HEENT: left TM is not Injected with fluid behind TM right TM is not Injected with fluid behind TM External Auditory Canals normal without dermatitis Excessive or impacted wax was not visualized. Throat and pharynx normal. Neck supple. No adenopathy or masses in the neck or supraclavicular regions. Sinuses non tender. Bilaterally pale enlarged nasal turbinates with clear rhinorrhea. Lungs: Clear to auscultation bilaterally. No wheezes, rhonchi, crackles. CV: RRR without murmurs. Skin: No unusual rashes or suspicious skin lesions noted. A/P: Brendon was seen today for ear pain. Diagnoses and all orders for this visit: ETD (Eustachian tube dysfunction), bilateral - azelastine (ASTELIN) 137 mcg/actuation nasal spray; Administer 2 Sprays in each nostril daily at bedtime. Continue with Zyrtec-D in the morning and Zyrtec at nighttime continue with Flonase Rest OTC pain reliever/fever oil and gas exploration technician as needed Discussed Risks, Benefits and Alternatives of the current treatment regimen. Call or return to clinic prn if these symptoms worsen or fail to improve as anticipated. TOBACCO COUNSELING He is not a tobacco user. documented in this encounter Plan of Treatment Not on file documented as of this encounter Visit Diagnoses Diagnosis ETD (Eustachian tube dysfunction), bilateral- Primary documented in this encounter
--- OUTSIDE RECORDS SUMMARY | 2024-08-19 06:42 | XMS_ITS | Encounter Summary ---
Author Organization [facility] Address [address] Attn: Epic Prelude ADT KAYE [place] [address] Care Team Providers Care Administrative Assistant Coordinator Name Role Phone Unavailable Primary Care Provider Unavailabl e Encounter Details Date Type Department Care Team (Latest Contact Info) Description 03/07/2021 Travel Social History Tobacco Use Types Packs/Day [...]
--- OUTSIDE RECORDS SUMMARY | 2024-08-19 06:42 | XMS_ITS | Encounter Summary ---
Author Organization [facility] Address [address] Attn: Epic Prelude ADT [place] [address] Care Team Providers Care Manager Respiratory Name Role Phone Unavailable Primary Care Provider Unavailabl e Encounter Details Date Type Department Care Team (Latest Contact Info) Description 02/05/2021 Travel Social History Tobacco Use Types Packs/Day [...]
--- OUTSIDE RECORDS SUMMARY | 2024-08-19 06:42 | XMS_ITS | Encounter Summary ---
Author Organization [facility] Address [address] [place] [address] Care Team Providers Care Search Developer Name Role Phone Unavailable Primary Care Provider Unavailabl e Reason for Visit * Reason Onset Date Comments Medication Refill 02/26/2021 Encounter Details Date Type Department Care Team (Late st Contact Info) Description 02/26/2021 Refill [facility] Family Medicine - Bushra Yuan [address] [facility] [address] [place] [address] Ciro Fernandez, DO [address] [facility] [address] [place] [address] Pure hypercholesterolemia Social History Tobacco [...]
--- OUTSIDE RECORDS SUMMARY | 2024-08-19 06:42 | XMS_ITS | Encounter Summary ---
Author Organization [facility] Address [address] [place] [address] Care Team Providers Care Area Operations Manager Name Role Phone Unavailable Primary Care Provider Unavailabl e Reason for Visit * Reason Onset Date Comments Results 09/09/2020 labs Encounter Details Date Type Department Care Team (Late st Contact Info) Description 09/09/2020 Telephone [facility] Family Medicine - [facility] Abundio Yuan [address] [place] [address] Ciro Fernandez DO [address] [address] [facility] [address] [address] [place] [address] Results (labs) Social History Tobacco [...] * Telephone Encounter - Jennifer Long - 09/09/2020 9:53 AM CST PT INFORMED/SK H ENGINEER * Telephone Encounter - Kay Jesus - 09/09/2020 9:13 AM CST ----- Message from Ciro Fernandez DO sent at 09/08/2020 9:00 AM WATCH ENGINEER ----- Your laboratory studies have been received, please return to office for a follow up examination specifically for a 30 minute visit because you are due for a WELL ADULT EXAMINATION. H ENGINEER documented in this encounter Plan of Treatment Not on file documented as of this encounter Visit Diagnoses Not on filedocumented in this encounter
--- OUTSIDE RECORDS SUMMARY | 2024-08-19 06:42 | XMS_ITS | Encounter Summary ---
Author Organization [facility] Address [address] Attn: Epic Prelude ADT [place]E [place] [address] Care Team Providers Care Environmental Services Manager Name Role Phone Unavailable Primary Care Provider Unavailabl e Encounter Details Date Type Department Care Team (Latest Contact Info) Description 10/02/2020 Travel Social History Tobacco Use Types Packs/Day [...] COVID-19? No / Unsure 10/02/2020 12:35 PM VIBRATION ENGINEER documented as of this encounter Plan of Treatment Not on file documented as of this encounter Visit Diagnoses Not on filedocumented in this encounter
--- OUTSIDE RECORDS SUMMARY | 2024-08-19 06:42 | XMS_ITS | Encounter Summary ---
Author Organization [facility] Address [address] [place] [address] Care Team Providers Care Lcpc Name Role Phone Unavailable Primary Care Provider Unavailabl e Reason for Visit * Reason Comments Medication Refill Encounter Details Date Type Department Care Team (Late st Contact Info) Description 04/26/2020 Refill [facility] Medicine [facility] Kw[address]ena [address] [facility] [address] [place] [address] Courtney Weeks PA-C [address] [place] [address] Cough Social History Tobacco Use [...]
--- OUTSIDE RECORDS SUMMARY | 2024-08-19 06:42 | XMS_ITS | Encounter Summary ---
Author Organization [facility] Address [address] [facility] Attn: [place] [address] Care Team Providers Care Glazing Superintendent Name Role Phone Unavailable Primary Care Provider Unavailabl e Encounter Details Date Type Department Care Team (Late st Contact Info) Description 03/08/2021 Orders Only Initial Department [address] [facility] ATTN: [place] [address] Provider, Historical Social History Tobacco Use Types Packs/Day Years [...] Procedure Name Priority Date/Time Associated Diagnosis Comments OCCULT BLOOD IMMUNOASSAY, COLORECTAL SCREEN Routine 03/08/2021 12:00 AM CDT documented in this encounter Results * OCCULT BLOOD IMMUNOASSAY, COLORECTAL SCREEN (03/08/2021 12:00 AM CDT) Pathologist [facility] FECAL GLOBIN [facility] Comment: ??FECAL GLOBIN BY IMMUNOCHEMISTRY ?Micro Number: ?[id number] ??Test Status: ? Final ??Specimen Source: ?? Insure (tm) fobt test card ??Specimen Quality: ??Adequate ??Fecal Globin: ?Not Detected FASTING: UNKNOWN Test Performed at: [facility] ??[id number] Agus Valente D.O., MPH 03/08/2021 03/16/2021 4:0 7 PM CDT Ciro Fernandez DO [facility] [address] [place] [address] [place] [address] documented in this encounter Visit Diagnoses Not on filedocumented in this encounter
--- OUTSIDE RECORDS SUMMARY | 2024-08-19 06:42 | XMS_ITS | Encounter Summary ---
Author Organization [facility] Address [address] [place] [address] Care Team Providers Care Facility Sales And Admin Name Role Phone Unavailable Primary Care Provider Unavailabl e Reason for Visit * Reason Comments Medication Refill Encounter Details Date Type Department Care Team (Late st Contact Info) Description 04/27/2021 Refill [facility] Medicine - Bushra Yuan [address] [facility] Abundio [address] [place] [address] Ciro Fernandez, DO [address] [place] [address] Social History Tobacco Use Types [...]
--- OUTSIDE RECORDS SUMMARY | 2024-08-19 06:43 | XMS_ITS | Encounter Summary ---
Author Organization [facility] Address [address] [place] [address] Care Team Providers Care Agricultural Equipment Sales Engineer Name Role Phone Unavailable Primary Care Provider Unavailabl e Reason for Visit * Reason Onset Date Comments Medication Refill 03/13/2019 Encounter Details Date Type Department Care Team (Late st Contact Info) Description 03/13/2019 Refill [facility] - [facility] Abundio Yuan [address] [facility] [address] [place] [address] Ciro Fernandez, DO [address] [facility] [facility] [address] [place] [address] Pure hypercholesterolemia; Essential hypertension, benign Social History Tobacco Use [...] this encounter Visit Diagnoses Diagnosis Pure hypercholesterolemia Essential hypertension, benign documented in this encounter
--- OUTSIDE RECORDS SUMMARY | 2024-08-19 06:43 | XMS_ITS | Encounter Summary ---
Author Organization [facility] Address [address] [place] [address] Care Team Providers Care Med Surg Rn Name Role Phone Unavailable Primary Care Provider Unavailabl e Reason for Visit * Reason Comments Follow Up Right Shoulder * Eval and Treat (Routine) - Closed Specialty Diagnoses / Procedures Referred By Georgie gallagher Referred To Contact Orthopedic Surgery Diagnoses Complete tear of right rotator cuff Tear of right supraspinatus tendon, initial encounter Ciro Fernandez, DO [address] [facility] [address] [place] [address] [place] [address] [place] [address] Referral ID Status Reason Start Date Expiration Date V isits Requested Visits Authorized [id number] Closed CRS To Schedule (STL) 08/19/2018 08/08/2019 99 99 Encounter Details Date Type Department Care Team (Latest Contact Info) Description 12/06/2018 10:30 AM CDT Office Visit [facility] Orthopedic Surgery - [place] [address] [place] [address] Jennifer Paetl, ANP [facility] [address] [address] S/P right rotator cuff repair (Primary Dx); S/P arthroscopy of right shoulder; Status post subacromial decompression Social History Tobacco Use Types Packs/Day Years [...] Sign Reading Time Taken Comments Blood Pressure 131/83 12/06/2018 10:29 AM CDT Pulse 62 12/06/2018 10:29 AM CDT Temperature - - Respiratory Rate - - Oxygen Saturation - - Inhaled Oxygen Concentration - - Weight 96 kg (211 lb 11.2 oz) 12/06/2018 10:29 A M CDT Height 180.3 cm (5' 11 ) 12/06/2018 10:29 AM CDT Body Mass Index 29.53 12/06/2018 10:29 AM CDT documented in this encounter Progress Notes * Jennifer aPtel, ANP - 12/06/2018 4:03 PM CDT ORTHOPEDIC POST-OP SHOULDER ARTHROSCOPY PROGRESS NOTE Name: Brnedon Aldana Age: 68 y.o. Date of : 1950 CSN: [id number] Date of service: 12/06/2018 Chief Complaint Patient presents with ??? Follow Up Right Shoulder Subjective: Brendon Aldana presents for 10 week postoperative visit following right shoulder arthroscopy with subacromial decompression, and rotator cuff repair. Surgery was on 09/30/2018. Patient reports shoulder is doing well. He denies use of pain medication for shoulder symptoms; however, does occasionallyhave nighttime symptoms. He does occasionally have twinging pain with activity and with physical therapy. He has been attending outpatient physical therapy twice weekly. He performs home exercise program twice weekly. Patient returned to work about 3-4 weeks ago, performing sedentary work.. PMHx: Past Medical History: Diagnosis Date ??? Community acquired pneumonia ??? Contact dermatitis and other eczema, due to unspecified cause ??? Essential hypertension ??? [place] (hard of hearing) ??? Motion sickness PSHx: Past Surgical History: Procedure Laterality Date ??? HX HEART CATHETERIZATION 1992 ??? 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 HX VASECTOMY 1980 ??? IN COLONOSCOPY FLX DX W/COLLJ SPEC WHEN PFRMD 01/12/2014 COLONOSCOPY performed by Modesta Wise DO at [facility] GI [facility] ??? IN SHLDR ARTHROSCOP,SURG,W/ROTAT CUFF REPR Right 09/30/2018 RIGHT SHOULDER SCOPE W ROTATOR CUFF REPAIR, SUBACROMIAL DECOMPRESSION, W EXTENSIVE DEBRIDEMENT performed by Nehemiah Castellano MD at [facility] CC OR ALLERGIES: Allergies Allergen Reactions ??? Bactrim [Sulfamethoxazole-Trimethoprim] Rash ??? Medrol [Methylprednisolone] Rash and Other (See Comments) redness MEDICATIONS: Current Outpatient Medications Medication Sig Dispense Refill ??? olmesartan (BENICAR) 20 mg tablet Take 1 Tablet (20 mg) by mouth daily. 30 Tablet 1 ??? ibuprofen (MOTRIN) 800 mg tablet Take 1 Tablet (800 mg) by mouth every 8 hours as needed for Pain, Mild. 60 Tablet 0 ??? omeprazole (PriLOSEC) 20 mg Capsule, Delayed Release(E.C.) Take 1 Capsule (20 mg) by mouth daily. 180 Capsule 0 ??? simvastatin (ZOCOR) 40 mg tablet Take 1 Tablet (40 mg) by mouth late in the day. 90 Tablet 1 ??? cetirizine-pseudoephedrine sr 12 hour (ZyrTEC-D) 5-120 mg tablet TAKE ONE TABLET BY MOUTH TWO TIMES DAILY. 72 Tablet 5 ??? fluticasone (FLONASE) 50 mcg/spray [place], Suspension Administer 2 Sprays in each nostril daily.48 Gram 3 ??? Cholecalciferol, Vitamin D3, (VITAMIN D3) 2,000 unit Capsule Take 1 Cap by mouth daily. ??? UBIDECARENONE (CO Q-10 ORAL) Take by mouth. No current facility-administered medications for this visit. Family History: Family History Problem Relation Name Age of Onset ??? Heart Disease Father ??? High Cholesterol Father ??? Heart Disease Mother ??? Heart Failure Mother ??? Healthy Sister Half-sister ??? Healthy Brother ??? Colon Cancer Maternal Grandmother ??? Cancer Maternal Grandmother ??? Diabetes Neg Hx ??? Hypertension Neg Hx ??? Asthma Neg Hx ??? Emphysema Neg Hx ??? Bronchitis Neg Hx ??? Lung Cancer Neg Hx ??? Mesothelioma Neg Hx ??? Tuberculosis Neg Hx ??? Glaucoma Neg Hx ??? Macular Degen Neg Hx Social History: Social History Socioeconomic History ??? Marital status: Spouse name: Not on file ??? Number of children: Not on file ??? Years of education: Not on file ??? Highest education level: Not on file Occupational History Employer: [employer] Social Needs ??? Financial resource strain: Not on file ??? Food insecurity: Worry: Not on file Inability: Not on file ??? Transportation needs: Medical: Not on file Non-medical: Not on file Tobacco Use ??? Smoking status: Never Smoker ??? Smokeless tobacco: Never Used Substance and Sexual Activity ??? Alcohol use: No ??? Drug use: No ??? Sexual activity: Not on file Lifestyle ??? Physical activity: Days per week: Not on file Minutes per session: Not on file ??? Stress: Not on file Relationships ??? Social connections: Talks on phone: Not on file Gets together: Not on file Attends [employer] service: Not on file Active member of [...] Social History Narrative ??? Not on file ROS Objective: General : alert, in no distress Braces: None Sutures: Sutures out. Incisions: healing well, no significant drainage, no dehiscence, no significant erythema Sensory: Intact to entire right upper extremity Vascular: 2+ radial pulses, brisk capillary refill Active forward flexion about 120 degrees, abduction about 95 degrees, and external rotation about 60 degrees. Assessment: ORTHOPEDIC IMPRESSION: ICD-10-CM ICD-9-CM 1. S/P right rotator cuff repair Z98.890 V45.89 2. S/P arthroscopy of right shoulder Z98.890 V45.89 3. Status post subacromial decompression Z98.890 V45.89 Plan: PLAN: Orders Placed This Encounter ??? PT EVAL AND TREAT The patient's questions were answered. He will continue outpatient physical therapy. I recommended he participate in home exercise program at least once daily on the days not attending outpatient physical therapy. Follow up: 4 weeks. Normal BMI Range: 18 & older: > or = 18.5 and < 25 Body mass index is 29.53 kg/m??. Abnormal high BMI: Patient counseled on lifestyle modifications including weight loss and daily exercise. TOBACCO COUNSELING He is not a tobacco user. documented in this encounter Plan of Treatment Not on file documented as of this encounter Visit Diagnoses Diagnosis S/P right rotator cuff repair- Primary S/P arthroscopy of right shoulder Status post subacromial decompression documented in this encounter
--- OUTSIDE RECORDS SUMMARY | 2024-08-19 06:43 | XMS_ITS | Encounter Summary ---
Author Organization [facility] Address [address] [place] [address] Care Team Providers Care Cork Painter And Grader Name Role Phone Unavailable Primary Care Provider Unavailabl e Reason for Visit * Auth/Cert Specialty Diagnoses / Procedures Referred By Contac t Referred To Contact General Surgery Diagnoses Right shoulder rotator cuff tear Procedures ME SHLDR ARTHROSCOP,SURG,W/ROTAT CUFF REPR ME SHOULDER SCOPE BONE SHAVING ME SHLDR ARTHROSCOP,EXTEN DEBRIDE ME REPAIR ROTATOR CUFF,CHRONIC RIGHT SHOULDER SCOPE W ROTATOR CUFF REPAIR, SUBACROMIAL DECOMPRESSION, W EXTENSIVE DERIDEMENT [facility] [address] [facility] [address] [place] [address] Referral ID Status Reason Start Date Expiration Date Visits Re quested Visits Authorized [id number] 1 1 Encounter Details Date Type Department Care Team (Late st Contact Info) Description 09/30/2018 9:17 AM ELEMENTARY SCHOOL COUNSELOR Anesthesia Event [facility] [address] [facility] [address] [place] [address] Desiree Tsang Jr., MD [address] [place] [address] Anesthesia Record Procedure Summary Procedure Name Responsible Anesthesiologist Anesthesia Start Time Anesthesia Stop Time RIGHT SHOULDER SCOPE W ROTATOR CUFF REPAIR, SUBACROMIAL DECOMPRESSION, W EXTENSIVE DEBRIDEMENT (Right: Shoulder) Desiree Tsang Jr., MD 09/30/18 0917 09/30/18 1137 Events Date Time Event Comment 09/30/2018 0820 0822 AN Equip Check Anesthesia eq uipment and materials checked in accordance with local policy. 0900 Rapid Seq Induction Ultrasou nd guided right interscalene block with sedation. See note 0917 An Start 0917 An Start Data 0917 Pre-Induction Immediate pre- induction anesthetic assessment performed. Vital signs as noted on graphic. 0917 In Room This event disp lays the In Room time documented in the Surgical Log. Deleting this event will not remove it from the log but will remove it from the Grid and Graph timeline. 0921 An Induction 0923 An Intubation 0924 Anesthesia Ready 0952 Procedure Start This event d isplays the Procedure Start time documented in the Surgical Log. Deleting this event will not remove it from the log but will remove it from the Grid and Graph timeline. 1131 An Extubation Emergence unev entful Awake, spontaneous respirations. Adequate muscle strength demonstrated Adequate tidal volume. Orapharynx suctioned. Extubated with positive pressure ventilation. 1137 An Stop 1137 an stop data Meds Name Total ondansetron (ZOFRAN) 4??mg/2 mL injectio n 4 mg dexamethasone (DECADRON) 4 mg/mL injecti on 6 mg ceFAZolin in sterile water (ANCEF) 2 gra m/20 mL IV Syringe (PREMIX) 2,000 mg 2,000 mg propofol (DIPRIVAN) 10??mg/mL injection 290 mg fentaNYL (SUBLIMAZE) PF 50??mcg/mL injec tion 100 mcg midazolam PF (VERSED) 1 mg/mL injection 2 mg rocuronium (ZEMURON) 10 mg/mL 5 mL injec tion 40 mg ePHEDrine 50 mg/mL injection 65 mg neostigmine (PROSTIGMINE) 4 mg/4 mL (1 m g/mL) injection 2 mg glycopyrrolate (ROBINUL) 0.2 mg/ mL inje ction 0.4 mg lactated ringers infusion 1,300 mL * Agents Name N2O Air Sevoflurane % Sevoflurane O2 N2O Inspired N2O O2 * Blood No blood administrations on file. Lines, Drains, and Airways Type Details Placement Removal Wound 09/30/18; 951; No; 1; Right; shoulder; surgical 09/30/18951 by Erna Walker RN Peripheral IV Pre-Hospital Start: No; Orientation: Left; Location: Hand; Device: Angiocath; Gauge: 18 gauge; Needle Length: 1.25 in length; Insertion Attempts: 1; Patient Tolerance: tolerated well; Removal Indication: no longer indicated; Removal Interventions: direct pressure, catheter intact 09/30/18 0851 by Najma Avelar RN 09/30/18 1303 by Alona Roberts RN Endotracheal Airway Type: ETT, Oral (eas y BMV); Cuff Pressure: minimal leak technique, minimal occluding volume, cuff inflated; Size: 7; Site: mouth; Attempts: 1; FOV: II; cm: 22; Device: Straight Blade, Stylet; Blade: 2; Secured: secured with tape; Cricoid: Yes; Verification: Auscultated bilateral breath sounds, Equal chest movement, Continuous waveform capnography 09/30/18 0923 by Freya Jimenez AA-C 09/30/18 1132 by Freya Jimenez AA-C documented in this encounter Social History Tobacco [...] OR Notes * Anesthesia Postprocedure Evaluation - Desiree Tsang Jr., MD - 09/30/2018 1:19 PM CST Phase I Postanesthesia Evaluation Including Modified Amor Score Patient seen and evaluated: Modified Amor Score: Score: 10 (09/30/18 1300) COMMENTS: No apparent Anesthesia related complications RESPIRATORY FUNCTION: Respiration: able to breath and cough freely (09/30/18 1300) [2=able to breathe and cough freely, 1=dyspnea, limited breathing or tachypnea, 0=apnea or mechanicventilator] O2 Saturation: able to maintain O2 saturation greater than 92% on room air (09/30/18 1300) [2=able to maintain O2 saturation greater than 92% on room air, 1=needs O2 inhalation to maintain O2 saturation greater than 90%, 0=O2 saturation less than 90% even with O2 supplement] Resp: 25 (09/30/18 1255)SpO2: 93 % (09/30/18 1255) CARDIOVASCULAR FUNCTION: Heart Rate: 68 bpm (09/30/18 1255) BP: 129/77 (09/30/18 1255) Circulation: BP within 20% of preanesthetic level (09/30/18 1300) [2=BP within 20% of preanesthetic level, 1=BP within 20-49% of preanesthetic level, 0=BP within 50%of preanesthetic level] MENTAL STATUS, NEURO, ACTIVITY: PATIENT PARTICIPATION IN EVALUATION:yes Consciousness: fully awake (09/30/18 1300) [2=fully awake, 1=arousable on calling, 0=not responding] Activity: able to move 4 extremities voluntarily or on command (09/30/18 1300) [2=able to move 4 extremities voluntarily or on command, 1=able to move 2 extremities voluntarily or on command, 0=unable to move extremities voluntarily or on command] TEMPERATURE: Temp: 36.7 ??C (09/30/18 1134) PAIN: NAUSEA AND VOMITING: no nausea and no vomiting POSTOPERATIVE HYDRATION: well hydrated Intake/Output Summary (Last 24 hours) at 09/30/18 1349 Last data filed at 09/30/18 1300 Gross per 24 hour Intake 1500 ml Output 0 ml Net 1500 ml Desiree Tsang Jr, MD 09/30/2018 1:19 PM ENTARY SCHOOL COUNSELOR * Anesthesia Handoff - Freya Jimenez AA-C - 09/30/2018 11:36 AM CST Post-Anesthetic transfer of care report elements to [...] questions and acknowledgement of understanding. Vital Signs: BP: 137/71 Pulse: 57 Heart Rate: 70 bpm (09/30/2018 9:10 AM) Temp: 36.4 ??C (09/30/2018 8:28 AM) Resp: 12 SpO2: 100% 11:36 AM SONU Olsen ENTARY SCHOOL COUNSELOR * Anesthesia Procedure Notes - Desiree Tsang Jr., MD - 09/30/2018 9:43 AM CSTAssociated Order(s): PERIPHERAL BLOCK Interscalene Brachial Plexus Block Patient location during procedure: Post-op Start time: 09/30/2018 9:00 AM End time: 09/30/2018 9:11 AM Reason for block: at surgeon's request and post-op pain management Staffing Performed by: DESIREE TSANG JR Preanesthetic Checklist Completed: patient identified, site marked, surgical consent, pre-op evaluation, timeout performed,IV checked, risks and benefits discussed and monitors and equipment checked Peripheral Block: Hand hygiene performed prior to procedure Patient was prepped and draped in usual sterile fashion Time out performed Patient position: Supine Prep: ChloraPrep Patient monitoring: Continuous pulse oximetry, EKG, Heart rate and Non-invasive blood pressure Block type: Interscalene Laterality: Right Injection technique: Single-shot [place] Identification: ultrasound guided Skin Infiltration: Lidocaine 1% Local injected: Lidocaine and Ropivacaine (15 ml 0>5% ropivicaine + 15 ml 2% lidocaine = 30 ml) Needle Needle type: Short-bevel Needle gauge: 21 G Needle length: 10 cm Needle localization: Ultrasound guidance Nerve Stimulator or Paresthesia Response Motor response or paresthesia obtained mA ms Depth (cm) Sedation Given: Midazolam (mg): 2 Fentanyl (mcg): 50 Patient Response: Responsive to verbal stimuli and Responsive to physical stimuli Narrative Events: easy and well tolerated ENTARY SCHOOL COUNSELOR * Anesthesia Preprocedure Evaluation - Desiree Tsang Jr., MD - 09/30/2018 8:18 AM CST Relevant Problems (+) Esophageal reflux Anesthesia Evaluation Patient summary reviewed and Nursing notes reviewed Airway Mallampati: III TM distance: >3 FB Neck ROM: full Dental (+) caps Pulmonary breath sounds clear to auscultation ROS comment: Denies current SOB, wheezing, or difficulty breathing Cardiovascular (+) hypertension, Rhythm: regular Rate: normal ROS comment: Denies current chest pain or discomfort. Neuro/Psych - negative ROS GI/Hepatic/Renal (+) GERD well controlled, Endo/Other Comments: Pure hypercholesterolemia Abdominal Anesthesia History No history of anesthetic complications. Anesthesia Plan ASA 2 General and Interscalene block Intravenous induction NPO status > 8 hours Anesthetic plan and risks discussed with Patient and Spouse. Plan discussed with Surgeon and Anesthesiologist Performance Test Engineer. Post-op Pain Control Plan to use Block for post-op pain control. ENTARY SCHOOL COUNSELOR documented in this encounter Plan of Treatment Not on file documented as of this encounter Procedures Procedure Name Priority Date/Time Associated Diagnosis Comments ME ANESTHESIA BLOCK PB PLACEHOLDER CHARGE Routine 09/30/2018 9:43 AM ELEMENTARY SCHOOL COUNSELOR Procedure Note - Desiree Tsang Jr., MD - 09/30/2018 9:43 AM CSTThis note is in progress. Interscalene Brachial Plexus Block Patient location during procedure: Post-op Start time: 09/30/2018 9:00 AM End time: 09/30/2018 9:11 AM Reason for block: at surgeon's request and post-op pain management Staffing Performed by: DESIREE TSANG JR Preanesthetic Checklist Completed: patient identified, site marked, surgical consent, pre-opevaluation, timeout performed, IV checked, risks and benefits discussedand monitors and equipment checked Peripheral Block: Hand hygiene performed prior to procedure Patient was prepped and draped in usual sterile fashion Time out performed Patient position: Supine Prep: ChloraPrep Patient monitoring: Continuous pulse oximetry, EKG, Heart rate andNon-invasive blood pressure Block type: Interscalene Laterality: Right Injection technique: Single-shot [place] Identification: ultrasound guided Skin Infiltration: Lidocaine 1% Local injected: Lidocaine and Ropivacaine (15 ml 0>5% ropivicaine + 15 ml2% lidocaine = 30 ml) Needle Needle type: Short-bevel Needle gauge: 21 G Needle length: 10 cm Needle localization: Ultrasound guidance Nerve Stimulator or Paresthesia Response Motor response or paresthesia obtained mA ms Depth (cm) Sedation Given: Midazolam (mg): 2 Fentanyl (mcg): 50 Patient Response: Responsive to verbal stimuli and Responsive to physicalstimuli Narrative Events: easy and well tolerated documented in this encounter Visit Diagnoses Not on filedocumented in this encounter Administered Medications Inactive Administered Medications - up to 3 most recent administrations Medication Order MAR Action Action Date Dose Rate Site ceFAZolin in sterile water (ANCEF) 2 gram/20 mL IV Syringe (PREMIX) 2,000 mg 2,000 mg, IV, PRE-PROCEDURE ONCE, 1 dose, Starting on Wed09/30/18 at 0814, Until Wed09/30/18 at 0931, Routine, Pre-op, Antibiotic Indication: Surgical prophylaxis Given 09/30/2018 9:26 AM ELEMENTARY SCHOOL COUNSELOR 2,000 mg dexamethasone (DECADRON) injection INTRA-PROCEDURE PRN, Starting on Wed09/30/18 at 0943, Until Wed09/30/18 at 1137, Routine, Anesthesia Intra-op Given 09/30/2018 9:43 AM ELEMENTARY SCHOOL COUNSELOR 6 mg ePHEDrine injection INTRA-PROCEDURE PRN, Starting on Wed09/30/18 at 0955, Until Wed09/30/18 at 1137, Routine, Anesthesia Intra-op Given 09/30/2018 10:55 AM ELEMENTARY SCHOOL COUNSELOR 5 mg Given 09/30/2018 10:42 AM ELEMENTARY SCHOOL COUNSELOR 10 mg Given 09/30/2018 10:40 AM ELEMENTARY SCHOOL COUNSELOR 5 mg fentaNYL PF (SUBLIMAZE) 50 mcg/mL injection INTRA-PROCEDURE PRN, Starting on Wed09/30/18 at 0917, Until Wed09/30/18 at 1137, Pain (See admin instructions), Routine, Anesthesia Intra-op Given 09/30/2018 11:16 AM ELEMENTARY SCHOOL COUNSELOR 50 mcg Given 09/30/2018 9:00 AM ELEMENTARY SCHOOL COUNSELOR 50 mcg glycopyrrolate (ROBINUL) injection INTRA-PROCEDURE PRN, Starting on Wed09/30/18 at 1111, Until Wed09/30/18 at 1137, Routine, Anesthesia Intra-op Given 09/30/2018 11:11 AM ELEMENTARY SCHOOL COUNSELOR 0.4 mg lactated ringers infusion IV, at 150 mL/hr, PRE-PROCEDURE CONTINUOUS, Starting on Wed09/30/18 at 0815, Until Wed09/30/18 at 1534, Routine, Pre-op New Bag 09/30/2018 9:54 AM ELEMENTARY SCHOOL COUNSELOR New Bag 09/30/2018 8:52 AM ELEMENTARY SCHOOL COUNSELOR 150 mL/hr midazolam (PF) (VERSED) injection INTRA-PROCEDURE PRN, Starting on Wed09/30/18 at 0917, Until Wed09/30/18 at 1137, Routine, Anesthesia Intra-op Given 09/30/2018 9:00 AM ELEMENTARY SCHOOL COUNSELOR 2 mg neostigmine (PROSTIGMINE) 4 mg/4 mL (1 mg/mL) injection INTRA-PROCEDURE PRN, Starting on Wed09/30/18 at 1111, Until Wed09/30/18 at 1137, Routine, Anesthesia Intra-op Given 09/30/2018 11:11 AM ELEMENTARY SCHOOL COUNSELOR 2 mg ondansetron (ZOFRAN) 4 mg/2 mL injection INTRA-PROCEDURE PRN, Starting on Wed09/30/18 at 0943, Until Wed09/30/18 at 1137, Nausea/Emesis, Routine, Anesthesia Intra-op Given 09/30/2018 9:43 AM ELEMENTARY SCHOOL COUNSELOR 4 mg propofol (DIPRIVAN) injection INTRA-PROCEDURE PRN, Starting on Wed09/30/18 at 0921, Until Wed09/30/18 at 1137, Anesthesia Intra-op Given 09/30/2018 11:16 AM ELEMENTARY SCHOOL COUNSELOR 50 mg Given 09/30/2018 9:21 AM ELEMENTARY SCHOOL COUNSELOR 200 mg Given 09/30/2018 9:00 AM ELEMENTARY SCHOOL COUNSELOR 40 mg rocuronium (ZEMURON) injection INTRA-PROCEDURE PRN, Starting on Wed09/30/18 at 0922, Until Wed09/30/18 at 1137, Routine, Anesthesia Intra-op Given 09/30/2018 9:22 AM ELEMENTARY SCHOOL COUNSELOR 40 mg documented in this encounter
--- OUTSIDE RECORDS SUMMARY | 2024-08-19 06:43 | XMS_ITS | Encounter Summary ---
Author Organization [facility] Address [address] [place] [address] Care Team Providers Care Promotions Specialist Name Role Phone Unavailable Primary Care Provider Unavailabl e Reason for Visit * Reason Onset Date Comments Results 04/28/2019 positive stool c dung Encounter Details Date Type Department Care Team (Late st Contact Info) Description 04/28/2019 Telephone [facility] Family Medicine - [facility] [address] [facility] [facility] [address] [place] [address] Ciro Fernandez, DO [address] [place] [address] Results (positive stool card) Social History Tobacco Use Types Packs/Day Years [...] encounter Miscellaneous Notes * Telephone Encounter - Cristela Herman - 04/28/2019 10:02 AM CDT I notified pt of stool card results and recommendations for diagnostic colonoscopy. Pt verbalized understanding. Pt reported his current insurance ends at the end of this month. Pt will need to wait for insurancethru COBRA is effective before scheduling this procedure. Referral updated. * Telephone Encounter - Cristela Herman - 04/28/2019 9:58 AM CDT ----- Message from Ciro Fernandez DO sent at 04/28/2019 9:09 AM CDT ----- Hemoccult test does show positive blood within her stool. We previously placed a referral for screening colonoscopy. I would like to change this to a diagnostic colonoscopy or have you follow-up withyour GI specialist. documented in this encounter Plan of Treatment Not on file documented as of this encounter Visit Diagnoses Not on filedocumented in this encounter
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
--- OUTSIDE RECORDS SUMMARY | 2024-08-19 06:43 | XMS_ITS | Encounter Summary ---
Author Organization [facility] Address [address] [place] [address] Care Team Providers Care Print Shop Chief Clerk Name Role Phone Unavailable Primary Care Provider Unavailabl e Encounter Details Date Type Department Care Team (Late st Contact Info) Description 08/19/2018 Orders Only [facility] Medicine - [facility] [address] [place] [address] Ciro Fernandez DO [address] [facility] [address] [place] [address] Chronic right shoulder pain; Shoulder weakness Social History Tobacco Use Types Packs/Day Years [...] Procedure Name Priority Date/Time Associated Diagnosis Comments MRI SHOULDER WO CONTRAST RIGHT Routine 08/17/2018 Chronic right shoulder pain Shoulder weakness documented in this encounter Results * MRI SHOULDER WO CONTRAST RIGHT (08/17/2018) Anatomical Region Laterality Modality Upper Extremity Other Ciro Fernandez DO MR ORDERABLES documented in this encounter Visit Diagnoses Diagnosis Chronic right shoulder pain Pain in joint, shoulder region Shoulder weakness Other joint derangement, not elsewhere classified, shoulder region documented in this encounter
--- OUTSIDE RECORDS SUMMARY | 2024-08-19 06:43 | XMS_ITS | Encounter Summary ---
Author Organization [facility] Address [address] [place] [address] Care Team Providers Care Bench Worker Hollow Handle Name Role Phone Unavailable Primary Care Provider Unavailabl e Encounter Details Date Type Department Care Team (Late st Contact Info) Description 08/17/2018 Abstract [facility] Medicine - Bushra Yuan [address] [facility] [address] [place] [address] Ciro Fernandez, DO [address] [facility] [address] [place] [address] Social History Tobacco Use Types [...]
--- OUTSIDE RECORDS SUMMARY | 2024-08-19 06:43 | XMS_ITS | Encounter Summary ---
Author Organization [facility] Address [address] [place] [address] Care Team Providers Care Destination Specialist Name Role Phone Unavailable Primary Care Provider Unavailabl e Reason for Visit * Reason Onset Date Comments Results 09/27/2017 Encounter Details Date Type Department Care Team (Late st Contact Info) Description 09/27/[address] [facility] Family Medicine - [facility] [address] [facility] [address] [place] [address] Ciro Fernandez, DO [address] [facility] [address] [place] [address] Results Social History Tobacco Use [...] * Telephone Encounter - Jennifer Long - 09/27/2017 3:09 PM CST Pt informed/sb [employer]END[employer] * Telephone Encounter - Cristela Herman - 09/27/2017 2:52 PM CST Please notify pt and schedule CPE. [employer] ATTENDANT * Telephone Encounter - Cristela Herman - 09/27/2017 2:52 PM CST ----- Message from Ciro Fernandez DO sent at 09/27/2017 1:56 PM [employer] ----- Labs look great. All normal. Great job. You are just due for a basic physical exam. We can discuss more at that time. [employer] ATTENDANT * Telephone Encounter - Jennifer Long - 09/27/2017 1:44 PM CST Did we get his lab results yet? He did them Wednesday [employer] ATTENDANT documented in this encounter Plan of Treatment Not on file documented as of this encounter Visit Diagnoses Not on filedocumented in this encounter
--- OUTSIDE RECORDS SUMMARY | 2024-08-19 06:43 | XMS_ITS | Encounter Summary ---
Author Organization [facility] Address [address] [facility] Attn: Epic Prelude ADT [place]KAYE BRAMBILA [address] Care Team Providers Care Security Chief Museum Name Role Phone Unavailable Primary Care Provider Unavailabl e Encounter Details Date Type Department Care Team (Latest Contact Info) Description 02/28/2019 Travel Social History Tobacco Use Types Packs/Day [...]
--- OUTSIDE RECORDS SUMMARY | 2024-08-19 06:43 | XMS_ITS | Encounter Summary ---
Author Organization [facility] Address [address] [place] [address] Care Team Providers Care Formula Bottler Name Role Phone Unavailable Primary Care Provider Unavailabl e Reason for Referral * MRI (Routine) - Closed Specialty Diagnoses / Procedures Referred By Contac t Referred To Contact Diagnoses Chronic pain of right knee Abnormal x-ray of knee Procedures MRI KNEE WO CONTRAST RIGHT Ciro Fernandez DO [address] [place] [address] Referral ID Status Reason Start Date Expiration Date V isits Requested Visits Authorized [id number] Closed [facility] 01/08/2020 03/07/2020 1 1 Reason for Visit * Reason Onset Date Comments Results 01/03/2020 xray Encounter Details Date Type Department Care Team (Late st Contact Info) Description 01/03/[address] [facility] [address] [place] [address] Ciro Fernandez DO [address] [place] [address] Results (xray) Social History Tobacco Use Types Packs/Day Years [...] have Coronavirus / COVID-19? No / Unsure 01/02/2020 12:12 PM CDT documented as of this encounter Miscellaneous Notes * Telephone Encounter - Leslie Reid - 01/03/2020 9:18 AM CDT Patient notified x-ray results and recommendation for further evaluation with MRI. Patient verbalized understanding. MRI order placed * Telephone Encounter - Leslie Reid - 01/03/2020 9:14 AM CDT ----- Message from Ciro Fernandez DO sent at 01/03/2020 8:38 AM CDT ----- Xray of your knee showed no signs of a fracture but it did show a rounded bony density and needs yolette further evaluated with an MRI. documented in this encounter Plan of Treatment Not on file documented as of this encounter Results * MRI KNEE WO CONTRAST RIGHT (01/15/2020 9:45 AM CDT) Anatomical Region Laterality Modality Lower Extremity Magnetic Resonan ce 01/15/2020 9:54 AM CDT Impressions 01/15/2020 4:46 PM CDT IMPRESSION: 1. Prominent bone marrow edema throughout the lateral femoral condyle, most likely due to an underlying subchondral fracture. Avascular necrosis is in the differential diagnosis. 2. Intrasubstance degeneration involving the body of the lateral meniscus. Small tear is difficult to exclude. 3. Joint effusion with synovitis. 4. Chondromalacia patella. DICTATION LOCATION: Location 1 - [facility] 01/15/2020 4:46 PM CDT MRI KNEE WO CONTRAST RIGHT DATE: 01/15/2020 9:45 AM HISTORY: 69-year-old male with ??abnormal x-ray of knee, chronic pain for one month. TECHNIQUE: Multiplanar MR imaging of the right knee was performed utilizing T1, T2, and proton density weighted pulse sequences without intravenous contrast material. COMPARISON: Plain radiographs 01/02/2020. FINDINGS: The ACL, PCL, and MCL is intact. The lateral ligamentous complex including the popliteus tendon is intact. The extensor mechanism is intact. There is a small joint effusion with mild synovitis. Within the intercondylar notch anteriorly, there is an osseous structure measuring 6 mm in size, compatible with a loose body. The medial joint space is within normal limits. The medial meniscus is intact. There are no focal chondral defects within the medial compartment. The lateral joint space is mildly narrowed. There is prominent bone marrow edema within the lateral femoral condyle. There is some thickening of the subchondral plate which is slightly flattened. Findings are compatible with subchondral fracture. There is linear increased proton-density signal within the body of the lateral meniscus, this is seen best only on one image. This can be due to degeneration but small tear is difficult to exclude. There are no focal chondral defects within the lateral compartment. There is motion artifact limiting evaluation of the patella. There is moderate grade thinning of the patellar cartilage over the lateral facet. The femoral trochlear cartilage is intact. There is mild increased T2 signal within the medial and lateral gastrocnemius muscles which may be due to strain. There is diffuse circumferential soft tissue edema about the knee. Procedure Note Abundio Harris MD - 01/15/2020 MRI KNEE WO CONTRAST RIGHT DATE: 01/15/2020 9:45 AM HISTORY: 69-year-old male with abnormal x-ray of knee, chronic pain for one month. TECHNIQUE: Multiplanar MR imaging of the right knee was performed utilizing T1, T2, and proton density weighted pulse sequences without intravenous contrast material. COMPARISON: Plain radiographs 01/02/2020. FINDINGS: The ACL, PCL, and MCL is intact. The lateral ligamentous complex including the popliteus tendon is intact. The extensor mechanism is intact. There is a small joint effusion with mild synovitis. Within the intercondylar notch anteriorly, there is an osseous structure measuring 6 mm in size, compatible with a loose body. The medial joint space is within normal limits. The medial meniscus is intact. There are no focal chondral defects within the medial compartment. The lateral joint space is mildly narrowed. There is prominent bone marrow edema within the lateral femoral condyle. There is some thickening of the subchondral plate which is slightly flattened. Findings are compatible with subchondral fracture. There is linear increased proton-density signal within the body of the lateral meniscus, this is seen best only on one image. This can be due to degeneration but small tear is difficult to exclude. There are no focal chondral defects within the lateral compartment. There is motion artifact limiting evaluation of the patella. There is moderate grade thinning of the patellar cartilage over the lateral facet. The femoral trochlear cartilage is intact. There is mild increased T2 signal within the medial and lateral gastrocnemius muscles which may be due to strain. There is diffuse circumferential soft tissue edema about the knee. IMPRESSION: 1. Prominent bone marrow edema throughout the lateral femoral condyle, most likely due to an underlying subchondral fracture. Avascular necrosis is in the differential diagnosis. 2. Intrasubstance degeneration involving the body of the lateral meniscus. Small tear is difficult to exclude. 3. Joint effusion with synovitis. 4. Chondromalacia patella. DICTATION LOCATION: Location 1 - [facility] Ciro Fernandez DO MR ORDERABLES documented in this encounter Visit Diagnoses Diagnosis Abnormal x-ray of knee- Primary Chronic pain of right knee Chronic pain of right knee Abnormal x-ray of knee documented in this encounter
--- OUTSIDE RECORDS SUMMARY | 2024-08-19 06:43 | XMS_ITS | Encounter Summary ---
Author Organization [facility] Address [address] [place] [address] Care Team Providers Care Roving Teller Name Role Phone Unavailable Primary Care Provider Unavailabl e Reason for Visit * Auth/Cert Specialty Diagnoses / Procedures Referred By Contac t Referred To Contact Multi Specialty Diagnoses Fecal occult blood test positive Procedures COLONOSCOPY [facility] [address] [place] [address] Referral ID Status Reason Start Date Expiration Date Visits Re quested Visits Authorized [id number] 1 1 Encounter Details Date Type Department Care Team (Late st Contact Info) Description 09/01/2019 7:25 AM SALES MERCHANDISE ASSOCIATE - 09/01/2019 9:45 AM [facility] Hospital Encounter [facility] S [facility] [address] [place] [address] Modesta Wise, [address] [facility] [address] [place] [address] Fecal occult blood test positive Discharge Disposition: Home or Self Care Social [...] Sign Reading Time Taken Comments Blood Pressure 120/56 09/01/2019 9:20 AM [employer]ES [employer]ISE [employer]OCIATE Pulse 71 09/01/2019 9:20 AM SALES MERCHANDISE ASSOCIATE Temperature 36.3 ??C (97.3 ??F) 09/01/2019 9:01 AM CS T Respiratory Rate 16 09/01/2019 9:20 AM SALES MERCHANDISE ASSOCIATE Oxygen Saturation 100% 09/01/2019 9:20 AM SALES MERCHANDISE ASSOCIATE Inhaled Oxygen Concentration - - Weight 91 kg (200 lb 9.6 oz) 09/01/2019 7:32 AM SALES MERCH[employer]ISE ASSOCIATE Height 180.3 cm (5' 11 ) 09/01/2019 7:32 AM SALES MERCH[employer]ISE ASSOCIATE Body Mass Index 27.98 09/01/2019 7:32 AM SALES MERCHANDISE ASSOCIATE documented in this encounter Discharge Instructions * Discharge Instructions* Courtney Gibson RN - 09/01/2019 9:12 AM SALES MERCHANDISE ASSOCIATE If you should experience: Severe abdominal pain, chest pain, fever, chills, shortness of breath, inability to swallow, abnormal bleeding or any other concerns following your procedure. Call your physician or come to the Emergency Department. Please follow these instructions: 1. During your procedure you may have received sedation. You should rest at home for the remainder of the day. You should NOT drive or perform any activities that require a completely alert mind during this recovery period. Alcohol should NOT be used for at least 24 hours. 2. Following your colonoscopy you may expect your bowel habits to return to normal in 2-3 days. Once you are fully alert you may have a light meal and can progress to your usual diet, unless otherwise instructed by your physician. 3. This includes your current and historical medications prescribed by your physician (s). Continue your current medications and any newly prescribed during this visit. If you have questions, please call the physician who prescribed the medication. S MERCHANDISE ASSOCIATE documented in this encounter Medications at Time of Discharge Medication Sig Dispensed Refills Start Date End Date Cholecalciferol, Vitamin D3, (VITAMIN D3) 2,000 unit Capsule Take 1 Cap by mouth daily. 03/08/2015 UBIDECARENONE (CO Q-10 ORAL) Take by mouth. cetirizine-pseudoephedrine sr 12 hour (ZyrTEC-D) 5-120 mg tablet TAKE ONE TABLET BY MOUTH TWICE DAILY 72 Tablet 5 07/25/2019 02/19/2020 fluticasone propionate (FLONASE) 50 mcg/spray [place], Suspension nasal inhaler Administer 2 Sprays in each nostril daily. 48 Gram 3 03/13/2019 05/11/2020 simvastatin (ZOCOR) 40 mg tabletIndications:Pure hypercholesterolemia Take 1 Tablet (40 mg) by mouth late in the day. 90 Tablet 1 03/13/2019 09/06/2019 olmesartan (BENICAR) 20 mg tabletIndications:[place] l hypertension, benign Take 1 Tablet (20 mg) by mouth daily. 90 Tablet 1 03/13/2019 09/06/2019 omeprazole (PriLOSEC) 20 mg Capsule, Delayed Release(E.C.)Indications:G astroesophageal reflux disease, esophagitis presence not specified Take 1 Capsule (20 mg) by mouth daily. 180 Capsule 03/13/2019 10/10/2021 documented as of this encounter H&P Notes * Modesta Wise DO - 09/01/2019 8:18 AM CST PRE PROCEDURE EVALUATION DATE: 09/01/2019 HPI: This is a 69 y.o. male patient scheduled for Colonoscopy for screening for colon cancer. Patient Active Problem List Diagnosis Date Noted ??? S/P arthroscopy of right shoulder 09/30/2018 ??? S/P right rotator cuff repair 09/30/2018 ??? Status post subacromial decompression 09/30/2018 ??? Stasis dermatitis of both legs 03/18/2018 ??? Prediabetes 11/10/2016 ??? Vitamin D deficiency 12/19/2014 ??? Colon adenoma 01/22/2014 ??? AK (actinic keratosis) 05/26/2010 ??? Allergic rhinitis 11/11/2009 ??? Osteoarthritis 01/02/2009 ??? Esophageal reflux ??? Essential hypertension, benign ??? Pure hypercholesterolemia Past Medical History: Diagnosis Date ??? Community acquired pneumonia ??? Contact dermatitis and other eczema, due to unspecified cause ??? Essential hypertension ??? [place] (hard of hearing) ??? Motion sickness Past Surgical History: Procedure Laterality Date ??? HX HEART CATHETERIZATION 1992 ??? 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 HX VASECTOMY 1980 ??? CT COLONOSCOPY FLX DX W/COLLJ SPEC WHEN PFRMD 01/12/2014 COLONOSCOPY performed by Modesta Wise DO at [facility] ??? CT SHLDR ARTHROSCOP,SURG,W/ROTAT CUFF REPR Right 09/30/2018 RIGHT SHOULDER SCOPE W ROTATOR CUFF REPAIR, SUBACROMIAL DECOMPRESSION, W EXTENSIVE DEBRIDEMENT performed by Nehemiah Castellano MD at [facility] CC OR Medications Prior to Admission Medication Sig Dispense Refill Last Dose ??? cetirizine-pseudoephedrine sr 12 hour (ZyrTEC-D) 5-120 mg tablet TAKE ONE TABLET BY MOUTH TWICEDAILY 72 Tablet 5 08/31/2019 at Unknown time ??? simvastatin (ZOCOR) 40 mg tablet Take 1 Tablet (40 mg) by mouth late in the day. 90 Tablet 1 08/31/2019 at Unknown time ??? olmesartan (BENICAR) 20 mg tablet Take 1 Tablet (20 mg) by mouth daily. 90 Tablet 1 09/01/2019 at Unknown time ??? omeprazole (PriLOSEC) 20 mg Capsule, Delayed Release(E.C.) Take 1 Capsule (20 mg) by mouth daily. 180 Capsule 0 08/31/2019 at Unknown time ??? Cholecalciferol, Vitamin D3, (VITAMIN D3) 2,000 unit Capsule Take 1 Cap by mouth daily. Past Week at Unknown time ??? UBIDECARENONE (CO Q-10 ORAL) Take by mouth. Past Week at Unknown time ??? fluticasone propionate (FLONASE) 50 mcg/spray [place], Suspension nasal inhaler Administer 2 Sprays in each nostril daily. 48 Gram 3 04/18/2019 Allergies Allergen Reactions ??? Bactrim [Sulfamethoxazole-Trimethoprim] Rash ??? Medrol [Methylprednisolone] Rash and Other (See Comments) redness Social History Tobacco Use ??? Smoking status: Never Smoker ??? Smokeless tobacco: Never Used Substance Use Topics ??? Alcohol use: No Family History Problem Relation Name Age of [...] Neg Hx ??? Macular Degen Neg Hx Head: atraumatic, Normocephalic, without obvious abnormality Lungs: normal respiratory effort Airway: No apparent abnormality Heart: normal rate and regular rhythm Abdomen: Soft, non-tender. Neurologic: Grossly normal ASA Classification: ASA 2 - Patient with mild systemic disease with no functional limitations Informed Consent: The patient was informed of [...] mentioned procedure(s) as scheduled. Modesta Wise DO S MERCHANDISE ASSOCIATE documented in this encounter Procedure Notes * Modesta Wise DO - 09/01/2019 9:11 AM CSTAssociated Order(s): COLONOSCOPY REPORT [facility] Endoscopy Patient Name: Brendon Aldana Procedure Date: 09/01/2019 Date of : 1950 Admit Type: Outpatient Attending MD: Modesta Wise MD Procedure: Colonoscopy Indications: High risk colon cancer surveillance: Personal history of non-advanced adenoma, Last colonoscopy: January 2014 Providers: Modesta Wise MD Referring MD: Ciro Fernandez DO Medicines: Monitored Anesthesia Care Complications: No immediate complications. Procedure: Informed consent was obtained for the [...] quality of the bowel preparation was good. Estimated Blood Loss: Estimated blood loss was minimal. Findings: The perianal examination was normal. Three pedunculated and sessile polyps were found in the hepatic flexure. The polyps were 7 to 12 mm in size. These polyps were removed with a hot snare. Resection and retrieval were complete. Estimated blood loss was minimal. Two sessile polyps were found in the hepatic flexure. The polyps were 4 to 8 mm in size. These polyps were removed with a cold snare. Resection and retrieval were complete. Estimated blood loss was minimal. Many diverticula were found in the sigmoid colon and descending colon. The terminal ileum appeared normal. Hemorrhoids were found during retroflexion. Impression: - Three 7 to 12 mm polyps at the hepatic flexure, removed with a hot snare. Resected and retrieved. - Two 4 to 8 mm polyps at the hepatic flexure, removed with a cold snare. Resected and retrieved. - Diverticulosis in the sigmoid colon and in the descending colon. - The examined portion of the ileum was normal. - Hemorrhoids. Recommendation: - Await pathology results. - Repeat colonoscopy in 3 years for surveillance. - Avoid ASA, NSAIDs such as ibuprofen including but not limited to Motrin, Advil, Aleve and antiplatelets such as Plavix and ASA. Follow up with Dr. Wise for biopsy results in one week. You may call the office at . - High fiber diet. Modesta Wise MD 09/01/2019 9:11:18 AM This report has been signed electronically. Number of Addenda: 0 [phone] ; [place] [address] S MERCHANDISE ASSOCIATE * Brittney Murdock RN - 08/24/2019 10:01 AM CST [facility] Nurse Assessment Patient: Brendon Aldana : 1950 Endoscopist: Surgeon(s): Modesta Wise DO Upcoming Procedure: Procedure to be Performed: Procedure(s): COLONOSCOPY Procedure Date/Time: 09/01/2019 at 0820 Diagnosis/Indication for procedure: Pre-Op Diagnosis Codes: * Fecal occult blood test positive [R19.5] Location: [facility] Referring Physician: Ciro Fernandez Patient's BMI: Body mass index is 28.45 kg/m??. Is patient a candidate for offsite location? yes Medications Type of prep given: CSP Anticoagulants: no Relevant prior procedure/pathology: Procedure: COLON Physician: Date: 01/12/14 Location: Last Pathology: DIAGNOSIS ? LARGE INTESTINE, TRANSVERSE, COLONOSCOPIC BIOPSY: ? - TUBULAR ADENOMA (TWO PIECES). Past Surgical History: Past Surgical History: Procedure Laterality Date ??? HX HEART CATHETERIZATION 1992 ??? 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 HX VASECTOMY 1980 ??? CT COLONOSCOPY FLX DX W/COLLJ SPEC WHEN PFRMD 01/12/2014 COLONOSCOPY performed by Modesta Wise, DO at [facility] ??? CT SHLDR ARTHROSCOP,SURG,W/ROTAT CUFF REPR Right 09/30/2018 RIGHT SHOULDER SCOPE W ROTATOR CUFF REPAIR, SUBACROMIAL DECOMPRESSION, W EXTENSIVE DEBRIDEMENT performed by Nehemiah Castellano MD at [facility] CC OR Brittney Murdock RN S MERCHANDISE ASSOCIATE documented in this encounter OR Notes * Angie-OP - Brittney Murdock RN - 08/24/2019 10:00 AM CST Routine Pre-Anesthesia Protocol for GI Lab Procedures ??[facility] Approved by: [facility] - Medical Executive Committee Approval Date: 10/31/2018 ORDERS ARE ENTERED ???PER PROTOCOL?? Enter the protocol in the patient???s electronic health record using [employer]: .anestprotocolgilab NURSING ORDERS: Monitoring: o Obtain and record vital signs o Continuous vital signs (Non-invasive blood pressure, pulse oximetry and cardiac monitoring) for all inpatients and all patients currently taking beta-blockers o Place #20 gauge IV in non-dominant, non-operative or not otherwise excluded upper extremity o Contact responsible anesthesiologist if recommending use of a #22 gauge IV o See medication section for local Anesthetic to use to initiate IV LABORATORY ORDERS: Screening Protocol: o Urine bHCG (serum if necessary) Female of menses, or age > 12 y/o Point of Care Testing: FOR PATIENTS WITH A HISTORY OF DIABETES, RECEIVING INSULIN, OR EXHIBITING SIGNS AND SYMPTOMS OF HYPOGLYCEMIA. o POC glucose on initial assessment o POC glucose every 4 hours if NPO o POC glucose within 30 minutes of discharge or transfer to another unit (the time based intra-procedure POC check may be deferred during short procedures at the discretion of the provider) o POC for any patient exhibiting signs and symptoms of hypoglycemia o If POC Glucose results are critical, do not delay treatment. If appropriate, may confirm POC with: Nursing Only [id number] (this lab can be obtained at no cost to the patient when confirming a criticalhigh or critical low POC glucose MEDICATION ORDERS: o Local Anesthetic to use to initiate IV line: Lidocaine 2% 0.3mL intradermal ONE TIME to numb areaof IV catheter insertion PRN. IV Fluid - Adult patients (age 18 years or greater): o Lactated ringer???s solution to infuse at 125mL/hr, may discontinue upon discharge from procedurearea o Patient specific modification as indicated: ? ? If patient is found to have a serum creatinine >2 or history of renal failure, RN may changefluid to NS at 10ml/hr Contact provider to consider dextrose containing fluids for: o NPO patients who have received PO or injectable antihyperglycemic agents and glucose is less [id number] mg/dl o NPO patients who have NOT received PO or injectable antiHYPERglycemic agents and POC glucose is less than 70 mg/dL. o When receiving report on an inpatient, confirm if patient is receiving dextrose containing fluidsto prevent hypoglycemia. Communicate with the anesthesiologist and request glucose containing fluids be continued or added to intraoperative Fluids. o Any time a patient???s enteral or parenteral nutrition is interrupted for longer than four hours and POC glucose or serum glucose is less than 100 mg/dL contact provider for dextrose containing fluids o Notify provider for any POC glucose or serum glucose less than 70 mg/dL. RESCUE MEDICATION ORDERS - entered by the Pharmacist seaming inspector RESCUE ORDERS - entered by the Pharmacist or the bungy jump master Orders Patient has IV access and UNCONCIOUS, UNWILLING to swallow or NPO Glucose Level Treatment 40-69 mg/dL Dextrose 50% IV, give 12.5 grams (25 ml), IV push ONE TIME Less than 40 mg/dL Dextrose 50% IV, give 25 grams (50 ml), IV push ONE TIME Patient has no IV access, patient UNCONCIOUS, unable to swallow or NPO Glucose Level Treatment Less than 70 mg/dL Administer IM GLUCAGON 1 mg one time. After administration of glucagon is complete insert peripheral IV and notify physician. Patient is CONCIOUS and able to swallow and no longer NPO Glucose Level Treatment 40-69 mg/dL Give 15 gram food choice such as: Regular soda (6 oz), Apple juice (4 oz), or 1/2 cup regular jello Less Than 40 mg/dL Give 30 gram food choice such as: Regular soda (12 oz), Apple juice (8 oz), or 1cup regular jello Nursing Communication for Subsequent Care: ??? Check POC glucose 15 minutes after rescue. ??? Recheck and retreat every 15 minutes until blood glucose is greater than or equal to 70 mg/dL. ??? Once POC glucose result is 70 mg/dL or greater: o Check POC glucose every 30 minutes for 3 occurrences o Resume previous POC Glucose check orders. After Hypoglycemic Symptoms Subside, Give a Snack or Ask Provider for Dextrose Containing Fluids SNACK CHOICES: 1 carb and 1 fat servin saltine crackers and 2 teaspoons peanut butter; or 1 slice of bread and 2 teaspoons peanut butter; or 1 oz cheese and 6 saltine crackers; or 1 cup 2% milk and 6 saltine crackers. S MERCHANDISE ASSOCIATE documented in this encounter Miscellaneous Notes * Result Encounter Note - Modesta Wise DO - 09/05/2019 12:19 PM SALES MERCHANDISE ASSOCIATE Recommend surveillance colonoscopy in 3 years. S MERCHANDISE ASSOCIATE documented in this encounter Plan of Treatment Not on file documented as of this encounter Procedures Procedure Name Priority Date/Time Associated Diagnosis Comments COLONOSCOPY REPORT 09/01/2019 9 :12 AM SALES MERCHANDISE ASSOCIATE PATHOLOGY Pathology 09/01/2019 8:53 AM SALES MERCHANDISE ASSOCIATE Fecal occult blood test positive COLONOSCOPY 09/01/2019 8:23 AM SALES MERCHANDISE ASSOCIATE Fecal occult blood test positive documented in this encounter Results * COLONOSCOPY REPORT (09/01/2019 9:12 AM SALES MERCHANDISE ASSOCIATE) Narrative Procedure Note Modesta Wise DO - 09/01/2019 9:11 AM CST [facility] Endoscopy Patient Name: Brendon Aldana Procedure Date: 09/01/2019 Date of : 1950 Admit Type: Outpatient Attending MD: Modesta Wise MD Procedure: Colonoscopy Indications: High risk colon cancer surveillance: Personal history of non-advanced adenoma, Last colonoscopy: January 2014 Providers: Modesta Wise MD Referring MD: Ciro Fernandez DO Medicines: Monitored Anesthesia Care Complications: No immediate complications. Procedure: Informed consent was obtained for the [...] quality of the bowel preparation was good. Estimated Blood Loss: Estimated blood loss was minimal. Findings: The perianal examination was normal. Three pedunculated and sessile polyps were found in the hepatic flexure. The polyps were 7 to 12 mm in size. These polyps were removed with a hot snare. Resection and retrieval were complete. Estimated blood loss was minimal. Two sessile polyps were found in the hepatic flexure. The polyps were 4 to 8 mm in size. These polyps were removed with a cold snare. Resection and retrieval were complete. Estimated blood loss was minimal. Many diverticula were found in the sigmoid colon and descending colon. The terminal ileum appeared normal. Hemorrhoids were found during retroflexion. Impression: - Three 7 to 12 mm polyps at the hepatic flexure, removed with a hot snare. Resected and retrieved. - Two 4 to 8 mm polyps at the hepatic flexure, removed with a cold snare. Resected and retrieved. - Diverticulosis in the sigmoid colon and in the descending colon. - The examined portion of the ileum was normal. - Hemorrhoids. Recommendation: - Await pathology results. - Repeat colonoscopy in 3 years for surveillance. - Avoid ASA, NSAIDs such as ibuprofen including but not limited to Motrin, Advil, Aleve and antiplatelets such as Plavix and ASA. Follow up with Dr. Wise for biopsy results in one week. You may call the office at . - High fiber diet. Modesta Wise MD 09/01/2019 9:11:18 AM This report has been signed electronically. Number of Addenda: [address]; [place] [address] Modesta Wise DO GI PROCEDURE ORDERA BLES * PATHOLOGY (09/01/2019 8:53 AM SALES MERCHANDISE ASSOCIATE) CASE REPORT Surgical Pathology Report ? Case: [id number] ? Authorizing Provider: ??Modesta Wise, DO ? Collected: ? 09/01/2019 08:53 AM ? Ordering Location: ? [facility] [address] ??Received: ?09/01/2019 11:58 AM ? Pathologist: ? Kevin Romero, DO ? Specimen: ?Hepatic flexure, polyps ? 09/04/2019 10:21 AM [facility] FINAL DIAGNOSIS Large bowel, hepatic flexure polyps, polypectomy: -Tubular adenomas. 09/04/2019 10:21 AM [facility] IMEN DESCRIPTION Hepatic flexure polyps. 09/04/2019 10:21 AM [facility] OPERATIVE PROCEDURE Colonoscopy 09/04/2019 10:21 AM [facility] CLINICAL INFORMATION Colon Polyp(s). Adenomatous vs hyperplastic vs other. Fecal occult blood test positive [R19.5] 09/04/2019 10:21 AM [facility] GROSS DESCRIPTION Received in one container labeled Brendon Aldana, hepatic flexure polyps are seven pieces of red-pate tissue ranging from 0.3 to 0.6 cm in greatest dimension. The base of the largest piece is inked blue. It is bisected and submitted in cassette A1. The six smaller pieces are submitted in cassette A2. MC/rat 09/04/2019 10:21 AM [facility] MICROSCOPIC DESCRIPTION The slides are labeled [id number] and Brendon Aldana. Sections of the hepatic flexure polyps show multiple fragments of tubular adenoma. No high-grade dysplasia or invasive carcinoma is identified. 09/04/2019 10:21 AM [facility] COMMENT Special stain and/or immunohistochemical results are interpreted with controls that demonstrate appropriate staining reactions. Note on use of immunocytochemistry reagents: This test was developed and its performance characteristics determined by [facility], Department of Laboratory Medicine. It [...] part or completely in the following laboratories: [facility], [place] #[id number] [address] [place] [address] [facility], [place] #[id number] [address] [place] [address] [facility], [place] #[id number] [address] [place] [address]. 09/04/2019 10:21 AM SALES MERCHANDISE ASSOCIATE [facility] Tissue (Hepatic flexure) Collection / Unknown 09/01/2019 8:53 AM SALES MERCHANDISE ASSOCIATE 09/01/2019 11:58 AM SALES MERCHANDISE ASSOCIATE Comment:Colon Polyp(s). Pj omatous vs hyperplastic vs other. Modesta Wise DO PATHOLOGY/CYTOLOGY ORDERABLES [facility] [id number] [address] [facility] [id number] documented in this encounter Visit Diagnoses Diagnosis Fecal occult blood test positive Nonspecific abnormal finding in stool contents documented in this encounter Administered Medications Inactive Administered Medications - up to 3 most recent administrations Medication Order MAR Action Action Date Dose Rate Site lactated ringers infusion IV, at 125 mL/hr, PRE-PROCEDURE CONTINUOUS, Starting on Wed09/01/19 at 0745, Until Wed09/01/19 at 1145, Routine, Pre-Procedure Continue from Pre-Op 09/01/2019 8:22 AM SALES MERCHANDISE ASSOCIATE New Bag 09/01/2019 7:43 AM SALES MERCHANDISE ASSOCIATE 125 mL/hr documented in this encounter Active and Recently Administered Medications Times are shown in SALES MERCHANDISE ASSOCIATE. Continuous Medication Order 08/30/2019 08/31/2019 09/01/2019 lactated ringers infusion IV, at 125 mL/hr, PRE-PROCEDURE CONTINUOUS, Starting on Wed09/01/19 at 0745, Until Wed09/01/19 at 1145, Routine, Pre-Procedure 0743 (New Bag - Prov ider: Amarilis Nagel RN)0822 (Continue from Pre-Op - Provider: SONU Mason)0857 (Fluid Volume - Provider: SONU Mason) documented in this encounter
--- OUTSIDE RECORDS SUMMARY | 2024-08-19 06:43 | XMS_ITS | Encounter Summary ---
Author Organization [facility] Address [address] [place] [address] Care Team Providers Care Chief Design Engineer Name Role Phone Unavailable Primary Care Provider Unavailabl e Encounter Details Date Type Department Care Team (Late st Contact Info) Description 09/06/2018 Orders Only [facility] Orthopedic Surgery - [place] [id number] [place] [address] [place] [address] Jennifer Patel, [facility] [address] [id number] Social History Tobacco Use Types Packs/Day Years [...]
--- OUTSIDE RECORDS SUMMARY | 2024-08-19 06:43 | XMS_ITS | Encounter Summary ---
Author Organization [facility] Address [address] [place] [address] Care Team Providers Care Carbon Electrodes Supervisor Name Role Phone Unavailable Primary Care Provider Unavailabl e Reason for Visit * Reason Comments Shoulder Pain Rt Shoulder - Pt sta susan he has been experiencing pain for the past 5, however, the pain has become worse in the past 3 months * Eval and Treat (Routine) - Closed Specialty Diagnoses / Procedures Referred By Georgie gallagher Referred To Contact Orthopedic Surgery Diagnoses Complete tear of right rotator cuff Tear of right supraspinatus tendon, initial encounter Ciro Fernandez, DO 107 [facility] 100 [place] [address] [place] [address] [place] [address] [facility] [address] [place] [address] Referral ID Status Reason Start Date Expiration Date V isits Requested Visits Authorized [id number] Closed CRS To Schedule (STL) 08/19/2018 08/08/2019 99 99 Encounter Details Date Type Department Care Team (Late st Contact Info) Description 09/06/2018 10:30 AM SUPERVISOR STAVE CUTTING Office Visit [facility] Orthopedic Surgery - [place] [id number] [place] [address] [place] [address] Jenniefr Patel, ANP [address] [phone] Complete rotator cuff tear or rupture of right shoulder, not specified as traumatic (Primary Dx); Pre-op testing Social History Tobacco Use Types Packs/Day Years [...] Reading Time Taken Comments Blood Pressure 110/70 09/06/2018 10:08 AM SUPERVISOR STAVE CUTTING Pulse - - Temperature - - Respiratory Rate - - Oxygen Saturation - - Inhaled Oxygen Concentration - - Weight 97.1 kg (214 lb) 09/06/2018 10:08 AM SUPERVISOR STAVE CUTTING Height 180.3 cm (5' 11 ) 09/06/2018 10:08 AM SUPERVISOR STAVE CUTTING Body Mass Index 29.85 09/06/2018 10:08 AM SUPERVISOR STAVE CUTTING documented in this encounter Progress Notes * Jennifer Patel, ANP - 09/06/2018 10:38 AM CST Date: 09/06/2018 Name; Brendon Aldana Date: 1950 CSN: [id number] Chief Complaint Patient presents with ??? Shoulder Pain Rt Shoulder - Pt states he has been experiencing pain for the past 5, however, the pain has become worse in the past 3 months HPI: Brendon Aldana is a 68 y.o. male who presents for evaluation of right shoulder pain. Patient has had shoulder pain intermittently for a few years; however, pain has gotten much worse in the last 3 months. He complains about aching shoulder pain. He does not recall a specific injury; however, has a boat and enjoys fishing. He recalls over the summer, he was pulling into a boat slip, going a little fast, grabbed the upright on the dock to guide himself and felt pulling and pain in the right shoulder. He experienced that sensation a few other times over the course of the summer. He describes aching shoulder pain, pain with raising the arm overhead, pain with dressing especially when removing or applying a shirt or coat, applying deodorant under the right arm. He also has pain and limitation with washing his hair and combing his hair. He takes 800 mg ibuprofen in the morning and 400 mg ibuprofen at bedtime. Patient is employed and works for [employer] in [place]. 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 Past Medical History: Past Medical History: Diagnosis Date ??? Community acquired pneumonia ??? Contact dermatitis and other eczema, due to unspecified cause ??? Essential hypertension ??? [place] (hard of hearing) Past Surgical History: Past Surgical History: Procedure Laterality Date ??? HX HEART CATHETERIZATION 1992 ??? 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 HX VASECTOMY 1980 ??? IN COLONOSCOPY FLX DX W/COLLJ SPEC WHEN PFRMD 01/12/2014 COLONOSCOPY performed by Modesta Wise DO at [facility] Current Medications: Current Outpatient Prescriptions Medication Sig Dispense Refill ??? losartan-hydroCHLOROthiazide (HYZAAR) 50-12.5 mg tablet Take 0.5 Tablets by mouth daily. 30 Tablet 0 ??? simvastatin (ZOCOR) 40 mg tablet Take 1 Tablet (40 mg) by mouth late in the day. 90 Tablet 1 ??? cetirizine-pseudoephedrine sr 12 hour (ZyrTEC-D) 5-120 mg tablet TAKE ONE TABLET BY MOUTH TWO TIMES DAILY. 72 Tablet 5 ??? fluticasone (FLONASE) 50 mcg/spray [place], Suspension Administer 2 Sprays in each nostril daily.48 Gram 3 ??? montelukast (SINGULAIR) 10 mg tablet Take 1 Tablet (10 mg) by mouth daily at bedtime. 90 Tablet0 ??? omeprazole (PriLOSEC) 20 mg Capsule, Delayed Release(E.C.) Take 2 Capsules (40 mg) by mouth daily. 180 Capsule 0 ??? tadalafil (CIALIS) 20 mg tablet Take 1 Tablet (20 mg) by mouth 1 time daily as needed for Other(See Comment). 6 Tablet 1 ??? Cholecalciferol, Vitamin D3, (VITAMIN D3) 2,000 unit Capsule Take 1 Cap by mouth daily. ??? metroNIDAZOLE (METROGEL) 0.75 % Gel Apply to affected area 2 times daily. 60 Gram 5 ??? UBIDECARENONE (CO Q-10 ORAL) Take by mouth. No current facility-administered medications for this visit. Allergies: Allergies Allergen Reactions ??? Bactrim [Sulfamethoxazole-Trimethoprim] Rash ??? Medrol [Methylprednisolone] Rash and Other (See Comments) redness Family History: Family History Problem Relation Age of Onset ??? Heart Disease Father ??? High Cholesterol Father ??? Heart Disease Mother ??? Heart Failure Mother ??? Healthy Sister ??? Healthy Brother ??? Colon Cancer Maternal Grandmother ??? Cancer Maternal Grandmother ??? Diabetes Neg Hx ??? Hypertension Neg Hx ??? Asthma Neg Hx ??? Emphysema Neg Hx ??? Bronchitis Neg Hx ??? Lung Cancer Neg Hx ??? Mesothelioma Neg Hx ??? Tuberculosis Neg Hx ??? Glaucoma Neg Hx ??? Macular Degen Neg Hx Social History: Social History Social History ??? Marital status: Spouse name: N/A ??? Number of children: N/A ??? Years of education: N/A Occupational History ??? [employer] Social History Main Topics ??? Smoking status: Never Smoker ??? Smokeless tobacco: Never Used ??? Alcohol use No ??? Drug use: No ??? Sexual activity: Not on file Other Topics Concern ??? Not on file Social History Narrative ??? No narrative on file Review of Systems Constitutional: Negative for chills, fever and weight loss. HENT: Positive for hearing loss. Negative for tinnitus. Eyes: Negative for blurred vision and double vision. Respiratory: Negative for shortness of breath and wheezing. Cardiovascular: Negative for chest pain and palpitations. Gastrointestinal: Negative for heartburn. Musculoskeletal: Positive for joint pain. Negative for back pain and neck pain. Skin: Has intermittent stasis dermatitis lower extremity. Neurological: Negative for tingling, focal weakness and headaches. Endo/Heme/Allergies: Positive for environmental allergies. Psychiatric/Behavioral: Negative for depression and substance abuse. The patient is not nervous/anxious and does not have insomnia. Physical examination: Vital Signs: BP 110/70 (BP Location: Left arm, Patient Position (BP): Sitting, BP Cuff Size: Large Adult) Ht 5' 11 (1.803 m) Wt 97.1 kg (214 lb) BMI 29.85 kg/m?? General: 68 y.o. male General: Awake, alert, oriented x3 HEENT: normocephalic/atraumatic Cardiovascular: Regular rate/rhythm Lungs: Respirations even and unlabored Abdomen: Soft and nontender Musculoskeletal: 68-year-old, [id number], white male who presents in no acute distress. Heholds his shoulder in tension with the scapula elevated, most of the visit. Active right shoulder forward flexion to about 130 degrees, abduction about 130 degrees, internal rotation to L1, and external rotation about 40 degrees. Pain in all planes with active shoulder range of motion. Painful supraspinatus testing; however, negative drop arm. 4-/5 strength with resisted external rotation. Intactneurovascular exam. Radiographic Views: 3 views right shoulder were obtained. Radiographic Interpretation: X-rays right shoulder demonstrate type II acromion, no superior migration of the humeral head, mild AC joint degenerative change, mild glenohumeral degenerative change. MRI imaging: Patient brings MRI CD with him. Patient had right shoulder MRI 08/17/2018. MRI demonstrates full-thickness tear of the supraspinatus tendon with approximately 1.4 cm retraction. No obviousmuscle atrophy or fatty infiltration. Orthopedic Impression: ICD-10-CM ICD-9-CM 1. Complete rotator cuff tear or rupture of right shoulder, not specified as traumatic M75.121 727.61 2. Pre-op testing Z01.818 V72.84 Plan: Orders Placed This Encounter ??? XR SHOULDER 2+ VW RIGHT ??? EKG 12-LEAD I recommended arthroscopic subacromial decompression and rotator cuff repair. I reviewed the risks,benefits, and postoperative course. I explained rehabilitation, postoperatively. I answered the patient's questions. He wishes to proceed. We will schedule at his convenience. RVISOR STAVE CUTTING * Indu Kimble - 09/06/2018 10:11 AM CST Date of Injury: 2017 Detailed Description of how patient was injured: Pt states he had to brace a fall on his boat in 2018, and may have injured his rt shoulder Place injury occurred: [facility], [place] Is this patient on hospice care? NO Does this patient reside in a correction? NO If yes; which one: NA RVISOR STAVE CUTTING documented in this encounter Miscellaneous Notes * Patient Instructions - Nilda Krishna RMA - 09/06/2018 10:20 AM SUPERVISOR STAVE CUTTING RVISOR STAVE CUTTING documented in this encounter Plan of Treatment Scheduled Orders Name Type Priority Associated Diagnoses Orde r Schedule EKG 12-LEAD ECG Routine Complete rotator cuff tear or rupture of right shoulder, not specified as traumatic Pre-op testing Ordered: 09/06/2018 documented as of this encounter Results * XR SHOULDER 2+ VW RIGHT (09/06/2018 10:25 AM SUPERVISOR STAVE CUTTING) Anatomical Region Laterality Modality Upper Extremity Computed Radiogr aphy Narrative 09/30/2018 3:32 PM SUPERVISOR STAVE CUTTING Radiographic Views: 3 views right shoulder were obtained. Radiographic Interpretation: X-rays right shoulder demonstrate type II acromion, no superior migration of the humeral head, mild AC joint degenerative change, mild glenohumeral degenerative change. ALICIA Herrera, 09/06/2018 12:45 PM Jennifer [facility] documented in this encounter Visit Diagnoses Diagnosis Complete rotator cuff tear or rupture of right shoulder, not specified as traumatic- Primary Complete rupture of rotator cuff Pre-op testing Preoperative examination, unspecified Acute pain of right shoulder documented in this encounter
--- OUTSIDE RECORDS SUMMARY | 2024-08-19 06:43 | XMS_ITS | Encounter Summary ---
Author Organization [facility] Address [address] [place] [address] Care Team Providers Care Manager Legal Name Role Phone Unavailable Primary Care Provider Unavailabl e Reason for Visit * Reason Comments Medication Refill Encounter Details Date Type Department Care Team (Late st Contact Info) Description 07/24/2019 Refill [facility] Medicine - [facility] Abundio Yuan [address] [facility] Abundio [address] [place] [address] Ciro Fernandez, DO [address] [facility] [address] [place] [address] Social History Tobacco Use Types [...]
--- OUTSIDE RECORDS SUMMARY | 2024-08-19 06:43 | XMS_ITS | Encounter Summary ---
Author Organization [facility] Address [address] [place] [address] Care Team Providers Care Journeyman Molder Name Role Phone Unavailable Primary Care Provider Unavailabl e Encounter Details Date Type Department Care Team (Late st Contact Info) Description 08/31/2019 Chart Note [facility] Gastroenterology [place] A [address] [place] [address] Modesta Wise, DO [address] [place] [address] Social History Tobacco Use Types Packs/Day Years Used Date Smoking Tobacco: Never Smokeless Tobacco: Never Alcohol Use Standard Drinks/Week Comments No 0 (1 standard drink = 0.6 oz pur e alcohol) Sex and Gender Information Value Date Recorded Sex Assigned at Not on file Gender Identity Not on file Sexual Orientation Not on file documented as of this encounter Progress Notes * Danya Etienne - 08/31/2019 11:01 AM CST Patient confirm procedure CEMENT AND PAINT MAKER HELPER documented in this encounter Plan of Treatment Not on file documented as of this encounter Visit Diagnoses Not on filedocumented in this encounter
--- OUTSIDE RECORDS SUMMARY | 2024-08-19 06:43 | XMS_ITS | Encounter Summary ---
Author Organization [facility] Address [address] [place] [address] Care Team Providers Care Concrete Bucket Hooker Name Role Phone Unavailable Primary Care Provider Unavailabl e Reason for Visit * Reason Onset Date Comments Medication Refill 03/13/2019 Encounter Details Date Type Department Care Team (Late st Contact Info) Description 03/13/[address] [facility] Medicine [facility] Kwabena [address] [facility] KWABENA [address] [place] [address] Courtney Weeks PA-Francisco [address] [place] [address] Gastroesophageal reflux disease, esophagitis presence not specified [...] as of this encounter Visit Diagnoses Diagnosis Gastroesophageal reflux disease, esophagitis presence not specified documented in this encounter
--- OUTSIDE RECORDS SUMMARY | 2024-08-19 06:43 | XMS_ITS | Encounter Summary ---
Author Organization [facility] Address [address] [place] [address] Care Team Providers Care Custodian Athletic Equipment Name Role Phone Unavailable Primary Care Provider Unavailabl e Encounter Details Date Type Department Care Team (Late st Contact Info) Description 04/20/2019 Abstract [facility] Medicine - Bushra Yuan [address] [facility] Abundio YUAN [address] [place] [address] Ciro Fernandez, DO [address] [facility] [address] [place] [address] Social [...]
--- OUTSIDE RECORDS SUMMARY | 2024-08-19 06:43 | XMS_ITS | Encounter Summary ---
Author Organization [facility] Address [address] [place] [address] Care Team Providers Care Blanket Cutting Machine Operator Name Role Phone Unavailable Primary Care Provider Unavailabl e Reason for Visit * Reason Comments Follow Up Right Shoulder * Eval and Treat (Routine) - Closed Specialty Diagnoses / Procedures Referred By Georgie gallagher Referred To Contact Orthopedic Surgery Diagnoses Complete tear of right rotator cuff Tear of right supraspinatus tendon, initial encounter Ciro Fernandez, DO 107 [facility] 100 [place] [address] [place] [address] [place] [address] Referral ID Status Reason Start Date Expiration Date V isits Requested Visits Authorized [id number] Closed CRS To Schedule (STL) 08/19/2018 08/08/2019 99 99 Encounter Details Date Type Department Care Team (Latest Contact Info) Description 02/28/2019 2:00 PM CDT Office Visit [facility] Orthopedic Surgery - [place] [address] [place] [address] Jennifer Patel, ANP [facility] [address] [phone] S/P right rotator cuff repair (Primary Dx); [...] Sign Reading Time Taken Comments Blood Pressure 103/70 02/28/2019 2:02 PM CDT Pulse 69 02/28/2019 2:02 PM CDT Temperature - - Respiratory Rate - - Oxygen Saturation - - Inhaled Oxygen Concentration - - Weight 95.2 kg (209 lb 12.8 oz) 02/28/2019 2:02 PM CDT Height 180.3 cm (5' 11 ) 02/28/2019 2:02 PM CDT Body Mass Index 29.26 02/28/2019 2:02 PM CDT documented in this encounter Progress Notes * Jennifer Patel, ANP - 03/01/2019 8:30 AM CDT ORTHOPEDIC POST-OP SHOULDER ARTHROSCOPY PROGRESS NOTE Name: Brendon Aldana Age: 68 y.o. Date of : 1950 CSN: [id number] Date of service:02/28/2019 Chief Complaint Patient presents with ??? Follow Up Right Shoulder Subjective: Brendon Aldana presents for 22 week postoperative visit following right shoulder arthroscopy with subacromial decompression, and rotator cuff repair. Surgery was on 09/30/2018. Patient reports shoulder is doing well. He denies use of pain medication for shoulder symptoms. He no longer has shoulder pain. He has been attending outpatient physical therapy twice weekly. He has not been diligent withhome exercise program. He returned to regular schedule at work, and it is well tolerated. PMHx: Past Medical History: Diagnosis Date ??? Community acquired pneumonia ??? Contact dermatitis and other eczema, due to unspecified cause ??? Essential hypertension ??? [place] (hard of hearing) ??? Motion sickness PSHx: Past Surgical History: Procedure Laterality Date ??? HX HEART CATHETERIZATION 1992 ??? 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 HX VASECTOMY 1980 ??? MD COLONOSCOPY FLX DX W/COLLJ SPEC WHEN PFRMD 01/12/2014 COLONOSCOPY performed by Modesta Wise DO at [facility] ??? MD SHLDR ARTHROSCOP,SURG,W/ROTAT CUFF REPR Right 09/30/2018 RIGHT SHOULDER SCOPE W ROTATOR CUFF REPAIR, SUBACROMIAL DECOMPRESSION, W EXTENSIVE DEBRIDEMENT performed by Nehemiah Castellano MD at [facility] CC OR ALLERGIES: Allergies Allergen Reactions ??? Bactrim [Sulfamethoxazole-Trimethoprim] Rash ??? Medrol [Methylprednisolone] Rash and Other (See Comments) redness MEDICATIONS: Current Outpatient Medications Medication Sig Dispense Refill ??? cetirizine-pseudoephedrine sr 12 hour (ZyrTEC-D) 5-120 mg tablet TAKE ONE TABLET BY MOUTH TWO TIMES DAILY. 72 Tablet 5 ??? fluticasone propionate (FLONASE) 50 mcg/spray [place], Suspension nasal inhaler Administer 2 Sprays in each nostril daily. 48 Gram 0 ??? simvastatin (ZOCOR) 40 mg tablet Take 1 Tablet (40 mg) by mouth late in the day. 90 Tablet 0 ??? olmesartan (BENICAR) 20 mg tablet Take 1 Tablet (20 mg) by mouth daily. 90 Tablet 0 ??? ibuprofen (MOTRIN) 800 mg tablet Take 1 Tablet (800 mg) by mouth every 8 hours as needed for Pain, Mild. 60 Tablet 0 ??? omeprazole (PriLOSEC) 20 mg Capsule, Delayed Release(E.C.) Take 1 Capsule (20 mg) by mouth daily. 180 Capsule 0 ??? Cholecalciferol, Vitamin D3, (VITAMIN D3) 2,000 [...] level: Not on file Occupational History Employer: [employer] Social Needs ??? Financial resource strain: Not [...] file Gets together: Not on file Attends orthodoxy service: Not on file Active member of [...] Not on file Review of Systems Constitutional: Negative for chills, fever and weight loss. HENT: Positive for hearing loss. Negative for tinnitus. Eyes: Negative for blurred vision and double vision. Respiratory: Negative for shortness of breath and wheezing. Cardiovascular: Negative for chest pain and palpitations. Gastrointestinal: Positive for heartburn. Musculoskeletal: Negative for back pain, joint pain and neck pain. Neurological: Negative for tingling, focal weakness and headaches. Endo/Heme/Allergies: Positive for environmental allergies. Psychiatric/Behavioral: Negative for depression and substance abuse. The patient is not nervous/anxious and does not have insomnia. Objective: General : alert, in no distress Braces: None Sutures: None Incisions: healing well, no significant drainage, no dehiscence, no significant erythema Sensory: Intact to entire right upper extremity Vascular: 2+ radial pulses, brisk capillary refill Active forward flexion about 150 degrees, abduction about 130 degrees, and external rotation about 65 degrees. Intact neurovascular Assessment: ORTHOPEDIC IMPRESSION: ICD-10-CM ICD-9-CM 1. S/P right rotator cuff repair Z98.890 V45.89 2. S/P arthroscopy of right shoulder Z98.890 V45.89 3. Status post subacromial decompression Z98.890 V45.89 Plan: PLAN: No orders of the defined types were placed in this encounter. The patient's questions were answered. He will transition to home exercise program. I recommended active participation in routine exercise program at least once daily. He can resume regular activities as tolerated. Follow up: prn Normal BMI Range: 18 & older: > or = 18.5 and < 25 Body mass index is 29.26 kg/m??. Abnormal high BMI: Patient counseled on [...]
--- OUTSIDE RECORDS SUMMARY | 2024-08-19 06:43 | XMS_ITS | Encounter Summary ---
Author Organization [facility] Address [address] [place] [address] Care Team Providers Care Gauger Chief Delivery Name Role Phone Unavailable Primary Care Provider Unavailabl e Reason for Visit * Reason Onset Date Comments Medication Refill 09/06/2019 Encounter Details Date Type Department Care Team (Late st Contact Info) Description 09/06/2019 Refill [facility] Family Medicine - Bushra Yuan [address] 107 [facility] Abundio YUAN [address] [place] [address] Ciro Fernandez, DO [address] [facility] [address] [address] [place] [address] Pure hypercholesterolemia; Essential hypertension, benign [...]
--- OUTSIDE RECORDS SUMMARY | 2024-08-19 06:43 | XMS_ITS | Encounter Summary ---
Author Organization [facility] Address [address] [place] [address] Care Team Providers Care Nurse Charge Rn Name Role Phone Unavailable Primary Care Provider Unavailabl e Reason for Visit * Reason Onset Date Comments Results 03/29/2019 Encounter Details Date Type Department Care Team ([facility] st Contact Info) Description 03/29/2019 Telephone [facility] Family Medicine - [facility] [address] [facility] [address] [place] [address] Ciro Fernandez, DO 107 [facility] [address] [place] [address] Results Social History Tobacco Use [...] * Telephone Encounter - Jennifer Long - 03/29/2019 9:08 AM CDT Pt informed/sk * Telephone Encounter - Leslie Reid - 03/29/2019 9:01 AM CDT ----- Message from Luana Hwang CMA sent at 03/29/2019 8:46 AM CDT ----- ----- Message ----- From: Ciro Fernandez DO Sent: 03/29/2019 8:42 AM To: [facility] Nurse [place] Your laboratory studies have been received and are overall normal. It is just time to schedule yourphysical and we will discuss further at your Well Adult Exam. * Telephone Encounter - Jennifer Long - 03/29/2019 8:58 AM CDT ----- Message from Luana Hwang CMA sent at 03/29/2019 8:46 AM CDT ----- ----- Message ----- From: Ciro Fernandez DO Sent: 03/29/2019 8:42 AM To: [facility] Nurse [place] Your laboratory studies have been received and are overall normal. It is just time to schedule yourphysical and we will discuss further at your Well Adult Exam. documented in this encounter Plan of Treatment Not on file documented as of this encounter Visit Diagnoses Not on filedocumented in this encounter
--- OUTSIDE RECORDS SUMMARY | 2024-08-19 06:43 | XMS_ITS | Encounter Summary ---
Author Organization [facility] Address [address] [place] [address] Care Team Providers Care Counseling Center Manager Name Role Phone Unavailable Primary Care Provider Unavailabl e Encounter Details Date Type Department Care Team (Late st Contact Info) Description 10/03/2018 Abstract [facility] Medicine - Bushra Yuan [address] 107 [facility] Abundio [address] [place] [address] Ciro Fernandez, DO [address] [facility] [address] [place] [address] Social History Tobacco Use Types [...]
--- OUTSIDE RECORDS SUMMARY | 2024-08-19 06:43 | XMS_ITS | Encounter Summary ---
Author Organization [facility] Address [address] [place] [address] Care Team Providers Care Cleaner And Presser Name Role Phone Unavailable Primary Care Provider Unavailabl e Encounter Details Date Type Department Care Team (Late st Contact Info) Description 10/18/2018 Abstract [facility] [address] [facility] [address] [place] [address] Modesta Wise, DO [address] [facility] [address] [place] [address] Social History Tobacco Use Types [...]
--- OUTSIDE RECORDS SUMMARY | 2024-08-19 06:43 | XMS_ITS | Encounter Summary ---
Author Organization [facility] Address [address] [place] [address] Care Team Providers Care Job Change Crew Member Name Role Phone Unavailable Primary Care Provider Unavailabl e Reason for Visit * Reason Comments Shoulder Pain right side, preop doe rgery clearance rotator cuff 09-30-[address] Castellano Encounter Details Date Type Department Care Team (Late st Contact Info) Description 09/14/2018 3:30 PM COSMETIC SALES ASSISTANT Office Visit [facility] Medicine [facility] [address] [facility] [address] [place] [address] Courtney Weeks PA-C [address] [facility] [place] [address] Complete rotator cuff tear or rupture of right shoulder, not specified as traumatic (Primary Dx); Pre-operative exam; Essential hypertension, benign; Pure hypercholesterolemia; Prediabetes; Gastroesophageal reflux disease, esophagitis [...] Reading Time Taken Comments Blood Pressure 110/70 09/14/2018 3:18 PM COSMETIC SALES ASSISTANT Pulse 80 09/14/2018 3:18 PM COSMETIC SALES ASSISTANT Temperature 35.9 ??C (96.7 ??F) 09/14/2018 3:18 PM CS T Respiratory Rate - - Oxygen Saturation - - Inhaled Oxygen Concentration - - Weight 96.7 kg (213 lb 3.2 oz) 09/14/2018 3:18 P M COSMETIC SALES ASSISTANT Height 180.3 cm (5' 11 ) 09/14/2018 3:18 PM COSMETIC SALES ASSISTANT Body Mass Index 29.74 09/14/2018 3:18 PM COSMETIC SALES ASSISTANT documented in this encounter Progress Notes * Courtney Weeks PA-C - 09/14/2018 3:30 PM CST Subjective: Brendon Aldana is a 68 y.o. male with hypertension, hypercholesterolemia, osteoarthritis, prediabetes, stasis dermatitis and reflux disease who presents to the office today for a preoperative consultation. Chief Complaint Patient presents with ??? Shoulder Pain right side, preop surgery clearance rotator cuff 09-30-[address] Castellano Current Complaints: The patient complains of right shoulder pain intermittently for the last few years, worsening over the last 3 months. He is right-hand dominant. Believes worsening pain may be related to carrying andlifting more around the holidays. Pain is achy, dull. He has pain with overhead motion and getting dressed, but lifting his arm to apply deoderant causes the worst pain. He has had some mild intermittent numbness and tingling of the right arm. He had been taking ibuprofen 800 mg qam and 400 mg qhs,but has decreased to 600 mg qam. Rest has also helped the pain. An MRI was performed 08/17/18 showinga full thickness tear of the supraspinatus as well as showed minimal AC joint arthritis. He was eval uated by ortho, who has recommended arthroscopic subacromial decompression and rotator cuff repair. Hypertension: Current medication(s) reviewed - Losartan/HCTZ. Taking and tolerating medications well. 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 Hypertensive diet compliance: yes Low Sodium Exercise compliance: no No change in vision. Denies chest pain, palpitations, pedal edema, shortness of breath. No polyuriaor polydipsia. No Cephalgia. Reviewed overall treatment plan, including diet and exercise, and prevention strategies. Last labs reviewed with patient. Reports having a cardiac cath in 1992, in his early 40s, states was normal. Believes symptoms were related to stress. Hypercholesterolemia: Current medication(s) reviewed - Zocor, CoQ10. Taking and tolerating medications well. Cholesterol diet compliance: yes Exercise compliance: no Denies chest pain, palpitations, shortness of breath. No muscular cramps. Reviewed overall treatment plan, including diet and exercise, and prevention strategies. Last labs reviewed with patient. Prediabetes: Current medication(s) reviewed. Patient understands diagnosis Blood sugars are not being checked at home. Diabetic diet compliance: yes Exercise compliance: no No change in vision. [...] after eating. No dysphagia. Frequency of symptoms: intermittent - much improved. Patient has had previous treatment which has been helpful - Prilosec, 20 mg. States the symptoms are improving. Patient denies side effects of the medications used The pathophysiology of reflux is discussed; anti-reflux measures such as raising the head of the bed, and avoiding lying down after meals are suggested. Try to avoid ASA, NSAID's, caffeine, peppermints, alcohol and tobacco. Cardiovascular risk factors: hyperlipidemia, hypertension, and elevated glucose. Patient Active Problem List Diagnosis Date Noted ??? Stasis dermatitis of both legs 03/18/2018 ??? Prediabetes 11/10/2016 ??? Vitamin D deficiency 12/19/2014 ??? Colon adenoma 01/22/2014 ??? AK (actinic keratosis) 05/26/2010 ??? Allergic rhinitis 11/11/2009 ??? Osteoarthritis 01/02/2009 ??? Esophageal reflux ??? Essential hypertension, benign ??? Pure hypercholesterolemia Current Outpatient Prescriptions on File Prior to Visit Medication Sig Dispense Refill ??? losartan-hydroCHLOROthiazide (HYZAAR) [...] Tablet 5 ??? fluticasone (FLONASE) 50 mcg/spray [place], Suspension Administer 2 Sprays in each nostril daily.48 Gram 3 ??? tadalafil (CIALIS) 20 mg tablet Take 1 Tablet (20 mg) by mouth 1 time daily as needed for Other(See Comment). 6 Tablet 1 ??? Cholecalciferol, Vitamin D3, (VITAMIN D3) 2,000 unit Capsule Take 1 Cap by mouth daily. ??? metroNIDAZOLE (METROGEL) 0.75 % Gel Apply to affected area 2 times daily. 60 Gram 5 ??? UBIDECARENONE (CO Q-10 ORAL) Take by mouth. ??? [DISCONTINUED] omeprazole (PriLOSEC) 20 mg Capsule, Delayed Release(E.C.) Take 2 Capsules (40 mg) by mouth daily. 180 Capsule 0 No current facility-administered medications on file prior to visit. Allergies Allergen Reactions ??? Bactrim [Sulfamethoxazole-Trimethoprim] Rash ??? Medrol [Methylprednisolone] Rash and Other (See Comments) redness Past Medical History: Diagnosis Date ??? Community acquired pneumonia ??? Contact dermatitis and other eczema, due to unspecified cause ??? Essential hypertension ??? [place] (hard of hearing) Past Surgical History: Procedure Laterality Date ??? HX HEART CATHETERIZATION 1992 ??? 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 HX VASECTOMY 1980 ??? [place] COLONOSCOPY FLX DX W/COLLJ SPEC WHEN PFRMD 01/12/2014 COLONOSCOPY performed by Modesta Wise DO at [facility] Family History Problem Relation Age of Onset [...] Hx ??? Macular Degen Neg Hx Social History Substance Use Topics ??? Smoking status: Never Smoker ??? Smokeless tobacco: Never Used ??? Alcohol use No Review of Systems: Psychological ROS: negative for change in mood or behavior Ophthalmic ROS: negative for visual changes. +glasses ENT ROS: negative for nasal bleeding or [...] dysuria, trouble voiding, or hematuria Musculoskeletal ROS: +intermittent low back pain; negative for neck pain or other joint pain or swelling Neurological ROS: negative for confusion, numbness/tingling or weakness Dermatological ROS: negative for skin rashes or unusual skin lesions Objective: BP 110/70 Pulse 80 Temp (!) 96.7 ??F (35.9 ??C) (Temporal) Ht 5' 11 (1.803 m) Wt 96.7 kg (213 lb 3.2 oz) BMI 29.74 kg/m?? Appearance: alert, well appearing, and in no distress. Skin: No noticeable unusual rashes or suspicious skin lesions noted Eyes: Normal, normal vessels, no hemorrhages or exudates, no background retinopathy noted HEENT: Throat and pharynx normal. Neck supple. No adenopathy or masses in the neck or supraclavicular regions. Thyroid: Thyroid not enlarged, no nodules or mass detected. CV: Heart sounds: normal rate, regular rhythm, normal S1, S2, no murmurs, rubs, clicks. No carotid bruits Chest: Chest is clear, no wheezing or rales. No chest wall deformities or tenderness. Abdomen: Abdomen is soft without tenderness, distention, guarding, rebound or organomegaly. +ventral hernia. Bowel sounds are normal. Extremities: Peripheral pulses normal, no pedal edema. Trace LE edema. Lower extremities reveal no signs of deep venous thrombosis; calves and thighs are soft without other swelling, induration or tenderness, Lara's sign is negative. Shoulder: Exam deferred to ortho Neuro: Cranial nerves grossly intact. Normal patellar deep tendon reflexes. Psych: Appropriate Assessment: Brendon was seen today for shoulder pain. Diagnoses and all orders for this visit: Complete rotator cuff tear or rupture of right shoulder, not specified as traumatic - EKG 12-LEAD - XR CHEST PA AND LATERAL 2 VW; Future Pre-operative exam - EKG 12-LEAD - XR CHEST PA AND LATERAL 2 VW; Future - CBC WITH DIFFERENTIAL; Future - COMPREHENSIVE METABOLIC PANEL; Future Essential hypertension, benign - Well controlled - Losartan/HCTZ - Low salt diet - Exercise Pure hypercholesterolemia - Well controlled - Simvastatin, CoQ10 - Low fat diet - Exercise Prediabetes - Continue low carb/low sugar diet - Exercise Gastroesophageal reflux disease, esophagitis presence not specified - omeprazole (PriLOSEC) 20 mg Capsule, Delayed Release(E.C.); Take 1 Capsule (20 mg) by mouth daily. - Encouraged patient to try to decrease use of Prilosec to every other day - Avoid triggers - Discussed that long-term treatment with a PPI can be associated with decreased calcium absorptionand decreased iron absorption, as well as an increased risk of bacterial intestinal infections and small intestine bacterial overgrowth. Retrospective studies have shown that PPIs are associated with an increased risk of adverse effects, such as CKD, dementia, osteoporosis, cardiovascular events, pneumonia and ischemic strokes. Regular laboratory monitoring and office visits are needed to help monitor for these risks. Routine labs for pre-diabetes, hypertension and hyperlipidemia due next month. No contraindications to planned surgery, pending labs, CXR Surgery specific risk: acceptable. Functional risk: acceptable. Patient requires endocarditis prophylaxis: no. Recommend perioperative beta-matt: no. Proceed with surgery as planned, pending labs, CXR. ETIC SALES ASSISTANT documented in this encounter Procedure Notes * Courtney Weeks PA-C - 09/14/2018 4:07 PM CSTAssociated Order(s): EKG 12-LEAD Procedure(s): OH ECG ROUTINE ECG W/LEAST 12 LDS W/I&R Pre-Procedure Diagnose(s): Complete rotator cuff tear or rupture of right shoulder, not specified as traumatic; Pre-operative exam Post-Procedure Diagnose(s): Complete rotator cuff tear or rupture of right shoulder, not specified as traumatic; Pre-operative exam EKG: there are no previous tracings available for comparison, RBBB, left axis deviation. ETIC SALES ASSISTANT documented in this encounter Plan of Treatment Not on file documented as of this encounter Procedures Procedure Name Priority Date/Time Associated Diagnosis Comments OH ECG ROUTINE ECG W/LEAST 12 LDS W/I&R Routine 09/14/2018 4:07 PM COSMETIC SALES ASSISTANT Complete rotator cuff tear or rupture of right shoulder, not specified as traumatic Pre-operative exam documented in this encounter Results * XR CHEST PA AND LATERAL 2 VW (09/14/2018 4:18 PM COSMETIC SALES ASSISTANT) Anatomical Region Laterality Modality Chest Computed Radiogr aphy 09/14/2018 4:18 PM COSMETIC SALES ASSISTANT Impressions 09/14/2018 6:53 PM COSMETIC SALES ASSISTANT IMPRESSION: 1. ??No acute abnormality identified. DICTATION LOCATION: Location [address] [place] [address] Narrative 09/14/2018 6:53 PM COSMETIC SALES ASSISTANT XR CHEST PA AND LATERAL 2 VW DATE: 09/14/2018 4:18 PM HISTORY: Complete rotator cuff tear or rupture of right shoulder, not specified as traumatic; Pre-operative exam. COMPARISON: 01/10/2014. FINDINGS: ??No consolidation or effusion. No pneumothorax. Heart size is normal. Degenerative changes in the thoracic spine. Suspected superimposed syndesmophytes overlying the lower thoracic spine with pulmonary nodule felt to be unlikely. ?? Procedure Note Arnav Mora MD - 09/14/2018 XR CHEST PA AND LATERAL 2 VW DATE: 09/14/2018 4:18 PM HISTORY: Complete rotator cuff tear or rupture of right shoulder, not specified as traumatic; Pre-operative exam. COMPARISON: 01/10/2014. FINDINGS: No consolidation or effusion. No pneumothorax. Heart size is normal. Degenerative changes in the thoracic spine. Suspected superimposed syndesmophytes overlying the lower thoracic spine with pulmonary nodule felt to be unlikely. IMPRESSION: 1. No acute abnormality identified. DICTATION LOCATION: [address] Courtney Weeks PA-C DIAGN OSTIC IMAGING ORDERABLES * (ABNORMAL) OH ECG ROUTINE ECG W/LEAST 12 LDS W/I&R (09/14/2018 4:07 PM COSMETIC SALES ASSISTANT) Narrative [facility] - 09/14/2018 4:07 PM COSMETIC SALES ASSISTANT Courtney Weeks PA-C ? 09/14/2018 ??4:12 PM EKG: there are no previous tracings available for comparison, RBBB, left axis deviation. Procedure Note Courtney Weeks PA-C - 09/14/2018 4:07 PM CST EKG: there are no previous tracings available for comparison, RBBB, leftaxis deviation. Courtney Weeks PA-C ECG O RDERABLES [facility] CLIA# [id number] [address] [facility] [address] [place] [address] * COMPREHENSIVE METABOLIC PANEL (09/14/2018 4:07 PM COSMETIC SALES ASSISTANT) SODIUM 144 136 - 145 mmol/L 09/14/2018 9:02 PM COSMETIC SALES ASSISTANT [facility] POTASSIUM 4.2 3.5 - 5.0 mmol/L 09/14/2018 9:02 PM COSMETIC SALES ASSISTANT [facility] CHLORIDE 104 98 - 107 mmol/L 09/14/2018 9:02 PM COSMETIC SALES ASSISTANT [facility] CO2 26 22 - 29 mmol/L 09/14/2018 9:02 PM COSMETIC SALES ASSISTANT [facility] CALCIUM 9.7 8.6 - 10.2 mg/dL 09/14/2018 9:02 PM COSMETIC SALES ASSISTANT [facility] BUN 16 8 - 23 mg/dL 09/14/2018 9:02 PM COSMETIC SALES ASSISTANT [facility] CREATININE 1.03 0.67 - 1.17 mg/dL 09/14/2018 9:02 PM COSMETIC SALES ASSISTANT [facility] GLUCOSE 93 74 - 99 mg/dL 09/14/2018 9:02 PM COSMETIC SALES ASSISTANT [facility] TOTAL PROTEIN 7.5 6.7 - 8.6 g/dL 09/14/2018 9:02 PM [facility] ALBUMIN 4.2 3.5 - 5.2 g/dL 09/14/2018 9:02 PM [facility] BILIRUBIN TOTAL 0.4 0.2 - 1.1 mg/dL 09/14/2018 9:02 PM [facility] ALKALINE PHOSPHATASE 67 40 - 129 U/L 09/14/2018 9:02 PM [facility] AST 27 <41 U/L 09/14/2018 9:02 PM [facility] ALT 28 <42 U/L 09/14/2018 9:02 PM [facility] GFR >60 >=60 mL/min/1.7 3 sq meter 09/14/2018 9:02 PM [facility] [employer] [facility] Comment: eGFR has not been validated for use in the elderly (> 70 years of age), women, patients with serious co-morbid conditions, or persons with extremes of body size or muscle mass and should also be interpreted with caution in patients with acute kidney failure, dialysis dependent patients, patients reporting exceptional dietary intake (e.g. vegetarian diet, high protein diets, creatine supplementation), and patients with severe liver disease. Based on National Kidney Disease Education Program If patient is , please refer to the GFR result. GFR, >60 >=60 mL/min/1.7 3 sq meter 09/14/2018 9:02 PM [facility] [employer] [facility] ANION GAP 14 8 - 16 mmol/L 09/14/2018 9:02 PM [facility] [employer] [facility] Blood Venipuncture / Unknown 09/14/2018 4:07 PM COSMETIC SALES ASSISTANT 09/14/2018 4:07 PM [facility] Narrative [facility] - 09/14/2018 9:02 PM [facility] Samples containing indocyanine green cause interferences on Total and/or Direct Bilirubin and must not be measured. Courtney Weeks PA-C CHEMI STRY ORDERABLES [facility] [employer] [facility] CLIA# [id number] [address] [place] [address] * CBC WITH DIFFERENTIAL (09/14/2018 4:07 PM COSMETIC SALES ASSISTANT) [facility] WBC 9.4 4.0 - 9.8 K/uL 09/14/2018 8:34 PM COSMETIC SALES ASSISTANT [facility] [place] RBC 5.11 4.50 - 5.40 M/uL 09/14/2018 8:34 PM COSMETIC SALES ASSISTANT [facility] [place] HEMOGLOBIN 15.6 13.6 - 16.5 g/dL 09/14/2018 8:34 PM COSMETIC SALES ASSISTANT [facility] [place] HEMATOCRIT 46.5 40.0 - 48.0 % 09/14/2018 8:34 PM [facility] [place] MCV 91.0 82.0 - 99.0 fL 09/14/2018 8:34 PM [facility] . [facility] MCH 30.5 27.2 - 32.6 pg 09/14/2018 8:34 PM [facility] . [facility] MCHC 33.5 31.5 - 35.5 g/dL 09/14/2018 8:34 PM [facility] [place] RDW 12.2 11.5 - 14.5 % 09/14/2018 8:34 PM [facility] . [facility] RDW-STDEV 40.3 37.1 - 48.7 fL 09/14/2018 8:34 PM [facility] [place] PLATELETS 274 140 - 350 K/uL 09/14/2018 8:34 PM [facility] MPV 10.3 9.3 - 12.4 fL 09/14/2018 8:34 PM COSMETIC SALES ASSISTANT [facility] NEUTROPHILS 50 % 09/14/2018 8:34 PM COSMETIC SALES ASSISTANT [facility] LYMPHOCYTES 32 % 09/14/2018 8:34 PM COSMETIC SALES ASSISTANT [facility] MONOCYTES 12 % 09/14/2018 8:34 PM COSMETIC SALES ASSISTANT [facility] EOSINOPHILS 4 % 09/14/2018 8:34 PM COSMETIC SALES ASSISTANT [facility] BASOPHILS 1 % 09/14/2018 8:34 PM COSMETIC SALES ASSISTANT [facility] IMMATURE GRANULOCYTES 0 % 09/14/2018 8:34 PM [facility] NEUTROPHIL ABSOLUTE 4.71 1.90 - 7.00 K/uL 09/14/2018 8:34 PM [facility] LYMPHOCYTE ABSOLUTE 3.00 0.70 - 4.50 K/uL 09/14/2018 8:34 PM [facility] MONOCYTE ABSOLUTE 1.13 0.10 - 1.30 K/uL 09/14/2018 8:34 PM [facility] EOSINOPHIL ABSOLUTE 0.41 0.00 - 0.70 K/uL 09/14/2018 8:34 PM [facility] BASOPHILS ABSOLUTE 0.11 0.00 - 0.20 K/uL 09/14/2018 8:34 PM [facility] - . [facility] IMMATURE GRANULOCYTES ABSOLUTE 0.03 0.00 - 0.03 K/uL 09/14/2018 8:34 PM [facility] [place] Blood Venipuncture / Unknown 09/14/2018 4:07 PM COSMETIC SALES ASSISTANT 09/14/2018 4:07 PM COSMETIC SALES ASSISTANT Courtney Weeks PA-C HEMAT OLOGY ORDERABLES [facility]# [id number] [facility] [place] [address] documented in this encounter Visit Diagnoses Diagnosis Complete rotator cuff tear or rupture of right shoulder, not specified as traumatic- Primary Complete rupture of rotator cuff Pre-operative exam Preoperative examination, unspecified Essential hypertension, benign Pure hypercholesterolemia Prediabetes Other abnormal glucose Gastroesophageal reflux disease, esophagitis presence not specified Complete rotator cuff tear or rupture of right shoulder, not specified as traumatic Complete rupture of rotator cuff Pre-operative exam Preoperative examination, unspecified documented in this encounter
--- OUTSIDE RECORDS SUMMARY | 2024-08-19 06:43 | XMS_ITS | Encounter Summary ---
Author Organization [facility] Address [address] [place] [address] Care Team Providers Care Mobile Disc Jockey Name Role Phone Unavailable Primary Care Provider Unavailabl e Reason for Visit * Reason Comments Knee Pain right side x5 days Encounter Details Date Type Department Care Team (Late st Contact Info) Description 01/02/2020 11:00 AM CDT Office Visit [facility] Medicine - [facility] [address], [address] [place] [address] Ciro Fernandez, DO [address] [facility] [address] [place] [address] Acute pain of right knee (Primary Dx); Refused influenza vaccine Social History Tobacco Use Types Packs/Day Years [...] Sign Reading Time Taken Comments Blood Pressure 130/80 01/02/2020 10:51 AM CDT Pulse 80 01/02/2020 10:51 AM CDT Temperature 36.4 ??C (97.6 ??F) 01/02/2020 10:51 AM C DT Respiratory Rate - - Oxygen Saturation - - Inhaled Oxygen Concentration - - Weight 93.4 kg (206 lb) 01/02/2020 10:51 AM CDT Height 180.3 cm (5' 11 ) 01/02/2020 10:51 AM CDT Body Mass Index 28.73 01/02/2020 10:51 AM CDT documented in this encounter Progress Notes * Ciro Fernandez, DO - 01/02/2020 11:03 AM CDT SUBJECTIVE: Brendon Aldana is a 69 y.o. male who complains of right knee pain that started several weeks ago. The patient denies injuring the knee. Symptoms: pain and swelling and clicking. Symptoms have been worsening since it started. Prior history of related problems: no history of surgery or procedure. Pain is 7-8/10 Taking NSAIDs and Tylenol without improvement. The leg does not 'give out' The patient denies numbness in LE. Review of Systems - General ROS: negative for weight changes, fever Respiratory ROS: negative for cough, shortness of breath Cardiovascular ROS: negative for chest pain or dyspnea on exertion Musculoskeletal ROS: negative for other unusual muscle/joint symptoms. Past Medical/Surgical/Social/Family History reviewed as well as Allergies and Medications. OBJECTIVE: Blood pressure 130/80, pulse 80, temperature 97.6 ??F (36.4 ??C), temperature source Temporal, height 5' 11 (1.803 m), weight 93.4 kg (206 lb). Appearance: alert, well appearing, and in no distress. Knee exam: Right side with patellar crepitus, lateral joint line tenderness, soft tissue swelling noted, reduced range of motion, exam limited by acuity of pain, negative drawer sign, collateral ligaments intact. S1 and S2 normal, no murmurs, clicks, gallops or rubs. Regular rate and rhythm. Chest is clear; no wheezes or rales. Neuro: Normal deep tendon reflexes. ASSESSMENT: Brendon was seen today for knee pain. Diagnoses and all orders for this visit: Acute pain of right knee - traMADoL (Ultram) 50 mg tablet; Take 1 Tablet (50 mg) by mouth every 8 hours as needed for Pain, Moderate or Pain, Severe. -XR KNEE 3 VW RIGHT; Future Refused influenza vaccine Knee exercises given. rest the injured area as much as practical, apply ice packs, elevate the injured limb Discussed Risks, Benefits and Alternatives of the current treatment regimen. Call or return to clinic prn if these symptoms worsen or fail to improve as anticipated. TOBACCO COUNSELING He is not a tobacco user. Normal BMI Range: 18 & older: > or = 18.5 and < 25 Body mass index is 28.73 kg/m??. Abnormal high BMI: Patient counseled on lifestyle modifications including weight loss and daily exercise. * Shani Jo - 01/02/2020 11:00 AM CDT Seasonal Influenza Vaccine Refused After discussion of risks and benefits of vaccination for seasonal influenza, he has refused immunization at this time. documented in this encounter Miscellaneous Notes * Patient Instructions - Shani Jo - 01/02/2020 11:16 AM CDT Right knee pain with effusion or fluid in the joint. lateral meniscus pain with possible bone spur behind the knee cap documented in this encounter Plan of Treatment Not on file documented as of this encounter Visit Diagnoses Diagnosis Acute pain of right knee- Primary Refused influenza vaccine Vaccination not carried out because of patient refusal documented in this encounter
--- OUTSIDE RECORDS SUMMARY | 2024-08-19 06:43 | XMS_ITS | Encounter Summary ---
Author Organization [facility] Address [address] [place] [address] Care Team Providers Care Senior Ui Web Developer Name Role Phone Unavailable Primary Care Provider Unavailabl e Reason for Visit * Reason Comments Hypertension follow up labs Cholesterol Problem Encounter Details Date Type Department Care Team (Late st Contact Info) Description 11/17/2018 1:45 PM CDT Office Visit [facility] Family Medicine - Bushra Yuan [address] [facility] [address] [place] [address] Ciro Fernandez, DO [address] [facility] [address] [place] [address] Essential hypertension, benign (Primary Dx); Pure hypercholesterolemia; Prediabetes; Need for Tdap vaccination; Need for pneumococcal vaccine Social History Tobacco Use Types Packs/Day [...] Sign Reading Time Taken Comments Blood Pressure 90/60 11/17/2018 1:28 PM CDT Pulse 68 11/17/2018 1:28 PM CDT Temperature 36.9 ??C (98.4 ??F) 11/17/2018 1:28 PM CD T Respiratory Rate - - Oxygen Saturation - - Inhaled Oxygen Concentration - - Weight 95.7 kg (211 lb) 11/17/2018 1:28 PM CDT Height 180.3 cm (5' 11 ) 11/17/2018 1:28 PM CDT Body Mass Index 29.43 11/17/2018 1:28 PM CDT documented in this encounter Progress Notes * Ciro Fernandez, - 11/17/2018 2:05 PM CDT SUBJECTIVE: Brendon Aldana is a 68 y.o. male here to discuss medical issues including hypertension. States he is not exercising or using his recumbent bike due to orthopedic injury and surgery. He will be going back to work soon. States poor nutrition during this time. He is also moving at the end of December to [place]. Hypertension: Current medication(s) reviewed. Taking and tolerating [...] prevention strategies. Last labs reviewed with patient. Past Medical/Surgical/Social/Family History reviewed as well [...] or unusual skin lesions noted OBJECTIVE: BP (!) 90/60 Pulse 68 Temp 98.4 ??F (36.9 ??C) (Temporal) Ht 5' 11 (1.803 m) [...] are normal. Extremities: Peripheral pulses normal, 1+ pitting edema bilaterally. Otherwise Lower extremities reveal no signs of deep venous thrombosis; calves and thighs are soft without swelling, induration or tenderness, Lara's sign is negative. Neuro: Normal deep tendon reflexes. Psych: Alaina Olivas was seen today for hypertension. Diagnoses and associated orders for this visit: Essential hypertension, benign - LIPID PANEL; Future - COMPREHENSIVE METABOLIC PANEL; Future - PROTEIN , RANDOM URINE; Future Decrease to Benicar 20mg - stop HCTZ due to improved blood pressure readings. Pure hypercholesterolemia - LIPID PANEL; Future - COMPREHENSIVE METABOLIC PANEL; Future Zocor CoQ10 Prediabetes - HEMOGLOBIN A1C; Future - COMPREHENSIVE METABOLIC PANEL Continue with good nutrition including low carbohydrate intake and Increase your aerobic exercise to 30 minutes continuous 5 times per week. Need for Tdap vaccination - TDAP VACCINE >7 YO IM Need for pneumococcal vaccine - PNEUMOCOCCAL POLYSACCHARIDE VACC 23 VALENT Check BP on a regular basis and report highs and lows. Discussed Risks, Benefits and Alternatives of the current treatment regimen. F/u in 4 months TOBACCO COUNSELING He is not a tobacco user. documented in this encounter Miscellaneous Notes * Result Encounter Note - Ciro Fernandez DO - 03/29/2019 8:42 AM CDT Your laboratory studies have been received and are overall normal. It is just time to schedule yourphysical and we will discuss further at your Well Adult Exam. documented in this encounter Plan of Treatment Not on file documented as of this encounter Procedures Procedure Name Priority Date/Time Associated Diagnosis Comments HEMOGLOBIN A1C Routine 03/28/2019 2:12 AM CDT Prediabetes LIPID PANEL Routine 03/28/2019 2:12 AM CDT Essential hypertension, benign Pure hypercholesterolemia COMPREHENSIVE METABOLIC PANEL Routine 03/28/2019 2:12 AM CDT Essential hypertension, benign Pure hypercholesterolemia Prediabetes documented in this encounter Results * (ABNORMAL) HEMOGLOBIN A1C (03/28/2019 2:12 AM CDT) HEMOGLOBIN A1C 6.0(H) <5.7 % of total Hgb [facility] Comment: For someone without known [...] children. FASTING:YES FASTING: YES Test Performed at: [facility] [address] [place], [place] ??[phone] Agus Valente D.O., MPH Blood 03/28/2019 2:12 AM CDT Ciro Fernandez DO CHEMISTRY ORDERABLES [facility] [address] [place] [address] * (ABNORMAL) COMPREHENSIVE METABOLIC PANEL (03/28/2019 2:12 AM CDT) GLUCOSE 101(H) 65 - 99 mg/dL [facility] Comment: ? Fasting reference interval For someone without known diabetes, a glucose value between 100 and 125 mg/dL is consistent with prediabetes and should be confirmed with a follow-up test. BUN 12 7 - 25 mg/dL [facility] CREATININE 0.93 0.70 - 1.25 mg/dL [facility] Comment: For patients >49 years of age, the reference limit for Creatinine is approximately 13% higher for people identified as -Bahraini. GFR 85 > OR = 60 mL/min/1 .73m2 [facility] GFR, 98 > OR = 60 mL/min/1 .73m2 [facility] BUN/CREAT RATIO NOT APPLICABLE 6 - 22 (calc) [facility] SODIUM 141 135 - 146 mmol/L [facility] POTASSIUM 4.6 3.5 - 5.3 mmol/L [facility] [employer] [facility] CHLORIDE 104 98 - 110 mmol/L [facility] [employer] . [facility] CO2 28 20 - 32 mmol/L [facility] [facility] CALCIUM 9.5 8.6 - 10.3 mg/dL [facility] [employer] [facility] TOTAL PROTEIN 6.9 6.1 - 8.1 g/dL [facility] ALBUMIN 4.0 3.6 - 5.1 g/dL [facility] GLOBULIN 2.9 1.9 - 3.7 g/dL (calc) [facility] ALBUMIN/GLOBULIN RATIO 1.4 1.0 - 2.5 (calc) [facility] BILIRUBIN TOTAL 0.7 0.2 - 1.2 mg/dL [facility] [employer] [facility] ALKALINE PHOSPHATASE 61 40 - 115 U/L [facility] AST 23 10 - 35 U/L [facility] [employer] [facility] ALT 31 9 - 46 U/L [facility] [employer] [facility] Comment: Test Performed at: [facility] [id number] [place] [address] ??[phone] Agus Valente D.O., MPH Blood 03/28/2019 2:12 AM CDT Ciro Fernandez DO CHEMISTRY ORDERABLES Performing Organization Address [facility]/ZIP Co de Phone Number [facility] [address] [place] [address] * LIPID PANEL (03/28/2019 2:12 AM CDT) CHOLESTEROL 149 <200 mg/dL [facility] HDL 44 >40 mg/dL [facility] TRIGLYCERIDE 133 <150 mg/dL [facility] LDL CALCULATED 82 mg/dL (calc) [facility] Comment: Reference range: <100 Desirable range <100 mg/dL for primary prevention; ?? <70 mg/dL for patients with CHD or diabetic patients with > or = 2 CHD risk factors. LDL-C is now calculated using the Steve calculation, which is a validated novel method providing better accuracy than the Friedewald equation in the estimation of LDL-C. Michele ELLIS et al. JACIEL. 2013;310(19): 6570-3666 (http://education.RentStuff.com/faq/MYK920) CHOL/HDL RATIO 3.4 <5.0 (calc) [facility] TOTAL NON-HDL CHOL(LDL+VLDL) 105 <130 mg/dL (calc) [facility] Comment: For patients with diabetes plus 1 major ASCVD risk factor, treating to a non-HDL-C goal of <100 mg/dL (LDL-C of <70 mg/dL) is considered a therapeutic option. Test Performed at: [facility] ??[phone] Agus Valente D.O., MPH Blood 03/28/2019 2:12 AM CDT Ciro Fernandez DO CHEMISTRY ORDERABLES Performing Organization Address [facility] Co de Phone Number [facility] [address] [place] [address] documented in this encounter Visit Diagnoses Diagnosis Essential hypertension, benign- Primary Pure hypercholesterolemia Prediabetes Other abnormal glucose Need for Tdap vaccination Need for prophylactic vaccination with combined fvwpwoumar-ldmeynl-psrqxeykh (DTP) vaccine Need for pneumococcal vaccine Need for prophylactic vaccination against streptococcus pneumoniae (pneumococcus) documented in this encounter
--- OUTSIDE RECORDS SUMMARY | 2024-08-19 06:43 | XMS_ITS | Encounter Summary ---
Author Organization [facility] Address [address] [place] [address] Care Team Providers Care Chief Technology Officer Name Role Phone Unavailable Primary Care Provider Unavailabl e Reason for Visit * Reason Onset Date Comments Medication Refill 07/05/2018 Encounter Details Date Type Department Care Team (Late st Contact Info) Description 07/05/2018 Refill [facility] Family Medicine - [facility] Abundio Yuan [address] [facility] [address] [place] [address] Ciro Fernandez DO [address] [facility] [address] [place] [address] Pure hypercholesterolemia Social History Tobacco [...] * Telephone Encounter - Kay Jesus - 07/05/2018 8:15 AM CSTFrom: Brendon Aldana Sent: 07/05/2018 7:41 AM BENCH HAND MACHINE Subject: Medication Renewal Request Brendon Aldana would like a refill of the following medications: simvastatin (ZOCOR) 40 mg tablet [Ciro Fernandez DO] Patient Comment: Rx must be written as a 90 day rx and sent to [facility]. Thank you. Preferred pharmacy: [facility] - [place], [place] - [address] [place] [address] Delivery method: Pickup H HAND MACHINE documented in this encounter Plan of Treatment Not on file documented as of this encounter Visit Diagnoses Diagnosis Pure hypercholesterolemia documented in this encounter
--- OUTSIDE RECORDS SUMMARY | 2024-08-19 06:43 | XMS_ITS | Encounter Summary ---
Author Organization [facility] Address [address] [place] [address] Care Team Providers Care Educational Psychologist Name Role Phone Unavailable Primary Care Provider Unavailabl e Encounter Details Date Type Department Care Team (Late st Contact Info) Description 09/07/2018 Orders Only [facility] Orthopedic Surgery - [address] [place] [address] [place] [address] [facility] [address] [facility] [address] [place] [address] Social History Tobacco Use Types Packs/Day Years [...]
--- OUTSIDE RECORDS SUMMARY | 2024-08-19 06:43 | XMS_ITS | Encounter Summary ---
Author Organization [facility] Address [address] [place] [address] Care Team Providers Care Product Builder Name Role Phone Unavailable Primary Care Provider Unavailabl e Reason for Visit * Reason Onset Date Comments Medication Refill 10/31/2017 Encounter Details Date Type Department Care Team (Late st Contact Info) Description 11/01/2017 [facility]ill [facility] - [facility] Abundio Yuan [address] [facility] [address] [place] [address] Ciro Fernandez DO [address] [facility] [address] [place] [address] Social History Tobacco Use Types [...] * Telephone Encounter - Kay Jesus - 11/01/2017 8:09 AM CDTFrom: Brendon Aldana Sent: 10/31/2017 6:49 PM CDT Subject: Medication Renewal Request Brendon Aldana would like a refill of the following medications: losartan (COZAAR) 50 mg tablet [Ciro Fernandez DO] Patient Comment: Rx must be written as a 90 day rx and sent to [facility] Preferred pharmacy: [facility] - [address] method: Pickup documented in this encounter Plan of Treatment Not on file documented as of this encounter Visit Diagnoses Not on filedocumented in this encounter
--- OUTSIDE RECORDS SUMMARY | 2024-08-19 06:43 | XMS_ITS | Encounter Summary ---
Author Organization [facility] Address [address] [place] [address] Care Team Providers Care Director Vaccine Name Role Phone Unavailable Primary Care Provider Unavailabl e Reason for Visit * Reason Onset Date Comments Results 04/18/2018 Encounter Details Date Type Department Care Team (Late st Contact Info) Description 04/18/2018 Telephone [facility] Family Medicine - [facility] [address] [facility] [address] [place] [address] Ciro Fernandez DO [address] [facility] [address] [place] [address] Results Social History Tobacco Use [...] * Telephone Encounter - Jennifer Long - 04/18/2018 9:48 AM CDT PT INFORMED/SK * Telephone Encounter - Jennifer Long - 04/18/2018 9:48 AM CDT ----- Message from Ciro Fernandez DO sent at 04/18/2018 7:50 AM CDT ----- Your laboratory studies have been received, please return to office for a follow up examination specifically for a 30 minute visit because you are due for a WELL ADULT EXAMINATION. documented in this encounter Plan of Treatment Not on file documented as of this encounter Visit Diagnoses Not on filedocumented in this encounter
--- OUTSIDE RECORDS SUMMARY | 2024-08-19 06:43 | XMS_ITS | Encounter Summary ---
Author Organization [facility] Address [address] [place] [address] Care Team Providers Care Community Music Therapist Name Role Phone Unavailable Primary Care Provider Unavailabl e Encounter Details Date Type Department Care Team (Late st Contact Info) Description 09/06/2018 Chart Note [facility] Orthopedic Surgery - [address] [place] [address] [place] [address] [facility] [address] [facility] [address] [place] [address] Social History Tobacco Use Types [...] as of this encounter Progress Notes * Hanny Mccoy - 09/29/2018 10:05 AM CST Spoke to pt to confirm surgery on 09/30/18 at [facility] and to arrive at 0800 am ICAL CARE NURSE SPECIALIST * Nilda Krishna RMA - 09/26/2018 3:02 PM CST Clearance from PCP scanned in to Media 09/26/18 ICAL CARE NURSE SPECIALIST * Susanna Harrison - 09/26/2018 8:14 AM CST Update on Pre-Op testing and Surgical Clearance LABS: N/A EKG: Completed 09/14/18 PCP Clearance: Received and Scanned in 09/07/18 Marketing Project Manager Clearance: Not requested PACE: N/A Comments: ICAL CARE NURSE SPECIALIST * Lady Kang - 09/22/2018 1:44 PM CST I left message on identified voicemail telling pt to finish all the Amox he was prescribed, push fluids, if has fever or persistent ear pain to contact PCP and let us know if he is not improving. Forwarding to Dr Castellano's nurse as MARIETTA. ICAL CARE NURSE SPECIALIST * Bailey Del Castillo - 09/22/2018 1:23 PM CST Patient states that he developed an ear infection on 09/20/18 went to his primary doctor Dr. Paige on 09/21 was put on Amoxicillin for [address] Landry Fernandez has cleared him forhis surgery scheduled on 09/30. Patient can be reached at [phone]. ICAL CARE NURSE SPECIALIST * Francisca Caraballo - 09/07/2018 11:04 AM CST Surgery Location & Date: [facility] 09/30/18 Medical Clearance Sent: Jonn weldon Cardiac Clearance Sent: n/a Patient aware of any pre op labs, EKG, xray: pt aware needs EKG PACE appt made: n/a CPT: 81947 [id number] Surgery Packet Given: handed Comments: ICAL CARE NURSE SPECIALIST * Jennifer Patel ANP - 09/06/2018 12:14 PM CST Pre-Op Scheduling Form- Shoulder Arthroscopy Brendon Aldana Admitting Physician: Nona DOS: Time: [x] Outpatient [] 23 Hour Obs LOCATION: [x] [place] [] [facility] [] [place] [] [facility] [] [facility] DIAGNOSIS: Right shoulder rotator cuff tear SURGICAL PROCEDURES: [] Shoulder scope, diagnostic, with or without synovial biopsy (CPT 57037) [] Shoulder scope w/ capsulorrhaphy, Bankart repair (CPT 34100) [] Shoulder scope w/ SLAP repair (CPT 32944) [] Shoulder scope w/ loose body removal (CPT 80183) [] Shoulder scope w/ limited debridement (CPT 00467) [x] Shoulder scope w/ extensive debridement (CPT 92025) [] Shoulder scope w/ distal clavicle excision (CPT 14581) [] Shoulder scope w/ lysis of adhesions, with or without FRANCISCO (CPT 20469) [x] Shoulder scope w/ subacromial decompression (CPT 11900) [x] Shoulder scope w/ rotator cuff repair (CPT 59253) [] Shoulder scope w/ biceps tenodesis (CPT 79787) [] Open distal clavicle resection (CPT 89633) [] Open rotator cuff repair, acute (CPT 49815) [] Open rotator cuff repair, chronic (CPT 33689) [] Open biceps tenodesis (CPT 68309) [] Open anterior capsulorrhaphy, Bankart repair (CPT 03773) [] Open latarjet, coracoid process transfer (CPT 96708) [] Open treatment of AC dislocation, acute or chronic (CPT 67677) [] Open treatment of AC dislocation, acute or chronic; w/ fascial graft (CPT 80523) ANESTHESIA REQUEST: General with interscalene POSITION: [x] Beach chair [] Lateral (gary bag) FAN BLADE ALIGNER NEEDED: Jorge VARGAS- IMPLANTS/EQUIPMENT (needs to be entered into case request comment section): ARTHREX [] 4.75mm Swivelock [] Suturetaks [] Pushlock [] Knotless Suturetaks [x] SPEEDbridge [] PASTAbridge [] 7-8 mm biceps Swivelock [] Forked biceps Swivelock [] Labral scorpion [] Dogbone [] Arthroflex graft LINVATEC [] Spectrum suture passer ABDULLAHI [] Iconix anchors ALLOGRAFTS [] Semitendinosus [] Gracilis [] Tibialis anterior DME [x] Polarcare [] Game Ready [x] Breg Slingshot [] Breg ARC brace PROCEDURE DURATION: 1.5 hour CLINIC FOLLOW UP: 12-14 days PHYSICAL THERAPY START (tentative): N/A REQUESTED PRE-OP TESTS: [x] EKG (Required for OP for patients over 50) [] Chest X-Ray [] UA [] CBC [] CMP MEDICAL CLEARANCE: [x] PCP [] Cardiac Latex Allergy: [] Yes [x] No Nickel Allergy: [] Yes [x] No Is the patient diabetic: [] Yes [x] No Is the patient a smoker: [] Yes [x] No MRSA: [] Yes [x] No Malignant Hyperthermia: [] Yes [x] No Pacemaker: [] Yes [x] No ICD: [] Yes [x] No Matrix Bath Attendant needed: [] Yes [x] No If so, what language: ICAL CARE NURSE SPECIALIST documented in this encounter Plan of Treatment Not on file documented as of this encounter Visit Diagnoses Not on filedocumented in this encounter
--- OUTSIDE RECORDS SUMMARY | 2024-08-19 06:43 | XMS_ITS | Encounter Summary ---
Author Organization [facility] Address [address] [place] [address] Care Team Providers Care Blueprint Clerk Name Role Phone Unavailable Primary Care Provider Unavailabl e Reason for Visit * Reason Comments Snoring Sleep Problem Encounter Details Date Type Department Care Team (Late st Contact Info) Description 10/19/2018 10:45 AM CDT Office Visit [facility] Medicine - [address] [place] [address] Ciro Fernandez, DO 107 [facility] [address]IA [address] [place] [address] Insomnia, unspecified type (Primary Dx) Social History Tobacco [...] Sign Reading Time Taken Comments Blood Pressure 108/60 10/19/2018 10:26 AM CDT Pulse 68 10/19/2018 10:26 AM CDT Temperature 36.4 ??C (97.6 ??F) 10/19/2018 10:26 AM C DT Respiratory Rate - - Oxygen Saturation - - Inhaled Oxygen Concentration - - Weight 95.3 kg (210 lb) 10/19/2018 10:26 AM CDT Height 180.3 cm (5' 11 ) 10/19/2018 10:26 AM CDT Body Mass Index 29.29 10/19/2018 10:26 AM CDT documented in this encounter Progress Notes * Jim Ciro Jaime, DO - 10/19/2018 10:59 AM CDT SUBJECTIVE: Brendon Aldana is a 68 y.o. male here to discuss Snoring and Sleep Problem Recently with right shoulder sleep and now needing to sleep on his back. States he has been snoringand poor sleep because of that. States normally sleeps well and doesn't snore. Insomnia: Patient is complaining of skeiner awakening, frequent night time awakening, difficulty falling asleep and non-restful sleep Patient has found minimal relief with OTC meds and sleep hygiene. Current medication(s) reviewed. Number of hours on average sleepin ROS: Psychological ROS: negative for change in mood or behavior Endocrine ROS: negative for unexpected new changes in weight Cardiovascular ROS: negative for chest pain, heart palpitations or dyspnea on exertion Neurological ROS: negative for confusion Past Medical/Surgical/Social/Family History reviewed as well as Allergies and Medications. OBJECTIVE: BP 108/60 Pulse 68 Temp 97.6 ??F (36.4 ??C) (Temporal) Ht 5' 11 (1.803 m) Wt 95.3 kg (210 lb) BMI 29.29 kg/m?? Appearance: alert, well appearing, and in no distress. Skin: No unusual rashes or suspicious skin lesions HEENT: Throat and pharynx normal. Neck supple. Thyroid not palpable, not enlarged, no nodules detected. No adenopathy or masses in the neck or supraclavicular region. Open posterior pharynx. CV: heart sounds: normal rate, regular rhythm, normal S1, S2, no murmurs, rubs, clicks or gallops, no carotid bruits Chest: Chest is clear, no wheezing or rales. Normal symmetric air entry throughout both lung dsouza. No chest wall deformities or tenderness. Psych: Appropriate A/P: Brendon was seen today for snoring and sleep problem. Diagnoses and all orders for this visit: Insomnia, unspecified type - traZODone (DESYREL) 50 mg tablet; Take 1 Tablet (50 mg) by mouth daily at bedtime. Urged close follow up. Consider CPAP if snoring or other symptoms continue. Discussed Risks, Benefits and Alternatives of the current treatment regimen. Call or return to clinic prn if these symptoms worsen or fail to improve as anticipated. Discussed treatment option of: avoiding heavy meal before bedtime, avoiding vigorous physical exercise prior to bed, decreasing caffeine consumption, going to sleep at the same time each night, decreasing evening water, and regular daily exercise. Handout given to patient on sleep hygiene. TOBACCO COUNSELING He is not a tobacco user. * Courtney Weeks PA-C - 10/19/2018 10:56 AM CDT SUBJECTIVE: Brendon Aldana is a 68 y.o. male here to discuss Snoring and Sleep Problem Accompanied by his who helps with history. Insomnia: Patient is complaining of skeiner awakening, frequent night time awakening, difficulty falling asleep and non-restful sleepj. He had right rotator cuff surgery about 3 weeks ago and symptoms have worsened since then. However he does admit symptoms started prior to that but were more intermittent. He has been sleeping in a recliner since the surgery, which is not helped the situation. He tried sleeping in his bed last night but had difficulty sleeping on his back. He does have some daytime fatigue and typically takes a 30 -minute nap after coming home from work. He does snore, but his states he goes away when he moves to the side. She denies any apneic type events. No family history of sleep apnea. Paient has not attempted self treatment. Current medication(s) reviewed. Number of hours on average sleepin Patient has decreased caffeine use Patient does not Exercise ROS: Psychological ROS: negative for change in mood or behavior Ophthalmic ROS: negative for visual changes. Hematological and Lymphatic ROS: negative for abnormal bleeding Endocrine ROS: negative for unexpected new changes in weight Cardiovascular ROS: negative for chest pain, heart palpitations or dyspnea on exertion Neurological ROS: negative for confusion Past Medical/Surgical/Social/Family History reviewed as well as Allergies and Medications. OBJECTIVE: BP 108/60 Pulse 68 Temp 97.6 ??F (36.4 ??C) (Temporal) Ht 5' 11 (1.803 m) Wt 95.3 kg (210 lb) BMI 29.29 kg/m?? Appearance: alert, well appearing, and in no distress. Skin: No unusual rashes or suspicious skin lesions Eyes: normal, normal vessels, EOMFI, PERRLA. HEENT: Throat and pharynx normal. Neck supple. Thyroid not palpable, not enlarged, no nodules detected. No adenopathy or masses in the neck or supraclavicular region CV: heart sounds: normal rate, regular rhythm, normal S1, S2, no murmurs, rubs, clicks or gallops, no carotid bruits Chest: Chest is clear, no wheezing or rales. Normal symmetric air entry throughout both lung dsouza. No chest wall deformities or tenderness. Extremities: peripheral pulses normal, no pedal edema Neuro: Normal deep tendon reflexes. Psych: Appropriate A/P: Brendon was seen today for snoring and sleep problem. Diagnoses and all orders for this visit: Insomnia, unspecified type - traZODone (DESYREL) 50 mg tablet; Take 1 Tablet (50 mg) by mouth daily at bedtime. Consider sleep study if no improvement Discussed Risks, Benefits and Alternatives of the current treatment regimen. Call or return to clinic prn if these symptoms worsen or fail to improve as anticipated. Discussed treatment option of: avoiding heavy meal before bedtime, avoiding vigorous physical exercise prior to bed, decreasing caffeine consumption, going to sleep at the same time each night, decreasing evening water, and regular daily exercise. Handout given to patient on sleep hygiene. documented in this encounter Plan of Treatment Not on file documented as of this encounter Visit Diagnoses Diagnosis Insomnia, unspecified type- Primary documented in this encounter
--- OUTSIDE RECORDS SUMMARY | 2024-08-19 06:43 | XMS_ITS | Encounter Summary ---
Author Organization [facility] Address [address] [place] [address] Care Team Providers Care Supervisor Loading Name Role Phone Unavailable Primary Care Provider Unavailabl e Encounter Details Date Type Department Care Team (Latest Contact Info) Description 09/06/2018 10:20 AM TILE ERECTOR Ancillary Procedure [facility] Orthopedic Surgery - [place] [id number] [place] [address] [place] [address] Jennifer Patel, [facility] [address] [place] [address] Acute pain of right shoulder Social History Tobacco Use Types Packs/Day Years [...] Procedure Name Priority Date/Time Associated Diagnosis Comments XR SHOULDER 2+ VW RIGHT Routine 09/06/2018 10:25 AM TILE ERECTOR Acute pain of right shoulder documented in this encounter Results * XR SHOULDER 2+ VW RIGHT (09/06/2018 10:25 AM TILE ERECTOR) Anatomical Region Laterality Modality Upper Extremity Computed Radiogr aphy Narrative 09/30/2018 3:32 PM TILE ERECTOR Radiographic Views: 3 views right shoulder were obtained. Radiographic Interpretation: X-rays right shoulder demonstrate type II acromion, no superior migration of the humeral head, mild AC joint degenerative change, mild glenohumeral degenerative change. ALICIA Herrera, 09/06/2018 12:45 PM [facility] documented in this encounter Visit Diagnoses Diagnosis Acute pain of right shoulder documented in this encounter
--- OUTSIDE RECORDS SUMMARY | 2024-08-19 06:43 | XMS_ITS | Encounter Summary ---
Author Organization [facility] Address [address] [place] [address] Care Team Providers Care Hazardous Materials Driver Name Role Phone Unavailable Primary Care Provider Unavailabl e Reason for Visit * Reason Onset Date Comments Medication Refill 06/24/2018 Encounter Details Date Type Department Care Team (Late st Contact Info) Description 06/24/2018 Refill [facility] Medicine - [facility] [address] [facility] [address] [place] [address] Ciro Fernandez, DO [address] [facility] [address] [place] [address] Social History Tobacco Use Types [...] as of this encounter Miscellaneous Notes * Addendum Note - Sisi James - 06/24/2018 10:06 AM CSTAddended by: SISI JAMES on: 06/24/2018 10:06 AM Modules accepted: Orders NIC SCIENCES PROFESSOR * Telephone Encounter - Sisi James - 06/24/2018 9:50 AM CST Patient called back and would like script sent to different pharmacy. Script cancelled through [employer]. NIC SCIENCES PROFESSOR documented in this encounter Plan of Treatment Not on file documented as of this encounter Visit Diagnoses Not on filedocumented in this encounter
--- OUTSIDE RECORDS SUMMARY | 2024-08-19 06:43 | XMS_ITS | Encounter Summary ---
Author Organization [facility] Address [address] [facility] Attn: Epic Prelude ADT [place] [address] Care Team Providers Care Cmm Inspector Name Role Phone Unavailable Primary Care Provider Unavailabl e Encounter Details Date Type Department Care Team (Latest Contact Info) Description 01/02/2020 Travel Social History Tobacco Use Types Packs/Day [...]
--- OUTSIDE RECORDS SUMMARY | 2024-08-19 06:43 | XMS_ITS | Encounter Summary ---
Author Organization [facility] Address [address] [place] [address] Care Team Providers Care Pharmacy Service Associate Name Role Phone Unavailable Primary Care Provider Unavailabl e Encounter Details Date Type Department Care Team (Latest Contact Info) Description 09/14/2018 4:05 PM FIELD HAULER - 09/14/2018 11:59 PM [facility] Hospital Encounter [facility] Laboratory Services [facility] 107 [facility] [address] [place] [address] Courtney Weeks PA-C [address] [place] [address] Discharge Disposition: Home or Self Care Social [...] UBIDECARENONE (CO Q-10 ORAL) Take by mouth. omeprazole (PriLOSEC) 20 mg Capsule, Delayed Release(E.C.)Indications:G astroesophageal reflux disease, esophagitis presence not specified Take 1 Capsule (20 mg) by mouth daily. 180 Capsule 09/14/2018 03/13/2019 losartan-hydroCHLOROthiazi de (HYZAAR) 50-12.5 mg tabletIndications:Essentia l hypertension, benign Take 0.5 Tablets by mouth daily. 30 Tablet 08/12/2018 10/17/2018 simvastatin (ZOCOR) 40 mg tabletIndications:Pure hypercholesterolemia Take 1 Tablet (40 mg) by mouth late in the day. 90 Tablet 1 07/05/2018 12/12/2018 cetirizine-pseudoephedrine sr 12 hour (ZyrTEC-D) 5-120 mg tablet TAKE ONE TABLET BY MOUTH TWO TIMES DAILY. 72 Tablet 5 06/24/2018 01/19/2019 fluticasone (FLONASE) 50 mcg/spray [place], Suspension Administer 2 Sprays in each nostril daily. 48 Gram 3 12/06/2017 12/12/2018 documented as of this encounter Plan of Treatment Not on file documented as of this encounter Procedures Procedure Name Priority Date/Time Associated Diagnosis Comments CBC WITH DIFFERENTIAL Routine 09/14/2018 4:07 PM FIELD HAULER Pre-operative exam COMPREHENSIVE METABOLIC PANEL Routine 09/14/2018 4:07 PM FIELD HAULER Pre-operative exam documented in this encounter Results * COMPREHENSIVE METABOLIC PANEL (09/14/2018 4:07 PM FIELD HAULER) SODIUM 144 136 - 145 mmol/L 09/14/2018 9:02 PM FIELD HAULER [email or web address] LABORATORY SERVICES - [facility] POTASSIUM 4.2 3.5 - 5.0 mmol/L 09/14/2018 9:02 PM FIELD HAULER [email or web address] LABORATORY SERVICES - . [facility] CHLORIDE 104 98 - 107 mmol/L 09/14/2018 9:02 PM FIELD HAULER [email or web address] LABORATORY SERVICES - [facility] CO2 26 22 - 29 mmol/L 09/14/2018 9:02 PM FIELD HAULER [email or web address] LABORATORY SERVICES - . [facility] CALCIUM 9.7 8.6 - 10.2 mg/dL 09/14/2018 9:02 PM FIELD HAULER [email or web address] LABORATORY SERVICES - . [place] BUN 16 8 - 23 mg/dL 09/14/2018 9:02 PM FIELD HAULER [email or web address] LABORATORY SERVICES - . [facility] CREATININE 1.03 0.67 - 1.17 mg/dL 09/14/2018 9:02 PM FIELD HAULER [email or web address] LABORATORY SERVICES - . [facility] GLUCOSE 93 74 - 99 mg/dL 09/14/2018 9:02 PM [facility] [employer] [facility] TOTAL PROTEIN 7.5 6.7 - 8.6 g/dL 09/14/2018 9:02 PM [facility] [employer] [facility] ALBUMIN 4.2 3.5 - 5.2 g/dL 09/14/2018 9:02 PM [facility] BILIRUBIN TOTAL 0.4 0.2 - 1.1 mg/dL 09/14/2018 9:02 PM [facility] [employer] [facility] ALKALINE PHOSPHATASE 67 40 - 129 U/L 09/14/2018 9:02 PM [facility] [employer] [facility] AST 27 <41 U/L 09/14/2018 9:02 PM [facility] [employer] [facility] ALT 28 <42 U/L 09/14/2018 9:02 PM [facility] [employer] [facility] GFR >60 >=60 mL/min/1.7 3 sq meter 09/14/2018 9:02 PM [facility] [employer] [facility] Comment: eGFR has not been validated for [...] 3 sq meter 09/14/2018 9:02 PM [facility] [employer] [facility] ANION GAP 14 8 - 16 mmol/L 09/14/2018 9:02 PM [facility] [employer] [facility] Blood Venipuncture / Unknown 09/14/2018 4:07 PM FIELD HAULER 09/14/2018 4:07 PM [facility] [employer] [facility] - 09/14/2018 9:02 PM [facility] Samples containing indocyanine green cause interferences on Total and/or Direct Bilirubin and must not be measured. Courtney Weeks PA-C [email or web address] LABORATORY SERVICES - [facility] CLIA# [id number] [address] [place] [address] * CBC WITH DIFFERENTIAL (09/14/2018 4:07 PM FIELD HAULER) WBC 9.4 4.0 - 9.8 K/uL 09/14/2018 8:34 PM FIELD HAULER [email or web address] LABORATORY SERVICES - . [place] RBC 5.11 4.50 - 5.40 M/uL 09/14/2018 8:34 PM [employer] LABORATORY SERVICES - . [place] HEMOGLOBIN 15.6 13.6 - 16.5 g/dL 09/14/2018 8:34 PM FIELD HAULER [email or web address] LABORATORY SERVICES - [facility] HEMATOCRIT 46.5 40.0 - 48.0 % 09/14/2018 8:34 PM [employer] LABORATORY SERVICES - . [facility] MCV 91.0 82.0 - 99.0 fL 09/14/2018 8:34 PM [employer] LABORATORY SERVICES - . [place] MCH 30.5 27.2 - 32.6 pg 09/14/2018 8:34 PM FIELD HAULER [email or web address] LABORATORY SERVICES - [facility] MCHC 33.5 31.5 - 35.5 g/dL 09/14/2018 8:34 PM FIELD HAULER [email or web address] LABORATORY SERVICES - . [place] RDW 12.2 11.5 - 14.5 % 09/14/2018 8:34 PM [employer] LABORATORY SERVICES - [facility] RDW-STDEV 40.3 37.1 - 48.7 fL 09/14/2018 8:34 PM [employer] LABORATORY SERVICES - . [place] PLATELETS 274 140 - 350 K/uL 09/14/2018 8:34 PM [employer] LABORATORY SERVICES - . [place] MPV 10.3 9.3 - 12.4 fL 09/14/2018 8:34 PM FIELD HAULER [email or web address] LABORATORY SERVICES - [facility] NEUTROPHILS 50 % 09/14/2018 8:34 PM FIELD HAULER [email or web address] LAB[facility]ATORY SERVICES - [facility] LYMPHOCYTES 32 % 09/14/2018 8:34 PM FIELD HAULER [email or web address] LAB[facility]ATORY SERVICES - [facility] MONOCYTES 12 % 09/14/2018 8:34 PM FIELD HAULER [email or web address] LABORATORY SERVICES - [facility] EOSINOPHILS 4 % 09/14/2018 8:34 PM FIELD HAULER [email or web address] LABORATORY [facility] - . [place] BASOPHILS 1 % 09/14/2018 8:34 PM [facility] LABORATORY [facility] - . [place] IMMATURE GRANULOCYTES 0 % 09/14/2018 8:34 PM [facility] LABORATORY [facility] - . [facility] NEUTROPHIL ABSOLUTE 4.71 1.90 - 7.00 K/uL 09/14/2018 8:34 PM [facility] LABORATORY [facility] - . [facility] LYMPHOCYTE ABSOLUTE 3.00 0.70 - 4.50 K/uL 09/14/2018 8:34 PM [facility] LABORATORY [facility] - . [place] MONOCYTE ABSOLUTE 1.13 0.10 - 1.30 K/uL 09/14/2018 8:34 PM [facility] LABORATORY [facility] - . [place] EOSINOPHIL ABSOLUTE 0.41 0.00 - 0.70 K/uL 09/14/2018 8:34 PM [facility] LABORATORY [facility] - . [place] BASOPHILS ABSOLUTE 0.11 0.00 - 0.20 K/uL 09/14/2018 8:34 PM [facility] LABORATORY [facility] - . [facility] IMMATURE GRANULOCYTES ABSOLUTE 0.03 0.00 - 0.03 K/uL 09/14/2018 8:34 PM [facility] LABORATORY [facility] - . [facility] Blood Venipuncture / Unknown 09/14/2018 4:07 PM FIELD HAULER 09/14/2018 4:07 PM FIELD HAULER Courtney Weeks PA-C [employer] ORDER[employer] [facility]# [id number] [address] [place] [address] documented in this encounter Visit Diagnoses Diagnosis Pre-operative exam Preoperative examination, unspecified documented in this encounter
--- OUTSIDE RECORDS SUMMARY | 2024-08-19 06:43 | XMS_ITS | Encounter Summary ---
Author Organization [facility] Address [address] [place] [address] Care Team Providers Care Parachute Accessories Attacher Name Role Phone Unavailable Primary Care Provider Unavailabl e Reason for Visit * Reason Onset Date Comments Medication Problem 10/17/2018 Encounter Details Date Type Department Care Team (Late st Contact Info) Description 10/17/2018 Telephone [facility] Family Medicine - [facility] [address] [facility] [address] [place] [address] Ciro Fernandez, DO [address] [facility] [address] [place] [address] Medication Problem Social History Tobacco Use Types Packs/Day Years [...] * Telephone Encounter - Shani Jo - 10/17/2018 12:00 PM CDT Spoke to patient advised of new blood pressure medication sent over to pharmacy in place of the losartan. Patient advised to come in for a blood pressure check 7 days after taking new medication, patient accepts. * Telephone Encounter - Courtney Weeks PA-C - 10/17/2018 9:43 AM CDT I have a 30 day supply of Benicar HCT pended for his local pharmacy so he can change. He has been on this medication previously, and it is a similar medication to the Hyzaar (losartan-HCTZ). If any issues with insurance coverage, we may need to split the pill to Benicar (olmesartan) 20 mg + HCTZ 12.5 mg. We will see what is covered first prior to sending on to [employer]. Regardless which change is made, we would want to recheck BP in the office 7 days after starting. * Telephone Encounter - Jennifer Long - 10/17/2018 8:45 AM CDT Pt did get a letter from his rx ins co ([employer]) that Losartan is recalled, should he change to something else? Please advise ([employer] is the recall company) documented in this encounter Plan of Treatment Not on file documented as of this encounter Visit Diagnoses Not on filedocumented in this encounter
--- OUTSIDE RECORDS SUMMARY | 2024-08-19 06:43 | XMS_ITS | Encounter Summary ---
Author Organization [facility] Address [address] [place] [address] Care Team Providers Care Missile Inspector Name Role Phone Unavailable Primary Care Provider Unavailabl e Reason for Visit * Reason Comments Rash right lower leg Encounter Details Date Type Department Care Team (Late st Contact Info) Description 03/18/2018 1:45 PM CDT Office Visit [facility] Medicine - [facility] [address] [facility] [address] [place] [address] Ciro Fernandez, DO [address] [facility] [address] [place] [address] Rash (Primary Dx) Social History Tobacco Use Types [...] Sign Reading Time Taken Comments Blood Pressure 104/72 03/18/2018 1:26 PM CDT Pulse 66 03/18/2018 1:26 PM CDT Temperature 36.6 ??C (97.9 ??F) 03/18/2018 1:26 PM CD T Respiratory Rate - - Oxygen Saturation - - Inhaled Oxygen Concentration - - Weight 95.7 kg (211 lb) 03/18/2018 1:26 PM CDT Height 180.3 cm (5' 11 ) 03/18/2018 1:26 PM CDT Body Mass Index 29.43 03/18/2018 1:26 PM CDT documented in this encounter Progress Notes * Ciro Fernandez DO - 03/18/2018 1:46 PM CDT Subjective: Brendon Aldana is a 67 y.o. male who presents for evaluation of rash involving the: right lower leg. Rash started several month ago. Discomfort associated with rash: pruritic. Denies: fever, swelling of lips, tongue or throat, wheezing or shortness of breath. Rash has changed over time. Patient has not had contacts with similar rash. Patient has not had new exposures (soaps, lotions, laundry detergents, foods, medications, animals,travel.) Past Medical/Surgical/Social/Family History reviewed as well as Allergies and Medications. Objective: BP 104/72 Pulse 66 Temp 97.9 ??F (36.6 ??C) (Temporal) Ht 5' 11 (1.803 m) Wt 95.7 kg (211 lb) BMI 29.43 kg/m?? General appearance: alert, well appearing, and in no distress. Skin exam - LESIONS NOTED: 3 cm patch of erythematous excoriated and shiny plaques on the right lower leg. +stasis dermatitis on bilateral lower legs. No Lymphatic Streak or lymph node enlargment. The remainder of the skin exam is normal S1 and S2 normal, no murmurs, clicks, gallops or rubs. Regular rate and rhythm. Chest is clear; no wheezes or rales. Throat and pharynx normal. Neck supple. No adenopathy or masses in the neck or supraclavicular regions. Psych: Appropriate Assessment: Plan: Brendon was seen today for rash. Diagnoses and all orders for this visit: Rash - clotrimazole-betamethasone (LOTRISONE) 1-0.05 % Cream; Apply to affected area 2 times daily for 14 days. Follow up as needed. Discussed Risks, Benefits and Alternatives of the current treatment regimen. Call or return to clinic prn if these symptoms worsen or fail to improve as anticipated. documented in this encounter Plan of Treatment Not on file documented as of this encounter Visit Diagnoses Diagnosis Rash- Primary Rash and other nonspecific skin eruption documented in this encounter
--- OUTSIDE RECORDS SUMMARY | 2024-08-19 06:43 | XMS_ITS | Encounter Summary ---
Author Organization [facility] Address [address] [place] [address] Care Team Providers Care A&P Mechanic Name Role Phone Unavailable Primary Care Provider Unavailabl e Reason for Referral * Radiology Services (Routine) - Closed Specialty Diagnoses / Procedures Referred By Contac t Referred To Contact Diagnoses Acute post-operative pain Procedures US GUIDE NEEDLE PLACEMENT Sharan Hodgson, Andres Hutchins MD [address] [place] [address] Referral ID Status Reason Start Date Expiration Date Visits Re quested Visits Authorized [id number] Closed 09/29/2018 10/30/2019 1 1 T ATTENDANT Reason for Visit * Auth/Cert Specialty Diagnoses / Procedures Referred By Contac t Referred To Contact General Surgery Diagnoses Right shoulder rotator cuff tear Procedures NE SHLDR ARTHROSCOP,SURG,W/ROTAT CUFF REPR NE SHOULDER SCOPE BONE SHAVING NE SHLDR ARTHROSCOP,EXTEN DEBRIDE NE REPAIR ROTATOR CUFF,CHRONIC RIGHT SHOULDER SCOPE W ROTATOR CUFF REPAIR, SUBACROMIAL DECOMPRESSION, W EXTENSIVE DERIDEMENT [facility] [address] [place] [address] Referral ID Status Reason Start Date Expiration Date Visits Re quested Visits Authorized [id number] 1 1 Encounter Details Date Type Department Care Team (Latest Contact Info) Description 09/30/2018 7:35 AM GUEST ATTENDANT - 09/30/2018 1:27 PM GUEST ATTENDANT Hospital Encounter [facility] [id number] [place] [address] [place] [address] [place] [address] S/P arthroscopy of right shoulder Discharge Disposition: Home or Self Care Social [...] Sign Reading Time Taken Comments Blood Pressure 129/77 09/30/2018 12:55 PM GUEST ATTENDANT Pulse 68 09/30/2018 12:55 PM GUEST ATTENDANT Temperature 36.7 ??C (98.1 ??F) 09/30/2018 11:[address] Respiratory Rate 25 09/30/2018 12:55 PM GUEST ATTENDANT Oxygen Saturation 93% 09/30/2018 12:55 PM GUEST ATTENDANT Inhaled Oxygen Concentration - - Weight 91.6 kg (202 lb) 09/30/2018 8:28 AM GUEST ATTENDANT Height 180.3 cm (5' 11 ) 09/30/2018 8:28 AM GUEST ATTENDANT Body Mass Index 28.17 09/30/2018 8:28 AM GUEST ATTENDANT documented in this encounter Discharge Instructions * Discharge Instructions* Jennifer Patel, ANP - 09/30/2018 11:41 AM GUEST ATTENDANT SHOULDER SURGERY DISCHARGE INSTRUCTIONS Nehemiah Castellano MD [facility] Patient: Brendon Aldana : 1950 Date: 09/30/2018 Your surgery included: Right shoulder arthroscopy with subacromial decompression and rotator cuff repair. Explanation: Shoulder surgery is commonly done in an outpatient setting allowing you to have surgery and return home both safely and comfortably the same day. On occasion, a patient will have nausea or pain severe enough to require overnight hospitalization. Pain Management: A cold therapy cuff, pain medications, local injections, and in some cases, regional anesthesia injections are used to manage your post- operative pain. The decision to use each of these options is based on their risks and benefits. Cold Therapy: You may have been sent home with a cold wrap for your shoulder. This wrap will help relieve pain and control swelling. Use the wrap throughout the day for the first two days and then asneeded. Regional Anesthesia Injections: You may have been given a regional nerve block either before or after surgery. This may make your entire arm numb for 24-36 hours. Medications: You were given one or more of the following medication prescriptions before leaving the hospital. Have the prescriptions filled at a pharmacy on your way home and follow the instructionson the bottles. If you need a refill on your medication, please call your pharmacy. Narcotic Medication (usually [place] or Percocet): Begin taking the narcotic medication before your shoulder begins to hurt. Some patients do not like to take any medication, but if you wait until yourpain is severe before you take the narcotic medication, you will be very uncomfortable for several hours waiting for the narcotic to work. Always take the narcotic medication with food. Diet: Eat a bland diet for the first day after surgery. Activity: After you arrive at home, spend most of the first 24 hours resting in bed, on the couch, or in a reclining chair. After the first 24 hours, slowly increase your activity level based on yoursymptoms. Dressing Change: Change the dressing on the 3rd day. It is normal for some blood to be seen on the dressings. It is also normal for you to see bruising on the skin around your shoulder and arm when you remove the dressing. If present, leave the steri-strip tape across the incisions. If you are concerned by the drainage or the appearance of your shoulder, please call the office. Showering: You may shower on the 3rd day after surgery if the wound is dry and clean, but do not let the wound soak in water until sutures are removed. After you shower, use fresh towel to pat dry incisions. Cover the stitches with Band- Aid dressings after showering. Shoulder Abduction Pillow or Brace: You may have been sent home with a pillow or brace holding yourarm away from your body. You need to wear it 24 hours a day for 6 weeks. You may remove the brace or sling when changing clothes or bathing. Shoulder Exercises: After certain procedures, we encourage you to begin exercises the first day after surgery in order to help you regain your shoulder motion. You may do the following exercises: Shoulder shrugs - Shrug your shoulders up and down. Squeeze your shoulder blades together. Pendulums - Bend forward allowing your arm to hang down in front of you. Gently swing your arm [id number] and front to back. Elbow/wrist/hand motion - Straighten and bend your elbow. Exercise your wrist and hand (squeeze ball) Your ability to do these exercises will improve as you continue to do them. Do these exercises for 3-5 minutes 3 times a day. Physical Therapy: Physical therapy is an essential component to your recovery from surgery. You will be need a physical therapy prescription (which may have been provided to you prior to surgery). Timing of physical therapy may depend on which procedures were performed during surgery. The plan will be for you to start formal physical therapy in 6 week(s) Your first post-operative visit will be 12-14 days after surgery. If you have any problems, please contact the office at . T ATTENDANT documented in this encounter Medications at Time of Discharge Medication Sig Dispensed Refills Start Date End Date Cholecalciferol, Vitamin D3, (VITAMIN D3) 2,000 unit Capsule Take 1 Cap by mouth daily. 03/08/2015 UBIDECARENONE (CO Q-10 ORAL) Take by mouth. amoxicillin (AMOXIL) 500 mg TabletIndications:Bilatera l otitis media with effusion,Acute non-recurrent frontal sinusitis Take 1 Tablet (500 mg) by mouth every 8 hours for 10 days. 30 Tablet 09/21/2018 10/01/2018 omeprazole (PriLOSEC) 20 mg Capsule, Delayed Release(E.C.)Indications:G [...] 5 06/24/2018 01/19/2019 fluticasone (FLONASE) 50 mcg/spray Central, Suspension Administer 2 Sprays in each nostril daily. 48 Gram 3 12/06/2017 12/12/2018 documented as of this encounter H&P Notes * Jennifer Patel ANP - 09/30/2018 8:19 AM CST HISTORY AND PHYSICAL 09/30/2018 PATIENT NAME: Brendon Aldana : 1950 AGE: 68 y.o. CSN: [id number] ORTHOPEDIC PHYSICIAN: Nehemiah Castellano MD PCP: Ciro Fernandez DO CHIEF COMPLAINT: Right shoulder pain PROCEDURE SCHEDULED: Procedure(s): RIGHT SHOULDER SCOPE W ROTATOR CUFF REPAIR, SUBACROMIAL DECOMPRESSION, W EXTENSIVE DERIDEMENT HPI: Brendon Aldana is a 68 y.o. male who has had shoulder pain intermittently for a [...] morning and 400 mg ibuprofen at bedtime. ?? Patient is employed and works for [employer] in [employer]. 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 PAST MEDICAL HISTORY: Past Medical History: Diagnosis Date ??? Community acquired pneumonia ??? Contact dermatitis and other eczema, due to unspecified cause ??? Essential hypertension ??? [place] (hard of hearing) ??? Motion sickness PAST SURGICAL HISTORY: Past Surgical History: Procedure Laterality Date ??? HX HEART CATHETERIZATION 1992 ??? 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 HX VASECTOMY 1980 ??? NE COLONOSCOPY FLX DX W/COLLJ SPEC WHEN PFRMD 01/12/2014 COLONOSCOPY performed by Modesta Wise DO at [facility] SOCIAL HISTORY: Social History Social History ??? Marital status: Spouse name: N/A ??? Number of children: N/A ??? Years of education: N/A Occupational History ??? [employer] Social History Main Topics ??? Smoking status: Never Smoker ??? Smokeless tobacco: Never Used ??? Alcohol use No ??? Drug use: No ??? Sexual activity: Not on file Other Topics Concern ??? Not on file Social History Narrative ??? No narrative on file FAMILY HISTORY: Family History Problem Relation Age of Onset [...] Neg Hx ??? Macular Degen Neg Hx MEDICATION ALLERGIES: Allergies Allergen Reactions ??? Bactrim [Sulfamethoxazole-Trimethoprim] Rash ??? Medrol [Methylprednisolone] Rash and Other (See Comments) redness CURRENT MEDICATIONS: No current facility-administered medications on file prior to encounter. Current Outpatient Prescriptions on File Prior to Encounter Medication Sig Dispense Refill ??? losartan-hydroCHLOROthiazide (HYZAAR) [...] Tablet 5 ??? fluticasone (FLONASE) 50 mcg/spray Central, Suspension Administer 2 Sprays in each nostril daily.48 Gram 3 ??? Cholecalciferol, Vitamin D3, (VITAMIN D3) 2,000 unit Capsule Take 1 Cap by mouth daily. ??? UBIDECARENONE (CO Q-10 ORAL) Take by mouth. REVIEW OF SYSTEMS: Review of Systems Constitutional: Negative for chills, [...] is not nervous/anxious and does not have insomnia PHYSICAL EXAMINATION: GENERAL APPEARANCE: AAOX3 in no acute distress, SKIN: Intact, warm, dry HEENT: Normocephalic, atraumatic NECK: Supple, nontender RESP: Normal Respiratory Effort CARDIAC: Regular rate & rhythm ABDOMEN: Soft, nontender NEURO: Neurovascularly intact EXTREMITIES: Musculoskeletal: 68-year-old, [id number], white male who presents in no acutedistress. He holds his shoulder in tension with the scapula elevated, most of the visit. Active right shoulder forward flexion to about 130 degrees, abduction about 130 degrees, internal rotation to L1, and external rotation about 40 degrees. Pain in all planes with active shoulder range of motion.Painful supraspinatus testing; however, negative drop arm. 4-/5 strength with resisted external rotation. Intact neurovascular exam. IMAGING: MRI imaging: Patient brings MRI CD with him. Patient had right shoulder MRI 08/17/2018. MRI demonstrates full-thickness tear of the supraspinatus tendon with approximately 1.4 cm retraction. No obvious muscle atrophy or fatty infiltration. ?? LABS: Lab Results Component Value Date/Time WBC 9.4 09/14/2018 04:07 PM HEMOGLOBIN 15.6 09/14/2018 04:07 PM HEMATOCRIT 46.5 09/14/2018 04:07 PM PLATELETS 274 09/14/2018 04:07 PM MCV 91.0 09/14/2018 04:07 PM Lab Results Component Value Date/Time SODIUM 144 09/14/2018 04:07 PM POTASSIUM 4.2 09/14/2018 04:07 PM CHLORIDE 104 09/14/2018 04:07 PM CO2 26 09/14/2018 04:07 PM CALCIUM 9.7 09/14/2018 04:07 PM BUN 16 09/14/2018 04:07 PM CREATININE 1.03 09/14/2018 04:07 PM GLUCOSE 93 09/14/2018 04:07 PM No results found for: HGBA1C No results found for: INR ASSESSMENT: Right Shoulder rotator cuff tear TREATMENT PLAN: Right Procedure(s): RIGHT SHOULDER SCOPE W ROTATOR CUFF REPAIR, SUBACROMIAL DECOMPRESSION, W EXTENSIVE DERIDEMENT ALICIA Herrera T ATTENDANT Associated attestation - Nehemiah Castellano MD - 09/30/2018 8:56 AM GUEST ATTENDANT I have reviewed the last H&P and examined the patient today and there are no changes. documented in this encounter OR Notes * Operative Report - Nehemiah Castellano MD - 09/30/2018 11:15 AM CST Operative Report : [facility] Patient: Brendon Aldana / 68 y.o. / male : 1950 Date: 09/30/2018 [facility]: [id number] Preoperative Diagnosis: Right shoulder rotator cuff tear Postoperative Diagnosis: Same with impingement Procedure Performed: Right shoulder arthroscopic rotator cuff repair, right shoulder arthroscopic subacromial decompression Surgeon: Nehemiah Castellano MD Senior Application Software Engineer: Jennifer Patel RN, ANP Surgical Staff: Tip Fixer: Katarina Alejandro RN; Barrie Reilly RN Scrub: Yessi Gallegos Cigarette Book Maker Private: Jennifer Patel ANP Anesthesia: General with interscalene block Estimated Blood Loss: Minimal Tourniquet Time: * No tourniquets in log * Complications: None Findings: He had a medium sized rotator cuff tear in the supraspinatus tendon insertion, came back together nicely with a speed bridge construct. He had a very tight subacromial space. Narrative: After proper identification and informed consent, the patient was brought to the operating room andgiven a general endotracheal anesthetic and interscalene block by Anesthesia. The block was given for both intraoperative and postoperative pain relief. 2 g of Ancef IV was given and they were placedin the beach chair position, appropriately padded, prepped and draped in the usual sterile fashion.We did a proper time-out and then I inserted the arthroscope through a posterior portal and made ananterior portal in the rotator interval. The shoulder was systematically inspected arthroscopically. The rotator cuff tear was immediately apparent just posterior to the biceps tendon. The biceps wasintact. The superior labrum was intact. There was no significant humeral head or glenoid arthritis.The anterior inferior labrum was intact, and the subscapularis was intact. We made a lateral [place] debrided the undersurface of the rotator cuff with a shaver, and then moved the scope into the subacromial space. There was a thick subacromial bursa with lots of inflammation, and we had to do quite a bit of work to obtain hemostasis and eliminate the inflamed bursa. This gave us a good view of the superior aspect of the medium size rotator cuff tear, which was mobile and had good tissue quality. I used a power rasp and shaver to debride the footprint of the rotator cuff insertion on the gr eater tuberosity, and then cleaned up the edges of the rotator cuff tear again with a shaver. We then passed two swivel lock anchors into the proximal humerus at the anterior and posterior edges of the tear, and passed the fiber tape and internal suture through the rotator cuff. We tied the internal stitch over the top of the rotator cuff to pull the edges together slightly, and then repaired therotator cuff using the other arms of suture in a crisscross fashion to hold the rotator cuff back down to the greater tuberosity nicely with a double row repair. I had a slight dogear at the anterioredge of the rotator cuff tear, and I used the internal stitch from the anterior lateral row anchor to place a horizontal mattress suture through the rotator cuff here fix that. The repair looked good, and I did a subacromial decompression using the power rasp from lateral and then posterior, converting the acromion to a type I, and co-planing the distal clavicle. I used the shaver to debride bonydebris, and maintain hemostasis with the ArthroCare. We documented our findings with pictures and re moved the arthroscopy instruments, pumped the shoulder free of arthroscopy fluid, and closed the portals with 3-0 Vicryl and 4-0 nylon sutures. The patient was then placed in sterile compressive dressing with a Polar Care and UltraSling, and awakened from general anesthetic, extubated, and taken from the operating room to the recovery room having tolerated the procedure well without apparent complications. My assistant media planner, Jennifer Patel, was present throughout the case and was critical for assistance with this challenging shoulder. Implants: Implant Name Type Inv. Item Serial No. Shipping Receiving Clerk Lot No. LRB No. Used Action ANCHOR SPEEDBRIDGE W/ BIOCMPST SWIVELCK [id number] - [id number] Loda ANCHOR SPE[employer]BR[employer] W/ BIOCMPST SWIVELCK [id number] [employer] [id number] Right 1 Implanted Nehemiah Castellano MD T ATTENDANT documented in this encounter Plan of Treatment Not on file documented as of this encounter Procedures Procedure Name Priority Date/Time Associated Diagnosis Comments US GUIDE NEEDLE PLACEMENT Routine 09/30/2018 9:43 AM GUEST ATTENDANT Acute post-operative pain SHOULDER ARTHROSCOPY 09/30/2018 8:59 AM GUEST ATTENDANT Right shoulder rotator cuff tear documented in this encounter Results * US GUIDE NEEDLE PLACEMENT (09/30/2018 9:43 AM GUEST ATTENDANT) Narrative 09/30/2018 9:43 AM GUEST ATTENDANT Order information only. ??Exam was auto-finalized. ?? Andres Tsang Jr., MD US ORDERABLES documented in this encounter Visit Diagnoses Diagnosis Acute post-operative pain S/P arthroscopy of right shoulder S/P right rotator cuff repair Status post subacromial decompression documented in this encounter Administered Medications Inactive Administered Medications - up to 3 most recent administrations Medication Order MAR Action Action Date Dose Rate Site diphenhydrAMINE (BENADRYL) injection 25 mg 25 mg, IV, POST-PROCEDURE ONCE PRN, 1 dose, Starting on Wed09/30/18 at 0949, Until Wed09/30/18 at 1534, Itching, Rash or Redness, Nausea/Emesis, Routine, PACU fentaNYL PF (SUBLIMAZE) 50 mcg/mL injection 25 mcg 25 mcg, IV, POST-PROCEDURE Q 3 MINUTES PRN, Starting on Wed09/30/18 at 0949, Until Wed09/30/18 at 1534, Pain, Moderate, For pain scale 4-6, Routine, PACU lactated ringers infusion IV, at 150 mL/hr, PRE-PROCEDURE CONTINUOUS, Starting on Wed09/30/18 at 0815, Until Wed09/30/18 at 1534, Routine, Pre-op New Bag 09/30/2018 9:54 AM GUEST ATTENDANT New Bag 09/30/2018 8:52 AM GUEST ATTENDANT 150 mL/hr lactated ringers infusion IV, at 125 mL/hr, POST-PROCEDURE CONTINUOUS, Starting on Wed09/30/18 at 1000, Until Wed09/30/18 at 1534, Routine, PACU lidocaine PF 2 % (XYLOCAINE MPF) injection 0.3 mL 0.3 mL, Infiltration, PRE-PROCEDURE ONCE, Starting on Wed09/30/18 at 0814, Until Wed09/30/18 at 1534, Routine, Pre-op Given 09/30/2018 8:52 AM GUEST ATTENDANT 0.3 mL ondansetron (ZOFRAN) 4 mg/2 mL injection 4 mg 4 mg, IV, POST-PROCEDURE ONCE PRN, 1 dose, Starting on Wed09/30/18 at 0949, Until Wed09/30/18 at 1534, Nausea/Emesis, Routine, PACU documented in this encounter Active and Recently Administered Medications Times are shown in GUEST ATTENDANT. Scheduled Medication Order 09/28/2018 09/29/2018 09/30/2018 ceFAZolin in sterile water (ANCEF) 2 gram/20 mL IV Syringe (PREMIX) 2,000 mg (COMPLETED) 2,000 mg, IV, PRE-PROCEDURE ONCE, 1 dose, Starting on Wed09/30/18 at 0814, Until Wed09/30/18 at 0931, Routine, Pre-op, Antibiotic Indication: Surgical prophylaxis 09 (Given - Provid er: SONU Olsen)0931 (Stopped - Provider: SONU Olsen) lidocaine PF 2 % (XYLOCAINE MPF) injection 0.3 mL 0.3 mL, Infiltration, PRE-PROCEDURE ONCE, Starting on Wed09/30/18 at 0814, Until Wed09/30/18 at 1534, Routine, Pre-op 0852 (Given - Provid er: Najma Avelar RN) Continuous Medication Order 09/28/2018 09/29/2018 09/30/2018 lactated ringers infusion IV, at 150 mL/hr, PRE-PROCEDURE CONTINUOUS, Starting on Wed09/30/18 at 0815, Until Wed09/30/18 at 1534, Routine, Pre-op 0852 (New Bag - Prov ider: Najma Avelar RN)0954 (New Bag - Provider: SONU Olsen)1136 (Fluid Volume - Provider: SONU Olsen)1303 (Stopped - Provider: Alona Roberts RN) lactated ringers infusion IV, at 125 mL/hr, POST-PROCEDURE CONTINUOUS, Starting on Wed09/30/18 at 1000, Until Wed09/30/18 at 1534, Routine, PACU 1000 (Due) PRN Medication Order 09/28/2018 09/29/2018 09/30/2018 diphenhydrAMINE (BENADRYL) injection 25 mg 25 mg, IV, POST-PROCEDURE ONCE PRN, 1 dose, Starting on Wed09/30/18 at 0949, Until Wed09/30/18 at 1534, Itching, Rash or Redness, Nausea/Emesis, Routine, PACU EPINEPHrine (ADRENALINE) 2 mL in sodium chloride 0.9 % irrigation 3,000 mL irrigation (CANCELED) INTRA-PROCEDURE PRN, Starting on Wed09/30/18 at 0953, Until Wed09/30/18 at 1133, Anesthesia Intra-op 0953 (Given - Provid er: Nehemiah Castellano MD) fentaNYL PF (SUBLIMAZE) 50 mcg/mL injection 25 mcg 25 mcg, IV, POST-PROCEDURE Q 3 MINUTES PRN, Starting on Wed09/30/18 at 0949, Until Wed09/30/18 at 1534, Pain, Moderate, For pain scale 4-6, Routine, PACU ondansetron (ZOFRAN) 4 mg/2 mL injection 4 mg 4 mg, IV, POST-PROCEDURE ONCE PRN, 1 dose, Starting on Wed09/30/18 at 0949, Until Wed09/30/18 at 1534, Nausea/Emesis, Routine, PACU documented in this encounter
--- OUTSIDE RECORDS SUMMARY | 2024-08-19 06:43 | XMS_ITS | Encounter Summary ---
Author Organization [facility] Address [address] [place] [address] Care Team Providers Care Accounting Bookkeeper Name Role Phone Unavailable Primary Care Provider Unavailabl e Encounter Details Date Type Department Care Team (Late st Contact Info) Description 09/29/2018 Orders Only [facility] - [facility] [address] [facility] [address] [place] [address] [place] [address] [place] [id number] Post-op pain (Primary Dx) Social History Tobacco Use Types [...] as of this encounter Visit Diagnoses Diagnosis Post-op pain- Primary Other acute postoperative pain documented in this encounter
--- OUTSIDE RECORDS SUMMARY | 2024-08-19 06:43 | XMS_ITS | Encounter Summary ---
Author Organization [facility] Address [address] [place] [address] Care Team Providers Care Tree Wrapper Name Role Phone Unavailable Primary Care Provider Unavailabl e Reason for Visit * Auth/Cert Specialty Diagnoses / Procedures Referred By Contac t Referred To Contact General Surgery Diagnoses Right shoulder rotator cuff tear Procedures TX SHLDR ARTHROSCOP,SURG,W/ROTAT CUFF REPR TX SHOULDER SCOPE BONE SHAVING TX SHLDR ARTHROSCOP,EXTEN DEBRIDE TX REPAIR ROTATOR CUFF,CHRONIC RIGHT SHOULDER SCOPE W ROTATOR CUFF REPAIR, SUBACROMIAL DECOMPRESSION, W EXTENSIVE DERIDEMENT [facility] [address] [place] [address] Referral ID Status Reason Start Date Expiration Date Visits Re quested Visits Authorized [id number] 1 1 Encounter Details Date Type Department Care Team (Late st Contact Info) Description 09/30/2018 9:30 AM SOAPING MACHINE BACK TENDER - 09/30/2018 11:27 AM SOAPING MACHINE BACK TENDER Surgery [facility] [place] [place] [address] [place] [address] [place] [address] RIGHT SHOULDER SCOPE W ROTATOR CUFF REPAIR, SUBACROMIAL DECOMPRESSION, W EXTENSIVE DEBRIDEMENT Surgery Details Date/Time Status Location OR Service Patient Class Case Class Case Type Trauma Case? 09/30/2018 9:30 AM Posted STLO CC OR CC OR 01 Orthopedics Surgical OP/Extended Care Elective No Panel 1 Procedure LRB Anes Op Region Wound Class Comments RIGHT SHOULDER SCOPE W ROTATOR CUFF REPAIR, SUBACROMIAL DECOMPRESSION, W EXTENSIVE DEBRIDEMENT Right General Shoulder Clean-I EQUIP: BEach Chair position, Arthrex SpeedBridge, Polarcare, Breg SLingshot brace ARTHREX NOTIFIED AW 09/21 Surgeon Surgeon Role Service Panel Nehemiah Castellano MD Primary Orthopedics 1 documented in this encounter Social History [...] Sign Reading Time Taken Comments Blood Pressure 112/69 09/30/2018 9:10 AM SOAPING MACHINE BACK TENDER Pulse 68 09/30/2018 9:10 AM SOAPING MACHINE BACK TENDER Temperature 36.4 ??C (97.6 ??F) 09/30/2018 8:28 AM CS T Respiratory Rate 14 09/30/2018 9:10 AM SOAPING MACHINE BACK TENDER Oxygen Saturation 95% 09/30/2018 9:10 AM SOAPING MACHINE BACK TENDER Inhaled Oxygen Concentration - - Weight 91.6 kg (202 lb) 09/30/2018 8:28 AM SOAPING MACHINE BACK TENDER Height 180.3 cm (5' 11 ) 09/30/2018 8:28 AM SOAPING MACHINE BACK TENDER Body Mass Index 28.17 09/30/2018 8:28 AM SOAPING MACHINE BACK TENDER documented in this encounter Discharge Instructions * Discharge Instructions* Jennifer Patel, ANP - 09/30/2018 11:41 AM SOAPING MACHINE BACK TENDER SHOULDER SURGERY DISCHARGE INSTRUCTIONS Nehemiah Castellano MD [facility] Patient: Brendon Aldana : 1950 Date: 09/30/2018 [...] please call your pharmacy. Narcotic Medication (usually [place] or Percocet): Begin taking the narcotic medication [...] front of you. Gently swing your arm [id number] and front to back. Elbow/wrist/hand motion - [...] problems, please contact the office at . ING MACHINE BACK TENDER documented in this encounter Medications at Time [...] 5 06/24/2018 01/19/2019 fluticasone (FLONASE) 50 mcg/spray [place], Suspension Administer 2 Sprays in each nostril daily. 48 Gram 3 12/06/2017 12/12/2018 documented as of this encounter H&P Notes * Jennifer Patel ANP - 09/30/2018 8:19 AM CST HISTORY AND PHYSICAL 09/30/2018 PATIENT NAME: Brendon Aldana : 1950 AGE: 68 y.o. CSN: [id number] ORTHOPEDIC PHYSICIAN: Nehemiah Castellano MD PCP: Ciro [...] ?? Patient is employed and works for [employer] in [place]. 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 PAST MEDICAL HISTORY: Past Medical History: Diagnosis Date ??? Community acquired pneumonia ??? Contact dermatitis and other eczema, due to unspecified cause ??? Essential hypertension ??? [place] (hard of hearing) ??? Motion sickness PAST SURGICAL HISTORY: Past Surgical History: Procedure Laterality Date ??? HX HEART CATHETERIZATION 1992 ??? 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 HX VASECTOMY 1980 ??? TX COLONOSCOPY FLX DX W/COLLJ SPEC WHEN PFRMD 01/12/2014 COLONOSCOPY performed by Modesta Wise DO at [facility] SOCIAL HISTORY: Social History Social History ??? Marital status: Spouse name: N/A ??? Number of children: N/A ??? Years of education: N/A Occupational History ??? [employer] Social History Main Topics ??? Smoking status: [...] Tablet 5 ??? fluticasone (FLONASE) 50 mcg/spray [place], Suspension Administer 2 Sprays in each nostril [...] nontender NEURO: Neurovascularly intact EXTREMITIES: Musculoskeletal: 68-year-old, [id number], white male who presents in no acutedistress. [...] SUBACROMIAL DECOMPRESSION, W EXTENSIVE DERIDEMENT ALICIA Herrera ING MACHINE BACK TENDER Associated attestation - Nehemiah Castellano MD - 09/30/2018 8:56 AM SOAPING MACHINE BACK TENDER I have reviewed the last H&P and examined the patient today and there are no changes. documented in this encounter OR Notes * Operative Report - Nehemiah Castellano MD - 09/30/2018 11:15 AM CST Operative Report : [facility] Patient: Brendon Aldana / 68 y.o. / male : 1950 Date: 09/30/2018 CSN: [id number] Preoperative Diagnosis: Right shoulder rotator cuff tear Postoperative Diagnosis: Same with impingement Procedure Performed: Right shoulder arthroscopic rotator cuff repair, right shoulder arthroscopic subacromial decompression Surgeon: Nehemiah Castellano MD Icing Machine Operator: Jennifer Patel RN ANP Surgical Staff: Drapery Supervisor: Katarina Alejandro RN; Barrie Reilly RN Scrub: Yessi Gallegos Court Bailiff Private: Jennifer Patel ANP Anesthesia: General with [...] the procedure well without apparent complications. My players assistant, Jennifer Patel, was present throughout the case and was critical for assistance with this challenging shoulder. Implants: Implant Name Type Inv. Item Serial No. Clinical Haematologist Lot No. LRB No. Used Action ANCHOR SPEEDBRIDGE W/ BIOCMPST SWIVELCK [id number] - [id number] [place] ANCHOR SPEEDBRIDGE W/ BIOCMPST SWIVELCK [id number] [employer] [id number] Right 1 Implanted Nehemiah Castellano MD ING MACHINE BACK TENDER documented in this encounter Plan of Treatment Not on file documented as of this encounter Procedures Procedure Name Priority Date/Time Associated Diagnosis Comments US GUIDE NEEDLE PLACEMENT Routine 09/30/2018 9:43 AM SOAPING MACHINE BACK TENDER Acute post-operative pain SHOULDER ARTHROSCOPY 09/30/2018 8:59 AM SOAPING MACHINE BACK TENDER Right shoulder rotator cuff tear documented in this encounter Results * US GUIDE NEEDLE PLACEMENT (09/30/2018 9:43 AM SOAPING MACHINE BACK TENDER) Narrative 09/30/2018 9:43 AM SOAPING MACHINE BACK TENDER Order information only. ??Exam was auto-finalized. ?? Andres Tsang Jr., MD US ORDERABLES documented in this encounter Visit Diagnoses Not [...] chloride 0.9 % irrigation 3,000 mL irrigation INTRA-PROCEDURE PRN, Starting on Wed09/30/18 at 0953, Until Wed09/30/18 at 1133, Anesthesia Intra-op Given 09/30/2018 9:53 AM SOAPING MACHINE BACK TENDER 6,000 mL Operative Site fentaNYL PF (SUBLIMAZE) 50 mcg/mL injection 25 mcg 25 mcg, IV, POST-PROCEDURE Q 3 MINUTES PRN, Starting on Wed09/30/18 at 0949, Until Wed09/30/18 at 1534, Pain, Moderate, For pain scale 4-6, Routine, PACU lactated ringers infusion IV, at 150 mL/hr, PRE-PROCEDURE CONTINUOUS, Starting on Wed09/30/18 at 0815, Until Wed09/30/18 at 1534, Routine, Pre-op New Bag 09/30/2018 9:54 AM SOAPING MACHINE BACK TENDER New Bag 09/30/2018 8:52 AM SOAPING MACHINE BACK TENDER 150 mL/hr lactated ringers infusion IV, at 125 mL/hr, POST-PROCEDURE CONTINUOUS, Starting on Wed09/30/18 at 1000, Until Wed09/30/18 at 1534, Routine, PACU lidocaine PF 2 % (XYLOCAINE MPF) injection 0.3 mL 0.3 mL, Infiltration, PRE-PROCEDURE ONCE, Starting on Wed09/30/18 at 0814, Until Wed09/30/18 at 1534, Routine, Pre-op Given 09/30/2018 8:52 AM SOAPING MACHINE BACK TENDER 0.3 mL ondansetron (ZOFRAN) 4 mg/2 mL injection 4 mg 4 mg, IV, POST-PROCEDURE ONCE PRN, 1 dose, Starting on Wed09/30/18 at 0949, Until Wed09/30/18 at 1534, Nausea/Emesis, Routine, PACU documented in this encounter Active and Recently Administered Medications Times are shown in SOAPING MACHINE BACK TENDER. Scheduled Medication Order 09/28/2018 09/29/2018 09/30/2018 ceFAZolin in sterile water (ANCEF) 2 gram/20 mL IV Syringe (PREMIX) 2,000 mg (COMPLETED) 2,000 mg, IV, PRE-PROCEDURE ONCE, 1 dose, Starting on Wed09/30/18 at 0814, Until Wed09/30/18 at 0931, Routine, Pre-op, Antibiotic Indication: Surgical prophylaxis 0926 (Given - Provid er: SONU Olsen)0931 (Stopped [...] Provider: SONU Olsen)1303 (Stopped - Provider: Alona Roberts, RN) lactated ringers infusion IV, at 125 [...]
--- OUTSIDE RECORDS SUMMARY | 2024-08-19 06:43 | XMS_ITS | Encounter Summary ---
Author Organization [facility] Address [address] [place] [address] Care Team Providers Care Slurry Blender Name Role Phone Unavailable Primary Care Provider Unavailabl e Reason for Visit * Reason Onset Date Comments Medication Refill 04/14/2018 Encounter Details Date Type Department Care Team (Late st Contact Info) Description 04/15/2018 Refill [facility] Family Medicine - [address] [place] [address] Ciro Fernandez, DO 107 [facility] [address] [place] [address] Social History Tobacco Use Types [...]
--- OUTSIDE RECORDS SUMMARY | 2024-08-19 06:43 | XMS_ITS | Encounter Summary ---
Author Organization [facility] Address [address] [place] [address] Care Team Providers Care Nurse Educator Name Role Phone Unavailable Primary Care Provider Unavailabl e Reason for Visit * Reason Onset Date Comments Medication Refill 01/19/2019 Encounter Details Date Type Department Care Team (Late st Contact Info) Description 01/19/2019 Refill [facility] Family Medicine - [address] [place] [address] Ciro Fernandez, DO 107 [facility] [address] [place] [address] Social History Tobacco Use [...]
--- OUTSIDE RECORDS SUMMARY | 2024-08-19 06:43 | XMS_ITS | Encounter Summary ---
Author Organization [facility] Address [address] [place] [address] Care Team Providers Care Case Packer And Sealer Name Role Phone Unavailable Primary Care Provider Unavailabl e Encounter Details Date Type Department Care Team (Latest Contact Info) Description 04/26/2019 1:15 AM CDT - 04/26/2019 11:59 PM CDT Hospital Encounter [facility] [address] [place] [address] Ciro Fernandez, DO 107 [facility] [address] [place] [address] Discharge Disposition: Home or Self Care Social [...] UBIDECARENONE (CO Q-10 ORAL) Take by mouth. fluticasone propionate (FLONASE) 50 mcg/spray [place], Suspension nasal inhaler Administer 2 Sprays in [...] by mouth daily. 180 Capsule 03/13/2019 10/10/2021 cetirizine-pseudoephedrine sr 12 hour (ZyrTEC-D) 5-120 mg tablet TAKE ONE TABLET BY MOUTH TWO TIMES DAILY. 72 Tablet 5 01/20/2019 07/25/2019 documented as of this encounter Plan of Treatment Not on file documented as of this encounter Procedures Procedure Name Priority Date/Time Associated Diagnosis Comments OCCULT BLOOD IMMUNOASSAY, COLORECTAL SCREEN Routine 04/26/2019 9:19 PM CDT Screening for colon cancer documented in this encounter Results * (ABNORMAL) OCCULT BLOOD IMMUNOASSAY, COLORECTAL SCREEN (04/26/2019 9:19 PM CDT) OCCULT BLOOD, STOOL Positive(A ) Negative 04/27/2019 11:28 PM CDT [facility] [employer] [facility] Stool STOOL SPECIMEN / Unknown Collection / Unknown 04/26/2019 9:19 PM CDT 04/27/2019 9:19 PM CDT Ciro Fernandez DO BODY FLUIDS AND ODALYSO RADHA [facility] [employer] [facility] CLIA# [id number] [address] [place] [address] documented in this encounter Visit Diagnoses Diagnosis Screening for colon cancer Special screening for malignant neoplasms, colon documented in this encounter
--- OUTSIDE RECORDS SUMMARY | 2024-08-19 06:43 | XMS_ITS | Encounter Summary ---
Author Organization [facility] Address [address] [place] [address] Care Team Providers Care Vibratory Pile Driver Name Role Phone Unavailable Primary Care Provider Unavailabl e Reason for Visit * Reason Comments Hypertension chol,follow up labs Encounter Details Date Type Department Care Team (Late st Contact Info) Description 10/14/2017 1:45 PM MARKETING AUTOMATION SPECIALIST Office Visit [facility] Medicine - [address] [facility] [address] [place] [address] Ciro Fernandez, DO 107 [facility] [address] [place] [address] Essential hypertension, benign (Primary Dx); Pure hypercholesterolemia; Gastroesophageal reflux disease without esophagitis; Screening for prostate cancer; Need for pneumococcal vaccination Social History Tobacco Use Types Packs/Day [...] Sign Reading Time Taken Comments Blood Pressure 122/68 10/14/2017 12:51 PM MARKETING AUTOMATION SPECIALIST Pulse - - Temperature 36.7 ??C (98 ??F) 10/14/2017 12:51 PM MARKETING AUTOMATION SPECIALIST Respiratory Rate - - Oxygen Saturation - - Inhaled Oxygen Concentration - - Weight 95.3 kg (210 lb) 10/14/2017 12:51 PM MARKETING AUTOMATION SPECIALIST Height 180.3 cm (5' 11 ) 10/14/2017 12:51 PM MARKETING AUTOMATION SPECIALIST Body Mass Index 29.29 10/14/2017 12:51 PM MARKETING AUTOMATION SPECIALIST documented in this encounter Progress Notes * Ciro Fernandez, DO - 10/14/2017 2:58 PM CST SUBJECTIVE: Brendon Aldana is a 67 y.o. male here to discuss medical issues including hypertension. Current medication(s) reviewed. Taking and tolerating medications [...] ASA, NSAID's, caffeine, peppermints, alcohol and tobacco. Past Medical/Surgical/Social/Family History reviewed as well as [...] or unusual skin lesions noted OBJECTIVE: BP 122/68 Temp 98 ??F (36.7 ??C) (Temporal) Ht 5' 11 (1.803 m) [...] regions. Thyroid not enlarged, no nodules detected. RED enlarged nasal turbinates with clear, yellow and wooten rhinorrhea. CV: heart sounds: normal rate, regular rhythm, normal S1, S2, no murmurs, rubs, clicks. No carotid bruits Chest:Chest is clear, no wheezing or rales. Normal symmetric air entry throughout both lung dsouza.No chest wall deformities or tenderness. Abdomen: Abdomen is soft without tenderness, distention, guarding, mass, rebound or organomegaly. Bowel sounds are normal. Extremities: Peripheral pulses normal, no pedal edema Neuro: Normal deep tendon reflexes. Psych: Appropriate Brendon was seen today for hypertension. Diagnoses and associated orders for this visit: Essential hypertension, benign - LIPID PANEL; Future - COMPREHENSIVE METABOLIC PANEL; Future - PROTEIN , RANDOM URINE; Future Continue with losartan Pure hypercholesterolemia - LIPID PANEL; Future - COMPREHENSIVE METABOLIC PANEL; Future Zocor CoQ10 Gastroesophageal reflux disease without esophagitis - raNITIdine (ZANTAC) 150 mg Capsule; Take 1 Capsule (150 mg) by mouth 2 times daily. Stop PPI Screening for prostate cancer - PSA; Future Need for pneumococcal vaccination - PNEUMOCOCCAL 13-VALENT CONJUGATE VACCINE Check BP on a regular basis and report highs and lows. Discussed Risks, Benefits and Alternatives of the current treatment regimen. F/u in 6 months ETING AUTOMATION SPECIALIST documented in this encounter Plan of Treatment Not on file documented as of this encounter Procedures Procedure Name Priority Date/Time Associated Diagnosis Comments PSA Routine 04/16/2018 2:25 AM CDT Screening for prostate cancer LIPID PANEL Routine 04/16/2018 2:25 AM CDT Essential hypertension, benign Pure hypercholesterolemia COMPREHENSIVE METABOLIC PANEL Routine 04/16/2018 2:25 AM CDT Essential hypertension, benign Pure hypercholesterolemia documented in this encounter Results * PSA (04/16/2018 2:25 AM CDT) PSA 0.3 < OR = 4.0 ng/mL [employer] [facility] Comment: The total PSA value from this assay system is standardized against the WHO standard. The test result will be approximately 20% lower when compared to the equimolar-standardized total PSA (Lulu Clarissa). Comparison of serial PSA results should be interpreted with this fact in mind. This test was performed using the Siemens chemiluminescent method. Values obtained from different assay methods cannot be used interchangeably. PSA levels, regardless of value, should not be interpreted as absolute evidence of the presence or absence of disease. FASTING:YES FASTING: YES Test Performed at: [facility] [address] [place], [place] ??[phone] Agus Valente D.O., MPH Blood 04/16/2018 2:25 AM CDT Ciro Fernandez DO CHEMISTRY ORDERABLES [facility] [employer] [facility] [address] [place] [address] * (ABNORMAL) COMPREHENSIVE METABOLIC PANEL (04/16/2018 2:25 AM CDT) GLUCOSE 104(H) 65 - 99 mg/dL [facility] Comment: ? Fasting reference interval For someone without known diabetes, a glucose value between 100 and 125 mg/dL is consistent with prediabetes and should be confirmed with a follow-up test. BUN 17 7 - 25 mg/dL [employer] [facility] CREATININE 0.86 0.70 - 1.25 mg/dL [employer] [facility] Comment: For patients >49 years of age, the reference limit for Creatinine is approximately 13% higher for people identified as -Slovak. GFR 90 > OR = 60 mL/min/1 .73m2 [employer] [facility] GFR, 105 > OR = 60 mL/min/1 .73m2 [employer] [facility] BUN/CREAT RATIO NOT APPLICABLE 6 - 22 (calc) [employer] [facility] SODIUM 142 135 - 146 mmol/L [employer] [facility] POTASSIUM 4.7 3.5 - 5.3 mmol/L [employer] . [place] CHLORIDE 108 98 - 110 mmol/L [facility] . [place] CO2 24 20 - 32 mmol/L [facility] . [place] CALCIUM 9.5 8.6 - 10.3 mg/dL [facility] . [place] TOTAL PROTEIN 6.9 6.1 - 8.1 g/dL [facility]. [place] ALBUMIN 4.1 3.6 - 5.1 g/dL [facility]. [place] GLOBULIN 2.8 1.9 - 3.7 g/dL (calc) [facility]. [facility] ALBUMIN/GLOBULIN RATIO 1.5 1.0 - 2.5 (calc) [facility] . [place] BILIRUBIN TOTAL 0.6 0.2 - 1.2 mg/dL [facility]. [place] ALKALINE PHOSPHATASE 63 40 - 115 U/L [facility]. [place] AST 24 10 - 35 U/L [facility]. [facility] ALT 34 9 - 46 U/L [facility] Comment: Test Performed at: [facility] [id number] [place] [address] ??[phone] Agus Valente D.O., MPH Blood 04/16/2018 2:25 AM CDT Ciro Fernandez DO CHEMISTRY ORDERABLES [facility] [address] [place] [address] * LIPID PANEL (04/16/2018 2:25 AM CDT) CHOLESTEROL 131 <200 mg/dL [facility]. [facility] HDL 44 >40 mg/dL [facility]. [facility] TRIGLYCERIDE 112 <150 mg/dL [facility]. [facility] LDL CALCULATED 67 mg/dL (calc) [facility] Comment: Reference range: <100 Desirable range <100 mg/dL for primary prevention; ?? <70 mg/dL for patients with CHD or diabetic patients with > or = 2 CHD risk factors. LDL-C is now calculated using the Steve calculation, which is a validated novel method providing better accuracy than the Friedewald equation in the estimation of LDL-C. Michele ELLIS et al. JACIEL. 2013;310(19): 4926-9693 (http://education.Sien/faq/YNT385) CHOL/HDL RATIO 3.0 <5.0 (calc) [employer] [facility] TOTAL NON-HDL CHOL(LDL+VLDL) 87 <130 mg/dL (calc) [employer] [facility] Comment: For patients with diabetes plus 1 major ASCVD risk factor, treating to a non-HDL-C goal of <100 mg/dL (LDL-C of <70 mg/dL) is considered a therapeutic option. Test Performed at: [facility] [address] [place], [place] ??[phone] Agus Valente D.O., MPH Blood 04/16/2018 2:25 AM CDT Ciro Fernandez DO CHEMISTRY ORDERABLES [employer] [facility] [address] [place] [address] documented in this encounter Visit Diagnoses Diagnosis Essential hypertension, benign- Primary Pure hypercholesterolemia Gastroesophageal reflux disease without esophagitis Esophageal reflux Screening for prostate cancer Special screening for malignant neoplasm of prostate Need for pneumococcal vaccination Need for prophylactic vaccination against streptococcus pneumoniae (pneumococcus) documented in this encounter
--- OUTSIDE RECORDS SUMMARY | 2024-08-19 06:43 | XMS_ITS | Encounter Summary ---
Author Organization [facility] Address [address] [place] [address] Care Team Providers Care Dub Room Engineer Name Role Phone Unavailable Primary Care Provider Unavailabl e Reason for Visit * Reason Onset Date Comments Medication Refill 09/09/2017 Encounter Details Date Type Department Care Team (Late st Contact Info) Description 09/09/2017 Refill [facility] Family Medicine - [address] [place] [address] Ciro Fernandez, DO 107 [facility] [address] [place] [address] Social History Tobacco Use Types [...]
--- OUTSIDE RECORDS SUMMARY | 2024-08-19 06:43 | XMS_ITS | Encounter Summary ---
Author Organization [facility] Address [address] [place] [address] Care Team Providers Care Vascular Ultrasound Technician Name Role Phone Unavailable Primary Care Provider Unavailabl e Reason for Visit * Reason Onset Date Comments Medication Refill 02/01/2018 Encounter Details Date Type Department Care Team (Late st Contact Info) Description 02/01/2018 Refill [facility] Family Medicine - [address] [place] [address] Ciro Fernandez, DO 107 [facility] [address] [place] [address] Social History Tobacco Use Types [...]
--- OUTSIDE RECORDS SUMMARY | 2024-08-19 06:43 | XMS_ITS | Encounter Summary ---
Author Organization [facility] Address [address] [place] [address] Care Team Providers Care Yard Supervisor Name Role Phone Unavailable Primary Care Provider Unavailabl e Reason for Visit * Reason Onset Date Comments Medication Refill 11/09/2017 Encounter Details Date Type Department Care Team (Late st Contact Info) Description 11/09/2017 Refill [facility] Medicine - [address] [facility] [address] [place] [address] Ciro Fernandez, DO [address] [facility] [address] [place] [address] Acute bronchitis, unspecified organism; Acute frontal sinusitis, recurrence not specified Social History Tobacco Use Types [...] of this encounter Visit Diagnoses Diagnosis Acute bronchitis, unspecified organism Acute frontal sinusitis, recurrence not specified documented in this encounter
--- OUTSIDE RECORDS SUMMARY | 2024-08-19 06:43 | XMS_ITS | Encounter Summary ---
Author Organization [facility] Address [address] [place] [address] Care Team Providers Care Electric Train Driver Name Role Phone Unavailable Primary Care Provider Unavailabl e Reason for Visit * Reason Onset Date Comments Medication Refill 06/24/2018 Encounter Details Date Type Department Care Team (Late st Contact Info) Description 06/24/2018 Refill [facility] Family Medicine - [facility] Abundio Yuan [address] [place] [address] Ciro Fernandez DO [address] [place] [address] Social History Tobacco Use Types [...] Notes * Telephone Encounter - Kay Jesus N - 06/24/2018 10:49 AM CSTFrom: Brendon Aldana Sent: 06/24/2018 9:14 AM ACADEMIC AFFAIRS COORDINATOR Subject: Medication Renewal Request Brendon Aldana would like a refill of the following medications: cetirizine-pseudoephedrine sr 12 hour (ZyrTEC-D) 5-120 mg tablet [Ciro Fernandez DO] Patient Comment: [facility] fill this has closed. Please send a new rx to [facility] at [address] [facility] in [place], [place]. Preferred pharmacy: [facility] [address] [place] [address] Delivery method: Pickup EMIC AFFAIRS COORDINATOR documented in this encounter Plan of Treatment Not on file documented as of this encounter Visit Diagnoses Not on filedocumented in this encounter
--- OUTSIDE RECORDS SUMMARY | 2024-08-19 06:43 | XMS_ITS | Encounter Summary ---
Author Organization [facility] Address [address] [place] [address] Care Team Providers Care Ironworker Apprentice Shop Name Role Phone Unavailable Primary Care Provider Unavailabl e Reason for Visit * Auth/Cert Specialty Diagnoses / Procedures Referred By Contac t Referred To Contact Multi Specialty Diagnoses Fecal occult blood test positive Procedures COLONOSCOPY [facility] [address] [place] [address] Referral ID Status Reason Start Date Expiration Date Visits Re quested Visits Authorized [id number] 1 1 Encounter Details Date Type Department Care Team (Late st Contact Info) Description 09/01/2019 8:20 AM CARE SPECIALIST - 09/01/2019 9:00 AM CARE SPECIALIST [facility] [address] [place] [address] Modesta Wise DO [address] [address] COLONOSCOPY Surgery Details Date/Time Status Location OR Service Patient Class Case Class Case Type Trauma Case? 09/01/2019 8:20 AM Posted [facility] GI 01 Gastroenterology Outpatient Elective No Panel 1 Procedure LRB Anes Op Region Wound Class Comments COLONOSCOPY N/A General Anus TABATHA FERNANDEZ Surgeon Surgeon Role Service Panel Modesta Wise DO Primary Gastroenterology 1 documented in this [...] Sign Reading Time Taken Comments Blood Pressure 128/74 09/01/2019 7:36 AM CARE SPECIALIST Pulse 67 09/01/2019 7:36 AM CARE SPECIALIST Temperature 36.4 ??C (97.5 ??F) 09/01/2019 7:36 AM CS T Respiratory Rate 18 09/01/2019 7:36 AM CARE SPECIALIST Oxygen Saturation 96% 09/01/2019 7:36 AM CARE SPECIALIST Inhaled Oxygen Concentration - - Weight 91 kg (200 lb 9.6 oz) 09/01/2019 7:32 AM CARE SPECIALIST Height 180.3 cm (5' 11 ) 09/01/2019 7:32 AM CARE SPECIALIST Body Mass Index 27.98 09/01/2019 7:32 AM CARE SPECIALIST documented in this encounter Discharge Instructions * Discharge Instructions* Courtney Gibson RN - 09/01/2019 9:12 AM CARE SPECIALIST If you should experience: Severe abdominal pain, [...] call the physician who prescribed the medication. SPECIALIST documented in this encounter Medications at Time [...] 07/25/2019 02/19/2020 fluticasone propionate (FLONASE) 50 mcg/spray [place], Suspension nasal inhaler Administer 2 Sprays in [...] to unspecified cause ??? Essential hypertension ??? [place] (hard [place] hearing) ??? Motion sickness Past Surgical History: Procedure Laterality Date ??? HX HEART CATHETERIZATION 1992 ??? 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 HX VASECTOMY 1980 ??? AR COLONOSCOPY FLX DX W/COLLJ SPEC WHEN PFRMD 01/12/2014 COLONOSCOPY performed by Modesta Wise DO at [facility] GI LAB ??? AR SHLDR ARTHROSCOP,SURG,W/ROTAT CUFF REPR Right 09/30/2018 RIGHT SHOULDER SCOPE W ROTATOR CUFF REPAIR, SUBACROMIAL DECOMPRESSION, W EXTENSIVE DEBRIDEMENT performed by Nehemiah Castellano MD at [facility] CC OR Medications Prior to Admission Medication [...] time ??? fluticasone propionate (FLONASE) 50 mcg/spray [place], Suspension nasal inhaler Administer 2 Sprays in [...] mentioned procedure(s) as scheduled. Modesta Wise DO SPECIALIST documented in this encounter Procedure Notes * Modesta Wise DO - 09/01/2019 9:11 AM CSTAssociated Order(s): COLONOSCOPY REPORT [facility] Endoscopy Patient Name: Brendon Aldana Procedure Date: 09/01/2019 Date of : 1950 Admit Type: Outpatient Attending MD: Modesta Wise MD Procedure: Colonoscopy Indications: High risk colon cancer surveillance: Personal history of non-advanced adenoma, Last colonoscopy: January 2014 Providers: Modesta Wise MD Referring MD: Tabatha Fernandez DO Medicines: Monitored Anesthesia Care Complications: [...] of Addenda: [address]; [place] [address] SPECIALIST * Brittney Murdock RN - 08/24/2019 10:01 AM CST [facility] GI Nurse Assessment Patient: Brendon Aldana : 1950 Endoscopist: Surgeon(s): Modesta Wise DO Upcoming Procedure: Procedure to be Performed: Procedure(s): COLONOSCOPY Procedure Date/Time: 09/01/2019 at 0820 Diagnosis/Indication for procedure: Pre-Op Diagnosis Codes: * Fecal occult blood test positive [R19.5] Location: [facility] GI LAB Referring Physician: Tabatha Fernandez Patient's BMI: Body mass index is 28.45 kg/m??. Is patient a candidate for offsite location? yes Medications Type of prep given: CSP Anticoagulants: no Relevant prior procedure/pathology: Procedure: COLON Physician: MR Date: 01/12/14 Location: Last Pathology: DIAGNOSIS ? LARGE INTESTINE, TRANSVERSE, COLONOSCOPIC BIOPSY: ? - TUBULAR ADENOMA (TWO PIECES). Past Surgical History: Past Surgical History: Procedure Laterality Date ??? HX HEART CATHETERIZATION 1992 ??? 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 HX VASECTOMY 1980 ??? AR COLONOSCOPY FLX DX W/COLLJ SPEC WHEN PFRMD 01/12/2014 COLONOSCOPY performed by Modesta Wise DO at [facility] GI LAB ??? AR SHLDR ARTHROSCOP,SURG,W/ROTAT CUFF REPR Right 09/30/2018 RIGHT SHOULDER SCOPE W ROTATOR CUFF REPAIR, SUBACROMIAL DECOMPRESSION, W EXTENSIVE DEBRIDEMENT performed by Nehemiah Castellano MD at [facility] CC OR Brittney Murdock RN SPECIALIST documented in this encounter OR Notes * Angie-OP - Brittney Murdock RN - 08/24/2019 10:00 AM CST Routine Pre-Anesthesia Protocol for GI Lab Procedures ??[facility] Approved by: [facility] - Medical Executive Committee Approval Date: 10/31/2018 ORDERS ARE ENTERED ???PER PROTOCOL?? Enter the protocol in the patient???s electronic health record using MeeVeerase: .anestprotocolgilab NURSING ORDERS: Monitoring: o Obtain and [...] appropriate, may confirm POC with: Nursing Only [id number] (this lab can be obtained at no [...] injectable antihyperglycemic agents and glucose is less [id number] mg/dl o NPO patients who have NOT [...] MEDICATION ORDERS - entered by the Pharmacist alteration tailor apprentice RESCUE ORDERS - entered by the Pharmacist or the emergency medicine medical director Orders Patient has IV access and UNCONCIOUS, [...] cup 2% milk and 6 saltine crackers. SPECIALIST documented in this encounter Miscellaneous Notes * Result Encounter Note - Modesta Wise DO - 09/05/2019 12:19 PM CARE SPECIALIST Recommend surveillance colonoscopy in 3 years. SPECIALIST documented in this encounter Plan of Treatment Not on file documented as of this encounter Procedures Procedure Name Priority Date/Time Associated Diagnosis Comments COLONOSCOPY REPORT 09/01/2019 9: 12 AM CARE SPECIALIST PATHOLOGY Pathology 09/01/2019 8:53 AM CARE SPECIALIST Fecal occult blood test positive COLONOSCOPY 09/01/2019 8:23 AM CARE SPECIALIST Fecal occult blood test positive documented in this encounter Results * COLONOSCOPY REPORT (09/01/2019 9:12 AM CARE SPECIALIST) Narrative Procedure Note Modesta Wise DO - 09/01/2019 9:11 AM CST [facility] Endoscopy Patient Name: Brendon Aldana Procedure Date: 09/01/2019 Date of : 1950 Admit Type: Outpatient Attending MD: Modesta Wise MD Procedure: Colonoscopy Indications: High risk colon cancer surveillance: Personal history of non-advanced adenoma, Last colonoscopy: January 2014 Providers: Modesta Wise MD Referring MD: Tabatha Fernandez DO Medicines: Monitored Anesthesia Care Complications: [...] of Addenda: [address]; [place] [address] Modesta Wise DO GI PROCEDURE ORDERA BLES * PATHOLOGY (09/01/2019 8:53 AM CARE SPECIALIST) CASE REPORT Surgical Pathology Report ? Case: [id number] ? Authorizing Provider: ??Modesta Wise, DO ? Collected: ? 09/01/2019 08:53 AM ? Ordering Location: ? [facility] GI Lab Daron Youssef ??Received: ?09/01/2019 11:58 AM ? Pathologist: ? Kevin Romero, DO ? Specimen: ?Hepatic flexure, polyps ? 09/04/2019 10:21 AM [facility] FINAL DIAGNOSIS Large bowel, hepatic flexure polyps, polypectomy: -Tubular adenomas. 09/04/2019 10:21 AM [facility] IMEN DESCRIPTION Hepatic flexure polyps. 09/04/2019 10:21 AM [facility] OPERATIVE PROCEDURE Colonoscopy 09/04/2019 10:21 AM [facility] CLINICAL INFORMATION Colon Polyp(s). Adenomatous vs hyperplastic vs other. Fecal occult blood test positive [R19.5] 09/04/2019 10:21 AM [facility] GROSS DESCRIPTION Received in one container labeled Brendon Aldana, hepatic flexure polyps are seven pieces of red-pate tissue ranging from 0.3 to 0.6 cm in greatest dimension. The base of the largest piece is inked blue. It is bisected and submitted in cassette A1. The six smaller pieces are submitted in cassette A2. [place] 09/04/2019 10:21 AM [facility] MICROSCOPIC DESCRIPTION The slides are labeled [id number] and Brendon Aldana. Sections of the hepatic flexure polyps show multiple fragments of tubular adenoma. No high-grade dysplasia or invasive carcinoma is identified. 09/04/2019 10:21 AM [facility] COMMENT Special stain and/or immunohistochemical results are interpreted with controls that demonstrate appropriate staining reactions. Note on use of immunocytochemistry reagents: This test was developed and its performance characteristics determined by [facility], Department of Laboratory Medicine. [...] part or completely in the following laboratories: [facility], CLIA #[id number] [address] [place] [address] [facility], CLIA #[id number] [address] [place] [address] [id number] [place] [address]. 09/04/2019 10:21 AM CARE SPECIALIST [facility] Tissue (Hepatic flexure) Collection / Unknown 09/01/2019 8:53 AM CARE SPECIALIST 09/01/2019 11:58 AM CARE SPECIALIST Comment:Colon Polyp(s). Pj omatous vs hyperplastic vs other. Modesta Wise DO PATHOLOGY/CYTOLOGY ORDERABLES [facility] CLIA# [id number] [address] [place] [address] [place] [address] documented in this encounter Visit Diagnoses Diagnosis Fecal occult blood test positive Nonspecific abnormal finding in stool contents Fecal occult blood test positive Nonspecific abnormal finding in stool contents documented in this encounter Administered Medications Inactive Administered Medications - up to 3 most recent administrations Medication Order MAR Action Action Date Dose Rate Site lactated ringers infusion IV, at 125 mL/hr, PRE-PROCEDURE CONTINUOUS, Starting on Wed09/01/19 at 0745, Until Wed09/01/19 at 1145, Routine, Pre-Procedure Continue from Pre-Op 09/01/2019 8:22 AM CARE SPECIALIST New Bag 09/01/2019 7:43 AM CARE SPECIALIST 125 mL/hr documented in this encounter Active and Recently Administered Medications Times are shown in CARE SPECIALIST. Continuous Medication Order 08/30/2019 08/31/2019 09/01/2019 lactated ringers infusion IV, at 125 mL/hr, PRE-PROCEDURE CONTINUOUS, Starting on Wed09/01/19 at 0745, Until Wed09/01/19 at 1145, Routine, Pre-Procedure 0743 (New Bag - Prov ider: Amarilis Nagel RN)0822 (Continue from Pre-Op - Provider: SONU Mason)0857 (Fluid Volume - Provider: SONU Mason) documented in this encounter
--- OUTSIDE RECORDS SUMMARY | 2024-08-19 06:43 | XMS_ITS | Encounter Summary ---
Author Organization [facility] Address [address] [place] [address] Care Team Providers Care Sports Editor Name Role Phone Unavailable Primary Care Provider Unavailabl e Reason for Visit * Reason Onset Date Comments Medication Refill 12/04/2017 Encounter Details Date Type Department Care Team (Late st Contact Info) Description 12/06/[address] [facility] Family Medicine - [address] Yuan [address] [place] [address] Ciro Fernandez, DO [address] [facility] [address] [place] [address] Social History Tobacco Use Types [...]
--- OUTSIDE RECORDS SUMMARY | 2024-08-19 06:43 | XMS_ITS | Encounter Summary ---
Author Organization [facility] Address [address] [place] [address] Care Team Providers Care Woodwind Instrument Repairer Name Role Phone Unavailable Primary Care Provider Unavailabl e Reason for Visit * Auth/Cert Specialty Diagnoses / Procedures Referred By Georgie t Referred To Contact Radiology [facility] [address] [place] [address] Referral ID Status Reason Start Date Expiration Date Visits Re quested Visits Authorized [id number] 1 1 Encounter Details Date Type Department Care Team (Latest Contact Info) Description 01/02/2020 12:17 PM CDT - 01/02/2020 11:59 PM CDT Hospital Encounter [facility] Imaging Services [address] [place] [address] Ciro Fernandez, DO [address] [facility] [address] [place] [address] Discharge Disposition: Home or Self Care Social [...] UBIDECARENONE (CO Q-10 ORAL) Take by mouth. traMADoL (Ultram) 50 mg tabletIndications:Acute pain of right knee Take 1 Tablet (50 mg) by mouth every 8 hours as needed for Pain, Moderate or Pain, Severe. 20 Tablet 01/02/2020 02/02/2020 simvastatin (ZOCOR) 40 mg tabletIndications:Pure hypercholesterolemia Take 1 Tablet (40 mg) by mouth late in the day. 90 Tablet 2 09/07/2019 05/31/2020 olmesartan (Benicar) 20 mg tabletIndications:Essentia l hypertension, benign Take 1 Tablet (20 mg) by mouth daily. 90 Tablet 2 09/07/2019 05/31/2020 cetirizine-pseudoephedrine sr 12 hour (ZyrTEC-D) 5-120 mg tablet TAKE ONE TABLET BY MOUTH TWICE DAILY 72 Tablet 5 07/25/2019 02/19/2020 fluticasone propionate (FLONASE) 50 mcg/spray [place], Suspension nasal inhaler Administer 2 Sprays in each nostril daily. 48 Gram 3 03/13/2019 05/11/2020 omeprazole (PriLOSEC) 20 mg Capsule, Delayed Release(E.C.)Indications:G astroesophageal reflux disease, esophagitis presence not specified Take 1 Capsule (20 mg) by mouth daily. 180 Capsule 03/13/2019 10/10/2021 documented as of this encounter Plan of Treatment Not on file documented as of this encounter Procedures Procedure Name Priority Date/Time Associated Diagnosis Comments XR KNEE 4+ VW RIGHT Routine 01/02/2020 1 2:37 PM CDT Acute pain of right knee documented in this encounter Results * XR KNEE 4+ VW RIGHT (01/02/2020 12:37 PM CDT) Anatomical Region Laterality Modality Lower Extremity Computed Radiogr aphy 01/02/2020 12:3 7 PM CDT Impressions 01/02/2020 3:58 PM CDT IMPRESSION: 1. Rounded osseous density that could potentially represent an intra-articular osteochondral loose body. Consider follow-up with MRI. 2. Otherwise normal right knee. DICTATION LOCATION: Location [address] [place] [address] Narrative 01/02/2020 3:58 PM CDT XR KNEE 4+ VW RIGHT DATE: 01/02/2020 12:37 PM HISTORY: See Diagnosis. ?? Acute pain of right knee Comparison: None FINDINGS: Alignment is normal. Bone mineralization is normal. There is no fracture or other acute process. The joint spaces are preserved. There are no soft tissue abnormalities. On the lateral view, there is a rounded osseous density measuring 7 mm at the anterior femorotibial joint space. Procedure Note Marino Lan MD - 01/02/2020 XR KNEE 4+ VW RIGHT DATE: 01/02/2020 12:37 PM HISTORY: See Diagnosis. Acute pain of right knee Comparison: None FINDINGS: Alignment is normal. Bone mineralization is normal. There is no fracture or other acute process. The joint spaces are preserved. There are no soft tissue abnormalities. On the lateral view, there is a rounded osseous density measuring 7 mm at the anterior femorotibial joint space. IMPRESSION: 1. Rounded osseous density that could potentially represent an intra-articular osteochondral loose body. Consider follow-up with MRI. 2. Otherwise normal right knee. DICTATION LOCATION: Location - [facility] Ciro Fernandez DO DIAGNOSTIC IMAGING O RDERABLES documented in this encounter Visit Diagnoses Diagnosis Acute pain of right knee documented in this encounter
--- OUTSIDE RECORDS SUMMARY | 2024-08-19 06:43 | XMS_ITS | Encounter Summary ---
Author Organization [facility] Address [address] [place] [address] Care Team Providers Care Feed Preparation Operator Name Role Phone Unavailable Primary Care Provider Unavailabl e Reason for Visit * Reason Onset Date Comments Medication Refill 12/04/2017 Encounter Details Date Type Department Care Team (Late st Contact Info) Description 12/06/2017 Refill [facility] Family Medicine - [facility] Abundio Yuan [address] [facility] [facility] [address] [place] [address] Ciro Fernandez DO [address] [address] [place] [address] Pure hypercholesterolemia Social History Tobacco [...] * Telephone Encounter - Kay Jesus - 12/06/2017 8:05 AM CDTFrom: Brendon Aldana Sent: 12/04/2017 1:34 PM CDT Subject: Medication Renewal Request Brendon Aldana would like a refill of the following medications: simvastatin (ZOCOR) 40 mg tablet [Ciro Fernandez DO] Patient Comment: rx must be written as a 90 day rx and sent to [facility] Preferred pharmacy: [facility] - [address] method: Pickup documented in this encounter Plan of Treatment Not on file documented as of this encounter Visit Diagnoses Diagnosis Pure hypercholesterolemia documented in this encounter
--- OUTSIDE RECORDS SUMMARY | 2024-08-19 06:43 | XMS_ITS | Encounter Summary ---
Author Organization [facility] Address [address] [place] [address] Care Team Providers Care Cribbing Setter Name Role Phone Unavailable Primary Care Provider Unavailabl e Reason for Visit * Reason Comments Hypertension chol,prediabetes, fo llow up labs Encounter Details Date Type Department Care Team (Late st Contact Info) Description 05/12/2018 1:45 PM CDT Office Visit [facility] Medicine - [facility] Lilia Yuan [address] 107 [facility] Lilia YUAN [address] [place] [address] Ciro Fernandez, DO 107 [facility] LILIA YU[address] [place] [address] Essential hypertension, benign (Primary Dx); Pure hypercholesterolemia; Prediabetes; Dependent edema; Need for immunization against influenza Social History Tobacco Use Types Packs/Day Years [...] Sign Reading Time Taken Comments Blood Pressure 112/60 05/12/2018 1:33 PM CDT Pulse 72 05/12/2018 1:33 PM CDT Temperature 36.6 ??C (97.8 ??F) 05/12/2018 1:33 PM CD T Respiratory Rate - - Oxygen Saturation - - Inhaled Oxygen Concentration - - Weight 95.7 kg (211 lb) 05/12/2018 1:33 PM CDT Height 180.3 cm (5' 11 ) 05/12/2018 1:33 PM CDT Body Mass Index 29.43 05/12/2018 1:33 PM CDT documented in this encounter Progress Notes * Ciro Fernandez, DO - 05/12/2018 6:10 PM CDT SUBJECTIVE: Brendon Aldana is a 68 y.o. male here to discuss medical issues including hypertension. States he is not exercising. States too much of his stress and long hours at work. States he has noticed a decrease in his strength with his legs. States he does have a treadmill at home but will notuse it. Thinking about getting a recumbent bike for home. Hypertension: Current medication(s) reviewed. Taking and tolerating [...] or unusual skin lesions noted OBJECTIVE: BP 112/60 Pulse 72 Temp 97.8 ??F (36.6 ??C) (Temporal) Ht [...] , RANDOM URINE; Future Continue with losartan - Add HCTZ Pure hypercholesterolemia - LIPID PANEL; Future - COMPREHENSIVE METABOLIC PANEL; Future Zocor CoQ10 Prediabetes - HEMOGLOBIN A1C; Future - COMPREHENSIVE METABOLIC PANEL Continue with good nutrition including low carbohydrate intake and Increase your aerobic exercise to 30 minutes continuous 5 times per week. Dependent edema - losartan-hydroCHLOROthiazide (HYZAAR) 50-12.5 mg tablet; Take 0.5 Tablets by mouth daily. - COMPREHENSIVE METABOLIC PANEL Elevate the legs above the level of [...] worsen or fail to improve as anticipated. Need for immunization against influenza - INFLUENZA VACCINE HIGH DOSE 65+ YRS IM Check BP on a regular basis and report highs and lows. Discussed Risks, Benefits and Alternatives of the current treatment regimen. F/u in 6 months Fall Risk He has had no falls in the past year. Tobacco Intervention He is not a tobacco user. Blood Pressure BP Readings from Last 3 Encounters: 05/12/18 112/60 03/18/18 104/72 10/14/17 122/68 Normal BMI Range: 18 & older: > or = 18.5 and < 25 Body mass index is 29.43 kg/m??. Abnormal high BMI: Patient counseled on lifestyle modifications including weight loss and daily exercise. CMS Million Hearts Model Follow-up This patient was enrolled in the CMS Million Hearts Model based on a prior ASCVD risk score of >30%. Reassessment of the individual risk modification plan was performed. Shared decision making wasused to address any changes in the risk score, clinical indictors and clinical approach to risk reduction. Current ASCVD risk score: The 10-year ASCVD risk score (Clifford PENELOPE Jr., et al., 2013) is: 10.3% Values used to calculate the score: Age: 68 years Sex: Male Is Non- : No Diabetic: No Tobacco smoker: No Systolic Blood Pressure: 112 mmHg Is BP treated: Yes HDL Cholesterol: 44 mg/dL Total Cholesterol: 131 mg/dL Recommended follow up plan: ?? Statin (moderate to high intensity recommended) continue ?? Blood pressure: controlled continue current treatment regimen ?? Tobacco use: He is not a tobacco user. ?? Aspirin: Continue with ?? Other: None documented in this encounter Plan of Treatment Not on file documented as of this encounter Procedures Procedure Name Priority Date/Time Associated Diagnosis Comments MICROALBUMIN/CREATI NINE RATIO, RANDOM UR Routine 11/01/2018 2:08 AM CDT Essential hypertension, benign CBC WITHOUT DIFFERENTIAL Routine 11/01/2018 2:08 AM CDT Essential hypertension, benign HEMOGLOBIN A1C Routine 11/01/2018 2:08 AM CDT Prediabetes LIPID PANEL Routine 11/01/2018 2:08 AM CDT Essential hypertension, benign Pure hypercholesterolemia COMPREHENSIVE METABOLIC PANEL Routine 11/01/2018 2:08 AM CDT Essential hypertension, benign Pure hypercholesterolemia Prediabetes Dependent edema documented in this encounter Results * CBC WITHOUT DIFFERENTIAL (11/01/2018 2:08 AM CDT) WBC 7.5 3.8 - 10.8 Thousand/u L [facility] RBC 4.93 4.20 - 5.80 Million/uL [facility] HEMOGLOBIN 15.0 13.2 - 17.1 g/dL [facility] HEMATOCRIT 44.1 38.5 - 50.0 % [facility] MCV 89.5 80.0 - 100.0 fL [facility] MCH 30.4 27.0 - 33.0 pg [facility] MCHC 34.0 32.0 - 36.0 g/dL [facility] RDW 12.3 11.0 - 15.0 % [facility] PLATELETS 264 140 - 400 Thousand/u L [facility] MPV 10.1 7.5 - 12.5 fL [facility] Comment: FASTING:YES FASTING: YES Test Performed at: [facility] [address] [place], [place] ??[phone] Agus Valente D.O., MPH Blood 11/01/2018 2:08 AM CDT Ciro Fernandez DO HEMATOLOGY ORDERABLE S [facility] [address] [place] [address] * MICROALBUMIN/CREATININE RATIO, RANDOM UR (11/01/2018 2:08 AM CDT) Creatinine, Urine 129 20 - 320 mg/dL [facility] MICROALBUMIN, URINE 0.4 See Note: mg/dL [facility] Comment: Reference Range: Reference Range Not established MICROALBUMIN/CREAT RATIO, UR 3 <30 mcg/mg creat [facility] Comment: The ADA defines abnormalities in albumin excretion as follows: Category ? Result (mcg/mg creatinine) Normal ?<30 Microalbuminuria ? 30-299 Clinical albuminuria ?? > OR = 300 The ADA recommends that at least two of three specimens collected within a 3-6 month period be abnormal before considering a patient to be within a diagnostic category. Test Performed at: [facility] [id number] [place] [address] ??[phone] Agus Valente D.O., MPH Urine URINE SPECIMEN OBTAINED BY CLEAN CATCH PROCEDURE / Unknown 11/01/2018 2:08 AM CDT Ciro Fernandez DO URINE ORDERABLES Performing Organization Address City/State/[facility] Co de Phone Number [facility] [address] [place] [address] * (ABNORMAL) COMPREHENSIVE METABOLIC PANEL (11/01/2018 2:08 AM CDT) GLUCOSE 111(H) 65 - 99 mg/dL [facility] Comment: ? Fasting reference interval For someone without known diabetes, a glucose value between 100 and 125 mg/dL is consistent with prediabetes and should be confirmed with a follow-up test. BUN 18 7 - 25 mg/dL [facility] CREATININE 0.99 0.70 - 1.25 mg/dL [facility] Comment: For patients >49 years of age, the reference limit for Creatinine is approximately 13% higher for people identified as -[place]. GFR 79 > OR = 60 mL/min/1 .73m2 [facility] GFR, 92 > OR = 60 mL/min/1 .73m2 [facility] BUN/CREAT RATIO NOT APPLICABLE 6 - 22 (calc) [facility] SODIUM 138 135 - 146 mmol/L [facility] . [facility] POTASSIUM 4.6 3.5 - 5.3 mmol/L [facility]NOSTICS . [facility] CHLORIDE 102 98 - 110 mmol/L [facility]NOSTICS . [facility] CO2 28 20 - 32 mmol/L [facility] DIAGNOSTICS . [facility] CALCIUM 9.7 8.6 - 10.3 mg/dL [facility] DI[facility]NOSTICS . [facility] TOTAL PROTEIN 7.0 6.1 - 8.1 g/dL [facility] DIAGNOSTICS . [facility] ALBUMIN 4.1 3.6 - 5.1 g/dL [facility] DIAGNOSTICS . [facility] GLOBULIN 2.9 1.9 - 3.7 g/dL (calc) [facility]AGNOSTICS [facility] ALBUMIN/GLOBULIN RATIO 1.4 1.0 - 2.5 (calc) [facility] BILIRUBIN TOTAL 0.6 0.2 - 1.2 mg/dL [facility] ALKALINE PHOSPHATASE 72 40 - 115 U/L [facility] AST 24 10 - 35 U/L [facility] ALT 33 9 - 46 U/L [facility] Comment: Test Performed at: [facility] ??[phone] Agus Valente D.O., MPH Blood 11/01/2018 2:08 AM CDT Ciro Fernandez DO CHEMISTRY ORDERABLES [facility] [address] [place] [address] * LIPID PANEL (11/01/2018 2:08 AM CDT) CHOLESTEROL 153 <200 mg/dL [facility] HDL 46 >40 mg/dL [facility] . [facility] TRIGLYCERIDE 116 <150 mg/dL [facility] LDL CALCULATED 86 mg/dL (calc) [facility] Comment: Reference range: <100 Desirable range <100 mg/dL for primary prevention; ?? <70 mg/dL for patients with CHD or diabetic patients with > or = 2 CHD risk factors. LDL-C is now calculated using the Steve calculation, which is a validated novel method providing better accuracy than the Friedewald equation in the estimation of LDL-C. Michele SS et al. JACIEL. 2013;310(19): 7188-6478 (http://education.[employer]faq/KVS467) CHOL/HDL RATIO 3.3 <5.0 (calc) [facility] TOTAL NON-HDL CHOL(LDL+VLDL) 107 <130 mg/dL (calc) [facility] Comment: For patients with diabetes plus 1 major ASCVD risk factor, treating to a non-HDL-C goal of <100 mg/dL (LDL-C of <70 mg/dL) is considered a therapeutic option. Test Performed at: [facility] [address] [place] [address] ??[phone] Agus Valente D.O., MPH Blood 11/01/2018 2:08 AM CDT Ciro Fernandez DO CHEMISTRY ORDERABLES [facility] [address] [place] [address] * (ABNORMAL) HEMOGLOBIN A1C (11/01/2018 2:08 AM CDT) HEMOGLOBIN A1C 6.1(H) <5.7 % of total Hgb [facility] Comment: For someone without known [...] of diabetes for children. Test Performed at: [facility] [address] [place], [place] ??[phone] Agus Valente D.O., MPH Blood 11/01/2018 2:08 AM CDT Ciro Fernandez DO CHEMISTRY ORDERABLES [facility] [address] [address] documented in this encounter Visit Diagnoses Diagnosis Essential hypertension, benign- Primary Pure hypercholesterolemia Prediabetes Other abnormal glucose Dependent edema Edema Need for immunization against influenza Need for prophylactic vaccination and inoculation against influenza documented in this encounter
--- OUTSIDE RECORDS SUMMARY | 2024-08-19 06:43 | XMS_ITS | Encounter Summary ---
Author Organization [facility] Address [address] [place] [address] Care Team Providers Care Mannequin Molder Name Role Phone Unavailable Primary Care Provider Unavailabl e Reason for Visit * Reason Onset Date Comments Results 09/15/2018 labs, chest xray Encounter Details Date Type Department Care Team (Late st Contact Info) Description 09/15/2018 Telephone [facility] Family Medicine - [facility] Abundio Yuan [address] [facility] [address] [place] [address] Ciro Fernandez, DO [address] [facility] [address] [place] [address] Results (labs, chest xray) Social History Tobacco Use Types Packs/Day Years [...] * Telephone Encounter - Kay Jesus - 09/15/2018 2:19 PM CST Patient notified and understands. YL BLENDER OPERATOR * Telephone Encounter - Kay Jesus - 09/15/2018 2:06 PM CST ----- Message from Courtney Weeks PA-C sent at 09/15/2018 1:37 PM TETRYL BLENDER OPERATOR ----- Blood Counts: Normal - No Anemia and the White blood count is normal. Normal Electrolytes, Glucose, Kidney Function and Liver Function. YL BLENDER OPERATOR * Telephone Encounter - Kay Jesus - 09/15/2018 2:06 PM CST ----- Message from Courtney Weeks PA-C sent at 09/15/2018 1:37 PM TETRYL BLENDER OPERATOR ----- CXR overall normal - normal heart size, lungs clear. There are some degenerative changes located inthe thoracic spine including syndesmophytes (bony growths in ligaments). YL BLENDER OPERATOR documented in this encounter Plan of Treatment Not on file documented as of this encounter Visit Diagnoses Not on filedocumented in this encounter
--- OUTSIDE RECORDS SUMMARY | 2024-08-19 06:43 | XMS_ITS | Encounter Summary ---
Author Organization [facility] Address [address] [place] [address] Care Team Providers Care Wire Border Assembler Name Role Phone Unavailable Primary Care Provider Unavailabl e Reason for Referral * MRI (Routine) - Closed Specialty Diagnoses / Procedures Referred By Contac t Referred To Contact Diagnoses Chronic right shoulder pain Shoulder weakness Procedures MRI SHOULDER WO CONTRAST RIGHT Ciro Fernandez DO [address] [facility] [place] [address] [facility] [employer] [facility] [address] [place] [address] Referral ID Status Reason Start Date Expiration Date V isits Requested Visits Authorized [id number] Closed ST[facility] CTS 08/15/2018 09/15/2018 1 1 NTORY TAKER Reason for Visit * Reason Comments Shoulder Pain right shoulder Encounter Details Date Type Department Care Team (Late st Contact Info) Description 08/12/2018 2:45 PM INVENTORY TAKER Office Visit [facility] Medicine - [facility] Abundio Yuan [address] [place] [address] Ciro Fernandez DO [address] [facility] [place] [address] Chronic right shoulder pain (Primary Dx); Shoulder weakness; Essential hypertension, benign Social History Tobacco Use [...] Sign Reading Time Taken Comments Blood Pressure 120/68 08/12/2018 2:23 PM INVENTORY TAKER Pulse 66 08/12/2018 2:23 PM INVENTORY TAKER Temperature 36.3 ??C (97.4 ??F) 08/12/2018 2:23 PM CS T Respiratory Rate - - Oxygen Saturation - - Inhaled Oxygen Concentration - - Weight 96 kg (211 lb 9.6 oz) 08/12/2018 2:23 PM INVENTORY TAKER Height 180.3 cm (5' 11 ) 08/12/2018 2:23 PM INVENTORY TAKER Body Mass Index 29.51 08/12/2018 2:23 PM INVENTORY TAKER documented in this encounter Progress Notes * Ciro Fernandez, DO - 08/12/2018 4:13 PM CST Subjective: Brendon Aldana is a 68 y.o. male is a right hand dominant person who complains of right Shoulder Pain for several years, then worse several months ago after he was raising his arms and it it on a boat. with radiation. There is no numbness/paresthesia Immediate symptoms: immediate pain, delayed pain. Symptoms have been intermittent since that time. Pain is worsened by physical activity and position Pain is relieved by nothing. Quality to pain is described as uncomfortable, aching. Frequency, duration, and intensity are rated by the patient as 6 out of 10. No other symptoms reported Negative for other red flags Hypertension: Current medication(s) reviewed. Taking and tolerating medications well. 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 Hypertensive diet compliance: yes Low Sodium Exercise compliance: no No change in vision. Denies chest pain, palpitations, pedal edema, shortness of breath. No polyuriaor polydipsia. No Cephalgia. Reviewed overall treatment plan, including diet and exercise, and prevention strategies. Last labs reviewed with patient. Exam: Blood pressure 120/68, pulse 66, temperature 97.4 ??F (36.3 ??C), temperature source Temporal, height 5' 11 (1.803 m), weight 96 kg (211 lb 9.6 oz). Patient appears to be in moderately severe pain. Positive for Pain located right anterior shoulder joint. No gross deformities noted. Negative Spurling Test Shoulder Strength Abnormal - due to pain Shoulder ROM - decrease in ROM with abduction and flexion. Positive tenderness over the AC joint Positive Empty Can Test (Supraspinatus) Positive Drop Arm Test (Supraspinatus) Positive Neer's Sign (impingement) Negative Servin Test (Impingement) Negative Speed's Test (Biceps Tendonitis) DTR's, motor strength and sensation normal Peripheral pulses are palpable. S1 and S2 normal, no murmurs, clicks, gallops or rubs. Regular rate and rhythm. Chest is clear; no wheezes or rales. Psych: Appropriate Impression: Plan: Brendon was seen today for shoulder pain. Diagnoses and all orders for this visit: Chronic right shoulder pain - MRI SHOULDER WO CONTRAST RIGHT; Future Shoulder weakness Comments: right Orders: - MRI SHOULDER WO CONTRAST RIGHT; Future Essential hypertension, benign - losartan-hydroCHLOROthiazide (HYZAAR) 50-12.5 mg tablet; Take 0.5 Tablets by mouth daily. See orders for this visit as documented in the electronic medical record. For acute pain, rest, intermittent application of ice (do not sleep on heating pad), Given ROM Stretches/Exercises Consider Physical Therapy and other studies if not improving. Call or return to clinic prn if these symptoms worsen or fail to improve as anticipated. Discussed Risks, Benefits and Alternatives of the current treatment regimen. Tobacco Intervention He is not a tobacco user. Depression Screen Positive: PHQ-2 score > 2 or PHQ-9 score > 9 PHQ-2 Total: 0 (08/12/18 1400) PHQ-9 Total: 0 (08/12/18 1400) His depression screen was normal Blood Pressure BP Readings from Last 3 Encounters: 08/12/18 120/68 05/12/18 112/60 03/18/18 104/72 Normal BMI Range: 18 & older: > or = 18.5 and < 25 Body mass index is 29.51 kg/m??. Abnormal high BMI: Patient counseled on lifestyle modifications including weight loss and daily exercise. NTORY TAKER documented in this encounter Plan of Treatment Not on file documented as of this encounter Results * MRI SHOULDER WO CONTRAST RIGHT (08/17/2018) Anatomical Region Laterality Modality Upper Extremity Other Ciro Fernandez DO MR ORDERABLES documented in this encounter Visit Diagnoses Diagnosis Chronic right shoulder pain- Primary Pain in joint, shoulder region Shoulder weakness Other joint derangement, not elsewhere classified, shoulder region Essential hypertension, benign documented in this encounter
--- OUTSIDE RECORDS SUMMARY | 2024-08-19 06:43 | XMS_ITS | Encounter Summary ---
Author Organization [facility] Address [address] [place] [address] Care Team Providers Care Sewing Room Supervisor Name Role Phone Unavailable Primary Care Provider Unavailabl e Reason for Visit * Reason Onset Date Comments Medication Refill 08/31/2017 Encounter Details Date Type Department Care Team (Late st Contact Info) Description 09/01/2017 Refill [facility] Family Medicine - [facility] Abundio Yuan [address] [facility] [address] [place] [address] Ciro Fernandez DO [address] [facility] [address] [place] [address] Social History Tobacco Use Types [...] * Telephone Encounter - Kay Jesus - 09/01/2017 8:39 AM CSTFrom: Brendon Aldana Sent: 08/31/2017 4:51 PM SPIRITUAL ADVISOR Subject: Medication Renewal Request Brendon Aldana would like a refill of the following medications: omeprazole (PriLOSEC) 20 mg Capsule, Delayed Release(E.C.) [Ciro Fernandez DO] Patient Comment: Rx must be written as a 90 day rx and sent to [facility] Preferred pharmacy: [facility] - [place], [place] - [address] [place] [address] Delivery method: Pickup ITUAL ADVISOR documented in this encounter Plan of Treatment Not on file documented as of this encounter Visit Diagnoses Not on filedocumented in this encounter
--- OUTSIDE RECORDS SUMMARY | 2024-08-19 06:43 | XMS_ITS | Encounter Summary ---
Author Organization [facility] Address [address] [place] [address] Care Team Providers Care Teletypesetter Monitor Name Role Phone Unavailable Primary Care Provider Unavailabl e Reason for Visit * Reason Comments Cough drainage Encounter Details Date Type Department Care Team (Late st Contact Info) Description 09/21/2018 3:30 PM [employer] Office Visit [facility] Medicine - [facility] Kwabena [address] [facility] [address] [place] [address] Ciro Fernandez, DO [address] [facility] [address] [place] [address] Bilateral otitis media with effusion (Primary Dx); Acute non-recurrent frontal sinusitis Social History Tobacco Use Types Packs/Day Years [...] Sign Reading Time Taken Comments Blood Pressure 116/70 09/21/2018 3:13 PM INS[employer]OR [employer] Pulse 72 09/21/2018 3:13 PM INS[employer]OR [employer] Temperature 36.5 ??C (97.7 ??F) 09/21/2018 3:13 PM CS T Respiratory Rate - - Oxygen Saturation - - Inhaled Oxygen Concentration - - Weight 96.2 kg (212 lb) 09/21/2018 3:13 PM INS[employer]OR [employer] Height 180.3 cm (5' 11 ) 09/21/2018 3:13 PM INS[employer]OR [employer] Body Mass Index 29.57 09/21/2018 3:13 PM INS[employer]OR [employer] documented in this encounter Progress Notes * FernandezShortyaileen Jaime, DO - 09/21/2018 5:16 PM CST Subjective: Brendon Aldana 68 y.o. male presents with a 1 week history of cough, sore throat, postnasal discharge, MORALES. Tried over the counter antihistamines, OTC cough/cold product of patient's choice PRN and fluids and rest with no improvement. Patient denies chest pain or SOB. No N/V/D. Positive ROS for fatigue. No other symptoms. Positive Sick Contacts Negative Fevers positive for history of allergies. Review of Systems - General ROS: negative for unexpected weight changes Ophthalmic ROS: negative for visual changes Respiratory ROS: negative for shortness of breath, or wheezing Cardiovascular ROS: negative for chest pain, heart palpitations or dyspnea on exertion Gastrointestinal ROS: negative for abdominal pain, change in bowel habits, or black or bloody stools. Neurological ROS: negative for confusion. No severe headaches or loss of balance. Past Medical/Surgical/Social/Family History reviewed as well as Allergies and Medications. Objective: BP 116/70 Pulse 72 Temp 97.7 ??F (36.5 ??C) (Temporal) Ht 5' 11 (1.803 m) Wt 96.2 kg (212 lb) BMI 29.57 kg/m?? Gen'l: NAD HEENT: Perrla, eomi. Sinuses tender to palpation over the bilateral frontal sinuses. Throat erythematous without exudates. red, swollen nasal turbinates. clear and yellow Nasal Discharge. Bilateral TM injected with straw colored fluid. Neck: Supple. No lymphadenopathy. No meningeal signs. Lungs: Clear to auscultation bilaterally. CV: RRR. No murmur. Skin: No rash noted on examination. A/P: Berndon was seen today for cough. Diagnoses and all orders for this visit: Bilateral otitis media with effusion - amoxicillin (AMOXIL) 500 mg Tablet; Take 1 Tablet (500 mg) by mouth every 8 hours for 10 days. Acute non-recurrent frontal sinusitis - amoxicillin (AMOXIL) 500 mg Tablet; Take 1 Tablet (500 mg) by mouth every 8 hours for 10 days. OTC Meds as discussed Increase Fluids and Rest Discussed Risks, Benefits and Alternatives of the current treatment regimen. Call or return to clinic prn if these symptoms worsen or fail to improve as anticipated. [employer] documented in this encounter Plan of Treatment Not on file documented as of this encounter Visit Diagnoses Diagnosis Bilateral otitis media with effusion- Primary Nonsuppurative otitis media, not specified as acute or chronic Acute non-recurrent frontal sinusitis documented in this encounter
--- OUTSIDE RECORDS SUMMARY | 2024-08-19 06:43 | XMS_ITS | Encounter Summary ---
Author Organization [facility] Address [address] [place] [address] Care Team Providers Care Assembler Bicycle Name Role Phone Unavailable Primary Care Provider Unavailabl e Encounter Details Date Type Department Care Team (Latest Contact Info) Description 09/14/2018 4:04 PM COIL PLACER - 09/14/2018 11:59 PM [facility] Hospital Encounter [facility] Imaging Services [facility] [address] [facility] [address] [place] [address] Courtney Weeks PA-C [address] [place] [address] Discharge Disposition: Home or Self [...] 5 06/24/2018 01/19/2019 fluticasone (FLONASE) 50 mcg/spray [place], Suspension Administer 2 Sprays in each nostril daily. 48 Gram 3 12/06/2017 12/12/2018 documented as of this encounter Plan of Treatment Not on file documented as of this encounter Procedures Procedure Name Priority Date/Time Associated Diagnosis Comments XR CHEST PA AND LATERAL 2 VW Routine 09/14/2018 4:18 PM COIL PLACER Complete rotator cuff tear or rupture of right shoulder, not specified as traumatic Pre-operative exam documented in this encounter Results * XR CHEST PA AND LATERAL 2 VW (09/14/2018 4:18 PM COIL PLACER) Anatomical Region Laterality Modality Chest Computed Radiogr aphy 09/14/2018 4:18 PM COIL PLACER Impressions 09/14/2018 6:53 PM COIL PLACER IMPRESSION: 1. ??No acute abnormality identified. DICTATION LOCATION: Location 1 - [facility] 09/14/2018 6:53 PM COIL PLACER XR CHEST PA AND LATERAL 2 VW [...] 1. No acute abnormality identified. DICTATION LOCATION: Location - [facility] Courtney Weeks PA-C [facility] ORDERABLES documented in this encounter Visit Diagnoses Diagnosis Complete rotator cuff tear or rupture of right shoulder, not specified as traumatic Complete rupture of rotator cuff Pre-operative exam Preoperative examination, unspecified documented in this encounter
--- OUTSIDE RECORDS SUMMARY | 2024-08-19 06:43 | XMS_ITS | Encounter Summary ---
Author Organization [facility] Address [address] [place] [address] Care Team Providers Care Salesperson Household Appliances Name Role Phone Unavailable Primary Care Provider Unavailabl e Reason for Visit * Reason Comments Follow Up Right Shoulder * Eval and Treat (Routine) - Closed Specialty Diagnoses / Procedures Referred By Georgie gallagher Referred To Contact Orthopedic Surgery Diagnoses Complete tear of right rotator cuff Tear of right supraspinatus tendon, initial encounter Ciro Fernandez, DO [address] [facility] [address] [place] [address] [place] [address] [place] [address] Referral ID Status Reason Start Date Expiration Date V isits Requested Visits Authorized [id number] Closed CRS To Schedule (STL) 08/19/2018 08/08/2019 99 99 Encounter Details Date Type Department Care Team (Latest Contact Info) Description 01/17/2019 2:00 PM CDT Office Visit [facility] Orthopedic Surgery - [place] [address] [place] [address] Jennifer Patel, ANP [facility] [address] [phone] S/P right rotator cuff repair (Primary Dx); [...] Sign Reading Time Taken Comments Blood Pressure 115/73 01/17/2019 1:53 PM CDT Pulse 73 01/17/2019 1:53 PM CDT Temperature - - Respiratory Rate - - Oxygen Saturation - - Inhaled Oxygen Concentration - - Weight 95.7 kg (211 lb) 01/17/2019 1:53 PM CDT Height 180.3 cm (5' 11 ) 01/17/2019 1:53 PM CDT Body Mass Index 29.43 01/17/2019 1:53 PM CDT documented in this encounter Progress Notes * Jennifer Patel, ALICIA - 01/17/2019 5:46 PM CDT ORTHOPEDIC POST-OP SHOULDER ARTHROSCOPY PROGRESS NOTE Name: Brendon Aldana Age: 68 y.o. Date of : 1950 CSN: [id number] Date of service: 01/17/2019 Chief Complaint Patient presents with ??? Follow Up Right Shoulder Subjective: Brendon Aldana presents for 15 week postoperative visit following right shoulder arthroscopy with subacromial decompression, and rotator cuff repair. Surgery was on 09/30/2018. Patient reports shoulder is doing well. He denies use of pain medication for shoulder symptoms. He does occasionally have twinging pain with activity and with physical therapy. He has been attending outpatient physical therapy twice weekly. He has not been diligent with home exercise program. PMHx: Past Medical History: Diagnosis Date ??? Community acquired pneumonia ??? Contact dermatitis and other eczema, due to unspecified cause ??? Essential hypertension ??? [place] (hard of hearing) ??? Motion sickness PSHx: Past Surgical History: Procedure Laterality Date ??? HX HEART CATHETERIZATION 1992 ??? 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 HX VASECTOMY 1980 ??? ID COLONOSCOPY FLX DX W/COLLJ SPEC WHEN PFRMD 01/12/2014 COLONOSCOPY performed by Modesta Wise, DO at [facility] ??? ID SHLDR ARTHROSCOP,SURG,W/ROTAT CUFF REPR Right 09/30/2018 RIGHT SHOULDER SCOPE W ROTATOR CUFF REPAIR, SUBACROMIAL DECOMPRESSION, W EXTENSIVE DEBRIDEMENT performed by Nehemiah Castellano MD at [facility] CC OR ALLERGIES: Allergies Allergen Reactions ??? Bactrim [Sulfamethoxazole-Trimethoprim] Rash ??? Medrol [Methylprednisolone] Rash and Other (See Comments) redness MEDICATIONS: Current Outpatient Medications Medication Sig Dispense Refill ??? fluticasone propionate (FLONASE) 50 mcg/spray [place], Suspension nasal inhaler Administer 2 Sprays in [...] by mouth daily. 180 Capsule 0 ??? cetirizine-pseudoephedrine sr 12 hour (ZyrTEC-D) 5-120 mg tablet TAKE ONE TABLET BY MOUTH TWO TIMES DAILY. 72 Tablet 5 ??? Cholecalciferol, Vitamin D3, (VITAMIN D3) 2,000 [...] level: Not on file Occupational History Employer: [employer] Social Needs ??? Financial resource strain: Not [...] file Gets together: Not on file Attends mormonism service: Not on file Active member of [...] brisk capillary refill Active forward flexion about 130 degrees, abduction about 100 degrees, and external rotation about 60 degrees. Intact neurovascular Assessment: ORTHOPEDIC IMPRESSION: ICD-10-CM ICD-9-CM 1. S/P right rotator cuff repair Z98.890 V45.89 2. S/P arthroscopy of right shoulder Z98.890 V45.89 3. Status post subacromial decompression Z98.890 V45.89 Plan: PLAN: Orders Placed This Encounter ??? PT EVAL AND TREAT The patient's questions were answered. He will continue outpatient physical therapy. I recommended active participation in home exercise program at least once daily on the days not attending outpatient physical therapy. Follow up: 6 weeks. Normal BMI Range: 18 & older: [...]
--- OUTSIDE RECORDS SUMMARY | 2024-08-19 06:43 | XMS_ITS | Encounter Summary ---
Author Organization [facility] Address [address] [facility] Attn: Epic Prelude ADT AKYE SCHMID [address] Care Team Providers Care Machine Cutter Name Role Phone Unavailable Primary Care Provider Unavailabl e Encounter Details Date Type Department Care Team (Latest Contact Info) Description 01/08/2020 Travel Social History Tobacco Use Types Packs/Day [...]
--- OUTSIDE RECORDS SUMMARY | 2024-08-19 06:43 | XMS_ITS | Encounter Summary ---
Author Organization [facility] Address [address] [place] [address] Care Team Providers Care Hand Driller Name Role Phone Unavailable Primary Care Provider Unavailabl e Reason for Referral * Eval and Treat (Routine) - Closed Specialty Diagnoses / Procedures Referred By Georgie gallagher Referred To Contact Orthopedic Surgery Diagnoses Complete tear of right rotator cuff Tear of right supraspinatus tendon, initial encounter Ciro Fernandez DO [address] [facility] [address] [place] [address] [place] [address] [place] [address] Referral ID Status Reason Start Date Expiration Date V isits Requested Visits Authorized [id number] Closed CRS To Schedule (STL) 08/19/2018 08/08/2019 99 99 TH ASSOCIATE Reason for Visit * Reason Onset Date Comments Results 08/19/2018 MRI R shoulder Encounter Details Date Type Department Care Team (Late st Contact Info) Description 08/19/[address] [facility] - [address] [place] [address] Ciro Fernandez DO [address] [facility] [address] [place] [address] Results (MRI R shoulder) Social History Tobacco Use Types Packs/Day Years [...] * Telephone Encounter - Cristela Herman - 08/19/2018 11:23 AM CST I notified pt and of MRI results and recommendations. Both verbalized understanding. I gave # to call CRS. MRI report emailed to pt. Referral placed. TH ASSOCIATE * Telephone Encounter - Cristela Herman - 08/19/2018 11:03 AM CST ----- Message from Ciro Fernandez DO sent at 08/19/2018 10:29 AM HEALTH ASSOCIATE ----- MRI of your shoulder did show a full thickness tear of the rotator cuff muscle called the supraspinatus. It also showed minimal AC joint arthritis. With this tear I would recommend orthopedic evaluation. TH ASSOCIATE documented in this encounter Plan of Treatment Scheduled Referrals Name Type Priority Associated Diagnoses Orde r Schedule AMB REFERRAL TO ORTHOPEDIC SURGERY Outpatient Referral Routine Complete tear of right rotator cuff Tear of right supraspinatus tendon, initial encounter Ordered: 08/19/2018 documented as of this encounter Visit Diagnoses Diagnosis Complete tear of right rotator cuff- Primary Tear of right supraspinatus tendon, initial encounter documented in this encounter
--- OUTSIDE RECORDS SUMMARY | 2024-08-19 06:43 | XMS_ITS | Encounter Summary ---
Author Organization [facility] Address [address] [place] [address] Care Team Providers Care Washroom Operator Name Role Phone Unavailable Primary Care Provider Unavailabl e Encounter Details Date Type Department Care Team (Late st Contact Info) Description 09/14/2018 Orders Only [facility] Urgent [address] [place] [address] Ciro Fernandez, DO [address] [facility] [address] [place] [address] Social History Tobacco Use Types [...]
--- OUTSIDE RECORDS SUMMARY | 2024-08-19 06:43 | XMS_ITS | Encounter Summary ---
Author Organization [facility] Address [address] [place] [address] Care Team Providers Care Gambling Floor Supervisor Name Role Phone Unavailable Primary Care Provider Unavailabl e Reason for Visit * Reason Comments Post-op Visit Rt shoulder * Eval and Treat (Routine) - Closed Specialty Diagnoses / Procedures Referred By Contac t Referred To Contact Orthopedic Surgery Diagnoses Complete tear of right rotator cuff Tear of right supraspinatus tendon, initial encounter Ciro Fernandez, DO [address] [facility] [address] [place] [address] [place] [address] [place] [address] Referral ID Status Reason Start Date Expiration Date V isits Requested Visits Authorized [id number] Closed CRS To Schedule (STL) 08/19/2018 08/08/2019 99 99 Encounter Details Date Type Department Care Team (Latest Contact Info) Description 11/08/2018 1:45 PM CDT Office Visit [facility] Orthopedic Surgery - [place] [id number] [place] [address] [place] [address] Jennifer Patel, ANP [address] [phone] S/P right rotator cuff repair (Primary Dx); [...] Sign Reading Time Taken Comments Blood Pressure 103/66 11/08/2018 1:40 PM CDT Pulse 85 11/08/2018 1:40 PM CDT Temperature - - Respiratory Rate - - Oxygen Saturation - - Inhaled Oxygen Concentration - - Weight 97.7 kg (215 lb 4.8 oz) 11/08/2018 1:40 P M CDT Height 180.3 cm (5' 11 ) 11/08/2018 1:40 PM CDT Body Mass Index 30.03 11/08/2018 1:40 PM CDT documented in this encounter Progress Notes * Jennifer Patel, ANP - 11/09/2018 1:56 PM CDT ORTHOPEDIC POST-OP SHOULDER ARTHROSCOPY PROGRESS NOTE Name: Brendon Aldana Age: 68 y.o. Date of : 1950 CSN: [id number] Date of service: 11/08/2018 Chief Complaint Patient presents with ??? Post-op Visit Rt shoulder Subjective: Brendon Aldana presents for 8 week postoperative visit following right shoulder arthroscopy with subacromial decompression, and rotator cuff repair. Surgery was on 09/30/2018. Pain is controlled withcurrent analgesics. Medication(s) being used: prescription NSAID's including ibuprofen 800 mg very rarely needed. He is no longer applying ice. He has been wearing sling as prescribed. PMHx: Past Medical History: Diagnosis Date ??? Community acquired pneumonia ??? Contact dermatitis and other eczema, due to unspecified cause ??? Essential hypertension ??? [place] (hard of hearing) ??? Motion sickness PSHx: Past Surgical History: Procedure Laterality Date ??? HX HEART CATHETERIZATION 1992 ??? 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 HX VASECTOMY 1980 ??? IN COLONOSCOPY FLX DX W/COLLJ SPEC WHEN PFRMD 01/12/2014 COLONOSCOPY performed by Modesta Wise, DO at [facility] GI [facility] ??? IN SHLDR ARTHROSCOP,SURG,W/ROTAT CUFF REPR Right 09/30/2018 RIGHT SHOULDER SCOPE W ROTATOR CUFF REPAIR, SUBACROMIAL DECOMPRESSION, W EXTENSIVE DEBRIDEMENT performed by Nehemiah Castellano MD at [facility] CC OR ALLERGIES: Allergies Allergen Reactions ??? Bactrim [Sulfamethoxazole-Trimethoprim] Rash ??? Medrol [Methylprednisolone] Rash and Other (See Comments) redness MEDICATIONS: Current Outpatient Prescriptions Medication Sig Dispense Refill ??? traZODone (DESYREL) 50 mg tablet Take 1 Tablet (50 mg) by mouth daily at bedtime. 30 Tablet 1 ??? olmesartan-hydroCHLOROthiazide (BENICAR HCT) 20-12.5 mg tablet Take 1 Tablet by mouth daily bronc buster. 30 Tablet 1 ??? ibuprofen (MOTRIN) 800 [...] Tablet 5 ??? fluticasone (FLONASE) 50 mcg/spray [place], Suspension Administer 2 Sprays in each nostril daily.48 Gram 3 ??? Cholecalciferol, Vitamin D3, (VITAMIN D3) 2,000 unit Capsule Take 1 Cap by mouth daily. ??? UBIDECARENONE (CO Q-10 ORAL) Take by mouth. No current facility-administered medications for this visit. Family History: Family History Problem Relation Age [...] Years of education: N/A Occupational History ??? [employer] Social History Main Topics ??? Smoking status: Never Smoker ??? Smokeless tobacco: Never Used ??? Alcohol use No ??? Drug use: No ??? Sexual activity: Not on file Other Topics Concern ??? Not on file Social History Narrative ??? No narrative on file ROS Objective: General : alert, in no distress Braces: Shoulder sling Sutures: Sutures out. Incisions: healing well, no significant drainage, no dehiscence, no significant erythema Sensory: Intact to entire right upper extremity Vascular: 2+ radial pulses, brisk capillary refill Passive forward flexion of the right shoulder to about 95 degrees with external rotation about 20 degrees. Assessment: ORTHOPEDIC IMPRESSION: ICD-10-CM ICD-9-CM 1. S/P right rotator cuff repair Z98.890 V45.89 2. S/P arthroscopy of right shoulder Z98.890 V45.89 3. Status post subacromial decompression Z98.890 V45.89 Plan: PLAN: Orders Placed This Encounter ??? PT EVAL AND TREAT The patient's questions were answered. He can wean from sling. He was referred to outpatient physical therapy. He will not return to work at this time. We will revisit possible return to work date atfollow-up visit in 4 weeks. Follow up: 4 weeks. documented in this encounter Plan of Treatment Not on file documented as of this encounter Visit Diagnoses Diagnosis S/P right rotator cuff repair- Primary S/P arthroscopy of right shoulder Status post subacromial decompression documented in this encounter
--- OUTSIDE RECORDS SUMMARY | 2024-08-19 06:43 | XMS_ITS | Encounter Summary ---
Author Organization [facility] Address [address] [place] [address] Care Team Providers Care Rn Medicare Name Role Phone Unavailable Primary Care Provider Unavailabl e Reason for Visit * Auth/Cert Specialty Diagnoses / Procedures Referred By Contac t Referred To Contact Multi Specialty Diagnoses Fecal occult blood test positive Procedures COLONOSCOPY [facility] [address] [place] [address] Referral ID Status Reason Start Date Expiration Date Visits Re quested Visits Authorized [id number] 1 1 Encounter Details Date Type Department Care Team (Late st Contact Info) Description 09/01/2019 8:23 AM RETAIL REPRESENTATIVE Anesthesia Event [facility] S [facility] [address] [place] [address] Efren Burgess MD [address] [place] [address] Anesthesia Record Procedure Summary Procedure Name Responsible Anesthesiologist Anesthesia Start Time Anesthesia Stop Time COLONOSCOPY (Anus) Efren Burgess MD 09/01/19 0823 09/01/19 0902 Events Date Time Event Comment 09/01/2019 0743 0806 AN Equip Check Anesthesia eq uipment and materials checked in accordance with local policy. 0823 An Start 0823 In Room This event disp lays the In Room time documented in the Surgical Log. Deleting this event will not remove it from the log but will remove it from the Grid and Graph timeline. 0823 An Start Data 0824 Pre-Induction Immediate pre- induction anesthetic assessment performed. Vital signs as noted on graphic. 0832 An Induction 0832 Anesthesia Ready 0834 Procedure Start This event d isplays the Procedure Start time documented in the Surgical Log. Deleting this event will not remove it from the log but will remove it from the Grid and Graph timeline. 0856 Procedure Stop This event di splays the Procedure Stop time documented in the Surgical Log. Deleting this event will not remove it from the log but will remove it from the Grid and Graph timeline. 0858 an stop data 0858 Out of Room This event disp lays the Out of Room time documented in the Surgical Log. Deleting this event will not remove it from the log but will remove it from the Grid and Graph timeline. 0901 Hand-off to [facility]ceiving [facility] Post-Anesthetic transfer of care report elements to appropriate post-anesthesia recovery environment completed in accordance with procedure. 0902 An Stop Meds Name Total lidocaine (XYLOCAINE) 2% injection 60 mg propofol (DIPRIVAN) 10??mg/mL injection 400 mg lactated ringers infusion 800 mL * Agents Name O2 Inspired O2 N2O Inspired N2O * Blood No blood administrations on file. Lines, Drains, and Airways Type Details Placement Removal Wound 09/30/18; 0952; No; 1; Right; shoulder; surgical 09/30/18 0952 by Erna Walker RN Peripheral IV Orientation: Left; Location: Hand; Device: Angiocath; Gauge: 20 gauge; Needle Length: 1 in length; Insertion Attempts: 1; Patient Tolerance: tolerated well 09/01/19 0743 by Amarilis Nagel RN Supraglottic Airway Mask Sha: mask ventilation not attempted; Type: nasal cannula; Confirmation: end tidal CO2, satisfactory chest rise 09/01/19 0824 by Roxana Fan AA-C 09/01/19 2146 by PROVIDER, DISCHARGE PATIENT documented in this encounter Social History Tobacco [...] OR Notes * Anesthesia Postprocedure Evaluation - Roxana Fan AA-C - 09/01/2019 9:03 AM CST Post Anesthesia Evaluation Vitals: Vitals Value Taken Time BP 87/49 09/01/2019 9:01 AM Temp 36.3 ??C 09/01/2019 9:01 AM Resp 16 09/01/2019 9:01 AM SpO2 92 % 09/01/2019 9:01 AM Pulse 68 09/01/2019 9:01 AM Heart Rate Pain Rating: Anesthesia Post Evaluation Patient location during evaluation: PACU Patient participation: patient was able to participate in the post op evaluation Level of consciousness: 1 = not alert but arousable by minor stimulation to obey, answer or respond Pain management: adequate Airway patency: patent Nausea or Vomiting: none Anesthetic complications: no Cardiovascular status: regular rate and rhythm Respiratory status: no respiratory symptoms Hydration status: mildly dehydrated SONU Mason [place] REPRESENTATIVE * Anesthesia Handoff - Roxana Fan AA-C - 09/01/2019 9:01 AM CST Post-Anesthetic transfer of care report [...] and acknowledgement of understanding. Vital Signs: BP: (!) 87/49 (09/01/2019 9:01 AM) Pulse: 68 (09/01/2019 9:01 AM) Temp: 36.3 ??C (09/01/2019 9:01 AM) Resp: 16 (09/01/2019 9:01 AM) SpO2: 92 % (09/01/2019 9:01 AM) 9:03 AM SONU [place] REPRESENTATIVE * Anesthesia Preprocedure Evaluation - Efren Burgess MD - 08/31/2019 9:53 PM CST Relevant Problems No relevant active problems Anesthesia Evaluation Patient summary reviewed and Nursing notes reviewed Airway Mallampati: II TM distance: >3 FB Neck ROM: full Dental - normal exam Pulmonary (-) pneumonia, COPD, asthma, shortness of breath, [...] No acute abnormality identified. DICTATION LOCATION: Location 1 - [facility] Results for orders placed or performed during [...] is identified. Impression IMPRESSION: Negative. Dictated from [facility] Chest CT result (most recent): No results [...] No acute abnormality identified. DICTATION LOCATION: Location 1 - [facility] Cardiovascular (+) hypertension well controlled, (-) pacemaker, valvular problems/murmurs, past PR, CAD, CABG/stent, dysrhythmias, angina, CHF, orthopnea, PND, RENAE, murmur, friction rub Rhythm: regular Rate: normal ROS comment: Cardiac Echo result (most recent): No results found for this or any previous visit. Neuro/Psych (-) seizures, neuromuscular disease, TIA, CVA, headaches, psychiatric history Comments: Carotid Doppler result (most recent): No results found for this or any previous visit. GI/Hepatic/Renal (+) GERD poorly controlled, (-) hiatal hernia, PUD, hepatitis, liver disease, renal disease, bowel prep Endo/Other (+) arthritis (Osteoarthritis) (-) diabetes mellitus, hypothyroidism, hyperthyroidism, blood dyscrasia Abdominal Abdomen: soft. Anesthesia History No history of anesthetic complications, no history of difficult intubation, no history of malignanthyperthermia, no history of PONV and no pseudocholinesterase deficiency. Anesthesia Plan ASA Final: 2 General Intravenous induction Mask airway maintenance NPO status > 8 hours Anesthetic plan and risks discussed with Patient. Plan discussed with Anesthesiologist Material Worker and Anesthesiologist. Post-op Pain Control Plan to use IV or IM medication for post-op pain control. Smoking Compliance Patient did not smoke on day of surgery [place] REPRESENTATIVE documented in this encounter Plan of Treatment [...] Pre-Procedure Continue from Pre-Op 09/01/2019 8:22 AM RETAIL REPRESENTATIVE New Bag 09/01/2019 7:43 AM RETAIL REPRESENTATIVE 125 mL/hr lidocaine 2 % (XYLOCAINE) injection INTRA-PROCEDURE PRN, Starting on Wed09/01/19 at 0832, Until Wed09/01/19 at 0903, Routine, Anesthesia Intra-op Given 09/01/2019 8:32 AM RETAIL REPRESENTATIVE 60 mg propofol (DIPRIVAN) injection INTRA-PROCEDURE PRN, Starting on Wed09/01/19 at 0832, Until Wed09/01/19 at 0903, Anesthesia Intra-op Given 09/01/2019 8:56 AM RETAIL REPRESENTATIVE 10 mg Given 09/01/2019 8:53 AM RETAIL REPRESENTATIVE 30 mg Given 09/01/2019 8:50 AM RETAIL REPRESENTATIVE 30 mg documented in this encounter
--- OUTSIDE RECORDS SUMMARY | 2024-08-19 06:44 | XMS_ITS | Encounter Summary ---
Author Organization [facility] Address [address] [place] [address] Care Team Providers Care Kiln Drawer Name Role Phone Unavailable Primary Care Provider Unavailabl e Reason for Visit * Reason Onset Date Comments Medication Refill 04/07/2015 Encounter Details Date Type Department Care Team (Late st Contact Info) Description 04/07/2015 Refill [facility] Family Medicine - [facility] [address] [facility] [address] [place] [address] Ciro Fernandez DO [address] [facility] [address] [place] [address] Social History Tobacco Use Types [...] Notes * Telephone Encounter - Kay Jesus INJECTION MOLDING MACHINE SETTER - 04/08/2015 2:32 PM CDTFrom: Brendon Aldana To: Ciro Fernandez DO Sent: 04/07/2015 8:01 PM CDT Subject: Medication Renewal Request Original authorizing provider: DO Brendon Tom would like a refill of the following medications: losartan (COZAAR) 50 mg tablet [Ciro Fernandez DO] ibuprofen (MOTRIN) 800 mg tablet [Ciro Fernandez DO] Preferred pharmacy: [facility] - [address] Comment: These rx must be written for 90 days and sent to [facility]. Thank you. documented in this encounter Plan of Treatment Not on file documented as of this encounter Visit Diagnoses Not on filedocumented in this encounter
--- OUTSIDE RECORDS SUMMARY | 2024-08-19 06:44 | XMS_ITS | Encounter Summary ---
Author Organization [facility] Address [address] [place] [address] Care Team Providers Care Driving Instructor Name Role Phone Unavailable Primary Care Provider Unavailabl e Reason for Visit * Reason Onset Date Comments Results 06/20/2015 Encounter Details Date Type Department Care Team (Late st Contact Info) Description 06/20/2015 Telephone [facility] Family Medicine - [facility] [address] [facility] [address] [place] [address] Ciro Fernandez DO [address] [facility] [address] [place] [address] Results Social History Tobacco Use [...] Miscellaneous Notes * Telephone Encounter - Jennifer Burnett - 06/20/2015 3:26 PM CST PT INFORMED/SB B DRIVER * Telephone Encounter - Jennifer Burnett - 06/20/2015 3:25 PM CST ----- Message from Ciro Fernandez DO sent at 06/17/2015 12:09 PM CDL B DRIVER ----- Your laboratory studies have been received, please return to office for a follow up examination. Overall they were in good range, It is just time for your regular appointment. You can follow up with myself or my physician oncology physician assistant. B DRIVER documented in this encounter Plan of Treatment Not on file documented as of this encounter Visit Diagnoses Not on filedocumented in this encounter
--- OUTSIDE RECORDS SUMMARY | 2024-08-19 06:44 | XMS_ITS | Encounter Summary ---
Author Organization [facility] Address [address] [place] [address] Care Team Providers Care Metal Or Wood Blocker Name Role Phone Unavailable Primary Care Provider Unavailabl e Reason for Visit * Reason Comments Medication Refill Encounter Details Date Type Department Care Team (Late st Contact Info) Description 10/22/[address] [facility] Family Medicine - [facility] [address] [facility] [address] [place] [address] Ciro Fernandez, DO [address] [facility] [address] [place] [address] Social History Tobacco Use Types [...] Telephone Encounter - Kay Jesus CMA - 10/23/2015 8:01 AM CDT Script faxed. documented in this encounter Plan of Treatment Not on file documented as of this encounter Visit Diagnoses Not on filedocumented in this encounter
--- OUTSIDE RECORDS SUMMARY | 2024-08-19 06:44 | XMS_ITS | Encounter Summary ---
Author Organization [facility] Address [address] [place] [address] Care Team Providers Care Hand Alterations Tailor Name Role Phone Unavailable Primary Care Provider Unavailabl e Reason for Visit * Reason Onset Date Comments Medication Refill 04/18/2017 Encounter Details Date Type Department Care Team (Late st Contact Info) Description 04/19/2017 Refill [facility] Family Medicine - [facility] Abundio Yuan [address] [facility] [address] [place] [address] Ciro Fernandez DO [address] [facility] [address] [place] [address] Social History Tobacco Use Types [...] Telephone Encounter - Kay Jesus N - 04/19/2017 7:55 AM CDTFrom: Brendon Aldana To: Ciro Fernandez DO Sent: 04/18/2017 3:25 PM CDT Subject: Medication Renewal Request Original authorizing provider: DO Brendon Tom would like a refill of the following medications: cetirizine-pseudoephedrine sr 12 hour (ZyrTEC-D) 5-120 mg tablet [Ciro Fernandez DO] Preferred pharmacy: [id number] [address]: Pick[address] Comment: Please send this rx to [facility]. Thank you. documented in this encounter Plan of Treatment Not on file documented as of this encounter Visit Diagnoses Not on filedocumented in this encounter
--- OUTSIDE RECORDS SUMMARY | 2024-08-19 06:44 | XMS_ITS | Encounter Summary ---
Author Organization [facility] Address [address] [place] [address] Care Team Providers Care Spot Welder Line Name Role Phone Unavailable Primary Care Provider Unavailabl e Reason for Visit * Reason Onset Date Comments Medication Refill 08/21/2016 Encounter Details Date Type Department Care Team (Late st Contact Info) Description 08/24/2016 Refill [facility] Family Medicine - [facility] Abundio Yuan [address] [facility] [address] [place] [address] Ciro Fernandez DO [address] [facility] [address] [place] [address] Social History Tobacco Use Types [...] encounter Miscellaneous Notes * Telephone Encounter - Edna Jackson RMA - 08/24/2016 8:00 AM CST Patient needs an appointment before next refill. CHOOL TEACHER * Telephone Encounter - Edna Jackson RMA - 08/24/2016 7:58 AM CSTFrom: Brendon Aldana To: Ciro Fernandez DO Sent: 08/21/2016 8:32 AM PRESCHOOL TEACHER Subject: Medication Renewal Request Original authorizing provider: DO Brendon Tom would like a refill of the following medications: tadalafil (CIALIS) 20 mg tablet [Ciro Fernandez DO] Preferred pharmacy: [facility] [address] [place] [address] [facility] [facility] Delivery method: Pickup Comment: This Rx should go to [facility]. Thank you. CHOOL TEACHER documented in this encounter Plan of Treatment Not on file documented as of this encounter Visit Diagnoses Not on filedocumented in this encounter
--- OUTSIDE RECORDS SUMMARY | 2024-08-19 06:44 | XMS_ITS | Encounter Summary ---
Author Organization [facility] Address [address] [place] [address] Care Team Providers Care Supervisor Engraving Name Role Phone Unavailable Primary Care Provider Unavailabl e Reason for Referral * Eval and Treat (Routine) - Closed Specialty Diagnoses / Procedures Referred By Georgie t Referred To Contact Physical Therapy Diagnoses Strain of iliopsoas muscle, unspecified laterality, subsequent encounter Ciro Fernandez DO [address] [facility] [address] [place] [address] Referral ID Status Reason Start Date Expiration Date V isits Requested Visits Authorized [id number] Closed CRS To Schedule (STL) 12/10/2015 08/08/2016 60 60 Reason for Visit * Reason Comments Back Pain R lower back, R Groi n Pain x 1 week Encounter Details Date Type Department Care Team (Late st Contact Info) Description 12/10/2015 2:00 PM CDT Office Visit [facility] Medicine - [facility] [address] [place] [address] Ciro Fernandez DO [address] [facility] [address] [place] [address] Low back pain without sciatica, unspecified back pain laterality, unspecified chronicity (Primary Dx); Strain of iliopsoas muscle, unspecified laterality, subsequent encounter Social History Tobacco Use Types Packs/Day [...] Sign Reading Time Taken Comments Blood Pressure 136/80 12/10/2015 1:42 PM CDT Pulse 72 12/10/2015 1:42 PM CDT Temperature 36.9 ??C (98.4 ??F) 12/10/2015 1:42 PM CD T Respiratory Rate - - Oxygen Saturation - - Inhaled Oxygen Concentration - - Weight 94.3 kg (208 lb) 12/10/2015 1:42 PM CDT Height 177.8 cm (5' 10 ) 12/10/2015 1:42 PM CDT Body Mass Index 29.84 12/10/2015 1:42 PM CDT documented in this encounter Progress Notes * Ciro Fernandez, DO - 12/10/2015 2:13 PM CDT Subjective: Brednon Aldana is a 65 y.o. male who complains of back pain for several years but recently with lower right back radiating into right groin Positive positional with bending or lifting with radiation. There is no numbness/paresthesia. Precipitating factors: recent heavy lifting. Prior history of problems: recurrent self limited episodes of low back pain in the past. Pain is worsened by physical activity and position Pain is relieved by rest. Quality to pain is described as uncomfortable, aching, burning. Frequency, duration, and intensity are rated by the patient as 7 out of 10 at its worse and 4 out of 10 currently. Negative for other red flags including bowel and bladder problems Review of Systems - General ROS: negative for weight changes, fever Ophthalmic ROS: negative for visual changes Respiratory ROS: negative for cough, shortness of breath Cardiovascular ROS: negative for chest pain or dyspnea on exertion Gastrointestinal ROS: negative for abdominal pain, change in bowel habits. ROS: Negative for urinary symptoms. Musculoskeletal ROS: negative for additional joint pain or swelling than listed above. Neurological ROS: negative for confusion, numbness/tingling or weakness other than listed above. Past Medical/Surgical/Social/Family History reviewed as well as Allergies and Medications Exam: Blood pressure 136/80, pulse 72, temperature 98.4 ??F (36.9 ??C), temperature source Temporal, height 5' 10 (1.778 m), weight 94.348 kg (208 lb). Patient appears to be in mild pain inspection of back is normal (straight without defect), paraspinal tenderness noted left lower lumbar. +ileopsoas tenderness/tightening. No inguinal hernias palpated. No Step Off's or other deformed area noted. Peripheral pulses are palpable. Neuro: Reflexes are symmetrical Straight leg raise: negative Ambulation is without ataxia or antalgia. S1 and S2 normal, no murmurs, clicks, gallops or rubs. Regular rate and rhythm. Chest is clear; no wheezes or rales. Psych: Appropriate. Impression: Plan: Brendon was seen today for back pain. Diagnoses and all orders for this visit: Low back pain without sciatica, unspecified back pain laterality, unspecified chronicity Orders: - POC URINALYSIS DIPSTICK NON AUTOMATED Strain of iliopsoas muscle, unspecified laterality, subsequent encounter Orders: - Generic Referral to Physical Therapy - cyclobenzaprine (FLEXERIL) 10 mg tablet; Take 1 Tablet (10 mg) by mouth nightly as needed for Spasm. Consider Physical Therapy and other studies if not improving. ROM/Exercises/Stretching given Ice, rest prn Call or return to clinic prn if these symptoms worsen or fail to improve as anticipated. Discussed Risks, Benefits and Alternatives of the current treatment regimen. documented in this encounter Plan of Treatment Scheduled Referrals Name Type Priority Associated Diagnoses Orde r Schedule AMB REFERRAL TO PHYSICAL THERAPY Outpatient Referral Routine Strain of iliopsoas muscle, unspecified laterality, subsequent encounter Ordered: 12/10/2015 documented as of this encounter Procedures Procedure Name Priority Date/Time Associated Diagnosis Comments POC URINALYSIS DIPSTICK NON AUTOMATED Routine 12/10/2015 1:57 PM CDT Low back pain without sciatica, unspecified back pain laterality, unspecified chronicity documented in this encounter Results * POC URINALYSIS DIPSTICK NON AUTOMATED (12/10/2015 1:57 PM CDT) COLOR UA Yellow Pale to Dark Yellow [facility] CLARITY UA Clear Clear [facility] SPECIFIC GRAVITY UA 1.025 1.001 - 1.035 [facility] PH UA 5.0 5.0 - 8.0 [facility] LEUKOCYTE ESTERASE UA Negative Negative [facility] NITRITE UA Negative Negative [facility] PROTEIN UA Negative Negative [facility] GLUCOSE UA Negative Negative [facility] KETONES UA Negative Negative [facility] UROBILINOGEN UA Normal <2.0 mg/dL [facility] BILIRUBIN UA Negative Negative [facility] BLOOD UA Negative Negative [facility] Urine specimen (specimen) 12/10/2015 1:57 PM CDT Ciro Fernandez DO POINT OF CARE ISIAH Anand [facility] documented in this encounter Visit Diagnoses Diagnosis Low back pain without sciatica, unspecified back pain laterality, unspecified chronicity- Primary Strain of iliopsoas muscle, unspecified laterality, subsequent encounter documented in this encounter
--- OUTSIDE RECORDS SUMMARY | 2024-08-19 06:44 | XMS_ITS | Encounter Summary ---
Author Organization [facility] Address [address] [place] [address] Care Team Providers Care Parachute Supervisor Name Role Phone Unavailable Primary Care Provider Unavailabl e Reason for Visit * Reason Onset Date Comments Results 04/06/2016 Encounter Details Date Type Department Care Team (Late st Contact Info) Description 04/06/2016 Telephone [facility] Family Medicine - [facility] [address] [facility] [address] [place] [address] Ciro Fernandez, DO [address] [facility] [address] [place] [address] Results Social History Tobacco Use [...] * Telephone Encounter - Jennifer Burnett - 04/06/2016 4:24 PM CDT PT INFORMED/SB * Telephone Encounter - Jennifer Burnett - 04/06/2016 4:24 PM CDT ----- Message from Courtney Weeks PA-C sent at 04/06/2016 4:13 PM CDT ----- Have patient make appt for follow-up of labs and meds documented in this encounter Plan of Treatment Not on file documented as of this encounter Visit Diagnoses Not on filedocumented in this encounter
--- OUTSIDE RECORDS SUMMARY | 2024-08-19 06:44 | XMS_ITS | Encounter Summary ---
Author Organization [facility] Address [address] [place] [address] Care Team Providers Care Mine Superintendent Name Role Phone Unavailable Primary Care Provider Unavailabl e Reason for Visit * Reason Onset Date Comments Medication Refill 12/19/2014 Encounter Details Date Type Department Care Team (Late st Contact Info) Description 12/19/2014 Telephone [facility] Family Medicine - [facility] [address] [facility] [address] [place] [address] Ciro Fernandez, DO [address] [facility] [address] [place] [address] Medication Refill Social History Tobacco Use Types Packs/Day Years [...] Telephone Encounter - Kay Jesus CMA - 12/19/2014 12:02 PM CDT Script sent. Last Office note faxed per dr Fernandez. * Telephone Encounter - Georgie Burnettah Osmar - 12/19/2014 10:07 AM CDT PT ALSO STATES DR CLINE OFFICE NEEDS NOTATION ON WHAT DR FERNANDEZ RECOMMENDS HE HAVE DONE (ENT OFFICE) HE HAS APPT Wednesday12/24/14 * Telephone Encounter - Cristela Herman RN - 12/19/2014 8:16 AM CDT Pt states at his OV on 12/14/14, he discussed with Dr Fernandez that he needs a refill of cream for his face - he thinks it was for Rosacea. Pt states it was last prescribed a few years ago, pt has not been using it as often as it was prescribed. See OV 07/26/12. Please send rx to pharmacy, let pt know if any problems. documented in this encounter Plan of Treatment Not on file documented as of this encounter Visit Diagnoses Diagnosis Rosacea- Primary documented in this encounter
--- OUTSIDE RECORDS SUMMARY | 2024-08-19 06:44 | XMS_ITS | Encounter Summary ---
Author Organization [facility] Address [address] [place] [address] Care Team Providers Care Ring Barker Operator Name Role Phone Unavailable Primary Care Provider Unavailabl e Reason for Visit * Reason Onset Date Comments Results 12/25/2014 Encounter Details Date Type Department Care Team ([facility] st Contact Info) Description 12/25/2014 Telephone [facility] Family Medicine - [facility] [address] [facility] [address] [place] [address] Ciro Fernandez DO [address] [facility] [address] [place] [address] Results Social History Tobacco Use [...] encounter Miscellaneous Notes * Telephone Encounter - Fabian Sierra CMA - 12/25/2014 9:59 AM CDT Spoke with patient letting him know his testosterone levels. * Telephone Encounter - Fabian Sierra CMA - 12/25/2014 9:55 AM CDT ----- Message from Ciro Fernandez DO sent at 12/24/2014 8:23 PM CDT ----- Testosterone levels are normal. documented in this encounter Plan of Treatment Not on file documented as of this encounter Visit Diagnoses Not on filedocumented in this encounter
--- OUTSIDE RECORDS SUMMARY | 2024-08-19 06:44 | XMS_ITS | Encounter Summary ---
Author Organization [facility] Address [address] [place] [address] Care Team Providers Care Poem Writer Name Role Phone Unavailable Primary Care Provider Unavailabl e Reason for Visit * Reason Comments Hypertension Chol; Follow up on l abs and meds. Encounter Details Date Type Department Care Team (Late st Contact Info) Description 11/10/2016 2:30 PM CDT Office Visit [facility] Medicine - [facility] Lilia Yuan [address] [place] [address] Ciro Fernandez, DO [address] [facility] [address] [place] [address] Essential hypertension, benign (Primary Dx); Pure hypercholesterolemia; Pre-diabetes; Vitamin D deficiency Social History Tobacco Use Types Packs/Day Years [...] Reading Time Taken Comments Blood Pressure 132/76 11/10/2016 1:18 PM CDT Pulse 72 11/10/2016 1:18 PM CDT Temperature 36.3 ??C (97.3 ??F) 11/10/2016 1:18 PM CD T Respiratory Rate - - Oxygen Saturation - - Inhaled Oxygen Concentration - - Weight 95.7 kg (211 lb) 11/10/2016 1:18 PM CDT Height 180.3 cm (5' 11 ) 11/10/2016 1:18 PM CDT Body Mass Index 29.43 11/10/2016 1:18 PM CDT documented in this encounter Progress Notes * Ciro Fernandez, - 11/10/2016 2:18 PM CDT SUBJECTIVE: Brendon Aldana is a 66 y.o. male here to discuss medical issues [...] prevention strategies. Last labs reviewed with patient. Impaired Fasting Glucose: Current medication(s) reviewed. Patient understands diagnosis Blood [...] prevention strategies. Last labs reviewed with patient. Vitamin D Deficiency: This is a follow up of a pre-existing problem. He is taking OTC Vitamin D supplement. He is not currently taking Vitamin D prescription medicine. The patient has felt better with supplementation. Past Medical/Surgical/Social/Family History reviewed as well as [...] rashes or unusual skin lesions noted OBJECTIVE: Visit Vitals ??? BP 132/76 ??? Pulse 72 ??? Temp 97.3 ??F (36.3 ??C) (Temporal) ??? Ht 5' 11 (1.803 m) ??? Wt 95.7 kg (211 lb) ??? BMI 29.43 kg/m2 Appearance: alert, well appearing, and in no [...] edema Neuro: Normal deep tendon reflexes. Psych: Alaina Olivas was seen today for hypertension. Diagnoses and associated orders for this visit: Essential hypertension, benign - LIPID PANEL; Future - COMPREHENSIVE METABOLIC PANEL; Future - PROTEIN , RANDOM URINE; Future Continue with losartan Pure hypercholesterolemia - LIPID PANEL; Future - COMPREHENSIVE METABOLIC PANEL; Future Zocor CoQ10 IFG (impaired fasting glucose) - COMPREHENSIVE METABOLIC PANEL (Favorites); Future Continue with good nutrition including low carbohydrate intake and Increase your aerobic exercise to 30 minutes continuous 5 times per week. Vitamin D deficiency - VITAMIN D 25 HYDROXY; Future - OTC Vit D Check BP on a regular basis and report highs and lows. Discussed Risks, Benefits and Alternatives of the current treatment regimen. F/u in 6 months documented in this encounter Miscellaneous Notes * Addendum Note - Mir Martinez - 11/10/2016 2:30 PM CDTAddended by: MIR MARTINEZ on: 09/14/2017 10:31 AM Modules accepted: Orders [facility] documented in this encounter Plan of Treatment Not on file documented as of this encounter Procedures Procedure Name Priority Date/Time Associated Diagnosis Comments MICROALBUMIN/CREATININ E RATIO, RANDOM UR Routine 09/25/2017 2:03 AM [facility] VITAMIN D 25 HYDROXY Routine 09/25/2017 2:03 AM [facility] LIPID PANEL Routine 09/25/2017 2:03 AM [facility] COMPREHENSIVE METABOLIC PANEL Routine 09/25/2017 2:03 AM [facility] documented in this encounter Results * VITAMIN D 25 HYDROXY (09/25/2017 2:03 AM [facility]) VITAMIN D, 25 OH, TOTAL 37 30 - 100 ng/mL Wilshire Axon [facility] Comment: Vitamin D Status ? 25-OH Vitamin D: Deficiency: ?<20 ng/mL Insufficiency: ? 20 - 29 ng/mL Optimal: ? > or = 30 ng/mL For 25-OH Vitamin D testing on patients on D2-supplementation and patients for whom quantitation of D2 and D3 fractions is required, the QuestAssureD() 25-OH VIT D, (D2,D3), LC/MS/MS is recommended: order code 13334 (patients >2yrs). For more information on this test, go to: http://education.D2S/faq/HVI062 (This link is being provided for informational/educational purposes only.) FASTING:YES FASTING: YES Test Performed at: [facility] [address] [place], [place] ??[phone] Agus Valente D.O., MPH 09/25/2017 2:03 AM [facility] Ciro Fernandez DO CHEMISTRY ORDERABLES Performing Organization Address City/State/[facility] Co de Phone Number [facility] [address] [place] [address] * COMPREHENSIVE METABOLIC PANEL (09/25/2017 2:03 AM [facility]) GLUCOSE 99 65 - 99 mg/dL [facility] Comment:Fasting reference in terval BUN 16 7 - 25 mg/dL [facility] CREATININE 0.76 0.70 - 1.25 mg/dL [facility] Comment: For patients >49 years of age, the reference limit for Creatinine is approximately 13% higher for people identified as -Zimbabwean. GFR 96 > OR = 60 mL/min/1 .73m2 [facility] GFR, 111 > OR = 60 mL/min/1 .73m2 [facility] BUN/CREAT RATIO NOT APPLICABLE 6 - 22 (calc) [facility] SODIUM 141 135 - 146 mmol/L [facility] POTASSIUM 4.3 3.5 - 5.3 mmol/L [facility] [employer] . [facility] CHLORIDE 106 98 - 110 mmol/L [facility] [employer] . [facility] CO2 27 20 - 31 mmol/L [facility] CALCIUM 9.2 8.6 - 10.3 mg/dL [facility] TOTAL PROTEIN 6.8 6.1 - 8.1 g/dL [facility] ALBUMIN 4.0 3.6 - 5.1 g/dL [facility]. [facility] GLOBULIN 2.8 1.9 - 3.7 g/dL (calc) [facility] ALBUMIN/GLOBULIN RATIO 1.4 1.0 - 2.5 (calc) [facility] BILIRUBIN TOTAL 1.0 0.2 - 1.2 mg/dL [facility] ALKALINE PHOSPHATASE 64 40 - 115 U/L [facility] AST 23 10 - 35 U/L [facility] [employer] [facility] ALT 34 9 - 46 U/L [facility] [employer] [facility] Comment: Test Performed at: [facility] [address] [place] ??[phone] Agus Valente D.O., MPH 09/25/2017 2:03 AM [facility] Ciro Fernandez DO CHEMISTRY ORDERABLES Performing Organization Address City/[facility]/ZIP Co de Phone Number [employer] [facility] [address] [place] [address] * LIPID PANEL (09/25/2017 2:03 AM [facility]) Pathologist [facility] CHOLESTEROL 125 <200 mg/dL [facility] HDL 41 >40 mg/dL [employer] [facility] TRIGLYCERIDE 90 <150 mg/dL Wilshire Axon [facility] LDL CALCULATED 67 mg/dL (calc) [facility] [employer] [facility] Comment: Reference range: <100 Desirable range <100 mg/dL for patients with CHD or diabetes and <70 mg/dL for diabetic patients with known heart disease. LDL-C is now calculated using the Steve calculation, which is a validated novel method providing better accuracy than the Friedewald equation in the estimation of LDL-C. Michele SS et al. JACIEL. 2013;310(19): 9958-5079 (http://education.BoldIQ/faq/HHZ195) CHOL/HDL RATIO 3.0 <5.0 (calc) [facility] TOTAL NON-HDL CHOL(LDL+VLDL) 84 <130 mg/dL (calc) [facility] Comment: For patients with diabetes plus 1 major ASCVD risk factor, treating to a non-HDL-C goal of <100 mg/dL (LDL-C of <70 mg/dL) is considered a therapeutic option. Test Performed at: [facility] ??[phone] Agus Valente D.O., MPH 09/25/2017 2:03 AM [facility] Ciro Fernandez DO CHEMISTRY ORDERABLES Performing Organization Address [facility] Co de Phone Number Wilshire Axon [facility] [address] [place] [address] * MICROALBUMIN/CREATININE RATIO, RANDOM UR (09/25/2017 2:03 AM [facility]) Pathologist [facility] Creatinine, Urine 95 20 - 370 mg/dL Wilshire Axon [facility] MICROALBUMIN, URINE 0.4 See Note: mg/dL [facility] Comment: Reference Range: Reference Range Not established MICROALBUMIN/CREAT RATIO, UR 4 <30 mcg/mg creat Wilshire Axon [facility] Comment: The ADA defines abnormalities in albumin excretion as follows: Category ? Result (mcg/mg creatinine) Normal ?<30 Microalbuminuria ? 30-299 Clinical albuminuria ?? > OR = 300 The ADA recommends that at least two of three specimens collected within a 3-6 month period be abnormal before considering a patient to be within a diagnostic category. Test Performed at: [facility] [address] [place], [place] ??[address] Agus Valente D.O., MPH 09/25/2017 2:03 AM [facility] Ciro Fernandez DO URINE ORDERABLES Performing Organization Address City/State/[facility] Co de Phone Number Wilshire Axon [facility] [address] [place] [address] documented in this encounter Visit Diagnoses Diagnosis Essential hypertension, benign- Primary Pure hypercholesterolemia Pre-diabetes Other abnormal glucose Vitamin D deficiency Unspecified vitamin D deficiency documented in this encounter
--- OUTSIDE RECORDS SUMMARY | 2024-08-19 06:44 | XMS_ITS | Encounter Summary ---
Author Organization [facility] Address [address] [place] [address] Care Team Providers Care Operator Supply Name Role Phone Unavailable Primary Care Provider Unavailabl e Reason for Visit * Reason Onset Date Comments Medication Refill 10/07/2015 Encounter Details Date Type Department Care Team (Late st Contact Info) Description 10/07/2015 Refill [facility] Family Medicine - [facility] [address] [facility] [address] [place] [address] Ciro Fernandez DO [address] [facility] [address] [place] [address] Social History Tobacco Use Types [...] Notes * Telephone Encounter - Kay Jesus [facility] - 10/07/2015 2:10 PM CSTFrom: Brendon Aldana To: Ciro Fernandez DO Sent: 10/07/2015 1:04 PM INFORMATION TECHNOLOGY COORDINATOR Subject: Medication Renewal Request Original authorizing provider: DO Brendon Tom would like a refill of the following medications: losartan (COZAAR) 50 mg tablet [Ciro Fernandez DO] Preferred pharmacy: [facility] - [address] Comment: I also need a refill for fluticasone propionate nasal spray 50 mcg. Both Rx must be written as a Rx [facility]. Thank you. RMATION TECHNOLOGY COORDINATOR documented in this encounter Plan of Treatment Not on file documented as of this encounter Visit Diagnoses Not on filedocumented in this encounter
--- OUTSIDE RECORDS SUMMARY | 2024-08-19 06:44 | XMS_ITS | Encounter Summary ---
Author Organization [facility] Address [address] [place] [address] Care Team Providers Care Rubber Tubing Splicer Name Role Phone Unavailable Primary Care Provider Unavailabl e Reason for Visit * Reason Onset Date Comments Medication Refill 01/11/2016 Encounter Details Date Type Department Care Team (Late st Contact Info) Description 01/13/2016 Refill [facility] Family Medicine - [facility] [address] [facility] [address] [place] [address] Ciro Fernandez DO [address] [facility] [address] [place] [address] Pure hypercholesterolemia Social History Tobacco [...] Notes * Telephone Encounter - Kay Jesus [facility] - 01/13/2016 8:11 AM CDTFrom: Brendon Aldana To: Ciro Fernandez DO Sent: 01/11/2016 3:49 PM CDT Subject: Medication Renewal Request Original authorizing provider: DO Brendon Tom would like a refill of the following medications: simvastatin (ZOCOR) 40 mg tablet [Ciro Fernandez DO] Preferred pharmacy: [facility] - [place], [place] - [address] [place] [address] Comment: Rx must be written as a 90 day Rx and sent to [facility]. documented in this encounter Plan of Treatment Not on file documented as of this encounter Visit Diagnoses Diagnosis Pure hypercholesterolemia documented in this encounter
--- OUTSIDE RECORDS SUMMARY | 2024-08-19 06:44 | XMS_ITS | Encounter Summary ---
Author Organization [facility] Address [address] [place] [address] Care Team Providers Care Banana Ripening Room Supervisor Name Role Phone Unavailable Primary Care Provider Unavailabl e Reason for Visit * Reason Onset Date Comments Medication Refill 12/31/2016 Encounter Details Date Type Department Care Team (Late st Contact Info) Description 01/01/[address] [facility] Family [facility] - [facility] Abundio Yuan [address] [facility] [address] [place] [address] Ciro Fernandez DO [address] [facility] [address] [place] [address] Pure hypercholesterolemia Social History Tobacco [...] Telephone Encounter - Kay Jesus CMA - 01/01/2017 7:55 AM CDTFrom: Brendon Aldana To: Ciro Fernandez DO Sent: 12/31/2016 7:21 PM CDT Subject: Medication Renewal Request Original authorizing provider: DO Brendon Tom would like a refill of the following medications: simvastatin (ZOCOR) 40 mg tablet [Ciro Fernandez DO] Preferred pharmacy: [facility] - [address] Delivery method: Pickup Comment: Rx must be written as a 90 day rx and sent to [facility]. Thank you. documented in this encounter Plan of Treatment Not on file documented as of this encounter Visit Diagnoses Diagnosis Pure hypercholesterolemia documented in this encounter
--- OUTSIDE RECORDS SUMMARY | 2024-08-19 06:44 | XMS_ITS | Encounter Summary ---
Author Organization [facility] Address [address] [place] [address] Care Team Providers Care Can Top Setter Name Role Phone Unavailable Primary Care Provider Unavailabl e Reason for Visit * Reason Onset Date Comments Medication Refill 06/22/2015 Encounter Details Date Type Department Care Team (Late st Contact Info) Description 06/22/2015 Refill [facility] Family Medicine - [facility] [address] [facility] [address] [place] [address] Ciro Fernandez DO [address] [facility] [address] [place] [address] Pure hypercholesterolemia Social History Tobacco [...] Miscellaneous Notes * Telephone Encounter - Kay Jesus, [facility] - 06/23/2015 9:10 PM CSTFrom: Brendon Aldana To: Ciro Fernandez DO Sent: 06/22/2015 9:47 AM 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
--- OUTSIDE RECORDS SUMMARY | 2024-08-19 06:44 | XMS_ITS | Encounter Summary ---
Author Organization [facility] Address [address] [place] [address] Care Team Providers Care Psychiatry Resident Name Role Phone Unavailable Primary Care Provider Unavailabl e Reason for Visit * Reason Onset Date Comments Medication Refill 09/10/2016 Encounter Details Date Type Department Care Team (Late st Contact Info) Description 09/10/2016 Refill [facility] Family Medicine - Bushra Yuan [address] [facility] [address] [place] [address] Ciro Fernandez, DO [address] [facility] [address] [place] [address] Social History Tobacco Use Types [...] Date/Time Associated Diagnosis Comments LIPID PANEL Routine 10/03/2016 7:33 AM WIND TURBINE MECHANIC COMPREHENSIVE METABOLIC PANEL Routine 10/03/2016 7:33 AM WIND TURBINE MECHANIC documented in this encounter Results * (ABNORMAL) COMPREHENSIVE METABOLIC PANEL (10/03/2016 7:33 AM WIND TURBINE MECHANIC) GLUCOSE 102(H) 65 - 99 mg/dL [facility] Comment:Fasting reference in terval BUN 20 7 - 25 mg/dL [facility] CREATININE 0.89 0.70 - 1.25 mg/dL [facility] Comment: For patients >49 years of age, the reference limit for Creatinine is approximately 13% higher for people identified as -Cymraes. GFR 90 > OR = 60 mL/min/1 .73m2 [facility] GFR, 105 > OR = 60 mL/min/1 .73m2 [facility] BUN/CREAT RATIO NOT APPLICABLE 6 - 22 (calc) [facility] SODIUM 139 135 - 146 mmol/L [facility] . [facility] POTASSIUM 4.5 3.5 - 5.3 mmol/L [facility] . [facility] CHLORIDE 104 98 - 110 mmol/L [facility] . [place] CO2 28 20 - 31 mmol/L [facility] . [place] CALCIUM 9.7 8.6 - 10.3 mg/dL [facility] TOTAL PROTEIN 7.4 6.1 - 8.1 g/dL [facility] Clerk [facility] ALBUMIN 4.5 3.6 - 5.1 g/dL [facility] Clerk [facility] GLOBULIN 2.9 1.9 - 3.7 g/dL (calc) [facility] ALBUMIN/GLOBULIN RATIO 1.6 1.0 - 2.5 (calc) [facility] Clerk [facility] BILIRUBIN TOTAL 1.1 0.2 - 1.2 mg/dL [facility] Clerk [facility] ALKALINE PHOSPHATASE 64 40 - 115 U/L [facility] AST 23 10 - 35 U/L [facility] ALT 34 9 - 46 U/L [facility] Comment: REPORT COMMENT: FASTING:YES Test Performed at: [facility] [address] ??[phone] MINO ZAMAN DO,MPH 10/03/2016 7:33 AM WIND TURBINE MECHANIC Ciro Fernandez DO CHEMISTRY ORDERABLES [facility] . [place] [address] [place] [address] * LIPID PANEL (10/03/2016 7:33 AM WIND TURBINE MECHANIC) CHOLESTEROL 135 125 - 200 mg/dL [facility] . [facility] HDL 43 > OR = 40 mg/dL [facility] TRIGLYCERIDE 98 <150 mg/dL [facility] LDL CALCULATED 72 <130 mg/dL (calc) [facility] Comment: Desirable range <100 mg/dL for patients with CHD or diabetes and <70 mg/dL for diabetic patients with known heart disease. CHOL/HDL RATIO 3.1 < OR = 5.0 (calc) [facility] TOTAL NON-HDL CHOL(LDL+VLDL) 92 mg/dL (calc) [facility] Comment: Target for non-HDL cholesterol is 30 mg/dL higher than LDL cholesterol target. Test Performed at: [facility] [address] [place], [place] ??[address] MINO ZAMAN DO,MPH 10/03/2016 7:33 AM WIND TURBINE MECHANIC Ciro Fernandez DO CHEMISTRY ORDERABLES [facility] [address] [place] [address] documented in this encounter Visit Diagnoses Not on filedocumented in this encounter
--- OUTSIDE RECORDS SUMMARY | 2024-08-19 06:44 | XMS_ITS | Encounter Summary ---
Author Organization [facility] Address [address] [place] [address] Care Team Providers Care Wedding Transportation Driver Name Role Phone Unavailable Primary Care Provider Unavailabl e Reason for Visit * Reason Comments Groin Pain right Encounter Details Date Type Department Care Team (Late st Contact Info) Description 10/14/2015 4:00 PM [employer] DRIVER Office Visit [facility] Medicine - [facility] [address] [facility] [address] [place] [address] Ciro Fernandez, DO [address] [facility] [address] [place] [address] Groin pain, right (Primary Dx); Groin strain, initial encounter; Right epididymitis Social History Tobacco Use Types Packs/Day Years [...] Reading Time Taken Comments Blood Pressure 136/80 10/14/2015 3:51 PM [employer] DRIVER Pulse 72 10/14/2015 3:51 PM [employer] DRIVER Temperature 36.7 ??C (98.1 ??F) 10/14/2015 3:51 PM CS T Respiratory Rate - - Oxygen Saturation - - Inhaled Oxygen Concentration - - Weight 95.3 kg (210 lb) 10/14/2015 3:51 PM [employer] DR[employer] Height 177.8 cm (5' 10 ) 10/14/2015 3:51 PM [employer] DRIVER Body Mass Index 30.13 10/14/2015 3:51 PM [employer] DRIVER documented in this encounter Progress Notes * Ciro Fernandez, DO - 10/14/2015 5:33 PM CST 65 y.o. male presents with right scrotal pain for the last several days. Worse with activity. Negative urinary frequency. Negative dysuria Negative abnormal ejaculate Negative gross hematuria. Negative fever Negative back pain. The patient has not had infection/disease in the past. Review of Systems - General ROS: negative for weight changes, fever Respiratory ROS: negative for cough, shortness of breath, or wheezing Cardiovascular ROS: negative for chest pain, heart palpitations or dyspnea on exertion Gastrointestinal ROS: negative for abdominal pain, change in bowel habits, or black or bloody stools. Musculoskeletal ROS: negative for back pain, neck pain or joint pain or swelling Neurological ROS: negative for confusion, numbness/tingling or weakness Past Medical/Surgical/Social/Family History reviewed as well as Allergies and Medications. Blood pressure 136/80, pulse 72, temperature 98.1 ??F (36.7 ??C), temperature source Temporal, height 5' 10 (1.778 m), weight 95.255 kg (210 lb). Gen'l: No apparent distress CV: RRR without murmurs Lungs: CTA B/L HEENT: No lymph nodes palpable Back: Negative flank pain GI: No suprapubic tenderness noted Abdomen: Soft, otherwise non-tender and non-distended, normal bowel sounds. No hepatosplenomegaly.Nonacute abdomen. : right epididymal tenderness, left larger than right varicoceles, Slight inguinal hernia on the right, otherwise Genitals normal; both testes normal without tenderness, masses, erythema or swelling. Shaft normal, circumcised, meatus normal without discharge. No inguinal lymphadenopathy. Skin: No rash or petechiae Urine dipstick findings: negative for all components A/P: Brendon was seen today for groin pain. Diagnoses and all orders for this visit: Groin pain, right Orders: - POC URINALYSIS DIPSTICK NON AUTOMATED Groin strain, initial encounter Right epididymitis Orders: - levofloxacin (LEVAQUIN) 500 mg tablet; Take 1 Tablet (500 mg) by mouth daily for 10 days. Increase Fluids Tylenol/Aleve as needed Per diagnosis/orders Discussed Risks, Benefits and Alternatives of the current treatment regimen. Call or return to clinic prn if these symptoms worsen or fail to improve as anticipated. [employer] DRIVER documented in this encounter Plan of Treatment Not on file documented as of this encounter Procedures Procedure Name Priority Date/Time Associated Diagnosis Comments POC URINALYSIS DIPSTICK NON AUTOMATED Routine 10/14/2015 4:17 PM [employer] DRIVER Groin pain, right documented in this encounter Results * POC URINALYSIS DIPSTICK NON AUTOMATED (10/14/2015 4:17 PM [employer] DRIVER) COLOR UA Yellow Pale to Dark Yellow [facility] CLARITY UA Clear Clear [facility] SPECIFIC GRAVITY UA 1.015 1.001 - 1.035 [facility] PH UA 7.0 5.0 - 8.0 [facility] LEUKOCYTE [...] Negative [facility] Urine specimen (specimen) 10/14/2015 4:17 PM [employer] DRIVER Ciro Fernandez DO POINT OF CARE TESTIN G [facility] documented in this encounter Visit Diagnoses Diagnosis Groin pain, right- Primary Groin strain, initial encounter Right epididymitis Orchitis and epididymitis, unspecified documented in this encounter
--- OUTSIDE RECORDS SUMMARY | 2024-08-19 06:44 | XMS_ITS | Encounter Summary ---
Author Organization [facility] Address [address] [place] [address] Care Team Providers Care Media Theorist And Author Of Name Role Phone Unavailable Primary Care Provider Unavailabl e Reason for Visit * Reason Onset Date Comments Medication Problem 06/22/2017 Encounter Details Date Type Department Care Team (Late st Contact Info) Description 06/22/2017 Telephone [facility] Family Medicine - [facility] [address] [facility] [address] [place] [address] Ciro Fernandez, DO [address] [facility] [address] [place] [address] Medication Problem Social History Tobacco [...] * Telephone Encounter - Cristela Herman - 06/22/2017 4:04 PM CST Pt and pharmacy notified. HT SERVICE SPECIALIST * Telephone Encounter - Edna Jackson RMA - 06/22/2017 3:56 PM CST Courtney approved. HT SERVICE SPECIALIST * Telephone Encounter - Cristela Herman - 06/22/2017 3:54 PM CST Pt called the office - he is leaving to go out of town on 06/26/17 and will not be back until 07/04/17 - he will run out of med while out of town. Pt does take Zyrtec D BID. Okay for early refill? Let pt and pharmacy know. HT SERVICE SPECIALIST * Telephone Encounter - Cristela Herman - 06/22/2017 3:40 PM CST Pharmacy called stating pt is requesting an early refill of Zyrtec D - last fill 05/24/17 for #72 -36 day supply. Next refill is not due until 06/29/17. I notified pharmacy that we will need to speak with pt first before we can advise on early refill request and requested they have pt call the office. I have attempted to contact this patient by phone with the following results: no answer - voicemailnot set up. HT SERVICE SPECIALIST documented in this encounter Plan of Treatment Not on file documented as of this encounter Visit Diagnoses Not on filedocumented in this encounter
--- OUTSIDE RECORDS SUMMARY | 2024-08-19 06:44 | XMS_ITS | Encounter Summary ---
Author Organization [facility] Address [address] [place] [address] Care Team Providers Care Division Sales Manager Name Role Phone Unavailable Primary Care Provider Unavailabl e Reason for Visit * Reason Comments Procedure Lesion removal on L scalp. Encounter Details Date Type Department Care Team (Latest Contact Info) Description 03/27/2016 1:00 PM CDT Procedure visit [facility] Medicine - [facility] [address] [facility] [address] [place] [address] Ciro Fernandez, DO [address] [facility] [address] [place] [address] Neoplasm of uncertain behavior (Primary Dx); Benign neoplasm of skin of face Social History Tobacco Use Types Packs/Day Years [...] Reading Time Taken Comments Blood Pressure 124/68 03/27/2016 1:07 PM CDT Pulse 76 03/27/2016 1:07 PM CDT Temperature 36.9 ??C (98.5 ??F) 03/27/2016 1:07 PM CD T Respiratory Rate - - Oxygen Saturation - - Inhaled Oxygen Concentration - - Weight 93.9 kg (207 lb) 03/27/2016 1:07 PM CDT Height 180.3 cm (5' 11 ) 03/27/2016 1:07 PM CDT Body Mass Index 28.87 03/27/2016 1:07 PM CDT documented in this encounter Progress Notes * Ciro Fernandez, DO - 03/27/2016 1:11 PM CDT SUBJECTIVE: Brendon Aldana is a 66 y.o. male who presents for lesion removal. We have discussed this procedure, including option of not performing surgery, technique of surgery and potential for scarring today. Left scalp. The lesion was noticed several years ago Lesion has changed in a few months. Symptoms associated with the lesion are: increasing diameter, increasing thickness. Patient denies itching, drainage, infection. Also with right nose skin lesion growing and itching. OBJECTIVE: Patient appears well. Blood pressure 124/68, pulse 76, temperature 98.5 ??F (36.9 ??C), temperature source Temporal, height 5' 11 (1.803 m), weight 93.895 kg (207 lb). Skin: Lesion Location: left scalp Color: pink Diameter: 4 cm. Border/Symmetry: elevated, symmetrical, irregular surface. Inflammation: absent +right nose brown kvng keratosis. S1 and S2 normal, no murmurs, clicks, gallops or rubs. Regular rate and rhythm. Chest is clear; no wheezes or rales. Psych: Appropriate. ASSESSMENT/PLAN: Brendon was seen today for procedure. Diagnoses and all orders for this visit: Neoplasm of uncertain behavior - PATHOLOGY; Future - VA BIOPSY OF SKIN LESION Benign neoplasm of skin of face - VA EXC SKIN BENIG 0.6-1CM FACE,FACIAL Discussed Risks, Benefits and Alternatives of the current treatment regimen. Call or return to the office if these symptoms worsen or fail to improve as anticipated. PROCEDURE: After informed consent was obtained: Site: left scalp. Using betadine and alcohol for cleansing and Lidocaine (XYLOCAINE) 1% with Epinephrine 1:100,000 for anesthetic, with sterile technique, punch biopsy size 3 mm was performed. The procedure was well tolerated without complications. Antibiotic dressing is applied, and wound care instructions provided. Be alert for any signs of cutaneous infection. Follow up: the specimen is labeled and sent to pathology for evaluation, the patient may return prn. Addition lesion, site: right nare Using betadine and alcohol for cleansing and Lidocaine (XYLOCAINE) 1% with Epinephrine 1:100,000 for anesthetic, with sterile technique, shave excision was performed. Antibiotic dressing is applied. The procedure was well tolerated without complications. documented in this encounter Plan of Treatment Not on file documented as of this encounter Results * PATHOLOGY (03/27/2016 1:10 PM CDT) CASE REPORT Surgical Pathology Report ? Case: [id number] ? Authorizing Provider: ??Ciro Fernandez DO ?Collected: ? 03/27/2016 01:10 PM ? Ordering Location: ? [facility] ?? Received: ?03/28/2016 07:15 AM ? Services [facility] ? Pathologist: ? Landry Klein MD ? Specimen: ?Skin, left side of the scalp ? 03/30/2016 3:04 PM CDT expressor software [facility] FINAL DIAGNOSIS Skin, left side of scalp, punch biopsy: - Seborrheic keratosis, inflamed. 03/30/2016 3:04 PM [facility] IMEN DESCRIPTION Left side of the skull. 03/30/2016 3:04 PM [facility] OPERATIVE PROCEDURE Punch biopsy. 03/30/2016 3:04 PM [facility] CLINICAL DIAGNOSIS Neoplasm of uncertain behavior. 03/30/2016 3:04 PM [facility] GROSS DESCRIPTION The specimen is received labeled as Brendon Aldana, alpesh, left side of the scalp. It consists of one fragment of skin with papillary structures, measuring 0.3 x 0.2 x 0.2 cm. The specimen is inked blue on the deep margin. The specimen is bisected and submitted in toto in one cassette A1. X/stoney 03/30/2016 3:04 PM [facility] MICROSCOPIC DESCRIPTION The slides are labeled [id number] and Brendon Aldana. The left side of scalp punch biopsy demonstrates an acanthotic lesion with papillomatosis and hyperkeratosis. There is a band-like lymphocytic infiltrate with associated basal vacuolar l alterations and dyskeratotic keratinocytes. 03/30/2016 3:04 PM [facility] COMMENT Special stain and/or immunohistochemical results are interpreted with controls that demonstrate appropriate staining reactions. Note on use of immunocytochemistry reagents: This test was developed and its performance characteristic determined by [facility], Department of Laboratory Medicine. It has not been cleared or approved by the U.S. Food and Drug Administration. The FDA has determined that such clearance or approval is not necessary. The test is used for clinical purpose. It should not be regarded as investigational or for research. This laboratory is certified to perform high complexity testing. Case types starting with WS, WF, WB and WH are performed by [address], [address]. All other case types are performed by [address] [facility], [address]. 03/30/2016 3:04 PM [facility] Tissue TISSUE SPECIMEN FROM SKIN / Unknown 03/27/2016 1:10 PM CDT 03/28/2016 7:15 AM CDT Ciro Fernandez DO PATHOLOGY/CYTOLOGY O RDERABLES Performing Organization Address [facility] Co de Phone Number [facility]# [id number] [address] [facility] [address] documented in this encounter Visit Diagnoses Diagnosis Neoplasm of uncertain behavior- Primary Neoplasm of uncertain behavior, site unspecified Benign neoplasm of skin of face Benign neoplasm of skin of other and unspecified parts of face documented in this encounter
--- OUTSIDE RECORDS SUMMARY | 2024-08-19 06:44 | XMS_ITS | Encounter Summary ---
Author Organization [facility] Address [address] [place] [address] Care Team Providers Care Acute Care Physician Name Role Phone Unavailable Primary Care Provider Unavailabl e Reason for Visit * Reason Onset Date Comments Medication Refill 04/21/2017 Encounter Details Date Type Department Care Team (Late st Contact Info) Description 04/21/2017 Refill [facility] Family Medicine - [facility] Abundio Yuan [address] [facility] [address] [place] [address] Ciro Fernandez DO [address] [facility] [address] [place] [address] Social History Tobacco Use Types [...] Telephone Encounter - Kay Jesus N - 04/21/2017 8:43 AM CDTFrom: Brendon Aldana To: Ciro Fernandez DO Sent: 04/21/2017 6:52 AM CDT Subject: Medication Renewal Request Original authorizing provider: DO Brendon Tom would like a refill of the following medications: losartan (COZAAR) 50 mg tablet [Ciro Fernandez DO] Preferred pharmacy: [facility] - [address] Delivery method: Pickup Comment: Rx needs to be written as a 90 day rx and sent to [facility]. Thank you. documented in this encounter Plan of Treatment Not on file documented as of this encounter Visit Diagnoses Not on filedocumented in this encounter
--- OUTSIDE RECORDS SUMMARY | 2024-08-19 06:44 | XMS_ITS | Encounter Summary ---
Author Organization [facility] Address [address] [place] [address] Care Team Providers Care Tube Maker Name Role Phone Unavailable Primary Care Provider Unavailabl e Reason for Visit * Reason Onset Date Comments Results 03/31/2016 Pathology Encounter Details Date Type Department Care Team (Late st Contact Info) Description 03/31/2016 Telephone [facility] Medicine - [facility] Abundio Yuan [address] [facility] [address] [place] [address] Ciro Fernandez DO [address] [facility] [address] [place] [address] Results (Pathology) Social History Tobacco Use Types Packs/Day Years [...] Notes * Telephone Encounter - Edna Jackson - 03/31/2016 9:51 AM CDT Patient informed of the pathology results. He will call the office to make a procedure appointment for Cryo once he looks at his schedule. * Telephone Encounter - Edna Jackson - 03/31/2016 9:47 AM CDT ----- Message from Ciro Fernandez DO sent at 03/30/2016 5:19 PM CDT ----- Pathology of the biopsy of your scalp showed an inflamed seborrheic keratosis. This is benign and something that we can use liquid nitrogen to help control the growth. If you would like that done, please return for cryodessication. documented in this encounter Plan of Treatment Not on file documented as of this encounter Procedures Procedure Name Priority Date/Time Associated Diagnosis Comments MICROALBUMIN/CREATININ E RATIO, RANDOM UR Routine 04/04/2016 7:33 AM CDT PSA Routine 04/04/2016 7:33 AM CDT LIPID PANEL Routine 04/04/2016 7:33 AM CDT COMPREHENSIVE METABOLIC PANEL Routine 04/04/2016 7:33 AM CDT documented in this encounter Results * MICROALBUMIN/CREATININE RATIO, RANDOM UR (04/04/2016 7:33 AM CDT) Creatinine, Urine 91 20 - 370 mg/dL [facility] MICROALBUMIN, URINE 0.2 mg/dL [facility] Comment: Reference Range Not established MICROALBUMIN/CREAT RATIO, UR 2 <30 mcg/mg creat [facility] Comment: The ADA defines abnormalities in albumin excretion as follows: Category ? Result (mcg/mg creatinine) Normal ?<30 Microalbuminuria ? 30-299 Clinical albuminuria ?? > OR = 300 The ADA recommends that at least two of three specimens collected within a 3-6 month period be abnormal before considering a patient to be within a diagnostic category. REPORT COMMENT: FASTING:YES Test Performed at: [facility] [address] [place], [place] ??[phone] MINO ZAMAN DO,MPH 04/04/2016 7:33 AM CDT Ciro Fernandez DO URINE ORDERABLES [facility] [address] [place] [address] * (ABNORMAL) COMPREHENSIVE METABOLIC PANEL (04/04/2016 7:33 AM CDT) GLUCOSE 101(H) 65 - 99 mg/dL [facility] Comment:Fasting reference in terval BUN 16 7 - 25 mg/dL [facility] CREATININE 0.90 0.70 - 1.25 mg/dL [facility] Comment: For patients >49 years of age, the reference limit for Creatinine is approximately 13% higher for people identified as -Ivorian. GFR 90 > OR = 60 mL/min/1 .73m2 [facility] GFR, 104 > OR = 60 mL/min/1 .73m2 [facility] BUN/CREAT RATIO NOT APPLICABLE 6 - 22 (calc) [facility] SODIUM 139 135 - 146 mmol/L [facility] POTASSIUM 4.7 3.5 - 5.3 mmol/L [facility] CHLORIDE 103 98 - 110 mmol/L [facility] CO2 28 20 - 31 mmol/L [facility] CALCIUM 9.8 8.6 - 10.3 mg/dL [facility] . [facility] TOTAL PROTEIN 7.3 6.1 - 8.1 g/dL [facility] ALBUMIN 4.2 3.6 - 5.1 g/dL [facility] . [facility] GLOBULIN 3.1 1.9 - 3.7 g/dL (calc) [facility] . [facility] ALBUMIN/GLOBULIN RATIO 1.4 1.0 - 2.5 (calc) [facility] BILIRUBIN TOTAL 0.7 0.2 - 1.2 mg/dL [facility] ALKALINE PHOSPHATASE 67 40 - 115 U/L [facility] AST 24 10 - 35 U/L [facility] ALT 37 9 - 46 U/L [facility] Comment: REPORT COMMENT: FASTING:YES Test Performed at: [facility] [address] [place], [place] ??[phone] MINO ZAMAN DO,MPH 04/04/2016 7:33 AM CDT Ciro Fernandez DO CHEMISTRY ORDERABLES Performing Organization Address [facility] Co de Phone Number [facility] [address] [place] [address] * LIPID PANEL (04/04/2016 7:33 AM CDT) CHOLESTEROL 147 125 - 200 mg/dL [facility] HDL 40 > OR = 40 mg/dL [facility] TRIGLYCERIDE 107 <150 mg/dL [facility] LDL CALCULATED 86 <130 mg/dL (calc) [facility] Comment: Desirable range <100 mg/dL for patients with CHD or diabetes and <70 mg/dL for diabetic patients with known heart disease. CHOL/HDL RATIO 3.7 < OR = 5.0 (calc) [facility] TOTAL NON-HDL CHOL(LDL+VLDL) 107 mg/dL (calc) [facility] Comment: Target for non-HDL cholesterol is 30 mg/dL higher than LDL cholesterol target. Test Performed at: [facility] ??[phone] MINO ZAMAN DO,MPH 04/04/2016 7:33 AM CDT Ciro Fernandez DO CHEMISTRY ORDERABLES Performing Organization Address [facility] de Phone Number [facility] [address] [place] [address] * PSA (04/04/2016 7:33 AM CDT) Pathologist [facility] PSA 0.3 < OR = 4.0 ng/mL [facility] Comment: This test was performed using the Siemens chemiluminescent method. Values obtained from different assay methods cannot be used interchangeably. PSA levels, regardless of value, should not be interpreted as absolute evidence of the presence or absence of disease. REPORT COMMENT: FASTING:YES Test Performed at: [facility] ??[phone] MINO ZAMAN DO,MPH 04/04/2016 7:33 AM CDT Ciro Fernandez DO CHEMISTRY ORDERABLES Performing Organization Address [facility]/State/ZIP Co de Phone Number [facility] [address] [place] [address] documented in this encounter Visit Diagnoses Not on filedocumented in this encounter
--- OUTSIDE RECORDS SUMMARY | 2024-08-19 06:44 | XMS_ITS | Encounter Summary ---
Author Organization [facility] Address [address] [place] [address] Care Team Providers Care Inspector Floor Name Role Phone Unavailable Primary Care Provider Unavailabl e Reason for Visit * Reason Comments Medication Refill Encounter Details Date Type Department Care Team (Late st Contact Info) Description 02/05/2015 Refill [facility] Medicine - [facility] [address] [facility] [address] [place] [address] Ciro Fernandez, DO [address] [facility] [address] [place] [address] Social History Tobacco Use Types [...]
--- OUTSIDE RECORDS SUMMARY | 2024-08-19 06:44 | XMS_ITS | Encounter Summary ---
Author Organization [facility] Address [address] [place] [address] Care Team Providers Care Cover Cutter Name Role Phone Unavailable Primary Care Provider Unavailabl e Reason for Visit * Reason Comments Sinus Pain congestion, cough Encounter Details Date Type Department Care Team (Late st Contact Info) Description 07/10/2017 9:30 AM SENIOR FIELD ENGINEER Office Visit [facility] Medicine - [facility] 140 107 [facility] ALETHEA [address] [place] [address] Courtney Weeks PA-Francisco [address] [place] [address] Allergic rhinitis, unspecified chronicity, unspecified seasonality, unspecified trigger (Primary Dx); Post-nasal drip; Cough Social History Tobacco Use Types Packs/Day [...] Reading Time Taken Comments Blood Pressure 108/60 07/10/2017 9:20 AM SENIOR FIELD ENGINEER Pulse 84 07/10/2017 9:20 AM SENIOR FIELD ENGINEER Temperature 36.6 ??C (97.8 ??F) 07/10/2017 9:20 AM CS T Respiratory Rate - - Oxygen Saturation - - Inhaled Oxygen Concentration - - Weight 95.3 kg (210 lb) 07/10/2017 9:20 AM SENIOR FIELD ENGINEER Height 180.3 cm (5' 11 ) 07/10/2017 9:20 AM SENIOR FIELD ENGINEER Body Mass Index 29.29 07/10/2017 9:20 AM SENIOR FIELD ENGINEER documented in this encounter Progress Notes * Courtney Weeks PA-C - 07/10/2017 9:56 AM CST Subjective: Brendon Aldana 67 y.o. male presents with a 10 day hx of allergy symptoms. Patient complains of headaches, sinus pressure, pressure sensation in ears, nasal congestion and postnasal drip Symptoms seem to be worse in the morning, when nasal drainage is a mix of clear, darker yellow-green and sometimes bloody. He has been outside the past few nights in the colder air and exposed to firewood smoke for a latter-day holiday function. Frequency of symptoms: persistent. States always with similar symptoms every fall. Patient has has previous treatment which has been helpful - Singulair, Zyrtec-D, Flonase, cough lozenges He has been taking the medicines recently. Patient denies side effects of the medications used. Previously diagnosed with sinus infection about 6 weeks ago at [facility] and treated with Omnicef. Infection moved to lungs and he was treated with Levaquin. Also treated with Dulera, singulair for post-infectious bronchospasm. He was prescribed Albuterol but did not fill that rx. He states SOB, chest tightness has improved but still with occasional cough. Patient denies chest pain or SOB. Negative Sick Contacts Negative Fevers, N/V/D Review of Systems - Ophthalmic ROS: negative for visual changes Respiratory ROS: negative for cough, shortness of breath, or wheezing Cardiovascular ROS: negative for chest pain, heart palpitations or dyspnea on exertion Past Medical/Surgical/Social/Family History reviewed as well as Allergies and Medications. Objective: BP 108/60 Pulse 84 Temp 97.8 ??F (36.6 ??C) (Temporal) Ht 5' 11 (1.803 m) Wt 95.3 kg (210 lb) BMI 29.29 kg/m?? Gen'l: NAD HEENT: Perrla, eomi. Ears normal bilaterally. Sinuses nontender to palpation. Throat not erythematous without exudates. +post nasal drainage. pale, swollen nasal turbinates. Clear nasal drainage Neck: Supple. No lymphadenopathy. Lungs: Clear to auscultation bilaterally. No wheezing, crackles, rhonchi. CV: RRR. No murmur. Skin: No rash noted. Assessment/Plan: Brendon was seen today for sinus pain. Diagnoses and all orders for this visit: Allergic rhinitis, unspecified chronicity, unspecified seasonality, unspecified trigger Post-nasal drip - Continue current regimen of Zyrtec-D, Singulair, Flonase. - Suggested a change to Melissa-D or xyzal may help, but patient would like to stick with the Zyrtec - OTC mucinex (guafenesin) 600 mg BID - Saline gel, vaseline to bilateral nares twice daily - Consider referral to portable pinch riveter Cough - albuterol HFA 90 mcg inhaler; Take 2 Puffs by inhalation every 8 hours as needed for Shortness ofBreath. - Continue singulair OTC Meds as discussed Increase Fluids Rest Discussed Risks, Benefits and Alternatives of the current treatment regimen. Call or return to clinic prn if these symptoms worsen or fail to improve as anticipated. OR FIELD ENGINEER documented in this encounter Plan of Treatment Not on file documented as of this encounter Visit Diagnoses Diagnosis Allergic rhinitis, unspecified chronicity, unspecified seasonality, unspecified trigger- Primary Post-nasal drip Postnasal drip Cough documented in this encounter
--- OUTSIDE RECORDS SUMMARY | 2024-08-19 06:44 | XMS_ITS | Encounter Summary ---
Author Organization [facility] Address [address] [place] [address] Care Team Providers Care Graphic User Interface Designer Name Role Phone Unavailable Primary Care Provider Unavailabl e Encounter Details Date Type Department Care Team (Late st Contact Info) Description 08/12/2017 Abstract [facility] Medicine - Bushra Yuan 140 107 [facility] Abundio YUAN 140 [place] [address] Ciro Fernandez, DO [address] [facility] [address] Y[address] [place] [address] Social History Tobacco Use Types [...]
--- OUTSIDE RECORDS SUMMARY | 2024-08-19 06:44 | XMS_ITS | Encounter Summary ---
Author Organization [facility] Address [address] [place] [address] Care Team Providers Care Jockey'S Agent Name Role Phone Unavailable Primary Care Provider Unavailabl e Reason for Visit * Reason Comments Medication Refill Encounter Details Date Type Department Care Team (Late st Contact Info) Description 03/18/2015 Refill [facility] Family Medicine - [facility] 150 107 [facility] [address] [place] [address] Ciro Fernandez, DO 107 [facility] A[address] [place] [address] Social History Tobacco Use Types [...] Telephone Encounter - Kay Jesus CMA - 03/19/2015 10:22 AM CDT Prescription faxed. documented in this encounter Plan of Treatment Not on file documented as of this encounter Visit Diagnoses Not on filedocumented in this encounter
--- OUTSIDE RECORDS SUMMARY | 2024-08-19 06:44 | XMS_ITS | Encounter Summary ---
Author Organization [facility] Address [address] [place] [address] Care Team Providers Care Ferry Captain Name Role Phone Unavailable Primary Care Provider Unavailabl e Reason for Visit * Reason Onset Date Comments Medication Refill 02/03/2017 Encounter Details Date Type Department Care Team (Late st Contact Info) Description 02/03/2017 Telephone [facility] Family Medicine - [facility] 150 107 [facility] [address] [place] [address] Ciro Fernandez, DO [address] [facility] [address] [place] [address] Medication Refill Social History Tobacco [...] * Telephone Encounter - Kay Jesus - 02/03/2017 8:[address] Fernandez approved.Script faxed. Patient notified. * Telephone Encounter - Tasneem Regalado - 02/03/2017 8:23 AM CDT Pt LM on voice mail stating that his pharmacy told him that he has to vegetable picker the paper copy of Bria. He states that he lives in [place] and it is [address] here. He is asking if this medication could possibly be called in? States, I have always just picked it up at [facility] over the past 2 years. If I lived closer, I would have no problem coming to your office. documented in this encounter Plan of Treatment Not on file documented as of this encounter Visit Diagnoses Not on filedocumented in this encounter
--- OUTSIDE RECORDS SUMMARY | 2024-08-19 06:44 | XMS_ITS | Encounter Summary ---
Author Organization [facility] Address [address] [place] [address] Care Team Providers Care Metal Machine Operator Name Role Phone Unavailable Primary Care Provider Unavailabl e Reason for Visit * Reason Onset Date Comments Medication Refill 10/16/2016 Encounter Details Date Type Department Care Team (Late st Contact Info) Description 10/19/2016 Refill [facility] Family Medicine - [facility] Abundio Yuan 140 [address] [facility] [address] YUAN [address] [place] [address] Ciro Fernandez DO [address] [facility] [address] [place] [address] Social History Tobacco Use Types [...] Notes * Telephone Encounter - Kay Jesus [facility] - 10/19/2016 8:02 AM CDTFrom: Brendon Aldana To: Ciro Fernandez DO Sent: 10/16/2016 8:51 PM WASTEWATER TREATMENT PLANT CHEMIST Subject: Medication Renewal Request Original authorizing provider: DO Brendon Tom would like a refill of the following medications: fluticasone (FLONASE) 50 mcg/spray [place], Suspension [Ciro Fernandez DO] Preferred pharmacy: [facility] - [place], [place] - [address] [place] [address] Delivery method: Pickup Comment: This Rx must be written as a 90 day Rx and sent [facility]. Thank you. documented in this encounter Plan of Treatment Not on file documented as of this encounter Visit Diagnoses Not on filedocumented in this encounter
--- OUTSIDE RECORDS SUMMARY | 2024-08-19 06:44 | XMS_ITS | Encounter Summary ---
Author Organization [facility] Address [address] [place] [address] Care Team Providers Care Paste Up Copy Camera Operator Name Role Phone Unavailable Primary Care Provider Unavailabl e Reason for Visit * Reason Onset Date Comments Medication Refill 04/15/2017 Encounter Details Date Type Department Care Team (Late st Contact Info) Description 04/15/2017 Refill [facility] Family Medicine - Bushra Yuan [address] [place] [address] Ciro Fernandez, DO [address] [facility] [address] [place] [address] Social History Tobacco Use Types [...]
--- OUTSIDE RECORDS SUMMARY | 2024-08-19 06:44 | XMS_ITS | Encounter Summary ---
Author Organization [facility] Address [address] [place] [address] Care Team Providers Care Operations Research Engineer Name Role Phone Unavailable Primary Care Provider Unavailabl e Reason for Visit * Reason Onset Date Comments Medication Refill 10/11/2016 Encounter Details Date Type Department Care Team (Late st Contact Info) Description 10/12/2016 Refill [facility] Family Medicine - [facility] 150 107 [facility] [address] [place] [address] Ciro Fernandez DO [address] [facility] [address] [place] [address] Social History Tobacco Use Types [...] Notes * Telephone Encounter - Tasneem Regalado Osmar - 10/12/2016 7:53 AM CSTFrom: Brendon Aldana To: Ciro Fernandez DO Sent: 10/11/2016 5:19 PM SLIP COVER CUTTER Subject: Medication Renewal Request Original authorizing provider: DO Brendon Tom would like a refill of the following medications: losartan (COZAAR) 50 mg tablet [Ciro Fernandez DO] Preferred pharmacy: [facility] - [address] Delivery method: Pickup Comment: This Rx must be written as a 90 day Rx and sent to [facility]? Thank you. COVER CUTTER documented in this encounter Plan of Treatment Not on file documented as of this encounter Visit Diagnoses Not on filedocumented in this encounter
--- OUTSIDE RECORDS SUMMARY | 2024-08-19 06:44 | XMS_ITS | Encounter Summary ---
Author Organization [facility] Address [address] [place] [address] Care Team Providers Care Dry Boss Name Role Phone Unavailable Primary Care Provider Unavailabl e Reason for Visit * Reason Onset Date Comments Medication Refill 04/30/2016 Encounter Details Date Type Department Care Team (Late st Contact Info) Description 05/01/2016 Refill [facility] Family Medicine - [facility] Abundio Yuan 140 [address] [facility] [address] YUAN [address] [place] [address] Ciro Fernandez DO [address] [facility] [address] [place] [address] Pure hypercholesterolemia Social History Tobacco [...] Notes * Telephone Encounter - Kay Jesus [facility] - 05/01/2016 7:45 AM CDTFrom: Brendon Aldana To: Ciro Fernandez DO Sent: 04/30/2016 6:05 PM CDT Subject: Medication Renewal Request Original authorizing provider: DO Brendon Tom would like a refill of the following medications: simvastatin (ZOCOR) 40 mg tablet [Ciro Fernandez DO] Preferred pharmacy: [facility] - [address] Comment: Rx must be written as a 90 day Rx and sent to [facility]. Thank you documented in this encounter Plan of Treatment Not on file documented as of this encounter Visit Diagnoses Diagnosis Pure hypercholesterolemia documented in this encounter
--- OUTSIDE RECORDS SUMMARY | 2024-08-19 06:44 | XMS_ITS | Encounter Summary ---
Author Organization [facility] Address [address] [place] [address] Care Team Providers Care Etcher Electrolytic Name Role Phone Unavailable Primary Care Provider Unavailabl e Reason for Visit * Reason Comments Hypertension ifg; Follow up on la bs. Encounter Details Date Type Department Care Team (Late st Contact Info) Description 04/24/2016 1:30 PM CDT Office Visit [facility] Medicine - [facility] 150 107 [facility] [address] [place] [address] Ciro Fernandez, DO [address] [facility] [address] [place] [address] Essential hypertension, benign (Primary Dx); Pure hypercholesterolemia; IFG (impaired fasting glucose); Acute frontal sinusitis, recurrence not specified; Cough Social History Tobacco Use Types Packs/Day [...] Sign Reading Time Taken Comments Blood Pressure 120/72 04/24/2016 12:52 PM CDT Pulse 76 04/24/2016 12:52 PM CDT Temperature 36.5 ??C (97.7 ??F) 04/24/2016 12:52 PM C DT Respiratory Rate - - Oxygen Saturation - - Inhaled Oxygen Concentration - - Weight 94.8 kg (209 lb) 04/24/2016 12:52 PM CDT Height 180.3 cm (5' 11 ) 04/24/2016 12:52 PM CDT Body Mass Index 29.15 04/24/2016 12:52 PM CDT documented in this encounter Progress Notes * Ciro Fernandez, DO - 04/24/2016 2:25 PM CDT SUBJECTIVE: Brendon Aldana is a [...] prevention strategies. Last labs reviewed with patient. Sick Symptoms: Also complains of being sick. Symptoms present for 14 days. Patient complains of sore throat, post nasal drip, ear pressure, non productive cough and productive cough Pt does not have a Fever. No nausea, vomiting, diarrhea. No posterior neck pain. Tried nasal steroids, over the counter antihistamines and oral antibiotic from C, OTC cough/cold product of patient's choice PRN and fluids and rest with some improvement. Positive Sick Contacts positive for a history of Allergies. Past Medical/Surgical/Social/Family History reviewed as well as [...] or unusual skin lesions noted OBJECTIVE: BP 120/72 mmHg Pulse 76 Temp(Src) 97.7 ??F (36.5 ??C) (Temporal) Ht 5' 11 (1.803 m) Wt 94.802 kg (209 lb) BMI 29.16 kg/m2 Appearance: alert, well appearing, and in [...] glucose) - COMPREHENSIVE METABOLIC PANEL (Favorites); Future Acute frontal sinusitis, recurrence not specified - amoxicillin (AMOXIL) 500 mg Tablet; Take 1 Tablet (500 mg) by mouth every 8 hours for 10 days. - montelukast (SINGULAIR) 10 mg tablet; Take 1 Tablet (10 mg) by mouth daily at bedtime. Cough - montelukast (SINGULAIR) 10 mg tablet; Take 1 Tablet (10 mg) by mouth daily at bedtime. Check BP on a regular basis and report highs and lows. Discussed Risks, Benefits and Alternatives of the current treatment regimen. F/u in 6 months documented in this encounter Plan of Treatment Not on file documented as of this encounter Visit Diagnoses Diagnosis Essential hypertension, benign- Primary Pure hypercholesterolemia IFG (impaired fasting glucose) Impaired fasting glucose Acute frontal sinusitis, recurrence not specified Cough documented in this encounter
--- OUTSIDE RECORDS SUMMARY | 2024-08-19 06:44 | XMS_ITS | Encounter Summary ---
Author Organization [facility] Address [address] [place] [address] Care Team Providers Care Damage Inside Adjuster Name Role Phone Unavailable Primary Care Provider Unavailabl e Encounter Details Date Type Department Care Team (Latest Contact Info) Description 03/27/2016 4:28 PM CDT - 03/27/2016 11:59 PM CDT Hospital Encounter [facility] S Pending Sale To [facility] [address] [place] [address] Ciro Fernandez, DO [address] [facility] [address] [place] [address] Discharge Disposition: Home or Self [...] UBIDECARENONE (CO Q-10 ORAL) Take by mouth. ZYRTEC-D 5-120 mg tablet TAKE ONE TABLET BY MOUTH EVERY DAY TWO TIMES A DAY 72 Tablet 1 02/06/2016 04/16/2016 simvastatin (ZOCOR) 40 mg tabletIndications:Pure hypercholesterolemia Take 1 Tablet (40 mg) by mouth Daily LATE. 90 Tablet 1 01/13/2016 05/01/2016 cyclobenzaprine (FLEXERIL) 10 mg tabletIndications:Strain of iliopsoas muscle, unspecified laterality, subsequent encounter Take 1 Tablet (10 mg) by mouth nightly as needed for Spasm. 30 Tablet 0 12/10/2015 04/24/2016 losartan (COZAAR) 50 mg tablet Take 1 Tablet (50 mg) by mouth daily. 90 Tablet 1 10/07/2015 05/04/2016 fluticasone (FLONASE) 50 mcg/spray [place], Suspension Administer 2 Sprays in each nostril daily. 48 Gram 3 10/07/2015 10/19/2016 montelukast (SINGULAIR) 10 mg tabletIndications:Sinusitis , acute Take 1 Tab (10 mg) by mouth daily at bedtime. 30 Tab 0 11/15/2014 04/24/2016 tadalafil (CIALIS) 20 mg tablet Take 1 Tab by mouth 1 time daily as needed for Other (See Comment). 6 Tab 3 08/20/2014 08/24/2016 omeprazole (PRILOSEC) 20 mg Capsule, Delayed Release(E.C.) Take 2 Caps by mouth daily. 180 Cap 3 07/21/2014 05/27/2016 acetaminophen (TYLENOL) 500 mg tablet Take 1,000 mg by mouth every 6 hours as needed. 11/10/2016 documented as of this encounter Plan of Treatment Not on file documented as of this encounter Procedures Procedure Name Priority Date/Time Associated Diagnosis Comments PATHOLOGY Routine 03/27/2016 1:10 PM CDT Neoplasm of uncertain behavior documented in this encounter Results * PATHOLOGY (03/27/2016 1:10 PM CDT) CASE REPORT Surgical Pathology Report ? Case: [id number] ? Authorizing Provider: ??Ciro Fernandez, DO ?Collected: ? 03/27/2016 01:10 PM ? Ordering Location: ? [facility] ?? Received: ?03/28/2016 07:15 AM ? Services [place] ? Pathologist: ? Landry Klein MD ? Specimen: ?Skin, left side of the scalp ? 03/30/2016 3:04 PM [facility] FINAL DIAGNOSIS Skin, left side of scalp, punch biopsy: - Seborrheic keratosis, inflamed. 03/30/2016 3:04 PM [facility] IMEN DESCRIPTION Left side of the skull. 03/30/2016 3:04 PM [facility] OPERATIVE PROCEDURE Punch biopsy. 03/30/2016 3:04 PM [facility] CLINICAL DIAGNOSIS Neoplasm of uncertain behavior. 03/30/2016 3:04 PM [facility] GROSS DESCRIPTION The specimen is received labeled as Brendon Aldana, biopsy, left side of the scalp. It consists of one fragment of skin with papillary structures, measuring 0.3 x 0.2 x 0.2 cm. The specimen is inked blue on the deep margin. The specimen is bisected and submitted in toto in one cassette A1. X/stoney 03/30/2016 3:04 PM CDT [facility] MICROSCOPIC DESCRIPTION The slides are labeled [id number] and Brendon Aldana. The left side of scalp punch biopsy demonstrates an acanthotic lesion with papillomatosis and hyperkeratosis. There is a band-like lymphocytic infiltrate with associated basal vacuolar l alterations and dyskeratotic keratinocytes. 03/30/2016 3:04 PM CDT [facility] COMMENT Special stain and/or immunohistochemical results are interpreted with controls that demonstrate appropriate staining reactions. Note on use of immunocytochemistry reagents: This test was developed and its performance characteristic determined by [facility], Department of Laboratory Medicine. [...] WF, WB and WH are performed by [address], [address]. All other case types are performed by [facility] [address] [facility], [address]. 03/30/2016 3:04 PM T [facility] Tissue TISSUE SPECIMEN FROM SKIN / Unknown 03/27/2016 1:10 PM CDT 03/28/2016 7:15 AM CDT Ciro Fernandez DO PATHOLOGY/CYTOLOGY O RDERABLES Performing Organization Address City/State/[facility] Co de Phone Number [facility] CLIA# [id number] [address] [place] [address] [place] [address] documented in this encounter Visit Diagnoses Diagnosis Neoplasm of uncertain behavior Neoplasm of uncertain behavior, site unspecified documented in this encounter
--- OUTSIDE RECORDS SUMMARY | 2024-08-19 06:44 | XMS_ITS | Encounter Summary ---
Author Organization [facility] Address [address] [place] [address] Care Team Providers Care Charcoal Unloader Name Role Phone Unavailable Primary Care Provider Unavailabl e Reason for Visit * Reason Onset Date Comments Medication Refill 12/10/2015 Encounter Details Date Type Department Care Team (Late st Contact Info) Description 12/11/2015 Refill [facility] Family Medicine - [facility] 150 [address] [facility] [address] [place] [address] Ciro Fernandez DO [address] [facility] [address] [place] [address] Social History Tobacco Use Types [...] Notes * Telephone Encounter - Edna Jackson N - 12/11/2015 9:11 AM CDTFrom: Brendon Aldana To: Ciro Fernandez DO Sent: 12/10/2015 8:25 PM CDT Subject: Medication Renewal Request Original authorizing provider: DO Brendon Tom would like a refill of the following medications: ibuprofen (MOTRIN) 800 mg tablet [Ciro Fernandez DO] Preferred pharmacy: [facility] - [address] Comment: Rx must be written as a 90 Rx and sent to [facility]. Thank you. documented in this encounter Plan of Treatment Not on file documented as of this encounter Visit Diagnoses Not on filedocumented in this encounter
--- OUTSIDE RECORDS SUMMARY | 2024-08-19 06:44 | XMS_ITS | Encounter Summary ---
Author Organization [facility] Address [address] [place] [address] Care Team Providers Care Strategic Development Manager Name Role Phone Unavailable Primary Care Provider Unavailabl e Reason for Visit * Reason Onset Date Comments Medication Refill 06/29/2016 Encounter Details Date Type Department Care Team (Late st Contact Info) Description 06/29/2016 Refill [facility] Family Medicine - [facility] Abundio Kwabena 150 107 [facility] [address] [place] [address] Ciro Fernandez, DO [address] [facility] [address] [place] [address] Social History Tobacco Use Types [...] Telephone Encounter - Kay Jesus CMA - 06/29/2016 8:17 AM MOWER OPERATOR Script faxed to pharmacy. R OPERATOR documented in this encounter Plan of Treatment Not on file documented as of this encounter Visit Diagnoses Not on filedocumented in this encounter
--- OUTSIDE RECORDS SUMMARY | 2024-08-19 06:44 | XMS_ITS | Encounter Summary ---
Author Organization [facility] Address [address] [place] [address] Care Team Providers Care Field Foreman Name Role Phone Unavailable Primary Care Provider Unavailabl e Encounter Details Date Type Department Care Team (Late st Contact Info) Description 05/22/2016 Orders Only [facility] Medicine - [facility] Kwabena 140 107 [facility] [address] [place] [address] Edna Jackson, A Social History Tobacco Use Types Packs/Day Years [...]
--- OUTSIDE RECORDS SUMMARY | 2024-08-19 06:44 | XMS_ITS | Encounter Summary ---
Author Organization [facility] Address [address] [place] [address] Care Team Providers Care Pile Driving Technician Name Role Phone Unavailable Primary Care Provider Unavailabl e Reason for Visit * Reason Onset Date Comments Results 12/19/2014 labs-Vit D level Encounter Details Date Type Department Care Team (Late st Contact Info) Description 12/19/2014 Telephone [facility] Family Medicine - [facility] [address] [facility] [address] [place] [address] Ciro Fernandez, DO [address] [facility] [address] [place] [address] Results (labs-Vit D level) Social History Tobacco Use Types Packs/Day Years [...] Notes * Telephone Encounter - Cristela Herman RN - 12/19/2014 8:26 AM CDT Pt notified of results and recommendations below. Rx for Vit D2 sent to pt's pharmacy, med list updated. Copy of note below sent to pt via [employer]. * Telephone Encounter - Cristela Herman RN - 12/19/2014 8:09 AM CDT ----- Message from Ciro Fernandez DO sent at 12/18/2014 6:59 PM CDT ----- .Your Vitamin D level was too low. I want you to start Ergocalciferol (Vit D2) at 50,000 IU per week for 12 wks Then start OTC Vitamin D 2000 IU daily Add to PL documented in this encounter Plan of Treatment Not on file documented as of this encounter Visit Diagnoses Diagnosis Vitamin D deficiency- Primary Unspecified vitamin D deficiency documented in this encounter
--- OUTSIDE RECORDS SUMMARY | 2024-08-19 06:44 | XMS_ITS | Encounter Summary ---
Author Organization [facility] Address [address] [place] [address] Care Team Providers Care Ornamental Metal Fabricator Apprentice Name Role Phone Unavailable Primary Care Provider Unavailabl e Reason for Visit * Reason Comments Cough Encounter Details Date Type Department Care Team (Late st Contact Info) Description 05/21/2017 3:15 PM CDT Office Visit [facility] Medicine - [facility] Abundio Yuan [address] [place] [address] Ciro Fernandez, DO [address] [facility] [address] [place] [address] Acute bronchitis, unspecified organism (Primary Dx); Acute frontal sinusitis, recurrence not specified; Need for influenza vaccination Social History Tobacco Use Types Packs/Day [...] Sign Reading Time Taken Comments Blood Pressure 132/80 05/21/2017 2:52 PM CDT Pulse 72 05/21/2017 2:52 PM CDT Temperature 36.3 ??C (97.3 ??F) 05/21/2017 2:52 PM CD T Respiratory Rate - - Oxygen Saturation - - Inhaled Oxygen Concentration - - Weight 96.2 kg (212 lb) 05/21/2017 2:52 PM CDT Height 180.3 cm (5' 11 ) 05/21/2017 2:52 PM CDT Body Mass Index 29.57 05/21/2017 2:52 PM CDT documented in this encounter Progress Notes * Ciro Fernandez DO - 05/21/2017 3:16 PM CDT 67 y.o. male presents with a history of productive of yellow sputum cough. States also with Rhinorrhea and went to [facility] and diagnosed with sinus infection. Given Omnicef but still having symptoms and now down in the lungs. Symptoms started a week ago. Patient with no chest pain. Denies nausea, vomiting, diarrhea. Appetite normal. Negative SOB Negative Wheezing Negative fever negative history of Smoking negative history of Asthma/COPD positive history of Allergies positive for Sick Contacts Tried OTC cough/cold product of patient's choice PRN and fluids and rest with no improvement. Review of Systems - Cardiovascular ROS: negative for chest pain, heart palpitations or dyspnea on exertion Musculoskeletal ROS: negative for unusual pains Neurological ROS: negative for severe headaches, confusion, numbness/tingling or weakness Reviewed PMH,ALL,Meds,PSH, Soc Hx Blood pressure 132/80, pulse 72, temperature 97.3 ??F (36.3 ??C), temperature source Temporal, height 5' 11 (1.803 m), weight 96.2 kg (212 lb). Gen'l: NAD HEENT: No conjunctivitis. TM's normal. Throat clear, Mildly Erythematous. red, swollen nasal turbinates Neck: Supple Lungs: Mild coarse breath sounds in central bronchus that clears with coughing. normal respiratory effort CV: RRR without murmurs Skin: No rash noted. Ext: No edema. A/P: Brendon was seen today for cough. Diagnoses and all orders for this visit: Acute bronchitis, unspecified organism - levoFLOXacin (LEVAQUIN) 500 mg tablet; Take 1 Tablet (500 mg) by mouth daily for 10 days. - montelukast (SINGULAIR) 10 mg tablet; Take 1 Tablet (10 mg) by mouth daily at bedtime. Acute frontal sinusitis, recurrence not specified - levoFLOXacin (LEVAQUIN) 500 mg tablet; Take 1 Tablet (500 mg) by mouth daily for 10 days. - montelukast (SINGULAIR) 10 mg tablet; Take 1 Tablet (10 mg) by mouth daily at bedtime. Need for influenza vaccination - INFLUENZA VACCINE HIGH DOSE 65+ YRS IM OTC meds as discussed Rest Increase Fluids Discussed Risks, Benefits and Alternatives of the current treatment regimen. Call or return to clinic prn if these symptoms worsen or fail to improve as anticipated. documented in this encounter Plan of Treatment Not on file documented as of this encounter Visit Diagnoses Diagnosis Acute bronchitis, unspecified organism- Primary Acute frontal sinusitis, recurrence not specified Need for influenza vaccination Need for prophylactic vaccination and inoculation against influenza documented in this encounter
--- OUTSIDE RECORDS SUMMARY | 2024-08-19 06:44 | XMS_ITS | Encounter Summary ---
Author Organization [facility] Address [address] [place] [address] Care Team Providers Care Private Chef Name Role Phone Unavailable Primary Care Provider Unavailabl e Reason for Visit * Reason Onset Date Comments Medication Refill 08/09/2017 Encounter Details Date Type Department Care Team (Late st Contact Info) Description 08/10/2017 Refill [facility] Family Medicine - [facility] Abundio Yuan [address] [facility] [address] [place] [address] Ciro Fernandez DO [address] [facility] [address] [place] [address] Acute bronchitis, unspecified organism; Acute [...] Telephone Encounter - Kay Jesus N - 08/10/2017 10:01 AM CSTFrom: Brendon Aldana Sent: 08/09/2017 8:01 AM BEHAVIORAL HEALTH TECHNICIAN Subject: Medication Renewal Request Brendon Aldana would like a refill of the following medications: montelukast (SINGULAIR) 10 mg tablet [Ciro Fernandez DO] Patient Comment: Can this rx be written as a 90 day rx and sent to [facility]? Preferred pharmacy: [facility] - [address] method: Pickup VIORAL HEALTH TECHNICIAN documented in this encounter Plan of Treatment Not on file documented as of this encounter Visit Diagnoses Diagnosis Acute bronchitis, unspecified organism Acute frontal sinusitis, recurrence not specified documented in this encounter
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
--- OUTSIDE RECORDS SUMMARY | 2024-08-19 06:44 | XMS_ITS | Encounter Summary ---
Author Organization [facility] Address [address] [place] [address] Care Team Providers Care Workers Compensation Specialist Name Role Phone Unavailable Primary Care Provider Unavailabl e Reason for Visit * Reason Onset Date Comments Medication Refill 08/21/2015 Encounter Details Date Type Department Care Team (Late st Contact Info) Description 08/21/2015 Refill [facility] Medicine - [facility] 150 [address] [facility] [address] [place] [address] Ciro Fernandez DO [address] [facility] [address] [place] [address] Social History Tobacco Use Types [...] Telephone Encounter - Kay Jesus CMA - 08/22/2015 12:43 PM HOOK AND EYE MACHINE OPERATOR Dr Fernandez approved. Script sent. AND EYE MACHINE OPERATOR * Telephone Encounter - Kay Jesus CMA - 08/22/2015 11:38 AM CSTFrom: Brendon Aldana To: Ciro Fernandez DO Sent: 08/21/2015 7:24 PM HOOK AND EYE MACHINE OPERATOR Subject: Medication Renewal Request Original authorizing provider: DO Brendon Tom would like a refill of the following medications: ibuprofen (MOTRIN) 800 mg tablet [Ciro Fernandez DO] Preferred pharmacy: [facility] - [address] Comment: Rx must be written as a 90 day Rx and sent to [facility] AND EYE MACHINE OPERATOR documented in this encounter Plan of Treatment Not on file documented as of this encounter Visit Diagnoses Not on filedocumented in this encounter
--- OUTSIDE RECORDS SUMMARY | 2024-08-19 06:44 | XMS_ITS | Encounter Summary ---
Author Organization [facility] Address [address] [place] [address] Care Team Providers Care Cut Press Operator Name Role Phone Unavailable Primary Care Provider Unavailabl e Reason for Visit * Reason Onset Date Comments Medication Refill 05/26/2016 Encounter Details Date Type Department Care Team (Late st Contact Info) Description 05/27/2016 Refill [facility] Family Medicine - [facility] Abundio Yuan [address] [facility] [address] [place] [address] Ciro Fernandez DO [address] [facility] [facility] [address] [place] [address] Social History Tobacco Use Types [...] Notes * Telephone Encounter - Kay Jesus [facility] - 05/27/2016 8:04 AM CDTFrom: Brendon Aldana To: Ciro Fernandez DO Sent: 05/26/2016 6:15 PM CDT Subject: Medication Renewal Request Original authorizing provider: DO Brendon Tom would like a refill of the following medications: omeprazole (PRILOSEC) 20 mg Capsule, Delayed Release(E.C.) [Ciro Fernandez DO] Preferred pharmacy: [facility] - [address] Comment: Rx must be written as a 90 day Rx [facility] documented in this encounter Plan of Treatment Not on file documented as of this encounter Visit Diagnoses Not on filedocumented in this encounter
--- OUTSIDE RECORDS SUMMARY | 2024-08-19 06:44 | XMS_ITS | Encounter Summary ---
Author Organization [facility] Address [address] [place] [address] Care Team Providers Care Small Order Cutter Name Role Phone Unavailable Primary Care Provider Unavailabl e Reason for Visit * Reason Comments Sinus Pain congestion, sneezing x 6 days Encounter Details Date Type Department Care Team (Late st Contact Info) Description 09/07/2016 12:45 PM ROTARY KILN OPERATOR Office Visit [facility] Family Medicine - [facility] Abundio Yuan [address] [facility] [address] [place] [address] Ciro Fernandez, DO [address] [facility] [address] [place] [address] Acute frontal sinusitis, recurrence not specified (Primary Dx) Social History Tobacco Use Types [...] Reading Time Taken Comments Blood Pressure 112/60 09/07/2016 12:38 PM ROTARY KILN OPERATOR Pulse 64 09/07/2016 12:38 PM ROTARY KILN OPERATOR Temperature 36.7 ??C (98 ??F) 09/07/2016 12:38 PM ROTARY KILN OPERATOR Respiratory Rate - - Oxygen Saturation - - Inhaled Oxygen Concentration - - Weight 95.3 kg (210 lb) 09/07/2016 12:38 PM ROTARY KILN OPERATOR Height 180.3 cm (5' 11 ) 09/07/2016 12:38 PM ROTARY KILN OPERATOR Body Mass Index 29.29 09/07/2016 12:38 PM ROTARY KILN OPERATOR documented in this encounter Progress Notes * Ciro Fernandez DO - 09/07/2016 12:51 PM CST Subjective: Brendon Aldana 66 y.o. male presents with a 1 week history of cough, sore throat, postnasal discharge, MORALES. Tried nasal steroids and over the counter antihistamines OTC cough/cold product of patient's choicePRN and fluids and rest with no improvement. [...] as well as Allergies and Medications. Objective: Visit Vitals ??? BP 112/60 ??? Pulse 64 ??? Temp 98 ??F (36.7 ??C) (Temporal) ??? Ht 5' 11 (1.803 m) ??? Wt 95.3 kg (210 lb) ??? BMI 29.29 kg/m2 Gen'l: NAD HEENT: Perrla, eomi. Sinuses tender to palpation over the bilateral frontal sinuses. Throat erythematous without exudates. red, swollen nasal turbinates. clear and yellow Nasal Discharge. Ears Normal. Neck: Supple. No lymphadenopathy. Lungs: Clear to auscultation bilaterally. CV: RRR. No murmur. Skin: No rash noted on examination. A/P: Brendon was seen today for sinus pain. Diagnoses and all orders for this visit: Acute frontal sinusitis, recurrence not specified - azithromycin (ZITHROMAX) 250 mg tablet; Take 2 tabs the first day and 1 tab days 2-5. OTC Meds as discussed Increase Fluids and Rest Discussed Risks, Benefits and Alternatives of the current treatment regimen. Call or return to clinic prn if these symptoms worsen or fail to improve as anticipated. RY KILN OPERATOR documented in this encounter Plan of Treatment Not on file documented as of this encounter Visit Diagnoses Diagnosis Acute frontal sinusitis, recurrence not specified- Primary documented in this encounter
--- OUTSIDE RECORDS SUMMARY | 2024-08-19 06:44 | XMS_ITS | Encounter Summary ---
Author Organization [facility] Address [address] [place] [address] Care Team Providers Care Plant Changer Name Role Phone Unavailable Primary Care Provider Unavailabl e Reason for Visit * Reason Onset Date Comments Results 12/17/2014 labs Encounter Details Date Type Department Care Team (Late st Contact Info) Description 12/17/2014 Telephone [facility] Medicine - [facility] [address] [facility] [address] [place] [address] Ciro Fernandez DO [address] [facility] [address] [place] [address] Results (labs) Social History Tobacco [...] Telephone Encounter - Cristela Herman RN - 12/17/2014 4:09 PM CDT I left detailed message on pt's voicemail per HIPAA. * Telephone Encounter - Cristela Herman RN - 12/17/2014 4:09 PM CDT ----- Message from Ciro Fernandez DO sent at 12/16/2014 5:41 PM CDT ----- Blood Counts: Normal - No Anemia and the White blood count is normal. Thyroid Level: Normal Normal Electrolytes, Glucose, Kidney Function and Liver Function. Vitamin B12 level is normal. documented in this encounter Plan of Treatment Not on file documented as of this encounter Visit Diagnoses Not on filedocumented in this encounter
--- OUTSIDE RECORDS SUMMARY | 2024-08-19 06:44 | XMS_ITS | Encounter Summary ---
Author Organization [facility] Address [address] [place] [address] Care Team Providers Care Health Care Technician Name Role Phone Unavailable Primary Care Provider Unavailabl e Reason for Visit * Reason Comments Hypertension chol,ifg,follow up l abs Encounter Details Date Type Department Care Team (Late st Contact Info) Description 07/16/2015 9:45 AM EAR MACHINE OPERATOR Office Visit [facility] Medicine - [facility] [address] [facility] [address] [place] [address] Ciro Fernandez, DO [address] [facility] [address] [place] [address] Essential hypertension, benign (Primary Dx); Pure hypercholesterolemia; IFG (impaired fasting glucose); Screening for prostate cancer; Need for influenza vaccination Social History Tobacco [...] Reading Time Taken Comments Blood Pressure 132/70 07/16/2015 9:19 AM EAR MACHINE OPERATOR Pulse 72 07/16/2015 9:19 AM EAR MACHINE OPERATOR Temperature 37.2 ??C (98.9 ??F) 07/16/2015 9:19 AM CS T Respiratory Rate - - Oxygen Saturation - - Inhaled Oxygen Concentration - - Weight 94.3 kg (208 lb) 07/16/2015 9:19 AM EAR MACHINE OPERATOR Height 177.8 cm (5' 10 ) 07/16/2015 9:19 AM EAR MACHINE OPERATOR Body Mass Index 29.84 07/16/2015 9:19 AM EAR MACHINE OPERATOR documented in this encounter Progress Notes * Ciro Fernandez, DO - 07/16/2015 11:01 AM CST SUBJECTIVE: Brendon Aldana is a 65 y.o. male here to discuss medical issues [...] or unusual skin lesions noted OBJECTIVE: BP 132/70 mmHg Pulse 72 Temp(Src) 98.9 ??F (37.2 ??C) (Temporal) Ht 5' 10 (1.778 m) Wt 208lb (94.348 kg) BMI 29.84 kg/m2 Appearance: alert, well appearing, and in no distress. Skin: I note only benign skin findings. No unusual rashes or suspicious skin lesions noted Eyes: normal, normal vessels, no hemorrhages HEENT: Ears normal. Throat and pharynx normal. Neck supple. No adenopathy or masses in the neck or supraclavicular regions. Thyroid not enlarged, no nodules detected. Pale enlarged nasal turbinates with clear and wooten rhinorrhea. CV: heart sounds: normal [...] RANDOM URINE; Future Continue with losartan - stop HCTZ due to lower BP Pure hypercholesterolemia - LIPID PANEL; Future - COMPREHENSIVE METABOLIC PANEL; Future Zocor CoQ10 IFG (impaired fasting glucose) - COMPREHENSIVE METABOLIC PANEL; Future Continue with good nutrition including low carbohydrate intake and Increase your aerobic exercise to 30 minutes continuous 5 times per week. Screening for prostate cancer - PSA; Future Need for influenza vaccination - INFLUENZA VACCINE QUAD SPLIT 3+ YRS IM Check BP on a regular basis and report highs and lows. Discussed Risks, Benefits and Alternatives of the current treatment regimen. F/u in 6 months MACHINE OPERATOR documented in this encounter Plan of Treatment Not on file documented as of this encounter Visit Diagnoses Diagnosis Essential hypertension, benign- Primary Pure hypercholesterolemia IFG (impaired fasting glucose) Impaired fasting glucose Screening for prostate cancer Special screening for malignant neoplasm of prostate Need for influenza vaccination Need for prophylactic vaccination and inoculation against influenza documented in this encounter
--- OUTSIDE RECORDS SUMMARY | 2024-08-19 06:44 | XMS_ITS | Encounter Summary ---
Author Organization [facility] Address [address] [place] [address] Care Team Providers Care Manager Medicare Marketing Name Role Phone Unavailable Primary Care Provider Unavailabl e Reason for Visit * Reason Onset Date Comments Medication Refill 01/02/2015 Encounter Details Date Type Department Care Team (Late st Contact Info) Description 01/02/2015 Refill [facility] Family Medicine - [facility] [address] [facility] [address] [place] [address] Ciro Fernandez DO [address] [facility] [address] [place] [address] Pure hypercholesterolemia Social History Tobacco [...] Notes * Telephone Encounter - Kay Jesus REAL ESTATE SALESPERSON - 01/02/2015 8:08 AM CDTFrom: Brendon Aldana To: Ciro Fernandez DO Sent: 01/02/2015 6:55 AM CDT Subject: Medication Renewal Request Original authorizing provider: DO Brendon Tom would like a refill of the following medications: simvastatin (ZOCOR) 40 mg tablet [Ciro Fernandez DO] Preferred pharmacy: [facility] - [place], [place] - [address] [place] [address] Comment: Rx must be written as 90 day and [facility]. Thank you. documented in this encounter Plan of Treatment Not on file documented as of this encounter Visit Diagnoses Diagnosis Pure hypercholesterolemia documented in this encounter
--- OUTSIDE RECORDS SUMMARY | 2024-08-19 06:44 | XMS_ITS | Encounter Summary ---
Author Organization [facility] Address [address] [place] [address] Care Team Providers Care Make Up Editor Name Role Phone Unavailable Primary Care Provider Unavailabl e Reason for Visit * Reason Onset Date Comments Medication Refill 07/05/2017 Encounter Details Date Type Department Care Team (Late st Contact Info) Description 07/06/2017 Refill [facility] Family Medicine - [facility] Abundio Yuan [address] [place] [address] Ciro Fernandez DO [address] [place] [address] Pure hypercholesterolemia Social History Tobacco [...] * Telephone Encounter - Kay Jesus - 07/06/2017 8:07 AM CSTFrom: Brendon Aldana Sent: 07/05/2017 4:58 PM CABLE REPAIRER Subject: Medication Renewal Request Brendon Aldana would like a refill of the following medications: simvastatin (ZOCOR) 40 mg tablet [Ciro Fernandez DO] Patient Comment: Rx must be written as 90 day and sent to [facility] Preferred pharmacy: [facility] - [address] Delivery method: Pickup E REPAIRER documented in this encounter Plan of Treatment Not on file documented as of this encounter Visit Diagnoses Diagnosis Pure hypercholesterolemia documented in this encounter
--- OUTSIDE RECORDS SUMMARY | 2024-08-19 06:44 | XMS_ITS | Encounter Summary ---
Author Organization [facility] Address [address] Attn: [place] [address] Care Team Providers Care Can Filling Room Sweeper Name Role Phone Unavailable Primary Care Provider Unavailabl e Encounter Details Date Type Department Care Team (Late st Contact Info) Description 06/15/2015 Orders Only Initial Department [address] ATTN: [place] [address] Provider, Historical Social History Tobacco Use Types [...] Date/Time Associated Diagnosis Comments LIPID PANEL Routine 06/15/2015 7:18 AM PIE BAKERY LABORER COMPREHENSIVE METABOLIC PANEL Routine 06/15/2015 7:18 AM PIE BAKERY LABORER documented in this encounter Results * (ABNORMAL) COMPREHENSIVE METABOLIC PANEL (06/15/2015 7:18 AM PIE BAKERY LABORER) GLUCOSE 101(H) 65 - 99 mg/dL [facility] Comment:Fasting reference in terval BUN 12 7 - 25 mg/dL [facility] CREATININE 0.85 0.70 - 1.25 mg/dL [facility] Comment: For patients >49 years of age, the reference limit for Creatinine is approximately 13% higher for people identified as -Armenian. GFR 93 > OR = 60 mL/min/1 .73m2 [facility] GFR, 107 > OR = 60 mL/min/1 .73m2 [facility] BUN/CREAT RATIO NOT APPLICABLE 6 - 22 (calc) [facility] SODIUM 139 135 - 146 mmol/L [facility] POTASSIUM 4.8 3.5 - 5.3 mmol/L [facility] CHLORIDE 104 98 - 110 mmol/L [facility] CO2 28 19 - 30 mmol/L [employer] [facility] CALCIUM 9.4 8.6 - 10.3 mg/dL [facility] TOTAL PROTEIN 7.2 6.1 - 8.1 g/dL [facility] ALBUMIN 4.2 3.6 - 5.1 g/dL [facility] [facility] GLOBULIN 3.0 1.9 - 3.7 g/dL (calc) [facility] ALBUMIN/GLOBULIN RATIO 1.4 1.0 - 2.5 (calc) [facility] [employer] [facility] BILIRUBIN TOTAL 0.7 0.2 - 1.2 mg/dL [facility] [employer] [facility] ALKALINE PHOSPHATASE 66 40 - 115 U/L [facility] [employer] [facility] AST 25 10 - 35 U/L [facility] [employer] [facility] ALT 39 9 - 46 U/L [employer] [facility] Comment: REPORT COMMENT: FASTING:YES Test Performed at: [employer] [address] [place] [address] ??[phone] MINO ZAMAN DO,MPH 06/15/2015 7:18 AM PIE BAKERY LABORER Ciro Fernandez DO CHEMISTRY ORDERABLES [employer] [facility] [address] [place] [address] * LIPID PANEL (06/15/2015 7:18 AM PIE BAKERY LABORER) CHOLESTEROL 127 125 - 200 mg/dL [facility] Comment: Test Performed at: [employer] ??[phone] MINO ZAMAN DO,MPH HDL 41 > OR = 40 mg/dL [facility] [employer] [facility] TRIGLYCERIDE 90 <150 mg/dL [employer] [facility] LDL CALCULATED 68 <130 mg/dL (calc) [employer] [facility] Comment: Desirable range <100 mg/dL for patients with CHD or diabetes and <70 mg/dL for diabetic patients with known heart disease. CHOL/HDL RATIO 3.1 < OR = 5.0 (calc) [facility] TOTAL NON-HDL CHOL(LDL+VLDL) 86 mg/dL (calc) [facility] Comment: Target for non-HDL cholesterol is 30 mg/dL higher than LDL cholesterol target. 06/15/2015 7:18 AM PIE BAKERY LABORER Ciro Fernandez DO CHEMISTRY ORDERABLES [employer] [facility] [address] [place] [address] documented in this encounter Visit Diagnoses Not on filedocumented in this encounter
--- OUTSIDE RECORDS SUMMARY | 2024-08-19 06:44 | XMS_ITS | Encounter Summary ---
Author Organization [facility] Address [address] [place] [address] Care Team Providers Care Sprinkler Installer Name Role Phone Unavailable Primary Care Provider Unavailabl e Reason for Visit * Reason Comments Medication Refill Encounter Details Date Type Department Care Team (Late st Contact Info) Description 02/05/2016 Refill [facility] Medicine - [facility] [address] [facility] [address] [place] [address] Ciro Fernandez, DO [address] [facility] [address] [place] [address] Social History Tobacco Use Types [...] Miscellaneous Notes * Telephone Encounter - Kay Jessu CMA - 02/06/2016 8:53 AM CDT Script faxed. documented in this encounter Plan of Treatment Not on file documented as of this encounter Visit Diagnoses Not on filedocumented in this encounter
--- OUTSIDE RECORDS SUMMARY | 2024-08-19 06:44 | XMS_ITS | Encounter Summary ---
Author Organization [facility] Address [address] [place] [address] Care Team Providers Care Central Supply Supervisor Name Role Phone Unavailable Primary Care Provider Unavailabl e Reason for Visit * Reason Comments Lesions on L side of head x 3 days. Encounter Details Date Type Department Care Team (Late st Contact Info) Description 03/09/2016 12:45 PM CDT Office Visit [facility] - [facility] [address]ena [address] [facility] [address] [place] [address] Ciro Fernandez, DO [address] [facility] [address] [place] [address] Neoplasm of uncertain behavior (Primary [...] Sign Reading Time Taken Comments Blood Pressure 122/62 03/09/2016 12:46 PM CDT Pulse 72 03/09/2016 12:46 PM CDT Temperature 36.2 ??C (97.2 ??F) 03/09/2016 12:46 PM C DT Respiratory Rate - - Oxygen Saturation - - Inhaled Oxygen Concentration - - Weight 94.3 kg (208 lb) 03/09/2016 12:46 PM CDT Height 180.3 cm (5' 11 ) 03/09/2016 12:46 PM CDT Body Mass Index 29.01 03/09/2016 12:46 PM CDT documented in this encounter Progress Notes * Ciro Fernandez DO - 03/09/2016 1:18 PM CDT Subjective: Brendon Aldana is a 65 y.o. male who is here to discuss a skin lesion of the left scalp. The lesion was noticed several years ago Lesion has changed in a few months. Symptoms associated with the lesion are: increasing diameter, increasing thickness. Patient denies itching, drainage, infection. Review of Systems - General ROS: negative for weight changes, fever Respiratory ROS: negative for cough, shortness of breath Cardiovascular ROS: negative for chest pain Neurological ROS: negative numbness/tingling or weakness Past Medical/Surgical/Social/Family History reviewed as well as Allergies and Medications. Objective: BP 122/62 mmHg Pulse 72 Temp(Src) 97.2 ??F (36.2 ??C) (Temporal) Ht 5' 11 (1.803 m) Wt 94.348 kg (208 lb) BMI 29.02 kg/m2 Appearance: alert, well appearing, and in no distress. HEENT: Throat and pharynx normal. Neck supple. No adenopathy or masses in the neck or supraclavicular regions. Thyroid: Thyroid not enlarged, no nodules or mass detected. CV: Heart sounds: normal rate, regular rhythm, normal S1, S2, no murmurs, rubs, clicks. Chest: Chest is clear, no wheezing or rales. Psych: Appropriate Lesion Location: left scalp Color: pink Diameter: 4 cm. Border/Symmetry: elevated, symmetrical, irregular surface. Inflammation: absent Assessment: Plan: Brendon was seen today for lesions. 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 Discussed Risks, Benefits and Alternatives of the current treatment regimen. Sun protection with sunscreens and clothing to prevent skin cancer is discussed. The signs and symptoms of malignant skin lesions are reviewed with the patient today. 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
--- OUTSIDE RECORDS SUMMARY | 2024-08-19 06:44 | XMS_ITS | Encounter Summary ---
Author Organization [facility] Address [address] [place] [address] Care Team Providers Care Physiology Teacher Name Role Phone Unavailable Primary Care Provider Unavailabl e Reason for Visit * Reason Onset Date Comments Medication Refill 05/03/2016 Encounter Details Date Type Department Care Team (Late st Contact Info) Description 05/04/2016 Refill [facility] Family Medicine - [facility] Abundio Yuan [address] [facility] [address] [place] [address] Ciro Fernandez DO [address] [address] [place] [address] Social History Tobacco Use Types [...] Miscellaneous Notes * Telephone Encounter - Kay Jeuss [facility] - 05/04/2016 8:06 AM CDTFrom: Brendon Aldana To: Ciro Fernandez DO Sent: 05/03/2016 5:18 AM CDT Subject: Medication Renewal Request Original authorizing provider: DO Brendon Tom would like a refill of the following medications: losartan (COZAAR) 50 mg tablet [Ciro Fernandez DO] Preferred pharmacy: [facility] - [address] Comment: Rx must be written as a 90 day Rx and sent to [facility]. Thank you. documented in this encounter Plan of Treatment Not on file documented as of this encounter Visit Diagnoses Not on filedocumented in this encounter
--- OUTSIDE RECORDS SUMMARY | 2024-08-19 06:44 | XMS_ITS | Encounter Summary ---
Author Organization [facility] Address [address] [place] [address] Care Team Providers Care Acls Nurse Name Role Phone Unavailable Primary Care Provider Unavailabl e Reason for Visit * Reason Comments Medication Refill Encounter Details Date Type Department Care Team (Late st Contact Info) Description 04/16/2016 Refill [facility] Family Medicine - [facility] [address] [facility] [address] [place] [address] Ciro Fernandez, DO [address] [facility] [address] [place] [address] Social History Tobacco Use Types [...] Telephone Encounter - Kay Jesus CMA - 04/16/2016 1:54 PM CDT Script faxed. documented in this encounter Plan of Treatment Not on file documented as of this encounter Visit Diagnoses Not on filedocumented in this encounter
--- OUTSIDE RECORDS SUMMARY | 2024-08-19 06:44 | XMS_ITS | Encounter Summary ---
Author Organization [facility] Address [address] [place] [address] Care Team Providers Care Soldering Machine Feeder Name Role Phone Unavailable Primary Care Provider Unavailabl e Reason for Visit * Reason Comments Cough Congestion, BA, chil ls, SP x 1 week. Encounter Details Date Type Department Care Team (Late st Contact Info) Description 08/11/2017 3:30 PM SHELVER Office Visit [facility] Medicine - [facility] Abundio Yuan [address] [facility] [address] [place] [address] Ciro Fernandez, DO [address] [facility] [address] [place] [address] Cough (Primary Dx); Influenza A Social History Tobacco Use Types Packs/Day [...] Sign Reading Time Taken Comments Blood Pressure 122/60 08/11/2017 3:03 PM SHELVER Pulse 68 08/11/2017 3:03 PM SHELVER Temperature 36.6 ??C (97.8 ??F) 08/11/2017 3:03 PM CS T Respiratory Rate - - Oxygen Saturation - - Inhaled Oxygen Concentration - - Weight 97.5 kg (215 lb) 08/11/2017 3:03 PM SHELVER Height 180.3 cm (5' 11 ) 08/11/2017 3:03 PM SHELVER Body Mass Index 29.99 08/11/2017 3:03 PM SHELVER documented in this encounter Progress Notes * Ciro Fernandez DO - 08/11/2017 4:03 PM CST SUBJECTIVE: Brendon Aldana is a 67 y.o. male who present complaining of flu-like symptoms: fevers, chills, myalgias, congestion, sore throat and cough for 2 days. He denies dyspnea / wheezing. Smoking status: non-smoker. No nausea, vomiting, diarrhea. No posterior neck pain. Tried over the counter antihistamines OTC cough/cold product of patient's choice PRN and fluids andrest with no improvement. Negative Sick Contacts OBJECTIVE: Blood pressure 122/60, pulse 68, temperature 97.8 ??F (36.6 ??C), temperature source Temporal, height 5' 11 (1.803 m), weight 97.5 kg (215 lb). Appears moderately ill but not toxic. HEENT: No conjunctivitis. TM's clear. Throat erythematous. Negative for Exudate. normal, pink nasal turbinates Neck: Supple. Lymphadenopathy is not present. No meningeal signs - Negative Brudinski and Kernigs Lungs: Clear to auscultation bilaterally. Good aeration CV: Regular rate and rhythm. Skin: No rash Abd: Soft, NT/ND, +BS. No HSM ASSESSMENT: Brendon was seen today for cough. Diagnoses and all orders for this visit: Cough - POC INFLUENZA A AND B Influenza A - oseltamivir (TAMIFLU) 75 mg capsule; Take 1 Capsule (75 mg) by mouth 2 times daily for 5 days. symptoms present < 48 hours, antiviral therapy is indicated Symptomatic therapy suggested: Rest, increase fluids, Tylenol for pain/fever, call back if not improving or worsening OTC meds as discussed Discussed Risks, Benefits and Alternatives of the current treatment regimen. VER documented in this encounter Plan of Treatment Not on file documented as of this encounter Procedures Procedure Name Priority Date/Time Associated Diagnosis Comments POC INFLUENZA A AND B ANTIGEN Routine 08/11/2017 3:24 PM SHELVER Cough documented in this encounter Results * (ABNORMAL) POC INFLUENZA A AND B (08/11/2017 3:24 PM SHELVER) INFLUENZA A AG POC Positive/Det ected(A) Negative/Not Detected [facility] INFLUENZA B AG POC Negative/Not Detected Negative/Not Detected [facility] INTERNAL KIT QC Pass Pass [facility] KIT LOT NUMBER POC [id number] [facility] KIT EXPIRATION DATE POC 02/24 [facility] Upper respiratory specimen (specimen) ENTIRE NASOPHARYNX / Unknown 08/11/2017 3:24 PM SHELVER Ciro Fernandez DO POINT OF CARE TESTIN G [facility] CLIA# [id number] [address] [address] documented in this encounter Visit Diagnoses Diagnosis Cough- Primary Influenza A Influenza with other respiratory manifestations documented in this encounter
--- OUTSIDE RECORDS SUMMARY | 2024-08-19 06:44 | XMS_ITS | Encounter Summary ---
Author Organization [facility] Address [address] [place] [address] Care Team Providers Care Medical Recruiter Name Role Phone Unavailable Primary Care Provider Unavailabl e Reason for Visit * Reason Comments Cough Encounter Details Date Type Department Care Team (Late st Contact Info) Description 06/08/2017 12:30 PM CDT Office Visit [facility] Medicine - [facility] Abundio Yuan [address] [facility] [facility] [address] [place] [address] Ciro Fernandez, DO [address] [facility] [address] [place] [address] Cough (Primary Dx); Post-infection bronchospasm; Acute bronchitis, unspecified organism Social History Tobacco [...] Sign Reading Time Taken Comments Blood Pressure 122/70 06/08/2017 12:19 PM CDT Pulse 68 06/08/2017 12:19 PM CDT Temperature 36.7 ??C (98 ??F) 06/08/2017 12:19 PM CDT Respiratory Rate - - Oxygen Saturation - - Inhaled Oxygen Concentration - - Weight 96.2 kg (212 lb) 06/08/2017 12:19 PM CDT Height 180.3 cm (5' 11 ) 06/08/2017 12:19 PM CDT Body Mass Index 29.57 06/08/2017 12:19 PM CDT documented in this encounter Progress Notes * Ciro Fernandez, - 06/08/2017 12:45 PM CDT 67 y.o. male presents with a history of productive of yellow sputum cough. States also with Rhinorrhea and went to [facility] and diagnosed with sinus infection. Given Omnicef but still with symptoms. Then was evaluated here about 10 days ago and placed on Levaquin. States much better but still with a cough and some lung tightening if he is talking for a long period of time at work. Patient with no chest pain. Denies nausea, [...] weakness Reviewed PMH,ALL,Meds,PSH, Soc Hx Blood pressure 122/70, pulse 68, temperature 98 ??F (36.7 ??C), temperature source Temporal, height5' 11 (1.803 m), weight 96.2 kg (212 lb). Gen'l: NAD HEENT: No conjunctivitis. TM's normal. Throat clear, Mildly Erythematous. pink, swollen nasal turbinates with clear rhinorrhea. Neck: Supple Lungs: CTA B/L. No wheezing, crackles, rhonchi. normal respiratory effort CV: RRR without murmurs Skin: No rash noted. Ext: No edema. A/P: Brendon was seen today for cough. Diagnoses and all orders for this visit: Cough - mometasone-formoterol (DULERA) 100-5 mcg/actuation inhaler; Take 1 Puff by inhalation 2 times daily. - albuterol HFA 90 mcg inhaler; Take 2 Puffs by inhalation every 8 hours as needed for Shortness ofBreath. Nasal saline. Post-infection bronchospasm - mometasone-formoterol (DULERA) 100-5 mcg/actuation inhaler; Take 1 Puff by inhalation 2 times daily. - albuterol HFA 90 mcg inhaler; Take 2 Puffs by inhalation every 8 hours as needed for Shortness ofBreath. Singulair Acute bronchitis, unspecified organism - mometasone-formoterol (DULERA) 100-5 mcg/actuation inhaler; Take 1 Puff by inhalation 2 times daily. - albuterol HFA 90 mcg inhaler; Take 2 Puffs by inhalation every 8 hours as needed for Shortness ofBreath. OTC meds as discussed Rest Increase Fluids Discussed Risks, Benefits and Alternatives of the current treatment regimen. Call or return to clinic prn if these symptoms worsen or fail to improve as anticipated. documented in this encounter Plan of Treatment Not on file documented as of this encounter Visit Diagnoses Diagnosis Cough- Primary Post-infection bronchospasm Acute bronchospasm Acute bronchitis, unspecified organism documented in this encounter
--- OUTSIDE RECORDS SUMMARY | 2024-08-19 06:44 | XMS_ITS | Encounter Summary ---
Author Organization [facility] Address [address] [place] [address] Care Team Providers Care Dope Heater Name Role Phone Unavailable Primary Care Provider Unavailabl e Reason for Visit * Reason Onset Date Comments Results 10/05/2016 Encounter Details Date Type Department Care Team (Late st Contact Info) Description 10/05/2016 Telephone [facility] Family Medicine - [facility] Kwabena [address] [facility] [address] [place] [address] Ciro Fernandez DO [address] [facility] [address] [place] [address] Results Social History Tobacco Use [...] * Telephone Encounter - Jennifer Burnett - 10/05/2016 1:43 PM CST PT INFORMED/SB LIFT TRUCK OPERATOR * Telephone Encounter - Jennifer Burnett - 10/05/2016 1:43 PM CST ----- Message from Ciro Fernandez DO sent at 10/05/2016 12:33 PM TIER LIFT TRUCK OPERATOR ----- Your laboratory studies have been received, please return to office for a follow up examination specifically for a 30 minute visit because you are due for a WELL ADULT EXAMINATION. LIFT TRUCK OPERATOR * Telephone Encounter - Jennifer Burnett - 10/05/2016 1:42 PM CST ----- Message from Ciro Fernandez DO sent at 10/05/2016 12:33 PM TIER LIFT TRUCK OPERATOR ----- Your laboratory studies have been received, please return to office for a follow up examination specifically for a 30 minute visit because you are due for a WELL ADULT EXAMINATION. LIFT TRUCK OPERATOR documented in this encounter Plan of Treatment Not on file documented as of this encounter Visit Diagnoses Not on filedocumented in this encounter
--- OUTSIDE RECORDS SUMMARY | 2024-08-19 06:44 | XMS_ITS | Encounter Summary ---
Author Organization [facility] Address [address] [place] [address] Care Team Providers Care Steel Placer Name Role Phone Unavailable Primary Care Provider Unavailabl e Reason for Visit * Reason Onset Date Comments Medication Refill 02/02/2017 Encounter Details Date Type Department Care Team (Late st Contact Info) Description 02/02/2017 Refill [facility] Family Medicine - [facility] Abundio Yuan [address] [facility] [address] [place] [address] Ciro Fernandez DO [address] [facility] [address] [place] [address] Social History Tobacco Use Types [...] Miscellaneous Notes * Telephone Encounter - Edna Jackson, [facility] - 02/02/2017 4:17 PM CDTFrom: Brendon Aldana To: Ciro Fernandez DO Sent: 02/02/2017 4:15 PM CDT Subject: Medication Renewal Request Original authorizing provider: DO Brendon Tom would like a refill of the following medications: cetirizine-pseudoephedrine sr 12 hour (ZyrTEC-D) 5-120 mg tablet [Ciro Fernandez DO] Preferred pharmacy: [id number] [address] [place], [place] [address] Delivery method: Pickup Comment: documented in this encounter Plan of Treatment Not on file documented as of this encounter Visit Diagnoses Not on filedocumented in this encounter
--- OUTSIDE RECORDS SUMMARY | 2024-08-19 06:44 | XMS_ITS | Encounter Summary ---
Author Organization [facility] Address [address] [place] [address] Care Team Providers Care Veneer Sheet Repairer Name Role Phone Unavailable Primary Care Provider Unavailabl e Reason for Visit * Reason Onset Date Comments feeling worse 05/22/2017 Encounter Details Date Type Department Care Team (Late st Contact Info) Description 05/22/2017 Telephone [facility] Family Medicine - [facility] Kw[address]ena [address] [facility] [address] [place] [address] Ciro Fernandez, DO [address] [facility] [address] [place] [address] feeling worse Social History Tobacco Use Types Packs/Day Years [...] Telephone Encounter - Edna Jackson RMA - 05/22/2017 9:[address] Fernandez states that we can start the patient on tessalon. Patient notified. Prescription sent to pharmacy. * Telephone Encounter - Marine Barrett - 05/22/2017 8:12 AM CDT Patient was seen yesterday and he woke up this morning and can barely talk and his cough is worse. Is there anything Dr Fernandez can prescribe for his cough? Pharmacy is [facility] documented in this encounter Plan of Treatment Not on file documented as of this encounter Visit Diagnoses Not on filedocumented in this encounter
--- OUTSIDE RECORDS SUMMARY | 2024-08-19 06:44 | XMS_ITS | Encounter Summary ---
Author Organization [facility] Address [address] [place] [address] Care Team Providers Care Courtesy Clerk Name Role Phone Unavailable Primary Care Provider Unavailabl e Reason for Visit * Reason Comments Sinus Pain congestion, cough x 4days Encounter Details Date Type Department Care Team (Late st Contact Info) Description 07/09/2015 11:45 AM SWEATBAND PERFORATOR Office Visit [facility] Medicine - [facility] [address] [facility] [address] [place] [address] Ciro Fernandez, DO 107 [facility] [address] [place] [address] Acute recurrent frontal sinusitis (Primary Dx) Social History Tobacco Use [...] Sign Reading Time Taken Comments Blood Pressure 138/72 07/09/2015 11:38 AM SWEATBAND PERFORATOR Pulse 68 07/09/2015 11:38 AM SWEATBAND PERFORATOR Temperature 37.1 ??C (98.7 ??F) 07/09/2015 11:[address] Respiratory Rate - - Oxygen Saturation - - Inhaled Oxygen Concentration - - Weight 98 kg (216 lb) 07/09/2015 11:38 AM SWEATBAND PERFORATOR Height 177.8 cm (5' 10 ) 07/09/2015 11:38 AM SWEATBAND PERFORATOR Body Mass Index 30.99 07/09/2015 11:38 AM SWEATBAND PERFORATOR documented in this encounter Progress Notes * Shorty Fernandezt Yeni, DO - 07/09/2015 1:21 PM CST Subjective: Brendon Aldana 65 y.o. male presents with a 1 week [...] well as Allergies and Medications. Objective: BP 138/72 mmHg Pulse 68 Temp(Src) 98.7 ??F (37.1 ??C) (Temporal) Ht 5' 10 (1.778 m) Wt 216lb (97.977 kg) BMI 30.99 kg/m2 Gen'l: NAD HEENT: Perrla, eomi. Sinuses tender to palpation over the bilateral maxillary sinuses. Throat erythematous without exudates. red, swollen nasal turbinates. yellow and white Nasal Discharge. Ears Normal. Neck: Supple. No lymphadenopathy. Lungs: Clear to auscultation bilaterally. CV: RRR. No murmur. Skin: No rash noted on examination. A/P: Brendon was seen today for sinus pain. Diagnoses and associated orders for this visit: Acute recurrent frontal sinusitis - cefdinir (OMNICEF) 300 mg capsule; Take 1 Capsule (300 mg) by mouth every 12 hours for 10 days. - mometasone (NASONEX) 50 mcg/actuation [place], Non-Aerosol; Administer 2 Sprays in each nostril daily. OTC Meds as discussed Increase Fluids and Rest Discussed Risks, Benefits and Alternatives of the current treatment regimen. Call or return to clinic prn if these symptoms worsen or fail to improve as anticipated. TBAND PERFORATOR documented in this encounter Plan of Treatment Not on file documented as of this encounter Visit Diagnoses Diagnosis Acute recurrent frontal sinusitis- Primary Acute frontal sinusitis documented in this encounter
--- OUTSIDE RECORDS SUMMARY | 2024-08-19 06:44 | XMS_ITS | Encounter Summary ---
Author Organization [facility] Address [address] [place] [address] Care Team Providers Care Still Operator Brandy Name Role Phone Unavailable Primary Care Provider Unavailabl e Reason for Visit * Reason Comments Medication Refill Encounter Details Date Type Department Care Team (Late st Contact Info) Description 07/06/2015 Refill [facility] Medicine - [facility] [address] [facility] [address] [place] [address] Ciro Fernandez, DO 107 [facility] [address] [place] [address] Social History Tobacco Use Types [...] Telephone Encounter - Kay Jesus CMA - 07/08/2015 10:45 AM INLAYER SILVER Script faxed. YER SILVER documented in this encounter Plan of Treatment Not on file documented as of this encounter Visit Diagnoses Not on filedocumented in this encounter
--- OUTSIDE RECORDS SUMMARY | 2024-08-19 06:45 | XMS_ITS | Encounter Summary ---
Author Organization [facility] Address [address] [place] [address] Care Team Providers Care Burring Wheel Operator Name Role Phone Unavailable Primary Care Provider Unavailabl e Reason for Visit * Outpatient Services (Routine) - Closed Specialty Diagnoses / Procedures Referred By Contac t Referred To Contact Radiology Diagnoses Cough Procedures XR CHEST Ciro Fernandez DO [address] [place] [address] [place] [address] Referral ID Status Reason Start Date Expiration Date Visits Re quested Visits Authorized [id number] Closed 01/10/2014 02/10/2015 1 1 Encounter Details Date Type Department Care Team (Latest Contact Info) Description 01/10/2014 11:35 AM CDT - 01/10/2014 11:59 PM CDT Hospital Encounter [facility] [place] [address] Ciro Fernandez DO [address] [place] [address] Discharge Disposition: Home or Self Care [...] Sig Dispensed Refills Start Date End Date acetaminophen (TYLENOL) 500 mg tablet Take 1,000 mg by mouth every 6 hours as needed. 11/10/2016 omeprazole (PRILOSEC) 20 mg Capsule, Delayed Release(E.C.) Take 2 Caps by mouth daily. 180 Cap 0 01/10/2014 07/21/2014 ibuprofen (MOTRIN) 800 mg tablet Take 1 Tab by mouth every 6 hours as needed for Pain. 180 Tab 0 12/25/2013 06/26/2014 losartan-hydrochlorothi azide (HYZAAR) 50-12.5 mg tablet Take 1 Tab by mouth daily. 90 Tab 1 12/25/2013 05/09/2014 fluticasone (FLONASE) 50 mcg/spray [place], SuspensionIndications:A llergic rhinitis Administer 2 Sprays in each nostril daily. 16 Gram 5 12/18/2013 05/28/2014 ZYRTEC-D 5-120 mg tablet TAKE ONE TABLET BY MOUTH TWO TIMES A DAY 72 Tab 3 11/01/2013 2014 simvastatin (ZOCOR) 40 mg Oral tablet TAKE 1 TABLET BY MOUTH DAILY IN THE EVENING 90 Tab 2 01/03/2013 04/24/2014 tadalafil (CIALIS) 20 mg Oral tablet Take 1 Tab by mouth 1 time daily as needed for Other (See Comment). 6 Tab 3 12/30/2011 08/20/2014 documented as of this encounter Plan of Treatment Not on file documented as of this encounter Procedures Procedure Name Priority Date/Time Associated Diagnosis Comments XR CHEST PA AND LATERAL 2 VW Routine 01/10/2014 11:49 AM CDT Cough documented in this encounter Results * XR CHEST PA AND LATERAL (01/10/2014 11:49 AM CDT) Anatomical Region Laterality Modality Chest Computed Radiogr aphy 01/10/2014 11:3 8 AM CDT Impressions 01/10/2014 12:19 PM CDT IMPRESSION: No acute disease. ?? Dictated from [facility] Narrative 01/10/2014 12:19 PM CDT PA AND LATERAL CHEST HISTORY: ??Cough. FINDINGS: ??Since a previous examination of January 27, 2013, there has been no significant interval change. The lung dsouza are clear and well aerated, without significant infiltrate. There is no pneumothorax or pleural effusion. The heart size is normal. ?? Procedure Note Damaris Harrison MD - 01/10/2014 PA AND LATERAL CHEST HISTORY: Cough. FINDINGS: Since a previous examination of January 27, 2013, there has been no significant interval change. The lung dsouza are clear and well aerated, without significant infiltrate. There is no pneumothorax or pleural effusion. The heart size is normal. IMPRESSION IMPRESSION: No acute disease. Dictated from [facility] Ciro Fernandez DO DIAGNOSTIC IMAGING O RDERABLES documented in this encounter Visit Diagnoses Diagnosis Cough documented in this encounter
--- OUTSIDE RECORDS SUMMARY | 2024-08-19 06:45 | XMS_ITS | Encounter Summary ---
Author Organization [facility] Address [address] [place] [address] Care Team Providers Care Senior Advisory Name Role Phone Unavailable Primary Care Provider Unavailabl e Reason for Visit * Auth/Cert - Closed Specialty Diagnoses / Procedures Referred By Contac t Referred To Contact Gastroenterology Diagnoses unknown Procedures COLONOSCOPY [facility] [address] [place] [address] Referral ID Status Reason Start Date Expiration Date Visits Re quested Visits Authorized [id number] Closed 1 1 Encounter Details Date Type Department Care Team (Late st Contact Info) Description 01/12/2014 9:40 AM CDT Anesthesia Event [facility] GI Lab S [facility] [address] [place] [address] Landry Medrano MD [address] [place] [address] Anesthesia Record Procedure Summary Procedure Name Responsible Anesthesiologist Anesthesia Start Time Anesthesia Stop Time COLONOSCOPY (Anus) Landry Medrano MD 01/12/14 0940 01/12/14 1022 Events Date Time Event Comment 01/12/2014 0854 0937 AN Equip Check Anesthesia eq uipment and materials checked in accordance with local policy. 0940 An Start 0941 An Start Data 0943 Pre-Induction Immediate pre- induction anesthetic assessment performed. Vital signs as noted on graphic. 1000 An Induction 1001 Anesthesia Ready 1017 an stop data 1022 An Stop Meds Name Total propofol (DIPRIVAN) 10??mg/mL injection 300 mg lidocaine (XYLOCAINE) 2% injection 100 m g lactated ringers solution 900 mL * Agents Name O2 Inspired O2 N2O Inspired N2O O2 * Blood No blood administrations on file. Lines, Drains, and Airways Type Details Placement Removal Peripheral IV Pre-Hospital Start: No; Orientation: Left; Location: Hand; Device: Angiocath; Gauge: 20 gauge; Insertion Attempts: 1 (per hilda castro rn); Patient Tolerance: tolerated well; Removal Indication: no longer indicated; Removal Interventions: catheter intact, pressure dressing, direct pressure 01/12/14 0818 by Tiara Moon RN 01/12/14 1027 by Lizabeth Paige RN Supraglottic Airway Type: nasal cannula; Confirmation: end tidal CO2, satisfactory chest rise 01/12/14 0937 by Kaye Paul, LOSS CONTROL MANAGER 01/12/14 1027 by Lizabeth Paige RN documented in this encounter Social History [...] OR Notes * Anesthesia Postprocedure Evaluation - Sushil Warner AA - 01/12/2014 10:27 AM CDT Post Anesthesia Evaluation Vitals: BP 110/66 Pulse 69 Temp(Src) 36.9 ??C (Temporal) Resp 18 Ht 5' 11 (1.803 m) Wt 200 lb 12.8 oz (91.082 kg) BMI 28.02 kg/m2 SpO2 98% Pain Rating: Pain Rating: Rest: 2 (01/12/14 1029) Nausea/Vomiting: no nausea and no vomiting Post-Op hydration: well hydrated Respiratory function: no respiratory symptoms Airway patency: normal Cardiovascular function: Normal - Regular rate and rhythm Mental status, LOC: 0=alert; keenly responsive Patient participated in evaluation: yes Anesthetic complications: no SANDRA Bolaños * Anesthesia Preprocedure Evaluation - Landry Medrano MD - 01/12/2014 8:53 AM CDT Anesthesia Evaluation Anesthesia Plan ASA 2 MAC Anesthetic plan and risks discussed with Patient. Plan discussed with Nurse Gore Seamer. Pre-Anesthesia Evaluation - Long Form 01/12/2014 8:53 AM Name: Brendon Aldana Age: 63 y.o. Sex: male CSN: [id number] Procedure: Procedure(s): COLONOSCOPY Surgeons/Assistants: Surgeon(s) and Role: * Modesta Wise, DO - Primary Allergies Allergen Reactions ??? Bactrim (Sulfamethoxazole-Trimethoprim) Rash ??? Medrol (Methylprednisolone) Rash and Other (See Comments) redness Prescriptions prior to admission Medication Sig Dispense Refill ??? acetaminophen (TYLENOL) 500 mg tablet Take 1,000 mg by mouth every 6 hours as needed. ??? benzonatate (TESSALON) 200 mg capsule Take 1 Cap by mouth 3 times daily as needed for Cough. 30Cap 0 ??? omeprazole (PRILOSEC) 20 mg Capsule, Delayed Release(E.C.) Take 2 Caps by mouth daily. 180 Cap 0 ??? ibuprofen (MOTRIN) 800 mg tablet Take 1 Tab by mouth every 6 hours as needed for Pain. 180 Tab 0 ??? losartan-hydrochlorothiazide (HYZAAR) 50-12.5 mg tablet Take 1 Tab by mouth daily. 90 Tab 1 ??? fluticasone (FLONASE) 50 mcg/spray [place], Suspension Administer 2 Sprays in each nostril daily.16 Gram 5 ??? ZYRTEC-D 5-120 mg tablet TAKE ONE TABLET BY MOUTH TWO TIMES A DAY 72 Tab 3 ??? montelukast (SINGULAIR) 10 mg tablet Take 1 Tab by mouth daily at bedtime. 30 Tab 0 ??? simvastatin (ZOCOR) 40 mg Oral tablet TAKE 1 TABLET BY MOUTH DAILY IN THE EVENING 90 Tab 2 ??? tadalafil (CIALIS) 20 mg Oral tablet Take 1 Tab by mouth 1 time daily as needed for Other (See Comment). 6 Tab 3 Patient Active Problem List Diagnosis Date Noted ??? AK (actinic keratosis) 05/26/2010 ??? Allergic Rhinitis 11/11/2009 ??? Osteoarthritis 01/02/2009 ??? Esophageal Reflux ??? Essential Hypertension, Benign ??? Pure Hypercholesterolemia Past Medical History Diagnosis Date ??? Community acquired pneumonia ??? Essential hypertension ??? Contact dermatitis and other eczema, due to unspecified cause ??? [place] (hard of hearing) Past Surgical History Procedure Laterality Date ??? 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 Hx heart catheterization 1992 ??? Hx vasectomy 1980 History Substance Use Topics ??? Smoking status: Never Smoker ??? Smokeless tobacco: Never Used ??? Alcohol Use: No Family History Problem Relation Age of Onset [...] Mesothelioma Neg Hx ??? Tuberculosis Neg Hx Previous Anesthesia Problems/Concerns: No anesthesia problems/complications History of PONV No Review of Systems Cardiovascular: +htn Respiratory: +snoring Gastroenterology: positive for reflux symptoms, bowel prep performed PHYSICAL EXAM BP 140/88 Pulse 69 Temp(Src) 36.1 ??C (Temporal) Resp 16 Ht 5' 11 (1.803 m) Wt 200 lb 12.8 oz (91.082 kg) BMI 28.02 kg/m2 SpO2 98% Weight: Weight: 200 lb 12.8 oz (91.082 kg) (01/12/14 0807) Height: Ht Readings from Last 1 Encounters: 01/12/14 5' 11 (1.803 m) BMI: Body mass index is 28.02 kg/(m^2). Airway: normal range of motion: Airway Class: II (soft palate, uvula, fauces visible); Thyromental Distance 2 Finger Breadth Lungs: clear to auscultation bilaterally, normal respiratory effort Heart: regular rate and rhythm, S1, S2 normal, no murmur, click, rub or gallop Neuro: alert, oriented x 3, no defects noted in general exam. Vascular Access: Peripheral Line LABS No results found for this basename: WBC, MANUALWBC, HGB, HGBPOC, HCT, HCTPOC, PLT, MCV Lab Results Component Value Date/Time SODIUM 141 09/30/2013 7:33 AM POTASSIUM 4.9 09/30/2013 7:33 AM CHLORIDE 102 09/30/2013 7:33 AM CO2 27 09/30/2013 7:33 AM CALCIUM 9.5 09/30/2013 7:33 AM BUN 17 09/30/2013 7:33 AM CREATININE 0.95 09/30/2013 7:33 AM GLUCOSE 98 09/30/2013 7:33 AM BUN/CREAT RATIO NOT APPLICABLE 09/30/2013 7:33 AM No results found for this basename: INR, PT, PROTIMEPOC No results found for this basename: HCGURPOC, HCGQUALUR, HCGQUAL, HCGQUANT, HCGINTACT No results found for this basename: glucpoc EKG: Other Studies/Considerations: None ASA Physical Status: ASA 2 - Patient with mild systemic disease with no functional limitations I have seen and examined this patient and confirm that all data is current and accurate. Yes Choice of Anesthesia/Anesthesia Plan: Proceed and Monitored Anesthesia Care I have discussed the anesthetic options and the risks/benefits with the patient/family. Questions have been solicited and answered. Yes Landry Medrano MD documented in this encounter Plan of Treatment Not on file documented as of this encounter Visit Diagnoses Not on filedocumented in this encounter Administered Medications Inactive Administered Medications - up to 3 most recent administrations Medication Order MAR Action Action Date Dose Rate Site lidocaine 2 % (XYLOCAINE) injection INTRA-PROCEDURE PRN, Starting on Wed01/12/14 at 1000, Until Wed01/12/14 at 1022, Other (See Comment), Routine, Anesthesia Intra-op Given 01/12/2014 10:00 AM CDT 100 mg propofol (DIPRIVAN) injection INTRA-PROCEDURE PRN, Starting on Wed01/12/14 at 1000, Until Wed01/12/14 at 1022, Anesthesia Intra-op Given 01/12/2014 10:13 AM CDT 50 mg Given 01/12/2014 10:10 AM CDT 50 mg Given 01/12/2014 10:06 AM CDT 50 mg documented in this encounter
--- OUTSIDE RECORDS SUMMARY | 2024-08-19 06:45 | XMS_ITS | Encounter Summary ---
Author Organization [facility] Address [address] [place] [address] Care Team Providers Care Charcoal Burner Beehive Kiln Name Role Phone Unavailable Primary Care Provider Unavailabl e Encounter Details Date Type Department Care Team (Late st Contact Info) Description 09/11/2014 Abstract [facility] Medicine - [facility] [place] [address] [facility] [address] [place] [address] Ciro Fernandez, DO 107 [facility] [address] [place] [address] Social History Tobacco Use Types [...]
--- OUTSIDE RECORDS SUMMARY | 2024-08-19 06:45 | XMS_ITS | Encounter Summary ---
Author Organization [facility] Address [address] [place] [address] Care Team Providers Care Office Services Manager Name Role Phone Unavailable Primary Care Provider Unavailabl e Reason for Visit * Reason Onset Date Comments Results 01/10/2014 Encounter Details Date Type Department Care Team (Late st Contact Info) Description 01/10/2014 Telephone [facility] Family Medicine - [facility] 150 [address] [facility] [address] [place] [address] Ciro Fernandez, DO [address] [facility] [address] [place] [address] Results Social History Tobacco Use [...] * Telephone Encounter - Jennifer Burnett - 01/10/2014 2:12 PM CDT INFORMED/SB * Telephone Encounter - Jennifer Burnett - 01/10/2014 2:12 PM CDT Message copied by JENNIFER BURNETT on WedJan 10, 2014 2:12 PM ------ Message from: SARAH FERNANDEZ Created: WedJan 10, 2014 12:50 PM CXR is normal. ------ documented in this encounter Plan of Treatment Not on file documented as of this encounter Visit Diagnoses Not on filedocumented in this encounter
--- OUTSIDE RECORDS SUMMARY | 2024-08-19 06:45 | XMS_ITS | Encounter Summary ---
Author Organization [facility] Address [address] [place] [address] Care Team Providers Care Screen Making Technician Name Role Phone Unavailable Primary Care Provider Unavailabl e Reason for Visit * Reason Comments Sinus Pain congestion x 6 days Encounter Details Date Type Department Care Team ([facility] st Contact Info) Description 05/15/2014 11:30 AM CDT Office Visit [facility] Medicine - [facility] [place] [address] [facility] [address] [place] [address] Ciro Fernandez, DO [address] [facility] [address] [place] [address] Sinusitis, acute (Primary Dx) Social History Tobacco Use Types [...] Sign Reading Time Taken Comments Blood Pressure 126/74 05/15/2014 11:11 AM CDT Pulse 68 05/15/2014 11:11 AM CDT Temperature 37 ??C (98.6 ??F) 05/15/2014 11:11 AM CDT Respiratory Rate - - Oxygen Saturation - - Inhaled Oxygen Concentration - - Weight 96.6 kg (213 lb) 05/15/2014 11:11 AM CDT Height 180.3 cm (5' 11 ) 05/15/2014 11:11 AM CDT Body Mass Index 29.71 05/15/2014 11:11 AM CDT documented in this encounter Progress Notes * Ciro Fernandez DO - 05/15/2014 11:43 AM CDT Subjective: Brendon Aldana 64 y.o. male presents with a 1 week history of cough, sore throat, postnasal discharge, MORALES. Tried oral decongestants, nasal steroids and over the counter antihistamines OTC cough/cold productof patient's choice PRN and fluids and rest [...] well as Allergies and Medications. Objective: BP 126/74 Pulse 68 Temp(Src) 98.6 ??F (37 ??C) (Temporal) Ht 5' 11 (1.803 m) Wt 213 lb (96.616 kg) BMI 29.72 kg/m2 Gen'l: NAD HEENT: [place]err[place], eomi. Sinuses tender to palpation over the bilateral maxillary sinuses. Throat erythematous without exudates. red nasal turbinates. clear and yellow Nasal Discharge. Ears Normal. Neck: Supple. No lymphadenopathy. Lungs: Clear to auscultation bilaterally. CV: RRR. No murmur. Skin: No rash noted on examination. A/P: Brendon was seen today for sinus pain. Diagnoses and associated orders for this visit: Sinusitis, acute - doxycycline hyclate (VIBRAMYCIN) 100 mg capsule; Take 1 Cap by mouth every 12 hours for 10 days. OTC Meds as discussed Increase Fluids and Rest Discussed Risks, Benefits and Alternatives of the current treatment regimen. Call or return to clinic prn if these symptoms worsen or fail to improve as anticipated. documented in this encounter Plan of Treatment Not on file documented as of this encounter Visit Diagnoses Diagnosis Sinusitis, acute- Primary Acute sinusitis, unspecified documented in this encounter
--- OUTSIDE RECORDS SUMMARY | 2024-08-19 06:45 | XMS_ITS | Encounter Summary ---
Author Organization [facility] Address [address] [place] [address] Care Team Providers Care Belt Tender Name Role Phone Unavailable Primary Care Provider Unavailabl e Reason for Visit * Reason Onset Date Comments Medication Refill 06/26/2014 Encounter Details Date Type Department Care Team (Late st Contact Info) Description 06/26/2014 Refill [facility] Family Medicine - [facility] [address] [facility] [address] [place] [address] Ciro Fernandez DO [address] [facility] [address] [place] [address] Pure hypercholesterolemia (Primary Dx) Social History Tobacco Use Types [...] Notes * Telephone Encounter - Kay Jesus, [facility] - 06/26/2014 9:23 AM CSTFrom: Brendon Aldana To: Ciro Fernandez DO Sent: 06/26/2014 3:43 AM CHAIR INSPECTOR Subject: Medication Renewal Request Original authorizing provider: DO Brendon Tom would like a refill of the following medications: ibuprofen (MOTRIN) 800 mg tablet [Ciro Fernandez DO] simvastatin (ZOCOR) 40 mg tablet [Ciro Fernandez DO] Preferred pharmacy: [facility] - [address] Comment: Rx must be written as a 90 day rx and sent to [facility]. Thank you. R INSPECTOR documented in this encounter Plan of Treatment Not on file documented as of this encounter Visit Diagnoses Diagnosis Pure hypercholesterolemia- Primary documented in this encounter
--- OUTSIDE RECORDS SUMMARY | 2024-08-19 06:45 | XMS_ITS | Encounter Summary ---
Author Organization [facility] Address [address] [place] [address] Care Team Providers Care Relief Man Name Role Phone Unavailable Primary Care Provider Unavailabl e Reason for Visit * Reason Onset Date Comments Results 11/14/2014 Encounter Details Date Type Department Care Team (Late st Contact Info) Description 11/14/2014 Telephone [facility] Family Medicine - [facility] [place] [address] [facility] [address] [place] [address] Ciro Fernandez DO [address] [facility] [address] [place] [address] Results Social History Tobacco Use [...] * Telephone Encounter - Jennifer Burnett - 11/14/2014 4:47 PM CDT Pt informed/sb * Telephone Encounter - Jennifer Burnett - 11/14/2014 4:47 PM CDT ----- Message from Ciro Fernandez DO sent at 11/12/2014 3:06 PM CDT ----- Labs are overall in good range. It is just time for your physical. documented in this encounter Plan of Treatment Not on file documented as of this encounter Visit Diagnoses Not on filedocumented in this encounter
--- OUTSIDE RECORDS SUMMARY | 2024-08-19 06:45 | XMS_ITS | Encounter Summary ---
Author Organization [facility] Address [address] [place] [address] Care Team Providers Care Platform Supervisor Name Role Phone Unavailable Primary Care Provider Unavailabl e Reason for Visit * Reason Onset Date Comments Medication Refill 11/11/2014 Encounter Details Date Type Department Care Team (Late st Contact Info) Description 11/11/2014 Refill [facility] [address] [facility] [address] [place] [address] Ciro Fernandez DO 107 [facility] [address] [place] [address] Social History Tobacco Use [...] Telephone Encounter - Kay Jesus CMA - 11/12/2014 10:11 AM CDTFrom: Brendon Aldana To: Ciro Fernandez DO Sent: 11/11/2014 5:55 PM CDT Subject: Medication Renewal Request Original authorizing provider: DO Brendon Tom would like a refill of the following medications: ibuprofen (MOTRIN) 800 mg tablet [Ciro Fernandez DO] Preferred pharmacy: [facility] [address] Comment: Rx must be written as a 90 day rx and sent to [facility]. Thank you. documented in this encounter Plan of Treatment Not on file documented as of this encounter Procedures Procedure Name Priority Date/Time Associated Diagnosis Comments PSA Routine 11/10/2014 7:13 AM CDT LIPID PANEL Routine 11/10/2014 7:13 AM CDT COMPREHENSIVE METABOLIC PANEL Routine 11/10/2014 7:13 AM CDT documented in this encounter Results * (ABNORMAL) COMPREHENSIVE METABOLIC PANEL (11/10/2014 7:13 AM CDT) GLUCOSE 104(H) 65 - 99 mg/dL [facility] Comment:Fasting reference in terval BUN 12 7 - 25 mg/dL [facility] CREATININE 0.86 0.70 - 1.25 mg/dL [facility] Comment: For patients >49 years of age, the reference limit for Creatinine is approximately 13% higher for people identified as -[place]. GFR 93 > OR = 60 mL/min/1 .73m2 [facility] GFR, 108 > OR = 60 mL/min/1 .73m2 [facility] BUN/CREAT RATIO NOT APPLICABLE 6 - 22 (calc) [facility] SODIUM 139 135 - 146 mmol/L [facility] POTASSIUM 4.3 3.5 - 5.3 mmol/L [facility] CHLORIDE 103 98 - 110 mmol/L [facility] CO2 28 19 - 30 mmol/L [facility] CALCIUM 9.6 8.6 - 10.3 mg/dL [facility] TOTAL PROTEIN 7.6 6.1 - 8.1 g/dL [facility] ALBUMIN 4.3 3.6 - 5.1 g/dL [facility] GLOBULIN 3.3 1.9 - 3.7 g/dL (calc) [facility] ALBUMIN/GLOBULIN RATIO 1.3 1.0 - 2.5 (calc) [facility] BILIRUBIN TOTAL 0.6 0.2 - 1.2 mg/dL [facility] ALKALINE PHOSPHATASE 79 40 - 115 U/L [facility] AST 24 10 - 35 U/L [facility] ALT 36 9 - 46 U/L [facility] [employer] [facility] Comment: REPORT COMMENT: FASTING:YES Test Performed at: [employer] [facility] ??[phone] MINO ZAMAN DO,MPH 11/10/2014 7:13 AM CDT Ciro Fernandez DO CHEMISTRY ORDERABLES Performing Organization Address [facility] Co de Phone Number [employer] [facility] [address] [place] [address] * LIPID PANEL (11/10/2014 7:13 AM CDT) Pathologist [facility] CHOLESTEROL 133 125 - 200 mg/dL [facility] [employer] [facility] Comment: Test Performed at: [employer] [address] ??[phone] MINO ZAMAN DO,MPH HDL 45 > OR = 40 mg/dL [facility] [employer] [facility] TRIGLYCERIDE 84 <150 mg/dL [facility] [employer] [facility] LDL CALCULATED 71 <130 mg/dL (calc) [facility] Comment: Desirable range <100 mg/dL for patients with CHD or diabetes and <70 mg/dL for diabetic patients with known heart disease. CHOL/HDL RATIO 3.0 < OR = 5.0 (calc) [facility] TOTAL NON-HDL CHOL(LDL+VLDL) 88 mg/dL (calc) [facility] [employer] [facility] Comment: Target for non-HDL cholesterol is 30 mg/dL higher than LDL cholesterol target. 11/10/2014 7:13 AM CDT Ciro Fernandez DO CHEMISTRY ORDERABLES Performing Organization Address [facility] Co de Phone Number [employer] [facility] [address] [place] [address] * PSA (11/10/2014 7:13 AM CDT) PSA 0.3 < OR = 4.0 ng/mL [facility] [employer] [facility] Comment: This test was performed using the Siemens chemiluminescent method. Values obtained from different assay methods cannot be used interchangeably. PSA levels, regardless of value, should not be interpreted as absolute evidence of the presence or absence of disease. REPORT COMMENT: FASTING:YES Test Performed at: [employer] [facility] [address] [facility] [place] ??[phone] MINO ZAMAN DO,MPH 11/10/2014 7:13 AM CDT Ciro Fernandez DO CHEMISTRY ORDERABLES [employer] [facility] [address] [place] [address] documented in this encounter Visit Diagnoses Not on filedocumented in this encounter
--- OUTSIDE RECORDS SUMMARY | 2024-08-19 06:45 | XMS_ITS | Encounter Summary ---
Author Organization [facility] Address [address] [place] [address] Care Team Providers Care Land Title Examiner Name Role Phone Unavailable Primary Care Provider Unavailabl e Reason for Visit * Reason Onset Date Comments Cough 12/28/2013 Encounter Details Date Type Department Care Team (Late st Contact Info) Description 12/28/[address] [facility] Medicine - [facility] [facility] [address] [place] [address] Ciro Fernandez, DO [address] [facility] [address] [place] [address] Cough Social History Tobacco Use [...] Telephone Encounter - Cristela Herman RN - 12/28/2013 2:22 PM CDT Pt notified, instructed on meds, Singulair rx sent to pharmacy. * Telephone Encounter - Kay Jesus CMA - 12/28/2013 12:[address] Fernandez states to send out Singulair to take nightly and Mucinex DM during the day for 2 weeks. Let us know if symptoms are not improved after that 2 weeks. * Telephone Encounter - Jennifer Burnett - 12/28/2013 9:29 AM CDT PT FINISHED THE ANITBX THAT HE WAS GIVEN LAST WEEK, BUT IS STILL HAVING HEAD AND CHEST CONGESTION, DRAINAGE, COUGHING, NO FEVER NOTED, OTC- COUGH DROPS, ZYRTEC D documented in this encounter Plan of Treatment Not on file documented as of this encounter Visit Diagnoses Not on filedocumented in this encounter
--- OUTSIDE RECORDS SUMMARY | 2024-08-19 06:45 | XMS_ITS | Encounter Summary ---
Author Organization [facility] Address [address] [place] [address] Care Team Providers Care Pile Driving Technician Name Role Phone Unavailable Primary Care Provider Unavailabl e Reason for Visit * Reason Comments Medication Refill Encounter Details Date Type Department Care Team (Late st Contact Info) Description 2014 Refill [facility] Medicine - [facility] [address] [facility] [address] [place] [address] Ciro Fernandez, DO [address] [facility] [address] [place] [address] Social History Tobacco Use Types [...] Procedure Name Priority Date/Time Associated Diagnosis Comments PROTEIN , RANDOM URINE Routine 7:26 AM CDT LIPID PANEL Routine 04/07/2014 7:26 AM CDT COMPREHENSIVE METABOLIC PANEL Routine 04/07/2014 7:26 AM CDT documented in this encounter Results * PROTEIN , RANDOM URINE (04/07/2014 7:26 AM CDT) Creatinine, Urine 179 20 - 370 mg/dL [facility] [employer] [facility] PROTEIN TOTAL, URINE 56 22 - 128 mg/g creat [facility] [employer] [facility] PROTEIN TOTAL, URINE 10 5 - 25 mg/dL [facility] [employer] [facility] Comment: REPORT COMMENT: FASTING Test Performed at: [address] [place] [address] [place], [place] ??[phone] MINO ZAMAN DO,MPH 04/07/2014 7:26 AM CDT Ciro Fernandez DO URINE ORDERABLES INTERFACE SYSTEM Refer to clinic/hospital department [address] [facility] [address] [place] [address] * COMPREHENSIVE METABOLIC PANEL (04/07/2014 7:26 AM CDT) GLUCOSE 97 65 - 99 mg/dL [facility] Comment:Fasting reference in terval BUN 16 7 - 25 mg/dL [facility] [employer] [facility] CREATININE 0.91 0.70 - 1.25 mg/dL [facility] Comment: For patients >49 years of age, the reference limit for Creatinine is approximately 13% higher for people identified as -[place]an. GFR 90 > OR = 60 mL/min/1 .73m2 [facility] GFR, 104 > OR = 60 mL/min/1 .73m2 [facility] [employer] [facility] BUN/CREAT RATIO NOT APPLICABLE 6 - 22 (calc) [facility] SODIUM 141 135 - 146 mmol/L [facility] [employer] [facility] POTASSIUM 4.4 3.5 - 5.3 mmol/L [facility] [employer] [facility] CHLORIDE 100 98 - 110 mmol/L [facility] DIAGNOSTICS [facility] CO2 28 19 - 30 mmol/L [facility] DIAGNOSTICS . [facility] CALCIUM 9.4 8.6 - 10.3 mg/dL [facility] DIAGNOSTICS [facility] TOTAL PROTEIN 6.8 6.1 - 8.1 g/dL [facility] [employer] [facility] ALBUMIN 4.2 3.6 - 5.1 g/dL [facility]AGNOST[facility] GLOBULIN 2.6 1.9 - 3.7 g/dL (calc) [facility] ALBUMIN/GLOBULIN RATIO 1.6 1.0 - 2.5 (calc) [address] [facility] BILIRUBIN TOTAL 0.7 0.2 - 1.2 mg/dL [address] [facility] ALKALINE PHOSPHATASE 60 40 - 115 U/L [facility] AST 22 10 - 35 U/L [address] [facility] ALT 30 9 - 46 U/L [facility] [employer] [facility] Comment: REPORT COMMENT: FASTING Test Performed at: [address] [facility] [id number] [place] [address] ??[phone] MINO ZAMAN DO,MPH 04/07/2014 7:26 AM CDT Ciro Fernandez DO CHEMISTRY ORDERABLES Performing Organization Address [facility] Phone Number INTERFACE SYSTEM Refer to clinic/hospital department [facility] [address] [place] [address] * (ABNORMAL) LIPID PANEL (04/07/2014 7:26 AM CDT) CHOLESTEROL 143 125 - 200 mg/dL [facility] [employer] [facility] Comment: Test Performed at: [employer] [address] [place] [address] ??[phone] MINO ZAMAN DO,MPH HDL 38(L) > OR = 40 mg/dL [facility] [employer] [facility] TRIGLYCERIDE 115 <150 mg/dL [facility] [employer] [facility] LDL CALCULATED 82 <130 mg/dL (calc) [facility] [employer] [facility] Comment: Desirable range <100 mg/dL for patients with CHD or diabetes and <70 mg/dL for diabetic patients with known heart disease. CHOL/HDL RATIO 3.8 < OR = 5.0 (calc) [facility] TOTAL NON-HDL CHOL(LDL+VLDL) 105 mg/dL (calc) [facility] [employer] [facility] Comment: Target for non-HDL cholesterol is 30 mg/dL higher than LDL cholesterol target. 04/07/2014 7:26 AM CDT Ciro Fernandez DO CHEMISTRY ORDERABLES Performing Organization Address [facility] de Phone Number INTERFACE SYSTEM Refer to clinic/hospital department [facility] [address] [place] [address] documented in this encounter Visit Diagnoses Not on filedocumented in this encounter
--- OUTSIDE RECORDS SUMMARY | 2024-08-19 06:45 | XMS_ITS | Encounter Summary ---
Author Organization [facility] Address [address] [place] [address] Care Team Providers Care Special Delivery Messenger Name Role Phone Unavailable Primary Care Provider Unavailabl e Reason for Visit * Reason Comments Medication Refill Encounter Details Date Type Department Care Team (Late st Contact Info) Description 10/01/2014 Refill [facility] Medicine - [facility] [address] [facility] [address] [place] [address] Ciro Fernandez, DO 107 [facility] [address] [place] [address] Social History Tobacco Use Types [...]
--- OUTSIDE RECORDS SUMMARY | 2024-08-19 06:45 | XMS_ITS | Encounter Summary ---
Author Organization [facility] Address [address] [place] [address] Care Team Providers Care Aircraft Steel Fabricator Name Role Phone Unavailable Primary Care Provider Unavailabl e Reason for Visit * Auth/Cert - Closed Specialty Diagnoses / Procedures Referred By Contac t Referred To Contact Gastroenterology Diagnoses unknown Procedures COLONOSCOPY [facility] [address] [place] [address] Referral ID Status Reason Start Date Expiration Date Visits Re quested Visits Authorized [id number] Closed 1 1 Encounter Details Date Type Department Care Team (Late st Contact Info) Description 01/12/2014 9:00 AM CDT - 01/12/2014 9:40 AM CDT Surgery [facility] [address] [place] [address] Gatito Magallanes DO [address] [facility] [address] [place] [address] COLONOSCOPY Surgery Details Date/Time Status Location OR Service Patient Class Case Class Case Type Trauma Case? 01/12/2014 9:00 AM Posted [facility] GI 01 Gastroenterology Outpatient No Panel 1 Procedure LRB Anes Op Region Wound Class Comments COLONOSCOPY N/A General Anus Clean Contaminated -II Surgeon Surgeon Role Service Panel Gatito Magallanes DO Primary Gastroenterology 1 documented in this [...] Sign Reading Time Taken Comments Blood Pressure 140/88 01/12/2014 8:15 AM CDT Pulse 69 01/12/2014 8:15 AM CDT Temperature 36.1 ??C (97 ??F) 01/12/2014 8:15 AM CDT Respiratory Rate 16 01/12/2014 8:15 AM CDT Oxygen Saturation 98% 01/12/2014 8:15 AM CDT Inhaled Oxygen Concentration - - Weight 91.1 kg (200 lb 12.8 oz) 01/12/2014 8:07 AM CDT Height 180.3 cm (5' 11 ) 01/12/2014 8:07 AM CDT Body Mass Index 28.01 01/12/2014 8:07 AM CDT documented in this encounter Discharge Instructions * Discharge Instructions* Lizabeth Paige RN - 01/12/2014 10:26 AM CDT If you should experience: Severe abdominal pain, [...] call the physician who prescribed the medication. I have received a copy of the Discharge instructions provided with the After Visit Summary, and understand the plan of care. Patient or Responsible Democrat Signature Date/Time RN Signature Date/Time documented in this encounter Medications at Time [...] 1 12/25/2013 05/09/2014 fluticasone (FLONASE) 50 mcg/spray Curtis, SuspensionIndications:A llergic rhinitis Administer 2 Sprays in [...] 12/30/2011 08/20/2014 documented as of this encounter H&P Notes * Gatito Magallanes, - 01/12/2014 8:14 AM CDT PRE PROCEDURE EVALUATION DATE: 01/12/2014 HPI: This is a 63 y.o. male patient scheduled for Colonoscopy for screening for colon cancer. Patient Active Problem List Diagnosis Date Noted ??? AK (actinic keratosis) 05/26/2010 ??? Allergic Rhinitis 11/11/2009 ??? Osteoarthritis 01/02/2009 ??? Esophageal Reflux ??? Essential Hypertension, Benign ??? Pure Hypercholesterolemia Past Medical History Diagnosis Date ??? Community acquired pneumonia ??? Essential hypertension ??? Contact dermatitis and other eczema, due to unspecified cause ??? [place] (hard of hearing) Past Surgical History Procedure Laterality Date ??? 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 Hx heart catheterization 1992 ??? Hx vasectomy 1981 Prescriptions prior to admission Medication Sig Dispense [...] Tab 1 ??? fluticasone (FLONASE) 50 mcg/spray Curtis, Suspension Administer 2 Sprays in each nostril [...] for Other (See Comment). 6 Tab 3 Allergies Allergen Reactions ??? Bactrim (Sulfamethoxazole-Trimethoprim) Rash ??? Medrol (Methylprednisolone) Rash and Other (See Comments) redness History Substance Use Topics ??? Smoking status: [...] Mesothelioma Neg Hx ??? Tuberculosis Neg Hx Head: atraumatic, Normocephalic, without obvious abnormality Lungs: clear to auscultation bilaterally, normal respiratory effort Airway: No apparent abnormality Heart: normal rate and regular rhythm Abdomen: Soft, non-tender. Bowel sounds normal. No masses, no organomegaly. Neurologic: Grossly normal ASA Classification: ASA 2 [...] with the above mentioned procedure(s) as scheduled. Gatito Magallanes DO documented in this encounter Procedure Notes * Gatito Magallanes DO - 01/12/2014 10:19 AM CDTAssociated Order(s): GI REPORT [facility] Endoscopy Patient Name: Brendon Aldana Procedure Date No Time: 01/12/2014 Date of : 1950 Admit Type: Outpatient Attending MD: Gatito Magallanes MD Procedure: Colonoscopy Indications: Surveillance: Personal history of adenomatous polyps on last colonoscopy 5 years ago, Last colonoscopy: September 2008 Providers: Gatito Magallanes MD Referring MD: Ciro Fernandez DO Medicines: Monitored Anesthesia Care Complications: No immediate complications. Procedure: Informed consent was obtained for the procedure, including moderate sedation after risks were discussed. Based on the pre-procedure assessment, including review of the patient?s medical history, medications, allergies, and review of [...] Loss: Estimated blood loss was minimal. Findings: Perianal examination was normal. A sessile polyp was found in the transverse colon. The polyp was 7 mm in size. The polyp was removed with a cold biopsy forceps. Resection and retrieval were complete. Estimated blood loss was minimal. Diverticula were found in the sigmoid colon. The terminal ileum appeared normal. No additional abnormalities were found on retroflexion. Impression: - One 7 mm polyp in the transverse colon. Resected and retrieved. - Diverticulosis in the sigmoid colon. - The examined portion of the ileum was normal. Recommendation: - Await pathology results. - Repeat colonoscopy in 5 years for surveillance based on pathology results. Gatito Magallanes MD 01/12/2014 10:19 AM This report has been signed electronically. Number of Addenda: 0 [address] ; [place] [address] documented in this encounter OR Notes * Anesthesia Handoff - Kaye Paul CRNA - 01/12/2014 10:22 AM CDT Post-Anesthetic transfer of care report elements to appropriate post-anesthesia recovery environment completed in accordance with procedure. Vital Signs: BP: 116/63 mmHg (01/12/2014 10:19 AM) Pulse: 69 (01/12/2014 8:15 AM) Temp: 36.9 ??C (01/12/2014 10:19 AM) Resp: 20 (01/12/2014 10:19 AM) SpO2: 100 % (01/12/2014 10:19 AM) 10:22 AM Kaye Paul CRNA documented in this encounter Plan of Treatment Not on file documented as of this encounter Procedures Procedure Name Priority Date/Time Associated Diagnosis Comments PATHOLOGY Routine 01/12/2014 12:21 PM CDT GI REPORT 01/12/2014 10:20 AM CDT COLONOSCOPY 01/12/2014 9:41 AM CDT documented in this encounter Results * PATHOLOGY (01/12/2014 12:21 PM CDT) SURGICAL PATHOLOGY ?[facility] ?[address] [facility] [address] ? [place], [place] ??[address] ? Patient: ??BRENDON ALDANA ? : ??1950 ? Procedure Date: ??01/12/2014 ? Accession Date: ??01/12/2014 ? Case No: ??[id number] ? Ordering Dr: ??GATITO MAGALLANES ? Case type SW is performed by [address], ? [place], [place] ??[address]; all other case types are performed by [facility] ? [facility], [address] [place], [place] ??[address] ?SURGICAL PATHOLOGY & NON-GYNECOLOGIC CYTOPATHOLOGY REPORT ? DIAGNOSIS ? LARGE INTESTINE, TRANSVERSE, COLONOSCOPIC BIOPSY: ? - TUBULAR ADENOMA (TWO PIECES). ? Specimen Description: ? Transverse colon polyp. ? Operative Procedure: ? Screening colonoscopy. ? Patient Information/History/Di agnosis: ? Colon polyp(s). Adenomatous vs. hyperplastic vs. other. ? Gross: ? Received in a single container labeled Brendon Aldana, transverse colon ? polyp is one pate tissue fragment measuring 0.3 cm in greatest dimension. ? The specimen is completely submitted labeled A1. ? ANNABELG/ASHU 01.12.2014 05:05 pm ? Microscopic: ? The sections are labeled [id number], Brendon Aldana. ? The biopsy from the transverse colon displays two pieces of tubular ? adenoma. ? Special stain and/or immunohistochemical results are interpreted with ? controls that demonstrate appropriate staining reactions. Note on use of ? immunocytochemistry reagents: This test was developed and its performance ? characteristic determined by [facility], Department of ? Laboratory Medicine. ??It has not been cleared or approved by the U.S. Food ? and Drug Administration. The FDA has determined that such clearance or ? approval is not necessary. The test is used for clinical purpose. It should ? not be regarded as investigational or for research. ??This laboratory is ? certified to perform high complexity testing. ? JEROD/ASHU 01.15.2014 12:41 pm ? Staging Form: ? No ? ELECTRONIC SIGNATURE FOR EDVIN FLYNN M.D.- 01/15/14 02:39 pm [facility] 01/12/2014 12:2 1 PM CDT Gatito Magallanes DO PATHOLOGY/CYTOLOGY ORDERABLES [facility] CLIA# [id number] [address] [place] [address] * GI REPORT (01/12/2014 10:20 AM CDT) Narrative Transcriptions Gatito Magallanes DO - 01/12/2014 10:19 AM CDT [facility] Endoscopy Patient Name: Brendon Aldana Procedure Date No Time: 01/12/2014 Date of : 1950 Admit Type: Outpatient Attending MD: Gatito Magallanes MD Procedure: Colonoscopy Indications: Surveillance: Personal history of adenomatous polyps on last colonoscopy 5 years ago, Last colonoscopy: September 2008 Providers: Gatito Magallanes MD Referring MD: Ciro Fernandez DO Medicines: Monitored Anesthesia Care Complications: No immediate complications. Procedure: Informed consent was obtained for the procedure, including moderate sedation after risks were discussed. Based on the pre-procedure assessment, including review of the patient?s medical history, medications, allergies, and review of [...] Loss: Estimated blood loss was minimal. Findings: Perianal examination was normal. A sessile polyp was found in the transverse colon. The polyp was 7 mm in size. The polyp was removed with a cold biopsy forceps. Resection and retrieval were complete. Estimated blood loss was minimal. Diverticula were found in the sigmoid colon. The terminal ileum appeared normal. No additional abnormalities were found on retroflexion. Impression: - One 7 mm polyp in the transverse colon. Resected and retrieved. - Diverticulosis in the sigmoid colon. - The examined portion of the ileum was normal. Recommendation: - Await pathology results. - Repeat colonoscopy in 5 years for surveillance based on pathology results. Gatito Magallanes MD 01/12/2014 10:19 AM This report has been signed electronically. Number of Addenda: [address]; [place] [address] Gatito Magallanes DO GI PROCEDURE ORDERA BLES documented in this encounter Visit Diagnoses Not on filedocumented in this encounter Administered Medications Inactive Administered Medications - up to 3 most recent administrations Medication Order MAR Action Action Date Dose Rate Site lactated ringers solution IV, at 125 mL/hr, PRE-PROCEDURE CONTINUOUS, Starting on Wed01/12/14 at 0815, Until Wed01/12/14 at 1239, Routine, Pre-Procedure New Bag 01/12/2014 8:19 AM CDT 125 mL/hr documented in this encounter Active and Recently Administered Medications Times are shown in CDT. Continuous Medication Order 01/10/2014 01/11/2014 01/12/2014 lactated ringers solution (CANCELED) IV, at 125 mL/hr, PRE-PROCEDURE CONTINUOUS, Starting on Wed01/12/14 at 0815, Until Wed01/12/14 at 1239, Routine, Pre-Procedure 0819 (New Bag - Prov ider: Tiara Moon RN)1015 (Fluid Volume - Provider: Kaye Paul CRNA)1028 (Stopped - Provider: Lizabeth Paige RN) documented in this encounter
--- OUTSIDE RECORDS SUMMARY | 2024-08-19 06:45 | XMS_ITS | Encounter Summary ---
Author Organization [facility] Address [address] [place] [address] Care Team Providers Care Field Tech Name Role Phone Unavailable Primary Care Provider Unavailabl e Encounter Details Date Type Department Care Team (Late st Contact Info) Description 01/10/2014 Orders Only [facility] Medicine - [facility] [address] [facility] [address] [place] [address] Ciro Fernandez, DO [address] [facility] [address] [place] [address] Social History Tobacco Use Types [...]
--- OUTSIDE RECORDS SUMMARY | 2024-08-19 06:45 | XMS_ITS | Encounter Summary ---
Author Organization [facility] Address [address] [place] [address] Care Team Providers Care Enrobing Machine Corder Name Role Phone Unavailable Primary Care Provider Unavailabl e Reason for Visit * Reason Comments Cough congestion x 1 week Encounter Details Date Type Department Care Team (Late st Contact Info) Description 11/15/2014 1:00 PM CDT Office Visit [facility] Medicine - [facility] [address] [facility] [address] [place] [address] Ciro Fernandez, DO [address] [facility] [address] [place] [address] Sinusitis, acute (Primary Dx) Social [...] Reading Time Taken Comments Blood Pressure 124/60 11/15/2014 12:49 PM CDT Pulse 68 11/15/2014 12:49 PM CDT Temperature 37.1 ??C (98.7 ??F) 11/15/2014 12:49 PM C DT Respiratory Rate - - Oxygen Saturation - - Inhaled Oxygen Concentration - - Weight 96.6 kg (213 lb) 11/15/2014 12:49 PM CDT Height 180.3 cm (5' 11 ) 11/15/2014 12:49 PM CDT Body Mass Index 29.71 11/15/2014 12:49 PM CDT documented in this encounter Progress Notes * Shorty Fernandezaileen Jaime, DO - 11/15/2014 1:13 PM CDT Subjective: Brendon Aldana 64 y.o. male presents with a 1 week history of cough, sore throat, postnasal discharge, MORALES. Tried over the counter antihistamines OTC cough/cold product of patient's choice PRN and fluids andrest with no improvement. Patient denies chest pain [...] well as Allergies and Medications. Objective: BP 124/60 Pulse 68 Temp(Src) 98.7 ??F (37.1 ??C) (Temporal) Ht 5' 11 (1.803 m) [...] examination. A/P: Brendon was seen today for cough. Diagnoses and associated orders for this visit: Sinusitis, acute - cefdinir (OMNICEF) 300 mg capsule; Take 1 Cap (300 mg) by mouth every 12 hours for 10 days. - montelukast (SINGULAIR) 10 mg tablet; Take 1 Tab (10 mg) by mouth daily at bedtime. OTC Meds as discussed Increase Fluids and [...]
--- OUTSIDE RECORDS SUMMARY | 2024-08-19 06:45 | XMS_ITS | Encounter Summary ---
Author Organization [facility] Address [address] [place] [address] Care Team Providers Care Licensed Veterinary Technician Name Role Phone Unavailable Primary Care Provider Unavailabl e Reason for Visit * Reason Onset Date Comments Medication Refill 10/26/2014 Encounter Details Date Type Department Care Team (Late st Contact Info) Description 10/26/2014 Refill [facility] Medicine - [facility] [address] [facility] [address] [place] [address] Ciro Fernandez, DO [address] [facility] [address] [address] [place] [address] Social History Tobacco Use Types [...]
--- OUTSIDE RECORDS SUMMARY | 2024-08-19 06:45 | XMS_ITS | Encounter Summary ---
Author Organization [facility] Address [address] [place] [address] Care Team Providers Care Oral Surgery Physician Name Role Phone Unavailable Primary Care Provider Unavailabl e Reason for Visit * Reason Comments Physical follow up labs Encounter Details Date Type Department Care Team (Late st Contact Info) Description 12/14/2014 2:00 PM CDT Office Visit [facility] Medicine - [facility] [address] [facility] [address] [place] [address] Ciro Fernandez, DO [address] [facility] [address] [place] [address] Well adult exam (Primary Dx); Screen for colon cancer; Essential hypertension, benign; Pure hypercholesterolemia; IFG (impaired fasting glucose); Fatigue; Chronic cough Social History Tobacco Use Types Packs/Day Years [...] Reading Time Taken Comments Blood Pressure 116/70 12/14/2014 1:50 PM CDT Pulse 80 12/14/2014 1:50 PM CDT Temperature 36.9 ??C (98.5 ??F) 12/14/2014 1:50 PM CD T Respiratory Rate - - Oxygen Saturation - - Inhaled Oxygen Concentration - - Weight 95.3 kg (210 lb) 12/14/2014 1:50 PM CDT Height 180.3 cm (5' 11 ) 12/14/2014 1:50 PM CDT Body Mass Index 29.29 12/14/2014 1:50 PM CDT documented in this encounter Progress Notes * Ciro Fernandez, DO - 12/14/2014 3:53 PM CDT Subjective: Brendon Aldana is a 64 y.o. male. Pt is here for a well adult visit. Preventative health discussed and documented HPI: Mr. Aldana also complains of the following (by systems): He does have a continued cough. States only after his infection and it lasts for several weeks to months. States always with talking a lot, but otherwise none at night. No coughing in the middle of the night. Previously with the same symptoms, went to ENT and was placed on different medicines. Fatigue. Symptoms began several months ago. Symptoms of his fatigue have been general malaise, waking up prior to alarm, getting only 5 hours of sleep usually. Patient describes the following psychologic symptoms: stress. Patient denies fever, significant change in weight, symptoms of true arthritis, true exercise intolerance, unusual rashes, cold intolerance, constipation and change in hair texture., GI blood loss, excessive menstrual bleeding, witnessed or suspected sleep apnea. The course has been intermittent Severity has been symptoms bothersome, but easily able to carry out all usual scheduled events. Negative exercise Discussed multiple causes such as medications, medical issues, depression, stress, etc. Hypertension: Current medication(s) reviewed. Taking and tolerating medications well. 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 Hypertensive diet compliance: no Low Sodium Exercise compliance: no No change in vision. No sores on feet. No paresthesias of LE. Denies chest pain, palpitations, pedal edema, shortness of breath. No polyuria or polydipsia. No Cephalgia. Reviewed overall treatment plan, including diet and exercise, and prevention strategies. Last labs reviewed with patient. Hypercholesterolemia: Current medication(s) reviewed. Taking and tolerating medications well. Cholesterol diet compliance: no Exercise compliance: no No change in vision. Denies chest pain, palpitations, orthopnea, pnd, pedal edema, shortness of breath. No polyuria or polydipsia. No muscular cramps. Reviewed overall treatment plan, [...] prevention strategies. Last labs reviewed with patient. Review of Systems: ROS: Psychological ROS: negative for change in mood or behavior Ophthalmic ROS: negative for visual changes. ENT ROS: negative for nasal bleeding or dysphagia Hematological and Lymphatic ROS: negative for swollen glands or abnormal bleeding Endocrine ROS: negative for polyuria/polydipsia or unexpected new changes in weight Respiratory ROS: negative for shortness of breath, or wheezing Cardiovascular ROS: negative for chest pain, heart palpitations or dyspnea on exertion Gastrointestinal ROS: negative for reflux, abdominal pain, change in bowel habits, or black or bloody stools Genito-Urinary ROS: negative for trouble voiding, or hematuria Musculoskeletal ROS: negative for neck pain or joint pain or swelling Neurological ROS: negative for confusion, numbness/tingling or weakness Dermatological ROS: negative for skin rashes or unusual skin lesions Except for as listed above. Exam/Objective: BP 116/70 Pulse 80 Temp(Src) 98.5 ??F (36.9 ??C) (Temporal) Ht 5' 11 (1.803 m) Wt 210 lb (95.255 kg) BMI 29.30 kg/m2 Appearance: alert, well appearing, and in no distress. Skin: I note only benign skin findings. No unusual rashes or suspicious skin lesions noted. Nails appear normal. No unusual rashes or suspicious skin lesions [...] normal. Extremities: Peripheral pulses normal, no pedal edema, good pulses Neuro: Normal deep tendon reflexes. Psych: Appropriate Male Exam: Rectal normal without masses, negative guaiac. Prostate slightly enlarged, boggy and nontender, smooth and symmetric without nodules, masses. Assessment and Plan: Brendon was seen today for physical. Diagnoses and associated orders for this visit: Well adult exam - LIPID PANEL; Future - COMPREHENSIVE METABOLIC PANEL; Future - POC OCCULT BLOOD UP TO 3 CARDS Screen for colon cancer - POC OCCULT BLOOD UP TO 3 CARDS Essential hypertension, benign - LIPID PANEL; Future - COMPREHENSIVE METABOLIC PANEL; Future Continue with medicines. Pure hypercholesterolemia - LIPID PANEL; Future - COMPREHENSIVE METABOLIC PANEL; Future Continue with medicine. IFG (impaired fasting glucose) - COMPREHENSIVE METABOLIC PANEL; Future Continue with good nutrition including low carbohydrate intake and Increase your aerobic exercise to 30 minutes continuous 5 times per week. Fatigue - TSH; Future - CBC; Future - COMPREHENSIVE METABOLIC PANEL; Future - TESTOSTERONE FREE AND TOTAL; Future - VITAMIN D 25 HYDROXY; Future - VITAMIN B12 LEVEL; Future Consider sleep medicine. Chronic cough Back to ENT - phone number and name given. Healthy Male Appropriate patient instructions provided. Follow-up as I have indicated. Medications and options explained to include common side effects. Understanding of medications, course, diagnosis, and expectations were expressed by patient. Preventative Health discussed in full. Discussed Risks, Benefits and Alternatives of the current treatment regimen. documented in this encounter Miscellaneous Notes * Patient Instructions - Kay Jesus CMA - 12/14/2014 2:24 PM CDT Follow up with Dr Long for your chronic cough and laryngitis. Continue with good nutrition including low carbohydrate intake and Increase your aerobic exercise to 30 minutes continuous 5 times per week. Try and avoid or decrease bread, rice, cereal, pasta, potatoes. Eat Kofi bars. Get better sleep. documented in this encounter Plan of Treatment Not on file documented as of this encounter Procedures Procedure Name Priority Date/Time Associated Diagnosis Comments TESTOSTERONE FREE AND TOTAL Routine 12/15/2014 7:05 AM CDT CBC WITH DIFFERENTIAL Routine 12/15/2014 7:05 AM CDT VITAMIN D 25 HYDROXY Routine 12/15/2014 7:05 AM CDT TSH Routine 12/15/2014 7:05 AM CDT VITAMIN B12 LEVEL Routine 12/15/2014 7:0 5 AM CDT COMPREHENSIVE METABOLIC PANEL Routine 12/15/2014 7:05 AM CDT POC OCCULT BLOOD UP TO 3 CARDS Routine 12/14/2014 2:00 PM CDT Well adult exam Screen for colon cancer documented in this encounter Results * TESTOSTERONE FREE AND TOTAL (12/15/2014 7:05 AM CDT) TESTOSTERONE 476 250 - 1100 ng/dL [facility] Comment: ??Males: Men with clinically significant hypogonadal symptoms and testosterone values repeatedly in the range of the 200-300 ng/dL or less, may benefit from testosterone treatment after adequate risk and benefits counseling. TESTOSTERONE FREE 55.2 35.0 - 155.0 pg/mL [facility] Comment: Test Performed at: [facility] [address] [place], [place] ??[address] ROE FLORES MD,FCAP 12/15/2014 7:05 AM CDT Ciro Fernandez DO CHEMISTRY ORDERABLES [facility] [address] [place] [address] * (ABNORMAL) VITAMIN D 25 HYDROXY (12/15/2014 7:05 AM CDT) VITAMIN D, 25 OH, TOTAL 19(L) 30 - 100 ng/mL [facility] Comment: Vitamin D Status ? 25-OH Vitamin D: Deficiency: ?<20 ng/mL Insufficiency: ? 20 - 29 ng/mL Optimal: ? > or = 30 ng/mL For 25-OH Vitamin D testing on patients on D2-supplementation and patients for whom quantitation of D2 and D3 fractions is required, the QuestAssureD(TM) 25-OH VIT D, (D2,D3), LC/MS/MS is recommended: order code 89168 (patients >2yrs). For more information on this test, go to: http://education.[employer]/faq/FVQ920 Effective December 10, the test order code 44981, used prior to December 10, for LC/MS/MS, will be transitioned to a carefully-selected immunoassay methodology. ??The new immunoassay has passed CDC standardization certification and provides high quality quantitative results that are tied back to standards from the NIST. ?? For those patients for whom LC/MS/MS testing is appropriate, please utilize test code 87545. When LC/MS/MS is the chosen assay, utilize test code 59630 for patients > or = 3 years of age, patients who are on D2 supplementation, and patients for whom a separate D2 and D3 measurement is required. For patients <3 years of age, test code 66256 should be used. Important Note Regarding Custom Panels With 25-Hydroxyvitamin D: If you currently order vitamin D testing as part of a custom panel, the LC/MS/MS vitamin D test will be maintained in your panel after December 10, 2014. If you would like to replace the test in your panel with the new immunoassay, or have any questions regarding the transition of the 83915 test code, please contact your local [employer] travel sales consultant. Test Performed at: [facility] [address] [place], [place] ??[phone] MINO ZAMAN DO,MPH 12/15/2014 7:05 AM CDT Ciro Fernandez DO CHEMISTRY ORDERABLES [facility] [address] [place] [address] * VITAMIN B12 LEVEL (12/15/2014 7:05 AM CDT) VITAMIN B12 467 200 - 1100 pg/mL [facility] Comment: Test Performed at: [facility] [id number] [place] [address] ??[phone] MINO ZAMAN DO,MPH 12/15/2014 7:05 AM CDT Ciro Fernandez DO CHEMISTRY ORDERABLES Performing Organization Address [facility] Co de Phone Number [facility] [address] [place] [address] * TSH (12/15/2014 7:05 AM CDT) Pathologist [facility] TSH 1.67 0.40 - 4.50 mIU/L [facility] Comment: Test Performed at: [facility] [address] [place], [place] ??[address] MINO ZAMAN DO,MPH 12/15/2014 7:05 AM CDT Ciro Fernandez DO CHEMISTRY ORDERABLES Performing Organization Address [facility] Co de Phone Number [facility] [address] [place] [address] * (ABNORMAL) COMPREHENSIVE METABOLIC PANEL (12/15/2014 7:05 AM CDT) [facility] GLUCOSE 96 65 - 99 mg/dL [facility] Comment:Fasting reference in terval BUN 13 7 - 25 mg/dL [facility] . [facility] CREATININE 0.86 0.70 - 1.25 mg/dL [facility] Comment: For patients >49 years of age, the reference limit for Creatinine is approximately 13% higher for people identified as -[place]. GFR 93 > OR = 60 mL/min/1 .73m2 [facility] . [facility] GFR, 108 > OR = 60 mL/min/1 .73m2 [facility] . [facility] BUN/CREAT RATIO NOT APPLICABLE 6 - 22 (calc) [facility] SODIUM 140 135 - 146 mmol/L [facility] . [facility] POTASSIUM 4.5 3.5 - 5.3 mmol/L [facility] . [place] CHLORIDE 102 98 - 110 mmol/L [facility] CO2 27 19 - 30 mmol/L [facility] . [place] CALCIUM 9.4 8.6 - 10.3 mg/dL [facility] . [place] TOTAL PROTEIN 7.4 6.1 - 8.1 g/dL [facility] . [place] ALBUMIN 4.3 3.6 - 5.1 g/dL [facility] [place] GLOBULIN 3.1 1.9 - 3.7 g/dL (calc) [facility] . [place] ALBUMIN/GLOBULIN RATIO 1.4 1.0 - 2.5 (calc) [facility] [place] BILIRUBIN TOTAL 0.6 0.2 - 1.2 mg/dL [facility] [place] ALKALINE PHOSPHATASE 75 40 - 115 U/L [facility] [place] AST 32 10 - 35 U/L [facility] [place] ALT 47(H) 9 - 46 U/L [facility] Comment: Test Performed at: [facility] [address] [place], [place] ??[address] MINO ZAMAN DO,MPH 12/15/2014 7:05 AM CDT Ciro Fernandez DO CHEMISTRY ORDERABLES [facility] [address] [place] [address] * CBC WITH DIFFERENTIAL (12/15/2014 7:05 AM CDT) WBC 6.3 3.8 - 10.8 Thousand/u L [facility] RBC 5.03 4.20 - 5.80 Million/uL [facility] HEMOGLOBIN 15.5 13.2 - 17.1 g/dL [facility] HEMATOCRIT 46.8 38.5 - 50.0 % [facility] [place] MCV 93.0 80.0 - 100.0 fL [facility] [place] MCH 30.7 27.0 - 33.0 pg [facility] [place] MCHC 33.0 32.0 - 36.0 g/dL [facility] RDW 13.4 11.0 - 15.0 % [facility] PLATELETS 221 140 - 400 Thousand/u L [facility] NEUTROPHIL ABSOLUTE 3,163 1,500 - 7,800 cells/uL [facility] LYMPHOCYTE ABSOLUTE 2,192 850 - 3,900 cells/uL [facility] MONOCYTE ABSOLUTE 510 200 - 950 cells/uL [facility] EOSINOPHIL ABSOLUTE 397 15 - 500 cells/uL [facility] BASOPHILS ABSOLUTE 38 0 - 200 cells/uL [facility] NEUTROPHIL 50.2 % [facility] LYMPHOCYTES 34.8 % [facility] MONOCYTE 8.1 % [facility] EOSINOPHILS 6.3 % [facility] BASOPHILS 0.6 % [facility] Comment: Test Performed at: [facility] [address] [place], [place] ??[phone] MION ZAMAN DO,MPH 12/15/2014 7:05 AM CDT Ciro Fernandez DO HEMATOLOGY ORDERABLE S [facility] [address] [place] [address] * POC OCCULT BLOOD UP TO 3 CARDS (12/14/2014 2:00 PM CDT) OCCULT BLOOD #1 Negative Negative [facility] OCCULT BLOOD #2 Negative [facility] OCCULT BLOOD #3 Negative [facility] Stool specimen (specimen) 12/14/2014 2:00 PM CDT Ciro Fernandez DO POINT OF CARE TESTIN G [facility] documented in this encounter Visit Diagnoses Diagnosis Well adult exam- Primary Routine general medical examination at a health care facility Screen for colon cancer Special screening for malignant neoplasms, colon Essential hypertension, benign Pure hypercholesterolemia IFG (impaired fasting glucose) Impaired fasting glucose Fatigue Other malaise and fatigue Chronic cough Cough documented in this encounter
--- OUTSIDE RECORDS SUMMARY | 2024-08-19 06:45 | XMS_ITS | Encounter Summary ---
Author Organization [facility] Address [address] [place] [address] Care Team Providers Care Carpet Tile Layer Name Role Phone Unavailable Primary Care Provider Unavailabl e Reason for Visit * Reason Onset Date Comments Cough 01/12/2014 Encounter Details Date Type Department Care Team (Late st Contact Info) Description 01/12/2014 Telephone [facility] Family Medicine - [facility] [address] [facility] [address] [place] [address] Ciro Fernandez, DO [address] [facility] [facility] [place] [address] Cough Social History Tobacco Use [...] encounter Miscellaneous Notes * Telephone Encounter - Delma Foster CMA - 01/12/2014 1:53 PM CDT I spoke with patient he would like to try if he notices rash, swelling will stop * Telephone Encounter - Delma Foster CMA - 01/12/2014 12:[address] Fernandez advised prednisone will send to pharmacy * Telephone Encounter - Jennifer Burnett - 01/12/2014 11:10 AM CDT Pt had his Colonoscopy today, and told him to call if he is still having the cough, and wouldgive him a steroid (was just here wed.) documented in this encounter Plan of Treatment Not on file documented as of this encounter Visit Diagnoses Not on filedocumented in this encounter
--- OUTSIDE RECORDS SUMMARY | 2024-08-19 06:45 | XMS_ITS | Encounter Summary ---
Author Organization [facility] Address [address] [place] [address] Care Team Providers Care Vice President Sales And Marketing Name Role Phone Unavailable Primary Care Provider Unavailabl e Encounter Details Date Type Department Care Team (Late st Contact Info) Description 10/20/2013 Orders Only [facility] [place] [address] [place] [address] Modesta Wise, DO [address] [place] [address] Social History Tobacco Use Types [...]
--- OUTSIDE RECORDS SUMMARY | 2024-08-19 06:45 | XMS_ITS | Encounter Summary ---
Author Organization [facility] Address [address] [place] [address] Care Team Providers Care Carpenter General Name Role Phone Unavailable Primary Care Provider Unavailabl e Reason for Visit * Reason Comments Medication Refill Encounter Details Date Type Department Care Team (Late st Contact Info) Description 06/06/2014 Refill [facility] [address] [facility] [address] [place] [address] Ciro Fernandez, DO [address] [facility] [address] [place] [address] Social History Tobacco Use Types [...] Telephone Encounter - Kay Jesus CMA - 06/07/2014 9:00 AM CDT Script faxed. documented in this encounter Plan of Treatment Not on file documented as of this encounter Visit Diagnoses Not on filedocumented in this encounter
--- OUTSIDE RECORDS SUMMARY | 2024-08-19 06:45 | XMS_ITS | Encounter Summary ---
Author Organization [facility] Address [address] [place] [address] Care Team Providers Care Cellular Biologist Name Role Phone Unavailable Primary Care Provider Unavailabl e Reason for Visit * Reason Onset Date Comments Insurance Issues 08/23/2014 PA for [employer] Encounter Details Date Type Department Care Team (Late st Contact Info) Description 08/23/2014 Telephone [facility] Family Medicine - [facility] [address] [facility] [address] [place] [address] Ciro Fernandez, DO 107 [facility] [address] [place] [address] Insurance Issues (MARTIN Schmitt) Social History Tobacco Use Types Packs/Day Years [...] Telephone Encounter - Cristela Herman RN - 08/23/2014 1:26 PM CST Per fax from [facility] - [phone], Cialis 20 mg daily prn #6 needs prior authorization, ID# [id number], call [phone]. I called and spoke with Norah at [employer] Dept, med APPROVED 08/23/14 thru 08/22/2017, . [facility] notified of approval. E MIXER documented in this encounter Plan of Treatment Not on file documented as of this encounter Visit Diagnoses Not on filedocumented in this encounter
--- OUTSIDE RECORDS SUMMARY | 2024-08-19 06:45 | XMS_ITS | Encounter Summary ---
Author Organization [facility] Address [address] [place] [address] Care Team Providers Care Rope Maker Name Role Phone Unavailable Primary Care Provider Unavailabl e Reason for Visit * Reason Onset Date Comments Medication Refill 10/11/2014 Encounter Details Date Type Department Care Team (Late st Contact Info) Description 10/11/2014 Refill [facility] Family Medicine - [facility] [address] [facility] [address] [place] [address] Ciro Fernandez DO [address] [facility] [address] [place] [address] Social History Tobacco Use Types [...] Notes * Telephone Encounter - Kay Jesus EMBOSSING PRESS OPERATOR APPRENTICE - 10/12/2014 8:06 AM CSTFrom: Brendon Aldana To: Ciro Fernandez DO Sent: 10/11/2014 4:53 PM ECONOMICS ANALYST Subject: Medication Renewal Request Original authorizing provider: DO Brendon Tom would like a refill of the following medications: losartan (COZAAR) 50 mg tablet [Ciro Fernandez DO] Preferred pharmacy: [email or web address] [place], [place] - [address] [place] [address] Comment: For [facility] reason [facility] says there are no refills left on this. So I guess I need a refill which must be written as a 90 day rx. Thank you. OMICS ANALYST documented in this encounter Plan of Treatment Not on file documented as of this encounter Visit Diagnoses Not on filedocumented in this encounter
--- OUTSIDE RECORDS SUMMARY | 2024-08-19 06:45 | XMS_ITS | Encounter Summary ---
Author Organization [facility] Address [address] [place] [address] Care Team Providers Care Optician Apprentice Dispensing Name Role Phone Unavailable Primary Care Provider Unavailabl e Reason for Visit * Reason Onset Date Comments Results 10/02/2013 Encounter Details Date Type Department Care Team (Late st Contact Info) Description 10/02/2013 Telephone [facility] Family Medicine - [facility] [address] [facility] [address] [place] [address] Ciro Fernandez, DO [address] [place] [address] Results Social History Tobacco [...] * Telephone Encounter - Jennifer Burnett - 10/02/2013 2:55 PM CST Pt informed/sb TRICAL ACCESSORIES II ASSEMBLER * Telephone Encounter - Jennifer Burnett - 10/02/2013 2:45 PM CST Message copied by JENNIFER BURNETT on WedOct 02, 2013 2:45 PM ------ Message from: SARAH FERNANDEZ Created: Damari Oct 01, 2013 11:38 AM Your laboratory studies have been received, please return to office for a follow up examination. ------ TRICAL ACCESSORIES II ASSEMBLER documented in this encounter Plan of Treatment Not on file documented as of this encounter Visit Diagnoses Not on filedocumented in this encounter
--- OUTSIDE RECORDS SUMMARY | 2024-08-19 06:45 | XMS_ITS | Encounter Summary ---
Author Organization [facility] Address [address] [place] [address] Care Team Providers Care Structures Technician Name Role Phone Unavailable Primary Care Provider Unavailabl e Reason for Visit * Reason Comments Cough drainage x 4wks alonzo doherty mucinex and singulair Encounter Details Date Type Department Care Team (Late st Contact Info) Description 01/10/2014 11:30 AM CDT Office Visit [facility] Medicine - [facility] [address] [facility] [address] [place] [address] Ciro Fernandez, DO [address] [facility] [address] [place] [address] Cough (Primary Dx); Allergic rhinitis; GERD (gastroesophageal reflux disease) Social History Tobacco Use Types Packs/Day Years [...] Sign Reading Time Taken Comments Blood Pressure 128/76 01/10/2014 11:15 AM CDT Pulse 76 01/10/2014 11:15 AM CDT Temperature 36.6 ??C (97.9 ??F) 01/10/2014 11:15 AM C DT Respiratory Rate - - Oxygen Saturation - - Inhaled Oxygen Concentration - - Weight 94.8 kg (209 lb) 01/10/2014 11:15 AM CDT Height 180.3 cm (5' 11 ) 01/10/2014 11:15 AM CDT Body Mass Index 29.15 01/10/2014 11:15 AM CDT documented in this encounter Progress Notes * Ciro Fernandez, DO - 01/10/2014 12:36 PM CDT Subjective: rBendon Aldana 63 y.o. male presents with a 3 week history of cough, postnasal discharge. He was on Doxycycline and states much better. States coughing only when he is talking. He lucio shave a colonoscopy tomorrow and he is wanting to make sure he doesn't have a problem with coughing. Tried over the counter antihistamines OTC cough/cold product of patient's choice PRN and fluids andrest with no improvement. He is doing well with singulair. Also with GERD symptoms. States 20mg Prilosec is working well. Patient denies chest pain or SOB. No [...] well as Allergies and Medications. Objective: BP 128/76 Pulse 76 Temp(Src) 97.9 ??F (36.6 ??C) (Temporal) Ht 5' 11 (1.803 m) Wt 209 lb (94.802 kg) BMI 29.16 kg/m2 Gen'l: NAD HEENT: Perrla, eomi. Sinuses tender to palpation over the bilateral maxillary sinuses. Throat erythematous without exudates. [place], swollen nasal turbinates. clear Nasal Discharge. Ears Normal. Neck: Supple. No lymphadenopathy. Lungs: Clear to auscultation bilaterally. CV: RRR. No murmur. Skin: No rash noted on examination. A/P: Brendon was seen today for cough. Diagnoses and associated orders for this visit: Cough - XR CHEST PA AND LATERAL (ROUTINE); Future - benzonatate (TESSALON) 200 mg capsule; Take 1 Cap by mouth 3 times daily as needed for Cough. Allergic rhinitis Continue with Melissa, Singulair, Flonase GERD (gastroesophageal reflux disease) Increase Prilosec to 40mg OTC Meds as discussed Increase Fluids and Rest Discussed Risks, Benefits and Alternatives of the current treatment regimen. Call or return to clinic prn if these symptoms worsen or fail to improve as anticipated. documented in this encounter Plan of Treatment Not on file documented as of this encounter Results * XR CHEST PA AND LATERAL (01/10/2014 11:49 AM CDT) Anatomical Region Laterality Modality Chest Computed Radiogr aphy 01/10/2014 11:3 8 AM CDT Impressions 01/10/2014 12:19 PM CDT IMPRESSION: No acute disease. ?? Dictated from [facility] Narrative 01/10/2014 12:19 PM CDT PA AND [...] IMPRESSION IMPRESSION: No acute disease. Dictated from [facility] Ciro Fernandez DO DIAGNOSTIC IMAGING O RDERABLES documented in this encounter Visit Diagnoses Diagnosis Cough- Primary Allergic rhinitis Allergic rhinitis, cause unspecified GERD (gastroesophageal reflux disease) Esophageal reflux Cough documented in this encounter
--- OUTSIDE RECORDS SUMMARY | 2024-08-19 06:45 | XMS_ITS | Encounter Summary ---
Author Organization [facility] Address [address] [place] [address] Care Team Providers Care Broadcast Producer Name Role Phone Unavailable Primary Care Provider Unavailabl e Reason for Visit * Reason Onset Date Comments Results 04/12/2014 Encounter Details Date Type Department Care Team (Late st Contact Info) Description 04/12/2014 Telephone [facility] Medicine - [facility] [address] [facility] [address] [place] [address] Ciro Fernandez, DO [address] [place] [address] Results Social History Tobacco Use [...] * Telephone Encounter - Jennifer Burnett - 04/12/2014 1:18 PM CDT lmor to call and sched/sb * Telephone Encounter - Jennifer Burnett - 04/12/2014 12:20 PM CDT Message copied by JENNIFER BURNETT on WedApr 12, 2014 12:20 PM ------ Message from: SARAH FERNANDEZ Created: WedApr 12, 2014 7:57 AM Your laboratory studies have been received, please return to office for a follow up examination. Overall they were in good range, It is just time for your regular appointment. You can follow up with myself or my nurse practitioner. ------ documented in this encounter Plan of Treatment Not on file documented as of this encounter Visit Diagnoses Not on filedocumented in this encounter
--- OUTSIDE RECORDS SUMMARY | 2024-08-19 06:45 | XMS_ITS | Encounter Summary ---
Author Organization [facility] Address [address] [place] [address] Care Team Providers Care Blind Escort Name Role Phone Unavailable Primary Care Provider Unavailabl e Reason for Visit * Reason Onset Date Comments Medication Refill 07/21/2014 Encounter Details Date Type Department Care Team (Late st Contact Info) Description 07/21/2014 Refill [facility] Medicine - [facility] [address] [facility] [address] [place] [address] Ciro Fernandez DO [address] [facility] [address] [place] [address] Social History Tobacco Use Types [...] Notes * Telephone Encounter - Kay Jesus POWDER TRUCK DRIVER - 07/21/2014 9:30 AM CSTFrom: Brendon Aldana To: Ciro Fernandez DO Sent: 07/21/2014 8:09 AM FLOOR MOLDER Subject: Medication Renewal Request Original authorizing provider: DO Brendon Tom would like a refill of the following medications: omeprazole (PRILOSEC) 20 mg Capsule, Delayed Release(E.C.) [Ciro Fernandez DO] Preferred pharmacy: [facility] [place], [place] - [address] Comment: R MOLDER documented in this encounter Plan of Treatment Not on file documented as of this encounter Visit Diagnoses Not on filedocumented in this encounter
--- OUTSIDE RECORDS SUMMARY | 2024-08-19 06:45 | XMS_ITS | Encounter Summary ---
Author Organization [facility] Address [address] [place] [address] Care Team Providers Care Psychometric Examiner Name Role Phone Unavailable Primary Care Provider Unavailabl e Reason for Referral * Eval and Treat (Routine) - Closed Specialty Diagnoses / Procedures Referred By Georgie gallagher Referred To Contact Gastroenterology Diagnoses Screen for colon cancer Ciro Fernandez DO [address] [facility] [address] [place] [address] Modesta Wise DO [address] [address] Referral ID Status Reason Start Date Expiration Date V isits Requested Visits Authorized [id number] Closed CRS To Schedule (STL) 10/13/2013 10/13/2014 1 1 LE FEEDER Reason for Visit * Reason Comments Hypertension chol,follow up labs Encounter Details Date Type Department Care Team (Late st Contact Info) Description 10/13/2013 3:00 PM BOTTLE FEEDER Office Visit [facility] Medicine - [facility] [place] [address] Ciro Fernandez DO [address] [facility] [address] [place] [address] Essential hypertension, benign (Primary Dx); Pure hypercholesterolemia; Allergic rhinitis; Screen for colon cancer Social History Tobacco Use Types Packs/Day [...] Reading Time Taken Comments Blood Pressure 122/70 10/13/2013 2:23 PM BOTTLE FEEDER Pulse 76 10/13/2013 2:23 PM BOTTLE FEEDER Temperature 36.6 ??C (97.9 ??F) 10/13/2013 2:23 PM CS T Respiratory Rate - - Oxygen Saturation - - Inhaled Oxygen Concentration - - Weight 94.3 kg (208 lb) 10/13/2013 2:23 PM BOTTLE FEEDER Height 180.3 cm (5' 11 ) 10/13/2013 2:23 PM BOTTLE FEEDER Body Mass Index 29.01 10/13/2013 2:23 PM BOTTLE FEEDER documented in this encounter Progress Notes * Ciro Fernandez, DO - 10/13/2013 4:01 PM CST SUBJECTIVE: Brendon Aldana is a 63 y.o. male here to discuss medical issues [...] prevention strategies. Last labs reviewed with patient. ALLERGIES: She also complains of increased allergy symptoms. Patient complains of clear rhinorrhea, nasal congestion and postnasal drip Frequency of symptoms: intermittent. Patient has had previous treatment which has been helpful: intranasal steroids and oral antihistamines Patient denies side effects of the medications [...] or unusual skin lesions noted OBJECTIVE: BP 122/70 Pulse 76 Temp(Src) 97.9 ??F (36.6 ??C) (Temporal) Ht 5' 11 (1.803 m) Wt 208 lb (94.348 kg) BMI 29.02 kg/m2 Appearance: alert, well appearing, and in no distress. Skin: I note only benign skin findings. No unusual rashes or suspicious skin lesions noted Eyes: normal, normal vessels, no hemorrhages HEENT: Ears normal. Throat and pharynx normal. Neck supple. No adenopathy or masses in the neck or supraclavicular regions. Thyroid not enlarged, no nodules detected. Pale enlarged nasal turbinates with clear rhinorrhea. CV: heart sounds: normal rate, regular [...] Future - PROTEIN , RANDOM URINE; Future Hyzaar Pure hypercholesterolemia - LIPID PANEL; Future - COMPREHENSIVE METABOLIC PANEL; Future Zocor Allergic rhinitis OTC rima. Screen for colon cancer - AMB REFERRAL TO GASTROENTEROLOGY Check BP on a regular basis and report highs and lows. Discussed Risks, Benefits and Alternatives of the current treatment regimen. F/u in 6 months LE FEEDER documented in this encounter Plan of Treatment Scheduled Referrals Name Type Priority Associated Diagnoses Order Schedule AMB REFERRAL TO GASTROENTEROLOGY Outpatient Referral Routine Screen for colon cancer Ordered: 10/13/2013 documented as of this encounter Visit Diagnoses Diagnosis Essential hypertension, benign- Primary Pure hypercholesterolemia Allergic rhinitis Allergic rhinitis, cause unspecified Screen for colon cancer Special screening for malignant neoplasms, colon documented in this encounter
--- OUTSIDE RECORDS SUMMARY | 2024-08-19 06:45 | XMS_ITS | Encounter Summary ---
Author Organization [facility] Address [address] [place] [address] Care Team Providers Care Television Technician Name Role Phone Unavailable Primary Care Provider Unavailabl e Reason for Visit * Reason Onset Date Comments Medication Refill 05/25/2014 Encounter Details Date Type Department Care Team (Late st Contact Info) Description 05/25/2014 Refill [facility] Medicine - [facility] [address] [facility] [address] [place] [address] Ciro Fernandez DO 107 [facility] [address] [place] [address] Allergic rhinitis (Primary Dx) Social History Tobacco Use Types [...] Notes * Telephone Encounter - Kay Jesus, [facility] - 05/28/2014 8:12 AM CDTFrom: Brendon Aldana To: Ciro Fernandez DO Sent: 05/25/2014 7:57 PM CDT Subject: Medication Renewal Request Original authorizing provider: DO Brendon Tom would like a refill of the following medications: fluticasone (FLONASE) 50 mcg/spray [place], Suspension [Ciro Fernandez DO] Preferred pharmacy: [facility] - [address] Comment: I realize I have refills to [facility] on the nose spray but [facility] this needs to be written as a. 90 day rx and sent to [employer]. Thank you. documented in this encounter Plan of Treatment Not on file documented as of this encounter Visit Diagnoses Diagnosis Allergic rhinitis- Primary Allergic rhinitis, cause unspecified documented in this encounter
--- OUTSIDE RECORDS SUMMARY | 2024-08-19 06:45 | XMS_ITS | Encounter Summary ---
Author Organization [facility] Address [address] [place] [address] Care Team Providers Care Test Boring Crew Chief Name Role Phone Unavailable Primary Care Provider Unavailabl e Reason for Visit * Reason Comments Medication Refill Encounter Details Date Type Department Care Team (Late st Contact Info) Description 11/01/2013 Refill [facility] - [facility] [address] [facility] [address] [place] [address] Ciro Fernandez, DO [address] [facility] [address] [place] [address] Social History Tobacco Use Types [...] Telephone Encounter - Kay Jesus CMA - 11/02/2013 9:01 AM CDT Scripts faxed. documented in this encounter Plan of Treatment Not on file documented as of this encounter Visit Diagnoses Not on filedocumented in this encounter
--- OUTSIDE RECORDS SUMMARY | 2024-08-19 06:45 | XMS_ITS | Encounter Summary ---
Author Organization [facility] Address [address] [place] [address] Care Team Providers Care Secretary To The Vice President Name Role Phone Unavailable Primary Care Provider Unavailabl e Reason for Visit * Reason Comments Hypertension follow up labs Encounter Details Date Type Department Care Team (Late st Contact Info) Description 05/09/2014 2:45 PM CDT Office Visit [facility] Medicine - [facility] [address] [facility] [address] [place] [address] Ciro Fernandez, DO [address] [facility] [address] [place] [address] Essential hypertension, benign (Primary Dx); Pure hypercholesterolemia; Esophageal reflux; Screening for prostate cancer Social History Tobacco [...] Sign Reading Time Taken Comments Blood Pressure 100/62 05/09/2014 2:21 PM CDT Pulse - - Temperature 37 ??C (98.6 ??F) 05/09/2014 2:21 PM CDT Respiratory Rate 12 05/09/2014 2:21 PM CDT Oxygen Saturation - - Inhaled Oxygen Concentration - - Weight 93.4 kg (206 lb) 05/09/2014 2:21 PM CDT Height 180.3 cm (5' 11 ) 05/09/2014 2:21 PM CDT Body Mass Index 28.73 05/09/2014 2:21 PM CDT documented in this encounter Progress Notes * Ciro Fernandez, DO - 05/09/2014 7:52 PM CDT SUBJECTIVE: Brendon Aldana is a 64 y.o. male here to discuss medical issues [...] or unusual skin lesions noted OBJECTIVE: BP 100/62 Temp(Src) 98.6 ??F (37 ??C) (Temporal) Resp 12 Ht 5' 11 (1.803 m) Wt 206 lb (93.441 kg) BMI 28.74 kg/m2 Appearance: alert, well appearing, and in [...] - COMPREHENSIVE METABOLIC PANEL; Future Zocor CoQ10 Esophageal reflux PPI Screening for prostate cancer - PSA; Future Check BP on a regular basis and report highs and lows. Discussed Risks, Benefits and Alternatives of the current treatment regimen. F/u in 6 months documented in this encounter Plan of Treatment Not on file documented as of this encounter Visit Diagnoses Diagnosis Essential hypertension, benign- Primary Pure hypercholesterolemia Esophageal reflux Screening for prostate cancer Special screening for malignant neoplasm of prostate documented in this encounter
--- OUTSIDE RECORDS SUMMARY | 2024-08-19 06:45 | XMS_ITS | Encounter Summary ---
Author Organization [facility] Address [address] [facility] Attn: [place] [address] Care Team Providers Care Bale Tie Machine Operator Name Role Phone Unavailable Primary Care Provider Unavailabl e Encounter Details Date Type Department Care Team (Late st Contact Info) Description 09/30/2013 Office Visit Initial Department [address] [facility] ATTN: [place] [address] Provider, Historical Social History Tobacco Use Types [...] Priority Date/Time Associated Diagnosis Comments PSA Routine 09/30/2013 7:33 AM [employer] PRECINCT LIPID PANEL Routine 09/30/2013 7:33 AM [employer] PRECINCT COMPREHENSIVE METABOLIC PANEL Routine 09/30/2013 7:33 AM [employer] PRECINCT documented in this encounter Results * COMPREHENSIVE METABOLIC PANEL (09/30/2013 7:33 AM [employer] PRECINCT) Pathologist [facility] GLUCOSE 98 65 - 99 mg/dL [facility] Comment:Fasting reference in terval BUN 17 7 - 25 mg/dL [facility] CREATININE 0.95 0.70 - 1.25 mg/dL [facility] Comment: For patients >49 years of age, the reference limit for Creatinine is approximately 13% higher for people identified as -Armenian. GFR 86 > OR = 60 mL/min/1 .73m2 [facility] GFR, 100 > OR = 60 mL/min/1 .73m2 [facility] BUN/CREAT RATIO NOT APPLICABLE 6 - (calc) [facility] SODIUM 141 135 - 146 mmol/L [facility] POTASSIUM 4.9 3.5 - 5.3 mmol/L [facility] . [facility] CHLORIDE 102 98 - 110 mmol/L [facility] CO2 27 19 - 30 mmol/L [facility] CALCIUM 9.5 8.6 - 10.3 mg/dL [facility]. [facility] TOTAL PROTEIN 7.3 6.1 - 8.1 g/dL [facility]. [facility] ALBUMIN 4.5 3.6 - 5.1 g/dL [facility]. [facility] GLOBULIN 2.8 1.9 - 3.7 g/dL (calc) [facility] ALBUMIN/GLOBULIN RATIO 1.6 1.0 - 2.5 (calc) [facility] BILIRUBIN TOTAL 1.0 0.2 - 1.2 mg/dL [facility] ALKALINE PHOSPHATASE 66 40 - 115 U/L [facility] AST 23 10 - 35 U/L [facility] ALT 32 9 - 46 U/L [facility] Comment: REPORT COMMENT: FASTING Test Performed at: [facility] [address] ??[id number] MINO ZAMAN DO,MPH 09/30/2013 7:33 AM [employer] PRECINCT Ciro Fernandez DO CHEMISTRY ORDERABLES INTERFACE SYSTEM Refer to clinic/hospital department [facility] [address] [place] [address] * LIPID PANEL (09/30/2013 7:33 AM [employer] PRECINCT) CHOLESTEROL 141 125 - 200 mg/dL [facility] Comment: Test Performed at: [facility] [address] ??[phone] MINO ZAMAN DO,MPH HDL 45 > OR = 40 mg/dL [facility] TRIGLYCERIDE 93 <150 mg/dL [facility] LDL CALCULATED 77 <130 mg/dL (calc) [facility] Comment: Desirable range <100 mg/dL for patients with CHD or diabetes and <70 mg/dL for diabetic patients with known heart disease. CHOL/HDL RATIO 3.1 < OR = 5.0 (calc) [facility] TOTAL NON-HDL CHOL(LDL+VLDL) 96 mg/dL (calc) [facility] Comment: Target for non-HDL cholesterol is 30 mg/dL higher than LDL cholesterol target. 09/30/2013 7:33 AM [employer] PRECINCT Ciro Fernandez DO CHEMISTRY ORDERABLES Performing Organization Address [facility] Phone Number INTERFACE SYSTEM Refer to clinic/hospital department [employer] [facility] [address] [place] [address] * PSA (09/30/2013 7:33 AM [employer] PRECINCT) PSA 0.3 < OR = 4.0 ng/mL [facility] Comment: This test was performed using the Siemens chemiluminescent method. Values obtained from different assay methods cannot be used interchangeably. PSA levels, regardless of value, should not be interpreted as absolute evidence of the presence or absence of disease. REPORT COMMENT: FASTING Test Performed at: [facility] [id number] [place] [address] ??[phone] MINO ZAMAN DO,MPH 09/30/2013 7:33 AM POLICE [employer] PRECINCT Ciro Fernandez DO CHEMISTRY ORDERABLES Performing Organization Address [facility] Phone Number INTERFACE SYSTEM Refer to clinic/hospital department [employer] [facility] [address] [place] [address] documented in this encounter Visit Diagnoses Not on filedocumented in this encounter
--- OUTSIDE RECORDS SUMMARY | 2024-08-19 06:45 | XMS_ITS | Encounter Summary ---
Author Organization [facility] Address [address] [place] [address] Care Team Providers Care Under Cutting Machine Operator Name Role Phone Unavailable Primary Care Provider Unavailabl e Reason for Visit * Reason Comments Medication Refill Encounter Details Date Type Department Care Team (Late st Contact Info) Description 04/30/2014 Refill [facility] Medicine - [facility] [address] [facility] [address] [place] [address] Ciro Fernandez, DO [address] [facility] [address] [place] [address] Social History Tobacco Use Types [...]
--- OUTSIDE RECORDS SUMMARY | 2024-08-19 06:45 | XMS_ITS | Encounter Summary ---
Author Organization [facility] Address [address] [place] [address] Care Team Providers Care Technician Automatic Name Role Phone Unavailable Primary Care Provider Unavailabl e Reason for Visit * Reason Onset Date Comments Results 01/25/2014 Encounter Details Date Type Department Care Team (Late st Contact Info) Description 01/25/2014 Telephone [facility] Gastroenterology [place] [facility] [address] [facility] [address] [place] [address] Modesta Wise DO [address] [facility] [address] [place] [address] Results Social History Tobacco Use Types Packs/Day [...] encounter Miscellaneous Notes * Telephone Encounter - November - 01/25/2014 9:08 AM CDT Reviewed colonoscopy results with patient. Repeat colonoscopy in 5 years. Patient verbalized understanding. Message copied by November on WedJan 25, 2014 9:08 AM ------ Message from: JANNA FAJRADO Created: WedJan 23, 2014 8:08 AM ----- Message ----- From: Modesta Wise DO Sent: 01/22/2014 5:10 PM To: Janna Fajardo Surveillance colonoscopy in 5 years. ------ documented in this encounter Plan of Treatment Not on file documented as of this encounter Visit Diagnoses Not on filedocumented in this encounter
--- OUTSIDE RECORDS SUMMARY | 2024-08-19 06:45 | XMS_ITS | Encounter Summary ---
Author Organization [facility] Address [address] [place] [address] Care Team Providers Care Slate Cutter Name Role Phone Unavailable Primary Care Provider Unavailabl e Reason for Visit * Reason Comments Sinus Pain congestion x 2wks , doxy didn't help Encounter Details Date Type Department Care Team (Late st Contact Info) Description 05/28/2014 10:45 AM CDT Office Visit [facility] Medicine - [facility] 150 [address] [facility] [address] [place] [address] Ciro Fernandez, DO 107 [facility] [address] [place] [address] Acute sinusitis (Primary Dx) Social History Tobacco Use [...] Reading Time Taken Comments Blood Pressure 130/70 05/28/2014 10:24 AM CDT Pulse 68 05/28/2014 10:24 AM CDT Temperature 37 ??C (98.6 ??F) 05/28/2014 10:24 AM CDT Respiratory Rate - - Oxygen Saturation - - Inhaled Oxygen Concentration - - Weight 96.6 kg (213 lb) 05/28/2014 10:24 AM CDT Height 180.3 cm (5' 11 ) 05/28/2014 10:24 AM CDT Body Mass Index 29.71 05/28/2014 10:24 AM CDT documented in this encounter Progress Notes * Jim Ciro B, DO - 05/28/2014 10:48 AM CDT Subjective: Brendon Aldana 64 y.o. male presents with nasal congestion, sinus pressure, postnasal discharge, MORALES. Patient was seen on 05/15/14 for sinusitis, states that he was placed on doxycycline, zyrtec d and Flonase. States that he has felt the same after completing antibiotic. Tried nasal steroids, over the counter antihistamines and repeated oral antibiotic courses OTC cough/cold product of patient's choice PRN [...] well as Allergies and Medications. Objective: BP 130/70 Pulse 68 Temp(Src) 98.6 ??F (37 ??C) (Temporal) Ht 5' 11 (1.803 m) Wt 213 lb (96.616 kg) BMI 29.72 kg/m2 Gen'l: NAD HEENT: [place]err[place], eomi. Sinuses tender to palpation over the bilateral maxillary sinuses. Throat erythematous without exudates. red, swollen nasal turbinates. clear Nasal Discharge. Ears Normal. Neck: Supple. No lymphadenopathy. Lungs: Clear to auscultation bilaterally. CV: RRR. No murmur. Skin: No rash noted on examination. A/P: Brendon was seen today for sinus pain. Diagnoses and associated orders for this visit: Acute sinusitis - cefdinir (OMNICEF) 300 mg capsule; Take 1 Cap by mouth every 12 hours for 10 days. He will call or send a message in 10 days with an update. OTC Meds as discussed Increase Fluids and Rest Discussed Risks, Benefits and Alternatives of the current treatment regimen. Call or return to clinic prn if these symptoms worsen or fail to improve as anticipated. documented in this encounter Plan of Treatment Not on file documented as of this encounter Visit Diagnoses Diagnosis Acute sinusitis- Primary Acute sinusitis, unspecified documented in this encounter
--- OUTSIDE RECORDS SUMMARY | 2024-08-19 06:45 | XMS_ITS | Encounter Summary ---
Author Organization [facility] Address [address] [place] [address] Care Team Providers Care Mechanical Maintenance Foreman Name Role Phone Unavailable Primary Care Provider Unavailabl e Reason for Visit * Reason Onset Date Comments Medication Refill 08/19/2014 Encounter Details Date Type Department Care Team (Late st Contact Info) Description 08/19/2014 Refill [facility] Medicine - [facility] 150 [address] [facility] [address] [place] [address] Ciro Fernandez DO 107 [facility] [address] [place] [address] Social History Tobacco [...] Telephone Encounter - Kay Jesus CMA - 08/20/2014 10:10 AM CSTFrom: Brendon Aldana To: Ciro Fernandez DO Sent: 08/19/2014 3:52 PM MEDIA MARKETING SPECIALIST Subject: Medication Renewal Request Original authorizing provider: DO Brendon Tom would like a refill of the following medications: tadalafil (CIALIS) 20 mg Oral tablet [Ciro Fernandez DO] [facility] [address] [place] [address] [facility] Comment: A MARKETING SPECIALIST documented in this encounter Plan of Treatment Not on file documented as of this encounter Visit Diagnoses Not on filedocumented in this encounter
--- OUTSIDE RECORDS SUMMARY | 2024-08-19 06:45 | XMS_ITS | Encounter Summary ---
Author Organization [facility] Address [address] [place] [address] Care Team Providers Care Rn Social Work Name Role Phone Unavailable Primary Care Provider Unavailabl e Reason for Visit * Reason Comments Sinus Pain ap, cough, drainag e x 5 days Encounter Details Date Type Department Care Team (Late st Contact Info) Description 12/18/2013 4:15 PM CDT Office Visit [facility] Medicine - [facility] [place] [address] [facility] [address] [place] [address] Ciro Fernandez, DO 107 [facility] [address] [place] [address] Sinusitis, acute (Primary Dx); Allergic rhinitis Social History Tobacco Use Types Packs/Day Years [...] Reading Time Taken Comments Blood Pressure 128/70 12/18/2013 4:05 PM CDT Pulse 72 12/18/2013 4:05 PM CDT Temperature 36.6 ??C (97.9 ??F) 12/18/2013 4:05 PM CD T Respiratory Rate - - Oxygen Saturation - - Inhaled Oxygen Concentration - - Weight 93 kg (205 lb) 12/18/2013 4:05 PM CDT Height 180.3 cm (5' 11 ) 12/18/2013 4:05 PM CDT Body Mass Index 28.59 12/18/2013 4:05 PM CDT documented in this encounter Progress Notes * Ciro Fernandez, - 12/18/2013 4:21 PM CDT Subjective: Brendon Aldana 63 y.o. male presents with a 1 week [...] well as Allergies and Medications. Objective: BP 128/70 Pulse 72 Temp(Src) 97.9 ??F (36.6 ??C) (Temporal) Ht 5' 11 (1.803 m) Wt 205 lb (92.987 kg) BMI 28.6 kg/m2 Gen'l: NAD HEENT: Perrla, eomi. Sinuses tender to palpation over the bilateral maxillary sinuses. Throat erythematous without exudates. red, swollen nasal turbinates. clear and yellow Nasal Discharge. Ears Normal. Neck: Supple. No lymphadenopathy. No meningeal signs. Negative Brudinski, Negative Kernigs Lungs: Clear to auscultation bilaterally. CV: RRR. No murmur. Skin: No rash noted on examination. A/P: Brendon was seen today for sinus pain. Diagnoses and associated orders for this visit: Sinusitis, acute - doxycycline hyclate (VIBRAMYCIN) 100 mg capsule; Take 1 Cap by mouth every 12 hours for 10 days. Allergic rhinitis - fluticasone (FLONASE) 50 mcg/spray [place], Suspension; Administer 2 Sprays in each nostril daily. [...] Diagnosis Sinusitis, acute- Primary Acute sinusitis, unspecified Allergic rhinitis Allergic rhinitis, cause unspecified documented in this encounter
--- OUTSIDE RECORDS SUMMARY | 2024-08-19 06:45 | XMS_ITS | Encounter Summary ---
Author Organization [facility] Address [address] [place] [address] Care Team Providers Care Horse Racing Analyst Name Role Phone Unavailable Primary Care Provider Unavailabl e Reason for Visit * Reason Onset Date Comments Medication Refill 12/25/2013 Encounter Details Date Type Department Care Team (Late st Contact Info) Description 12/25/2013 Refill [facility] Family Medicine - [facility] 150 [address] [facility] [address] [place] [address] Ciro Fernandez DO 107 [facility] [address] [place] [address] Social History Tobacco Use Types [...] Telephone Encounter - Kay Jesus CMA - 12/25/2013 11:35 AM CDTFrom: Brendon Aldana To: Ciro Fernandez DO Sent: 12/25/2013 8:33 AM CDT Subject: Medication Renewal Request Original authorizing provider: DO Brendon Tom would like a refill of the following medications: ibuprofen (MOTRIN) 800 mg tablet [Ciro Fernandez DO] losartan-hydrochlorothiazide (HYZAAR) 50-12.5 mg tablet [Ciro Fernandez DO] Preferred pharmacy: [facility] - [address] Comment: Flip must be written as a 90 day Flip and [facility]. Thank you. documented in this encounter Plan of Treatment Not on file documented as of this encounter Visit Diagnoses Not on filedocumented in this encounter
--- OUTSIDE RECORDS SUMMARY | 2024-08-19 06:45 | XMS_ITS | Encounter Summary ---
Author Organization [facility] Address [address] [place] [address] Care Team Providers Care Aircraft Pneudraulics Repairer Name Role Phone Unavailable Primary Care Provider Unavailabl e Reason for Visit * Auth/Cert - Closed Specialty Diagnoses / Procedures Referred By Contac t Referred To Contact Gastroenterology Diagnoses unknown Procedures COLONOSCOPY [facility] [address] [place] [address] Referral ID Status Reason Start Date Expiration Date Visits Re quested Visits Authorized [id number] Closed 1 1 Encounter Details Date Type Department Care Team (Late st Contact Info) Description 01/12/2014 7:38 AM CDT - 01/12/2014 10:39 AM CDT Hospital Encounter [facility] [address] [place] [address] Gatito Magallanes, [address] [facility] [address] [place] [address] Discharge Disposition: Home or Self Care Social [...] Sign Reading Time Taken Comments Blood Pressure 131/79 01/12/2014 10:34 AM CDT Pulse 69 01/12/2014 8:15 AM CDT Temperature 36.9 ??C (98.4 ??F) 01/12/2014 1 0:19 AM CDT Respiratory Rate 20 01/12/2014 10:3 4 AM CDT Oxygen Saturation 98% 01/12/2014 10: 34 AM CDT Inhaled Oxygen Concentration - - [...] 1 12/25/2013 05/09/2014 fluticasone (FLONASE) 50 mcg/spray [place], SuspensionIndications:A llergic rhinitis Administer 2 Sprays in [...] this encounter H&P Notes * Gatito Magallanes, DO - 01/12/2014 8:14 AM CDT PRE PROCEDURE [...] other eczema, due to unspecified cause ??? [place] (hard of hearing) Past Surgical History Procedure [...] Tab 1 ??? fluticasone (FLONASE) 50 mcg/spray [place], Suspension Administer 2 Sprays in each nostril [...] 01/12/2014 10:19 AM CDTAssociated Order(s): GI REPORT [facility] Endoscopy Patient Name: Brendon Aldana Procedure [...] signed electronically. Number of Addenda: 0 [address] [facility]; [place] [address] documented in this encounter OR Notes * [...] PATHOLOGY (01/12/2014 12:21 PM CDT) SURGICAL PATHOLOGY ?[facility] ?[address] ? [place], [place] ??[address] ? Patient: ??BRENDON ALDANA ? : ??1950 ? Procedure Date: ??01/12/2014 ? Accession Date: ??01/12/2014 ? Case No: ??[id number] ? Ordering Dr: ??GATITO MAGALLANES ? Case type SW is performed by [facility], [address] [place] [address], ? [place], [place] [address]; all other case types are performed by [facility] ? [facility], [address] [facility], [place], [place] ??[address] ?SURGICAL PATHOLOGY & NON-GYNECOLOGIC CYTOPATHOLOGY REPORT ? [...] ? Microscopic: ? The sections are labeled [id number], Brendon Aldana. ? The biopsy from the transverse colon displays two pieces of tubular ? adenoma. ? Special stain and/or immunohistochemical results are interpreted with ? controls that demonstrate appropriate staining reactions. Note on use of ? immunocytochemistry reagents: This test was developed and its performance ? characteristic determined by [facility], Department of ? Laboratory Medicine. ??It [...] FOR EDVIN FLYNN M.D.- 01/15/14 02:39 pm [facility] 01/12/2014 12:2 1 PM CDT Gatito Magallanes DO PATHOLOGY/CYTOLOGY ORDERABLES Performing Organization Address [facility]/State/[facility] Co de Phone Number [facility] CLIA# [id number] [address] [facility] [place] [address] * GI REPORT (01/12/2014 10:20 AM CDT) Narrative Transcriptions Gatito Magallanes DO - 01/12/2014 10:19 AM CDT [facility] Endoscopy Patient Name: Brendon Aldana Procedure [...] of Addenda: [address]; [place] [address] Gatito Magallanes DO GI PROCEDURE ORDERA BLES [...]
--- OUTSIDE RECORDS SUMMARY | 2024-08-19 06:45 | XMS_ITS | Encounter Summary ---
Author Organization [facility] Address [address] [place] [address] Care Team Providers Care Auto Rental Supervisor Name Role Phone Unavailable Primary Care Provider Unavailabl e Reason for Visit * Reason Onset Date Comments Medication Refill 04/23/2014 Encounter Details Date Type Department Care Team (Late st Contact Info) Description 04/23/[address] [facility] Family Medicine - [facility] 150 107 [facility] [address] [place] [address] Ciro Fernandez DO [address] [facility] [address] [place] [address] Social History Tobacco Use Types [...] Telephone Encounter - Delma Foster CMA - 04/24/2014 8:27 AM CDTFrom: Brendon Aldana To: Ciro Fernandez DO Sent: 04/23/2014 7:51 PM CDT Subject: Medication Renewal Request Original authorizing provider: DO Brendon Tom would like a refill of the following medications: simvastatin (ZOCOR) 40 mg Oral tablet [Ciro Fernandez DO] Preferred pharmacy: [facility] - [place], [place] - [address] [place] [address] Comment: This rx must be written as a 90day rx and sent [facility]. Thank you. documented in this encounter Plan of Treatment Not on file documented as of this encounter Visit Diagnoses Not on filedocumented in this encounter
--- OUTSIDE RECORDS SUMMARY | 2024-08-19 06:45 | XMS_ITS | Encounter Summary ---
Author Organization [facility] Address [address] [place] [address] Care Team Providers Care Glass Ribbon Machine Operator Assistant Name Role Phone Unavailable Primary Care Provider Unavailabl e Reason for Visit * Reason Onset Date Comments Medication Refill 05/10/2014 Encounter Details Date Type Department Care Team (Late st Contact Info) Description 05/10/[address] [facility] Family Medicine - [facility] [place] [address] [facility] [address] [place] [address] Ciro Fernandez, DO 107 [facility] [address] [place] [address] Social History Tobacco Use Types [...] encounter Miscellaneous Notes * Telephone Encounter - Jessica Burnett - 05/10/2014 3:30 PM CDT Yes please send to pharmacy * Telephone Encounter - Cristela Herman, RN - 05/10/2014 3:21 PM CDT Losartan (Cozaar) 50 mg was added to med list yesterday - does it need to be sent to pt's pharmacy?Let pt know. * Telephone Encounter - Jennifer Burnett - 05/10/2014 10:41 AM CDT HE WAS HERE YESTERDAY AND WAS SENDING A NEW BP MED, CAN WE PLEASE MAKE SURE IT [facility] SENT TO [facility]? documented in this encounter Plan of Treatment Not on file documented as of this encounter Visit Diagnoses Not on filedocumented in this encounter
--- OUTSIDE RECORDS SUMMARY | 2024-08-19 06:46 | XMS_ITS | Encounter Summary ---
Author Organization [facility] Address [address] [place] [address] Care Team Providers Care Branner Machine Tender Name Role Phone Unavailable Primary Care Provider Unavailabl e Encounter Details Date Type Department Care Team (Late st Contact Info) Description 08/15/2012 Abstract [facility] Medicine - [facility] [place] [address] [facility] [address] [place] [address] Ciro Fernandez, DO 107 [facility] [address] [place] [address] Social History Tobacco Use Types [...]
--- OUTSIDE RECORDS SUMMARY | 2024-08-19 06:46 | XMS_ITS | Encounter Summary ---
Author Organization [facility] Address [address] [place] [address] Care Team Providers Care Supervisor Chassis Assembly Name Role Phone Unavailable Primary Care Provider Unavailabl e Reason for Visit * Reason Onset Date Comments Results 07/18/2012 Encounter Details Date Type Department Care Team (Late st Contact Info) Description 07/18/2012 Telephone [facility] Family Medicine - [facility] [place] [address] [facility] [address] [place] [address] Ciro Fernandez, DO [address] [facility] [address] [place] [address] Results Social History Tobacco Use [...] Miscellaneous Notes * Telephone Encounter - Delma Tobar - 07/18/2012 10:40 AM CST Patient said that he is always sucking on a cough drop not sugar free and thinks this might be why he will get sugar free and try them. Mailed new lab orders OR SALES EXECUTIVE * Telephone Encounter - Delma Tobar - 07/18/2012 10:32 AM CST Message copied by DELMA TOBAR on WedJul 18, 2012 10:32 AM ------ Message from: SARAH FERNANDEZ Created: Damari Jul 17, 2012 5:40 PM Normal Electrolytes, Kidney Function and Liver Function. Prostate level is in normal range. Cholesterol level overall looks good. Glucose is slightly elevated. Continue with good nutrition including low carbohydrate intake and Increase your aerobic exercise to 30 minutes continuous 5 times per week. Recheck NEEDED labs in December and we will f/u at that point OR SALES EXECUTIVE documented in this encounter Plan of Treatment Not on file documented as of this encounter Visit Diagnoses Diagnosis Essential hypertension, benign Pure hypercholesterolemia documented in this encounter
--- OUTSIDE RECORDS SUMMARY | 2024-08-19 06:46 | XMS_ITS | Encounter Summary ---
Author Organization [facility] [address] [place] [address] Care Team Providers Care Data Warehousing Specialist Name Role Phone Unavailable Primary Care Provider Unavailabl e Reason for Referral * Eval and Treat (Routine) - Closed Specialty Diagnoses / Procedures Referred By Contac t Referred To Contact Pulmonology Diagnoses Chronic cough Ciro Fernandez DO [address] [facility] [address] [place] [address] [facility] [place] [address] Referral ID Status Reason Start Date Expiration Date V isits Requested Visits Authorized Closed CRS To Schedule (STL) 06/21/2012 06/21/2013 1 1 Scheduling Instructions Please contact patient on Work phone number CLE LEASING AND RENTAL MANAGER * Outpatient Services (Routine) - Closed Specialty Diagnoses / Procedures Referred By Contac t Referred To Contact Pulmonology Diagnoses Chronic cough Procedures PULMONARY FUNCTION TEST Ciro Fernandez DO [address] [facility] [address] [place] [address] Referral ID Status Reason Start Date Expiration Date Visits Re quested Visits Authorized Closed 06/21/2012 06/21/2013 1 1 CLE LEASING AND RENTAL MANAGER Reason for Visit * Reason Onset Date Comments Cough 06/21/2012 Encounter Details Date Type Department Care Team (Late st Contact Info) Description 06/21/2012 Telephone [facility] [place] [address] [facility] [address] [place] [address] Ciro Fernandez, DO [address] [facility] [address] [place] [address] Cough Social History Tobacco Use Types Packs/Day [...] * Telephone Encounter - Kay Jesus - 06/21/2012 10:[address] Fernandez states to order PFT and send to Pulmonology. Patient can continue Tessalon Perles until testing. Patient notified. Test and Amb referral sent. CLE LEASING AND RENTAL MANAGER * Telephone Encounter - Marine Barrett - 06/21/2012 10:[address] Fernandez told patient to call back today to let him know how the Advair is working for him. He thinks is working ok. He doesn't think its done everything it was supposed to do. CLE LEASING AND RENTAL MANAGER documented in this encounter Plan of Treatment Scheduled Orders Name Type Priority Associated Diagnoses Orde r Schedule PULMONARY FUNCTION TEST PFT Routine Chronic cough Ordered: 06/21/2012 Scheduled Referrals Name Type Priority Associated Diagnoses Orde r Schedule AMB REFERRAL TO PULMONARY Outpatient Referral Routine Chronic cough Ordered: 06/21/2012 documented as of this encounter Visit Diagnoses Diagnosis Chronic cough- Primary Cough documented in this encounter
--- OUTSIDE RECORDS SUMMARY | 2024-08-19 06:46 | XMS_ITS | Encounter Summary ---
Author Organization [facility] Address [address] [place] [address] Care Team Providers Care Dining Server Name Role Phone Unavailable Primary Care Provider Unavailabl e Reason for Visit * Reason Onset Date Comments Other 08/23/2013 Encounter Details Date Type Department Care Team (Late st Contact Info) Description 08/23/2013 Telephone [facility] Family Medicine - [facility] [place] [address] [facility] [address] [place] [address] Ciro Fernandez, DO [address] [facility] [address] [place] [address] Other Social History Tobacco Use Types Packs/Day Years [...] Telephone Encounter - Delma Foster CMA - 08/23/2013 11:04 AM CST Spoke with patient this will be ok ING MACHINE OPERATOR * Telephone Encounter - Marine Barrett - 08/23/2013 10:26 AM CST Patient was due for labs in jul and he wants to know if he can wait till Sep because his is due for labs then and then they can go together ING MACHINE OPERATOR documented in this encounter Plan of Treatment Not on file documented as of this encounter Visit Diagnoses Not on filedocumented in this encounter
--- OUTSIDE RECORDS SUMMARY | 2024-08-19 06:46 | XMS_ITS | Encounter Summary ---
Author Organization [facility] Address [address] [place] [address] Care Team Providers Care Media Traffic Manager Name Role Phone Unavailable Primary Care Provider Unavailabl e Reason for Visit * Reason Comments Cough congestion 1 month Encounter Details Date Type Department Care Team ([facility] st Contact Info) Description 05/09/2013 4:00 PM CDT Office Visit [facility] Medicine - [facility] [address] [facility] [address] [place] [address] Ciro Fernandez, DO [address] [facility] [address] [place] [address] Acute sinusitis (Primary Dx); Allergic rhinitis; Cough Social History Tobacco Use Types Packs/Day [...] Reading Time Taken Comments Blood Pressure 124/68 05/09/2013 3:31 PM CDT Pulse 68 05/09/2013 3:31 PM CDT Temperature 37.1 ??C (98.7 ??F) 05/09/2013 3:31 PM CD T Respiratory Rate - - Oxygen Saturation - - Inhaled Oxygen Concentration - - Weight 93.9 kg (207 lb) 05/09/2013 3:31 PM CDT Height 180.3 cm (5' 11 ) 05/09/2013 3:31 PM CDT Body Mass Index 28.87 05/09/2013 3:31 PM CDT documented in this encounter Progress Notes * Ciro Fernandez, DO - 05/09/2013 7:43 PM CDT Subjective: Brendon Aldana 63 y.o. male presents with a 2 week history of cough, sore throat, postnasal discharge, MORALES. Tried over the counter antihistamines OTC cough/cold product of patient's choice PRN and fluids andrest with no improvement. [place] [facility] [place]. Patient denies chest pain or SOB. No [...] or bloody stools. Neurological ROS: negative for confusion, numbness/tingling or weakness Past Medical/Surgical/Social/Family History reviewed as well as Allergies and Medications. Objective: BP 124/68 Pulse 68 Temp(Src) 98.7 ??F (37.1 ??C) (Temporal) Ht 5' 11 (1.803 m) Wt 207 lb (93.895 kg) BMI 28.88 kg/m2 Gen'l: NAD HEENT: Perrla, eomi. Sinuses [...] orders for this visit: Acute sinusitis - doxycycline hyclate (VIBRAMYCIN) 100 mg Oral capsule; Take 1 Cap by mouth every 12 hours for 10 days. Allergic rhinitis - montelukast (SINGULAIR) 10 mg Oral tablet; Take 1 Tab by mouth daily at bedtime. - cetirizine-pseudoephedrine sr 12 hour (ZYRTEC-D) 5-120 mg Oral tablet; Take 1 Tab by mouth 2 times daily. Cough - montelukast (SINGULAIR) 10 mg Oral tablet; Take 1 Tab by mouth daily at bedtime. OTC Meds as discussed Increase Fluids and Rest Discussed Risks, Benefits and Alternatives of the current treatment regimen. Call or return to clinic prn if these symptoms worsen or fail to improve as anticipated. documented in this encounter Plan of Treatment Not on file documented as of this encounter Visit Diagnoses Diagnosis Acute sinusitis- Primary Acute sinusitis, unspecified Allergic rhinitis Allergic rhinitis, cause unspecified Cough documented in this encounter
--- OUTSIDE RECORDS SUMMARY | 2024-08-19 06:46 | XMS_ITS | Encounter Summary ---
Author Organization [facility] Address [address] [place] [address] Care Team Providers Care Vocational Rehab Consultant Name Role Phone Unavailable Primary Care Provider Unavailabl e Reason for Visit * Reason Comments Cough patient feels winded like he can not get a full breath Encounter Details Date Type Department Care Team (Late st Contact Info) Description 06/14/2012 2:15 PM BEHAVIORAL INTERVENTION SPECIALIST Office Visit [facility] Medicine - [facility] [address] [facility] [address] [place] [address] Ciro Fernandez, DO 107 [facility] [address] [place] [address] Cough; Allergic rhinitis Social History Tobacco Use Types [...] Sign Reading Time Taken Comments Blood Pressure 112/62 06/14/2012 1:59 PM BEHAVIORAL INTERVENTION SPECIALIST Pulse 62 06/14/2012 1:59 PM BEHAVIORAL INTERVENTION SPECIALIST Temperature 37 ??C (98.6 ??F) 06/14/2012 1:59 PM BEHAVIORAL INTERVENTION SPECIALIST Respiratory Rate - - Oxygen Saturation 98% 06/14/2012 2:18 PM BEHAVIORAL INTERVENTION SPECIALIST Inhaled Oxygen Concentration - - Weight 97.1 kg (214 lb) 06/14/2012 1:59 PM BEHAVIORAL INTERVENTION SPECIALIST Height 177.8 cm (5' 10 ) 06/14/2012 1:59 PM BEHAVIORAL INTERVENTION SPECIALIST Body Mass Index 30.71 06/14/2012 1:59 PM BEHAVIORAL INTERVENTION SPECIALIST documented in this encounter Progress Notes * Ciro Fernandez, DO - 06/14/2012 7:40 PM CST Subjective: Brendon Aldana 62 y.o. male presents with about a 2 month history of cough, sore throat, postnasaldischarge States it has improved but still with a cough. Still taking PPI for stomach which is helping. Tried over the counter antihistamines OTC cough/cold product of patient's choice PRN and fluids andrest with no improvement. Was on 2 antibiotics with only a little improvement Tessalon and cough drops are helping the most. Patient denies chest pain or SOB. No [...] well as Allergies and Medications. Objective: BP 112/62 Pulse 62 Temp(Src) 98.6 ??F (37 ??C) (Temporal) Ht 5' 10 (1.778 m) Wt 214 lb (97.07 kg) BMI 30.71 kg/m2 SpO2 98% Gen'l: NAD HEENT: Perrla, eomi. Sinuses nontender to palpation over the bilateral maxillary sinuses. Throat erythematous without exudates. pink swollen nasal turbinates. clear and yellow Nasal Discharge. Ears Normal. Neck: Supple. No lymphadenopathy. No meningeal signs. Negative Brudinski, Negative Kernigs Lungs: Clear to auscultation bilaterally. CV: RRR. No murmur. Ext: No edema Skin: No rash noted on examination. A/P: Brendon was seen today for cough. Diagnoses and associated orders for this visit: Cough - benzonatate (TESSALON) 200 mg Oral capsule; Take 1 Cap by mouth 3 times daily as needed for Cough. - fluticasone-salmeterol (ADVAIR DISKUS) 250-50 mcg/dose Inhalation DsDv; Take 1 Puff by inhalation2 times daily. Allergic rhinitis - cetirizine-pseudoephedrine sr 12 hour (ZYRTEC-D) 5-120 mg Oral tablet; Take 1 Tab by mouth 2 times daily. Consider pulmonology consultation. OTC Meds as discussed Increase Fluids and Rest Discussed Risks, Benefits and Alternatives of the current treatment regimen. Call or return to clinic prn if these symptoms worsen or fail to improve as anticipated. VIORAL INTERVENTION SPECIALIST documented in this encounter Plan of Treatment Not on file documented as of this encounter Visit Diagnoses Diagnosis Cough Allergic rhinitis Allergic rhinitis, cause unspecified documented in this encounter
--- OUTSIDE RECORDS SUMMARY | 2024-08-19 06:46 | XMS_ITS | Encounter Summary ---
Author Organization [facility] Address [address] [place] [address] Care Team Providers Care Housekeeping/Laundry Supervisor Name Role Phone Unavailable Primary Care Provider Unavailabl e Reason for Visit * Reason Onset Date Comments Results 01/30/2013 xray Encounter Details Date Type Department Care Team (Late st Contact Info) Description 01/30/2013 Telephone [facility] Family Medicine - [facility] [address] [facility] [address] [place] [address] Ciro Fernandez, DO 107 [facility] [address] [place] [address] Results (xray) Social History Tobacco [...] Notes * Telephone Encounter - Delma Tobar CMA - 01/30/2013 9:33 AM CDT Patient informed * Telephone Encounter - Delma Tobar CMA - 01/30/2013 9:33 AM CDT Message copied by DELMA TOBAR on WedJan 30, 2013 9:33 AM ------ Message from: SARAH FERNANDEZ Created: WedJan 30, 2013 8:05 AM Xray of your ribs were normal. No signs of a fracture. Continue with recommendations given at appointment. Call or return to clinic if these symptoms worsen or fail to improve as anticipated. ------ documented in this encounter Plan of Treatment Not on file documented as of this encounter Visit Diagnoses Not on filedocumented in this encounter
--- OUTSIDE RECORDS SUMMARY | 2024-08-19 06:46 | XMS_ITS | Encounter Summary ---
Author Organization [facility] Address [address] [place] [address] Care Team Providers Care Line Installer Repairer Name Role Phone Unavailable Primary Care Provider Unavailabl e Reason for Referral * Outpatient Services (Routine) - Closed Specialty Diagnoses / Procedures Referred By Georgie gallagher Referred To Contact Pulmonology Diagnoses RENAE (dyspnea on exertion) Procedures BRONCHIAL CHALLENGE WITH METHACHOLINE Chidi Charles MD [address] [facility] [address] [address] [place] [address] Referral ID Status Reason Start Date Expiration Date Visits Re quested Visits Authorized [id number] Closed 07/12/2012 07/12/2013 1 1 AL MANAGER Reason for Visit * Outpatient Services (Routine) - Closed Specialty Diagnoses / Procedures Referred By Contac t Referred To Contact Pulmonology Diagnoses RENAE (dyspnea on exertion) Procedures BRONCHIAL CHALLENGE WITH METHACHOLINE Chidi Charles MD [address] [place] [address] Referral ID Status Reason Start Date Expiration Date Visits Re quested Visits Authorized [id number] Closed 07/12/2012 07/12/2013 1 1 Encounter Details Date Type Department Care Team (Latest Contact Info) Description 07/20/2012 3:11 PM VISUAL MANAGER - 07/20/2012 11:59 PM VISUAL MANAGER Hospital Encounter [facility] Pulmonary Function [facility] [place] [facility] [address] [facility] [address] [place] [address] Chidi Charles MD [address] [place] [address] Discharge Disposition: Home or Self Care Social [...] Sig Dispensed Refills Start Date End Date mometasone (NASONEX) 50 mcg/actuation Both Nostril Ekron Administer 2 Sprays in each nostril daily. 17 Gram 3 07/12/2012 07/25/2012 albuterol (PROAIR HFA) 90 mcg/Actuation Inhalation HFAA inhaler Take 2 Puffs by inhalation every 4 hours as needed for Shortness of Breath. 6.7 Gram 3 07/12/2012 07/25/2012 cetirizine-pseudoephed rine sr 12 hour (ZYRTEC-D) 5-120 mg Oral tabletIndications:Nj rgic rhinitis Take 1 Tab by mouth 2 times daily. 72 Tab 1 06/14/2012 08/23/2012 ibuprofen (MOTRIN) 800 mg Oral tablet Take 1 Tab by mouth every 6 hours as needed for Pain. 60 Tab 3 05/16/2012 12/07/2012 tadalafil (CIALIS) 20 mg Oral tablet Take 1 Tab by mouth 1 time daily as needed for Other (See Comment). 6 Tab 3 12/30/2011 08/20/2014 simvastatin (ZOCOR) 40 mg Oral tablet Take 1 Tab by mouth Daily LATE. 90 Tab 3 12/21/2011 01/03/2013 omeprazole (PRILOSEC) 20 mg Oral CpDRIndications:Esopha geal reflux Take 1 Cap by mouth daily. 90 Cap 3 07/14/2011 08/24/2012 documented as of this encounter Procedure Notes * Chidi Charles MD - 07/21/2012 12:15 AM CSTAssociated Order(s): BRONCHIAL CHALLENGE WITH METHACHOLINE [place], [place] [address] Pulmonary Function Test CSN: [id number] DATE OF SERVICE: 07/20/2012 METHACHOLINE CHALLENGE TEST. DATE OF TEST 07/20/2012. INTERPRETATION Methacholine challenge testing was performed using sequential spirometry with serial dilutions of methacholine. There was no evidence of a significant decline in the FEV-1, corresponding to a PD20 FEV-1 of greater than 32 mg/mL. IMPRESSION Negative methacholine challenge test with no demonstrable airway hyperresponsiveness. DED:MEDQ DID: [id number] Dictated by: Chidi Charles M.D. AL MANAGER documented in this encounter Plan of Treatment Not on file documented as of this encounter Procedures Procedure Name Priority Date/Time Associated Diagnosis Comments BRONCHIAL INHALATION CHALLENGE Routine 07/21/2012 7:05 AM VISUAL MANAGER RENAE (dyspnea on exertion) documented in this encounter Results * BRONCHIAL CHALLENGE WITH METHACHOLINE (07/21/2012 7:05 AM VISUAL MANAGER) Narrative Transcriptions Chidi Charles MD - 07/21/2012 12:15 AM CST [place], [place] [address] Pulmonary Function Test CSN: [id number] DATE OF SERVICE: 07/20/2012 METHACHOLINE CHALLENGE TEST. DATE OF TEST 07/20/2012. INTERPRETATION Methacholine challenge testing was performed using sequential spirometrywith serial dilutions of methacholine. There was no evidence of a significant decline in the FEV-1, correspondingto a PD20 FEV-1 of greater than 32 mg/mL. IMPRESSION Negative methacholine challenge test with no demonstrable airwayhyperresponsiveness. DED:MEDQ DID:[id number] Dictated by: Chidi Charles M.D. Chidi Charles MD PFT ORDERABLES EXTERNAL LAB documented in this encounter Visit Diagnoses Diagnosis RENAE (dyspnea on exertion) Other dyspnea and respiratory abnormality documented in this encounter
--- OUTSIDE RECORDS SUMMARY | 2024-08-19 06:46 | XMS_ITS | Encounter Summary ---
Author Organization [facility] Address [address] [place] [address] Care Team Providers Care General Manager In Training Name Role Phone Unavailable Primary Care Provider Unavailabl e Encounter Details Date Type Department Care Team (Late st Contact Info) Description 01/27/2013 Orders Only [facility] [address] [facility] , [address] [place] [address] Ciro Fernandez, DO 107 [facility] [address] [place] [address] Social History Tobacco Use Types [...]
--- OUTSIDE RECORDS SUMMARY | 2024-08-19 06:46 | XMS_ITS | Encounter Summary ---
Author Organization [employer] [facility] Address [address] [place] [address] Care Team Providers Care Geographic Information Systems Director Name Role Phone Unavailable Primary Care Provider Unavailabl e Reason for Visit * Reason Onset Date Comments Medication Refill 04/05/2012 Encounter Details Date Type Department Care Team (Late st Contact Info) Description 04/05/2012 Refill Central Business Office [address] [place] [address] Bobo Archer Provider Social History Tobacco Use Types Packs/Day Years [...] * Telephone Encounter - Kay Jesus - 04/05/2012 9:40 AM CDTFrom: BRENDON ALDANA Sent: WedApr 05, 2012 9:09 AM Subject: Medication Renewal Request Brendon Aldana would like a refill of the following medications: Preferred pharmacy: [facility] Comment: I need a new rx for Losartan-HCTZ 50-12.5 mg Tab. This needs to be a 90 day rx sent to [facility]. Thank you. Other - see comments for explanation documented in this encounter Plan of Treatment Not on file documented as of this encounter Visit Diagnoses Not on filedocumented in this encounter
--- OUTSIDE RECORDS SUMMARY | 2024-08-19 06:46 | XMS_ITS | Encounter Summary ---
Author Organization [facility] Address [address] [place] [address] Care Team Providers Care Die Sinker Name Role Phone Unavailable Primary Care Provider Unavailabl e Encounter Details Date Type Department Care Team (Late st Contact Info) Description 07/11/2012 Orders Only [facility] [address] [facility] [address] [place] [address] Provider, Abstract NO ADDRESS ON FILE Social [...] Associated Diagnosis Comments PULMONARY FUNCTION TEST Routine 07/05/2012 documented in this encounter Results * PULMONARY FUNCTION TEST (07/05/2012) Abstract Provider [facility]FT [facility] documented in this encounter Visit Diagnoses Not on filedocumented in this encounter
--- OUTSIDE RECORDS SUMMARY | 2024-08-19 06:46 | XMS_ITS | Encounter Summary ---
Author Organization [facility] Address [address] [place] [address] Care Team Providers Care Professor Of Floriculture Name Role Phone Unavailable Primary Care Provider Unavailabl e Reason for Referral * Outpatient Services (Routine) - Closed Specialty Diagnoses / Procedures Referred By Contac t Referred To Contact Diagnoses Abdominal pain, generalized Procedures XR ABDOMEN 1 VW Ciro Fernandez DO [address] [place] [address] Referral ID Status Reason Start Date Expiration Date Visits Re quested Visits Authorized [id number] Closed 01/27/2013 02/27/2014 1 1 Reason for Visit * Outpatient Services (Routine) - Closed Specialty Diagnoses / Procedures Referred By Contac t Referred To Contact Diagnoses Abdominal pain, generalized Procedures XR ABDOMEN 1 VW Ciro Fernandez DO [address] [place] [address] Referral ID Status Reason Start Date Expiration Date Visits Re quested Visits Authorized [id number] Closed 01/27/2013 02/27/2014 1 1 Encounter Details Date Type Department Care Team (Latest Contact Info) Description 01/27/2013 3:14 PM CDT - 01/27/2013 11:59 PM CDT Hospital Encounter [facility] [place] [address] Ciro Fernandez DO [address] [place] [address] Discharge Disposition: Home or Self Care Social [...] Sig Dispensed Refills Start Date End Date cyclobenzaprine (FLEXERIL) 10 mg Oral tabletIndications:Rib pain Take 1 Tab by mouth nightly as needed for Spasm. 30 Tab 0 01/27/2013 01/30/2013 simvastatin (ZOCOR) 40 mg Oral tablet TAKE 1 TABLET BY MOUTH DAILY IN THE EVENING 90 Tab 2 01/03/2013 04/24/2014 ibuprofen (MOTRIN) 800 mg Oral tablet Take 1 Tab by mouth every 6 hours as needed for Pain. 180 Tab 0 12/09/2012 03/30/2013 losartan-hydrochlorothia zide (HYZAAR) 50-12.5 mg Oral tablet Take 1 Tab by mouth daily. 90 Tab 1 10/13/2012 03/30/2013 omeprazole (PRILOSEC) 20 mg Oral CpDRIndications:Esophage al reflux Take 1 Cap by mouth daily. 90 Cap 3 08/24/2012 08/23/2013 cetirizine-pseudoephedri ne sr 12 hour (ZYRTEC-D) 5-120 mg Oral tabletIndications:Allerg ic rhinitis Take 1 Tab by mouth 2 times daily. 72 Tab 1 08/23/2012 05/09/2013 tadalafil (CIALIS) 20 mg Oral tablet Take 1 Tab by mouth 1 time daily as needed for Other (See Comment). 6 Tab 3 12/30/2011 08/20/2014 documented as of this encounter Plan of Treatment Not on file documented as of this encounter Procedures Procedure Name Priority Date/Time Associated Diagnosis Comments XR ABDOMEN 1 VW Routine 01/27/2013 3:35 PM CDT Abdominal pain, generalized documented in this encounter Results * XR ABDOMEN 1 VW (01/27/2013 3:35 PM CDT) Anatomical Region Laterality Modality Abdomen Computed Radiogr aphy 01/27/2013 3:18 PM CDT Impressions 01/27/2013 4:01 PM CDT IMPRESSION: ??An abundance of stool. Dictated at [facility] Narrative 01/27/2013 4:01 PM CDT ABDOMEN, Single view HISTORY: Abdominal discomfort FINDINGS: ??There is an abundance of fecal material throughout the colon and distending the rectum. ??No evidence of small bowel obstruction is appreciated. ?? No abnormal calcifications are seen. Procedure Note Damaris Harrison MD - 01/27/2013 ABDOMEN, Single view HISTORY: Abdominal discomfort FINDINGS: There is an abundance of fecal material throughout the colon and distending the rectum. No evidence of small bowel obstruction is appreciated. No abnormal calcifications are seen. IMPRESSION IMPRESSION: An abundance of stool. Dictated at [facility] in [place] Ciro Fernandez DO DIAGNOSTIC IMAGING O RDERABLES documented in this encounter Visit Diagnoses Diagnosis Abdominal pain, generalized documented in this encounter
--- OUTSIDE RECORDS SUMMARY | 2024-08-19 06:46 | XMS_ITS | Encounter Summary ---
Author Organization [facility] Address [address] [place] [address] Care Team Providers Care Integration Project Manager Name Role Phone Unavailable Primary Care Provider Unavailabl e Reason for Visit * Reason Comments Nasal Congestion sinus pain , cough, 1week patient said the left side has more pressure Encounter Details Date Type Department Care Team (Late st Contact Info) Description 09/16/2012 11:45 AM LADLE PULLER Office Visit [facility] Medicine - [facility] [address] [facility] [address] [place] [address] Ciro Fernandez, DO 107 [facility] [address] [place] [address] Acute sinusitis; Allergic rhinitis; Cough Social History Tobacco Use [...] Sign Reading Time Taken Comments Blood Pressure 118/68 09/16/2012 11:26 AM LADLE PULLER Pulse 68 09/16/2012 11:26 AM LADLE PULLER Temperature 37 ??C (98.6 ??F) 09/16/2012 11:26 AM LADLE PULLER Respiratory Rate - - Oxygen Saturation - - Inhaled Oxygen Concentration - - Weight 94.8 kg (209 lb) 09/16/2012 11:26 AM LADLE PULLER Height 180.3 cm (5' 11 ) 09/16/2012 11:26 AM LADLE PULLER Body Mass Index 29.15 09/16/2012 11:26 AM LADLE PULLER documented in this encounter Progress Notes * JimShortyaileen Jaime, DO - 09/16/2012 11:51 AM CST Subjective: Brendon Aldana 62 y.o. male presents with a 1 week history of cough, sore throat, postnasal discharge, MORALES. Tried over the counter antihistamines OTC cough/cold product of patient's choice PRN and fluids andrest with no improvement. Patient denies chest pain or SOB. No N/V/D. Positive ROS for fatigue. No other symptoms. Positive Sick Contacts Negative Fevers positive for history of allergies. He did go to pulm and ENT for his cough. Reviewed notes. He may need to go back to ENT for further evaluation and possibly allergy testing. Review of Systems - General ROS: negative [...] well as Allergies and Medications. Objective: BP 118/68 Pulse 68 Temp(Src) 98.6 ??F (37 ??C) (Temporal) Ht 5' 11 (1.803 m) Wt 209 lb (94.802 kg) BMI 29.15 kg/m2 Gen'l: NAD HEENT: Perrla, eomi. Sinuses tender to palpation over the bilateral maxillary sinuses. Throat erythematous without exudates. red, swollen nasal turbinates. clear and yellow Nasal Discharge. Ears Normal. Neck: Supple. No lymphadenopathy. No meningeal signs. Negative Brudinski, Negative Kernigs Lungs: Clear to auscultation bilaterally. CV: RRR. No murmur. Skin: No rash noted on examination. A/P: Brendon was seen today for nasal congestion. Diagnoses and associated orders for this visit: Acute sinusitis - levofloxacin (LEVAQUIN) 500 mg Oral tablet; Take 1 Tab by mouth daily for 10 days. Allergic rhinitis Zetonna inh daily prn Cough OTC Meds as discussed Increase Fluids and Rest Discussed Risks, Benefits and Alternatives of the current treatment regimen. Call or return to clinic prn if these symptoms worsen or fail to improve as anticipated. E PULLER documented in this encounter Plan of Treatment Not on file documented as of this encounter Visit Diagnoses Diagnosis Acute sinusitis Acute sinusitis, unspecified Allergic rhinitis Allergic rhinitis, cause unspecified Cough documented in this encounter
--- OUTSIDE RECORDS SUMMARY | 2024-08-19 06:46 | XMS_ITS | Encounter Summary ---
Author Organization [facility] Address [address] [place] [address] Care Team Providers Care Farmworker Fur Name Role Phone Unavailable Primary Care Provider Unavailabl e Reason for Referral * Outpatient Services (Routine) - Closed Specialty Diagnoses / Procedures Referred By Contac t Referred To Contact Diagnoses Abdominal pain, generalized Procedures XR ABDOMEN 1 VW Ciro Fernandez DO [address] [facility] [address] [place] [address] Referral ID Status Reason Start Date Expiration Date Visits Re quested Visits Authorized [id number] Closed 01/27/2013 02/27/2014 1 1 Reason for Visit * Reason Comments Rib Pain left x 3 days, injur ed mowing grass Encounter Details Date Type Department Care Team (Late st Contact Info) Description 01/27/2013 3:15 PM CDT Office Visit [facility] Medicine - [facility] [address] [place] [address] Ciro Fernandez DO [address] [place] [address] Rib pain (Primary Dx); Abdominal pain, generalized Social History Tobacco Use Types Packs/Day Years [...] Reading Time Taken Comments Blood Pressure 120/72 01/27/2013 2:54 PM CDT Pulse 76 01/27/2013 2:54 PM CDT Temperature 36.4 ??C (97.5 ??F) 01/27/2013 2:54 PM CD T Respiratory Rate - - Oxygen Saturation - - Inhaled Oxygen Concentration - - Weight 93.4 kg (206 lb) 01/27/2013 2:54 PM CDT Height 175.3 cm (5' 9 ) 01/27/2013 2:54 PM CDT Body Mass Index 30.42 01/27/2013 2:54 PM CDT documented in this encounter Progress Notes * Ciro Fernandez, DO - 01/27/2013 3:08 PM CDT Subjective: Brendon Aldana is a 62 y.o. male who complains of Rib Pain for 3 days. Occurred while he was stretching out his arm reaching for a stick while on a prepleater. without radiation. There is no numbness/paresthesia. No history ofRib Fracture. Pain is worsened by physical activity, position and twisting/turning. Pain is relieved by nothing, otc pain meds, rest. Quality to pain is described as uncomfortable, aching. Frequency, duration, and intensity are rated by the patient as 6 out of 10. Patient with no other complaints today. Denies bowel symptoms or blood in his stool. Denies CP, SOB, Heart Palpitations, Calf Pain, urinary complaints Negative for other red flags including bowel and bladder problems Past Medical/Surgical/Social/Family History reviewed as well as Allergies and Medications. Exam: Blood pressure 120/72, pulse 76, temperature 97.5 ??F (36.4 ??C), temperature source Temporal, height 5' 9 (1.753 m), weight 206 lb (93.441 kg). Patient appears to be in mild to moderate pain. Positive Pain located left lower anterior rib cage and upper left abdomen. Peripheral pulses are palpable. Abdomen: Soft, otherwise non-tender and non-distended, normal bowel sounds. No hepatosplenomegaly. Neuro: Neck supple. S1 and S2 normal, no murmurs, clicks, gallops or rubs. Regular rate and rhythm. Chest is clear, no wheezing or rales. Normal symmetric air entry throughout both lung dsouza. No other chest wall deformities or tenderness. Psych: Appropriate Impression: Plan: Brendon was seen today for rib pain. Diagnoses and associated orders for this visit: Rib pain - cyclobenzaprine (FLEXERIL) 10 mg Oral tablet; Take 1 Tab by mouth nightly as needed for Spasm. - HYDROcodone-acetaminophen (LORTAB) 5-500 mg Oral tablet; Take 1 Tab by mouth every 6 hours as needed for Pain. - XR RIBS UNILATERAL LEFT W PA CHEST; Future Abdominal pain, generalized - XR ABDOMEN 1 VW: Abdominal pain/distention, Stones of urinary tract; Future Ice, Rest Full inspiration/expiration breathing. Consider Physical Therapy and other studies if not improving. Call or return to clinic prn if these symptoms worsen or fail to improve as anticipated. Discussed Risks, Benefits and Alternatives of the current treatment regimen. documented in this encounter Plan of Treatment Not on file documented as of this encounter Results * XR ABDOMEN 1 VW (01/27/2013 3:35 PM CDT) Anatomical Region Laterality Modality Abdomen Computed Radiogr aphy 01/27/2013 3:18 PM CDT Impressions 01/27/2013 4:01 PM CDT IMPRESSION: ??An abundance of stool. Dictated at [facility] Narrative 01/27/2013 4:01 PM CDT ABDOMEN, Single [...] IMPRESSION: An abundance of stool. Dictated at [facility] Ciro Fernandez DO DIAGNOSTIC IMAGING O RDERABLES * XR RIBS UNILATERAL LEFT W PA CHEST (01/27/2013 3:33 PM CDT) Anatomical Region Laterality Modality Chest Computed Radiogr aphy 01/27/2013 3:18 PM CDT Impressions 01/30/2013 7:42 AM CDT IMPRESSION: ??Negative. Dictated from [facility] Narrative 01/30/2013 7:42 AM CDT LEFT RIBS WITH PA CHEST 5 VIEWS ??01/27/13 INDICATION: Chest wall pain from injury FINDINGS: The heart and mediastinum are within normal limits. ??The lungs are free of active infiltrates. ??No pleural effusion or pneumothorax is identified. ?? No fracture, dislocation, focal bone production or destruction is identified. Procedure Note Brett Nye MD - 01/30/2013 LEFT RIBS WITH PA CHEST 5 VIEWS 01/27/13 INDICATION: Chest wall pain from injury FINDINGS: The heart and mediastinum are within normal limits. The lungs are free of active infiltrates. No pleural effusion or pneumothorax is identified. No fracture, dislocation, focal bone production or destruction is identified. IMPRESSION IMPRESSION: Negative. Dictated from [facility] Ciro Fernandez DO DIAGNOSTIC IMAGING O RDERABLES documented in this encounter Visit Diagnoses Diagnosis Rib pain- Primary Chest pain, unspecified Abdominal pain, generalized Rib pain Chest pain, unspecified Abdominal pain, generalized documented in this encounter
--- OUTSIDE RECORDS SUMMARY | 2024-08-19 06:46 | XMS_ITS | Encounter Summary ---
Author Organization [facility] Address [address] [place] [address] Care Team Providers Care Spectral Scientist Name Role Phone Unavailable Primary Care Provider Unavailabl e Reason for Visit * Reason Onset Date Comments Medication Refill 10/13/2012 Encounter Details Date Type Department Care Team (Late st Contact Info) Description 10/13/2012 Refill Central Business Office [address] [place] [address] Bobo Archer Provider Social History Tobacco Use [...] * Telephone Encounter - Kay Jesus - 10/13/2012 10:29 AM CSTFrom: BRENDON ALDANA Sent: [facility] Oct 13, 2012 8:39 AM Subject: Medication Renewal Request Brendon Aldana would like a refill of the following medications: Preferred pharmacy: [facility] Comment: I need a refill prescription for Losartan-Hctz 50-12.5mg Tab. [id number] and it needs to be written as a 90 day prescription. Thank you. Other - see comments for explanation ERY CARRIER documented in this encounter Plan of Treatment Not on file documented as of this encounter Visit Diagnoses Not on filedocumented in this encounter
--- OUTSIDE RECORDS SUMMARY | 2024-08-19 06:46 | XMS_ITS | Encounter Summary ---
Author Organization [facility] Address [address] [place] [address] Care Team Providers Care Government Relations Director Name Role Phone Unavailable Primary Care Provider Unavailabl e Reason for Visit * Reason Onset Date Comments Medication Refill 03/30/2013 Encounter Details Date Type Department Care Team (Late st Contact Info) Description 03/30/2013 Refill [facility] Family Medicine - [facility] [address] [facility] [address] [place] [address] Ciro Fernandez DO [address] [facility] [address] [place] [address] Social History Tobacco Use Types [...] Telephone Encounter - Delma Foster CMA - 03/30/2013 10:20 AM CDTFrom: Brendon Aldana To: Ciro Fernandez DO Sent: 03/30/2013 9:21 AM CDT Subject: Medication Renewal Request Original authorizing provider: DO Brendon Tom would like a refill of the following medications: losartan-hydrochlorothiazide (HYZAAR) 50-12.5 mg Oral tablet [Ciro Fernandez DO] ibuprofen (MOTRIN) 800 mg Oral tablet [Ciro Fernandez DO] Preferred pharmacy: [facility] - [place], [place] - [address] [facility] Comment: These prescriptions must be written as 90 day prescriptions and sent to [facility]. Thank you. documented in this encounter Plan of Treatment Not on file documented as of this encounter Visit Diagnoses Not on filedocumented in this encounter
--- OUTSIDE RECORDS SUMMARY | 2024-08-19 06:46 | XMS_ITS | Encounter Summary ---
Author Organization [facility] Address [address] [place] [address] Care Team Providers Care Continuous Wave Operator Name Role Phone Unavailable Primary Care Provider Unavailabl e Reason for Visit * Reason Onset Date Comments Medication Refill 08/25/2013 Encounter Details Date Type Department Care Team (Late st Contact Info) Description 08/25/2013 Refill [facility] Family Medicine - [facility] [facility] [address] [place] [address] Ciro Fernandez, DO 107 [facility] [address] [place] [address] Allergic rhinitis (Primary Dx) Social [...] * Telephone Encounter - Jennifer Burnett - 08/25/2013 9:23 AM CST Pt called to check on this, can we send it to the actual pharm For him Claudette Palacio in [facility] ER OPERATOR documented in this encounter Plan of Treatment Not on file documented as of this encounter Visit Diagnoses Diagnosis Allergic rhinitis- Primary Allergic rhinitis, cause unspecified documented in this encounter
--- OUTSIDE RECORDS SUMMARY | 2024-08-19 06:46 | XMS_ITS | Encounter Summary ---
Author Organization [facility] Address [address] [place] [address] Care Team Providers Care Transcriber Name Role Phone Unavailable Primary Care Provider Unavailabl e Reason for Visit * Reason Onset Date Comments Erroneous encounter-disregard 01/04/2013 Encounter Details Date Type Department Care Team (Late st Contact Info) Description 01/04/2013 Telephone [facility] Family Medicine - [facility] [address] [facility] [address] [place] [address] Ciro Fernandez, DO 107 [facility] [address] [place] [address] Erroneous encounter-disregard Social History Tobacco Use Types Packs/Day Years [...]
--- OUTSIDE RECORDS SUMMARY | 2024-08-19 06:46 | XMS_ITS | Encounter Summary ---
Author Organization [facility] Address [address] [place] [address] Care Team Providers Care Tin Pot Operator Name Role Phone Unavailable Primary Care Provider Unavailabl e Reason for Referral * Outpatient Services (Routine) - Closed Specialty Diagnoses / Procedures Referred By Contac t Referred To Contact Pulmonology Diagnoses Chronic cough Procedures PULMONARY FUNCTION TEST Ciro Fernandez DO [address] [place] [address] Referral ID Status Reason Start Date Expiration Date Visits Re quested Visits Authorized [id number] Closed 06/23/2012 06/23/2013 1 1 INE SPECIALIST Reason for Visit * Outpatient Services (Routine) - Closed Specialty Diagnoses / Procedures Referred By Contac t Referred To Contact Pulmonology Diagnoses Chronic cough Procedures PULMONARY FUNCTION TEST Ciro Fernandez DO [address] [place] [address] Referral ID Status Reason Start Date Expiration Date Visits Re quested Visits Authorized [id number] Closed 06/23/2012 06/23/2013 1 1 Encounter Details Date Type Department Care Team (Latest Contact Info) Description 07/05/2012 2:51 PM VACCINE SPECIALIST - 07/05/2012 11:59 PM VACCINE SPECIALIST Hospital Encounter [facility] Pulmonary Function [facility] [place] [address] [facility] [address] [place] [address] Ciro Fernandez DO [address] [place] [address] Discharge Disposition: Home or Self Care [...] Sig Dispensed Refills Start Date End Date cetirizine-pseudoephed rine sr 12 hour (ZYRTEC-D) 5-120 mg Oral tabletIndications:Nj rgic rhinitis Take 1 Tab by mouth 2 times daily. 72 Tab 1 06/14/2012 08/23/2012 fluticasone-salmeterol (ADVAIR DISKUS) 250-50 mcg/dose Inhalation DsDvIndications:Cough Take 1 Puff by inhalation 2 times daily. 1 Inhaler 0 06/14/2012 07/12/2012 Cetirizine (ZYRTEC) 10 mg Oral Cap Take 5 mg by mouth daily. 07/12/2012 ibuprofen (MOTRIN) 800 mg Oral tablet Take 1 Tab by mouth every 6 hours as needed for Pain. 60 Tab 3 05/16/2012 12/07/2012 pseudoephedrine (SUDOGEST) 30 mg Oral tablet Take 1 Tab by mouth every 6 hours as needed for Allergies. 60 Tab 0 03/22/2012 07/12/2012 tadalafil (CIALIS) 20 mg Oral tablet Take [...] as of this encounter Procedure Notes * Aguila Fabian MD - 07/09/2012 4:57 PM CSTAssociated Order(s): PULMONARY FUNCTION TEST [place] [address] Pulmonary Function Test CSN: [id number] DATE OF SERVICE: REASON Chronic cough. This is a technically adequate study. The FVC is mildly reduced. The FEV1 and FEV1% are normal. TLCis at the lower limits of normal. IMPRESSION There is no obstructive or restrictive ventilatory defect. Diffusing capacity is within normal limits. SP:MEDQ DID: [id number] Dictated by: Aguila Fabian MD cc: Ciro Fernandez D.O. INE SPECIALIST documented in this encounter Plan of Treatment Not on file documented as of this encounter Procedures Procedure Name Priority Date/Time Associated Diagnosis Comments PULMONARY FUNCTION TEST Routine 07/10/2012 11:13 AM VACCINE SPECIALIST Chronic cough documented in this encounter Results * PULMONARY FUNCTION TEST (07/10/2012 11:13 AM VACCINE SPECIALIST) Narrative Transcriptions Aguila Fabian MD - 07/09/2012 4:57 PM CST [place], [place] [address] Pulmonary Function Test CSN: [id number] DATE OF SERVICE: REASON Chronic cough. This is a technically adequate study. The FVC is mildly reduced. TheFEV1 and FEV1% are normal. TLC is at the lower limits of normal. IMPRESSION There is no obstructive or restrictive ventilatory defect. Diffusingcapacity is within normal limits. SP:MEDQ DID:[id number] Dictated by: Aguila Fabian MD cc: Ciro Fernandez D.O. Ciro Fernandez DO PFT ORDERABLES EXTERNAL LAB documented in this encounter Visit Diagnoses Diagnosis Chronic cough Cough documented in this encounter
--- OUTSIDE RECORDS SUMMARY | 2024-08-19 06:46 | XMS_ITS | Encounter Summary ---
Author Organization [facility] Address [address] [place] [address] Care Team Providers Care Insurance Consultant Name Role Phone Unavailable Primary Care Provider Unavailabl e Reason for Visit * Reason Onset Date Comments Medication Refill 12/09/2012 Encounter Details Date Type Department Care Team (Late st Contact Info) Description 12/09/[address] [facility] Family Medicine - [place] [address] [facility] [address] [place] [address] Ciro Fernandez, DO 107 [facility] [address] [place] [address] Social History Tobacco Use Types [...] Telephone Encounter - Kay Jesus CMA - 12/09/2012 9:31 AM CDT Patient states ins will not cover Ibuprofen locally [facility] scriptsent. documented in this encounter Plan of Treatment Not on file documented as of this encounter Visit Diagnoses Not on filedocumented in this encounter
--- OUTSIDE RECORDS SUMMARY | 2024-08-19 06:46 | XMS_ITS | Encounter Summary ---
Author Organization [facility] Address [address] [place] [address] Care Team Providers Care Second Operator Name Role Phone Unavailable Primary Care Provider Unavailabl e Reason for Visit * Reason Onset Date Comments Medication Refill 08/24/2012 Encounter Details Date Type Department Care Team (Late st Contact Info) Description 08/24/2012 Refill [facility] Medicine - [facility] [address] [facility] [address] [place] [address] Ciro Fernandez, DO [address] [facility] [address] [place] [address] Esophageal reflux (Primary Dx) Social History Tobacco Use Types [...] as of this encounter Visit Diagnoses Diagnosis Esophageal reflux- Primary documented in this encounter
--- OUTSIDE RECORDS SUMMARY | 2024-08-19 06:46 | XMS_ITS | Encounter Summary ---
Author Organization [facility] Address [address] [place] [address] Care Team Providers Care Flow Coordinator Name Role Phone Unavailable Primary Care Provider Unavailabl e Reason for Visit * Reason Comments Follow Up RESULTS TO BRONCHIAL CHALLENGE WITH METHACHOLINE Encounter Details Date Type Department Care Team (Late st Contact Info) Description 07/25/2012 1:45 PM AIR ANTISUBMARINE OFFICER Office Visit [facility] Pulmonology [facility] [address] [place] [address] Chidi Charles MD [address] [place] [address] Cough (Primary Dx); GERD (gastroesophageal reflux disease) Social History Tobacco [...] Reading Time Taken Comments Blood Pressure 124/68 07/25/2012 1:14 PM AIR ANTISUBMARINE OFFICER Pulse 71 07/25/2012 1:14 PM AIR ANTISUBMARINE OFFICER Temperature - - Respiratory Rate 20 07/25/2012 1:14 PM AIR ANTISUBMARINE OFFICER Oxygen Saturation 97% 07/25/2012 1:14 PM AIR ANTISUBMARINE OFFICER RA Inhaled Oxygen Concentration - - Weight 98.4 kg (217 lb) 07/25/2012 1:14 PM AIR ANTISUBMARINE OFFICER Height 180.3 cm (5' 11 ) 07/25/2012 1:14 PM AIR ANTISUBMARINE OFFICER Body Mass Index 30.27 07/25/2012 1:14 PM AIR ANTISUBMARINE OFFICER documented in this encounter Progress Notes * Chidi Charles MD - 07/25/2012 1:21 PM CST Pulmonary Outpatient Followup Note 07/25/2012 1:21 PM Patient Name: Brendon Aldana 1950 Primary Care Physician: Ciro Fernandez, Date of Service: 07/25/2012 Chief Complaint Patient presents with ??? Follow Up RESULTS TO BRONCHIAL CHALLENGE WITH METHACHOLINE Impression: Cough and dysphonia, vocal cord dysfunction or vocal cord pathology needs strong consideration; no evidence of reactive airways disease. Plan: 1. Obtain ENT consultation for possible direct laryngoscopy and opinion on upper airway disease. 2. Discontinue prn albuterol at this time. 3. RTC as needed. Interim History: Patient is a 62 y.o. male who presents for followup. In the interim, he has used his rescue albuterol without much effect, and likewise quit his steroid nasal spray due to headaches . He continues to have cough and hoarseness, with no expectoration, wheeze, dyspnea or fever. Current Medications Current Outpatient Prescriptions Medication Sig Dispense Refill ??? benzonatate (TESSALON) 200 mg Oral capsule Take 1 Cap by mouth 3 times daily as needed for Cough. 30 Cap 0 ??? Codeine-GuaiFENesin (ROBITUSSIN-AC) 10-100 mg/5 mL Oral solution Take 10 mL by mouth every 6 hours as needed for Cough. 150 mL 0 ??? cetirizine-pseudoephedrine sr 12 hour (ZYRTEC-D) 5-120 mg Oral tablet Take 1 Tab by mouth 2 times daily. 72 Tab 1 ??? ibuprofen (MOTRIN) 800 mg Oral tablet Take 1 Tab by mouth every 6 hours as needed for Pain. 60 Tab 3 ??? tadalafil (CIALIS) 20 mg Oral tablet Take 1 Tab by mouth 1 time daily as needed for Other (See Comment). 6 Tab 3 ??? simvastatin (ZOCOR) 40 mg Oral tablet Take 1 Tab by mouth Daily LATE. 90 Tab 3 ??? omeprazole (PRILOSEC) 20 mg Oral CpDR Take 1 Cap by mouth daily. 90 Cap 3 ??? DISCONTD: mometasone (NASONEX) 50 mcg/actuation Both Nostril Julian Administer 2 Sprays in each nostril daily. 17 Gram 3 ??? DISCONTD: albuterol (PROAIR HFA) 90 mcg/Actuation Inhalation HFAA inhaler Take 2 Puffs by inhalation every 4 hours as needed for Shortness of Breath. 6.7 Gram 3 Allergies Allergies Allergen Reactions ??? Bactrim (Sulfamethoxazole-Trimethoprim) Rash ??? Medrol (Methylprednisolone) Rash and Other (See Comments) redness Review of Systems: General ROS: negative for weight changes, fever Dermatological ROS: negative for skin rashes or unusual skin lesions ENT ROS: positive for - headaches, nasal congestion, nasal discharge, sneezing and sore throat Respiratory ROS: positive for - cough DRY and dyspnea on exertion Cardiovascular ROS: negative for chest pain or dyspnea on exertion Gastrointestinal ROS: negative for reflux, abdominal pain, change in bowel habits, or black or bloody stools Genito-Urinary ROS: negative for dysuria, trouble voiding, or hematuria Musculoskeletal ROS: negative for back pain, neck pain or joint pain or swelling Neurological ROS: negative for TIA or stroke symptoms Psychological ROS: negative for anxiety or depressive symptoms Endocrine ROS: negative for polyuria/polydipsia or new changes in weight Hematological and Lymphatic ROS: negative for swollen glands or abnormal bleeding Allergy and Immunology ROS: positive for - seasonal allergies Sleep; POSITIVE snoring, NEGATIVE apneas, NEGATIVE daytime sleepiness , NEGATIVE abnormal limb movements, NEGATIVE insomnia PHYSICAL EXAM BP 124/68 Pulse 71 Resp 20 Ht 5' 11 (1.803 m) Wt 217 lb (98.431 kg) BMI 30.27 kg/m2 SpO2 97% General: Alert and stable, appears in no acute distress. HEENT: Normocephalic and atraumatic. REA, nasal mucosa is normal with no erythema or exudate. Oropharynx is normal. Neck: Supple, trachea midline, no adenopathy, thyroid normal. No jugular venous distension. Lungs: Bilateral equal and clear breath sounds to auscultation. No crackles or wheeze. Heart: Heart sounds are normal and regular. No audible murmurs. Abdomen: Soft and Non-Tender. No hepatosplenomegaly. Bowel sounds are present and normal. Extremities: No cyanosis, clubbing or edema Skin: Skin color and texture appears normal, no rashes or erythema. Lymph Nodes: Cervical, supraclavicular nodes normal. Neurologic: Non focal. PFT IMPRESSION Negative methacholine challenge test with no demonstrable airway hyperresponsiveness Problem List Patient Active Problem List Diagnoses Date Noted ??? Actinic keratosis 12/23/2011 ??? AK (actinic keratosis) 05/26/2010 ??? Allergic Rhinitis 11/11/2009 ??? Osteoarthritis 01/02/2009 ??? Esophageal Reflux ??? Essential Hypertension, Benign ??? Pure Hypercholesterolemia ??? Allergic Rhinitis, Cause Unspecified Please do not hesitate to contact me with any clarifications or questions. Chidi Charles MD Pulmonary, Critical Care, Neurocritical Care & Sleep Medicine [facility], [place] [address] Off: [phone] Pager: [phone] ANTISUBMARINE OFFICER documented in this encounter Plan of Treatment Not on file documented as of this encounter Visit Diagnoses Diagnosis Cough- Primary GERD (gastroesophageal reflux disease) Esophageal reflux documented in this encounter
--- OUTSIDE RECORDS SUMMARY | 2024-08-19 06:46 | XMS_ITS | Encounter Summary ---
Author Organization [facility] Address [address] [place] [address] Care Team Providers Care Asbestos Cloth Inspector Name Role Phone Unavailable Primary Care Provider Unavailabl e Reason for Referral * Eval and Treat (Routine) - Closed Specialty Diagnoses / Procedures Referred By Contjeanie t Referred To Contact Otolaryngology Diagnoses Cough Ciro Fernandez DO [address] [facility] [address] [place] [address] Thierry Long MD [address] [place] [address] Referral ID Status Reason Start Date Expiration Date V isits Requested Visits Authorized [id number] Closed CRS To Schedule (STL) 07/26/2012 07/27/2013 1 1 STOCK SPECULATOR Reason for Visit * Reason Comments Other spots on skin severa l months Encounter Details Date Type Department Care Team (Late st Contact Info) Description 07/26/2012 1:00 PM LIVESTOCK SPECULATOR Office Visit [facility] [address] [place] [address] Ciro Fernandez DO [address] [place] [address] Cough (Primary Dx); AK (actinic keratosis); Seborrheic keratosis; Cutaneous skin tags; Rosacea Social History Tobacco Use Types Packs/Day Years [...] Sign Reading Time Taken Comments Blood Pressure 116/64 07/26/2012 12:45 PM LIVESTOCK SPECULATOR Pulse 64 07/26/2012 12:45 PM LIVESTOCK SPECULATOR Temperature 36.6 ??C (97.8 ??F) 07/26/2012 12:[address] Respiratory Rate - - Oxygen Saturation - - Inhaled Oxygen Concentration - - Weight 98.9 kg (218 lb) 07/26/2012 12:45 PM LIVESTOCK SPECULATOR Height 180.3 cm (5' 11 ) 07/26/2012 12:45 PM LIVESTOCK SPECULATOR Body Mass Index 30.4 07/26/2012 12:45 PM LIVESTOCK SPECULATOR documented in this encounter Progress Notes * Ciro Fernandez, DO - 07/26/2012 1:22 PM CST Subjective: Brendon Aldana is a 62 y.o. male who is here to discuss a skin lesions on his body. States several skin tags that are irritable. Previously with AK's. No other family or personal history of skin cancer/melanoma. States left forearm, bilateral hands, left ear for a few months he has had wounds that don't heal Also with moles for several years on his scalp and back. +skin tags that are irritating him around his neck and arm. Continued cough. States only when he is talking. Went to the [employer] and studies/exam was normal. He is going to be going to an ENT and wanting a referral. Review of Systems - General ROS: negative for weight changes, fever Respiratory ROS: negative for shortness of breath, or wheezing Cardiovascular ROS: negative for chest pain, heart palpitations or dyspnea on exertion Gastrointestinal ROS: negative for abdominal pain, change in bowel habits, or black or bloody stools. Neurological ROS: negative for confusion, numbness/tingling or weakness Past Medical/Surgical/Social/Family History reviewed as well as Allergies and Medications. Objective: BP 116/64 Pulse 64 Temp(Src) 97.8 ??F (36.6 ??C) (Temporal) Ht 5' 11 (1.803 m) Wt 218 lb (98.884 kg) BMI 30.40 kg/m2 Appearance: alert, well appearing, and in [...] rales. No chest wall deformities or tenderness. Psych: Appropriate +bilateral nasal telangiectasias and erythema. +left forearm with two 0.5cm erythematous plaques, left hand with two 0.3 cm erythematous plaque, right hand with one 0.3 cm erythematous plaque, left ear with 0.3cm erythematous plaque. +skin tags around his neck and arms. +multiple SK's on his back, legs, chest. Assessment: Plan: Brendon was seen today for other. Diagnoses and associated orders for this visit: Ryder Long MD Ak (actinic keratosis) - OK DESTRUC PREMAL,FIRST LESION - AK - OK DESTRUC BENIGN/PREMAL,2-14 LESIONS - AK We have discussed this procedure, including option of not performing surgery, technique of surgery and potential for scarring at an earlier visit and again today. Discussed Risks, Benefits and Alternatives of the current treatment regimen. PROCEDURE: After informed consent was obtained, with clean technique, cryotherapy with liquid nitrogen was performed on all of the AK's - x 6. Antibiotic dressing is applied, and wound care instructions provided. Be alert for any signs of cutaneous infection. The procedure was well tolerated without complications. Follow up: the patient may return prn. Seborrheic keratosis Cutaneous skin tags Consider removing if symptoms continue Rosacea - metroNIDAZOLE (METROGEL) 0.75 % Topical Gel; Apply to affected area 2 times daily. Discussed Risks, Benefits and Alternatives of the current treatment regimen. Lesions are benign and patient is reassured, asymptomatic skin lesions as described, symptomatic skin lesions as described. Asymptomatic benign lesions can be observed for changes or symptoms over time. Symptomatic lesions can be treated if she desires; to be scheduled at a later date. Sun protection with sunscreens and clothing to prevent skin cancer is discussed. The signs and symptoms of malignant skin lesions are reviewed with her today. STOCK SPECULATOR documented in this encounter Plan of Treatment Scheduled Referrals Name Type Priority Associated Diagnoses Orde r Schedule AMB REFERRAL TO ENT Outpatient Referral Routine Cough Ordered: 07/26/2012 documented as of this encounter Visit Diagnoses Diagnosis Cough- Primary AK (actinic keratosis) Actinic keratosis Seborrheic keratosis Other seborrheic keratosis Cutaneous skin tags Unspecified hypertrophic and atrophic condition of skin Rosacea documented in this encounter
--- OUTSIDE RECORDS SUMMARY | 2024-08-19 06:46 | XMS_ITS | Encounter Summary ---
Author Organization [facility] Address [address] [facility] Attn: [place] [address] Care Team Providers Care Harmonic Analyst Name Role Phone Unavailable Primary Care Provider Unavailabl e Encounter Details Date Type Department Care Team (Late st Contact Info) Description 07/16/2012 Outpatient Historical Initial Department [address] [place] [address] ATTN: [place] [address] Provider, Historical Social History Tobacco Use Types [...] Diagnosis Comments PROTEIN , RANDOM URINE Routine 2 7:54 AM BAG PATCHER PSA Routine 07/16/2012 7:54 AM BAG PATCHER LIPID PANEL Routine 07/16/2012 7:54 AM BAG PATCHER COMPREHENSIVE METABOLIC PANEL Routine 07/16/2012 7:54 AM BAG PATCHER documented in this encounter Results * PROTEIN , RANDOM URINE (07/16/2012 7:54 AM BAG PATCHER) Creatinine, Urine 210 20 - 370 mg/dL [facility] PROTEIN TOTAL, URINE 67 22 - 128 mg/g creat [facility] PROTEIN TOTAL, URINE 14 5 - 25 mg/dL [facility] Comment: Test Performed at: [facility] [address] [place], [place] ??[phone] MINO ZAMAN DO,MPH 07/16/2012 7:54 AM BAG PATCHER Ciro Fernandez DO URINE ORDERABLES INTERFACE SYSTEM Refer to clinic/hospital department [facility] [address] [place] [address] * (ABNORMAL) COMPREHENSIVE METABOLIC PANEL (07/16/2012 7:54 AM BAG PATCHER) GLUCOSE 102(H) 65 - 99 mg/dL [facility] Comment:Fasting reference in terval BUN 15 7 - 25 mg/dL [facility] CREATININE 0.87 0.70 - 1.25 mg/dL [facility] Comment: For patients >49 years of age, the reference limit for Creatinine is approximately 13% higher for people identified as -Guyanese. GFR 94 > OR = 60 mL/min/1 .73m2 [facility] GFR, 109 > OR = 60 mL/min/1 .73m2 [employer] [facility] BUN/CREAT RATIO NOT APPLICABLE 6 - 22 (calc) [facility] SODIUM 142 135 - 146 mmol/L [facility] POTASSIUM 4.1 3.5 - 5.3 mmol/L [facility] CHLORIDE 102 98 - 110 mmol/L [employer] [facility] CO2 29 21 - 33 mmol/L [employer] CALCIUM 9.2 8.6 - 10.3 mg/dL [facility] TOTAL PROTEIN 6.9 6.1 - 8.1 g/dL [facility] ALBUMIN 4.2 3.6 - 5.1 g/dL [employer] GLOBULIN 2.7 1.9 - 3.7 g/dL (calc) [facility] . [facility] ALBUMIN/GLOBULIN RATIO 1.6 1.0 - 2.5 (calc) [facility] BILIRUBIN TOTAL 0.7 0.2 - 1.2 mg/dL [facility] ALKALINE PHOSPHATASE 66 40 - 115 U/L [facility] AST 20 10 - 35 U/L [facility] ALT 25 9 - 60 U/L [facility] Comment: Test Performed at: [employer] [facility] [address] [place], [place] ??[phone] MINO ZAMAN DO,MPH 07/16/2012 7:54 AM BAG PATCHER Ciro Fernandez DO CHEMISTRY ORDERABLES Performing Organization Address [facility] Phone Number INTERFACE SYSTEM Refer to clinic/hospital department [facility] [address] [place] [address] * (ABNORMAL) LIPID PANEL (07/16/2012 7:54 AM BAG PATCHER) CHOLESTEROL 154 125 - 200 mg/dL [facility] Comment: Test Performed at: Webcom [facility] [place], [place] ??[phone] MINO ZAMAN DO,MPH HDL 39(L) > OR = 40 mg/dL [facility] TRIGLYCERIDE 128 <150 mg/dL [employer] LDL CALCULATED 89 <130 mg/dL (calc) [facility] Comment: Desirable range <100 mg/dL for patients with CHD or diabetes and <70 mg/dL for diabetic patients with known heart disease. CHOL/HDL RATIO 3.9 < OR = 5.0 (calc) [facility] TOTAL NON-HDL CHOL(LDL+VLDL) 115 mg/dL (calc) [employer] [facility] Comment: Target for non-HDL cholesterol is 30 mg/dL higher than LDL cholesterol target. 07/16/2012 7:54 AM BAG PATCHER Ciro Fernandez DO CHEMISTRY ORDERABLES Performing Organization Address [facility] de Phone Number INTERFACE SYSTEM Refer to clinic/hospital department [facility] [address] [place] [address] * PSA (07/16/2012 7:54 AM BAG PATCHER) PSA 0.3 < OR = 4.0 ng/mL [facility] Comment: This test was performed using the Siemens chemiluminescent method. Values obtained from different assay methods cannot be used interchangeably. PSA levels, regardless of value, should not be interpreted as absolute evidence of the presence or absence of disease. Test Performed at: [facility] [address] [place], [place] ??[phone] MINO ZAMAN DO,MPH 07/16/2012 7:54 AM BAG PATCHER Ciro Fernandez DO CHEMISTRY ORDERABLES INTERFACE SYSTEM Refer to clinic/hospital department Webcom [address] [address] documented in this encounter Visit Diagnoses Not on filedocumented in this encounter
--- OUTSIDE RECORDS SUMMARY | 2024-08-19 06:46 | XMS_ITS | Encounter Summary ---
Author Organization [facility] Address [address] [place] [address] Care Team Providers Care Marketing Operations Manager Name Role Phone Unavailable Primary Care Provider Unavailabl e Reason for Visit * Reason Onset Date Comments Results 01/30/2013 xray Encounter Details Date Type Department Care Team (Late st Contact Info) Description 01/30/2013 Telephone [facility] [address] [facility] [address] [place] [address] Ciro Fernandez, DO [address] [facility] [address] [place] [address] Results (xray) Social History Tobacco [...] Encounter - Delma Tobar CMA - 01/30/2013 9:34 AM CDT Spoke with patient about results * Telephone Encounter - Delma Tobar CMA - 01/30/2013 9:33 AM CDT Message copied by DELMA TOBAR on WedJan 30, 2013 9:33 AM ------ Message from: SARAH FERNANDEZ Created: Damari Jan 29, 2013 3:01 PM Xray of your abdomen showed a lot of stool. Continue with recommendations given at appointment. If you are not having regular BM let me know. Call or return to clinic if these symptoms worsen or failto improve as anticipated. ------ documented in this encounter Plan of Treatment Not on file documented as of this encounter Visit Diagnoses Not on filedocumented in this encounter
--- OUTSIDE RECORDS SUMMARY | 2024-08-19 06:46 | XMS_ITS | Encounter Summary ---
Author Organization [facility] Address [address] [place] [address] Care Team Providers Care Floor Specialist Name Role Phone Unavailable Primary Care Provider Unavailabl e Reason for Visit * Reason Onset Date Comments Results 12/26/2012 Other Encounter Details Date Type Department Care Team (Late st Contact Info) Description 12/26/2012 Telephone [facility] Family Medicine - [facility] [address] [facility] [address] [place] [address] Ciro Fernandez, DO [address] [facility] [address] [place] [address] Results; Social History Tobacco Use Types Packs/Day Years [...] * Telephone Encounter - Jennifer Burnett - 12/26/2012 8:39 AM CDT informed/sb * Telephone Encounter - Jennifer Burnett - 12/26/2012 8:39 AM CDT Message copied by JENNIFER BURNETT on WedDecember 26, 2012 8:39 AM ------ Message from: SARAH FERNANDEZ Created: Damari December 25, 2012 7:07 PM Your labs overall look good. You are due for your annual physical and we can discuss further at that point also. ------ * Telephone Encounter - Jennifer Burnett - 12/26/2012 8:36 AM CDT Message copied by JENNIFER BURNETT on WedDecember 26, 2012 8:36 AM ------ Message from: SARAH FERNANDEZ Created: Damari December 25, 2012 7:07 PM Your labs overall look good. You are due for your annual physical and we can discuss further at that point also. ------ documented in this encounter Plan of Treatment Not on file documented as of this encounter Visit Diagnoses Not on filedocumented in this encounter
--- OUTSIDE RECORDS SUMMARY | 2024-08-19 06:46 | XMS_ITS | Encounter Summary ---
Author Organization [facility] Address [address] [place] [address] Care Team Providers Care Electronics Lead Name Role Phone Unavailable Primary Care Provider Unavailabl e Reason for Visit * Reason Onset Date Comments Medication Refill 09/05/2013 Encounter Details Date Type Department Care Team (Late st Contact Info) Description 09/05/2013 Refill [facility] - [facility] [address] [facility] [address] [place] [address] Ciro Fernandez DO [address] [facility] [address] [place] [address] Esophageal reflux (Primary Dx) Social [...] Telephone Encounter - Delma Foster CMA - 09/06/2013 8:50 AM CSTFrom: Brendon Aldana To: Ciro Fernandez DO Sent: 09/05/2013 6:44 PM PILOT SUBMERSIBLE Subject: Medication Renewal Request Original authorizing provider: DO Brendon Tom would like a refill of the following medications: omeprazole (PRILOSEC) 20 mg Capsule, Delayed Release(E.C.) [Ciro Fernandez DO] Preferred pharmacy: [facility] - [address] Comment: [facility] shows no record of having received the new prescription that you sent on . Could you please resend the prescription to [facility] written for 90 days? Thank you, Brendon Aldana T SUBMERSIBLE documented in this encounter Plan of Treatment Not on file documented as of this encounter Visit Diagnoses Diagnosis Esophageal reflux- Primary documented in this encounter
--- OUTSIDE RECORDS SUMMARY | 2024-08-19 06:46 | XMS_ITS | Encounter Summary ---
Author Organization Address [address] [place] [address] Care Team Providers Care Manager Risk Name Role Phone Unavailable Primary Care Provider Unavailabl e Reason for Visit * Reason Onset Date Comments Medication Reaction 05/18/2012 Encounter Details Date Type Department Care Team (Late st Contact Info) Description 05/18/2012 Telephone [facility] Family Medicine - [facility] Abundio Yuan [address] [facility] [address] [place] [address] Ciro Simmons, DO [address] [facility] [address] [place] [address] Medication Reaction Social History Tobacco Use Types Packs/Day Years [...] Telephone Encounter - Kay Jesus N - 05/18/2012 12:[address] Simmons states can feel like he has more energy or flushing of the face. If any swelling of face or throat, sob, rash then needs to stop medication and go to ER. Discussed with patient he states he is not having any of those symptoms. He states he is feeling better and would like to stop steroid. Dr simmons approved. He states if he feels like he needs to restart the medication to let us know first. Patient notified and understands. * Telephone Encounter - Jennifer Burnett - 05/18/2012 10:00 AM CDT PT STARTED THE STEROIDS YESTERDAY AM, AND TODAY AT WORK HE IS LOOKING QUITE RED, NO OTHER SX REALLY, EXCEPT FEELING A LITTLE FUNKY-A LITTLE MORALES , HIS VITALS ARE ALL FINE (BP 118/80 HEART RATE 88) PLEASE ADVISE documented in this encounter Plan of Treatment Not on file documented as of this encounter Visit Diagnoses Not on filedocumented in this encounter
--- OUTSIDE RECORDS SUMMARY | 2024-08-19 06:46 | XMS_ITS | Encounter Summary ---
Author Organization [facility] Address [address] [address] [place] [address] Care Team Providers Care Edge Inker Name Role Phone Unavailable Primary Care Provider Unavailabl e Reason for Visit * Reason Onset Date Comments Medication Refill 06/17/2012 Encounter Details Date Type Department Care Team (Late st Contact Info) Description 06/17/2012 Refill [facility] Medicine - [facility] Abundio Kw[address] [facility] [address] [place] [address] Ciro Fernandez, DO [address] [facility] [address] [place] [address] Cough (Primary Dx) Social History [...]
--- OUTSIDE RECORDS SUMMARY | 2024-08-19 06:46 | XMS_ITS | Encounter Summary ---
Author Organization [facility] Address [address] [place] [address] Care Team Providers Care Shell Molder Name Role Phone Unavailable Primary Care Provider Unavailabl e Reason for Visit * Reason Comments Cough ap,drainage, h/a,b ilateral ear pain x 1wk Encounter Details Date Type Department Care Team (Late st Contact Info) Description 10/17/2012 2:15 PM CDT Office Visit [facility] [address] [facility] [address] [place] [address] Ciro Fernandez, DO [address] [facility] [address] [place] [address] OM (otitis media) (Primary Dx); Allergic rhinitis; Acute sinusitis Social History Tobacco Use Types Packs/Day [...] Reading Time Taken Comments Blood Pressure 110/70 10/17/2012 2:13 PM CDT Pulse 76 10/17/2012 2:13 PM CDT Temperature 36.6 ??C (97.9 ??F) 10/17/2012 2:13 PM CD T Respiratory Rate - - Oxygen Saturation - - Inhaled Oxygen Concentration - - Weight 95.3 kg (210 lb) 10/17/2012 2:13 PM CDT Height 175.3 cm (5' 9 ) 10/17/2012 2:13 PM CDT Body Mass Index 31.01 10/17/2012 2:13 PM CDT documented in this encounter Progress Notes * Ciro Fernandez, DO - 10/17/2012 2:53 PM CDT Subjective: Brendon Aldana 62 y.o. male presents with a 1 week history of cough, sore throat, postnasal discharge, MORALES and EAR pain States previously felt 100% better after last medicines. Tried over the counter antihistamines OTC cough/cold [...] Allergies and Medications. Objective: BP 110/70 Pulse 76 Temp(Src) 97.9 ??F (36.6 ??C) (Temporal) Ht 5' 9 (1.753 m) Wt 210 lb (95.255 kg) BMI 31.01 kg/m2 Gen'l: NAD HEENT: Perrla, eomi. Sinuses tender to palpation over the bilateral maxillary sinuses. Throat erythematous without exudates. red, swollen nasal turbinates. clear and yellow Nasal Discharge. BilateralTM injected. Right TM fluid. Neck: Supple. No lymphadenopathy. No meningeal signs. Negative Brudinski, Negative Kernigs Lungs: Clear to auscultation bilaterally. CV: RRR. No murmur. Skin: No rash noted on examination. A/P: Brendon was seen today for cough. Diagnoses and associated orders for this visit: Om (otitis media) - amoxicillin (AMOXIL) 500 mg Oral Tab; Take 1 Tab by mouth every 8 hours for 10 days. Allergic rhinitis - ciclesonide (ZETONNA) 37 mcg/actuation Both Nostril HFAA; Administer 2 Sprays in each nostril daily. Acute sinusitis - amoxicillin (AMOXIL) 500 mg Oral Tab; Take 1 Tab by mouth every 8 hours for 10 days. OTC Meds as discussed Increase Fluids and Rest Discussed Risks, Benefits and Alternatives of the current treatment regimen. Call or return to clinic prn if these symptoms worsen or fail to improve as anticipated. documented in this encounter Plan of Treatment Not on file documented as of this encounter Visit Diagnoses Diagnosis OM (otitis media)- Primary Unspecified otitis media Allergic rhinitis Allergic rhinitis, cause unspecified Acute sinusitis Acute sinusitis, unspecified documented in this encounter
--- OUTSIDE RECORDS SUMMARY | 2024-08-19 06:46 | XMS_ITS | Encounter Summary ---
Author Organization [facility] Address [address] [place] [address] Care Team Providers Care Cylinder Sander Operator Name Role Phone Unavailable Primary Care Provider Unavailabl e Reason for Visit * Reason Onset Date Comments Results 07/11/2012 Encounter Details Date Type Department Care Team ([facility] st Contact Info) Description 07/11/2012 Telephone [facility] Family Medicine - [facility] [address] [facility] [address] [place] [address] Ciro Fernandez, DO [address] [facility] [address] [place] [address] Results Social History Tobacco Use [...] * Telephone Encounter - Delma Tobar - 07/11/2012 8:54 AM CST Spoke with patient about results has appointment with dye feeder 07/12/2012 PPM CONSULTANT * Telephone Encounter - Delma Tobar - 07/11/2012 8:52 AM CST Message copied by DELMA TOBAR on WedJul 11, 2012 8:52 AM ------ Message from: SARAH FERNANDEZ Created: Sun Jul 10, 2012 7:26 PM Breathing study was normal. Continue with recommendations given at appointment. Call or return to clinic prn if these symptoms worsen or fail to improve as anticipated. PPM CONSULTANT documented in this encounter Plan of Treatment Not on file documented as of this encounter Visit Diagnoses Not on filedocumented in this encounter
--- OUTSIDE RECORDS SUMMARY | 2024-08-19 06:46 | XMS_ITS | Encounter Summary ---
Author Organization [facility] Address [address] [place] [address] Care Team Providers Care Explosives Truck Driver Name Role Phone Unavailable Primary Care Provider Unavailabl e Reason for Visit * Reason Comments Medication Refill Encounter Details Date Type Department Care Team (Late st Contact Info) Description 01/03/2013 Refill [facility] Medicine - [facility] Kw[facility]ena [address] [facility] [address] [place] [address] Ciro Fernandez, DO [address] [facility] [address] [place] [address] Social History Tobacco Use Types [...]
--- OUTSIDE RECORDS SUMMARY | 2024-08-19 06:46 | XMS_ITS | Encounter Summary ---
Author Organization [facility] Address [address] [place] [address] Care Team Providers Care Obstetrical Tech Name Role Phone Unavailable Primary Care Provider Unavailabl e Encounter Details Date Type Department Care Team (Latest Contact Info) Description 01/27/2013 3:13 PM CDT - 01/27/2013 11:59 PM CDT Hospital Encounter [facility] Imaging Services [facility] 107 [facility] [address] [place] [address] Ciro Fernandez, 107 [facility] [address] [place] [address] Discharge Disposition: Home or Self [...] Name Priority Date/Time Associated Diagnosis Comments XR RIBS UNILATERAL LEFT W PA CHEST Routine 01/27/2013 3:33 PM CDT Rib pain documented in this encounter Results * XR RIBS UNILATERAL LEFT W PA CHEST (01/27/2013 3:33 PM CDT) Anatomical Region Laterality Modality Chest Computed Radiogr aphy 01/27/2013 3:18 PM CDT Impressions 01/30/2013 7:42 AM CDT IMPRESSION: ??Negative. Dictated from [facility] Narrative 01/30/2013 7:42 AM CDT LEFT RIBS [...] is identified. IMPRESSION IMPRESSION: Negative. Dictated from [facility] Ciro Fernandez DO DIAGNOSTIC IMAGING O RDERABLES documented in this encounter Visit Diagnoses Diagnosis Rib pain Chest pain, unspecified documented in this encounter
--- OUTSIDE RECORDS SUMMARY | 2024-08-19 06:46 | XMS_ITS | Encounter Summary ---
Author Organization [facility] Address [address] [place] [address] Care Team Providers Care Motion Study Analyst Name Role Phone Unavailable Primary Care Provider Unavailabl e Reason for Visit * Reason Onset Date Comments Medication Refill 01/30/2013 Results 01/30/2013 Encounter Details Date Type Department Care Team (Late st Contact Info) Description 01/30/2013 Telephone [facility] Family Medicine - [facility] [address] [facility] [address] [place] [address] Ciro Fernandez, DO [address] [facility] [address] [place] [address] Medication Refill; Results Social History Tobacco Use Types Packs/Day [...] Telephone Encounter - Delma Foster CMA - 01/30/2013 9:32 AM CDT Spoke with patient he will give some time if it does not improve he will call back. * Telephone Encounter - Jennifer Burnett - 01/30/2013 9:20 AM CDT The flexeril was sent to the mail order , it should have been sent to the [facility], please send itthere. Also he is waiting on xray results Notes Recorded by Ciro Fernandez DO on 01/29/2013 at 3:01 PM Xray of your abdomen showed a lot of stool. Continue with recommendations given at appointment. If you are not having regular BM let me know. Call or return to clinic if these symptoms worsen or failto improve as anticipated. Notes Recorded by Ciro Fernandez DO on 01/30/2013 at 8:05 AM Xray of your ribs were normal. No signs of a fracture. Continue with recommendations given at appointment. Call or return to clinic if these symptoms worsen or fail to improve as anticipated. Pt informed of results. Should the sx heal up on its own? documented in this encounter Plan of Treatment Not on file documented as of this encounter Visit Diagnoses Diagnosis Rib pain- Primary Chest pain, unspecified documented in this encounter
--- OUTSIDE RECORDS SUMMARY | 2024-08-19 06:46 | XMS_ITS | Encounter Summary ---
Author Organization [facility] Address [address] [place] [address] Care Team Providers Care Otr Company Driver Name Role Phone Unavailable Primary Care Provider Unavailabl e Reason for Visit * Reason Onset Date Comments Results 06/10/2012 Encounter Details Date Type Department Care Team (Late st Contact Info) Description 06/10/2012 Telephone [facility] Family Medicine - [facility] 150 [address] [facility] [address] [place] [address] Ciro Fernandez, DO [address] [facility] [address] [place] [address] Results Social History Tobacco Use [...] * Telephone Encounter - Jennifer Burnett - 06/10/2012 10:05 AM CDT PT INFORMED/SB * Telephone Encounter - Jennifer Burnett - 06/10/2012 9:50 AM CDT Message copied by JENNIFER BURNETT on WedJun 10, 2012 9:50 AM ------ Message from: SARAH FERNANDEZ Created: WedJun 10, 2012 8:18 AM cxr was overall normal. Continue with recommendations given at appointment. Call or return to clinic prn if these symptoms worsen or fail to improve as anticipated. documented in this encounter Plan of Treatment Not on file documented as of this encounter Visit Diagnoses Not on filedocumented in this encounter
--- OUTSIDE RECORDS SUMMARY | 2024-08-19 06:46 | XMS_ITS | Encounter Summary ---
Author Organization [facility] Address [address] [place] [address] Care Team Providers Care Binding Cementer French Cord Name Role Phone Unavailable Primary Care Provider Unavailabl e Reason for Visit * Reason Onset Date Comments Other 04/21/2013 Encounter Details Date Type Department Care Team (Late st Contact Info) Description 04/21/2013 Telephone [facility] Family Medicine - [facility] [address] [facility] [address] [place] [address] Ciro Fernandez, DO [address] [facility] [address] [place] [address] Other Social History Tobacco Use [...] Telephone Encounter - Delma Foster CMA - 04/21/2013 8:40 AM CDT Spoke with patient Dr Fernandez said to continue with the both medications * Telephone Encounter - Jessica Burnett - 04/21/2013 8:19 AM CDT Patient is out of town in [place] and went to an urgent care they gave him abx and cough medicine (promethazine dm) For sinus infection, but he read on the bottle of cough medication that he cannot take that with his zyrtec d, can you call in another cough medication for him that he can take with his zyrtec? Pharmacy is in [place] phone number is [phone] documented in this encounter Plan of Treatment Not on file documented as of this encounter Visit Diagnoses Not on filedocumented in this encounter
--- OUTSIDE RECORDS SUMMARY | 2024-08-19 06:46 | XMS_ITS | Encounter Summary ---
Author Organization [facility] Address [address] [place] [address] Care Team Providers Care Inspector Machine Cut Glass Name Role Phone Unavailable Primary Care Provider Unavailabl e Reason for Visit * Reason Comments Medication Refill Encounter Details Date Type Department Care Team (Late st Contact Info) Description 09/05/2013 Refill [facility] Medicine - [facility] [address] [facility] [address] [place] [address] Ciro Fernandez, DO [address] [facility] [address] [place] [address] Social History Tobacco Use [...]
--- OUTSIDE RECORDS SUMMARY | 2024-08-19 06:46 | XMS_ITS | Encounter Summary ---
Author Organization [facility] Address [address] [place] [address] Care Team Providers Care Blending Machine Operator Name Role Phone Unavailable Primary Care Provider Unavailabl e Reason for Visit * Reason Comments Nasal Congestion sore throat , 1 week Encounter Details Date Type Department Care Team (Late st Contact Info) Description 05/05/2012 3:45 PM CDT Office Visit [facility] Medicine - [facility] 150 [address] [facility] [address] [place] [address] Ciro Fernandez, DO [address] [facility] [address] [place] [address] Acute sinusitis (Primary Dx) Social [...] Sign Reading Time Taken Comments Blood Pressure 128/72 05/05/2012 3:41 PM CDT Pulse 64 05/05/2012 3:41 PM CDT Temperature 36.6 ??C (97.8 ??F) 05/05/2012 3:41 PM CD T Respiratory Rate - - Oxygen Saturation - - Inhaled Oxygen Concentration - - Weight 96.6 kg (213 lb) 05/05/2012 3:41 PM CDT Height 177.8 cm (5' 10 ) 05/05/2012 3:41 PM CDT Body Mass Index 30.56 05/05/2012 3:41 PM CDT documented in this encounter Progress Notes * Ciro Fernandez, - 05/05/2012 4:13 PM CDT Subjective: Brendon Aldana 62 y.o. [...] well as Allergies and Medications. Objective: BP 128/72 Pulse 64 Temp(Src) 97.8 ??F (36.6 ??C) (Temporal) Ht 5' 10 (1.778 m) Wt 213 lb (96.616 kg) BMI 30.56 kg/m2 Gen'l: NAD HEENT: Perrla, eomi. Sinuses [...] orders for this visit: Acute sinusitis - azithromycin (ZITHROMAX) 250 mg Oral tablet; Take 2 tabs the first day and 1 tab days 2-5 OTC Meds as discussed Increase Fluids and [...]
--- OUTSIDE RECORDS SUMMARY | 2024-08-19 06:46 | XMS_ITS | Encounter Summary ---
Author Organization [facility] Address [address] [place] [address] Care Team Providers Care Research Manufacturing Operator Name Role Phone Unavailable Primary Care Provider Unavailabl e Encounter Details Date Type Department Care Team (Latest Contact Info) Description 06/08/2012 12:00 PM CDT - 06/08/2012 11:59 PM CDT Hospital Encounter [facility] Imaging Services [facility] 107 [facility] 100 [place] [address] Ciro Fernandez, 107 [facility] [address] [place] [address] Discharge Disposition: Home or Self [...] Sig Dispensed Refills Start Date End Date benzonatate (TESSALON) 200 mg Oral capsuleIndications:Cough Take 1 Cap by mouth 3 times daily as needed for Cough. 30 Cap 0 06/08/2012 06/17/2012 Cetirizine (ZYRTEC) 10 mg Oral Cap Take 5 mg by mouth daily. 07/12/2012 ibuprofen (MOTRIN) 800 mg Oral tablet Take 1 Tab by mouth every 6 hours as needed for Pain. 60 Tab 3 05/16/2012 12/07/2012 Codeine-GuaiFENesin (ROBITUSSIN-AC) 10-100 mg/5 mL Oral solutionIndications:Cough Take 10 mL by mouth every 6 hours as needed for Cough. 150 mL 0 05/16/2012 06/17/2012 cetirizine-pseudoephedrin e sr 12 hour (ZYRTEC-D) 5-120 mg Oral tabletIndications:Acute sinusitis Take 1 Tab by mouth 2 times daily. 60 Tab 3 05/16/2012 06/14/2012 pseudoephedrine (SUDOGEST) 30 mg Oral tablet Take [...] 12/21/2011 01/03/2013 omeprazole (PRILOSEC) 20 mg Oral CpDRIndications:Esophagea l reflux Take 1 Cap by mouth daily. 90 Cap 3 07/14/2011 08/24/2012 documented as of this encounter Plan of Treatment Not on file documented as of this encounter Procedures Procedure Name Priority Date/Time Associated Diagnosis Comments XR CHEST PA AND LATERAL 2 VW Routine 06/08/2012 12:08 PM CDT Cough documented in this encounter Results * XR CHEST PA AND LATERAL (06/08/2012 12:08 PM CDT) Anatomical Region Laterality Modality Chest Computed Radiogr aphy 06/08/2012 12:0 3 PM CDT Impressions 06/10/2012 7:54 AM CDT IMPRESSION: No active pulmonary disease. Narrative 06/10/2012 7:54 AM CDT CHEST PA AND LATERAL, 06/08/2012 CLINICAL HISTORY: Cough for 5 weeks. FINDINGS: Since a prior exam dated 12/05/2009 there has been no change and there is no infiltrate, pleural effusion or pneumothorax. Pulmonary vascularity is normal. The cardiac and mediastinal silhouettes and kym are within normal limits. There is endplate spurring in the spine. Procedure Note Mari Paez MD - 06/10/2012 CHEST PA AND LATERAL, 06/08/2012 CLINICAL HISTORY: Cough for 5 weeks. FINDINGS: Since a prior exam dated 12/05/2009 there has been no change and there is no infiltrate, pleural effusion or pneumothorax. Pulmonary vascularity is normal. The cardiac and mediastinal silhouettes and kym are within normal limits. There is endplate spurring in the spine. IMPRESSION IMPRESSION: No active pulmonary disease. Ciro Fernandez DO DIAGNOSTIC IMAGING O RDERABLES documented in this encounter Visit Diagnoses Diagnosis Cough documented in this encounter
--- OUTSIDE RECORDS SUMMARY | 2024-08-19 06:46 | XMS_ITS | Encounter Summary ---
Author Organization [facility] Address [address] [place] [address] Care Team Providers Care Oil Plant Operator Name Role Phone Unavailable Primary Care Provider Unavailabl e Reason for Visit * Reason Onset Date Comments Medication Refill 08/23/2013 Encounter Details Date Type Department Care Team (Late st Contact Info) Description 08/23/2013 Refill [facility] Family Medicine - [facility] 150 107 [facility] [address] [place] [address] Ciro Fernandez DO [address] [facility] [address] [place] [address] Esophageal reflux (Primary Dx) Social [...] Encounter - Delma Foster CMA - 08/23/2013 8:59 AM CST Spoke with patient he is due for labs he will have done. MANAGER * Telephone Encounter - Delma Foster CMA - 08/23/2013 8:57 AM CSTFrom: Brendon Aldana To: Ciro Fernandez DO Sent: 08/23/2013 7:47 AM CAFE MANAGER Subject: Medication Renewal Request Original authorizing provider: DO Brendon Tom would like a refill of the following medications: omeprazole (PRILOSEC) 20 mg Oral CpDR [Ciro Fernandez DO] Preferred pharmacy: Other - [facility] - [address] Comment: This rx needs to be written as a 90 day rx and sent to [facility]. Thanks you. MANAGER documented in this encounter Plan of Treatment Not on file documented as of this encounter Visit Diagnoses Diagnosis Esophageal reflux- Primary documented in this encounter
--- OUTSIDE RECORDS SUMMARY | 2024-08-19 06:46 | XMS_ITS | Encounter Summary ---
Author Organization [facility] Address [address] [place] [address] Care Team Providers Care Crabbing Machine Operator Name Role Phone Unavailable Primary Care Provider Unavailabl e Reason for Visit * Reason Onset Date Comments Erroneous encounter-disregard 08/25/2013 Encounter Details Date Type Department Care Team (Late st Contact Info) Description 08/25/2013 Refill [facility] Family Medicine - [facility] [address] 107 [facility] [address] [place] [address] Ciro Fernandez, DO [address] [facility] [address] [place] [address] Social History Tobacco Use Types [...]
--- OUTSIDE RECORDS SUMMARY | 2024-08-19 06:46 | XMS_ITS | Encounter Summary ---
Author Organization [facility] Address [address] [place] [address] Care Team Providers Care Osteopathy Doctor Name Role Phone Unavailable Primary Care Provider Unavailabl e Reason for Visit * Reason Onset Date Comments Cough 06/08/2012 Encounter Details Date Type Department Care Team (Late st Contact Info) Description 06/08/2012 Telephone [facility] Family Medicine - [facility] [address] [facility] [address] [place] [address] Ciro Fernandez, DO [address] [facility] [address] [place] [address] Cough Social History Tobacco Use [...] Notes * Telephone Encounter - Delma Foster - 06/08/2012 9:[address] Fernandez wants to have chest xray done then he will have recommendations. Spoke with patient. 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 documented in this encounter Plan of Treatment [...] this encounter Visit Diagnoses Diagnosis Cough- Primary Cough documented in this encounter
--- OUTSIDE RECORDS SUMMARY | 2024-08-19 06:46 | XMS_ITS | Encounter Summary ---
Author Organization [facility] Address [address] [place] [address] Care Team Providers Care Automation And Control Engineer Name Role Phone Unavailable Primary Care Provider Unavailabl e Reason for Visit * Reason Onset Date Comments Medication Refill 06/16/2013 Encounter Details Date Type Department Care Team (Late st Contact Info) Description 06/16/2013 Refill [facility] Family Medicine - [facility] 150 107 [facility] [address] [place] [address] Ciro Fernandez DO [address] [facility] [address] [place] [address] Social History Tobacco Use Types [...] Telephone Encounter - Delma Foster CMA - 06/16/2013 8:28 AM CSTFrom: Brendon Aldana To: Ciro Fernandez DO Sent: 06/16/2013 6:14 AM FUNERAL WORKERS Subject: Medication Renewal Request Original authorizing provider: DO Brendon Tom would like a refill of the following medications: ibuprofen (MOTRIN) 800 mg Oral tablet [Ciro Fernandez DO] Preferred pharmacy: [facility] - [address] Comment: RAL WORKERS documented in this encounter Plan of Treatment Not on file documented as of this encounter Visit Diagnoses Not on filedocumented in this encounter
--- OUTSIDE RECORDS SUMMARY | 2024-08-19 06:46 | XMS_ITS | Encounter Summary ---
Author Organization [facility] Address [address] [place] [address] Care Team Providers Care Fruit Stuffer Name Role Phone Unavailable Primary Care Provider Unavailabl e Reason for Visit * Reason Comments Cough congestion, sinus pr essure x 3wk Encounter Details Date Type Department Care Team (Late st Contact Info) Description 05/16/2012 1:00 PM CDT Office Visit [facility] Medicine - [facility] 150 [address] [facility] [address] [place] [address] Ciro Fernandez, DO 107 [facility] [address] [place] [address] Cough; Acute sinusitis Social History Tobacco Use Types [...] Sign Reading Time Taken Comments Blood Pressure 120/70 05/16/2012 12:59 PM CDT Pulse 68 05/16/2012 12:59 PM CDT Temperature 36.6 ??C (97.8 ??F) 05/16/2012 12:59 PM C DT Respiratory Rate - - Oxygen Saturation - - Inhaled Oxygen Concentration - - Weight 97.5 kg (215 lb) 05/16/2012 12:59 PM CDT Height 177.8 cm (5' 10 ) 05/16/2012 12:59 PM CDT Body Mass Index 30.85 05/16/2012 12:59 PM CDT documented in this encounter Progress Notes * Ciro Fernandez, DO - 05/16/2012 1:10 PM CDT Subjective: Brendon Aldana 62 y.o. male presents with a 3 week history of cough, sore throat, postnasal discharge, MORALES. Tried over the counter antihistamines OTC cough/cold product of patient's choice PRN and fluids andrest with no improvement. Was on a zpak with only a little improvement Patient denies chest pain or SOB. No [...] well as Allergies and Medications. Objective: BP 120/70 Pulse 68 Temp(Src) 97.8 ??F (36.6 ??C) (Temporal) Ht 5' 10 (1.778 m) Wt 215 lb (97.523 kg) BMI 30.85 kg/m2 Gen'l: NAD HEENT: Perrla, eomi. Sinuses nontender [...] times daily as needed for Cough. - Codeine-GuaiFENesin (ROBITUSSIN-AC) 10-100 mg/5 mL Oral solution; Take 10 mL by mouth every 6 hours as needed for Cough. Acute sinusitis - cetirizine-pseudoephedrine sr 12 hour (ZYRTEC-D) 5-120 mg Oral tablet; Take 1 Tab by mouth 2 times daily. - methylPREDNISolone (MEDROL DOSPACK) 4 mg Oral DsPk; Medrol DosPack Other Orders - Cetirizine (ZYRTEC) 10 mg Oral Cap; Take 5 mg by mouth daily. - ibuprofen (MOTRIN) 800 mg Oral tablet; Take 1 Tab by mouth every 6 hours as needed for Pain. Rare use - not to take during steroids. OTC Meds as discussed Increase Fluids and Rest Discussed Risks, Benefits and Alternatives of the current treatment regimen. Call or return to clinic prn if these symptoms worsen or fail to improve as anticipated. documented in this encounter Plan of Treatment Not on file documented as of this encounter Visit Diagnoses Diagnosis Cough Acute sinusitis Acute sinusitis, unspecified documented in this encounter
--- OUTSIDE RECORDS SUMMARY | 2024-08-19 06:46 | XMS_ITS | Encounter Summary ---
Author Organization [facility] Address [address] [place] [address] Care Team Providers Care Headlight Adjuster Name Role Phone Unavailable Primary Care Provider Unavailabl e Reason for Visit * Reason Comments Medication Refill Encounter Details Date Type Department Care Team (Late st Contact Info) Description 09/07/2013 Refill [facility] Medicine - [facility] 150 107 [facility] [address] [place] [address] Ciro Fernandez, DO [address] [facility] [address] [place] [address] Social History Tobacco Use Types [...] Telephone Encounter - Delma Foster CMA - 09/07/2013 7:50 AM CST Script approved patient is due for labs. Patient is having done in Sep. STRIAL REAL ESTATE AGENT documented in this encounter Plan of Treatment Not on file documented as of this encounter Visit Diagnoses Not on filedocumented in this encounter
--- OUTSIDE RECORDS SUMMARY | 2024-08-19 06:46 | XMS_ITS | Encounter Summary ---
Author Organization [facility] Address [address] [place] [address] Care Team Providers Care Heel Seat Laster Name Role Phone Unavailable Primary Care Provider Unavailabl e Reason for Visit * Reason Onset Date Comments Medication Refill 12/07/2012 Encounter Details Date Type Department Care Team (Late st Contact Info) Description 12/07/2012 Refill [facility] Medicine - [facility] [address] [place] [address] Ciro Fernandez, DO 107 [facility] [address] [place] [address] Social History Tobacco Use Types [...]
--- OUTSIDE RECORDS SUMMARY | 2024-08-19 06:46 | XMS_ITS | Encounter Summary ---
Author Organization [facility] Address [address] [place] [address] Care Team Providers Care Casino Attendant Name Role Phone Unavailable Primary Care Provider Unavailabl e Reason for Visit * Reason Onset Date Comments Medication Problem 08/24/2012 Encounter Details Date Type Department Care Team (Late st Contact Info) Description 08/24/2012 Telephone [facility] Family Medicine - [facility] [address]und[address] [facility] [address] [place] [address] Ciro Fernandez, DO [address] [facility] [address] [place] [address] Medication Problem Social History Tobacco [...] * Telephone Encounter - Delma Foster - 08/24/2012 12:01 PM CST Spoke with patient [facility] ATTENDANT * Telephone Encounter - Jennifer Burnett - 08/24/2012 11:54 AM CST PT CALLED, HE NEEDS THE ZYRTEC D TO GO TO [facility] IN [place] [facility], CAN WE SEND IT THERE? ATTENDANT documented in this encounter Plan of Treatment Not on file documented as of this encounter Visit Diagnoses Not on filedocumented in this encounter
--- OUTSIDE RECORDS SUMMARY | 2024-08-19 06:46 | XMS_ITS | Encounter Summary ---
Author Organization [facility] [address] [place] [address] Care Team Providers Care Electrolysis Engineer Name Role Phone Unavailable Primary Care Provider Unavailabl e Reason for Referral * Outpatient Services (Routine) - Closed Specialty Diagnoses / Procedures Referred By Contac t Referred To Contact Pulmonology Diagnoses RENAE (dyspnea on exertion) Procedures BRONCHIAL CHALLENGE WITH METHACHOLINE Chidi Charles MD [address] [facility] [address] [place] [address] Referral ID Status Reason Start Date Expiration Date Visits Re quested Visits Authorized [id number] Closed 07/12/2012 07/12/2013 1 1 ORATE SECRETARY Reason for Visit * Reason Comments Cough Shortness of Breath * Eval and Treat (Routine) - Closed Specialty Diagnoses / Procedures Referred By Contac t Referred To Contact Pulmonology Diagnoses Chronic cough Ciro Fernandez, DO [address] [facility] [address] [place] [address] [facility] [address] [place] [address] Referral ID Status Reason Start Date Expiration Date V isits Requested Visits Authorized [id number] Closed CRS To Schedule (STL) 06/21/2012 06/21/2013 1 1 Encounter Details Date Type Department Care Team (Late st Contact Info) Description 07/12/2012 3:30 PM CORPORATE SECRETARY Office Visit [facility] Pulmonology [facility] [address] [place] [phone] Chidi Charles MD [address] [place] [address] Cough (Primary Dx); RENAE (dyspnea on exertion); Allergic rhinitis, cause unspecified Social History Tobacco Use Types Packs/Day Years [...] Sign Reading Time Taken Comments Blood Pressure 118/78 07/12/2012 2:46 PM CORPORATE SECRETARY Pulse 76 07/12/2012 2:46 PM CORPORATE SECRETARY Temperature - - Respiratory Rate 16 07/12/2012 2:46 PM CORPORATE SECRETARY Oxygen Saturation 95% 07/12/2012 2:46 PM CORPORATE SECRETARY RA Inhaled Oxygen Concentration - - Weight 97.5 kg (215 lb) 07/12/2012 2:46 PM CORPORATE SECRETARY Height 180.3 cm (5' 11 ) 07/12/2012 2:46 PM CORPORATE SECRETARY Body Mass Index 29.99 07/12/2012 2:46 PM CORPORATE SECRETARY documented in this encounter Progress Notes * Chidi Charles MD - 07/12/2012 2:59 PM CST Pulmonary Initial Outpatient Evaluation 07/12/2012 3:00 PM Patient Name: Brendon Aldana 1950 Primary Care Physician: Ciro Fernandez DO Date of Service: 07/12/2012 Chief Complaint Patient presents with ??? Cough ??? Shortness of Breath Impression: Paroxysmal cough with dyspnea, the etiology of which would include A) reactive airways disease B) postnasal drip secondary to chronic allergic rhinosinusitis C) vocal cord dysfunction syndrome D) Laryngo-esophageal reflux disease Recommendations: 1. Obtain a methacholine challenge test to establish the presence of underlying airway hyperresponsiveness. Until then, have initiated a trial using an albuterol inhaler and have asked him to monitorany symptomatic relief using the same. 2. Initiate Nasonex nasal spray to address an underlying chronic rhinosinusitis. 3. In the event of there being no evidence of airway hyperresponsiveness and no symptomatic relief using a rescue bronchodilator, consideration can be given to obtaining ENT consultation for further evaluation of the upper airway, especially the vocal cords. HPI: Patient is a 62 y.o. male who is seen in consultation for evaluation of a persistent cough. Notably, Mr. Aldana experienced a severe upper respiratory tract infection in April 2012 following which he has never completely recovered. At that time, he had symptomatology suggestive of a sinus infection that resolved with an outpatient course of azithromycin. However, since then, he has noticed the intermittent appearance of a paroxysmal cough, but is noticeably worsened with speech and relieved with cessation of speech. He is not able to relate any clear precipitating factor such as cold air, exercise, environmental exposure, or geographic location. He was tried on outpatient regimen using an Advair Diskus and Medrol Dosepak but was unable to complete the same secondary to cutaneous flushing. He denies any concomitant wheeze, chest pain, palpitations or chills but does admit to periodic dyspnea on exertion. 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 He denies any environmental allergies or household exposure to mold. Currently, he continues to have a paroxysmal dry cough and hoarseness that mainly worsen with continuous speech. Past Medical History Diagnosis Date ??? Community acquired pneumonia ??? Essential hypertension ??? Contact dermatitis and other eczema, due to unspecified cause Past Surgical History Procedure Date ??? 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 Hx heart catheterization 1992 ??? Hx vasectomy 1980 Family History Problem Relation Age of Onset [...] Mesothelioma Neg Hx ??? Tuberculosis Neg Hx History Social History ??? Marital Status: Spouse Name: N/A Number of Children: N/A ??? Years of Education: N/A Occupational History ??? Not on file. Social History Main Topics ??? Smoking status: Never Smoker ??? Smokeless tobacco: Never Used ??? Alcohol Use: No ??? Drug Use: ??? Sexually Active: Other Topics Concern ??? Not on file Social History Narrative ??? No narrative on file Current Medications: Current Outpatient Prescriptions Medication Sig [...] Cap by mouth daily. 90 Cap 3 Medication Allergies: Allergies Allergen Reactions ??? Bactrim (Sulfamethoxazole-Trimethoprim) Rash ??? Medrol (Methylprednisolone) Rash and Other (See Comments) redness Review of Systems: General ROS: negative for weight changes, fever Dermatological ROS: negative for skin rashes or unusual skin lesions ENT ROS: positive for - nasal congestion, sneezing and sore throat Respiratory ROS: positive for - cough DRY, dyspnea on exertion and shortness of breath, and HOARSENESS Cardiovascular ROS: negative for chest pain or [...] or abnormal bleeding Allergy and Immunology ROS: negative for itchy eyes, nasal congestion, sneezing, lymphadenopathy Sleep; POSITIVE snoring, NEGATIVE apneas, NEGATIVE daytime sleepiness , NEGATIVE abnormal limb movements, NEGATIVE insomnia PHYSICAL EXAMINATION BP 118/78 Pulse 76 Resp 16 Ht 5' 11 (1.803 m) Wt 215 lb (97.523 kg) BMI 29.99 kg/m2 SpO2 95% General: Alert and stable, appears in no acute distress. HEENT: Normocephalic and atraumatic. REA, nasal mucosa is erythematous without exudate. Oropharynxis normal with a Mallampatti Class 3 anatomy. Neck: Supple, trachea midline, no adenopathy, thyroid [...] Cervical, supraclavicular nodes normal. Neurologic: Non focal. IMAGING: Results for orders placed during the hospital encounter of 06/08/12 XR CHEST PA AND LATERAL Narrative: CHEST PA AND LATERAL, 06/08/2012 CLINICAL HISTORY: Cough for 5 weeks. FINDINGS: Since a prior exam dated 12/05/2009 there has been no change and there is no infiltrate, pleural effusion or pneumothorax. Pulmonary vascularity is normal. The cardiac and mediastinal silhouettes and kym are within normal limits. There is endplate spurring in the spine. Impression: IMPRESSION: No active pulmonary disease. No results found for this or any previous visit. PFT Problem List Patient Active Problem List Diagnoses Date Noted ??? Actinic keratosis 12/23/2011 ??? AK (actinic keratosis) 05/26/2010 ??? Allergic Rhinitis 11/11/2009 ??? Osteoarthritis 01/02/2009 ??? Esophageal Reflux ??? Essential Hypertension, Benign ??? Pure Hypercholesterolemia ??? Allergic Rhinitis, Cause Unspecified Please do not hesitate to contact me with any clarifications or questions. Chidi Charles MD Pulmonary, Critical Care, Neurocritical Care & Sleep Medicine [facility], [place] [address] Off: [phone] Pager: [phone] ORATE SECRETARY documented in this encounter Plan of Treatment Not on file documented as of this encounter Results * BRONCHIAL CHALLENGE WITH METHACHOLINE (07/21/2012 7:05 AM CORPORATE SECRETARY) Narrative Transcriptions Chidi Charles MD - 07/21/2012 12:15 AM CST [place], [place] [address] Pulmonary Function Test CSN: [id number] DATE OF SERVICE: 07/20/2012 METHACHOLINE CHALLENGE TEST. DATE OF TEST 07/20/2012. INTERPRETATION Methacholine challenge testing was performed using sequential spirometrywith serial dilutions of methacholine. There was no evidence of a significant decline in the FEV-1, correspondingto a PD20 FEV-1 of greater than 32 mg/mL. IMPRESSION Negative methacholine challenge test with no demonstrable airwayhyperresponsiveness. DED:MEDQ DID:[id number] Dictated by: Chidi Charles M.D. Chidi Charles MD PFT ORDERABLES EXTERNAL LAB documented in this encounter Visit Diagnoses Diagnosis Cough- Primary RENAE (dyspnea on exertion) Other dyspnea and respiratory abnormality Allergic rhinitis, cause unspecified RENAE (dyspnea on exertion) Other dyspnea and respiratory abnormality documented in this encounter
--- OUTSIDE RECORDS SUMMARY | 2024-08-19 06:46 | XMS_ITS | Encounter Summary ---
Author Organization [facility] Address [address] [place] [address] Care Team Providers Care Pad Assembler Name Role Phone Unavailable Primary Care Provider Unavailabl e Reason for Referral * Outpatient Services (Routine) - Closed Specialty Diagnoses / Procedures Referred By Contjeanie t Referred To Contact Pulmonology Diagnoses Chronic cough Procedures PULMONARY FUNCTION TEST Ciro Fernandez DO [address] [facility] [address] [place] [address] Referral ID Status Reason Start Date Expiration Date Visits Re quested Visits Authorized [id number] Closed 06/23/2012 06/23/2013 1 1 EY VALET Reason for Visit * Reason Onset Date Comments Needs Orders Written 06/22/2012 Encounter Details Date Type Department Care Team (Late st Contact Info) Description 06/22/2012 Telephone [facility] Family Medicine - [facility] [address] [facility] [address] [place] [address] Ciro Fernandez DO [address] [facility] [address] [place] [address] Needs Orders Written Social History [...] * Telephone Encounter - Kay Jesus - 06/23/2012 10:02 AM CST New order submitted. EY VALET * Telephone Encounter - Jennifer Burnett [place] - 06/22/2012 3:30 PM CST [facility] [id number] THE ORDER FOR THE PFT 13, WAS PUT IN A NORMAL ORDER AND ITNEEDS TO BE REMOVED AND PUT IN A FUTURE ORDER , THE ICD9 CODE 786.2 WONT ALLOW A FULL PFT ONLY PART OF IT, IF DR CAN CHANGE ACCORDINGLY EY VALET documented in this encounter Plan of Treatment Not on file documented as of this encounter Results * PULMONARY FUNCTION TEST (07/10/2012 11:13 AM JOCKEY VALET) Narrative Transcriptions Aguila Fabian MD - 07/09/2012 4:57 PM CST [place], [place] [address] Pulmonary Function Test CSN: [id number] DATE OF SERVICE: REASON Chronic cough. This is a technically adequate study. The FVC is mildly reduced. TheFEV1 and FEV1% are normal. TLC is at the lower limits of normal. IMPRESSION There is no obstructive or restrictive ventilatory defect. Diffusingcapacity is within normal limits. SP:MEDQ DID:[id number] Dictated by: Aguila Fabian MD cc: Ciro Fernandez D.O. Ciro Fernandez DO PFT ORDERABLES EXTERNAL LAB documented in this encounter Visit Diagnoses Diagnosis Chronic cough- Primary Cough Chronic cough Cough documented in this encounter
--- OUTSIDE RECORDS SUMMARY | 2024-08-19 06:46 | XMS_ITS | Encounter Summary ---
Author Organization [facility] Address [address] [place] [address] Care Team Providers Care Patient Financial Coordinator Name Role Phone Unavailable Primary Care Provider Unavailabl e Reason for Visit * Reason Onset Date Comments Medication Problem 03/22/2012 Encounter Details Date Type Department Care Team (Late st Contact Info) Description 03/22/2012 Telephone [facility] Family Medicine - [facility] [address] [facility] [address] [place] [address] Ciro Fernandez, DO [address] [place] [address] Medication Problem Social History Tobacco [...] * Telephone Encounter - Jennifer Burnett - 03/22/2012 9:28 AM CDT PT LIVES IN [place], CAN HE PLEASE HAVE THE SCRIPT CALLED OUT? WE HAVE BEFORE documented in this encounter Plan of Treatment Not on file documented as of this encounter Visit Diagnoses Not on filedocumented in this encounter
--- OUTSIDE RECORDS SUMMARY | 2024-08-19 06:46 | XMS_ITS | Encounter Summary ---
Author Organization [facility] Address [address] [place] [address] Care Team Providers Care Electrical Systems Engineer Name Role Phone Unavailable Primary Care Provider Unavailabl e Reason for Visit * Reason Comments Physical follow up labs Encounter Details Date Type Department Care Team (Latest Contact Info) Description 01/13/2013 11:00 AM CDT Office Visit [facility] Medicine - [facility] [address] [facility] [address] [place] [address] Ciro Fernandez, DO [address] [facility] [address] [place] [address] Well adult exam (Primary Dx); Screen for colon cancer; Screening for prostate cancer; Essential hypertension, benign; Pure hypercholesterolemia Social History Tobacco Use Types [...] Sign Reading Time Taken Comments Blood Pressure 102/72 01/13/2013 10:56 AM CDT Pulse 72 01/13/2013 10:56 AM CDT Temperature 36.4 ??C (97.5 ??F) 01/13/2013 10:56 AM C DT Respiratory Rate - - Oxygen Saturation - - Inhaled Oxygen Concentration - - Weight 93.4 kg (206 lb) 01/13/2013 10:56 AM CDT Height 175.3 cm (5' 9 ) 01/13/2013 10:56 AM CDT Body Mass Index 30.42 01/13/2013 10:56 AM CDT documented in this encounter Progress Notes * Ciro Fernandez, DO - 01/13/2013 11:52 AM CDT Subjective: Brendon Aldana is a 62 y.o. male. Pt is here for a [...] Except for as listed above. Exam/Objective: BP 102/72 Pulse 72 Temp(Src) 97.5 ??F (36.4 ??C) (Temporal) Ht 5' 9 (1.753 m) Wt 206 lb (93.441 kg) BMI 30.41 kg/m2 Appearance: alert, well appearing, and in [...] POC OCCULT BLOOD UP TO 3 CARDS - PSA; Future Screen for colon cancer - POC OCCULT BLOOD UP TO 3 CARDS Screening for prostate cancer - PSA; Future Essential hypertension, benign - LIPID PANEL; Future - COMPREHENSIVE METABOLIC PANEL; Future Continue BP medicine Pure hypercholesterolemia - LIPID PANEL; Future - COMPREHENSIVE METABOLIC PANEL; Future Continue with statin. Healthy Male Appropriate patient instructions provided. Follow-up [...] Name Priority Date/Time Associated Diagnosis Comments POC OCCULT BLOOD UP TO 3 CARDS Routine 01/13/2013 11:26 AM CDT Well adult exam Screen for colon cancer documented in this encounter Results * (ABNORMAL) POC OCCULT BLOOD UP TO 3 CARDS (01/13/2013 11:26 AM CDT) OCCULT BLOOD #1 Positive(A ) Negative [facility] OCCULT BLOOD #2 Negative [facility] OCCULT BLOOD #3 Negative [facility] Stool specimen (specimen) 01/13/2013 11:26 AM CDT Ciro Fernandez DO POINT OF CARE TESTKENDAL G [facility] documented in this encounter Visit Diagnoses Diagnosis Well adult exam- Primary Routine general medical examination at a health care facility Screen for colon cancer Special screening for malignant neoplasms, colon Screening for prostate cancer Special screening for malignant neoplasm of prostate Essential hypertension, benign Pure hypercholesterolemia documented in this encounter
--- OUTSIDE RECORDS SUMMARY | 2024-08-19 06:46 | XMS_ITS | Encounter Summary ---
Author Organization [facility] Address [address] [place] [address] Care Team Providers Care Customer Sales Consultant Name Role Phone Unavailable Primary Care Provider Unavailabl e Reason for Visit * Reason Onset Date Comments Medication Refill 08/23/2012 Encounter Details Date Type Department Care Team (Late st Contact Info) Description 08/23/2012 Refill [facility] Medicine - [facility] Abund[address] Kw[address]ena [address] [facility] [address] [place] [address] iCro Fernandez, DO [address] [facility] [address] [place] [address] Allergic rhinitis (Primary Dx) Social [...]
--- OUTSIDE RECORDS SUMMARY | 2024-08-19 06:46 | XMS_ITS | Encounter Summary ---
Author Organization [facility] Address [address] [facility] Attn: [place] [address] Care Team Providers Care Propeller Inspector Name Role Phone Unavailable Primary Care Provider Unavailabl e Encounter Details Date Type Department Care Team (Late st Contact Info) Description 12/24/2012 Office Visit Initial Department [address] [facility] ATTN: [place] [address] Provider, Historical Social History Tobacco Use Types [...] Diagnosis Comments PROTEIN , RANDOM URINE Routine 3 7:27 AM CDT LIPID PANEL Routine 12/24/2012 7:27 AM CDT COMPREHENSIVE METABOLIC PANEL Routine 12/24/2012 7:27 AM CDT documented in this encounter Results * PROTEIN , RANDOM URINE (12/24/2012 7:27 AM CDT) Creatinine, Urine 188 20 - 370 mg/dL [facility] PROTEIN TOTAL, URINE 53 22 - 128 mg/g creat [facility] PROTEIN TOTAL, URINE 10 5 - 25 mg/dL [facility] Comment: Test Performed at: [facility] [address] ??[address] MINO ZAMAN DO,MPH 12/24/2012 7:27 AM CDT Ciro Fernandez DO URINE ORDERABLES INTERFACE SYSTEM Refer to clinic/hospital department [facility] [address] [place] [address] * COMPREHENSIVE METABOLIC PANEL (12/24/2012 7:27 AM CDT) GLUCOSE 98 65 - 99 mg/dL [facility] Comment:Fasting reference in terval BUN 18 7 - 25 mg/dL [facility] . [facility] CREATININE 0.85 0.70 - 1.25 mg/dL [facility] Comment: For patients >49 years of age, the reference limit for Creatinine is approximately 13% higher for people identified as -Mexican. GFR 95 > OR = 60 mL/min/1 .73m2 [facility] GFR, 110 > OR = 60 mL/min/1 .73m2 [facility] BUN/CREAT RATIO NOT APPLICABLE 6 - 22 (calc) [facility]ST[facility] . [facility] SODIUM 137 135 - 146 mmol/L [facility] . [facility] POTASSIUM 4.4 3.5 - 5.3 mmol/L [facility] DI[facility]ST[facility] . [facility] CHLORIDE 103 98 - 110 mmol/L [facility] . [facility] CO2 25 19 - 30 mmol/L [employer] DIAGNOSTICS . [facility] CALCIUM 9.4 8.6 - 10.3 mg/dL [facility] . [facility] TOTAL PROTEIN 7.0 6.1 - 8.1 g/dL [facility] . [facility] ALBUMIN 4.4 3.6 - 5.1 g/dL [facility] GLOBULIN 2.6 1.9 - 3.7 g/dL (calc) [facility] . [facility] ALBUMIN/GLOBULIN RATIO 1.7 1.0 - 2.5 (calc) [facility] BILIRUBIN TOTAL 0.9 0.2 - 1.2 mg/dL [facility] ALKALINE PHOSPHATASE 66 40 - 115 U/L [employer] DIAGNOSTICS . [facility] AST 19 10 - 35 U/L [facility] . [facility] ALT 31 9 - 60 U/L [facility] Comment: Test Performed at: [facility] [address] [address] [place], [place] ??[address] MINO ZAMAN DO,MPH 12/24/2012 7:27 AM CDT Ciro Fernandez DO CHEMISTRY ORDERABLES Performing Organization Address [facility] Phone Number INTERFACE SYSTEM Refer to clinic/hospital department [facility] [address] [place] [address] * LIPID PANEL (12/24/2012 7:27 AM CDT) CHOLESTEROL 153 125 - 200 mg/dL [facility] Comment: Test Performed at: [facility] [employer] ??[phone] MINO ZAMAN DO,MPH HDL 42 > OR = 40 mg/dL [facility] TRIGLYCERIDE 111 <150 mg/dL [facility] LDL CALCULATED 89 <130 mg/dL (calc) [facility] Comment: Desirable range <100 mg/dL for patients with CHD or diabetes and <70 mg/dL for diabetic patients with known heart disease. CHOL/HDL RATIO 3.6 < OR = 5.0 (calc) [facility] TOTAL NON-HDL CHOL(LDL+VLDL) 111 mg/dL (calc) [facility] Comment: Target for non-HDL cholesterol is 30 mg/dL higher than LDL cholesterol target. 12/24/2012 7:27 AM CDT Ciro Fernandez DO CHEMISTRY ORDERABLES Performing Organization Address [facility] Phone Number INTERFACE SYSTEM Refer to clinic/hospital department [employer] [facility] [address] [place] [address] documented in this encounter Visit Diagnoses Not on filedocumented in this encounter
--- OUTSIDE RECORDS SUMMARY | 2024-08-19 06:47 | XMS_ITS | Encounter Summary ---
Author Organization [facility] Address [address] [place] [address] Care Team Providers Care Technical Analyst Name Role Phone Unavailable Primary Care Provider Unavailabl e Reason for Visit * Reason Onset Date Comments Medication Refill 03/19/2010 Encounter Details Date Type Department Care Team (Late st Contact Info) Description 03/19/2010 Refill [facility] Family Medicine - [facility] Abundio Kwabena [address] [facility] [address] [place] [address] Ciro Fernandez, DO [address] [facility] [address] [place] [address] Essential Hypertension, Benign; Pure Hypercholesterolemia Social History Tobacco Use Types Packs/Day Years Used Date Smoking Tobacco: Never Alcohol Use Standard Drinks/Week Comments No 0 (1 standard drink = 0.6 oz pur e alcohol) Sex and Gender Information Value Date Recorded Sex Assigned at Not on file Gender Identity Not on file Sexual Orientation Not on file documented as of this encounter Miscellaneous Notes * Telephone Encounter - Pietro Barber - 03/19/2010 9:43 AM CDT Pt wanting to get 90 day refills sent to [facility] in [facility] documented in this encounter Plan of Treatment Not on file documented as of this encounter Visit Diagnoses Diagnosis Essential hypertension, benign Pure hypercholesterolemia documented in this encounter
--- OUTSIDE RECORDS SUMMARY | 2024-08-19 06:47 | XMS_ITS | Encounter Summary ---
Author Organization [facility] Address [address] [place] [address] Care Team Providers Care Supervisor Engine Repair Name Role Phone Unavailable Primary Care Provider Unavailabl e Reason for Visit * Reason Onset Date Comments Medication Problem 09/18/2010 Irregular Heart Beat 09/18/2010 elevated Encounter Details Date Type Department Care Team (Late st Contact Info) Description 09/18/2010 Telephone [facility] Family Medicine - [facility] [address] [facility] [address] [place] [address] Ciro Fernandez, DO 107 [facility] [address] [place] [address] Medication Problem; Irregular Heart Beat (elevated) Social History Tobacco Use Types Packs/Day Years [...] * Telephone Encounter - Kay Jesus - 09/18/2010 11:[address] Fernandez states not to take together. Pulse under 100 okay to continue all medication. Discussed with patient. He states only one Pulse reading was over 100 and he had taken the antibiotic and flexeril together. Patient knows to take separately. Patient will continue to monitor. Will stop Flexeril if elevates again. DREN'S LITERATURE PROFESSOR * Telephone Encounter - Day Rosen - 09/18/2010 9:58 AM CST Pt's pulse rate has been elevated since starting Cipro, bp med and muscle relaxer. Side effect profile on abx says it can increase heart rate if taken with a muscle relaxer. His bp has been in normalrange. Should he stop any of these meds? DREN'S LITERATURE PROFESSOR documented in this encounter Plan of Treatment Not on file documented as of this encounter Visit Diagnoses Not on filedocumented in this encounter
--- OUTSIDE RECORDS SUMMARY | 2024-08-19 06:47 | XMS_ITS | Encounter Summary ---
Author Organization [facility] Address [address] [place] [address] Care Team Providers Care Dock Operations Supervisor Name Role Phone Unavailable Primary Care Provider Unavailabl e Reason for Visit * Reason Onset Date Comments Medication Refill 12/19/2011 Encounter Details Date Type Department Care Team (Late st Contact Info) Description 12/19/2011 Refill [facility] Family Medicine - [facility] [address] [facility] [address] [place] [address] Ciro Fernandez DO [address] [facility] [address] [place] [address] Social History Tobacco Use Types [...] * Telephone Encounter - Delma Foster - 12/21/2011 8:44 AM CDT Spoke with patient , he is on schedule for 12/24/2011 * Telephone Encounter - Delma Foster - 12/21/2011 8:37 AM CDTFrom: BRENDON ALDANA To: Ciro Fernandez DO Sent: Sat December 19, 2011 8:50 AM Subject: Medication Renewal Request Original authorizing provider: DO Brendon Tom would like a refill of the following medications: simvastatin (ZOCOR) 40 mg Oral tablet [Ciro Fernandez DO] Preferred pharmacy: [facility] Comment: documented in this encounter Plan of Treatment Not on file documented as of this encounter Visit Diagnoses Not on filedocumented in this encounter
--- OUTSIDE RECORDS SUMMARY | 2024-08-19 06:47 | XMS_ITS | Encounter Summary ---
Author Organization [facility] Address [address] [place] [address] Care Team Providers Care Hot Plate Plywood Press Operator Name Role Phone Unavailable Primary Care Provider Unavailabl e Reason for Visit * Reason Comments Hypertension chol, follow up labs Encounter Details Date Type Department Care Team ([facility] Contact Info) Description 09/12/2010 2:15 PM SUPERVISOR STATEMENT CLERKS Office Visit [facility] Medicine - [facility] 150 [address] [facility] [address] [place] [address] Ciro Fernandez DO [address] [facility] [address] [place] [address] Well adult exam; Essential hypertension, benign; Pure hypercholesterolemia; Dysuria; Back pain; Screen for colon cancer; Screening for prostate cancer [...] Sign Reading Time Taken Comments Blood Pressure 158/90 09/12/2010 1:55 PM SUPERVISOR STATEMENT CLERKS Pulse 84 09/12/2010 1:55 PM SUPERVISOR STATEMENT CLERKS Temperature 36.9 ??C (98.5 ??F) 09/12/2010 1:55 PM CS T Respiratory Rate - - Oxygen Saturation - - Inhaled Oxygen Concentration - - Weight 99.8 kg (220 lb) 09/12/2010 1:55 PM SUPERVISOR STATEMENT CLERKS Height - - Body Mass Index - - documented in this encounter Progress Notes * Ciro Fernandez DO - 09/12/2010 7:21 PM CST Subjective: BRENDON ALDANA is a 60 y.o. male. Pt is here for a well adult visit. Preventative health discussed and documented HPI: Mr. Aldana also complains of the following (by systems): Hypertension: Current medication(s) reviewed. Taking and tolerating medications well. 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 States he is stressed with dysuria and work. Hypertensive diet compliance: yes Low Sodium Exercise compliance: no No change in vision. No sores on feet. No paresthesias of LE. Denies chest pain, palpitations, pedal edema, shortness of breath. No polyuria or polydipsia. No fatigue. No Cephalgia. Reviewed overall treatment plan, including diet and exercise, and prevention strategies. Last labs reviewed with patient. Hypercholesterolemia: Current medication(s) reviewed. Taking and tolerating medications well. Cholesterol diet compliance: no Exercise compliance: no No change in vision. Denies chest pain, palpitations, orthopnea, pnd, pedal edema, shortness of breath. No polyuria or polydipsia. No fatigue. No muscular cramps. Reviewed overall treatment plan, including diet and exercise, and prevention strategies. Last labs reviewed with patient. He wishes to also address some pain in the back at today's visit. These have been [id number] in nature, gradual in onset. Exam shows mild generalized muscle tenderness. These pains seem benign and are likely related to back strain. OTC or prescription NSAID's are recommended for PRN use, sideeffects are discussed. Return for further discussion if these persist or worsen. He is also having symptoms of dysuria that started today. He denies hematuria. No previous history of this. Review of Systems: ROS: Psychological ROS: negative [...] rashes or unusual skin lesions Exam/Objective: BP 158/90 Pulse 84 Temp(Src) 98.5 ??F (36.9 ??C) (Temporal) Wt 220 lb (99.791 kg) Appearance: alert, well appearing, and in no distress. Skin: No unusual rashes or suspicious skin lesions noted Fundi: normal, normal vessels, no hemorrhages or exudates [...] normal, no pedal edema, good pulses Neuro: Cranial nerves and fundi are normal. Normal deep tendon reflexes. Psych: Appropriate Male Exam: Genitals normal; both testes normal without tenderness, masses, hydroceles, varicoceles,erythema or swelling. Shaft normal. Uncircumcised. No inguinal hernia noted. No inguinal lymphadenopathy. Rectal normal without masses, negative guaiac. Prostate slightly enlarged, boggy and tender, smoothand symmetric without nodules, masses. Assessment and Plan: Brendon was seen today for hypertension. Diagnoses and associated orders for this visit: Well adult exam Essential hypertension, benign - LIPID PANEL; Future - COMPREHENSIVE METABOLIC PANEL; Future - olmesartan (BENICAR) 20 mg Oral tablet; Take 1 Tab by mouth daily. Pure hypercholesterolemia - LIPID PANEL; Future - COMPREHENSIVE METABOLIC PANEL; Future - ezetimibe-simvastatin (VYTORIN 10/20) 10-20 mg Oral tablet; Take 1 Tab by mouth daily. Dysuria - ciprofloxacin (CIPRO) 500 mg Oral tablet; Take 1 Tab by mouth 2 times daily for 14 days. - POC URINALYSIS DIPSTICK Back pain - cyclobenzaprine (FLEXERIL) 10 mg Oral tablet; Take 1 Tab by mouth nightly as needed for Spasm. Screen for colon cancer - POC OCCULT BLOOD UP TO 3 CARDS Screening for prostate cancer - PSA; Future Other Orders - omeprazole magnesium (PRILOSEC OTC) 20 mg Oral TbEC; Take 1 Tab by mouth daily. - fexofenadine-pseudoephedrine SR 24 hour (ANGELICA-D 24 HOUR) 180-240 mg Oral tablet; Take 1 Tab bymouth daily. Healthy Male Appropriate patient instructions provided. Follow-up as I have indicated. Medications and options explained to include common side effects. Understanding of medications, course, diagnosis, and expectations were expressed by patient. Preventative Health discussed in full. Discussed Risks, Benefits and Alternatives of the current treatment regimen. RVISOR STATEMENT CLERKS * Kay Jesus - 09/12/2010 3:22 PM CST Faxed medications refills to [facility] to [phone]. RVISOR STATEMENT CLERKS documented in this encounter Plan of Treatment Not on file documented as of this encounter Procedures Procedure Name Priority Date/Time Associated Diagnosis Comments LIPID PANEL Routine 03/28/2011 7:40 AM CDT COMPREHENSIVE METABOLIC PANEL Routine 03/28/2011 7:40 AM CDT PSA Routine 10/11/2010 7:54 AM SUPERVISOR STATEMENT CLERKS POC URINALYSIS DIPSTICK NON AUTOMATED Routine 09/12/2010 2:29 PM SUPERVISOR STATEMENT CLERKS Dysuria POC OCCULT BLOOD UP TO 3 CARDS Routine 09/12/2010 2:28 PM SUPERVISOR STATEMENT CLERKS Screen for colon cancer documented in this encounter Results * COMPREHENSIVE METABOLIC PANEL (03/28/2011 7:40 AM CDT) GLUCOSE 97 65 - 99 mg/dL [facility] Comment:Fasting reference in terval BUN 22 7 - 25 mg/dL [facility] CREATININE 1.02 0.76 - 1.46 mg/dL [facility] GFR 80 > OR = 60 mL/min/1 .73m2 [facility] GFR, 93 > OR = 60 mL/min/1 .73m2 [facility] BUN/CREAT RATIO NOT APPLICABLE 6 - 22 (calc) [facility] SODIUM 139 135 - 146 mmol/L [facility] POTASSIUM 4.6 3.5 - 5.3 mmol/L [facility] CHLORIDE 102 98 - 110 mmol/L [facility] CO2 26 21 - 33 mmol/L [facility] CALCIUM 9.1 8.6 - 10.2 mg/dL [facility] TOTAL PROTEIN 6.9 6.2 - 8.3 g/dL [facility] ALBUMIN 4.3 3.6 - 5.1 g/dL [facility] GLOBULIN 2.6 2.1 - 3.7 g/dL (calc) [facility] ALBUMIN/GLOBULI N RATIO 1.7 1.0 - 2.1 (calc) [facility] BILIRUBIN TOTAL 0.5 0.2 - 1.2 mg/dL [facility] ALKALINE PHOSPHATASE 55 40 - 115 U/L [facility] AST 19 10 - 35 U/L [facility] ALT 31 9 - 60 U/L [facility] [employer] [facility] Comment: REPORT COMMENT: FAST 10HRS Test Performed at: [facility] ??[phone] MINO ZAMAN DO,MPH 03/28/2011 7:40 AM CDT Ciro Fernandez DO CHEMISTRY ORDERABLES INTERFACE SYSTEM Refer to clinic/hospital department Tele[facility]icine Clinic [facility] [address] [place] [address] * LIPID PANEL (03/28/2011 7:40 AM CDT) CHOLESTEROL 149 125 - 200 mg/dL [facility] [employer] [facility] Comment: Test Performed at: [employer] [address] [place], [place] ??[phone] MINO ZAMAN DO,MPH HDL 44 > OR = 40 mg/dL [facility] TRIGLYCERIDE 131 <150 mg/dL [facility] LDL CALCULATED 79 <130 mg/dL (calc) [facility] Comment: Desirable range <100 mg/dL for patients with CHD or diabetes and <70 mg/dL for diabetic patients with known heart disease. CHOL/HDL RATIO 3.4 < OR = 5.0 (calc) [facility] 03/28/2011 7:40 AM CDT Ciro Fernandez DO CHEMISTRY ORDERABLES Performing Organization Address [facility] Phone Number INTERFACE SYSTEM Refer to clinic/hospital department Telemedicine Clinic [facility] [address] [place] [address] * PSA (10/11/2010 7:54 AM SUPERVISOR STATEMENT CLERKS) PSA 0.3 < OR = 4.0 ng/mL [facility] Comment: This test was performed using the Siemens chemiluminescent method. Values obtained from different assay methods cannot be used interchangeably. PSA levels, regardless of value, should not be interpreted as absolute evidence of the presence or absence of disease. Test Performed at: [facility] [id number] [place] [address] ??[phone] MINO ZAMAN DO,MPH 10/11/2010 7:54 AM SUPERVISOR STATEMENT CLERKS Ciro Fernandez DO CHEMISTRY ORDERABLES Performing Organization Address [facility] Phone Number INTERFACE SYSTEM Refer to clinic/hospital department [facility] [address] [place] [address] * POC URINALYSIS DIPSTICK NON AUTOMATED (09/12/2010 2:29 PM SUPERVISOR STATEMENT CLERKS) COLOR UA yellow YELLOW [facility] CLARITY UA clear CLEAR [facility] SPECIFIC GRAVITY UA 1.010 1.001 - 1.035 [facility] PH UA 6.0 5 - 8 [facility] LEUKOCYTE ESTERASE UA neg NEG [facility] NITRITE UA neg NEG [facility] PROTEIN UA neg NEG [facility] GLUCOSE UA neg NEG [facility]YS[facility] S OFF[facility] CLINIC KETONES UA neg NEG [facility]YS[facility] OFFICE CLINIC UROBILINOGEN UA 0.2 2.0 EU/dL [facility] BILIRUBIN UA neg NEG [facility]YS[facility]I ANS OFFICE CLINIC BLOOD UA neg [facility]G [facility] Urine specimen (specimen) Ciro Fernandez DO POINT OF CARE TESTKENDAL G Performing Organization Address [facility] Co de Phone Number [facility] * POC OCCULT BLOOD UP TO 3 CARDS (09/12/2010 2:28 PM SUPERVISOR STATEMENT CLERKS) OCCULT BLOOD #1 negative [facility]G [facility] OCCULT BLOOD #2 [facility] OCCULT BLOOD #3 [facility] Stool specimen (specimen) Ciro Fernandez DO POINT OF CARE TESTKENDAL Anand Performing Organization Address [facility] Co de Phone Number [facility] documented in this encounter Visit Diagnoses Diagnosis Well adult exam Routine general medical examination at a health care facility Essential hypertension, benign Pure hypercholesterolemia Dysuria Back pain Backache, unspecified Screen for colon cancer Special screening for malignant neoplasms, colon Screening for prostate cancer Special screening for malignant neoplasm of prostate documented in this encounter
--- OUTSIDE RECORDS SUMMARY | 2024-08-19 06:47 | XMS_ITS | Encounter Summary ---
Author Organization [facility] Address [address] [place] [address] Care Team Providers Care Spiral Tube Winder Helper Name Role Phone Unavailable Primary Care Provider Unavailabl e Reason for Visit * Reason Onset Date Comments New Prescription Request 12/30/2009 Encounter Details Date Type Department Care Team (Late st Contact Info) Description 12/30/2009 Telephone [facility] Family Medicine - [facility] [address] [facility] [address] [place] [address] Ciro Fernandez, DO 107 [facility] [address] [place] [address] New Prescription Request Social History Tobacco Use Types Packs/Day Years Used Date Smoking Tobacco: Never Alcohol Use Standard Drinks/Week Comments No 0 (1 standard drink = 0.6 oz pur e alcohol) Sex and Gender Information Value Date Recorded Sex Assigned at Not on file Gender Identity Not on file Sexual Orientation Not on file documented as of this encounter Miscellaneous Notes * Telephone Encounter - Luana Hwang - 12/30/2009 3:48 PM CDT Pt has decided to go ahead with the Tigist. Can you check the qty, sig and refills please. documented in this encounter Plan of Treatment Not on file documented as of this encounter Visit Diagnoses Diagnosis Erectile dysfunction- Primary Impotence of organic origin documented in this encounter
--- OUTSIDE RECORDS SUMMARY | 2024-08-19 06:47 | XMS_ITS | Encounter Summary ---
Author Organization [facility] Address [address] [place] [address] Care Team Providers Care Heel Padder Name Role Phone Unavailable Primary Care Provider Unavailabl e Reason for Visit * Reason Onset Date Comments Medication Refill 06/25/2009 Encounter Details Date Type Department Care Team (Late st Contact Info) Description 06/25/2009 Refill [facility] Medicine - [facility] Lilia Kwabena [address] [facility] [address] [place] [address] Ciro Fernandez, DO 107 [facility] [address] [place] [address] Social History Tobacco Use Types [...]
--- OUTSIDE RECORDS SUMMARY | 2024-08-19 06:47 | XMS_ITS | Encounter Summary ---
Author Organization [facility] Address [address] [place] [address] Care Team Providers Care Cleaning Handyman Name Role Phone Unavailable Primary Care Provider Unavailabl e Encounter Details Date Type Department Care Team (Late st Contact Info) Description 12/25/2011 Abstract [facility] Medicine - [facility] Kw[address] [facility] [address] [place] [address] Ciro Fernandez, DO 107 [facility] [address] [place] [address] Social History Tobacco Use Types [...]
--- OUTSIDE RECORDS SUMMARY | 2024-08-19 06:47 | XMS_ITS | Encounter Summary ---
Author Organization [facility] Address [address] [place] [address] Care Team Providers Care Office Machines Teacher Name Role Phone Inderjit Narayan DO Primary Care Provider + Encounter Details Date Type Department Care Team (Late st Contact Info) Description 11/20/2008 Outpatient Historical [facility] Cristela Gant MD [address] [place] [address] Blood in Stool Social History Tobacco Use Types Packs/Day Years [...] as of this encounter Visit Diagnoses Diagnosis Blood in stool documented in this encounter Care Teams Office Machines Teacher Relationship Specialty Start Date End Date Inderjit Narayan DO [address] [place] [phone] PCP - General Family Practice 04/09/23 08/29/23 documented as of this encounter
--- OUTSIDE RECORDS SUMMARY | 2024-08-19 06:47 | XMS_ITS | Encounter Summary ---
Author Organization [facility] Address [address] [place] [address] Care Team Providers Care Avionics Integration Engineer Name Role Phone Unavailable Primary Care Provider Unavailabl e Reason for Visit * Reason Onset Date Comments Sinus Pain 03/27/2009 Encounter Details Date Type Department Care Team (Late st Contact Info) Description 03/27/2009 Telephone [facility] Family Medicine - [facility] [address]ena [address] [facility] [address] [place] [address] Ciro Fernandez, DO [address] [facility] [address] [place] [address] Sinus Pain Social History Tobacco [...] * Telephone Encounter - Luana Hwang - 03/27/2009 11:15 AM CDT Pt notified. * Telephone Encounter - Ciro Fernandez - 03/27/2009 11:13 AM CDT If you take aleve cold and sinus take only regular Rima/zyrtec - not with the D (decongestant) on it. * Telephone Encounter - Luana Hwang - 03/27/2009 11:11 AM CDT Pt wants to know if it is okay for him to take aleve cold and sinus with the rima d. Does it also have sudafed in it? * Telephone Encounter - Ciro Fernandez - 03/27/2009 11:04 AM CDT I would, however I haven't seen you for this, and it wouldn't be the best medically ethical thing to do. I would suggest continuing your allergy medications, trial of aleve cold and sinus and if still not improving to RTO for an evaluation. * Telephone Encounter - Luana Hwang - 03/27/2009 9:40 AM CDT Pt was just here on the . Now he has a sore throat and cough but mostly sinus pressure and headache. He says his face feels puffy on the left side. Wants to know if you'll send something in for him since he was just here. documented in this encounter Plan of Treatment Not on file documented as of this encounter Visit Diagnoses Not on filedocumented in this encounter
--- OUTSIDE RECORDS SUMMARY | 2024-08-19 06:47 | XMS_ITS | Encounter Summary ---
Author Organization [facility] Address [address] [place] [address] Care Team Providers Care Butcher Head Name Role Phone Unavailable Primary Care Provider Unavailabl e Reason for Visit * Reason Onset Date Comments Medication Refill 11/30/2008 Encounter Details Date Type Department Care Team (Late st Contact Info) Description 11/30/2008 Refill [facility] Family Medicine - [facility] Kwabena [address] [facility] [address] [place] [address] Ciro Fernandez, DO [address] [facility] [address] [place] [address] Social History Tobacco Use Types [...] * Telephone Encounter - Pietro Barber - 11/30/2008 11:51 AM CDT Pt notified that Dr. Fernandez will hold/refuse this med until patient is seen in the office. documented in this encounter Plan of Treatment Not on file documented as of this encounter Visit Diagnoses Not on filedocumented in this encounter
--- OUTSIDE RECORDS SUMMARY | 2024-08-19 06:47 | XMS_ITS | Encounter Summary ---
Author Organization [facility] Address [address] [place] [address] Care Team Providers Care Pipe Supervisor Name Role Phone Unavailable Primary Care Provider Unavailabl e Reason for Visit * Reason Onset Date Comments Medication Refill 04/05/2009 Encounter Details Date Type Department Care Team (Late st Contact Info) Description 04/05/2009 Refill [facility] Medicine - [facility] Lilia Kwabena [address] [facility] [address] [place] [address] Ciro Fernandez, DO 107 [facility] [address]IA [address]UR[address] [place] [address] Social History Tobacco Use Types [...]
--- OUTSIDE RECORDS SUMMARY | 2024-08-19 06:47 | XMS_ITS | Encounter Summary ---
Author Organization [facility] Address [address] [place] [address] Care Team Providers Care Manager Advertising Name Role Phone Unavailable Primary Care Provider Unavailabl e Reason for Visit * Reason Comments Follow Up labs Encounter Details Date Type Department Care Team (Latest Contact Info) Description 03/22/2009 3:00 PM CDT Office Visit [facility] Medicine [facility] [address] [facility] [address] [place] [address] Ciro Fernandez, DO [address] [facility] [address] [place] [address] Essential Hypertension, Benign (Primary Dx); Osteoarthritis; Pure Hypercholesterolemia Social History Tobacco Use Types [...] Sign Reading Time Taken Comments Blood Pressure 110/72 03/22/2009 2:43 PM CDT Pulse 64 03/22/2009 2:43 PM CDT Temperature 36.7 ??C (98.1 ??F) 03/22/2009 2:43 PM CD T Respiratory Rate - - Oxygen Saturation - - Inhaled Oxygen Concentration - - Weight 92.1 kg (203 lb) 03/22/2009 2:43 PM CDT Height - - Body Mass Index - - documented in this encounter Progress Notes * Ciro Fernandez - 03/22/2009 4:45 PM CDT SUBJECTIVE: Brendon Aldaan is a 58 y.o. male here to discuss medical issues including hypertension. DECREASE IN WEIGHT RECENTLY DUE TO INCREASE IN ACTIVITY Back at work PT ALSO GOING TO [facility] IN [place]. Current medication(s) reviewed. Taking and tolerating medications well. 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 Hypertensive diet compliance: yes Low Sodium Exercise compliance: yes Reviewed overall treatment plan, including diet and exercise, and prevention strategies. Last labs reviewed with patient. 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 HEWAS TAKING RX IBUPROFEN 800MG FOR YEARS UNTIL LAST VISITS I STOPPED THE MEDICINE FOR PRN USE ONLY. PT DENIES STOMACH PROBLEMS, GI BLEEDING, PROBLEMS WITH KIDNEYS AND WANTS TO go back to ibuprofen (was on mobic) ON A PRN BASIS. These have been pmac-qf-cmenhnyn in nature, gradual in onset. These pains seem benign and are likely related to osteoarthritis. OTC or prescription NSAID's are recommended for PRN use, side effects are discussed. Return for further discussion if these persist or worsen. Hypercholesterolemia: Current medication(s) reviewed. Cholesterol diet compliance: [...] neck pain or joint pain or swelling ON A REGULAR BASIS- NONE TODAY Neurological ROS: negative for TIA or stroke symptoms, no bowel and bladder control changes Dermatological ROS: negative for skin rashes or unusual skin lesions noted OBJECTIVE: BP 110/72 Pulse 64 Temp(Src) 98.1 ??F (36.7 ??C) (Temporal) Wt 203 lb (92.08 kg) Appearance: alert, well appearing, and in no distress. Skin: I note only benign skin findings. No unusual rashes or suspicious skin lesions noted Fundi: normal, normal vessels, no hemorrhages or exudates, no background retinopathy noted HEENT: Ears normal. Throat and pharynx normal. [...] are normal. Normal deep tendon reflexes. Psych: Alaina Olivas was seen today for follow up. Diagnoses and associated orders for this visit: - Essential hypertension, benign - Olmesartan 20 mg tab -- Take 1 Tab by mouth daily. - Cmp - 6 mo -- Future - Lipid panel - 6mo -- Future - Cmp - 6 mo - Lipid panel - 6mo - Osteoarthritis - Ibuprofen 800 mg tab -- Take 1 Tab by mouth every 6 hours as needed for Pain. - Pure hypercholesterolemia - Cmp - 6 mo -- Future - Lipid panel - 6mo -- Future - Cmp - 6 mo - Lipid panel - 6mo TAKE Ibuprofen WITH FOOD IN AM - DISCUSSED RISKS INCLUDING CV - RARE USE Check BP on a regular basis and report highs and lows. Discussed Risks, Benefits and Alternatives of the current treatment regimen. F/u in 6 months documented in this encounter Plan of Treatment Not on file documented as of this encounter Procedures Procedure Name Priority Date/Time Associated Diagnosis Comments LIPID PANEL Routine 12/22/2009 8:00 AM CDT Pure Hypercholesterolem ia Essential Hypertension, Benign COMPREHENSIVE METABOLIC PANEL Routine 12/22/2009 8:00 AM CDT Pure Hypercholesterolem ia Essential Hypertension, Benign documented in this encounter Results * LIPID PANEL (12/22/2009 8:00 AM CDT) CHOLESTEROL 129 125 - 200 mg/dL [facility] Comment: Test Performed at: [facility] [address] [place], [place] ??[phone] MINO ZAMAN DO,MPH HDL 42 > OR = 40 mg/dL [facility] TRIGLYCERIDE 105 <150 mg/dL [facility] LDL CALCULATED 66 <130 mg/dL (calc) [facility] Comment: Desirable range <100 mg/dL for patients with CHD or diabetes and <70 mg/dL for diabetic patients with known heart disease. CHOL/HDL RATIO 3.1 < OR = 5.0 (calc) [facility] Blood specimen (specimen) Ciro Fernandez DO CHEMISTRY ORDERABLES INTERFACE SYSTEM Refer to clinic/hospital department [facility] [address] [place] [address] * COMPREHENSIVE METABOLIC PANEL (12/22/2009 8:00 AM CDT) GLUCOSE 96 65 - 99 mg/dL [facility] Comment:Fasting reference in terval BUN 12 7 - 25 mg/dL [facility] CREATININE 0.79 0.76 - 1.46 mg/dL [facility] GFR >60 > OR = 60 mL/min/1 .73m2 [facility] GFR, >60 > OR = 60 mL/min/1 .73m2 [facility] BUN/CREAT RATIO NOT APPLICABLE 6 - 22 (calc) [facility] Comment: Bun/Creatinine ratio is not reported when the BUN and creatinine values are within normal limits. SODIUM 141 135 - 146 mmol/L [facility] POTASSIUM 4.6 3.5 - 5.3 mmol/L [facility] CHLORIDE 104 98 - 110 mmol/L [facility] CO2 26 21 - 33 mmol/L [facility] CALCIUM 9.3 8.6 - 10.2 mg/dL [facility] TOTAL PROTEIN 7.0 6.2 - 8.3 g/dL [facility]. [facility] ALBUMIN 4.5 3.6 - 5.1 g/dL [facility]. [facility] GLOBULIN 2.5 2.1 - 3.7 g/dL (calc) [facility] ALBUMIN/GLOBULI N RATIO 1.8 1.0 - 2.1 (calc) [facility] BILIRUBIN TOTAL 0.6 0.2 - 1.2 mg/dL [facility] ALKALINE PHOSPHATASE 69 40 - 115 U/L [facility] AST 30 10 - 35 U/L [facility]. [facility] ALT 49 9 - 60 U/L [facility] Comment: Test Performed at: [facility] [place] [address] [place], [place] ??[phone] MINO ZAMAN DO,MPH Blood specimen (specimen) Ciro Fernandez DO CHEMISTRY ORDERABLES INTERFACE SYSTEM Refer to clinic/hospital department [facility] [address] [place] [address] documented in this encounter Visit Diagnoses Diagnosis Essential hypertension, benign- Primary Osteoarthritis Osteoarthrosis, unspecified whether generalized or localized, unspecified site Pure hypercholesterolemia documented in this encounter
--- OUTSIDE RECORDS SUMMARY | 2024-08-19 06:47 | XMS_ITS | Encounter Summary ---
Author Organization [facility] Address [address] [place] [address] Care Team Providers Care Teacher Private Name Role Phone Unavailable Primary Care Provider Unavailabl e Reason for Visit * Reason Comments Hoarse chills, hax 4days Encounter Details Date Type Department Care Team (Late st Contact Info) Description 12/08/2010 10:45 AM CDT Office Visit [facility] Medicine - [facility] Abundio Yuan [address] [facility] [address] [place] [address] Ciro Fernandez, DO [address] [facility] [address] [place] [address] Acute pharyngitis (Primary Dx); Acute sinusitis Social History Tobacco Use Types [...] Sign Reading Time Taken Comments Blood Pressure 130/78 12/08/2010 10:35 AM CDT Pulse 80 12/08/2010 10:35 AM CDT Temperature 36.8 ??C (98.2 ??F) 12/08/2010 10:35 AM C DT Respiratory Rate - - Oxygen Saturation - - Inhaled Oxygen Concentration - - Weight 97.5 kg (215 lb) 12/08/2010 10:35 AM CDT Height 177.8 cm (5' 10 ) 12/08/2010 10:35 AM CDT Body Mass Index 30.85 12/08/2010 10:35 AM CDT documented in this encounter Progress Notes * Ciro Fernandez DO - 12/08/2010 11:17 AM CDT Subjective: BRENDON ALDANA 60 y.o. male presents with a 4 day history of cough, sore throat, postnasal discharge, [...] well as Allergies and Medications. Objective: BP 130/78 Pulse 80 Temp(Src) 98.2 ??F (36.8 ??C) (Temporal) Ht 5' 10 (1.778 m) Wt 215 lb (97.523 kg) BMI 30.85 kg/m2 Gen'l: NAD HEENT: Perrla, eomi. Sinuses tender to palpation over the right maxillary sinuses. Throat erythematous without exudates. pale, swollen nasal turbinates. yellow Nasal Discharge. Ears Normal. Neck: Supple. No lymphadenopathy. No meningeal signs. Negative Brudinski, Negative Kernigs Lungs: Clear to auscultation bilaterally. CV: RRR. No murmur. Ext: No edema Skin: No rash noted on examination. A/P: Brendon was seen today for hoarse. Diagnoses and associated orders for this visit: Acute pharyngitis - dexamethasone (DECADRON) 4 mg/mL Injection Soln; Inject 1 mL by intramuscular injection one time only for 1 dose. - DEXAMETHASONE SODIUM PHOSPHATE 4 MG/ML INJECTION Acute sinusitis - azithromycin (ZITHROMAX) 250 mg Oral tablet; Take by mouth. Take 2 tabs the first day and [...] of this encounter Visit Diagnoses Diagnosis Acute pharyngitis- Primary Acute sinusitis Acute sinusitis, unspecified documented in this encounter
--- OUTSIDE RECORDS SUMMARY | 2024-08-19 06:47 | XMS_ITS | Encounter Summary ---
Author Organization [facility] Address [address] [place] [address] Care Team Providers Care Sled Maker Name Role Phone Unavailable Primary Care Provider Unavailabl e Reason for Visit * Reason Comments Follow Up medication Encounter Details Date Type Department Care Team (Late st Contact Info) Description 01/02/2009 10:45 AM CDT Office Visit [facility] Medicine - [facility] [address] [facility] [address] [place] [address] Ciro Fernandez, DO [address] [facility] [address] [place] [address] Essential Hypertension, Benign; Osteoarthritis Social History Tobacco Use Types Packs/Day Years [...] Sign Reading Time Taken Comments Blood Pressure 114/78 01/02/2009 10:30 AM CDT Pulse 60 01/02/2009 10:30 AM CDT Temperature 36.7 ??C (98.1 ??F) 01/02/2009 10:30 AM C DT Respiratory Rate - - Oxygen Saturation - - Inhaled Oxygen Concentration - - Weight 93.9 kg (207 lb) 01/02/2009 10:30 AM CDT Height - - Body Mass Index - - documented in this encounter Progress Notes * Ciro Fernandez - 01/02/2009 12:31 PM CDT SUBJECTIVE: Brendon Aldana is a 58 y.o. male here to discuss medical issues including hypertension. 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 PT ALSO GOING TO [facility] IN [place]. Current medication(s) reviewed. Taking and tolerating medications [...] BLEEDING, PROBLEMS WITH KIDNEYS AND WANTS TO START SOMETHING ON A PRNBASIS. These have been demi-iz-thhjsssi in nature, gradual in onset. These pains seem benign and are likely related to osteoarthritis. OTC or prescription NSAID's are recommended for PRN use, side effects are discussed. Return for further discussion if these persist or worsen. Past Medical/Surgical/Social/Family History reviewed as well as [...] or unusual skin lesions noted OBJECTIVE: BP 114/78 Pulse 60 Temp(Src) 98.1 ??F (36.7 ??C) (Temporal) Wt 207 lb (93.895 kg) Appearance: alert, well appearing, and in [...] normal. Normal deep tendon reflexes. Psych: Appropriate Brendon was seen today for follow up. Diagnoses and associated orders for this visit: - Essential hypertension, benign - Olmesartan 20 mg tab -- Take 1 Tab by mouth daily. - Osteoarthritis - Meloxicam 15 mg tab -- Take 1 Tab by mouth daily. TAKE WITH FOOD IN AM - DISCUSSED RISKS INCLUDING CV - RARE USE Check BP on a regular basis and report highs and lows. Discussed Risks, Benefits and Alternatives of the current treatment regimen. documented in this encounter Plan of Treatment Not on file documented as of this encounter Visit Diagnoses Diagnosis Essential hypertension, benign Osteoarthritis Osteoarthrosis, unspecified whether generalized or localized, unspecified site documented in this encounter
--- OUTSIDE RECORDS SUMMARY | 2024-08-19 06:47 | XMS_ITS | Encounter Summary ---
Author Organization [facility] Address [address] [place] [address] Care Team Providers Care Manager Risk Name Role Phone Unavailable Primary Care Provider Unavailabl e Encounter Details Date Type Department Care Team (Late st Contact Info) Description 09/19/[address] [facility] Medicine - [facility] [address] [facility] [address] [place] [address] Ciro Fernandez, DO [address] [facility] [address] [place] [address] Social History Tobacco Use Types [...]
--- OUTSIDE RECORDS SUMMARY | 2024-08-19 06:47 | XMS_ITS | Encounter Summary ---
Author Organization [facility] Address [address] [place] [address] Care Team Providers Care Wig Maker Name Role Phone Unavailable Primary Care Provider Unavailabl e Reason for Visit * Reason Onset Date Comments Medication Refill 09/05/2009 Encounter Details Date Type Department Care Team (Late st Contact Info) Description 09/05/2009 Refill [facility] - [facility] [address] [facility] [address] [place] [address] Ciro Fernandez, DO [address] [facility] [address] [place] [address] Social History Tobacco Use Types [...] * Telephone Encounter - Kay Jesus - 09/05/2009 9:07 AM CST [employer] states that Melissa D 24hr is not available from steam and power supervisor. Would like to know if they cansubstitute Allergra D 12hr bid? Dr Fernandez oked. New script sent. ESQUE DANCER documented in this encounter Plan of Treatment Not on file documented as of this encounter Visit Diagnoses Not on filedocumented in this encounter
--- OUTSIDE RECORDS SUMMARY | 2024-08-19 06:47 | XMS_ITS | Encounter Summary ---
Author Organization [facility] Address [address] [place] [address] Care Team Providers Care Nail Artist Name Role Phone Unavailable Primary Care Provider Unavailabl e Encounter Details Date Type Department Care Team (Late st Contact Info) Description 07/15/2011 Abstract [facility] Medicine - [facility] [address] [facility] [address] [place] [address] Ciro Fernandez, DO [address] [facility] [address] [place] [address] Social History Tobacco Use Types [...]
--- OUTSIDE RECORDS SUMMARY | 2024-08-19 06:47 | XMS_ITS | Encounter Summary ---
Author Organization [facility] Address [address] [place] [address] Care Team Providers Care Counter Dish Carrier Name Role Phone Unavailable Primary Care Provider Unavailabl e Encounter Details Date Type Department Care Team (Latest Contact Info) Description 09/28/2008 Orders Only HIS CONVERSION Conversion, History Social History Tobacco Use Types Packs/Day Years Used Date Smoking Tobacco: Never Alcohol Use Standard Drinks/Week Comments No 0 (1 standard drink = 0.6 oz pur e alcohol) Sex and Gender Information Value Date Recorded Sex Assigned at Not on file Gender Identity Not on file Sexual Orientation Not on file documented as of this encounter Progress Notes * Conversion, History - 01/11/2009 11:[address] [place], [place] [address] cc: Cristela Gant MD ADDENDUM TO COLONOSCOPY REPORT There were a few scattered diverticula in the left colon seen in addition to the already reported findings. BRIA:MEDQ Dictated by: Cristela Gant MD Cristela Gant MD Result Type: GASTROENTEROLOGY Result Date: September 28, 2008 02:25 PM Result Status: UNREVIEWED EYOR TENDER * Conversion, History - 01/11/2009 11:[address] [place], [place] [address] cc: MD Ciro Stone D.O. COLONOSCOPY REPORT PROCEDURE Colonoscopy. PREOPERATIVE DIAGNOSIS Diarrhea, hematochezia. POSTOPERATIVE DIAGNOSIS COLONOSCOPY FINDINGS: 1. The examined ileum was normal. 2. Nonspecific colitis in the descending colon, biopsies obtained, cultures obtained. 3. One 6-7 cm partially pedunculated polyp in the descending colon, saline lifted snare for polypectomy technique, resected and retrieved and sent for histology. 4. Small internal hemorrhoids. PLAN The patient has a nonspecific colitis which may account for his diarrhea and hematochezia. He does appear to be symptomatically improving. Will await pathology, cultures. Await pathology of colonic polyp. If adenomatous, repeat colonoscopy in 3-5 years. If hyperplastic, repeat colonoscopy in 5 years given family history. Avoid nonsteroidal anti-inflammatory medications for at least 14 days to allow for healing of colitis as well as decrease the risk for post polypectomy bleeding. Fiber supplementation once the patient has improved from his GI standpoint, may be in about 2-3 weeks, to maintain regularity. SCOPE [id number]. MEDICATIONS Propofol per anesthesia. 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 HISTORY/INDICATIONS Mr. Brendon Aldana is a 58-year-old gentleman who presents with complaints of hematochezia, diarrhea times 24-48 hours. This was approximately a week ago. He is currently improving. He had a colonoscopy approximately 3 years ago which was otherwise unremarkable. He has no other GI complaints. PAST MEDICAL HISTORY Hypertension, hypercholesterolemia, seasonal allergies. PAST SURGICAL HISTORY Brain surgery at age 18 months. MEDICATIONS 1. Benicar. 2. Vytorin. 3. Melissa. 4. Prilosec. ALLERGIES None. FAMILY HISTORY Grandfather with colon cancer. SOCIAL HISTORY Tobacco: None. Ethanol: None. REVIEW OF SYSTEMS As per history of present illness. PHYSICAL EXAMINATION GENERAL: Well developed, well nourished, in no acute distress. VITAL SIGNS: Stable, afebrile. HEENT: Sclerae nonicteric, mucosal membranes moist. LUNGS: Clear to auscultation and percussion. CARDIOVASCULAR: Regular rate and rhythm. Normal S1 and S2. ABDOMEN: Soft, nondistended, normoactive bowel sounds. No hepatosplenomegaly, no masses or tenderness on palpation. EXTREMITIES: No clubbing, cyanosis, or edema. NEUROLOGICAL: Moves all extremities well. Nonfocal. INFORMED CONSENT The patient was informed of the indications for the procedure, the risks/benefits and the alternatives, and agreed to proceed. In particular, the patient was informed of the risk of perforation/ (1:1000), medication side effect, infection, a missed lesion, or incomplete examination. In the case of dilatation, the patient was informed of the risk of perforation (1 to 5%). There was nothing on history or physical examination precluding the procedure. PROCEDURE IN DETAIL The patient was placed in the left lateral decubitus position. Appropriate monitoring devices were put into place. After adequate sedation was obtained, a rectal examination was performed. No gross abnormalities were noted. The scope was passed through the rectum and rectosigmoid junction. The scope was then able to be passed to the cecum in a straightforward manner. The cecum was identified by the appendiceal orifice, the ileocecal valve, and a RLQ light reflex. The scope was then withdrawn with careful inspection of the mucosa. The examined ileum was normal. The colon was examined. There was a nonspecific colitis with erythema and granularity and loss of vascularity in the descending colon. There was a 6-7 mm partially pedunculated polyp in the descending colon, saline lifted snare for polypectomy technique. There were small internal hemorrhoids seen on retroflexed view in the rectum. The patient tolerated the procedure well. There were no complications. DISPOSITION The patient will go to recovery prior to discharge home. SPECIMENS Descending colon biopsies, descending colon polyp. BRIA:MEDQ Dictated by: Cristela Gant MD Cristela Gant MD Result Type: GASTROENTEROLOGY Result Date: September 28, 2008 11:29 AM Result Status: UNREVIEWED EYOR TENDER documented in this encounter Plan of Treatment Not on file documented as of this encounter Visit Diagnoses Not on filedocumented in this encounter
--- OUTSIDE RECORDS SUMMARY | 2024-08-19 06:47 | XMS_ITS | Encounter Summary ---
Author Organization [facility] Address [address] [place] [address] Care Team Providers Care Dog Beautician Name Role Phone Unavailable Primary Care Provider Unavailabl e Reason for Visit * Reason Comments Eye Pain sore throat Encounter Details Date Type Department Care Team (Late st Contact Info) Description 03/28/2009 11:00 AM CDT Office Visit [facility] Medicine - [facility] [address] [facility] [address] [place] [address] Ciro Fernandez, DO [address] [facility] [address] [place] [address] Acute Sinusitis (Primary Dx); Acute Pharyngitis; Conjunctivitis Social History Tobacco Use Types Packs/Day Years [...] Sign Reading Time Taken Comments Blood Pressure 120/82 03/28/2009 10:43 AM CDT Pulse 72 03/28/2009 10:43 AM CDT Temperature 36.8 ??C (98.2 ??F) 03/28/2009 10:43 AM C DT Respiratory Rate - - Oxygen Saturation - - Inhaled Oxygen Concentration - - Weight 93 kg (205 lb) 03/28/2009 10:43 AM CDT Height - - Body Mass Index - - documented in this encounter Progress Notes * Ciro Fernandez - 03/28/2009 11:38 AM CDT SUBJECTIVE: 59 y.o. male with burning, redness, discharge and mattering in both eyes for 1 days. No significantprior ophthalmological history. No change in visual acuity, no photophobia, no severe eye pain. A 5 day history of cough, sore throat, postnasal discharge, MORALES. Tried nasal steroids and prescription antihistamines OTC cough/cold product of patient's choice PRNand fluids and rest with no improvement. Patient denies chest pain or SOB. No N/V/D. Positive ROS for fatigue. No other symptoms. Negative Sick Contacts Negative Fevers Past Medical/Surgical/Social/Family History reviewed as well as Allergies and Medications. OBJECTIVE: Blood pressure 120/82, pulse 72, temperature 98.2 ??F (36.8 ??C), temperature source Temporal, weight 205 lb (92.987 kg). Patient appears well, vitals signs are normal. Eyes: both eyes with findings of typical conjunctivitis noted; erythema and discharge. PERRLA, no foreign body noted. No periorbital cellulitis. The corneas are clear and fundi normal. Visual acuity normal. S1 and S2 normal, no murmurs, clicks, gallops or rubs. Regular rate and rhythm. Chest is clear; no wheezes or rales. No edema or JVD. Chest is clear, no wheezing or rales. Normal symmetric air entry throughout both lung dsouza. No chest wall deformities or tenderness. Ears normal. Throat and pharynx erythematous - no exudate. +Maxillary sinus tenderness to palpation. +Boggy enlarged turbinates with green discharge. Neck supple. No adenopathy or masses in the neck or supraclavicular regions. A/P: Brendon was seen today for eye pain. Diagnoses and associated orders for this visit: - Acute sinusitis - Trimethoprim-sulfamethoxazole 160 mg-800 mg tab -- Take 1 Tab by mouth 2 times daily for 10 days. - Acute pharyngitis - Poc rapid strep a - Conjunctivitis - Erythromycin 5 mg/g eye ointment -- 0.5 Inches by See Admin Instructions route 4 times daily. Rest, Fluids Cont with allergy meds - Melissa D and restart Nasal steroid. Antibiotic drops per order. Hygiene discussed. If other family members develop same condition, may use same medication for them if they are not known to be allergic to it. Call prn. documented in this encounter Plan of Treatment Not on file documented as of this encounter Procedures Procedure Name Priority Date/Time Associated Diagnosis Comments POC RAPID STREP A ANTIGEN Routine 04/22/2009 3:38 PM CDT Acute Pharyngitis documented in this encounter Results * POC RAPID STREP A (04/22/2009 3:38 PM CDT) RAPID STREP neg [facility]G [facility] Specimen from throat (specimen) Ciro Fernandez DO POINT OF CARE TESTIN [facility] documented in this encounter Visit Diagnoses Diagnosis Acute sinusitis- Primary Acute sinusitis, unspecified Acute pharyngitis Conjunctivitis Conjunctivitis, unspecified documented in this encounter
--- OUTSIDE RECORDS SUMMARY | 2024-08-19 06:47 | XMS_ITS | Encounter Summary ---
Author Organization [facility] Address [address] [place] [address] Care Team Providers Care Vertical Lathe Operator Name Role Phone Unavailable Primary Care Provider Unavailabl e Reason for Visit * Reason Onset Date Comments Medication Question 09/19/2010 Encounter Details Date Type Department Care Team (Late st Contact Info) Description 09/19/2010 Telephone [facility] Family Medicine - [facility] [address] [facility] [address] [place] [address] Ciro Fernandez, DO 107 [facility] [address] [place] [address] Medication Question Social History Tobacco Use Types Packs/Day Years Used Date Smoking Tobacco: Never Alcohol Use Standard Drinks/Week Comments No 0 (1 standard drink = 0.6 oz pur e alcohol) Sex and Gender Information Value Date Recorded Sex Assigned at Not on file Gender Identity Not on file Sexual Orientation Not on file documented as of this encounter Miscellaneous Notes * Telephone Encounter - Sisi James - 09/19/2010 3:16 PM CSTAddended by: SISI JAMES on: 09/19/2010 Modules accepted: Orders, Medications ERTY MANAGEMENT SUPERVISOR * Telephone Encounter - Sisi James - 09/19/2010 3:15 PM CST Received fax from [employer] requesting different cholesterol medication. Dr Fernandez states can change to Simvastatin. Pharmacy and patient notified. ERTY MANAGEMENT SUPERVISOR documented in this encounter Plan of Treatment Not on file documented as of this encounter Visit Diagnoses Not on filedocumented in this encounter
--- OUTSIDE RECORDS SUMMARY | 2024-08-19 06:47 | XMS_ITS | Encounter Summary ---
Author Organization [facility] Address [address] [place] [address] Care Team Providers Care Pulpwood Contractor Name Role Phone Unavailable Primary Care Provider Unavailabl e Reason for Visit * Reason Comments Lesions on right hand Moles neck Encounter Details Date Type Department Care Team (Late st Contact Info) Description 05/26/2010 2:30 PM CDT Office Visit [facility] Medicine - [facility] [address] [facility] [address] [place] [address] Ciro Fernandez DO 107 [facility] [address] [place] [address] AK (actinic keratosis) (Primary Dx); Skin tags Social History Tobacco Use Types Packs/Day Years [...] Reading Time Taken Comments Blood Pressure 120/80 05/26/2010 2:06 PM CDT Pulse 64 05/26/2010 2:06 PM CDT Temperature 36.9 ??C (98.5 ??F) 05/26/2010 2:06 PM CD T Respiratory Rate - - Oxygen Saturation - - Inhaled Oxygen Concentration - - Weight 98.9 kg (218 lb) 05/26/2010 2:06 PM CDT Height - - Body Mass Index - - documented in this encounter Progress Notes * Ciro Fernandez DO - 05/26/2010 7:14 PM CDT Subjective: Brendon Aldana is a 60 y.o. male who is here to discuss a skin lesion of the hands and around the neck. The lesions on his hands has been present for several years. He previously went to a equipment tester and diagnosed with actinic keratosis. Previously attempted toremove many lesions and also cryotherapy without complications. Lesion has changed in several months becoming more irritating and scaling. Symptoms associated with the lesion are: increasing diameter, increasing number of lesions. Patientdenies bleeding, drainage. Also having skin tags on neck - multiple and growing. Review of Systems - General ROS: negative [...] well as Allergies and Medications. Objective: BP 120/80 Pulse 64 Temp(Src) 98.5 ??F (36.9 ??C) (Temporal) Wt 218 lb (98.884 kg) Appearance: alert, well appearing, and in [...] chest wall deformities or tenderness. Psych: Appropriate Lesion Hands: Bilateral hands with multiple areas of scaling erythematous patches. Neck: +bilateral neck skin tags Assessment: Plan: Brendon was seen today for lesions and moles. Diagnoses and associated orders for this visit: Ak (actinic keratosis) - - DESTRUCT PREMALIGNANT LESION, FIRST LESION - - DESTRUCT PREMALIGNANT LESIONS, 2-14 LESIONS Skin tags Return for removal PROCEDURE: After informed consent was obtained, using alcohol for cleansing and with sterile technique, cryotherapy with liquid nitrogen was performed. Various treatment methods, side effects and failure rates have been discussed. A choice of liquid nitrogen was made, and the expected blistering or scabbing reaction explained. Liquid nitrogen was applied to 4 AK's on right hand and 3 AK's on left hand for three 5 second freeze/thaw cycles. Call or return to clinic prn if these symptoms worsen or fail to improve as anticipated. Be alert for any signs of cutaneous infection. The procedure was well tolerated without complications. Follow up: the patient may return prn. Discussed Risks, Benefits and Alternatives of the current treatment regimen. documented in this encounter Plan of Treatment Not on file documented as of this encounter Visit Diagnoses Diagnosis AK (actinic keratosis)- Primary Actinic keratosis Skin tags Unspecified hypertrophic and atrophic condition of skin documented in this encounter
--- OUTSIDE RECORDS SUMMARY | 2024-08-19 06:47 | XMS_ITS | Encounter Summary ---
Author Organization [facility] Address [address] [place] [address] Care Team Providers Care Milled Rubber Tender Name Role Phone Unavailable Primary Care Provider Unavailabl e Reason for Visit * Reason Onset Date Comments Medication Problem 04/25/2009 PA on tommy miguel Encounter Details Date Type Department Care Team (Late st Contact Info) Description 04/25/2009 Telephone [facility] Family Medicine - [facility] [address] [facility] [address] [place] [address] Ciro Fernandez, DO 107 [facility] [address] [place] [address] Medication Problem (PA on singular) Social History Tobacco Use Types Packs/Day Years [...] * Telephone Encounter - Pietro Barber - 04/25/2009 2:22 PM CDT PA is requested on patient for singular. Patient has tried rima, zyrtec, and claritin, flonase, and nasonex. Awaiting response. documented in this encounter Plan of Treatment Not on file documented as of this encounter Visit Diagnoses Not on filedocumented in this encounter
--- OUTSIDE RECORDS SUMMARY | 2024-08-19 06:47 | XMS_ITS | Encounter Summary ---
Author Organization [facility] Address [address] [place] [address] Care Team Providers Care Plant Supervisor Name Role Phone Unavailable Primary Care Provider Unavailabl e Encounter Details Date Type Department Care Team (Late st Contact Info) Description 09/17/2010 Abstract [facility] Medicine - [facility] [address] [facility] [address] [place] [address] Ciro Fernandez, DO 107 [facility] [address] [place] [address] Social History Tobacco Use Types [...]
--- OUTSIDE RECORDS SUMMARY | 2024-08-19 06:47 | XMS_ITS | Encounter Summary ---
Author Organization [facility] Address [address] [place] [address] Care Team Providers Care Benzene Still Utility Operator Name Role Phone Unavailable Primary Care Provider Unavailabl e Reason for Visit * Reason Onset Date Comments Results 12/03/2008 LABS Encounter Details Date Type Department Care Team (Late st Contact Info) Description 12/03/2008 Telephone [facility] Family Medicine - [facility] [address] [facility] [address] [place] [address] Ciro Fernandez, DO 107 [facility] [address] [place] [address] Results (LABS) Social History Tobacco Use Types Packs/Day Years Used Date Smoking Tobacco: Never Alcohol Use Standard Drinks/Week Comments No 0 (1 standard drink = 0.6 oz pur e alcohol) Sex and Gender Information Value Date Recorded Sex Assigned at Not on file Gender Identity Not on file Sexual Orientation Not on file documented as of this encounter Miscellaneous Notes * Telephone Encounter - Eugenie Cage - 12/03/2008 1:34 PM CDT LMOC * Telephone Encounter - Eugenie Cage - 12/03/2008 1:33 PM CDTMessage copied by EUGENIE CAGE on WedDec 03, 2008 1:33 PM ------ Message from: SARAH FERNANDEZ Created: WedDec 03, 2008 1:11 PM Will review at 12/12/08 at appt. documented in this encounter Plan of Treatment Not on file documented as of this encounter Visit Diagnoses Not on filedocumented in this encounter
--- OUTSIDE RECORDS SUMMARY | 2024-08-19 06:47 | XMS_ITS | Encounter Summary ---
Author Organization [facility] Address [address] [place] [address] Care Team Providers Care Marine Fuel Dock Attendant Name Role Phone Unavailable Primary Care Provider Unavailabl e Reason for Visit * Reason Onset Date Comments Medication Refill 09/26/2009 Encounter Details Date Type Department Care Team (Late st Contact Info) Description 09/26/2009 Refill [facility] Family Medicine - [facility] [address] [facility] [address] [place] [address] Ciro Fernandez, DO 107 [facility] [address] [place] [address] Social History Tobacco Use Types [...] * Telephone Encounter - Kay Jesus - 09/26/2009 11:[address] Fernandez oked. ONAL EHS MANAGER * Telephone Encounter - Luana Hwang - 09/26/2009 10:44 AM CST Pt says that Dr Fernandez told him that he could put off his labs and ov until October. If it is okay with he would like a 90 day supply sent to [facility]. If not okay call pt and let him know. ONAL EHS MANAGER documented in this encounter Plan of Treatment Not on file documented as of this encounter Visit Diagnoses Not on filedocumented in this encounter
--- OUTSIDE RECORDS SUMMARY | 2024-08-19 06:47 | XMS_ITS | Encounter Summary ---
Author Organization [facility] Address [address] [place] [address] Care Team Providers Care Assault Amphibious Vehicle Officer Name Role Phone Unavailable Primary Care Provider Unavailabl e Reason for Visit * Reason Onset Date Comments Medication Refill 09/08/2010 Encounter Details Date Type Department Care Team (Late st Contact Info) Description 09/08/2010 Refill [facility] Medicine - [facility] [address] [facility] [address] [place] [address] Ciro Fernandez, DO 107 [facility] [address] [place] [address] Osteoarthritis (Primary Dx) Social History Tobacco Use Types [...] as of this encounter Visit Diagnoses Diagnosis Osteoarthritis- Primary Osteoarthrosis, unspecified whether generalized or localized, unspecified site documented in this encounter
--- OUTSIDE RECORDS SUMMARY | 2024-08-19 06:47 | XMS_ITS | Encounter Summary ---
Author Organization [facility] Address [address] [place] [address] Care Team Providers Care Micrographics Services Supervisor Name Role Phone RomelcristopherInderjit Nayeli CHRISTIANSEN Primary Care Provider + Encounter Details Date Type Department Care Team (Late st Contact Info) Description 11/06/2008 Outpatient Historical [facility] DE[facility] Kelle Gant MD [address] [place] [address] Blood in Stool Social History [...] Name Priority Date/Time Associated Diagnosis Comments CT HEAD WO CONTRAST Timed Study 11/06/2008 9:59 AM CDT documented in this encounter Results * CT HEAD WO CONTRAST (11/06/2008 9:59 AM CDT) Anatomical Region Laterality Modality Head Other 11/06/2008 9:59 AM CDT Narrative 11/07/2008 8:52 AM CDT ? [facility] ? [address] ?[place], [place] ??[address] ?Admit Date: 11/06/2008 ?BRENDON ALDANA ?Sex: M ?Admit Prov: KELLE GANT ? Date: 1950 ?Primary Care Prov: TABATHA DRAPER ? CMRN: [id number] ?Room: MRI-A ?SSN: [id number] ? IMAGING SERVICES ?Ordering Prov: N/A ? Accession Number: [id number] ?Interpretation ? CT HEAD WITHOUT CONTRAST, 11/06/2008 ? Indication: History of blood clot removal at the age of 4 years with ? retained metal staple in the head. Evaluation prior to MRI exam. ? Technique: [address] images were acquired using standard protocol. ? Findings: ? Deformity of the calvarium with depression of the right parietal bone is ? sequela of previous injury or surgical changes. Additional area of thinning ? and deformity of the left parietal bone is also noted. A metallic surgical ? clip is present along the inner table of the calvarium just posterior to ? the left coronal suture near the left middle frontal gyrus. ? The brain parenchymal attenuation and wooten-white matter differentiation ? appear to be within normal limits without evidence of acute intracranial ? hemorrhage, mass effect, or infarct. Paranasal sinuses are aerated. Extra- ? axial fluid collection is not seen. Ventricular system is normal in size ? and configuration. ? Impression: ? 1. 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 ? 2. Retained metallic surgical clip along the inner table near the left ? coronal suture. ? . ? Dictated by: ??ESTEVAN ESPARZA ? 11/06/2008 10:19 ? Electronically signed by: ??ESTEVAN ESPARZA ? 11/07/2008 08:50 ? Transcribed: ??11/06/2008 10:28 ?[facility] Procedure Note Estevan Esparza - 11/07/2008 [facility] [address] [place], [place] [address] Admit Date: 11/06/2008 BRENDON ALDANA Sex: M Admit Prov: KELLE GANT Date: 1950 Primary Care Prov: TABATHA DRAPER CMRN: [id number] Room: [facility] SSN: [id number] IMAGING SERVICES Ordering Prov: N/A Interpretation CT HEAD WITHOUT CONTRAST, 11/06/2008 Indication: History of blood clot removal at the age of 4 yearswith retained metal staple in the head. Evaluation prior to MRI exam. Technique: [address] images were acquired using standardprotocol. Findings: Deformity of the calvarium with depression of the right parietal boneis sequela of previous injury or surgical changes. Additional area ofthinning and deformity of the left parietal bone is also noted. A metallicsurgical clip is present along the inner table of the calvarium just posteriorto the left coronal suture near the left middle frontal gyrus. The brain parenchymal attenuation and wooten-white matterdifferentiation appear to be within normal limits without evidence of acuteintracranial hemorrhage, mass effect, or infarct. Paranasal sinuses are aerated.Extra- axial fluid collection is not seen. Ventricular system is normal insize and configuration. Impression: 1. 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 2. Retained metallic surgical clip along the inner table near theleft coronal suture. . Dictated by: ESTEVAN ESPARZA 11/06/2008 10:19 Electronically signed by: ESTEVAN ESPARZA 11/07/2008 08:50 Transcribed: 11/06/2008 10:28 [facility] Kelle Gant MD CT ORDERABLES documented in this encounter Visit Diagnoses Diagnosis Blood in stool documented in this encounter Care Teams Micrographics Services Supervisor Relationship Specialty Start Date End Date Inderjit Narayan DO [address] [place] [address] PCP - General Family Practice 04/09/23 08/29/23 documented as of this encounter
--- OUTSIDE RECORDS SUMMARY | 2024-08-19 06:47 | XMS_ITS | Encounter Summary ---
Author Organization [facility] Address [address] [place] [address] Care Team Providers Care Automatic Steel Tie Adjuster Name Role Phone Unavailable Primary Care Provider Unavailabl e Reason for Visit * Reason Onset Date Comments Medication Refill 03/09/2011 Encounter Details Date Type Department Care Team (Late st Contact Info) Description 03/09/2011 Refill [facility] Medicine - [facility] [address] [place] [address] Ciro Fernandez, DO 107 [facility] [address] [place] [address] Social History Tobacco Use Types [...]
--- OUTSIDE RECORDS SUMMARY | 2024-08-19 06:47 | XMS_ITS | Encounter Summary ---
Author Organization [facility] Address [address] [place] [address] Care Team Providers Care Pulmonologist Name Role Phone Unavailable Primary Care Provider Unavailabl e Reason for Visit * Reason Onset Date Comments Medication Refill 03/22/2012 Encounter Details Date Type Department Care Team (Late st Contact Info) Description 03/22/2012 Refill [facility] Family Medicine - [facility] [address] [facility] [address] [place] [address] Ciro Fernandez DO [address] [facility] [address] [place] [address] Social History Tobacco Use Types [...] * Telephone Encounter - Delma Foster - 03/22/2012 9:12 AM CDT LM with patient to sweet pickle maker script here at office * Telephone Encounter - Kay Jesus - 03/22/2012 8:43 AM CDTFrom: BRENDON ALDANA To: Ciro Fernandez DO Sent: WedMar 22, 2012 7:14 AM Subject: Medication Renewal Request Original authorizing provider: DO Brendon Tom would like a refill of the following medications: pseudoephedrine (SUDOGEST) 30 mg Oral tablet [Ciro Fernandez DO] Preferred pharmacy: [id number] Comment: documented in this encounter Plan of Treatment Not on file documented as of this encounter Visit Diagnoses Not on filedocumented in this encounter
--- OUTSIDE RECORDS SUMMARY | 2024-08-19 06:47 | XMS_ITS | Encounter Summary ---
Author Organization [facility] Address [address] [place] [address] Care Team Providers Care District Superintendent Name Role Phone Unavailable Primary Care Provider Unavailabl e Encounter Details Date Type Department Care Team (Late st Contact Info) Description 10/03/2008 Orders Only [facility] Medicine - [facility] [address] [facility] [address] [place] [address] Ciro Fernandez DO 107 [facility] [address] [place] [address] Blood in Stool; Internal Hemorrhoid; Constipation Social History Tobacco Use Types Packs/Day Years [...] Procedure Name Priority Date/Time Associated Diagnosis Comments ENDOSCOPY, COLON, DIAGNOSTIC Routine 09/28/2008 Blood in Stool Internal Hemorrhoid Constipation documented in this encounter Results * ENDOSCOPY, COLON, DIAGNOSTIC (09/28/2008) Ciro Fernandez DO GI PROCEDURE [facility] documented in this encounter Visit Diagnoses Diagnosis Blood in stool Internal hemorrhoid Internal hemorrhoids without mention of complication Constipation Unspecified constipation documented in this encounter
--- OUTSIDE RECORDS SUMMARY | 2024-08-19 06:47 | XMS_ITS | Encounter Summary ---
Author Organization [facility] Address [address] [place] [address] Care Team Providers Care Slate Picker Name Role Phone Unavailable Primary Care Provider Unavailabl e Reason for Visit * Reason Comments Results labs and prescriptio n refills Encounter Details Date Type Department Care Team (Late st Contact Info) Description 12/12/2008 9:30 AM CDT [facility] [address] [facility] [address] [place] [address] Ciro Fernandez, DO [address] [facility] [place] [address] Essential Hypertension, Benign; Pure Hypercholesterolemia; Impaired Fasting Glucose; Encounter for Long-Term (Current) Use of Other Medications; Allergic Rhinitis; GERD (Gastroesophageal Reflux Disease) Social History Tobacco Use Types Packs/Day Years [...] Sign Reading Time Taken Comments Blood Pressure 140/90 12/12/2008 8:46 AM CDT Pulse 72 12/12/2008 8:46 AM CDT Temperature 36.9 ??C (98.5 ??F) 12/12/2008 8:46 AM CD T Respiratory Rate - - Oxygen Saturation - - Inhaled Oxygen Concentration - - Weight 98 kg (216 lb) 12/12/2008 8:46 AM CDT Height - - Body Mass Index - - documented in this encounter Progress Notes * Ciro Fernandez - 12/12/2008 1:05 PM CDT SUBJECTIVE: Brendon Aldana is a 58 y.o. male here to discuss medical issues including HTN and Lipids and labs Pt went to [place] was was off of his diet. IFG: new diagnosis Current medication(s) reviewed. Pt understands diagnosis Blood sugars are not being checked at home. Diabetic diet compliance: no Exercise compliance: no No change in vision. No sores on feet. No paresthesias of LE. Denies chest pain, palpitations, orthopnea, pnd, pedal edema, shortness of breath. No polyuria or polydipsia. No fatigue. Reviewed overall treatment plan, including diet and exercise, and prevention strategies. Last labs reviewed with patient. ALLERGIES She also complains of increased allergy symptoms. Frequency of symptoms: intermittent. Patient has had previous treatment which has been helpful Patient denies side effects of the medications used Patient c/o clear rhinorrhea, nasal congestion and postnasal drip Hypertension: Current medication(s) reviewed. Taking and tolerating medications well. Blood pressures at home/stores/firehouse are running same has at the office. Hypertensive diet compliance: no Low Sodium Hypercholesterolemia: Current medication(s) reviewed. Taking and tolerating medications well. Cholesterol diet compliance: no Exercise compliance: no Reviewed overall treatment plan, [...] for skin rashes or unusual skin lesions OBJECTIVE: BP 140/90 Pulse 72 Temp 98.5 ??F (36.9 ??C) Wt 216 lb (97.977 kg) Appearance: alert, well appearing, and in [...] Psych: Alaina Olivas was seen today for results. Diagnoses and associated orders for this visit: - Essential hypertension, benign - Cmp -- Future - Protein/creatinine ratio, random urine -- Future - Cmp - Protein/creatinine ratio, random urine Benicar - Pure hypercholesterolemia - Cmp -- Future - Cmp vytorin - Impaired fasting glucose - Cmp -- Future - Cmp The patient is asked to make an attempt to improve diet and exercise patterns to aid in medical management of this problem. Discussed carbs in detail - Encounter for long-term (current) use of other medications - Cmp -- Future - Protein/creatinine ratio, random urine -- Future - Cmp - Protein/creatinine ratio, random urine - Allergic rhinitis - Fexofenadine-pseudoephedrine sr 180 mg-240 mg 24 hr tab -- Take 1 Tab by mouth daily. - Gerd (gastroesophageal reflux disease) - Omeprazole magnesium 20 mg tab, delayed release -- Take 1 Tab by mouth daily. Discussed Risks, Benefits and Alternatives of the current treatment regimen. Check BP's often and report Highs and Lows. The patient is asked to make an attempt to improve diet and exercise patterns to aid in medical management of this problem. F/u in 3-6 months documented in this encounter Plan of Treatment Not on file documented as of this encounter Procedures Procedure Name Priority Date/Time Associated Diagnosis Comments PROTEIN/CREATININE RATIO, RANDOM URINE Routine 03/18/2009 11:00 AM CDT Essential Hypertension, Benign Encounter for Long-Term (Current) Use of Other Medications COMPREHENSIVE METABOLIC PANEL Routine 03/17/2009 9:00 AM CDT Pure Hypercholesterolemi a Essential Hypertension, Benign Encounter for Long-Term (Current) Use of Other Medications Impaired Fasting Glucose documented in this encounter Results * PROTEIN/CREATININE RATIO, RANDOM URINE (03/18/2009 11:00 AM CDT) Pathologist [facility] Creatinine, Urine 163 20 - 370 mg/dL [facility] [employer] [facility] PROTEIN TOTAL, URINE 55 22 - 128 mg/g creat [facility] [employer] [facility] PROTEIN TOTAL, URINE 9 5 - 25 mg/dL [facility] [employer] [facility] Comment: Test Performed at: [employer] [facility] [employer] ??[phone] GRAHAM HUSSEIN MD Urine specimen (specimen) Ciro Fernandez DO URINE ORDERABLES INTERFACE SYSTEM Refer to clinic/hospital department [facility] [address] [place] [address] * (ABNORMAL) COMPREHENSIVE METABOLIC PANEL (03/17/2009 9:00 AM CDT) Pathologist [facility] GLUCOSE 100(H) 65 - 99 mg/dL [facility] Comment:FASTING REFERENCE IN TERVAL BUN 14 7 - 25 mg/dL [facility] CREATININE 0.90 0.76 - 1.46 mg/dL [facility] [employer] [facility] GFR >60 > OR = 60 mL/min/1 .73m2 [facility] [employer] [facility] GFR, >60 > OR = 60 mL/min/1 .73m2 [facility] [employer] [facility] BUN/CREAT RATIO NOT APPLICABLE 6 - 22 (calc) [facility] [employer] [facility] Comment: BUN/CREATININE RATIO IS NOT REPORTED WHEN THE BUN AND CREATININE VALUES ARE WITHIN NORMAL LIMITS. SODIUM 139 135 - 146 mmol/L [facility] POTASSIUM 4.5 3.5 - 5.3 mmol/L [facility] CHLORIDE 105 98 - 110 mmol/L [facility] CO2 26 21 - 33 mmol/L [facility] CALCIUM 9.4 8.6 - 10.2 mg/dL [facility] TOTAL PROTEIN 7.0 6.2 - 8.3 g/dL [facility] ALBUMIN 4.2 3.6 - 5.1 g/dL [facility] GLOBULIN 2.8 2.1 - 3.7 g/dL (calc) [facility] ALBUMIN/GLOBULI N RATIO 1.5 1.0 - 2.1 (calc) [facility] BILIRUBIN TOTAL 0.5 0.2 - 1.2 mg/dL [facility] ALKALINE PHOSPHATASE 62 40 - 115 U/L [facility] AST 24 10 - 35 U/L [facility] ALT 45 9 - 60 U/L [facility] Comment: Test Performed at: [employer] [place] [address] [place], [place] ??[phone] GRAHAM HUSSEIN MD Blood specimen (specimen) Ciro Fernandez DO CHEMISTRY ORDERABLES INTERFACE SYSTEM Refer to clinic/hospital department [facility] [address] [place] [address] documented in this encounter Visit Diagnoses Diagnosis Essential hypertension, benign Pure hypercholesterolemia Impaired fasting glucose Encounter for long-term (current) use of other medications Allergic rhinitis Allergic rhinitis, cause unspecified GERD (gastroesophageal reflux disease) Esophageal reflux documented in this encounter
--- OUTSIDE RECORDS SUMMARY | 2024-08-19 06:47 | XMS_ITS | Encounter Summary ---
Author Organization [facility] Address [address] [place] [address] Care Team Providers Care Patient Svcs Mgr Name Role Phone Unavailable Primary Care Provider Unavailabl e Reason for Visit * Reason Comments Hoarse sore throat and coug william Encounter Details Date Type Department Care Team (Late st Contact Info) Description 04/22/2009 3:30 PM CDT Office Visit [facility] Medicine - [facility] [address] [facility] [address] [facility] [address] [place] [address] Ciro Fernandez, DO [address] [facility] [address] [place] [address] Acute Pharyngitis (Primary Dx); Cough; Allergic Rhinitis Social History Tobacco Use Types Packs/Day Years [...] Sign Reading Time Taken Comments Blood Pressure 110/74 04/22/2009 3:28 PM CDT Pulse 64 04/22/2009 3:28 PM CDT Temperature 36.1 ??C (96.9 ??F) 04/22/2009 3:28 PM CD T Respiratory Rate - - Oxygen Saturation - - Inhaled Oxygen Concentration - - Weight 93.4 kg (206 lb) 04/22/2009 3:28 PM CDT Height - - Body Mass Index - - documented in this encounter Progress Notes * Ciro Fernandez - 04/22/2009 3:50 PM CDT Subjective: Brendon Aldana 59 y.o. male presents with a 4 week hx of allergy symptoms. Frequency of symptoms: persistent. Patient has had previous treatment which has been helpful. intranasal steroids and oral antihistamines Patient denies side effects of the medications used Patient c/o clear rhinorrhea, nasal congestion, sneezing and postnasal drip Patient denies chest pain or SOB. No N/V/D. No other symptoms. Negative Sick Contacts Negative Fevers Review of Systems - General ROS: negative [...] Neurological ROS: negative for TIA or stroke symptoms. Past Medical/Surgical/Social/Family History reviewed as well as Allergies and Medications. Objective: BP 110/74 Pulse 64 Temp(Src) 96.9 ??F (36.1 ??C) (Temporal) Wt 206 lb (93.441 kg) Gen'l: NAD HEENT: Perrla, eomi. Sinuses nontender to palpation. Throat erythematous without exudates. +PND pale, swollen nasal turbinates Neck: Supple. No lymphadenopathy. No meningeal signs. Negative Brudinski, Negative Kerkings Lungs: Clear, no wheezing. CV: RRR. No murmur. Ext: No edema Skin: No rash A/P: Brendon was seen today for hoarse. Diagnoses and associated orders for this visit: - Acute pharyngitis - Poc rapid strep a - Cough - Montelukast 10 mg tab -- Take 1 Tab by mouth daily. - Chlorpheniramine-hydrocodone sr 8 mg-10 mg/5 ml oral 12 hr susp -- Take 5 mL by mouth every 12 hours as needed for Cough. Do not drive, drink or work while being on this medicine. It will make you drowsy. - Benzonatate 100 mg cap -- Take 1 Cap by mouth every 4 hours as needed for Cough. - Allergic rhinitis - Montelukast 10 mg tab -- Take 1 Tab by mouth daily. If continues may need imaging. Continue with Allergy meds. OTC Meds as discussed Increase Fluids Rest See diagnosis and orders. Discussed Risks, Benefits and Alternatives of the [...] in this encounter Visit Diagnoses Diagnosis Acute pharyngitis- Primary Cough Allergic rhinitis Allergic rhinitis, cause unspecified documented in this encounter
--- OUTSIDE RECORDS SUMMARY | 2024-08-19 06:47 | XMS_ITS | Encounter Summary ---
Author Organization [facility] Address [address] [place] [address] Care Team Providers Care Shipyard Painter Name Role Phone Unavailable Primary Care Provider Unavailabl e Reason for Visit * Reason Onset Date Comments Other 12/04/2009 Update on cough Encounter Details Date Type Department Care Team (Late st Contact Info) Description 12/04/2009 Telephone [facility] Family Medicine - [facility] [address] [facility] [address] [place] [address] Ciro Fernandez, DO [address] [facility] [address] [place] [address] Other (Update on cough) Social History Tobacco Use Types Packs/Day Years [...] * Telephone Encounter - Kay Jesus - 12/04/2009 5:[address] Fernandez states he would like to get chest xray. Pt notified. He is going to check with his ins andwill call us back on where to send the order. * Telephone Encounter - Luana Hwang - 12/04/2009 3:39 PM CDT Pt has been taking all 3 meds but still feels about the same. He says that he is still coughing andstill has a lot of congestion and is very hoarse by the end of the day. documented in this encounter Plan of Treatment Not on file documented as of this encounter Results * XR CHEST PA AND LATERAL (12/05/2009 5:05 PM CDT) Anatomical Region Laterality Modality Chest Computed Radiogr aphy 12/05/2009 4:54 PM CDT Impressions 12/06/2009 10:21 AM CDT IMPRESSION: No active pulmonary disease. Narrative 12/06/2009 10:21 AM CDT Chest, PA and lateral Date of exam: ??12/05/09 History: Cough Findings: No infiltrate, pleural effusion or pneumothorax is present. Heart size, mediastinum and pulmonary vascularity are normal. Procedure Note Darrel Patrick MD - 12/06/2009 Chest, PA and lateral Date of exam: 12/05/09 History: Cough Findings: No infiltrate, pleural effusion or pneumothorax is present. Heart size, mediastinum and pulmonary vascularity are normal. IMPRESSION IMPRESSION: No active pulmonary disease. Ciro Fernandez DO DIAGNOSTIC IMAGING O RDERABLES documented in this encounter Visit Diagnoses Diagnosis Cough- Primary Cough documented in this encounter
--- OUTSIDE RECORDS SUMMARY | 2024-08-19 06:47 | XMS_ITS | Encounter Summary ---
Author Organization [facility] Address [address] [place] [address] Care Team Providers Care Heating Equipment Installer Name Role Phone Unavailable Primary Care Provider Unavailabl e Reason for Visit * Reason Onset Date Comments Results 10/13/2010 Encounter Details Date Type Department Care Team (Late st Contact Info) Description 10/13/2010 Telephone [facility] Family Medicine - [facility] [place] [address] [facility] [address] [place] [address] Ciro Fernandez, DO [address] [place] [address] Results Social History Tobacco Use [...] encounter Miscellaneous Notes * Telephone Encounter - Boo Almendarez - 10/13/2010 3:12 PM CST PATIENT NOTIFIED BW BI DEVELOPER * Telephone Encounter - Boo Almendarez - 10/13/2010 3:06 PM CST Message copied by BOO ALMENDAREZ on WedOct 13, 2010 3:06 PM ------ Message from: SARAH FERNANDEZ Created: WedOct 13, 2010 1:49 PM Prostate level is normal BW BI DEVELOPER documented in this encounter Plan of Treatment Not on file documented as of this encounter Visit Diagnoses Not on filedocumented in this encounter
--- OUTSIDE RECORDS SUMMARY | 2024-08-19 06:47 | XMS_ITS | Encounter Summary ---
Author Organization [facility] Address [address] [place] [address] Care Team Providers Care Birthing Nurse Name Role Phone Unavailable Primary Care Provider Unavailabl e Reason for Visit * Reason Onset Date Comments Medication Refill 07/14/2011 Encounter Details Date Type Department Care Team (Late st Contact Info) Description 07/14/2011 Refill [facility] Medicine - [facility] [place] [address] [facility] [address] [place] [address] Ciro Fernandez, DO [address] [facility] [address] [place] [address] Esophageal reflux (Primary Dx) Social [...]
--- OUTSIDE RECORDS SUMMARY | 2024-08-19 06:47 | XMS_ITS | Encounter Summary ---
Author Organization [facility] Address [address] [facility] Attn: Epic Prelude ADT [place] [address] Care Team Providers Care Executive Director Sheltered Workshop Name Role Phone Unavailable Primary Care Provider Unavailabl e Encounter Details Date Type Department Care Team (Late st Contact Info) Description 12/03/2008 Outpatient Historical [facility] [address] [place] [address] ATTN: [place] [address] Provider, Historical Social History Tobacco Use Types [...] Procedure Name Priority Date/Time Associated Diagnosis Comments ALT Routine 12/03/2008 9:00 AM CDT AST Routine 12/03/2008 9:00 AM CDT PSA Routine 12/03/2008 9:00 AM CDT LIPID PANEL Routine 12/03/2008 9:00 AM CDT BASIC METABOLIC PANEL Routine 12/03/2008 9:00 AM CDT documented in this encounter Results * PSA (12/03/2008 9:00 AM CDT) PSA 0.2 < OR = 4.0 ng/mL [employer] [facility] Comment: THIS TEST WAS PERFORMED USING THE SIEMENS (imbookin (Pogby)) CHEMILUMINESCENT METHOD. VALUES OBTAINED FROM DIFFERENT ASSAY METHODS CANNOT BE USED INTERCHANGEABLY. PSA LEVELS, REGARDLESS OF VALUE, SHOULD NOT BE INTERPRETED ABSOLUTE EVIDENCE OF THE PRESENCE OR ABSENCE OF DISEASE. REPORT COMMENT: FASTING Test Performed at: [employer] [facility] Software[address] ??[phone] GRAHAM HUSSEIN MD Ciro Fernandez DO CHEMISTRY ORDERABLES Performing Organization Address [facility] Phone Number INTERFACE SYSTEM Refer to clinic/hospital department [address] [address] * (ABNORMAL) BASIC METABOLIC PANEL (12/03/2008 9:00 AM CDT) GLUCOSE 110(H) 65 - 99 mg/dL [facility] Comment:FASTING REFERENCE IN TERVAL BUN 18 7 - 25 mg/dL [facility] [employer] [facility] CREATININE 0.90 0.76 - 1.46 mg/dL [facility] [employer] [facility] GFR >60 > OR = 60 mL/min/1 .73m2 [facility] [employer] [facility] GFR, >60 > OR = 60 mL/min/1 .73m2 [facility] [employer] [facility] BUN/CREAT RATIO NOT APPLICABLE 6 - 22 (calc) [facility] Comment: BUN/CREATININE RATIO IS NOT REPORTED WHEN THE BUN AND CREATININE VALUES ARE WITHIN NORMAL LIMITS. SODIUM 141 135 - 146 mmol/L [facility] POTASSIUM 4.6 3.5 - 5.3 mmol/L [employer] [facility] CHLORIDE 106 98 - 110 mmol/L [employer] [facility] CO2 25 21 - 33 mmol/L [facility] CALCIUM 9.6 8.6 - 10.2 mg/dL [facility] [employer] [facility] Comment: Test Performed at: [employer] [address] ??[phone] GRAHAM HUSSEIN MD Ciro Fernandez DO CHEMISTRY ORDERABLES Performing Organization Address [facility] de Phone Number INTERFACE SYSTEM Refer to clinic/hospital department [address] [address] * ALT (12/03/2008 9:00 AM CDT) ALT 38 9 - 60 U/L [facility] Comment: Test Performed at: [facility] [address] ??[phone] GRAHAM HUSSEIN MD Ciro Fernandez DO CHEMISTRY ORDERABLES Performing Organization Address [facility] Phone Number INTERFACE SYSTEM Refer to clinic/[place] [address] * AST (12/03/2008 9:00 AM CDT) AST 24 10 - 35 U/L [facility] Comment: Test Performed at: [facility] [address] ??[phone] GRAHAM HUSSEIN MD Ciro Fernandez DO CHEMISTRY ORDERABLES Performing Organization Address [facility] Phone Number INTERFACE SYSTEM Refer to clinic/[place] [address] * (ABNORMAL) LIPID PANEL (12/03/2008 9:00 AM CDT) Pathologist [facility] TRIGLYCERIDE 100 <150 mg/dL [facility] Comment: Test Performed at: [facility] [address] ??[phone] GRAHAM HUSSEIN MD CHOLESTEROL 122(L) 125 - 200 mg/dL [facility] [employer] [facility] HDL 43 > OR = 40 mg/dL [facility] [employer] [facility] LDL CALCULATED 59 <130 mg/dL (calc) [facility] [employer] [facility] Comment: DESIRABLE RANGE <100 MG/DL FOR PATIENTS WITH CHD OR DIABETES AND <70 MG/DL FOR DIABETIC PATIENTS WITH KNOWN HEART DISEASE. CHOL/HDL RATIO 2.8 < OR = 5.0 (calc) [facility] [employer] [facility] Ciro Fernandez DO CHEMISTRY ORDERABLES Performing Organization Address [facility] Phone Number INTERFACE SYSTEM Refer to clinic/hospital department [address] [facility] [address] documented in this encounter Visit Diagnoses Not on filedocumented in this encounter
--- OUTSIDE RECORDS SUMMARY | 2024-08-19 06:47 | XMS_ITS | Encounter Summary ---
Author Organization [facility] Address [address] [place] [address] Care Team Providers Care Experience Planning Strategist Name Role Phone Unavailable Primary Care Provider Unavailabl e Reason for Visit * Reason Onset Date Comments Medication Refill 12/17/2009 Encounter Details Date Type Department Care Team (Late st Contact Info) Description 12/17/2009 Refill [facility] [facility] [address] [place] [address] Ciro Fernandez, DO [address] [facility] [address] [place] [address] Social History Tobacco Use Types [...]
--- OUTSIDE RECORDS SUMMARY | 2024-08-19 06:47 | XMS_ITS | Encounter Summary ---
Author Organization [facility] Address [address] [place] [address] Care Team Providers Care Senior It Recruiter Name Role Phone Unavailable Primary Care Provider Unavailabl e Encounter Details Date Type Department Care Team (Latest Contact Info) Description 12/05/2009 4:49 PM CDT - 12/05/2009 11:59 PM CDT Hospital Encounter [facility] Imaging Services [facility] [address] [facility] [address] [place] [address] Ciro Fernandez, 107 [facility] [address] [place] [address] Discharge Disposition: Home or Self [...] Sig Dispensed Refills Start Date End Date amoxicillin (AMOXIL) 500 mg Oral TabIndications:Acute sinusitis Take 1 Tab by mouth every 8 hours for 10 days. 30 Tab 0 11/27/2009 12/07/2009 ezetimibe-simvastatin (VYTORIN 05/28) 10-20 mg Oral tablet Take 1 Tab by mouth daily. 90 Tab 0 09/26/2009 12/27/2009 fexofenadine-pseudoephedr ine SR 12 hour (ANGELICA-D 12 HOUR) 60-120 mg Oral tablet Take 1 Tab by mouth 2 times daily. 180 Tab 2 09/05/2009 12/27/2009 olmesartan (BENICAR) 20 mg Oral TabIndications:Essential hypertension, benign Take 1 Tab by mouth daily. 90 Tab 3 03/22/2009 03/19/2010 ibuprofen (MOTRIN) 800 mg Oral TabIndications:Osteoarthr itis Take 1 Tab by mouth every 6 hours as needed for Pain. 60 Tab 3 03/22/2009 12/27/2009 omeprazole magnesium (PRILOSEC OTC) 20 mg Oral TbEC Take 1 Tab by mouth daily. 30 Tab 5 01/14/2009 12/17/2009 documented as of this encounter Plan of Treatment Not on file documented as of this encounter Procedures Procedure Name Priority Date/Time Associated Diagnosis Comments XR CHEST PA AND LATERAL 2 VW Routine 12/05/2009 5:05 PM CDT Cough documented in this encounter [...]
--- OUTSIDE RECORDS SUMMARY | 2024-08-19 06:47 | XMS_ITS | Encounter Summary ---
Author Organization [facility] Address [address] [place] [address] Care Team Providers Care Bore Mill Operator Name Role Phone Unavailable Primary Care Provider Unavailabl e Reason for Visit * Reason Comments Follow Up labs Encounter Details Date Type Department Care Team (Latest Contact Info) Description 12/27/2009 3:15 PM CDT Office Visit [facility] Medicine - [facility] [address] [facility] [address] [place] [address] Ciro Fernandez DO [address] [facility] [address] [place] [address] Osteoarthritis (Primary Dx); Essential Hypertension, Benign; Pure Hypercholesterolemia; Erectile Dysfunction Social History Tobacco Use Types Packs/Day Years [...] Sign Reading Time Taken Comments Blood Pressure 122/76 12/27/2009 3:18 PM CDT Pulse 76 12/27/2009 3:18 PM CDT Temperature 36.9 ??C (98.4 ??F) 12/27/2009 3:18 PM CD T Respiratory Rate - - Oxygen Saturation - - Inhaled Oxygen Concentration - - Weight 97.1 kg (214 lb) 12/27/2009 3:18 PM CDT Height - - Body Mass Index - - documented in this encounter Progress Notes * Ciro Fernandez DO - 12/28/2009 11:48 AM CDT SUBJECTIVE: Brendon Aldana is a 59 y.o. male here to discuss medical issues [...] HEWAS TAKING RX IBUPROFEN 800MG FOR YEARS However now only PRN USE ONLY. PT DENIES STOMACH PROBLEMS, GI BLEEDING, PROBLEMS WITH KIDNEYS AND WANTS TO continue on the ibuprofen. These have been [id number] in nature, gradual in onset. These pains [...] prevention strategies. Last labs reviewed with patient. The patient also wishes to address some reduction in erectile function, and wants to know about Viagra, Levitra or Cialis. He is reassured that erectile dysfunction is very common, often temporary. This group of medications is usually effective and generally safe, but expensive and sometimes not covered by insurance. Side effects are discussed. He does not have heart disease, does not seem at risk for CAD, and is not using nitrates. He is informed deaths have occurred in men taking these medicines concurrently with nitrates and he should avoid that combination at any time. He is to tell C/ED or if he goes to any other physician's office that he is taking these medicines and the last time he took them. Brief sexual counseling is provided. The proper use is discussed. He will return for specific follow up of this problem as needed if symptoms persist or he doesn't respond to the medication. Exam is deferred at today's visit; will be done later if symptoms persist. Past Medical/Surgical/Social/Family History reviewed as well as [...] or unusual skin lesions noted OBJECTIVE: BP 122/76 Pulse 76 Temp(Src) 98.4 ??F (36.9 ??C) (Temporal) Wt 214 lb (97.07 kg) Appearance: alert, well appearing, and in [...] Diagnoses and associated orders for this visit: Osteoarthritis - ibuprofen (MOTRIN) tablet; Take 1 Tab by mouth every 6 hours as needed for Pain. Essential hypertension, benign - COMPREHENSIVE METABOLIC PANEL; Future - PROTEIN , RANDOM URINE; Future - COMPREHENSIVE METABOLIC PANEL - PROTEIN , RANDOM URINE Pure hypercholesterolemia - EZETIMIBE-SIMVASTATIN 10 MG-20 MG TAB; Take 1 Tab by mouth daily. - LIPID PANEL; Future - LIPID PANEL Erectile dysfunction - vardenafil (LEVITRA) tablet; Take 1 Tab by mouth 1 time daily as needed. Other Orders - ANGELICA-D 24 HOUR 180 MG-240 MG TAB; Take 1 Tab by mouth daily. TAKE Ibuprofen WITH FOOD IN AM - DISCUSSED RISKS INCLUDING CV - RARE USE Check BP on a regular basis and report highs and lows. Discussed Risks, Benefits and Alternatives of the current treatment regimen. F/u in 6 months Patient will discuss ED medicine with and call if he would like it. documented in this encounter Plan of Treatment Not on file documented as of this encounter Procedures Procedure Name Priority Date/Time Associated Diagnosis Comments PROTEIN , RANDOM URINE Routine 09/06/2010 7:24 AM TEACHING ARTIST Essential hypertension, benign LIPID PANEL Routine 09/06/2010 7:24 AM TEACHING ARTIST Pure hypercholesterolemia COMPREHENSIVE METABOLIC PANEL Routine 09/06/2010 7:24 AM TEACHING ARTIST Essential hypertension, benign documented in this encounter Results * PROTEIN , RANDOM URINE (09/06/2010 7:24 AM TEACHING ARTIST) Creatinine, Urine 186 20 - 370 mg/dL [facility] PROTEIN TOTAL, URINE 54 22 - 128 mg/g creat [facility] PROTEIN TOTAL, URINE 10 5 - 25 mg/dL [facility] Comment: Test Performed at: [facility] [id number] [place] [address] ??[phone] MINO ZAMAN DO,MPH Urine specimen (specimen) 09/06/2010 7:24 AM TEACHING ARTIST Ciro Fernandez DO URINE ORDERABLES INTERFACE SYSTEM Refer to clinic/hospital department [facility] [address] [place] [address] * COMPREHENSIVE METABOLIC PANEL (09/06/2010 7:24 AM TEACHING ARTIST) GLUCOSE 97 65 - 99 mg/dL [facility] Comment:Fasting reference in terval BUN 13 7 - 25 mg/dL [facility] CREATININE 0.91 0.76 - 1.46 mg/dL [facility] GFR >60 > OR = 60 mL/min/1 .73m2 [facility] GFR, >60 > OR = 60 mL/min/1 .73m2 [facility] BUN/CREAT RATIO NOT APPLICABLE 6 - 22 (calc) [facility] SODIUM 138 135 - 146 mmol/L [facility] [employer] [facility] POTASSIUM 4.6 3.5 - 5.3 mmol/L [facility] [employer] [facility] CHLORIDE 102 98 - 110 mmol/L [facility] [employer] [facility] CO2 25 21 - 33 mmol/L [facility] DIAGNOSTICS [facility] CALCIUM 9.5 8.6 - 10.2 mg/dL [facility] TOTAL PROTEIN 7.5 6.2 - 8.3 g/dL [facility] ALBUMIN 4.5 3.6 - 5.1 g/dL [facility] [employer] [facility] GLOBULIN 3.0 2.1 - 3.7 g/dL (calc) [facility] ALBUMIN/GLOBULI N RATIO 1.5 1.0 - 2.1 (calc) [facility] BILIRUBIN TOTAL 0.6 0.2 - 1.2 mg/dL [facility] [employer] [facility] ALKALINE PHOSPHATASE 70 40 - 115 U/L [facility] AST 32 10 - 35 U/L [facility] ALT 46 9 - 60 U/L [facility] Comment: Test Performed at: [facility] [place] [address] [place], [place] ??[phone] MINO ZAMAN DO,MPH Blood specimen (specimen) 09/06/2010 7:24 AM TEACHING ARTIST Ciro Fernandez DO CHEMISTRY ORDERABLES INTERFACE SYSTEM Refer to clinic/hospital department [facility] [employer] [facility] [employer] [facility] [address] [place] [address] * LIPID PANEL (09/06/2010 7:24 AM TEACHING ARTIST) CHOLESTEROL 137 125 - 200 mg/dL [facility] Comment: Test Performed at: [facility] [address] [place], [place] ??[phone] MINO ZAMAN DO,MPH HDL 43 > OR = 40 mg/dL [facility] TRIGLYCERIDE 108 <150 mg/dL [facility] LDL CALCULATED 72 <130 mg/dL (calc) [facility] Comment: Desirable range <100 mg/dL for patients with CHD or diabetes and <70 mg/dL for diabetic patients with known heart disease. CHOL/HDL RATIO 3.2 < OR = 5.0 (calc) [facility] Blood specimen (specimen) 09/06/2010 7:24 AM TEACHING ARTIST Ciro Fernandez DO CHEMISTRY ORDERABLES INTERFACE SYSTEM Refer to clinic/hospital department [facility] [address] [place] [address] documented in this encounter Visit Diagnoses Diagnosis Osteoarthritis- Primary Osteoarthrosis, unspecified whether generalized or localized, unspecified site Essential hypertension, benign Pure hypercholesterolemia Erectile dysfunction Impotence of organic origin documented in this encounter
--- OUTSIDE RECORDS SUMMARY | 2024-08-19 06:47 | XMS_ITS | Encounter Summary ---
Author Organization [facility] Address [address] [place] [address] Care Team Providers Care Tunnel Elastic Operator Chainstitch Name Role Phone Unavailable Primary Care Provider Unavailabl e Reason for Visit * Reason Onset Date Comments Allergic Reaction 11/12/2009 Encounter Details Date Type Department Care Team (Late st Contact Info) Description 11/12/2009 Telephone [facility] Family Medicine - [facility] [address] [facility] [address] [place] [address] Ciro Fernandez, DO [address] [facility] [address] [place] [address] Allergic Reaction Social History Tobacco Use Types Packs/Day [...] * Telephone Encounter - Kay Jesus - 11/12/2009 10:[address] Fernandez states to dc bactrim and start zpak. Sent script. Pt notified. * Telephone Encounter - uLana Hwang - 11/12/2009 9:50 AM CDT Pt took abx at 5pm yesterday and at 5am today. He has a blotchy rash all over. He feels fine, notitchy. Advised pt not to take anymore and to take a dose of OTC benadryl or zyrtec. documented in this encounter Plan of Treatment Not on file documented as of this encounter Visit Diagnoses Not on filedocumented in this encounter
--- OUTSIDE RECORDS SUMMARY | 2024-08-19 06:47 | XMS_ITS | Encounter Summary ---
Author Organization Address [address] [place] [address] Care Team Providers Care Enterprise Sales Person Name Role Phone Unavailable Primary Care Provider Unavailabl e Reason for Visit * Reason Onset Date Comments Results 12/06/2009 Encounter Details Date Type Department Care Team (Late st Contact Info) Description 12/06/2009 Telephone [facility] [address] [facility] [address] [place] [address] Ciro Fernandez, DO [address] [facility] [address] [place] [address] Results Social History Tobacco Use [...] encounter Miscellaneous Notes * Telephone Encounter - Traci Kat - 12/06/2009 10:55 AM CDT Patient notified * Telephone Encounter - Traci Kat - 12/06/2009 10:54 AM CDT Message copied by TRACI KAT on WedDec 06, 2009 10:54 AM ------ Message from: SARAH FERNANDEZ Created: WedDec 06, 2009 10:25 AM CXR is normal. documented in this encounter Plan of Treatment Not on file documented as of this encounter Visit Diagnoses Not on filedocumented in this encounter
--- OUTSIDE RECORDS SUMMARY | 2024-08-19 06:47 | XMS_ITS | Encounter Summary ---
Author Organization [facility] Address [address] [place] [address] Care Team Providers Care Rfid Strategist Name Role Phone Unavailable Primary Care Provider Unavailabl e Reason for Visit * Reason Onset Date Comments Medication Refill 03/21/2010 Encounter Details Date Type Department Care Team (Late st Contact Info) Description 03/21/2010 Refill [facility] Family Medicine - [facility] [address] [facility] [address] [place] [address] Ciro Fernandez, DO [address] [facility] [address] [place] [address] Essential Hypertension, Benign (Primary Dx) Social History Tobacco Use Types [...] encounter Miscellaneous Notes * Telephone Encounter - Day oRsen - 03/21/2010 3:18 PM CDT Pt requesting refill of Benicar be sent to [email or web address]. documented in this encounter Plan of Treatment Not on file documented as of this encounter Visit Diagnoses Diagnosis Essential hypertension, benign- Primary documented in this encounter
--- OUTSIDE RECORDS SUMMARY | 2024-08-19 06:47 | XMS_ITS | Encounter Summary ---
Author Organization [facility] Address [address] [place] [address] Care Team Providers Care Chair Caner Name Role Phone Unavailable Primary Care Provider Unavailabl e Reason for Visit * Reason Comments Cough sinus drainage, give n zithromax x 2 wks ago still not feeling better. Encounter Details Date Type Department Care Team (Late st Contact Info) Description 11/27/2009 4:45 PM CDT Office Visit [facility] [address] [facility] [address] [place] [address] Ciro Fernandez DO [address] [facility] [address] [place] [address] Acute Sinusitis; Allergic Rhinitis; Cough Social History Tobacco Use Types Packs/Day [...] Reading Time Taken Comments Blood Pressure 132/78 11/27/2009 4:40 PM CDT Pulse 80 11/27/2009 4:40 PM CDT Temperature 37.2 ??C (99 ??F) 11/27/2009 4:40 PM CDT Respiratory Rate - - Oxygen Saturation - - Inhaled Oxygen Concentration - - Weight 96.6 kg (213 lb) 11/27/2009 4:40 PM CDT Height - - Body Mass Index - - documented in this encounter Progress Notes * Ciro Fernandez DO - 11/27/2009 4:56 PM CDT Subjective: Brendon Aldana 59 y.o. male presents with a 3 week history of cough, sore throat, postnasal discharge, MORALES. Dry cough - worse during day - improved at night. Tried nasal steroids and over the counter antihistamines OTC cough/cold product of patient's choicePRN and fluids and rest with no improvement. Patient denies chest pain or SOB. No N/V/D. Positive ROS for fatigue. No other symptoms. Negative Sick Contacts Negative Fevers positive for history of allergies. Past Medical/Surgical/Social/Family History reviewed as well as Allergies and Medications. Objective: BP 132/78 Pulse 80 Temp(Src) 99 ??F (37.2 ??C) (Temporal) Wt 213 lb (96.616 kg) Gen'l: NAD HEENT: Perrla, eomi. Sinuses tender to palpation over the bilateral maxillary sinuses. Throat erythematous without exudates. pale, swollen, edematous nasal turbinates. yellow and green Nasal Discharge. Ears Normal. Neck: Supple. No lymphadenopathy. No meningeal signs. Negative Brudinski, Negative Kernigs Lungs: Clear to auscultation bilaterally - tight breathing, good effort. Improved respiratory aeration after albuterol nebulizer. CV: RRR. No murmur. Ext: No edema Skin: No rash noted on examination. A/P: Brendon was seen today for cough. Diagnoses and associated orders for this visit: Acute sinusitis - amoxicillin (AMOXIL) tablet; Take 1 Tab by mouth every 8 hours for 10 days. Allergic rhinitis Cough - ADVAIR DISKUS 250 MCG-50 MCG/DOSE FOR INHALATION; Take 1 Puff by inhalation 2 times daily. - BENZONATATE 200 MG CAP; Take 1 Cap by mouth 3 times daily as needed for Cough. continue with allergy medicines. OTC Meds as discussed Increase Fluids and [...]
--- OUTSIDE RECORDS SUMMARY | 2024-08-19 06:47 | XMS_ITS | Encounter Summary ---
Author Organization [facility] Address [address] [place] [address] Care Team Providers Care Egg Processing Supervisor Name Role Phone Unavailable Primary Care Provider Unavailabl e Reason for Visit * Reason Onset Date Comments Blood Pressure Check 09/15/2010 Encounter Details Date Type Department Care Team (Late st Contact Info) Description 09/15/2010 Telephone [facility] Family Medicine - [facility] Abundio Yuan [address] [facility] [address] [place] [address] Ciro Fernandez, DO [address] [facility] [address] [place] [address] Blood Pressure Check Social History Tobacco Use Types Packs/Day Years [...] * Telephone Encounter - Kay Jesus - 09/15/2010 4:48 PM CST Patient faxed over blood pressure readings. Dr Fernandez states to change to Benicar/hctz 28/07.5. Keeptaking blood pressures and fax again with reading. Call with any highs or lows. Script sent. notified. She will notify patient. She will call [facility] and see if she can put plain Benicaron hold for now. COMBER documented in this encounter Plan of Treatment Not on file documented as of this encounter Visit Diagnoses Not on filedocumented in this encounter
--- OUTSIDE RECORDS SUMMARY | 2024-08-19 06:47 | XMS_ITS | Encounter Summary ---
Author Organization [facility] Address [address] [facility] Attn: [place] [address] Care Team Providers Care Wind Commissioning Technician Name Role Phone Unavailable Primary Care Provider Unavailabl e Encounter Details Date Type Department Care Team (Late st Contact Info) Description 10/03/2011 Outpatient Historical Initial Department [address] [place] [address] ATTN: [place] [address] Provider, Historical Social History Tobacco Use Types [...] Date/Time Associated Diagnosis Comments LIPID PANEL Routine 10/03/2011 7:35 AM ROTOPRINTER COMPREHENSIVE METABOLIC PANEL Routine 10/03/2011 7:35 AM ROTOPRINTER documented in this encounter Results * COMPREHENSIVE METABOLIC PANEL (10/03/2011 7:35 AM ROTOPRINTER) [facility] GLUCOSE 98 65 - 99 mg/dL [facility] Comment:Fasting reference in terval BUN 19 7 - 25 mg/dL [facility] [place] CREATININE 1.03 0.70 - 1.33 mg/dL [facility] Comment: For patients >49 years of age, the reference limit for Creatinine is approximately 13% higher for people identified as -[place]. GFR 79 > OR = 60 mL/min/1 .73m2 [facility] GFR, 92 > OR = 60 mL/min/1 .73m2 [facility] BUN/CREAT RATIO NOT APPLICABLE 6 - 22 (calc) [facility] SODIUM 141 135 - 146 mmol/L [facility] POTASSIUM 4.5 3.5 - 5.3 mmol/L [facility] CHLORIDE 104 98 - 110 mmol/L [facility] CO2 25 21 - 33 mmol/L [facility] [employer] [facility] CALCIUM 9.6 8.6 - 10.3 mg/dL [facility] [employer] . [facility] TOTAL PROTEIN 7.0 6.2 - 8.3 g/dL [facility] ALBUMIN 4.4 3.6 - 5.1 g/dL [facility] [employer] [facility] GLOBULIN 2.6 2.1 - 3.7 g/dL (calc) [facility] [employer] [facility] ALBUMIN/GLOBULIN RATIO 1.7 1.0 - 2.1 (calc) [facility] BILIRUBIN TOTAL 0.7 0.2 - 1.2 mg/dL [facility] [employer] [facility] ALKALINE PHOSPHATASE 60 40 - 115 U/L [facility] [employer] [facility] AST 25 10 - 35 U/L [facility] ALT 38 9 - 60 U/L [facility] Comment: REPORT COMMENT: FASTING Test Performed at: [facility] [address] ??[phone] MINO ZAMAN DO,MPH 10/03/2011 7:35 AM ROTOPRINTER Ciro Fernandez DO CHEMISTRY ORDERABLES Performing Organization Address City/State/[facility] Co de Phone Number INTERFACE SYSTEM Refer to clinic/hospital department [facility] [address] [place] [address] * LIPID PANEL (10/03/2011 7:35 AM ROTOPRINTER) CHOLESTEROL 145 125 - 200 mg/dL [facility] Comment: Test Performed at: [facility] [address] ??[phone] MINO ZAMAN DO,MPH HDL 40 > OR = 40 mg/dL [facility] [employer] [facility] TRIGLYCERIDE 110 <150 mg/dL [facility] LDL CALCULATED 83 <130 mg/dL (calc) [facility] Comment: Desirable range <100 mg/dL for patients with CHD or diabetes and <70 mg/dL for diabetic patients with known heart disease. CHOL/HDL RATIO 3.6 < OR = 5.0 (calc) [facility] 10/03/2011 7:35 AM ROTOPRINTER Ciro Fernandez DO CHEMISTRY ORDERABLES INTERFACE SYSTEM Refer to clinic/hospital department [facility] [address] [address] documented in this encounter Visit Diagnoses Not on filedocumented in this encounter
--- OUTSIDE RECORDS SUMMARY | 2024-08-19 06:47 | XMS_ITS | Encounter Summary ---
Author Organization [facility] Address [address] [place] [address] Care Team Providers Care Fish Processor Name Role Phone Unavailable Primary Care Provider Unavailabl e Reason for Visit * Reason Comments Nasal Congestion ST, cough, x 1wk Encounter Details Date Type Department Care Team (Late st Contact Info) Description 11/11/2009 10:30 AM CDT Office Visit [facility] [address] [facility] [address] [place] [address] Ciro Fernandez DO [address] [facility] [address] [place] [address] Acute Sinusitis (Primary Dx); Allergic Rhinitis Social History Tobacco Use Types [...] Sign Reading Time Taken Comments Blood Pressure 112/70 11/11/2009 10:19 AM CDT Pulse 80 11/11/2009 10:19 AM CDT Temperature 36.8 ??C (98.3 ??F) 11/11/2009 10:19 AM C DT Respiratory Rate - - Oxygen Saturation - - Inhaled Oxygen Concentration - - Weight 97.1 kg (214 lb) 11/11/2009 10:19 AM CDT Height - - Body Mass Index - - documented in this encounter Progress Notes * Ciro Fernandez DO - 11/11/2009 11:16 AM CDT Subjective: Brendon Aldana 59 y.o. male presents with a 1 week [...] well as Allergies and Medications. Objective: BP 112/70 Pulse 80 Temp(Src) 98.3 ??F (36.8 ??C) (Temporal) Wt 214 lb (97.07 kg) Gen'l: NAD HEENT: Perrla, eomi. Sinuses tender to palpation over the left maxillary sinuses. Throat erythematous without exudates. pale, swollen, edematous nasal turbinates. yellow Nasal Discharge. Ears Normal. Neck: Supple. No lymphadenopathy. No meningeal signs. Negative Brudinski, Negative Kernigs Lungs: Clear to auscultation bilaterally. CV: RRR. No murmur. Ext: No edema Skin: No rash noted on examination. A/P: Brendon was seen today for nasal congestion. Diagnoses and associated orders for this visit: - Acute sinusitis - Sulfamethoxazole-trimethoprim 800 mg-160 mg tab -- Take 1 Tab by mouth 2 times daily for 10 days. - Mometasone 50 mcg/actuation nasal spray -- Administer 2 Sprays in each nostril daily. - Allergic rhinitis - Mometasone 50 mcg/actuation nasal spray -- Administer 2 Sprays in each nostril daily. [...]
--- OUTSIDE RECORDS SUMMARY | 2024-08-19 06:47 | XMS_ITS | Encounter Summary ---
Author Organization [facility] Address [address] [place] [address] Care Team Providers Care Environmental Epidemiologist Name Role Phone Unavailable Primary Care Provider Unavailabl e Reason for Visit * Reason Onset Date Comments Medication Refill 01/14/2009 Encounter Details Date Type Department Care Team (Late st Contact Info) Description 01/14/2009 Refill [facility] Medicine - [facility] [address] [facility] [address] [place] [address] Ciro Fernandez, DO [address] [facility] [address]IA [address] [place] [address] Social History Tobacco Use Types [...]
--- OUTSIDE RECORDS SUMMARY | 2024-08-19 06:47 | XMS_ITS | Encounter Summary ---
Author Organization [facility] Address [address] [place] [address] Care Team Providers Care Drill Sharpener Operator Name Role Phone Unavailable Primary Care Provider Unavailabl e Encounter Details Date Type Department Care Team (Latest Contact Info) Description 11/20/2008 Orders Only HIS CONVERSION Conversion, History Social [...] Progress Notes * Conversion, History - 01/11/2009 1:[address] [place], [place] [address] cc: Cristela Gant MD BLOOD FLOW The patient presents for mesenteric artery duplex imaging. The patient has had blood in his stool and complains of abdominal pain. The study is done to look for evidence of mesenteric ischemia. The abdominal aorta is imaged, as is the superior mesenteric artery and inferior mesenteric artery. Both the SMA and the ELIANA are widely patent. We are unable to visualize the celiac access. IMPRESSION 1. Inadequate visualization of the celiac access, hepatic artery or splenic artery due to abdominal gas. 2. Widely patent superior mesenteric and inferior mesenteric arteries. IT SECURITY PROJECT MANAGER:MEDQ Dictated by: Isac Sanchez MD Isac Sanchez MD Result Type: BLOOD FLOW Result Date: November 20, 2008 09:00 AM Result Status: UNREVIEWED documented in this encounter Plan of Treatment Not on file documented as of this encounter Visit Diagnoses Not on filedocumented in this encounter
--- OUTSIDE RECORDS SUMMARY | 2024-08-19 06:47 | XMS_ITS | Encounter Summary ---
Author Organization [facility] Address [address] [place] [address] Care Team Providers Care Beamer Operator Name Role Phone Unavailable Primary Care Provider Unavailabl e Reason for Visit * Reason Onset Date Comments Medication Refill 10/09/2010 Encounter Details Date Type Department Care Team (Late st Contact Info) Description 10/09/2010 Refill [facility] Medicine - [address] [address] [address] [place] [address] Ciro Fernandez, DO 107 [facility] [address] [place] [address] Social History Tobacco Use Types [...]
--- OUTSIDE RECORDS SUMMARY | 2024-08-19 06:47 | XMS_ITS | Encounter Summary ---
Author Organization [facility] Address [address] [place] [address] Care Team Providers Care Steel Post Installer Supervisor Name Role Phone Unavailable Primary Care Provider Unavailabl e Reason for Visit * Reason Comments Hypertension chol,followup labs Encounter Details Date Type Department Care Team (Latest Contact Info) Description 04/03/2011 9:15 AM CDT Office Visit [facility] Medicine - [facility] [address] [facility] [address] [place] [address] Ciro Fernandez, DO 107 [facility] [address] [place] [address] Essential hypertension, benign (Primary Dx); Pure hypercholesterolemia Social History Tobacco Use Types [...] Sign Reading Time Taken Comments Blood Pressure 112/68 04/03/2011 8:28 AM CDT Pulse 80 04/03/2011 8:28 AM CDT Temperature 37 ??C (98.6 ??F) 04/03/2011 8:28 AM CDT Respiratory Rate - - Oxygen Saturation - - Inhaled Oxygen Concentration - - Weight 99.3 kg (219 lb) 04/03/2011 8:28 AM CDT Height 177.8 cm (5' 10 ) 04/03/2011 8:28 AM CDT Body Mass Index 31.42 04/03/2011 8:28 AM CDT documented in this encounter Progress Notes * Ciro Fernandez, DO - 04/03/2011 9:39 AM CDT SUBJECTIVE: BRENDON ALDANA is a 61 y.o. male here to discuss medical issues [...] or unusual skin lesions noted OBJECTIVE: BP 112/68 Pulse 80 Temp(Src) 98.6 ??F (37 ??C) (Temporal) Ht 5' 10 (1.778 m) Wt 219 lb (99.338 kg) BMI 31.42 kg/m2 Appearance: alert, well appearing, and in [...] PANEL; Future - COMPREHENSIVE METABOLIC PANEL; Future Pure hypercholesterolemia - LIPID PANEL; Future - COMPREHENSIVE METABOLIC PANEL; Future Other Orders - ibuprofen (MOTRIN) 800 mg Oral tablet; Take 1 Tab by mouth every 6 hours as needed for Pain. Check BP on a regular basis and report highs and lows. Discussed Risks, Benefits and Alternatives of the current treatment regimen. F/u in 6 months documented in this encounter Plan of Treatment Not on file documented as of this encounter Visit Diagnoses Diagnosis Essential hypertension, benign- Primary Pure hypercholesterolemia documented in this encounter
--- OUTSIDE RECORDS SUMMARY | 2024-08-19 06:47 | XMS_ITS | Encounter Summary ---
Author Organization [facility] Address [address] [place] [address] Care Team Providers Care Shrimp Packer Name Role Phone Unavailable Primary Care Provider Unavailabl e Reason for Visit * Reason Comments Sinus Pain ap, cough x 1wk Encounter Details Date Type Department Care Team (Late st Contact Info) Description 08/04/2011 3:15 PM PIPELINE CONTROLLER Office Visit [facility] Medicine - [facility] [address] [facility] [address] [place] [address] Ciro Fernandez, DO [address] [facility] [address] [place] [address] Acute sinusitis; Acute URI Social History Tobacco Use Types Packs/Day Years [...] Sign Reading Time Taken Comments Blood Pressure 118/70 08/04/2011 3:11 PM PIPELINE CONTROLLER Pulse 80 08/04/2011 3:11 PM PIPELINE CONTROLLER Temperature 36.6 ??C (97.8 ??F) 08/04/2011 3:11 PM CS T Respiratory Rate - - Oxygen Saturation - - Inhaled Oxygen Concentration - - Weight 101.2 kg (223 lb) 08/04/2011 3:11 PM PIPELINE CONTROLLER Height 177.8 cm (5' 10 ) 08/04/2011 3:11 PM PIPELINE CONTROLLER Body Mass Index 32 08/04/2011 3:11 PM PIPELINE CONTROLLER documented in this encounter Progress Notes * Ciro Fernandez, DO - 08/04/2011 3:35 PM CST Subjective: Brendon Aldana 61 y.o. male presents with a 1 week [...] well as Allergies and Medications. Objective: BP 118/70 Pulse 80 Temp(Src) 97.8 ??F (36.6 ??C) (Temporal) Ht 5' 10 (1.778 m) Wt 223 lb (101.152 kg) BMI 32.00 kg/m2 Gen'l: NAD HEENT: Perrla, eomi. Sinuses [...] first day and 1 tab days 2-5 - pseudoephedrine (SUDAFED) 30 mg Oral tablet; Take 1 Tab by mouth every 6 hours as needed for Congestion. - Codeine-GuaiFENesin (ROBITUSSIN-AC) 10-100 mg/5 mL Oral solution; Take 10 mL by mouth every 6 hours as needed for Cough. Acute uri - pseudoephedrine (SUDAFED) 30 mg Oral tablet; Take 1 Tab by mouth every 6 hours as needed for Congestion. - Codeine-GuaiFENesin (ROBITUSSIN-AC) 10-100 mg/5 mL Oral solution; Take 10 mL by mouth every 6 hours as needed for Cough. OTC Meds as discussed Increase Fluids and Rest Discussed Risks, Benefits and Alternatives of the current treatment regimen. Call or return to clinic prn if these symptoms worsen or fail to improve as anticipated. LINE CONTROLLER documented in this encounter Plan of Treatment Not on file documented as of this encounter Visit Diagnoses Diagnosis Acute sinusitis Acute sinusitis, unspecified Acute URI Acute upper respiratory infections of unspecified site documented in this encounter
--- OUTSIDE RECORDS SUMMARY | 2024-08-19 06:47 | XMS_ITS | Encounter Summary ---
Author Organization [facility] Address [address] [place] [address] Care Team Providers Care Intake Specialist Name Role Phone Unavailable Primary Care Provider Unavailabl e Encounter Details Date Type Department Care Team (Late st Contact Info) Description 09/13/2010 Abstract [facility] Medicine - [facility] [address] [facility] [address] [place] [address] Ciro Fernandez, DO 107 [facility] [address] [place] [address] Social History Tobacco Use Types [...]
--- OUTSIDE RECORDS SUMMARY | 2024-08-19 06:47 | XMS_ITS | Encounter Summary ---
Author Organization [facility] Address [address] [place] [address] Care Team Providers Care Senior Media Buyer Name Role Phone Unavailable Primary Care Provider Unavailabl e Reason for Visit * Reason Onset Date Comments Medication Refill 09/19/2010 Encounter Details Date Type Department Care Team (Late st Contact Info) Description 09/19/2010 Refill [facility] Family Medicine - [facility] [address] [facility] [address] [place] [address] Ciro Fernandez, DO [address] [facility] [address] [place] [address] Esophageal reflux (Primary Dx) Social [...] * Telephone Encounter - Kay Jesus - 09/19/2010 1:52 PM CST New script faxed to [phone]. MET MACHINE OPERATOR * Telephone Encounter - Day Rosen - 09/19/2010 9:07 AM CST Pt states [facility] can not fill previous rx sent for Prilosec because it is written for OTC.Needs new rx sent without OTC in order. MET MACHINE OPERATOR documented in this encounter Plan of Treatment Not on file documented as of this encounter Visit Diagnoses Diagnosis Esophageal reflux- Primary documented in this encounter
--- OUTSIDE RECORDS SUMMARY | 2024-08-19 06:47 | XMS_ITS | Encounter Summary ---
Author Organization [facility] Address [address] [place] [address] Care Team Providers Care Finisher Accordion Name Role Phone Unavailable Primary Care Provider Unavailabl e Reason for Visit * Reason Onset Date Comments Other 07/14/2011 Encounter Details Date Type Department Care Team (Late st Contact Info) Description 07/14/2011 Telephone [facility] Family Medicine - [facility] [address] [facility] [address] [place] [address] Ciro Fernandez, DO [address] [facility] [address] [place] [address] Other Social History Tobacco Use [...] Miscellaneous Notes * Telephone Encounter - Sisi Jesus N - 07/14/2011 2:31 PM CST Received fax from [facility] stating there are alternatives for benicar/hct that would be cheaper for patient. Dr Fernandez suggests Lorsartan/hctz one po daily. Discussed with patient and . They would like to change to new medication. They will monitor bps and call us with any highs or lows. If any h/a, dizziness, cp call us or go to ER. and patient understand. New script faxed to [facility]. ODIAL WORKER * Telephone Encounter - Jennifer Burnett - 07/14/2011 12:17 PM CST PER GALEN WANTS TO GO AHEAD AND SWITCH THE MEDICINE, UNLESS SISI HAS ALREADY SENT IN THE OTHER ONE, IF SHE HAS THEN DONT WORRY ABOUT IT ODIAL WORKER documented in this encounter Plan of Treatment Not on file documented as of this encounter Visit Diagnoses Not on filedocumented in this encounter
--- OUTSIDE RECORDS SUMMARY | 2024-08-19 06:47 | XMS_ITS | Encounter Summary ---
Author Organization [facility] Address [address] [place] [address] Care Team Providers Care Timber Harvester Operator Name Role Phone Unavailable Primary Care Provider Unavailabl e Reason for Visit * Reason Onset Date Comments Medication Refill 10/07/2010 Encounter Details Date Type Department Care Team (Late st Contact Info) Description 10/07/2010 Refill [facility] Medicine - [facility] [address] [place] [address] Ciro Fernandez, DO 107 [facility] L[address]IA [address] [place] [address] Social History Tobacco Use Types [...]
--- OUTSIDE RECORDS SUMMARY | 2024-08-19 06:47 | XMS_ITS | Encounter Summary ---
Author Organization [facility] Address [address] [place] [address] Care Team Providers Care Background Check Coordinator Name Role Phone Unavailable Primary Care Provider Unavailabl e Encounter Details Date Type Department Care Team (Late st Contact Info) Description 09/06/[address] [facility] Medicine - [facility] [address] [facility] [address] [place] [address] Ciro Fernandez, DO 107 [facility] [address] [place] [address] Social History [...]
--- OUTSIDE RECORDS SUMMARY | 2024-08-19 06:47 | XMS_ITS | Encounter Summary ---
Author Organization [facility] Address [address] [place] [address] Care Team Providers Care Research Analyst Name Role Phone Unavailable Primary Care Provider Unavailabl e Encounter Details Date Type Department Care Team (Late st Contact Info) Description 09/19/2010 Abstract [facility] Medicine - [facility] [address] [facility] [address] [place] [address] Ciro Fernandez, DO 107 [facility] [address] [place] [address] Social History Tobacco Use Types [...]
--- OUTSIDE RECORDS SUMMARY | 2024-08-19 06:47 | XMS_ITS | Encounter Summary ---
Author Organization [facility] Address [address] [place] [address] Care Team Providers Care Telecommunication Lines Repairer Name Role Phone Unavailable Primary Care Provider Unavailabl e Reason for Visit * Reason Comments Medication Refill Encounter Details Date Type Department Care Team (Late st Contact Info) Description 01/26/2012 Refill [facility] Medicine - [facility] [address] [facility] [address] [place] [address] Ciro Fernandez, DO [address] [facility] [address] [place] [address] Social History Tobacco Use Types [...]
--- OUTSIDE RECORDS SUMMARY | 2024-08-19 06:47 | XMS_ITS | Encounter Summary ---
Author Organization [facility] Address [address] [place] [address] Care Team Providers Care Rn Relief Charge Name Role Phone Unavailable Primary Care Provider Unavailabl e Reason for Visit * Reason Onset Date Comments Medication Refill 12/30/2011 Encounter Details Date Type Department Care Team (Late st Contact Info) Description 12/30/[address] [facility] Family Medicine - [facility] Abundio Yuan [address] [facility] [address] [place] [address] Ciro Fernandez, DO 107 [facility] [address] [place] [address] Social History Tobacco Use Types [...] * Telephone Encounter - Jennifer Burnett - 12/30/2011 3:24 PM CDT PER PT THE MAIL ORDER PHARM SAYS HE HAS TO GET THE CIALIS THROUGH HIS LOCAL PHARM, PLEASE SEND IT TO THE [employer] LISTED (if he needs the actual hard copy to bring to pharm his will be here this afternoon) documented in this encounter Plan of Treatment Not on file documented as of this encounter Visit Diagnoses Not on filedocumented in this encounter
--- OUTSIDE RECORDS SUMMARY | 2024-08-19 06:47 | XMS_ITS | Encounter Summary ---
Author Organization [facility] Address [address] [place] [address] Care Team Providers Care Fermenting Cellar Dropper Name Role Phone Unavailable Primary Care Provider Unavailabl e Reason for Visit * Reason Onset Date Comments Medication Refill 06/28/2009 Encounter Details Date Type Department Care Team (Late st Contact Info) Description 06/28/2009 Refill [facility] Family Medicine - [facility]und[facility] [address] [facility] [address] [place] [address] Ciro Fernandez, DO [address] [facility] [address] [place] [address] Social History Tobacco Use Types [...] Miscellaneous Notes * Telephone Encounter - Kay Booth - 06/28/2009 3:12 PM CST Pt came in stating 90 supply was sent to [facility] instead of [facility]. New prescription sent. Patient notified. CTOR OF QUALITY CONTROL documented in this encounter Plan of Treatment Not on file documented as of this encounter Visit Diagnoses Not on filedocumented in this encounter
--- OUTSIDE RECORDS SUMMARY | 2024-08-19 06:48 | XMS_ITS | Encounter Summary ---
Author Organization [facility] Address [address] [place] [address] Care Team Providers Care It Compliance Manager Name Role Phone Inderjit Narayan DO Primary Care Provider + Encounter Details Date Type Department Care Team (Late st Contact Info) Description 04/16/2000 Outpatient Historical [facility] Medicine - [facility] [address] [facility] [address] [place] [address] Dimitry Powell MD 111 [facility] [address] [place] [address] Social History Tobacco Use Types Packs/Day Years Used Date Smoking Tobacco: Never Assessed Sex and Gender Information Value Date Recorded Sex Assigned at Not on file Gender Identity Not on file Sexual Orientation Not on file documented as of this encounter Plan of Treatment Not on file documented as of this encounter Visit Diagnoses Not on filedocumented in this encounter Care Teams It Compliance Manager Relationship Specialty Start Date End Date Inderjit Narayan DO [address] [place] [phone] PCP - General Family Practice 04/09/23 08/29/23 documented as of this encounter
--- OUTSIDE RECORDS SUMMARY | 2024-08-19 06:48 | XMS_ITS | Encounter Summary ---
Author Organization [facility] Address [address] [place] [address] Care Team Providers Care Energy Trader Name Role Phone Inderjit Narayan DO Primary Care Provider + Encounter Details Date Type Department Care Team (Late st Contact Info) Description 06/09/1999 Outpatient Historical [facility] Medicine - [facility] [address] [facility] [address] [place] [address] Tayler Viera MD [address] [place] [address] Social History Tobacco Use Types Packs/Day Years Used Date Smoking Tobacco: Never Assessed Sex and Gender Information Value Date Recorded Sex Assigned at Not on file Gender Identity Not on file Sexual Orientation Not on file documented as of this encounter Plan of Treatment Not on file documented as of this encounter Visit Diagnoses Not on filedocumented in this encounter Care Teams Energy Trader Relationship Specialty Start Date End Date Inderjit Narayan DO [facility] [place] [address] PCP - General Family Practice 04/09/23 08/29/23 documented as of this encounter
--- OUTSIDE RECORDS SUMMARY | 2024-08-19 06:48 | XMS_ITS | Encounter Summary ---
Author Organization [facility] Address [address] [place] [address] Care Team Providers Care Oyster Bed Worker Name Role Phone Inderjit Narayan DO Primary Care Provider + Encounter Details Date Type Department Care Team (Late st Contact Info) Description 06/07/2006 Outpatient Historical [facility] Medicine - [facility] [address] [facility] [place] [address] Najma Aquino MD [address] [facility] [address] [place] [address] Social History Tobacco Use Types Packs/Day Years Used Date Smoking Tobacco: Never Assessed Sex and Gender Information Value Date Recorded Sex Assigned at Not on file Gender Identity Not on file Sexual Orientation Not on file documented as of this encounter Plan of Treatment Not on file documented as of this encounter Visit Diagnoses Not on filedocumented in this encounter Care Teams Oyster Bed Worker Relationship Specialty Start Date End Date Inderjit Narayan DO [address] [facility] [place] [address] PCP - General Family Practice 04/09/23 08/29/23 documented as of this encounter
--- OUTSIDE RECORDS SUMMARY | 2024-08-19 06:48 | XMS_ITS | Encounter Summary ---
Author Organization [facility] Address [address] [place] [address] Care Team Providers Care Wire Wrapping Machine Operator Name Role Phone Inderjit Narayan DO Primary Care Provider + Encounter Details Date Type Department Care Team (Late st Contact Info) Description 09/24/2004 Outpatient Historical [facility] Medicine - [facility] [address] [facility] [address] [place] [address] Tayler Viera MD [address] [place] [address] Social History Tobacco Use Types [...] on filedocumented in this encounter Care Teams Wire Wrapping Machine Operator Relationship Specialty Start Date End Date Inderjit Narayan DO [facility][note 3]1 [facility] [place] [address] PCP - General Family Practice 04/09/23 08/29/23 documented as of this encounter
--- OUTSIDE RECORDS SUMMARY | 2024-08-19 06:48 | XMS_ITS | Encounter Summary ---
Author Organization [facility] Address [address] [place] [address] Care Team Providers Care Commercial Attorney Name Role Phone Inderjit Narayan DO Primary Care Provider + Encounter Details Date Type Department Care Team (Late st Contact Info) Description 04/29/2001 Outpatient Historical [facility] Medicine - [facility] [address] [facility] [address] [place] [address] Dimitry Powell MD 111 [facility] [address] [place] [address] Social History Tobacco Use Types [...] on filedocumented in this encounter Care Teams Commercial Attorney Relationship Specialty Start Date End Date Inderjit Narayan DO [address] [place] [phone] PCP - General Family Practice 04/09/23 08/29/23 documented as of this encounter
--- OUTSIDE RECORDS SUMMARY | 2024-08-19 06:48 | XMS_ITS | Encounter Summary ---
Author Organization [facility] Address [address] [place] [address] Care Team Providers Care Referral Manager Name Role Phone Unavailable Primary Care Provider Unavailabl e Encounter Details Date Type Department Care Team (Late st Contact Info) Description 07/09/2008 Orders Only [facility] Medicine - [facility] [address] [facility] [address] [place] [address] Ciro Fernandez, DO [address] [facility] [address] [place] [address] Dysuria (Primary Dx) Social History Tobacco Use Types Packs/Day Years Used Date Smoking Tobacco: Never Assessed Sex and Gender Information Value Date Recorded Sex Assigned at Not on file Gender Identity Not on file Sexual Orientation Not on file documented as of this encounter Plan of Treatment Not on file documented as of this encounter Visit Diagnoses Diagnosis Dysuria- Primary documented in this encounter
--- OUTSIDE RECORDS SUMMARY | 2024-08-19 06:48 | XMS_ITS | Encounter Summary ---
Author Organization [facility] Address [address] [place] [address] Care Team Providers Care Crew Manager Name Role Phone Inderjit Narayan DO Primary Care Provider + Encounter Details Date Type Department Care Team (Late st Contact Info) Description 07/21/[address] [facility] Medicine - [facility] [address] [facility] [address] [place] [address] Tayler Viera MD [address] [place] [address] Social History Tobacco Use Types [...] on filedocumented in this encounter Care Teams Crew Manager Relationship Specialty Start Date End Date Inderjit Narayan DO [facility]1 [facility] [place] [address] PCP - General Family Practice 04/09/23 08/29/23 documented as of this encounter
--- OUTSIDE RECORDS SUMMARY | 2024-08-19 06:48 | XMS_ITS | Encounter Summary ---
Author Organization [facility] Address [address] [place] [address] Care Team Providers Care Head Batcher Name Role Phone Inderjit Narayan DO Primary Care Provider + Encounter Details Date Type Department Care Team (Late st Contact Info) Description 07/23/1999 Outpatient Historical [facility] Medicine - [facility] [address] [facility] [address] [place] [address] Tayler Viera MD [address] [place] [address] Social History Tobacco Use Types [...] on filedocumented in this encounter Care Teams Head Batcher Relationship Specialty Start Date End Date Inderjit Narayan DO [facility] [place] [address] PCP - General Family Practice 04/09/23 08/29/23 documented as of this encounter
--- OUTSIDE RECORDS SUMMARY | 2024-08-19 06:48 | XMS_ITS | Encounter Summary ---
Author Organization [facility] Address [address] [place] [address] Care Team Providers Care Truck Loader And Unloader Name Role Phone Unavailable Primary Care Provider Unavailabl e Encounter Details Date Type Department Care Team (Latest Contact Info) Description 03/23/2008 Abstract [facility] ABSTRACTION Provider, Abstract NO ADDRESS ON FILE Social History Tobacco Use Types Packs/Day Years Used Date Smoking Tobacco: Never Assessed Sex and Gender Information Value Date Recorded Sex Assigned at Not on file Gender Identity Not on file Sexual Orientation Not on file documented as of this encounter Last Filed Vital Signs Vital Sign Reading Time Taken Comments Blood Pressure 115/80 03/23/2008 4:00 PM CDT Pulse 88 03/23/2008 4:00 PM CDT Temperature - - Respiratory Rate - - Oxygen Saturation - - Inhaled Oxygen Concentration - - Weight 97.1 kg (214 lb) 03/23/2008 4:00 PM CDT Height - - Body Mass Index - - documented in this encounter Plan of Treatment Not on file documented as of this encounter Visit Diagnoses Not on filedocumented in this encounter
--- OUTSIDE RECORDS SUMMARY | 2024-08-19 06:48 | XMS_ITS | Encounter Summary ---
Author Organization [facility] Address [address] [place] [address] Care Team Providers Care Project Facilitator Name Role Phone Unavailable Primary Care Provider Unavailabl e Reason for Visit * Reason Comments Kidney Stone possible Encounter Details Date Type Department Care Team (Late st Contact Info) Description 07/09/2008 4:00 PM PILE DRIVING NOZZLEMAN Office Visit [facility] Medicine - [facility] [address] [facility] [address] [place] [address] Ciro Fernandez, DO [address] [facility] [address] [place] [address] Dysuria (Primary Dx); Hesitancy; Screening for Prostate Cancer Social History Tobacco Use Types Packs/Day Years Used Date Smoking Tobacco: Never Assessed Sex and Gender Information Value Date Recorded Sex Assigned at Not on file Gender Identity Not on file Sexual Orientation Not on file documented as of this encounter Last Filed Vital Signs Vital Sign Reading Time Taken Comments Blood Pressure 130/88 07/09/2008 3:53 PM PILE DRIVING NOZZLEMAN Pulse 84 07/09/2008 3:53 PM PILE DRIVING NOZZLEMAN Temperature 36.9 ??C (98.5 ??F) 07/09/2008 3:53 PM CS T Respiratory Rate - - Oxygen Saturation - - Inhaled Oxygen Concentration - - Weight 100.7 kg (222 lb) 07/09/2008 3:53 PM PILE DRIVING NOZZLEMAN Height - - Body Mass Index - - documented in this encounter Progress Notes * Ciro Fernandez - 07/09/2008 4:39 PM CST Urolithiasis Patient complains of left flank pain with radiation to the groin. Onset of symptoms was abrupt and 3 days ago with rapidly improving course since that time. Patient describes the pain as colicky, intermittent, occurring about every few hours. The patient has had no nausea and no vomiting and no diaphoresis. There has been no fever or chills. The patient is complaining of dysuria or frequency. There is a history of kidney stones in the past. Pt states he thinks he passed the stone yesterday. +nocturia x 1. Pt denies LBP/Paresthesia, Bowel problems. No blood in stool. Past Medical/Surgical/Social/Family History reviewed as well as Allergies and Medications. Objective: BP 130/88 Pulse 84 Temp(Src) 98.5 ??F (36.9 ??C) (Oral) Wt 222 lb (100.699 kg) General exam Appearance: alert, well appearing, and in no distress. Skin:I note only benign skin findings. No unusual rashes or suspicious skin lesions noted. CV: heart sounds: normal rate, regular rhythm, normal S1, S2, no murmurs, rubs, clicks or gallops, chest clear, no hepatosplenomegaly, no carotid bruits, Chest:Chest is clear, no wheezing or rales. Normal symmetric air entry throughout both lung dsouza.No chest wall deformities or tenderness. Abdomen: abdomen is soft without tenderness, guarding, mass, rebound or organomegaly. Bowel sounds are normal. Extremities: peripheral pulses normal, no pedal edema, good pulses Neuro: Cranial nerves and fundi are normal. PERRLA. EOM's intact. No papilledema. Neck supple. No bruits. Normal deep tendon reflexes. Psych: Appropriate Negative [employer] B/L Genitals normal; both testes normal without tenderness, masses, hydroceles, varicoceles, erythema or swelling. Shaft normal, uncircumcised, meatus normal without discharge. No inguinal hernia noted. No inguinal lymphadenopathy. Prostate exam: smooth and symmetric without nodules or tenderness, enlarged globally no nodules or mass. symmetrical, RECTAL EXAM: Hemoccult Negative. Urine dipstick shows negative for all components. A/P: Dysuria - Mostly Resolved ?Kidney Stone. Prostate mildly enlarged. Normal PSA less than a year ago. UA Normal. Most likely Kidney stone that passed. F/U as needed. Discussed Risks, Benefits and Alternatives of the current treatment regimen. DRIVING NOZZLEMAN documented in this encounter Plan of Treatment Not on file documented as of this encounter Procedures Procedure Name Priority Date/Time Associated Diagnosis Comments POC OCCULT BLOOD UP TO 3 CARDS Routine 04/22/2009 3:38 PM CDT Dysuria Hesitancy Screening for Prostate Cancer POC URINALYSIS DIPSTICK NON AUTOMATED Routine 07/09/2008 4:46 PM PILE DRIVING NOZZLEMAN Dysuria documented in this encounter Results * POC OCCULT BLOOD UP TO 3 CARDS (04/22/2009 3:38 PM CDT) OCCULT BLOOD #1 neg [facility] OCCULT BLOOD #2 [facility] OCCULT BLOOD #3 [facility] Stool specimen (specimen) Ciro Fernandez DO POINT OF CARE [facility] * POC URINALYSIS DIPSTICK NON AUTOMATED (07/09/2008 4:46 PM PILE DRIVING NOZZLEMAN) COLOR UA YELLOW [facility] CLARITY UA CLEAR [facility] SPECIFIC GRAVITY UA 1.015 1.001 - 1.035 [facility] PH UA 5.0 5 - 8 [facility] LEUKOCYTE ESTERASE UA neg TRACE [facility] NITRITE UA neg POS [facility] PROTEIN UA neg [facility] GLUCOSE UA nl [facility] KETONES UA neg TRACE [facility] UROBILINOGEN UA nl 2.0 EU/dL [facility]YS [facility] BILIRUBIN UA neg SMALL [facility]YSICI [facility]S OFFICE CLINIC BLOOD UA neg [facility] Urine specimen (specimen) Ciro Fernandez DO POINT OF CARE [facility] documented in this encounter Visit Diagnoses Diagnosis Dysuria- Primary Hesitancy Urinary hesitancy Screening for prostate cancer Special screening for malignant neoplasm of prostate documented in this encounter
--- OUTSIDE RECORDS SUMMARY | 2024-08-19 06:48 | XMS_ITS | Encounter Summary ---
Author Organization [facility] Address [address] [place] [address] Care Team Providers Care Highway Engineer Name Role Phone Unavailable Primary Care Provider Unavailabl e Encounter Details Date Type Department Care Team (Late st Contact Info) Description 06/13/2021 9:00 AM CDT Immunization [facility] Immunization [address] [place] [address] Need for vaccination (Primary Dx) Social History Tobacco Use Types Packs/Day Years Used Date Smoking Tobacco: Never Assessed Sex and Gender Information Value Date Recorded Sex Assigned at Not on file Legal Sex Male 8:41 AM CDT Gender Identity Not on file Sexual Orientation Not on file documented as of this encounter Plan of Treatment Not on file documented as of this encounter Visit Diagnoses Diagnosis Need for vaccination- Primary Need for prophylactic vaccination and inoculation against unspecified single disease documented in this encounter
--- OUTSIDE RECORDS SUMMARY | 2024-08-19 06:48 | XMS_ITS | Encounter Summary ---
Author Organization [facility] Address [address] [place] [address] Care Team Providers Care Barkeep Name Role Phone Inderjit Narayan DO Primary Care Provider + Encounter Details Date Type Department Care Team (Late st Contact Info) Description 02/05/2006 Outpatient Historical [facility] Medicine - [facility] [address] [facility] [address] [place] [address] Tayler Viera MD [address] [place] [address] Social History Tobacco Use Types [...] on filedocumented in this encounter Care Teams Barkeep Relationship Specialty Start Date End Date Inderjit Narayan DO [facility] [place] [address] PCP - General Family Practice 04/09/23 08/29/23 documented as of this encounter
--- OUTSIDE RECORDS SUMMARY | 2024-08-19 06:48 | XMS_ITS | Encounter Summary ---
Author Organization [facility] Address [address] [place] [address] Care Team Providers Care Sugar Plantation Manager Name Role Phone Inderjit Narayan DO Primary Care Provider + Encounter Details Date Type Department Care Team (Late st Contact Info) Description 01/30/2002 Outpatient Historical [facility] Medicine - [facility] [address] [facility] [address] [place] [address] Tayler Viera MD [address] [place] [address] Social History Tobacco Use Types [...] on filedocumented in this encounter Care Teams Sugar Plantation Manager Relationship Specialty Start Date End Date Inderjit Narayan DO [facility] [place] [address] PCP - General Family Practice 04/09/23 08/29/23 documented as of this encounter
--- OUTSIDE RECORDS SUMMARY | 2024-08-19 06:48 | XMS_ITS | Encounter Summary ---
Author Organization [facility] Address [address] [place] [address] Care Team Providers Care Semi Conductor Assembler Name Role Phone Inderjit Narayan DO Primary Care Provider + Encounter Details Date Type Department Care Team (Late st Contact Info) Description 05/11/2003 Outpatient Historical [facility] Medicine - [facility] [address] [facility] [address] [place] [address] Tayler Viera MD [address] [place] [address] Social History Tobacco Use Types [...] on filedocumented in this encounter Care Teams Semi Conductor Assembler Relationship Specialty Start Date End Date Inderjit Narayan DO [facility] [address] PCP - General Family Practice 04/09/23 08/29/23 documented as of this encounter
--- OUTSIDE RECORDS SUMMARY | 2024-08-19 06:48 | XMS_ITS | Encounter Summary ---
Author Organization [facility] Address [address] [place] [address] Care Team Providers Care Steel Tester Name Role Phone Inderjit Narayan DO Primary Care Provider + Encounter Details Date Type Department Care Team (Late st Contact Info) Description 05/04/2003 Outpatient Historical [facility] Medicine - [facility] [address] [facility] [address] [place] [address] Tayler Viera MD [address] [place] [address] Social History Tobacco Use Types [...] on filedocumented in this encounter Care Teams Steel Tester Relationship Specialty Start Date End Date Inderjit Narayan DO [facility] [address] [facility] [place] [address] PCP - General Family Practice 04/09/23 08/29/23 documented as of this encounter
--- OUTSIDE RECORDS SUMMARY | 2024-08-19 06:48 | XMS_ITS | Encounter Summary ---
Author Organization [facility] Address [address] [place] [address] Care Team Providers Care Product Marketing Consultant Name Role Phone Inderjit Narayan DO Primary Care Provider + Encounter Details Date Type Department Care Team (Late st Contact Info) Description 04/08/2004 Outpatient Historical [facility] Medicine - [facility] [address] [facility] [address] [place] [address] Tayler Viera MD [address] [place] [address] Social History Tobacco Use Types [...] on filedocumented in this encounter Care Teams Product Marketing Consultant Relationship Specialty Start Date End Date Inderjit Narayan DO [facility] [place] [address] PCP - General Family Practice 04/09/23 08/29/23 documented as of this encounter
--- OUTSIDE RECORDS SUMMARY | 2024-08-19 06:48 | XMS_ITS | Encounter Summary ---
Author Organization [facility] Address [address] [place] [address] Care Team Providers Care Insulation Installer Name Role Phone Inderjit Narayan DO Primary Care Provider + Encounter Details Date Type Department Care Team (Late st Contact Info) Description 06/30/[address] [facility] Medicine - [facility] [address] [facility] [address] [place] [address] Tayler Viera MD [address] [place] [address] Social History Tobacco Use Types [...] on filedocumented in this encounter Care Teams Insulation Installer Relationship Specialty Start Date End Date Inderjit Narayan DO [facility] [place] [address] PCP - General Family Practice 04/09/23 08/29/23 documented as of this encounter
--- OUTSIDE RECORDS SUMMARY | 2024-08-19 06:48 | XMS_ITS | Encounter Summary ---
Author Organization [facility] Address [address] [place] [address] Care Team Providers Care Instructor Extension Work Name Role Phone Inderjit Narayan DO Primary Care Provider + Encounter Details Date Type Department Care Team (Late st Contact Info) Description 06/10/2001 Outpatient Historical [facility] Medicine - [facility] [address] [facility] [address] [place] [address] Tayler Viera MD [address] [place] [address] Social History Tobacco Use Types [...] on filedocumented in this encounter Care Teams Instructor Extension Work Relationship Specialty Start Date End Date Inderjit Narayan DO [facility] [place] [address] PCP - General Family Practice 04/09/23 08/29/23 documented as of this encounter
--- OUTSIDE RECORDS SUMMARY | 2024-08-19 06:48 | XMS_ITS | Encounter Summary ---
Author Organization [facility] Address [address] [place] [address] Care Team Providers Care Affirmative Action Specialist Name Role Phone Inderjit Narayan DO Primary Care Provider + Encounter Details Date Type Department Care Team (Late st Contact Info) Description 03/07/2002 Outpatient Historical [facility] Medicine - [facility] [address] [facility] [address] [place] [address] Dimitry Powell MD [address] [facility] [address] [place] [address] Social History Tobacco Use Types [...] on filedocumented in this encounter Care Teams Affirmative Action Specialist Relationship Specialty Start Date End Date Inderjit Narayan DO [address] [place] [address] PCP - General Family Practice 04/09/23 08/29/23 documented as of this encounter
--- OUTSIDE RECORDS SUMMARY | 2024-08-19 06:48 | XMS_ITS | Encounter Summary ---
Author Organization [facility] Address [address] [place] [address] Care Team Providers Care Shipping And Receiving Specialist Name Role Phone Unavailable Primary Care Provider Unavailabl e Reason for Visit * Reason Onset Date Comments Melena 09/21/2008 bright red blood in stool Encounter Details Date Type Department Care Team (Late st Contact Info) Description 09/21/2008 Telephone [facility] - [facility] [address] [facility] [address] [place] [address] Ciro Fernandez, DO [address] [facility] [address] [place] [address] Melena (bright red blood in stool) Social History Tobacco Use Types Packs/Day Years Used Date Smoking Tobacco: Never Assessed Sex and Gender Information Value Date Recorded Sex Assigned at Not on file Gender Identity Not on file Sexual Orientation Not on file documented as of this encounter Miscellaneous Notes * Telephone Encounter - Clint Lambert - 09/21/2008 2:47 PM CST Pt was informed and he can take imodium for cramping NEERING TEST SPECIALIST * Telephone Encounter - Ciro Fernandez - 09/21/2008 12:52 PM CST Okay. If it is bright red and continuing you need to be seen either by me here, or at an C/ED. Continue with good water intake. NEERING TEST SPECIALIST * Telephone Encounter - Clint Lambert N - 09/21/2008 12:45 PM CST Pt called ate late last night some monster tacos from [employer] [place], woke up with cramping and diarrhea this am around 2:30 and thinks maybe he has stirred up a hemorrhoid in the process because now he has bright red blood in his stool. States that he can not come in because of the drive and he can not sit that long. NEERING TEST SPECIALIST documented in this encounter Plan of Treatment Not on file documented as of this encounter Visit Diagnoses Not on filedocumented in this encounter
--- OUTSIDE RECORDS SUMMARY | 2024-08-19 06:48 | XMS_ITS | Encounter Summary ---
Author Organization [facility] Address [address] [place] [address] Care Team Providers Care Health Program Specialist Name Role Phone Inderjit Narayan DO Primary Care Provider + Encounter Details Date Type Department Care Team (Late st Contact Info) Description 11/21/2002 Outpatient Historical [facility] Medicine - [facility] [address] [facility] [address] [place] [address] Tayler Viera MD [address] [place] [address] Social History Tobacco Use Types [...] filedocumented in this encounter Care Teams Health Program Specialist Relationship Specialty Start Date End Date Inderjit Narayan DO [facility]1 [facility] [place] [address] PCP - General Family Practice 04/09/23 08/29/23 documented as of this encounter
--- OUTSIDE RECORDS SUMMARY | 2024-08-19 06:48 | XMS_ITS | Encounter Summary ---
Author Organization [facility] Address [address] [place] [address] Care Team Providers Care Meat Inspector Name Role Phone Inderjit Narayan DO Primary Care Provider + Encounter Details Date Type Department Care Team (Late st Contact Info) Description 09/17/2000 Outpatient Historical [facility] Medicine - [facility] [address] [facility] [address] [place] [address] Tayler Viera MD [address] [place] [address] Social History Tobacco Use Types [...] on filedocumented in this encounter Care Teams Meat Inspector Relationship Specialty Start Date End Date Inderjit Narayan DO [facility] [place] [address] PCP - General Family Practice 04/09/23 08/29/23 documented as of this encounter
--- OUTSIDE RECORDS SUMMARY | 2024-08-19 06:48 | XMS_ITS | Encounter Summary ---
Author Organization [facility] Address [address] [place] [address] Care Team Providers Care Lpn Rn Hospice Name Role Phone Inderjit Narayan DO Primary Care Provider + Encounter Details Date Type Department Care Team (Late st Contact Info) Description 09/22/2002 Outpatient Historical [facility] Medicine - [facility] [address] [facility] [address] [place] [address] Tayler Viera MD [address] [place] [address] Social History Tobacco Use Types [...] on filedocumented in this encounter Care Teams Lpn Rn Hospice Relationship Specialty Start Date End Date Inderjit Narayan DO [facility]1 [facility] [place] [address] PCP - General Family Practice 04/09/23 08/29/23 documented as of this encounter
--- OUTSIDE RECORDS SUMMARY | 2024-08-19 06:48 | XMS_ITS | Clinical Summary ---
Author Organization [facility] Address [address] [place] [address] Care Team Providers Care Rig Welder Name Role Phone Unavailable Primary Care Provider Unavailabl e Immunizations Immunization Administration Dates Next Due Covid-19, Mrna, Lnp-s, PF, 1 00 mcg/0.5 mL Dose (Moderna) 06/13/2021 Social History Tobacco Use Types Packs/Day Years Used Date Smoking Tobacco: Never Assessed Sex and Gender Information Value Date Recorded Sex Assigned at Not on file Legal Sex Male 8:41 AM CDT Gender Identity Not on file Sexual Orientation Not on file Plan of Treatment Health Maintenance Due Date Last Done Comments Hepatitis C Virus (HCV) Screening 1950 Colonoscopy 1997 Colorectal Cancer Screening 1997 Cologuard 2002 Immunochemical Fecal Occult Blood 2002 Zoster Immunization (1 of 2) 2002 Influenza Immunization (#1) 04/09/202404/09, 04/25/2020, 06/10/2019, Additional history exists SARS-COV-2 Immunization ( season) 2024 06/13/2021, 10/18/2020, 09/20/2020 Respiratory Syncytial Virus (RSV) Immunization (Adult) (1 - 1-dose 75+ series) 2027 DTaP/Tdap/Td Immunization Discontinued 11/17/2018, 08/2007 Pneumococcal Immunization (50+ years) Completed 11/17/2018, 10/14/2017 TdaP Immunization Completed 11/17/2018, 08/09/2007 Hepatitis B Immunization Aged Out No longer eligible based on patient's age to complete this topic Meningococcal Immunization (ACWY) Aged Out No longer eligible based on patient's age to complete this topic Rotavirus Immunization Aged Out No lo nger eligible based on patient's age to complete this topic
--- OUTSIDE RECORDS SUMMARY | 2024-08-19 06:48 | XMS_ITS | Encounter Summary ---
Author Organization [facility] Address [address] [place] [address] Care Team Providers Care Office Electrician Name Role Phone Unavailable Primary Care Provider Unavailabl e Reason for Visit * Reason Comments Flu flu like symptoms Encounter Details Date Type Department Care Team (Late st Contact Info) Description 09/24/2008 11:00 AM PART MAKER Office Visit [facility] - [facility] [address] [facility] [address] [place] [address] Ciro Fernandez, DO [address] [facility] [address] [place] [address] Blood in Stool; Constipation; Internal Hemorrhoid Social History Tobacco Use Types Packs/Day Years [...] Sign Reading Time Taken Comments Blood Pressure 114/80 09/24/2008 10:56 AM PART MAKER Pulse 92 09/24/2008 10:56 AM PART MAKER Temperature 36.5 ??C (97.7 ??F) 09/24/2008 10:[address] Respiratory Rate - - Oxygen Saturation - - Inhaled Oxygen Concentration - - Weight 98.9 kg (218 lb) 09/24/2008 10:56 AM PART MAKER Height - - Body Mass Index - - documented in this encounter Progress Notes * Ciro Fernandez - 09/24/2008 12:40 PM CST SUBJECTIVE: BRENDON ALDANA is a 58 y.o. male here to discuss recent blood in stool. Pt states that he noticed some blood in stool recently. Then pt was eating at [employer] and had some stomach cramps after, diarrhea and more blood instools. Pt states that normally he is constipated. Pt reports no BM since Sat AM which is typical for him. No abd pain. Otherwise doing fine. Had a normal Colonoscopy 7 years ago. Pt with no other symptoms today Past Medical/Surgical/Social/Family History reviewed as well as Allergies and Medications. Review of Systems - Psychological ROS: negative for anxiety or depressive symptoms. Ophthalmic ROS: negative for visual changes. ENT ROS: negative for nasal bleeding, dysphagia or ear pain Hematological and Lymphatic ROS: negative for swollen glands or abnormal bleeding Endocrine ROS: negative for polyuria/polydipsia or new changes in weight Respiratory ROS: negative for cough, shortness of breath, or wheezing Cardiovascular ROS: negative for chest pain or dyspnea on exertion Gastrointestinal ROS: negative for reflux Genito-Urinary ROS: negative for dysuria, trouble voiding, or hematuria Musculoskeletal ROS: negative for back pain, neck pain or joint pain or swelling Neurological ROS: negative for TIA or stroke symptoms, no bowel and bladder control changes Dermatological ROS: negative for skin rashes or unusual skin lesions OBJECTIVE: BP 114/80 Pulse 92 Temp(Src) 97.7 ??F (36.5 ??C) (Oral) Wt 218 lb (98.884 kg) Appearance: alert, well appearing, and in no distress. Skin: I note only benign skin findings. No unusual rashes or suspicious skin lesions Eyes: normal, normal vessels, EOMFI, PERRLA. CV: heart sounds: normal rate, regular rhythm, normal S1, S2, no murmurs, rubs, clicks or gallops, no carotid bruits Chest: Chest is clear, no wheezing or rales. Normal symmetric air entry throughout both lung dsouza. No chest wall deformities or tenderness. Abdomen: abdomen is soft without tenderness, guarding, mass, rebound or organomegaly. Bowel sounds are normal. Extremities: peripheral pulses normal, no pedal edema Neuro: Cranial nerves and fundi are grossly normal. Normal deep tendon reflexes. Psych: Appropriate A/P: Brendon was seen today for flu. Diagnoses and associated orders for this visit: - Blood in stool - Poc occult blood up to 3 cards - Endoscopy, colon, diagnostic -- Future - Constipation - Endoscopy, colon, diagnostic -- Future - Internal hemorrhoid - Endoscopy, colon, diagnostic -- Future Increase fiber Regulate BM Discussed Risks, Benefits and Alternatives of the current treatment regimen. MAKER documented in this encounter Plan of Treatment Not on file documented as of this encounter Procedures Procedure Name Priority Date/Time Associated Diagnosis Comments POC OCCULT BLOOD UP TO 3 CARDS Routine 09/24/2008 2:05 PM PART MAKER Blood in Stool documented in this encounter Results * ENDOSCOPY, COLON, DIAGNOSTIC (09/28/2008) Ciro Fernandez DO GI PROCEDURE ORDERAB LES Performing Organization Address City/State/[facility] Co de Phone Number [facility] * (ABNORMAL) POC OCCULT BLOOD UP TO 3 CARDS (09/24/2008 2:05 PM PART MAKER) OCCULT BLOOD #1 POS POS [facility] OCCULT BLOOD #2 POS [facility] OCCULT BLOOD #3 POS [facility] Stool specimen (specimen) Ciro Fernandez DO POINT OF CARE TESTIN G [facility] documented in this encounter Visit Diagnoses Diagnosis Blood in stool Constipation Unspecified constipation Internal hemorrhoid Internal hemorrhoids without mention of complication documented in this encounter
--- OUTSIDE RECORDS SUMMARY | 2024-08-19 06:48 | XMS_ITS | Encounter Summary ---
Author Organization [facility] Address [address] [place] [address] Care Team Providers Care Library Services Assistant Name Role Phone Inderjit Narayan DO Primary Care Provider + Encounter Details Date Type Department Care Team (Late st Contact Info) Description 04/05/2002 Outpatient Historical [facility] Medicine - [facility] [place] [address] [facility] [address] [place] [address] Tayler Viera MD [address] [place] [address] Social History Tobacco Use Types [...] on filedocumented in this encounter Care Teams Library Services Assistant Relationship Specialty Start Date End Date Inderjit Narayan DO [facility] [place] [address] PCP - General Family Practice 04/09/23 08/29/23 documented as of this encounter
--- OUTSIDE RECORDS SUMMARY | 2024-08-19 06:48 | XMS_ITS | Encounter Summary ---
Author Organization [facility] Address [address] [place] [address] Care Team Providers Care Senior Application Security Consultant Name Role Phone Inderjit Narayan DO Primary Care Provider + Encounter Details Date Type Department Care Team (Late st Contact Info) Description 09/02/2007 Outpatient Historical [facility] - [facility] [place] [address] [facility] [address] [place] [address] Tayler Viera MD [address] [place] [address] Social History Tobacco Use Types [...] filedocumented in this encounter Care Teams Senior Application Security Consultant Relationship Specialty Start Date End Date Inderjit Narayan DO [facility] [place] [address] PCP - General Family Practice 04/09/23 08/29/23 documented as of this encounter
--- OUTSIDE RECORDS SUMMARY | 2024-08-19 06:48 | XMS_ITS | Encounter Summary ---
Author Organization [facility] Address [address] [place] [address] Care Team Providers Care Rhia Name Role Phone Inderjit Narayan DO Primary Care Provider + Encounter Details Date Type Department Care Team (Late st Contact Info) Description 09/14/2005 Outpatient Historical [facility] Medicine - [facility] [place] [address] [facility] [address] [place] [address] Tayler Viera MD [address] [place] [address] Social History Tobacco Use Types [...] on filedocumented in this encounter Care Teams Rhia Relationship Specialty Start Date End Date Inderjit Narayan DO [facility] [place] [address] PCP - General Family Practice 04/09/23 08/29/23 documented as of this encounter
--- OUTSIDE RECORDS SUMMARY | 2024-08-19 06:48 | XMS_ITS | Encounter Summary ---
Author Organization [facility] Address [address] [place] [address] Care Team Providers Care Paleologist Name Role Phone Inderjit Narayan DO Primary Care Provider + Encounter Details Date Type Department Care Team (Late st Contact Info) Description 10/29/2003 Outpatient Historical [facility] Medicine - [facility] [place] [address] [facility] [address] [place] [address] Tayler Viera MD [address] [place] [address] Social History Tobacco Use Types [...] on filedocumented in this encounter Care Teams Paleologist Relationship Specialty Start Date End Date Inderjit Narayan DO [facility] [place] [address] PCP - General Family Practice 04/09/23 08/29/23 documented as of this encounter
--- OUTSIDE RECORDS SUMMARY | 2024-08-19 06:48 | XMS_ITS | Encounter Summary ---
Author Organization [facility] Address [address] [place] [address] Care Team Providers Care Rig Builder Helper Name Role Phone Inderjit Narayan DO Primary Care Provider + Encounter Details Date Type Department Care Team (Late st Contact Info) Description 07/16/2000 Outpatient Historical [facility] Medicine - [facility] [place] [address] [facility] [address] [place] [address] Tayler Viera MD [address] [place] [address] Social History Tobacco Use Types [...] on filedocumented in this encounter Care Teams Rig Builder Helper Relationship Specialty Start Date End Date Inderjit Narayan DO [facility]1 [facility] [place] [address] PCP - General Family Practice 04/09/23 08/29/23 documented as of this encounter
--- OUTSIDE RECORDS SUMMARY | 2024-08-19 06:48 | XMS_ITS | Encounter Summary ---
Author Organization [facility] Address [address] [place] [address] Care Team Providers Care Telemetry Registered Nurse Name Role Phone Inderjit Narayan DO Primary Care Provider + Encounter Details Date Type Department Care Team (Late st Contact Info) Description 09/08/2006 Outpatient Historical [facility] Medicine - [facility] [place] [address] [facility] [address] [place] [address] Tayler Viera MD [address] [place] [address] Social History Tobacco Use Types [...] on filedocumented in this encounter Care Teams Telemetry Registered Nurse Relationship Specialty Start Date End Date Inderjit Narayan DO [facility] [place] [address] PCP - General Family Practice 04/09/23 08/29/23 documented as of this encounter
--- OUTSIDE RECORDS SUMMARY | 2024-08-19 06:48 | XMS_ITS | Encounter Summary ---
Author Organization [facility] Address [address] [place] [address] Care Team Providers Care Public Affairs Manager Name Role Phone Inderjit Narayan DO Primary Care Provider + Encounter Details Date Type Department Care Team (Late st Contact Info) Description 01/31/2002 Outpatient Historical [facility] Medicine - [facility] [place] [address] [facility] [address] [place] [address] Tayler Viera MD [address] [place] [address] Social History Tobacco Use Types [...] on filedocumented in this encounter Care Teams Public Affairs Manager Relationship Specialty Start Date End Date Inderjit Narayan DO [facility] [place] [address] PCP - General Family Practice 04/09/23 08/29/23 documented as of this encounter
--- OUTSIDE RECORDS SUMMARY | 2024-08-19 06:48 | XMS_ITS | Encounter Summary ---
Author Organization [facility] Address [address] [place] [address] Care Team Providers Care Office Support Name Role Phone Inderjit Narayan DO Primary Care Provider + Encounter Details Date Type Department Care Team (Late st Contact Info) Description 03/06/2005 Outpatient Historical [facility] Medicine - [facility] [place] [address] [facility] [address] [place] [address] Tayler Viera MD [address] [place] [address] Social History Tobacco Use Types [...] on filedocumented in this encounter Care Teams Office Support Relationship Specialty Start Date End Date Inderjit Narayan DO [facility] [address] PCP - General Family Practice 04/09/23 08/29/23 documented as of this encounter
--- OUTSIDE RECORDS SUMMARY | 2024-08-19 06:48 | XMS_ITS | Encounter Summary ---
Author Organization [facility] Address [address] [place] [address] Care Team Providers Care Powdered Sugar Pulverizer Operator Name Role Phone Inderjit Narayan DO Primary Care Provider + Encounter Details Date Type Department Care Team (Late st Contact Info) Description 06/27/2002 Outpatient Historical [facility] Medicine - [facility] [place] [address] [facility] [address] [place] [address] Tayler Viera MD [address] [place] [address] Social History Tobacco Use Types [...] on filedocumented in this encounter Care Teams Powdered Sugar Pulverizer Operator Relationship Specialty Start Date End Date Inderjit Narayan DO [facility] [place] [address] PCP - General Family Practice 04/09/23 08/29/23 documented as of this encounter
--- OUTSIDE RECORDS SUMMARY | 2024-08-19 06:48 | XMS_ITS | Encounter Summary ---
Author Organization [facility] Address [address] [place] [address] Care Team Providers Care Port Traffic Manager Name Role Phone Inderjit Narayan DO Primary Care Provider + Encounter Details Date Type Department Care Team (Late st Contact Info) Description 06/23/1999 Outpatient Historical [facility] Medicine - [facility] [place] [address] [facility] [address] [place] [address] Tayler Viera MD [address] [place] [address] Social History Tobacco Use Types [...] on filedocumented in this encounter Care Teams Port Traffic Manager Relationship Specialty Start Date End Date Inderjit Narayan DO [facility] [place] [address] PCP - General Family Practice 04/09/23 08/29/23 documented as of this encounter
--- OUTSIDE RECORDS SUMMARY | 2024-08-19 06:48 | XMS_ITS | Encounter Summary ---
Author Organization [facility] Address [address] [place] [address] Care Team Providers Care Meter Reading Clerk Name Role Phone Inderjit Narayan DO Primary Care Provider + Encounter Details Date Type Department Care Team (Late st Contact Info) Description 05/02/2007 Outpatient Historical [facility] Medicine - [facility] [place] [address] [facility] [address] [place] [address] Robin Dexter MD [address] [place] [address] Social History Tobacco Use Types Packs/Day Years Used Date Smoking Tobacco: Never Assessed Sex and Gender Information Value Date Recorded Sex Assigned at Not on file Gender Identity Not on file Sexual Orientation Not on file documented as of this encounter Plan of Treatment Not on file documented as of this encounter Visit Diagnoses Not on filedocumented in this encounter Care Teams Meter Reading Clerk Relationship Specialty Start Date End Date Inderjit Narayan DO [address] [place] [address] PCP - General Family Practice 04/09/23 08/29/23 documented as of this encounter
--- OUTSIDE RECORDS SUMMARY | 2024-08-19 06:48 | XMS_ITS | Encounter Summary ---
Author Organization [facility] Address [address] [place] [address] Care Team Providers Care Farm Butcher Name Role Phone RomelbentleyInderjit murdock Nayeli CHRISTIANSEN Primary Care Provider + Encounter Details Date Type Department Care Team (Late st Contact Info) Description 09/28/2008 Outpatient Historical [facility] Cristela Gant MD [address] [place] [address] Blood in Stool Social History [...] Priority Date/Time Associated Diagnosis Comments PATHOLOGY Routine 09/28/2008 1:15 PM SAP BW ARCHITECT C. DIFFICILE DETECTION Routine 09/28/2008 12:57 PM SAP BW ARCHITECT FECAL LEUKOCYTES STAIN Routine 09/28/2008 12:57 PM SAP BW ARCHITECT OVA AND PARASITE SCREEN Routine 09/28/2008 12:57 PM SAP BW ARCHITECT STOOL CULTURE W/SHIGA TOXIN Routine 09/28/2008 12:57 PM SAP BW ARCHITECT documented in this encounter Results * PATHOLOGY (09/28/2008 1:15 PM SAP BW ARCHITECT) FINAL REPORT [facility] ? [place], [place] ??[address] ? Patient: ??SONG ALDANA ? : ??1950 ? Procedure Date: ??09/28/2008 ? Accession Date: ??09/28/2008 ? Case No: ??[id number] ? Ordering Dr: ??CRISTELA GNAT ? Case types AW, BW, FW, NW and SH are performed by [facility] ? Ctr, [place], [place] ?SURGICAL PATHOLOGY & NON-GYNECOLOGIC CYTOPATHOLOGY REPORT ? DIAGNOSIS ? LARGE INTESTINE, LEFT COLON, BIOPSY: ? - ACUTE ISCHEMIC-TYPE INJURY PATTERN, MILD AND FOCAL (SEE DESCRIPTION). ? - MILD ACUTE INFLAMMATION, FOCAL. ? LARGE INTESTINE, DESCENDING COLON, BIOPSY: ? - TUBULAR ADENOMA. ? Specimen Description: ? (1) Left colon biopsy; (2) descending colon polyp. ? Operative Procedure: ? Colonoscopy. ? Patient Information/Histo ry/Diagnosis: ? (1) Acute inflammation. Please help characterize. Endoscopic appearance is ? non-specific. Infectious vs. other. (2) Colon polyp(s). Adenomatous vs. ? hyperplastic vs. other. ? Gross: ? Two containers are received labeled Song Aldana. The first specimen is ? received in a container labeled left colon biopsy. It consists of three ? pieces of pate tissue ranging from 0.2 to 0.3 cm in greatest dimension. The ? specimen is submitted entirely labeled A1. ? The second specimen is received in a container labeled descending colon ? polyp. It consists of a single piece of pate tissue measuring 0.4 x 0.4 x ? 0.4 cm. The specimen is submitted entirely labeled B1. ? ASAF/GERARD 09.28.2008 06:03 pm ? Microscopic: ? The slides are labeled [id number] and Song Aldana. ? The left colon biopsy consists of colonic mucosa showing a few small foci ? of lamina propria eosinophilia, one associated with a few withered crypts. ? A few apoptotic bodies are present in crypt epithelium. There is very focal ? mild acute inflammation with a few neutrophils in the lamina propria, ? surface epithelium and a single crypt. The findings are minimal and focal, ? but suggest an acute ischemic-type injury pattern. This may reflect true ? ischemia but may also be seen in association with a wide variety of drugs ? and certain infectious agents. The descending colon biopsy consists of a ? tubular adenoma. ? ANNABELG/VIV 10.01.2008 11:53 am ? Staging Form: ? No. ? ELECTRONIC SIGNATURE FOR ENE BLACK M.D.- 10/01/08 05:12 pm INTERFACE SYSTEM 09/28/2008 1:15 PM SAP BW ARCHITECT Cristela Gant MD PATHOLOGY/CYTOLOGY O RDERABLES INTERFACE SYSTEM Refer to clinic/hospital department * OVA AND PARASITE SCREEN (09/28/2008 12:57 PM SAP BW ARCHITECT) FINAL REPORT ? Concentration : No ova or parasites seen. Trichrome: No ova or parasites seen. ? [facility] Stool specimen (specimen) 09/28/2008 12:57 PM SAP BW ARCHITECT 09/28/2008 1:49 PM SAP BW ARCHITECT Narrative INTERFACE SYSTEM - 10/01/2008 11:56 AM SAP BW ARCHITECT Performed by [email or web address] [address] [address]formed [email or web address] [address] Cristela Gant MD MICROBIOLOGY - GENER AL ORDERABLES Performing Organization Address [facility] Phone Number INTERFACE SYSTEM Refer to clinic/hospital department [facility] CLIA# [id number] [address] [place] [address] * FECAL LEUKOCYTES STAIN (09/28/2008 12:57 PM SAP BW ARCHITECT) FINAL REPORT Rare WBC's seen [facility] Stool specimen (specimen) 09/28/2008 12:57 PM SAP BW ARCHITECT 09/28/2008 1:49 PM SAP BW ARCHITECT Cristela Gant MD MICROBIOLOGY - GENER AL ORDERABLES Performing Organization Address [facility] Phone Number INTERFACE SYSTEM Refer to clinic/hospital department [facility] CLIA# [id number] [address] [place] [address] * STOOL CULTURE (09/28/2008 12:57 PM SAP BW ARCHITECT) FINAL REPORT ? No Salmonella isolated. No Shigella isolated. No Escherichia coli serogroup O157:H7 isolated. No Camplylobacter isolated. ? [facility] Stool specimen (specimen) 09/28/2008 12:57 PM SAP BW ARCHITECT 09/28/2008 1:49 PM SAP BW ARCHITECT Cristela Gant MD MICROBIOLOGY - GENER AL ORDERABLES Performing Organization Address [facility] Phone Number INTERFACE SYSTEM Refer to clinic/hospital department [facility] CLIA# [id number] [address] [place] [address] * CLOSTRIDIUM DIFFICILE TOXIN (09/28/2008 12:57 PM SAP BW ARCHITECT) FINAL REPORT ? NO Clostridium difficile Toxin A or B detected by EIA. A negative result does not rule out C. difficile associated diarrhea or colitis. ? [facility] Stool specimen (specimen) 09/28/2008 12:57 PM SAP BW ARCHITECT 09/28/2008 1:49 PM SAP BW ARCHITECT Cristela Gant MD MICROBIOLOGY - GENER AL ORDERABLES Performing Organization Address [facility] Phone Number INTERFACE SYSTEM Refer to clinic/hospital department [facility] CLIA# [id number] [address] [place] [address] documented in this encounter Visit Diagnoses Diagnosis Blood in stool documented in this encounter Care Teams Farm Butcher Relationship Specialty Start Date End Date Inderjit Narayan DO [address] [place] [address] PCP - General Family Practice 04/09/23 08/29/23 documented as of this encounter
--- OUTSIDE RECORDS SUMMARY | 2024-08-19 13:46 | XMS_ITS | Encounter Summary ---
Author Organization [facility] Address [address] [place] [address] Care Team Providers Care Quartz Miner Blasting Name Role Phone Landry Fernandez DO Primary Care Provider [phone] Reason for Visit * Reason Comments Cough Encounter Details Date Type Department Care Team (Late st Contact Info) Description 04/19/2016 10:45 AM CDT Office Visit [facility] AT [address] [address] Upper respiratory tract infection, unspecified [...] note were not included. Upper Respiratory Infection HEALTH INFORMATION SPECIALIST: An upper respiratory infection is also called [...] ask them during your visits. ?? 2016 Remember The Member. Information is for End User's use only and may not be sold, redistributed or otherwise used for commercial purposes. All illustrations and images included in CareNotes?? are the copyrighted property of [employer] or [employer]. The above information is an educational therapy teacher only. It is not intended as medical [...] fluticasone propionate (FLONASE) 50 MCG/ACT nasal spray [place] 2 Sprays into each nostril once daily [...] Primary documented in this encounter Care Teams Quartz Miner Blasting Relationship Specialty Start Date End Date Landry Fernandez DO PCP - General Family Medicine 04/19/16 documented as of this encounter
--- OUTSIDE RECORDS SUMMARY | 2024-08-19 13:46 | XMS_ITS | Clinical Summary ---
Author Organization [facility] Address [address] [place] [address] Care Team Providers Care Industrial Coffee Grinder Name Role Phone Landry Fernandez DO Primary Care Provider [phone] Source Comments [facility] [employer],non-owned Affiliates and Associated Physician Practices is amultiple site organization consisting of ambulatory clinics and hospital sitesin [place], [place] and [place]. This disclosure is being madepursuant to the Care Everywhere program and may not contain all information available regarding this patient. Last updated 18.[facility] [employer] Allergies Active Allergy Reactions Criticality Noted Date Comments Methylprednisolone Rash Medium 07/12/2012 redness Sulfamethoxazole W-Trimethoprim Rash Medium 01/2010 Medications * Be aware that medications may not be up to date on this document. Alwaysverify current medications with the patient. Medication Sig Dispensed Refills Start Date End Date Status fluticasone propionate (FLONASE) 50 MCG/ACT nasal spray [place] 2 Sprays into each nostril once daily [...] Comments Blood Pressure 110/70 06/20/2019 10:06 AM EPOXY SPECIALIST Pulse 80 06/20/2019 10:06 AM EPOXY SPECIALIST Temperature 36.8 ??C (98.3 ??F) 06/20/2019 10:[address] Respiratory Rate 17 06/20/2019 10:06 AM EPOXY SPECIALIST Oxygen Saturation 96% 06/20/2019 10:06 AM EPOXY SPECIALIST Inhaled Oxygen Concentration - - Weight 92.5 kg (204 lb) 06/20/2019 10:06 AM EPOXY SPECIALIST Height 180.3 cm (5' 11 ) 06/20/2019 10:06 AM EPOXY SPECIALIST Body Mass Index 28.45 06/20/2019 10:06 AM EPOXY SPECIALIST Plan of Treatment Health Maintenance Due Date [...] age to complete this topic Care Teams Industrial Coffee Grinder Relationship Specialty Start Date End Date Landry Fernandez DO PCP - General Family Medicine 04/19/16
--- OUTSIDE RECORDS SUMMARY | 2024-08-19 13:46 | XMS_ITS | Encounter Summary ---
Author Organization [facility] Address [address] [place] [address] Care Team Providers Care Salary Manager Name Role Phone FernandezLandry Primary Care Provider Reason for Visit * Reason Onset Date Comments Follow-up 06/22/2019 Encounter Details Date Type Department Care Team (Late st Contact Info) Description 06/22/2019 Telephone [facility] [employer] [facility] [address] [place] [address] Leslie Le APRN-CNP [address] [place] [address] Follow-up Social History Tobacco Use [...] Encouraged patient to call service center at [phone] if they have any questions, concerns, or further acute care needs. MAYANK Mix 06/22/2019 2:06 PM ALLATIONS INSPECTOR documented in this encounter Plan of Treatment Not on file documented as of this encounter Visit Diagnoses Not on filedocumented in this encounter Care Teams Salary Manager Relationship Specialty Start Date End Date Landry Fernandez DO PCP - General Family Medicine 04/19/16 documented as of this encounter
--- OUTSIDE RECORDS SUMMARY | 2024-08-19 13:46 | XMS_ITS | Referral Summary ---
Author Organization [facility] Address [address] [place] [address] Care Team Providers Care Adz Worker Name Role Phone Landry Fernandez DO Primary Care Provider [phone] Source Comments [facility],non-owned Affiliates and Associated Physician Practices is amultiple site organization consisting of ambulatory clinics and hospital sitesin [place], [place], [place] and [place]. This disclosure is being madepursuant to the Care Everywhere program and may not contain all information available regarding this patient. Last updated 18.[facility] [employer] Allergies Active Allergy Reactions Criticality Noted Date Comments Methylprednisolone Rash Medium 07/12/2012 redness Sulfamethoxazole W-Trimethoprim Rash Medium 01/2010 Medications * Be aware that medications may not be up to date on this document. Alwaysverify current medications with the patient. Medication Sig Dispensed Refills Start Date End Date Status fluticasone propionate (FLONASE) 50 MCG/ACT nasal spray [place] 2 Sprays into each nostril once daily [...] Comments Blood Pressure 110/70 06/20/2019 10:06 AM PILE DRIVING SETTER Pulse 80 06/20/2019 10:06 AM PILE DRIVING SETTER Temperature 36.8 ??C (98.3 ??F) 06/20/2019 10:[address] Respiratory Rate 17 06/20/2019 10:06 AM PILE DRIVING SETTER Oxygen Saturation 96% 06/20/2019 10:06 AM PILE DRIVING SETTER Inhaled Oxygen Concentration - - Weight 92.5 kg (204 lb) 06/20/2019 10:06 AM PILE DRIVING SETTER Height 180.3 cm (5' 11 ) 06/20/2019 10:06 AM PILE DRIVING SETTER Body Mass Index 28.45 06/20/2019 10:06 AM PILE DRIVING SETTER Plan of Treatment Not on file Care Teams Adz Worker Relationship Specialty Start Date End Date Landry Fernandez DO PCP - General Family Medicine 04/19/16
--- OUTSIDE RECORDS SUMMARY | 2024-08-19 13:46 | XMS_ITS | Encounter Summary ---
Author Organization [facility] Address [address] [place] [address] Care Team Providers Care Color Adviser Name Role Phone Landry Fernandez DO Primary Care Provider [phone] Encounter Details Date Type Department Care Team (Late st Contact Info) Description 11/04/2020 Orders Only [facility] - COVID Vax [address] [place] [address] Lorenzo Arciniega MD [address] [place] [address] Need for vaccination Social History [...] disease documented in this encounter Care Teams Color Adviser Relationship Specialty Start Date End Date Landry Fernandez DO PCP - General Family Medicine 04/19/16 documented as of this encounter
--- OUTSIDE RECORDS SUMMARY | 2024-08-19 13:46 | XMS_ITS | Encounter Summary ---
Author Organization [facility] Address [address] [place] [address] Care Team Providers Care Violin Repairer Name Role Phone FernandezLandry Primary Care Provider [phone] Reason for Visit * Reason Comments Sinusitis Encounter Details Date Type Department Care Team (Late st Contact Info) Description 06/20/2019 10:00 AM PEDAL ASSEMBLER Office Visit [facility] [address] [place] [address] Provider, Radha Exp Namenicholas Acute [...] Comments Blood Pressure 110/70 06/20/2019 10:06 AM PEDAL ASSEMBLER Pulse 80 06/20/2019 10:06 AM PEDAL ASSEMBLER Temperature 36.8 ??C (98.3 ??F) 06/20/2019 10:06 AM C Respiratory Rate 17 06/20/2019 10:06 AM PEDAL ASSEMBLER Oxygen Saturation 96% 06/20/2019 10:06 AM PEDAL ASSEMBLER Inhaled Oxygen Concentration - - Weight 92.5 kg (204 lb) 06/20/2019 10:06 AM PEDAL ASSEMBLER Height 180.3 cm (5' 11 ) 06/20/2019 10:06 AM PEDAL ASSEMBLER Body Mass Index 28.45 06/20/2019 10:06 AM PEDAL ASSEMBLER documented in this encounter Patient Instructions * Patient Instructions* Nirali Ledesma APRN-AIR COMPRESSOR ENGINEER - 06/20/2019 10:18 AM PEDAL ASSEMBLER Images from the original note were not [...] REQUIRES IMMEDIATE EMERGENCY ATTENTION. Patient Education Sinusitis FORESTRY CONSERVATION WORKER: Sinusitis is inflammation or infection of your [...] ask them during your visits. ?? Copyright [employer] 2019 Information is for End User's use only and may not be sold, redistributed or otherwise used for commercial purposes. All illustrations and images included in CareNotes?? are the copyrighted property of The [employer], [employer]. or [employer] The above information is an supervisory aide only. It is not intended as medical advice for individual conditions or treatments. Talk to your doctor, nurse or pharmacist before following any medical regimen to see if it is safe and effective for you. L ASSEMBLER documented in this encounter Progress Notes * [...] fluticasone propionate (FLONASE) 50 MCG/ACT nasal spray [place] 2 Sprays into each nostril once daily [...] 14 tablet Refill: 0 Nirali Ledesma DNP, ACCOUNT ASSISTANT-BC 06/20/2019 10:53 AM L ASSEMBLER documented in this encounter Plan of Treatment Not on file documented as of this encounter Visit Diagnoses Diagnosis Acute non-recurrent maxillary sinusitis- Primary documented in this encounter Care Teams Violin Repairer Relationship Specialty Start Date End Date Landry Fernandez DO PCP - General Family Medicine 04/19/16 documented as of this encounter
--- OUTSIDE RECORDS SUMMARY | 2024-08-19 13:46 | XMS_ITS | Encounter Summary ---
Author Organization [facility] Address [address] [place] [address] Care Team Providers Care Case Packer Name Role Phone Landry Fernandez DO Primary Care Provider [phone] Reason for Visit * Reason Onset Date Comments Results 11/13/2018 Encounter Details Date Type Department Care Team (Late st Contact Info) Description 11/13/2018 Telephone [facility] [email or web address] [facility] [id number] [place] [address] Nirali Ledesma APRN-CNP [address] [place] [address] Results Social History Tobacco Use [...] on filedocumented in this encounter Care Teams Case Packer Relationship Specialty Start Date End Date Landry Fernandez DO PCP - General Family Medicine 04/19/16 documented as of this encounter
--- OUTSIDE RECORDS SUMMARY | 2024-08-19 13:46 | XMS_ITS | Patient Health Summary ---
Author Organization [facility] Address [address] [place] [address] Care Team Providers Care Pipe Coverer Name Role Phone Landry Fernandez DO Primary Care Provider [phone] Note from [facility],non-owned Affiliates and Associated Physician Practices is amultiple site organization consisting of ambulatory clinics and hospital sitesin [place], [place], [place]. This disclosure is being madepursuant to the Care Everywhere program and may not contain all information available regarding this patient. Last updated 18.[facility] Allergies * Methylprednisolone(Rash) -Medium Criticality * Sulfamethoxazole W-Trimethoprim(Rash) -Medium Criticality Medications * Be aware that medications may not be up to date on this document. Alwaysverify current medications with the patient. * fluticasone propionate (FLONASE) 50 MCG/ACT nasal spray [place] 2 Sprays into each nostril once daily [...] Comments Blood Pressure 110/70 06/20/2019 10:06 AM IMPORTER OR EXPORTER Pulse 80 06/20/2019 10:06 AM IMPORTER OR EXPORTER Temperature 36.8 ??C (98.3 ??F) 06/20/2019 10:[address] Respiratory Rate 17 06/20/2019 10:06 AM IMPORTER OR EXPORTER Oxygen Saturation 96% 06/20/2019 10:06 AM IMPORTER OR EXPORTER Inhaled Oxygen Concentration - - Weight 92.5 kg (204 lb) 06/20/2019 10:06 AM IMPORTER OR EXPORTER Height 180.3 cm (5' 11 ) 06/20/2019 10:06 AM IMPORTER OR EXPORTER Body Mass Index 28.45 06/20/2019 10:06 AM IMPORTER OR EXPORTER Care Teams Pipe Coverer Relationship Specialty Start Date End Date Landry Fernandez DO PCP - General Family Medicine 04/19/16
--- OUTSIDE RECORDS SUMMARY | 2024-08-19 13:46 | XMS_ITS | Encounter Summary ---
Author Organization [facility] Address [address] [place] [place] [address] Care Team Providers Care Material Mixer Name Role Phone Landry Fernandez DO Primary Care Provider [phone] Encounter Details Date Type Department Care Team (Late st Contact Info) Description 11/04/2020 Orders Only [facility] - Cardiology [address] [place] [address] Emy Ballard RN Social History [...] on filedocumented in this encounter Care Teams Material Mixer Relationship Specialty Start Date End Date Landry Fernandez DO PCP - General Family Medicine 04/19/16 documented as of this encounter
--- OUTSIDE RECORDS SUMMARY | 2024-08-19 13:46 | XMS_ITS | Encounter Summary ---
Author Organization [facility] Address [address] [address] Care Team Providers Care Antique Automobiles Repairer Name Role Phone Landry Fernandez Primary Care Provider [phone] Reason for Visit * Reason Comments Cough Encounter Details Date Type Department Care Team (Late st Contact Info) Description 11/11/2018 4:20 PM CDT Office Visit [facility] [address] [place] [address] Provider, Radha Exp Namenicholas Acute [...] Patient Instructions * Patient Instructions* Nirali Ledesma APRN-MANAGER MEDIA - 11/11/2018 4:57 PM CDT Images from [...] AND REQUIRES IMMEDIATE EMERGENCY ATTENTION. Acute Bronchitis BRANCH ADMINISTRATOR: Acute bronchitis is swelling and irritation in [...] them during your follow-up visits. ?? Copyright [employer] 2019 Information is for End User's use only and may not be sold, redistributed or otherwise used for commercial purposes. All illustrations and images included in CareNotes?? are the copyrighted property of [employer]. or [employer] The above information is an behavioral health aide only. It is not intended as medical advice for individual conditions or treatments. Talk to your doctor, nurse or pharmacist before following any medical regimen to see if it is safe and effective for you. Sinusitis BRANCH ADMINISTRATOR: Sinusitis is inflammation or infection of your [...] ask them during your visits. ?? Copyright [employer] 2019 Information is for End User's use only and may not be sold, redistributed or otherwise used for commercial purposes. All illustrations and images included in CareNotes?? are the copyrighted property of [employer]. or [employer] The above information is an behavioral health aide only. It is not intended as [...] . Sick Contacts: Yes, grandchildren sick and tqwzjlba-kk-pwy with strep. Past Medical History: Diagnosis Date [...] fluticasone propionate (FLONASE) 50 MCG/ACT nasal spray [place] 2 Sprays into each nostril once daily [...] organism documented in this encounter Care Teams [employer] Repairer Relationship Specialty Start Date End Date Landry Fernandez DO PCP - General Family Medicine 04/19/16 documented as of this encounter
--- OUTSIDE RECORDS SUMMARY | 2024-08-19 13:47 | XMS_ITS | Encounter Summary ---
Author Organization [facility] Address [address] [place] [address]. [place] [address] [place] [address] Care Team Providers Care Electric Vehicle Electrician Name Role Phone Inderjit Narayan DO Primary Care Provider + Reason for Visit * Reason Comments Cough C/o cough x 1 week Sinus Problem Green/red mucous x 1 week Encounter Details Date Type Department Care Team (Late st Contact Info) Description 11/17/2023 8:40 AM CDT Telemedicine [facility] Family & Internal Medicine [place] [address] [place] [address] Liset Dasilva FNP [address] [place], [place] [id number] Cough (C/o cough x 1 week); Sinus [...] on file Legal Sex Male 10:29 AM RIB TRIM SEPARATOR Gender Identity Not on file Sexual Orientation [...] this medication You may continue to use wzkn-pbn-mhyrmww medications as needed for symptom relief Get [...] aware that the same confidentiality and information clerk practices apply. 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 Tobacco Use Smoking status: Never Passive exposure: Never Smokeless tobacco: Never Vaping Use Vaping status: Never Used Substance and Sexual Activity Alcohol use: Never Drug use: Never Sexual activity: Yes Partners: Female control/protection: Other-see comments Comment: Vasectomy Social Determinants of Health Financial Resource Strain: Low Risk (10/10/2021) Received from [place], [place] and [facility], [place], [place] and [facility] Financial Resource Strain How hard is it for you to pay for the very basics like food, housing, medical care, and heating?: Not hard at all Food Insecurity: No Food Insecurity (10/10/2021) Received from [place], [place] and [facility], [place], [place] and [facility] Food Insecurity In the past 12 months, have you worried that your food would run out before you had money to buy more?: Never true In the past 12 months, did you run out of food and didn't have money to buy more?: Never true Transportation Needs: Unknown (10/10/2021) Received from [place], [place] and [facility], [place], [place] and [facility] Transportation Needs In the past 12 months, has lack of transportation kept you from medical appointments or from getting medications?: No Intimate Partner Violence: Not At Risk (04/09/2023) Received from [place], [place] and [facility] Intimate Partner Violence [...] ear normal. Nose: Nose normal. Mouth/Throat: Lips: [place]. Mouth: Mucous membranes are moist. Eyes: General: [...] medication as prescribed and to continue using vrii-ede-klkkgje medication as needed for symptom relief We [...] st Contact Info) Description 08/22/2024 8:00 AM RIB TRIM SEPARATOR Laboratory Only [facility] Family & Internal Medicine - [address] [address] Inderjit Narayan DO [address] [place] [address] 09/08/2024 2:30 PM RIB TRIM SEPARATOR Appointment [facility] [place] [address] [place] [address] Guido Rider DO [address] [facility] [address] [place] [address] 10/05/2024 3:00 PM RIB TRIM SEPARATOR Appointment [facility] [place] [address] Guido Rider DO [address] [facility] [address] [place] [address] 10/13/2024 10:30 AM RIB TRIM SEPARATOR Office Visit [facility] Multispecialty Care - [facility] 3 [facility] [address] [place] [phone] Guido Rider DO [address] [facility] [address] [place] [address] 01/08/2025 2:20 PM CDT Office Visit [facility] Family & Internal Medicine - [address] [address] Inderjit Narayan DO [address] [place] [address] documented as of this encounter Visit Diagnoses Diagnosis Acute cough- Primary Acute non-recurrent frontal sinusitis Otalgia of both ears Otalgia, unspecified Sinus headache Headache documented in this encounter Care Teams Electric Vehicle Electrician Relationship Specialty Start Date End Date Inderjit Narayan DO [address] [place] [address] PCP - General 12/19/22 documented as of this encounter
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
--- OUTSIDE RECORDS SUMMARY | 2024-08-19 13:47 | XMS_ITS | Encounter Summary ---
Author Organization [facility] Address [address] [place] [address]. [place] [address] [place] [address] Care Team Providers Care Sawyer Helper Name Role Phone Inderjit Narayan DO [...] on file Legal Sex Male 10:29 AM AERIAL GUNNER SUPERINTENDENT Gender Identity Not on file Sexual Orientation Not on file Occupation Industry Job Start Date Job End Date Not on file Not on file Not on file Not on file documented as of this encounter Plan of Treatment Upcoming Encounters Date Type Department Care Team (Late st Contact Info) Description 08/22/2024 8:00 AM AERIAL GUNNER SUPERINTENDENT Laboratory Only [facility] Medical Group Family & Internal Medicine - [place] [address] [place] [address] Inderjit Narayan DO [address] [place] [address] 09/08/2024 2:30 PM AERIAL GUNNER SUPERINTENDENT Appointment [facility] [address] [place] [address] Guido Rider, DO 3 [facility] [address] [place] [address] 10/05/2024 3:00 PM AERIAL GUNNER SUPERINTENDENT Appointment [facility] Respiratory Therapy [facility] [place] [address] Guido Rider, DO 3 [facility] [address] [place] [address] 10/13/2024 10:30 AM AERIAL GUNNER SUPERINTENDENT Office Visit [facility] Multispecialty Care - [facility] [address] [facility] [address] [place] [address] Guido Rider, DO 3 [facility] [address] [place] [address] 01/08/2025 2:20 PM CDT Office Visit [facility] Medical [facility] Family & Internal Medicine [address] [address] Inderjit Narayan DO [address] [place] [address] documented as of this encounter Visit Diagnoses Not on filedocumented in this encounter Care Teams Sawyer Helper Relationship Specialty Start Date End Date Inderjit Narayan DO [address] [place] [address] PCP - General 12/19/22 documented as of this encounter
--- OUTSIDE RECORDS SUMMARY | 2024-08-19 13:47 | XMS_ITS | Encounter Summary ---
Author Organization [facility] Address [address] [place] [address]. 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 Gender Identity Not on file Sexual Orientation Not on file Occupation Industry Job Start Date Job End Date Not on file Not on file Not on file Not on file documented as of this encounter Plan of Treatment Upcoming Encounters Date Type Department Care Team (Late st Contact Info) Description 08/22/2024 8:00 AM TRUCK FARMER Laboratory Only [facility] Medical Group Family & Internal Medicine - [place] [address] [place] [address] Inderjit Narayan DO [address] [place] [address] 09/08/2024 2:30 PM TRUCK FARMER Appointment [facility] [address] [place] [address] Guido Rider, DO 3 [facility] [address] [place] [address] 10/05/2024 3:00 PM TRUCK FARMER Appointment [facility] Respiratory Therapy [facility] [place] [address] Guido Rider, DO 3 [facility] [address] [place] [address] 10/13/2024 10:30 AM TRUCK FARMER Office Visit [facility] Multispecialty Care - [facility] [address] [facility] [address] [place] [address] Guido Rider, DO 3 [facility] [address] [place] [address] 01/08/2025 2:20 PM CDT Office Visit [facility] Medical [facility] Family & Internal Medicine [address] [address] Inderjit Narayan DO [address] [place] [address] documented as of this encounter Visit Diagnoses Not on filedocumented in this encounter Care Teams Track Laborer Relationship Specialty Start Date End Date Inderjit Narayan DO [address] [place] [address] PCP - General 12/19/22 documented as of this encounter
--- OUTSIDE RECORDS SUMMARY | 2024-08-19 13:47 | XMS_ITS | Encounter Summary ---
Author Organization [facility] Address [address] [place] [address]. [place] [address] [place] [address] Care Team Providers Care Youth Worker Name Role Phone Inderjit Narayan DO Primary Care Provider + Reason for Visit * Reason Onset Date Comments Problem 11/16/2023 Sinus inf Encounter Details Date Type Department Care Team (Late st Contact Info) Description 11/16/2023 Telephone [facility] Medical Group Family & Internal Medicine [facility] [address] [place] [address] Inderjit Narayan DO [address] [place] [address] Problem (Sinus inf) Social History [...] on file Legal Sex Male 10:29 AM PIT CLERK Gender Identity Not on file Sexual [...] off work till 3pm Call back #: [phone] Allergies: Allergies Allergen Reactions Methylprednisolone Rash redness Sulfa Antibiotics Rash Pharmacy: [id number] - [place], [place] - [facility] AMADA ELIZABETH [[id number]] documented in this encounter Plan of Treatment Upcoming Encounters Date Type Department Care Team (Late st Contact Info) Description 08/22/2024 8:00 AM PIT CLERK Laboratory Only [facility] Medical Group Family & Internal Medicine - [address] [address] Inderjit Narayan DO [address] [place] [address] 09/08/2024 2:30 PM PIT [address] [facility] [address] [place] [address] Guido Rider, DO 3 [facility] [address] [place] [address] 10/05/2024 3:00 PM PIT CLERK Appointment [facility] [place]piratory [place] [address] Guido Rider, DO 3 [facility] [address] [place] [address] 10/13/2024 10:30 AM PIT CLERK Office Visit [facility] Medical [facility] Multispecialty Care - [facility] [address] [facility] [address] [place] [address] Guido Rider, DO 3 [facility] [address] [place] [address] 01/08/2025 2:20 PM CDT Office Visit [facility] Medical [facility] Family & Internal Medicine [address] [address] Inderjit Narayan DO [address] [place] [address] documented as of this encounter Visit Diagnoses Not on filedocumented in this encounter Care Teams Youth Worker Relationship Specialty Start Date End Date Inderjit Narayan DO [address] [place] [address] PCP - General 12/19/22 documented as of this encounter
--- OUTSIDE RECORDS SUMMARY | 2024-08-19 13:47 | XMS_ITS | Encounter Summary ---
Author Organization [facility] Address [address] [place] [address]. [place] [address] [place] [address] Care Team Providers Care Applications Consultant Name Role Phone Luiz Smalls DO Primary Care Provider + Reason for Referral * Imaging (Routine) - Closed Specialty Diagnoses / Procedures Referred By Contac t Referred To Contact RADIOLOGY Diagnoses Subacute cough Procedures CT CHEST WO CON Luiz Smalls DO [address] [place] [address] Phone: tel: fax: Referral ID Status Reason Start Date Expiration Date Visits Re quested Visits Authorized [id number] Closed 02/29/2024 03/01/2025 1 1 Reason for Visit * Imaging (Routine) - Closed Specialty Diagnoses / Procedures Referred By Contac t Referred To Contact RADIOLOGY Diagnoses Subacute cough Procedures CT CHEST WO CON Luiz Smalls DO [address] [place] [address] Phone: tel: fax: Referral ID Status Reason Start Date Expiration Date Visits Re quested Visits Authorized [id number] Closed 02/29/2024 03/01/2025 1 1 Encounter Details Date Type Department Care Team (Latest Contact Info) Description 03/08/2024 3:27 PM CDT - 03/08/2024 11:59 PM CDT Hospital Encounter [facility] CT [address] [place] [address] Luiz Smalls, DO [address] [place] [address] Discharge Disposition: Home or Self Care (Routine [...] on file Legal Sex Male 10:29 AM CHAIRMAN AND CHIEF EXECUTIVE OFFICER Gender Identity Not on file Sexual Orientation [...] st Contact Info) Description 08/22/2024 8:00 AM CHAIRMAN AND CHIEF EXECUTIVE OFFICER Laboratory Only [facility] Medical Group Family & Internal Medicine [address] [address] Luiz Smalls DO [address] [place] [address] 09/08/2024 2:30 PM CHAIRMAN AND CHIEF EXECUTIVE OFFICER Appointment [facility] [address] [place] [address] Guido Rider DO 3 [facility] [address] [place] [address] 10/05/2024 3:00 PM CHAIRMAN AND CHIEF EXECUTIVE OFFICER Appointment [facility] [place] [address] Guido Rider DO 3 [facility] [address] [place] [address] 10/13/2024 10:30 AM CHAIRMAN AND CHIEF EXECUTIVE OFFICER Office Visit [facility] Multispecialty Care - [facility] [address] [facility] [address] [place] [address] Yefri Ridersohammaikel 3 [facility] [address] [place] [address] 01/08/2025 2:20 PM CDT Office Visit [facility] Family & Internal Medicine - [address] [address] [place] [address] [place] [address] documented as of this encounter Procedures Procedure [...] Cough documented in this encounter Care Teams Applications Consultant Relationship Specialty Start Date End Date Luiz Smalls DO [address] [place] [address] PCP - General 12/19/22 documented as of this encounter
--- OUTSIDE RECORDS SUMMARY | 2024-08-19 13:47 | XMS_ITS | Encounter Summary ---
Author Organization [facility] Address [address] [place] [address]. [place] [address] [place] [address] Care Team Providers Care Band Ripsaw Operator Name Role Phone Inderjit Narayan DO Primary Care Provider + Reason for Visit * Reason Onset Date Comments Referral 03/06/2024 Encounter Details Date Type Department Care Team (Late st Contact Info) Description 03/06/2024 Telephone [facility] Medical Group Family & Internal Medicine [facility] [address] [place] [address] Inderjit Narayan DO [address] [place] [address] Referral Social History Tobacco Use [...] on file Legal Sex Male 10:29 AM FILE KEEPER Gender Identity Not on file Sexual Orientation [...] assessment and it cannot be scheduled at [facility] until May 22 and he would like to know if [place] or [place] could get him in sooner? documented in this encounter Plan of Treatment Upcoming Encounters Date Type Department Care Team (Late st Contact Info) Description 08/22/2024 8:00 AM FILE KEEPER Laboratory Only [facility] Family & Internal Medicine - [address] [address] Inderjit Narayan, DO [address] [place] [address] 09/08/2024 2:30 PM FILE KEEPER Appointment [facility] [address] [place] [address] Guido Rider DO 3 [facility] [address] [place] [address] 10/05/2024 3:00 PM FILE KEEPER Appointment [facility] [place] [address] [facility] [address] [place] [address] 10/13/2024 10:30 AM FILE KEEPER Office Visit [facility] Multispecialty Care - [address] [place] [address] Guido Rider DO 3 [facility] [address] [place] [address] 01/08/2025 2:20 PM CDT Office Visit [facility] Medical Group Family & Internal Medicine [address] [address] [place] [address] [place] [address] documented as of this encounter Visit Diagnoses Not on filedocumented in this encounter Care Teams Band Ripsaw Operator Relationship Specialty Start Date End Date Inderjit Narayan DO [address] [place] [address] PCP - General 12/19/22 documented as of this encounter
--- OUTSIDE RECORDS SUMMARY | 2024-08-19 13:47 | XMS_ITS | Clinical Summary ---
Author Organization [facility] Address [address] [place] [address]. [place] [address] [place] [address] Care Team Providers Care Regional Director Of Finance Name Role Phone Inderjit Narayan DO Primary [...] Type Department Care Team Description 08/15/2024 Telephone [facility] [place] [address] [place] [address] Guido Rider DO Reschedule 07/10/2024 2:20 PM CLINICAL ENGINEER Office Visit [facility] Family & Internal Medicine [address] [address] Inderjit Narayan DO Hand Pain (Right hand and thumb pain for several months. Worse in the morning. ); Hypertension (Presents for routine 3 month follow up. ) 07/10/2024 Travel 06/09/2024 2:20 PM CDT Office Visit [facility] Multispecialty [facility] - [address] [place] [address] Guido Rider DO New Patient 06/09/2024 Travel 06/08/2024 Telephone [facility] Family Internal [address] [address] Inderjit Narayan DO Lab Order [...] 11/17/2018,08/09/2007 Family History Medical History Relation Comments [place] Father Leukemia Grandson Cancer Maternal Grandfather Heart [...] on file Legal Sex Male 10:29 AM CLINICAL ENGINEER Gender Identity Not on file Sexual Orientation Not on file Occupation Industry Job Start Date Job End Date Not on file Not on file Not on file Not on file Last Filed Vital Signs Vital Sign Reading Time Taken Comments Blood Pressure 132/70 07/10/2024 2:19 PM CLINICAL ENGINEER Pulse 72 07/10/2024 2:19 PM CLINICAL ENGINEER Temperature 36.2 ??C (97.2 ??F) 07/10/2024 2:19 PM CS T Respiratory Rate 16 07/10/2024 2:19 PM CLINICAL ENGINEER Oxygen Saturation 95% 07/10/2024 2:19 PM CLINICAL ENGINEER Inhaled Oxygen Concentration - - Weight 96.7 kg (213 lb 3.2 oz) 07/10/2024 2:19 P M CLINICAL ENGINEER Height 180.3 cm (5' 11 ) 07/10/2024 2:19 PM CLINICAL ENGINEER Body Mass Index 29.74 07/10/2024 2:19 PM CLINICAL ENGINEER Plan of Treatment Upcoming Encounters Date Type Department Care Team (Late st Contact Info) Description 08/22/2024 8:00 AM CLINICAL ENGINEER Laboratory Only [facility] Medical Group Family & Internal Medicine - [address] [phone] Inderjit Narayan DO [address] [place] [address] 09/08/2024 2:30 PM CLINICAL ENGINEER Appointment [facility] [address] [place] [address] Guido Rider DO 3 [facility] [address] [place] [address] 10/05/2024 3:00 PM CLINICAL ENGINEER Appointment [facility] [place] [address] Guido Rider DO 3 [facility] [address] [place] [address] 10/13/2024 10:30 AM CLINICAL ENGINEER Office Visit [facility] Multispecialty Care - [facility] 3 [facility] [address] [place] [address] Guido Rider DO 3 [facility] [address] [place] [address] 01/08/2025 2:20 PM CDT Office Visit [facility] Medical [facility] Family & Internal Medicine [address] [address] Inderjit Narayan DO [address] [place] [address] Health Maintenance Due Date Last Done Comments [...] OF SKIN TAGS Routine 07/10/2024 2:56 PM CLINICAL ENGINEER [place] (actinic keratosis) Skin tag HEPATITIS C ANTIBODY Routine 07/19/2023 10:20 AM CLINICAL ENGINEER Essential hypertension, benign Pure hypercholesterolemi a Vitamin D deficiency Need for hepatitis C screening test Screening for prostate cancer Screening for endocrine, metabolic and immunity disorder Screening for lipid disorders from Last 3 Months or Most Recently Relevant to Health Maintenance Results * Skin Tag Removal (07/10/2024 2:56 PM CLINICAL ENGINEER) Narrative Inderjit Narayan DO - 07/10/2024 2:56 PM CLINICAL ENGINEER Inderjit Narayan DO ? 07/10/2024 ??3:05 PM [...] * HEPATITIS C ANTIBODY (07/19/2023 10:20 AM CLINICAL ENGINEER) HEPATITIS C AB NON-REACTI VE NON-REACT ELDER 07/19/2023 6:[address] [facility] Comment: ANTIBODIES TO HCV NOT DETECTED. DOES NOT EXCLUDE THE POSSIBILITY OF EXPOSURE TO HCV. 07/19/2023 10:2 0 AM CLINICAL ENGINEER Inderjit Narayan DO LABORATORY Final Re sult [facility] [address] [place] [address], [id number] from Last 3 Months or Most Recently Relevant to Health [place] [address] MEDICARE [facility] Care Teams Regional Director Of Finance Relationship Specialty Start Date End Date Inderjit Narayan DO [address] [place] [address] (work) PCP - General 12/19/22
--- OUTSIDE RECORDS SUMMARY | 2024-08-19 13:47 | XMS_ITS | Encounter Summary ---
Author Organization [facility] Address [address] [place] [address]. [place] [address] [place] [address] Care Team Providers Care Director Of Medical Services Name Role Phone Luiz Smalls DO Primary Care Provider + Reason for Visit * Reason Onset Date Comments Medication Request 12/20/2023 Encounter Details Date Type Department Care Team (Late st Contact Info) Description 12/20/2023 Telephone [facility] Medical Group Family & Internal Medicine [facility] [address] [place] [address] Luiz Smalls DO [address] [place] [address] Medication Request Social History Tobacco [...] on file Legal Sex Male 10:29 AM AUTOMOBILE SALESMAN Gender Identity Not on file Sexual Orientation [...] Medication: cetirizine (ZYRTEC) 10 MG tablet Pharmacy: [facility]/pharmacy #[id number] [place] [address] - [address] [place] [address] Last visit with LUIZ SMALLS in FAMILY PRACTICE was on: 07/22/2023 in [facility] Appointments Date Time Provider Department Center 01/24/2024 2:20 PM Luiz Smalls DO [facility] documented in this encounter Plan of Treatment Upcoming Encounters Date Type Department Care Team (Late st Contact Info) Description 08/22/2024 8:00 AM AUTOMOBILE SALESMAN Laboratory Only [facility] Medical Group Family & Internal Medicine - [place] [address] [place] [address] Luiz Smalls DO [address] [place] [address] 09/08/2024 2:30 PM AUTOMOBILE SALESMAN Appointment [facility] [address] [place] [address] Guido Rider DO 3 [facility] [address] [place] [address] 10/05/2024 3:00 PM AUTOMOBILE SALESMAN Appointment [facility] Respiratory Therapy [facility] [place] [address] Guido Rider DO [facility] [address] [place] [address] 10/13/2024 10:30 AM AUTOMOBILE SALESMAN Office Visit [facility] Multispecialty Care - [facility] 3 [facility] [address] [place] [address] Guido Rider DO 3 [facility] [address] [place] [address] 01/08/2025 2:20 PM CDT Office Visit [facility] Medical [facility] Family & Internal Medicine [address] [address] [place] [address] [place] [address] documented as of this encounter Visit Diagnoses Diagnosis Allergic rhinitis, unspecified seasonality, unspecified trigger- Primary documented in this encounter Care Teams Director Of Medical Services Relationship Specialty Start Date End Date Luiz Smalls DO [address] [place] [address] PCP - General 12/19/22 documented as of this encounter
--- OUTSIDE RECORDS SUMMARY | 2024-08-19 13:47 | XMS_ITS | Encounter Summary ---
Author Organization [facility] Address [address] [place] [address]. [place] [address] [place] [address] Care Team Providers Care Entry Level Buyer Name Role Phone Inderjit Narayan DO Primary [...] on file Legal Sex Male 10:29 AM COOKING CHEF Gender Identity Not on file Sexual Orientation Not on file Occupation Industry Job Start Date Job End Date Not on file Not on file Not on file Not on file documented as of this encounter Plan of Treatment Upcoming Encounters Date Type Department Care Team (Late st Contact Info) Description 08/22/2024 8:00 AM COOKING CHEF Laboratory Only [facility] Medical Group Family & Internal Medicine - [place] [address] [place] [address] Inderjit Narayan DO [address] [place] [address] 09/08/2024 2:30 PM [address] [facility] [address] [place] [address] Guido Rider, DO 3 [facility] [address] [place] [address] 10/05/2024 3:00 PM COOKING CHEF Appointment [facility] Respiratory Therapy [facility] [place] [address] Guido Rider, DO 3 [facility] [address] [place] [address] 10/13/2024 10:30 AM COOKING CHEF Office Visit [facility] Multispecialty Care - [facility] 3 [facility] [address] [place] [address] Guido Rider, DO 3 [facility] [address] [place] [address] 01/08/2025 2:20 PM CDT Office Visit [facility] Medical [facility] Family & Internal Medicine [address] [address] Inderjit Narayan DO [address] [place] [address] documented as of this encounter Visit Diagnoses Not on filedocumented in this encounter Care Teams Entry Level Buyer Relationship Specialty Start Date End Date Inderjit Narayan DO [address] [place] [address] PCP - General 12/19/22 documented as of this encounter
--- OUTSIDE RECORDS SUMMARY | 2024-08-19 13:47 | XMS_ITS | Encounter Summary ---
Author Organization [facility] Address [address] [place] [address]. [place] [address] [place] [address] Care Team Providers Care Booster Assembler Name Role Phone Inderjit Narayan DO Primary Care Provider + Reason for Visit * Reason Onset Date Comments Lab Order 06/08/2024 Encounter Details Date Type Department Care Team (Late st Contact Info) Description 06/08/2024 Telephone [facility] Family & Internal Medicine [facility] [address] [place] [address] Inderjit Narayan DO [address] [place] [address] Lab Order Social History Tobacco [...] on file Legal Sex Male 10:29 AM DIRECTOR OF PERIOPERATIVE SERVICES Gender Identity Not on file Sexual Orientation [...] a PSA done. Please call to discuss. [phone] documented in this encounter Plan of Treatment Upcoming Encounters Date Type Department Care Team (Late st Contact Info) Description 08/22/2024 8:00 AM DIRECTOR OF PERIOPERATIVE SERVICES Laboratory Only [facility] Family & Internal Medicine - [place] [address] [place] [address] Inderjit Narayan DO [address] [place] [address] 09/08/2024 2:30 PM DIRECTOR OF PERIOPERATIVE SERVICES [facility]ment [facility] [address] [place] [address] Guido Rider DO [address] [facility] [address] [place] [address] 10/05/2024 3:00 PM DIRECTOR OF PERIOPERATIVE SERVICES Appointment [facility] [place] [address] Guido Rider DO [address] [facility] [address] [place] [address] 10/13/2024 10:30 AM DIRECTOR OF PERIOPERATIVE SERVICES Office Visit [facility]ispecialty Care - [facility] [address] [facility] [address] [place] [address] Guido Rider DO [address] [facility] [address] [place] [address] 01/08/2025 2:20 PM CDT Office Visit [facility] Family & Internal Medicine [facility] [address] [place] [address] [place] [address] [place] [address] documented as of this encounter Visit Diagnoses Not on filedocumented in this encounter Care Teams Booster Assembler Relationship Specialty Start Date End Date Inderjit Narayan DO [address] [place] [address] PCP - General 12/19/22 documented as of this encounter
--- OUTSIDE RECORDS SUMMARY | 2024-08-19 13:47 | XMS_ITS | Encounter Summary ---
Author Organization [facility] Address [address] [place] [address]. [place] [address] [place] [address] Care Team Providers Care Transit Manager Name Role Phone Inderjit Narayan DO Primary Care Provider + Reason for Referral * Imaging (Emergency) - New Request Specialty Diagnoses / Procedures Referred By Contjeanie t Referred To Contact RADIOLOGY Procedures CT ABD+PEL WO CON Emy Floyd NP [address] [address] Phone: tel: fax: Referral ID Status Reason Start Date Expiration Date V isits Requested Visits Authorized [id number] New Request 04/18/2024 04/18/2025 1 1 Reason for Visit * Reason Comments Back Pain Encounter Details Date Type Department Care Team (Late st Contact Info) Description 04/18/2024 8:40 PM CDT - 04/18/2024 11:37 PM CDT Emergency [facility] Emergency Room [place], [place] [phone] Patricia Denney MD [address] [place] [address] Back Pain Discharge Disposition: Home or [...] on file Legal Sex Male 10:29 AM IRRIGATION FOREMAN Gender Identity Not on file Sexual Orientation [...] Care Everywhere. * Kidney Stones Discharge Instructions (Armenian) documented in this encounter Medications at Time [...] (FLONASE) 50 MCG/ACT nasal spray 07/10/20 24 Dplvljrufts-Vlzeykhln-Cqt ant (TRELEGY ELLIPTA) 100-62.5-25 MCG/ACT AEROSOL POWDER, [...] 50 MCG/ACT nasal spray Default History Genericprovider Tquexcbgllt-Gzvwkazdo-Khdpkn (TRELEGY ELLIPTA) 100-62.5-25 MCG/ACT AEROSOL POWDER, BREATH [...] Colon adenoma 01/22/2014 GERD (gastroesophageal reflux disease) [id number] Hypertension Kidney stone 12/22/2022 S/P right rotator [...] Heart Disease Mother Bell Leukemia Mother Bell [facility] Father Breast Cancer Sister 1/2 sister Cancer [...] ABD+PEL WO CON Final Result by User, [email or web address] (04/18 2059) [address] [address] Examination: CT abdomen and pelvis without IV [...] tablet, Refills: 0 Class: Eprescribe Pharmacy: [facility]/pharmacy #[address] [place] [address] (Ph #: [phone]) Comments: Per [place] law, C-II Rx's must include written & numerical notation of quantity. Quantity (in words) twenty-one Associated Diagnoses: Kidney stone on left side ketorolac (TORADOL) 10 MG tablet Take 1 tablet (10 mg total) by mouth 4 (four) times daily as needed for Pain. Qty: 20 tablet, Refills: 0 Class: Eprescribe Pharmacy: [facility]/pharmacy [address] [place] [address] (Ph #: [phone]) ondansetron (ZOFRAN-ODT) 4 MG disintegrating tablet Take 1 tablet (4 mg total) by mouth every 8 (eight) hours as needed. Qty: 20 tablet, Refills: 0 Class: [facility]cribe [facility] [place] [address] (Ph #: [phone]) Disposition: Discharge Follow-Up: Inderjit Narayan, [address] [facility] [phone] Schedule an appointment as soon as possible for a visit Calvin Jane MD [address] [place] [address] Schedule an appointment as soon as possible for a visit in 3 days PATRICIA DENNEY MD 04/18/2024 Patricia Denney MD 04/18/24 [phone] * Marianela Glasgow RN - 04/18/2024 9:38 PM CDT Bed: 20 Expected date: Expected time: Means of arrival: Comments: Jovan * Emy Floyd NP - 04/18/2024 8:27 PM CDT [place], [place] EMERGENCY DEPARTMENT ENCOUNTER Medical Screening Examination [...] APRN, dictated portions of this note using ProQuo speech recognition software. Occasional wrong word or [...] st Contact Info) Description 08/22/2024 8:00 AM IRRIGATION FOREMAN Laboratory Only [facility] Family & Internal Medicine [address] [address] Inderjit Narayan, [address] [place] [address] 09/08/2024 2:30 PM IRRIGATION FOREMAN Appointment [facility] [address] [place] [address] Guido Rider DO [facility] [address] [place] [address] 10/05/2024 3:00 PM IRRIGATION FOREMAN Appointment [facility] [place] [address] Guido Rider DO [address] [facility] [address] [place] [address] 10/13/2024 10:30 AM IRRIGATION FOREMAN Office Visit [facility] Multispecialty Care - [facility] [address] [facility] [address] [place] [address] Guido Rider DO 3 [facility] [address] [place] [address] 01/08/2025 2:20 PM CDT Office Visit [facility] Family & Internal [address] [address] Inderjit Narayan, DO [address] [place] [address] documented as of this encounter Procedures Procedure [...] URINE CLEAN CATCH 04/18/2024 9:03 PM CDT [facility] COLOR (U) LIGHT YELLOW 04/18/2024 9:23 PM CDT [facility] TRANSPARENCY CLEAR 04/18/2024 9:23 PM CDT [facility] SPECIFIC GRAVITY (U) 1.018 1.001 - 1.030 04/18/2024 9:23 PM CDT [facility] U PH 5.5 5.0 - 9.0 04/18/2024 9:23 PM CDT [facility] LEUKOCYTES (U) NEGATIVE NEGATIVE 04/18/2024 9:23 PM CDT [facility] NITRITES NEGATIVE NEGATIVE 04/18/2024 9:23 PM CDT [facility] PROTEIN RANDOM (U) NEGATIVE <30 MG/DL 04/18/2024 9:23 PM CDT [facility] GLUCOSE (U) NORMAL NORMAL MG/DL 04/18/2024 9:23 PM CDT [facility] KETONES MG/DL (U) NEGATIVE NEGATIVE MG/DL 04/18/2024 9:23 PM CDT [facility] UROBILINOGEN NORMAL NORMAL MG/DL 04/18/2024 9:23 PM CDT [facility] BILIRUBIN (U) NEGATIVE NEGATIVE MG/DL 04/18/2024 9:23 PM CDT [facility] BLOOD (U) NEGATIVE NEGATIVE 04/18/2024 9:23 PM CDT [facility] URINE SPECIMEN OBTAINED BY CLEAN CATCH PROCEDURE / Unknown 04/18/2024 9:09 PM CDT Emy Floyd COLORECTAL SURGEON URINE ORDERABLES Final Result [facility] [address] [place] [address], [place] [phone] * LIPASE (04/18/2024 9:09 PM CDT) LIPASE 46 13 - 75 UNITS/L 04/18/2024 9:57 PM CDT [facility] 04/18/2024 9:09 PM CDT Emy Floyd COLORECTAL SURGEON LABORATORY Final Result [facility] [address] [place] [address], [place] [phone] * LACTIC ACID W REFLEX (SEPSIS) (04/18/2024 9:09 PM CDT) LACTIC ACID VENOUS 1.3 0.4 - 2.0 MMOL/L 04/18/2024 9:46 PM CDT [facility] 04/18/2024 9:09 PM CDT Emy Floyd COLORECTAL SURGEON LABORATORY Final Result [facility] [address] [place] [address], [place] [phone] * (ABNORMAL) COMPREHENSIVE METABOLIC PANEL (04/18/2024 9:09 PM CDT) Pathologist [facility] GLUCOSE 112(H) 70 - 99 MG/DL 04/18/2024 9:57 PM CDT [facility] BUN 12 7 - 18 MG/DL 04/18/2024 9:57 PM CDT [facility] CREATININE S/P/B 1.34(H) 0.7 - 1.3 MG/DL 04/18/2024 9:57 PM CDT [facility] SODIUM S/P/B 140 136 - 145 MMOL/L 04/18/2024 9:57 PM CDT [facility] POTASSIUM S/P/B 4.3 3.5 - 5.1 MMOL/L 04/18/2024 9:57 PM CDT [facility] CHLORIDE S/P/B 108 97 - 115 MMOL/L 04/18/2024 9:57 PM CDT [facility] CO2 28.8 21 - 32 MMOL/L 04/18/2024 9:57 PM CDT [facility] CALCIUM S/P/B 9.5 8.5 - 10.1 MG/DL 04/18/2024 9:57 PM CDT [facility] BILIRUBIN TOTAL S/P/B 0.6 0.2 - 1.2 MG/DL 04/18/2024 9:57 PM CDT [facility] Comment: THIS ASSAY IS NOT RECOMMENDED FOR PATIENTS UNDERGOING TREATMENT WITH ELTROMBOPAG DUE TO THE POTENTIAL FOR FALSELY ELEVATED RESULTS. TOTAL PROTEIN S/P/B 7.5 6.4 - 8.2 G/DL 04/18/2024 9:57 PM CDT [facility] ALBUMIN S/P/B 3.5 3.4 - 5.0 G/DL 04/18/2024 9:57 PM CDT [facility] AST 28 15 - 37 U/L 04/18/2024 9:57 PM T [facility] ALT 43 16 - 60 U/L 04/18/2024 9:57 PM CDT [facility] ALKALINE PHOSPHATASE S/P/B 76 50 - 136 U/L 04/18/2024 9:57 PM T [facility] ANION GAP 3.2 2 - 10 MMOL/L 04/18/2024 9:57 PM T [facility] BUN CREATININE RATIO 9.0 6 - 26 04/18/2024 9:57 PM T [facility] A/G RATIO 0.9(L) 1.0 - 2.0 RATIO 04/18/2024 9:57 PM T [facility] GFR ESTIMATE 56(L) >90 ML/MIN/1.7 3 M2 04/18/2024 9:57 PM T [facility] Comment: NOTE: eGFR is not calculated for patients <18 years of age or gender unknown. This is an estimated GFR calculation using the new CKD EPI creatinine equation without race and so does not require a correction factor for race. This estimated GFR should not be used for calculating drug doses. 04/18/2024 9:09 PM CDT Emy Floyd NP LABORATORY Final Result [facility] [address] [place] [address], * (ABNORMAL) CBC W/DIFF AUTOMATED (04/18/2024 9:09 PM CDT) [facility] WBC 9.75 4.5 - 11.0 x10'3/uL 04/18/2024 9:31 PM CDT [facility] RBC 4.98 4.70 - 6.10 x10'6/uL 04/18/2024 9:31 PM CDT [facility] HGB 15.3 14.0 - 18.0 G/DL 04/18/2024 9:31 PM CDT [facility] HCT 46.1 43.0 - 54.0 % 04/18/2024 9:31 PM CDT [facility] MCV 92.6 80.0 - 94.0 FL 04/18/2024 9:31 PM CDT [facility] MCH 30.7 27.0 - 31.0 PG 04/18/2024 9:31 PM CDT [facility] MCHC 33.2 32.0 - 36.0 G/DL 04/18/2024 9:31 PM CDT [facility] RDW 12.6 11.5 - 14.5 % 04/18/2024 9:31 PM CDT [facility] PLT 257 130 - 400 x10'3/uL 04/18/2024 9:31 PM CDT [facility] MPV 10.1 9.3 - 12.2 FL 04/18/2024 9:31 PM CDT [facility] DIFFERENTIAL TYPE AUTOMATED DIFFERENTIAL 04/18/2024 9:31 PM CDT [facility] NEUTROPHILS % 54.5 % 04/18/2024 9:31 PM CDT [facility] LYMPHOCYTES % 26.9 % 04/18/2024 9:31 PM CDT [facility] MONOCYTES % 12.1 % 04/18/2024 9:31 PM CDT [facility] EOSINOPHILS 5.2 % 04/18/2024 9:31 PM CDT [facility] BASOPHILS 1.1 % 04/18/2024 9:31 PM CDT [facility] IMMATURE GRANS % 0.2 % 04/18/20 9:31 PM CDT [facility] ABS. NEUTROPHILS 5.31 1.80 - 7.70 x10'3/uL 04/18/2024 9:31 PM CDT [facility] ABS. LYMPHOCYTES 2.62 1.00 - 4.80 x10'3/uL 04/18/2024 9:31 PM CDT [facility] ABS. MONOCYTES 1.18(H) 0.30 - 0.82 x10'3/uL 04/18/2024 9:31 PM CDT [facility] ABS. EOSINOPHILS 0.51 0.04 - 0.54 x10'3/uL 04/18/2024 9:31 PM CDT [facility] ABS. BASOPHILS 0.11(H) 0.01 - 0.08 x10'3/uL 04/18/2024 9:31 PM CDT [facility] ABS. IMMATURE GRANULOCYTES 0.02 0.00 - 0.49 x10'3/uL 04/18/2024 9:31 PM CDT [facility] 04/18/2024 9:09 PM CDT us Emy Floyd NP LABORATORY Final Result [facility] [address] [place] [address], * CT ABD+PEL WO CON (04/18/2024 8:47 [...] 8:55 PM Narrative 04/18/2024 8:58 PM CDT [facility] [address] [place], [place] [address] Examination: CT abdomen and pelvis without IV [...] Procedure Note Landry Joe MD - 04/18/2024 [facility] [address] [place], [place] [address] Examination: CT abdomen and pelvis without IV [...] Joe MD, 04/18/2024 8:55 PM Emy Greeneud COLORECTAL SURGEON CT Final Result documented in this encounter [...] RN) documented in this encounter Care Teams Transit Manager Relationship Specialty Start Date End Date Inderjit Narayan DO [address] [place] [address] PCP - General 12/19/22 documented as of this encounter
--- OUTSIDE RECORDS SUMMARY | 2024-08-19 13:47 | XMS_ITS | Encounter Summary ---
Author Organization [facility] Address [address] [place] [address]. [place], [place] [address] [place] [address] Care Team Providers Care Mechanical Door Repairer Name Role Phone Luiz Smalls DO Primary Care Provider + Reason for Referral * Procedure (Routine) - New Request Specialty Diagnoses / Procedures Referred By Contjeanie t Referred To Contact Diagnoses Subacute cough Procedures Complete PFT (pre/post Parsons, Lung Vol, Diff Capacity) (77091, [id number], [id number], [address]18) Luiz Smalls DO [address] [place] [address] Phone: tel: fax: Referral ID Status Reason Start Date Expiration Date V isits Requested Visits Authorized [id number] New Request 02/29/2024 03/31/2025 1 1 * Imaging (Routine) - Closed Specialty Diagnoses / Procedures Referred By Contac t Referred To Contact RADIOLOGY Diagnoses Subacute cough Procedures CT CHEST WO CON Luiz Smalls DO [address] [place] [address] Phone: tel: fax: Referral ID Status Reason Start Date Expiration Date Visits Re quested Visits Authorized [id number] Closed 02/29/2024 03/01/2025 1 1 Reason for Visit * Reason Onset Date Comments Advice 02/29/2024 Encounter Details Date Type Department Care Team (Late st Contact Info) Description 02/29/2024 Telephone [facility] Family & Internal Medicine [facility] [address] [place] [phone] Luiz Smalls DO [address] [place] [address] Advice Social History Tobacco Use Types Packs/Day [...] on file Legal Sex Male 10:29 AM AUTOMATIC TRIMMING SEWER Gender Identity Not on file Sexual Orientation [...] being ordered. The patient states he prefers [facility] as he know where that hospital is [...] like to do CT and PFT. Recommend [facility]. * Prachi Thomson MA - 02/29/2024 2:47 [...] care and more than one of our BINDING DYER's for this on 11/17/23, 12/17/23, and 02/03/24. [...] coughing. Patient was prescribed albuterol at the [facility]. Please advise. * Jessica Farr - 02/29/2024 11:28 AM CDT Pt called in still having sinus infection sx. Cough has improved. Pain R side sinuses. Pt asking for advice documented in this encounter Plan of Treatment Upcoming Encounters Date Type Department Care Team (Late st Contact Info) Description 08/22/2024 8:00 AM AUTOMATIC TRIMMING SEWER Laboratory Only [facility] Medical Group Family & Internal Medicine - [address] [address] [place] [address] [place] [address] 09/08/2024 2:30 PM AUTOMATIC TRIMMING SEWER Appointment [facility] [address] [place] [address] Guido Rider DO [address] [facility] [address] [place] [address] 10/05/2024 3:00 PM AUTOMATIC TRIMMING SEWER Appointment [facility] [place] [address] Guido Rider, [address] [facility] [address] [place] [address] 10/13/2024 10:30 AM AUTOMATIC TRIMMING SEWER Office Visit [facility] Multispecialty Care - [address] [place] [address] Guido Rider DO [address] [facility] [address] [place] [address] 01/08/2025 2:20 PM CDT Office Visit [facility] Family & Internal Medicine [address] [address] Luiz Smalls DO [address] [place] [address] documented as of this encounter Results * Complete PFT (pre/post Parsons, Lung Vol, Diff Capacity) (14980, 932[address], [address], [address]) (03/17/2024 3:00 PM CDT) Narrative [facility] - 03/17/2024 3:00 PM CDT Guido Rider DO ? 03/23/2024 ??1:42 PM ?? [facility] PULMONARY FUNCTION TEST REPORT Brendon Aldana INTERPRETATION [...] Uncorrected DLCO was normal. Dr. Maycol Rider [facility] Medical Group Pulmonary Medicine us Luiz Smalls DO PFT ORDERABLES Final Re sult [facility] [address] [place] [address], * CT CHEST WO CON (03/08/2024 3:38 [...] Cough documented in this encounter Care Teams Mechanical Door Repairer Relationship Specialty Start Date End Date Luiz Smalls DO [address] [place] [address] PCP - General 12/19/22 documented as of this encounter
--- OUTSIDE RECORDS SUMMARY | 2024-08-19 13:47 | XMS_ITS | Encounter Summary ---
Author Organization [facility] Address [address] [place] [address]. [place] [address] [place] [address] Care Team Providers Care Manager Fine Dining Name Role Phone Inderjit Narayan DO Primary [...] on file Legal Sex Male 10:29 AM RISK ANALYST Gender Identity Not on file Sexual Orientation Not on file Occupation Industry Job Start Date Job End Date Not on file Not on file Not on file Not on file documented as of this encounter Plan of Treatment Upcoming Encounters Date Type Department Care Team (Late st Contact Info) Description 08/22/2024 8:00 AM RISK ANALYST Laboratory Only [facility] Family & Internal Medicine - [place] [address] [place] [address] Inderjit Narayan DO [address] [place], [place] [phone] 09/08/2024 2:30 PM RISK ANALYST [facility]ointment [facility] [address] [place] [address] Guido Rider, DO [address] [facility] [address] [place] [address] 10/05/2024 3:00 PM RISK ANALYST Appointment [facility] [place] [address] Guido Rider DO [facility] [address] [place] [address] 10/13/2024 10:30 AM RISK ANALYST Office Visit [facility] Multispecialty Care - [facility] [address] [facility] [address] [place] [address] Guido Rider DO [facility] [address] [place] [address] 01/08/2025 2:20 PM CDT Office Visit [facility] Family & Internal Medicine [address] [address] [place] [address] [place] [address] documented as of this encounter Procedures Procedure Name Priority Date/Time Associated Diagnosis Comments IMAGE GENERIC 04/24/2024 documented in this encounter Results * IMAGE GENERIC (04/24/2024) Anatomical Region Laterality Modality Other 04/24/2024 us Doc [facility] Scanned SCANNING Final Resu lt documented in this encounter Visit Diagnoses Not on filedocumented in this encounter Care Teams Manager Fine Dining Relationship Specialty Start Date End Date Inderjit Narayan DO [address] [place] [address] PCP - General 12/19/22 documented as of this encounter
--- OUTSIDE RECORDS SUMMARY | 2024-08-19 13:47 | XMS_ITS | Encounter Summary ---
Author Organization [facility] Address [address] [place] [address]. [place], [place] [address] [place] [address] Care Team Providers Care Closing Coordinator Name Role Phone Inderjit Narayan DO Primary Care Provider + Reason for Referral * Procedure (Routine) - New Request Specialty Diagnoses / Procedures Referred By Contac t Referred To Contact Diagnoses Subacute cough Procedures Complete PFT (pre/post [place], Lung Vol, Diff Capacity) (17135, 86441, 34505, 43151) Inderjit Narayan DO [address] [id number] Phone: tel: fax: Referral ID Status Reason Start Date Expiration Date V isits Requested Visits Authorized [id number] New Request 02/29/2024 03/31/2025 1 1 Reason for Visit * Procedure (Routine) - New Request Specialty Diagnoses / Procedures Referred By Contac t Referred To Contact Diagnoses Subacute cough Procedures Complete PFT (pre/post [place], Lung Vol, Diff Capacity) (20782, 05694, 54911, 88250) Inderjit Narayan DO [address] [place] [address] Phone: tel: fax: Referral ID Status Reason Start Date Expiration Date V isits Requested Visits Authorized [id number] New Request 02/29/2024 03/31/2025 1 1 Encounter Details Date Type Department Care Team (Latest Contact Info) Description 03/17/2024 2:36 PM CDT - 03/17/2024 11:59 PM CDT Hospital Encounter [facility] [place] [address] Inderjit Narayan DO [address] [place] [address] Discharge Disposition: Home or Self Care (Routine [...] on file Legal Sex Male 10:29 AM ARTILLERY OR NAVAL GUNFIRE OBSERVER Gender Identity Not on file Sexual Orientation [...] 3:00 PM CDTAssociated Order(s): PULMONARY FUNCTION TEST [facility] PULMONARY FUNCTION TEST REPORT Brendon [...] Uncorrected DLCO was normal. Dr. Maycol Rider [facility] Pulmonary Medicine documented in this encounter Plan of Treatment Upcoming Encounters Date Type Department Care Team (Late st Contact Info) Description 08/22/2024 8:00 AM ARTILLERY OR NAVAL GUNFIRE OBSERVER Laboratory Only [facility] Family & Internal Medicine - [address] [address] Inderjit Narayan DO [address] [place] [address] 09/08/2024 2:30 PM ARTILLERY OR NAVAL GUNFIRE OBSERVER Appointment [facility] CT [address] [place] [address] Guido Rider DO 3 [facility] [address] [place] [address] 10/05/2024 3:00 PM ARTILLERY OR NAVAL GUNFIRE OBSERVER Appointment [facility] [place] [address] Guido Rider DO 3 [facility] [address] [place] [address] 10/13/2024 10:30 AM ARTILLERY OR NAVAL GUNFIRE OBSERVER Office Visit [facility] Multispecialty Care - [facility] 3 [facility] [address] [place] [address] Guido Rider DO 3 [facility] Blv [address] [place] [address] 01/08/2025 2:20 PM CDT Office Visit [facility] Medical Group Family & Internal Medicine - [address] [place] [address] Inderjit Naaryan DO [address] [place] [address] documented as of this encounter Procedures Procedure Name Priority Date/Time Associated Diagnosis Comments PULMONARY FUNCTION TEST Routine 03/17/2024 3:00 PM CDT Subacute cough documented in this encounter Results * Complete PFT (pre/post [place], Lung Vol, Diff Capacity) (38575, 91242, 73865, 61117) (03/17/2024 3:00 PM CDT) Narrative [facility] - 03/17/2024 3:00 PM CDT Guido Rider, DO ? 03/23/2024 ??1:42 PM ?? [facility] PULMONARY FUNCTION TEST REPORT Brendon [...] Uncorrected DLCO was normal. Dr. Maycol Rider [facility] Pulmonary Medicine us Inderjit Narayan DO PFT ORDERABLES Final Re sult [facility] [address] [place] [address], documented in this encounter Visit Diagnoses Diagnosis [...] puffs documented in this encounter Care Teams Closing Coordinator Relationship Specialty Start Date End Date Inderjit Narayan DO [address] [place] [address] PCP - General 12/19/22 documented as of this encounter
--- OUTSIDE RECORDS SUMMARY | 2024-08-19 13:47 | XMS_ITS | Encounter Summary ---
Author Organization [facility] Address [address] [place] [address]. [place] [address] [place] [address] Care Team Providers Care Seedling Sorter Name Role Phone Luiz Smalls DO Primary Care Provider + Reason for Visit * Reason Comments Hypertension Patient presents for a 6 month follow up HTN Cough C/o cough x 12/17/23 Encounter Details Date Type Department Care Team (Late st Contact Info) Description 02/14/2024 2:20 PM CDT Office Visit [facility] Medical Group Family & Internal Medicine [facility] [address] [place] [address] Luiz Smalls DO [address] [place], [place] [phone] Hypertension (Patient presents for a 6 month [...] on file Legal Sex Male 10:29 AM TOP WADDY Gender Identity Not on file Sexual Orientation [...] care and more than one of our EVENING OR NIGHT NURSE SUPERVISOR's for this on 11/17/23, 12/17/23, and 02/03/24. 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 Tobacco Use Smoking status: [...] Resource Strain: Low Risk (10/10/2021) Received from [place] [place] [facility], [place] [place] [facility] Financial Resource Strain How hard is it for you to pay for the very basics like food, housing, medical care, and heating?: Not hard at all Food Insecurity: No Food Insecurity (10/10/2021) Re[facility] [place] [place] [facility], [place] [place] [facility] Food Insecurity In the past 12 months, have you worried that your food would run out before you had money to buy more?: Never true In the past 12 months, did you run out of food and didn't have money to buy more?: Never true Transportation Needs: Unknown (10/10/2021) Received from [place] [place] [facility], [place] [place] [facility] Transportation Needs In the past 12 months, has lack of transportation kept you from medical appointments or from getting medications?: No Lack of Transportation (Non-Medical): Not on file Physical Activity: Not on file Stress: Not on file Social Connections: Not on file Intimate Partner Violence: Not At Risk (04/09/2023) Re[facility] [place] [place] [facility] Intimate Partner Violence Are you in a [...] st Contact Info) Description 08/22/2024 8:00 AM TOP WADDY Laboratory Only [facility] Family & Internal Medicine - [address] [address] Luiz Smalls DO [address] [place] [address] 09/08/2024 2:30 PM TOP WADDY Appointment [facility] CT [address] [place] [address] Guido Rider DO 3 [facility] [address] [place] [address] 10/05/2024 3:00 PM TOP WADDY Appointment [facility] [place] [address] Guido Rider DO 3 [facility] [address] [place] [address] 10/13/2024 10:30 AM TOP WADDY Office Visit [facility] Multispecialty Care - [facility] 3 [facility] [address] [place] [address] Guido Rider DO 3 [facility] [address] [place] [address] 01/08/2025 2:20 PM CDT Office Visit [facility] Medical Group Family & Internal Medicine - [address] [phone] Luiz Smalls DO [address] [place] [address] documented as of this encounter Results * [...] hypercholesterolemia documented in this encounter Care Teams Seedling Sorter Relationship Specialty Start Date End Date Luiz Smalls DO [address] [place] [address] PCP - General 12/19/22 documented as of this encounter
--- OUTSIDE RECORDS SUMMARY | 2024-08-19 13:47 | XMS_ITS | Encounter Summary ---
Author Organization [facility] Address [address] [place] [address]. [place] [address] [place] [address] Care Team Providers Care Supervisor Tree Fruit And Nut Farming Name Role Phone Luiz Smalls DO Primary Care Provider + Reason for Visit * Reason Onset Date Comments Results 03/15/2024 CT Radiology Results 03/15/2024 Encounter Details Date Type Department Care Team (Late st Contact Info) Description 03/15/[address] [facility] Family & Internal Medicine [facility] [address] [place] [address] Luiz Smalls DO [address] [place] [address] Results (CT); Radiology Results Social [...] on file Legal Sex Male 10:29 AM VISUAL ARTS TEACHER Gender Identity Not on file Sexual Orientation Not on file Occupation Industry Job Start Date Job End Date Not on file Not on file Not on file Not on file documented as of this encounter Progress Notes * Luiz Smalls DO - 03/30/2024 3:25 PM CDTAddended by: LUIZ SMALLS on: 03/30/2024 03:25 PM Modules accepted: Orders * Luiz Smalls DO - 03/30/2024 3:25 PM CDT Will discontinue cultures; see OV from 03/30/24. * Edna Krishna MA - 03/30/2024 2:55 PM CDT Contacted [facility] respiratory department, they do no provide outpatient services to help patient's provide a sample. 03/30/2024 3:01 PM Spoke to silk crepe machine operator staff and requested to be transferred [...] am unable to find Respiratory therapy in [facility], would this be under another order? [...] st Contact Info) Description 08/22/2024 8:00 AM VISUAL ARTS TEACHER Laboratory Only [facility] Medical Group Family & Internal Medicine [facility] [address] [place] [address] Luiz Smalls DO [address] [place] [address] 09/08/2024 2:30 PM VISUAL ARTS TEACHER Appointment [facility] CT [address] [place], [place] [phone] Guido Rider DO 3 [facility] [address] [place] [phone] 10/05/2024 3:00 PM VISUAL ARTS TEACHER Appointment [facility] [place] [address] Guido Rider DO 3 [facility] [address] [place] [address] 10/13/2024 10:30 AM VISUAL ARTS TEACHER Office Visit [facility] Medical [facility] Multispecialty Care - [facility] [address] [facility] [address] [place] [address] Guido Rider, 3 [facility] [address] [place] [address] 01/08/2025 2:20 PM CDT Office Visit [facility] Medical Group Family & Internal Medicine [facility] [address] [place] [address] Luiz Smalls DO [address] [place] [address] documented as of this encounter Visit Diagnoses Diagnosis Subacute cough- Primary Cough Abnormal CT scan of lung Other nonspecific abnormal finding of lung field documented in this encounter Care Teams Supervisor [employer] Relationship Specialty Start Date End Date Luiz Smalls DO [address] [place] [address] PCP - General 12/19/22 documented as of this encounter
--- OUTSIDE RECORDS SUMMARY | 2024-08-19 13:47 | XMS_ITS | Encounter Summary ---
Author Organization [facility] Address [address] [place] [address]. [place] [address] [place] [address] Care Team Providers Care Bulkhead Carpenter Name Role Phone Inderjit Narayan DO Primary [...] on file Legal Sex Male 10:29 AM HIGH RISK CASE MANAGER Gender Identity Not on file Sexual Orientation Not on file Occupation Industry Job Start Date Job End Date Not on file Not on file Not on file Not on file documented as of this encounter Plan of Treatment Upcoming Encounters Date Type Department Care Team (Late st Contact Info) Description 08/22/2024 8:00 AM HIGH RISK CASE MANAGER Laboratory Only [facility] Medical Group Family & Internal Medicine - [address] [place] [address] Inderjit Narayan DO [address] [place] [address] 09/08/2024 2:30 PM HIGH RISK CASE MANAGER Appointment [facility] CT [address] [place] [address] Guido Rider, DO 3 [facility] [address] [place] [address] 10/05/2024 3:00 PM HIGH RISK CASE MANAGER Appointment [facility] Respiratory Therapy [facility] [place] [address] Guido Rider, DO 3 [facility] [address] [place] [address] 10/13/2024 10:30 AM HIGH RISK CASE MANAGER Office Visit [facility] Multispecialty Care - [facility] 3 [facility] [address] [place] [address] Guido Rider, DO 3 [facility] [address] [place] [address] 01/08/2025 2:20 PM CDT Office Visit [facility] Medical [facility] Family & Internal Medicine [address] [address] Inderjit Narayan DO [address] [place] [address] documented as of this encounter Visit Diagnoses Not on filedocumented in this encounter Care Teams Bulkhead Carpenter Relationship Specialty Start Date End Date Inderjit Narayan DO [address] [place] [address] PCP - General 12/19/22 documented as of this encounter
--- OUTSIDE RECORDS SUMMARY | 2024-08-19 13:47 | XMS_ITS | Encounter Summary ---
Author Organization [facility] Address [address] [place] [address]. [place] [address] [place] [address] Care Team Providers Care Cellulose Insulation Helper Name Role Phone Inderjit Narayan DO [...] on file Legal Sex Male 10:29 AM BAG MACHINE HELPER Gender Identity Not on file Sexual Orientation Not on file Occupation Industry Job Start Date Job End Date Not on file Not on file Not on file Not on file documented as of this encounter Plan of Treatment Upcoming Encounters Date Type Department Care Team (Late st Contact Info) Description 08/22/2024 8:00 AM BAG MACHINE HELPER Laboratory Only [facility] Medical Group Family & Internal Medicine - [address] [place] [address] Inderjit Narayan DO [address] [place] [address] 09/08/2024 2:30 PM BAG MACHINE HELPER Appointment [facility] CT [address] [place] [address] Guido Rider, DO 3 [facility] [address] [place] [address] 10/05/2024 3:00 PM BAG MACHINE HELPER Appointment [facility] Respiratory Therapy [facility] [place] [address] Guido Rider, DO 3 [facility] [address] [place] [address] 10/13/2024 10:30 AM BAG MACHINE HELPER Office Visit [facility] Multispecialty Care - [facility] 3 [facility] [address] [place] [address] Guido Rider, DO 3 [facility] [address] [place] [address] 01/08/2025 2:20 PM CDT Office Visit [facility] Medical [facility] Family & Internal Medicine [address] [address] Inderjit Naryaan DO [address] [place] [address] documented as of this encounter Visit Diagnoses Not on filedocumented in this encounter Care Teams Cellulose Insulation Helper Relationship Specialty Start Date End Date Inderjit Narayan DO [address] [place] [address] PCP - General 12/19/22 documented as of this encounter
--- OUTSIDE RECORDS SUMMARY | 2024-08-19 13:47 | XMS_ITS | Encounter Summary ---
Author Organization [facility] Address [address] [place] [address]. [place] [address] [place] [address] Care Team Providers Care Life Skills Trainer Name Role Phone Inderjit Narayan DO Primary [...] on file Legal Sex Male 10:29 AM VETERINARY MEAT INSPECTOR Gender Identity Not on file Sexual Orientation Not on file Occupation Industry Job Start Date Job End Date Not on file Not on file Not on file Not on file documented as of this encounter Plan of Treatment Upcoming Encounters Date Type Department Care Team (Late st Contact Info) Description 08/22/2024 8:00 AM VETERINARY MEAT INSPECTOR Laboratory Only [facility] Medical Group Family & Internal Medicine - [address] [place] [address] Inderjit Narayan DO [address] [place] [address] 09/08/2024 2:30 PM VETERINARY MEAT INSPECTOR Appointment [facility] CT [address] [place] [address] Guido Rider, DO 3 [facility] [address] [place] [address] 10/05/2024 3:00 PM VETERINARY MEAT INSPECTOR Appointment [facility] Respiratory Therapy [facility] [place] [address] Guido Rider, DO 3 [facility] [address] [place] [address] 10/13/2024 10:30 AM VETERINARY MEAT INSPECTOR Office Visit [facility] Multispecialty Care - [facility] 3 [facility] [address] [place] [address] Guido Rider, DO 3 [facility] [address] [place] [address] 01/08/2025 2:20 PM CDT Office Visit [facility] Medical [facility] Family & Internal Medicine [address] [address] Inderjit Narayan DO [address] [place] [address] documented as of this encounter Visit Diagnoses Not on filedocumented in this encounter Care Teams Life Skills Trainer Relationship Specialty Start Date End Date Inderjit Narayan DO [address] [place] [address] PCP - General 12/19/22 documented as of this encounter
--- OUTSIDE RECORDS SUMMARY | 2024-08-19 13:47 | XMS_ITS | Encounter Summary ---
Author Organization [facility] Address [address] [place] [address]. [place] [address] [place] [address] Care Team Providers Care Cane Flume Feeding Machine Operator Name Role Phone Inderjit Narayan DO Primary Care Provider + Reason for Referral * Procedure (Routine) - New Request Specialty Diagnoses / Procedures Referred By Contac t Referred To Contact Diagnoses Chronic cough Procedures Methacholine Challenge (71078) Guido Rider DO 3 [facility] [address] [place] [address] Phone: tel: fax: Referral ID Status Reason Start Date Expiration Date V isits Requested Visits Authorized [id number] New Request 06/09/2024 07/10/2025 1 1 * Imaging (Routine) - New Request Specialty Diagnoses / Procedures Referred By Contjeanie gallagher Referred To Contact RADIOLOGY Diagnoses Abnormal CT scan of lung Multiple nodules of lung Procedures CT CHEST WO CON Guido Rider DO 3 [facility] [address] [place] [address] Phone: tel: fax: Referral ID Status Reason Start Date Expiration Date V isits Requested Visits Authorized [id number] New Request 06/09/2024 06/09/2025 1 1 Reason [...] OFFICE/OUTPT VISIT,EST,LEVL V Inderjit Narayan DO [address] [place] [address] Phone: tel:[phone] fax:[phone] [facility] - [address] [place] [address] Phone: tel: fax: Referral ID Status Reason Start Date Expiration Date Visits Requested Visits Authorized [id number] Authorized Specialty Services 4 04/15/2025 99 99 Encounter Details Date Type Department Care Team (Late st Contact Info) Description 06/09/2024 2:20 PM CDT Office Visit [facility] - [address] [place] [address] Guido Rider DO 3 [facility] [address] [place], [place] [id number] New Patient Social History Tobacco Use Types [...] on file Legal Sex Male 10:29 AM GRAPHICS ARTIST Gender Identity Not on file Sexual Orientation [...] questions or concerns please send us a Ti Knight message for the most timely response. However, you can always call us at ([phone]) during office hours It was my pleasure [...] use a QR scanner alvaro through the [employer]). If you don't have a smart phone and want to leave a review for me you can always search Dr. Maycol Rider DO Google review to let us know how we are doing. Sincerely, Dr. 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 Ksruypqpbgm-Khovzgbhr-Hhkffu (TRELEGY ELLIPTA) 100-62.5-25 MCG/ACT AEROSOL POWDER, BREATH [...] and communicating test results. Dr. Maycol Rider [facility] Pulmonary Medicine documented in this encounter Plan of Treatment Upcoming Encounters Date Type Department Care Team (Late st Contact Info) Description 08/22/2024 8:00 AM GRAPHICS ARTIST Laboratory Only [facility] Family & Internal Medicine - [address] [address] Inderjit Narayan DO [address] [place] [address] 09/08/2024 2:30 PM GRAPHICS ARTIST Appointment [facility] CT [address] [place] [address] Guido Rider DO 3 [facility] [address] [place] [address] 10/05/2024 3:00 PM GRAPHICS ARTIST Appointment [facility] [place] [address] Guido Rider DO 3 [facility] [address] [place] [address] 10/13/2024 10:30 AM GRAPHICS ARTIST Office Visit [facility] Multispecialty Care - [facility] 3 [facility] [address] [place] [address] Guido Rider DO 3 [facility] [address] [place] [address] 01/08/2025 2:20 PM CDT Office Visit [facility] Family & Internal Medicine [address] [address] Inderjit Narayan DO [address] [place] [address] Scheduled Orders Name Type Priority Associated Diagnoses Orde r Schedule CT CHEST WO CON CT Routine Abnormal CT scan of lung Multiple nodules of lung Expected: 09/09/2024 (Approximate), Expires: 12/07/2025 Methacholine Challenge (47584) PFT Routine Chronic cough Expected: 06/09/2024, Expires: [...] Cough documented in this encounter Care Teams Cane Flume Feeding Machine Operator Relationship Specialty Start Date End Date Inderjit Narayan DO [address] [place] [address] PCP - General 12/19/22 documented as of this encounter
--- OUTSIDE RECORDS SUMMARY | 2024-08-19 13:47 | XMS_ITS | Encounter Summary ---
Author Organization [facility] Address [address] [place] [address]. [place] [address] [place] [address] Care Team Providers Care Welding Machine Assembler Name Role Phone Inderjit Narayan DO [...] on file Legal Sex Male 10:29 AM SINGER AND UNLOADER Gender Identity Not on file Sexual Orientation Not on file Occupation Industry Job Start Date Job End Date Not on file Not on file Not on file Not on file documented as of this encounter Plan of Treatment Upcoming Encounters Date Type Department Care Team (Late st Contact Info) Description 08/22/2024 8:00 AM SINGER AND UNLOADER Laboratory Only [facility] Medical Group Family & Internal Medicine - [place] [address] [place] [address] Inderjit Narayan DO [address] [place] [address] 09/08/2024 2:30 PM SINGER AND UNLOADER Appointment [facility] [address] [place] [address] Guido Rider, DO 3 [facility] [address] [place] [address] 10/05/2024 3:00 PM SINGER AND UNLOADER Appointment [facility] Respiratory Therapy [facility] [address] Guido Rider, DO 3 [facility] [address] [place] [address] 10/13/2024 10:30 AM SINGER AND UNLOADER Office Visit [facility] Multispecialty Care - [facility] 3 [facility] [address] [place] [address] Guido Rider, DO 3 [facility] [address] [place] [address] 01/08/2025 2:20 PM CDT Office Visit [facility] Medical [facility] Family & Internal Medicine [address] [address] Inderjit Narayan DO [address] [place] [address] documented as of this encounter Visit Diagnoses Not on filedocumented in this encounter Care Teams Welding Machine Assembler Relationship Specialty Start Date End Date Inderjit Narayan DO [address] [place] [address] PCP - General 12/19/22 documented as of this encounter
--- OUTSIDE RECORDS SUMMARY | 2024-08-19 13:47 | XMS_ITS | Encounter Summary ---
Author Organization [facility] Address [address] [place] [address]. [place] [address] [place] [address] Care Team Providers Care Head Mechanic Name Role Phone Inderjit Narayan DO Primary [...] on file Legal Sex Male 10:29 AM SINKER WINDER Gender Identity Not on file Sexual Orientation Not on file Occupation Industry Job Start Date Job End Date Not on file Not on file Not on file Not on file documented as of this encounter Plan of Treatment Upcoming Encounters Date Type Department Care Team (Late st Contact Info) Description 08/22/2024 8:00 AM SINKER WINDER Laboratory Only [facility] Medical Group Family & Internal Medicine - [address] [address] Inderjit Narayan DO [facility] [place] [address] 09/08/2024 2:30 PM SINKER WINDER Appointment [facility] [address] [place] [address] Guido Rider, DO 3 [facility] [address] [place] [address] 10/05/2024 3:00 PM SINKER WINDER Appointment [facility] [place] [address] Guido Rider DO 3 [facility] [address] [place] [address] 10/13/2024 10:30 AM SINKER WINDER Office Visit [facility] Multispecialty Care - [facility] 3 [facility] [address] [place] [address] Guido Rider, DO 3 [facility] [address] [place] [address] 01/08/2025 2:20 PM CDT Office Visit [facility] Medical [facility] Family & Internal Medicine [address] [address] Inderjit Narayan DO [address] [place] [address] documented as of this encounter Visit Diagnoses Not on filedocumented in this encounter Care Teams Head Mechanic Relationship Specialty Start Date End Date Inderjit Narayan DO [address] [place] [address] PCP - General 12/19/22 documented as of this encounter
--- OUTSIDE RECORDS SUMMARY | 2024-08-19 13:47 | XMS_ITS | Encounter Summary ---
Author Organization [facility] Address [address] [place] [address]. [place] [address] [place] [address] Care Team Providers Care Brush Holder Assembler Name Role Phone Inderjit Narayan DO [...] on file Legal Sex Male 10:29 AM RN TRANSITIONAL Gender Identity Not on file Sexual Orientation Not on file Occupation Industry Job Start Date Job End Date Not on file Not on file Not on file Not on file documented as of this encounter Plan of Treatment Upcoming Encounters Date Type Department Care Team (Late st Contact Info) Description 08/22/2024 8:00 AM RN TRANSITIONAL Laboratory Only [facility] Medical Group Family & Internal Medicine - [place] [address] [place] [address] Inderjit Narayan DO [address] [place] [address] 09/08/2024 2:30 PM RN TRANSITIONAL [facility]ointment [facility] [address] [place] [address] Guido Rider, DO 3 [facility] [address] [place] [address] 10/05/2024 3:00 PM RN TRANSITIONAL Appointment [facility] Respiratory Therapy [facility] [address] Guido Rider, DO 3 [facility] [address] [place] [address] 10/13/2024 10:30 AM RN TRANSITIONAL Office Visit [facility] Mult[facility]pecialty Care - [facility] 3 [facility] [address] [place] [address] Guido Rider, DO 3 [facility] [address] [place] [address] 01/08/2025 2:20 PM CDT Office Visit [facility] Family & Internal Medicine [address] [address] Inderjit Narayan DO [address] [place] [address] documented as of this encounter Visit Diagnoses Not on filedocumented in this encounter Care Teams Brush Holder Assembler Relationship Specialty Start Date End Date Inderjit Narayan DO [address] [place] [address] PCP - General 12/19/22 documented as of this encounter
--- OUTSIDE RECORDS SUMMARY | 2024-08-19 13:47 | XMS_ITS | Encounter Summary ---
Author Organization [facility] Address [address] [place] [address]. [place] [address] [place] [address] Care Team Providers Care Sifter And Miller Name Role Phone Inderjit Narayan DO Primary Care Provider + Reason for Visit * Reason Comments Hand Pain Right hand and thumb pain for several months. Worse in the morning. Hypertension Presents for routine 3 month follow up. Encounter Details Date Type Department Care Team (Late st Contact Info) Description 07/10/2024 2:20 PM LEAD CUSTODIAN Office Visit [facility] Medical Group Family & Internal Medicine - [address] [phone] Inderjit Narayan DO [address] [place] [id number] Hand Pain (Right hand and thumb pain [...] on file Legal Sex Male 10:29 AM LEAD CUSTODIAN Gender Identity Not on file Sexual Orientation Not on file Occupation Industry Job Start Date Job End Date Not on file Not on file Not on file Not on file documented as of this encounter Last Filed Vital Signs Vital Sign Reading Time Taken Comments Blood Pressure 132/70 07/10/2024 2:19 PM LEAD CUSTODIAN Pulse 72 07/10/2024 2:19 PM LEAD CUSTODIAN Temperature 36.2 ??C (97.2 ??F) 07/10/2024 2:19 PM CS T Respiratory Rate 16 07/10/2024 2:19 PM LEAD CUSTODIAN Oxygen Saturation 95% 07/10/2024 2:19 PM LEAD CUSTODIAN Inhaled Oxygen Concentration - - Weight 96.7 kg (213 lb 3.2 oz) 07/10/2024 2:19 P M LEAD CUSTODIAN Height 180.3 cm (5' 11 ) 07/10/2024 2:19 PM LEAD CUSTODIAN Body Mass Index 29.74 07/10/2024 2:19 PM LEAD CUSTODIAN documented in this encounter Patient Instructions * Patient Instructions* Inderjit Narayan DO - 07/10/2024 2:20 PM LEAD CUSTODIAN Try Voltaren gel on your hand to see if this helps your hand pain. We do not recommend doing this multiple times a day multiple days in a row. CUSTODIAN documented in this encounter Progress Notes * [...] Colon adenoma 01/22/2014 GERD (gastroesophageal reflux disease) [id number] Hypertension Kidney stone 12/22/2022 S/P right rotator [...] Heart Disease Mother Bell Leukemia Mother Bell MA Father Breast Cancer Sister 1/2 sister Cancer [...] 50 mcg/ 0.50mL dose 09/20/2020, 10/18/2020, 06/13/2021 [employer] COVID-19 (12+) MRNA, LNP-S, PF, FREDY-SUCROSE, 30 [...] if needed. Pt v/u. Inderjit Narayan DO CUSTODIAN documented in this encounter Plan of Treatment Upcoming Encounters Date Type Department Care Team (Late st Contact Info) Description 08/22/2024 8:00 AM LEAD CUSTODIAN Laboratory Only [facility] Medical Group Family & Internal Medicine [address] [address] Inderjit Narayan DO [address] [place] [address] 09/08/2024 2:30 PM LEAD CUSTODIAN Appointment [facility] [address] [place] [address] Guido Rider 3 [facility] [address] [place] [address] 10/05/2024 3:00 PM LEAD CUSTODIAN Appointment [facility] [place] [address] Guido Rider 3 [facility] [address] [place] [address] 10/13/2024 10:30 AM LEAD CUSTODIAN Office Visit [facility] Multispecialty Care - [facility] 3 [facility]., [address] [place] [address] Guido Rider 3 [facility] [address] [place] [address] 01/08/2025 2:20 PM CDT Office Visit [facility] Medical Group Family & Internal Medicine - [address] [address] Inderjit Narayan DO [address] [place] [address] Scheduled Orders Name Type Priority Associated Diagnoses [...] OF SKIN TAGS Routine 07/10/2024 2:56 PM LEAD CUSTODIAN AK (actinic keratosis) Skin tag documented in this encounter Results * Skin Tag Removal (07/10/2024 2:56 PM LEAD CUSTODIAN) Narrative Inderjit Narayan DO - 07/10/2024 2:56 PM LEAD CUSTODIAN Inderjit Narayan, DO ? 07/10/2024 ??3:05 PM [...] limb documented in this encounter Care Teams Sifter And Miller Relationship Specialty Start Date End Date Inderjit Narayan DO [address] [place] [address] PCP - General 12/19/22 documented as of this encounter
--- OUTSIDE RECORDS SUMMARY | 2024-08-19 13:47 | XMS_ITS | Encounter Summary ---
Author Organization [facility] Address [address] [place] [address]. [place] [address] [place] [address] Care Team Providers Care Drapery Cutter Name Role Phone Inderjit Narayan DO Primary Care Provider + Reason for Visit * Reason Comments Cough Encounter Details Date Type Department Care Team (Late st Contact Info) Description 02/03/2024 2:20 PM CDT Office Visit [facility] Medical Group Multispecialty Care - [place] [address] [place] [address] Janine Nguyen, BANKING OFFICER [address] [facility] [address] [place] [address] Cough Social History Tobacco Use Types Packs/Day [...] on file Legal Sex Male 10:29 AM BOXER OPERATOR Gender Identity Not on file Sexual [...] a cough. Went to urgent care at [facility] on December 16 he was treated [...] Colon adenoma 01/22/2014 GERD (gastroesophageal reflux disease) [id number] Hypertension Kidney stone 12/22/2022 S/P right rotator [...] the day of the encounter. This includes vlxd-xo-gupj and hkq-lshn-ah-face time I provided on the day of [...] RTC as scheduled JANINE NGUYEN NP 02/03/[address] [facility]. documented in this encounter Plan of Treatment Upcoming Encounters Date Type Department Care Team (Late st Contact Info) Description 08/22/2024 8:00 AM BOXER OPERATOR Laboratory Only [facility] Family & Internal Medicine [address] [place] [address] Inderjit Narayan DO [address] [place] [address] 09/08/2024 2:30 PM BOXER OPERATOR Appointment [facility] [address] [place] [address] Guido Rider, DO 3 [facility] [address] [place] [address] 10/05/2024 3:00 PM BOXER OPERATOR Appointment [facility] [place] [address] Guido Rider DO 3 [facility] [address] [place] [address] 10/13/2024 10:30 AM BOXER OPERATOR Office Visit [facility] Multispecialty Care - [facility] [address] [facility] [address] [place] [address] Guido Rider DO [address] [facility] [address] [place] [address] 01/08/2025 2:20 PM CDT Office Visit [facility] Family & Internal Medicine - [address] [address] Inderjit Narayan DO [address] [place] [address] documented as of this encounter Visit Diagnoses Diagnosis Subacute cough- Primary Cough Allergic rhinitis, unspecified seasonality, unspecified trigger documented in this encounter Care Teams Drapery Cutter Relationship Specialty Start Date End Date Inderjit Narayan DO [address] [place] [address] PCP - General 12/19/22 documented as of this encounter
--- OUTSIDE RECORDS SUMMARY | 2024-08-19 13:47 | XMS_ITS | Encounter Summary ---
Author Organization [facility] Address [address] [place] [address]. [place] [address] [place] [address] Care Team Providers Care Retail Reset Merchandiser Name Role Phone Inderjit Narayan DO Primary [...] file Legal Sex Male 10:29 AM SUPERVISOR BLUEPRINTING AND PHOTOCOPY Gender Identity Not on file Sexual Orientation Not on file Occupation Industry Job Start Date Job End Date Not on file Not on file Not on file Not on file documented as of this encounter Plan of Treatment Upcoming Encounters Date Type Department Care Team (Late st Contact Info) Description 08/22/2024 8:00 AM SUPERVISOR BLUEPRINTING AND PHOTOCOPY Laboratory Only [facility] Medical Group Family & Internal Medicine - [place] [address] [place] [address] Inderjit Narayan DO [address] [place] [address] 09/08/2024 2:30 PM SUPERVISOR BLUEPRINTING AND PHOTOCOPY Appointment [facility] [address] [place] [address] Guido Rider, DO 3 [facility] [address] [place] [address] 10/05/2024 3:00 PM SUPERVISOR BLUEPRINTING AND PHOTOCOPY Appointment [facility] Respiratory Therapy [facility] [address] Guido Rider, DO 3 [facility] [address] [place] [address] 10/13/2024 10:30 AM SUPERVISOR BLUEPRINTING AND PHOTOCOPY Office Visit [facility] Multispecialty Care - [facility] 3 [facility] [address] [place] [address] Guido Rider, DO 3 [facility] [address] [place] [address] 01/08/2025 2:20 PM CDT Office Visit [facility] Medical [facility] Family & Internal Medicine [address] [address] Inderjit Narayan DO [address] [place] [address] documented as of this encounter Visit Diagnoses Not on filedocumented in this encounter Care Teams Retail Reset Merchandiser Relationship Specialty Start Date End Date Inderjit Narayan DO [address] [place] [address] PCP - General 12/19/22 documented as of this encounter
--- OUTSIDE RECORDS SUMMARY | 2024-08-19 13:47 | XMS_ITS | Encounter Summary ---
Author Organization [facility] Address [address] [place] [address]. [place], [place] [address] [place] [address] Care Team Providers Care Radiosonde Operator Name Role Phone Luiz Smalls DO Primary [...] OFFICE/OUTPT VISIT,EST,LEVL V Luiz Smalls DO [address] [place] [address] Phone: tel:[phone] fax:[phone] [facility] Medical Group Multispecialty Care - [facility] 3 [facility], [address] [place] [address] Phone: tel: fax: Referral ID Status Reason Start Date Expiration Date Visits Requested Visits Authorized [id number] Authorized Specialty Services 04/15/2025 99 99 Reason for Visit * Reason Onset Date Comments Referral 03/15/2024 pulmonology Encounter Details Date Type Department Care Team (Late st Contact Info) Description 03/15/2024 Telephone [facility] Medical Group Family & Internal Medicine [facility] [address] [place] [address] Luiz Smalls DO [address] [place] [address] Referral (pulmonology) Social History Tobacco Use Types [...] on file Legal Sex Male 10:29 AM CHARGER Gender Identity Not on file Sexual Orientation [...] in FAMILY PRACTICE was on: 02/14/2024 in [facility] Future appointment scheduled: Future Appointments Date Time Provider Department Center 03/17/2024 4:00 PM NOEMI RT PFT RM 1 [facility] NOEMI 03/30/2024 2:00 PM Luiz Smalls DO [id number] documented in this encounter Plan of Treatment Upcoming Encounters Date Type Department Care Team (Late st Contact Info) Description 08/22/2024 8:00 AM CHARGER Laboratory Only [facility] Family & Internal Medicine - [address] [address] Luiz Smalls, [address] [place] [address] 09/08/2024 2:30 PM CHARGER Appointment [facility] [address] [place] [address] Guido Rider DO 3 [facility] [address] [place] [address] 10/05/2024 3:[address] [facility] [place] [address] Guido Rider DO 3 [facility] [address] [place] [address] 10/13/2024 10:30 AM CHARGER Office Visit [facility] Multispecialty Care - [facility] 3 [facility] [address] [place] [address] Guido Rider DO 3 [facility] [address] [place] [address] 01/08/2025 2:20 PM CDT Office Visit [facility] Family & Internal [facility] - [address] [address] [place] [address] [place] [address] Scheduled Referrals Name Type Priority Associated Diagnoses Orde r Schedule Ambulatory referral to Pulmonology (OTHER) Referral Routine Acute respiratory disease Ordered: 03/15/2024 documented as of this encounter Visit Diagnoses Diagnosis Acute respiratory disease- Primary Acute upper respiratory infections of unspecified site documented in this encounter Care Teams Radiosonde Operator Relationship Specialty Start Date End Date Luiz Smalls DO [address] [place] [address] PCP - General 12/19/22 documented as of this encounter
--- OUTSIDE RECORDS SUMMARY | 2024-08-19 13:47 | XMS_ITS | Encounter Summary ---
Author Organization [facility] Address [address] [place] [address]. [place] [address] [place] [address] Care Team Providers Care Fur Puller Name Role Phone Inderjit Narayan DO Primary [...] on file Legal Sex Male 10:29 AM FREELANCE DESIGNER Gender Identity Not on file Sexual Orientation Not on file Occupation Industry Job Start Date Job End Date Not on file Not on file Not on file Not on file documented as of this encounter Plan of Treatment Upcoming Encounters Date Type Department Care Team (Late st Contact Info) Description 08/22/2024 8:00 AM FREELANCE DESIGNER Laboratory Only [facility] Medical Group Family & Internal Medicine - [address] [address] Inderjit Narayan DO [facility] [place] [address] 09/08/2024 2:30 PM FREELANCE DESIGNER Appointment [facility] CT [address] [place] [address] Guido Rider, DO 3 [facility] [address] [place] [address] 10/05/2024 3:00 PM FREELANCE DESIGNER Appointment [facility] [place] [address] Guido Rider DO 3 [facility] [address] [place] [address] 10/13/2024 10:30 AM FREELANCE DESIGNER Office Visit [facility] Multispecialty Care - [facility] 3 [facility]., [address] [place] [address] Guido Rider, DO 3 [facility] [address] [place] [address] 01/08/2025 2:20 PM CDT Office Visit [facility] Medical [facility] Family & Internal Medicine [address] [address] Inderjit Narayan DO [address] [place] [address] documented as of this encounter Visit Diagnoses Not on filedocumented in this encounter Care Teams Fur Puller Relationship Specialty Start Date End Date Inderjit Narayan DO [address] [place] [address] PCP - General 12/19/22 documented as of this encounter
--- OUTSIDE RECORDS SUMMARY | 2024-08-19 13:47 | XMS_ITS | Encounter Summary ---
Author Organization [facility] Address [address] [place] [address]. [place] [address] [place] [address] Care Team Providers Care Clinical Biochemist Name Role Phone Inderjit Narayan DO Primary [...] on file Legal Sex Male 10:29 AM LOCK OPERATOR Gender Identity Not on file Sexual Orientation Not on file Occupation Industry Job Start Date Job End Date Not on file Not on file Not on file Not on file documented as of this encounter Plan of Treatment Upcoming Encounters Date Type Department Care Team (Late st Contact Info) Description 08/22/2024 8:00 AM LOCK OPERATOR Laboratory Only [facility] Medical Group Family & Internal Medicine - [place] [address] [place] [address] Inderjit Narayan DO [address] [place] [address] 09/08/2024 2:30 PM LOCK OPERATOR Appointment [facility] [address] [place] [address] Guido Rider, DO 3 [facility] [address] [place] [address] 10/05/2024 3:00 PM LOCK OPERATOR Appointment [facility] Respiratory Therapy [facility] [place] [address] Guido Rider, DO 3 [facility] [address] [place] [address] 10/13/2024 10:30 AM LOCK OPERATOR Office Visit [facility] Multispecialty Care - [facility] 3 [facility] [address] [place] [address] Guido Rider, DO 3 [facility] [address] [place] [address] 01/08/2025 2:20 PM CDT Office Visit [facility] Medical [facility] Family & Internal Medicine [address] [address] Inderjit Narayan DO [address] [place] [address] documented as of this encounter Visit Diagnoses Not on filedocumented in this encounter Care Teams Clinical Biochemist Relationship Specialty Start Date End Date Inderjit Narayan DO [address] [place] [address] PCP - General 12/19/22 documented as of this encounter
--- OUTSIDE RECORDS SUMMARY | 2024-08-19 13:47 | XMS_ITS | Encounter Summary ---
Author Organization [facility] Address [address] [place] [address]. [place] [address] [place] [address] Care Team Providers Care Retarder Operator Name Role Phone Inderjit Narayan DO Primary Care Provider + Encounter Details Date Type Department Care Team (Latest Contact Info) Description 03/22/2024 2:30 PM CDT - 03/22/2024 11:59 PM CDT Hospital Encounter [facility] [place] [address] Inderjit Narayan DO [address] [place], [place] [phone] Discharge Disposition: Home or Self Care (Routine [...] on file Legal Sex Male 10:29 AM CERTIFIED NEURODIAGNOSTIC TECHNOLOGIST Gender Identity Not on file Sexual Orientation [...] st Contact Info) Description 08/22/2024 8:00 AM CERTIFIED NEURODIAGNOSTIC TECHNOLOGIST Laboratory Only [facility] Family & Internal Medicine [address] [address] [place] [address] [place] [address] 09/08/2024 2:30 PM CERTIFIED NEURODIAGNOSTIC TECHNOLOGIST [facility]ment [facility] [address] [place] [address] Guido Rider DO 3 [facility] [address] [place] [address] 10/05/2024 3:00 PM CERTIFIED NEURODIAGNOSTIC TECHNOLOGIST Appointment [facility] [place] [address] Guido Rider DO 3 [facility] [address] [place] [address] 10/13/2024 10:30 AM CERTIFIED NEURODIAGNOSTIC TECHNOLOGIST Office Visit [facility] Multispecialty Care - [facility] 3 [facility] [address] [place] [address] Guido Rider DO 3 [facility] [address] [place] [address] 01/08/2025 2:20 PM CDT Office Visit [facility] Family & Internal [facility] [address] [place] [address] Inderjit Narayan DO [address] [place] [address] documented as of this encounter Visit Diagnoses Not on filedocumented in this encounter Care Teams Retarder Operator Relationship Specialty Start Date End Date Inderjit Narayan DO [address] [place] [address] PCP - General 12/19/22 documented as of this encounter
--- OUTSIDE RECORDS SUMMARY | 2024-08-19 13:47 | XMS_ITS | Encounter Summary ---
Author Organization [facility] Address [address] [place] [address]. [place] [address] [place] [address] Care Team Providers Care Lap Welder Name Role Phone Inderjit Narayan DO [...] file Legal Sex Male 10:29 AM MORTGAGE UNDERWRITER Gender Identity Not on file Sexual Orientation Not on file Occupation Industry Job Start Date Job End Date Not on file Not on file Not on file Not on file documented as of this encounter Plan of Treatment Upcoming Encounters Date Type Department Care Team (Late st Contact Info) Description 08/22/2024 8:00 AM MORTGAGE UNDERWRITER Laboratory Only [facility] Medical Group Family & Internal Medicine - [address] [address] Inderjit Narayan DO [facility] [place] [address] 09/08/2024 2:30 PM MORTGAGE UNDERWRITER Appointment [facility] [address] [place] [address] Guido Rider, DO 3 [facility] [address] [place] [address] 10/05/2024 3:00 PM MORTGAGE UNDERWRITER Appointment [facility] [place]piratory [place] [address] Guido Rider DO 3 [facility] [address] [place] [address] 10/13/2024 10:30 AM MORTGAGE UNDERWRITER Office Visit [facility] Multispecialty Care - [facility] 3 [facility] [address] [place] [address] Guido Rider, DO 3 [facility] [address] [place] [address] 01/08/2025 2:20 PM CDT Office Visit [facility] Medical [facility] Family & Internal Medicine [address] [address] Inderjit Narayan DO [address] [place] [address] documented as of this encounter Visit Diagnoses Not on filedocumented in this encounter Care Teams Lap Welder Relationship Specialty Start Date End Date Inderjit Narayan DO [address] [place] [address] PCP - General 12/19/22 documented as of this encounter
--- OUTSIDE RECORDS SUMMARY | 2024-08-19 13:48 | XMS_ITS | Encounter Summary ---
Author Organization [facility] Address [address] [place] [address]. [place] [address] [place] [address] Care Team Providers Care Corrugator Name Role Phone Inderjit Narayan DO Primary Care Provider + Encounter Details Date Type Department Care Team (Latest Contact Info) Description 07/19/2023 - 07/19/2023 11:59 PM SENIOR ESTIMATOR Hospital Encounter [facility] [address] [place] [address] Inderjit Narayan DO [address] [place] [address] Discharge Disposition: Home or Self Care (Routine [...] on file Legal Sex Male 10:29 AM SENIOR ESTIMATOR Gender Identity Not on file Sexual Orientation [...] st Contact Info) Description 08/22/2024 8:00 AM SENIOR ESTIMATOR Laboratory Only [facility] Medical Group Family & Internal Medicine - [place] [address] [place] [address] Inderjit Narayan DO [facility] [place] [place] [address] 09/08/2024 2:30 PM SENIOR ESTIMATOR [facility]ointment [facility] [address] [place] [address] Guido Rider, DO 3 [facility] [address] [place] [address] 10/05/2024 3:00 PM SENIOR ESTIMATOR Appointment [facility] [place] [address] Guido Rider DO 3 [facility] [address] [place] [address] 10/13/2024 10:30 AM SENIOR ESTIMATOR Office Visit [facility] Multispecialty Care - [facility] 3 [facility] [address] [place] [address] Guido Rider DO 3 [facility] [address] [place] [address] 01/08/2025 2:20 PM CDT Office Visit [facility] Medical [facility] Family & Internal Medicine [address] [address] Inderjit Narayan DO [address] [place] [address] documented as of this encounter Visit Diagnoses Not on filedocumented in this encounter Care Teams Corrugator Relationship Specialty Start Date End Date Inderjit Narayan DO [address] [place] [address] PCP - General 12/19/22 documented as of this encounter
--- OUTSIDE RECORDS SUMMARY | 2024-08-19 13:48 | XMS_ITS | Encounter Summary ---
Author Organization [facility] Address [address] [place] [address]. [place] [address] [place] [address] Care Team Providers Care Switchboard Operator Helper Name Role Phone Inderjit Narayan DO [...] on file Legal Sex Male 10:29 AM WATER TAXI OPERATOR Gender Identity Not on file Sexual [...] st Contact Info) Description 08/22/2024 8:00 AM WATER TAXI OPERATOR Laboratory Only [facility] Medical Group Family & Internal Medicine - [place] [address] [place] [phone] Inderjit Narayan DO [facility] [place] [address] 09/08/2024 2:30 PM WATER TAXI OPERATOR [facility]ointment [facility] [address] [place] [address] Guido Rider, DO 3 [facility] [address] [place] [address] 10/05/2024 3:00 PM WATER TAXI OPERATOR Appointment [facility] [place] [address] Guido Rider DO 3 [facility] [address] [place] [address] 10/13/2024 10:30 AM WATER TAXI OPERATOR Office Visit [facility] Medical [facility] Multispecialty Care - [facility] 3 [facility]., [address] [place] [address] Guido Rider, 3 [facility] [address] [place] [address] 01/08/2025 2:20 PM CDT Office Visit [facility] Medical Group Family & Internal Medicine [facility] [address] [place] [address] Inderjit Narayan DO [address] [place] [address] documented as of this encounter Visit Diagnoses Not on filedocumented in this encounter Care Teams Switchboard Operator Helper Relationship Specialty Start Date End Date Inderjit Narayan DO [address] [place] [address] PCP - General 12/19/22 documented as of this encounter
--- OUTSIDE RECORDS SUMMARY | 2024-08-19 13:48 | XMS_ITS | Encounter Summary ---
Author Organization [facility] Address [address] [place] [address]. [place] [address] [place] [address] Care Team Providers Care Plastics And Composites Inspector Name Role Phone Luiz Smalls DO Primary Care Provider + Reason for Visit * Reason Onset Date Comments Medication Request 09/23/2023 Encounter Details Date Type Department Care Team (Late st Contact Info) Description 09/23/2023 Telephone [facility] Medical Group Family & Internal Medicine [facility] [address] [place] [address] Luiz Smalls DO [address] [place] [address] Medication Request Social History Tobacco [...] on file Legal Sex Male 10:29 AM SPINE SUPERVISOR Gender Identity Not on file Sexual [...] in FAMILY PRACTICE was on: 07/22/2023 in [facility] Future Appointments Date Time Provider Department Center 01/24/2024 2:20 PM Luiz Smalls DO MGFMMRVL [facility]/pharmacy #[id number] [place], [place] - [address] [place] [address] Current Outpatient Medications: cetirizine-pseudoephedrine ER (ZYRTEC-D) 5mg-120mg [...] total) by mouth daily., Disp: , Rfl: E SUPERVISOR * Jessica Farr - 09/23/2023 2:24 PM CST Refill request received from Patient Medication: montelukast (SINGULAIR) 10 MG tablet simvastatin (ZOCOR) 40 MG tablet Pt asking for 90 day supply for all medications. Pharmacy: [facility]/pharmacy #[id number] [place], [place] - [address] [place] [address] Last visit with LUIZ SMALLS in FAMILY PRACTICE was on: 07/22/2023 in [facility] Future Appointments Date Time Provider Department Center 01/24/2024 2:20 PM Luiz Smalls DO FMMRVL [facility] E SUPERVISOR documented in this encounter Plan of Treatment Upcoming Encounters Date Type Department Care Team (Late st Contact Info) Description 08/22/2024 8:00 AM SPINE SUPERVISOR Laboratory Only [facility] Family & Internal Medicine - [place] [address] [place] [address] Luiz Smalls DO [address] [place] [address] 09/08/2024 2:30 PM SPINE SUPERVISOR [facility]ointment [facility] [address] [place] [address] Guido Rider DO 3 [facility] [address] [place] [address] 10/05/2024 3:00 PM SPINE SUPERVISOR Appointment [facility] [place]piratory [place] [address] Guido Rider DO 3 [facility] [address] [place] [address] 10/13/2024 10:30 AM SPINE SUPERVISOR Office Visit [facility] Multispecialty Care - [facility] [address] [facility] [address] [place] [address] Guido Rider DO 3 [facility] [address] [place] [address] 01/08/2025 2:20 PM CDT Office Visit [facility] Medical Group Family & Internal Medicine [facility] [address] [place] [address] Luiz Smalls DO [address] [place] [address] documented as of this encounter Visit Diagnoses Diagnosis Pure hypercholesterolemia- Primary Cough, unspecified documented in this encounter Care Teams Plastics And Composites Inspector Relationship Specialty Start Date End Date Luiz Smalls DO [address] [place] [address] PCP - General 12/19/22 documented as of this encounter
--- OUTSIDE RECORDS SUMMARY | 2024-08-19 13:48 | XMS_ITS | Encounter Summary ---
Author Organization [facility] Address [address] [place] [address]. [place] [address] [place] [address] Care Team Providers Care Tank Processor Name Role Phone Luiz Smalls DO Primary Care Provider + Reason for Visit * Reason Comments Follow Up Foot Pain Lab Results Hypertension Encounter Details Date Type Department Care Team (Late st Contact Info) Description 07/22/2023 10:00 AM GRANTS OFFICER Office Visit [facility] Medical Group Family & Internal Medicine [facility] [address] [place] [address] Luiz Smalls DO [address] [place], [place] [phone] Follow Up; Foot Pain; Lab Results; Hypertension [...] on file Legal Sex Male 10:29 AM GRANTS OFFICER Gender Identity Not on file Sexual Orientation Not on file Occupation Industry Job Start Date Job End Date Not on file Not on file Not on file Not on file documented as of this encounter Last Filed Vital Signs Vital Sign [place] Time Taken Comments Blood Pressure 102/66 07/22/2023 10:05 AM GRANTS OFFICER Pulse 69 07/22/2023 10:05 AM GRANTS OFFICER Temperature 36.7 ??C (98 ??F) 07/22/2023 10: 05 AM GRANTS OFFICER Respiratory Rate 14 07/22/2023 10:0 5 AM GRANTS OFFICER Oxygen Saturation 96% 07/22/2023 10: 05 AM GRANTS OFFICER Inhaled Oxygen Concentration - - Weight 93.8 kg (206 lb 11.2 oz) 023 10:05 AM GRANTS OFFICER Height 180.3 cm (5' 11 ) 07/22/2023 10: 05 AM GRANTS OFFICER Body Mass Index 28.83 07/22/2023 10:05 AM GRANTS OFFICER documented in this encounter Progress Notes [...] ASSAY PERFORMED BY ENZYME IMMUNOASSAY METHODOLOGY USING [employer] REAGENT. 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 Patient verbalized understanding. Luiz Smalls DO TS OFFICER documented in this encounter Plan of Treatment Upcoming Encounters Date Type Department Care Team (Late st Contact Info) Description 08/22/2024 8:00 AM GRANTS OFFICER Laboratory Only [facility] Medical Group Family & Internal Medicine - [place] [address] [place] [address] Luiz Smalls DO [facility] [place] [address] 09/08/2024 2:30 PM GRANTS OFFICER Appointment [facility] CT [address] [place] [address] Guido Rider, DO 3 [facility] [address] [place] [address] 10/05/2024 3:00 PM GRANTS OFFICER Appointment [facility] [place] [address] Guido Rider DO 3 [facility] [address] [place] [address] 10/13/2024 10:30 AM GRANTS OFFICER Office Visit [facility] Multispecialty Care - [facility] 3 [facility] [address] [place] [address] Guido Rider DO 3 [facility] [address] [place] [address] 01/08/2025 2:20 PM CDT Office Visit [facility] Family & Internal Medicine - [address] [address] Luiz Smalls DO [address] [place] [address] documented as of this encounter Results * XR FOOT RT 3V (07/22/2023 10:59 AM GRANTS OFFICER) Anatomical Region Laterality Modality Foot Radiographic Eleanor ging 07/22/2023 3:06 PM GRANTS OFFICER Impressions 07/22/2023 3:07 PM GRANTS OFFICER IMPRESSION: No acute osseous abnormality or osseous healing changes. Ordered By: LUIZ SMALLS Interpreted By: Bala White MD, 07/22/2023 3:06 PM Narrative 07/22/2023 3:07 PM GRANTS OFFICER Examination: XR FOOT RT 3V Exam time: [...] hypercholesterolemia documented in this encounter Care Teams Tank Processor Relationship Specialty Start Date End Date Luiz Smalls DO [address] [place] [address] PCP - General 12/19/22 documented as of this encounter
--- OUTSIDE RECORDS SUMMARY | 2024-08-19 13:48 | XMS_ITS | Encounter Summary ---
Author Organization [facility] Address [address] [place] [address]. [place] [address] [place] [address] Care Team Providers Care Microbiology Director Name Role Phone Inderjit Narayan DO [...] on file Legal Sex Male 10:29 AM FORMING MACHINE UPKEEP MECHANIC HELPER Gender Identity Not on file Sexual Orientation Not on file Occupation Industry Job Start Date Job End Date Not on file Not on file Not on file Not on file documented as of this encounter Plan of Treatment Upcoming Encounters Date Type Department Care Team (Late st Contact Info) Description 08/22/2024 8:00 AM FORMING MACHINE UPKEEP MECHANIC HELPER Laboratory Only [facility] Medical Group Family & Internal Medicine - [address] [address] Inderjit Narayan DO [address] [place] [address] 09/08/2024 2:30 PM FORMING MACHINE UPKEEP MECHANIC HELPER Appointment [facility] CT [address] [place] [address] Guido Rider, DO 3 [facility] [address] [place] [address] 10/05/2024 3:00 PM FORMING MACHINE UPKEEP MECHANIC HELPER Appointment [facility] [place] [address] Guido Rider, DO 3 [facility] [address] [place] [address] 10/13/2024 10:30 AM FORMING MACHINE UPKEEP MECHANIC HELPER Office Visit [facility] Multispecialty Care - [facility] 3 [facility] [address] [place] [address] Guido Rider, DO 3 [facility] [address] [place] [address] 01/08/2025 2:20 PM CDT Office Visit [facility] Medical [facility] Family & Internal Medicine [address] [address] Inderjit Narayan DO [address] [place] [address] documented as of this encounter Visit Diagnoses Not on filedocumented in this encounter Care Teams Microbiology Director Relationship Specialty Start Date End Date Inderjit Narayan DO [address] [place] [address] PCP - General 12/19/22 documented as of this encounter
--- OUTSIDE RECORDS SUMMARY | 2024-08-19 13:48 | XMS_ITS | Encounter Summary ---
Author Organization [facility] Address [address] [place] [address]. 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 SERVICE SUPERVISOR Gender Identity Not on file Sexual Orientation Not on file Occupation Industry Job Start Date Job End Date Not on file Not on file Not on file Not on file documented as of this encounter Plan of Treatment Upcoming Encounters Date Type Department Care Team (Late st Contact Info) Description 08/22/2024 8:00 AM LAWN SERVICE SUPERVISOR Laboratory Only [facility] Medical Group Family & Internal Medicine - [place] [address] [place] [address] Inderjit Narayan DO [address] [place] [address] 09/08/2024 2:30 PM LAWN SERVICE SUPERVISOR Appointment [facility] CT [address] [place] [address] Guido Rider, DO 3 [facility] [address] [place] [address] 10/05/2024 3:00 PM LAWN SERVICE SUPERVISOR Appointment [facility] Respiratory Therapy [facility] [place] [address] Guido Rider, DO 3 [facility] [address] [place] [address] 10/13/2024 10:30 AM LAWN SERVICE SUPERVISOR Office Visit [facility] Multispecialty Care - [facility] 3 [facility] [address] [place] [address] Guido Rider, DO 3 [facility] [address] [place] [address] 01/08/2025 2:20 PM CDT Office Visit [facility] Medical [facility] Family & Internal Medicine [address] [address] Inderjit Narayan DO [address] [place] [address] documented as of this encounter Visit Diagnoses Not on filedocumented in this encounter Care Teams First Aid Attendant Relationship Specialty Start Date End Date Inderjit Narayan DO [address] [place] [address] PCP - General 12/19/22 documented as of this encounter
--- OUTSIDE RECORDS SUMMARY | 2024-08-19 13:48 | XMS_ITS | Encounter Summary ---
Author Organization [facility] Address [address] [place] [address]. [place] [address] [place] [address] Care Team Providers Care Transporter Driver Name Role Phone Luiz Smalls DO Primary Care Provider + Reason for Visit * Reason Onset Date Comments Medication Request 04/26/2023 Encounter Details Date Type Department Care Team (Late st Contact Info) Description 04/26/2023 Telephone [facility] Medical Group Family & Internal Medicine [facility] [address] [place] [address] Luiz Smalls DO [address] [place] [address] Medication Request Social History Tobacco Use Types Packs/Day Years Used Date Smoking Tobacco: Never Passive Smoke Exposure: Never Smokeless Tobacco: Never Alcohol Use Standard Drinks/Week Comments Never 0 (1 standard drink = 0.6 oz pur e alcohol) Sex and Gender Information Value Date Recorded Sex Assigned at Not on file Legal Sex Male 10:29 AM HOURLY SALES STAFF Gender Identity Not on file Sexual Orientation [...] in FAMILY PRACTICE was on: 12/22/2022 in [facility] Future Appointments Date Time Provider Department Center 06/28/2023 7:20 AM [facility] 07/05/2023 3:20 PM Luiz Smalls DO MGFMMRVL [facility]/pharmacy [address] [place] [address] Current Outpatient Medications: cetirizine-pseudoephedrine ER (ZYRTEC-D) 5mg-120mg [...] ER (ZYRTEC-D) 5mg-120mg 12 hr tablet Pharmacy: [facility] in [address] Last visit with LUIZ SMALLS in FAMILY PRACTICE was on: 12/22/2022 in [facility] Future Appointments Date Time Provider Department Center 06/28/2023 7:20 AM [facility] 07/05/2023 3:20 PM Luiz Smalls DO FMMRVTejas [facility] Pt asking for notification when sent off. documented in this encounter Plan of Treatment Upcoming Encounters Date Type Department Care Team (Late st Contact Info) Description 08/22/2024 8:00 AM HOURLY SALES STAFF Laboratory Only [facility] Medical Group Family & Internal Medicine - [place] [address] [place] [address] Luiz Smalls DO [address] [place] [address] 09/08/2024 2:30 PM HOURLY SALES STAFF Appointment [facility] CT [address] [place] [address] Guido Rider DO 3 [facility] [address] [place] [address] 10/05/2024 3:00 PM HOURLY SALES STAFF Appointment [facility] Respiratory Therapy [address] [facility] [place] [address] Guido Rider DO 3 [facility] [address] [place] [address] 10/13/2024 10:30 AM HOURLY SALES STAFF Office Visit [facility] Medical [facility] Multispecialty Care - [facility] 3 [facility] [address] [place] [address] Guido Rider DO 3 [facility] [address] [place] [address] 01/08/2025 2:20 PM CDT Office Visit [facility] Medical Group Family & Internal Medicine [address] [address] Luiz Smalls DO [address] [place] [address] documented as of this encounter Visit Diagnoses Diagnosis Allergic rhinitis, unspecified seasonality, unspecified trigger- Primary documented in this encounter Care Teams Transporter Driver Relationship Specialty Start Date End Date Luiz Smalls DO [address] [place] [address] PCP - General 12/19/22 documented as of this encounter
--- OUTSIDE RECORDS SUMMARY | 2024-08-19 13:48 | XMS_ITS | Encounter Summary ---
Author Organization [facility] Address [address] [place] [address]. 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 Gender Identity Not on file Sexual Orientation Not on file Occupation Industry Job Start Date Job End Date Not on file Not on file Not on file Not on file documented as of this encounter Plan of Treatment Upcoming Encounters Date Type Department Care Team (Late st Contact Info) Description 08/22/2024 8:00 AM ECOSYSTEM ECOLOGY PROFESSOR Laboratory Only [facility] Family & Internal Medicine - [address] [phone] Inderjit Narayan DO [facility] [place] [address] 09/08/2024 2:30 PM ECOSYSTEM ECOLOGY PROFESSOR Appointment [facility] [place] [address] [place] [address] Guido Rider, DO 3 Health system Bl[address] [place] [address] 10/05/2024 3:00 PM ECOSYSTEM ECOLOGY PROFESSOR Appointment Health system [place]piratory [place] [address] Guido Rider DO 3 [facility] [address] [place] [address] 10/13/2024 10:30 AM ECOSYSTEM ECOLOGY PROFESSOR Office Visit [facility] Multispecialty Care - [facility] 3 [facility] [address] [place] [phone] Guido Rider, DO 3 [facility] [address] [place] [address] 01/08/2025 2:20 PM CDT Office Visit [facility] Family & Internal Medicine [address] [phone] Inderjit Narayan DO [address] [place] [address] documented as of this encounter Visit Diagnoses Not on filedocumented in this encounter Care Teams Product Delivery Specialist Relationship Specialty Start Date End Date Inderjit Narayan DO [address] [place] [address] PCP - General 12/19/22 documented as of this encounter
--- OUTSIDE RECORDS SUMMARY | 2024-08-19 13:48 | XMS_ITS | Encounter Summary ---
Author Organization [facility] Address [address] [place] [address]. [place] [address] [place] [address] Care Team Providers Care Head Cashier Name Role Phone Inderjit Narayan DO Primary Care Provider + Reason for Visit * Reason Comments Lab Draw Patient presents for lab draw Encounter Details Date Type Department Care Team (Latest Contact Info) Description 07/19/2023 8:20 AM RETAIL MANAGER Allied Health/Nurse Visit [facility] Family Medicine - [place] [address] [place] [address] Inderjit Narayan DO [address] [place], [place] [phone] Lab Draw (Patient presents for lab draw) [...] on file Legal Sex Male 10:29 AM RETAIL MANAGER Gender Identity Not on file Sexual Orientation Not on file Occupation Industry Job Start Date Job End Date Not on file Not on file Not on file Not on file documented as of this encounter Plan of Treatment Upcoming Encounters Date Type Department Care Team (Late st Contact Info) Description 08/22/2024 8:00 AM RETAIL MANAGER Laboratory Only [facility] Family & Internal Medicine - [place] [address] [place] [address] Inderjit Narayan, [address] [place] [address] 09/08/2024 2:30 PM RETAIL MANAGER Appointment [facility] CT [address] [place] [address] Guido Rider DO 3 [facility] [address] [place] [address] 10/05/2024 3:00 PM RETAIL MANAGER Appointment [facility] [place] [address] Guido Rider 3 [facility] [address] [place] [address] 10/13/2024 10:30 AM RETAIL MANAGER Office Visit [facility] Multispecialty Care - [facility] 3 [facility]., [address] [place] [phone] Guido Rider 3 [facility] [address] [place] [address] 01/08/2025 2:20 PM CDT Office Visit [facility] Family & Internal Medicine - [place] [address] [place] [phone] Inderjit Narayan DO [address] [place] [address] documented as of this encounter Procedures Procedure Name Priority Date/Time Associated Diagnosis Comments TSH W/REFLEX Routine 07/19/2023 10:20 AM RETAIL MANAGER Essential hypertension, benign Pure hypercholesterolem ia Vitamin D deficiency Need for hepatitis C screening test Screening for prostate cancer Screening for endocrine, metabolic and immunity disorder Screening for lipid disorders HEMOGLOBIN, GLYCOSYLATED Routine 07/19/2023 10:20 AM RETAIL MANAGER Prediabetes PROSTATE SPECIFIC ANTIGEN,SCREENING Routine 07/19/2023 10:20 AM RETAIL MANAGER Essential hypertension, benign Pure hypercholesterolem ia Vitamin D deficiency Need for hepatitis C screening test Screening for prostate cancer Screening for endocrine, metabolic and immunity disorder Screening for lipid disorders COMPREHENSIVE METABOLIC PANEL Routine 07/19/2023 10:20 AM RETAIL MANAGER Essential hypertension, benign Pure hypercholesterolem ia Vitamin D deficiency Need for hepatitis C screening test Screening for prostate cancer Screening for endocrine, metabolic and immunity disorder Screening for lipid disorders LIPID PANEL Routine 07/19/2023 10:20 AM RETAIL MANAGER Essential hypertension, benign Pure hypercholesterolem ia Vitamin D deficiency Need for hepatitis C screening test Screening for prostate cancer Screening for endocrine, metabolic and immunity disorder Screening for lipid disorders HEPATITIS C ANTIBODY Routine 07/19/2023 10:20 AM RETAIL MANAGER Essential hypertension, benign Pure hypercholesterolem ia Vitamin D deficiency Need for hepatitis C screening test Screening for prostate cancer Screening for endocrine, metabolic and immunity disorder Screening for lipid disorders CBC W/DIFF AUTOMATED Routine 07/19/2023 10:20 AM RETAIL MANAGER Essential hypertension, benign Pure hypercholesterolem ia Vitamin D deficiency Need for hepatitis C screening test Screening for prostate cancer Screening for endocrine, metabolic and immunity disorder Screening for lipid disorders VITAMIN D, 25 OH Routine 07/19/2023 10:2 0 AM RETAIL MANAGER Essential hypertension, benign Pure hypercholesterolem ia Vitamin D deficiency Need for hepatitis C screening test Screening for prostate cancer Screening for endocrine, metabolic and immunity disorder Screening for lipid disorders CK (CPK) Routine 07/19/2023 10:20 AM RETAIL MANAGER Essential hypertension, benign Pure hypercholesterolem ia Vitamin D deficiency Need for hepatitis C screening test Screening for prostate cancer Screening for endocrine, metabolic and immunity disorder Screening for lipid disorders COLLECTION VENOUS BLOOD VENIPUNCTURE Routine 07/19/2023 8:31 AM RETAIL MANAGER Essential hypertension, benign documented in this encounter Results * (ABNORMAL) COMPREHENSIVE METABOLIC PANEL (07/19/2023 10:20 AM RETAIL MANAGER) [facility] SODIUM S/P/B 139 136 - 145 MMOL/L 07/19/2023 3:05 PM [facility] POTASSIUM S/P/B 4.8 3.5 - 5.1 MMOL/L 07/19/2023 3:05 PM [facility] CHLORIDE S/P/B 103 98 - 107 MMOL/L 07/19/2023 3:05 PM [facility] CO2 28.3 21 - 32 MMOL/L 07/19/2023 3:05 PM [facility] GLUCOSE 102(H) 70 - 99 MG/DL 07/19/2023 3:05 PM [facility] BUN 20(H) 7 - 18 MG/DL 07/19/2023 3:05 PM [facility] CREATININE S/P/B 1.06 0.70 - 1.30 MG/DL 07/19/2023 3:05 PM [facility] CALCIUM S/P/B 9.1 8.4 - 10.5 MG/DL 07/19/2023 3:05 PM [facility] BILIRUBIN TOTAL S/P/B 0.7 0.2 - 1.0 MG/DL 07/19/2023 3:05 PM [facility] ALKALINE PHOSPHATASE S/P/B 67 45 - 115 U/L 07/19/2023 3:05 PM [facility] AST 24 15 - 37 U/L 07/19/2023 3:05 PM [facility] ALT 60 16 - 63 U/L 07/19/2023 3:05 PM RETAIL MANAGER [facility] TOTAL PROTEIN S/P/B 6.9 6.4 - 8.2 G/DL 07/19/2023 3:05 PM [facility] ALBUMIN S/P/B 3.4 3.4 - 5.0 G/DL 07/19/2023 3:05 PM RETAIL MANAGER [facility] ANION GAP 7.7 5 - 15 MMOL/L 07/19/2023 3:05 PM RETAIL MANAGER [facility] Comment:REFERENCE RANGE NOT ESTABLISHED OSMOLALITY (CALC) 291 MOSM/KG 023 3:05 PM RETAIL MANAGER [facility] Comment:REFERENCE RANGE NOT ESTABLISHED GFR ESTIMATE 75(L) >90 ML/MIN/1. 73 M2 07/19/2023 3:05 PM RETAIL MANAGER [facility] KELI KENNEDY GFR NOTES GFR REFERENCE S: 07/19/2023 3:05 PM [facility] Comment: THE ESTIMATED GFR [...] <15 ml/min/1.73 m2 07/19/2023 10:2 0 AM RETAIL MANAGER us Inderjit Narayan DO LABORATORY Final Re sult [facility] [address] [place] [address], [place] [phone] * (ABNORMAL) CBC W/DIFF AUTOMATED (07/19/2023 10:20 AM RETAIL MANAGER) WBC 11.02(H) 4.00 - 10.80 x10'3/uL 07/19/2023 2:14 PM [facility] RBC 5.25 4.50 - 6.10 x10'6/uL 07/19/2023 2:14 PM [facility] HGB 15.9 13.0 - 18.0 G/DL 07/19/2023 2:14 PM [facility] HCT 48.7 37.0 - 52.0 % 07/19/2023 2:14 PM [facility] MCV 92.8 78.0 - 100.0 FL 07/19/2023 2:14 PM [facility] MCH 30.3 27.0 - 31.0 PG 07/19/2023 2:14 PM [facility] MCHC 32.6(L) 33.0 - 36.0 G/DL 07/19/2023 2:14 PM [facility] RDW 12.8 11.5 - 14.5 % 07/19/2023 2:14 PM [facility] PLT 221 150 - 350 x10'3/uL 07/19/2023 2:14 PM [facility] MPV 10.0 7.4 - 10.4 FL 07/19/2023 2:14 PM [facility] DIFFERENTIAL TYPE AUTOMATED DIFFERENTIAL 07/19/2023 2:14 PM [facility] NEUTROPHILS % 64.8 % 07/19/2023 2:14 PM [facility] LYMPHOCYTES % 23.1 % 07/19/2023 2:14 PM [facility] MONOCYTES % 8.6 % 07/19/2023 2:14 PM [facility] EOSINOPHILS % 2.3 % 07/19/2023 2:14 PM [facility] BASOPHILS % 0.7 % 07/19/2023 2:14 PM RETAIL MANAGER [facility] IMMATURE GRANS % 0.5 % 07/19/2023 2:14 PM RETAIL MANAGER [facility] ABS. NEUTROPHILS 7.14 1.60 - 8.30 x10'3/uL 07/19/2023 2:14 PM RETAIL MANAGER [facility] ABS. LYMPHOCYTES 2.55 0.80 - 4.70 x10'3/uL 07/19/2023 2:14 PM RETAIL MANAGER [facility] ABS. MONOCYTES 0.95 0.00 - 1.50 x10'3/uL 07/19/2023 2:14 PM RETAIL MANAGER [facility] ABS. EOSINOPHILS 0.25 0.00 - 0.40 x10'3/uL 07/19/2023 2:14 PM RETAIL MANAGER [facility] ABS. BASOPHILS 0.08 0.00 - 0.20 x10'3/uL 07/19/2023 2:14 PM RETAIL MANAGER [facility] ABS. IMMATURE GRANULOCYTES 0.05(H) 0.00 - 0.03 x10'3/uL 07/19/2023 2:14 PM RETAIL MANAGER [facility] 07/19/2023 10:2 0 AM RETAIL MANAGER Inderjit Narayan DO LABORATORY Final Re sult [facility] [address] [place] [address], * TSH W/REFLEX (07/19/2023 10:20 AM RETAIL MANAGER) TSH 1.461 0.358 - 3.740 uIU/ML 07/19/2023 3:05 PM RETAIL MANAGER [facility] 07/19/2023 10:2 0 AM RETAIL MANAGER Inderjit Narayan DO LABORATORY Final Re sult [facility] KENNED[facility] [address] [place] [address], * LIPID PANEL (07/19/2023 10:20 AM RETAIL MANAGER) CHOLESTEROL 151 <200 MG/DL 07/19/2023 3:05 PM RETAIL MANAGER [facility] TRIGLYCERIDES 105 <150 MG/DL 07/19/2023 3:05 PM RETAIL MANAGER [facility] HDL 64 >40 MG/DL 07/19/2023 3:05 PM RETAIL MANAGER [facility] LDL-C 66 <100 MG/DL 07/19/2023 3:05 PM RETAIL MANAGER [facility] VLDL CALCULATION 21 5 - 28 MG/DL 07/19/2023 3:05 PM [facility] CHOL/HDL RATIO 2.4 0.0 - 4.0 07/19/2023 3:05 PM RETAIL MANAGER [facility] LDL/HDL 1.0 0.41 - 2.13 07/19/2023 3:05 PM [facility] NON HDL CHOLESTEROL 87 <140 MG/DL 07/19/2023 3:05 PM [facility] 07/19/2023 10:2 0 AM RETAIL MANAGER Inderjit Narayan DO LABORATORY Final Re sult Performing Organization Address City/[facility]/ZIP Co de Phone Number [facility] [address] [place] [address], * VITAMIN D, 25 OH (07/19/2023 10:20 AM RETAIL MANAGER) VITAMIN D 25 HYDROXY TOTAL S/P/B 64.4 30 - 100 NG/ML 07/19/2023 3:05 PM RETAIL MANAGER [facility] Comment: ? DEFICIENT ??<20 ?INSUFFICIENT 20-30 ?SUFFICIENT 30-100 07/19/2023 10:2 0 AM RETAIL MANAGER Inderjit Narayan DO LABORATORY Final Re sult Performing Organization Address City/[facility] Co de Phone Number [facility] [address] [place] [address], [place] [phone] * HEPATITIS C ANTIBODY (07/19/2023 10:20 AM RETAIL MANAGER) Pathologist [facility] HEPATITIS C AB NON-REACTI VE NON-REACT ELDER 07/19/2023 6:22 PM RETAIL MANAGER [facility] Comment: ANTIBODIES TO HCV NOT DETECTED. DOES NOT EXCLUDE THE POSSIBILITY OF EXPOSURE TO HCV. 07/19/2023 10:2 0 AM RETAIL MANAGER Inderjit Narayan DO LABORATORY Final Re sult Performing Organization Address [facility] de Phone Number [facility] [address] [place] [address], [place] [phone] * CK (CPK) (07/19/2023 10:20 AM RETAIL MANAGER) CPK 47 39 - 308 U/L 07/19/2023 2:38 PM RETAIL MANAGER [facility] 07/19/2023 10:2 0 AM RETAIL MANAGER Inderjit Narayan DO LABORATORY Final Re sult Performing Organization Address [facility] Co de Phone Number [facility] [address] [place] [address], [place] [phone] * PROSTATE SPECIFIC ANTIGEN,SCREENING (07/19/2023 10:20 AM RETAIL MANAGER) PSA 0.42 <4.00 NG/ML 07/19/2023 3:06 PM RETAIL MANAGER [facility] Comment: ASSAY PERFORMED BY [employer]MMUNOASSAY METHODOLOGY USING SIEMENS DIMENSION REAGENT. PATIENT RESULTS DETERMINED BY ASSAYS FROM DIFFERENT MANUFACTURERS AND/OR BY DIFFERENT METHODS MAY NOT BE COMPARABLE. 07/19/2023 10:2 0 AM RETAIL MANAGER Inderjit Narayan DO LABORATORY Final Re sult Performing Organization Address [facility] Co de Phone Number [facility] [address] [place] [address], [place] [phone] * (ABNORMAL) HEMOGLOBIN, GLYCOSYLATED (07/19/2023 10:20 AM RETAIL MANAGER) HGB A1C 6.0 4.5 - 6.2 % 07/19/2023 2:36 PM RETAIL MANAGER [facility] ESTIMATED AVG GLUCOSE 126(H) 74 - 106 MG/DL 07/19/2023 2:36 PM RETAIL MANAGER [facility] 07/19/2023 10:2 0 AM RETAIL MANAGER Inderjit Narayan LABORATORY Final Re sult Performing Organization Address City/[facility] Co de Phone Number [facility] [address] [place] [address], [place] [phone] documented in this encounter Visit Diagnoses Diagnosis [...] disorders documented in this encounter Care Teams Head Cashier Relationship Specialty Start Date End Date Inderjit Narayan DO [address] [place] [address] PCP - General 12/19/22 documented as of this encounter
--- OUTSIDE RECORDS SUMMARY | 2024-08-19 13:48 | XMS_ITS | Encounter Summary ---
Author Organization [facility] Address [address] [place] [address]. [place] [address] [place] [address] Care Team Providers Care Information Technology Architect Name Role Phone Inderjit Narayan DO Primary [...] file Legal Sex Male 10:29 AM MANAGER TALENT Gender Identity Not on file Sexual Orientation Not on file Occupation Industry Job Start Date Job End Date Not on file Not on file Not on file Not on file documented as of this encounter Plan of Treatment Upcoming Encounters Date Type Department Care Team (Late st Contact Info) Description 08/22/2024 8:00 AM MANAGER TALENT Laboratory Only [facility] Medical Group Family & Internal Medicine - [address] [phone] Inderjit Narayan DO [facility] [place] [address] 09/08/2024 2:30 PM MANAGER TALENT Appointment [facility] CT [address] [place] [address] Guido Rider, DO 3 [facility] Bl[address] [place] [address] 10/05/2024 3:00 PM MANAGER TALENT Appointment [facility] [place] [address] Guido Rider DO 3 [facility] [address] [place] [address] 10/13/2024 10:30 AM MANAGER TALENT Office Visit [facility] Multispecialty Care - [facility] 3 [facility]., [address] [place] [phone] Guido Rider, DO 3 [facility] [address] [place] [address] 01/08/2025 2:20 PM CDT Office Visit [facility] Medical [facility] Family & Internal Medicine [address] [phone] Inderjit Narayan DO [address] [place] [address] documented as of this encounter Visit Diagnoses Not on filedocumented in this encounter Care Teams Information Technology Architect Relationship Specialty Start Date End Date Inderjit Narayan DO [address] [place] [address] PCP - General 12/19/22 documented as of this encounter
--- OUTSIDE RECORDS SUMMARY | 2024-08-19 13:48 | XMS_ITS | Encounter Summary ---
Author Organization [facility] Address [address] [place] [address]. [place], [place] [address] [place] [address] Care Team Providers Care Manager Service Desk Name Role Phone Inderjit Narayan DO Primary Care Provider + Reason for Referral * Audiology Exam (Routine) - Closed Specialty Diagnoses / Procedures Referred By Georgie gallagher Referred To Contact AUDIOLOGY Diagnoses Presbycusis of both ears Procedures OFFICE/OUTPT VISIT,NEW,LEVL III OFFICE/OUTPT VISIT,NEW,LEVL IV OFFICE/OUTPT VISIT,NEW,LEVL V OFFICE/OUTPT VISIT,EST,LEVL III OFFICE/OUTPT VISIT,EST,LEVL IV OFFICE/OUTPT VISIT,EST,LEVL V Inderjit Narayan DO [address] [place] [address] Phone: tel: fax: [facility], [address] [address] Phone: tel: fax: Referral ID Status Reason Start Date Expiration Date V isits Requested Visits Authorized [id number] Closed Specialty Services 12/22/2022 01/21/2024 99 99 * Consultation (Routine) - Closed Specialty Diagnoses / Procedures Referred By Contjeanie t Referred To Contact GASTROENTEROLOGY Diagnoses Screening for malignant neoplasm of colon Procedures OFFICE/OUTPT VISIT,NEW,LEVL III OFFICE/OUTPT VISIT,NEW,LEVL IV OFFICE/OUTPT VISIT,NEW,LEVL V OFFICE/OUTPT VISIT,EST,LEVL III OFFICE/OUTPT VISIT,EST,LEVL IV OFFICE/OUTPT VISIT,EST,LEVL V Inderjit Narayan DO [address] [place] [address] Phone: tel: fax: Maicol Zamarripa MD [address] [place] [address] Phone: tel: fax: Referral ID Status Reason Start Date Expiration Date Visits Re quested Visits Authorized [id number] Closed 12/22/2022 01/23/2024 1 1 Reason for Visit * Reason Comments Physical Patient presents to est care. Hypertension Hyperlipidemia Encounter Details Date Type Department Care Team (Latest Contact Info) Description 12/22/2022 1:00 PM CDT Office Visit [facility] Medical Group Family & Internal Medicine [facility] [address] [place] [address] Inderjit Narayan DO [address] [place] [address] Physical (Patient presents to est care. ); [...] on file Legal Sex Male 10:29 AM CELL TOWER CLIMBER Gender Identity Not on file Sexual Orientation [...] male presents for Physical (Patient presents to [facility]. 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 This includes oxjx-at-shsd and yiy-uges-gc-face time I provided on the day of the encounter & excludes time spent performing separately reportable services. Inderjit Narayan DO documented in this encounter Plan of Treatment Upcoming Encounters Date Type Department Care Team (Late st Contact Info) Description 08/22/2024 8:00 AM CELL TOWER CLIMBER Laboratory Only [facility] - [address] [address] Inderjit Narayan DO [address] [place] [address] 09/08/2024 2:30 PM CELL TOWER CLIMBER Appointment [facility] [address] [place] [address] Guido Rider DO [address] [facility] [address] [place] [address] 10/05/2024 3:00 PM CELL TOWER CLIMBER Appointment [facility] [place] [address] Guido Rider DO 3 [facility] [address] [place] [address] 10/13/2024 10:30 AM CELL TOWER CLIMBER Office Visit [facility] Multispecialty Care - [facility] [address] [facility] [address] [place] [address] Guido Rider DO 3 [facility] [address] [place] [address] 01/08/2025 2:20 PM CDT Office Visit [facility] Medical Group Family & Internal Medicine [facility] [address] [place] [phone] Inderjit Narayan DO [address] [place] [address] Scheduled Referrals Name Type Priority Associated Diagnoses Orde r Schedule Ambulatory referral to Gastroenterology ( ) Referral Routine Screening for malignant neoplasm of colon Ordered: 12/22/2022 Ambulatory referral to Audiology Referral Routine Presbycusis of both ears Ordered: 12/22/2022 documented as of this encounter Results * (ABNORMAL) HEMOGLOBIN, GLYCOSYLATED (07/19/2023 10:20 AM CELL TOWER CLIMBER) Pathologist [facility] HGB A1C 6.0 4.5 - 6.2 % 07/19/2023 2:36 PM CELL TOWER CLIMBER [facility] ESTIMATED AVG GLUCOSE 126(H) 74 - 106 MG/DL 07/19/2023 2:36 PM CELL TOWER CLIMBER [facility] 07/19/2023 10:2 0 AM CELL TOWER CLIMBER Inderjit Narayan DO LABORATORY Final Re sult [facility] [address] [place] [address], [place] [phone] * PROSTATE SPECIFIC ANTIGEN,SCREENING (07/19/2023 10:20 AM CELL TOWER CLIMBER) [facility] PSA 0.42 <4.00 NG/ML 07/19/2023 3:06 PM CELL TOWER CLIMBER [facility] Comment: ASSAY PERFORMED BY [employer] IMMUNOASSAY METHODOLOGY USING SIEMENS DIMENSION REAGENT. PATIENT RESULTS DETERMINED BY ASSAYS FROM DIFFERENT MANUFACTURERS AND/OR BY DIFFERENT METHODS MAY NOT BE COMPARABLE. 07/19/2023 10:2 0 AM CELL TOWER CLIMBER Inderjit Nayeli Santosrickyjosseline DO LABORATORY Final Re sult Performing Organization Address [facility] Co de Phone Number [facility] [address] [place] [address], [place] [phone] * CK (CPK) (07/19/2023 10:20 AM CELL TOWER CLIMBER) Pathologist [facility] CPK 47 39 - 308 U/L 07/19/2023 2:38 PM CELL TOWER CLIMBER [facility] 07/19/2023 10:2 0 AM CELL TOWER CLIMBER Inderjit Nayeli Maria Doloresjosseline DO LABORATORY Final Re sult Performing Organization Address [facility] Co de Phone Number [facility] [address] [place] [address], [place] [phone] * HEPATITIS C ANTIBODY (07/19/2023 10:20 AM CELL TOWER CLIMBER) [facility] HEPATITIS C AB NON-REACTI VE NON-REACT ELDER 07/19/2023 6:22 PM CELL TOWER CLIMBER [facility] Comment: ANTIBODIES TO HCV NOT DETECTED. DOES NOT EXCLUDE THE POSSIBILITY OF EXPOSURE TO HCV. 07/19/2023 10:2 0 AM CELL TOWER CLIMBER Inderjit Nayeli Santosrickyjosseline DO LABORATORY Final Re sult Performing Organization Address City/[facility] Co de Phone Number [facility] [address] [place] [address], [place] [phone] * VITAMIN D, 25 OH (07/19/2023 10:20 AM CELL TOWER CLIMBER) Pathologist [facility] VITAMIN D 25 HYDROXY TOTAL S/P/B 64.4 30 - 100 NG/ML 07/19/2023 3:05 PM CELL TOWER CLIMBER [facility] Comment: ? DEFICIENT ??<20 ?INSUFFICIENT 20-30 ?SUFFICIENT 30-100 07/19/2023 10:2 0 AM CELL TOWER CLIMBER Inderjit Narayan DO LABORATORY Final Re sult Performing Organization Address City/[facility]/ZIP Co de Phone Number [facility] KELI, [place] [address] [place] [address], * LIPID PANEL (07/19/2023 10:20 AM CELL TOWER CLIMBER) CHOLESTEROL 151 <200 MG/DL 07/19/2023 3:05 PM [facility] TRIGLYCERIDES 105 <150 MG/DL 07/19/2023 3:05 PM [facility] HDL 64 >40 MG/DL 07/19/2023 3:05 PM [facility] LDL-C 66 <100 MG/DL 07/19/2023 3:05 PM [facility] VLDL CALCULATION 21 5 - 28 MG/DL 07/19/2023 3:05 PM [facility] CHOL/HDL RATIO 2.4 0.0 - 4.0 07/19/2023 3:05 PM [facility] LDL/HDL 1.0 0.41 - 2.13 07/19/2023 3:05 PM CELL TOWER CLIMBER [facility] NON HDL CHOLESTEROL 87 <140 MG/DL 07/19/2023 3:05 PM CELL TOWER CLIMBER [facility] 07/19/2023 10:2 0 AM CELL TOWER CLIMBER Inderjit Narayan DO LABORATORY Final Re sult Performing Organization Address City/[facility]/ZIP Co de Phone Number [facility] [place] [address] [place] [address], [place] [phone] * TSH W/REFLEX (07/19/2023 10:20 AM CELL TOWER CLIMBER) TSH 1.461 0.358 - 3.740 uIU/ML 07/19/2023 3:05 PM CELL TOWER CLIMBER [facility] 07/19/2023 10:2 0 AM CELL TOWER CLIMBER us Inderjit Narayan DO LABORATORY Final Re sult [facility] [place] [address] [facility] [place] [address], [place] [phone] * (ABNORMAL) COMPREHENSIVE METABOLIC PANEL (07/19/2023 10:20 AM CELL TOWER CLIMBER) SODIUM S/P/B 139 136 - 145 MMOL/L 07/19/2023 3:05 PM [facility] POTASSIUM S/P/B 4.8 3.5 - 5.1 MMOL/L 07/19/2023 3:05 PM [facility] CHLORIDE S/P/B 103 98 - 107 MMOL/L 07/19/2023 3:05 PM [facility] CO2 28.3 21 - 32 MMOL/L 07/19/2023 3:05 PM [facility] GLUCOSE 102(H) 70 - 99 MG/DL 07/19/2023 3:05 PM [facility] BUN 20(H) 7 - 18 MG/DL 07/19/2023 3:05 PM [facility] CREATININE S/P/B 1.06 0.70 - 1.30 MG/DL 07/19/2023 3:05 PM [facility] CALCIUM S/P/B 9.1 8.4 - 10.5 MG/DL 07/19/2023 3:05 PM [facility] [place] BILIRUBIN TOTAL S/P/B 0.7 0.2 - 1.0 MG/DL 07/19/2023 3:05 PM [facility] [place] ALKALINE PHOSPHATASE S/P/B 67 45 - 115 U/L 07/19/2023 3:05 PM [facility] [place] AST 24 15 - 37 U/L 07/19/2023 3:05 PM [facility] ALT 60 16 - 63 U/L 07/19/2023 3:05 PM [facility] [place] TOTAL PROTEIN S/P/B 6.9 6.4 - 8.2 G/DL 07/19/2023 3:05 PM [facility] [place] ALBUMIN S/P/B 3.4 3.4 - 5.0 G/DL 07/19/2023 3:05 PM [facility] [place] ANION GAP 7.7 5 - 15 MMOL/L 07/19/2023 3:05 PM [facility] Comment:REFERENCE RANGE NOT ESTABLISHED OSMOLALITY (CALC) 291 MOSM/KG 023 3:05 PM [facility] Comment:REFERENCE RANGE NOT ESTABLISHED GFR ESTIMATE 75(L) >90 ML/MIN/1. 73 M2 07/19/2023 3:05 PM [facility] GFR NOTES GFR REFERENCE S: 07/19/2023 3:05 PM [facility] Comment: THE ESTIMATED GFR IS CALCULATED USING [...] <15 ml/min/1.73 m2 07/19/2023 10:2 0 AM CELL TOWER CLIMBER Inderjit Narayan DO LABORATORY Final Re sult [facility] [place] [address] [place] [address], * (ABNORMAL) CBC W/DIFF AUTOMATED (07/19/2023 10:20 AM CELL TOWER CLIMBER) WBC 11.02(H) 4.00 - 10.80 x10'3/uL 07/19/2023 2:14 PM CELL TOWER CLIMBER [facility] RBC 5.25 4.50 - 6.10 x10'6/uL 07/19/2023 2:14 PM CELL TOWER CLIMBER [facility] HGB 15.9 13.0 - 18.0 G/DL 07/19/2023 2:14 PM CELL TOWER CLIMBER [facility] HCT 48.7 37.0 - 52.0 % 07/19/2023 2:14 PM CELL TOWER CLIMBER [facility] MCV 92.8 78.0 - 100.0 FL 07/19/2023 2:14 PM CELL TOWER CLIMBER [facility] MCH 30.3 27.0 - 31.0 PG 07/19/2023 2:14 PM CELL TOWER CLIMBER [facility] MCHC 32.6(L) 33.0 - 36.0 G/DL 07/19/2023 2:14 PM CELL TOWER CLIMBER [facility] RDW 12.8 11.5 - 14.5 % 07/19/2023 2:14 PM CELL TOWER CLIMBER [facility] PLT 221 150 - 350 x10'3/uL 07/19/2023 2:14 PM CELL TOWER CLIMBER [facility] MPV 10.0 7.4 - 10.4 FL 07/19/2023 2:14 PM CELL TOWER CLIMBER [facility] DIFFERENTIAL TYPE AUTOMATED DIFFERENTIAL 07/19/2023 2:14 PM CELL TOWER CLIMBER [facility] NEUTROPHILS % 64.8 % 07/19/2023 2:14 PM CELL TOWER CLIMBER [facility] LYMPHOCYTES % 23.1 % 07/19/2023 2:14 PM CELL TOWER CLIMBER [facility] MONOCYTES % 8.6 % 07/19/2023 2:14 PM CELL TOWER CLIMBER [facility] EOSINOPHILS % 2.3 % 07/19/2023 2:14 PM CELL TOWER CLIMBER [facility] BASOPHILS % 0.7 % 07/19/2023 2:14 PM CELL TOWER CLIMBER [facility] IMMATURE GRANS % 0.5 % 07/19/2023 2:14 PM CELL TOWER CLIMBER [facility] ABS. NEUTROPHILS 7.14 1.60 - 8.30 x10'3/uL 07/19/2023 2:14 PM CELL TOWER CLIMBER [facility] ABS. LYMPHOCYTES 2.55 0.80 - 4.70 x10'3/uL 07/19/2023 2:14 PM CELL TOWER CLIMBER [facility] ABS. MONOCYTES 0.95 0.00 - 1.50 x10'3/uL 07/19/2023 2:14 PM CELL TOWER CLIMBER [facility] ABS. EOSINOPHILS 0.25 0.00 - 0.40 x10'3/uL 07/19/2023 2:14 PM CELL TOWER CLIMBER [facility] ABS. BASOPHILS 0.08 0.00 - 0.20 x10'3/uL 07/19/2023 2:14 PM CELL TOWER CLIMBER [facility] ABS. IMMATURE GRANULOCYTES 0.05(H) 0.00 - 0.03 x10'3/uL 07/19/2023 2:14 PM CELL TOWER CLIMBER [facility] 07/19/2023 10:2 0 AM CELL TOWER CLIMBER us Inderjit Narayan DO LABORATORY Final Re sult [facility] [place] [address] [place] [address], documented in this encounter Visit Diagnoses Diagnosis [...] present documented in this encounter Care Teams Manager Service Desk Relationship Specialty Start Date End Date Inderjit Narayan DO [address] [place] [address] PCP - General 12/19/22 documented as of this encounter
--- OUTSIDE RECORDS SUMMARY | 2024-08-19 13:48 | XMS_ITS | Encounter Summary ---
Author Organization [facility] Address [address] [place] [address]. [place] [address] [place] [address] Care Team Providers Care Air Cargo Specialist Supervisor Name Role Phone Inderjit Narayan DO Primary [...] on file Legal Sex Male 10:29 AM CLERK ENTRY LEVEL Gender Identity Not on file Sexual Orientation Not on file Occupation Industry Job Start Date Job End Date Not on file Not on file Not on file Not on file documented as of this encounter Plan of Treatment Upcoming Encounters Date Type Department Care Team (Late st Contact Info) Description 08/22/2024 8:00 AM CLERK ENTRY LEVEL Laboratory Only [facility] Medical Group Family & Internal Medicine - [place] [address] [place] [address] Inderjit Narayan DO [address] [place] [address] 09/08/2024 2:30 PM CLERK ENTRY LEVEL Appointment [facility] [address] [place] [address] Guido Rider, DO [address] [facility] [address] [place] [address] 10/05/2024 3:00 PM CLERK ENTRY LEVEL Appointment [facility] Respiratory Therapy [facility] [place] [address] Guido Rider, DO [address] [facility] [address] [place] [address] 10/13/2024 10:30 AM CLERK ENTRY LEVEL Office Visit [facility] Multispec[facility]ty Care - [facility] [address] [facility] [address] [place] [address] Guido Rider, DO [address] [facility] [address] [place] [address] 01/08/2025 2:20 PM CDT Office Visit [facility] Medical [facility] Family & Internal Medicine [address] [address] Inderjit Narayan DO [address] [place] [address] documented as of this encounter Visit Diagnoses Not on filedocumented in this encounter Care Teams Air Cargo Specialist Supervisor Relationship Specialty Start Date End Date Inderjit Narayan DO [address] [place] [address] PCP - General 12/19/22 documented as of this encounter
--- OUTSIDE RECORDS SUMMARY | 2024-08-19 13:48 | XMS_ITS | Encounter Summary ---
Author Organization [facility] Address [address] [place] [address]. [place] [address] [place] [address] Care Team Providers Care Incinerator Plant General Supervisor Name Role Phone Inderjit Narayan DO Primary Care Provider + Encounter Details Date Type Department Care Team (Latest Contact Info) Description 07/07/2023 2:44 PM SEAMARK ADVANCED OPERATOR MAINTAINER - 07/07/2023 11:59 PM SEAMARK ADVANCED OPERATOR MAINTAINER Hospital Encounter [facility] [place] [address] Inderjit Narayan DO [address] [place] [address] Discharge Disposition: Home or Self Care (Routine [...] on file Legal Sex Male 10:29 AM SEAMARK ADVANCED OPERATOR MAINTAINER Gender Identity Not on file Sexual Orientation [...] st Contact Info) Description 08/22/2024 8:00 AM SEAMARK ADVANCED OPERATOR MAINTAINER Laboratory Only [facility] Family & Internal Medicine [address] [address] Inderjit Narayan DO [address] [place] [address] 09/08/2024 2:30 PM SEAMARK ADVANCED OPERATOR MAINTAINER Appointment [facility] [address] [place] [address] Guido Rider DO 3 [facility] [address] [place] [address] 10/05/2024 3:00 PM SEAMARK ADVANCED OPERATOR MAINTAINER Appointment [facility] [place] [address] Guido Rider 3 [facility] [address] [place] [address] 10/13/2024 10:30 AM SEAMARK ADVANCED OPERATOR MAINTAINER Office Visit [facility] Multispecialty Care - [facility] 3 [facility] [address] [place] [phone] Guido Rider 3 [facility] [address] [place] [address] 01/08/2025 2:20 PM CDT Office Visit [facility] Family & Internal Medicine - [address] [phone] Inderjit Narayan DO [address] [place] [address] documented as of this encounter Procedures Procedure Name Priority Date/Time Associated Diagnosis Comments TSH W/REFLEX Routine 07/07/2023 3:08 PM SEAMARK ADVANCED OPERATOR MAINTAINER Vitamin D deficiency Prediabetes Screening for prostate cancer Screening for endocrine, metabolic and immunity disorder Screening for lipid disorders Essential hypertension, benign Pure hypercholesterolemia HEMOGLOBIN, GLYCOSYLATED Routine 07/07/2023 3:08 PM SEAMARK ADVANCED OPERATOR MAINTAINER Vitamin D deficiency Prediabetes Screening for prostate cancer Screening for endocrine, metabolic and immunity disorder Screening for lipid disorders Essential hypertension, benign Pure hypercholesterolemia PROSTATE SPECIFIC ANTIGEN,SCREENING Routine 07/07/2023 3:08 PM SEAMARK ADVANCED OPERATOR MAINTAINER Vitamin D deficiency Prediabetes Screening for prostate cancer Screening for endocrine, metabolic and immunity disorder Screening for lipid disorders Essential hypertension, benign Pure hypercholesterolemia COMPREHENSIVE METABOLIC PANEL Routine 07/07/2023 3:08 PM SEAMARK ADVANCED OPERATOR MAINTAINER Vitamin D deficiency Prediabetes Screening for prostate cancer Screening for endocrine, metabolic and immunity disorder Screening for lipid disorders Essential hypertension, benign Pure hypercholesterolemia LIPID PANEL Routine 07/07/2023 3:08 PM SEAMARK ADVANCED OPERATOR MAINTAINER Vitamin D deficiency Prediabetes Screening for prostate cancer Screening for endocrine, metabolic and immunity disorder Screening for lipid disorders Essential hypertension, benign Pure hypercholesterolemia CBC W/DIFF AUTOMATED Routine 07/07/2023 3:08 PM SEAMARK ADVANCED OPERATOR MAINTAINER Vitamin D deficiency Prediabetes Screening for prostate cancer Screening for endocrine, metabolic and immunity disorder Screening for lipid disorders Essential hypertension, benign Pure hypercholesterolemia VITAMIN D, 25 OH Routine 07/07/2023 3:08 PM SEAMARK ADVANCED OPERATOR MAINTAINER Vitamin D deficiency Prediabetes Screening for prostate cancer Screening for endocrine, metabolic and immunity disorder Screening for lipid disorders Essential hypertension, benign Pure hypercholesterolemia URIC ACID BLOOD Routine 07/07/2023 3:08 PM SEAMARK ADVANCED OPERATOR MAINTAINER Vitamin D deficiency Prediabetes Screening for prostate cancer Screening for endocrine, metabolic and immunity disorder Screening for lipid disorders Essential hypertension, benign Pure hypercholesterolemia Left foot pain ALBUMIN URINE RANDOM W/CREATININE Routine 07/07/2023 2:51 PM SEAMARK ADVANCED OPERATOR MAINTAINER Vitamin D deficiency Prediabetes Screening for prostate cancer Screening for endocrine, metabolic and immunity disorder Screening for lipid disorders Essential hypertension, benign Pure hypercholesterolemia documented in this encounter Results * URIC ACID BLOOD (07/07/2023 3:08 PM SEAMARK ADVANCED OPERATOR MAINTAINER) URIC ACID 5.2 3.5 - 7.2 MG/DL 07/07/2023 4:23 PM SEAMARK ADVANCED OPERATOR MAINTAINER [facility] 07/07/2023 3:08 PM SEAMARK ADVANCED OPERATOR MAINTAINER Inderjit Narayan DO LABORATORY Final Re sult Performing Organization Address City/[facility]/ZIP Co de Phone Number [facility] [address] [place] [address], [place] [phone] * PROSTATE SPECIFIC ANTIGEN,SCREENING (07/07/2023 3:08 PM SEAMARK ADVANCED OPERATOR MAINTAINER) PSA 0.45 <4.00 NG/ML 07/07/2023 4:23 PM SEAMARK ADVANCED OPERATOR MAINTAINER [facility] Comment: Test was performed using the Siemens method. ??Results obtained with other assay methods or kits cannot be used interchangeably with results obtained by the Siemens method. 07/07/2023 3:08 PM SEAMARK ADVANCED OPERATOR MAINTAINER Inderjit Narayan DO LABORATORY Final Re sult Performing Organization Address [facility] Co de Phone Number [facility] [address] [place] [address], [place] [phone] * HEMOGLOBIN, GLYCOSYLATED (07/07/2023 3:08 PM SEAMARK ADVANCED OPERATOR MAINTAINER) HGB A1C 5.6 <5.7 % 07/07/2023 5:50 PM SEAMARK ADVANCED OPERATOR MAINTAINER [facility] Comment: ADA GUIDELINES 2010 5.7 TO 6.4% INCREASED RISK OF DIABETES > OR = 6.5% CONSISTENT WITH DIABETES ESTIMATED AVG GLUCOSE 114 mg/dL 07/07/2023 5:50 PM SEAMARK ADVANCED OPERATOR MAINTAINER [facility] 07/07/2023 3:08 PM SEAMARK ADVANCED OPERATOR MAINTAINER us Inderjit Nayeli Narayan DO LABORATORY Final Re sult [facility] [address] [place] [address], [place] [phone] * (ABNORMAL) COMPREHENSIVE METABOLIC PANEL (07/07/2023 3:08 PM SEAMARK ADVANCED OPERATOR MAINTAINER) [facility] GLUCOSE 119(H) 70 - 99 MG/DL 07/07/2023 4:23 PM SEAMARK ADVANCED OPERATOR MAINTAINER [facility] BUN 10 7 - 18 MG/DL 07/07/2023 4:23 PM SEAMARK ADVANCED OPERATOR MAINTAINER [facility] CREATININE S/P/B 0.95 0.7 - 1.3 MG/DL 07/07/2023 4:23 PM SEAMARK ADVANCED OPERATOR MAINTAINER [facility] SODIUM S/P/B 141 136 - 145 MMOL/L 07/07/2023 4:23 PM SEAMARK ADVANCED OPERATOR MAINTAINER [facility] POTASSIUM S/P/B 4.0 3.5 - 5.1 MMOL/L 07/07/2023 4:23 PM SEAMARK ADVANCED OPERATOR MAINTAINER [facility] CHLORIDE S/P/B 109(H) 100 - 108 MMOL/L 07/07/2023 4:23 PM SEAMARK ADVANCED OPERATOR MAINTAINER [facility] CO2 27.0 21 - 32 MMOL/L 07/07/2023 4:23 PM SEAMARK ADVANCED OPERATOR MAINTAINER [facility] CALCIUM S/P/B 9.2 8.5 - 10.1 MG/DL 07/07/2023 4:23 PM SEAMARK ADVANCED OPERATOR MAINTAINER [facility] BILIRUBIN TOTAL S/P/B 0.6 0.2 - 1.2 MG/DL 07/07/2023 4:23 PM [facility] Comment: THIS ASSAY IS NOT RECOMMENDED FOR PATIENTS UNDERGOING TREATMENT WITH ELTROMBOPAG DUE TO THE POTENTIAL FOR FALSELY ELEVATED RESULTS. TOTAL PROTEIN S/P/B 7.7 6.4 - 8.2 G/DL 07/07/2023 4:23 PM [facility] ALBUMIN S/P/B 3.5 3.4 - 5.0 G/DL 07/07/2023 4:23 PM [facility] AST 26 15 - 37 U/L 07/07/2023 4:23 PM [facility] ALT 42 16 - 60 U/L 07/07/2023 4:23 PM [facility] ALKALINE PHOSPHATASE S/P/B 76 50 - 136 U/L 07/07/2023 4:23 PM [facility] ANION GAP 5.0 5 - 15 MMOL/L 07/07/2023 4:23 PM [facility] BUN CREATININE RATIO 10.6 6 - 26 07/07/2023 4:23 PM [facility] A/G RATIO 0.8(L) 1.0 - 2.0 RATIO 07/07/2023 4:23 PM [facility] GFR ESTIMATE 86(L) >90 ML/MIN/1.7 3 M2 07/07/2023 4:23 PM [facility] Comment: NOTE: eGFR is not calculated for patients <18 years of age. This is an estimated GFR calculation using the new CKD EPI creatinine equation without race and so does not require a correction factor for race. This estimated GFR should not be used for calculating drug doses. 07/07/2023 3:08 PM SEAMARK ADVANCED OPERATOR MAINTAINER us Inderjit Narayan DO LABORATORY Final Re sult [facility] [address] [place] [address], [place] [phone] * VITAMIN D, 25 OH (07/07/2023 3:08 PM SEAMARK ADVANCED OPERATOR MAINTAINER) Pathologist [facility] VITAMIN D 25 HYDROXY S/P/B 37 30 - 100 NG/ML 07/07/2023 4:03 PM SEAMARK ADVANCED OPERATOR MAINTAINER [facility] Comment: ? INTERPRETATION ? DEFICIENT ??<20 ? INSUFFICIENT 20-29 ?SUFFICIENT 30-100 07/07/2023 3:08 PM SEAMARK ADVANCED OPERATOR MAINTAINER Inderjit Narayan DO LABORATORY Final Re sult Performing Organization Address [facility] de Phone Number [facility] [address] [place] [address], [place] [phone] * TSH W/REFLEX (07/07/2023 3:08 PM SEAMARK ADVANCED OPERATOR MAINTAINER) [facility] TSH 1.760 0.358 - 3.74 uIU/ML 07/07/2023 4:23 PM SEAMARK ADVANCED OPERATOR MAINTAINER [facility] Comment: HIGH DOSES OF BIOTIN MAY INTERFERE WITH THIS TEST RESULT. CORRELATION TO CLINICAL HISTORY AND PRESENTATION RECOMMENDED. FREE T4 NOT INDICATED 07/07/2023 3:08 PM SEAMARK ADVANCED OPERATOR MAINTAINER Inderjit Narayan DO LABORATORY Final Re sult Performing Organization Address [facility] de Phone Number [facility] [address] [place] [address], [place] [phone] * (ABNORMAL) LIPID PANEL (07/07/2023 3:08 PM SEAMARK ADVANCED OPERATOR MAINTAINER) [facility] CHOLESTEROL 146 <200 MG/DL 07/07/2023 4:23 PM SEAMARK ADVANCED OPERATOR MAINTAINER [facility] TRIGLYCERIDES 160(H) <150 MG/DL 07/07/2023 4:23 PM SEAMARK ADVANCED OPERATOR MAINTAINER [facility] HDL 43 >40.0 MG/DL 07/07/2023 4:23 PM [facility] LDL (CALCULATED) 71 <100 MG/DL 07/07/2023 4:23 PM [facility] NON HDL CHOLESTEROL 103 <130 MG/DL 07/07/2023 4:23 PM [facility] CHOL/HDL RATIO 3.4 0.0 - 4.5 07/07/2023 4:23 PM [facility] VLDL CALCULATION 32 5 - 55 MG/DL 07/07/2023 4:23 PM [facility] LIPID INTERPRETATION 07/07/2023 4:23 PM [facility] Comment: [facility] REPORT RECOMMENDATIONS: ?ADULT ?CHILD ??LOW RISK: ?CHOLESTEROL ? <200 ? <170 ?TRIGLYCERIDE ?<150 ?--- ?HDL ? >=60 ?--- ?LDL ? <100 ? <110 ??BORDERLINE: ?CHOLESTEROL ? 200-239 ?? 170-199 ?TRIGLYCERIDE ?150-199 ? --- ?HDL ?40-59 ?--- ?LDL ? 100-159 ?? 110-129 ??HIGH RISK: ?CHOLESTEROL ? >=240 ?>=200 ?TRIGLYCERIDE ?>=200 ? --- ?HDL ?<40 ?--- ?LDL ? >=160 ?>=130 07/07/2023 3:08 PM SEAMARK ADVANCED OPERATOR MAINTAINER us Inderjit Narayan DO LABORATORY Final Re sult [facility] [address] [place] [address], * (ABNORMAL) CBC W/DIFF AUTOMATED (07/07/2023 3:08 PM SEAMARK ADVANCED OPERATOR MAINTAINER) WBC 7.9 4.5 - 11.0 x10'3/uL 07/07/2023 3:35 PM SEAMARK ADVANCED OPERATOR MAINTAINER [facility] RBC 4.84 4.70 - 6.10 x10'6/uL 07/07/2023 3:35 PM SEAMARK ADVANCED OPERATOR MAINTAINER [facility] HGB 14.7 14.0 - 18.0 G/DL 07/07/2023 3:35 PM SEAMARK ADVANCED OPERATOR MAINTAINER [facility] HCT 45.4 43.0 - 54.0 % 07/07/2023 3:35 PM SEAMARK ADVANCED OPERATOR MAINTAINER [facility] MCV 93.8 80.0 - 94.0 FL 07/07/2023 3:35 PM SEAMARK ADVANCED OPERATOR MAINTAINER [facility] MCH 30.4 27.0 - 31.0 PG 07/07/2023 3:35 PM SEAMARK ADVANCED OPERATOR MAINTAINER [facility] MCHC 32.4 32.0 - 36.0 G/DL 07/07/2023 3:35 PM SEAMARK ADVANCED OPERATOR MAINTAINER [facility] RDW 12.5 11.5 - 14.5 % 07/07/2023 3:35 PM SEAMARK ADVANCED OPERATOR MAINTAINER [facility] PLT 229 130 - 400 x10'3/uL 07/07/2023 3:35 PM [facility] MPV 9.8 9.3 - 12.2 FL 07/07/2023 3:35 PM [facility] DIFFERENTIAL TYPE AUTOMATED DIFFERENTIAL 07/07/2023 3:35 PM [facility] NEUTROPHILS % 49.5 % 07/07/2023 3:35 PM [facility] LYMPHOCYTES % 31.1 % 07/07/2023 3:35 PM [facility] MONOCYTES % 12.8 % 07/07/2023 3:35 PM [facility] EOSINOPHILS 4.9 % 07/07/2023 3:35 PM [facility] BASOPHILS 1.3 % 07/07/2023 3:35 PM [facility] IMMATURE GRANS % 0.4 % 07/07/20 3:35 PM [facility] ABS. NEUTROPHILS TOTAL 3.91 1.80 - 7.70 x10'3/uL 07/07/2023 3:35 PM [facility] ABS. LYMPHOCYTES 2.46 1.00 - 4.80 x10'3/uL 07/07/2023 3:35 PM [facility] ABS. MONOCYTES 1.01(H) 0.30 - 0.82 x10'3/uL 07/07/2023 3:35 PM [facility] ABS. EOSINOPHILS 0.39 0.04 - 0.54 x10'3/uL 07/07/2023 3:35 PM [facility] ABS. BASOPHILS 0.10(H) 0.01 - 0.08 x10'3/uL 07/07/2023 3:35 PM SEAMARK ADVANCED OPERATOR MAINTAINER [facility] ABS. IMMATURE GRANULOCYTES 0.03 0.00 - 0.49 x10'3/uL 07/07/2023 3:35 PM SEAMARK ADVANCED OPERATOR MAINTAINER [facility] 07/07/2023 3:08 PM SEAMARK ADVANCED OPERATOR MAINTAINER Inderjit Narayan DO LABORATORY Final Re sult [facility] 3 [place] [address], [place] [phone] * ALBUMIN URINE RANDOM (07/07/2023 2:51 PM SEAMARK ADVANCED OPERATOR MAINTAINER) CREATININE (U) 87.6 39 - 259 MG/DL 07/08/2023 3:08 AM SEAMARK ADVANCED OPERATOR MAINTAINER [facility] MICROALBUMIN (U) 0.8 <2.0 mg/dL 07/08/20 3:08 AM SEAMARK ADVANCED OPERATOR MAINTAINER [facility] ALBUMIN/CREAT RATIO 9.0 <30 MG/G 07/08/2023 3:08 AM SEAMARK ADVANCED OPERATOR MAINTAINER [facility] URINE SPECIMEN / Unknown 07/07/2023 2:51 PM SEAMARK ADVANCED OPERATOR MAINTAINER Inderjit Narayan DO URINE ORDERABLES Final R esult [facility] [address] [place] [address], [place] [phone] documented in this encounter Visit Diagnoses Diagnosis Vitamin D deficiency Unspecified vitamin D deficiency Prediabetes Other abnormal glucose Screening for prostate cancer Special screening for malignant neoplasm of prostate Screening for endocrine, metabolic and immunity disorder Screening for lipid disorders Essential hypertension, benign Pure hypercholesterolemia Left foot pain Pain in limb documented in this encounter Care Teams Incinerator Plant General Supervisor Relationship Specialty Start Date End Date Inderjit Narayan DO [address] [place] [address] PCP - General 12/19/22 documented as of this encounter
--- OUTSIDE RECORDS SUMMARY | 2024-08-19 13:48 | XMS_ITS | Encounter Summary ---
Author Organization [facility] Address [address] [place] [address]. [place] [address] [place] [address] Care Team Providers Care Fruit Preserver Name Role Phone Inderjit Narayan DO Primary [...] on file Legal Sex Male 10:29 AM CIVIL ENGINEERING PROJECT MANAGER Gender Identity Not on file Sexual Orientation Not on file Occupation Industry Job Start Date Job End Date Not on file Not on file Not on file Not on file documented as of this encounter Plan of Treatment Upcoming Encounters Date Type Department Care Team (Late st Contact Info) Description 08/22/2024 8:00 AM CIVIL ENGINEERING PROJECT MANAGER Laboratory Only [facility] Family & Internal Medicine - [address] [phone] Inderjit Narayan DO [facility] [place] [address] 09/08/2024 2:30 PM CIVIL ENGINEERING PROJECT MANAGER Appointment [facility] [address] [place] [address] Guido Rider, DO 3 [facility] [address] [place] [address] 10/05/2024 3:00 PM CIVIL ENGINEERING PROJECT MANAGER Appointment [facility] [place] [address] Guido Rider DO 3 [facility] [address] [place] [address] 10/13/2024 10:30 AM CIVIL ENGINEERING PROJECT MANAGER Office Visit [facility] Multispecialty Care - [facility] 3 [facility] [address] [place] [phone] Guido Rider, DO 3 [facility] [address] [place] [address] 01/08/2025 2:20 PM CDT Office Visit [facility] Medical [facility] Family & Internal Medicine [address] [phone] Inderjit Narayan DO [address] [place] [address] documented as of this encounter Visit Diagnoses Not on filedocumented in this encounter Care Teams Fruit Preserver Relationship Specialty Start Date End Date Inderjit Narayan DO [address] [place] [address] PCP - General 12/19/22 documented as of this encounter
--- OUTSIDE RECORDS SUMMARY | 2024-08-19 13:48 | XMS_ITS | Encounter Summary ---
Author Organization [facility] Address [address] [place] [address]. [place] [address] [place] [address] Care Team Providers Care Engineer Conductor Name Role Phone Inderjit Narayan DO Primary [...] on file Legal Sex Male 10:29 AM TERMINAL OPERATIONS SUPERVISOR Gender Identity Not on file Sexual Orientation Not on file Occupation Industry Job Start Date Job End Date Not on file Not on file Not on file Not on file documented as of this encounter Plan of Treatment Upcoming Encounters Date Type Department Care Team (Late st Contact Info) Description 08/22/2024 8:00 AM TERMINAL OPERATIONS SUPERVISOR Laboratory Only [facility] Family & Internal Medicine - [place] [address] [place] [address] Inderjit Narayan DO [address] [place] [address] 09/08/2024 2:30 PM TERMINAL OPERATIONS SUPERVISOR Appointment [facility] [address] [place] [address] Guido Rider, DO 3 [facility] [place] [address] 10/05/2024 3:00 PM TERMINAL OPERATIONS SUPERVISOR Appointment [facility] Respiratory Therapy [address] [facility] [facility] [address] Guido Rider, DO 3 [facility] [place] [address] 10/13/2024 10:30 AM TERMINAL OPERATIONS SUPERVISOR Office Visit [facility] Multispecialty Care - [facility] 3 [facility] [address] [place] [address] Guido Rider, DO 3 [facility] [place] [address] 01/08/2025 2:20 PM CDT Office Visit [facility] Medical [facility] Family & Internal Medicine [address] [phone] Inderjit Narayan DO [address] [place] [address] documented as of this encounter Visit Diagnoses Not on filedocumented in this encounter Care Teams Engineer Conductor Relationship Specialty Start Date End Date Inderjit Narayan DO [address] [place] [address] PCP - General 12/19/22 documented as of this encounter
--- OUTSIDE RECORDS SUMMARY | 2024-08-19 13:48 | XMS_ITS | Encounter Summary ---
Author Organization [facility] Address [address] [place] [address]. [place] [address] [place] [address] Care Team Providers Care Screen Print Operator Name Role Phone Inderjit Narayan DO Primary Care Provider + Reason for Visit * Reason Onset Date Comments Record Request 07/14/2023 Encounter Details Date Type Department Care Team (Late st Contact Info) Description 07/14/2023 Telephone [facility] Family & Internal Medicine [facility] [address] [place] [address] Inderjit Narayan DO [address] [place] [address] Record Request Social History Tobacco [...] on file Legal Sex Male 10:29 AM PALLET STONE INSERTER Gender Identity Not on file Sexual Orientation Not on file Occupation Industry Job Start Date Job End Date Not on file Not on file Not on file Not on file documented as of this encounter Progress Notes * Joann Corea MA - 07/14/2023 3:23 PM CST Received and sent to PCP ET STONE INSERTER * Joann Corea MA - 07/14/2023 8:25 AM CST I have faxed [facility] for ER records from 06/18/23 ET STONE INSERTER documented in this encounter Plan of Treatment Upcoming Encounters Date Type Department Care Team (Late st Contact Info) Description 08/22/2024 8:00 AM PALLET STONE INSERTER Laboratory Only [facility] Family & Internal Medicine - [address] [phone] Inderjit Narayan, [address] [place] [address] 09/08/2024 2:30 PM PALLET STONE INSERTER Appointment [facility] [address] [place] [address] Guido Rider DO 3 [facility] [address] [place] [address] 10/05/2024 3:00 PM PALLET STONE INSERTER Appointment [facility] Respiratory [place] [address] Guido Rider DO 3 [facility] [address] [place] [address] 10/13/2024 10:30 AM PALLET STONE INSERTER Office Visit [facility] Multispecialty Care - [facility] 3 [facility]., [address] [place] [phone] Guido Rider DO 3 [facility] [address] [place] [address] 01/08/2025 2:20 PM CDT Office Visit [facility] Medical Group Family & Internal Medicine - [address] [phone] Inderjit Narayan DO [address] [place] [address] documented as of this encounter Visit Diagnoses Not on filedocumented in this encounter Care Teams Screen Print Operator Relationship Specialty Start Date End Date Inderjit Narayan DO [address] [place] [phone] PCP - General 12/19/22 documented as of this encounter
--- OUTSIDE RECORDS SUMMARY | 2024-08-19 13:48 | XMS_ITS | Encounter Summary ---
Author Organization [facility] Address [facility]. [place], [place] [address] [place] [address] Care Team Providers Care Passenger Barge Master Name Role Phone Inderjit Narayan DO Primary Care Provider + Reason for Visit * Reason Comments Foot Pain The right foot has b een painful, red, and swollen for 1 month. The patient states he went to [facility] for the pain. He states they ruled out a DVT and fractures. The patient denies injury Encounter Details Date Type Department Care Team (Late st Contact Info) Description 07/07/2023 8:40 AM DELIVERY REPRESENTATIVE Office Visit [facility] Family & Internal Medicine - [address] [address] Indejrit Narayan DO [address] [place], [place] [id number] Foot Pain (The right foot has been painful, red, and swollen for 1 month. The patient states he went to [facility] for the pain. He states they [...] on file Legal Sex Male 10:29 AM DELIVERY REPRESENTATIVE Gender Identity Not on file Sexual Orientation Not on file Occupation Industry Job Start Date Job End Date Not on file Not on file Not on file Not on file documented as of this encounter Last Filed Vital Signs Vital Sign Reading Time Taken Comments Blood Pressure 114/62 07/07/2023 8:43 AM DELIVERY REPRESENTATIVE Pulse 63 07/07/2023 8:43 AM DELIVERY REPRESENTATIVE Temperature 36.8 ??C (98.3 ??F) 07/07/2023 8:43 AM CS T Respiratory Rate 16 07/07/2023 8:43 AM DELIVERY REPRESENTATIVE Oxygen Saturation 98% 07/07/2023 8:43 AM DELIVERY REPRESENTATIVE Inhaled Oxygen Concentration - - Weight 95.3 kg (210 lb) 07/07/2023 8:43 AM DELIVERY REPRESENTATIVE Height 180.3 cm (5' 11 ) 07/07/2023 8:43 AM DELIVERY REPRESENTATIVE Body Mass Index 29.29 07/07/2023 8:43 AM DELIVERY REPRESENTATIVE documented in this encounter Progress Notes * Inderjit Narayan, DO - 07/07/2023 8:40 AM CST Images from the original note were not included. GENERAL OFFICE VISIT Encounter Date: 07/07/2023 Chief Complaint: 73-year-old male presents for Foot Pain (The right foot has been painful, red, and swollen for 1 month. The patient states he went to [facility] for the pain. He states they ruled out a DVT and fractures. The patient denies injury ) HPI: Pt presents for right foot pain. It has been present for about 1 month. It is not as red and swollen as it is at the end of the day. No known injury or inciting event. 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 Patient verbalized understanding. Inderjit Narayan DO VERY REPRESENTATIVE documented in this encounter Plan of Treatment Upcoming Encounters Date Type Department Care Team (Late st Contact Info) Description 08/22/2024 8:00 AM DELIVERY REPRESENTATIVE Laboratory Only [facility] Family & Internal Medicine [address] [address] Inderjit Narayan DO [address] [place] [address] 09/08/2024 2:30 PM DELIVERY REPRESENTATIVE Appointment [facility] [address] [place] [address] Gudio Rider DO 3 [facility] [address] [place] [address] 10/05/2024 3:00 PM DELIVERY REPRESENTATIVE Appointment [facility] [place] [address] Guido Rider DO 3 [facility] [address] [place] [address] 10/13/2024 10:30 AM DELIVERY REPRESENTATIVE Office Visit [facility] - [facility] [address] [facility] [address] [place] [address] RiderGuido razo [address] [facility] [address] [place] [address] 01/08/2025 2:20 PM CDT Office Visit [facility] Medical [facility] Family & Internal Medicine [address] [address] [place] [address] [place] [address] documented as of this encounter Results * URIC ACID BLOOD (07/07/2023 3:08 PM DELIVERY REPRESENTATIVE) URIC ACID 5.2 3.5 - 7.2 MG/DL 07/07/2023 4:23 PM DELIVERY REPRESENTATIVE [facility] 07/07/2023 3:08 PM DELIVERY REPRESENTATIVE Inderjit Narayan DO LABORATORY Final Re sult [facility] [address] [place] [address], * PROSTATE SPECIFIC ANTIGEN,SCREENING (07/07/2023 3:08 PM DELIVERY REPRESENTATIVE) PSA 0.45 <4.00 NG/ML 07/07/2023 4:23 PM DELIVERY REPRESENTATIVE [facility] Comment: Test was performed using the Siemens method. ??Results obtained with other assay methods or kits cannot be used interchangeably with results obtained by the Siemens method. 07/07/2023 3:08 PM DELIVERY REPRESENTATIVE Inderjit Narayan DO LABORATORY Final Re sult [facility] [address] [place] [address], [place] [phone] * HEMOGLOBIN, GLYCOSYLATED (07/07/2023 3:08 PM DELIVERY REPRESENTATIVE) HGB A1C 5.6 <5.7 % 07/07/2023 5:50 PM DELIVERY REPRESENTATIVE [facility] Comment: ADA GUIDELINES 2010 5.7 TO 6.4% INCREASED RISK OF DIABETES > OR = 6.5% CONSISTENT WITH DIABETES ESTIMATED AVG GLUCOSE 114 mg/dL 07/07/2023 5:50 PM DELIVERY REPRESENTATIVE [facility] 07/07/2023 3:08 PM DELIVERY REPRESENTATIVE Inderjit Narayan DO LABORATORY Final Re sult [facility] [address] [place] [address], [place] [phone] * (ABNORMAL) COMPREHENSIVE METABOLIC PANEL (07/07/2023 3:08 PM DELIVERY REPRESENTATIVE) GLUCOSE 119(H) 70 - 99 MG/DL 07/07/2023 4:23 PM DELIVERY REPRESENTATIVE [facility] BUN 10 7 - 18 MG/DL 07/07/2023 4:23 PM DELIVERY REPRESENTATIVE [facility] CREATININE S/P/B 0.95 0.7 - 1.3 MG/DL 07/07/2023 4:23 PM DELIVERY REPRESENTATIVE [facility] SODIUM S/P/B 141 136 - 145 MMOL/L 07/07/2023 4:23 PM DELIVERY REPRESENTATIVE [facility] POTASSIUM S/P/B 4.0 3.5 - 5.1 MMOL/L 07/07/2023 4:23 PM [facility] CHLORIDE S/P/B 109(H) 100 - 108 MMOL/L 07/07/2023 4:23 PM [facility] CO2 27.0 21 - 32 MMOL/L 07/07/2023 4:23 PM [facility] CALCIUM S/P/B 9.2 8.5 - 10.1 MG/DL 07/07/2023 4:23 PM [facility] BILIRUBIN TOTAL S/P/B 0.6 0.2 - 1.2 MG/DL 07/07/2023 4:23 PM [facility] Comment: THIS ASSAY IS NOT RECOMMENDED FOR PATIENTS UNDERGOING TREATMENT WITH ELTROMBOPAG DUE TO THE POTENTIAL FOR FALSELY ELEVATED RESULTS. TOTAL PROTEIN S/P/B 7.7 6.4 - 8.2 G/DL 07/07/2023 4:23 PM [facility] ALBUMIN S/P/B 3.5 3.4 - 5.0 G/DL 07/07/2023 4:23 PM [facility] AST 26 15 - 37 U/L 07/07/2023 4:23 PM [facility] ALT 42 16 - 60 U/L 07/07/2023 4:23 PM [facility] ALKALINE PHOSPHATASE S/P/B 76 50 - 136 U/L 07/07/2023 4:23 PM [facility] ANION GAP 5.0 5 - 15 MMOL/L 07/07/2023 4:23 PM [facility] BUN CREATININE RATIO 10.6 6 - 26 07/07/2023 4:23 PM [facility] A/G RATIO 0.8(L) 1.0 - 2.0 RATIO 07/07/2023 4:23 PM [facility] GFR ESTIMATE 86(L) >90 ML/MIN/1.7 3 M2 07/07/2023 4:23 PM DELIVERY REPRESENTATIVE [facility] Comment: NOTE: eGFR is not calculated for patients <18 years of age. This is an estimated GFR calculation using the new CKD EPI creatinine equation without race and so does not require a correction factor for race. This estimated GFR should not be used for calculating drug doses. 07/07/2023 3:08 PM DELIVERY REPRESENTATIVE Inderjit Narayan DO LABORATORY Final Re sult Performing Organization Address [facility] de Phone Number [facility] [address] [place] [address], * VITAMIN D, 25 [place] (07/07/2023 3:08 PM DELIVERY REPRESENTATIVE) [facility] VITAMIN D 25 HYDROXY S/P/B 37 30 - 100 NG/ML 07/07/2023 4:03 PM DELIVERY REPRESENTATIVE [facility] Comment: ? INTERPRETATION ? DEFICIENT ??<20 ? INSUFFICIENT 20-29 ?SUFFICIENT 30-100 07/07/2023 3:08 PM DELIVERY REPRESENTATIVE Inderjit Narayan DO LABORATORY Final Re sult Performing Organization Address [facility] Co de Phone Number [facility] [address] [place] [address], [place] [phone] * TSH W/REFLEX (07/07/2023 3:08 PM DELIVERY REPRESENTATIVE) Pathologist [facility] TSH 1.760 0.358 - 3.74 uIU/ML 07/07/2023 4:23 PM DELIVERY REPRESENTATIVE [facility] Comment: HIGH DOSES OF BIOTIN MAY INTERFERE WITH THIS TEST RESULT. CORRELATION TO CLINICAL HISTORY AND PRESENTATION RECOMMENDED. FREE T4 NOT INDICATED 07/07/2023 3:08 PM DELIVERY REPRESENTATIVE Inderjit Nayeli Narayan DO LABORATORY Final Re sult [facility] [address] [place] [address], * (ABNORMAL) LIPID PANEL (07/07/2023 3:08 PM DELIVERY REPRESENTATIVE) CHOLESTEROL 146 <200 MG/DL 07/07/2023 4:23 PM [facility] TRIGLYCERIDES 160(H) <150 MG/DL 07/07/2023 4:23 PM [facility] HDL 43 >40.0 MG/DL 07/07/2023 4:23 PM DELIVERY REPRESENTATIVE [facility] LDL (CALCULATED) 71 <100 MG/DL 07/07/2023 4:23 PM DELIVERY REPRESENTATIVE [facility] NON HDL CHOLESTEROL 103 <130 MG/DL 07/07/2023 4:23 PM [facility] CHOL/HDL RATIO 3.4 0.0 - 4.5 07/07/2023 4:23 PM [facility] VLDL CALCULATION 32 5 - 55 MG/DL 07/07/2023 4:23 PM [facility] LIPID INTERPRETATION 07/07/2023 4:23 PM [facility] Comment: NIH CONCENSUS REPORT RECOMMENDATIONS: ?ADULT [...] ?LDL ? >=160 ?>=130 07/07/2023 3:08 PM DELIVERY REPRESENTATIVE us Inderjit Narayan DO LABORATORY Final Re sult [facility] [address] [place] [address], * (ABNORMAL) CBC W/DIFF AUTOMATED (07/07/2023 3:08 PM DELIVERY REPRESENTATIVE) WBC 7.9 4.5 - 11.0 x10'3/uL 07/07/2023 3:35 PM [facility] RBC 4.84 4.70 - 6.10 x10'6/uL 07/07/2023 3:35 PM [facility] HGB 14.7 14.0 - 18.0 G/DL 07/07/2023 3:35 PM [facility] HCT 45.4 43.0 - 54.0 % 07/07/2023 3:35 PM [facility] MCV 93.8 80.0 - 94.0 FL 07/07/2023 3:35 PM [facility] MCH 30.4 27.0 - 31.0 PG 07/07/2023 3:35 PM [facility] MCHC 32.4 32.0 - 36.0 G/DL 07/07/2023 3:35 PM [facility] RDW 12.5 11.5 - 14.5 % 07/07/2023 3:35 PM [facility] PLT 229 130 - 400 x10'3/uL 07/07/2023 3:35 PM [facility] MPV 9.8 9.3 - 12.2 FL 07/07/2023 3:35 PM [facility] DIFFERENTIAL TYPE AUTOMATED DIFFERENTIAL 07/07/2023 3:35 PM [facility] NEUTROPHILS % 49.5 % 07/07/2023 3:35 PM [facility] LYMPHOCYTES % 31.1 % 07/07/2023 3:35 PM [facility] MONOCYTES % 12.8 % 07/07/2023 3:35 PM [facility] EOSINOPHILS 4.9 % 07/07/2023 3:35 PM [facility] BASOPHILS 1.3 % 07/07/2023 3:35 PM DELIVERY REPRESENTATIVE [facility] IMMATURE GRANS % 0.4 % 07/07/20 3:35 PM DELIVERY REPRESENTATIVE [facility] ABS. NEUTROPHILS TOTAL 3.91 1.80 - 7.70 x10'3/uL 07/07/2023 3:35 PM DELIVERY REPRESENTATIVE [facility] ABS. LYMPHOCYTES 2.46 1.00 - 4.80 x10'3/uL 07/07/2023 3:35 PM DELIVERY REPRESENTATIVE [facility] ABS. MONOCYTES 1.01(H) 0.30 - 0.82 x10'3/uL 07/07/2023 3:35 PM DELIVERY REPRESENTATIVE [facility] ABS. EOSINOPHILS 0.39 0.04 - 0.54 x10'3/uL 07/07/2023 3:35 PM DELIVERY REPRESENTATIVE [facility] ABS. BASOPHILS 0.10(H) 0.01 - 0.08 x10'3/uL 07/07/2023 3:35 PM DELIVERY REPRESENTATIVE [facility] ABS. IMMATURE GRANULOCYTES 0.03 0.00 - 0.49 x10'3/uL 07/07/2023 3:35 PM [facility] 07/07/2023 3:08 PM DELIVERY REPRESENTATIVE us Inderjit Narayan DO LABORATORY Final Re sult [facility] [address] [place] [address], [place] [phone] * ALBUMIN URINE RANDOM (07/07/2023 2:51 PM DELIVERY REPRESENTATIVE) CREATININE (U) 87.6 39 - 259 MG/DL 07/08/2023 3:08 AM DELIVERY REPRESENTATIVE [facility] MICROALBUMIN (U) 0.8 <2.0 mg/dL 07/08/20 3:08 AM DELIVERY REPRESENTATIVE [facility] ALBUMIN/CREAT RATIO 9.0 <30 MG/G 07/08/2023 3:08 AM DELIVERY REPRESENTATIVE [facility] URINE SPECIMEN / Unknown 07/07/2023 2:51 PM DELIVERY REPRESENTATIVE Inderjit Narayan DO URINE ORDERABLES Final R esult [facility] [address] [place] [address], documented in this encounter Visit Diagnoses Diagnosis [...] hypercholesterolemia documented in this encounter Care Teams Passenger Barge Master Relationship Specialty Start Date End Date Inderjit Narayan DO [address] [place] [address] PCP - General 12/19/22 documented as of this encounter
--- OUTSIDE RECORDS SUMMARY | 2024-08-19 13:51 | XMS_ITS | Clinical Summary ---
Author Organization [facility] Address [address] [place] [address] Care Team Providers Care Box Office Attendant Name Role Phone Unavailable Primary Care [...]
--- OUTSIDE RECORDS SUMMARY | 2024-08-19 13:51 | XMS_ITS | Clinical Summary ---
Author Organization [employer] [facility] Address [address] [place] [address] Phone Care Team Providers Care Louver Mortiser Operator Name Role Phone Unavailable Primary Care [...] by mouth. Active sod bicarb-sod chlor-neti pot ([place] Saline Nasal Neti Rinse) packet with rinse [...] Active Fluticasone Furoate (FLONASE SENSIMIST) 27.5 mcg/actuation [place], Suspension Administer 2 Sprays in each nostril [...] , 10/14/2017 Medical Devices Implanted Type Area Target Protection Specialist Device Identifier Shelf Expiration Date Model / Serial / Lot [place] Speedbridge W/ Biocmpst Swivelck [id number] - [id number] Implanted:Qty: 1 on 09/30/2018 by Nehemiah Castellano MD at [facility] [place] Right: Shoulder [employer] 08/08/2020 [id number] / / [id number] Procedures Procedure Name Priority Date/Time Associated Diagnosis Comments COLONOSCOPY REPORT 04/09/2023 10 :14 AM CDT OCCULT BLOOD IMMUNOASSAY, COLORECTAL SCREEN Routine 04/26/2019 9:19 PM CDT Screening for colon cancer from Last 3 Months or Most Recently Relevant to Health Maintenance Results * COLONOSCOPY REPORT (04/09/2023 10:14 AM CDT) Narrative Procedure Note Modesta Wise DO - 04/09/2023 10:14 AM CDT [facility] Patient Name: Brendon Aldana Procedure Date: [...] Addenda: 0 Procedure Date: 04/09/2023 9:32:32 AM [address] [address] Modesta Wise DO GI PROCEDURE ORDERA BLES * (ABNORMAL) OCCULT BLOOD IMMUNOASSAY, COLORECTAL SCREEN (04/26/2019 9:19 PM CDT) OCCULT BLOOD, STOOL Positive(A ) Negative 04/27/2019 11:28 PM CDT [facility] [employer] [facility] Stool STOOL SPECIMEN / Unknown Collection / Unknown 04/26/2019 9:19 PM CDT 04/27/2019 9:19 PM CDT Ciro Yeni Fernandez DO BODY FLUIDS AND STOO LS [facility] [employer] [facility] CLIA# [id number] [address] [place] [address] from Last 3 Months or Most Recently Relevant to Health Maintenance Advance Directives For more information, please contact: [phone] * Full Code (Latest Code Status on [...]
--- OUTSIDE RECORDS SUMMARY | 2024-08-19 13:51 | XMS_ITS | Encounter Summary ---
Author Organization [facility] Address [address] [place] [address] Care Team Providers Care Chief Compliance Officer Name Role Phone Unavailable Primary Care Provider Unavailabl e Encounter Details Date Type Department Care Team (Late st Contact Info) Description 06/13/2021 9:00 AM CDT Immunization [facility] Immunization [address] [place] [address] Need for vaccination (Primary Dx) Social History [...]
--- OUTSIDE RECORDS SUMMARY | 2024-08-19 13:51 | XMS_ITS | Encounter Summary ---
Author Organization [facility] Address [address] [place] [address] Care Team Providers Care Stamp Pad Finisher Name Role Phone Unavailable Primary Care Provider [...]
--- OUTSIDE RECORDS SUMMARY | 2024-08-19 13:51 | XMS_ITS | Encounter Summary ---
Author Organization [facility] Address [address] [place] [address] Care Team Providers Care Human Resources Operations Coordinator Name Role Phone Unavailable Primary Care [...]
--- OUTSIDE RECORDS SUMMARY | 2024-08-19 13:51 | XMS_ITS | Encounter Summary ---
Author Organization [facility] Address [address] [place] [address] Care Team Providers Care Compressor Mechanic Name Role Phone Unavailable Primary Care [...]
--- OUTSIDE RECORDS SUMMARY | 2024-08-19 13:51 | XMS_ITS | Encounter Summary ---
Author Organization [facility] Address [address] [place] [address] Care Team Providers Care Spring Maker Name Role Phone Unavailable Primary Care [...]
--- OUTSIDE RECORDS SUMMARY | 2024-08-19 13:51 | XMS_ITS | Encounter Summary ---
Author Organization [facility] Address [address] [place] [address] Care Team Providers Care Wound Care Coordinator Name Role Phone Unavailable Primary Care [...]
--- OUTSIDE RECORDS SUMMARY | 2024-08-19 13:51 | XMS_ITS | Encounter Summary ---
Author Organization [facility] Address [address] [place] [address] Care Team Providers Care Supplier Quality Engineering Manager Name Role Phone Unavailable Primary Care [...]
--- OUTSIDE RECORDS SUMMARY | 2024-08-19 13:52 | XMS_ITS | Encounter Summary ---
Author Organization [facility] Address [address] [place] [address] Care Team Providers Care Diabetes Physician Name Role Phone Inderjit Narayan DO Primary [...] on filedocumented in this encounter Care Teams Diabetes Physician Relationship Specialty Start Date End Date Inderjit Narayan DO [address] [place] [phone] PCP - General Family Practice 04/09/23 08/29/23 documented as of this encounter
--- OUTSIDE RECORDS SUMMARY | 2024-08-19 13:52 | XMS_ITS | Encounter Summary ---
Author Organization [facility] Address [address] [place] [address] Care Team Providers Care College Associate Name Role Phone Unavailable Primary Care Provider Unavailabl e Reason for Visit * Reason Onset Date Comments Medication Refill 10/26/2022 Encounter Details Date Type Department Care Team (Late st Contact Info) Description 10/26/2022 Refill [facility] Family Medicine - [address] [place] [address] Ciro Fernandez, DO [address] [place] [address] Social History Tobacco Use Types [...]
--- OUTSIDE RECORDS SUMMARY | 2024-08-19 13:52 | XMS_ITS | Encounter Summary ---
Author Organization [facility] Address [address] [place] [address] Care Team Providers Care Transitional Care Manager Name Role Phone Unavailable Primary Care [...]
--- OUTSIDE RECORDS SUMMARY | 2024-08-19 13:52 | XMS_ITS | Encounter Summary ---
Author Organization [facility] Address [address] [place] [address] Care Team Providers Care Skin Former Name Role Phone Unavailable Primary Care Provider Unavailabl e Reason for Visit * Reason Comments Upper Respiratory Symptoms Encounter Details Date Type Department Care Team (Late st Contact Info) Description 07/27/2022 1:00 PM SONAR WATCHSTANDER Video Visit [facility] Medicine - [facility] [address] [facility] [address] [place] [address] Board, SHIRLEY Martinez [address] [facility] [address] [place] [address] Acute sinusitis with symptoms greater [...] Coronavirus/COVID-19? No / Unsure 07/21/2022 12:41 PM SONAR WATCHSTANDER documented as of this encounter Last Filed Vital Signs Vital Sign Reading Time Taken Comments Blood Pressure - - Pulse - - Temperature - - Respiratory Rate - - Oxygen Saturation - - Inhaled Oxygen Concentration - - Weight 89.8 kg (198 lb) 07/27/2022 12:48 PM SONAR WATCHSTANDER Height 180.3 cm (5' 11 ) 07/27/2022 12:48 PM SONAR WATCHSTANDER Body Mass Index 27.62 07/27/2022 12:48 PM SONAR WATCHSTANDER documented in this encounter Patient Instructions * Attachments The following attachments cannot be sent through Care Everywhere. * Sinus Rinse (Malawian) * Chronic sinusitis (Malawian) documented in this encounter Progress Notes * [...] 10 days - sod bicarb-sod chlor-neti pot ([place] Saline Nasal Neti Rinse) packet with rinse [...] worsen or fail to improve. SHIRLEY Fishman R WATCHSTANDER documented in this encounter Miscellaneous Notes * Patient Instructions - Mariam Recinos FNP - 07/27/2022 1:29 PM SONAR WATCHSTANDER Physical exams can help you stay healthy. [...] water daily can alsohelp increase metabolism and stretcher leveler operator helper weight loss. Follow a low [...] You can also find resources by calling [employer]11[employer] or visit www.smokefree.gov. Always wear sunscreen on [...] synthesis. I have purchased several pairs on [employer] without magnification (5 pairs for less than $15), but many options areavailable and they are most definitely affordable. If you already use prescription lenses, this canbe incorporated into a new presciption (even contacts) or you can buy strange looking stick-on filters from [employer] to impress all of your admirers. MIGRAINE [...] improve energy and support your immune system. Nichols 3 Fatty Acids. DHA and EPA combination 1000 mg daily. There are many forms to choose from including fish oil and plant-based products. Including this in your daily routine can improve overall brain function, cognition and mood. Significant improvements in executive function and risk reductionfor dementia are additional benefits as well as supporting your joints. Turmeric 7272-1004 mg daily. This is an anti-inflammatory and [...] drugs automatically lower CoQ10 in the body. Y-gqsdjj-N-cystein (NAC) 2.4 to 3.6 grams per day. [...] product brands for purchasing supplements: NOW products, Re[employer] of [employer], any brand sold at [employer] (c) Recommended PODCASTS [facility] with Salina Escamilla, Ph.D. A Slight Change of Plans with Denisha Cohn, Ph.D. Unlocking Us with Yara Burnett, Ph. D [facility] with Jo Ann Rees COVID VACCINE - To schedule your COVID vaccination through [email or web address], visit [employer]/MOVaccineInfo or inquire with your pharmacy. If you are experiencing suicidal thoughts, please seek help by calling 9-8-8, to reach the NationalSuicide Prevention Lifeline 24 hours a day. For Fasting Labs - Fast 8-12 hours, medications, water and black coffee okay director of managed services appointment or Test - Please call [phone] today or if you do not receivea call in the next 2-3 days. *You can view all blood work, imaging or any test results via [employer] or on the [employer] (formerly [employer]) alvaro. Please keep in mind you might receive your test results before your doctor. Please allow up to one week for your doctor to review and provide thoughtful comment on all none urgent results. R WATCHSTANDER documented in this encounter Plan of Treatment Not on file documented as of this encounter Visit Diagnoses Diagnosis Acute sinusitis with symptoms greater than 10 days- Primary Acute sinusitis, unspecified documented in this encounter
--- OUTSIDE RECORDS SUMMARY | 2024-08-19 13:52 | XMS_ITS | Encounter Summary ---
Author Organization [facility] Address [address] [place] [address] Care Team Providers Care Shoe Dyer Name Role Phone Inderjit Narayan DO Primary Care Provider + Reason for Visit * Auth/Cert (Routine) Specialty Diagnoses / Procedures Referred By Georgie gallagher Referred To Contact Perioperative Diagnoses History of colon polyps Procedures NV COLONOSCOPY FLX DX W/COLLJ SPEC WHEN PFRMD COLONOSCOPY Modesta Wise DO [address] [address] [address] Referral ID Status Reason Start Date Expiration Date Visits Re quested Visits Authorized [id number] 1 1 Encounter Details Date Type Department Care Team (Late st Contact Info) Description 04/09/2023 9:43 AM CDT Anesthesia Event [address] [place] [address] Lorenzo Rangel MD [address] [place] [address] Anesthesia Record Procedure Summary Procedure [...] Tolerance: tolerated well 04/09/23 0915 by Ni García RN 04/09/23 1014 by Mercedez Vu RN [...] 1. No acute abnormality identified. DICTATION LOCATION: [address] Results for orders placed or performed [...] is identified. Impression IMPRESSION: Negative. Dictated from [facility] Chest CT result (most recent): No results [...] No acute abnormality identified.DICTATION LOCATION: Location - [facility] Cardiovascular - normal exam (+) hypertension well controlled (-) pacemaker, valvular problems/murmurs, past NE, CAD, CABG/stent, dysrhythmias, angina, CHF, orthopnea, PND, [...] risks discussed with Patient. Plan discussed with Sash Repairer. Smoking Compliance patient did not smoke on [...] mg documented in this encounter Care Teams Shoe Dyer Relationship Specialty Start Date End Date Inderjit Narayan DO [address] [place] [phone] PCP - General Family Practice 04/09/23 08/29/23 documented as of this encounter
--- OUTSIDE RECORDS SUMMARY | 2024-08-19 13:52 | XMS_ITS | Encounter Summary ---
Author Organization [facility] Address [address] [facility] Attn: Epic Prelude ADT KAYE SCHMID [address] Care Team Providers Care Front Desk Clerk Name Role Phone Ciro Fernandez DO Primary Care Provider [phone] Encounter Details Date Type Department Care Team [...] on filedocumented in this encounter Care Teams Front Desk Clerk Relationship Specialty Start Date End Date Ciro Fernandez DO PCP - General Family Practice 01/01/23 04/08/23 documented as of this encounter
--- OUTSIDE RECORDS SUMMARY | 2024-08-19 13:52 | XMS_ITS | Encounter Summary ---
Author Organization [facility] Address [address] [place] [address] Care Team Providers Care Devops Consultant Name Role Phone Inderjit Narayan DO Primary Care Provider + Reason for Visit * Reason Comments Med Refill Encounter Details Date Type Department Care Team (Late st Contact Info) Description 08/28/2023 Refill [facility] Family Medicine - Bushra Yuan [address] [facility] [address] [place] [address] Ciro Fernandez DO [address] [place] [address] Pure hypercholesterolemia Social History Tobacco [...] hypercholesterolemia documented in this encounter Care Teams Devops Consultant Relationship Specialty Start Date End Date Inderjit Narayan DO [address] [place] [phone] PCP - General Family Practice 04/09/23 08/29/23 documented as of this encounter
--- OUTSIDE RECORDS SUMMARY | 2024-08-19 13:52 | XMS_ITS | Encounter Summary ---
[facility] Address [address] [place] [address] Care Team Providers Care Welding Process Engineer Name Role Phone Unavailable Primary Care [...]
--- OUTSIDE RECORDS SUMMARY | 2024-08-19 13:52 | XMS_ITS | Encounter Summary ---
Author Organization [facility] Address [address] [place] [address] Care Team Providers Care Licensed Nuclear Operator Name Role Phone Unavailable Primary Care Provider Unavailabl e Reason for Visit * Reason Comments Prediabetes F/u labs Encounter Details Date Type Department Care Team (Latest Contact Info) Description 05/15/2022 1:30 PM CDT Office Visit [facility] Family Medicine - [facility] Abundio Yuan [address] [facility] [address] [place] [address] Ciro Fernandez, DO [address] [facility] [address] [place] [address] Pure hypercholesterolemia (Primary Dx); Essential [...] UA POC Yellow Pale to Dark Yellow [facility] CLARITY UA POC Clear Clear [facility] GLUCOSE UA POC Negative Negative, Normal [facility] BILIRUBIN UA POC Negative Negative [facility] UA POC Negative Negative [facility] SPECIFIC GRAVITY UA POC 1.020 1.000 - 1.030 [facility] BLOOD UA POC Negative Negative [facility] PH UA POC 6.0 5.0 - 8.0 [facility] PROTEIN UA POC Negative Negative [facility] UROBILINOGEN UA POC 0.2 <2.0 mg/dL [facility] NITRITE UA POC Negative Negative [facility] LEUKOCYTE ESTERASE UA POC Negative Negative [facility] KIT LOT NUMBER POC [id number] [facility] KIT EXP DATE POC 03-08-2023 [facility] Urine 05/15/2022 1:46 PM CDT Ciro Fernandez DO POINT OF CARE TESTIN G Performing Organization Address City/[facility]/ZIP Co de Phone Number [facility] CLIA# [id number] [address] [facility] [address] [place] [address] * URINE CULTURE (05/15/2022 1:39 PM CDT) URINE CULTURE [facility] NOTE [facility] Comment: ??CULTURE, URINE, ROUTINE ?Micro Number: ?[id number] ??Test Status: ? Final ??Specimen Source: ?? Urine, clean catch ??Specimen Quality: ??Adequate ??Result: ?No Growth Test Performed at: [place] [address] [place] ??[address] [facility] Urine URINE SPECIMEN OBTAINED BY CLEAN CATCH PROCEDURE / Unknown 05/15/2022 1:39 PM CDT 05/18/2022 11:52 PM CDT Ciro Fernandez DO MICROBIOLOGY - GENER AL ORDERABLES Performing Organization Address City/[facility]/ZIP Code Phone Number [facility] [phone] [place] [address] [place] [address] documented in this encounter Visit Diagnoses Diagnosis Pure hypercholesterolemia- Primary Essential hypertension, benign Dysuria Urinary urgency Urgency of urination Refused influenza vaccine Vaccination not carried out because of patient refusal Gastroesophageal reflux disease, unspecified whether esophagitis present documented in this encounter
--- OUTSIDE RECORDS SUMMARY | 2024-08-19 13:52 | XMS_ITS | Encounter Summary ---
Author Organization [facility] Address [address] [place] [address] Care Team Providers Care Digital Media Manager Name Role Phone Unavailable Primary Care [...]
--- OUTSIDE RECORDS SUMMARY | 2024-08-19 13:52 | XMS_ITS | Encounter Summary ---
Author Organization [facility] Address [address] [place] [address] Care Team Providers Care Infection Prevention Practitioner Name Role Phone Unavailable Primary Care Provider Unavailabl e Reason for Referral * CT Scan (Routine) - Closed Specialty Diagnoses / Procedures Referred By Contac t Referred To Contact Radiology Diagnoses Chronic pansinusitis Procedures CT SINUS [facility] Kma Cardona MD [address] [facility] [address] [place] [address] [facility] [address] Scan [address] [place] [address] Referral ID Status Reason Start Date Expiration Date Visits Re quested Visits Authorized [id number] Closed 10/21/2022 11/21/2023 1 1 Reason for Visit * Reason Comments Sinus Problem * Eval and Treat (Routine) - Closed Specialty Diagnoses / Procedures Referred By Contac t Referred To Contact Otolaryngology Diagnoses Cough Ciro Fernandez, DO [address] [facility] [address] [place] [address] [facility] Manrique [address] [facility] [address] [place] [address] Referral ID Status Reason Start Date Expiration Date V isits Requested Visits Authorized [id number] Closed CRS to Schedule 03/09/2022 03/09/2023 3 3 Encounter Details Date Type Department Care Team (Late st Contact Info) Description 10/21/2022 1:40 PM CDT Office Visit [facility] EAR, NOSE AND THRO[facility] [place] Francisco [facility] [address] [facility] [address] [place] [phone] [place] [address] [place] [address] Chronic pansinusitis (Primary Dx); Non-seasonal [...] Comments Blood Pressure 131/74 10/16/2022 10:08 AM NURSE SPECIALIST Pulse - - Temperature - - Respiratory Rate 16 10/16/2022 10:08 AM NURSE SPECIALIST Oxygen Saturation - - Inhaled Oxygen Concentration - - Weight 89.8 kg (198 lb) 10/16/2022 10:08 AM NURSE SPECIALIST Height 180.3 cm (5' 11 ) 10/16/2022 10:08 AM NURSE SPECIALIST Body Mass Index 27.62 10/16/2022 10:08 AM NURSE SPECIALIST documented in this encounter Progress Notes [...] eczema, due to unspecified cause Essential hypertension RESIGHINI (hard of hearing) Motion sickness Current Outpatient [...] 90 Tablet 3 sod bicarb-sod chlor-neti pot (Deford Saline Nasal Neti Rinse) packet with rinse [...] maxillary sinusitis DICTATION LOCATION: Location 1 - [facility] Narrative 11/26/2022 3:[address] SINUS [...] maxillary sinusitis DICTATION LOCATION: Location 1 - [facility] Kam Cardona MD CT ORDERABLES documented in this encounter Visit Diagnoses Diagnosis Chronic pansinusitis- Primary Other chronic sinusitis Non-seasonal allergic rhinitis due to other allergic trigger Chronic cough Cough Gastroesophageal reflux disease without esophagitis Esophageal reflux Chronic pansinusitis Other chronic sinusitis documented in this encounter
--- OUTSIDE RECORDS SUMMARY | 2024-08-19 13:52 | XMS_ITS | Encounter Summary ---
Author Organization [facility] Address [address] [place] [address] Care Team Providers Care Director Of Nursing Name Role Phone Unavailable Primary Care Provider [...]
--- OUTSIDE RECORDS SUMMARY | 2024-08-19 13:52 | XMS_ITS | Encounter Summary ---
Author Organization [facility] Address [address] [place] [address] Care Team Providers Care Doughnut Fryer Name Role Phone Unavailable Primary Care Provider [...]
--- OUTSIDE RECORDS SUMMARY | 2024-08-19 13:52 | XMS_ITS | Encounter Summary ---
Author Organization [facility] Address [address] [facility] Attn: Epic Prelude ADT KAYE SCHMID [address] Care Team Providers Care Electric Organ Checker Name Role Phone Unavailable Primary Care Provider [...]
--- OUTSIDE RECORDS SUMMARY | 2024-08-19 13:52 | XMS_ITS | Encounter Summary ---
Author Organization [facility] Address [address] [facility] Attn: Epic Prelude ADT KAYE SCHMID [address] Care Team Providers Care Fire Extinguisher Sprinkler Inspector Name Role Phone Unavailable Primary Care [...]
--- OUTSIDE RECORDS SUMMARY | 2024-08-19 13:52 | XMS_ITS | Encounter Summary ---
Author Organization [facility] Address [address] [facility] Attn: Epic Prelude ADT KAYE SCHMID [address] Care Team Providers Care Bander Operator Name Role Phone Unavailable Primary Care [...]
--- OUTSIDE RECORDS SUMMARY | 2024-08-19 13:52 | XMS_ITS | Encounter Summary ---
Author Organization [facility] Address [address] [place] [address] Care Team Providers Care Business Center Representative Name Role Phone Unavailable Primary Care Provider Unavailabl e Reason for Visit * Reason Comments Moles Encounter Details Date Type Department Care Team (Latest Contact Info) Description 07/21/2022 1:00 PM SAND CONDITIONER MACHINE Procedure visit [facility] Medicine - [facility] Kwabena [address] [facility] [address] [place] [address] Ciro Fernandez, DO [address] [facility] [address] [place] [address] Neoplasm of uncertain behavior (Primary [...] Coronavirus/COVID-19? No / Unsure 07/21/2022 12:41 PM SAND CONDITIONER MACHINE documented as of this encounter Last Filed Vital Signs Vital Sign Reading Time Taken Comments Blood Pressure 148/70 07/21/2022 1:12 PM SAND CONDITIONER MACHINE Pulse - - Temperature 36.1 ??C (97 ??F) 07/21/2022 1:12 PM SAND CONDITIONER MACHINE Respiratory Rate - - Oxygen Saturation - - Inhaled Oxygen Concentration - - Weight 94.6 kg (208 lb 9.6 oz) 07/21/2022 1:12 P M SAND CONDITIONER MACHINE Height 180.3 cm (5' 11 ) 07/21/2022 1:12 PM SAND CONDITIONER MACHINE Body Mass Index 29.09 07/21/2022 1:12 PM SAND CONDITIONER MACHINE documented in this encounter Progress Notes * [...] of uncertain behavior - PATHOLOGY; Future - NE TANGENTIAL BIOPSY SKIN SINGLE LESION Discussed Risks, [...] for evaluation, the patient may return prn. CONDITIONER MACHINE documented in this encounter Plan of Treatment Not on file documented as of this encounter Procedures Procedure Name Priority Date/Time Associated Diagnosis Comments PATHOLOGY Routine 07/21/2022 1:20 PM SAND CONDITIONER MACHINE Neoplasm of uncertain behavior documented in this encounter Results * PATHOLOGY (07/21/2022 1:20 PM SAND CONDITIONER MACHINE) CASE REPORT Surgical Pathology Report ? Case: [id number] ? Authorizing Provider: ??Ciro Fernandez DO ?Collected: ? 07/21/2022 01:20 PM ? Ordering Location: ? [facility] ?Received: ?07/23/2022 11:04 AM ? [facility] ? 140 ? Pathologist: ? Vivi Dykes MD ? Specimen: ?Cheek, left ? 2 3:09 PM [facility] FINAL DIAGNOSIS Skin, left cheek, shave biopsy: - Seborrheic keratosis, inflamed. 2 3:09 PM [facility] S DESCRIPTION Received in one container [...] correct patient identifiers were confirmed by a volunteer patient representative from the department. [facility] 2 3:09 PM [facility] MICROSCOPIC DESCRIPTION The slides are labeled [id number] and Brendon Aldana. Histologic sections of skin [...] of marked solar elastosis. 2 3:09 PM [facility] OPERATIVE PROCEDURE Not stated 2 3:09 PM [facility] CLINICAL INFORMATION D48.9 - Neoplasm of uncertain behavior [ICD-10-CM] 2 3:09 PM [facility] COMMENT Special stain, immunohistochemical, and/or in situ hybridization results are interpreted with controls that demonstrate appropriate staining reactions. Note on use of immunohistochemistry reagents and in situ hybridization probes: These tests were developed and their performance characteristics determined by [facility] Department of Laboratory Medicine. It has not [...] part or completely in the following laboratories: [facility], [place] #[id number] [address] [place] [address] [id number] [address] [place] [address] [facility]/[place], [place] #[id number] [address] [place] [address] This report was created with the [employer] voice-activated dictation system. Inherent to this system is the possibility of syntax, grammar, punctuation and other errors that could impact the interpretation of the report. If there are interpretative questions about aspects of this report, please contact the performing pathologist. 2 3:09 PM [facility] Tissue CHEEK STRUCTURE / Unknown 07/21/2022 1:20 PM SAND CONDITIONER MACHINE 07/23/2022 11:04 AM SAND CONDITIONER MACHINE Ciro Fernandez DO PATHOLOGY/CYTOLOGY [facility]ITAL[facility]# [id number] [address] [place] [address] documented in this encounter Visit Diagnoses Diagnosis Neoplasm of uncertain behavior- Primary Neoplasm of uncertain behavior, site unspecified documented in this encounter
--- OUTSIDE RECORDS SUMMARY | 2024-08-19 13:52 | XMS_ITS | Encounter Summary ---
Author Organization [facility] Address [address] [place] [address] Care Team Providers Care Concrete Paving Machine Operator Name Role Phone Unavailable Primary [...]
--- OUTSIDE RECORDS SUMMARY | 2024-08-19 13:52 | XMS_ITS | Encounter Summary ---
Author Organization [facility] Address [address] [place] [address] Care Team Providers Care Safety Sitter Name Role Phone Inderjit Narayan DO Primary Care Provider + Reason for Visit * Auth/Cert (Routine) Specialty Diagnoses / Procedures Referred By Contac t Referred To Contact Perioperative Diagnoses History of colon polyps Procedures TX COLONOSCOPY FLX DX W/COLLJ SPEC WHEN PFRMD COLONOSCOPY Modesta Wise, DO [address] [address] [address] Referral ID Status Reason Start Date Expiration Date Visits Re quested Visits Authorized [id number] 1 1 Encounter Details Date Type Department Care Team (Late st Contact Info) Description 04/09/2023 9:15 AM CDT - 04/09/2023 9:45 AM CDT Surgery [address] [place] [address] Modesta Wise DO [address] [address] COLONOSCOPY Surgery Details Date/Time Status Location OR Service Patient Class Case Class Case Type Trauma Case? 04/09/2023 9:15 AM Posted [facility] GI 02 Gastroenterology Outpatient Elective No Panel [...] 10/21/2022 Fluticasone Furoate (FLONASE SENSIMIST) 27.5 mcg/actuation Jewell, Suspension Administer 2 Sprays in each nostril daily. 1 Gram 4 10/21/2022 losartan (COZAAR) 50 mg tablet Take 1 Tablet (50 mg) by mouth daily. 90 Tablet 3 09/24/2022 simvastatin (ZOCOR) 40 mg tabletIndications:Pure hypercholesterolemia Take 1 Tablet (40 mg) by mouth late in the day. 90 Tablet 3 09/16/2022 sod bicarb-sod chlor-neti pot ([place] Saline Nasal Neti Rinse) packet with rinse [...] Pre-Anesthesia Protocol for GI Lab Procedures [facility] Approved by: [facility]-Medical Executive Committee Approval Date: 12/22/2022 ORDERS ARE ENTERED ???PER PROTOCOL?? Enter the protocol in the patient???s electronic health record using smartphrase: .anestprotocolgilab Nursing Orders: Monitoring Obtain and record vital signs on admission to [facility] Continuous vital signs (Non-invasive blood [...] appropriate, may confirm POC with: Nursing Only [id number] (this lab can be obtained at no cost to the patient when confirming a critical high or Critical low POC glucose. See hypoglycemia protocol for additional orders if needed: [facility] ANE Adult Perianesthesia HYPOglycemia Protocol Notify any [...] unable to obtain urine, may obtain serum [id number]) All patients with potential for childbearing (menarche [...] eczema, due to unspecified cause Essential hypertension MARY'S IGLOO (hard of hearing) Hyperlipidemia Hypertension Motion sickness Past Surgical History: Procedure Laterality Date HX HEART CATHETERIZATION 1992 HX SURGICAL OTHER as an Removed blood clot from brain HX VASECTOMY 1980 TX COLONOSCOPY FLX DX W/COLLJ SPEC WHEN PFRMD 01/12/2014 COLONOSCOPY performed by Modesta Wise DO at [facility] GI LAB TX COLONOSCOPY FLX DX W/COLLJ SPEC WHEN PFRMD N/A 09/01/2019 COLONOSCOPY performed by Modesta Wise DO at [facility] GI LAB TX SURGICAL ARTHROSCOPY SHOULDER W/ROTATOR CUFF RPR Right 09/30/2018 RIGHT SHOULDER SCOPE W ROTATOR CUFF REPAIR, SUBACROMIAL DECOMPRESSION, W EXTENSIVE DEBRIDEMENT performed by Nehemiah Castellano MD at [facility] CC OR Medications Prior to Admission Medication Sig Dispense Refill Last Dose montelukast (SINGULAIR) 10 mg tablet TAKE 1 TABLET BY MOUTH EVERYDAY AT BEDTIME 90 Tablet 1 04/08/2023 cetirizine-pseudoephedrine sr 12 hour (ZyrTEC-D) 5-120 mg tablet Take 1 Tablet by mouth 2 times daily. 72 Tablet 5 04/08/2023 Fluticasone Furoate (FLONASE SENSIMIST) 27.5 mcg/actuation Jewell, Suspension Administer 2 Sprays ineach nostril daily. [...] 28 Tablet 0 sod bicarb-sod chlor-neti pot ([place] Saline Nasal Neti Rinse) packet with rinse [...] 04/09/2023 10:14 AM CDTAssociated Order(s): COLONOSCOPY REPORT [facility] Endoscopy Patient Name: Brendon Aldana Procedure [...] Addenda: 0 Procedure Date: 04/09/2023 9:32:32 AM [address] [facility] [address] [place] [address] * Amparo Ibarra RN - 03/16/2023 12:32 [...] * Screen for colon cancer [Z12.11] Location: [facility] Referring Physician: Ciro Fernandez Patient's BMI: Body mass index is 28.03 kg/m??. Is patient a candidate for offsite location? yes Medications Type of prep given: Instructions sent via: Email Anticoagulants: no Relevant prior procedure/pathology: Procedure: COLON Physician: MR Date: 09/01/2019 Location: [facility] Last Pathology: FINAL DIAGNOSIS Large bowel, hepatic flexure polyps, polypectomy: -Tubular adenomas. Past Surgical History: Past Surgical History: Procedure Laterality Date HX HEART CATHETERIZATION 1992 HX SURGICAL OTHER as an Removed blood clot from brain HX VASECTOMY 1980 TX COLONOSCOPY FLX DX W/COLLJ SPEC WHEN PFRMD 01/12/2014 COLONOSCOPY performed by Modesta Wise DO at [facility] GI LAB TX COLONOSCOPY FLX DX W/COLLJ SPEC WHEN PFRMD N/A 09/01/2019 COLONOSCOPY performed by Modesta Wise DO at [facility] GI LAB TX SURGICAL ARTHROSCOPY SHOULDER W/ROTATOR CUFF RPR Right 09/30/2018 RIGHT SHOULDER SCOPE W ROTATOR CUFF REPAIR, SUBACROMIAL DECOMPRESSION, W EXTENSIVE DEBRIDEMENT performed by Nehemiah Castellano MD at [facility] CC OR Past Medical History: Past Medical History: Diagnosis Date Community acquired pneumonia Contact dermatitis and other eczema, due to unspecified cause Essential hypertension MARY'S IGLOO (hard of hearing) Hyperlipidemia Hypertension Motion sickness No current facility-administered medications on file prior to encounter. Current Outpatient Medications on File Prior to Encounter Medication Sig Dispense Refill cetirizine-pseudoephedrine sr 12 hour (ZyrTEC-D) 5-120 mg tablet Take 1 Tablet by mouth 2 times daily. 72 Tablet 5 Fluticasone Furoate (FLONASE SENSIMIST) 27.5 mcg/actuation Jewell, Suspension Administer 2 Sprays ineach nostril daily. [...] 28 Tablet 0 sod bicarb-sod chlor-neti pot ([place] Saline Nasal Neti Rinse) packet with rinse [...] of colon Diverticulosis Screen for colon cancer TX COLONOSCOPY FLX DX W/COLLJ SPEC WHEN PFRMD 04/09/2023 9:15 AM CDT History of colon polyps Polyp of hepatic flexure of colon Diverticulosis Screen for colon cancer documented in this encounter Results * COLONOSCOPY REPORT (04/09/2023 10:14 AM CDT) Narrative Procedure Note Modesta Wise DO - 04/09/2023 10:14 AM CDT [facility] Endoscopy Patient Name: Brendon Aldana Procedure [...] Addenda: 0 Procedure Date: 04/09/2023 9:32:[address] [address] Modesta Wise DO GI PROCEDURE ORDERA BLES * PATHOLOGY (04/09/2023 10:00 AM CDT) CASE REPORT Surgical Pathology Report ? Case: [id number] ? Authorizing Provider: ??Modesta Wise, DO ? Collected: ? 04/09/2023 10:00 AM ? Ordering Location: ? [facility] Endoscopy ?? Received: ?04/09/2023 03:02 PM ? [facility] ? Pathologist: ? Kevin Romero, DO ? Specimen: ?Colon, transverse, polyps ? 3 4:52 PM T [facility] FINAL DIAGNOSIS Large bowel, transverse colon polyp, polypectomy: - Tubular adenoma. 3 4:52 PM T [facility] S DESCRIPTION Received in one container labeled Brendon Aldana and transverse colon polyp is 1 piece of red-pate tissue measuring 0.6 x 0.3 x 0.1 cm. It is entirely submitted in cassette A1. EL 3 4:52 PM [facility] MICROSCOPIC DESCRIPTION The slides are labeled [id number] and Brendon Aldana. Sections of the transverse colon polyp show a tubular adenoma. No high-grade dysplasia or invasive carcinoma is identified. 3 4:52 PM [facility] OPERATIVE PROCEDURE 1: COLONOSCOPY 3 4:52 PM [facility] CLINICAL INFORMATION A Colon Polyp(s). Adenomatous vs hyperplastic vs other. Colon Polyp(s). Adenomatous vs hyperplastic vs other. hx polyps K63.5 (ICD-10-CM) - 211.3 (ICD-9-CM) - Polyp of hepatic flexure of colon K57.90 (ICD-10-CM) - 562.10 (ICD-9-CM) - Diverticulosis screening Z86.010-History of colon polyps K63.5-Polyp of hepatic flexure of colon K57.90-Diverticulosis Z12.11-Screen for colon cancer 3 4:52 PM [facility] COMMENT Special stain, immunohistochemical, and/or in situ hybridization results are interpreted with controls that demonstrate appropriate staining reactions. Note on use of immunohistochemistry reagents and in situ hybridization probes: These tests were developed and their performance characteristics determined by [facility], Department of Laboratory Medicine. It has not [...] part or completely in the following laboratories: [facility], [place] #[id number] [address] [place] [address] [facility], [place] #[id number] [address] [place] [address] [id number] [address] [place] [address] This report was created with the [employer] voice-activated dictation system. Inherent to this system is the possibility of syntax, grammar, punctuation and other errors that could impact the interpretation of the report. If there are interpretative questions about aspects of this report, please contact the performing pathologist. 3 4:52 PM CDT [facility] Tissue TRANSVERSE COLON STRUCTURE / Unknown Collection / Unknown 04/09/2023 10:00 AM CDT 04/09/2023 3:02 PM CDT Comment:Colon Polyp(s). Pj omatous vs hyperplastic vs other. Modesta Wise DO PATHOLOGY/CYTOLOGY ORDERABLES Performing Organization Address City/State/[facility] Co de Phone Number [facility]# [id number] [address] [place] [address] documented in this encounter Visit Diagnoses Diagnosis [...] RN) documented in this encounter Care Teams Safety Sitter Relationship Specialty Start Date End Date Inderjit Narayan DO [address] [place] [phone] PCP - General Family Practice 04/09/23 08/29/23 documented as of this encounter
--- OUTSIDE RECORDS SUMMARY | 2024-08-19 13:52 | XMS_ITS | Encounter Summary ---
Author Organization [facility] Address [address] [place] [address] Care Team Providers Care Cna Gna Name Role Phone Unavailable Primary Care Provider Unavailabl e Reason for Visit * Reason Onset Date Comments Primary Care Outreach 11/04/2023 Encounter Details Date Type Department Care Team (Late st Contact Info) Description 11/04/2023 Telephone [facility] Family Medicine - [address] [place] [address] Ciro Fernandez, DO [address] [place] [address] Primary Care Outreach Social History [...]
--- OUTSIDE RECORDS SUMMARY | 2024-08-19 13:52 | XMS_ITS | Encounter Summary ---
Author Organization [facility] Address [address] [place] [address] Care Team Providers Care Commercial Lines Account Executive Name Role Phone Unavailable Primary Care Provider Unavailabl e Reason for Referral * Eval and Treat (Routine) - Closed Specialty Diagnoses / Procedures Referred By Georgie t Referred To Contact Gastroenterology Diagnoses Screening for colon cancer Colon adenoma Polyp of hepatic flexure of colon Diverticulosis colon Procedures COLON Ciro Fernandez DO [address] [facility] [address] [place] [address] Modesta Wise DO [address] [address] Referral ID Status Reason Start Date Expiration Date V isits Requested Visits Authorized [id number] Closed CRS to Schedule 10/07/2022 10/07/2023 2 2 AREHOUSE SUPERVISOR Reason for Visit * Reason Onset Date Comments Needs Orders Written 10/07/2022 Encounter Details Date Type Department Care Team (Late st Contact Info) Description 10/07/2022 Telephone [facility] Medicine - [address] [place] [address] Ciro Fernandez DO [address] [facility] [address] [place] [address] Needs Orders Written Social History [...] Tasneem Regalado RMA - 10/07/2022 10:56 AM SUBWAREHOUSE SUPERVISOR Pt notified that Colonoscopy has been ordered. Pt given number to call [facility]. AREHOUSE SUPERVISOR * Telephone Encounter - Charmaine Kowalski - 10/07/2022 10:34 AM CST Order Request Colonoscopy Reason for Request: patient states it is time for it. Please call when orders are placed. Call-back Number: [phone] (home) Home Phone Work Phone Mobile Home Phone AREHOUSE SUPERVISOR documented in this encounter Plan of [...]
--- OUTSIDE RECORDS SUMMARY | 2024-08-19 13:52 | XMS_ITS | Encounter Summary ---
Author Organization [facility] Address [address] [facility] Attn: Epic Prelude ADT KAYE SCHMID [address] Care Team Providers Care Gear Coding Machine Operator Name Role Phone Unavailable Primary [...]
--- OUTSIDE RECORDS SUMMARY | 2024-08-19 13:52 | XMS_ITS | Encounter Summary ---
Author Organization [facility] Address [address] [place] [address] Care Team Providers Care Accounts Receivable Executive Name Role Phone Unavailable Primary Care Provider Unavailabl e Reason for Visit * Reason Onset Date Comments Sinus Pain 07/27/2022 Encounter Details Date Type Department Care Team (Late st Contact Info) Description 07/27/2022 Telephone [facility] Medicine - [address] [facility] [address] [place] [address] Ciro Fernandez, DO [address] [facility] [address] [place] [address] Sinus Pain Social History Tobacco [...] Coronavirus/COVID-19? No / Unsure 07/21/2022 12:41 PM HEAT TREATER APPRENTICE documented as of this encounter Miscellaneous Notes * Telephone Encounter - Jennifer Long - 07/27/2022 9:18 AM CST PT IS ON FOR VV TREATER APPRENTICE * Telephone Encounter - Leslie Aldana - [...] advise The patient's preferred pharmacy is [id number] - [place], [place] - [address] . TREATER APPRENTICE documented in this encounter Plan of Treatment Not on file documented as of this encounter Visit Diagnoses Not on filedocumented in this encounter
--- OUTSIDE RECORDS SUMMARY | 2024-08-19 13:52 | XMS_ITS | Encounter Summary ---
Author Organization [facility] Address [address] [place] [address] Care Team Providers Care Bung Dropper Name Role Phone Unavailable Primary Care [...]
--- OUTSIDE RECORDS SUMMARY | 2024-08-19 13:52 | XMS_ITS | Encounter Summary ---
Author Organization [facility] Address [address] [place] [address] Care Team Providers Care Black And White Printer Operator Name Role Phone Ciro Fernandez DO Primary Care Provider [phone] Reason for Visit * Reason Comments Med Refill Encounter Details Date Type Department Care Team (Late st Contact Info) Description 03/07/2023 Refill [facility] Family Medicine - [facility] [address] [facility] [address] [place] [address] Ciro Fernandez, [address] [facility] [address] [place] [address] Cough Social History Tobacco Use [...] Cough documented in this encounter Care Teams Black And White Printer Operator Relationship Specialty Start Date End Date Ciro Fernandez DO PCP - General Family Practice 01/01/23 04/08/23 documented as of this encounter
--- OUTSIDE RECORDS SUMMARY | 2024-08-19 13:52 | XMS_ITS | Encounter Summary ---
Author Organization [facility] Address [address] [place] [address] Care Team Providers Care Lead Relay Tester Name Role Phone Inderjit Narayan DO Primary Care Provider + Reason for Visit * Auth/Cert (Routine) Specialty Diagnoses / Procedures Referred By Contac t Referred To Contact Perioperative Diagnoses History of colon polyps Procedures ME COLONOSCOPY FLX DX W/COLLJ SPEC WHEN PFRMD COLONOSCOPY Modesta Wise DO [address] [address] [facility] Endoscopy [address] 1 [place] [address] Referral ID Status Reason Start Date Expiration Date Visits Re quested Visits Authorized [id number] 1 1 Encounter Details Date Type Department Care Team (Late st Contact Info) Description 04/09/2023 7:47 AM CDT - 04/09/2023 10:30 AM CDT Hospital Encounter [address] 1 [place] [address] Modesta Wise DO [address] [address] History of colon polyps Discharge [...] 10/21/2022 Fluticasone Furoate (FLONASE SENSIMIST) 27.5 mcg/actuation [place], Suspension Administer 2 Sprays in each nostril daily. 1 Gram 4 10/21/2022 losartan (COZAAR) 50 mg tablet Take 1 Tablet (50 mg) by mouth daily. 90 Tablet 3 09/24/2022 simvastatin (ZOCOR) 40 mg tabletIndications:Pure hypercholesterolemia Take 1 Tablet (40 mg) by mouth late in the day. 90 Tablet 3 09/16/2022 sod bicarb-sod chlor-neti pot ([place] Saline Nasal Neti Rinse) packet with rinse [...] Routine Pre-Anesthesia Protocol for GI Lab Procedures [facility] Approved by: [facility]-Medical Executive Committee Approval Date: 12/22/2022 ORDERS ARE ENTERED ???PER PROTOCOL?? Enter the protocol in the patient???s electronic health record using MVP Interactiverase: .anestprotocolgilab Nursing Orders: Monitoring Obtain and record vital signs on admission to [facility] Continuous vital signs (Non-invasive blood pressure, [...] appropriate, may confirm POC with: Nursing Only [id number] (this lab can be obtained at no cost to the patient when confirming a critical high or Critical low POC glucose. See hypoglycemia protocol for additional orders if needed: [facility] ANE Adult Perianesthesia HYPOglycemia Protocol [...] unable to obtain urine, may obtain serum [id number]) All patients with potential for childbearing (menarche [...] eczema, due to unspecified cause Essential hypertension [place] (hard of hearing) Hyperlipidemia Hypertension Motion sickness Past Surgical History: Procedure Laterality Date HX HEART CATHETERIZATION 1992 HX SURGICAL OTHER as an Removed blood clot from brain HX VASECTOMY 1980 ME COLONOSCOPY FLX DX W/COLLJ SPEC WHEN PFRMD 01/12/2014 COLONOSCOPY performed by Modesta Wise DO at [facility] GI LAB ME COLONOSCOPY FLX DX W/COLLJ SPEC WHEN PFRMD N/A 09/01/2019 COLONOSCOPY performed by Modesta Wise DO at [facility] GI LAB ME SURGICAL ARTHROSCOPY SHOULDER W/ROTATOR CUFF RPR Right 09/30/2018 RIGHT SHOULDER SCOPE W ROTATOR CUFF REPAIR, SUBACROMIAL DECOMPRESSION, W EXTENSIVE DEBRIDEMENT performed by Nehemiah Castellano MD at [facility] CC OR Medications Prior to Admission Medication Sig Dispense Refill Last Dose montelukast (SINGULAIR) 10 mg tablet TAKE 1 TABLET BY MOUTH EVERYDAY AT BEDTIME 90 Tablet 1 04/08/2023 cetirizine-pseudoephedrine sr 12 hour (ZyrTEC-D) 5-120 mg tablet Take 1 Tablet by mouth 2 times daily. 72 Tablet 5 04/08/2023 Fluticasone Furoate (FLONASE SENSIMIST) 27.5 mcg/actuation [place], Suspension Administer 2 Sprays ineach nostril daily. [...] 28 Tablet 0 sod bicarb-sod chlor-neti pot ([place] Saline Nasal Neti Rinse) packet with rinse [...] 04/09/2023 10:14 AM CDTAssociated Order(s): COLONOSCOPY REPORT [facility] Patient Name: Brendon Aldana Procedure Date: [...] Addenda: 0 Procedure Date: 04/09/2023 9:32:32 AM [id number] [address] * Amparo Ibarra RN - 03/16/2023 12:32 [...] * Screen for colon cancer [Z12.11] Location: [facility] Referring Physician: Ciro Fernandez Patient's BMI: Body mass index is 28.03 kg/m??. Is patient a candidate for offsite location? yes Medications Type of prep given: Instructions sent via: Email Anticoagulants: no Relevant prior procedure/pathology: Procedure: COLON Physician: MR Date: 09/01/2019 Location: [facility] Last Pathology: FINAL DIAGNOSIS Large bowel, hepatic flexure polyps, polypectomy: -Tubular adenomas. Past Surgical History: Past Surgical History: Procedure Laterality Date HX HEART CATHETERIZATION 1992 HX SURGICAL OTHER as an Removed blood clot from brain HX VASECTOMY 1980 ME COLONOSCOPY FLX DX W/COLLJ SPEC WHEN PFRMD 01/12/2014 COLONOSCOPY performed by Modesta Wise DO at [facility] GI LAB ME COLONOSCOPY FLX DX W/COLLJ SPEC WHEN PFRMD N/A 09/01/2019 COLONOSCOPY performed by Modesta Wise DO at [facility] GI LAB ME SURGICAL ARTHROSCOPY SHOULDER W/ROTATOR CUFF RPR Right 09/30/2018 RIGHT SHOULDER SCOPE W ROTATOR CUFF REPAIR, SUBACROMIAL DECOMPRESSION, W EXTENSIVE DEBRIDEMENT performed by Nehemiah Castellano MD at [facility] CC OR Past Medical History: Past Medical History: Diagnosis Date Community acquired pneumonia Contact dermatitis and other eczema, due to unspecified cause Essential hypertension [place] (hard of hearing) Hyperlipidemia Hypertension Motion sickness No current facility-administered medications on file prior to encounter. Current Outpatient Medications on File Prior to Encounter Medication Sig Dispense Refill cetirizine-pseudoephedrine sr 12 hour (ZyrTEC-D) 5-120 mg tablet Take 1 Tablet by mouth 2 times daily. 72 Tablet 5 Fluticasone Furoate (FLONASE SENSIMIST) 27.5 mcg/actuation [place], Suspension Administer 2 Sprays ineach nostril daily. [...] 28 Tablet 0 sod bicarb-sod chlor-neti pot ([place] Saline Nasal Neti Rinse) packet with rinse [...] of colon Diverticulosis Screen for colon cancer ME COLONOSCOPY FLX DX W/COLLJ SPEC WHEN PFRMD 04/09/2023 9:15 AM CDT History of colon polyps Polyp of hepatic flexure of colon Diverticulosis Screen for colon cancer documented in this encounter Results * COLONOSCOPY REPORT (04/09/2023 10:14 AM CDT) Narrative Procedure Note Modesta Wise DO - 04/09/2023 10:14 AM CDT [facility] Endoscopy Patient Name: Brendon Aldana [...] Addenda: 0 Procedure Date: 04/09/2023 9:32:32 AM [address] [facility] [address] [place] [address] Janicedani Yeni Wise DO GI PROCEDURE ORDERA BLES * PATHOLOGY (04/09/2023 10:00 AM CDT) CASE REPORT Surgical Pathology Report ? Case: [id number] ? Authorizing Provider: ??Modesta Wise, DO ? Collected: ? 04/09/2023 10:00 AM ? Ordering Location: ? [facility] ?? Received: ?04/09/2023 03:02 PM ? [facility] ? Pathologist: ? Kevin Romero, DO ? Specimen: ?Colon, transverse, polyps ? 3 4:52 PM CDT [facility] FINAL DIAGNOSIS Large bowel, transverse colon polyp, polypectomy: - Tubular adenoma. 3 4:52 PM CDT [facility] DESCRIPTION Received in one container labeled Brendon Aldana and transverse colon polyp is 1 piece of red-pate tissue measuring 0.6 x 0.3 x 0.1 cm. It is entirely submitted in cassette A1. [facility] 3 4:52 PM [facility] MICROSCOPIC DESCRIPTION The slides are labeled [id number] and Brendon Aldana. Sections of the transverse colon polyp show a tubular adenoma. No high-grade dysplasia or invasive carcinoma is identified. 3 4:52 PM [facility] OPERATIVE PROCEDURE 1: COLONOSCOPY 3 4:52 PM [facility] CLINICAL INFORMATION A Colon Polyp(s). Adenomatous vs hyperplastic vs other. Colon Polyp(s). Adenomatous vs hyperplastic vs other. hx polyps K63.5 (ICD-10-CM) - 211.3 (ICD-9-CM) - Polyp of hepatic flexure of colon K57.90 (ICD-10-CM) - 562.10 (ICD-9-CM) - Diverticulosis screening Z86.010-History of colon polyps K63.5-Polyp of hepatic flexure of colon K57.90-Diverticulosis Z12.11-Screen for colon cancer 3 4:52 PM [facility] COMMENT Special stain, immunohistochemical, and/or in situ hybridization results are interpreted with controls that demonstrate appropriate staining reactions. Note on use of immunohistochemistry reagents and in situ hybridization probes: These tests were developed and their performance characteristics determined by [facility], Department of Laboratory Medicine. It has [...] part or completely in the following laboratories: [facility], [place] #[id number] [address] [place] [address] [facility], [place] #[id number] 1 [place] [address] [facility] [place], CLIA #[id number] [address], [place] [address] This report was created with the Navent voice-activated dictation system. Inherent to this system is the possibility of syntax, grammar, punctuation and other errors that could impact the interpretation of the report. If there are interpretative questions about aspects of this report, please contact the performing pathologist. 4:[address] [facility] Tissue TRANSVERSE COLON STRUCTURE / Unknown Collection / Unknown 04/09/2023 10:00 AM CDT 04/09/2023 3:02 PM CDT Comment:Colon Polyp(s). Pj omatous vs hyperplastic vs other. Modesta Wise DO PATHOLOGY/CYTOLOGY ORDERABLES [facility] [id number] [address] [place] [address] documented in this encounter Visit Diagnoses Diagnosis [...] RN) documented in this encounter Care Teams Lead Relay Tester Relationship Specialty Start Date End Date Inderjit Narayan DO [address] [place] [phone] PCP - General Family Practice 04/09/23 08/29/23 documented as of this encounter
--- OUTSIDE RECORDS SUMMARY | 2024-08-19 13:52 | XMS_ITS | Encounter Summary ---
Author Organization [facility] Address [address] [place] [address] Care Team Providers Care Barber Name Role Phone Unavailable Primary Care Provider [...]
--- OUTSIDE RECORDS SUMMARY | 2024-08-19 13:52 | XMS_ITS | Encounter Summary ---
Author Organization [facility] Address [address] [place] [address] Care Team Providers Care Drum Straightener Name Role Phone Unavailable Primary Care Provider [...]
--- OUTSIDE RECORDS SUMMARY | 2024-08-19 13:52 | XMS_ITS | Encounter Summary ---
Author Organization [facility] Address [address] [place] [address] Care Team Providers Care Education Consultant Name Role Phone Unavailable Primary Care Provider Unavailabl e Reason for Visit * Reason Onset Date Comments Primary Care Outreach 11/13/2022 Encounter Details Date Type Department Care Team (Late st Contact Info) Description 11/13/2022 Patient Outreach [facility] Family Medicine - [facility] [address] [facility] [address] [place] [address] Ciro Fernandez, DO [address] [facility] [address] [place] [address] Primary Care Outreach Social History [...]
--- OUTSIDE RECORDS SUMMARY | 2024-08-19 13:52 | XMS_ITS | Encounter Summary ---
Author Organization [facility] Address [address] [place] [address] Care Team Providers Care Campaign Analyst Name Role Phone Unavailable Primary Care Provider Unavailabl e Reason for Visit * Reason Onset Date Comments Results 07/24/2022 pathology Encounter Details Date Type Department Care Team (Late st Contact Info) Description 07/24/2022 Telephone [facility] Medicine - [place] Yuan [address] [facility] Abundio [address] [place] [address] Ciro Fernandez, DO [address] [facility] [address] [place] [address] Results (pathology) Social History Tobacco [...] Coronavirus/COVID-19? No / Unsure 07/21/2022 12:41 PM FLOOR MECHANIC documented as of this encounter Miscellaneous Notes * Telephone Encounter - Kay Jesus CMA - 07/24/2022 3:43 PM FLOOR MECHANIC Patient notified and understands. R MECHANIC * Telephone Encounter - Kay Jesus CMA - 07/24/2022 3:25 PM FLOOR MECHANIC ----- Message from Samantha Vargas PA-C sent at 07/24/2022 3:21 PM FLOOR MECHANIC ----- Biopsy returned showing an inflamed seborrheic keratosis, which is benign. Great news! R MECHANIC documented in this encounter Plan of Treatment Not on file documented as of this encounter Visit Diagnoses Not on filedocumented in this encounter
--- OUTSIDE RECORDS SUMMARY | 2024-08-19 13:52 | XMS_ITS | Encounter Summary ---
Author Organization [facility] Address [address] [place] [address] Care Team Providers Care Speed Runner Name Role Phone Unavailable Primary Care Provider [...]
--- OUTSIDE RECORDS SUMMARY | 2024-08-19 13:52 | XMS_ITS | Encounter Summary ---
Author Organization [facility] Address [address] [place] [address] Care Team Providers Care Multiple Cut Off Saw Operator Name Role Phone Unavailable Primary Care Provider Unavailabl e Reason for Referral * CT Scan (Routine) - Closed Specialty Diagnoses / Procedures Referred By Contac t Referred To Contact Radiology Diagnoses Chronic pansinusitis Procedures CT SINUS STEALTH PROTOCOL Kam Cardona MD [address] [place] [address] Scan [address] [place] [address] Referral ID Status Reason Start Date Expiration Date Visits Re quested Visits Authorized [id number] Closed 10/21/2022 11/21/2023 1 1 Reason for Visit * CT Scan (Routine) - Closed Specialty Diagnoses / Procedures Referred By Contac t Referred To Contact Radiology Diagnoses Chronic pansinusitis Procedures CT SINUS STEALTH PROTOCOL Kam Cardona MD [address] [place] [address] Scan [place] [address] [facility] [address] [place] [address] Referral ID Status Reason Start Date Expiration Date Visits Re quested Visits Authorized [id number] Closed 10/21/2022 11/21/2023 1 1 Encounter Details Date Type Department Care Team (Latest Contact Info) Description 11/26/2022 2:33 PM CDT - 11/26/2022 11:59 PM CDT Hospital Encounter [facility] CT Scan [address] [place] [address] [place] [address] [facility] [address] [place] [address] Discharge Disposition: Home or Self [...] 10/21/2022 Fluticasone Furoate (FLONASE SENSIMIST) 27.5 mcg/actuation [place], Suspension Administer 2 Sprays in each nostril daily. 1 Gram 4 10/21/2022 losartan (COZAAR) 50 mg tablet Take 1 Tablet (50 mg) by mouth daily. 90 Tablet 3 09/24/2022 simvastatin (ZOCOR) 40 mg tabletIndications:Pure hypercholesterolemia Take 1 Tablet (40 mg) by mouth late in the day. 90 Tablet 3 09/16/2022 sod bicarb-sod chlor-neti pot ([place] Saline Nasal Neti Rinse) packet with rinse [...] 11/26/2022 3:00 PM CDT [facility] documented in this encounter Plan of Treatment [...] maxillary sinusitis DICTATION LOCATION: Location 1 - [facility] Narrative 11/26/2022 3:[address] SINUS [...] maxillary sinusitis DICTATION LOCATION: Location 1 - [facility] Kam Cardona MD CT ORDERABLES documented in this encounter Visit Diagnoses Diagnosis Chronic pansinusitis Other chronic sinusitis documented in this encounter
--- OUTSIDE RECORDS SUMMARY | 2024-08-19 13:52 | XMS_ITS | Encounter Summary ---
Author Organization [facility] Address [address] [facility] Attn: Epic Prelude ADT KAYE SCHMID [address] Care Team Providers Care Room Service Server Name Role Phone Unavailable Primary Care [...] Coronavirus/COVID-19? No / Unsure 07/21/2022 12:41 PM LUNCHROOM AIDE documented as of this encounter Plan of Treatment Not on file documented as of this encounter Visit Diagnoses Not on filedocumented in this encounter
--- OUTSIDE RECORDS SUMMARY | 2024-08-19 13:52 | XMS_ITS | Encounter Summary ---
Author Organization [facility] Address [address] [facility] Attn: Epic Prelude ADT KAYE SCHMID [address] Care Team Providers Care Case Checker Name Role Phone Unavailable Primary Care [...]
--- OUTSIDE RECORDS SUMMARY | 2024-08-19 13:52 | XMS_ITS | Encounter Summary ---
Author Organization [facility] Address [address] [place] [address] Care Team Providers Care Custodian Supervisor Name Role Phone Unavailable Primary Care [...]
--- OUTSIDE RECORDS SUMMARY | 2024-08-19 13:52 | XMS_ITS | Encounter Summary ---
Author Organization [facility] Address [address] [place] [address] Care Team Providers Care Metal Engineering Process Worker Name Role Phone Unavailable Primary Care Provider Unavailabl e Reason for Visit * Reason Onset Date Comments Review CT scan 12/01/2022 Encounter Details Date Type Department Care Team (Late st Contact Info) Description 12/01/2022 Telephone [facility] [address] [place] [address] [place] [address] [facility] [address] [place] [address] scan Social History [...]
--- OUTSIDE RECORDS SUMMARY | 2024-08-19 13:52 | XMS_ITS | Encounter Summary ---
Author Organization [facility] Address [address] [place] [address] Care Team Providers Care Imaging Engineer Name Role Phone Unavailable Primary Care Provider Unavailabl e Encounter Details Date Type Department Care Team (Late st Contact Info) Description 11/27/2022 Orders Only [facility] [address] [place] [address] [place] [id number] [place] [address] Social History Tobacco Use Types Packs/Day [...]
--- OUTSIDE RECORDS SUMMARY | 2024-08-19 13:52 | XMS_ITS | Encounter Summary ---
Author Organization [facility] Address [address] [facility] Attn: Epic Prelude ADT KAYE SCHMID [address] Care Team Providers Care Rag Sorter And Cutter Name Role Phone Unavailable Primary Care [...]
--- OUTSIDE RECORDS SUMMARY | 2024-08-19 13:52 | XMS_ITS | Encounter Summary ---
Author Organization [facility] Address [address] [place] [address] Care Team Providers Care Graduate Assistant Athletic Trainer Name Role Phone Unavailable Primary Care Provider Unavailabl e Reason for Visit * Reason Onset Date Comments Results 05/20/2022 Urine clx Encounter Details Date Type Department Care Team (Late st Contact Info) Description 05/20/2022 Telephone [facility] Family Medicine - [place] Yuan [address] [facility] [address] [place] [address] Ciro Fernandez, DO [address] [facility] [address] [place] [address] Results (Urine clx ) Social [...]
--- OUTSIDE RECORDS SUMMARY | 2024-08-19 13:53 | XMS_ITS | Encounter Summary ---
Author Organization [facility] Address [address] [place] [address] Care Team Providers Care Railroader Name Role Phone Unavailable Primary Care Provider Unavailabl e Reason for Visit * Reason Onset Date Comments Kidney Stone 05/26/2021 Encounter Details Date Type Department Care Team (Late st Contact Info) Description 05/26/2021 Telephone [facility] Family Medicine - [facility] Abundio Yuan [address] [facility] Abund[address] [place] [address] Ciro Fernandez, DO [address] [facility] [address] [place] [address] Kidney Stone Social History Tobacco [...]
--- OUTSIDE RECORDS SUMMARY | 2024-08-19 13:53 | XMS_ITS | Encounter Summary ---
Author Organization [facility] Address [address] [place] [address] Care Team Providers Care Reconnaissance Man Name Role Phone Unavailable Primary Care Provider Unavailabl e Reason for Visit * Reason Onset Date Comments Results 02/03/2021 Encounter Details Date Type Department Care Team (Late st Contact Info) Description 02/03/2021 Telephone [facility] Medicine - [facility] [address] [facility] [address] [place] [address] Ciro Fernandez, DO [address] [facility] [address] [place] [address] Results Social History Tobacco Use [...]
--- OUTSIDE RECORDS SUMMARY | 2024-08-19 13:53 | XMS_ITS | Encounter Summary ---
Author Organization [facility] Address [address] [place] [address] Care Team Providers Care Bank Guard Name Role Phone Unavailable Primary Care Provider Unavailabl e Reason for Visit * Reason Onset Date Comments Medication Refill 12/05/2020 Encounter Details Date Type Department Care Team (Late st Contact Info) Description 12/05/2020 Refill [facility] Family Medicine - [place] Yuan [address] [facility] [address] [place] [address] Ciro Fernandez, DO [address] [facility] [address] [place] [address] Pure hypercholesterolemia Social History Tobacco [...]
--- OUTSIDE RECORDS SUMMARY | 2024-08-19 13:53 | XMS_ITS | Encounter Summary ---
Author Organization [facility] Address [address] [place] [address] Care Team Providers Care Public Relations Manager Name Role Phone Unavailable Primary Care Provider Unavailabl e Reason for Visit * Reason Onset Date Comments Results 03/19/2021 stool card Encounter Details Date Type Department Care Team (Late st Contact Info) Description 03/19/2021 Telephone [facility] Family Medicine - [facility] Abundio Yuan [address] [facility] [address] [place] [address] Ciro Fernandez, DO [address] [facility] [address] [place] [address] Results (stool card ) Social [...]
--- OUTSIDE RECORDS SUMMARY | 2024-08-19 13:53 | XMS_ITS | Encounter Summary ---
Author Organization [facility] Address [address] [place] [address] Care Team Providers Care Roll Shop Supervisor Name Role Phone Unavailable Primary Care Provider Unavailabl e Reason for Visit * Reason Onset Date Comments Results 09/29/2021 Needs Appointment 09/29/2021 Encounter Details Date Type Department Care Team (Late st Contact Info) Description 09/29/2021 Telephone [facility] Family Medicine - [facility] Abundio Yuan [address] [facility] [address] [place] [address] Ciro Fernandez DO [address] [facility] [address] [place] [address] Results; Needs Appointment Social History [...] - 09/29/2021 1:50 PM CST Pt informed/sk ITY APPRAISER * Telephone Encounter - Leslie Reid - 09/29/2021 8:04 AM CST ----- Message from Ciro Fernandez DO sent at 09/28/2021 9:20 AM UTILITY APPRAISER ----- Your laboratory studies have been received and are overall normal. It is just time to schedule yourphysical and we will discuss further at your Well Adult Exam. ITY APPRAISER documented in this encounter Plan of Treatment Not on file documented as of this encounter Visit Diagnoses Not on filedocumented in this encounter
--- OUTSIDE RECORDS SUMMARY | 2024-08-19 13:53 | XMS_ITS | Encounter Summary ---
Author Organization [facility] Address [address] [place] [address] Care Team Providers Care Veneer Press Operator Name Role Phone Unavailable Primary Care Provider Unavailabl e Encounter Details Date Type Department Care Team (Late st Contact Info) Description 09/19/2020 [facility] - [facility] Abundio Yuan [address] [facility] [address] [place] [address] Ciro Fernandez, DO 107 [facility] [address] [place] [address] Social History Tobacco Use Types [...] COVID-19? No / Unsure 09/16/2020 10:36 AM WASHTUB WORKER HELPER documented as of this encounter Plan of Treatment Not on file documented as of this encounter Visit Diagnoses Not on filedocumented in this encounter
--- OUTSIDE RECORDS SUMMARY | 2024-08-19 13:53 | XMS_ITS | Encounter Summary ---
Author Organization [facility] Address [address] [place] [address] Care Team Providers Care Transportation Engineer Name Role Phone Unavailable Primary Care Provider Unavailabl e Reason for Referral * Eval and Treat (Routine) - Closed Specialty Diagnoses / Procedures Referred By Contac t Referred To Contact Otolaryngology Diagnoses Cough Ciro Fernandez DO [address] [place] [address] [facility] [place] [address] [place] [address] [address] [place] [address] Referral ID Status Reason Start Date Expiration Date V isits Requested Visits Authorized [id number] Closed CRS to Schedule 03/09/2022 03/09/2023 3 3 Reason for Visit * Reason Onset Date Comments cough over 8 month 03/09/2022 Encounter Details Date Type Department Care Team (Late Contact Info) Description 03/09/2022 Telephone [facility] Medicine - Bushra Yuan [address] [place] [address] Ciro Fernandez DO [address] [place] [address] cough over 8 month Social [...] 12:48 PM CDT Referral placed for ENT. Winkapp message sent. * Telephone Encounter - Samantha [...] Dr. Dexter for this Call back Number: [phone] documented in this encounter Plan of Treatment Scheduled Referrals Name Type Priority Associated Diagnoses Orde r Schedule AMB REFERRAL TO ENT Outpatient Referral Routine Cough Ordered: 03/09/2022 documented as of this encounter Visit Diagnoses Diagnosis Cough- Primary documented in this encounter
--- OUTSIDE RECORDS SUMMARY | 2024-08-19 13:53 | XMS_ITS | Encounter Summary ---
Author Organization [facility] Address [address] [place] [address] Care Team Providers Care Software Project Lead Name Role Phone Unavailable Primary Care Provider Unavailabl e Reason for Visit * Reason Comments Medication Refill Encounter Details Date Type Department Care Team (Late st Contact Info) Description 07/15/2020 Refill [facility] Medicine - Bushra Yuan [address] 107 [facility] Abundio [address] [place] [address] Ciro Fernandez, DO [address] [facility] [address] [place] [address] Social History Tobacco Use Types [...]
--- OUTSIDE RECORDS SUMMARY | 2024-08-19 13:53 | XMS_ITS | Encounter Summary ---
Author Organization [facility] Address [address] [place] [address] Care Team Providers Care Statistical Developer Name Role Phone Unavailable Primary Care Provider Unavailabl e Reason for Visit * Reason Comments Medication Refill Encounter Details Date Type Department Care Team (Late st Contact Info) Description 04/23/2020 Refill [facility] Medicine - [facility] Abundio Yuan [address] [facility] [address] [place] [address] Ciro Fernandez, DO [address] [facility] [address] [place] [address] ETD (Eustachian tube dysfunction), bilateral [...]
--- OUTSIDE RECORDS SUMMARY | 2024-08-19 13:53 | XMS_ITS | Encounter Summary ---
Author Organization [facility] Address [address] [place] [address] Care Team Providers Care Teacher Assistant Name Role Phone Unavailable Primary Care Provider Unavailabl e Reason for Visit * Reason Comments Hypertension chol,follow up labs Encounter Details Date Type Department Care Team (Latest Contact Info) Description 03/07/2021 9:30 AM CDT Office Visit [facility] Medicine - [facility] Abundio Yuan [address] [facility] [address] [place] [address] Ciro Fernandez, DO 107 [facility] [address] [place] [address] Pure hypercholesterolemia (Primary Dx); Essential [...] discuss further at your Well Adult Exam. WELDER PLASTICS documented in this encounter Plan of Treatment Not on file documented as of this encounter Procedures Procedure Name Priority Date/Time Associated Diagnosis Comments LIPID PANEL Routine 09/27/2021 8:47 AM HEAT WELDER PLASTICS Pure hypercholesterolem ia Essential hypertension, benign COMPREHENSIVE METABOLIC PANEL Routine 09/27/2021 8:47 AM HEAT WELDER PLASTICS Pure hypercholesterolem ia Essential hypertension, benign Prediabetes documented in this encounter Results * (ABNORMAL) COMPREHENSIVE METABOLIC PANEL (09/27/2021 8:47 AM HEAT WELDER PLASTICS) GLUCOSE 103(H) 65 - 99 mg/dL [facility] Comment: ? Fasting reference interval For someone without known diabetes, a glucose value between 100 and 125 mg/dL is consistent with prediabetes and should be confirmed with a follow-up test. BUN 17 7 - 25 mg/dL [facility] CREATININE 0.97 0.70 - 1.25 mg/dL [facility] Comment: For patients >49 years of age, the reference limit for Creatinine is approximately 13% higher for people identified as -Citizen Of [place]. GFR 79 > OR = 60 mL/min/1 [...] CLINIC CALCIUM 9.1 8.6 - 10.3 mg/dL [facility] TOTAL PROTEIN 6.9 6.1 - 8.1 g/dL [facility] ALBUMIN 4.2 3.6 - 5.1 g/dL [facility] GLOBULIN 2.7 1.9 - 3.7 g/dL (calc) [facility] ALBUMIN/GLOBULIN RATIO 1.6 1.0 - 2.5 (calc) [facility] BILIRUBIN TOTAL 0.7 0.2 - 1.2 mg/dL [facility] ALKALINE PHOSPHATASE 69 35 - 144 U/L [facility] AST 23 10 - 35 U/L [facility] ALT 29 9 - 46 U/L [facility] Comment: FASTING:YES FASTING: YES Test Performed at: [facility] [id number] [place] [address] ??[phone] Agus Valente D.O., MPH Blood 09/27/2021 8:47 AM HEAT WELDER PLASTICS 09/27/2021 8:48 AM HEAT WELDER PLASTICS Ciro Fernandez DO CHEMISTRY ORDERABLES [facility] [address] [place] [address] * (ABNORMAL) LIPID PANEL (09/27/2021 8:47 AM HEAT WELDER PLASTICS) CHOLESTEROL 136 <200 mg/dL [facility] HDL 39(L) > OR = 40 mg/dL [facility] TRIGLYCERIDE 91 <150 mg/dL [facility] LDL CALCULATED 80 mg/dL (calc) [facility] Comment: Reference range: <100 Desirable range <100 mg/dL for primary prevention; ?? <70 mg/dL for patients with CHD or diabetic patients with > or = 2 CHD risk factors. LDL-C is now calculated using the Michele-Neel calculation, which is a validated novel method providing better accuracy than the Friedewald equation in the estimation of LDL-C. Michele SS et al. JACIEL. 2013;310(19): 4756-1312 (http://education.Screwpulp.iNeed/faq/BJV306) CHOL/HDL RATIO 3.5 <5.0 (calc) [facility] TOTAL NON-HDL CHOL(LDL+VLDL) 97 <130 mg/dL (calc) [facility] Comment: For patients with diabetes plus 1 major ASCVD risk factor, treating to a non-HDL-C goal of <100 mg/dL (LDL-C of <70 mg/dL) is considered a therapeutic option. Test Performed at: [facility] [address] [place] ??[phone] Agus Valente D.O., MPH Blood 09/27/2021 8:47 AM HEAT WELDER PLASTICS 09/27/2021 8:48 AM HEAT WELDER PLASTICS Ciro Fernandez DO CHEMISTRY ORDERABLES [facility] [address] [place] [address] documented in this encounter Visit Diagnoses Diagnosis Pure hypercholesterolemia- Primary Essential hypertension, benign Prediabetes Other abnormal glucose Screening for colon cancer Special screening for malignant neoplasms, colon Gastroesophageal reflux disease, unspecified whether esophagitis present documented in this encounter
--- OUTSIDE RECORDS SUMMARY | 2024-08-19 13:53 | XMS_ITS | Encounter Summary ---
Author Organization [facility] Address [address] [place] [address] Care Team Providers Care Lacing Cutter Name Role Phone Unavailable Primary Care Provider Unavailabl e Reason for Visit * Reason Onset Date Comments Results 09/09/2020 labs Encounter Details Date Type Department Care Team (Late st Contact Info) Description 09/09/2020 Telephone [facility] Family Medicine - [facility] Abundio Yuan [address] [facility] [address] [place] [address] Ciro Fernandez DO [address] [facility] [address] [place] [address] Results (labs) Social History Tobacco [...] - 09/09/2020 9:53 AM CST PT INFORMED/SK E DIRECTOR * Telephone Encounter - Kay Jesus - 09/09/2020 9:13 AM CST ----- Message from Ciro Fernandez DO sent at 09/08/2020 9:00 AM HOUSE DIRECTOR ----- Your laboratory studies have been received, please return to office for a follow up examination specifically for a 30 minute visit because you are due for a WELL ADULT EXAMINATION. E DIRECTOR documented in this encounter Plan of Treatment Not on file documented as of this encounter Visit Diagnoses Not on filedocumented in this encounter
--- OUTSIDE RECORDS SUMMARY | 2024-08-19 13:53 | XMS_ITS | Encounter Summary ---
Author Organization [facility] Address [address] [place] [address] Care Team Providers Care Public Health Worker Name Role Phone Unavailable Primary Care Provider Unavailabl e Reason for Visit * Reason Comments Med Refill Encounter Details Date Type Department Care Team (Late st Contact Info) Description 03/28/2022 Refill [facility] Medicine - [facility] Abundio Yuan [address] [facility] [address] [place] [address] Ciro Fernandez, DO [address] [facility] [address] [place] [address] Social History Tobacco Use Types [...]
--- OUTSIDE RECORDS SUMMARY | 2024-08-19 13:53 | XMS_ITS | Encounter Summary ---
Author Organization [facility] Address [address] [place] [address] Care Team Providers Care Art Education Professor Name Role Phone Unavailable Primary Care Provider Unavailabl e Reason for Visit * Reason Comments Medication Refill Encounter Details Date Type Department Care Team (Late st Contact Info) Description 02/08/2021 Refill [facility] Medicine [facility] Kwabena [address] [facility] [address] [place] [address] Courtney Weeks PA-C [address] [place] [address] Cough Social History Tobacco Use [...]
--- OUTSIDE RECORDS SUMMARY | 2024-08-19 13:53 | XMS_ITS | Encounter Summary ---
Author Organization [facility] Address [address] [place] [address] Care Team Providers Care Slag Expander Name Role Phone Unavailable Primary Care Provider Unavailabl e Reason for Visit * Reason Onset Date Comments Medication Refill 09/26/2020 Encounter Details Date Type Department Care Team (Late st Contact Info) Description 09/26/2020 Refill [facility] Family Medicine - Bushra Yuan [address] [facility] [address] [place] [address] Ciro Fernandez, DO 107 [facility] [address] [place] [address] Social History Tobacco Use Types [...] COVID-19? No / Unsure 09/16/2020 10:36 AM MENTAL HEALTH DIRECTOR documented as of this encounter Plan of Treatment Not on file documented as of this encounter Visit Diagnoses Not on filedocumented in this encounter
--- OUTSIDE RECORDS SUMMARY | 2024-08-19 13:53 | XMS_ITS | Encounter Summary ---
Author Organization [facility] Address [address] [place] [address] Care Team Providers Care Light Rail Transit Operator Name Role Phone Unavailable Primary Care Provider Unavailabl e Reason for Visit * Reason Comments Annual Wellness Visit (Medicare) Chronic Conditions Coordination Encounter Details Date Type Department Care Team (Late st Contact Info) Description 10/10/2021 10:00 AM ASSISTANT HALL DIRECTOR Office Visit [facility] Family Medicine - [address] [place] [address] Samantha Vargas PA-C [address] [place] [address] Medicare annual wellness visit, subsequent [...] COVID-19? No / Unsure 10/10/2021 9:38 AM ASSISTANT HALL DIRECTOR documented as of this encounter Last Filed Vital Signs Vital Sign Reading Time Taken Comments Blood Pressure 130/74 10/10/2021 9:52 AM ASSISTANT HALL DIRECTOR Pulse 80 10/10/2021 9:52 AM ASSISTANT HALL DIRECTOR Temperature 36.4 ??C (97.5 ??F) 10/10/2021 9:52 AM CS T Respiratory Rate - - Oxygen Saturation - - Inhaled Oxygen Concentration - - Weight 91.4 kg (201 lb 6.4 oz) 10/10/2021 9:52 A M ASSISTANT HALL DIRECTOR Height 180.3 cm (5' 11 ) 10/10/2021 9:52 AM ASSISTANT HALL DIRECTOR Body Mass Index 28.09 10/10/2021 9:52 AM ASSISTANT HALL DIRECTOR documented in this encounter Progress Notes * [...] keeping follow-up appointments. All questions were answered. Iaggk-Rigqq-Teqkvvp will be provided to patient upon check-out. [...] the treatment plan. All questions were answered. Hkslh-Xoiyi-Mexjbwc provided to patient. ACUTE AND/OR CHRONIC ISSUES REQUIRING EVALUATION AND MANAGEMENT OUTSIDE THE WELLNESS VISIT (Provider only) Yes: Per E&M documentation: The 10-year ASCVD risk score (Montchaninamber NEGRETE Jr., et al., 2013) is: 18.4% [...] services include: Other continue with current regimen. STANT HALL DIRECTOR documented in this encounter Plan of [...] Creatinine, Urine 130 20 - 320 mg/dL [facility] MICROALBUMIN, URINE 0.6 See Note: [...] category. FASTING:YES FASTING: YES Test Performed at: [facility] [address] [place] ??[phone] Agus Valente D.O., MPH 04/25/2022 04/25/2022 8:4 6 AM CDT Samantha Vargas PA-C URINE ORDERAB LES Performing Organization Address [facility] Co de Phone Number [facility] [phone] [facility] [address] [place] [address] * PSA (04/25/2022 12:00 AM CDT) PSA 0.29 < OR = 4.00 ng/mL [facility] Comment: The total PSA value from [...] disease. FASTING:YES FASTING: YES Test Performed at: [facility] ??[phone] Agus Valente D.O., MPH Blood 04/25/2022 04/25/2022 8:4 6 AM CDT Samantha Vargas PA-C CHEMISTRY ORD ERABLES Performing Organization Address [facility] Co de Phone Number [facility] [phone] [facility] [address] [place] [address] * HEMOGLOBIN A1C (04/25/2022 12:00 AM CDT) HEMOGLOBIN A1C 5.6 <5.7 % of total Hgb [facility] Comment: For the purpose of screening for the presence of diabetes: <5.7% ? Consistent with the absence of diabetes 5.7-6.4% ?Consistent with increased risk for diabetes ?(prediabetes) > or =6.5% ??Consistent with diabetes This assay result is consistent with a decreased risk of diabetes. Currently, no consensus exists regarding use of hemoglobin A1c for diagnosis of diabetes in children. According to [place] Diabetes Association (ADA) guidelines, hemoglobin A1c <7.0% represents optimal control in non- diabetic patients. Different metrics may apply to specific patient populations. Standards of Medical Care in Diabetes(ADA). ?? ESTIMATED AVERAGE GLUCOSE (MG/DL) 114 mg/dL [facility] ESTIMATED AVERAGE GLUCOSE (MMOL/L) 6.3 mmol/L [facility] Comment: FASTING:YES FASTING: YES Test Performed at: [facility] [address] [place], [place] ??[address] NataleeIsauro Thi Vo Blood 04/25/2022 04/25/2022 8:4 6 AM CDT Samantha Vargas PA-C CHEMISTRY ORD ERABLES [facility] [phone] [facility] [place] [address] [place] [address] * (ABNORMAL) COMPREHENSIVE METABOLIC PANEL (04/25/2022 12:00 AM CDT) GLUCOSE 102(H) 65 - 99 mg/dL [facility] Comment: ? Fasting reference interval For someone without known diabetes, a glucose value between 100 and 125 mg/dL is consistent with prediabetes and should be confirmed with a follow-up test. BUN 11 7 - 25 mg/dL [facility] CREATININE 0.87 0.70 - 1.28 mg/dL [facility] GFR 93 > OR = 60 mL/min/1. 73m2 [facility] Comment: The eGFR is based on the CKD-EPI 2020 equation. To calculate the new eGFR from a previous Creatinine or Cystatin C result, go to https://www.kidney.org/professionals/ kdoqi/gfr%5Fcalculator BUN/CREAT RATIO NOT APPLICABLE (calc) [facility] SODIUM 138 135 - 146 mmol/L [facility] POTASSIUM 4.7 3.5 - 5.3 mmol/L [facility] CHLORIDE 103 98 - 110 mmol/L [facility] CO2 27 20 - 32 mmol/L [facility] CALCIUM 9.4 8.6 - 10.3 mg/dL [facility] TOTAL PROTEIN 7.0 6.1 - 8.1 g/dL [facility] ALBUMIN 4.1 3.6 - 5.1 g/dL [facility] GLOBULIN 2.9 1.9 - 3.7 g/dL (calc) [facility] ALBUMIN/GLOBULI N RATIO 1.4 1.0 - 2.5 (calc) [facility] BILIRUBIN TOTAL 0.7 0.2 - 1.2 mg/dL [facility] ALKALINE PHOSPHATASE 68 35 - 144 U/L [facility] AST 24 10 - 35 U/L [facility] ALT 28 9 - 46 U/L [facility] Comment: FASTING:YES FASTING: YES Test Performed at: [facility] [address] [place], [place] ??[address] Agus Valente D.O., MPH Blood 04/25/2022 04/25/2022 8:4 6 AM CDT Samantha Vargas PA-C CHEMISTRY ORD ERABLES [facility] [phone] [facility] [address] [place] [address] documented in this encounter Visit Diagnoses Diagnosis Medicare annual wellness visit, subsequent- Primary Routine general medical examination at a health care facility Pure hypercholesterolemia Prediabetes Other abnormal glucose Essential hypertension, benign Gastroesophageal reflux disease, unspecified whether esophagitis present Acute maxillary sinusitis, recurrence not specified Screening for malignant neoplasm of prostate documented in this encounter
--- OUTSIDE RECORDS SUMMARY | 2024-08-19 13:53 | XMS_ITS | Encounter Summary ---
Author Organization [facility] Address [address] [facility] Attn: Epic Prelude ADT KAYE SCHMID [address] Care Team Providers Care Qa Tester Name Role Phone Unavailable Primary Care [...] COVID-19? No / Unsure 09/16/2020 10:36 AM HOUSEKEEPER MANAGER documented as of this encounter Plan of Treatment Not on file documented as of this encounter Visit Diagnoses Not on filedocumented in this encounter
--- OUTSIDE RECORDS SUMMARY | 2024-08-19 13:53 | XMS_ITS | Encounter Summary ---
Author Organization [facility] Address [address] [place] [address] Care Team Providers Care Crisis Mental Health Therapist Name Role Phone Unavailable Primary Care Provider Unavailabl e Reason for Visit * Reason Comments Medication Refill Encounter Details Date Type Department Care Team (Late st Contact Info) Description 10/29/2021 Refill [facility] Medicine - [facility] Abundio Yuan [address] [facility] [address] [place] [address] Ciro Fernandez, DO 107 [facility] [address] [place] [address] Cough Social History Tobacco Use [...] COVID-19? No / Unsure 10/10/2021 9:38 AM SEWING MACHINE TESTER documented as of this encounter Plan of Treatment Not on file documented as of this encounter Visit Diagnoses Diagnosis Cough documented in this encounter
--- OUTSIDE RECORDS SUMMARY | 2024-08-19 13:53 | XMS_ITS | Encounter Summary ---
Author Organization [facility] Address [address] [facility] Attn: Epic Prelude ADT KAYE SCHMID [address] Care Team Providers Care Crystalizer Name Role Phone Unavailable Primary Care Provider [...] COVID-19? No / Unsure 10/02/2020 12:35 PM COMMERCIAL ASSISTANT documented as of this encounter Plan of Treatment Not on file documented as of this encounter Visit Diagnoses Not on filedocumented in this encounter
--- OUTSIDE RECORDS SUMMARY | 2024-08-19 13:53 | XMS_ITS | Encounter Summary ---
Author Organization [facility] Address [address] [place] [address] Care Team Providers Care Merchandise Supervisor Name Role Phone Unavailable Primary Care Provider Unavailabl e Reason for Visit * Reason Onset Date Comments Medication Refill 02/26/2021 Encounter Details Date Type Department Care Team (Late st Contact Info) Description 02/26/2021 Refill [facility] Family Medicine - Bushra Yuan [address] 107 [facility] [address] [place] [address] Ciro Fernandez, DO 107 [facility] [address] [place] [address] Pure hypercholesterolemia Social History Tobacco [...]
--- OUTSIDE RECORDS SUMMARY | 2024-08-19 13:53 | XMS_ITS | Encounter Summary ---
Author Organization [facility] Address [address] [place] [address] Care Team Providers Care Visual Presentation Manager Name Role Phone Unavailable Primary Care Provider Unavailabl e Reason for Visit * Reason Comments Medication Refill Encounter Details Date Type Department Care Team (Late st Contact Info) Description 04/26/2020 Refill [facility] Medicine [facility] Kw[address]ena [address] [facility] [address] [place] [address] Courtney Weeks PA-C [address] [place] [address] Cough Social History Tobacco Use [...]
--- OUTSIDE RECORDS SUMMARY | 2024-08-19 13:53 | XMS_ITS | Encounter Summary ---
Author Organization [facility] Address [address] [place] [address] Care Team Providers Care Beverage Steward Name Role Phone Unavailable Primary Care Provider Unavailabl e Reason for Visit * Reason Comments Physical Encounter Details Date Type Department Care Team (Late st Contact Info) Description 09/16/2020 11:00 AM DRIER AND EVAPORATOR OPERATOR Office Visit [facility] - [facility] [address] [facility] [address] [place] [address] Ciro Fernandez, DO [address] [facility] [address] [place] [address] Medicare annual wellness visit, subsequent [...] COVID-19? No / Unsure 09/16/2020 10:36 AM DRIER AND EVAPORATOR OPERATOR documented as of this encounter Last Filed Vital Signs Vital Sign Reading Time Taken Comments Blood Pressure 136/72 09/16/2020 10:38 AM DRIER AND EVAPORATOR OPERATOR Pulse 68 09/16/2020 10:38 AM DRIER AND EVAPORATOR OPERATOR Temperature 36.3 ??C (97.4 ??F) 09/16/2020 10:[address] Respiratory Rate - - Oxygen Saturation - - Inhaled Oxygen Concentration - - Weight 95.7 kg (211 lb) 09/16/2020 10:38 AM DRIER AND EVAPORATOR OPERATOR Height 180.3 cm (5' 11 ) 09/16/2020 10:38 AM DRIER AND EVAPORATOR OPERATOR Body Mass Index 29.43 09/16/2020 10:38 AM DRIER AND EVAPORATOR OPERATOR documented in this encounter Progress Notes [...] screen/ and home safety evaluation None Social Support/Hemphill: Patient resides with spouse in private home. [...] keeping follow-up appointments. All questions were answered. Gkhmb-Vnulk-Oozbdhk will be provided to patient upon check-out. [...] care services include: Start or continue aspirin. R AND EVAPORATOR OPERATOR documented in this encounter Plan of [...] PSA 0.3 < OR = 4.0 ng/mL [facility] Comment: The total PSA value from this [...] disease. FASTING:YES FASTING: YES Test Performed at: [facility] [address] [place] ??[phone] Agus Valente D.O., MPH Blood 02/01/2021 8:28 AM CDT Ciro Fernandez DO CHEMISTRY ORDERABLES COM Performing Organization Address [facility] de Phone Number [facility] [address] [place] [address] * MICROALBUMIN/CREATININE RATIO, RANDOM UR (02/01/2021 8:28 AM CDT) Creatinine, Urine 95 20 - 320 mg/dL [facility] MICROALBUMIN, URINE 0.3 See Note: mg/dL [facility] Comment: Reference Range: Reference Range Not established MICROALBUMIN/CREAT RATIO, UR 3 <30 mcg/mg creat [facility] Comment: The ADA defines abnormalities in albumin excretion as follows: Category ? Result (mcg/mg creatinine) Normal ?<30 Microalbuminuria ? 30-299 Clinical albuminuria ?? > OR = 300 The ADA recommends that at least two of three specimens collected within a 3-6 month period be abnormal before considering a patient to be within a diagnostic category. Test Performed at: [facility] [address] [place] ??[phone] Agus Valente D.O., MPH Urine URINE SPECIMEN OBTAINED BY CLEAN CATCH PROCEDURE / Unknown 02/01/2021 8:28 AM CDT Ciro Fernandez DO URINE ORDERABLES Performing Organization Address [facility] de Phone Number [facility] [address] [place] [address] * (ABNORMAL) COMPREHENSIVE METABOLIC PANEL (02/01/2021 8:28 AM CDT) Pathologist [facility] GLUCOSE 100(H) 65 - 99 mg/dL [facility] Comment: ? Fasting reference interval For someone without known diabetes, a glucose value between 100 and 125 mg/dL is consistent with prediabetes and should be confirmed with a follow-up test. BUN 13 7 - 25 mg/dL [facility] CREATININE 0.93 0.70 - 1.25 mg/dL [facility] Comment: For patients >49 years of age, the reference limit for Creatinine is approximately 13% higher for people identified as -Japanese. GFR 84 > OR = 60 mL/min/1 .73m2 [facility] GFR, 97 > OR = 60 mL/min/1 .73m2 [facility] BUN/CREAT RATIO NOT APPLICABLE 6 - 22 (calc) [facility] SODIUM 141 135 - 146 mmol/L [facility] POTASSIUM 4.5 3.5 - 5.3 mmol/L [facility] CHLORIDE 103 98 - 110 mmol/L [facility] CO2 30 20 - 32 mmol/L [facility] CALCIUM 9.4 8.6 - 10.3 mg/dL [facility] TOTAL PROTEIN 6.9 6.1 - 8.1 g/dL [facility] ALBUMIN 4.3 3.6 - 5.1 g/dL [facility] GLOBULIN 2.6 1.9 - 3.7 g/dL (calc) [facility] ALBUMIN/GLOBULIN RATIO 1.7 1.0 - 2.5 (calc) [facility] BILIRUBIN TOTAL 1.0 0.2 - 1.2 mg/dL [facility] ALKALINE PHOSPHATASE 74 35 - 144 U/L [facility] AST 23 10 - 35 U/L [facility] ALT 30 9 - 46 U/L [facility] Comment: Test Performed at: [facility] [id number] [place] [address] ??[phone] Agus Valente D.O., MPH Blood 02/01/2021 8:28 AM CDT Ciro Fernandez DO CHEMISTRY ORDERABLES [facility] [address] [place] [address] * LIPID PANEL (02/01/2021 8:28 AM CDT) CHOLESTEROL 134 <200 mg/dL [facility] HDL 40 > OR = 40 mg/dL [facility] TRIGLYCERIDE 134 <150 mg/dL [facility] LDL CALCULATED 72 mg/dL (calc) [facility] Comment: Reference range: <100 Desirable range <100 mg/dL for primary prevention; ?? <70 mg/dL for patients with CHD or diabetic patients with > or = 2 CHD risk factors. LDL-C is now calculated using the Steve calculation, which is a validated novel method providing better accuracy than the Friedewald equation in the estimation of LDL-C. Michele ELLIS et al. JACIEL. 2013;310(19): 1589-7342 (http://education.Get Satisfaction/faq/TMV559) CHOL/HDL RATIO 3.4 <5.0 (calc) [facility] TOTAL NON-HDL CHOL(LDL+VLDL) 94 <130 mg/dL (calc) [facility] Comment: For patients with diabetes plus 1 major ASCVD risk factor, treating to a non-HDL-C goal of <100 mg/dL (LDL-C of <70 mg/dL) is considered a therapeutic option. Test Performed at: [facility] [address] [place] ??[phone] Agus Valente D.O., MPH Blood 02/01/2021 8:28 AM CDT Ciro Fernandez DO CHEMISTRY ORDERABLES Performing Organization Address [facility] Co de Phone Number [facility] [address] [place] [address] * HEMOGLOBIN A1C (02/01/2021 8:28 AM CDT) HEMOGLOBIN A1C 5.6 <5.7 % of total Hgb [facility] Comment: Test Performed at: [facility] [address] [place], [place] ??[phone] Concepción Crowder Blood 02/01/2021 8:28 AM CDT Ciro Fernandez DO CHEMISTRY ORDERABLES Performing Organization Address [facility] Co de Phone Number [facility] [address] [place] [address] documented in this encounter Visit Diagnoses Diagnosis [...]
--- OUTSIDE RECORDS SUMMARY | 2024-08-19 13:53 | XMS_ITS | Encounter Summary ---
Author Organization [facility] Address [address] [place] [address] Care Team Providers Care Veterinary X Ray Operator Name Role Phone Unavailable Primary Care Provider Unavailabl e Reason for Visit * Reason Onset Date Comments Results 04/27/2022 labs Encounter Details Date Type Department Care Team (Late st Contact Info) Description 04/27/[address] [facility] Medicine - Bushra Yuan [address] [facility] [address] [place] [address] Ciro Fernandez, DO [address] [facility] [address] [place] [address] Results (labs) Social History Tobacco [...]
--- OUTSIDE RECORDS SUMMARY | 2024-08-19 13:53 | XMS_ITS | Encounter Summary ---
Author Organization [facility] Address [address] [place] [address] Care Team Providers Care Private Branch Exchange Repairer Name Role Phone Unavailable Primary Care Provider Unavailabl e Reason for Visit * Reason Comments Medication Refill Encounter Details Date Type Department Care Team (Late st Contact Info) Description 09/21/2021 Refill [facility] Medicine - [facility] Abundio Yuan [address] [facility] [address] [place] [address] Ciro Fernandez, DO [address] [place] [address] Social History Tobacco Use Types [...]
--- OUTSIDE RECORDS SUMMARY | 2024-08-19 13:53 | XMS_ITS | Encounter Summary ---
Author Organization [facility] Address [address] [place] [address] Care Team Providers Care Physical Integration Practitioner Name Role Phone Unavailable Primary Care Provider Unavailabl e Reason for Visit * Reason Onset Date Comments Medication Refill 11/13/2020 Encounter Details Date Type Department Care Team (Late st Contact Info) Description 11/13/2020 Refill [facility] Family Medicine - [facility] [address]ena [address] [facility] [address] [place] [address] Courtney Weeks PA-C [address] [place] [address] Cough Social History Tobacco Use [...]
--- OUTSIDE RECORDS SUMMARY | 2024-08-19 13:53 | XMS_ITS | Encounter Summary ---
Author Organization [facility] Address [address] [place] [address] Care Team Providers Care Cash Sales Audit Clerk Name Role Phone Unavailable Primary Care Provider Unavailabl e Reason for Visit * Reason Onset Date Comments Medication Refill 09/19/2020 Encounter Details Date Type Department Care Team (Late st Contact Info) Description 09/19/[address] [facility] Family Medicine - [facility] Abundio Yuan [address] [place] [address] Ciro Fernandez, DO [address] [facility] [address] [place] [address] ETD (Eustachian tube dysfunction), bilateral [...] COVID-19? No / Unsure 09/16/2020 10:36 AM COUNTERINTELLIGENCE/HUMINT SPECIALIST documented as of this encounter Plan of Treatment Not on file documented as of this encounter Visit Diagnoses Diagnosis ETD (Eustachian tube dysfunction), bilateral documented in this encounter
--- OUTSIDE RECORDS SUMMARY | 2024-08-19 13:53 | XMS_ITS | Encounter Summary ---
Author Organization [facility] Address [address] [place] [address] Care Team Providers Care Director Of Residence Life Name Role Phone Unavailable Primary Care Provider Unavailabl e Reason for Visit * Reason Comments Medication Refill Encounter Details Date Type Department Care Team (Late st Contact Info) Description 09/26/2020 Refill [facility] Medicine - [facility] Abundio Yuan [address] [place] [address] Ciro Fernandez, DO [address] [facility] [address] [place] [address] Social History Tobacco Use Types [...] COVID-19? No / Unsure 09/16/2020 10:36 AM DRILLER BRAKE LINING documented as of this encounter Plan of Treatment Not on file documented as of this encounter Visit Diagnoses Not on filedocumented in this encounter
--- OUTSIDE RECORDS SUMMARY | 2024-08-19 13:53 | XMS_ITS | Encounter Summary ---
Author Organization [facility] Address [address] [place] [address] Care Team Providers Care Stringed Instrument Tuner Name Role Phone Unavailable Primary Care Provider Unavailabl e Encounter Details Date Type Department Care Team (Late st Contact Info) Description 10/10/2021 Abstract [facility] Medicine - [facility] Abundio Yuan [address] [facility] [address] [place] [address] Ciro Fernandez, DO [address] [facility] [address] [place] [address] Social History Tobacco Use Types [...] COVID-19? No / Unsure 10/10/2021 9:38 AM HEAVY EQUIPMENT PLUMBING SUPERVISOR documented as of this encounter Plan of Treatment Not on file documented as of this encounter Visit Diagnoses Not on filedocumented in this encounter
--- OUTSIDE RECORDS SUMMARY | 2024-08-19 13:53 | XMS_ITS | Encounter Summary ---
Author Organization [facility] Address [address] [facility] Attn: Epic Prelude ADT KAYE SCHMID [address] Care Team Providers Care Forest Economist Name Role Phone Unavailable Primary Care Provider [...]
--- OUTSIDE RECORDS SUMMARY | 2024-08-19 13:53 | XMS_ITS | Encounter Summary ---
Author Organization [facility] Address [address] [place] [address] Care Team Providers Care Forestry Technical Officer Name Role Phone Unavailable Primary Care Provider Unavailabl e Reason for Visit * Reason Onset Date Comments Medication Refill 05/11/2020 Encounter Details Date Type Department Care Team (Late st Contact Info) Description 05/11/2020 Refill [facility] Family Medicine - Bushra Yuan [address] [place] [address] Ciro Fernandez, DO [address] [facility] [address] [place] [address] Social History Tobacco Use Types [...]
--- OUTSIDE RECORDS SUMMARY | 2024-08-19 13:53 | XMS_ITS | Encounter Summary ---
Author Organization [facility] Address [address] [facility] Attn: Epic Prelude ADT KAYE SCHMID [address] Care Team Providers Care Tangled Yarn Spool Straightener Name Role Phone Unavailable Primary Care [...] COVID-19? No / Unsure 09/09/2020 9:54 AM BUSINESS SYSTEMS ADMINISTRATOR documented as of this encounter Plan of Treatment Not on file documented as of this encounter Visit Diagnoses Not on filedocumented in this encounter
--- OUTSIDE RECORDS SUMMARY | 2024-08-19 13:53 | XMS_ITS | Encounter Summary ---
Author Organization [facility] Address [address] [place] [address] Care Team Providers Care Warehouse Order Picker Name Role Phone Unavailable Primary Care Provider Unavailabl e Reason for Visit * Reason Onset Date Comments Medication Refill 07/14/2021 Encounter Details Date Type Department Care Team (Late st Contact Info) Description 07/14/2021 Refill [facility] Family Medicine - Bushra Yuan [address] [place] [address] Ciro Fernandez, DO [address] [facility] [address] [place] [address] Essential hypertension, benign Social History [...]
--- OUTSIDE RECORDS SUMMARY | 2024-08-19 13:53 | XMS_ITS | Encounter Summary ---
Author Organization [facility] Address [address] [place] [address] Care Team Providers Care Nurse College Name Role Phone Unavailable Primary Care Provider Unavailabl e Reason for Visit * Reason Comments Medication Refill Encounter Details Date Type Department Care Team (Late st Contact Info) Description 07/30/2021 Refill [facility] Medicine - Bushra Yuan [address] [facility] Abundio [address] [place] [address] Ciro Fernandez, DO [address] [facility] [place] [facility] [address] [place] [address] Cough Social History Tobacco Use [...]
--- OUTSIDE RECORDS SUMMARY | 2024-08-19 13:53 | XMS_ITS | Encounter Summary ---
Author Organization [facility] Address [address] [facility] Attn: Epic Prelude ADT KAYE SCHMID [address] Care Team Providers Care Valve Inspector Name Role Phone Unavailable Primary Care [...]
--- OUTSIDE RECORDS SUMMARY | 2024-08-19 13:53 | XMS_ITS | Encounter Summary ---
Author Organization [facility] Address [address] [place] [address] Care Team Providers Care Sap Ppm Consultant Name Role Phone Unavailable Primary Care Provider Unavailabl e Reason for Visit * Reason Comments Medication Refill Encounter Details Date Type Department Care Team (Late st Contact Info) Description 04/27/2021 Refill [facility] Medicine - Bushra Yuan [address] [facility] Abundio [address] [place] [address] Ciro Fernandez, DO [address] [address] [place] [address] Social History Tobacco Use Types [...]
--- OUTSIDE RECORDS SUMMARY | 2024-08-19 13:53 | XMS_ITS | Encounter Summary ---
Author Organization [facility] Address [address] [place] [address] Care Team Providers Care Chemical Process Project Engineer Name Role Phone Unavailable Primary Care Provider Unavailabl e Reason for Visit * Reason Onset Date Comments [facility] Data [facility]st 01/31/2022 Encounter Details Date Type Department Care Team (Late st Contact Info) Description 01/31/2022 Telephone [facility] [id number] [place] [phone] Leslie Reece, RN [facility] Data Analyst Social History Tobacco Use Types Packs/Day Years [...] CDT vAcute Interaction Note: Service Line: [facility] Data Analyst Chief Complaint: Covid + yesterday onset symptoms [...] For your fever - 1000mg Tylenol recommended B0wdhxi (MAX 3000mg) If not contraindicated you may alternate with Ibuprofen 400mg Q3qaxmn. You may also use the following 1. [...]
--- OUTSIDE RECORDS SUMMARY | 2024-08-19 13:53 | XMS_ITS | Encounter Summary ---
Author Organization [facility] Address [address] [place] [address] Care Team Providers Care Carton Folder Name Role Phone Unavailable Primary Care Provider Unavailabl e Reason for Visit * Reason Comments Medication Refill Encounter Details Date Type Department Care Team (Late st Contact Info) Description 07/10/2021 Refill [facility] Medicine - Bushra Yuan [address] [facility] Abundio [address] [place] [address] Ciro Fernandez, DO [address] [facility] [address] [place] [address] Social History Tobacco Use Types [...]
--- OUTSIDE RECORDS SUMMARY | 2024-08-19 13:53 | XMS_ITS | Encounter Summary ---
Author Organization [facility] Address [address] [place] [address] Care Team Providers Care Plastic Printer Name Role Phone Unavailable Primary Care Provider Unavailabl e Reason for Visit * Reason Onset Date Comments Results 10/04/2020 pathology Encounter Details Date Type Department Care Team (Late st Contact Info) Description 10/04/2020 Telephone [facility] Family Medicine - [facility] Abundio Yuan [address] [facility] [address] [place] [address] Ciro Fernandez, DO [address] [facility] [address] [place] [address] Results (pathology) Social History Tobacco [...] COVID-19? No / Unsure 10/02/2020 12:35 PM BRIDGE/STRUCTURE INSPECTION TEAM LEADER documented as of this encounter Miscellaneous Notes * Telephone Encounter - Kay Jesus - 10/04/2020 12:31 PM CST Patient notified and understands. GE/STRUCTURE INSPECTION TEAM LEADER * Telephone Encounter - Kay Jesus - 10/04/2020 12:26 PM CST ----- Message from Ciro Fernandez DO sent at 10/04/2020 11:57 AM BRIDGE/STRUCTURE INSPECTION TEAM LEADER ----- Pathology of the biopsy of your skin showed a seborrheic keratosis that was inflamed. This is benign, not a cancer. Continue with recommendations including possibly cryo desiccation if needed. GE/STRUCTURE INSPECTION TEAM LEADER documented in this encounter Plan of Treatment Not on file documented as of this encounter Visit Diagnoses Not on filedocumented in this encounter
--- OUTSIDE RECORDS SUMMARY | 2024-08-19 13:53 | XMS_ITS | Encounter Summary ---
Author Organization [facility] Address [address] [facility] Attn: Epic Prelude ADT KAYE SCHMID [address] Care Team Providers Care Turntable Worker Name Role Phone Unavailable Primary Care [...]
--- OUTSIDE RECORDS SUMMARY | 2024-08-19 13:53 | XMS_ITS | Encounter Summary ---
Author Organization [facility] Address [address] [place] [address] Care Team Providers Care Patent Clerk Name Role Phone Unavailable Primary Care Provider Unavailabl e Reason for Visit * Reason Comments Med Refill Encounter Details Date Type Department Care Team (Late st Contact Info) Description 04/27/2022 Refill [facility] Medicine - [facility] Abundio Yuan [address] [facility] [address] [place] [address] Ciro Fernandez, DO [address] [facility] [place] [address] Cough Social History Tobacco Use [...]
--- OUTSIDE RECORDS SUMMARY | 2024-08-19 13:53 | XMS_ITS | Encounter Summary ---
Author Organization [facility] Address [address] [place] [address] Care Team Providers Care Lard Refiner Name Role Phone Unavailable Primary Care Provider Unavailabl e Reason for Visit * Reason Onset Date Comments Medication Refill 03/28/2022 Encounter Details Date Type Department Care Team (Late st Contact Info) Description 03/28/2022 Refill [facility] Family Medicine - Bushra Yuan [address] [facility] [address] [place] [address] Ciro Fernandez, DO [address] [facility] [address] [place] [address] Social History Tobacco Use Types [...]
--- OUTSIDE RECORDS SUMMARY | 2024-08-19 13:53 | XMS_ITS | Encounter Summary ---
Author Organization [facility] Address [address] [place] [address] Care Team Providers Care Security Trainer Name Role Phone Unavailable Primary Care Provider Unavailabl e Reason for Visit * Reason Onset Date Comments Medication Refill 05/08/2021 Encounter Details Date Type Department Care Team (Late st Contact Info) Description 05/08/2021 Refill [facility] Family Medicine - Bushra Yuan [address] [facility] Abundio [address] [place] [address] Ciro Fernandez, DO [address] [facility] [address] [place] [address] Cough Social History Tobacco Use [...]
--- OUTSIDE RECORDS SUMMARY | 2024-08-19 13:53 | XMS_ITS | Encounter Summary ---
Author Organization [facility] Address [address] [facility] Attn: Epic Prelude ADT KAYE SCHMID [address] Care Team Providers Care Tour Narrator Name Role Phone Unavailable Primary Care Provider [...] COVID-19? No / Unsure 10/10/2021 9:38 AM SENIOR UI DEVELOPER documented as of this encounter Plan of Treatment Not on file documented as of this encounter Visit Diagnoses Not on filedocumented in this encounter
--- OUTSIDE RECORDS SUMMARY | 2024-08-19 13:53 | XMS_ITS | Encounter Summary ---
Author Organization [facility] Address [address] [place] [address] Care Team Providers Care Dining Car Waiter/Waitress Name Role Phone Unavailable Primary Care Provider Unavailabl e Reason for Visit * Reason Comments Cough Tickle in throat Encounter Details Date Type Department Care Team ([facility] st Contact Info) Description 01/06/2022 11:30 AM CDT Office Visit [facility] Family Medicine - Bushra Yuan [address] [facility] Lilia [address] [place] [address] Ciro Fernandez, DO [address] [facility] [address] [place] [address] Cough (Primary Dx) Social History [...]
--- OUTSIDE RECORDS SUMMARY | 2024-08-19 13:53 | XMS_ITS | Encounter Summary ---
Author Organization [facility] Address [address] [place] [address] Care Team Providers Care Swimming Pool Maintenance Supervisor Name Role Phone Unavailable Primary Care Provider Unavailabl e Reason for Visit * Reason Comments Biopsy Encounter Details Date Type Department Care Team (Latest Contact Info) Description 10/02/2020 1:00 PM STATE GAME PROTECTOR Procedure visit [facility] Medicine - [facility] [address] [facility] [address] [place] [address] Ciro Fernandez, DO [address] [facility] [address] [place] [address] Neoplasm of uncertain behavior (Primary [...] COVID-19? No / Unsure 10/02/2020 12:35 PM STATE GAME PROTECTOR documented as of this encounter Last Filed Vital Signs Vital Sign Reading Time Taken Comments Blood Pressure 132/76 10/02/2020 1:04 PM STATE GAME PROTECTOR Pulse 80 10/02/2020 1:04 PM STATE GAME PROTECTOR Temperature 36.4 ??C (97.6 ??F) 10/02/2020 1:04 PM CS T Respiratory Rate - - Oxygen Saturation - - Inhaled Oxygen Concentration - - Weight 95.7 kg (211 lb) 10/02/2020 1:04 PM STATE GAME PROTECTOR Height 180.3 cm (5' 11 ) 10/02/2020 1:04 PM STATE GAME PROTECTOR Body Mass Index 29.43 10/02/2020 1:04 PM STATE GAME PROTECTOR documented in this encounter Progress Notes * [...] this visit: Neoplasm of uncertain behavior - ND TANGENTIAL BIOPSY SKIN SINGLE LESION - PATHOLOGY; [...] modifications including weight loss and daily exercise. E GAME PROTECTOR documented in this encounter Plan of Treatment Not on file documented as of this encounter Procedures Procedure Name Priority Date/Time Associated Diagnosis Comments PATHOLOGY Routine 10/02/2020 1:06 PM STATE GAME PROTECTOR Neoplasm of uncertain behavior documented in this encounter Results * PATHOLOGY (10/02/2020 1:06 PM STATE GAME PROTECTOR) CASE REPORT Surgical Pathology Report ? Case: [id number] ? Authorizing Provider: ??Ciro Fernandez, ?Collected: ? 10/02/2020 01:06 PM ? Ordering Location: ? [facility] ?Received: ?10/03/2020 07:15 AM ? [facility] - [facility] [address] ? [address] ? Pathologist: ? Landry Klein MD ? Specimen: ?Nose, right ? 10/04/2020 11:46 AM [facility] FINAL DIAGNOSIS Skin, right nose, shave biopsy: - Seborrheic keratosis, inflamed. 10/04/2020 11:46 AM [facility] S DESCRIPTION Received in one container [...] is also entirely submitted in cassette A1. [facility] 10/04/2020 11:46 AM [facility] MICROSCOPIC DESCRIPTION The slides are labeled [id number] and Brendon Aldana. The right nose shave biopsy shows an acanthotic lesion with papillomatosis and hyperkeratosis. There is patchy lymphocytic inflammation in the dermis. 10/04/2020 11:46 AM [facility] OPERATIVE PROCEDURE shave biopsy 10/04/2020 11:46 AM [facility] CLINICAL INFORMATION D48.9 - Neoplasm of uncertain behavior [ICD-10-CM] 10/04/2020 11:46 AM STATE GAME PROTECTOR [facility] COMMENT Special stain and/or immunohistochemical results are interpreted with controls that demonstrate appropriate staining reactions. Note on use of immunocytochemistry reagents: This test was developed and its performance characteristics determined by [facility], Department of Laboratory Medicine. It has [...] part or completely in the following laboratories: [facility], CLIA #[id number] [address] [place] [address] [facility], CLIA #[id number] [address] [place] [address] [facility], CLIA #[id number] [address] [place] [address]. 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
--- OUTSIDE RECORDS SUMMARY | 2024-08-19 13:53 | XMS_ITS | Encounter Summary ---
Author Organization [facility] Address [address] [place] [address] Care Team Providers Care Nuclear Auxiliary Operator Name Role Phone Unavailable Primary Care Provider Unavailabl e Reason for Visit * Reason Onset Date Comments FYI- pressure in throat, cough, throat clearing 01/02/2022 Encounter Details Date Type Department Care Team (Late st Contact Info) Description 01/02/2022 Telephone [facility] Medicine - [facility] Lilia Yuan [address] [facility] [address] [place] [address] Ciro Fernandez, DO [address] [facility] [address] [place] [address] FYI- pressure in throat, cough, [...] or if they worsen Call back Number: [phone] (home) [phone] (work) no need to call at this time documented in this encounter Plan of Treatment Not on file documented as of this encounter Visit Diagnoses Not on filedocumented in this encounter
--- OUTSIDE RECORDS SUMMARY | 2024-08-19 13:53 | XMS_ITS | Encounter Summary ---
Author Organization [facility] Address [address] [facility] Attn: [place] [address] Care Team Providers Care Edge Grinder Name Role Phone Unavailable Primary Care Provider Unavailabl e Encounter Details Date Type Department Care Team (Late st Contact Info) Description 03/08/2021 Orders Only Initial Department [address] [facility] ATTN: [place] [address] Provider, Historical Social History Tobacco Use Types [...] COLORECTAL SCREEN (03/08/2021 12:00 AM CDT) Pathologist [facility] FECAL GLOBIN [facility] Comment: ??FECAL GLOBIN BY IMMUNOCHEMISTRY ?Micro Number: ?[id number] ??Test Status: ? Final ??Specimen Source: ?? Insure (tm) fobt test card ??Specimen Quality: ??Adequate ??Fecal Globin: ?Not Detected FASTING: UNKNOWN Test Performed at: [facility] ??[id number] Agus Valente D.O., MPH 03/08/2021 03/16/2021 4:0 7 PM CDT Ciro Fernandez DO BODY FLUIDS AND STOO [address] [place] [address] [place] [address] documented in this encounter Visit Diagnoses Not on filedocumented in this encounter
--- OUTSIDE RECORDS SUMMARY | 2024-08-19 13:53 | XMS_ITS | Encounter Summary ---
Author Organization [facility] Address [address] [facility] Attn: Epic Prelude ADT [place] [address] Care Team Providers Care Neuropsychology Division Chief Name Role Phone Unavailable Primary Care [...]
--- OUTSIDE RECORDS SUMMARY | 2024-08-19 13:54 | XMS_ITS | Encounter Summary ---
Author Organization [facility] Address [address] [place] [address] Care Team Providers Care Conveyor Technician Name Role Phone Unavailable Primary Care Provider Unavailabl e Reason for Visit * Reason Comments Ear Pain Encounter Details Date Type Department Care Team (Late st Contact Info) Description 04/01/2020 3:30 PM CDT Office Visit [facility] Medicine - [facility] [address] [facility] [address] [place] [address] Ciro Fernandez, DO [address] [facility] [address] [place] [address] ETD (Eustachian tube dysfunction), bilateral [...] denies hearing loss, tinnitus. OTC pain reliever/fever yard coupler has been helpful. Negative Sick Contacts Review [...] continue with Flonase Rest OTC pain reliever/fever yard coupler as needed Discussed Risks, Benefits and Alternatives [...]
--- OUTSIDE RECORDS SUMMARY | 2024-08-19 13:54 | XMS_ITS | Encounter Summary ---
Author Organization [facility] Address [address] [place] [address] Care Team Providers Care School Social Worker Name Role Phone Unavailable Primary Care Provider Unavailabl e Reason for Visit * Reason Comments Knee Pain right side x5 days Encounter Details Date Type Department Care Team (Late st Contact Info) Description 01/02/2020 11:00 AM CDT Office Visit [facility] Medicine - [facility] [address], [address] [place] [address] Ciro Fernandez, DO [address] [facility] [address] [place] [address] Acute pain of right knee [...]
--- OUTSIDE RECORDS SUMMARY | 2024-08-19 13:54 | XMS_ITS | Encounter Summary ---
Author Organization [facility] Address [address] [place] [address] Care Team Providers Care Training And Development Coordinator Name Role Phone Unavailable Primary Care Provider Unavailabl e Reason for Referral * MRI (Routine) - Closed Specialty Diagnoses / Procedures Referred By Contac t Referred To Contact Diagnoses Chronic pain of right knee Abnormal x-ray of knee Procedures MRI KNEE WO CONTRAST RIGHT Ciro Fernandez DO [address] [place] [address] Referral ID Status Reason Start Date Expiration Date V isits Requested Visits Authorized [id number] Closed [facility] CTS 01/08/2020 03/07/2020 1 1 Reason for Visit * Reason Onset Date Comments Results 01/03/2020 xray Encounter Details Date Type Department Care Team (Late st Contact Info) Description 01/03/2020 Telephone [facility] - [facility] [address], [address] [place] [address] Ciro Fernandez DO [address] [place] [address] Results (xray) Social History Tobacco [...] Chondromalacia patella. DICTATION LOCATION: Location 1 - [facility] 01/15/2020 4:46 PM CDT MRI KNEE [...] Chondromalacia patella. DICTATION LOCATION: Location 1 - [facility] Ciro Fernandez DO MR ORDERABLES documented in this encounter Visit Diagnoses Diagnosis Abnormal x-ray of knee- Primary Chronic pain of right knee Chronic pain of right knee Abnormal x-ray of knee documented in this encounter
--- OUTSIDE RECORDS SUMMARY | 2024-08-19 13:54 | XMS_ITS | Encounter Summary ---
Author Organization [facility] Address [address] [place] [address] Care Team Providers Care Sql Server Dba Developer Name Role Phone Unavailable Primary Care Provider Unavailabl e Encounter Details Date Type Department Care Team (Late st Contact Info) Description 03/12/2020 Abstract [facility] Medicine - Bushra [address] [facility] [address] [place] [address] Ciro Fernandez, DO [address] [facility] [address] [place] [address] Social History Tobacco Use Types [...]
--- OUTSIDE RECORDS SUMMARY | 2024-08-19 13:54 | XMS_ITS | Encounter Summary ---
Author Organization [facility] Address [address] [place] [address] Care Team Providers Care Universal Banker Name Role Phone Unavailable Primary Care Provider Unavailabl e Reason for Visit * Auth/Cert Specialty Diagnoses / Procedures Referred By Contac t Referred To Contact Multi Specialty Diagnoses Fecal occult blood test positive Procedures COLONOSCOPY [facility] [address] [place] [address] Referral ID Status Reason Start Date Expiration Date Visits Re quested Visits Authorized [id number] 1 1 Encounter Details Date Type Department Care Team (Late st Contact Info) Description 09/01/2019 7:25 AM ANALYTICAL LAB ANALYST - 09/01/2019 9:45 AM [facility] Hospital Encounter [facility] GI Lab [facility] [address] [place] [address] Modesta Wise, [address] [facility] [address] [place] [address] Fecal occult blood test positive [...] Comments Blood Pressure 120/56 09/01/2019 9:20 AM ANALYTICAL LAB ANALYST Pulse 71 09/01/2019 9:20 AM ANALYTICAL LAB ANALYST Temperature 36.3 ??C (97.3 ??F) 09/01/2019 9:01 AM CS T Respiratory Rate 16 09/01/2019 9:20 AM ANALYTICAL LAB ANALYST Oxygen Saturation 100% 09/01/2019 9:20 AM ANALYTICAL LAB ANALYST Inhaled Oxygen Concentration - - Weight 91 kg (200 lb 9.6 oz) 09/01/2019 7:32 AM ANALYTICAL LAB ANALYST Height 180.3 cm (5' 11 ) 09/01/2019 7:32 AM ANALYTICAL LAB ANALYST Body Mass Index 27.98 09/01/2019 7:32 AM ANALYTICAL LAB ANALYST documented in this encounter Discharge Instructions * Discharge Instructions* Courtney Gibson RN - 09/01/2019 9:12 AM ANALYTICAL LAB ANALYST If you should experience: Severe abdominal pain, [...] call the physician who prescribed the medication. YTICAL LAB ANALYST documented in this encounter Medications at Time [...] 07/25/2019 02/19/2020 fluticasone propionate (FLONASE) 50 mcg/spray [place], Suspension nasal inhaler Administer 2 Sprays in [...] to unspecified cause ??? Essential hypertension ??? [place] (hard of hearing) ??? Motion sickness Past Surgical History: Procedure Laterality Date ??? HX HEART CATHETERIZATION 1992 ??? 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 HX VASECTOMY 1980 ??? UT COLONOSCOPY FLX DX W/COLLJ SPEC WHEN PFRMD 01/12/2014 COLONOSCOPY performed by Modesta Wise DO at [facility] GI LAB ??? UT SHLDR ARTHROSCOP,SURG,W/ROTAT CUFF REPR Right 09/30/2018 RIGHT SHOULDER SCOPE W ROTATOR CUFF REPAIR, SUBACROMIAL DECOMPRESSION, W EXTENSIVE DEBRIDEMENT performed by Nehemiah Castellano MD at [facility] CC OR Medications Prior [...] time ??? fluticasone propionate (FLONASE) 50 mcg/spray [place], Suspension nasal inhaler Administer 2 Sprays in [...] mentioned procedure(s) as scheduled. Modesta Wise DO YTICAL LAB ANALYST documented in this encounter Procedure Notes * Modesta Wise DO - 09/01/2019 9:11 AM CSTAssociated Order(s): COLONOSCOPY REPORT [facility] Endoscopy Patient Name: Brendon Aldana Procedure Date: [...] week. You may call the office at [phone]. - High fiber diet. Modesta Wise MD 09/01/2019 9:11:18 AM This report has been signed electronically. Number of Addenda: [phone] ; [place] [address] YTICAL LAB ANALYST * Brittney Murdock RN - 08/24/2019 10:01 AM CST [facility] Nurse Assessment Patient: Brendon Aldana : 1950 Endoscopist: Surgeon(s): Modesta Wise DO Upcoming Procedure: Procedure to be Performed: Procedure(s): COLONOSCOPY Procedure Date/Time: 09/01/2019 at 0820 Diagnosis/Indication for procedure: Pre-Op Diagnosis Codes: * Fecal occult blood test positive [R19.5] Location: [facility] GI LAB Referring Physician: Ciro Fernandez Patient's [...] from brain ??? HX VASECTOMY 1980 ??? UT COLONOSCOPY FLX DX W/COLLJ SPEC WHEN PFRMD 01/12/2014 COLONOSCOPY performed by Modesta Wise, DO at [facility] GI LAB ??? UT SHLDR ARTHROSCOP,SURG,W/ROTAT CUFF REPR Right 09/30/2018 RIGHT SHOULDER SCOPE W ROTATOR CUFF REPAIR, SUBACROMIAL DECOMPRESSION, W EXTENSIVE DEBRIDEMENT performed by Nehemiah Castellano MD at [facility] CC OR Brittney Murdock RN YTICAL LAB ANALYST documented in this encounter OR Notes * Angie-OP - Brittney Murdock RN - 08/24/2019 10:00 AM CST Routine Pre-Anesthesia Protocol for GI Lab Procedures ??[facility] Approved by: [facility] - Medical Executive Committee Approval Date: 10/31/2018 ORDERS ARE ENTERED ???PER PROTOCOL?? Enter the protocol in the patient???s electronic health record using Cloud [employer]: .anestprotocolgilab NURSING ORDERS: Monitoring: o Obtain and [...] appropriate, may confirm POC with: Nursing Only [id number] (this lab can be obtained at no [...] injectable antihyperglycemic agents and glucose is less [id number] mg/dl o NPO patients who have NOT [...] MEDICATION ORDERS - entered by the Pharmacist costume shop coordinator RESCUE ORDERS - entered by the Pharmacist or the change management specialist Orders Patient has IV access and UNCONCIOUS, [...] cup 2% milk and 6 saltine crackers. YTICAL LAB ANALYST documented in this encounter Miscellaneous Notes * Result Encounter Note - Modesta Wise DO - 09/05/2019 12:19 PM ANALYTICAL LAB ANALYST Recommend surveillance colonoscopy in 3 years. YTICAL LAB ANALYST documented in this encounter Plan of Treatment Not on file documented as of this encounter Procedures Procedure Name Priority Date/Time Associated Diagnosis Comments COLONOSCOPY REPORT 09/01/2019 9 :12 AM ANALYTICAL LAB ANALYST PATHOLOGY Pathology 09/01/2019 8:53 AM ANALYTICAL LAB ANALYST Fecal occult blood test positive COLONOSCOPY 09/01/2019 8:23 AM ANALYTICAL LAB ANALYST Fecal occult blood test positive documented in this encounter Results * COLONOSCOPY REPORT (09/01/2019 9:12 AM ANALYTICAL LAB ANALYST) Narrative Procedure Note Modesta Wise DO - 09/01/2019 9:11 AM CST [facility] Endoscopy Patient Name: Brendon Aldana Procedure Date: [...] of Addenda: [address] [place] [address]; [place] [address] Modesta Wise DO GI PROCEDURE ORDERA BLES * PATHOLOGY (09/01/2019 8:53 AM ANALYTICAL LAB ANALYST) CASE REPORT Surgical Pathology Report ? Case: [id number] ? Authorizing Provider: ??Modesta Wise, DO ? Collected: ? 09/01/2019 08:53 AM ? Ordering Location: ? [facility] GI Lab [address] ??Received: ?09/01/2019 11:58 AM ? Pathologist: ? Kevin Romero, DO ? Specimen: ?Hepatic flexure, polyps ? 09/04/2019 10:21 AM [facility] FINAL DIAGNOSIS Large bowel, hepatic flexure polyps, polypectomy: -Tubular adenomas. 09/04/2019 10:21 AM [facility] IMEN DESCRIPTION Hepatic flexure polyps. 09/04/2019 10:21 AM [facility] OPERATIVE PROCEDURE Colonoscopy 09/04/2019 10:21 AM [facility] CLINICAL INFORMATION Colon Polyp(s). Adenomatous vs hyperplastic vs other. Fecal occult blood test positive [R19.5] 09/04/2019 10:21 AM [facility] GROSS DESCRIPTION Received in one container labeled Brendon Aldana, hepatic flexure polyps are seven pieces of red-pate tissue ranging from 0.3 to 0.6 cm in greatest dimension. The base of the largest piece is inked blue. It is bisected and submitted in cassette A1. The six smaller pieces are submitted in cassette A2. MC/rat 09/04/2019 10:21 AM [facility] MICROSCOPIC DESCRIPTION The slides are labeled [id number] and Brendon Aldana. Sections of the hepatic flexure polyps show multiple fragments of tubular adenoma. No high-grade dysplasia or invasive carcinoma is identified. 09/04/2019 10:21 AM [facility] COMMENT Special stain and/or immunohistochemical results are interpreted with controls that demonstrate appropriate staining reactions. Note on use of immunocytochemistry reagents: This test was developed and its performance characteristics determined by [facility], Department of Laboratory Medicine. It has not [...] or completely in the following laboratories: [facility], MAX #[id number] [address] [place] [address] [facility], [place] #[id number] [address] [place] [address] [facility], [place] #[id number] [address] [place] [address]. 09/04/2019 10:21 AM ANALYTICAL LAB ANALYST [facility] Tissue (Hepatic flexure) Collection / Unknown 09/01/2019 8:53 AM ANALYTICAL LAB ANALYST 09/01/2019 11:58 AM ANALYTICAL LAB ANALYST Comment:Colon Polyp(s). Pj omatous vs hyperplastic vs other. Modesta Wise DO PATHOLOGY/CYTOLOGY ORDERABLES [id number] [address] [facility] [place] [id number] documented in this encounter Visit Diagnoses Diagnosis [...] Pre-Procedure Continue from Pre-Op 09/01/2019 8:22 AM ANALYTICAL LAB ANALYST New Bag 09/01/2019 7:43 AM ANALYTICAL LAB ANALYST 125 mL/hr documented in this encounter Active and Recently Administered Medications Times are shown in ANALYTICAL LAB ANALYST. Continuous Medication Order 08/30/2019 08/31/2019 09/01/2019 lactated ringers infusion IV, at 125 mL/hr, PRE-PROCEDURE CONTINUOUS, Starting on Wed09/01/19 at 0745, Until Wed09/01/19 at 1145, Routine, Pre-Procedure 0743 (New Bag - Prov ider: Amarilis Nagel RN)0822 (Continue from Pre-Op - Provider: SONU Mason)0857 (Fluid Volume - Provider: SONU Mason) documented in this encounter
--- OUTSIDE RECORDS SUMMARY | 2024-08-19 13:54 | XMS_ITS | Encounter Summary ---
Author Organization [facility] Address [address] [place] [address] Care Team Providers Care Sign Out Clerk Name Role Phone Unavailable Primary Care Provider Unavailabl e Reason for Visit * Reason Onset Date Comments Results 01/16/2020 MRI knee Encounter Details Date Type Department Care Team (Late st Contact Info) Description 01/16/2020 Telephone [facility] Family Medicine - [facility] [address] [facility] [address] [place] [address] Ciro Fernandez, DO [address] [facility] [address] [place] [address] Results (MRI knee) Social History [...] to the urgent walk in clinic at [facility]. Discussed with Nurse in office and they know he is on his way. Patient will stop by Imani Garrett and rock picker his CD of MRI and take [...] would like you to see a knee rn orthopedic today if possible. It also showed degeneration to the lateral meniscus, fluid in the joint and knee cap arthritis. documented in this encounter Plan of Treatment Not on file documented as of this encounter Visit Diagnoses Not on filedocumented in this encounter
--- OUTSIDE RECORDS SUMMARY | 2024-08-19 13:54 | XMS_ITS | Encounter Summary ---
Author Organization [facility] Address [address] [place] [address] Care Team Providers Care Animal Rides Manager Name Role Phone Unavailable Primary Care Provider Unavailabl e Reason for Visit * Reason Comments Medication Refill Encounter Details Date Type Department Care Team (Late st Contact Info) Description 04/23/2020 Refill [facility] Medicine - [facility] [address] [facility] [address] [place] [address] Ciro Fernandez, DO [address] [facility] [address] [place] [address] ETD (Eustachian tube dysfunction), bilateral [...]
--- OUTSIDE RECORDS SUMMARY | 2024-08-19 13:54 | XMS_ITS | Encounter Summary ---
Author Organization [facility] Address [address] [place] [address] Care Team Providers Care Nurse Licensed Practical Name Role Phone Unavailable Primary Care Provider Unavailabl e Encounter Details Date Type Department Care Team (Late st Contact Info) Description 01/18/2020 Abstract [facility] Medicine - [facility] Abundio [address] [facility] [address] [place] [address] Ciro Fernandez, DO [address] [facility] [address] [place] [address] Social History Tobacco Use Types [...]
--- OUTSIDE RECORDS SUMMARY | 2024-08-19 13:54 | XMS_ITS | Encounter Summary ---
Author Organization [facility] Address [address] [place] [address] Care Team Providers Care Overhead Crane Technician Name Role Phone Unavailable Primary Care Provider Unavailabl e Encounter Details Date Type Department Care Team (Late st Contact Info) Description 02/08/2020 Abstract [facility] Medicine - [facility] Abundio Yuan [address] [facility] [address] [place] [address] Ciro Fernandez, DO [address] [facility] [address] [place] [address] Social History Tobacco Use Types [...]
--- OUTSIDE RECORDS SUMMARY | 2024-08-19 13:54 | XMS_ITS | Encounter Summary ---
Author Organization [facility] Address [address] [place] [address] Care Team Providers Care Head Of Marketing Analytics Name Role Phone Unavailable Primary Care Provider Unavailabl e Reason for Visit * Auth/Cert Specialty Diagnoses / Procedures Referred By Contac t Referred To Contact Multi Specialty Diagnoses Fecal occult blood test positive Procedures COLONOSCOPY [facility] [address] [place] [address] Referral ID Status Reason Start Date Expiration Date Visits Re quested Visits Authorized [id number] 1 1 Encounter Details Date Type Department Care Team (Late st Contact Info) Description 09/01/2019 8:20 AM FILLER LEAF CUTTER LONG - 09/01/2019 9:00 AM FILLER LEAF CUTTER LONG Surgery [facility] S [facility] [address] [place] [address] Modesta Wise DO [address] [address] COLONOSCOPY Surgery Details Date/Time Status [...] Comments Blood Pressure 128/74 09/01/2019 7:36 AM FILLER LEAF CUTTER LONG Pulse 67 09/01/2019 7:36 AM FILLER LEAF CUTTER LONG Temperature 36.4 ??C (97.5 ??F) 09/01/2019 7:36 AM CS T Respiratory Rate 18 09/01/2019 7:36 AM FILLER LEAF CUTTER LONG Oxygen Saturation 96% 09/01/2019 7:36 AM FILLER LEAF CUTTER LONG Inhaled Oxygen Concentration - - Weight 91 kg (200 lb 9.6 oz) 09/01/2019 7:32 AM FILLER LEAF CUTTER LONG Height 180.3 cm (5' 11 ) 09/01/2019 7:32 AM FILLER LEAF CUTTER LONG Body Mass Index 27.98 09/01/2019 7:32 AM FILLER LEAF CUTTER LONG documented in this encounter Discharge Instructions * Discharge Instructions* Courtney Gibson RN - 09/01/2019 9:12 AM FILLER LEAF CUTTER LONG If you should experience: Severe abdominal pain, [...] call the physician who prescribed the medication. ER LEAF CUTTER LONG documented in this encounter Medications at Time [...] 07/25/2019 02/19/2020 fluticasone propionate (FLONASE) 50 mcg/spray [place], Suspension nasal inhaler Administer 2 Sprays in [...] to unspecified cause ??? Essential hypertension ??? [place] (hard of hearing) ??? Motion sickness Past Surgical History: Procedure Laterality Date ??? HX HEART CATHETERIZATION 1992 ??? 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 HX VASECTOMY 1980 ??? [place] COLONOSCOPY FLX DX W/COLLJ SPEC WHEN PFRMD 01/12/2014 COLONOSCOPY performed by Modesta Wise DO at [facility] GI LAB ??? [place] SHLDR ARTHROSCOP,SURG,W/ROTAT CUFF REPR Right 09/30/2018 RIGHT SHOULDER SCOPE W ROTATOR CUFF REPAIR, SUBACROMIAL DECOMPRESSION, W EXTENSIVE DEBRIDEMENT performed by Nehemiah Castellano MD at [facility] CC OR Medications Prior to Admission [...] time ??? fluticasone propionate (FLONASE) 50 mcg/spray [place], Suspension nasal inhaler Administer 2 Sprays in [...] mentioned procedure(s) as scheduled. Modesta Wise DO ER LEAF CUTTER LONG documented in this encounter Procedure Notes * Modesta Wise DO - 09/01/2019 9:11 AM CSTAssociated Order(s): COLONOSCOPY REPORT [facility] Endoscopy Patient Name: Brendon Aldana Procedure Date: [...] of Addenda: [address]; [place] [address] ER LEAF CUTTER LONG * Brittney Murdock RN - 08/24/2019 10:01 AM CST [facility] GI Nurse Assessment Patient: Brendon Aldana : 1950 Endoscopist: Surgeon(s): Modesta Wise DO Upcoming Procedure: Procedure to be Performed: Procedure(s): COLONOSCOPY Procedure Date/Time: 09/01/2019 at 0820 Diagnosis/Indication for procedure: Pre-Op Diagnosis Codes: * Fecal occult blood test positive [R19.5] Location: [facility] GI LAB Referring Physician: Tabatha Fernandez [...] from brain ??? HX VASECTOMY 1980 ??? [place] COLONOSCOPY FLX DX W/COLLJ SPEC WHEN PFRMD 01/12/2014 COLONOSCOPY performed by Modesta Wise DO at [facility] GI LAB ??? [place] SHLDR ARTHROSCOP,SURG,W/ROTAT CUFF REPR Right 09/30/2018 RIGHT SHOULDER SCOPE W ROTATOR CUFF REPAIR, SUBACROMIAL DECOMPRESSION, W EXTENSIVE DEBRIDEMENT performed by Nehemiah Castellano MD at [facility] CC OR Brittney Murdock RN ER LEAF CUTTER LONG documented in this encounter OR Notes * Angie-OP - Brittney Murdock RN - 08/24/2019 10:00 AM CST Routine Pre-Anesthesia Protocol for GI Lab Procedures ??[facility] Approved by: [facility] - Medical Executive Committee Approval Date: 10/31/2018 ORDERS ARE ENTERED ???PER PROTOCOL?? Enter the protocol in the patient???s electronic health record using eZ Systemsrase: .anestprotocolgilab NURSING ORDERS: Monitoring: o Obtain and [...] appropriate, may confirm POC with: Nursing Only [id number] (this lab can be obtained at no [...] injectable antihyperglycemic agents and glucose is less unda395 mg/dl o NPO patients who have NOT [...] MEDICATION ORDERS - entered by the Pharmacist tax investigator RESCUE ORDERS - entered by the Pharmacist or the call center trainer Orders Patient has IV access and UNCONCIOUS, [...] cup 2% milk and 6 saltine crackers. ER LEAF CUTTER LONG documented in this encounter Miscellaneous Notes * Result Encounter Note - Modesta Wise DO - 09/05/2019 12:19 PM FILLER LEAF CUTTER LONG Recommend surveillance colonoscopy in 3 years. ER LEAF CUTTER LONG documented in this encounter Plan of Treatment Not on file documented as of this encounter Procedures Procedure Name Priority Date/Time Associated Diagnosis Comments COLONOSCOPY REPORT 09/01/2019 9: 12 AM FILLER LEAF CUTTER LONG PATHOLOGY Pathology 09/01/2019 8:53 AM FILLER LEAF CUTTER LONG Fecal occult blood test positive COLONOSCOPY 09/01/2019 8:23 AM FILLER LEAF CUTTER LONG Fecal occult blood test positive documented in this encounter Results * COLONOSCOPY REPORT (09/01/2019 9:12 AM FILLER LEAF CUTTER LONG) Narrative Procedure Note Modesta Wise DO - 09/01/2019 9:11 AM CST [facility] Endoscopy Patient Name: Brendon Aldana Procedure Date: [...] week. You may call the office at [phone]. - High fiber diet. Modesta Wise MD 09/01/2019 9:11:18 AM This report has been signed electronically. Number of Addenda: [address]; [place] [address] Modesta Wise DO GI PROCEDURE ORDERA BLES * PATHOLOGY (09/01/2019 8:53 AM FILLER LEAF CUTTER LONG) CASE REPORT Surgical Pathology Report ? Case: [id number] ? Authorizing Provider: ??Modesta Wise, DO ? Collected: ? 09/01/2019 08:53 AM ? Ordering Location: ? [facility] GI Lab Daron Youssef ??Received: ?09/01/2019 11:58 AM ? Pathologist: ? Kevin Romero, DO ? Specimen: ?Hepatic flexure, polyps ? 09/04/2019 10:21 AM [facility] FINAL DIAGNOSIS Large bowel, hepatic flexure polyps, polypectomy: -Tubular adenomas. 09/04/2019 10:21 AM [facility] IMEN DESCRIPTION Hepatic flexure polyps. 09/04/2019 10:21 AM [facility] OPERATIVE PROCEDURE Colonoscopy 09/04/2019 10:21 AM [facility] CLINICAL INFORMATION Colon Polyp(s). Adenomatous vs hyperplastic vs other. Fecal occult blood test positive [R19.5] 09/04/2019 10:21 AM [facility] GROSS DESCRIPTION Received in one container labeled Brendon Aldana, hepatic flexure polyps are seven pieces of red-pate tissue ranging from 0.3 to 0.6 cm in greatest dimension. The base of the largest piece is inked blue. It is bisected and submitted in cassette A1. The six smaller pieces are submitted in cassette A2. [place] 09/04/2019 10:21 AM [facility] MICROSCOPIC DESCRIPTION The slides are labeled [id number] and Brendon Aldana. Sections of the hepatic flexure polyps show multiple fragments of tubular adenoma. No high-grade dysplasia or invasive carcinoma is identified. 09/04/2019 10:21 AM [facility] COMMENT Special stain and/or immunohistochemical results are interpreted with controls that demonstrate appropriate staining reactions. Note on use of immunocytochemistry reagents: This test was developed and its performance characteristics determined by [facility], Department of Laboratory Medicine. It has not [...] part or completely in the following laboratories: [facility], CLIA #[id number] [address] [place] [address] [facility], CLIA #[id number] [address] [place] [address] [id number] [place] [address]. 09/04/2019 10:21 AM FILLER LEAF CUTTER LONG [facility] Tissue (Hepatic flexure) Collection / Unknown 09/01/2019 8:53 AM FILLER LEAF CUTTER LONG 09/01/2019 11:58 AM FILLER LEAF CUTTER LONG Comment:Colon Polyp(s). Pj omatous vs hyperplastic vs other. Modesta Wise DO PATHOLOGY/CYTOLOGY ORDERABLES [facility] CLIA# [id number] [address] [place] [address] [place] [address] documented in this encounter Visit Diagnoses Diagnosis [...] Pre-Procedure Continue from Pre-Op 09/01/2019 8:22 AM FILLER LEAF CUTTER LONG New Bag 09/01/2019 7:43 AM FILLER LEAF CUTTER LONG 125 mL/hr documented in this encounter Active and Recently Administered Medications Times are shown in FILLER LEAF CUTTER LONG. Continuous Medication Order 08/30/2019 08/31/2019 09/01/2019 lactated ringers infusion IV, at 125 mL/hr, PRE-PROCEDURE CONTINUOUS, Starting on Wed09/01/19 at 0745, Until Wed09/01/19 at 1145, Routine, Pre-Procedure 0743 (New Bag - Prov ider: Amarilis Nagel RN)0822 (Continue from Pre-Op - Provider: SONU Mason)0857 (Fluid Volume - Provider: SONU Mason) documented in this encounter
--- OUTSIDE RECORDS SUMMARY | 2024-08-19 13:54 | XMS_ITS | Encounter Summary ---
Author Organization [facility] Address [address] [place] [address] Care Team Providers Care Animal Bounty Hunter Name Role Phone Unavailable Primary Care Provider Unavailabl e Reason for Visit * Reason Onset Date Comments Cough 04/16/2020 Encounter Details Date Type Department Care Team (Late st Contact Info) Description 04/16/2020 Telephone [facility] - [facility] Kwabena [address] [facility] [address] [place] [address] Ciro Fernandez, DO [address] [facility] [address] [place] [address] Cough Social History Tobacco Use [...]
--- OUTSIDE RECORDS SUMMARY | 2024-08-19 13:54 | XMS_ITS | Encounter Summary ---
Author Organization [facility] Address [address] [place] [address] Care Team Providers Care Senior Designer Name Role Phone Unavailable Primary Care Provider Unavailabl e Reason for Referral * MRI (Routine) - Closed Specialty Diagnoses / Procedures Referred By Contac t Referred To Contact Diagnoses Chronic pain of right knee Abnormal x-ray of knee Procedures MRI KNEE WO CONTRAST RIGHT Ciro Fernandez DO [address] [place] [address] [address] [place] [address] Referral ID Status Reason Start Date Expiration Date V isits Requested Visits Authorized [id number] Closed [facility] CTS 01/08/2020 03/07/2020 1 1 Reason for Visit * MRI (Routine) - Closed Specialty Diagnoses / Procedures Referred By Contac t Referred To Contact Diagnoses Chronic pain of right knee Abnormal x-ray of knee Procedures MRI KNEE WO CONTRAST RIGHT Ciro Fernandez DO [address] [facility] LILIA [address] [place] [address] Referral ID Status Reason Start Date Expiration Date V isits Requested Visits Authorized [id number] Closed [facility] CTS 01/08/2020 03/07/2020 1 1 Encounter Details Date Type Department Care Team (Latest Contact Info) Description 01/15/2020 8:39 AM CDT - 01/15/2020 11:59 PM CDT Hospital [facility] [address] [place] [address] [place] [address] Ciro Fernandez, DO [address] [facility] [address] [place] [address] Discharge Disposition: Home or Self [...] AM CDT documented as of this encounter Medications [...] 07/25/2019 02/19/2020 fluticasone propionate (FLONASE) 50 mcg/spray [place], Suspension nasal inhaler Administer 2 Sprays in each nostril daily. 48 Gram 3 03/13/2019 05/11/2020 omeprazole (PriLOSEC) 20 mg Capsule, Delayed Release(E.C.)Indications:G astroesophageal reflux disease, esophagitis presence not specified Take 1 Capsule (20 mg) by mouth daily. 180 Capsule 03/13/2019 10/10/2021 documented as of this encounter Progress Notes * Conor Justin RT - 01/15/2020 9:15 AM CDT MRI completed and patient given discharge instructions documented in this encounter Plan of Treatment Not on file documented as of this encounter Procedures Procedure Name Priority Date/Time Associated Diagnosis Comments MRI KNEE WO CONTRAST RIGHT Routine 01/15/2020 9:45 AM CDT Chronic pain of right knee Abnormal x-ray of knee documented in this encounter Results * MRI KNEE WO [...] Chondromalacia patella. DICTATION LOCATION: Location 1 - [facility] Narrative 01/15/2020 4:46 PM CDT MRI KNEE WO [...] Chondromalacia patella. DICTATION LOCATION: Location 1 - [facility] Ciro OSBORN ORDERABLES documented in this encounter Visit Diagnoses Diagnosis Chronic pain of right knee Abnormal x-ray of knee documented in this encounter
--- OUTSIDE RECORDS SUMMARY | 2024-08-19 13:54 | XMS_ITS | Encounter Summary ---
Author Organization [facility] Address [address] [facility] Attn: Epic Prelude ADT KAYE SCHMID [address] Care Team Providers Care Waiter/Waitress Club Name Role Phone Unavailable Primary Care Provider [...]
--- OUTSIDE RECORDS SUMMARY | 2024-08-19 13:54 | XMS_ITS | Encounter Summary ---
Author Organization [facility] Address [address] [facility] Attn: Epic Prelude ADT KAYE SCHMID [address] Care Team Providers Care Staffing Specialist Name Role Phone Unavailable Primary Care [...]
--- OUTSIDE RECORDS SUMMARY | 2024-08-19 13:54 | XMS_ITS | Encounter Summary ---
Author Organization [facility] Address [address] [place] [address] Care Team Providers Care Resource Analyst Name Role Phone Unavailable Primary Care Provider Unavailabl e Reason for Visit * Reason Comments Cholesterol Problem Hypertension Follow Up labs Encounter Details Date Type Department Care Team (Late st Contact Info) Description 02/14/2020 10:00 AM CDT Office Visit [facility] Medicine - Bushra Yuan [address] [facility] [address] [place] [address] Ciro Fernandez, DO [address] [facility] [address] [place] [address] Essential hypertension, benign (Primary Dx); [...] Comments HEMOGLOBIN A1C Routine 09/07/2020 8:05 AM OUTPATIENT PHYSICAL THERAPIST ASSISTANT Prediabetes LIPID PANEL Routine 09/07/2020 8:05 AM OUTPATIENT PHYSICAL THERAPIST ASSISTANT Essential hypertension, benign Pure hypercholesterolemia COMPREHENSIVE METABOLIC PANEL Routine 09/07/2020 8:05 AM OUTPATIENT PHYSICAL THERAPIST ASSISTANT Essential hypertension, benign Pure hypercholesterolemia Prediabetes documented in this encounter Results * (ABNORMAL) LIPID PANEL (09/07/2020 8:05 AM OUTPATIENT PHYSICAL THERAPIST ASSISTANT) [facility] CHOLESTEROL 128 <200 mg/dL [facility] . [...] LDL-C. Michele SS et al. JACIEL. 2013;310(19): 2458-5006 (http://education.WizMeta/faq/XSS291) CHOL/HDL RATIO 3.4 <5.0 (calc) [facility] TOTAL NON-HDL CHOL(LDL+VLDL) 90 <130 mg/dL (calc) [facility] Comment: For patients with diabetes plus 1 major ASCVD risk factor, treating to a non-HDL-C goal of <100 mg/dL (LDL-C of <70 mg/dL) is considered a therapeutic option. Test Performed at: [facility] [address] ??[phone] Agus Valente D.O., MPH Blood 09/07/2020 8:05 AM OUTPATIENT PHYSICAL THERAPIST ASSISTANT Ciro Fernandez DO CHEMISTRY ORDERABLES [facility] [employer] [facility] [address] [place] [address] * (ABNORMAL) COMPREHENSIVE METABOLIC PANEL (09/07/2020 8:05 AM OUTPATIENT PHYSICAL THERAPIST ASSISTANT) GLUCOSE 108(H) 65 - 99 mg/dL [facility] Comment: ? Fasting reference interval For someone without known diabetes, a glucose value between 100 and 125 mg/dL is consistent with prediabetes and should be confirmed with a follow-up test. BUN 12 7 - 25 mg/dL [facility] CREATININE 0.86 0.70 - 1.25 mg/dL [facility] Comment: For patients >49 years of age, the reference limit for Creatinine is approximately 13% higher for people identified as -[place]. GFR 89 > OR = 60 mL/min/1 .73m2 [facility] GFR, 103 > OR = 60 mL/min/1 .73m2 [facility] [employer] [facility] BUN/CREAT RATIO NOT APPLICABLE 6 - 22 (calc) [facility] [employer] [facility] SODIUM 142 135 - 146 mmol/L [facility] [employer] [facility] POTASSIUM 4.5 3.5 - 5.3 mmol/L [employer] [facility] CHLORIDE 106 98 - 110 mmol/L [facility] CO2 29 20 - 32 mmol/L [facility] CALCIUM 9.3 8.6 - 10.3 mg/dL [facility] TOTAL PROTEIN 6.8 6.1 - 8.1 g/dL [facility] ALBUMIN 4.0 3.6 - 5.1 g/dL [facility] GLOBULIN 2.8 1.9 - 3.7 g/dL (calc) [facility] ALBUMIN/GLOBULIN RATIO 1.4 1.0 - 2.5 (calc) [facility] BILIRUBIN TOTAL 0.7 0.2 - 1.2 mg/dL [facility] ALKALINE PHOSPHATASE 68 35 - 144 U/L [facility] AST 26 10 - 35 U/L [facility] ALT 33 9 - 46 U/L [facility] Comment: Test Performed at: [facility] ??[phone] Agus Valente D.O., MPH Blood 09/07/2020 8:05 AM OUTPATIENT PHYSICAL THERAPIST ASSISTANT Ciro Fernandez DO CHEMISTRY ORDERABLES [facility] [address] [place] [address] * (ABNORMAL) HEMOGLOBIN A1C (09/07/2020 8:05 AM OUTPATIENT PHYSICAL THERAPIST ASSISTANT) HEMOGLOBIN A1C 5.8(H) <5.7 % of total Hgb [facility] Comment: For someone without known diabetes, [...] children. FASTING:YES FASTING: YES Test Performed at: [facility] ??[phone] Agus Valente D.O., MPH Blood 09/07/2020 8:05 AM OUTPATIENT PHYSICAL THERAPIST ASSISTANT Ciro Fernandez DO CHEMISTRY ORDERABLES Performing Organization Address City/State/[facility] Co de Phone Number [employer] [address] [address] documented in this encounter Visit Diagnoses Diagnosis Essential hypertension, benign- Primary Pure hypercholesterolemia Prediabetes Other abnormal glucose Gastroesophageal reflux disease, esophagitis presence not specified documented in this encounter
--- OUTSIDE RECORDS SUMMARY | 2024-08-19 13:54 | XMS_ITS | Encounter Summary ---
Author Organization [facility] Address [address] [place] [address] Care Team Providers Care Engine Assembler Name Role Phone Unavailable Primary Care Provider Unavailabl e Reason for Visit * Auth/Cert Specialty Diagnoses / Procedures Referred By Contac t Referred To Contact Multi Specialty Diagnoses Fecal occult blood test positive Procedures COLONOSCOPY [facility] Gi Lab [address] [place] [address] Referral ID Status Reason Start Date Expiration Date Visits Re quested Visits Authorized [id number] 1 1 Encounter Details Date Type Department Care Team (Late st Contact Info) Description 09/01/2019 8:23 AM WELFARE ELIGIBILITY INTERVIEWER Anesthesia Event [facility] [address] [place] [address] Efren Burgess MD [address] [place] [address] Anesthesia Record Procedure Summary Procedure [...] symptoms Hydration status: mildly dehydrated SONU Mason ARE ELIGIBILITY INTERVIEWER * Anesthesia Handoff - Roxana Fan AA-C [...] (09/01/2019 9:01 AM) 9:03 AM SONU Mason ARE ELIGIBILITY INTERVIEWER * Anesthesia Preprocedure Evaluation - Efren Burgess [...] abnormality identified. DICTATION LOCATION: Location 1 - [facility] Results for orders placed or performed during [...] is identified. Impression IMPRESSION: Negative. Dictated from [facility] Chest CT result (most recent): No results [...] abnormality identified. DICTATION LOCATION: Location 1 - [facility] Cardiovascular (+) hypertension well controlled, (-) pacemaker, valvular problems/murmurs, past CT, CAD, CABG/stent, dysrhythmias, angina, CHF, orthopnea, PND, [...] discussed with Patient. Plan discussed with Anesthesiologist Tagman and Anesthesiologist. Post-op Pain Control Plan to use IV or IM medication for post-op pain control. Smoking Compliance Patient did not smoke on day of surgery ARE ELIGIBILITY INTERVIEWER documented in this encounter Plan of Treatment [...] Pre-Procedure Continue from Pre-Op 09/01/2019 8:22 AM WELFARE ELIGIBILITY INTERVIEWER New Bag 09/01/2019 7:43 AM WELFARE ELIGIBILITY INTERVIEWER 125 mL/hr lidocaine 2 % (XYLOCAINE) injection INTRA-PROCEDURE PRN, Starting on Wed09/01/19 at 0832, Until Wed09/01/19 at 0903, Routine, Anesthesia Intra-op Given 09/01/2019 8:32 AM WELFARE ELIGIBILITY INTERVIEWER 60 mg propofol (DIPRIVAN) injection INTRA-PROCEDURE PRN, Starting on Wed09/01/19 at 0832, Until Wed09/01/19 at 0903, Anesthesia Intra-op Given 09/01/2019 8:56 AM WELFARE ELIGIBILITY INTERVIEWER 10 mg Given 09/01/2019 8:53 AM WELFARE ELIGIBILITY INTERVIEWER 30 mg Given 09/01/2019 8:50 AM WELFARE ELIGIBILITY INTERVIEWER 30 mg documented in this encounter
--- OUTSIDE RECORDS SUMMARY | 2024-08-19 13:54 | XMS_ITS | Encounter Summary ---
Author Organization [facility] Address [address] [place] [address] Care Team Providers Care Artificial Limb Fitter Name Role Phone Unavailable Primary Care Provider Unavailabl e Reason for Visit * Auth/Cert Specialty Diagnoses / Procedures Referred By Georgie t Referred To Contact Radiology [facility] [address] [place] [address] Referral ID Status Reason Start Date Expiration Date Visits Re quested Visits Authorized [id number] 1 1 Encounter Details Date Type Department Care Team (Latest Contact Info) Description 01/02/2020 12:17 PM CDT - 01/02/2020 11:59 PM CDT Hospital Encounter [facility] Imaging Services [address] [place] [address] Ciro Fernandez, DO [address] [facility] [address] [place] [address] Discharge Disposition: Home or Self [...] 07/25/2019 02/19/2020 fluticasone propionate (FLONASE) 50 mcg/spray [place], Suspension nasal inhaler Administer 2 Sprays in [...] Otherwise normal right knee. DICTATION LOCATION: Location [address] [place] [address] Narrative 01/02/2020 3:58 PM CDT XR KNEE [...] normal right knee. DICTATION LOCATION: Location - [facility] Ciro Fernandez DO DIAGNOSTIC IMAGING O RDERABLES documented in this encounter Visit Diagnoses Diagnosis Acute pain of right knee documented in this encounter
--- OUTSIDE RECORDS SUMMARY | 2024-08-19 13:54 | XMS_ITS | Encounter Summary ---
Author Organization [facility] Address [address] [place] [address] Care Team Providers Care Welder Gas Tungsten Arc Name Role Phone Unavailable Primary Care Provider Unavailabl e Encounter Details Date Type Department Care Team (Late st Contact Info) Description 04/20/2019 Abstract [facility] Medicine - Bushra Yuan 140 [address] [facility] [address] [place] [address] Ciro Fernandez, DO [address] [facility] [address] [place] [address] Social History Tobacco Use Types [...]
--- OUTSIDE RECORDS SUMMARY | 2024-08-19 13:54 | XMS_ITS | Encounter Summary ---
Author Organization [facility] Address [address] [place] [address] Care Team Providers Care Lumber Loader Name Role Phone Unavailable Primary Care Provider Unavailabl e Reason for Visit * Reason Comments Medication Refill Encounter Details Date Type Department Care Team (Late st Contact Info) Description 02/18/2020 Refill [facility] Medicine - [facility] Abundio Yuan [address] [facility] [address] [place] [address] Ciro Fernandez, DO [address] [facility] [address] [place] [address] Social History Tobacco Use Types [...]
--- OUTSIDE RECORDS SUMMARY | 2024-08-19 13:54 | XMS_ITS | Encounter Summary ---
Author Organization [facility] Address [address] [place] [address] Care Team Providers Care Senior Paralegal Name Role Phone Unavailable Primary Care Provider Unavailabl e Reason for Visit * Reason Onset Date Comments Needs Appointment 01/26/2020 Encounter Details Date Type Department Care Team (Late st Contact Info) Description 01/26/2020 Telephone [facility] Family Medicine - [facility] Kwabena [address] [facility] [address] [place] [address] Ciro Fernandez, DO [address] [facility] [address] [place] [address] Needs Appointment Social History Tobacco [...]
--- OUTSIDE RECORDS SUMMARY | 2024-08-19 13:54 | XMS_ITS | Encounter Summary ---
Author Organization [facility] Address [address] [place] [address] Care Team Providers Care Car Wash Manager Name Role Phone Unavailable Primary Care Provider Unavailabl e Encounter Details Date Type Department Care Team (Latest Contact Info) Description 04/26/2019 1:15 AM CDT - 04/26/2019 11:59 PM CDT Hospital Encounter [facility] Laboratory Services [address] [facility] [address] [place] [address] Ciro Fernandez, DO [address] [facility] [address] [place] [address] Discharge Disposition: Home or Self Care Social [...] by mouth. fluticasone propionate (FLONASE) 50 mcg/spray [place], Suspension nasal inhaler Administer 2 Sprays in [...] Positive(A ) Negative 04/27/2019 11:28 PM CDT [facility] Stool STOOL SPECIMEN / Unknown Collection / Unknown 04/26/2019 9:19 PM CDT 04/27/2019 9:19 PM CDT Ciro Fernandez DO BODY FLUIDS AND ODALYSO RADHA [facility] [facility] CLIA# [id number] [address] CRIST[address]BAL K[place] [address] documented in this encounter Visit Diagnoses Diagnosis Screening for colon cancer Special screening for malignant neoplasms, colon documented in this encounter
--- OUTSIDE RECORDS SUMMARY | 2024-08-19 13:54 | XMS_ITS | Encounter Summary ---
Author Organization [facility] Address [address] [place] [address] Care Team Providers Care Chief Cook Name Role Phone Unavailable Primary Care Provider Unavailabl e Reason for Visit * Reason Onset Date Comments right knee pain 01/12/2020 Encounter Details Date Type Department Care Team (Late st Contact Info) Description 01/12/2020 Telephone [facility] Family Medicine - [facility] Abundio Kwabena [address] [facility] [address] [place] [address] Ciro Fernandez, DO 107 [facility] [address] [place] [address] right knee pain Social History [...]
--- OUTSIDE RECORDS SUMMARY | 2024-08-19 13:54 | XMS_ITS | Encounter Summary ---
Author Organization [facility] Address [address] [facility] Attn: Epic Prelude ADT KAYE [place] [address] Care Team Providers Care Med Dir Name Role Phone Unavailable Primary Care Provider [...]
--- OUTSIDE RECORDS SUMMARY | 2024-08-19 13:54 | XMS_ITS | Encounter Summary ---
Author Organization [facility] Address [address] [place] [address] Care Team Providers Care Sole Stapler Welt Name Role Phone Unavailable Primary Care Provider Unavailabl e Encounter Details Date Type Department Care Team (Late st Contact Info) Description 08/31/2019 Chart Note [facility] Gastroenterology [place] A [address] [place] [address] Modesta Wise, DO [address] [place] [address] Social History Tobacco Use Types [...] 08/31/2019 11:01 AM CST Patient confirm procedure INTERCEPT CONTROLLER documented in this encounter Plan of Treatment Not on file documented as of this encounter Visit Diagnoses Not on filedocumented in this encounter
--- OUTSIDE RECORDS SUMMARY | 2024-08-19 13:54 | XMS_ITS | Encounter Summary ---
Author Organization [facility] Address [address] [place] [address] Care Team Providers Care Control Director Name Role Phone Unavailable Primary Care Provider Unavailabl e Reason for Visit * Reason Onset Date Comments Medication Refill 09/06/2019 Encounter Details Date Type Department Care Team (Late st Contact Info) Description 09/06/2019 Refill [facility] Family Medicine - [place] Yuan 140 [address] [facility] Abundio [address] [place] [address] Ciro Fernandez, DO [address] [facility] [address] [place] [address] Pure hypercholesterolemia; Essential hypertension, benign [...]
--- OUTSIDE RECORDS SUMMARY | 2024-08-19 13:54 | XMS_ITS | Encounter Summary ---
Author Organization [facility] Address [address] [place] [address] Care Team Providers Care Business Services Administrator Name Role Phone Unavailable Primary Care Provider Unavailabl e Reason for Visit * Reason Comments Knee Pain left Encounter Details Date Type Department Care Team (Late st Contact Info) Description 02/02/2020 2:45 PM CDT Office Visit [facility] Medicine - [facility] Abundio Yuan 140 [address] [facility] Abundio [address] [place] [address] Ciro Fernandez, DO [address] [facility] [address] [place] [address] Acute non-recurrent frontal sinusitis (Primary [...]
--- OUTSIDE RECORDS SUMMARY | 2024-08-19 13:54 | XMS_ITS | Encounter Summary ---
Author Organization [facility] Address [address] [facility] Attn: Epic Prelude ADT KAYE [place] [address] Care Team Providers Care Lead Pressman Name Role Phone Unavailable Primary Care Provider [...]
--- OUTSIDE RECORDS SUMMARY | 2024-08-19 13:54 | XMS_ITS | Encounter Summary ---
Author Organization [facility] Address [address] [facility] Attn: Epic Prelude ADT KAYE [place] [address] Care Team Providers Care Babysitter Name Role Phone Unavailable Primary Care Provider [...]
--- OUTSIDE RECORDS SUMMARY | 2024-08-19 13:54 | XMS_ITS | Encounter Summary ---
Author Organization [facility] Address [address] [place] [address] Care Team Providers Care Licensed Master Social Worker Name Role Phone Unavailable Primary Care Provider Unavailabl e Reason for Visit * Reason Comments Medication Refill Encounter Details Date Type Department Care Team (Late st Contact Info) Description 07/24/2019 Refill [facility] Medicine - [facility] Abundio Yuan 140 [address] [facility] Abundio [address] [place] [address] Ciro Fernandez, DO [address] [facility] [address] [place] [address] Social History Tobacco Use Types [...]
--- OUTSIDE RECORDS SUMMARY | 2024-08-19 13:54 | XMS_ITS | Encounter Summary ---
Author Organization [facility] Address [address] [facility] Attn: Epic Prelude ADT KAYE [place] [address] Care Team Providers Care Barrel Plater Name Role Phone Unavailable Primary Care Provider [...]
--- OUTSIDE RECORDS SUMMARY | 2024-08-19 13:54 | XMS_ITS | Encounter Summary ---
Author Organization [facility] Address [address] [place] [address] Care Team Providers Care Detective Narcotics And Vice Name Role Phone Unavailable Primary Care Provider Unavailabl e Reason for Visit * Reason Onset Date Comments Results 04/28/2019 positive stool c dung Encounter Details Date Type Department Care Team (Late st Contact Info) Description 04/28/2019 Telephone [facility] Family Medicine - [facility] [address] [facility] [address] [place] [address] Ciro Fernandez, DO [address] [facility] [address] [place] [address] Results (positive stool card) Social [...]
--- OUTSIDE RECORDS SUMMARY | 2024-08-19 13:55 | XMS_ITS | Encounter Summary ---
Author Organization [facility] Address [address] [facility] Attn: Epic Prelude ADT [place]KAYE BRAMBILA [address] Care Team Providers Care Computer Animator Name Role Phone Unavailable Primary Care Provider [...]
--- OUTSIDE RECORDS SUMMARY | 2024-08-19 13:55 | XMS_ITS | Encounter Summary ---
Author Organization [facility] Address [address] [place] [address] Care Team Providers Care Word Processing Operator Name Role Phone Unavailable Primary Care Provider Unavailabl e Encounter Details Date Type Department Care Team (Latest Contact Info) Description 09/14/2018 4:05 PM MECHANICAL DETAILER - 09/14/2018 11:59 PM [facility] Hospital Encounter [facility] Laboratory Services [facility] [address] [facility] Kw[address]ena [address] [place] [address] Courtney Weeks PA-C [address] [place] [address] Discharge Disposition: Home or Self [...] 5 06/24/2018 01/19/2019 fluticasone (FLONASE) 50 mcg/spray [place], Suspension Administer 2 Sprays in each nostril daily. 48 Gram 3 12/06/2017 12/12/2018 documented as of this encounter Plan of Treatment Not on file documented as of this encounter Procedures Procedure Name Priority Date/Time Associated Diagnosis Comments CBC WITH DIFFERENTIAL Routine 09/14/2018 4:07 PM MECHANICAL DETAILER Pre-operative exam COMPREHENSIVE METABOLIC PANEL Routine 09/14/2018 4:07 PM MECHANICAL DETAILER Pre-operative exam documented in this encounter Results * COMPREHENSIVE METABOLIC PANEL (09/14/2018 4:07 PM MECHANICAL DETAILER) SODIUM 144 136 - 145 mmol/L 09/14/2018 9:02 PM MECHANICAL DETAILER [employer] LABORATORY SERVICES - [facility] POTASSIUM 4.2 3.5 - 5.0 mmol/L 09/14/2018 9:02 PM MECHANICAL DETAILER [employer] LABORATORY SERVICES - . [facility] CHLORIDE 104 98 - 107 mmol/L 09/14/2018 9:02 PM MECHANICAL DETAILER [employer] LABORATORY SERVICES - [facility] CO2 26 22 - 29 mmol/L 09/14/2018 9:02 PM MECHANICAL DETAILER [employer] LABORATORY SERVICES - . [facility] CALCIUM 9.7 8.6 - 10.2 mg/dL 09/14/2018 9:02 PM MECHANICAL DETAILER [employer] LABORATORY SERVICES - . [place] BUN 16 8 - 23 mg/dL 09/14/2018 9:02 PM MECHANICAL DETAILER [employer] LABORATORY SERVICES - . [facility] CREATININE 1.03 0.67 - 1.17 mg/dL 09/14/2018 9:02 PM MECHANICAL DETAILER [employer] LABORATORY SERVICES - . [facility] GLUCOSE 93 74 - 99 mg/dL 09/14/2018 9:02 PM [facility] [employer] [facility] TOTAL PROTEIN 7.5 6.7 - 8.6 g/dL 09/14/2018 9:02 PM [facility] [employer] [facility] ALBUMIN 4.2 3.5 - 5.2 g/dL 09/14/2018 9:02 PM [facility] BILIRUBIN TOTAL 0.4 0.2 - 1.1 mg/dL 09/14/2018 9:02 PM [facility] [employer] [facility] ALKALINE PHOSPHATASE 67 40 - 129 U/L 09/14/2018 9:02 PM [facility] [employer] [facility] AST 27 <41 U/L 09/14/2018 9:02 PM [facility] [employer] [facility] ALT 28 <42 U/L 09/14/2018 9:02 PM [facility] [employer] [facility] GFR >60 >=60 mL/min/1.7 3 sq meter 09/14/2018 9:02 PM [facility] [employer] [facility] Comment: eGFR has not been validated for [...] 3 sq meter 09/14/2018 9:02 PM [facility] [employer] [facility] ANION GAP 14 8 - 16 mmol/L 09/14/2018 9:02 PM [facility] [employer] [facility] Blood Venipuncture / Unknown 09/14/2018 4:07 PM MECHANICAL DETAILER 09/14/2018 4:07 PM [facility] [employer] [facility] - 09/14/2018 9:02 PM [facility] Samples containing indocyanine green cause interferences on Total and/or Direct Bilirubin and must not be measured. Courtney Weeks PA-C [facility] [employer]ABLES [employer] LABORATORY SERVICES - [facility] CLIA# [id number] [address] [place] [address] * CBC WITH DIFFERENTIAL (09/14/2018 4:07 PM MECHANICAL DETAILER) WBC 9.4 4.0 - 9.8 K/uL 09/14/2018 8:34 PM MECHANICAL DETAILER [employer] LABORATORY SERVICES - . [place] RBC 5.11 4.50 - 5.40 M/uL 09/14/2018 8:34 PM [email or web address] LABORATORY SERVICES - . [place] HEMOGLOBIN 15.6 13.6 - 16.5 g/dL 09/14/2018 8:34 PM MECHANICAL DETAILER [employer] LABORATORY SERVICES - [facility] HEMATOCRIT 46.5 40.0 - 48.0 % 09/14/2018 8:34 PM [email or web address] LABORATORY SERVICES - . [facility] MCV 91.0 82.0 - 99.0 fL 09/14/2018 8:34 PM [email or web address] LABORATORY SERVICES - . [place] MCH 30.5 27.2 - 32.6 pg 09/14/2018 8:34 PM MECHANICAL DETAILER [employer] LABORATORY SERVICES - [facility] MCHC 33.5 31.5 - 35.5 g/dL 09/14/2018 8:34 PM MECHANICAL DETAILER [employer] LABORATORY SERVICES - . [place] RDW 12.2 11.5 - 14.5 % 09/14/2018 8:34 PM [email or web address] LABORATORY SERVICES - [facility] RDW-STDEV 40.3 37.1 - 48.7 fL 09/14/2018 8:34 PM [email or web address] LABORATORY SERVICES - . [place] PLATELETS 274 140 - 350 K/uL 09/14/2018 8:34 PM [email or web address] LABORATORY SERVICES - . [place] MPV 10.3 9.3 - 12.4 fL 09/14/2018 8:34 PM MECHANICAL DETAILER [employer] LABORATORY SERVICES - [facility] NEUTROPHILS 50 % 09/14/2018 8:34 PM MECHANICAL DETAILER [employer] LABORATORY SERVICES - [facility] LYMPHOCYTES 32 % 09/14/2018 8:34 PM MECHANICAL DETAILER [employer] LABORATORY SERVICES - [facility] MONOCYTES 12 % 09/14/2018 8:34 PM MECHANICAL DETAILER [employer] LABORATORY SERVICES - [facility] EOSINOPHILS 4 % 09/14/2018 8:34 PM MECHANICAL DETAILER [employer] LABORATORY [facility] - . [place] BASOPHILS 1 % 09/14/2018 8:34 PM [facility] LABORATORY [facility] - . [place] IMMATURE GRANULOCYTES 0 % 09/14/2018 8:34 PM [facility] LABORATORY [facility] - . [facility] NEUTROPHIL ABSOLUTE 4.71 1.90 - 7.00 K/uL 09/14/2018 8:34 PM [facility] LABORATORY [facility] - . [facility] LYMPHOCYTE ABSOLUTE 3.00 0.70 - 4.50 K/uL 09/14/2018 8:34 PM [facility] LABORATORY [facility] - [facility] [place] MONOCYTE ABSOLUTE 1.13 0.10 - 1.30 K/uL 09/14/2018 8:34 PM [facility] LABORATORY [facility] - [facility] [place] EOSINOPHIL ABSOLUTE 0.41 0.00 - 0.70 K/uL 09/14/2018 8:34 PM [facility] LABORATORY [facility] - [facility] [place] BASOPHILS ABSOLUTE 0.11 0.00 - 0.20 K/uL 09/14/2018 8:34 PM [facility] LABORATORY [facility] - . [facility] IMMATURE GRANULOCYTES ABSOLUTE 0.03 0.00 - 0.03 K/uL 09/14/2018 8:34 PM [facility] LABORATORY [facility] - . [facility] Blood Venipuncture / Unknown 09/14/2018 4:07 PM MECHANICAL DETAILER 09/14/2018 4:07 PM MECHANICAL DETAILER Courtney Weeks PA-C [facility] ORDERABLES [facility]# [id number] [address] [place] [address] documented in this encounter Visit Diagnoses Diagnosis Pre-operative exam Preoperative examination, unspecified documented in this encounter
--- OUTSIDE RECORDS SUMMARY | 2024-08-19 13:55 | XMS_ITS | Encounter Summary ---
Author Organization [facility] Address [address] [place] [address] Care Team Providers Care Itinerant Teacher Assistant Name Role Phone Unavailable Primary Care Provider Unavailabl e Reason for Visit * Reason Comments Follow Up Right Shoulder * Eval and Treat (Routine) - Closed Specialty Diagnoses / Procedures Referred By Georgie gallagher Referred To Contact Orthopedic Surgery Diagnoses Complete tear of right rotator cuff Tear of right supraspinatus tendon, initial encounter Ciro Fernandez, DO [address] [facility] [address] [place] [address] [place] [address] [place] [address] Referral ID Status Reason Start Date Expiration Date V isits Requested Visits Authorized [id number] Closed CRS To Schedule (STL) 08/19/2018 08/08/2019 99 99 Encounter Details Date Type Department Care Team (Latest Contact Info) Description 02/28/2019 2:00 PM CDT Office Visit [facility] Orthopedic Surgery - [place] [address] [place] [address] Jennifer Patel, ANP [facility] [address] [id number] S/P right rotator cuff repair (Primary Dx); [...] 68 y.o. Date of : 1950 CSN: [id number] Date of service:02/28/2019 Chief Complaint Patient presents [...] to unspecified cause ??? Essential hypertension ??? [place] (hard of hearing) ??? Motion sickness PSHx: Past Surgical History: Procedure Laterality Date ??? HX HEART CATHETERIZATION 1992 ??? 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 HX VASECTOMY 1980 ??? [facility] COLONOSCOPY FLX DX W/COLLJ SPEC WHEN PFRMD 01/12/2014 COLONOSCOPY performed by Modesta Wise DO at [facility] ??? VA SHLDR ARTHROSCOP,SURG,W/ROTAT CUFF REPR Right 09/30/2018 RIGHT SHOULDER SCOPE W ROTATOR CUFF REPAIR, SUBACROMIAL DECOMPRESSION, W EXTENSIVE DEBRIDEMENT performed by Nehemiah Castellano MD at [facility] CC OR ALLERGIES: Allergies Allergen Reactions ??? Bactrim [Sulfamethoxazole-Trimethoprim] Rash ??? Medrol [Methylprednisolone] Rash and Other (See Comments) redness MEDICATIONS: Current Outpatient Medications Medication Sig Dispense Refill ??? cetirizine-pseudoephedrine sr 12 hour (ZyrTEC-D) 5-120 mg tablet TAKE ONE TABLET BY MOUTH TWO TIMES DAILY. 72 Tablet 5 ??? fluticasone propionate (FLONASE) 50 mcg/spray [place], Suspension nasal inhaler Administer 2 Sprays in [...] level: Not on file Occupational History Employer: [employer] Social Needs ??? Financial resource strain: Not [...] file Gets together: Not on file Attends scientology service: Not on file Active member of [...]
--- OUTSIDE RECORDS SUMMARY | 2024-08-19 13:55 | XMS_ITS | Encounter Summary ---
Author Organization [facility] Address [address] [place] [address] Care Team Providers Care Stereotype Finisher Name Role Phone Unavailable Primary Care Provider Unavailabl e Reason for Visit * Reason Comments Post-op Visit right shoulder sx * Eval and Treat (Routine) - Closed Specialty Diagnoses / Procedures Referred By Contac t Referred To Contact Orthopedic Surgery Diagnoses Complete tear of right rotator cuff Tear of right supraspinatus tendon, initial encounter Ciro Fernandez, DO 107 [facility] 100 [place] [address] [place] [address] [address] [facility] [address] [place] [address] Referral ID Status Reason Start Date Expiration Date V isits Requested Visits Authorized [id number] Closed CRS To Schedule (STL) 08/19/2018 08/08/2019 99 99 Encounter Details Date Type Department Care Team (Latest Contact Info) Description 10/11/2018 11:00 AM MECHANICAL AND AUTO BODY CAR CHECKER Office Visit [facility] [place] [address] [place] [address] [place] [address] Jennifer Patel, ANP [facility] [address] [phone] S/P right rotator cuff repair (Primary Dx); [...] Sign Reading Time Taken Comments Blood Pressure 116/67 10/11/2018 10:59 AM MECHANICAL AND AUTO BODY CAR CHECKER Pulse 73 10/11/2018 10:59 AM MECHANICAL AND AUTO BODY CAR CHECKER Temperature - - Respiratory Rate - - Oxygen Saturation - - Inhaled Oxygen Concentration - - Weight 97.5 kg (215 lb) 10/11/2018 10:59 AM MECHANICAL AND AUTO BODY CAR CHECKER Height 180.3 cm (5' 11 ) 10/11/2018 10:59 AM MECHANICAL AND AUTO BODY CAR CHECKER Body Mass Index 29.99 10/11/2018 10:59 AM MECHANICAL AND AUTO BODY CAR CHECKER documented in this encounter Progress Notes * Jennifer Patel, ANP - 10/12/2018 9:38 AM CST ORTHOPEDIC POST-OP SHOULDER ARTHROSCOPY PROGRESS NOTE Name: Brendon Aldana Age: 68 y.o. Date of : 1950 CSN: [id number] Date of service: 10/11/2018 Chief Complaint Patient presents with ??? Post-op Visit right shoulder sx 09/30/18 Subjective: Brendon Aldana presents for his 2 week postoperative visit following right shoulder arthroscopy with subacromial decompression, and rotator cuff repair. Surgery was on 09/30/2018. Pain is controlled with current analgesics. Medication(s) being used: prescription NSAID's including ibuprofen 800 mg once or twice daily as needed and [place] at bedtime only. The patient reports no wound problems or constitutional symptoms. He has been diligent with ice application until about 2 days ago. He is no longer applying ice. He has been wearing sling as prescribed. PMHx: Past Medical History: Diagnosis Date ??? Community acquired pneumonia ??? Contact dermatitis and other eczema, due to unspecified cause ??? Essential hypertension ??? [place] (hard of hearing) ??? Motion sickness PSHx: Past Surgical History: Procedure Laterality Date ??? HX HEART CATHETERIZATION 1992 ??? 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 HX VASECTOMY 1980 ??? [place] COLONOSCOPY FLX DX W/COLLJ SPEC WHEN PFRMD 01/12/2014 COLONOSCOPY performed by Modesta Wise DO at [facility] GI LAB ??? [place] SHLDR ARTHROSCOP,SURG,W/ROTAT CUFF REPR Right 09/30/2018 RIGHT SHOULDER SCOPE W ROTATOR CUFF REPAIR, SUBACROMIAL DECOMPRESSION, W EXTENSIVE DEBRIDEMENT performed by Nehemiah Castellano MD at [facility] CC OR ALLERGIES: Allergies Allergen Reactions ??? Bactrim [Sulfamethoxazole-Trimethoprim] Rash ??? Medrol [Methylprednisolone] Rash and Other (See Comments) redness MEDICATIONS: Current Outpatient Prescriptions Medication Sig Dispense Refill ??? HYDROcodone-acetaminophen (NORCO) 5-325 mg tablet Take 1 Tablet by mouth every 4 hours as needed for Pain, Moderate. Max Daily Amount: 6 Tablets 30 Tablet 0 ??? ibuprofen (MOTRIN) 800 mg tablet Take 1 Tablet (800 mg) by mouth every 8 hours as needed for Pain, Mild. 60 Tablet 0 ??? omeprazole (PriLOSEC) 20 mg Capsule, Delayed Release(E.C.) Take 1 Capsule (20 mg) by mouth daily. 180 Capsule 0 ??? losartan-hydroCHLOROthiazide (HYZAAR) 50-12.5 mg tablet Take 0.5 Tablets by mouth daily. 30 Tablet 0 ??? simvastatin (ZOCOR) 40 mg tablet Take 1 Tablet (40 mg) by mouth late in the day. 90 Tablet 1 ??? cetirizine-pseudoephedrine sr 12 hour (ZyrTEC-D) 5-120 mg tablet TAKE ONE TABLET BY MOUTH TWO TIMES DAILY. 72 Tablet 5 ??? fluticasone (FLONASE) 50 mcg/spray [place], Suspension Administer 2 Sprays in each nostril [...] Years of education: N/A Occupational History ??? [employer] Social History Main Topics ??? Smoking status: Never Smoker ??? Smokeless tobacco: Never Used ??? Alcohol use No ??? Drug use: No ??? Sexual activity: Not on file Other Topics Concern ??? Not on file Social History Narrative ??? No narrative on file ROS Objective: General : alert, in no distress Braces: Shoulder sling and abduction brace Sutures: Sutures out. Incisions: healing well, no significant drainage, no dehiscence, no significant erythema Sensory: Intact to entire right upper extremity Vascular: 2+ radial pulses, brisk capillary refill Passive forward flexion of the right shoulder to about 90 degrees with external rotation about 20 degrees. Assessment: ORTHOPEDIC IMPRESSION: ICD-10-CM ICD-9-CM 1. S/P right rotator cuff repair Z98.890 V45.89 2. S/P arthroscopy of right shoulder Z98.890 V45.89 3. Status post subacromial decompression Z98.890 V45.89 Plan: PLAN: No orders of the defined types were placed in this encounter. I reviewed arthroscopy pictures with the patient. I explained the surgical findings and surgical procedure. The patient's questions were answered. The patient was given home exercises including pendulum and wall walking exercise. These were demonstrated for the patient. He will continue wearing sling as instructed. He will not return to work at this time. We will revisit possible return to work date at follow-up visit in 4 weeks. Sutures removed today. Steri-Strips applied. Follow up: 4 weeks. ANICAL AND AUTO BODY CAR CHECKER documented in this encounter Plan of Treatment Not on file documented as of this encounter Visit Diagnoses Diagnosis S/P right rotator cuff repair- Primary S/P arthroscopy of right shoulder Status post subacromial decompression documented in this encounter
--- OUTSIDE RECORDS SUMMARY | 2024-08-19 13:55 | XMS_ITS | Encounter Summary ---
Author Organization [facility] Address [address] [place] [address] Care Team Providers Care Art Studio Teacher Name Role Phone Unavailable Primary Care Provider Unavailabl e Encounter Details Date Type Department Care Team (Late st Contact Info) Description 09/29/2018 Orders Only [facility] Orthopedics - [facility] [address] [facility] [address] [place] [address] [place] [address] [place] [phone] Post-op pain (Primary Dx) Social History Tobacco [...]
--- OUTSIDE RECORDS SUMMARY | 2024-08-19 13:55 | XMS_ITS | Encounter Summary ---
Author Organization [facility] Address [address] [place] [address] Care Team Providers Care Blast Furnace Keeper Helper Name Role Phone Unavailable Primary Care Provider Unavailabl e Reason for Visit * Auth/Cert Specialty Diagnoses / Procedures Referred By Contac t Referred To Contact General Surgery Diagnoses Right shoulder rotator cuff tear Procedures OK SHLDR ARTHROSCOP,SURG,W/ROTAT CUFF REPR OK SHOULDER SCOPE BONE SHAVING OK SHLDR ARTHROSCOP,EXTEN DEBRIDE OK REPAIR ROTATOR CUFF,CHRONIC RIGHT SHOULDER SCOPE W ROTATOR CUFF REPAIR, SUBACROMIAL DECOMPRESSION, W EXTENSIVE DERIDEMENT [facility] [address] [place] [address] Referral ID Status Reason Start Date Expiration Date Visits Re quested Visits Authorized [id number] 1 1 Encounter Details Date Type Department Care Team (Late st Contact Info) Description 09/30/2018 9:30 AM DEVELOPER ADVISOR - 09/30/2018 11:27 AM DEVELOPER ADVISOR Surgery [facility] [address] [place] [address] [place] [address] [place] [address] RIGHT SHOULDER SCOPE W ROTATOR [...] Comments Blood Pressure 112/69 09/30/2018 9:10 AM DEVELOPER ADVISOR Pulse 68 09/30/2018 9:10 AM DEVELOPER ADVISOR Temperature 36.4 ??C (97.6 ??F) 09/30/2018 8:28 AM CS T Respiratory Rate 14 09/30/2018 9:10 AM DEVELOPER ADVISOR Oxygen Saturation 95% 09/30/2018 9:10 AM DEVELOPER ADVISOR Inhaled Oxygen Concentration - - Weight 91.6 kg (202 lb) 09/30/2018 8:28 AM DEVELOPER ADVISOR Height 180.3 cm (5' 11 ) 09/30/2018 8:28 AM DEVELOPER ADVISOR Body Mass Index 28.17 09/30/2018 8:28 AM DEVELOPER ADVISOR documented in this encounter Discharge Instructions * Discharge Instructions* Jennifer Patel, ANP - 09/30/2018 11:41 AM DEVELOPER ADVISOR SHOULDER SURGERY DISCHARGE INSTRUCTIONS Nehemiah Castellano MD [facility] Orthopedics [facility] Patient: Brendon Aldana : 1950 Date: 09/30/2018 [...] please call your pharmacy. Narcotic Medication (usually Delaplane or Percocet): Begin taking the narcotic medication [...] front of you. Gently swing your arm [id number] and front to back. Elbow/wrist/hand motion - [...] problems, please contact the office at . LOPER ADVISOR documented in this encounter Medications at Time [...] 5 06/24/2018 01/19/2019 fluticasone (FLONASE) 50 mcg/spray [place], Suspension Administer 2 Sprays in each nostril daily. 48 Gram 3 12/06/2017 12/12/2018 documented as of this encounter H&P Notes * Jennifer Patel ANP - 09/30/2018 8:19 AM CST HISTORY AND PHYSICAL 09/30/2018 PATIENT NAME: Brendon Aldana : 1950 AGE: 68 y.o. CSN: [id number] ORTHOPEDIC PHYSICIAN: Nehemiah Castellano MD PCP: Ciro [...] ?? Patient is employed and works for [email or web address] in [place]. 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 PAST MEDICAL HISTORY: Past Medical History: Diagnosis Date ??? Community acquired pneumonia ??? Contact dermatitis and other eczema, due to unspecified cause ??? Essential hypertension ??? [place] (hard of hearing) ??? Motion sickness PAST SURGICAL HISTORY: Past Surgical History: Procedure Laterality Date ??? HX HEART CATHETERIZATION 1992 ??? 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 HX VASECTOMY 1980 ??? [place] COLONOSCOPY FLX DX W/COLLJ SPEC WHEN PFRMD 01/12/2014 COLONOSCOPY performed by Modesta Wise DO at [facility] GI [facility] SOCIAL HISTORY: Social History Social History ??? Marital status: Spouse name: N/A ??? Number of children: N/A ??? Years of education: N/A Occupational History ??? [employer] Social History Main Topics ??? Smoking [...] Tablet 5 ??? fluticasone (FLONASE) 50 mcg/spray [place], Suspension Administer 2 Sprays in each nostril [...] nontender NEURO: Neurovascularly intact EXTREMITIES: Musculoskeletal: 68-year-old, [id number], white male who presents in no acutedistress. [...] SUBACROMIAL DECOMPRESSION, W EXTENSIVE DERIDEMENT ALICIA Herrera LOPER ADVISOR Associated attestation - Nehemiah Castellano MD - 09/30/2018 8:56 AM DEVELOPER ADVISOR I have reviewed the last H&P and examined the patient today and there are no changes. documented in this encounter OR Notes * Operative Report - Nehemiah Castellano MD - 09/30/2018 11:15 AM CST Operative Report : [facility] Patient: Brendon Aldana / 68 y.o. / male : 1950 Date: 09/30/2018 CSN: [id number] Preoperative Diagnosis: Right shoulder rotator cuff tear Postoperative Diagnosis: Same with impingement Procedure Performed: Right shoulder arthroscopic rotator cuff repair, right shoulder arthroscopic subacromial decompression Surgeon: Nehemiah Castellano MD Data Developer: Jennifer Patel RN ANP Surgical Staff: Master Technician: Katarina Alejandro RN; Barrie Reilly RN Scrub: Yessi Gallegos Senior Counsel Private: Jennifer Patel ANP Anesthesia: General with [...] the procedure well without apparent complications. My financial sales assistant, Jennifer Patel, was present throughout the case and was critical for assistance with this challenging shoulder. Implants: Implant Name Type Inv. Item Serial No. Offshore Diver Lot No. LRB No. Used Action ANCHOR SPEEDBRIDGE W/ BIOCMPST SWIVELCK [id number] - [id number] Russell ANCHOR SPEEDBRIDGE W/ BIOCMPST SWIVELCK [id number] [employer] [id number] Right 1 Implanted Nehemiah Castellano MD LOPER ADVISOR documented in this encounter Plan of Treatment Not on file documented as of this encounter Procedures Procedure Name Priority Date/Time Associated Diagnosis Comments US GUIDE NEEDLE PLACEMENT Routine 09/30/2018 9:43 AM DEVELOPER ADVISOR Acute post-operative pain SHOULDER ARTHROSCOPY 09/30/2018 8:59 AM DEVELOPER ADVISOR Right shoulder rotator cuff tear documented in this encounter Results * US GUIDE NEEDLE PLACEMENT (09/30/2018 9:43 AM DEVELOPER ADVISOR) Narrative 09/30/2018 9:43 AM DEVELOPER ADVISOR Order information only. ??Exam was auto-finalized. ?? [...] 1133, Anesthesia Intra-op Given 09/30/2018 9:53 AM DEVELOPER ADVISOR 6,000 mL Operative Site fentaNYL PF (SUBLIMAZE) 50 mcg/mL injection 25 mcg 25 mcg, IV, POST-PROCEDURE Q 3 MINUTES PRN, Starting on Wed09/30/18 at 0949, Until Wed09/30/18 at 1534, Pain, Moderate, For pain scale 4-6, Routine, PACU lactated ringers infusion IV, at 150 mL/hr, PRE-PROCEDURE CONTINUOUS, Starting on Wed09/30/18 at 0815, Until Wed09/30/18 at 1534, Routine, Pre-op New Bag 09/30/2018 9:54 AM DEVELOPER ADVISOR New Bag 09/30/2018 8:52 AM DEVELOPER ADVISOR 150 mL/hr lactated ringers infusion IV, at 125 mL/hr, POST-PROCEDURE CONTINUOUS, Starting on Wed09/30/18 at 1000, Until Wed09/30/18 at 1534, Routine, PACU lidocaine PF 2 % (XYLOCAINE MPF) injection 0.3 mL 0.3 mL, Infiltration, PRE-PROCEDURE ONCE, Starting on Wed09/30/18 at 0814, Until Wed09/30/18 at 1534, Routine, Pre-op Given 09/30/2018 8:52 AM DEVELOPER ADVISOR 0.3 mL ondansetron (ZOFRAN) 4 mg/2 mL injection 4 mg 4 mg, IV, POST-PROCEDURE ONCE PRN, 1 dose, Starting on Wed09/30/18 at 0949, Until Wed09/30/18 at 1534, Nausea/Emesis, Routine, PACU documented in this encounter Active and Recently Administered Medications Times are shown in DEVELOPER ADVISOR. Scheduled Medication Order 09/28/2018 09/29/2018 09/30/2018 ceFAZolin [...]
--- OUTSIDE RECORDS SUMMARY | 2024-08-19 13:55 | XMS_ITS | Encounter Summary ---
Author Organization [facility] Address [address] [place] [address] Care Team Providers Care Material Lister Name Role Phone Unavailable Primary Care Provider Unavailabl e Reason for Visit * Reason Comments Snoring Sleep Problem Encounter Details Date Type Department Care Team (Late st Contact Info) Description 10/19/2018 10:45 AM CDT Office Visit [facility] Medicine - [address] [place] [address] Ciro Fernandez, DO 107 [facility] [address] [place] [address] Insomnia, unspecified type (Primary Dx) [...] doesn't snore. Insomnia: Patient is complaining of dormitory maid awakening, frequent night time awakening, difficulty falling [...] with history. Insomnia: Patient is complaining of dormitory maid awakening, frequent night time awakening, difficulty falling [...]
--- OUTSIDE RECORDS SUMMARY | 2024-08-19 13:55 | XMS_ITS | Encounter Summary ---
Author Organization [facility] Address [address] [place] [address] Care Team Providers Care Wood Gang Sawyer Name Role Phone Unavailable Primary Care Provider Unavailabl e Reason for Visit * Reason Onset Date Comments Medication Refill 03/13/2019 Encounter Details Date Type Department Care Team (Late st Contact Info) Description 03/13/2019 Refill [facility] [address] [facility] [address] [place] [address] Courtney Weeks PA-Francisco [address] [place] [address] Gastroesophageal reflux disease, esophagitis presence [...]
--- OUTSIDE RECORDS SUMMARY | 2024-08-19 13:55 | XMS_ITS | Encounter Summary ---
Author Organization [facility] Address [address] [place] [address] Care Team Providers Care Chief Pharmacist Name Role Phone Unavailable Primary Care Provider Unavailabl e Reason for Visit * Reason Onset Date Comments Medication Problem 10/17/2018 Encounter Details Date Type Department Care Team (Late st Contact Info) Description 10/17/2018 Telephone [facility] Family Medicine - [facility] [address] [facility] [address] [place] [address] Ciro Fernandez, DO 107 [facility] [address] [place] [address] Medication Problem Social History Tobacco [...] covered first prior to sending on to [employer]. Regardless which change is made, we would want to recheck BP in the office 7 days after starting. * Telephone Encounter - Jennifer Long - 10/17/2018 8:45 AM CDT Pt did get a letter from his rx ins co ([employer]) that Losartan is recalled, should he change to something else? Please advise ([employer] is the recall company) documented in this encounter Plan of Treatment Not on file documented as of this encounter Visit Diagnoses Not on filedocumented in this encounter
--- OUTSIDE RECORDS SUMMARY | 2024-08-19 13:55 | XMS_ITS | Encounter Summary ---
Author Organization [facility] Address [address] [place] [address] Care Team Providers Care Computer Systems Manager Name Role Phone Unavailable Primary Care Provider Unavailabl e Reason for Visit * Reason Onset Date Comments Medication Refill 01/19/2019 Encounter Details Date Type Department Care Team (Late st Contact Info) Description 01/19/2019 Refill [facility] Family Medicine - [address] [place] [address] Ciro Fernandez, DO 107 [facility] [address] [place] [address] Social History Tobacco Use Types [...]
--- OUTSIDE RECORDS SUMMARY | 2024-08-19 13:55 | XMS_ITS | Encounter Summary ---
Author Organization [facility] Address [address] [place] [address] Care Team Providers Care Digital Print Operator Name Role Phone Unavailable Primary Care Provider Unavailabl e Reason for Visit * Reason Comments Follow Up Right Shoulder * Eval and Treat (Routine) - Closed Specialty Diagnoses / Procedures Referred By Georgie gallagher Referred To Contact Orthopedic Surgery Diagnoses Complete tear of right rotator cuff Tear of right supraspinatus tendon, initial encounter Ciro Fernandez, DO 107 [facility] 100 [place] [address] [place] [address] [place] [address] Referral ID Status Reason Start Date Expiration Date V isits Requested Visits Authorized [id number] Closed CRS To Schedule (STL) 08/19/2018 08/08/2019 99 99 Encounter Details Date Type Department Care Team (Latest Contact Info) Description 01/17/2019 2:00 PM CDT Office Visit [facility] Orthopedic Surgery - [place] [address] [place] [address] Jennifer Patel, ANP [facility] [address] [phone] S/P right rotator cuff repair (Primary Dx); [...] 68 y.o. Date of : 1950 CSN: [id number] Date of service: 01/17/2019 Chief Complaint Patient [...] to unspecified cause ??? Essential hypertension ??? [place] (hard of hearing) ??? Motion sickness PSHx: Past Surgical History: Procedure Laterality Date ??? HX HEART CATHETERIZATION 1992 ??? 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 HX VASECTOMY 1980 ??? [place] COLONOSCOPY FLX DX W/COLLJ SPEC WHEN PFRMD 01/12/2014 COLONOSCOPY performed by Modesta Wise, DO at [facility] [place] GI [facility] ??? [place] SHLDR ARTHROSCOP,SURG,W/ROTAT CUFF REPR Right 09/30/2018 RIGHT SHOULDER SCOPE W ROTATOR CUFF REPAIR, SUBACROMIAL DECOMPRESSION, W EXTENSIVE DEBRIDEMENT performed by Nehemiah Castellano MD at [facility] [place] CC OR ALLERGIES: Allergies Allergen Reactions ??? Bactrim [Sulfamethoxazole-Trimethoprim] Rash ??? Medrol [Methylprednisolone] Rash and Other (See Comments) redness MEDICATIONS: Current Outpatient Medications Medication Sig Dispense Refill ??? fluticasone propionate (FLONASE) 50 mcg/spray [place], Suspension nasal inhaler Administer 2 Sprays in [...] level: Not on file Occupational History Employer: [employer] Social Needs ??? Financial resource strain: Not [...] file Gets together: Not on file Attends protestant service: Not on file Active member of [...]
--- OUTSIDE RECORDS SUMMARY | 2024-08-19 13:55 | XMS_ITS | Encounter Summary ---
Author Organization [facility] Address [address] [place] [address] Care Team Providers Care Seamless Tube Mill Operator Name Role Phone Unavailable Primary Care Provider Unavailabl e Reason for Visit * Reason Onset Date Comments Results 03/29/2019 Encounter Details Date Type Department Care Team ([facility] st Contact Info) Description 03/29/2019 Telephone [facility] Family Medicine - [facility] [address] [facility] [address] [place] [address] Ciro Fernandez, DO [address] [facility] [address] [place] [address] Results Social History Tobacco Use [...] Fernandez DO Sent: 03/29/2019 8:42 AM To: [facility] Nurse [place] Your laboratory studies have been received and are overall normal. It is just time to schedule yourphysical and we will discuss further at your Well Adult Exam. * Telephone Encounter - Jennifer Long - 03/29/2019 8:58 AM CDT ----- Message from Luana Hwang CMA sent at 03/29/2019 8:46 AM CDT ----- ----- Message ----- From: Ciro Fernandez DO Sent: 03/29/2019 8:42 AM To: [facility] Nurse [place] Your laboratory studies have been received and are overall normal. It is just time to schedule yourphysical and we will discuss further at your Well Adult Exam. documented in this encounter Plan of Treatment Not on file documented as of this encounter Visit Diagnoses Not on filedocumented in this encounter
--- OUTSIDE RECORDS SUMMARY | 2024-08-19 13:55 | XMS_ITS | Encounter Summary ---
Author Organization [facility] Address [address] [place] [address] Care Team Providers Care Rn Cardiac Name Role Phone Unavailable Primary Care Provider Unavailabl e Reason for Visit * Reason Onset Date Comments Medication Refill 12/12/2018 Encounter Details Date Type Department Care Team (Late st Contact Info) Description 12/12/2018 Refill [facility] Family Medicine - [facility] [address] [facility] [address] [place] [address] Ciro Fernandez, DO [address] [facility] [address] [place] [address] Pure hypercholesterolemia; Essential hypertension, benign [...]
--- OUTSIDE RECORDS SUMMARY | 2024-08-19 13:55 | XMS_ITS | Encounter Summary ---
Author Organization [facility] Address [address] [place] [address] Care Team Providers Care Archival Studies Professor Name Role Phone Unavailable Primary Care [...] DERIDEMENT [facility] [address] [facility] [address] [place] [address] Referral ID Status Reason Start Date Expiration Date Visits Re quested Visits Authorized [id number] 1 1 Encounter Details Date Type Department Care Team (Late st Contact Info) Description 09/30/2018 9:17 AM BOX FOLDING MACHINE OPERATOR Anesthesia Event [facility] [address] [facility] [address] [place] [address] Desiree Tsang Jr., MD [address] [place] [address] Anesthesia Record Procedure Summary Procedure [...] CST Phase I Postanesthesia Evaluation Including Modified Maor Score Patient seen and evaluated: Modified Amor [...] Desiree Tsang Jr, MD 09/30/2018 1:19 PM FOLDING MACHINE OPERATOR * Anesthesia Handoff - Freya Jimenez AA-C [...] 12 SpO2: 100% 11:36 AM SONU Olsen FOLDING MACHINE OPERATOR * Anesthesia Procedure Notes - Desiree Tsang [...] type: Interscalene Laterality: Right Injection technique: Single-shot [place] Identification: ultrasound guided Skin Infiltration: Lidocaine 1% [...] stimuli Narrative Events: easy and well tolerated FOLDING MACHINE OPERATOR * Anesthesia Preprocedure Evaluation - Desiree Tsang [...] Spouse. Plan discussed with Surgeon and Anesthesiologist Display And Banner Designer. Post-op Pain Control Plan to use Block for post-op pain control. FOLDING MACHINE OPERATOR documented in this encounter Plan of Treatment Not on file documented as of this encounter Procedures Procedure Name Priority Date/Time Associated Diagnosis Comments OK ANESTHESIA BLOCK PB PLACEHOLDER CHARGE Routine 09/30/2018 9:43 AM BOX FOLDING MACHINE OPERATOR Procedure Note - Desiree Tsang Jr., MD [...] type: Interscalene Laterality: Right Injection technique: Single-shot [place] Identification: ultrasound guided Skin Infiltration: Lidocaine 1% [...] Indication: Surgical prophylaxis Given 09/30/2018 9:26 AM BOX FOLDING MACHINE OPERATOR 2,000 mg dexamethasone (DECADRON) injection INTRA-PROCEDURE PRN, Starting on Wed09/30/18 at 0943, Until Wed09/30/18 at 1137, Routine, Anesthesia Intra-op Given 09/30/2018 9:43 AM BOX FOLDING MACHINE OPERATOR 6 mg ePHEDrine injection INTRA-PROCEDURE PRN, Starting on Wed09/30/18 at 0955, Until Wed09/30/18 at 1137, Routine, Anesthesia Intra-op Given 09/30/2018 10:55 AM BOX FOLDING MACHINE OPERATOR 5 mg Given 09/30/2018 10:42 AM BOX FOLDING MACHINE OPERATOR 10 mg Given 09/30/2018 10:40 AM BOX FOLDING MACHINE OPERATOR 5 mg fentaNYL PF (SUBLIMAZE) 50 mcg/mL injection INTRA-PROCEDURE PRN, Starting on Wed09/30/18 at 0917, Until Wed09/30/18 at 1137, Pain (See admin instructions), Routine, Anesthesia Intra-op Given 09/30/2018 11:16 AM BOX FOLDING MACHINE OPERATOR 50 mcg Given 09/30/2018 9:00 AM BOX FOLDING MACHINE OPERATOR 50 mcg glycopyrrolate (ROBINUL) injection INTRA-PROCEDURE PRN, Starting on Wed09/30/18 at 1111, Until Wed09/30/18 at 1137, Routine, Anesthesia Intra-op Given 09/30/2018 11:11 AM BOX FOLDING MACHINE OPERATOR 0.4 mg lactated ringers infusion IV, at 150 mL/hr, PRE-PROCEDURE CONTINUOUS, Starting on Wed09/30/18 at 0815, Until Wed09/30/18 at 1534, Routine, Pre-op New Bag 09/30/2018 9:54 AM BOX FOLDING MACHINE OPERATOR New Bag 09/30/2018 8:52 AM BOX FOLDING MACHINE OPERATOR 150 mL/hr midazolam (PF) (VERSED) injection INTRA-PROCEDURE PRN, Starting on Wed09/30/18 at 0917, Until Wed09/30/18 at 1137, Routine, Anesthesia Intra-op Given 09/30/2018 9:00 AM BOX FOLDING MACHINE OPERATOR 2 mg neostigmine (PROSTIGMINE) 4 mg/4 mL (1 mg/mL) injection INTRA-PROCEDURE PRN, Starting on Wed09/30/18 at 1111, Until Wed09/30/18 at 1137, Routine, Anesthesia Intra-op Given 09/30/2018 11:11 AM BOX FOLDING MACHINE OPERATOR 2 mg ondansetron (ZOFRAN) 4 mg/2 mL injection INTRA-PROCEDURE PRN, Starting on Wed09/30/18 at 0943, Until Wed09/30/18 at 1137, Nausea/Emesis, Routine, Anesthesia Intra-op Given 09/30/2018 9:43 AM BOX FOLDING MACHINE OPERATOR 4 mg propofol (DIPRIVAN) injection INTRA-PROCEDURE PRN, Starting on Wed09/30/18 at 0921, Until Wed09/30/18 at 1137, Anesthesia Intra-op Given 09/30/2018 11:16 AM BOX FOLDING MACHINE OPERATOR 50 mg Given 09/30/2018 9:21 AM BOX FOLDING MACHINE OPERATOR 200 mg Given 09/30/2018 9:00 AM BOX FOLDING MACHINE OPERATOR 40 mg rocuronium (ZEMURON) injection INTRA-PROCEDURE PRN, Starting on Wed09/30/18 at 0922, Until Wed09/30/18 at 1137, Routine, Anesthesia Intra-op Given 09/30/2018 9:22 AM BOX FOLDING MACHINE OPERATOR 40 mg documented in this encounter
--- OUTSIDE RECORDS SUMMARY | 2024-08-19 13:55 | XMS_ITS | Encounter Summary ---
Author Organization [facility] Address [address] [place] [address] Care Team Providers Care Manager Commodities Name Role Phone Unavailable Primary Care Provider Unavailabl e Reason for Visit * Reason Comments Cough drainage Encounter Details Date Type Department Care Team (Late st Contact Info) Description 09/21/2018 3:30 PM BLEACH BOILER PACKER [facility] Visit [facility] Medicine [facility] Kwabena [address] [facility] [facility] [address] [place] [address] Ciro Fernandez, DO [address] [facility] [address] [place] [address] Bilateral otitis media with effusion [...] Comments Blood Pressure 116/70 09/21/2018 3:13 PM BLEACH BOILER PACKER Pulse 72 09/21/2018 3:13 PM BLEACH BOILER PACKER Temperature 36.5 ??C (97.7 ??F) 09/21/2018 3:13 PM CS T Respiratory Rate - - Oxygen Saturation - - Inhaled Oxygen Concentration - - Weight 96.2 kg (212 lb) 09/21/2018 3:13 PM BLEACH BOILER PACKER Height 180.3 cm (5' 11 ) 09/21/2018 3:13 PM BLEACH BOILER PACKER Body Mass Index 29.57 09/21/2018 3:13 PM BLEACH BOILER PACKER documented in this encounter Progress Notes * [...] worsen or fail to improve as anticipated. CH BOILER PACKER documented in this encounter Plan of Treatment Not on file documented as of this encounter Visit Diagnoses Diagnosis Bilateral otitis media with effusion- Primary Nonsuppurative otitis media, not specified as acute or chronic Acute non-recurrent frontal sinusitis documented in this encounter
--- OUTSIDE RECORDS SUMMARY | 2024-08-19 13:55 | XMS_ITS | Encounter Summary ---
Author Organization [facility] Address [address] [place] [address] Care Team Providers Care Regional Marketing Manager Name Role Phone Unavailable Primary Care Provider Unavailabl e Reason for Visit * Reason Onset Date Comments Results 09/15/2018 labs, chest xray Encounter Details Date Type Department Care Team (Late st Contact Info) Description 09/15/2018 Telephone [facility] Medicine - [facility] Abundio Yuan [address] [place] [address] Ciro Fernandez, DO [address] [place] [address] Results (labs, chest xray) Social [...] 2:19 PM CST Patient notified and understands. NDS WORKER * Telephone Encounter - Kay Jesus - 09/15/2018 2:06 PM CST ----- Message from Courtney Weeks PA-C sent at 09/15/2018 1:37 PM GROUNDS WORKER ----- Blood Counts: Normal - No Anemia and the White blood count is normal. Normal Electrolytes, Glucose, Kidney Function and Liver Function. NDS WORKER * Telephone Encounter - Kay Jesus - 09/15/2018 2:06 PM CST ----- Message from Courtney Weeks PA-C sent at 09/15/2018 1:37 PM GROUNDS WORKER ----- CXR overall normal - normal heart size, lungs clear. There are some degenerative changes located inthe thoracic spine including syndesmophytes (bony growths in ligaments). NDS WORKER documented in this encounter Plan of Treatment Not on file documented as of this encounter Visit Diagnoses Not on filedocumented in this encounter
--- OUTSIDE RECORDS SUMMARY | 2024-08-19 13:55 | XMS_ITS | Encounter Summary ---
Author Organization [facility] Address [address] [place] [address] Care Team Providers Care Senior Accounts Payable Clerk Name Role Phone Unavailable Primary Care Provider Unavailabl e Reason for Visit * Reason Comments Follow Up Right Shoulder * Eval and Treat (Routine) - Closed Specialty Diagnoses / Procedures Referred By Georgie gallagher Referred To Contact Orthopedic Surgery Diagnoses Complete tear of right rotator cuff Tear of right supraspinatus tendon, initial encounter Ciro Fernandez, DO [address] [facility] [address] [place] [address] [place] [address] [place] [address] Referral ID Status Reason Start Date Expiration Date V isits Requested Visits Authorized [id number] Closed CRS To Schedule (STL) 08/19/2018 08/08/2019 99 99 Encounter Details Date Type Department Care Team (Latest Contact Info) Description 12/06/2018 10:30 AM CDT Office Visit [facility] Orthopedic Surgery - [place] [address] [place] [address] Jennifer Patel, ANP [facility] [address] [address] S/P right rotator cuff repair (Primary Dx); [...] Progress Notes * Jennifer Patel, ANP - 12/06/2018 4:03 PM CDT ORTHOPEDIC POST-OP SHOULDER ARTHROSCOPY PROGRESS NOTE Name: Brendon Aldana Age: 68 y.o. Date of : 1950 CSN: [id number] Date of service: 12/06/2018 Chief Complaint Patient [...] to unspecified cause ??? Essential hypertension ??? [place] (hard of hearing) ??? Motion sickness PSHx: Past Surgical History: Procedure Laterality Date ??? HX HEART CATHETERIZATION 1992 ??? 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 HX VASECTOMY 1980 ??? [place] COLONOSCOPY FLX DX W/COLLJ SPEC WHEN PFRMD 01/12/2014 COLONOSCOPY performed by Modesta Wise DO at [facility] GI [facility] ??? [place] SHLDR ARTHROSCOP,SURG,W/ROTAT CUFF REPR Right 09/30/2018 RIGHT SHOULDER SCOPE W ROTATOR CUFF REPAIR, SUBACROMIAL DECOMPRESSION, W EXTENSIVE DEBRIDEMENT performed by Nehemiah Castellano MD at [facility] CC OR ALLERGIES: Allergies Allergen [...] Tablet 5 ??? fluticasone (FLONASE) 50 mcg/spray [place], Suspension Administer 2 Sprays in each nostril [...] level: Not on file Occupational History Employer: [employer] Social Needs ??? Financial resource strain: Not [...] file Gets together: Not on file Attends cheondoism service: Not on file Active member of [...]
--- OUTSIDE RECORDS SUMMARY | 2024-08-19 13:55 | XMS_ITS | Encounter Summary ---
Author Organization [facility] Address [address] [place] [address] Care Team Providers Care Clinical Nursing Director Name Role Phone Unavailable Primary Care Provider Unavailabl e Reason for Referral * Eval and Treat (Routine) - Closed Specialty Diagnoses / Procedures Referred By Contjeanie t Referred To Contact Multi Specialty Diagnoses Fecal occult blood test positive Fecal occult blood test positive Procedures COLON Ciro Fernandez DO [address] [facility] [address] [place] [address] Modesta Wise DO [address] [address] Referral ID Status Reason Start Date Expiration Date V isits Requested Visits Authorized [id number] Closed CRS To Schedule (STL) 07/24/2019 07/23/2020 3 3 Reason for Visit * Reason Comments Physical follow up labs Encounter Details Date Type Department Care Team (Latest Contact Info) Description 04/18/2019 8:30 AM CDT Office Visit [facility] Medicine - [address] [place] [address] Ciro Fernandez DO [address] [place] [address] Well adult exam (Primary Dx); [...] on the job. States they were downsizing [id number]. He has not found a new job [...] no falls in the past year. Social Support/[place]: Patient resides with spouse in home. Tobacco [...] keeping follow-up appointments. All questions were answered. Ndznd-Eting-Apquhkp will be provided to patient upon check-out. [...] was normal The 10-year ASCVD risk score (Ely PENELOPE Jr., et al., 2013) is: 11.5% [...] Creatinine, Urine 73 20 - 320 mg/dL [facility] MICROALBUMIN, URINE 0.4 See Note: mg/dL [facility] Comment: Reference Range: Reference Range Not established MICROALBUMIN/CREAT RATIO, UR 5 <30 mcg/mg creat [facility] Comment: The ADA defines abnormalities in albumin excretion as follows: Category ? Result (mcg/mg creatinine) Normal ?<30 Microalbuminuria ? 30-299 Clinical albuminuria ?? > OR = 300 The ADA recommends that at least two of three specimens collected within a 3-6 month period be abnormal before considering a patient to be within a diagnostic category. Test Performed at: [facility] [address], [place] ??[phone] Agus Valente D.O., MPH Urine URINE SPECIMEN OBTAINED BY CLEAN CATCH PROCEDURE / Unknown 01/24/2020 3:09 AM CDT Ciro Fernandez DO URINE ORDERABLES [facility] [address] [place] [address] * PSA (01/24/2020 3:09 AM CDT) PSA 0.4 < OR = 4.0 ng/mL [facility] Comment: The total PSA value from [...] disease. FASTING:YES FASTING: YES Test Performed at: [facility] [address], [place] ??[address] Agus Valente D.O., MPH Blood 01/24/2020 3:09 AM CDT Ciro Fernandez DO CHEMISTRY ORDERABLES Performing Organization Address [facility] de Phone Number [facility] [address] [place] [address] * (ABNORMAL) HEMOGLOBIN A1C (01/24/2020 3:09 AM CDT) HEMOGLOBIN A1C 6.1(H) <5.7 % of total Hgb [facility] Comment: For someone without known diabetes, [...] of diabetes for children. Test Performed at: [facility] [address], [place] ??[phone] Agus Valente D.O., MPH Blood 01/24/2020 3:09 AM CDT Ciro Fernandez DO CHEMISTRY ORDERABLES Performing Organization Address [facility] Co de Phone Number [facility] [address] [place] [address] * COMPREHENSIVE METABOLIC PANEL (01/24/2020 3:09 AM CDT) GLUCOSE 99 65 - 99 mg/dL [facility] Comment:Fasting reference in terval BUN 15 7 - 25 mg/dL [facility] . [facility] CREATININE 0.91 0.70 - 1.25 mg/dL [facility] Comment: For patients >49 years of age, the reference limit for Creatinine is approximately 13% higher for people identified as -Maldivian. GFR 87 > OR = 60 mL/min/1 .73m2 [facility] GFR, 101 > OR = 60 mL/min/1 .73m2 [facility] . [facility] BUN/CREAT RATIO NOT APPLICABLE 6 - 22 (calc) [facility] SODIUM 139 135 - 146 mmol/L [facility] . [facility] POTASSIUM 4.9 3.5 - 5.3 mmol/L [facility] . [facility] CHLORIDE 102 98 - 110 mmol/L [facility] . [facility] CO2 29 20 - 32 mmol/L [facility] . [place] CALCIUM 9.4 8.6 - 10.3 mg/dL [facility] . [facility] TOTAL PROTEIN 6.9 6.1 - 8.1 g/dL [facility] ALBUMIN 3.9 3.6 - 5.1 g/dL [facility] . [place] GLOBULIN 3.0 1.9 - 3.7 g/dL (calc) [facility] . [facility] ALBUMIN/GLOBULIN RATIO 1.3 1.0 - 2.5 (calc) [facility] BILIRUBIN TOTAL 0.8 0.2 - 1.2 mg/dL [facility] ALKALINE PHOSPHATASE 96 35 - 144 U/L [facility] . [facility] AST 18 10 - 35 U/L [facility] . [facility] ALT 42 9 - 46 U/L [facility] Comment: Test Performed at: [facility] [address] [place] ??[phone] Agus Valente D.O., MPH Blood 01/24/2020 3:09 AM CDT Ciro Fernandez DO CHEMISTRY ORDERABLES [facility] [address] [place] [address] * LIPID PANEL (01/24/2020 3:09 AM CDT) Pathologist [facility] CHOLESTEROL 147 <200 mg/dL [facility] HDL 56 > OR = 40 mg/dL [facility] TRIGLYCERIDE 111 <150 mg/dL [facility] LDL CALCULATED 72 mg/dL (calc) [facility] Comment: Reference range: <100 Desirable range <100 mg/dL for primary prevention; ?? <70 mg/dL for patients with CHD or diabetic patients with > or = 2 CHD risk factors. LDL-C is now calculated using the Steve calculation, which is a validated novel method providing better accuracy than the Friedewald equation in the estimation of LDL-C. Michele SS et al. JACIEL. 2013;310(19): 7330-1844 (http://education.GeneriMed/faq/TXK024) CHOL/HDL RATIO 2.6 <5.0 (calc) [facility] TOTAL NON-HDL CHOL(LDL+VLDL) 91 <130 mg/dL (calc) [facility] Comment: For patients with diabetes plus 1 major ASCVD risk factor, treating to a non-HDL-C goal of <100 mg/dL (LDL-C of <70 mg/dL) is considered a therapeutic option. Test Performed at: [facility] ??[address] Agus Valente D.O., MPH Blood 01/24/2020 3:09 AM CDT Ciro Fernandez DO CHEMISTRY ORDERABLES [facility] [address] [place] [address] * (ABNORMAL) OCCULT BLOOD IMMUNOASSAY, COLORECTAL SCREEN (04/26/2019 9:19 PM CDT) Pathologist [facility] OCCULT BLOOD, STOOL Positive(A ) Negative 04/27/2019 11:28 PM CDT [facility] Stool STOOL SPECIMEN / Unknown Collection / Unknown 04/26/2019 9:19 PM CDT 04/27/2019 9:19 PM CDT Ciro Fernandez DO BODY FLUIDS AND KAYLA GARCIA Performing Organization Address City/[facility] Co de Phone Number [facility] LABORATORY SERVICES [facility]# [id number] [address] [facility] [address] [place] [address] documented in this encounter Visit Diagnoses Diagnosis [...]
--- OUTSIDE RECORDS SUMMARY | 2024-08-19 13:55 | XMS_ITS | Encounter Summary ---
Author Organization [facility] Address [address] [place] [address] Care Team Providers Care Heat Engineering Teacher Name Role Phone Unavailable Primary Care Provider Unavailabl e Reason for Visit * Reason Comments Post-op Visit Rt shoulder * Eval and Treat (Routine) - Closed Specialty Diagnoses / Procedures Referred By Contac t Referred To Contact Orthopedic Surgery Diagnoses Complete tear of right rotator cuff Tear of right supraspinatus tendon, initial encounter Ciro Fernandez, DO [address] [facility] [address] [place] [address] [place] [address] [place] [address] Referral ID Status Reason Start Date Expiration Date V isits Requested Visits Authorized [id number] Closed CRS To Schedule (STL) 08/19/2018 08/08/2019 99 99 Encounter Details Date Type Department Care Team (Latest Contact Info) Description 11/08/2018 1:45 PM CDT Office Visit [facility] Orthopedic Surgery - [place] [id number] [place] [address] [place] [address] Jennifer Patel, ANP [address] [phone] S/P right rotator cuff repair (Primary Dx); [...] 68 y.o. Date of : 1950 CSN: [id number] Date of service: 11/08/2018 Chief Complaint Patient [...] to unspecified cause ??? Essential hypertension ??? [place] (hard of hearing) ??? Motion sickness PSHx: Past Surgical History: Procedure Laterality Date ??? HX HEART CATHETERIZATION 1992 ??? 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 HX VASECTOMY 1980 ??? [place] COLONOSCOPY FLX DX W/COLLJ SPEC WHEN PFRMD 01/12/2014 COLONOSCOPY performed by Modesta Wise, DO at [facility] ??? [place] SHLDR ARTHROSCOP,SURG,W/ROTAT CUFF REPR Right 09/30/2018 RIGHT [...] tablet Take 1 Tablet by mouth daily metal engraver. 30 Tablet 1 ??? ibuprofen (MOTRIN) 800 [...] Tablet 5 ??? fluticasone (FLONASE) 50 mcg/spray [place], Suspension Administer 2 Sprays in each nostril [...] Years of education: N/A Occupational History ??? [employer] Social History Main Topics ??? Smoking status: [...]
--- OUTSIDE RECORDS SUMMARY | 2024-08-19 13:55 | XMS_ITS | Encounter Summary ---
Author Organization [facility] Address [address] [place] [address] Care Team Providers Care Food Preparation Worker Name Role Phone Unavailable Primary Care Provider Unavailabl e Reason for Visit * Reason Comments Hypertension follow up labs Cholesterol Problem Encounter Details Date Type Department Care Team (Late st Contact Info) Description 11/17/2018 1:45 PM CDT Office Visit [facility] Family Medicine - Bushra Yuan [address] [facility] [address] [place] [address] Ciro Fernandez, DO [address] [facility] [address] [place] [address] Essential hypertension, benign (Primary Dx); [...] moving at the end of December to [place]. Hypertension: Current medication(s) reviewed. Taking and tolerating [...] A1C 6.0(H) <5.7 % of total Hgb [facility] Comment: For someone without [...] children. FASTING:YES FASTING: YES Test Performed at: [facility] [address] [place] ??[phone] Agus Valente D.O., MPH Blood 03/28/2019 2:12 AM CDT Ciro Fernandez DO CHEMISTRY ORDERABLES [facility] [address] [place] [address] * (ABNORMAL) COMPREHENSIVE METABOLIC PANEL (03/28/2019 2:12 AM CDT) GLUCOSE 101(H) 65 - 99 mg/dL [facility] Comment: ? Fasting reference interval For someone without known diabetes, a glucose value between 100 and 125 mg/dL is consistent with prediabetes and should be confirmed with a follow-up test. BUN 12 7 - 25 mg/dL [facility] CREATININE 0.93 0.70 - 1.25 mg/dL [facility] Comment: For patients >49 years of age, the reference limit for Creatinine is approximately 13% higher for people identified as -Syrian. GFR 85 > OR = 60 mL/min/1 .73m2 [facility] GFR, 98 > OR = 60 mL/min/1 .73m2 [facility] BUN/CREAT RATIO NOT APPLICABLE 6 - 22 (calc) [facility] SODIUM 141 135 - 146 mmol/L [facility] POTASSIUM 4.6 3.5 - 5.3 mmol/L [facility] CHLORIDE 104 98 - 110 mmol/L [facility] . [facility] CO2 28 20 - 32 mmol/L [facility] CALCIUM 9.5 8.6 - 10.3 mg/dL [facility] TOTAL PROTEIN 6.9 6.1 - 8.1 g/dL [facility] ALBUMIN 4.0 3.6 - 5.1 g/dL [facility] GLOBULIN 2.9 1.9 - 3.7 g/dL (calc) [facility] ALBUMIN/GLOBULIN RATIO 1.4 1.0 - 2.5 (calc) [facility] BILIRUBIN TOTAL 0.7 0.2 - 1.2 mg/dL [facility] ALKALINE PHOSPHATASE 61 40 - 115 U/L [facility] AST 23 10 - 35 U/L [facility] [employer] [facility] ALT 31 9 - 46 U/L [facility] Comment: Test Performed at: [facility] [address] [place] [address] ??[phone] Agus Valente D.O., MPH Blood 03/28/2019 2:12 AM CDT Ciro Fernandez DO CHEMISTRY ORDERABLES Performing Organization Address [facility]/ZIP Co de Phone Number [facility] . [address] [place] [address] * LIPID PANEL (03/28/2019 2:12 AM CDT) CHOLESTEROL 149 <200 mg/dL [facility] HDL 44 >40 mg/dL [facility] TRIGLYCERIDE 133 <150 mg/dL [facility] LDL CALCULATED 82 mg/dL (calc) [facility] Comment: Reference range: [...] LDL-C. Michele ELLIS et al. JACIEL. 2013;310(19): 1271-9178 (http://education.Zoji/faq/SUU411) CHOL/HDL RATIO 3.4 <5.0 (calc) [facility] TOTAL NON-HDL CHOL(LDL+VLDL) 105 <130 mg/dL (calc) [facility] Comment: For patients with diabetes plus 1 major ASCVD risk factor, treating to a non-HDL-C goal of <100 mg/dL (LDL-C of <70 mg/dL) is considered a therapeutic option. Test Performed at: [facility] ??[phone] Agus Valente D.O., MPH Blood 03/28/2019 2:12 AM CDT Ciro Fernandez DO CHEMISTRY ORDERABLES Performing Organization Address [facility] Co de Phone Number [facility] [address] [place] [address] documented in this encounter Visit Diagnoses Diagnosis Essential hypertension, benign- Primary Pure hypercholesterolemia Prediabetes Other abnormal glucose Need for Tdap vaccination Need for prophylactic vaccination with combined kmlaglreag-sdjuvdz-otwgzyics (DTP) vaccine Need for pneumococcal vaccine Need for prophylactic vaccination against streptococcus pneumoniae (pneumococcus) documented in this encounter
--- OUTSIDE RECORDS SUMMARY | 2024-08-19 13:55 | XMS_ITS | Encounter Summary ---
Author Organization [facility] Address [address] [place] [address] Care Team Providers Care Rigging Helper Name Role Phone Unavailable Primary Care Provider Unavailabl e Encounter Details Date Type Department Care Team (Late st Contact Info) Description 10/03/2018 Abstract [facility] Medicine - Bushra Yuan [address] [facility] [address] [place] [address] Ciro Fernandez, DO [address] [facility] [address] [place] [address] Social History Tobacco Use Types [...]
--- OUTSIDE RECORDS SUMMARY | 2024-08-19 13:55 | XMS_ITS | Encounter Summary ---
Author Organization [facility] Address [address] [place] [address] Care Team Providers Care Street Sprinkler Name Role Phone Unavailable Primary Care Provider Unavailabl e Reason for Referral * Radiology Services (Routine) - Closed Specialty Diagnoses / Procedures Referred By Contac t Referred To Contact Diagnoses Acute post-operative pain Procedures US GUIDE NEEDLE PLACEMENT Sharan Hodgson, Andres Hutchins MD [address] [place] [address] Referral ID Status Reason Start Date Expiration Date Visits Re quested Visits Authorized [id number] Closed 09/29/2018 10/30/2019 1 1 ING COWS WORKER Reason for Visit * Auth/Cert Specialty Diagnoses / Procedures Referred By Contac t Referred To Contact General Surgery Diagnoses Right shoulder rotator cuff tear Procedures NV SHLDR ARTHROSCOP,SURG,W/ROTAT CUFF REPR NV SHOULDER SCOPE BONE SHAVING NV SHLDR ARTHROSCOP,EXTEN DEBRIDE NV REPAIR ROTATOR CUFF,CHRONIC RIGHT SHOULDER SCOPE W ROTATOR CUFF REPAIR, SUBACROMIAL DECOMPRESSION, W EXTENSIVE DERIDEMENT [facility] [address] [facility] [address] [place] [address] Referral ID Status Reason Start Date Expiration Date Visits Re quested Visits Authorized [id number] 1 1 Encounter Details Date Type Department Care Team (Latest Contact Info) Description 09/30/2018 7:35 AM SORTING COWS WORKER - 09/30/2018 1:27 PM SORTING COWS WORKER Hospital Encounter [facility] [address] [facility] [address] [place] [address] [place] [address] [place] [address] S/P arthroscopy of right shoulder [...] Comments Blood Pressure 129/77 09/30/2018 12:55 PM SORTING COWS WORKER Pulse 68 09/30/2018 12:55 PM SORTING COWS WORKER Temperature 36.7 ??C (98.1 ??F) 09/30/2018 11:[address] Respiratory Rate 25 09/30/2018 12:55 PM SORTING COWS WORKER Oxygen Saturation 93% 09/30/2018 12:55 PM SORTING COWS WORKER Inhaled Oxygen Concentration - - Weight 91.6 kg (202 lb) 09/30/2018 8:28 AM SORTING COWS WORKER Height 180.3 cm (5' 11 ) 09/30/2018 8:28 AM SORTING COWS WORKER Body Mass Index 28.17 09/30/2018 8:28 AM SORTING COWS WORKER documented in this encounter Discharge Instructions * Discharge Instructions* Jennifer Patel, ANP - 09/30/2018 11:41 AM SORTING COWS WORKER SHOULDER SURGERY DISCHARGE INSTRUCTIONS Nehemiah Castellano MD [facility] Orthopedics [facility] Patient: Brendon Aldana : 1950 Date: 09/30/2018 [...] please call your pharmacy. Narcotic Medication (usually Eagle or Percocet): Begin taking the narcotic medication [...] front of you. Gently swing your arm mvcc-ay-wyva and front to back. Elbow/wrist/hand motion - [...] please contact the office at . ING COWS WORKER documented in this encounter Medications at Time [...] 5 06/24/2018 01/19/2019 fluticasone (FLONASE) 50 mcg/spray [place], Suspension Administer 2 Sprays in each nostril daily. 48 Gram 3 12/06/2017 12/12/2018 documented as of this encounter H&P Notes * Jennifer Patel ANP - 09/30/2018 8:19 AM CST HISTORY AND PHYSICAL 09/30/2018 PATIENT NAME: Brendno Aldana : 1950 AGE: 68 y.o. CSN: [id number] ORTHOPEDIC PHYSICIAN: Nehemiah Castellano MD PCP: Ciro [...] ?? Patient is employed and works for [employer] in [place]. 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 PAST MEDICAL HISTORY: Past Medical History: Diagnosis Date ??? Community acquired pneumonia ??? Contact dermatitis and other eczema, due to unspecified cause ??? Essential hypertension ??? [place] (hard of hearing) ??? Motion sickness PAST SURGICAL HISTORY: Past Surgical History: Procedure Laterality Date ??? HX HEART CATHETERIZATION 1992 ??? 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 HX VASECTOMY 1980 ??? NV COLONOSCOPY FLX DX W/COLLJ SPEC WHEN PFRMD 01/12/2014 COLONOSCOPY performed by Modesta Wise DO at [facility] SOCIAL HISTORY: Social History Social History ??? Marital status: Spouse name: N/A ??? Number of children: N/A ??? Years of education: N/A Occupational History ??? [employer] Social History Main Topics ??? Smoking [...] Tablet 5 ??? fluticasone (FLONASE) 50 mcg/spray [place], Suspension Administer 2 Sprays in each nostril [...] nontender NEURO: Neurovascularly intact EXTREMITIES: Musculoskeletal: 68-year-old, fiqrz-pzsz-myjlpuhu, white male who presents in no acutedistress. [...] DECOMPRESSION, W EXTENSIVE DERIDEMENT ALICIA Herrera ING COWS WORKER Associated attestation - Nehemiah Castellano MD - 09/30/2018 8:56 AM SORTING COWS WORKER I have reviewed the last H&P and examined the patient today and there are no changes. documented in this encounter OR Notes * Operative Report - Nehemiah Castellano MD - 09/30/2018 11:15 AM CST Operative Report : [facility] Patient: Brendon Aldana / 68 y.o. / male : 1950 Date: 09/30/2018 [facility]: [id number] Preoperative Diagnosis: Right shoulder rotator cuff tear Postoperative Diagnosis: Same with impingement Procedure Performed: Right shoulder arthroscopic rotator cuff repair, right shoulder arthroscopic subacromial decompression Surgeon: Nehemiah Castellano MD Account Liaison Hospice: Jennifer Patel RN, ANP Surgical Staff: Customer Specialist: Katarina Alejandro RN; Barrie Reilly RN Scrub: Yessi [employer] Private: Jennifer Patel ANP Anesthesia: General with [...] posterior to the biceps tendon. The biceps was intact. The superior labrum was intact. There was no significant humeral head or glenoid arthritis. The anterior inferior labrum was intact, and the subscapularis was intact. We made a lateral portal and debrided the undersurface of the rotator cuff with a shaver, and then moved the scope into thesubacromial space. There was a thick subacromial bursa [...] of the rotator cuff insertion on the g reater tuberosity, and then cleaned up the edges [...] the edges together slightly, and then repaired the rotator cuff using the other arms of suture in a crisscross fashion to hold the rotator cuff back down to the greater tuberosity nicely with a double row repair. I had a slight dogear at the anterior edge of the rotator cuff tear, and I used the internal stitch from the anterior lateral row anchorto place a horizontal mattress suture through the rotator cuff here fix that. The repair looked good, and I did a subacromial decompression using the power rasp from lateral and then posterior, converting the acromion to a type I, and co-planing the distal clavicle. I used the shaver to debride bony debris, and maintain hemostasis with the ArthroCare. We documented our findings with pictures and r emoved the arthroscopy instruments, pumped the shoulder free of arthroscopy fluid, and closed the portals with 3-0 Vicryl and 4-0 nylon sutures. The patient was then placed in sterile compressive dressing with a Polar Care and UltraSling, and awakened from general anesthetic, extubated, and taken from the operating room to the recovery room having tolerated the procedure well without apparent complications. My optometric assistant, Jennifer Patel, was present throughout the case and was critical for assistance with this challenging shoulder. Implants: Implant Name Type Inv. Item Serial No. Manager Office Services Lot No. LRB No. Used Action ANCHOR SPEEDBRIDGE W/ BIOCMPST SWIVELCK [id number] - [id number] [place] ANCHOR SPEEDBRIDGE W/ BIOCMPST SWIVELCK [id number] [employer] [id number] Right 1 Implanted Nehemiah Castellano MD ING COWS WORKER documented in this encounter Plan of Treatment Not on file documented as of this encounter Procedures Procedure Name Priority Date/Time Associated Diagnosis Comments US GUIDE NEEDLE PLACEMENT Routine 09/30/2018 9:43 AM SORTING COWS WORKER Acute post-operative pain SHOULDER ARTHROSCOPY 09/30/2018 8:59 AM SORTING COWS WORKER Right shoulder rotator cuff tear documented in this encounter Results * US GUIDE NEEDLE PLACEMENT (09/30/2018 9:43 AM SORTING COWS WORKER) Narrative 09/30/2018 9:43 AM SORTING COWS WORKER Order information only. ??Exam was auto-finalized. ?? [...] Routine, Pre-op New Bag 09/30/2018 9:54 AM SORTING COWS WORKER New Bag 09/30/2018 8:52 AM SORTING COWS WORKER 150 mL/hr lactated ringers infusion IV, at 125 mL/hr, POST-PROCEDURE CONTINUOUS, Starting on Wed09/30/18 at 1000, Until Wed09/30/18 at 1534, Routine, PACU lidocaine PF 2 % (XYLOCAINE MPF) injection 0.3 mL 0.3 mL, Infiltration, PRE-PROCEDURE ONCE, Starting on Wed09/30/18 at 0814, Until Wed09/30/18 at 1534, Routine, Pre-op Given 09/30/2018 8:52 AM SORTING COWS WORKER 0.3 mL ondansetron (ZOFRAN) 4 mg/2 mL injection 4 mg 4 mg, IV, POST-PROCEDURE ONCE PRN, 1 dose, Starting on Wed09/30/18 at 0949, Until Wed09/30/18 at 1534, Nausea/Emesis, Routine, PACU documented in this encounter Active and Recently Administered Medications Times are shown in SORTING COWS WORKER. Scheduled Medication Order 09/28/2018 09/29/2018 09/30/2018 ceFAZolin [...]
--- OUTSIDE RECORDS SUMMARY | 2024-08-19 13:55 | XMS_ITS | Encounter Summary ---
Author Organization [facility] Address [address] [place] [address] Care Team Providers Care Customer Support Consultant Name Role Phone Unavailable Primary Care Provider Unavailabl e Reason for Visit * Reason Onset Date Comments Medication Refill 03/13/2019 Encounter Details Date Type Department Care Team (Late st Contact Info) Description 03/13/2019 Refill [facility] Family Medicine - [facility] Abundio Yuan [address] [facility] [address] [place] [address] Ciro Fernandez, DO [address] [facility] [address] [place] [address] Pure hypercholesterolemia; Essential hypertension, benign [...]
--- OUTSIDE RECORDS SUMMARY | 2024-08-19 13:56 | XMS_ITS | Encounter Summary ---
Author Organization [facility] Address [address] [place] [address] Care Team Providers Care Salesperson Hosiery Name Role Phone Unavailable Primary Care Provider Unavailabl e Encounter Details Date Type Department Care Team (Late st Contact Info) Description 08/19/2018 Orders Only [facility] Medicine - [facility] Abundoi Claire [address] [facility] [address] [place] [address] Ciro Fernandez DO [address] [facility] [address] [place] [address] Chronic right shoulder pain; Shoulder [...]
--- OUTSIDE RECORDS SUMMARY | 2024-08-19 13:56 | XMS_ITS | Encounter Summary ---
Author Organization [facility] Address [address] [place] [address] Care Team Providers Care Master Automotive Glass Technician Name Role Phone Unavailable Primary Care Provider Unavailabl e Encounter Details Date Type Department Care Team (Latest Contact Info) Description 09/14/2018 4:04 PM CLASS A LINEMAN - 09/14/2018 11:59 PM [facility] Hospital Encounter [facility] Imaging Services [facility] [address] [facility] [address] [place] [address] Courtney Weeks PA-C [address] [place] [address] Discharge Disposition: Home or Self [...] 5 06/24/2018 01/19/2019 fluticasone (FLONASE) 50 mcg/spray [place], Suspension Administer 2 Sprays in each nostril daily. 48 Gram 3 12/06/2017 12/12/2018 documented as of this encounter Plan of Treatment Not on file documented as of this encounter Procedures Procedure Name Priority Date/Time Associated Diagnosis Comments XR CHEST PA AND LATERAL 2 VW Routine 09/14/2018 4:18 PM CLASS A LINEMAN Complete rotator cuff tear or rupture of right shoulder, not specified as traumatic Pre-operative exam documented in this encounter Results * XR CHEST PA AND LATERAL 2 VW (09/14/2018 4:18 PM CLASS A LINEMAN) Anatomical Region Laterality Modality Chest Computed Radiogr aphy 09/14/2018 4:18 PM CLASS A LINEMAN Impressions 09/14/2018 6:53 PM CLASS A LINEMAN IMPRESSION: 1. ??No acute abnormality identified. DICTATION LOCATION: Location 1 - [facility] 09/14/2018 6:53 PM CLASS A LINEMAN XR CHEST PA AND LATERAL 2 VW [...] abnormality identified. DICTATION LOCATION: Location - [facility] Courtney Weeks PA-C [facility] OSTIC IMAGING ORDERABLES documented in this encounter Visit Diagnoses Diagnosis Complete rotator cuff tear or rupture of right shoulder, not specified as traumatic Complete rupture of rotator cuff Pre-operative exam Preoperative examination, unspecified documented in this encounter
--- OUTSIDE RECORDS SUMMARY | 2024-08-19 13:56 | XMS_ITS | Encounter Summary ---
Author Organization [facility] Address [address] [place] [address] Care Team Providers Care Wallet Assembler Name Role Phone Unavailable Primary Care Provider Unavailabl e Reason for Visit * Reason Comments Rash right lower leg Encounter Details Date Type Department Care Team (Late st Contact Info) Description 03/18/2018 1:45 PM CDT Office Visit [facility] Medicine - [facility] Abundio Yuan [address] [facility] [address] [place] [address] Ciro Fernandez, DO [address] [facility] [address] [place] [address] Rash (Primary Dx) Social History [...]
--- OUTSIDE RECORDS SUMMARY | 2024-08-19 13:56 | XMS_ITS | Encounter Summary ---
Author Organization [facility] Address [address] [place] [address] Care Team Providers Care Insurance Healthcare Consultant Name Role Phone Unavailable Primary Care Provider Unavailabl e Encounter Details Date Type Department Care Team (Latest Contact Info) Description 09/06/2018 10:20 AM MANAGER LIGHTING Ancillary Procedure [facility] - [place] [address] [place] [address] [place] [address] Jennifer Patel, [facility] [address] [place] [address] Acute pain of right shoulder Social History [...] 2+ VW RIGHT Routine 09/06/2018 10:25 AM MANAGER LIGHTING Acute pain of right shoulder documented in this encounter Results * XR SHOULDER 2+ VW RIGHT (09/06/2018 10:25 AM MANAGER LIGHTING) Anatomical Region Laterality Modality Upper Extremity Computed Radiogr aphy Narrative 09/30/2018 3:32 PM MANAGER LIGHTING Radiographic Views: 3 views right shoulder were [...]
--- OUTSIDE RECORDS SUMMARY | 2024-08-19 13:56 | XMS_ITS | Encounter Summary ---
Author Organization [facility] Address [address] [place] [address] Care Team Providers Care Automotive Alignment Specialist Name Role Phone Unavailable Primary Care Provider Unavailabl e Reason for Visit * Reason Comments Shoulder Pain right side, preop doe rgery clearance rotator cuff 09-30-[address] Castellano Encounter Details Date Type Department Care Team (Late st Contact Info) Description 09/14/2018 3:30 PM WEB EDITOR Office Visit [facility] Medicine [facility] [address] [facility] [address] [place] [address] Courtney Weeks PA-C [address] [facility] [place] [address] Complete rotator cuff tear or [...] Comments Blood Pressure 110/70 09/14/2018 3:18 PM WEB EDITOR Pulse 80 09/14/2018 3:18 PM WEB EDITOR Temperature 35.9 ??C (96.7 ??F) 09/14/2018 3:18 PM CS T Respiratory Rate - - Oxygen Saturation - - Inhaled Oxygen Concentration - - Weight 96.7 kg (213 lb 3.2 oz) 09/14/2018 3:18 P M WEB EDITOR Height 180.3 cm (5' 11 ) 09/14/2018 3:18 PM WEB EDITOR Body Mass Index 29.74 09/14/2018 3:18 PM WEB EDITOR documented in this encounter Progress Notes * [...] Tablet 5 ??? fluticasone (FLONASE) 50 mcg/spray [place], Suspension Administer 2 Sprays in each nostril [...] to unspecified cause ??? Essential hypertension ??? [place] (hard of hearing) Past Surgical History: Procedure Laterality Date ??? HX HEART CATHETERIZATION 1992 ??? 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 HX VASECTOMY 1980 ??? CT COLONOSCOPY FLX DX W/COLLJ SPEC WHEN PFRMD 01/12/2014 COLONOSCOPY performed by Modesta Wise DO at [facility] GI [facility] Family History Problem Relation Age [...] with surgery as planned, pending labs, CXR. EDITOR documented in this encounter Procedure Notes * Courtney Weeks PA-C - 09/14/2018 4:07 PM CSTAssociated Order(s): EKG 12-LEAD Procedure(s): CT ECG ROUTINE ECG W/LEAST 12 LDS W/I&R Pre-Procedure Diagnose(s): Complete rotator cuff tear or rupture of right shoulder, not specified as traumatic; Pre-operative exam Post-Procedure Diagnose(s): Complete rotator cuff tear or rupture of right shoulder, not specified as traumatic; Pre-operative exam EKG: there are no previous tracings available for comparison, RBBB, left axis deviation. EDITOR documented in this encounter Plan of Treatment Not on file documented as of this encounter Procedures Procedure Name Priority Date/Time Associated Diagnosis Comments CT ECG ROUTINE ECG W/LEAST 12 LDS W/I&R Routine 09/14/2018 4:07 PM WEB EDITOR Complete rotator cuff tear or rupture of right shoulder, not specified as traumatic Pre-operative exam documented in this encounter Results * XR CHEST PA AND LATERAL 2 VW (09/14/2018 4:18 PM WEB EDITOR) Anatomical Region Laterality Modality Chest Computed Radiogr aphy 09/14/2018 4:18 PM WEB EDITOR Impressions 09/14/2018 6:53 PM WEB EDITOR IMPRESSION: 1. ??No acute abnormality identified. DICTATION LOCATION: Location [address] [place] [address] Narrative 09/14/2018 6:53 PM WEB EDITOR XR CHEST PA AND LATERAL 2 VW [...] 1. No acute abnormality identified. DICTATION LOCATION: [address] Courtney Weeks PA-C DIAGN OSTIC IMAGING ORDERABLES * (ABNORMAL) CT ECG ROUTINE ECG W/LEAST 12 LDS W/I&R (09/14/2018 4:07 PM WEB EDITOR) Narrative [facility] - 09/14/2018 4:07 PM WEB EDITOR Courtney Weeks PA-C ? 09/14/2018 ??4:12 PM EKG: there are no previous tracings available for comparison, RBBB, left axis deviation. Procedure Note Courtney Weeks PA-C - 09/14/2018 4:07 PM CST EKG: there are no previous tracings available for comparison, RBBB, leftaxis deviation. Courtney Weeks PA-C ECG O RDERABLES [facility] CLIA# [id number] [address] [facility] [address] [place] [address] * COMPREHENSIVE METABOLIC PANEL (09/14/2018 4:07 PM WEB EDITOR) SODIUM 144 136 - 145 mmol/L 09/14/2018 9:02 PM WEB EDITOR [facility] POTASSIUM 4.2 3.5 - 5.0 mmol/L 09/14/2018 9:02 PM WEB EDITOR [facility] CHLORIDE 104 98 - 107 mmol/L 09/14/2018 9:02 PM WEB EDITOR [facility] CO2 26 22 - 29 mmol/L 09/14/2018 9:02 PM WEB EDITOR [facility] CALCIUM 9.7 8.6 - 10.2 mg/dL 09/14/2018 9:02 PM WEB EDITOR [facility] BUN 16 8 - 23 mg/dL 09/14/2018 9:02 PM WEB EDITOR [facility] CREATININE 1.03 0.67 - 1.17 mg/dL 09/14/2018 9:02 PM WEB EDITOR [facility] GLUCOSE 93 74 - 99 mg/dL 09/14/2018 9:02 PM WEB EDITOR [facility] TOTAL PROTEIN 7.5 6.7 - 8.6 g/dL 09/14/2018 9:02 PM [facility] ALBUMIN 4.2 3.5 - 5.2 g/dL 09/14/2018 9:02 PM [facility] BILIRUBIN TOTAL 0.4 0.2 - 1.1 mg/dL 09/14/2018 9:02 PM [facility]OR[facility] ALKALINE PHOSPHATASE 67 40 - 129 U/L 09/14/2018 9:02 PM [facility] AST 27 <41 U/L 09/14/2018 9:02 PM [facility] ALT 28 <42 U/L 09/14/2018 9:02 PM [facility] GFR >60 >=60 mL/min/1.7 3 sq meter 09/14/2018 9:02 PM [facility] Comment: eGFR has not been [...] mL/min/1.7 3 sq meter 09/14/2018 9:02 PM [facility] ANION GAP 14 8 - 16 mmol/L 09/14/2018 9:02 PM [facility] Blood Venipuncture / Unknown 09/14/2018 4:07 PM WEB EDITOR 09/14/2018 4:07 PM [facility] Narrative [facility] - 09/14/2018 9:02 PM [facility] Samples containing indocyanine green cause interferences on Total and/or Direct Bilirubin and must not be measured. Courtney Weeks PA-C CHEMI STRY ORDERABLES [facility] CLIA# [id number] [address] [place] [address] * CBC WITH DIFFERENTIAL (09/14/2018 4:07 PM WEB EDITOR) [facility] WBC 9.4 4.0 - 9.8 K/uL 09/14/2018 8:34 PM WEB EDITOR [facility] RBC 5.11 4.50 - 5.40 M/uL 09/14/2018 8:34 PM WEB EDITOR [facility] HEMOGLOBIN 15.6 13.6 - 16.5 g/dL 09/14/2018 8:34 PM WEB EDITOR [facility] HEMATOCRIT 46.5 40.0 - 48.0 % 09/14/2018 8:34 PM [facility] MCV 91.0 82.0 - 99.0 fL 09/14/2018 8:34 PM [facility] - . [facility] MCH 30.5 27.2 - 32.6 pg 09/14/2018 8:34 PM [facility] - . [facility] MCHC 33.5 31.5 - 35.5 g/dL 09/14/2018 8:34 PM [facility] RDW 12.2 11.5 - 14.5 % 09/14/2018 8:34 PM [facility] - . [facility] RDW-STDEV 40.3 37.1 - 48.7 fL 09/14/2018 8:34 PM [facility] PLATELETS 274 140 - 350 K/uL 09/14/2018 8:34 PM [facility] MPV 10.3 9.3 - 12.4 fL 09/14/2018 8:34 PM WEB EDITOR [facility] NEUTROPHILS 50 % 09/14/2018 8:34 PM WEB EDITOR [facility] LYMPHOCYTES 32 % 09/14/2018 8:34 PM WEB EDITOR [facility] MONOCYTES 12 % 09/14/2018 8:34 PM WEB EDITOR [facility] EOSINOPHILS 4 % 09/14/2018 8:34 PM WEB EDITOR [facility] BASOPHILS 1 % 09/14/2018 8:34 PM WEB EDITOR [facility] IMMATURE GRANULOCYTES 0 % 09/14/2018 8:34 PM [facility] NEUTROPHIL ABSOLUTE 4.71 1.90 - 7.00 K/uL 09/14/2018 8:34 PM [facility] LYMPHOCYTE ABSOLUTE 3.00 0.70 - 4.50 K/uL 09/14/2018 8:34 PM [facility] MONOCYTE ABSOLUTE 1.13 0.10 - 1.30 K/uL 09/14/2018 8:34 PM [facility] EOSINOPHIL ABSOLUTE 0.41 0.00 - 0.70 K/uL 09/14/2018 8:34 PM [facility] BASOPHILS ABSOLUTE 0.11 0.00 - 0.20 K/uL 09/14/2018 8:34 PM [facility] - . [facility] IMMATURE GRANULOCYTES ABSOLUTE 0.03 0.00 - 0.03 K/uL 09/14/2018 8:34 PM [facility] Blood Venipuncture / Unknown 09/14/2018 4:07 PM WEB EDITOR 09/14/2018 4:07 PM WEB EDITOR Courtney Weeks PA-C HEMAT OLOGY ORDERABLES [facility]# [id number] [address] [facility] [place] [address] documented in this encounter Visit Diagnoses Diagnosis [...]
--- OUTSIDE RECORDS SUMMARY | 2024-08-19 13:56 | XMS_ITS | Encounter Summary ---
Author Organization [facility] Address [address] [place] [address] Care Team Providers Care Hazmat Tanker Driver Name Role Phone Unavailable Primary Care Provider Unavailabl e Reason for Visit * Reason Onset Date Comments Medication Refill 07/05/2018 Encounter Details Date Type Department Care Team (Late st Contact Info) Description 07/05/2018 Refill [facility] Family Medicine - [facility] Abundio Yuan [address] [facility] [address] [place] [address] Ciro Fernandez DO 107 [facility] [address] [address] [place] [address] Pure hypercholesterolemia Social History Tobacco [...] CSTFrom: Brendon Aldana Sent: 07/05/2018 7:41 AM KNOCK OUT HAND Subject: Medication Renewal Request Brendon Aldana would like a refill of the following medications: simvastatin (ZOCOR) 40 mg tablet [iCro Fernandez DO] Patient Comment: Rx must be written as a 90 day rx and sent to [facility]. Thank you. Preferred pharmacy: [facility] - [place], [place] - [address] [place] [address] Delivery method: Pickup K OUT HAND documented in this encounter Plan of Treatment Not on file documented as of this encounter Visit Diagnoses Diagnosis Pure hypercholesterolemia documented in this encounter
--- OUTSIDE RECORDS SUMMARY | 2024-08-19 13:56 | XMS_ITS | Encounter Summary ---
Author Organization [facility] Address [address] [place] [address] Care Team Providers Care Deputy Bailiff Name Role Phone Unavailable Primary Care Provider Unavailabl e Encounter Details Date Type Department Care Team (Late st Contact Info) Description 09/07/2018 Orders Only [facility] Orthopedic Surgery - [address] [place] [address] [place] [address] [facility] [address] [facility] [address] [place] [address] Social History Tobacco Use Types [...]
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
--- OUTSIDE RECORDS SUMMARY | 2024-08-19 13:56 | XMS_ITS | Encounter Summary ---
Author Organization [facility] Address [address] [place] [address] Care Team Providers Care Production Laborer Name Role Phone Unavailable Primary Care Provider Unavailabl e Reason for Referral * Eval and Treat (Routine) - Closed Specialty Diagnoses / Procedures Referred By Georgie gallagher Referred To Contact Orthopedic Surgery Diagnoses Complete tear of right rotator cuff Tear of right supraspinatus tendon, initial encounter Ciro Fernandez DO 107 [facility] [address] [place] [address] [place] [address] [place] [address] Referral ID Status Reason Start Date Expiration Date V isits Requested Visits Authorized [id number] Closed CRS To Schedule (STL) 08/19/2018 08/08/2019 99 99 RNATIONAL ACCOUNTING MANAGER Reason for Visit * Reason Onset Date Comments Results 08/19/2018 MRI R shoulder Encounter Details Date Type Department Care Team (Late st Contact Info) Description 08/19/2018 Telephone [facility] - [address] [place] [address] Ciro Fernandez DO 107 [facility] [address] [place] [address] Results (MRI R shoulder) Social [...] MRI report emailed to pt. Referral placed. RNATIONAL ACCOUNTING MANAGER * Telephone Encounter - Cristela Herman - 08/19/2018 11:03 AM CST ----- Message from Ciro Fernandez DO sent at 08/19/2018 10:29 AM INTERNATIONAL ACCOUNTING MANAGER ----- MRI of your shoulder did show a full thickness tear of the rotator cuff muscle called the supraspinatus. It also showed minimal AC joint arthritis. With this tear I would recommend orthopedic evaluation. RNATIONAL ACCOUNTING MANAGER documented in this encounter Plan of [...]
--- OUTSIDE RECORDS SUMMARY | 2024-08-19 13:56 | XMS_ITS | Encounter Summary ---
Author Organization [facility] Address [address] [place] [address] Care Team Providers Care Estate Administrator Name Role Phone Unavailable Primary Care Provider Unavailabl e Encounter Details Date Type Department Care Team (Late st Contact Info) Description 09/06/2018 Orders Only [facility] Orthopedic Surgery - [place] [address] [place] [address] [place] [address] Jennifer Patel, [facility] [address] [phone] Social History Tobacco Use Types Packs/Day Years [...]
--- OUTSIDE RECORDS SUMMARY | 2024-08-19 13:56 | XMS_ITS | Encounter Summary ---
Author Organization [facility] Address [address] [place] [address] Care Team Providers Care Cream Separator Operator Name Role Phone Unavailable Primary Care Provider Unavailabl e Reason for Visit * Reason Onset Date Comments Medication Refill 04/14/2018 Encounter Details Date Type Department Care Team (Late st Contact Info) Description 04/15/2018 Refill [facility] Family Medicine - [address] [place] [address] Ciro Fernandez, DO [address] [facility] [address] [place] [address] Social History Tobacco Use Types [...]
--- OUTSIDE RECORDS SUMMARY | 2024-08-19 13:56 | XMS_ITS | Encounter Summary ---
Author Organization [facility] Address [address] [place] [address] Care Team Providers Care Life Sciences Manager Name Role Phone Unavailable Primary Care Provider Unavailabl e Reason for Visit * Reason Onset Date Comments Medication Refill 06/24/2018 Encounter Details Date Type Department Care Team (Late st Contact Info) Description 06/24/2018 Refill [facility] Family Medicine - [facility] Abundio Yuan [address] 107 [facility] [address] [place] [address] Ciro Fernandez, DO [address] [facility] [address] [place] [address] Social History Tobacco Use [...] on: 06/24/2018 10:06 AM Modules accepted: Orders Y GUN STRIPER * Telephone Encounter - Sisi James - 06/24/2018 9:50 AM CST Patient called back and would like script sent to different pharmacy. Script cancelled through [employer]. Y GUN STRIPER documented in this encounter Plan of Treatment Not on file documented as of this encounter Visit Diagnoses Not on filedocumented in this encounter
--- OUTSIDE RECORDS SUMMARY | 2024-08-19 13:56 | XMS_ITS | Encounter Summary ---
Author Organization [facility] Address [address] [place] [address] Care Team Providers Care Pit And Auxiliaries Supervisor Name Role Phone Unavailable Primary Care Provider Unavailabl e Reason for Visit * Reason Comments Hypertension chol,prediabetes, fo llow up labs Encounter Details Date Type Department Care Team (Late st Contact Info) Description 05/12/2018 1:45 PM CDT Office Visit [facility] Medicine - [facility] Lilia Yuan 140 107 [facility] Lilia YUAN [address] [place] [address] Ciro Fernandez, DO 107 [facility] LILIA YUAN [address] [place] [address] Essential hypertension, benign (Primary Dx); [...] risk score: The 10-year ASCVD risk score (Mertens PENELOPE Jr., et al., 2013) is: 10.3% [...] WBC 7.5 3.8 - 10.8 Thousand/u L [facility] RBC 4.93 4.20 - 5.80 Million/uL [facility] HEMOGLOBIN 15.0 13.2 - 17.1 g/dL [facility] HEMATOCRIT 44.1 38.5 - 50.0 % [facility] MCV 89.5 80.0 - 100.0 fL [facility] MCH 30.4 27.0 - 33.0 pg [facility] MCHC 34.0 32.0 - 36.0 g/dL [facility] RDW 12.3 11.0 - 15.0 % [facility] PLATELETS 264 140 - 400 Thousand/u L [facility] MPV 10.1 7.5 - 12.5 fL [facility] Comment: FASTING:YES FASTING: YES Test Performed at: [facility] [facility] [address] [place], [place] ??[phone] Agus Valente D.O., MPH Blood 11/01/2018 2:08 AM CDT Ciro Fernandez DO HEMATOLOGY ORDERABLE S [facility] [address] [place] [address] * MICROALBUMIN/CREATININE RATIO, RANDOM UR (11/01/2018 2:08 AM CDT) Creatinine, Urine 129 20 - 320 mg/dL [facility] [employer] [facility] MICROALBUMIN, URINE 0.4 See Note: mg/dL [facility] Comment: Reference Range: Reference Range Not established MICROALBUMIN/CREAT RATIO, UR 3 <30 mcg/mg creat [facility] Comment: The ADA defines abnormalities in albumin excretion as follows: Category ? Result (mcg/mg creatinine) Normal ?<30 Microalbuminuria ? 30-299 Clinical albuminuria ?? > OR = 300 The ADA recommends that at least two of three specimens collected within a 3-6 month period be abnormal before considering a patient to be within a diagnostic category. Test Performed at: [facility] [address] [place] [address] ??[phone] Agus Valente D.O., MPH Urine URINE SPECIMEN OBTAINED BY CLEAN CATCH PROCEDURE / Unknown 11/01/2018 2:08 AM CDT Ciro Fernandez DO URINE ORDERABLES Performing Organization Address City/State/[facility] Co de Phone Number [facility] [address] [place] [address] * (ABNORMAL) COMPREHENSIVE METABOLIC PANEL (11/01/2018 2:08 AM CDT) GLUCOSE 111(H) 65 - 99 mg/dL [facility] Comment: ? Fasting reference interval For someone without known diabetes, a glucose value between 100 and 125 mg/dL is consistent with prediabetes and should be confirmed with a follow-up test. BUN 18 7 - 25 mg/dL [facility] CREATININE 0.99 0.70 - 1.25 mg/dL [facility] [employer] [facility] Comment: For patients >49 years of age, the reference limit for Creatinine is approximately 13% higher for people identified as -Chadian. GFR 79 > OR = 60 mL/min/1 .73m2 [employer] [facility] GFR, 92 > OR = 60 mL/min/1 .73m2 [facility] BUN/CREAT RATIO NOT APPLICABLE 6 - 22 (calc) [facility] SODIUM 138 135 - 146 mmol/L [facility] . [facility] POTASSIUM 4.6 3.5 - 5.3 mmol/L [facility] . [facility] CHLORIDE 102 98 - 110 mmol/L [facility] . [facility] CO2 28 20 - 32 mmol/L [facility] . [facility] CALCIUM 9.7 8.6 - 10.3 mg/dL [facility] . [facility] TOTAL PROTEIN 7.0 6.1 - 8.1 g/dL [facility] . [facility] ALBUMIN 4.1 3.6 - 5.1 g/dL [facility] . [facility] GLOBULIN 2.9 1.9 - 3.7 g/dL (calc) [facility] ALBUMIN/GLOBULIN RATIO 1.4 1.0 - 2.5 (calc) [facility] BILIRUBIN TOTAL 0.6 0.2 - 1.2 mg/dL [facility] ALKALINE PHOSPHATASE 72 40 - 115 U/L [facility] AST 24 10 - 35 U/L [facility] ALT 33 9 - 46 U/L [facility] [employer] [facility] Comment: Test Performed at: [facility] ??[phone] Agus Valente D.O., MPH Blood 11/01/2018 2:08 AM CDT Ciro Fernandez DO CHEMISTRY ORDERABLES [facility] [address] [place] [address] * LIPID PANEL (11/01/2018 2:08 AM CDT) CHOLESTEROL 153 <200 mg/dL [facility] HDL 46 >40 mg/dL [facility] [employer] . [facility] TRIGLYCERIDE 116 <150 mg/dL [facility] [employer] [facility] LDL CALCULATED 86 mg/dL (calc) [facility] [employer] [facility] Comment: Reference range: <100 Desirable range <100 mg/dL for primary prevention; ?? <70 mg/dL for patients with CHD or diabetic patients with > or = 2 CHD risk factors. LDL-C is now calculated using the Steve calculation, which is a validated novel method providing better accuracy than the Friedewald equation in the estimation of LDL-C. Michele SS et al. JACIEL. 2013;310(19): 4927-5886 (http://education.[facility]/faq/RKL169) CHOL/HDL RATIO 3.3 <5.0 (calc) [facility] TOTAL NON-HDL CHOL(LDL+VLDL) 107 <130 mg/dL (calc) [facility] Comment: For patients with diabetes plus 1 major ASCVD risk factor, treating to a non-HDL-C goal of <100 mg/dL (LDL-C of <70 mg/dL) is considered a therapeutic option. Test Performed at: [facility] [address] [place] [address] ??[phone] Agus Valente D.O., MPH Blood 11/01/2018 2:08 AM CDT Ciro Fernandez DO CHEMISTRY ORDERABLES [facility] [address] [place] [address] * (ABNORMAL) HEMOGLOBIN A1C (11/01/2018 2:08 AM CDT) HEMOGLOBIN A1C 6.1(H) <5.7 % of total Hgb [facility] Comment: For someone without known diabetes, a [...] of diabetes for children. Test Performed at: [facility] [address] [place], [place] ??[phone] Agus Valente D.O., MPH Blood 11/01/2018 2:08 AM CDT Ciro Fernandez DO CHEMISTRY ORDERABLES [employer] [address] [address] documented in this encounter Visit Diagnoses Diagnosis Essential hypertension, benign- Primary Pure hypercholesterolemia Prediabetes Other abnormal glucose Dependent edema Edema Need for immunization against influenza Need for prophylactic vaccination and inoculation against influenza documented in this encounter
--- OUTSIDE RECORDS SUMMARY | 2024-08-19 13:56 | XMS_ITS | Encounter Summary ---
Author Organization [facility] Address [address] [place] [address] Care Team Providers Care Gut Carrier Name Role Phone Unavailable Primary Care Provider Unavailabl e Encounter Details Date Type Department Care Team (Late st Contact Info) Description 08/17/2018 Abstract [facility] Medicine - Bushra Yuan 140 107 [facility] Abundio YUAN [address] [place] [address] Ciro Fernandez, DO 107 [facility] [address] Y[address] [place] [address] Social History Tobacco Use Types [...]
--- OUTSIDE RECORDS SUMMARY | 2024-08-19 13:56 | XMS_ITS | Encounter Summary ---
Author Organization [facility] Address [address] [place] [address] Care Team Providers Care Jewelry Coater Name Role Phone Unavailable Primary Care Provider Unavailabl e Reason for Visit * Reason Onset Date Comments Results 04/18/2018 Encounter Details Date Type Department Care Team (Late st Contact Info) Description 04/18/2018 Telephone [facility] Family Medicine - [facility] Kwabena 150 107 [facility] [address] [place] [address] Ciro Fernandez DO [address] [facility] [address] [place] [address] Results Social History Tobacco Use [...]
--- OUTSIDE RECORDS SUMMARY | 2024-08-19 13:56 | XMS_ITS | Encounter Summary ---
Author Organization [facility] Address [address] [place] [address] Care Team Providers Care Machine Operator Cane Cutter Name Role Phone Unavailable Primary Care Provider Unavailabl e Encounter Details Date Type Department Care Team (Late st Contact Info) Description 09/14/2018 Orders Only [facility] [address] Yuan [address] [place] [address] Ciro Fernandez, DO 107 [facility] [address] [place] [address] Social History Tobacco Use Types [...]
--- OUTSIDE RECORDS SUMMARY | 2024-08-19 13:56 | XMS_ITS | Encounter Summary ---
Author Organization [facility] Address [address] [place] [address] Care Team Providers Care Special Needs Nanny Name Role Phone Unavailable Primary Care Provider Unavailabl e Reason for Visit * Reason Onset Date Comments Medication Refill 06/24/2018 Encounter Details Date Type Department Care Team (Late st Contact Info) Description 06/24/2018 Refill [facility] Family Medicine - [facility] Abundio Yuan [address] [facility] [address] YUAN [address] [place] [address] Ciro Fernandez DO [address] [facility] [address] [place] [address] Social History Tobacco Use Types [...] CSTFrom: Brendon Aldana Sent: 06/24/2018 9:14 AM PROFESSIONAL BENEFITS SALES CONSULTANT Subject: Medication Renewal Request Brendon Aldana would like a refill of the following medications: cetirizine-pseudoephedrine sr 12 hour (ZyrTEC-D) 5-120 mg tablet [Ciro Fernandez DO] Patient Comment: [facility] usually fill this has closed. Please send a new rx to [facility] at [address] [facility] in [place], [place]. [phone] Preferred pharmacy: [facility] [address] [place] [address] Delivery method: Pickup ESSIONAL BENEFITS SALES CONSULTANT documented in this encounter Plan of Treatment Not on file documented as of this encounter Visit Diagnoses Not on filedocumented in this encounter
--- OUTSIDE RECORDS SUMMARY | 2024-08-19 13:56 | XMS_ITS | Encounter Summary ---
Author Organization [facility] Address [address] [place] [address] Care Team Providers Care Wet Finisher Wool Name Role Phone Unavailable Primary Care Provider Unavailabl e Encounter Details Date Type Department Care Team (Late st Contact Info) Description 09/06/2018 Chart Note [facility] Orthopedic Surgery - [address] [place] [address] [place] [address] [facility] [address] [facility] [address] [place] [address] Social History Tobacco Use Types [...] pt to confirm surgery on 09/30/18 at [facility] and to arrive at 0800 am RETTE * Nilda Krishna RMA - 09/26/2018 3:02 PM CST Clearance from PCP scanned in to Media 09/26/18 RETTE * Susanna Harrison - 09/26/2018 8:14 AM CST Update on Pre-Op testing and Surgical Clearance LABS: N/A EKG: Completed 09/14/18 PCP Clearance: Received and Scanned in 09/07/18 Finance Specialist Clearance: Not requested PACE: N/A Comments: RETTE * Lady Kang - 09/22/2018 1:44 PM CST I left message on identified voicemail telling pt to finish all the Amox he was prescribed, push fluids, if has fever or persistent ear pain to contact PCP and let us know if he is not improving. Forwarding to Dr Castellano's nurse as MARIETTA. RETTE * Bailey Del Castillo - 09/22/2018 1:23 PM CST Patient states that he developed an ear infection on 09/20/18 went to his primary doctor Dr. Paige on 09/21 was put on Amoxicillin for [address] Landry Fernandez has cleared him forhis surgery scheduled on 09/30. Patient can be reached at [phone]. RETTE * Francisca Caraballo - 09/07/2018 11:04 AM CST Surgery Location & Date: [facility] 09/30/18 Medical Clearance Sent: Jonn weldon Cardiac Clearance Sent: n/a Patient aware of any pre op labs, EKG, xray: pt aware needs EKG PACE appt made: n/a CPT: 16811 [id number] Surgery Packet Given: handed Comments: RETTE * Jennifer Patel ANP - 09/06/2018 12:14 PM CST Pre-Op Scheduling Form- Shoulder Arthroscopy Brendon Aldana Admitting Physician: Nona DOS: Time: [x] Outpatient [] 23 Hour Obs LOCATION: [x] [place] [] [facility] [] [place] [] [facility] [] [facility] DIAGNOSIS: Right shoulder rotator cuff tear SURGICAL PROCEDURES: [] Shoulder scope, diagnostic, with or without synovial biopsy (CPT 98122) [] Shoulder scope w/ capsulorrhaphy, Bankart repair (CPT 89375) [] Shoulder scope w/ SLAP repair (CPT 84253) [] Shoulder scope w/ loose body removal (CPT 10816) [] Shoulder scope w/ limited debridement (CPT 77223) [x] Shoulder scope w/ extensive debridement (CPT 31248) [] Shoulder scope w/ distal clavicle excision (CPT 82810) [] Shoulder scope w/ lysis of adhesions, with or without FRANCISCO (CPT 54901) [x] Shoulder scope w/ subacromial decompression (CPT 65789) [x] Shoulder scope w/ rotator cuff repair (CPT 68846) [] Shoulder scope w/ biceps tenodesis (CPT 52214) [] Open distal clavicle resection (CPT 15795) [] Open rotator cuff repair, acute (CPT 51719) [] Open rotator cuff repair, chronic (CPT 65092) [] Open biceps tenodesis (CPT 43508) [] Open anterior capsulorrhaphy, Bankart repair (CPT 84078) [] Open latarjet, coracoid process transfer (CPT 75712) [] Open treatment of AC dislocation, acute or chronic (CPT 88135) [] Open treatment of AC dislocation, acute or chronic; w/ fascial graft (CPT 37844) ANESTHESIA REQUEST: General with interscalene POSITION: [x] Beach chair [] Lateral (gary bag) INTERNET MARKETING MANAGER NEEDED: Jorge VARGAS- IMPLANTS/EQUIPMENT (needs to be [...] [x] No ICD: [] Yes [x] No Electric Appliance Installer needed: [] Yes [x] No If so, what language: RETTE documented in this encounter Plan of Treatment Not on file documented as of this encounter Visit Diagnoses Not on filedocumented in this encounter
--- OUTSIDE RECORDS SUMMARY | 2024-08-19 13:56 | XMS_ITS | Encounter Summary ---
Author Organization [facility] Address [address] [place] [address] Care Team Providers Care Individual Pension Consultant Name Role Phone Unavailable Primary Care Provider Unavailabl e Reason for Referral * MRI (Routine) - Closed Specialty Diagnoses / Procedures Referred By Contac t Referred To Contact Diagnoses Chronic right shoulder pain Shoulder weakness Procedures MRI SHOULDER WO CONTRAST RIGHT Ciro Fernandez DO 107 [address] [place] [address] [facility] [employer] [facility] [address] [place] [address] Referral ID Status Reason Start Date Expiration Date V isits Requested Visits Authorized [id number] Closed [facility] CTS 08/15/2018 09/15/2018 1 1 INUOUS DRIER HELPER Reason for Visit * Reason Comments Shoulder Pain right shoulder Encounter Details Date Type Department Care Team (Late st Contact Info) Description 08/12/2018 2:45 PM CONTINUOUS DRIER HELPER Office Visit [facility] Medicine - [facility] Abundio Yuan 140 107 [address]ra [address] [place] [address] Ciro Fernandez DO [address] [facility] [address] Chronic right shoulder pain (Primary Dx); [...] Comments Blood Pressure 120/68 08/12/2018 2:23 PM CONTINUOUS DRIER HELPER Pulse 66 08/12/2018 2:23 PM CONTINUOUS DRIER HELPER Temperature 36.3 ??C (97.4 ??F) 08/12/2018 2:23 PM CS T Respiratory Rate - - Oxygen Saturation - - Inhaled Oxygen Concentration - - Weight 96 kg (211 lb 9.6 oz) 08/12/2018 2:23 PM CONTINUOUS DRIER HELPER Height 180.3 cm (5' 11 ) 08/12/2018 2:23 PM CONTINUOUS DRIER HELPER Body Mass Index 29.51 08/12/2018 2:23 PM CONTINUOUS DRIER HELPER documented in this encounter Progress Notes * [...] modifications including weight loss and daily exercise. INUOUS DRIER HELPER documented in this encounter Plan of [...]
--- OUTSIDE RECORDS SUMMARY | 2024-08-19 13:57 | XMS_ITS | Encounter Summary ---
Author Organization [facility] Address [address] [place] [address] Care Team Providers Care Chair Name Role Phone Unavailable Primary Care Provider Unavailabl e Reason for Visit * Reason Comments Sinus Pain congestion, sneezing x 6 days Encounter Details Date Type Department Care Team (Late st Contact Info) Description 09/07/2016 12:45 PM ALL PURPOSE CLERK Office Visit [facility] Family Medicine - [facility] Abundio Yuan 140 107 [facility] Abundio [address]UAN [address] [place] [address] Ciro Fernandez, DO [address] [facility] [address] [place] [address] Acute frontal sinusitis, recurrence not [...] Comments Blood Pressure 112/60 09/07/2016 12:38 PM ALL PURPOSE CLERK Pulse 64 09/07/2016 12:38 PM ALL PURPOSE CLERK Temperature 36.7 ??C (98 ??F) 09/07/2016 12:38 PM ALL PURPOSE CLERK Respiratory Rate - - Oxygen Saturation - - Inhaled Oxygen Concentration - - Weight 95.3 kg (210 lb) 09/07/2016 12:38 PM ALL PURPOSE CLERK Height 180.3 cm (5' 11 ) 09/07/2016 12:38 PM ALL PURPOSE CLERK Body Mass Index 29.29 09/07/2016 12:38 PM ALL PURPOSE CLERK documented in this encounter Progress Notes * [...] worsen or fail to improve as anticipated. PURPOSE CLERK documented in this encounter Plan of Treatment Not on file documented as of this encounter Visit Diagnoses Diagnosis Acute frontal sinusitis, recurrence not specified- Primary documented in this encounter
--- OUTSIDE RECORDS SUMMARY | 2024-08-19 13:57 | XMS_ITS | Encounter Summary ---
Author Organization [facility] Address [address] [place] [address] Care Team Providers Care Regional Marketing Manager Name Role Phone Unavailable Primary Care Provider Unavailabl e Reason for Visit * Reason Onset Date Comments Medication Refill 10/11/2016 Encounter Details Date Type Department Care Team (Late st Contact Info) Description 10/12/2016 Refill [facility] Family Medicine - [facility] 150 [address] [facility] [address] [place] [address] Ciro Fernandez DO [address] [facility] [address] [place] [address] Social History Tobacco Use Types [...] Ciro Fernandez DO Sent: 10/11/2016 5:19 PM ORAL SURGERY PHYSICIAN Subject: Medication Renewal Request Original authorizing provider: DO Brendon Tom would like a refill of the following medications: losartan (COZAAR) 50 mg tablet [Ciro Fernandez DO] Preferred pharmacy: [email or web address] - [address] Delivery method: Pickup Comment: This Rx must be written as a 90 day Rx and sent to [facility]? Thank you. SURGERY PHYSICIAN documented in this encounter Plan of Treatment Not on file documented as of this encounter Visit Diagnoses Not on filedocumented in this encounter
--- OUTSIDE RECORDS SUMMARY | 2024-08-19 13:57 | XMS_ITS | Encounter Summary ---
Author Organization [facility] Address [address] [place] [address] Care Team Providers Care Derrick Hand Name Role Phone Unavailable Primary Care Provider Unavailabl e Reason for Visit * Reason Comments Hypertension chol,follow up labs Encounter Details Date Type Department Care Team (Late st Contact Info) Description 10/14/2017 1:45 PM RADIOLOGIC ELECTRONIC SPECIALIST Office Visit [facility] Medicine - Bushra Yuan 140 107 [facility] Lilia YUAN [address] [place] [address] Ciro Fernandez, DO 107 [facility] LILIA Y[address]AN [address] [place] [address] Essential hypertension, benign (Primary Dx); [...] Comments Blood Pressure 122/68 10/14/2017 12:51 PM RADIOLOGIC ELECTRONIC SPECIALIST Pulse - - Temperature 36.7 ??C (98 ??F) 10/14/2017 12:51 PM RADIOLOGIC ELECTRONIC SPECIALIST Respiratory Rate - - Oxygen Saturation - - Inhaled Oxygen Concentration - - Weight 95.3 kg (210 lb) 10/14/2017 12:51 PM RADIOLOGIC ELECTRONIC SPECIALIST Height 180.3 cm (5' 11 ) 10/14/2017 12:51 PM RADIOLOGIC ELECTRONIC SPECIALIST Body Mass Index 29.29 10/14/2017 12:51 PM RADIOLOGIC ELECTRONIC SPECIALIST documented in this encounter Progress Notes [...] current treatment regimen. F/u in 6 months OLOGIC ELECTRONIC SPECIALIST documented in this encounter Plan of [...] PSA 0.3 < OR = 4.0 ng/mL [facility] Comment: The total PSA value from this assay system is standardized against the WHO standard. The test result will be approximately 20% lower when compared to the equimolar-standardized total PSA (Lulu [place]). Comparison of serial PSA results should be interpreted with this fact in mind. This test was performed using the Siemens chemiluminescent method. Values obtained from different assay methods cannot be used interchangeably. PSA levels, regardless of value, should not be interpreted as absolute evidence of the presence or absence of disease. FASTING:YES FASTING: YES Test Performed at: [facility] [address] [place], [place] ??[phone] Agus Valente D.O., MPH Blood 04/16/2018 2:25 AM CDT Ciro Fernandez DO CHEMISTRY ORDERABLES [facility] [address] [place] [address] * (ABNORMAL) COMPREHENSIVE METABOLIC PANEL (04/16/2018 2:25 AM CDT) GLUCOSE 104(H) 65 - 99 mg/dL [facility] Comment: ? Fasting reference interval For someone without known diabetes, a glucose value between 100 and 125 mg/dL is consistent with prediabetes and should be confirmed with a follow-up test. BUN 17 7 - 25 mg/dL [facility] CREATININE 0.86 0.70 - 1.25 mg/dL [facility] Comment: For patients >49 years of age, the reference limit for Creatinine is approximately 13% higher for people identified as -Paraguayan. GFR 90 > OR = 60 mL/min/1 .73m2 [facility] GFR, 105 > OR = 60 mL/min/1 .73m2 [facility] BUN/CREAT RATIO NOT APPLICABLE 6 - 22 (calc) [facility] SODIUM 142 135 - 146 mmol/L [facility] POTASSIUM 4.7 3.5 - 5.3 mmol/L [facility] . [place] CHLORIDE 108 98 - 110 mmol/L [facility] . [place] CO2 24 20 - 32 mmol/L [facility] . [place] CALCIUM 9.5 8.6 - 10.3 mg/dL [facility] . [place] TOTAL PROTEIN 6.9 6.1 - 8.1 g/dL [facility]. [place] ALBUMIN 4.1 3.6 - 5.1 g/dL [facility]. [place] GLOBULIN 2.8 1.9 - 3.7 g/dL (calc) [facility]. [facility] ALBUMIN/GLOBULIN RATIO 1.5 1.0 - 2.5 (calc) [facility] . [place] BILIRUBIN TOTAL 0.6 0.2 - 1.2 mg/dL [facility]. [place] ALKALINE PHOSPHATASE 63 40 - 115 U/L [facility]. [place] AST 24 10 - 35 U/L [facility]. [facility] ALT 34 9 - 46 U/L [facility] Comment: Test Performed at: [facility] [id number] [place] [address] ??[phone] Agus Valente D.O., MPH Blood 04/16/2018 2:25 AM CDT Ciro Fernandez DO CHEMISTRY ORDERABLES [facility] [address] [place] [address] * LIPID PANEL (04/16/2018 2:25 AM CDT) CHOLESTEROL 131 <200 mg/dL [facility]. [facility] HDL 44 >40 mg/dL [facility]. [facility] TRIGLYCERIDE 112 <150 mg/dL [facility]. [facility] LDL CALCULATED 67 mg/dL (calc) [facility] Comment: Reference range: <100 [...] LDL-C. Michele ELLIS et al. JACIEL. 2013;310(19): 6739-2527 (http://education.SalonBookr/faq/YBO754) CHOL/HDL RATIO 3.0 <5.0 (calc) [facility] TOTAL NON-HDL CHOL(LDL+VLDL) 87 <130 mg/dL (calc) [facility] Comment: For patients with diabetes plus 1 major ASCVD risk factor, treating to a non-HDL-C goal of <100 mg/dL (LDL-C of <70 mg/dL) is considered a therapeutic option. Test Performed at: [facility] [address] [place], [place] ??[phone] Agus Valente D.O., MPH Blood 04/16/2018 2:25 AM CDT Ciro Fernandez DO CHEMISTRY ORDERABLES [employer] [address] [place] [address] documented in this encounter Visit Diagnoses Diagnosis Essential hypertension, benign- Primary Pure hypercholesterolemia Gastroesophageal reflux disease without esophagitis Esophageal reflux Screening for prostate cancer Special screening for malignant neoplasm of prostate Need for pneumococcal vaccination Need for prophylactic vaccination against streptococcus pneumoniae (pneumococcus) documented in this encounter
--- OUTSIDE RECORDS SUMMARY | 2024-08-19 13:57 | XMS_ITS | Encounter Summary ---
Author Organization [facility] Address [address] [place] [address] Care Team Providers Care Switch Adjuster Name Role Phone Unavailable Primary Care Provider Unavailabl e Encounter Details Date Type Department Care Team (Latest Contact Info) Description 03/27/2016 4:28 PM CDT - 03/27/2016 11:59 PM CDT Hospital Encounter [facility] Laboratory Services S [facility] [address] [place] [address] Ciro Fernandez, DO 107 [facility] [address] [place] [address] Discharge Disposition: Home or Self [...] 1 10/07/2015 05/04/2016 fluticasone (FLONASE) 50 mcg/spray [place], Suspension Administer 2 Sprays in each nostril [...] CASE REPORT Surgical Pathology Report ? Case: [id number] ? Authorizing Provider: ??Ciro Fernandez, DO ?Collected: ? 03/27/2016 01:10 PM ? Ordering Location: ? [facility] ?? Received: ?03/28/2016 07:15 AM ? Services [place] ? Pathologist: ? Landry Klein MD ? Specimen: ?Skin, left side of the scalp ? 03/30/2016 3:04 PM [facility] FINAL DIAGNOSIS Skin, left side of scalp, punch biopsy: - Seborrheic keratosis, inflamed. 03/30/2016 3:04 PM [facility] IMEN DESCRIPTION Left side of the skull. 03/30/2016 3:04 PM [facility] OPERATIVE PROCEDURE Punch biopsy. 03/30/2016 3:04 PM [facility] CLINICAL DIAGNOSIS Neoplasm of uncertain behavior. 03/30/2016 3:04 PM [facility] GROSS DESCRIPTION The specimen is received labeled as Brendon Aldana, biopsy, left side of the scalp. It consists of one fragment of skin with papillary structures, measuring 0.3 x 0.2 x 0.2 cm. The specimen is inked blue on the deep margin. The specimen is bisected and submitted in toto in one cassette A1. X/stoney 03/30/2016 3:04 PM CDT [facility] MICROSCOPIC DESCRIPTION The slides are labeled [id number] and Brendon Aldana. The left side of scalp punch biopsy demonstrates an acanthotic lesion with papillomatosis and hyperkeratosis. There is a band-like lymphocytic infiltrate with associated basal vacuolar l alterations and dyskeratotic keratinocytes. 03/30/2016 3:04 PM CDT [facility] COMMENT Special stain and/or immunohistochemical results are interpreted with controls that demonstrate appropriate staining reactions. Note on use of immunocytochemistry reagents: This test was developed and its performance characteristic determined by [facility], Department of Laboratory Medicine. It [...] WF, WB and WH are performed by [address], [address]. All other case types are performed by [facility] [address] [facility], [address]. 03/30/2016 3:04 PM T [facility] Tissue TISSUE SPECIMEN FROM SKIN / Unknown 03/27/2016 1:10 PM CDT 03/28/2016 7:15 AM CDT Ciro Fernandez DO PATHOLOGY/CYTOLOGY O RDERABLES Performing Organization Address City/State/[facility] Co de Phone Number [facility] CLIA# [id number] [address] [place] [address] [place] [address] documented in this encounter Visit Diagnoses Diagnosis Neoplasm of uncertain behavior Neoplasm of uncertain behavior, site unspecified documented in this encounter
--- OUTSIDE RECORDS SUMMARY | 2024-08-19 13:57 | XMS_ITS | Encounter Summary ---
Author Organization [facility] Address [address] [place] [address] Care Team Providers Care Aerial Photographer Name Role Phone Unavailable Primary Care Provider Unavailabl e Reason for Visit * Reason Onset Date Comments Results 09/27/2017 Encounter Details Date Type Department Care Team (Late st Contact Info) Description 09/27/2017 Telephone [facility] Family Medicine - [facility] Kw[address]ena [address] [facility] [address] [place] [address] Ciro Fernandez, DO [address] [facility] [address] [place] [address] Results Social History Tobacco Use [...] - 09/27/2017 3:09 PM CST Pt informed/sb TIME REPORTER * Telephone Encounter - Cristela Herman - 09/27/2017 2:52 PM CST Please notify pt and schedule CPE. TIME REPORTER * Telephone Encounter - Cristela Herman - 09/27/2017 2:52 PM CST ----- Message from Ciro Fernandez DO sent at 09/27/2017 1:56 PM REALTIME REPORTER ----- Labs look great. All normal. Great job. You are just due for a basic physical exam. We can discuss more at that time. TIME REPORTER * Telephone Encounter - Jennifer Long - 09/27/2017 1:44 PM CST Did we get his lab results yet? He did them Wednesday TIME REPORTER documented in this encounter Plan of Treatment Not on file documented as of this encounter Visit Diagnoses Not on filedocumented in this encounter
--- OUTSIDE RECORDS SUMMARY | 2024-08-19 13:57 | XMS_ITS | Encounter Summary ---
Author Organization [facility] Address [address] [place] [address] Care Team Providers Care Waste Machine Offbearer Name Role Phone Unavailable Primary Care Provider Unavailabl e Reason for Visit * Reason Onset Date Comments Medication Refill 04/15/2017 Encounter Details Date Type Department Care Team (Late st Contact Info) Description 04/15/2017 Refill [facility] Family Medicine - Bushra Yuan [address] [place] [address] Ciro Fernandez, DO 107 [facility] LILIA [address] [place] [address] Social History Tobacco Use [...]
--- OUTSIDE RECORDS SUMMARY | 2024-08-19 13:57 | XMS_ITS | Encounter Summary ---
Author Organization [facility] Address [address] [place] [address] Care Team Providers Care Pea Viner Mechanic Name Role Phone Unavailable Primary Care Provider Unavailabl e Reason for Visit * Reason Onset Date Comments Medication Problem 06/22/2017 Encounter Details Date Type Department Care Team (Late st Contact Info) Description 06/22/2017 Telephone [facility] Family Medicine - [facility] [address] [facility] [address] [place] [address] Ciro Fernandez, DO [address] [facility] [address] [place] [address] Medication Problem Social History Tobacco [...] 4:04 PM CST Pt and pharmacy notified. ESS PUMPER * Telephone Encounter - Edna Jackson RMA - 06/22/2017 3:56 PM CST Courtney approved. ESS PUMPER * Telephone Encounter - Cristela Herman - 06/22/2017 3:54 PM CST Pt called the office - he is leaving to go out of town on 06/26/17 and will not be back until 07/04/17 - he will run out of med while out of town. Pt does take Zyrtec D BID. Okay for early refill? Let pt and pharmacy know. ESS PUMPER * Telephone Encounter - Cristela Herman - [...] results: no answer - voicemailnot set up. ESS PUMPER documented in this encounter Plan of Treatment Not on file documented as of this encounter Visit Diagnoses Not on filedocumented in this encounter
--- OUTSIDE RECORDS SUMMARY | 2024-08-19 13:57 | XMS_ITS | Encounter Summary ---
Author Organization [facility] Address [address] [place] [address] Care Team Providers Care Post Office Manager Name Role Phone Unavailable Primary Care Provider Unavailabl e Reason for Visit * Reason Onset Date Comments Medication Refill 12/04/2017 Encounter Details Date Type Department Care Team (Late st Contact Info) Description 12/06/2017 Refill [facility] Family Medicine - [facility] Abundio Yuan [address] [facility] [address] [place] [address] Ciro Fernandez DO 107 [facility] [address] [place] [address] Pure hypercholesterolemia Social History Tobacco [...] a 90 day rx and sent to [facility] Preferred pharmacy: [facility] - [address] method: Pickup documented in this encounter Plan of Treatment Not on file documented as of this encounter Visit Diagnoses Diagnosis Pure hypercholesterolemia documented in this encounter
--- OUTSIDE RECORDS SUMMARY | 2024-08-19 13:57 | XMS_ITS | Encounter Summary ---
Author Organization [facility] Address [address] [place] [address] Care Team Providers Care Wire Twisting Machine Operator Name Role Phone Unavailable Primary Care Provider Unavailabl e Reason for Visit * Reason Onset Date Comments Medication Refill 11/09/2017 Encounter Details Date Type Department Care Team (Late st Contact Info) Description 11/09/2017 Refill [facility] Medicine - Bushra Yuan 140 107 [facility] Abundio YUAN [address] [place] [address] Ciro Fernandez, DO [address] [facility] [address] [place] [address] Acute bronchitis, unspecified organism; Acute [...]
--- OUTSIDE RECORDS SUMMARY | 2024-08-19 13:57 | XMS_ITS | Encounter Summary ---
Author Organization [facility] Address [address] [place] [address] Care Team Providers Care Director Service Name Role Phone Unavailable Primary Care Provider Unavailabl e Reason for Visit * Reason Comments Cough Congestion, BA, chil ls, SP x 1 week. Encounter Details Date Type Department Care Team (Late st Contact Info) Description 08/11/2017 3:30 PM EMPLOYEE DEVELOPMENT SPECIALIST Office Visit [facility] Medicine - [facility] Abundio Yuan [address] 107 [facility] Abundio [address]AN [address] [place] [address] Ciro Fernandez, DO 107 [facility] [address] [place] [address] Cough (Primary Dx); Influenza A [...] Comments Blood Pressure 122/60 08/11/2017 3:03 PM EMPLOYEE DEVELOPMENT SPECIALIST Pulse 68 08/11/2017 3:03 PM EMPLOYEE DEVELOPMENT SPECIALIST Temperature 36.6 ??C (97.8 ??F) 08/11/2017 3:03 PM CS T Respiratory Rate - - Oxygen Saturation - - Inhaled Oxygen Concentration - - Weight 97.5 kg (215 lb) 08/11/2017 3:03 PM EMPLOYEE DEVELOPMENT SPECIALIST Height 180.3 cm (5' 11 ) 08/11/2017 3:03 PM EMPLOYEE DEVELOPMENT SPECIALIST Body Mass Index 29.99 08/11/2017 3:03 PM EMPLOYEE DEVELOPMENT SPECIALIST documented in this encounter Progress Notes [...] and Alternatives of the current treatment regimen. OYEE DEVELOPMENT SPECIALIST documented in this encounter Plan of Treatment Not on file documented as of this encounter Procedures Procedure Name Priority Date/Time Associated Diagnosis Comments POC INFLUENZA A AND B ANTIGEN Routine 08/11/2017 3:24 PM EMPLOYEE DEVELOPMENT SPECIALIST Cough documented in this encounter Results * (ABNORMAL) POC INFLUENZA A AND B (08/11/2017 3:24 PM EMPLOYEE DEVELOPMENT SPECIALIST) INFLUENZA A AG POC Positive/Det ected(A) Negative/Not Detected [facility] INFLUENZA B AG POC Negative/Not Detected Negative/Not Detected [facility] INTERNAL KIT QC Pass Pass [facility] KIT LOT NUMBER POC [id number] [facility] KIT EXPIRATION DATE POC 02/24 [facility] Upper respiratory specimen (specimen) ENTIRE NASOPHARYNX / Unknown 08/11/2017 3:24 PM EMPLOYEE DEVELOPMENT SPECIALIST Ciro Fernandez DO POINT OF CARE TESTIN G [facility] CLIA# [id number] [address] [address] documented in this encounter Visit Diagnoses Diagnosis Cough- Primary Influenza A Influenza with other respiratory manifestations documented in this encounter
--- OUTSIDE RECORDS SUMMARY | 2024-08-19 13:57 | XMS_ITS | Encounter Summary ---
Author Organization [facility] Address [address] [place] [address] Care Team Providers Care Director Of Early Childhood Name Role Phone Unavailable Primary Care Provider Unavailabl e Reason for Visit * Reason Onset Date Comments Medication Refill 07/05/2017 Encounter Details Date Type Department Care Team (Late st Contact Info) Description 07/06/2017 Refill [facility] Family Medicine - [facility] Abundio Yuan [address] [facility] [address] [place] [address] Ciro Fernandez DO [address] [facility] [facility] [address] [place] [address] Pure hypercholesterolemia Social History Tobacco [...] CSTFrom: Brendon Aldana Sent: 07/05/2017 4:58 PM METROPOLITAN EDITOR Subject: Medication Renewal Request Brendon Aldana would like a refill of the following medications: simvastatin (ZOCOR) 40 mg tablet [Ciro Fernandez DO] Patient Comment: Rx must be written as 90 day and sent to [facility] Preferred pharmacy: [facility] - [address] Delivery method: Pickup OPOLITAN EDITOR documented in this encounter Plan of Treatment Not on file documented as of this encounter Visit Diagnoses Diagnosis Pure hypercholesterolemia documented in this encounter
--- OUTSIDE RECORDS SUMMARY | 2024-08-19 13:57 | XMS_ITS | Encounter Summary ---
Author Organization [facility] Address [address] [place] [address] Care Team Providers Care Kiln Tender Name Role Phone Unavailable Primary Care Provider Unavailabl e Reason for Visit * Reason Comments Medication Refill Encounter Details Date Type Department Care Team (Late st Contact Info) Description 04/16/2016 Refill [facility] Family Medicine - [facility] [address] 107 [facility] [address] [place] [address] Ciro Fernandez, DO 107 [facility] [address] [place] [address] Social History Tobacco Use Types [...]
--- OUTSIDE RECORDS SUMMARY | 2024-08-19 13:57 | XMS_ITS | Encounter Summary ---
Author Organization [facility] Address [address] [place] [address] Care Team Providers Care Talent Consultant Name Role Phone Unavailable Primary Care Provider Unavailabl e Reason for Visit * Reason Onset Date Comments Medication Refill 06/29/2016 Encounter Details Date Type Department Care Team (Late st Contact Info) Description 06/29/2016 Refill [facility] Family Medicine - [facility] Abundio Kwabena [address] 107 [facility] [address] [place] [address] Ciro Fernandez, DO [address] [facility] [address] [place] [address] Social History Tobacco Use Types [...] Kay Jesus CMA - 06/29/2016 8:17 AM REAL ESTATE INSTRUCTOR Script faxed to pharmacy. ESTATE INSTRUCTOR documented in this encounter Plan of Treatment Not on file documented as of this encounter Visit Diagnoses Not on filedocumented in this encounter
--- OUTSIDE RECORDS SUMMARY | 2024-08-19 13:57 | XMS_ITS | Encounter Summary ---
Author Organization [facility] Address [address] [place] [address] Care Team Providers Care Fish Salter Name Role Phone Unavailable Primary Care Provider Unavailabl e Reason for Visit * Reason Onset Date Comments Medication Refill 05/26/2016 Encounter Details Date Type Department Care Team (Late st Contact Info) Description 05/27/2016 Refill [facility] Family Medicine - [facility] Abundio Yuan [address] [facility] [address] [place] [address] Ciro Fernandez DO 107 [facility] [address] [place] [address] Social History Tobacco Use Types [...] Notes * Telephone Encounter - Kay Jesus [facility] - 05/27/2016 8:04 AM CDTFrom: Brendon Aldana To: Ciro Fernandez DO Sent: 05/26/2016 6:15 PM CDT Subject: Medication Renewal Request Original authorizing provider: DO Brendon Tom would like a refill of the following medications: omeprazole (PRILOSEC) 20 mg Capsule, Delayed Release(E.C.) [Ciro Fernandez DO] Preferred pharmacy: [facility] - [address] Comment: Rx must be written as a 90 day Rx and sent o [facility] documented in this encounter Plan of Treatment Not on file documented as of this encounter Visit Diagnoses Not on filedocumented in this encounter
--- OUTSIDE RECORDS SUMMARY | 2024-08-19 13:57 | XMS_ITS | Encounter Summary ---
Author Organization [facility] Address [address] [place] [address] Care Team Providers Care Radioactive Waste Disposal Dispatcher Name Role Phone Unavailable Primary Care Provider Unavailabl e Reason for Visit * Reason Onset Date Comments Medication Refill 05/03/2016 Encounter Details Date Type Department Care Team (Late st Contact Info) Description 05/04/2016 Refill [facility] Family Medicine - [facility] Abundio Yuan [address] [facility] [address] [place] [address] Ciro Fernandez DO 107 [facility] [address] [place] [address] Social History Tobacco Use Types [...] Notes * Telephone Encounter - Kay Jesus [facility] - 05/04/2016 8:06 AM CDTFrom: Brendon Aldana To: Ciro Fernandez DO Sent: 05/03/2016 5:18 AM CDT Subject: Medication Renewal Request Original authorizing provider: DO Brendon Tom would like a refill of the following medications: losartan (COZAAR) 50 mg tablet [Ciro Fernandez DO] Preferred pharmacy: [facility] - [address] Comment: Rx must be written as a 90 day Rx and sent to [facility]. Thank you. documented in this encounter Plan of Treatment Not on file documented as of this encounter Visit Diagnoses Not on filedocumented in this encounter
--- OUTSIDE RECORDS SUMMARY | 2024-08-19 13:57 | XMS_ITS | Encounter Summary ---
Author Organization [facility] Address [address] [place] [address] Care Team Providers Care Internal Combustion Engine Assembler Name Role Phone Unavailable Primary Care Provider Unavailabl e Reason for Visit * Reason Comments Cough Encounter Details Date Type Department Care Team (Late st Contact Info) Description 05/21/2017 3:15 PM CDT Office Visit [facility] Medicine - [facility] Abundio Yuan 140 107 [facility] [address] [place] [address] Ciro Fernandez, DO 107 [facility] [address] [place] [address] Acute bronchitis, unspecified organism (Primary [...] States also with Rhinorrhea and went to [facility] [place] diagnosed with sinus infection. Given Omnicef [...]
--- OUTSIDE RECORDS SUMMARY | 2024-08-19 13:57 | XMS_ITS | Encounter Summary ---
Author Organization [facility] Address [address] [place] [address] Care Team Providers Care Engrosser Name Role Phone Unavailable Primary Care Provider Unavailabl e Reason for Visit * Reason Onset Date Comments Medication Refill 08/09/2017 Encounter Details Date Type Department Care Team (Late st Contact Info) Description 08/10/2017 Refill [facility] Family Medicine - [facility] Abundio Yuan [address] [facility] [address] [place] [address] Ciro Fernandez DO 107 [facility] [address] [place] [address] Acute bronchitis, unspecified organism; Acute [...] CSTFrom: Brendon Aldana Sent: 08/09/2017 8:01 AM HOT BRAIDER Subject: Medication Renewal Request Brendon Aldana would like a refill of the following medications: montelukast (SINGULAIR) 10 mg tablet [Ciro Fernandez DO] Patient Comment: Can this rx be written as a 90 day rx and sent to [facility]? Preferred pharmacy: [facility] - [address] method: Pickup BRAIDER documented in this encounter Plan of Treatment Not on file documented as of this encounter Visit Diagnoses Diagnosis Acute bronchitis, unspecified organism Acute frontal sinusitis, recurrence not specified documented in this encounter
--- OUTSIDE RECORDS SUMMARY | 2024-08-19 13:57 | XMS_ITS | Encounter Summary ---
Author Organization [facility] Address [address] [place] [address] Care Team Providers Care Health Services Director Name Role Phone Unavailable Primary Care Provider Unavailabl e Reason for Visit * Reason Onset Date Comments Medication Refill 04/30/2016 Encounter Details Date Type Department Care Team (Late st Contact Info) Description 05/01/2016 Refill [facility] Family Medicine - [facility] Abundio Yuan [address] [facility] [address] [place] [address] Ciro Fernandez DO [address] [facility] [address] [place] [address] Pure hypercholesterolemia Social History Tobacco [...] Notes * Telephone Encounter - Kay Jesus [facility] - 05/01/2016 7:45 AM CDTFrom: Brendon Aldana To: Ciro Fernandez DO Sent: 04/30/2016 6:05 PM CDT Subject: Medication Renewal Request Original authorizing provider: DO Brendon Tom would like a refill of the following medications: simvastatin (ZOCOR) 40 mg tablet [Ciro Fernandez DO] Preferred pharmacy: [facility] - [address] Comment: Rx must be written as a 90 day Rx and [facility]. Thank you documented in this encounter Plan of Treatment Not on file documented as of this encounter Visit Diagnoses Diagnosis Pure hypercholesterolemia documented in this encounter
--- OUTSIDE RECORDS SUMMARY | 2024-08-19 13:57 | XMS_ITS | Encounter Summary ---
Author Organization [facility] Address [address] [place] [address] Care Team Providers Care Corporate Intern Name Role Phone Unavailable Primary Care Provider Unavailabl e Reason for Visit * Reason Onset Date Comments Medication Refill 08/21/2016 Encounter Details Date Type Department Care Team (Late st Contact Info) Description 08/24/2016 Refill [facility] - [facility] Abundio Yuan 140 107 [facility] [address] [place] [address] Ciro Fernandez DO [address] [facility] [address] [place] [address] Social History Tobacco Use Types [...] Patient needs an appointment before next refill. TECHNOLOGIST/HISTOTECHNOLOGIST * Telephone Encounter - Edna Jackson RMA - 08/24/2016 7:58 AM CSTFrom: Brendon Aldana To: Ciro Fernandez DO Sent: 08/21/2016 8:32 AM CYTOTECHNOLOGIST/HISTOTECHNOLOGIST Subject: Medication Renewal Request Original authorizing provider: DO Brendon Tom would like a refill of the following medications: tadalafil (CIALIS) 20 mg tablet [Ciro Fernandez DO] Preferred pharmacy: [facility] [address] [place] [address] [facility] Delivery method: Pickup Comment: This Rx [facility] go to [facility]. Thank you. TECHNOLOGIST/HISTOTECHNOLOGIST documented in this encounter Plan of Treatment Not on file documented as of this encounter Visit Diagnoses Not on filedocumented in this encounter
--- OUTSIDE RECORDS SUMMARY | 2024-08-19 13:57 | XMS_ITS | Encounter Summary ---
Author Organization [facility] Address [address] [place] [address] Care Team Providers Care Spanish Interpreter/Translator Name Role Phone Unavailable Primary Care Provider Unavailabl e Reason for Visit * Reason Comments Hypertension Chol; Follow up on l abs and meds. Encounter Details Date Type Department Care Team (Late st Contact Info) Description 11/10/2016 2:30 PM CDT Office Visit [facility] Medicine - [facility] Lilia Yuan [address] [place] [address] Ciro Fernandez, DO 107 [facility] [address] [place] [address] Essential hypertension, benign (Primary Dx); [...] on: 09/14/2017 10:31 AM Modules accepted: Orders R TEAM LEADER documented in this encounter Plan of Treatment Not on file documented as of this encounter Procedures Procedure Name Priority Date/Time Associated Diagnosis Comments MICROALBUMIN/CREATININ E RATIO, RANDOM UR Routine 09/25/2017 2:03 AM WATER TEAM LEADER VITAMIN D 25 HYDROXY Routine 09/25/2017 2:03 AM WATER TEAM LEADER LIPID PANEL Routine 09/25/2017 2:03 AM WATER TEAM LEADER COMPREHENSIVE METABOLIC PANEL Routine 09/25/2017 2:03 AM WATER TEAM LEADER documented in this encounter Results * VITAMIN D 25 HYDROXY (09/25/2017 2:03 AM WATER TEAM LEADER) VITAMIN D, 25 OH, TOTAL 37 30 - 100 ng/mL [employer] [facility] Comment: Vitamin D Status ? 25-OH Vitamin D: Deficiency: ?<20 ng/mL Insufficiency: ? 20 - 29 ng/mL Optimal: ? > or = 30 ng/mL For 25-OH Vitamin D testing on patients on D2-supplementation and patients for whom quantitation of D2 and D3 fractions is required, the QuestAssureD() 25-OH VIT D, (D2,D3), LC/MS/MS is recommended: order code 96804 (patients >2yrs). For more information on this test, go to: http://education.SportsPursuit/faq/QIP530 (This link is being provided for informational/educational purposes only.) FASTING:YES FASTING: YES Test Performed at: [facility] [address] [place], [place] ??[phone] Agus Valente D.O., MPH 09/25/2017 2:03 AM WATER TEAM LEADER Ciro Fernandez DO CHEMISTRY ORDERABLES Performing Organization Address City/State/RUST Co de Phone Number [facility] [address] [place] [address] * COMPREHENSIVE METABOLIC PANEL (09/25/2017 2:03 AM WATER TEAM LEADER) GLUCOSE 99 65 - 99 mg/dL [facility] Comment:Fasting reference in terval BUN 16 7 - 25 mg/dL [facility] CREATININE 0.76 0.70 - 1.25 mg/dL [facility] Comment: For patients >49 years of age, the reference limit for Creatinine is approximately 13% higher for people identified as -Central African. GFR 96 > OR = 60 mL/min/1 .73m2 [facility] GFR, 111 > OR = 60 mL/min/1 .73m2 [facility] BUN/CREAT RATIO NOT APPLICABLE 6 - 22 (calc) [facility] SODIUM 141 135 - 146 mmol/L [facility] POTASSIUM 4.3 3.5 - 5.3 mmol/L [facility] [employer] . [facility] CHLORIDE 106 98 - 110 mmol/L [facility] [employer] . [facility] CO2 27 20 - 31 mmol/L [facility] CALCIUM 9.2 8.6 - 10.3 mg/dL [facility] TOTAL PROTEIN 6.8 6.1 - 8.1 g/dL [facility] ALBUMIN 4.0 3.6 - 5.1 g/dL [facility]. [facility] GLOBULIN 2.8 1.9 - 3.7 g/dL (calc) [facility] ALBUMIN/GLOBULIN RATIO 1.4 1.0 - 2.5 (calc) [facility] BILIRUBIN TOTAL 1.0 0.2 - 1.2 mg/dL [facility] ALKALINE PHOSPHATASE 64 40 - 115 U/L [facility] AST 23 10 - 35 U/L [facility] [employer] [facility] ALT 34 9 - 46 U/L [facility] [employer] [facility] Comment: Test Performed at: [facility] [address] [place] ??[phone] Agus Valente D.O., MPH 09/25/2017 2:03 AM WATER TEAM LEADER Ciro Fernandez DO CHEMISTRY ORDERABLES Performing Organization Address City/[facility]/ZIP Co de Phone Number [employer] [facility] [address] [place] [address] * LIPID PANEL (09/25/2017 2:03 AM WATER TEAM LEADER) Pathologist [facility] CHOLESTEROL 125 <200 mg/dL [facility] HDL 41 >40 mg/dL [employer] [facility] TRIGLYCERIDE 90 <150 mg/dL [employer] [facility] LDL CALCULATED 67 mg/dL (calc) [facility] [employer] [facility] Comment: Reference range: <100 Desirable range <100 mg/dL for patients with CHD or diabetes and <70 mg/dL for diabetic patients with known heart disease. LDL-C is now calculated using the Steve calculation, which is a validated novel method providing better accuracy than the Friedewald equation in the estimation of LDL-C. Michele SS et al. JACIEL. 2013;310(19): 6685-0700 (http://education.Siasto/faq/YLR168) CHOL/HDL RATIO 3.0 <5.0 (calc) [facility] TOTAL NON-HDL CHOL(LDL+VLDL) 84 <130 mg/dL (calc) [facility] Comment: For patients with diabetes plus 1 major ASCVD risk factor, treating to a non-HDL-C goal of <100 mg/dL (LDL-C of <70 mg/dL) is considered a therapeutic option. Test Performed at: [facility] ??[address] Agus Valente D.O., MPH 09/25/2017 2:03 AM WATER TEAM LEADER Ciro Fernandez DO CHEMISTRY ORDERABLES Performing Organization Address [facility]/RUST Co de Phone Number [employer] [facility] [address] [place] [address] * MICROALBUMIN/CREATININE RATIO, RANDOM UR (09/25/2017 2:03 AM WATER TEAM LEADER) Pathologist [facility] Creatinine, Urine 95 20 - 370 mg/dL [employer] [facility] MICROALBUMIN, URINE 0.4 See Note: mg/dL [facility] Comment: Reference Range: Reference Range Not established MICROALBUMIN/CREAT RATIO, UR 4 <30 mcg/mg creat [employer] [facility] Comment: The ADA defines abnormalities in albumin excretion as follows: Category ? Result (mcg/mg creatinine) Normal ?<30 Microalbuminuria ? 30-299 Clinical albuminuria ?? > OR = 300 The ADA recommends that at least two of three specimens collected within a 3-6 month period be abnormal before considering a patient to be within a diagnostic category. Test Performed at: [facility] [address] [place], [place] ??[address] Agus Valente D.O., MPH 09/25/2017 2:03 AM WATER TEAM LEADER Ciro Fernandez DO URINE ORDERABLES Performing Organization Address City/State/RUST Co de Phone Number [employer] [facility] [address] [place] [address] documented in this encounter Visit Diagnoses Diagnosis Essential hypertension, benign- Primary Pure hypercholesterolemia Pre-diabetes Other abnormal glucose Vitamin D deficiency Unspecified vitamin D deficiency documented in this encounter
--- OUTSIDE RECORDS SUMMARY | 2024-08-19 13:57 | XMS_ITS | Encounter Summary ---
Author Organization [facility] Address [address] [place] [address] Care Team Providers Care Plant Utility Person Name Role Phone Unavailable Primary Care Provider Unavailabl e Reason for Visit * Reason Onset Date Comments Results 04/06/2016 Encounter Details Date Type Department Care Team (Late st Contact Info) Description 04/06/2016 Telephone [facility] Family Medicine - [facility] Kw[address] [facility] [address] [place] [address] Ciro Fernandez, DO [address] [facility] [address] [place] [address] Results Social History Tobacco Use [...]
--- OUTSIDE RECORDS SUMMARY | 2024-08-19 13:57 | XMS_ITS | Encounter Summary ---
Author Organization [facility] Address [address] [place] [address] Care Team Providers Care Machine Greaser Name Role Phone Unavailable Primary Care Provider Unavailabl e Reason for Visit * Reason Comments Cough Encounter Details Date Type Department Care Team (Late st Contact Info) Description 06/08/2017 12:30 PM CDT Office Visit [facility] Medicine - [facility] Abundio Yuan [address] [facility] [address] [place] [address] Ciro Fernandez, DO [address] [facility] [address] [place] [address] Cough (Primary Dx); Post-infection bronchospasm; [...] States also with Rhinorrhea and went to [facility] and diagnosed with sinus infection. Given Omnicef [...]
--- OUTSIDE RECORDS SUMMARY | 2024-08-19 13:57 | XMS_ITS | Encounter Summary ---
Author Organization [facility] Address [address] [place] [address] Care Team Providers Care Derivatives Trader Name Role Phone Unavailable Primary Care Provider Unavailabl e Reason for Visit * Reason Onset Date Comments Medication Refill 08/31/2017 Encounter Details Date Type Department Care Team (Late st Contact Info) Description 09/01/2017 Refill [facility] Family Medicine - [facility] Abundio Yuan [address] [facility] [address] [place] [address] Ciro Fernandez DO 107 [facility] [address] [place] [address] Social History Tobacco Use Types [...] CSTFrom: Brendon Aldana Sent: 08/31/2017 4:51 PM LEAD DATABASE ADMINISTRATOR Subject: Medication Renewal Request Brendon Aldana would like a refill of the following medications: omeprazole (PriLOSEC) 20 mg Capsule, Delayed Release(E.C.) [Ciro Fernandez DO] Patient Comment: Rx must be written as a 90 day rx and sent to [facility] Preferred [facility]: [facility] [place], [place] - [address] [place] [address] Delivery method: Pickup DATABASE ADMINISTRATOR documented in this encounter Plan of Treatment Not on file documented as of this encounter Visit Diagnoses Not on filedocumented in this encounter
--- OUTSIDE RECORDS SUMMARY | 2024-08-19 13:57 | XMS_ITS | Encounter Summary ---
Author Organization [facility] Address [address] [place] [address] Care Team Providers Care Brass Cleaner Name Role Phone Unavailable Primary Care Provider Unavailabl e Reason for Visit * Reason Onset Date Comments Medication Refill 10/31/2017 Encounter Details Date Type Department Care Team (Late st Contact Info) Description 11/01/2017 Refill [facility] Family Medicine - [facility] Abundio Yuan [address] [facility] [address] [place] [address] Ciro Fernandez DO [address] [facility] [address] [place] [address] Social History Tobacco Use [...] a 90 day rx and sent to [facility] Preferred pharmacy: [facility] - [address] method: Pickup documented in this encounter Plan of Treatment Not on file documented as of this encounter Visit Diagnoses Not on filedocumented in this encounter
--- OUTSIDE RECORDS SUMMARY | 2024-08-19 13:57 | XMS_ITS | Encounter Summary ---
Author Organization [facility] Address [address] [place] [address] Care Team Providers Care Environmental Health Inspector Name Role Phone Unavailable Primary Care Provider Unavailabl e Reason for Visit * Reason Onset Date Comments Medication Refill 02/01/2018 Encounter Details Date Type Department Care Team (Late st Contact Info) Description 02/01/2018 Refill [facility] Medicine - [facility] Yuan [address] [place] [address] Ciro Fernandez, DO 107 [facility] [address] [address] [place] [address] Social History Tobacco Use Types [...]
--- OUTSIDE RECORDS SUMMARY | 2024-08-19 13:57 | XMS_ITS | Encounter Summary ---
Author Organization [facility] Address [address] [place] [address] Care Team Providers Care Gun Stock Maker Name Role Phone Unavailable Primary Care Provider Unavailabl e Reason for Visit * Reason Onset Date Comments Medication Refill 10/16/2016 Encounter Details Date Type Department Care Team (Late st Contact Info) Description 10/19/2016 Refill [facility] Family Medicine - [facility] Abundio Yuan [address] 107 [facility] [address] [place] [address] Ciro Fernandez DO [address] [facility] [address] [place] [address] Social History Tobacco Use Types [...] Notes * Telephone Encounter - Kay Jesus [facility] - 10/19/2016 8:02 AM CDTFrom: Brendon Aldana To: Ciro Fernandez DO Sent: 10/16/2016 8:51 PM APPLIANCE SERVICER Subject: Medication Renewal Request Original authorizing provider: DO Brendon Tom would like a refill of the following medications: fluticasone (FLONASE) 50 mcg/spray [place], Suspension [Ciro Fernandez DO] Preferred pharmacy: [facility] - [place], [place] - [address] [place] [address] Delivery method: Pickup Comment: This Rx must be written as a 90 day Rx and sent to [facility]. Thank you. documented in this encounter Plan of Treatment Not on file documented as of this encounter Visit Diagnoses Not on filedocumented in this encounter
--- OUTSIDE RECORDS SUMMARY | 2024-08-19 13:57 | XMS_ITS | Encounter Summary ---
Author Organization [facility] Address [address] [place] [address] Care Team Providers Care Nurse Prn Name Role Phone Unavailable Primary Care Provider Unavailabl e Encounter Details Date Type Department Care Team (Late st Contact Info) Description 08/12/2017 Abstract [facility] Medicine - Bushra Yuan 140 107 [facility] Abundio [address] [place] [address] Ciro Fernandez, DO [address] [facility] [address] [place] [address] Social History Tobacco Use [...]
--- OUTSIDE RECORDS SUMMARY | 2024-08-19 13:57 | XMS_ITS | Encounter Summary ---
Author Organization [facility] Address [address] [place] [address] Care Team Providers Care Roller Billet Mill Name Role Phone Unavailable Primary Care Provider Unavailabl e Reason for Visit * Reason Onset Date Comments Medication Refill 12/31/2016 Encounter Details Date Type Department Care Team (Late st Contact Info) Description 01/01/2017 [facility]ill [facility] - [facility] Abundio Yuan [address] [facility] [address] [place] [address] Ciro Fernandez DO [address] [facility] [address] [place] [address] Pure hypercholesterolemia Social History Tobacco [...] mg tablet [Ciro Fernandez DO] Preferred pharmacy: [facility] - [address] Delivery method: Pickup Comment: Rx must be written as a 90 day rx and sent to [facility]. Thank you. documented in this encounter Plan of Treatment Not on file documented as of this encounter Visit Diagnoses Diagnosis Pure hypercholesterolemia documented in this encounter
--- OUTSIDE RECORDS SUMMARY | 2024-08-19 13:57 | XMS_ITS | Encounter Summary ---
Author Organization [facility] Address [address] [place] [address] Care Team Providers Care Product Design Engineer Name Role Phone Unavailable Primary Care Provider Unavailabl e Reason for Visit * Reason Comments Hypertension ifg; Follow up on la bs. Encounter Details Date Type Department Care Team (Late st Contact Info) Description 04/24/2016 1:30 PM CDT Office Visit [facility] Medicine - [facility] [address] [facility] [address] [place] [address] Ciro Fernandez, DO [address] [facility] [address] [place] [address] Essential hypertension, benign (Primary Dx); [...]
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
--- OUTSIDE RECORDS SUMMARY | 2024-08-19 13:57 | XMS_ITS | Encounter Summary ---
Author Organization [facility] Address [address] [place] [address] Care Team Providers Care Neon Sign Worker Name Role Phone Unavailable Primary Care Provider Unavailabl e Reason for Visit * Reason Onset Date Comments Results 03/31/2016 Pathology Encounter Details Date Type Department Care Team (Late st Contact Info) Description 03/31/2016 Telephone [facility] Medicine - [facility] Abundio Yuan [address] [facility] [address] [place] [address] Ciro Fernandez DO [address] [facility] [address] [place] [address] Results (Pathology) Social History Tobacco [...] Creatinine, Urine 91 20 - 370 mg/dL [employer] [facility] . [facility] MICROALBUMIN, URINE 0.2 mg/dL [facility] Comment: Reference Range Not established MICROALBUMIN/CREAT RATIO, UR 2 <30 mcg/mg creat [facility] Comment: The ADA defines abnormalities in albumin excretion as follows: Category ? Result (mcg/mg creatinine) Normal ?<30 Microalbuminuria ? 30-299 Clinical albuminuria ?? > OR = 300 The ADA recommends that at least two of three specimens collected within a 3-6 month period be abnormal before considering a patient to be within a diagnostic category. REPORT COMMENT: FASTING:YES Test Performed at: [facility] [address] [address] [place], [place] ??[phone] MINO ZAMAN DO,MPH 04/04/2016 7:33 AM CDT Ciro Fernandez DO URINE ORDERABLES [employer] [facility] [address] [place] [address] * (ABNORMAL) COMPREHENSIVE METABOLIC PANEL (04/04/2016 7:33 AM CDT) GLUCOSE 101(H) 65 - 99 mg/dL [facility] Comment:Fasting reference in terval BUN 16 7 - 25 mg/dL [facility]. [facility] CREATININE 0.90 0.70 - 1.25 mg/dL [facility] Comment: For patients >49 years of age, the reference limit for Creatinine is approximately 13% higher for people identified as -Vietnamese. GFR 90 > OR = 60 mL/min/1 .73m2 [facility] GFR, 104 > OR = 60 mL/min/1 .73m2 [facility] BUN/CREAT RATIO NOT APPLICABLE 6 - 22 (calc) [facility] SODIUM 139 135 - 146 mmol/L [facility] . [facility] POTASSIUM 4.7 3.5 - 5.3 mmol/L [facility] . [facility] CHLORIDE 103 98 - 110 mmol/L [facility] [employer] [facility] CO2 28 20 - 31 mmol/L [facility] . [facility] CALCIUM 9.8 8.6 - 10.3 mg/dL [facility] [employer] . [facility] TOTAL PROTEIN 7.3 6.1 - 8.1 g/dL [facility]. [facility] ALBUMIN 4.2 3.6 - 5.1 g/dL [facility] [employer] . [facility] GLOBULIN 3.1 1.9 - 3.7 g/dL (calc) [facility] [employer] . [facility] ALBUMIN/GLOBULIN RATIO 1.4 1.0 - 2.5 (calc) [facility] [employer] [facility] BILIRUBIN TOTAL 0.7 0.2 - 1.2 mg/dL [facility] [employer] [facility] ALKALINE PHOSPHATASE 67 40 - 115 U/L [facility] AST 24 10 - 35 U/L [facility] . [facility] ALT 37 9 - 46 U/L [facility] Comment: REPORT COMMENT: FASTING:YES Test Performed at: [facility] [address] [address] [place], [place] ??[phone] MINO ZAMAN DO,MPH 04/04/2016 7:33 AM CDT Ciro Fernandez DO CHEMISTRY ORDERABLES Performing Organization Address [facility] Co de Phone Number [facility] [address] [place] [address] * LIPID PANEL (04/04/2016 7:33 AM CDT) CHOLESTEROL 147 125 - 200 mg/dL [facility] HDL 40 > OR = 40 mg/dL [facility] [employer] [facility] TRIGLYCERIDE 107 <150 mg/dL [facility] LDL CALCULATED 86 <130 mg/dL (calc) [facility] Comment: Desirable range <100 mg/dL for patients with CHD or diabetes and <70 mg/dL for diabetic patients with known heart disease. CHOL/HDL RATIO 3.7 < OR = 5.0 (calc) [facility] TOTAL NON-HDL CHOL(LDL+VLDL) 107 mg/dL (calc) [facility] Comment: Target for non-HDL cholesterol is 30 mg/dL higher than LDL cholesterol target. Test Performed at: [employer] ??[phone] MINO ZAMAN DO,MPH 04/04/2016 7:33 AM CDT Ciro Fernandez DO CHEMISTRY ORDERABLES Performing Organization Address [facility] de Phone Number [facility] [address] [place] [address] * PSA (04/04/2016 7:33 AM CDT) Pathologist [facility] PSA 0.3 < OR = 4.0 ng/mL [facility] Comment: This test was performed using the Siemens chemiluminescent method. Values obtained from different assay methods cannot be used interchangeably. PSA levels, regardless of value, should not be interpreted as absolute evidence of the presence or absence of disease. REPORT COMMENT: FASTING:YES Test Performed at: [facility] [employer] ??[phone] MINO ZAMAN DO,MPH 04/04/2016 7:33 AM CDT Ciro Fernandez DO CHEMISTRY ORDERABLES Performing Organization Address [facility]/State/ZIP Co de Phone Number [facility] [address] [place] [address] documented in this encounter Visit Diagnoses Not on filedocumented in this encounter
--- OUTSIDE RECORDS SUMMARY | 2024-08-19 13:57 | XMS_ITS | Encounter Summary ---
Author Organization [facility] Address [address] [place] [address] Care Team Providers Care Fbi Special Agent Name Role Phone Unavailable Primary Care Provider Unavailabl e Reason for Visit * Reason Onset Date Comments Medication Refill 02/02/2017 Encounter Details Date Type Department Care Team (Late st Contact Info) Description 02/02/2017 Refill [facility] - [facility] Abundio Yuan [address] [facility] [address] [place] [address] Ciro Fernandez DO 107 [facility] [address] [place] [address] Social History Tobacco Use Types [...] Notes * Telephone Encounter - Edna Jackson, [facility] - 02/02/2017 4:17 PM CDTFrom: Brendon Aldana To: Ciro Fernandez DO Sent: 02/02/2017 4:15 PM CDT Subject: Medication Renewal Request Original authorizing provider: DO Brendon Tom would like a refill of the following medications: cetirizine-pseudoephedrine sr 12 hour (ZyrTEC-D) 5-120 mg tablet [Ciro Fernandez DO] Preferred pharmacy: [id number] [address] [place], [place] [address] Delivery method: Pickup Comment: documented in this encounter Plan of Treatment Not on file documented as of this encounter Visit Diagnoses Not on filedocumented in this encounter
--- OUTSIDE RECORDS SUMMARY | 2024-08-19 13:57 | XMS_ITS | Encounter Summary ---
Author Organization [facility] Address [address] [place] [address] Care Team Providers Care Pressfitter Name Role Phone Unavailable Primary Care Provider Unavailabl e Reason for Visit * Reason Onset Date Comments Medication Refill 12/04/2017 Encounter Details Date Type Department Care Team (Late st Contact Info) Description 12/06/2017 Refill [facility] Family Medicine - [address]ra [address] [place] [address] Ciro Fernandez, DO 107 [facility] [address] [place] [address] Social History Tobacco Use Types [...]
--- OUTSIDE RECORDS SUMMARY | 2024-08-19 13:57 | XMS_ITS | Encounter Summary ---
Author Organization [facility] Address [address] [place] [address] Care Team Providers Care Artillery Or Naval Gunfire Observer Name Role Phone Unavailable Primary Care Provider Unavailabl e Reason for Visit * Reason Onset Date Comments Medication Refill 04/18/2017 Encounter Details Date Type Department Care Team (Late st Contact Info) Description 04/19/2017 Refill [facility] - [facility] Abundio Yuan [address] [facility] [address] [place] [address] Ciro Fernandez DO [address] [facility] [address] [place] [address] Social History Tobacco Use Types [...] mg tablet [Ciro Fernandez DO] Preferred pharmacy: [id number] [address] [facility] Delivery method: Pickup Comment: Please send this rx to [facility]. Thank you. documented in this encounter Plan of Treatment Not on file documented as of this encounter Visit Diagnoses Not on filedocumented in this encounter
--- OUTSIDE RECORDS SUMMARY | 2024-08-19 13:57 | XMS_ITS | Encounter Summary ---
Author Organization [facility] Address [address] [place] [address] Care Team Providers Care Time Study Statistician Name Role Phone Unavailable Primary Care Provider Unavailabl e Reason for Visit * Reason Onset Date Comments Medication Refill 09/10/2016 Encounter Details Date Type Department Care Team (Late st Contact Info) Description 09/10/2016 Refill [facility] Family Medicine - Bushra Yuan [address] [facility] Abundio [address] [place] [address] Ciro Fernandez, DO [address] [facility] [address] [place] [address] Social History Tobacco Use Types [...] Comments LIPID PANEL Routine 10/03/2016 7:33 AM HOME SALES SERVICE PROFESSIONAL COMPREHENSIVE METABOLIC PANEL Routine 10/03/2016 7:33 AM HOME SALES SERVICE PROFESSIONAL documented in this encounter Results * (ABNORMAL) COMPREHENSIVE METABOLIC PANEL (10/03/2016 7:33 AM HOME SALES SERVICE PROFESSIONAL) GLUCOSE 102(H) 65 - 99 mg/dL [facility] Comment:Fasting reference in terval BUN 20 7 - 25 mg/dL [facility] CREATININE 0.89 0.70 - 1.25 mg/dL [facility] Comment: For patients >49 years of age, the reference limit for Creatinine is approximately 13% higher for people identified as -Slovak. GFR 90 > OR = 60 mL/min/1 .73m2 [facility] GFR, 105 > OR = 60 mL/min/1 .73m2 [facility] BUN/CREAT RATIO NOT APPLICABLE 6 - 22 (calc) [facility] SODIUM 139 135 - 146 mmol/L [facility] . [facility] POTASSIUM 4.5 3.5 - 5.3 mmol/L [facility] . [facility] CHLORIDE 104 98 - 110 mmol/L [facility] . [place] CO2 28 20 - 31 mmol/L [facility] . [place] CALCIUM 9.7 8.6 - 10.3 mg/dL [facility] TOTAL PROTEIN 7.4 6.1 - 8.1 g/dL [facility] [employer] [facility] ALBUMIN 4.5 3.6 - 5.1 g/dL [facility] [employer] [facility] GLOBULIN 2.9 1.9 - 3.7 g/dL (calc) [facility] ALBUMIN/GLOBULIN RATIO 1.6 1.0 - 2.5 (calc) [facility] [employer] [facility] BILIRUBIN TOTAL 1.1 0.2 - 1.2 mg/dL [facility] [employer] [facility] ALKALINE PHOSPHATASE 64 40 - 115 U/L [facility] AST 23 10 - 35 U/L [facility] ALT 34 9 - 46 U/L [facility] Comment: REPORT COMMENT: FASTING:YES Test Performed at: [employer] [address] ??[phone] MINO ZAMAN DO,MPH 10/03/2016 7:33 AM HOME SALES SERVICE PROFESSIONAL Ciro Fernandez DO CHEMISTRY ORDERABLES [facility] [facility] . [place] [address] [place] [address] * LIPID PANEL (10/03/2016 7:33 AM HOME SALES SERVICE PROFESSIONAL) CHOLESTEROL 135 125 - 200 mg/dL [facility] . [facility] HDL 43 > OR = 40 mg/dL [employer] [facility] TRIGLYCERIDE 98 <150 mg/dL [employer] [facility] LDL CALCULATED 72 <130 mg/dL (calc) [employer] [facility] Comment: Desirable range <100 mg/dL for patients with CHD or diabetes and <70 mg/dL for diabetic patients with known heart disease. CHOL/HDL RATIO 3.1 < OR = 5.0 (calc) [employer] [facility] TOTAL NON-HDL CHOL(LDL+VLDL) 92 mg/dL (calc) [employer] [facility] Comment: Target for non-HDL cholesterol is 30 mg/dL higher than LDL cholesterol target. Test Performed at: [employer] [facility] [address] [place], [place] ??[phone] MINO ZAMAN DO,MPH 10/03/2016 7:33 AM HOME SALES SERVICE PROFESSIONAL Ciro Fernandez DO CHEMISTRY ORDERABLES [employer] [facility] [address] [place] [address] documented in this encounter Visit Diagnoses Not on filedocumented in this encounter
--- OUTSIDE RECORDS SUMMARY | 2024-08-19 13:57 | XMS_ITS | Encounter Summary ---
Author Organization [facility] Address [address] [place] [address] Care Team Providers Care Events Associate Name Role Phone Unavailable Primary Care Provider Unavailabl e Reason for Visit * Reason Onset Date Comments feeling worse 05/22/2017 Encounter Details Date Type Department Care Team (Late st Contact Info) Description 05/22/2017 Telephone [facility] Family Medicine - [facility] [address] [facility] [address] [place] [address] Ciro Fernandez, DO 107 [facility] [address] [place] [address] feeling worse Social History Tobacco [...] can prescribe for his cough? Pharmacy is [facility] documented in this encounter Plan of Treatment Not on file documented as of this encounter Visit Diagnoses Not on filedocumented in this encounter
--- OUTSIDE RECORDS SUMMARY | 2024-08-19 13:57 | XMS_ITS | Encounter Summary ---
Author Organization [facility] Address [address] [place] [address] Care Team Providers Care Validation Specialist Name Role Phone Unavailable Primary Care Provider Unavailabl e Reason for Visit * Reason Onset Date Comments Medication Refill 09/09/2017 Encounter Details Date Type Department Care Team (Late st Contact Info) Description 09/09/2017 Refill [facility] Family Medicine - Bushra Yuan [address] [place] [address] Ciro Fernandez, DO 107 [facility] [address] [place] [address] Social History Tobacco Use Types [...]
--- OUTSIDE RECORDS SUMMARY | 2024-08-19 13:57 | XMS_ITS | Encounter Summary ---
Author Organization [facility] Address [address] [place] [address] Care Team Providers Care Business Case Analyst Name Role Phone Unavailable Primary Care Provider Unavailabl e Reason for Visit * Reason Onset Date Comments Medication Refill 04/21/2017 Encounter Details Date Type Department Care Team (Late st Contact Info) Description 04/21/2017 Refill [facility] Family Medicine - [facility] Abundio Yuan [address] [facility] [address] [place] [address] Ciro Fernandez DO [address] [facility] [address] [place] [address] Social History Tobacco Use Types [...] mg tablet [Ciro Fernandez DO] Preferred pharmacy: [facility] - [address] Delivery method: Pickup Comment: Rx needs to be written as a 90 day rx and sent to [facility]. Thank you. documented in this encounter Plan of Treatment Not on file documented as of this encounter Visit Diagnoses Not on filedocumented in this encounter
--- OUTSIDE RECORDS SUMMARY | 2024-08-19 13:57 | XMS_ITS | Encounter Summary ---
Author Organization [facility] Address [address] [place] [address] Care Team Providers Care Rural Carrier Associate Name Role Phone Unavailable Primary Care Provider Unavailabl e Reason for Visit * Reason Onset Date Comments Results 10/05/2016 Encounter Details Date Type Department Care Team (Late st Contact Info) Description 10/05/2016 Telephone [facility] Family Medicine - [facility] [address] [facility] [address] [place] [address] Ciro Fernandez DO 107 [facility] [address] [place] [address] Results Social History Tobacco Use [...] - 10/05/2016 1:43 PM CST PT INFORMED/SB FAMILY * Telephone Encounter - Jennifer Burnett - 10/05/2016 1:43 PM CST ----- Message from Ciro Fernandez DO sent at 10/05/2016 12:33 PM RN FAMILY ----- Your laboratory studies have been received, please return to office for a follow up examination specifically for a 30 minute visit because you are due for a WELL ADULT EXAMINATION. FAMILY * Telephone Encounter - Jennifer Burnett - 10/05/2016 1:42 PM CST ----- Message from Ciro Fernandez DO sent at 10/05/2016 12:33 PM RN FAMILY ----- Your laboratory studies have been received, please return to office for a follow up examination specifically for a 30 minute visit because you are due for a WELL ADULT EXAMINATION. FAMILY documented in this encounter Plan of Treatment Not on file documented as of this encounter Visit Diagnoses Not on filedocumented in this encounter
--- OUTSIDE RECORDS SUMMARY | 2024-08-19 13:57 | XMS_ITS | Encounter Summary ---
Author Organization [facility] Address [address] [place] [address] Care Team Providers Care Human Resource Manager Name Role Phone Unavailable Primary Care Provider Unavailabl e Encounter Details Date Type Department Care Team (Late st Contact Info) Description 05/22/2016 Orders Only [facility] Medicine - [facility] Kw[address] [facility] [address] [place] [address] Edna Jackson, A Social History [...]
--- OUTSIDE RECORDS SUMMARY | 2024-08-19 13:57 | XMS_ITS | Encounter Summary ---
Author Organization [facility] Address [address] [place] [address] Care Team Providers Care Program Director/Traffic Director Name Role Phone Unavailable Primary Care Provider Unavailabl e Reason for Visit * Reason Onset Date Comments Medication Refill 02/03/2017 Encounter Details Date Type Department Care Team (Late st Contact Info) Description 02/03/2017 Telephone [facility] Family Medicine - [facility] [address] [facility] [address] [place] [address] Ciro Fernandez, DO 107 [facility] [address] [place] [address] Medication Refill Social History Tobacco [...] pharmacy told him that he has to order picker/assembler the paper copy of Bria. He states that he lives in [place] and it is [address] here. He is asking if this medication could possibly be called in? States, [facility] the [facility] 2 years. If I lived closer, I would have no problem coming to your office. documented in this encounter Plan of Treatment Not on file documented as of this encounter Visit Diagnoses Not on filedocumented in this encounter
--- OUTSIDE RECORDS SUMMARY | 2024-08-19 13:58 | XMS_ITS | Encounter Summary ---
Author Organization [facility] Address [address] [place] [address] Care Team Providers Care Pulverizer Feeder Name Role Phone Unavailable Primary Care Provider Unavailabl e Reason for Visit * Reason Comments Hypertension follow up labs Encounter Details Date Type Department Care Team (Late st Contact Info) Description 05/09/2014 2:45 PM CDT Office Visit [facility] Medicine - [facility] Abundio [address] [facility] [address] [place] [address] Ciro Fernandez, DO 107 [facility] [address] [place] [address] Essential hypertension, benign (Primary Dx); [...]
--- OUTSIDE RECORDS SUMMARY | 2024-08-19 13:58 | XMS_ITS | Encounter Summary ---
Author Organization [facility] Address [address] [place] [address] Care Team Providers Care Booster Pump Operator Name Role Phone Unavailable Primary Care Provider Unavailabl e Reason for Visit * Reason Onset Date Comments Results 12/25/2014 Encounter Details Date Type Department Care Team ([facility] st Contact Info) Description 12/25/2014 Telephone [facility] Family Medicine - [facility] [address] [facility] [address] [place] [address] Ciro Fernandez DO [address] [facility] [address] [place] [address] Results Social History Tobacco Use [...] Miscellaneous Notes * Telephone Encounter - Fabian Sirera CMA - 12/25/2014 9:59 AM CDT Spoke [...]
--- OUTSIDE RECORDS SUMMARY | 2024-08-19 13:58 | XMS_ITS | Encounter Summary ---
Author Organization [facility] Address [address] [place] [address] Care Team Providers Care Lumber Straightener Name Role Phone Unavailable Primary Care Provider Unavailabl e Reason for Visit * Reason Onset Date Comments Results 11/14/2014 Encounter Details Date Type Department Care Team (Late st Contact Info) Description 11/14/2014 Telephone [facility] Family Medicine - [facility] Kw[address] [facility] [address] [place] [address] Ciro Fernandez DO [address] [facility] [address] [place] [address] Results Social History Tobacco Use [...]
--- OUTSIDE RECORDS SUMMARY | 2024-08-19 13:58 | XMS_ITS | Encounter Summary ---
Author Organization [facility] Address [address] [place] [address] Care Team Providers Care Disability Coordinator Name Role Phone Unavailable Primary Care Provider Unavailabl e Reason for Visit * Reason Comments Medication Refill Encounter Details Date Type Department Care Team (Late st Contact Info) Description 06/06/2014 Refill [facility] Family Medicine - [facility] [address] [facility] [address] [place] [address] Ciro Fernandez, DO 107 [facility] [address] [place] [address] Social History Tobacco Use Types [...]
--- OUTSIDE RECORDS SUMMARY | 2024-08-19 13:58 | XMS_ITS | Encounter Summary ---
Author Organization [facility] Address [address] [place] [address] Care Team Providers Care Copying Machine Mechanic Name Role Phone Unavailable Primary Care Provider Unavailabl e Reason for Visit * Reason Comments Medication Refill Encounter Details Date Type Department Care Team (Late st Contact Info) Description 03/18/2015 Refill [facility] - [facility] [address] [facility] [address] [place] [address] Ciro Fernandez, DO 107 [facility] [address] [place] [address] Social History Tobacco Use [...]
--- OUTSIDE RECORDS SUMMARY | 2024-08-19 13:58 | XMS_ITS | Encounter Summary ---
Author Organization [facility] Address [address] [place] [address] Care Team Providers Care Auto Battery Builder Name Role Phone Unavailable Primary Care Provider Unavailabl e Reason for Visit * Reason Onset Date Comments Results 12/17/2014 labs Encounter Details Date Type Department Care Team (Late st Contact Info) Description 12/17/2014 Telephone [facility] Medicine - [facility] [address] [facility] [address] [place] [address] Ciro Fernandez DO [address] [facility] [address] [place] [address] Results (labs) Social History Tobacco [...]
--- OUTSIDE RECORDS SUMMARY | 2024-08-19 13:58 | XMS_ITS | Encounter Summary ---
Author Organization [facility] Address [address] [place] [address] Care Team Providers Care Segment Assembler Name Role Phone Unavailable Primary Care Provider Unavailabl e Reason for Visit * Reason Onset Date Comments Medication Refill 05/25/2014 Encounter Details Date Type Department Care Team (Late st Contact Info) Description 05/25/2014 Refill [facility] - [facility] [address] [facility] [address] [place] [address] Ciro Fernandez DO [address] [facility] [address] [place] [address] Allergic rhinitis (Primary Dx) Social [...] Notes * Telephone Encounter - Kay Jesus, [facility] - 05/28/2014 8:12 AM CDTFrom: Brendon Aldana To: Ciro Fernandez DO Sent: 05/25/2014 7:57 PM CDT Subject: Medication Renewal Request Original authorizing provider: DO Brendon Tom would like a refill of the following medications: fluticasone (FLONASE) 50 mcg/spray [place], [place] [Ciro Fernandez DO] Preferred pharmacy: [facility] - [address] Comment: I realize I have refills to [facility] on the nose spray but [facility] says this needs to be written as a. 90 day rx and sent to [facility]. Thank you. documented in this encounter Plan of Treatment Not on file documented as of this encounter Visit Diagnoses Diagnosis Allergic rhinitis- Primary Allergic rhinitis, cause unspecified documented in this encounter
--- OUTSIDE RECORDS SUMMARY | 2024-08-19 13:58 | XMS_ITS | Encounter Summary ---
Author Organization [facility] Address [address] [place] [address] Care Team Providers Care Genetic Scientist Name Role Phone Unavailable Primary Care Provider Unavailabl e Reason for Visit * Reason Onset Date Comments Medication Refill 10/07/2015 Encounter Details Date Type Department Care Team (Late st Contact Info) Description 10/07/2015 Refill [facility] Family Medicine - [facility] [address] [facility] [place] [address] [place] [address] Ciro Fernandez DO [address] [facility] [address] [place] [address] Social History Tobacco Use Types [...] Notes * Telephone Encounter - Kay Jesus [facility] - 10/07/2015 2:10 PM CSTFrom: Brendon Aldana To: Ciro Fernandez DO Sent: 10/07/2015 1:04 PM MEDICAL DIAGNOSTIC RADIOGRAPHER Subject: Medication Renewal Request Original authorizing provider: DO Brendon Tom would like a refill of the following medications: losartan (COZAAR) 50 mg tablet [Ciro Fernandez DO] Preferred pharmacy: [facility] - [address] Comment: I also need a refill for fluticasone propionate nasal spray 50 mcg. Both Rx must be written as a Rx and sent to [facility]. Thank you. CAL DIAGNOSTIC RADIOGRAPHER documented in this encounter Plan of Treatment Not on file documented as of this encounter Visit Diagnoses Not on filedocumented in this encounter
--- OUTSIDE RECORDS SUMMARY | 2024-08-19 13:58 | XMS_ITS | Encounter Summary ---
Author Organization [facility] Address [address] [place] [address] Care Team Providers Care Fruit Coordinator Name Role Phone Unavailable Primary Care Provider Unavailabl e Reason for Visit * Reason Comments Medication Refill Encounter Details Date Type Department Care Team (Late st Contact Info) Description 10/22/2015 Refill [facility] Family [facility] - [facility] [address] [facility] [address] [place] [address] Ciro Fernandez, DO [address] [facility] [address] [place] [address] Social History Tobacco Use Types [...]
--- OUTSIDE RECORDS SUMMARY | 2024-08-19 13:58 | XMS_ITS | Encounter Summary ---
Author Organization [facility] Address [address] [place] [address] Care Team Providers Care Lead Refiner Name Role Phone Unavailable Primary Care Provider Unavailabl e Reason for Visit * Reason Comments Sinus Pain congestion x 6 days Encounter Details Date Type Department Care Team ([facility] st Contact Info) Description 05/15/2014 11:30 AM CDT Office Visit [facility] Medicine - [facility] [address] [facility] [address] [place] [address] Ciro Fernandez, DO [address] [facility] [address] [place] [address] Sinusitis, acute (Primary Dx) Social [...]
--- OUTSIDE RECORDS SUMMARY | 2024-08-19 13:58 | XMS_ITS | Encounter Summary ---
Author Organization [facility] Address [address] [place] [address] Care Team Providers Care Lining Closer Name Role Phone Unavailable Primary Care Provider Unavailabl e Reason for Visit * Reason Onset Date Comments Medication Refill 10/11/2014 Encounter Details Date Type Department Care Team (Late st Contact Info) Description 10/11/2014 Refill [facility] Family [facility] - [facility] [address] [facility] [address] [place] [address] Ciro Fernandez DO 107 [facility] [address] [place] [address] Social History Tobacco Use Types [...] Notes * Telephone Encounter - Kay Jesus CUTTER OPERATOR - 10/12/2014 8:06 AM CSTFrom: Brendon Aldana To: Ciro Fernandez DO Sent: 10/11/2014 4:53 PM VEST FRONT PRESSER Subject: Medication Renewal Request Original authorizing provider: DO Brendon Tom would like a refill of the following medications: losartan (COZAAR) 50 mg tablet [Ciro Fernandez DO] Preferred pharmacy: [facility] - [place], [place] - [address] [place] [address] Comment: For some reason [facility] says there are no refills left on this. So I guess I need a refill which must be written as a 90 day rx. Thank you. FRONT PRESSER documented in this encounter Plan of Treatment Not on file documented as of this encounter Visit Diagnoses Not on filedocumented in this encounter
--- OUTSIDE RECORDS SUMMARY | 2024-08-19 13:58 | XMS_ITS | Encounter Summary ---
Author Organization [facility] Address [address] [place] [address] Care Team Providers Care Operations Director Name Role Phone Unavailable Primary Care Provider Unavailabl e Reason for Visit * Reason Onset Date Comments Medication Refill 11/11/2014 Encounter Details Date Type Department Care Team (Late st Contact Info) Description 11/11/2014 Refill [facility] Family [facility] - [facility] [address] [facility] [address] [place] [address] Ciro Fernandez DO 107 [facility] [address] [place] [address] Social History Tobacco Use Types [...] mg tablet [Ciro Fernandez DO] Preferred pharmacy: [facility] - [address] Comment: Rx must be written as [...] CDT) GLUCOSE 104(H) 65 - 99 mg/dL [facility] Comment:Fasting reference in terval BUN 12 7 - 25 mg/dL [facility] CREATININE 0.86 0.70 - 1.25 mg/dL [facility] Comment: For patients >49 years of age, the reference limit for Creatinine is approximately 13% higher for people identified as -Malagasy. GFR 93 > OR = 60 mL/min/1 .73m2 [facility] GFR, 108 > OR = 60 mL/min/1 .73m2 [facility] BUN/CREAT RATIO NOT APPLICABLE 6 - 22 (calc) [facility] SODIUM 139 135 - 146 mmol/L [facility] POTASSIUM 4.3 3.5 - 5.3 mmol/L [facility] CHLORIDE 103 98 - 110 mmol/L [facility] CO2 28 19 - 30 mmol/L [facility] CALCIUM 9.6 8.6 - 10.3 mg/dL [facility] TOTAL PROTEIN 7.6 6.1 - 8.1 g/dL [facility] ALBUMIN 4.3 3.6 - 5.1 g/dL [facility] GLOBULIN 3.3 1.9 - 3.7 g/dL (calc) [facility] ALBUMIN/GLOBULIN RATIO 1.3 1.0 - 2.5 (calc) [facility] BILIRUBIN TOTAL 0.6 0.2 - 1.2 mg/dL [facility] ALKALINE PHOSPHATASE 79 40 - 115 U/L [facility] AST 24 10 - 35 U/L [facility] ALT 36 9 - 46 U/L [facility] Comment: REPORT COMMENT: FASTING:YES Test Performed at: [facility] ??[phone] MINO ZAMAN DO,MPH 11/10/2014 7:13 AM CDT Ciro Fernandez DO CHEMISTRY ORDERABLES Performing Organization Address [facility] Co de Phone Number [facility] [address] [place] [address] * LIPID PANEL (11/10/2014 7:13 AM CDT) Pathologist [facility] CHOLESTEROL 133 125 - 200 mg/dL [facility] Comment: Test Performed at: [facility] [address] ??[address] MINO ZAMAN DO,MPH HDL 45 > OR = 40 mg/dL [facility] TRIGLYCERIDE 84 <150 mg/dL [facility] LDL CALCULATED 71 <130 mg/dL (calc) [facility] Comment: Desirable range <100 mg/dL for patients with CHD or diabetes and <70 mg/dL for diabetic patients with known heart disease. CHOL/HDL RATIO 3.0 < OR = 5.0 (calc) [facility] TOTAL NON-HDL CHOL(LDL+VLDL) 88 mg/dL (calc) [facility] Comment: Target for non-HDL cholesterol is 30 mg/dL higher than LDL cholesterol target. 11/10/2014 7:13 AM CDT Ciro Fernandez DO CHEMISTRY ORDERABLES Performing Organization Address [facility] Co de Phone Number [employer] [address] [place] [address] * PSA (11/10/2014 7:13 AM CDT) PSA 0.3 < OR = 4.0 ng/mL [facility] Comment: This test was performed using the Siemens chemiluminescent method. Values obtained from different assay methods cannot be used interchangeably. PSA levels, regardless of value, should not be interpreted as absolute evidence of the presence or absence of disease. REPORT COMMENT: FASTING:YES Test Performed at: [facility] [address] [facility] [place] ??[phone] MINO ZAMAN DO,MPH 11/10/2014 7:13 AM CDT Ciro Fernandez DO CHEMISTRY ORDERABLES [facility] [address] [place] [address] documented in this encounter Visit Diagnoses Not on filedocumented in this encounter
--- OUTSIDE RECORDS SUMMARY | 2024-08-19 13:58 | XMS_ITS | Encounter Summary ---
Author Organization [facility] Address [address] [place] [address] Care Team Providers Care Web Development Manager Name Role Phone Unavailable Primary Care Provider Unavailabl e Reason for Visit * Reason Comments Groin Pain right Encounter Details Date Type Department Care Team (Late st Contact Info) Description 10/14/2015 4:00 PM CUSTOMER EXPERIENCE ANALYST Office Visit [facility] - [facility] [address] [facility] [address] [place] [address] Ciro Fernandez, DO 107 [facility] [address] [place] [address] Groin pain, right (Primary Dx); [...] Comments Blood Pressure 136/80 10/14/2015 3:51 PM CUSTOMER EXPERIENCE ANALYST Pulse 72 10/14/2015 3:51 PM CUSTOMER EXPERIENCE ANALYST Temperature 36.7 ??C (98.1 ??F) 10/14/2015 3:51 PM CS T Respiratory Rate - - Oxygen Saturation - - Inhaled Oxygen Concentration - - Weight 95.3 kg (210 lb) 10/14/2015 3:51 PM CUSTOMER EXPERIENCE ANALYST Height 177.8 cm (5' 10 ) 10/14/2015 3:51 PM CUSTOMER EXPERIENCE ANALYST Body Mass Index 30.13 10/14/2015 3:51 PM CUSTOMER EXPERIENCE ANALYST documented in this encounter Progress Notes * [...] worsen or fail to improve as anticipated. OMER EXPERIENCE ANALYST documented in this encounter Plan of Treatment Not on file documented as of this encounter Procedures Procedure Name Priority Date/Time Associated Diagnosis Comments POC URINALYSIS DIPSTICK NON AUTOMATED Routine 10/14/2015 4:17 PM CUSTOMER EXPERIENCE ANALYST Groin pain, right documented in this encounter Results * POC URINALYSIS DIPSTICK NON AUTOMATED (10/14/2015 4:17 PM CUSTOMER EXPERIENCE ANALYST) COLOR UA Yellow Pale to Dark Yellow [...] CLINIC Urine specimen (specimen) 10/14/2015 4:17 PM CUSTOMER EXPERIENCE ANALYST Ciro Fernandez DO POINT OF CARE TESTIN [facility] documented in this encounter Visit Diagnoses Diagnosis Groin pain, right- Primary Groin strain, initial encounter Right epididymitis Orchitis and epididymitis, unspecified documented in this encounter
--- OUTSIDE RECORDS SUMMARY | 2024-08-19 13:58 | XMS_ITS | Encounter Summary ---
Author Organization [facility] Address [address] [place] [address] Care Team Providers Care Call Center Operator Name Role Phone Unavailable Primary Care Provider Unavailabl e Reason for Visit * Reason Comments Physical follow up labs Encounter Details Date Type Department Care Team (Late st Contact Info) Description 12/14/2014 2:00 PM CDT Office Visit [facility] Medicine - [facility] [address] [facility] [address] [place] [address] Ciro Fernandez, DO 107 [facility] [address] [place] [address] Well adult exam (Primary Dx); [...] CDT) TESTOSTERONE 476 250 - 1100 ng/dL [facility] Comment: ??Males: Men with clinically significant hypogonadal symptoms and testosterone values repeatedly in the range of the 200-300 ng/dL or less, may benefit from testosterone treatment after adequate risk and benefits counseling. TESTOSTERONE FREE 55.2 35.0 - 155.0 pg/mL [facility] Comment: Test Performed at: [facility] [address] [place], [place] ??[address] ROE FLORES MD,FCAP 12/15/2014 7:05 AM CDT Ciro Fernandez DO CHEMISTRY ORDERABLES [facility] [address] [place] [address] * (ABNORMAL) VITAMIN D 25 HYDROXY (12/15/2014 7:05 AM CDT) VITAMIN D, 25 OH, TOTAL 19(L) 30 - 100 ng/mL [facility] Comment: Vitamin D Status ? 25-OH Vitamin D: Deficiency: ?<20 ng/mL Insufficiency: ? 20 - 29 ng/mL Optimal: ? > or = 30 ng/mL For 25-OH Vitamin D testing on patients on D2-supplementation and patients for whom quantitation of D2 and D3 fractions is required, the QuestAssureD(TM) 25-OH VIT D, (D2,D3), LC/MS/MS is recommended: order code 52998 (patients >2yrs). For more information on this test, go to: http://education.CYP [employer]/faq/RJC314 Effective December 10, the test order code 59387, used prior to December 10, for LC/MS/MS, will be transitioned to a carefully-selected immunoassay methodology. ??The new immunoassay has passed CDC standardization certification and provides high quality quantitative results that are tied back to standards from the NIST. ?? For those patients for whom LC/MS/MS testing is appropriate, please utilize test code 25545. When LC/MS/MS is the chosen assay, utilize test code 71105 for patients > or = 3 years of age, patients who are on D2 supplementation, and patients for whom a separate D2 and D3 measurement is required. For patients <3 years of age, test code 53049 should be used. Important Note Regarding Custom Panels With 25-Hydroxyvitamin D: If you currently order vitamin D testing as part of a custom panel, the LC/MS/MS vitamin D test will be maintained in your panel after December 10, 2014. If you would like to replace the test in your panel with the new immunoassay, or have any questions regarding the transition of the 84317 test code, please contact your local [employer] sales and merchandising associate. Test Performed at: [facility] [address] [place], [place] ??[address] MINO ZAMAN DO,MPH 12/15/2014 7:05 AM CDT Ciro Fernandez DO CHEMISTRY ORDERABLES [facility] [address] [place] [address] * VITAMIN B12 LEVEL (12/15/2014 7:05 AM CDT) VITAMIN B12 467 200 - 1100 pg/mL [facility] Comment: Test Performed at: [facility] [id number] [place] [address] ??[phone] MINO ZAMAN DO,MPH 12/15/2014 7:05 AM CDT Ciro Fernandez DO CHEMISTRY ORDERABLES Performing Organization Address [facility] Co de Phone Number [facility] [address] [place] [address] * TSH (12/15/2014 7:05 AM CDT) Pathologist [facility] TSH 1.67 0.40 - 4.50 mIU/L [facility] Comment: Test Performed at: [facility] [address] [place], [place] ??[address] MINO ZAMAN DO,MPH 12/15/2014 7:05 AM CDT Ciro Fernandez DO CHEMISTRY ORDERABLES Performing Organization Address [facility] Co de Phone Number [facility] [address] [place] [address] * (ABNORMAL) COMPREHENSIVE METABOLIC PANEL (12/15/2014 7:05 AM CDT) [facility] GLUCOSE 96 65 - 99 mg/dL [facility] Comment:Fasting reference in terval BUN 13 7 - 25 mg/dL [facility] . [facility] CREATININE 0.86 0.70 - 1.25 mg/dL [facility] Comment: For patients >49 years of age, the reference limit for Creatinine is approximately 13% higher for people identified as -Tongan. GFR 93 > OR = 60 mL/min/1 .73m2 [facility] . [facility] GFR, 108 > OR = 60 mL/min/1 .73m2 [facility] . [facility] BUN/CREAT RATIO NOT APPLICABLE 6 - 22 (calc) [facility] SODIUM 140 135 - 146 mmol/L [facility] . [facility] POTASSIUM 4.5 3.5 - 5.3 mmol/L [facility] . [facility] CHLORIDE 102 98 - 110 mmol/L [facility] CO2 27 19 - 30 mmol/L [facility] . [place] CALCIUM 9.4 8.6 - 10.3 mg/dL [facility] . [facility] TOTAL PROTEIN 7.4 6.1 - 8.1 g/dL [facility] . [place] ALBUMIN 4.3 3.6 - 5.1 g/dL [facility] . [place] GLOBULIN 3.1 1.9 - 3.7 g/dL (calc) [facility] . [place] ALBUMIN/GLOBULIN RATIO 1.4 1.0 - 2.5 (calc) [facility] . [place] BILIRUBIN TOTAL 0.6 0.2 - 1.2 mg/dL [facility] . [place] ALKALINE PHOSPHATASE 75 40 - 115 U/L [facility] . [place] AST 32 10 - 35 U/L [facility] . [place] ALT 47(H) 9 - 46 U/L [facility] Comment: Test Performed at: [facility] [place] [address] [place] [place], [place] ??[address] MINO ZAMAN DO,MPH 12/15/2014 7:05 AM CDT Ciro Fernandez DO CHEMISTRY ORDERABLES [facility] [address] [place] [address] * CBC WITH DIFFERENTIAL (12/15/2014 7:05 AM CDT) WBC 6.3 3.8 - 10.8 Thousand/u L [facility] RBC 5.03 4.20 - 5.80 Million/uL [facility] HEMOGLOBIN 15.5 13.2 - 17.1 g/dL [facility] HEMATOCRIT 46.8 38.5 - 50.0 % [facility] . [place] MCV 93.0 80.0 - 100.0 fL [facility] . [place] MCH 30.7 27.0 - 33.0 pg [facility] . [place] MCHC 33.0 32.0 - 36.0 g/dL [facility] RDW 13.4 11.0 - 15.0 % [facility] PLATELETS 221 140 - 400 Thousand/u L [facility] NEUTROPHIL ABSOLUTE 3,163 1,500 - 7,800 [...] DIAGNOSTICS [facility] Comment: Test Performed at: [facility] [address] [place], [place] ??[address] MINO ZAMAN DO,MPH 12/15/2014 7:05 AM CDT Ciro Fernandez DO HEMATOLOGY ORDERABLE S [facility] [address] [place] [address] * POC OCCULT BLOOD UP TO 3 [...]
--- OUTSIDE RECORDS SUMMARY | 2024-08-19 13:58 | XMS_ITS | Encounter Summary ---
Author Organization [facility] Address [address] [place] [address] Care Team Providers Care Healthcare Consultant Name Role Phone Unavailable Primary Care Provider Unavailabl e Reason for Visit * Reason Comments Cough congestion x 1 week Encounter Details Date Type Department Care Team (Late st Contact Info) Description 11/15/2014 1:00 PM CDT Office Visit [facility] Medicine - [facility] [address] [facility] [address] [place] [address] Ciro Fernandez, DO 107 [facility] [address] [place] [address] Sinusitis, acute (Primary Dx) Social [...]
--- OUTSIDE RECORDS SUMMARY | 2024-08-19 13:58 | XMS_ITS | Encounter Summary ---
Author Organization [facility] Address [address] [place] [address] Care Team Providers Care Metallurgical Engineering Teacher Name Role Phone Unavailable Primary Care Provider Unavailabl e Reason for Visit * Reason Comments Eye Exam Esotropia evaluation Encounter Details Date Type Department Care Team (Latest Contact Info) Description 12/19/2015 3:30 PM CDT Office Visit [facility] [address] [place] [address] Claudette Medina MD [address] [place] [address] Divergence insufficiency (Primary Dx); Nuclear [...] glaucoma Last eye exam: 10/2015 Dr. Donnelly ([facility] Manager Of Human Resources) REVIEW OF SYSTEMS Review of Systems Constitutional: [...] interested in prism - rec visit with ship's carpenter for prism evaluation for distance vision, pt [...]
--- OUTSIDE RECORDS SUMMARY | 2024-08-19 13:58 | XMS_ITS | Encounter Summary ---
Author Organization [facility] Address [address] [place] [address] Care Team Providers Care Rubber Thread Spooler Name Role Phone Unavailable Primary Care Provider Unavailabl e Reason for Visit * Reason Onset Date Comments Medication Refill 01/11/2016 Encounter Details Date Type Department Care Team (Late st Contact Info) Description 01/13/2016 Refill [facility] Family Medicine - [facility] [address] [facility] [address] [place] [address] Ciro Fernandez DO [address] [facility] [address] [place] [address] Pure hypercholesterolemia Social History Tobacco [...] Notes * Telephone Encounter - Kay Jesus FOREST RESOURCE SPECIALIST - 01/13/2016 8:11 AM CDTFrom: Brendon Aldana To: Ciro Fernandez DO Sent: 01/11/2016 3:49 PM CDT Subject: Medication Renewal Request Original authorizing provider: DO Brendon Tom would like a refill of the following medications: simvastatin (ZOCOR) 40 mg tablet [Ciro Fernandez DO] Preferred pharmacy: [facility] - [place], [place] - [address] [place] [address] Comment: Rx must be written as a 90 day Rx and sent to [facility]. documented in this encounter Plan of Treatment Not on file documented as of this encounter Visit Diagnoses Diagnosis Pure hypercholesterolemia documented in this encounter
--- OUTSIDE RECORDS SUMMARY | 2024-08-19 13:58 | XMS_ITS | Encounter Summary ---
Author Organization [facility] Address [address] [place] [address] Care Team Providers Care Director Print Name Role Phone Unavailable Primary Care Provider Unavailabl e Reason for Visit * Reason Comments Procedure Lesion removal on L scalp. Encounter Details Date Type Department Care Team (Latest Contact Info) Description 03/27/2016 1:00 PM CDT Procedure visit [facility] Medicine - [facility] [address] [facility] [address] [place] [address] Ciro Fernandez, DO [address] [facility] [address] [place] [address] Neoplasm of uncertain behavior (Primary [...] uncertain behavior - PATHOLOGY; Future - NE BIOPSY OF SKIN LESION Benign neoplasm of skin of face - NE EXC SKIN BENIG 0.6-1CM FACE,FACIAL Discussed Risks, [...] CASE REPORT Surgical Pathology Report ? Case: [id number] ? Authorizing Provider: ??Ciro Fernandez DO ?Collected: ? 03/27/2016 01:10 PM ? Ordering Location: ? [facility] ?? Received: ?03/28/2016 07:15 AM ? Services [facility] ? Pathologist: ? Landry Klein MD ? Specimen: ?Skin, left side of the scalp ? 03/30/2016 3:04 PM CDT [email or web address] [facility] FINAL DIAGNOSIS Skin, left side of scalp, punch biopsy: - Seborrheic keratosis, inflamed. 03/30/2016 3:04 PM [facility] IMEN DESCRIPTION Left side of the skull. 03/30/2016 3:04 PM [facility] OPERATIVE PROCEDURE Punch biopsy. 03/30/2016 3:04 PM [facility] CLINICAL DIAGNOSIS Neoplasm of uncertain behavior. 03/30/2016 3:04 PM [facility] GROSS DESCRIPTION The specimen is received labeled as Brendon Aldana, alpesh, left side of the scalp. It consists of one fragment of skin with papillary structures, measuring 0.3 x 0.2 x 0.2 cm. The specimen is inked blue on the deep margin. The specimen is bisected and submitted in toto in one cassette A1. X/stoney 03/30/2016 3:04 PM [facility] MICROSCOPIC DESCRIPTION The slides are labeled [id number] and Brendon Aldana. The left side of scalp punch biopsy demonstrates an acanthotic lesion with papillomatosis and hyperkeratosis. There is a band-like lymphocytic infiltrate with associated basal vacuolar l alterations and dyskeratotic keratinocytes. 03/30/2016 3:04 PM [facility] COMMENT Special stain and/or immunohistochemical results are interpreted with controls that demonstrate appropriate staining reactions. Note on use of immunocytochemistry reagents: This test was developed and its performance characteristic determined by [facility], Department of Laboratory Medicine. It has [...] WF, WB and WH are performed by [address], [address]. All other case types are performed by [address] [facility], [address]. 03/30/2016 3:04 PM [facility] Tissue TISSUE SPECIMEN FROM SKIN / Unknown 03/27/2016 1:10 PM CDT 03/28/2016 7:15 AM CDT Ciro Fernandez DO PATHOLOGY/CYTOLOGY O RDERABLES Performing Organization Address [facility] Co de Phone Number [facility]# [id number] [address] [facility] [place] [address] documented in this encounter Visit Diagnoses Diagnosis Neoplasm of uncertain behavior- Primary Neoplasm of uncertain behavior, site unspecified Benign neoplasm of skin of face Benign neoplasm of skin of other and unspecified parts of face documented in this encounter
--- OUTSIDE RECORDS SUMMARY | 2024-08-19 13:58 | XMS_ITS | Encounter Summary ---
Author Organization [facility] Address [address] [place] [address] Care Team Providers Care Nurse Transitional Name Role Phone Unavailable Primary Care Provider Unavailabl e Encounter Details Date Type Department Care Team (Late st Contact Info) Description 09/11/2014 Abstract [facility] Medicine - [facility] [address] [facility] [address] [place] [address] Ciro Fernandez, DO [address] [facility] [address] [place] [address] Social History Tobacco Use Types [...]
--- OUTSIDE RECORDS SUMMARY | 2024-08-19 13:58 | XMS_ITS | Encounter Summary ---
Author Organization [facility] Address [address] [place] [address] Care Team Providers Care Orthodontist Vice President Name Role Phone Unavailable Primary Care Provider Unavailabl e Reason for Visit * Reason Onset Date Comments Medication Refill 12/19/2014 Encounter Details Date Type Department Care Team (Late st Contact Info) Description 12/19/2014 Telephone [facility] Family Medicine - [facility] 150 [address] [facility] [address] [place] [address] Ciro Fernandez, DO [address] [facility] [address] [place] [address] Medication Refill Social History Tobacco [...]
--- OUTSIDE RECORDS SUMMARY | 2024-08-19 13:58 | XMS_ITS | Encounter Summary ---
Author Organization [facility] Address [address] [place] [address] Care Team Providers Care Piano Case Maker Name Role Phone Unavailable Primary Care Provider Unavailabl e Reason for Visit * Reason Onset Date Comments Medication Refill 01/02/2015 Encounter Details Date Type Department Care Team (Late st Contact Info) Description 01/02/2015 Refill [facility] Family Medicine - [facility] 150 [address] [facility] [address] [place] [address] Ciro Fernandez DO [address] [facility] [address] [place] [address] Pure hypercholesterolemia Social History Tobacco [...] Notes * Telephone Encounter - Kay Jesus PRODUCT SAFETY EXPERT - 01/02/2015 8:08 AM CDTFrom: Brendon Aldana To: Ciro Fernandez DO Sent: 01/02/2015 6:55 AM CDT Subject: Medication Renewal Request Original authorizing provider: DO Brendon Tom would like a refill of the following medications: simvastatin (ZOCOR) 40 mg tablet [Ciro Fernandez DO] Preferred pharmacy: [facility] - [place], [place] - [address] [place] [address] Comment: Rx must be written as 90 day and sent to [facility]. Thank you. documented in this encounter Plan of Treatment Not on file documented as of this encounter Visit Diagnoses Diagnosis Pure hypercholesterolemia documented in this encounter
--- OUTSIDE RECORDS SUMMARY | 2024-08-19 13:58 | XMS_ITS | Encounter Summary ---
Author Organization [facility] Address [address] [place] [address] Care Team Providers Care Mangle Tender Name Role Phone Unavailable Primary Care Provider Unavailabl e Reason for Visit * Reason Onset Date Comments Medication Refill 08/21/2015 Encounter Details Date Type Department Care Team (Late st Contact Info) Description 08/21/2015 Refill [facility] Medicine - [facility] 150 [address] [facility] [address] [place] [address] Ciro Fernandez DO [address] [facility] [address] [place] [address] Social History Tobacco Use [...] Kay Jesus CMA - 08/22/2015 12:[address] Fernandez approved. Script sent. ERCIAL ANNOUNCER * Telephone Encounter - Kay Jesus CMA - 08/22/2015 11:38 AM CSTFrom: Brendon Aldana To: Ciro Fernandez DO Sent: 08/21/2015 7:24 PM COMMERCIAL ANNOUNCER Subject: Medication Renewal Request Original authorizing provider: DO Brendon Tom would like a refill of the following medications: ibuprofen (MOTRIN) 800 mg tablet [Ciro Fernandez DO] Preferred pharmacy: [facility] - [address] Comment: Rx must be written as a 90 day Rx and sent to [facility] ERCIAL ANNOUNCER documented in this encounter Plan of Treatment Not on file documented as of this encounter Visit Diagnoses Not on filedocumented in this encounter
--- OUTSIDE RECORDS SUMMARY | 2024-08-19 13:58 | XMS_ITS | Encounter Summary ---
Author Organization [facility] Address [address] [place] [address] Care Team Providers Care Neon Light Installer Name Role Phone Unavailable Primary Care Provider Unavailabl e Reason for Visit * Reason Comments Medication Refill Encounter Details Date Type Department Care Team (Late st Contact Info) Description 02/05/[address] [facility] Medicine - [facility] [address] [facility] [address] [place] [address] Ciro Fernandez, DO [address] [facility] [address] [place] [address] Social History Tobacco Use Types [...]
--- OUTSIDE RECORDS SUMMARY | 2024-08-19 13:58 | XMS_ITS | Encounter Summary ---
Author Organization [facility] Address [address] [place] [address] Care Team Providers Care Network Coordinator Name Role Phone Unavailable Primary Care Provider Unavailabl e Reason for Visit * Reason Comments Sinus Pain congestion, cough x 4days Encounter Details Date Type Department Care Team (Late st Contact Info) Description 07/09/2015 11:45 AM PRODUCTION QUALITY MANAGER Office Visit [facility] Medicine - [facility] 150 [address] [facility] [address] [place] [address] Ciro Fernandez, DO [address] [facility] [address] [place] [address] Acute recurrent frontal sinusitis (Primary [...] Comments Blood Pressure 138/72 07/09/2015 11:38 AM PRODUCTION QUALITY MANAGER Pulse 68 07/09/2015 11:38 AM PRODUCTION QUALITY MANAGER Temperature 37.1 ??C (98.7 ??F) 07/09/2015 11:[address] Respiratory Rate - - Oxygen Saturation - - Inhaled Oxygen Concentration - - Weight 98 kg (216 lb) 07/09/2015 11:38 AM PRODUCTION QUALITY MANAGER Height 177.8 cm (5' 10 ) 07/09/2015 11:38 AM PRODUCTION QUALITY MANAGER Body Mass Index 30.99 07/09/2015 11:38 AM PRODUCTION QUALITY MANAGER documented in this encounter Progress Notes * [...] 10 days. - mometasone (NASONEX) 50 mcg/actuation [place], Non-Aerosol; Administer 2 Sprays in each nostril daily. OTC Meds as discussed Increase Fluids and Rest Discussed Risks, Benefits and Alternatives of the current treatment regimen. Call or return to clinic prn if these symptoms worsen or fail to improve as anticipated. UCTION QUALITY MANAGER documented in this encounter Plan of Treatment Not on file documented as of this encounter Visit Diagnoses Diagnosis Acute recurrent frontal sinusitis- Primary Acute frontal sinusitis documented in this encounter
--- OUTSIDE RECORDS SUMMARY | 2024-08-19 13:58 | XMS_ITS | Encounter Summary ---
Author Organization [facility] Address [address] [place] [address] Care Team Providers Care Agricultural Aircraft Pilot Name Role Phone Unavailable Primary Care Provider Unavailabl e Reason for Visit * Reason Onset Date Comments Results 06/20/2015 Encounter Details Date Type Department Care Team (Late st Contact Info) Description 06/20/2015 Telephone [facility] Family Medicine - [facility] [address] [facility] [address] [place] [address] Ciro Fernandez DO [address] [place] [address] Results Social History Tobacco Use [...] - 06/20/2015 3:26 PM CST PT INFORMED/SB T CHANGER * Telephone Encounter - Jennifer Burnett - 06/20/2015 3:25 PM CST ----- Message from Ciro Fernandez DO sent at 06/17/2015 12:09 PM CHART CHANGER ----- Your laboratory studies have been received, please return to office for a follow up examination. Overall they were in good range, It is just time for your regular appointment. You can follow up with myself or my physician patient support assistant. T CHANGER documented in this encounter Plan of Treatment Not on file documented as of this encounter Visit Diagnoses Not on filedocumented in this encounter
--- OUTSIDE RECORDS SUMMARY | 2024-08-19 13:58 | XMS_ITS | Encounter Summary ---
Author Organization [facility] Address [address] [place] [address] Care Team Providers Care Genetics Physician Name Role Phone Unavailable Primary Care Provider Unavailabl e Reason for Visit * Reason Onset Date Comments Medication Refill 07/21/2014 Encounter Details Date Type Department Care Team (Late st Contact Info) Description 07/21/2014 Refill [facility] Medicine - [facility] 150 [address] [facility] [address] [place] [address] Crio Fernandez DO [address] [facility] [address] [address] [place] [address] Social History Tobacco Use Types [...] Notes * Telephone Encounter - Kay Jesus TRAVEL PHYSICAL THERAPIST - 07/21/2014 9:30 AM CSTFrom: Brendon Aldana To: Ciro Fernandez DO Sent: 07/21/2014 8:09 AM CASTING AND CURING OPERATOR Subject: Medication Renewal Request Original authorizing provider: DO Brendon Tom would like a refill of the following medications: omeprazole (PRILOSEC) 20 mg Capsule, Delayed Release(E.C.) [Ciro Fernandez DO] Preferred pharmacy: [facility] - [place], [place] - [address] Comment: ING AND CURING OPERATOR documented in this encounter Plan of Treatment Not on file documented as of this encounter Visit Diagnoses Not on filedocumented in this encounter
--- OUTSIDE RECORDS SUMMARY | 2024-08-19 13:58 | XMS_ITS | Encounter Summary ---
Author Organization [facility] Address [address] [place] [address] Care Team Providers Care Instructional Resource Teacher Name Role Phone Unavailable Primary Care Provider Unavailabl e Reason for Referral * Eval and Treat (Routine) - Closed Specialty Diagnoses / Procedures Referred By Georgie t Referred To Contact Physical Therapy Diagnoses Strain of iliopsoas muscle, unspecified laterality, subsequent encounter Ciro Fernandez DO [address] [facility] [address] [place] [address] Referral ID Status Reason Start Date Expiration Date V isits Requested Visits Authorized [id number] Closed CRS To Schedule (STL) 12/10/2015 08/08/2016 60 60 Reason for Visit * Reason Comments Back Pain R lower back, R Groi n Pain x 1 week Encounter Details Date Type Department Care Team (Late st Contact Info) Description 12/10/2015 2:00 PM CDT Office Visit [facility] Medicine - [facility] [address] [place] [address] Ciro Fernandez DO [address] [facility] [address] [place] [address] Low back pain without sciatica, [...] DO - 12/10/2015 2:13 PM CDT Subjective: Brendon Aldana is a [...]
--- OUTSIDE RECORDS SUMMARY | 2024-08-19 13:58 | XMS_ITS | Encounter Summary ---
Author Organization [facility] Address [address] [place] [address] Care Team Providers Care Refund Specialist Name Role Phone Unavailable Primary Care Provider Unavailabl e Reason for Visit * Reason Onset Date Comments Results 12/19/2014 labs-Vit D level Encounter Details Date Type Department Care Team (Late st Contact Info) Description 12/19/2014 Telephone [facility] Family Medicine - [facility] 150 107 [facility] [address] [place] [address] Ciro Fernandez, DO [address] [facility] [address] [place] [address] Results (labs-Vit D level) Social [...] of note below sent to pt via [employer]. * Telephone Encounter - Cristela Herman RN [...]
--- OUTSIDE RECORDS SUMMARY | 2024-08-19 13:58 | XMS_ITS | Encounter Summary ---
Author Organization [facility] Address [address] [place] [address] Care Team Providers Care Assistant Operations Manager Name Role Phone Unavailable Primary Care Provider Unavailabl e Reason for Visit * Reason Comments Sinus Pain congestion x 2wks , doxy didn't help Encounter Details Date Type Department Care Team (Late st Contact Info) Description 05/28/2014 10:45 AM CDT Office Visit [facility] Medicine - [facility] 150 [address] [facility] [address] [place] [address] Ciro Fernandez, DO [address] [facility] [address] [place] [address] Acute sinusitis (Primary Dx) Social [...]
--- OUTSIDE RECORDS SUMMARY | 2024-08-19 13:58 | XMS_ITS | Encounter Summary ---
Author Organization [facility] Address [address] [facility] Attn: [place] [address] Care Team Providers Care Steam Shovelman Name Role Phone Unavailable Primary Care Provider Unavailabl e Encounter Details Date Type Department Care Team (Late st Contact Info) Description 06/15/2015 Orders Only Initial Department [address] [facility] ATTN: [place] [address] Provider, Historical Social History Tobacco Use Types [...] Comments LIPID PANEL Routine 06/15/2015 7:18 AM GREIGE GOODS MARKER COMPREHENSIVE METABOLIC PANEL Routine 06/15/2015 7:18 AM GREIGE GOODS MARKER documented in this encounter Results * (ABNORMAL) COMPREHENSIVE METABOLIC PANEL (06/15/2015 7:18 AM GREIGE GOODS MARKER) GLUCOSE 101(H) 65 - 99 mg/dL [facility] Comment:Fasting reference in terval BUN 12 7 - 25 mg/dL [facility] [place] CREATININE 0.85 0.70 - 1.25 mg/dL [facility] Comment: For patients >49 years of age, the reference limit for Creatinine is approximately 13% higher for people identified as -Northern Irish. GFR 93 > OR = 60 mL/min/1 .73m2 [facility] GFR, 107 > OR = 60 mL/min/1 .73m2 [facility] BUN/CREAT RATIO NOT APPLICABLE 6 - 22 (calc) [facility] SODIUM 139 135 - 146 mmol/L [facility] POTASSIUM 4.8 3.5 - 5.3 mmol/L [facility] CHLORIDE 104 98 - 110 mmol/L [facility] CO2 28 19 - 30 mmol/L [facility] CALCIUM 9.4 8.6 - 10.3 mg/dL [facility] TOTAL PROTEIN 7.2 6.1 - 8.1 g/dL [facility] ALBUMIN 4.2 3.6 - 5.1 g/dL [facility] GLOBULIN 3.0 1.9 - 3.7 g/dL (calc) [facility] ALBUMIN/GLOBULIN RATIO 1.4 1.0 - 2.5 (calc) [facility] [employer] [facility] BILIRUBIN TOTAL 0.7 0.2 - 1.2 mg/dL [facility] [employer] [facility] ALKALINE PHOSPHATASE 66 40 - 115 U/L [facility] [employer] [facility] AST 25 10 - 35 U/L [facility] [employer] [facility] ALT 39 9 - 46 U/L [facility] Comment: REPORT COMMENT: FASTING:YES Test Performed at: [facility] [address] [place] [address] ??[id number] MINO ZAMAN DO,MPH 06/15/2015 7:18 AM GREIGE GOODS MARKER Ciro Fernandez DO CHEMISTRY ORDERABLES [facility] [address] [place] [address] * LIPID PANEL (06/15/2015 7:18 AM GREIGE GOODS MARKER) CHOLESTEROL 127 125 - 200 mg/dL [facility] Comment: Test Performed at: [facility] ??[phone] MINO ZAMAN DO,MPH HDL 41 > OR = 40 mg/dL [facility] [employer] [facility] TRIGLYCERIDE 90 <150 mg/dL [facility] LDL CALCULATED 68 <130 mg/dL (calc) [facility] [facility] Comment: Desirable range <100 mg/dL for patients with CHD or diabetes and <70 mg/dL for diabetic patients with known heart disease. CHOL/HDL RATIO 3.1 < OR = 5.0 (calc) [facility] TOTAL NON-HDL CHOL(LDL+VLDL) 86 mg/dL (calc) [facility] Comment: Target for non-HDL cholesterol is 30 mg/dL higher than LDL cholesterol target. 06/15/2015 7:18 AM GREIGE GOODS MARKER Ciro Fernandez DO CHEMISTRY ORDERABLES [facility] [address] [place] [address] documented in this encounter Visit Diagnoses Not on filedocumented in this encounter
--- OUTSIDE RECORDS SUMMARY | 2024-08-19 13:58 | XMS_ITS | Encounter Summary ---
Author Organization [facility] Address [address] [place] [address] Care Team Providers Care Oracle Ebs Consultant Name Role Phone Unavailable Primary Care Provider Unavailabl e Reason for Visit * Reason Onset Date Comments Medication Refill 05/10/2014 Encounter Details Date Type Department Care Team (Late st Contact Info) Description 05/10/2014 Refill [facility] Family Medicine - [facility] [address] [facility] [address] [place] [address] Ciro Fernandez, DO [address] [facility] [address] [place] [address] Social History Tobacco Use Types [...] SURE [facility] SENT TO [facility]? documented in this encounter Plan of Treatment Not on file documented as of this encounter Visit Diagnoses Not on filedocumented in this encounter
--- OUTSIDE RECORDS SUMMARY | 2024-08-19 13:58 | XMS_ITS | Encounter Summary ---
Author Organization [facility] Address [address] [place] [address] Care Team Providers Care Supervisor Powdered Metal Name Role Phone Unavailable Primary Care Provider Unavailabl e Reason for Visit * Reason Onset Date Comments Medication Refill 12/10/2015 Encounter Details Date Type Department Care Team (Late st Contact Info) Description 12/11/2015 Refill [facility] Family Medicine - [facility] [address] [facility] [address] [place] [address] Ciro Fernandez DO [address] [facility] [address] [place] [address] Social History Tobacco Use Types [...] mg tablet [Ciro Fernandez DO] Preferred pharmacy: [facility] - [address] Comment: Rx must be written as a 90 Rx and sent to [facility]. Thank you. documented in this encounter Plan of Treatment Not on file documented as of this encounter Visit Diagnoses Not on filedocumented in this encounter
--- OUTSIDE RECORDS SUMMARY | 2024-08-19 13:58 | XMS_ITS | Encounter Summary ---
Author Organization [facility] Address [address] [place] [address] Care Team Providers Care Personnel Placement Specialist Name Role Phone Unavailable Primary Care Provider Unavailabl e Reason for Visit * Reason Comments Medication Refill Encounter Details Date Type Department Care Team (Late st Contact Info) Description 10/01/2014 Refill [facility] Medicine - [facility] [address] [facility] [address] [place] [address] Ciro Fernandez, DO [address] [facility] [address] [place] [address] Social History Tobacco Use Types [...]
--- OUTSIDE RECORDS SUMMARY | 2024-08-19 13:58 | XMS_ITS | Encounter Summary ---
Author Organization [facility] Address [address] [place] [address] Care Team Providers Care Sociology Instructor Name Role Phone Unavailable Primary Care Provider Unavailabl e Reason for Visit * Reason Onset Date Comments Medication Refill 06/26/2014 Encounter Details Date Type Department Care Team (Late st Contact Info) Description 06/26/2014 Refill [facility] Family Medicine - [facility] 150 [address] [facility] [address] [place] [address] Ciro Fernandez DO [address] [facility] [address] [place] [address] Pure hypercholesterolemia (Primary Dx) Social [...] Notes * Telephone Encounter - Kay Jesus, [facility] - 06/26/2014 9:23 AM CSTFrom: Brendon Aldana To: Ciro Fernandez DO Sent: 06/26/2014 3:43 AM LAP GRINDER Subject: Medication Renewal Request Original authorizing provider: DO Brendon Tom would like a refill of the following medications: ibuprofen (MOTRIN) 800 mg tablet [Ciro Fernandez DO] simvastatin (ZOCOR) 40 mg tablet [Ciro Fernandez DO] Preferred pharmacy: [facility] - [address] Comment: Rx must be written as a 90 day rx and sent to express [facility]. Thank you. GRINDER documented in this encounter Plan of Treatment Not on file documented as of this encounter Visit Diagnoses Diagnosis Pure hypercholesterolemia- Primary documented in this encounter
--- OUTSIDE RECORDS SUMMARY | 2024-08-19 13:58 | XMS_ITS | Encounter Summary ---
Author Organization [facility] Address [address] [place] [address] Care Team Providers Care Santa'S Helper Name Role Phone Unavailable Primary Care Provider Unavailabl e Reason for Visit * Reason Comments Medication Refill Encounter Details Date Type Department Care Team (Late st Contact Info) Description 02/05/2016 Refill [facility] Medicine - [facility] 150 107 [facility] [address] [place] [address] Ciro Fernandez, DO 107 [facility] [address] [place] [address] Social History Tobacco Use Types [...] Telephone Encounter - Kay Jesus CMA - 02/06/2016 8:53 AM CDT Script faxed. documented in this encounter Plan of Treatment Not on file documented as of this encounter Visit Diagnoses Not on filedocumented in this encounter
--- OUTSIDE RECORDS SUMMARY | 2024-08-19 13:58 | XMS_ITS | Encounter Summary ---
Author Organization [facility] Address [address] [place] [address] Care Team Providers Care Lead Solutions Architect Name Role Phone Unavailable Primary Care Provider Unavailabl e Reason for Visit * Reason Comments Lesions on L side of head x 3 days. Encounter Details Date Type Department Care Team (Late st Contact Info) Description 03/09/2016 12:45 PM CDT Office Visit [facility] Medicine - [facility] [address] [facility] [address] [place] [address] Ciro Fernandez, DO 107 [facility] [address] [place] [address] Neoplasm of uncertain behavior (Primary [...]
--- OUTSIDE RECORDS SUMMARY | 2024-08-19 13:58 | XMS_ITS | Encounter Summary ---
Author Organization [facility] Address [address] [place] [address] Care Team Providers Care Clerical Adjuster Name Role Phone Unavailable Primary Care Provider Unavailabl e Reason for Visit * Reason Onset Date Comments Insurance Issues 08/23/2014 PA for [employer] Encounter Details Date Type Department Care Team (Late st Contact Info) Description 08/23/2014 Telephone [facility] Family Medicine - [facility] 150 107 [facility] [address] [place] [address] Ciro Fernandez, DO 107 [facility] [address] [place] [address] Insurance Issues (MARTIN Schmitt) Social [...] 08/23/2014 1:26 PM CST Per fax from [facility] - [phone], Cialis 20 mg daily prn #6 needs prior authorization, ID# [id number], call [phone]. I called and spoke with Norah at [facility], med APPROVED 08/23/14 thru 08/22/2017, . [facility] notified of approval. ER IN CHARGE documented in this encounter Plan of Treatment Not on file documented as of this encounter Visit Diagnoses Not on filedocumented in this encounter
--- OUTSIDE RECORDS SUMMARY | 2024-08-19 13:58 | XMS_ITS | Encounter Summary ---
Author Organization [facility] Address [address] [place] [address] Care Team Providers Care Solutions Architect Name Role Phone Unavailable Primary Care Provider Unavailabl e Reason for Visit * Reason Comments Hypertension chol,ifg,follow up l abs Encounter Details Date Type Department Care Team (Late st Contact Info) Description 07/16/2015 9:45 AM WATER FILTERER Office Visit [facility] Medicine - [facility] 150 [address] [facility] [address] [place] [address] Ciro Fernandez, DO 107 [facility] [address] [place] [address] Essential hypertension, benign (Primary Dx); [...] Comments Blood Pressure 132/70 07/16/2015 9:19 AM WATER FILTERER Pulse 72 07/16/2015 9:19 AM WATER FILTERER Temperature 37.2 ??C (98.9 ??F) 07/16/2015 9:19 AM CS T Respiratory Rate - - Oxygen Saturation - - Inhaled Oxygen Concentration - - Weight 94.3 kg (208 lb) 07/16/2015 9:19 AM WATER FILTERER Height 177.8 cm (5' 10 ) 07/16/2015 9:19 AM WATER FILTERER Body Mass Index 29.84 07/16/2015 9:19 AM WATER FILTERER documented in this encounter Progress Notes * [...] current treatment regimen. F/u in 6 months R FILTERER documented in this encounter Plan of Treatment [...]
--- OUTSIDE RECORDS SUMMARY | 2024-08-19 13:58 | XMS_ITS | Encounter Summary ---
Author Organization [facility] Address [address] [place] [address] Care Team Providers Care Element Setter Name Role Phone Unavailable Primary Care Provider Unavailabl e Reason for Visit * Reason Onset Date Comments Medication Refill 06/22/2015 Encounter Details Date Type Department Care Team (Late st Contact Info) Description 06/22/2015 Refill [facility] Family Medicine - [facility] 150 [address] [facility] [address] [place] [address] Ciro Fernandez DO [address] [facility] [place] [address] Pure hypercholesterolemia Social History Tobacco [...] Notes * Telephone Encounter - Kay Jesus, [facility] - 06/23/2015 9:10 PM CSTFrom: Brendon Aldana To: Ciro Fernandez DO Sent: 06/22/2015 9:47 AM ECONOMIC FORECASTER Subject: Medication Renewal Request Original authorizing provider: DO Brendon Tom would like a refill of the following medications: simvastatin (ZOCOR) 40 mg tablet [Ciro Fernandez DO] Preferred pharmacy: [facility] - [place], [place] - [address] [place] [address] Comment: Rx must be written as 90 day Rx and sent to express [facility] OMIC FORECASTER documented in this encounter Plan of Treatment Not on file documented as of this encounter Visit Diagnoses Diagnosis Pure hypercholesterolemia documented in this encounter
--- OUTSIDE RECORDS SUMMARY | 2024-08-19 13:58 | XMS_ITS | Encounter Summary ---
Author Organization [facility] Address [address] [place] [address] Care Team Providers Care Engine Designer Name Role Phone Unavailable Primary Care Provider Unavailabl e Reason for Visit * Reason Onset Date Comments Medication Refill 10/26/2014 Encounter Details Date Type Department Care Team (Late st Contact Info) Description 10/26/2014 Refill [facility] Medicine - [facility] [address] [facility] [address] [place] [address] Ciro Fernandez, DO 107 [facility] [address] [place] [address] Social History Tobacco Use Types [...]
--- OUTSIDE RECORDS SUMMARY | 2024-08-19 13:58 | XMS_ITS | Encounter Summary ---
Author Organization [facility] Address [address] [place] [address] Care Team Providers Care Cupola Operator Insulation Name Role Phone Unavailable Primary Care Provider Unavailabl e Reason for Visit * Reason Onset Date Comments Medication Refill 04/07/2015 Encounter Details Date Type Department Care Team (Late st Contact Info) Description 04/07/2015 Refill [facility] Family Medicine - [facility] 150 107 [facility] [address] [place] [address] Ciro Fernandez DO [address] [facility] [address] [place] [address] Social History Tobacco Use Types [...] Notes * Telephone Encounter - Kay Jesus WATER SOFTENER SERVICER AND INSTALLER - 04/08/2015 2:32 PM CDTFrom: Brendon Aldana To: Ciro Fernandez DO Sent: 04/07/2015 8:01 PM CDT Subject: Medication Renewal Request Original authorizing provider: DO Brendon Tom would like a refill of the following medications: losartan (COZAAR) 50 mg tablet [Ciro Fernandez DO] ibuprofen (MOTRIN) 800 mg tablet [Ciro Fernandez DO] Preferred pharmacy: [facility] - [address] Comment: These rx must be written for 90 days and sent to express [facility]. Thank you. documented in this encounter Plan of Treatment Not on file documented as of this encounter Visit Diagnoses Not on filedocumented in this encounter
--- OUTSIDE RECORDS SUMMARY | 2024-08-19 13:58 | XMS_ITS | Encounter Summary ---
Author Organization [facility] Address [address] [place] [address] Care Team Providers Care Senior Ux Designer Name Role Phone Unavailable Primary Care Provider Unavailabl e Reason for Visit * Reason Comments Medication Refill Encounter Details Date Type Department Care Team (Late st Contact Info) Description 07/06/2015 Refill [facility] - [facility] 150 107 [facility] [address] [place] [address] Ciro Fernandez, DO 107 [facility] [address] [place] [address] Social History Tobacco Use Types [...] Kay Jesus CMA - 07/08/2015 10:45 AM BRIDAL STYLIST SALES CONSULTANT Script faxed. AL STYLIST SALES CONSULTANT documented in this encounter Plan of Treatment Not on file documented as of this encounter Visit Diagnoses Not on filedocumented in this encounter
--- OUTSIDE RECORDS SUMMARY | 2024-08-19 13:58 | XMS_ITS | Encounter Summary ---
Author Organization [facility] Address [address] [place] [address] Care Team Providers Care Public Relations Professional Name Role Phone Unavailable Primary Care Provider Unavailabl e Reason for Visit * Reason Onset Date Comments Medication Refill 08/19/2014 Encounter Details Date Type Department Care Team (Late st Contact Info) Description 08/19/2014 Refill [facility] - [facility] 150 [address] [facility] [address] [place] [address] Ciro Fernandez DO 107 [facility] [address] [place] [address] Social History Tobacco Use Types [...] Ciro Fernandez DO Sent: 08/19/2014 3:52 PM LINE CLEANER Subject: Medication Renewal Request Original authorizing provider: DO Brendon Tom would like a refill of the following medications: tadalafil (CIALIS) 20 mg Oral tablet [Ciro Fernandez DO] Preferred pharmacy: [facility] [address] [place] [address] [facility] Comment: CLEANER documented in this encounter Plan of Treatment Not on file documented as of this encounter Visit Diagnoses Not on filedocumented in this encounter
--- OUTSIDE RECORDS SUMMARY | 2024-08-19 13:58 | XMS_ITS | Encounter Summary ---
Author Organization [facility] Address [address] [place] [address] Care Team Providers Care Director Medical Economics Name Role Phone Unavailable Primary Care Provider Unavailabl e Reason for Visit * Reason Comments Medication Refill Encounter Details Date Type Department Care Team (Late st Contact Info) Description 04/30/2014 Refill [facility] Medicine - [facility] [address] [facility] [address] [place] [address] Ciro Fernandez, DO [address] [facility] [address] [place] [address] Social History Tobacco Use Types [...]
--- OUTSIDE RECORDS SUMMARY | 2024-08-19 13:59 | XMS_ITS | Encounter Summary ---
Author Organization [facility] Address [address] [place] [address] Care Team Providers Care Gymnastics Coach Or Instructor Name Role Phone Unavailable Primary Care Provider Unavailabl e Reason for Visit * Reason Onset Date Comments Results 01/10/2014 Encounter Details Date Type Department Care Team (Late st Contact Info) Description 01/10/2014 Telephone [facility] Medicine - [facility] 150 107 [facility] [address] [place] [address] Ciro Fernandez, DO 107 [facility] [address] [place] [address] Results Social History Tobacco Use [...]
--- OUTSIDE RECORDS SUMMARY | 2024-08-19 13:59 | XMS_ITS | Encounter Summary ---
Author Organization [facility] Address [address] [place] [address] Care Team Providers Care Paper Sample Clerk Name Role Phone Unavailable Primary Care Provider Unavailabl e Reason for Visit * Reason Comments Medication Refill Encounter Details Date Type Department Care Team (Late st Contact Info) Description 01/03/2013 Refill [facility] Medicine - [facility] [address] 107 [facility] [address] [place] [address] Ciro Fernandez, DO [address] [facility] [address] [place] [address] Social History Tobacco Use Types [...]
--- OUTSIDE RECORDS SUMMARY | 2024-08-19 13:59 | XMS_ITS | Encounter Summary ---
Author Organization [facility] Address [address] [place] [address] Care Team Providers Care Ink Printer Name Role Phone Unavailable Primary Care Provider Unavailabl e Reason for Visit * Reason Onset Date Comments Medication Refill 12/09/2012 Encounter Details Date Type Department Care Team (Late st Contact Info) Description 12/09/2012 Refill [facility] Family Medicine - [facility] [address] 107 [facility] [address] [place] [address] Ciro Fernandez, DO 107 [facility] [address] [place] [address] Social History Tobacco Use Types [...]
--- OUTSIDE RECORDS SUMMARY | 2024-08-19 13:59 | XMS_ITS | Encounter Summary ---
Author Organization [facility] Address [address] [place] [address] Care Team Providers Care Coupon And Bond Collection Clerk Name Role Phone Unavailable Primary Care Provider Unavailabl e Reason for Visit * Auth/Cert - Closed Specialty Diagnoses / Procedures Referred By Contac t Referred To Contact Gastroenterology Diagnoses unknown Procedures COLONOSCOPY [facility] Lab [address] [place] [address] Referral ID Status Reason Start Date Expiration Date Visits Re quested Visits Authorized [id number] Closed 1 1 Encounter Details Date Type Department Care Team (Late st Contact Info) Description 01/12/2014 9:40 AM CDT Anesthesia Event [facility] GI Lab S [facility] [address] [place] [address] Landry Medrano MD [address] [place] [address] Anesthesia Record Procedure Summary Procedure [...] chest rise 01/12/14 0937 by Kaye Paul, CRISIS INTERVENTION COUNSELOR 01/12/14 1027 by Lizabeth Paige RN documented [...] discussed with Patient. Plan discussed with Nurse Community Recreation Programmer. Pre-Anesthesia Evaluation - Long Form 01/12/2014 8:53 AM Name: Brendon Aldana Age: 63 y.o. Sex: male CSN: [id number] Procedure: Procedure(s): COLONOSCOPY Surgeons/Assistants: Surgeon(s) and Role: [...] Tab 1 ??? fluticasone (FLONASE) 50 mcg/spray [place], Suspension Administer 2 Sprays in each nostril [...] other eczema, due to unspecified cause ??? MI'KMAQ (hard of hearing) Past Surgical History Procedure [...]
--- OUTSIDE RECORDS SUMMARY | 2024-08-19 13:59 | XMS_ITS | Encounter Summary ---
Author Organization [facility] Address [address] [place] [address] Care Team Providers Care Pole Classifier Name Role Phone Unavailable Primary Care Provider Unavailabl e Encounter Details Date Type Department Care Team (Late st Contact Info) Description 01/27/2013 Orders Only [facility] Urgent [facility] [address] 107 [facility] , [address] [place] [address] Ciro Fernandez, DO 107 [facility] [address] [place] [address] Social History Tobacco Use Types [...]
--- OUTSIDE RECORDS SUMMARY | 2024-08-19 13:59 | XMS_ITS | Encounter Summary ---
Author Organization [facility] Address [address] [place] [address] Care Team Providers Care Garland Machine Operator Name Role Phone Unavailable Primary Care Provider Unavailabl e Reason for Referral * Outpatient Services (Routine) - Closed Specialty Diagnoses / Procedures Referred By Contac t Referred To Contact Diagnoses Abdominal pain, generalized Procedures XR ABDOMEN 1 VW Ciro Fernandez DO 107 [facility] [address] [place] [address] Referral ID Status Reason Start Date Expiration Date Visits Re quested Visits Authorized [id number] Closed 01/27/2013 02/27/2014 1 1 Reason for Visit * Reason Comments Rib Pain left x 3 days, injur ed mowing grass Encounter Details Date Type Department Care Team (Late st Contact Info) Description 01/27/2013 3:15 PM CDT Office Visit [facility] Medicine - [facility] [address] [place] [address] Ciro Fernandez DO [address] [place] [address] Rib pain (Primary Dx); Abdominal [...] reaching for a stick while on a crayon molding machine operator. without radiation. There is no numbness/paresthesia. No [...] IMPRESSION: ??An abundance of stool. Dictated at [facility] Narrative 01/27/2013 4:01 PM CDT ABDOMEN, Single [...] IMPRESSION: An abundance of stool. Dictated at [facility] Ciro Fernandez DO DIAGNOSTIC IMAGING O RDERABLES * XR RIBS UNILATERAL LEFT W PA CHEST (01/27/2013 3:33 PM CDT) Anatomical Region Laterality Modality Chest Computed Radiogr aphy 01/27/2013 3:18 PM CDT Impressions 01/30/2013 7:42 AM CDT IMPRESSION: ??Negative. Dictated from [facility] Narrative 01/30/2013 7:42 AM [...] is identified. IMPRESSION IMPRESSION: Negative. Dictated from [facility] Ciro Fernandez DO DIAGNOSTIC IMAGING O RDERABLES documented in this encounter Visit Diagnoses Diagnosis Rib pain- Primary Chest pain, unspecified Abdominal pain, generalized Rib pain Chest pain, unspecified Abdominal pain, generalized documented in this encounter
--- OUTSIDE RECORDS SUMMARY | 2024-08-19 13:59 | XMS_ITS | Encounter Summary ---
Author Organization [facility] Address [address] [place] [address] Care Team Providers Care Barbering Instructor Name Role Phone Unavailable Primary Care Provider Unavailabl e Reason for Visit * Reason Onset Date Comments Medication Refill 06/16/2013 Encounter Details Date Type Department Care Team (Late st Contact Info) Description 06/16/2013 Refill [facility] Family Medicine - [facility] [address] [facility] [address] [place] [address] Ciro Fernandez DO [address] [facility] [address] [place] [address] Social History Tobacco Use Types [...] Ciro Fernandez DO Sent: 06/16/2013 6:14 AM DANDY TENDER Subject: Medication Renewal Request Original authorizing provider: DO Brendon Tom would like a refill of the following medications: ibuprofen (MOTRIN) 800 mg Oral tablet [Ciro Fernandez DO] Preferred pharmacy: [facility] - [address] Comment: Y TENDER documented in this encounter Plan of Treatment Not on file documented as of this encounter Visit Diagnoses Not on filedocumented in this encounter
--- OUTSIDE RECORDS SUMMARY | 2024-08-19 13:59 | XMS_ITS | Encounter Summary ---
Author Organization [facility] Address [address] [place] [address] Care Team Providers Care Centerless Grinder Name Role Phone Unavailable Primary Care Provider Unavailabl e Reason for Visit * Reason Onset Date Comments Medication Refill 04/23/2014 Encounter Details Date Type Department Care Team (Late st Contact Info) Description 04/23/2014 Refill [facility] Family Medicine - [facility] 150 107 [facility] [address] [place] [address] Ciro Fernandez DO [address] [facility] [address] [place] [address] Social History Tobacco Use Types [...] Oral tablet [Ciro Fernandez DO] Preferred pharmacy: [facility] - [place], [place] - [address] [place] [address] Comment: This rx must be written as a 90day rx and sent to [facility]. Thank you. documented in this encounter Plan of Treatment Not on file documented as of this encounter Visit Diagnoses Not on filedocumented in this encounter
--- OUTSIDE RECORDS SUMMARY | 2024-08-19 13:59 | XMS_ITS | Encounter Summary ---
Author Organization [facility] Address [address] [place] [address] Care Team Providers Care Strategic Account Manager Name Role Phone Unavailable Primary Care Provider Unavailabl e Reason for Visit * Reason Onset Date Comments Cough 12/28/2013 Encounter Details Date Type Department Care Team (Late st Contact Info) Description 12/28/2013 Telephone [facility] Medicine [facility] [address] [facility] [address] [place] [address] Ciro Fernandez, DO [address] [facility] [address] [place] [address] Cough Social History Tobacco Use [...]
--- OUTSIDE RECORDS SUMMARY | 2024-08-19 13:59 | XMS_ITS | Encounter Summary ---
Author Organization [facility] Address [address] [place] [address] Care Team Providers Care Nuclear Fuels Research Engineer Name Role Phone Unavailable Primary Care Provider Unavailabl e Reason for Visit * Reason Onset Date Comments Medication Refill 08/25/2013 Encounter Details Date Type Department Care Team (Late st Contact Info) Description 08/25/2013 Refill [facility] Family Medicine - [facility] [address] 107 [facility] [address] [place] [address] Ciro Fernandez, DO 107 [facility] [address] [place] [address] Allergic rhinitis (Primary Dx) Social [...] For him Claudette Palacio in [facility] MEXICAN FOOD MAKER documented in this encounter Plan of Treatment Not on file documented as of this encounter Visit Diagnoses Diagnosis Allergic rhinitis- Primary Allergic rhinitis, cause unspecified documented in this encounter
--- OUTSIDE RECORDS SUMMARY | 2024-08-19 13:59 | XMS_ITS | Encounter Summary ---
Author Organization [facility] Address [address] [place] [address] Care Team Providers Care Regional Marketing Director Name Role Phone Unavailable Primary Care Provider Unavailabl e Reason for Visit * Reason Comments Medication Refill Encounter Details Date Type Department Care Team (Late st Contact Info) Description 09/05/2013 Refill [facility] Medicine - [facility] [address] [facility] [address] [place] [address] Ciro Fernandez, DO [address] [facility] [address] [place] [address] Social History Tobacco Use Types [...]
--- OUTSIDE RECORDS SUMMARY | 2024-08-19 13:59 | XMS_ITS | Encounter Summary ---
Author Organization [facility] Address [address] [place] [address] Care Team Providers Care Diathermy Equipment Repairer Name Role Phone Unavailable Primary Care Provider Unavailabl e Reason for Referral * Outpatient Services (Routine) - Closed Specialty Diagnoses / Procedures Referred By Contac t Referred To Contact Diagnoses Abdominal pain, generalized Procedures XR ABDOMEN 1 VW Ciro Fernandez DO [address] [place] [address] Referral ID Status Reason Start Date Expiration Date Visits Re quested Visits Authorized [id number] Closed 01/27/2013 02/27/2014 1 1 Reason for Visit * Outpatient Services (Routine) - Closed Specialty Diagnoses / Procedures Referred By Contac t Referred To Contact Diagnoses Abdominal pain, generalized Procedures XR ABDOMEN 1 VW Ciro Fernandez DO [address] [place] [address] Referral ID Status Reason Start Date Expiration Date Visits Re quested Visits Authorized [id number] Closed 01/27/2013 02/27/2014 1 1 Encounter Details Date Type Department Care Team (Latest Contact Info) Description 01/27/2013 3:14 PM CDT - 01/27/2013 11:59 PM CDT Hospital Encounter [facility] Imaging [place] [address] Ciro Fernandez DO [address] [place] [address] Discharge Disposition: Home or Self Care Social [...] IMPRESSION: ??An abundance of stool. Dictated at [facility] Narrative 01/27/2013 4:01 PM CDT ABDOMEN, Single [...] IMPRESSION: An abundance of stool. Dictated at [facility] in [place] Ciro Fernandez DO DIAGNOSTIC IMAGING O RDERABLES documented in this encounter Visit Diagnoses Diagnosis Abdominal pain, generalized documented in this encounter
--- OUTSIDE RECORDS SUMMARY | 2024-08-19 13:59 | XMS_ITS | Encounter Summary ---
Author Organization [facility] Address [address] [place] [address] Care Team Providers Care Planer Setup Operator Name Role Phone Unavailable Primary Care Provider Unavailabl e Reason for Visit * Auth/Cert - Closed Specialty Diagnoses / Procedures Referred By Contac t Referred To Contact Gastroenterology Diagnoses unknown Procedures COLONOSCOPY [facility] [address] [place] [address] Referral ID Status Reason Start Date Expiration Date Visits Re quested Visits Authorized [id number] Closed 1 1 Encounter Details Date Type Department Care Team (Late st Contact Info) Description 01/12/2014 7:38 AM CDT - 01/12/2014 10:39 AM CDT Hospital Encounter [facility] GI Lab S [facility] [address] [place] [address] Gatito Magallanes, [address] [facility] [address] [place] [address] Discharge Disposition: Home or Self [...] the plan of care. Patient or Responsible Republican Signature Date/Time RN Signature Date/Time documented in [...] 1 12/25/2013 05/09/2014 fluticasone (FLONASE) 50 mcg/spray [place], SuspensionIndications:A llergic rhinitis Administer 2 Sprays in [...] other eczema, due to unspecified cause ??? [place] (hard of hearing) Past Surgical History Procedure [...] Tab 1 ??? fluticasone (FLONASE) 50 mcg/spray [place], Suspension Administer 2 Sprays in each nostril [...] 01/12/2014 10:19 AM CDTAssociated Order(s): GI REPORT [facility] Endoscopy Patient Name: Brendon Aldana Procedure Date [...] electronically. Number of Addenda: 0 [address] [facility]; [place] [address] documented in this encounter OR Notes * [...] PATHOLOGY (01/12/2014 12:21 PM CDT) SURGICAL PATHOLOGY ?[facility] ?[address] ? [place], [place] ??[address] ? Patient: ??BRENDON ALDANA ? : ??1950 ? Procedure Date: ??01/12/2014 ? Accession Date: ??01/12/2014 ? Case No: ??[id number] ? Ordering Dr: ??GATITO MAGALLANES ? Case type SW is performed by [facility], [address] [place] [address], ? [place], [place] ??[address]; all other case types are performed by [facility] ? [facility], [address] [facility], [place], [place] ??[address] ?SURGICAL PATHOLOGY & NON-GYNECOLOGIC CYTOPATHOLOGY REPORT ? [...] ? Microscopic: ? The sections are labeled [id number], Brendon Aldana. ? The biopsy from the transverse colon displays two pieces of tubular ? adenoma. ? Special stain and/or immunohistochemical results are interpreted with ? controls that demonstrate appropriate staining reactions. Note on use of ? immunocytochemistry reagents: This test was developed and its performance ? characteristic determined by [facility], Department of ? Laboratory Medicine. ??It has [...] FOR EDVIN FLYNN M.D.- 01/15/14 02:39 pm [facility] 01/12/2014 12:2 1 PM CDT Gatito Magallanes DO PATHOLOGY/CYTOLOGY ORDERABLES Performing Organization Address [facility]/State/[facility] Co de Phone Number [facility] CLIA# [id number] [address] [facility] [place] [place] [address] * GI REPORT (01/12/2014 10:20 AM CDT) Narrative Transcriptions Gatito Magallanes DO - 01/12/2014 10:19 AM CDT [facility] Endoscopy Patient Name: Brendon Aldana Procedure Date [...] of Addenda: [address]; [place] [address] Gatito Magallanes DO GI PROCEDURE ORDERA BLES [...]
--- OUTSIDE RECORDS SUMMARY | 2024-08-19 13:59 | XMS_ITS | Encounter Summary ---
Author Organization [facility] Address [address] [place] [address] Care Team Providers Care Volunteer Services Director Name Role Phone Unavailable Primary Care Provider Unavailabl e Reason for Visit * Reason Onset Date Comments Other 08/23/2013 Encounter Details Date Type Department Care Team (Late st Contact Info) Description 08/23/2013 Telephone [facility] Family Medicine - [facility] [address] [facility] [address] [place] [address] Ciro Fernandez, DO [address] [facility] [address] [place] [address] Other Social History Tobacco Use [...] Spoke with patient this will be ok TY SHERIFF LIEUTENANT * Telephone Encounter - Marine Barrett - 08/23/2013 10:26 AM CST Patient was due for labs in jul and he wants to know if he can wait till Sep because his is due for labs then and then they can go together TY SHERIFF LIEUTENANT documented in this encounter Plan of Treatment Not on file documented as of this encounter Visit Diagnoses Not on filedocumented in this encounter
--- OUTSIDE RECORDS SUMMARY | 2024-08-19 13:59 | XMS_ITS | Encounter Summary ---
Author Organization [facility] Address [address] [place] [address] Care Team Providers Care Web Assistant Name Role Phone Unavailable Primary Care Provider Unavailabl e Reason for Visit * Reason Onset Date Comments Medication Refill 09/05/2013 Encounter Details Date Type Department Care Team (Late st Contact Info) Description 09/05/2013 Refill [facility] Medicine - [facility] [address] [facility] [address] [place] [address] Ciro Fernandez DO [address] [facility] [address] [place] [address] Esophageal reflux (Primary Dx) Social [...] Ciro Fernandez DO Sent: 09/05/2013 6:44 PM ROTARY ROCK DRILLING MACHINE OPERATOR Subject: Medication Renewal Request Original authorizing provider: DO Brendon oTm would like a refill of the following medications: omeprazole (PRILOSEC) 20 mg Capsule, Delayed Release(E.C.) [Ciro Fernandez DO] Preferred pharmacy: [facility] - [address] Comment: [facility] shows no record of having received the new prescription that you sent on . Could you please resend the prescription to [facility] written for 90 days? Thank you, Brendon Aldana RY ROCK DRILLING MACHINE OPERATOR documented in this encounter Plan of Treatment Not on file documented as of this encounter Visit Diagnoses Diagnosis Esophageal reflux- Primary documented in this encounter
--- OUTSIDE RECORDS SUMMARY | 2024-08-19 13:59 | XMS_ITS | Encounter Summary ---
Author Organization [facility] Address [address] [place] [address] Care Team Providers Care Geographic Area Intelligence Officer Name Role Phone Unavailable Primary Care Provider Unavailabl e Reason for Visit * Reason Onset Date Comments Erroneous encounter-disregard 08/25/2013 Encounter Details Date Type Department Care Team (Late st Contact Info) Description 08/25/2013 Refill [facility] Family Medicine - [facility] [address] [facility] [address] [place] [address] Ciro Fernandez, DO [address] [facility] [address] [place] [address] Social History Tobacco Use Types [...]
--- OUTSIDE RECORDS SUMMARY | 2024-08-19 13:59 | XMS_ITS | Encounter Summary ---
Author Organization [facility] Address [address] [place] [address] Care Team Providers Care Printer Operator Name Role Phone Unavailable Primary Care Provider Unavailabl e Reason for Visit * Reason Comments Medication Refill Encounter Details Date Type Department Care Team (Late st Contact Info) Description 11/01/2013 Refill [facility] Family Medicine - [facility] [address] [facility] [address] [place] [address] Ciro Fernandez, DO [address] [facility] [address] [place] [address] Social History Tobacco Use Types [...]
--- OUTSIDE RECORDS SUMMARY | 2024-08-19 13:59 | XMS_ITS | Encounter Summary ---
Author Organization [facility] Address [address] [place] [address] Care Team Providers Care Assistant Banquet Manager Name Role Phone Unavailable Primary Care Provider Unavailabl e Reason for Visit * Reason Onset Date Comments Results 01/25/2014 Encounter Details Date Type Department Care Team (Late st Contact Info) Description 01/25/2014 Telephone [facility] Gastroenterology [place] A [address] [facility] [address] [place] [address] Modesta Wise DO [address] [facility] [address] [place] [address] Results Social History Tobacco Use [...] 2014 9:08 AM ------ Message from: JANNA FAJARDO Created: WedJan 23, 2014 8:08 AM ----- Message ----- From: Modesta Wise DO Sent: 01/22/2014 5:10 PM To: Janna Fajardo Surveillance colonoscopy in 5 years. ------ documented in this encounter Plan of Treatment Not on file documented as of this encounter Visit Diagnoses Not on filedocumented in this encounter
--- OUTSIDE RECORDS SUMMARY | 2024-08-19 13:59 | XMS_ITS | Encounter Summary ---
Author Organization [facility] Address [address] [place] [address] Care Team Providers Care Street Car Mechanic Name Role Phone Unavailable Primary Care Provider Unavailabl e Reason for Visit * Auth/Cert - Closed Specialty Diagnoses / Procedures Referred By Contac t Referred To Contact Gastroenterology Diagnoses unknown Procedures COLONOSCOPY [facility] [address] [place] [address] Referral ID Status Reason Start Date Expiration Date Visits Re quested Visits Authorized [id number] Closed 1 1 Encounter Details Date Type Department Care Team (Late st Contact Info) Description 01/12/2014 9:00 AM CDT - 01/12/2014 9:40 AM CDT [facility] S [facility] [address] [place] [address] Gatito Magallanes DO [address] [facility] [address] [place] [address] COLONOSCOPY Surgery Details Date/Time Status [...] 1 12/25/2013 05/09/2014 fluticasone (FLONASE) 50 mcg/spray [place], SuspensionIndications:A llergic rhinitis Administer 2 Sprays in [...] other eczema, due to unspecified cause ??? [place] (hard of hearing) Past Surgical History Procedure [...] Tab 1 ??? fluticasone (FLONASE) 50 mcg/spray [place], Suspension Administer 2 Sprays in each nostril [...] 01/12/2014 10:19 AM CDTAssociated Order(s): GI REPORT [facility] Endoscopy Patient Name: Brendon Aldana Procedure Date [...] of Addenda: 0 [address] ; [place] [address] documented in this encounter OR Notes * [...] PATHOLOGY (01/12/2014 12:21 PM CDT) SURGICAL PATHOLOGY ?[facility] ?[address] [facility] ? [place], [place] ??[address] ? Patient: ??BRENDON ALDANA ? : ??1950 ? Procedure Date: ??01/12/2014 ? Accession Date: ??01/12/2014 ? Case No: ??[id number] ? Ordering Dr: ??GATITO MAGALLANES ? Case type SW is performed by [address], ? [place], [place] ??[address]; all other case types are performed by [facility] ? [facility], [address] [place], [place] ??[address] ?SURGICAL PATHOLOGY & NON-GYNECOLOGIC CYTOPATHOLOGY REPORT ? [...] ? Microscopic: ? The sections are labeled [id number], Brendon Aldana. ? The biopsy from the transverse colon displays two pieces of tubular ? adenoma. ? Special stain and/or immunohistochemical results are interpreted with ? controls that demonstrate appropriate staining reactions. Note on use of ? immunocytochemistry reagents: This test was developed and its performance ? characteristic determined by [facility], Department of ? Laboratory Medicine. ??It has [...] FOR EDVIN FLYNN M.D.- 01/15/14 02:39 pm [facility] 01/12/2014 12:2 1 PM CDT Gatito Magallanes DO PATHOLOGY/CYTOLOGY ORDERABLES [facility] CLIA# [id number] [address] [place] [address] * GI REPORT (01/12/2014 10:20 AM CDT) Narrative Transcriptions Gatito Magallanes DO - 01/12/2014 10:19 AM CDT [facility] Endoscopy Patient Name: Brendon Aldana Procedure Date [...] of Addenda: [address]; [place] [address] Gatito Magallanes DO GI PROCEDURE ORDERA BLES [...]
--- OUTSIDE RECORDS SUMMARY | 2024-08-19 13:59 | XMS_ITS | Encounter Summary ---
Author Organization [facility] Address [address] [place] [address] Care Team Providers Care Air Traffic Systems Technician Name Role Phone Unavailable Primary Care Provider Unavailabl e Reason for Visit * Reason Onset Date Comments Results 01/30/2013 xray Encounter Details Date Type Department Care Team (Late st Contact Info) Description 01/30/2013 Telephone [facility] Medicine - [facility] [address] [facility] [address] [place] [address] Ciro Fernandez, DO [address] [facility] [address] [place] [address] Results (xray) Social History Tobacco [...]
--- OUTSIDE RECORDS SUMMARY | 2024-08-19 13:59 | XMS_ITS | Encounter Summary ---
Author Organization [facility] Address [address] [place] [address] Care Team Providers Care Professional Bondsman Name Role Phone Unavailable Primary Care Provider Unavailabl e Reason for Referral * Eval and Treat (Routine) - Closed Specialty Diagnoses / Procedures Referred By Georgie gallagher Referred To Contact Gastroenterology Diagnoses Screen for colon cancer Ciro Fernandez DO [address] [facility] [address] [address] [place] [address] Modesta Wise DO [address] [address] Referral ID Status Reason Start Date Expiration Date V isits Requested Visits Authorized [id number] Closed CRS To Schedule (STL) 10/13/2013 10/13/2014 1 1 TRIC DRILL OPERATOR Reason for Visit * Reason Comments Hypertension chol,follow up labs Encounter Details Date Type Department Care Team (Late st Contact Info) Description 10/13/2013 3:00 PM ELECTRIC DRILL OPERATOR Office Visit [facility] Medicine - [facility] [address] [place] [address] Ciro Fernandez DO [address] [facility] [address] [address] [place] [address] Essential hypertension, benign (Primary Dx); [...] Comments Blood Pressure 122/70 10/13/2013 2:23 PM ELECTRIC DRILL OPERATOR Pulse 76 10/13/2013 2:23 PM ELECTRIC DRILL OPERATOR Temperature 36.6 ??C (97.9 ??F) 10/13/2013 2:23 PM CS T Respiratory Rate - - Oxygen Saturation - - Inhaled Oxygen Concentration - - Weight 94.3 kg (208 lb) 10/13/2013 2:23 PM ELECTRIC DRILL OPERATOR Height 180.3 cm (5' 11 ) 10/13/2013 2:23 PM ELECTRIC DRILL OPERATOR Body Mass Index 29.01 10/13/2013 2:23 PM ELECTRIC DRILL OPERATOR documented in this encounter Progress Notes [...] current treatment regimen. F/u in 6 months TRIC DRILL OPERATOR documented in this encounter Plan of [...]
--- OUTSIDE RECORDS SUMMARY | 2024-08-19 13:59 | XMS_ITS | Encounter Summary ---
Author Organization [facility] Address [address] [place] [address] Care Team Providers Care Incendiaries Supervisor Name Role Phone Unavailable Primary Care Provider Unavailabl e Encounter Details Date Type Department Care Team (Latest Contact Info) Description 01/27/2013 3:13 PM CDT - 01/27/2013 11:59 PM CDT Hospital Encounter [facility] Imaging Services [facility] 107 [facility] [address] [place] [address] Ciro Fernandez, [address] [facility] [address] [place] [address] Discharge Disposition: Home or Self [...] 7:42 AM CDT IMPRESSION: ??Negative. Dictated from [facility] Narrative 01/30/2013 7:42 AM CDT LEFT RIBS [...] is identified. IMPRESSION IMPRESSION: Negative. Dictated from [facility] Ciro Fernandez DO DIAGNOSTIC IMAGING O RDERABLES documented in this encounter Visit Diagnoses Diagnosis Rib pain Chest pain, unspecified documented in this encounter
--- OUTSIDE RECORDS SUMMARY | 2024-08-19 13:59 | XMS_ITS | Encounter Summary ---
Author Organization [facility] Address [address] [place] [address] Care Team Providers Care Telephone Service Adviser Name Role Phone Unavailable Primary Care Provider Unavailabl e Reason for Visit * Reason Comments Medication Refill Encounter Details Date Type Department Care Team (Late st Contact Info) Description 2014 Refill [facility] Medicine - [facility] [address] [facility] [address] [place] [address] Ciro Fernandez, DO [address] [facility] [address] [place] [address] Social History Tobacco Use Types [...] Creatinine, Urine 179 20 - 370 mg/dL [facility] PROTEIN TOTAL, URINE 56 22 - 128 mg/g creat [facility] PROTEIN TOTAL, URINE 10 5 - 25 mg/dL [facility] Comment: REPORT COMMENT: FASTING Test Performed at: [facility] [address] [place], [place] ??[phone] MINO ZAMAN DO,MPH 04/07/2014 7:26 AM CDT Ciro Fernandez DO URINE ORDERABLES INTERFACE SYSTEM Refer to clinic/hospital department [facility] [address] [place] [address] * COMPREHENSIVE METABOLIC PANEL (04/07/2014 7:26 AM CDT) GLUCOSE 97 65 - 99 mg/dL [facility] Comment:Fasting reference in terval BUN 16 7 - 25 mg/dL [facility] [employer] CREATININE 0.91 0.70 - 1.25 mg/dL [facility] Comment: For patients >49 years of age, the reference limit for Creatinine is approximately 13% higher for people identified as -Congolese. GFR 90 > OR = 60 mL/min/1 .73m2 [facility] GFR, 104 > OR = 60 mL/min/[address] [facility] [employer] BUN/CREAT RATIO NOT APPLICABLE 6 - 22 (calc) [facility] SODIUM 141 135 - 146 mmol/L [facility] POTASSIUM 4.4 3.5 - 5.3 mmol/L [facility] [employer] CHLORIDE 100 98 - 110 mmol/L [facility] DIAGNOSTICS [facility] CO2 28 19 - 30 mmol/L [facility] DIAGNOSTICS . [facility] CALCIUM 9.4 8.6 - 10.3 mg/dL [facility] DIAGNOSTICS [facility] TOTAL PROTEIN 6.8 6.1 - 8.1 g/dL [facility] ALBUMIN 4.2 3.6 - 5.1 g/dL [facility] DIAGNOSTICS [facility] GLOBULIN 2.6 1.9 - 3.7 g/dL (calc) [facility] ALBUMIN/GLOBULIN RATIO 1.6 1.0 - 2.5 (calc) [facility] BILIRUBIN TOTAL 0.7 0.2 - 1.2 mg/dL [facility] ALKALINE PHOSPHATASE 60 40 - 115 U/L [facility] AST 22 10 - 35 U/L [facility] . [facility] ALT 30 9 - 46 U/L [facility] [employer] [facility] Comment: REPORT COMMENT: FASTING Test Performed at: [facility] [id number] [place] [address] ??[phone] MINO ZAMAN DO,MPH 04/07/2014 7:26 AM CDT Ciro Fernandez DO CHEMISTRY ORDERABLES Performing Organization Address [facility] Phone Number INTERFACE SYSTEM Refer to clinic/hospital department [facility] [address] [place] [address] * (ABNORMAL) LIPID PANEL (04/07/2014 7:26 AM CDT) CHOLESTEROL 143 125 - 200 mg/dL [facility] [employer] Comment: Test Performed at: [facility] [address] [place] [address] ??[phone] MINO ZAMAN DO,MPH HDL 38(L) > OR = 40 mg/dL [facility] [employer] TRIGLYCERIDE 115 <[address] [facility] LDL CALCULATED 82 <130 mg/dL (calc) [facility] [employer] Comment: Desirable range <100 mg/dL for patients with CHD or diabetes and <70 mg/dL for diabetic patients with known heart disease. CHOL/HDL RATIO 3.8 < OR = 5.0 (calc) [facility] TOTAL NON-HDL CHOL(LDL+VLDL) 105 mg/dL (calc) [facility] Comment: Target for non-HDL cholesterol is 30 mg/dL higher than LDL cholesterol target. 04/07/2014 7:26 AM CDT Ciro Fernandez DO CHEMISTRY ORDERABLES Performing Organization Address [facility] de Phone Number INTERFACE SYSTEM Refer to clinic/hospital department [facility] [address] [place] [address] documented in this encounter Visit Diagnoses Not on filedocumented in this encounter
--- OUTSIDE RECORDS SUMMARY | 2024-08-19 13:59 | XMS_ITS | Encounter Summary ---
Author Organization [facility] Address [address] [place] [address] Care Team Providers Care Keycase Assembler Name Role Phone Unavailable Primary Care Provider Unavailabl e Encounter Details Date Type Department Care Team (Late st Contact Info) Description 10/20/2013 Orders Only [facility] [place] A [address] [place] [address] Modesta Wise, DO [address] [place] [address] Social History Tobacco Use Types [...]
--- OUTSIDE RECORDS SUMMARY | 2024-08-19 13:59 | XMS_ITS | Encounter Summary ---
Author Organization [facility] Address [address] [place] [address] Care Team Providers Care Head Of Sales Promotion Name Role Phone Unavailable Primary Care Provider Unavailabl e Reason for Visit * Reason Comments Cough congestion 1 month Encounter Details Date Type Department Care Team ([facility] st Contact Info) Description 05/09/2013 4:00 PM CDT Office Visit [facility] Medicine - [facility] [address] [facility] [address] [place] [address] Ciro Fernandez, DO [address] [facility] [address] [place] [address] Acute sinusitis (Primary Dx); Allergic [...]
--- OUTSIDE RECORDS SUMMARY | 2024-08-19 13:59 | XMS_ITS | Encounter Summary ---
Author Organization [facility] Address [address] [place] [address] Care Team Providers Care Guest Advisor Name Role Phone Unavailable Primary Care Provider Unavailabl e Reason for Visit * Reason Onset Date Comments Results 12/26/2012 Other Encounter Details Date Type Department Care Team (Late st Contact Info) Description 12/26/[address] [facility] Family Medicine - [facility] [address] [facility] [address] [place] [address] Ciro Fernandze, DO [address] [facility] [address] [place] [address] Results; Social History Tobacco Use [...]
--- OUTSIDE RECORDS SUMMARY | 2024-08-19 13:59 | XMS_ITS | Encounter Summary ---
Author Organization [facility] Address [address] [place] [address] Care Team Providers Care Toddler Teacher Name Role Phone Unavailable Primary Care Provider Unavailabl e Reason for Visit * Reason Comments Medication Refill Encounter Details Date Type Department Care Team (Late st Contact Info) Description 09/07/[address] [facility] Medicine - [facility] [address] [facility] [address] [place] [address] Ciro Fernandez, DO [address] [facility] [address] [place] [address] Social History Tobacco Use Types [...] labs. Patient is having done in Sep. ER CHAIN OFFBEARER documented in this encounter Plan of Treatment Not on file documented as of this encounter Visit Diagnoses Not on filedocumented in this encounter
--- OUTSIDE RECORDS SUMMARY | 2024-08-19 13:59 | XMS_ITS | Encounter Summary ---
Author Organization [facility] Address [address] [place] [address] Care Team Providers Care Cnc Set Up Operator Name Role Phone Unavailable Primary Care Provider Unavailabl e Reason for Visit * Reason Onset Date Comments Medication Refill 03/30/2013 Encounter Details Date Type Department Care Team (Late st Contact Info) Description 03/30/2013 Refill [facility] Family Medicine - [facility] [address] [facility] [address] [place] [address] Ciro Fernandez DO [address] [facility] [address] [place] [address] Social History Tobacco Use Types [...] Preferred pharmacy: [facility] [place], [place] - [address] [facility] Comment: These prescriptions must be written as 90 day prescriptions and sent to [facility] Thank you. documented in this encounter Plan of Treatment Not on file documented as of this encounter Visit Diagnoses Not on filedocumented in this encounter
--- OUTSIDE RECORDS SUMMARY | 2024-08-19 13:59 | XMS_ITS | Encounter Summary ---
Author Organization [facility] Address [address] [place] [address] Care Team Providers Care Weave Room Supervisor Name Role Phone Unavailable Primary Care Provider Unavailabl e Reason for Visit * Reason Comments Physical follow up labs Encounter Details Date Type Department Care Team (Latest Contact Info) Description 01/13/2013 11:00 AM CDT Office Visit [facility] Medicine - [facility] [address] [facility] [address] [place] [address] Ciro Fernandez, DO [address] [facility] [address] [place] [address] Well adult exam (Primary Dx); [...]
--- OUTSIDE RECORDS SUMMARY | 2024-08-19 13:59 | XMS_ITS | Encounter Summary ---
Author Organization [facility] Address [address] [place] [address] Care Team Providers Care Operations Scheduler Name Role Phone Unavailable Primary Care Provider Unavailabl e Reason for Visit * Reason Onset Date Comments Other 04/21/2013 Encounter Details Date Type Department Care Team (Late st Contact Info) Description 04/21/2013 Telephone [facility] Family Medicine - [facility] [address] [facility] [address] [place] [address] Ciro Fernandez, DO [address] [facility] [address] [place] [address] Other Social History Tobacco Use [...] CDT Patient is out of town in [place] and went to an urgent care they gave him abx and cough medicine (promethazine dm) For sinus infection, but he read on the bottle of cough medication that he cannot take that with his zyrtec d, can you call in another cough medication for him that he can take with his zyrtec? Pharmacy is in [place] phone number is [phone] documented in this encounter Plan of Treatment Not on file documented as of this encounter Visit Diagnoses Not on filedocumented in this encounter
--- OUTSIDE RECORDS SUMMARY | 2024-08-19 13:59 | XMS_ITS | Encounter Summary ---
Author Organization [facility] Address [address] [place] [address] Care Team Providers Care Study Hall Supervisor Name Role Phone Unavailable Primary Care Provider Unavailabl e Reason for Visit * Reason Onset Date Comments Results 10/02/2013 Encounter Details Date Type Department Care Team (Late st Contact Info) Description 10/02/2013 Telephone [facility] Family Medicine - [facility] [address] [facility] [address] [place] [address] Ciro Fernandez, DO [address] [facility] [address] [place] [address] Results Social History Tobacco Use [...] - 10/02/2013 2:55 PM CST Pt informed/sb RIST * Telephone Encounter - Jennifer Burnett - 10/02/2013 2:45 PM CST Message copied by JENNIFER BURNETT on WedOct 02, 2013 2:45 PM ------ Message from: SARAH FERNANDEZ Created: Damari Oct 01, 2013 11:38 AM Your laboratory studies have been received, please return to office for a follow up examination. ------ RIST documented in this encounter Plan of Treatment Not on file documented as of this encounter Visit Diagnoses Not on filedocumented in this encounter
--- OUTSIDE RECORDS SUMMARY | 2024-08-19 13:59 | XMS_ITS | Encounter Summary ---
Author Organization [facility] Address [address] [place] [address] Care Team Providers Care In House Counsel Name Role Phone Unavailable Primary Care Provider Unavailabl e Reason for Visit * Outpatient Services (Routine) - Closed Specialty Diagnoses / Procedures Referred By Contac t Referred To Contact Radiology Diagnoses Cough Procedures XR CHEST Ciro Fernandez DO [address] [place] [address] [place] [address] Referral ID Status Reason Start Date Expiration Date Visits Re quested Visits Authorized [id number] Closed 01/10/2014 02/10/2015 1 1 Encounter Details Date Type Department Care Team (Latest Contact Info) Description 01/10/2014 11:35 AM CDT - 01/10/2014 11:59 PM CDT Hospital Encounter [facility] [place] [address] Ciro Fernandez DO [address] [place] [place] [address] Discharge Disposition: Home or Self Care [...] 1 12/25/2013 05/09/2014 fluticasone (FLONASE) 50 mcg/spray [place], SuspensionIndications:A llergic rhinitis Administer 2 Sprays in [...] IMPRESSION: No acute disease. ?? Dictated from [facility] Narrative 01/10/2014 12:19 PM CDT [...] IMPRESSION IMPRESSION: No acute disease. Dictated from [facility] Ciro Fernandez DO DIAGNOSTIC IMAGING O RDERABLES documented in this encounter Visit Diagnoses Diagnosis Cough documented in this encounter
--- OUTSIDE RECORDS SUMMARY | 2024-08-19 13:59 | XMS_ITS | Encounter Summary ---
Author Organization [facility] Address [address] [place] [address] Care Team Providers Care Rn Referral Name Role Phone Unavailable Primary Care Provider Unavailabl e Reason for Visit * Reason Comments Cough drainage x 4wks alonzo doherty mucinex and singulair Encounter Details Date Type Department Care Team (Late st Contact Info) Description 01/10/2014 11:30 AM CDT Office Visit [facility] Medicine - [facility] [address] [facility] [address] [place] [address] Ciro Fernandez, DO [address] [facility] [address] [place] [address] Cough (Primary Dx); Allergic rhinitis; [...] DO - 01/10/2014 12:36 PM CDT Subjective: Brendon Aldana 63 y.o. [...] bilateral maxillary sinuses. Throat erythematous without exudates. [place], swollen nasal turbinates. clear Nasal Discharge. Ears [...] IMPRESSION: No acute disease. ?? Dictated from [facility] Narrative 01/10/2014 12:19 PM CDT PA [...] IMPRESSION IMPRESSION: No acute disease. Dictated from [facility] Ciro Fernandez DO DIAGNOSTIC IMAGING O RDERABLES documented in this encounter Visit Diagnoses Diagnosis Cough- Primary Allergic rhinitis Allergic rhinitis, cause unspecified GERD (gastroesophageal reflux disease) Esophageal reflux Cough documented in this encounter
--- OUTSIDE RECORDS SUMMARY | 2024-08-19 13:59 | XMS_ITS | Encounter Summary ---
Author Organization [facility] Address [address] [place] [address] Care Team Providers Care Active Directory Architect Name Role Phone Unavailable Primary Care Provider Unavailabl e Encounter Details Date Type Department Care Team (Late st Contact Info) Description 01/10/2014 Orders Only [facility] Medicine - [facility] [address] [facility] [address] [place] [address] Ciro Fernandez, DO 107 [facility] [address] [place] [address] Social History Tobacco Use Types [...]
--- OUTSIDE RECORDS SUMMARY | 2024-08-19 13:59 | XMS_ITS | Encounter Summary ---
Author Organization [facility] Address [address] [place] [address] Care Team Providers Care Coke Inspector Name Role Phone Unavailable Primary Care Provider Unavailabl e Reason for Visit * Reason Comments Sinus Pain pa, cough, drainag e x 5 days Encounter Details Date Type Department Care Team (Late st Contact Info) Description 12/18/2013 4:15 PM CDT Office Visit [facility] Medicine - [facility] [address] [facility] [address] [place] [address] Ciro Fernandez, DO [address] [facility] [address] [place] [address] Sinusitis, acute (Primary Dx); Allergic [...] Allergic rhinitis - fluticasone (FLONASE) 50 mcg/spray [place], Suspension; Administer 2 Sprays in each nostril [...]
--- OUTSIDE RECORDS SUMMARY | 2024-08-19 13:59 | XMS_ITS | Encounter Summary ---
Author Organization [facility] Address [address] [place] [address] Care Team Providers Care Head Still Operator Name Role Phone Unavailable Primary Care Provider Unavailabl e Reason for Visit * Reason Onset Date Comments Medication Refill 12/25/2013 Encounter Details Date Type Department Care Team (Late st Contact Info) Description 12/25/2013 Refill [facility] Family Medicine - [facility] [address] [facility] [address] [place] [address] Ciro Fernandez DO [address] [facility] [address] [place] [address] Social History Tobacco Use Types [...] Preferred pharmacy: [facility] - [address] Comment: Flip must be written as a 90 day Flip [facility]. Thank you. documented in this encounter Plan of Treatment Not on file documented as of this encounter Visit Diagnoses Not on filedocumented in this encounter
--- OUTSIDE RECORDS SUMMARY | 2024-08-19 13:59 | XMS_ITS | Encounter Summary ---
Author Organization [facility] Address [address] [facility] Attn: [place] [address] Care Team Providers Care Director Of Catering Name Role Phone Unavailable Primary Care Provider Unavailabl e Encounter Details Date Type Department Care Team (Late st Contact Info) Description 12/24/2012 Office Visit Initial Department [address] [facility] ATTN: [place] [address] Provider, Historical Social History Tobacco Use Types [...] [facility] Comment: Test Performed at: [facility] [address] ??[phone] MINO ZAMAN DO,MPH 12/24/2012 7:27 AM CDT Ciro Fernandez DO URINE ORDERABLES INTERFACE SYSTEM Refer to clinic/hospital department [facility] [address] [place] [address] * COMPREHENSIVE METABOLIC PANEL (12/24/2012 7:27 AM CDT) GLUCOSE 98 65 - 99 mg/dL [facility] Comment:Fasting reference in terval BUN 18 7 - 25 mg/dL [facility] . [facility] CREATININE 0.85 0.70 - 1.25 mg/dL [facility] Comment: For patients >49 years of age, the reference limit for Creatinine is approximately 13% higher for people identified as -Belgian. GFR 95 > OR = 60 mL/min/1 .73m2 [facility] GFR, 110 > OR = 60 mL/min/1 .73m2 [facility] BUN/CREAT RATIO NOT APPLICABLE 6 - 22 (calc) [facility] DIAGNOSTICS . [facility] SODIUM 137 135 - 146 mmol/L [facility] . [facility] POTASSIUM 4.4 3.5 - 5.3 mmol/L [facility] DIAGNOSTICS . [facility] CHLORIDE 103 98 - 110 mmol/L [facility] CO2 25 19 - 30 mmol/L [facility] . [facility] CALCIUM 9.4 8.6 - 10.3 mg/dL [facility] . [facility] TOTAL PROTEIN 7.0 6.1 - 8.1 g/dL [facility] . [facility] ALBUMIN 4.4 3.6 - 5.1 g/dL [facility] GLOBULIN 2.6 1.9 - 3.7 g/dL (calc) [facility] . [facility] ALBUMIN/GLOBULIN RATIO 1.7 1.0 - 2.5 (calc) [facility] BILIRUBIN TOTAL 0.9 0.2 - 1.2 mg/dL [facility] ALKALINE PHOSPHATASE 66 40 - 115 U/L [facility] . [facility] AST 19 10 - 35 U/L [facility] . [facility] ALT 31 9 - 60 U/L [facility] Comment: Test Performed at: [facility] [place] [address] [place], [place] ??[address] MINO ZAMAN DO,MPH 12/24/2012 7:27 AM CDT Ciro Fernandez DO CHEMISTRY ORDERABLES Performing Organization Address [facility] Phone Number INTERFACE SYSTEM Refer to clinic/hospital department [facility] [address] [place] [address] * LIPID PANEL (12/24/2012 7:27 AM CDT) CHOLESTEROL 153 125 - 200 mg/dL [facility] Comment: Test Performed at: [facility] [employer] ??[phone] MINO ZAMAN DO,MPH HDL 42 > OR = 40 mg/dL [facility] TRIGLYCERIDE 111 <150 mg/dL [facility] LDL CALCULATED 89 <130 mg/dL (calc) [facility] Comment: Desirable range <100 mg/dL for patients with CHD or diabetes and <70 mg/dL for diabetic patients with known heart disease. CHOL/HDL RATIO 3.6 < OR = 5.0 (calc) [facility] TOTAL NON-HDL CHOL(LDL+VLDL) 111 mg/dL (calc) [facility] Comment: Target for non-HDL cholesterol is 30 mg/dL higher than LDL cholesterol target. 12/24/2012 7:27 AM CDT Ciro Fernandez DO CHEMISTRY ORDERABLES Performing Organization Address [facility] Phone Number INTERFACE SYSTEM Refer to clinic/hospital department [facility] [address] [place] [address] documented in this encounter Visit Diagnoses Not on filedocumented in this encounter
--- OUTSIDE RECORDS SUMMARY | 2024-08-19 13:59 | XMS_ITS | Encounter Summary ---
Author Organization [facility] Address [address] [place] [address] Care Team Providers Care Construction Plant Operator Name Role Phone Unavailable Primary Care Provider Unavailabl e Reason for Visit * Reason Onset Date Comments Medication Refill 01/30/2013 Results 01/30/2013 Encounter Details Date Type Department Care Team (Late st Contact Info) Description 01/30/2013 Telephone [facility] Family Medicine - [facility] [address] [facility] [address] [place] [address] Ciro Fernandez, DO [address] [facility] [address] [place] [address] Medication Refill; Results Social History [...] it should have been sent to the [facility], please send itthere. Also he is waiting [...]
--- OUTSIDE RECORDS SUMMARY | 2024-08-19 13:59 | XMS_ITS | Encounter Summary ---
Author Organization [facility] Address [address] [place] [address] Care Team Providers Care Yarn Worker Name Role Phone Unavailable Primary Care Provider Unavailabl e Reason for Visit * Reason Onset Date Comments Erroneous encounter-disregard 01/04/2013 Encounter Details Date Type Department Care Team (Late st Contact Info) Description 01/04/2013 Telephone [facility] Family Medicine - [facility] [address] [facility] [address] [place] [address] Ciro Fernandez, DO [address] [facility] [address] [place] [address] Erroneous encounter-disregard Social History Tobacco [...]
--- OUTSIDE RECORDS SUMMARY | 2024-08-19 13:59 | XMS_ITS | Encounter Summary ---
Author Organization [facility] Address [address] [place] [address] Care Team Providers Care General Utility Worker Name Role Phone Unavailable Primary Care Provider Unavailabl e Reason for Visit * Reason Onset Date Comments Medication Refill 08/23/2013 Encounter Details Date Type Department Care Team (Late st Contact Info) Description 08/23/2013 Refill [facility] Family Medicine - [facility] [address] [facility] [address] [place] [address] Ciro Fernandez DO [address] [facility] [address] [place] [address] Esophageal reflux (Primary Dx) Social [...] due for labs he will have done. INE FEEDER * Telephone Encounter - Delma Foster CMA - 08/23/2013 8:57 AM CSTFrom: Brendon Aldana To: Ciro Fernandez DO Sent: 08/23/2013 7:47 AM MACHINE FEEDER Subject: Medication Renewal Request Original authorizing provider: DO Brendon Tom would like a refill of the following medications: omeprazole (PRILOSEC) 20 mg Oral CpDR [Ciro Fernandez DO] Preferred pharmacy: Other - [facility] - [address] Comment: This rx needs to be written as a 90 day rx and sent to [facility]. Thanks you. INE FEEDER documented in this encounter Plan of Treatment Not on file documented as of this encounter Visit Diagnoses Diagnosis Esophageal reflux- Primary documented in this encounter
--- OUTSIDE RECORDS SUMMARY | 2024-08-19 13:59 | XMS_ITS | Encounter Summary ---
Author Organization [facility] Address [address] [place] [address] Care Team Providers Care Ux Lead Name Role Phone Unavailable Primary Care Provider Unavailabl e Reason for Visit * Reason Onset Date Comments Cough 01/12/2014 Encounter Details Date Type Department Care Team (Late st Contact Info) Description 01/12/2014 Telephone [facility] Family Medicine - [facility] [address] [facility] [address] [place] [address] Ciro Fernandez, DO [address] [facility] [address] [place] [address] Cough Social History Tobacco Use [...]
--- OUTSIDE RECORDS SUMMARY | 2024-08-19 13:59 | XMS_ITS | Encounter Summary ---
Author Organization [facility] Address [address] [place] [address] Care Team Providers Care Manager Gyn Name Role Phone Unavailable Primary Care Provider Unavailabl e Reason for Visit * Reason Onset Date Comments Results 01/30/2013 xray Encounter Details Date Type Department Care Team (Late st Contact Info) Description 01/30/2013 Telephone [facility] Family Medicine - [facility] [address] [facility] [address] [place] [address] Ciro Fernandez, DO [address] [facility] [address] [place] [address] Results (xray) Social History Tobacco [...]
--- OUTSIDE RECORDS SUMMARY | 2024-08-19 13:59 | XMS_ITS | Encounter Summary ---
Author Organization [facility] Address [address] [facility] Attn: [place] [address] Care Team Providers Care Sourcing Coordinator Name Role Phone Unavailable Primary Care Provider Unavailabl e Encounter Details Date Type Department Care Team (Late st Contact Info) Description 09/30/2013 Office Visit Initial Department [address] [facility] ATTN: [place] [address] Provider, Historical Social History Tobacco Use Types [...] Diagnosis Comments PSA Routine 09/30/2013 7:33 AM FACING SLITTER LIPID PANEL Routine 09/30/2013 7:33 AM FACING SLITTER COMPREHENSIVE METABOLIC PANEL Routine 09/30/2013 7:33 AM FACING SLITTER documented in this encounter Results * COMPREHENSIVE METABOLIC PANEL (09/30/2013 7:33 AM FACING SLITTER) Pathologist [facility] GLUCOSE 98 65 - 99 mg/dL [facility] Comment:Fasting reference in terval BUN 17 7 - 25 mg/dL [facility] CREATININE 0.95 0.70 - 1.25 mg/dL [facility] Comment: For patients >49 years of age, the reference limit for Creatinine is approximately 13% higher for people identified as -[place]. GFR 86 > OR = 60 mL/min/1 .73m2 [facility] GFR, 100 > OR = 60 mL/min/1 .73m2 [facility] BUN/CREAT RATIO NOT APPLICABLE 6 - (calc) [facility] SODIUM 141 135 - 146 mmol/L [facility] POTASSIUM 4.9 3.5 - 5.3 mmol/L [employer] . [facility] CHLORIDE 102 98 - 110 mmol/L [facility] CO2 27 19 - 30 mmol/L [facility]. [facility] CALCIUM 9.5 8.6 - 10.3 mg/dL [facility]. [facility] TOTAL PROTEIN 7.3 6.1 - 8.1 g/dL [facility]. [facility] ALBUMIN 4.5 3.6 - 5.1 g/dL [facility]. [facility] GLOBULIN 2.8 1.9 - 3.7 g/dL (calc) [facility] ALBUMIN/GLOBULIN RATIO 1.6 1.0 - 2.5 (calc) [employer] [facility] BILIRUBIN TOTAL 1.0 0.2 - 1.2 mg/dL [facility] ALKALINE PHOSPHATASE 66 40 - 115 U/L [facility] AST 23 10 - 35 U/L [facility] ALT 32 9 - 46 U/L [employer] [facility] Comment: REPORT COMMENT: FASTING Test Performed at: [facility] [address] ??[id number] MINO ZAMAN DO,MPH 09/30/2013 7:33 AM FACING SLITTER Ciro Fernandez DO CHEMISTRY ORDERABLES INTERFACE SYSTEM Refer to clinic/hospital department [facility] [address] [place] [address] * LIPID PANEL (09/30/2013 7:33 AM FACING SLITTER) CHOLESTEROL 141 125 - 200 mg/dL [facility] Comment: Test Performed at: [facility] [address] ??[id number] MINO ZAMAN DO,MPH HDL 45 > OR = 40 mg/dL [employer] TRIGLYCERIDE 93 <150 mg/dL [facility] LDL CALCULATED 77 <130 mg/dL (calc) [facility] Comment: Desirable range <100 mg/dL for patients with CHD or diabetes and <70 mg/dL for diabetic patients with known heart disease. CHOL/HDL RATIO 3.1 < OR = 5.0 (calc) [facility] TOTAL NON-HDL CHOL(LDL+VLDL) 96 mg/dL (calc) [facility] Comment: Target for non-HDL cholesterol is 30 mg/dL higher than LDL cholesterol target. 09/30/2013 7:33 AM FACING SLITTER Ciro Fernandez DO CHEMISTRY ORDERABLES Performing Organization Address [facility] Phone Number INTERFACE SYSTEM Refer to clinic/hospital department [employer] [facility] [address] [place] [address] * PSA (09/30/2013 7:33 AM FACING SLITTER) PSA 0.3 < OR = 4.0 ng/mL [facility] Comment: This test was performed using the Siemens chemiluminescent method. Values obtained from different assay methods cannot be used interchangeably. PSA levels, regardless of value, should not be interpreted as absolute evidence of the presence or absence of disease. REPORT COMMENT: FASTING Test Performed at: [facility] [place] [id number] [place] [address] ??[phone] MINO ZAMAN DO,MPH 09/30/2013 7:33 AM FACING SLITTER Ciro Fernandez DO CHEMISTRY ORDERABLES Performing Organization Address [facility] Phone Number INTERFACE SYSTEM Refer to clinic/hospital department [employer] [facility] [address] [place] [address] documented in this encounter Visit Diagnoses Not on filedocumented in this encounter
--- OUTSIDE RECORDS SUMMARY | 2024-08-19 13:59 | XMS_ITS | Encounter Summary ---
Author Organization [facility] Address [address] [place] [address] Care Team Providers Care Commercial Artist Name Role Phone Unavailable Primary Care Provider Unavailabl e Reason for Visit * Reason Onset Date Comments Results 04/12/2014 Encounter Details Date Type Department Care Team (Late st Contact Info) Description 04/12/2014 Telephone [facility] Medicine - [facility] [address] [facility] [address] [place] [address] Ciro Fernandez, DO [address] [facility] [address] [place] [address] Results Social History Tobacco Use [...]
--- OUTSIDE RECORDS SUMMARY | 2024-08-19 14:00 | XMS_ITS | Encounter Summary ---
Author Organization [facility] Address [address] [place] [address] Care Team Providers Care Memorandum Statement Clerk Name Role Phone Unavailable Primary Care Provider Unavailabl e Encounter Details Date Type Department Care Team (Late st Contact Info) Description 08/15/2012 Abstract [facility] Medicine - [facility] [place] [address] [facility] [address] [place] [address] Ciro Fernandez, DO [address] [facility] [address] [place] [address] Social History Tobacco Use Types [...]
--- OUTSIDE RECORDS SUMMARY | 2024-08-19 14:00 | XMS_ITS | Encounter Summary ---
Author Organization [facility] Address [address] [place] [address] Care Team Providers Care Computer Repair Instructor Name Role Phone Unavailable Primary Care Provider Unavailabl e Reason for Visit * Reason Comments Hypertension chol,followup labs Encounter Details Date Type Department Care Team (Latest Contact Info) Description 04/03/2011 9:15 AM CDT Office Visit [facility] Medicine - [facility]und[facility] [place] [address] [place] [address] Ciro Fernandez, DO [address] [facility] [address] [place] [address] Essential hypertension, benign (Primary Dx); [...]
--- OUTSIDE RECORDS SUMMARY | 2024-08-19 14:00 | XMS_ITS | Encounter Summary ---
Author Organization [facility] Address [address] [place] [address] Care Team Providers Care Moshgiach Name Role Phone Unavailable Primary Care Provider Unavailabl e Reason for Visit * Reason Onset Date Comments Medication Refill 06/17/2012 Encounter Details Date Type Department Care Team (Late st Contact Info) Description 06/17/2012 Refill [facility] Medicine - [facility] [place]und[place] [address] [facility] [address] [place] [address] Ciro Fernandez, DO [address] [facility] [address] [place] [address] Cough (Primary Dx) Social History [...]
--- OUTSIDE RECORDS SUMMARY | 2024-08-19 14:00 | XMS_ITS | Encounter Summary ---
Author Organization [facility] Address [address] [place] [address] Care Team Providers Care Costume Design Teacher Name Role Phone Unavailable Primary Care Provider Unavailabl e Reason for Visit * Reason Onset Date Comments Results 07/18/2012 Encounter Details Date Type Department Care Team (Late st Contact Info) Description 07/18/2012 Telephone [facility] Family Medicine - [facility] [place] [address] [facility] [address] [place] [address] Ciro Fernandez, DO [address] [facility] [address] [place] [address] Results Social History Tobacco Use [...] and try them. Mailed new lab orders ROLLER * Telephone Encounter - Delma Tobar - [...] and we will f/u at that point ROLLER documented in this encounter Plan of Treatment Not on file documented as of this encounter Visit Diagnoses Diagnosis Essential hypertension, benign Pure hypercholesterolemia documented in this encounter
--- OUTSIDE RECORDS SUMMARY | 2024-08-19 14:00 | XMS_ITS | Encounter Summary ---
Author Organization [facility] Address [address] [place] [address] Care Team Providers Care Gaming Department Head Name Role Phone Unavailable Primary Care Provider Unavailabl e Reason for Visit * Reason Onset Date Comments Medication Refill 08/23/2012 Encounter Details Date Type Department Care Team (Late st Contact Info) Description 08/23/2012 Refill [facility] Medicine - [facility] [place] [address] [facility] [address] [place] [address] Ciro Fernandez, DO [address] [facility] [address] [place] [address] Allergic rhinitis (Primary Dx) Social [...]
--- OUTSIDE RECORDS SUMMARY | 2024-08-19 14:00 | XMS_ITS | Encounter Summary ---
Author Organization [facility] Address [address] [place] [address] Care Team Providers Care Lieutenant Colonel Name Role Phone Unavailable Primary Care Provider Unavailabl e Reason for Visit * Reason Comments Cough patient feels winded like he can not get a full breath Encounter Details Date Type Department Care Team (Late st Contact Info) Description 06/14/2012 2:15 PM COMPENSATION AND BENEFITS ADVISOR Office Visit [facility] Medicine - [facility] [address] [facility] [address] [place] [address] Ciro Fernandez, DO [address] [facility] [address] [place] [address] Cough; Allergic rhinitis Social History [...] Comments Blood Pressure 112/62 06/14/2012 1:59 PM COMPENSATION AND BENEFITS ADVISOR Pulse 62 06/14/2012 1:59 PM COMPENSATION AND BENEFITS ADVISOR Temperature 37 ??C (98.6 ??F) 06/14/2012 1:59 PM COMPENSATION AND BENEFITS ADVISOR Respiratory Rate - - Oxygen Saturation 98% 06/14/2012 2:18 PM COMPENSATION AND BENEFITS ADVISOR Inhaled Oxygen Concentration - - Weight 97.1 kg (214 lb) 06/14/2012 1:59 PM COMPENSATION AND BENEFITS ADVISOR Height 177.8 cm (5' 10 ) 06/14/2012 1:59 PM COMPENSATION AND BENEFITS ADVISOR Body Mass Index 30.71 06/14/2012 1:59 PM COMPENSATION AND BENEFITS ADVISOR documented in this encounter Progress Notes * [...] worsen or fail to improve as anticipated. ENSATION AND BENEFITS ADVISOR documented in this encounter Plan of Treatment Not on file documented as of this encounter Visit Diagnoses Diagnosis Cough Allergic rhinitis Allergic rhinitis, cause unspecified documented in this encounter
--- OUTSIDE RECORDS SUMMARY | 2024-08-19 14:00 | XMS_ITS | Encounter Summary ---
Author Organization [facility] Address [address] [place] [address] Care Team Providers Care Head Operator Name Role Phone Unavailable Primary Care Provider Unavailabl e Encounter Details Date Type Department Care Team (Late st Contact Info) Description 07/15/2011 Abstract [facility] Medicine - [facility] [place] [address] [facility] [address] [place] [address] Ciro Fernandez, DO [address] [facility] [address] [place] [address] Social History Tobacco Use Types [...]
--- OUTSIDE RECORDS SUMMARY | 2024-08-19 14:00 | XMS_ITS | Encounter Summary ---
Author Organization [facility] Address [address] [place] [address] Care Team Providers Care Boiling House Hand Name Role Phone Unavailable Primary Care Provider Unavailabl e Reason for Visit * Reason Onset Date Comments Results 07/11/2012 Encounter Details Date Type Department Care Team ([facility] st Contact Info) Description 07/11/2012 Telephone [facility] Family Medicine - [facility] [place] [address] [facility] [address] [place] [address] Ciro Fernandez, DO [address] [facility] [address] [place] [address] Results Social History Tobacco Use [...] with patient about results has appointment with wood tank builder 07/12/2012 MATIC TOE LASTER * Telephone Encounter - Delma Tobar - 07/11/2012 8:52 AM CST Message copied by DELMA TOBAR on WedJul 11, 2012 8:52 AM ------ Message from: SARAH FERNANDEZ Created: Sun Jul 10, 2012 7:26 PM Breathing study was normal. Continue with recommendations given at appointment. Call or return to clinic prn if these symptoms worsen or fail to improve as anticipated. MATIC TOE LASTER documented in this encounter Plan of Treatment Not on file documented as of this encounter Visit Diagnoses Not on filedocumented in this encounter
--- OUTSIDE RECORDS SUMMARY | 2024-08-19 14:00 | XMS_ITS | Encounter Summary ---
Author Organization [facility] Address [address] [place] [address] Care Team Providers Care Aircraft Maintenance Manager Name Role Phone Unavailable Primary Care Provider Unavailabl e Reason for Visit * Reason Onset Date Comments Medication Refill 07/14/2011 Encounter Details Date Type Department Care Team (Late st Contact Info) Description 07/14/2011 Refill [facility] Medicine - [facility] [place] [address] [facility] [address] [place] [address] Ciro Fernandez, DO [address] [facility] [address] [place] [address] Esophageal reflux (Primary Dx) Social [...]
--- OUTSIDE RECORDS SUMMARY | 2024-08-19 14:00 | XMS_ITS | Encounter Summary ---
Author Organization [facility] Address [address] [place] [address] Care Team Providers Care Irrigation Supervisor Name Role Phone Unavailable Primary Care Provider Unavailabl e Encounter Details Date Type Department Care Team (Latest Contact Info) Description 06/08/2012 12:00 PM CDT - 06/08/2012 11:59 PM CDT Hospital Encounter [facility] [address] [facility] [address] [place] [address] Ciro Fernandez, 107 [facility] [address] [place] [address] Discharge Disposition: Home or Self [...]
--- OUTSIDE RECORDS SUMMARY | 2024-08-19 14:00 | XMS_ITS | Encounter Summary ---
Author Organization [facility] Address [address] [place] [address] Care Team Providers Care Bed And Breakfast Innkeeper Name Role Phone Unavailable Primary Care Provider Unavailabl e Reason for Visit * Reason Comments Nasal Congestion sore throat , 1 week Encounter Details Date Type Department Care Team (Late st Contact Info) Description 05/05/2012 3:45 PM CDT Office Visit [facility] Medicine - [facility] [address] [facility] [address] [place] [address] Ciro Fernandez, DO 107 [facility] [address] [place] [address] Acute sinusitis (Primary Dx) Social [...]
--- OUTSIDE RECORDS SUMMARY | 2024-08-19 14:00 | XMS_ITS | Encounter Summary ---
Author Organization [facility] Address [address] [place] [address] Care Team Providers Care Director Of Product Design Name Role Phone Unavailable Primary Care Provider Unavailabl e Reason for Visit * Reason Onset Date Comments Medication Problem 08/24/2012 Encounter Details Date Type Department Care Team (Late st Contact Info) Description 08/24/2012 Telephone [facility] Family Medicine - [facility] Abundio Yuan [address] [facility] [address] [place] [address] Ciro Fernandez, DO [address] [facility] [address] [place] [address] Medication Problem Social History Tobacco [...] Spoke with patient [facility] T[facility]ER * Telephone Encounter - Jennifer Burnett - 08/24/2012 11:54 AM CST PT CALLED, HE NEEDS THE ZYRTEC D TO GO TO [facility] [place] [facility], CAN WE SEND IT THERE? TIZER documented in this encounter Plan of Treatment Not on file documented as of this encounter Visit Diagnoses Not on filedocumented in this encounter
--- OUTSIDE RECORDS SUMMARY | 2024-08-19 14:00 | XMS_ITS | Encounter Summary ---
Author Organization [facility] Address [address] [place] [address] Care Team Providers Care Instant Potato Processor Name Role Phone Unavailable Primary Care Provider Unavailabl e Reason for Visit * Reason Onset Date Comments Other 07/14/2011 Encounter Details Date Type Department Care Team (Late st Contact Info) Description 07/14/2011 Telephone [facility] Family Medicine - [facility] [place] [address] [facility] [address] [place] [address] Ciro Fernandez, DO [address] [facility] [address] [place] [address] Other Social History Tobacco Use [...] 07/14/2011 2:31 PM CST Received fax from [employer] stating there are alternatives for benicar/hct that would be cheaper for patient. Dr Fernandez suggests Lorsartan/hctz one po daily. Discussed with patient and . They would like to change to new medication. They will monitor bps and call us with any highs or lows. If any h/a, dizziness, cp call us or go to ER. and patient understand. New script faxed to [employer]. FINGER CHIEF * Telephone Encounter - Jennifer Burnett - 07/14/2011 12:17 PM CST PER GALEN WANTS TO GO AHEAD AND SWITCH THE MEDICINE, UNLESS [facility] HAS ALREADY SENT IN THE OTHER ONE, IF SHE HAS THEN DONT WORRY ABOUT IT FINGER CHIEF documented in this encounter Plan of Treatment Not on file documented as of this encounter Visit Diagnoses Not on filedocumented in this encounter
--- OUTSIDE RECORDS SUMMARY | 2024-08-19 14:00 | XMS_ITS | Encounter Summary ---
Author Organization [facility] Address [address] [place] [address] Care Team Providers Care Beef Farmer Name Role Phone Unavailable Primary Care Provider Unavailabl e Reason for Visit * Reason Onset Date Comments Medication Refill 03/09/2011 Encounter Details Date Type Department Care Team (Late st Contact Info) Description 03/09/2011 Refill [facility] Medicine - [facility] [place] [address] [place] [address] Ciro Fernandez, DO [address] [facility] [address] [place] [address] Social History Tobacco Use Types [...]
--- OUTSIDE RECORDS SUMMARY | 2024-08-19 14:00 | XMS_ITS | Encounter Summary ---
Author Organization [facility] Address [address] [place] [address] Care Team Providers Care Spray Drier Operator Helper Name Role Phone Unavailable Primary Care Provider Unavailabl e Reason for Visit * Reason Onset Date Comments Medication Refill 03/22/2012 Encounter Details Date Type Department Care Team (Late st Contact Info) Description 03/22/2012 Refill [facility] Family Medicine - [facility] [address] [facility] [address] [place] [address] Ciro Fernandez DO [address] [facility] [address] [place] [address] Social History Tobacco Use Types [...] 9:12 AM CDT LM with patient to pick up driver script here at office * Telephone Encounter - Kay Jesus - 03/22/2012 8:43 AM CDTFrom: BRENDON ALDANA To: Ciro Fernandez DO Sent: WedMar 22, 2012 7:14 AM Subject: Medication Renewal Request Original authorizing provider: DO Brendon Tom would like a refill of the following medications: pseudoephedrine (SUDOGEST) 30 mg Oral tablet [Ciro Fernandez DO] Preferred pharmacy: [id number] Comment: documented in this encounter Plan of Treatment Not on file documented as of this encounter Visit Diagnoses Not on filedocumented in this encounter
--- OUTSIDE RECORDS SUMMARY | 2024-08-19 14:00 | XMS_ITS | Encounter Summary ---
Author Organization [facility] Address [address] [place] [address] Care Team Providers Care Assembly Line Supervisor Name Role Phone Unavailable Primary Care Provider Unavailabl e Reason for Visit * Reason Comments Cough ap,drainage, h/a,b ilateral ear pain x 1wk Encounter Details Date Type Department Care Team (Late st Contact Info) Description 10/17/2012 2:15 PM CDT Office Visit [facility] Medicine [facility] [place] [address] [facility] [address] [place] [address] Ciro Fernandez, DO 107 [facility] [address] [place] [address] OM (otitis media) (Primary Dx); [...]
--- OUTSIDE RECORDS SUMMARY | 2024-08-19 14:00 | XMS_ITS | Encounter Summary ---
Author Organization [facility] Address [address] [facility] Attn: [place] [address] Care Team Providers Care Senior Java Engineer Name Role Phone Unavailable Primary Care Provider Unavailabl e Encounter Details Date Type Department Care Team (Late st Contact Info) Description 07/16/2012 Outpatient Historical Initial Department [address] [place] [address] ATTN: [place] [address] Provider, Historical Social History Tobacco Use Types [...] , RANDOM URINE Routine 2 7:54 AM AIRLINE TICKET AGENT PSA Routine 07/16/2012 7:54 AM AIRLINE TICKET AGENT LIPID PANEL Routine 07/16/2012 7:54 AM AIRLINE TICKET AGENT COMPREHENSIVE METABOLIC PANEL Routine 07/16/2012 7:54 AM AIRLINE TICKET AGENT documented in this encounter Results * PROTEIN , RANDOM URINE (07/16/2012 7:54 AM AIRLINE TICKET AGENT) Creatinine, Urine 210 20 - 370 mg/dL [facility] PROTEIN TOTAL, URINE 67 22 - 128 mg/g creat [facility] PROTEIN TOTAL, URINE 14 5 - 25 mg/dL [facility] Comment: Test Performed at: [facility] [address] [place], [place] ??[address] MINO ZAMAN DO,MPH 07/16/2012 7:54 AM AIRLINE TICKET AGENT Ciro Fernandez DO URINE ORDERABLES INTERFACE SYSTEM Refer to clinic/hospital department [facility] [address] [place] [address] * (ABNORMAL) COMPREHENSIVE METABOLIC PANEL (07/16/2012 7:54 AM AIRLINE TICKET AGENT) GLUCOSE 102(H) 65 - 99 mg/dL [facility] Comment:Fasting reference in terval BUN 15 7 - 25 mg/dL [facility] CREATININE 0.87 0.70 - 1.25 mg/dL [facility] Comment: For patients >49 years of age, the reference limit for Creatinine is approximately 13% higher for people identified as -Tristanian. GFR 94 > OR = 60 mL/min/1 .73m2 [facility] GFR, 109 > OR = 60 mL/min/1 .73m2 [facility] BUN/CREAT RATIO NOT APPLICABLE 6 - 22 (calc) [facility] SODIUM 142 135 - 146 mmol/L [facility] POTASSIUM 4.1 3.5 - 5.3 mmol/L [facility] CHLORIDE 102 98 - 110 mmol/L [facility] CO2 29 21 - 33 mmol/L [facility] CALCIUM 9.2 8.6 - 10.3 mg/dL [facility] TOTAL PROTEIN 6.9 6.1 - 8.1 g/dL [facility] ALBUMIN 4.2 3.6 - 5.1 g/dL [facility] GLOBULIN 2.7 1.9 - 3.7 g/dL (calc) [facility] ALBUMIN/GLOBULIN RATIO 1.6 1.0 - 2.5 (calc) [facility] BILIRUBIN TOTAL 0.7 0.2 - 1.2 mg/dL [facility] ALKALINE PHOSPHATASE 66 40 - 115 U/L [facility] AST 20 10 - 35 U/L [facility] ALT 25 9 - 60 U/L [facility] Comment: Test Performed at: [facility] [address] [place], [place] ??[address] MINO ZAMAN DO,MPH 07/16/2012 7:54 AM AIRLINE TICKET AGENT Ciro Fernandez DO CHEMISTRY ORDERABLES Performing Organization Address [facility] Phone Number INTERFACE SYSTEM Refer to clinic/hospital department [facility] [address] [place] [address] * (ABNORMAL) LIPID PANEL (07/16/2012 7:54 AM AIRLINE TICKET AGENT) CHOLESTEROL 154 125 - 200 mg/dL [facility] Comment: Test Performed at: [facility] [place], [place] ??[address] MINO ZAMAN DO,MPH HDL 39(L) > OR = 40 mg/dL [facility] TRIGLYCERIDE 128 <150 mg/dL [facility] LDL CALCULATED 89 <130 mg/dL (calc) [facility] Comment: Desirable range <100 mg/dL for patients with CHD or diabetes and <70 mg/dL for diabetic patients with known heart disease. CHOL/HDL RATIO 3.9 < OR = 5.0 (calc) [facility] TOTAL NON-HDL CHOL(LDL+VLDL) 115 mg/dL (calc) [facility] Comment: Target for non-HDL cholesterol is 30 mg/dL higher than LDL cholesterol target. 07/16/2012 7:54 AM AIRLINE TICKET AGENT Ciro Fernandez DO CHEMISTRY ORDERABLES Performing Organization Address [facility] de Phone Number INTERFACE SYSTEM Refer to clinic/hospital department [facility] [address] [place] [address] * PSA (07/16/2012 7:54 AM AIRLINE TICKET AGENT) PSA 0.3 < OR = 4.0 ng/mL [facility] Comment: This test was performed using the Siemens chemiluminescent method. Values obtained from different assay methods cannot be used interchangeably. PSA levels, regardless of value, should not be interpreted as absolute evidence of the presence or absence of disease. Test Performed at: [facility] [address] [place], [place] ??[address] MINO ZAMAN DO,MPH 07/16/2012 7:54 AM AIRLINE TICKET AGENT Ciro Fernandez DO CHEMISTRY ORDERABLES INTERFACE SYSTEM Refer to clinic/hospital department [facility] [address] [address] documented in this encounter Visit Diagnoses Not on filedocumented in this encounter
--- OUTSIDE RECORDS SUMMARY | 2024-08-19 14:00 | XMS_ITS | Encounter Summary ---
Author Organization [facility] Address [address] [place] [address] Care Team Providers Care Supervisor Photostat Name Role Phone Unavailable Primary Care Provider Unavailabl e Reason for Referral * Eval and Treat (Routine) - Closed Specialty Diagnoses / Procedures Referred By Contjeanie t Referred To Contact Otolaryngology Diagnoses Cough Ciro Fernandez DO [address] [facility] [address] [place] [address] Thierry Long MD [address] [place] [address] Referral ID Status Reason Start Date Expiration Date V isits Requested Visits Authorized [id number] Closed CRS To Schedule (STL) 07/26/2012 07/27/2013 1 1 UCT SAFETY TECHNICIAN Reason for Visit * Reason Comments Other spots on skin severa l months Encounter Details Date Type Department Care Team (Late st Contact Info) Description 07/26/2012 1:00 PM PRODUCT SAFETY TECHNICIAN Office Visit [facility] [address] [place] [address] Ciro Fernandez DO [address] [place] [address] Cough (Primary Dx); [place] (actinic [...] Comments Blood Pressure 116/64 07/26/2012 12:45 PM PRODUCT SAFETY TECHNICIAN Pulse 64 07/26/2012 12:45 PM PRODUCT SAFETY TECHNICIAN Temperature 36.6 ??C (97.8 ??F) 07/26/2012 12:[address] Respiratory Rate - - Oxygen Saturation - - Inhaled Oxygen Concentration - - Weight 98.9 kg (218 lb) 07/26/2012 12:45 PM PRODUCT SAFETY TECHNICIAN Height 180.3 cm (5' 11 ) 07/26/2012 12:45 PM PRODUCT SAFETY TECHNICIAN Body Mass Index 30.4 07/26/2012 12:45 PM PRODUCT SAFETY TECHNICIAN documented in this encounter Progress Notes [...] when he is talking. Went to the Insurance Business Analyst and studies/exam was normal. He is going [...] Ryder Long MD [place] (actinic keratosis) - LA DESTRUC PREMAL,FIRST LESION - [place] - LA DESTRUC BENIGN/PREMAL,2-14 LESIONS - [place] We have [...] skin lesions are reviewed with her today. UCT SAFETY TECHNICIAN documented in this encounter Plan of [...]
--- OUTSIDE RECORDS SUMMARY | 2024-08-19 14:00 | XMS_ITS | Encounter Summary ---
Author Organization [facility] Address [address] [place] [address] Care Team Providers Care Cartoon Animator Name Role Phone Unavailable Primary Care Provider Unavailabl e Reason for Visit * Reason Comments Nasal Congestion sinus pain , cough, 1week patient said the left side has more pressure Encounter Details Date Type Department Care Team (Late st Contact Info) Description 09/16/2012 11:45 AM BISCUIT FACTORY WORKER Office Visit [facility] - [facility] [address] [facility] [address] [place] [address] Ciro Fernandez, DO [address] [facility] [address] [place] [address] Acute sinusitis; Allergic rhinitis; Cough [...] Comments Blood Pressure 118/68 09/16/2012 11:26 AM BISCUIT FACTORY WORKER Pulse 68 09/16/2012 11:26 AM BISCUIT FACTORY WORKER Temperature 37 ??C (98.6 ??F) 09/16/2012 11:26 AM BISCUIT FACTORY WORKER Respiratory Rate - - Oxygen Saturation - - Inhaled Oxygen Concentration - - Weight 94.8 kg (209 lb) 09/16/2012 11:26 AM BISCUIT FACTORY WORKER Height 180.3 cm (5' 11 ) 09/16/2012 11:26 AM BISCUIT FACTORY WORKER Body Mass Index 29.15 09/16/2012 11:26 AM BISCUIT FACTORY WORKER documented in this encounter Progress Notes * [...] worsen or fail to improve as anticipated. UIT FACTORY WORKER documented in this encounter Plan of Treatment Not on file documented as of this encounter Visit Diagnoses Diagnosis Acute sinusitis Acute sinusitis, unspecified Allergic rhinitis Allergic rhinitis, cause unspecified Cough documented in this encounter
--- OUTSIDE RECORDS SUMMARY | 2024-08-19 14:00 | XMS_ITS | Encounter Summary ---
Author Organization [facility] Address [address] [place] [address] Care Team Providers Care Critical Care Rn Name Role Phone Unavailable Primary Care Provider Unavailabl e Reason for Visit * Reason Comments Medication Refill Encounter Details Date Type Department Care Team (Late st Contact Info) Description 01/26/2012 Refill [facility] Medicine - [facility] [address] [facility] [address] [place] [address] Ciro Fernandez, DO [address] [facility] [address] [place] [address] Social History Tobacco Use Types [...]
--- OUTSIDE RECORDS SUMMARY | 2024-08-19 14:00 | XMS_ITS | Encounter Summary ---
Author Organization [facility] Address [address] [facility] Attn: [place] [address] Care Team Providers Care Coal And Ash Supervisor Name Role Phone Unavailable Primary Care Provider Unavailabl e Encounter Details Date Type Department Care Team (Late st Contact Info) Description 10/03/2011 Outpatient Historical Initial Department [address] [place] [address] ATTN: [place] [address] Provider, Historical Social History Tobacco Use Types [...] Comments LIPID PANEL Routine 10/03/2011 7:35 AM CHILDCARE TEACHER COMPREHENSIVE METABOLIC PANEL Routine 10/03/2011 7:35 AM CHILDCARE TEACHER documented in this encounter Results * COMPREHENSIVE METABOLIC PANEL (10/03/2011 7:35 AM CHILDCARE TEACHER) [facility] GLUCOSE 98 65 - 99 mg/dL [facility] Comment:Fasting reference in terval BUN 19 7 - 25 mg/dL [facility] CREATININE 1.03 0.70 - 1.33 mg/dL [facility] Comment: For patients >49 years of age, the reference limit for Creatinine is approximately 13% higher for people identified as -Scottish. GFR 79 > OR = 60 mL/min/1 .73m2 [facility] GFR, 92 > OR = 60 mL/min/1 .73m2 [facility] BUN/CREAT RATIO NOT APPLICABLE 6 - 22 (calc) [facility] SODIUM 141 135 - 146 mmol/L [facility] POTASSIUM 4.5 3.5 - 5.3 mmol/L [facility] CHLORIDE 104 98 - 110 mmol/L [facility] CO2 25 21 - 33 mmol/L [facility] [employer] CALCIUM 9.6 8.6 - 10.3 mg/dL [facility] [employer] . [facility] TOTAL PROTEIN 7.0 6.2 - 8.3 g/dL [facility] ALBUMIN 4.4 3.6 - 5.1 g/dL [facility] [employer] [facility] GLOBULIN 2.6 2.1 - 3.7 g/dL (calc) [facility] [employer] [facility] ALBUMIN/GLOBULIN RATIO 1.7 1.0 - 2.1 (calc) [facility] BILIRUBIN TOTAL 0.7 0.2 - 1.2 mg/dL [facility] [employer] ALKALINE PHOSPHATASE 60 40 - 115 U/L [facility] [employer] [facility] AST 25 10 - 35 U/L [facility] ALT 38 9 - 60 U/L [facility] Comment: REPORT COMMENT: FASTING Test Performed at: [facility] [employer] ??[address] MINO ZAMAN DO,MPH 10/03/2011 7:35 AM CHILDCARE TEACHER Ciro Fernandez DO CHEMISTRY ORDERABLES Performing Organization Address City/State/[facility] Co de Phone Number INTERFACE SYSTEM Refer to clinic/hospital department [facility] [address] [place] [address] * LIPID PANEL (10/03/2011 7:35 AM CHILDCARE TEACHER) CHOLESTEROL 145 125 - 200 mg/dL [facility] Comment: Test Performed at: [facility] [employer] ??[address] MINO ZAMAN DO,MPH HDL 40 > OR = 40 mg/dL [facility] [employer] [facility] TRIGLYCERIDE 110 <150 mg/dL [facility] LDL CALCULATED 83 <130 mg/dL (calc) [facility] Comment: Desirable range <100 mg/dL for patients with CHD or diabetes and <70 mg/dL for diabetic patients with known heart disease. CHOL/HDL RATIO 3.6 < OR = 5.0 (calc) [facility] 10/03/2011 7:35 AM CHILDCARE TEACHER Ciro Fernandez DO CHEMISTRY ORDERABLES INTERFACE SYSTEM Refer to clinic/hospital department [facility] [address] [address] documented in this encounter Visit Diagnoses Not on filedocumented in this encounter
--- OUTSIDE RECORDS SUMMARY | 2024-08-19 14:00 | XMS_ITS | Encounter Summary ---
Author Organization [facility] Address [address] [place] [address] Care Team Providers Care Artificial Glass Eye Maker Name Role Phone Unavailable Primary Care Provider Unavailabl e Encounter Details Date Type Department Care Team (Late st Contact Info) Description 12/25/2011 Abstract [facility] Medicine - [facility] Kw[facility]ena [address] [facility] [address] [place] [address] Ciro Fernandez, DO [address] [facility] [address] [place] [address] Social History Tobacco Use Types [...]
--- OUTSIDE RECORDS SUMMARY | 2024-08-19 14:00 | XMS_ITS | Encounter Summary ---
Author Organization [facility] Address [address] [place] [address] Care Team Providers Care Material Carrier Name Role Phone Unavailable Primary Care Provider Unavailabl e Reason for Visit * Reason Onset Date Comments Results 06/10/2012 Encounter Details Date Type Department Care Team (Late st Contact Info) Description 06/10/2012 Telephone [facility] Family Medicine - [facility] [address] [facility] [address] [place] [address] Ciro Fernandez, DO [address] [facility] [address] [place] [address] Results Social History Tobacco Use [...]
--- OUTSIDE RECORDS SUMMARY | 2024-08-19 14:00 | XMS_ITS | Encounter Summary ---
Author Organization [facility] Address [address] [place] [address] Care Team Providers Care Computer Equipment Repairer Name Role Phone Unavailable Primary Care Provider Unavailabl e Reason for Referral * Outpatient Services (Routine) - Closed Specialty Diagnoses / Procedures Referred By Contjeanie t Referred To Contact Pulmonology Diagnoses Chronic cough Procedures PULMONARY FUNCTION TEST Ciro Fernandez DO [address] [facility] [address] [place] [address] Referral ID Status Reason Start Date Expiration Date Visits Re quested Visits Authorized [id number] Closed 06/23/2012 06/23/2013 1 1 PARTER Reason for Visit * Reason Onset Date Comments Needs Orders Written 06/22/2012 Encounter Details Date Type Department Care Team (Late st Contact Info) Description 06/22/2012 Telephone [facility] Family Medicine - [facility] [address] [facility] [address] [place] [address] Ciro Fernandez DO [address] [facility] [address] [place] [address] Needs Orders Written Social History [...] 06/23/2012 10:02 AM CST New order submitted. PARTER * Telephone Encounter - Jennifer Burnett Osmar - 06/22/2012 3:30 PM CST [facility] [id number] THE ORDER FOR THE PFT 13, WAS PUT IN A NORMAL ORDER AND ITNEEDS TO BE REMOVED AND PUT IN A FUTURE ORDER , THE ICD9 CODE 786.2 WONT ALLOW A FULL PFT ONLY PART OF IT, IF DR CAN CHANGE ACCORDINGLY PARTER documented in this encounter Plan of Treatment Not on file documented as of this encounter Results * PULMONARY FUNCTION TEST (07/10/2012 11:13 AM MOLD PARTER) Narrative Transcriptions Aguila Fabian MD - 07/09/2012 4:57 PM CST [place], [place] [address] Pulmonary Function Test CSN: [id number] DATE OF SERVICE: REASON Chronic cough. This is a technically adequate study. The FVC is mildly reduced. TheFEV1 and FEV1% are normal. TLC is at the lower limits of normal. IMPRESSION There is no obstructive or restrictive ventilatory defect. Diffusingcapacity is within normal limits. SP:MEDQ DID:[id number] Dictated by: Aguila Fabian MD cc: Ciro Fernandez D.O. Ciro Fernandez DO PFT ORDERABLES EXTERNAL LAB documented in this encounter Visit Diagnoses Diagnosis Chronic cough- Primary Cough Chronic cough Cough documented in this encounter
--- OUTSIDE RECORDS SUMMARY | 2024-08-19 14:00 | XMS_ITS | Encounter Summary ---
Author Organization [facility] Address [address] [place] [address] Care Team Providers Care Sound Effects Person Name Role Phone Unavailable Primary Care Provider Unavailabl e Reason for Visit * Reason Onset Date Comments Medication Refill 12/30/2011 Encounter Details Date Type Department Care Team (Late st Contact Info) Description 12/30/2011 Refill [facility] Family Medicine - [facility] Abundio Yuan [address] [facility] [address] [place] [address] Ciro Fernandez, DO 107 [facility] [address] [place] [address] Social History Tobacco Use Types [...]
--- OUTSIDE RECORDS SUMMARY | 2024-08-19 14:00 | XMS_ITS | Encounter Summary ---
Author Organization [facility] Address [address] [place] [address] Care Team Providers Care Account Developer Name Role Phone Unavailable Primary Care Provider Unavailabl e Reason for Visit * Reason Onset Date Comments Medication Refill 10/13/2012 Encounter Details Date Type Department Care Team (Late st Contact Info) Description 10/13/2012 Refill [facility] [address] [place] [address] Bobo Archer Provider Social History Tobacco Use [...] 10/13/2012 10:29 AM CSTFrom: BRENDON ALDANA Sent: [facility] Oct 13, 2012 8:39 AM Subject: Medication Renewal Request Brendon Aldana would like a refill of the following medications: Preferred pharmacy: [facility] Comment: I need a refill prescription for Losartan-Hctz 50-12.5mg Tab. [facility] and it needs to be written as a 90 day prescription. Thank you. Other - see comments for explanation OL CUSTODIAN documented in this encounter Plan of Treatment Not on file documented as of this encounter Visit Diagnoses Not on filedocumented in this encounter
--- OUTSIDE RECORDS SUMMARY | 2024-08-19 14:00 | XMS_ITS | Encounter Summary ---
Author Organization [facility] Address [address] [place] [address] Care Team Providers Care Social Research Assistant Name Role Phone Unavailable Primary Care Provider Unavailabl e Reason for Visit * Reason Comments Sinus Pain ap, cough x 1wk Encounter Details Date Type Department Care Team (Late st Contact Info) Description 08/04/2011 3:15 PM ROUND CUTTER OPERATOR Office Visit [facility] [address] [facility] [address] [place] [address] Ciro Fernandez, DO [address] [facility] [address] [place] [address] Acute sinusitis; Acute URI Social [...] Comments Blood Pressure 118/70 08/04/2011 3:11 PM ROUND CUTTER OPERATOR Pulse 80 08/04/2011 3:11 PM ROUND CUTTER OPERATOR Temperature 36.6 ??C (97.8 ??F) 08/04/2011 3:11 PM CS T Respiratory Rate - - Oxygen Saturation - - Inhaled Oxygen Concentration - - Weight 101.2 kg (223 lb) 08/04/2011 3:11 PM ROUND CUTTER OPERATOR Height 177.8 cm (5' 10 ) 08/04/2011 3:11 PM ROUND CUTTER OPERATOR Body Mass Index 32 08/04/2011 3:11 PM ROUND CUTTER OPERATOR documented in this encounter Progress Notes [...] worsen or fail to improve as anticipated. D CUTTER OPERATOR documented in this encounter Plan of Treatment Not on file documented as of this encounter Visit Diagnoses Diagnosis Acute sinusitis Acute sinusitis, unspecified Acute URI Acute upper respiratory infections of unspecified site documented in this encounter
--- OUTSIDE RECORDS SUMMARY | 2024-08-19 14:00 | XMS_ITS | Encounter Summary ---
Author Organization [facility] [address] [place] [address] Care Team Providers Care Convention Worker Name Role Phone Unavailable Primary Care Provider Unavailabl e Reason for Referral * Outpatient Services (Routine) - Closed Specialty Diagnoses / Procedures Referred By Contac t Referred To Contact Pulmonology Diagnoses RENAE (dyspnea on exertion) Procedures BRONCHIAL CHALLENGE WITH METHACHOLINE Chidi Charles MD [address] [place] [address] Referral ID Status Reason Start Date Expiration Date Visits Re quested Visits Authorized [id number] Closed 07/12/2012 07/12/2013 1 1 NOPATHOLOGIST Reason for Visit * Reason Comments Cough Shortness of Breath * Eval and Treat (Routine) - Closed Specialty Diagnoses / Procedures Referred By Contac t Referred To Contact Pulmonology Diagnoses Chronic cough Ciro Fernandez, DO [address] [facility] [address] [place] [address] [facility] [address] [place] [address] Referral ID Status Reason Start Date Expiration Date V isits Requested Visits Authorized [id number] Closed CRS To Schedule (STL) 06/21/2012 06/21/2013 1 1 Encounter Details Date Type Department Care Team (Late st Contact Info) Description 07/12/2012 3:30 PM IMMUNOPATHOLOGIST Office Visit [facility] Pulmonology [facility] [address] [place] [phone] Chidi Charles MD [address] [place] [address] Cough (Primary Dx); RENAE (dyspnea [...] Comments Blood Pressure 118/78 07/12/2012 2:46 PM IMMUNOPATHOLOGIST Pulse 76 07/12/2012 2:46 PM IMMUNOPATHOLOGIST Temperature - - Respiratory Rate 16 07/12/2012 2:46 PM IMMUNOPATHOLOGIST Oxygen Saturation 95% 07/12/2012 2:46 PM IMMUNOPATHOLOGIST RA Inhaled Oxygen Concentration - - Weight 97.5 kg (215 lb) 07/12/2012 2:46 PM IMMUNOPATHOLOGIST Height 180.3 cm (5' 11 ) 07/12/2012 2:46 PM IMMUNOPATHOLOGIST Body Mass Index 29.99 07/12/2012 2:46 PM IMMUNOPATHOLOGIST documented in this encounter Progress Notes * [...] on exertion. 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 DATE OF TEST 07/20/2012. INTERPRETATION Methacholine challenge testing was performed using sequential spirometrywith serial dilutions of methacholine. There was no evidence of a significant decline in the FEV-1, correspondingto a PD20 FEV-1 of greater than 32 mg/mL. IMPRESSION Negative methacholine challenge test with no demonstrable airwayhyperresponsiveness. DED:MEDQ DID:[id number] Dictated by: Chidi Charles M.D. Chidi Charles MD PFT ORDERABLES EXTERNAL LAB documented in this encounter Visit Diagnoses Diagnosis Cough- Primary RENAE (dyspnea on exertion) Other dyspnea and respiratory abnormality Allergic rhinitis, cause unspecified RENAE (dyspnea on exertion) Other dyspnea and respiratory abnormality documented in this encounter
--- OUTSIDE RECORDS SUMMARY | 2024-08-19 14:00 | XMS_ITS | Encounter Summary ---
Author Organization [facility] Address [address] [place] [address] Care Team Providers Care Managed Security Sales Consultant Name Role Phone Unavailable Primary Care Provider Unavailabl e Reason for Visit * Reason Comments Follow Up RESULTS TO BRONCHIAL CHALLENGE WITH METHACHOLINE Encounter Details Date Type Department Care Team (Late st Contact Info) Description 07/25/2012 1:45 PM SHUTDOWN COORDINATOR Office Visit [facility] Pulmonology [facility] [address] [place] [address] Chidi Charles MD [address] [place] [address] Cough (Primary Dx); GERD (gastroesophageal [...] Comments Blood Pressure 124/68 07/25/2012 1:14 PM SHUTDOWN COORDINATOR Pulse 71 07/25/2012 1:14 PM SHUTDOWN COORDINATOR Temperature - - Respiratory Rate 20 07/25/2012 1:14 PM SHUTDOWN COORDINATOR Oxygen Saturation 97% 07/25/2012 1:14 PM SHUTDOWN COORDINATOR RA Inhaled Oxygen Concentration - - Weight 98.4 kg (217 lb) 07/25/2012 1:14 PM SHUTDOWN COORDINATOR Height 180.3 cm (5' 11 ) 07/25/2012 1:14 PM SHUTDOWN COORDINATOR Body Mass Index 30.27 07/25/2012 1:14 PM SHUTDOWN COORDINATOR documented in this encounter Progress Notes * [...] DISCONTD: mometasone (NASONEX) 50 mcg/actuation Both Nostril [place] Administer 2 Sprays in each nostril daily. [...] Critical Care, Neurocritical Care & Sleep Medicine [facility], [place] [address] Off: [phone] Pager: [phone] DOWN COORDINATOR documented in this encounter Plan of Treatment Not on file documented as of this encounter Visit Diagnoses Diagnosis Cough- Primary GERD (gastroesophageal reflux disease) Esophageal reflux documented in this encounter
--- OUTSIDE RECORDS SUMMARY | 2024-08-19 14:00 | XMS_ITS | Encounter Summary ---
Author Organization [facility] Address [address] [place] [address] Care Team Providers Care Portable Power Tool Repairer Name Role Phone Unavailable Primary Care Provider Unavailabl e Reason for Referral * Outpatient Services (Routine) - Closed Specialty Diagnoses / Procedures Referred By Georgie gallagher Referred To Contact Pulmonology Diagnoses RENAE (dyspnea on exertion) Procedures BRONCHIAL CHALLENGE WITH METHACHOLINE Chidi Charles MD [address] [place] [address] Referral ID Status Reason Start Date Expiration Date Visits Re quested Visits Authorized [id number] Closed 07/12/2012 07/12/2013 1 1 ER/WAITRESS INFORMAL Reason for Visit * Outpatient Services (Routine) - Closed Specialty Diagnoses / Procedures Referred By Contac t Referred To Contact Pulmonology Diagnoses RENAE (dyspnea on exertion) Procedures BRONCHIAL CHALLENGE WITH METHACHOLINE Chidi Charles MD [address] [place] [address] Referral ID Status Reason Start Date Expiration Date Visits Re quested Visits Authorized [id number] Closed 07/12/2012 07/12/2013 1 1 Encounter Details Date Type Department Care Team (Latest Contact Info) Description 07/20/2012 3:11 PM WAITER/WAITRESS INFORMAL - 07/20/2012 11:59 PM WAITER/WAITRESS INFORMAL Hospital Encounter [facility] Pulmonary Function [facility] [place] [facility] [address] [place] [address] Chidi Charles MD [address] [place] [address] Discharge Disposition: Home or Self [...] Date mometasone (NASONEX) 50 mcg/actuation Both Nostril [place] Administer 2 Sprays in each nostril daily. [...] AM CSTAssociated Order(s): BRONCHIAL CHALLENGE WITH METHACHOLINE [place], [place] [address] Pulmonary Function Test CSN: [id number] DATE OF SERVICE: 07/20/2012 METHACHOLINE CHALLENGE TEST. DATE OF TEST 07/20/2012. INTERPRETATION Methacholine challenge testing was performed using sequential spirometry with serial dilutions of methacholine. There was no evidence of a significant decline in the FEV-1, corresponding to a PD20 FEV-1 of greater than 32 mg/mL. IMPRESSION Negative methacholine challenge test with no demonstrable airway hyperresponsiveness. DED:MEDQ DID: [id number] Dictated by: Chidi Charles M.D. ER/WAITRESS INFORMAL documented in this encounter Plan of Treatment Not on file documented as of this encounter Procedures Procedure Name Priority Date/Time Associated Diagnosis Comments BRONCHIAL INHALATION CHALLENGE Routine 07/21/2012 7:05 AM WAITER/WAITRESS INFORMAL RENAE (dyspnea on exertion) documented in this encounter Results * BRONCHIAL CHALLENGE WITH METHACHOLINE (07/21/2012 7:05 AM WAITER/WAITRESS INFORMAL) Narrative Transcriptions Chidi Charles MD - 07/21/2012 12:15 AM CST [place], [place] [address] Pulmonary Function Test CSN: [id number] DATE OF SERVICE: 07/20/2012 METHACHOLINE CHALLENGE TEST. DATE OF TEST 07/20/2012. INTERPRETATION Methacholine challenge testing was performed using sequential spirometrywith serial dilutions of methacholine. There was no evidence of a significant decline in the FEV-1, correspondingto a PD20 FEV-1 of greater than 32 mg/mL. IMPRESSION Negative methacholine challenge test with no demonstrable airwayhyperresponsiveness. DED:MEDQ DID:[id number] Dictated by: Chidi Charles M.D. Chidi Charles MD PFT ORDERABLES EXTERNAL LAB documented in this encounter Visit Diagnoses Diagnosis RENAE (dyspnea on exertion) Other dyspnea and respiratory abnormality documented in this encounter
--- OUTSIDE RECORDS SUMMARY | 2024-08-19 14:00 | XMS_ITS | Encounter Summary ---
Author Organization [facility] Address [address] [place] [address] Care Team Providers Care Automotive Sales Associate Name Role Phone Unavailable Primary Care Provider Unavailabl e Reason for Visit * Reason Comments Physical Encounter Details Date Type Department Care Team (Late st Contact Info) Description 12/23/2011 3:00 PM CDT Office Visit [facility] Medicine - [facility] [address] [facility] [address] [place] [address] Ciro Fernnadez, DO [address] [facility] [address] [place] [address] Well adult exam (Primary Dx); Actinic keratosis; Screening for prostate cancer; Screen for colon cancer Social History Tobacco [...] Reading Time Taken Comments Blood Pressure 118/70 12/23/2011 2:58 PM CDT Pulse 84 12/23/2011 2:58 PM CDT Temperature 36.6 ??C (97.9 ??F) 12/23/2011 2:58 PM CD T Respiratory Rate - - Oxygen Saturation - - Inhaled Oxygen Concentration - - Weight 97.3 kg (214 lb 8 oz) 12/23/2011 2:58 PM CDT Height 177.8 cm (5' 10 ) 12/23/2011 2:58 PM CDT Body Mass Index 30.78 12/23/2011 2:58 PM CDT documented in this encounter Progress Notes * Ciro Fernandez, DO - 12/23/2011 3:32 PM CDT Subjective: Brendon Aldana is a 61 y.o. male. Pt is here for a well adult visit. Preventative health discussed and documented HPI: Mr. Aldana also complains of the following (by systems): Irritated areas of bilateral ears this his noticed over the last few months. He is out in the sun a lot, but does not wear UV protection. Review of Systems: ROS: Psychological ROS: negative [...] Except for as listed above. Exam/Objective: BP 118/70 Pulse 84 Temp(Src) 97.9 ??F (36.6 ??C) (Temporal) Ht 5' 10 (1.778 m) Wt 214 lb 8oz (97.297 kg) BMI 30.78 kg/m2 Appearance: alert, well appearing, and in no distress. Skin: +left superior portion of the ear with scaling inflamed plaque. +right tip of ear with erythematous irritated plaque. No unusual rashes or suspicious skin lesions [...] orders for this visit: Well adult exam Actinic keratosis - 49006 - DESTRUCT PREMALIGNANT LESION, FIRST LESION - 20902 - DESTRUCT PREMALIGNANT LESIONS, 2-14 LESIONS 1. The etiology and natural history has been discussed. 2. Various treatment methods, side effects and failure rates have been discussed. 3. A choice of liquid nitrogen was made, and the expected blistering or scabbing reaction explained. 4. Liquid nitrogen was applied to 2 AK(s) for three 5 second freeze/thaw cycles. Screening for prostate cancer - PSA; Future Screen for colon cancer - POC OCCULT BLOOD UP TO 3 CARDS Other Orders - LIPID PANEL; Future - COMPREHENSIVE METABOLIC PANEL; Future - PROTEIN , RANDOM URINE; Future - tadalafil (CIALIS) 20 mg Oral tablet; Take 1 Tab by mouth 1 time daily as needed for Other (See Comment). Healthy Male Appropriate patient instructions provided. Follow-up [...] OCCULT BLOOD UP TO 3 CARDS Routine 12/23/2011 3:38 PM CDT Screen for colon cancer documented in this encounter Results * POC OCCULT BLOOD UP TO 3 CARDS (12/23/2011 3:38 PM CDT) OCCULT BLOOD #1 Negative [facility] OCCULT BLOOD #2 [facility] OCCULT BLOOD #3 [facility] Stool specimen (specimen) Ciro Fernandez DO POINT OF CARE [facility] documented in this encounter Visit Diagnoses Diagnosis Well adult exam- Primary Routine general medical examination at a health care facility Actinic keratosis Screening for prostate cancer Special screening for malignant neoplasm of prostate Screen for colon cancer Special screening for malignant neoplasms, colon documented in this encounter
--- OUTSIDE RECORDS SUMMARY | 2024-08-19 14:00 | XMS_ITS | Encounter Summary ---
Author Organization [facility] Address [address] [place] [address] Care Team Providers Care Railroad Baggage Porter Name Role Phone Unavailable Primary Care Provider Unavailabl e Reason for Visit * Reason Onset Date Comments Medication Refill 12/07/2012 Encounter Details Date Type Department Care Team (Late st Contact Info) Description 12/07/2012 Refill [facility] Medicine - [facility] [address] [place] [address] Ciro Fernandez, DO [address] [facility] [address] [place] [address] Social History Tobacco Use Types [...]
--- OUTSIDE RECORDS SUMMARY | 2024-08-19 14:00 | XMS_ITS | Encounter Summary ---
Author Organization [facility] Address [address] [place] [address] Care Team Providers Care Ladle Repairman Name Role Phone Unavailable Primary Care Provider Unavailabl e Reason for Visit * Reason Onset Date Comments Cough 06/08/2012 Encounter Details Date Type Department Care Team (Late st Contact Info) Description 06/08/2012 Telephone [facility] Family Medicine - [facility] [address] [facility] [address] [place] [address] Ciro Fernandez, DO [address] [facility] [address] [place] [address] Cough Social History Tobacco Use [...]
--- OUTSIDE RECORDS SUMMARY | 2024-08-19 14:00 | XMS_ITS | Encounter Summary ---
Author Organization [facility] [address] [place] [address] Care Team Providers Care Guest Services Ambassador Name Role Phone Unavailable Primary Care Provider Unavailabl e Reason for Referral * Eval and Treat (Routine) - Closed Specialty Diagnoses / Procedures Referred By Contac t Referred To Contact Pulmonology Diagnoses Chronic cough Ciro Fernandez DO [address] [facility] [address] [place] [address] [facility] [place] [address] Referral ID Status Reason Start Date Expiration Date V isits Requested Visits Authorized Closed CRS To Schedule (STL) 06/21/2012 06/21/2013 1 1 Scheduling Instructions Please contact patient on Work phone number DATION TECHNICIAN * Outpatient Services (Routine) - Closed Specialty Diagnoses / Procedures Referred By Contac t Referred To Contact Pulmonology Diagnoses Chronic cough Procedures PULMONARY FUNCTION TEST Ciro Fernandez DO [address] [facility] [address] [place] [address] Referral ID Status Reason Start Date Expiration Date Visits Re quested Visits Authorized Closed 06/21/2012 06/21/2013 1 1 DATION TECHNICIAN Reason for Visit * Reason Onset Date Comments Cough 06/21/2012 Encounter Details Date Type Department Care Team (Late st Contact Info) Description 06/21/2012 Telephone [facility] [address] [facility] [address] [place] [phone] Ciro Fernandez, DO [address] [facility] [address] [place] [address] Cough Social History Tobacco Use Types Packs/Day [...] Patient notified. Test and Amb referral sent. DATION TECHNICIAN * Telephone Encounter - Marine Barrett - 06/21/2012 10:[address] Fernandez told patient to call back today to let him know how the Advair is working for him. He thinks is working ok. He doesn't think its done everything it was supposed to do. DATION TECHNICIAN documented in this encounter Plan of [...]
--- OUTSIDE RECORDS SUMMARY | 2024-08-19 14:00 | XMS_ITS | Encounter Summary ---
Author Organization [facility] Address [address] [place] [address] Care Team Providers Care Director Business Integration Name Role Phone Unavailable Primary Care Provider Unavailabl e Reason for Referral * Outpatient Services (Routine) - Closed Specialty Diagnoses / Procedures Referred By Contac t Referred To Contact Pulmonology Diagnoses Chronic cough Procedures PULMONARY FUNCTION TEST Ciro Fernandez DO [address] [place] [address] Referral ID Status Reason Start Date Expiration Date Visits Re quested Visits Authorized [id number] Closed 06/23/2012 06/23/2013 1 1 IVER Reason for Visit * Outpatient Services (Routine) - Closed Specialty Diagnoses / Procedures Referred By Contac t Referred To Contact Pulmonology Diagnoses Chronic cough Procedures PULMONARY FUNCTION TEST Ciro Fernandez DO [address] [place] [address] Referral ID Status Reason Start Date Expiration Date Visits Re quested Visits Authorized [id number] Closed 06/23/2012 06/23/2013 1 1 Encounter Details Date Type Department Care Team (Latest Contact Info) Description 07/05/2012 2:51 PM RECEIVER - 07/05/2012 11:59 PM RECEIVER Hospital Encounter [facility] Pulmonary Function [facility] [place] [facility] [address] [place] [address] Ciro Fernandez DO [address] [place] [address] Discharge Disposition: Home or Self Care [...] 4:57 PM CSTAssociated Order(s): PULMONARY FUNCTION TEST [place], [place] [address] Pulmonary Function Test CSN: [id number] DATE OF SERVICE: REASON Chronic cough. This is a technically adequate study. The FVC is mildly reduced. The FEV1 and FEV1% are normal. TLCis at the lower limits of normal. IMPRESSION There is no obstructive or restrictive ventilatory defect. Diffusing capacity is within normal limits. SP:MEDQ DID: [id number] Dictated by: Aguila Fabian MD cc: Ciro Fernandez D.O. IVER documented in this encounter Plan of Treatment Not on file documented as of this encounter Procedures Procedure Name Priority Date/Time Associated Diagnosis Comments PULMONARY FUNCTION TEST Routine 07/10/2012 11:13 AM RECEIVER Chronic cough documented in this encounter Results * PULMONARY FUNCTION TEST (07/10/2012 11:13 AM RECEIVER) Narrative Transcriptions Aguila Fabian MD - 07/09/2012 4:57 PM CST [place], [place] [address] Pulmonary Function Test CSN: [id number] DATE OF SERVICE: REASON Chronic cough. This is a technically adequate study. The FVC is mildly reduced. TheFEV1 and FEV1% are normal. TLC is at the lower limits of normal. IMPRESSION There is no obstructive or restrictive ventilatory defect. Diffusingcapacity is within normal limits. SP:MEDQ DID:[id number] Dictated by: Aguila Fabian MD cc: Ciro Fernandez D.O. Ciro Fernandez DO PFT ORDERABLES EXTERNAL LAB documented in this encounter Visit Diagnoses Diagnosis Chronic cough Cough documented in this encounter
--- OUTSIDE RECORDS SUMMARY | 2024-08-19 14:00 | XMS_ITS | Encounter Summary ---
Author Organization [facility] Address [address] [place] [address] Care Team Providers Care Refrigerated National Truck Driver Name Role Phone Unavailable Primary Care Provider Unavailabl e Reason for Visit * Reason Onset Date Comments Medication Refill 04/05/2012 Encounter Details Date Type Department Care Team (Late st Contact Info) Description 04/05/2012 Refill Central [facility] [address] [place] [address] Bobo Archer Provider Social History Tobacco Use [...] of the following medications: Preferred pharmacy: [facility] Comment: I need a new rx for Losartan-HCTZ 50-12.5 mg Tab. This needs to be a 90 day rx sent to [facility]. Thank you. Other - see comments for explanation documented in this encounter Plan of Treatment Not on file documented as of this encounter Visit Diagnoses Not on filedocumented in this encounter
--- OUTSIDE RECORDS SUMMARY | 2024-08-19 14:00 | XMS_ITS | Encounter Summary ---
Author Organization [facility] Address [address] [place] [address] Care Team Providers Care Abrasive Wheel Molder Name Role Phone Unavailable Primary Care Provider Unavailabl e Reason for Visit * Reason Onset Date Comments Results 10/05/2011 Encounter Details Date Type Department Care Team (Late st Contact Info) Description 10/05/2011 Telephone [facility] Family Medicine - [facility] [address] [facility] [address] [place] [address] Ciro Fernandez, DO [address] [facility] [address] [place] [address] Results Social History Tobacco Use [...] * Telephone Encounter - Jennifer Burnett - 10/05/2011 1:24 PM CST LM W/ FEMALE WITH THIS INFO/SB LER BRAKE LINING * Telephone Encounter - Jenniefr Burnett - 10/05/2011 1:23 PM CST Message copied by JENNIFER BURNETT on WedOct 05, 2011 1:23 PM ------ Message from: SARAH FERNANDEZ Created: Damari Oct 04, 2011 6:30 PM Your laboratory studies have been received, please return to office for a follow up examination. Overall your labs are in normal range. Please f/u for your annual physical exam. LER BRAKE LINING documented in this encounter Plan of Treatment Not on file documented as of this encounter Visit Diagnoses Not on filedocumented in this encounter
--- OUTSIDE RECORDS SUMMARY | 2024-08-19 14:00 | XMS_ITS | Encounter Summary ---
Author Organization [facility] Address [address] [place] [address] Care Team Providers Care Franchise Business Consultant Name Role Phone Unavailable Primary Care Provider Unavailabl e Encounter Details Date Type Department Care Team (Late st Contact Info) Description 07/11/2012 Orders Only [facility] Medicine [facility] [address] [facility] [address] [place] [address] Provider, Abstract NO ADDRESS ON [...]
--- OUTSIDE RECORDS SUMMARY | 2024-08-19 14:00 | XMS_ITS | Encounter Summary ---
Author Organization [facility] Address [address] [place] [address] Care Team Providers Care Project Engineering Manager Name Role Phone Unavailable Primary Care Provider Unavailabl e Reason for Visit * Reason Onset Date Comments Medication Refill 08/24/2012 Encounter Details Date Type Department Care Team (Late st Contact Info) Description 08/24/2012 Refill [facility] Medicine - [facility] [address] [facility] [address] [place] [address] Ciro Fernandez, DO [address] [facility] [address] [place] [address] Esophageal reflux (Primary Dx) Social [...]
--- OUTSIDE RECORDS SUMMARY | 2024-08-19 14:00 | XMS_ITS | Encounter Summary ---
Author Organization [facility] Address [address] [place] [address] Care Team Providers Care Commercial Ocean Clammer Name Role Phone Unavailable Primary Care Provider Unavailabl e Reason for Visit * Reason Onset Date Comments Medication Problem 03/22/2012 Encounter Details Date Type Department Care Team (Late st Contact Info) Description 03/22/2012 Telephone [facility] Family Medicine - [facility] Abundio Yuan [address] [facility] [address] [place] [address] Ciro Fernandez, DO [address] [facility] [address] [place] [address] Medication Problem Social History Tobacco [...] 03/22/2012 9:28 AM CDT PT LIVES IN [place], CAN HE PLEASE HAVE THE SCRIPT CALLED OUT? WE HAVE BEFORE documented in this encounter Plan of Treatment Not on file documented as of this encounter Visit Diagnoses Not on filedocumented in this encounter
--- OUTSIDE RECORDS SUMMARY | 2024-08-19 14:00 | XMS_ITS | Encounter Summary ---
Author Organization [facility] Address [address] [place] [address] Care Team Providers Care Preparatory Technician Name Role Phone Unavailable Primary Care Provider Unavailabl e Reason for Visit * Reason Onset Date Comments Medication Reaction 05/18/2012 Encounter Details Date Type Department Care Team (Late st Contact Info) Description 05/18/2012 Telephone [facility] Family [facility] - [facility] Abundio Yuan [address] [facility] [address] [place] [address] Ciro Simmons, DO [address] [facility] [address] [place] [address] Medication Reaction Social History Tobacco [...]
--- OUTSIDE RECORDS SUMMARY | 2024-08-19 14:00 | XMS_ITS | Encounter Summary ---
Author Organization [facility] Address [address] [place] [address] Care Team Providers Care Rn Flight Name Role Phone Unavailable Primary Care Provider Unavailabl e Reason for Visit * Reason Onset Date Comments Medication Refill 12/19/2011 Encounter Details Date Type Department Care Team (Late st Contact Info) Description 12/19/2011 Refill [facility] Family Medicine - [facility] [address] [facility] [address] [place] [address] Ciro Fernandez DO 107 [facility] [address] [place] [address] Social History Tobacco Use Types [...] Preferred pharmacy: [facility] Comment: documented in this encounter Plan of Treatment Not on file documented as of this encounter Visit Diagnoses Not on filedocumented in this encounter
--- OUTSIDE RECORDS SUMMARY | 2024-08-19 14:01 | XMS_ITS | Encounter Summary ---
Author Organization [facility] Address [address] [place] [address] Care Team Providers Care Botanical Technical Officer Name Role Phone Unavailable Primary Care Provider Unavailabl e Encounter Details Date Type Department Care Team (Late st Contact Info) Description 09/19/2010 Abstract [facility] Medicine - [facility] [address] [facility] [address] [place] [address] Ciro Fernandez, DO 107 [facility] [address] [place] [address] Social History Tobacco Use Types [...]
--- OUTSIDE RECORDS SUMMARY | 2024-08-19 14:01 | XMS_ITS | Encounter Summary ---
Author Organization [facility] Address [address] [place] [address] Care Team Providers Care Line Clearance Foreman Name Role Phone Unavailable Primary Care Provider Unavailabl e Reason for Visit * Reason Comments Lesions on right hand Moles neck Encounter Details Date Type Department Care Team (Late st Contact Info) Description 05/26/2010 2:30 PM CDT Office Visit [facility] Medicine - [facility] [address] [facility] [address] [place] [address] Ciro Fernandez DO [address] [facility] [address] [place] [address] [place] (actinic keratosis) (Primary Dx); [...] several years. He previously went to a hiv prevention specialist and diagnosed with actinic keratosis. Previously attempted [...]
--- OUTSIDE RECORDS SUMMARY | 2024-08-19 14:01 | XMS_ITS | Encounter Summary ---
Author Organization [facility] Address [address] [place] [address] Care Team Providers Care Propulsion Motor And Generator Repairer Name Role Phone Unavailable Primary Care Provider Unavailabl e Reason for Visit * Reason Onset Date Comments Blood Pressure Check 09/15/2010 Encounter Details Date Type Department Care Team (Late st Contact Info) Description 09/15/2010 Telephone [facility] Family Medicine - [facility] Abundio Yuan [address] [facility] [address] [place] [address] Ciro Fernandez, DO 107 [facility] [address] [place] [address] Blood Pressure Check Social History [...] can put plain Benicaron hold for now. ERTY INSURANCE CLAIMS EXAMINER documented in this encounter Plan of Treatment Not on file documented as of this encounter Visit Diagnoses Not on filedocumented in this encounter
--- OUTSIDE RECORDS SUMMARY | 2024-08-19 14:01 | XMS_ITS | Encounter Summary ---
Author Organization [facility] Address [address] [place] [address] Care Team Providers Care Biosecurity Officer Name Role Phone Unavailable Primary Care Provider Unavailabl e Encounter Details Date Type Department Care Team (Latest Contact Info) Description 12/05/2009 4:49 PM CDT - 12/05/2009 11:59 PM CDT Hospital Encounter [facility] Imaging Services [facility] 107 [facility] [address] [place] [address] Ciro Fernandez, 107 [facility] [address] [place] [address] Discharge Disposition: Home or Self [...]
--- OUTSIDE RECORDS SUMMARY | 2024-08-19 14:01 | XMS_ITS | Encounter Summary ---
Author Organization [facility] Address [address] [place] [address] Care Team Providers Care Air Control/Anti Air Warfare Officer Name Role Phone Unavailable Primary Care Provider Unavailabl e Reason for Visit * Reason Onset Date Comments Results 12/03/2008 LABS Encounter Details Date Type Department Care Team (Late st Contact Info) Description 12/03/2008 Telephone [facility] Family Medicine - [facility] Kwabena [address] [facility] [address] [place] [address] Ciro Fernandez, DO [address] [facility] [address] [place] [address] Results (LABS) Social History Tobacco [...]
--- OUTSIDE RECORDS SUMMARY | 2024-08-19 14:01 | XMS_ITS | Encounter Summary ---
Author Organization [facility] Address [address] [place] [address] Care Team Providers Care Production Assembly Supervisor Name Role Phone Unavailable Primary Care Provider Unavailabl e Reason for Visit * Reason Onset Date Comments Medication Refill 01/14/2009 Encounter Details Date Type Department Care Team (Late st Contact Info) Description 01/14/2009 Refill [facility] Medicine - [facility] Lilia Kwabena [address] [facility] [address] [place] [address] Ciro Fernandez, DO 107 [facility] L[facility] [address]UR[address]O [address] [place] [address] Social History Tobacco [...]
--- OUTSIDE RECORDS SUMMARY | 2024-08-19 14:01 | XMS_ITS | Encounter Summary ---
Author Organization [facility] Address [address] [place] [address] Care Team Providers Care Store Director Name Role Phone Unavailable Primary Care Provider Unavailabl e Reason for Visit * Reason Comments Follow Up medication Encounter Details Date Type Department Care Team (Late st Contact Info) Description 01/02/2009 10:45 AM CDT Office Visit [facility] Medicine - [facility] [address] [facility] [address] [place] [address] Ciro Fernandez, DO [address] [facility] [address] [place] [address] Essential Hypertension, Benign; Osteoarthritis Social [...] THE YARD MORE. PT ALSO GOING TO [facility] [place]. Current medication(s) reviewed. Taking and tolerating medications [...] SOMETHING ON A PRNBASIS. These have been ugol-fo-[id number] in nature, gradual in onset. These pains [...]
--- OUTSIDE RECORDS SUMMARY | 2024-08-19 14:01 | XMS_ITS | Encounter Summary ---
Author Organization [facility] Address [address] [place] [address] Care Team Providers Care Mobile Phone Salesperson Name Role Phone Unavailable Primary Care Provider Unavailabl e Encounter Details Date Type Department Care Team (Late st Contact Info) Description 09/19/2010 Abstract [facility] Medicine - [facility] [address] [facility] [address] [place] [address] Ciro Fernandez, DO 107 [facility] [address] [place] [address] Social History Tobacco Use Types [...]
--- OUTSIDE RECORDS SUMMARY | 2024-08-19 14:01 | XMS_ITS | Encounter Summary ---
Author Organization [facility] Address [address] [place] [address] Care Team Providers Care Verification Engineer Name Role Phone Unavailable Primary Care Provider Unavailabl e Reason for Visit * Reason Onset Date Comments Other 12/04/2009 Update on cough Encounter Details Date Type Department Care Team (Late st Contact Info) Description 12/04/2009 Telephone [facility] Family Medicine - [facility] Kwabena [address] [facility] [address] [place] [address] Ciro Fernandez, DO [address] [facility] [address] [place] [address] Other (Update on cough) Social [...]
--- OUTSIDE RECORDS SUMMARY | 2024-08-19 14:01 | XMS_ITS | Encounter Summary ---
Author Organization [facility] Address [address] [place] [address] Care Team Providers Care Supervisor Sewer System Name Role Phone Unavailable Primary Care Provider [...] Conversion, History - 01/11/2009 1:[address] [place], [place] [address] cc: Cristela Gant MD BLOOD FLOW The [...] patent superior mesenteric and inferior mesenteric arteries. CHEMICAL INSPECTOR:MEDQ Dictated by: Isac Sanchez MD Isac Sanchez MD Result Type: BLOOD FLOW Result Date: November 20, 2008 09:00 AM Result Status: UNREVIEWED documented in this encounter Plan of Treatment Not on file documented as of this encounter Visit Diagnoses Not on filedocumented in this encounter
--- OUTSIDE RECORDS SUMMARY | 2024-08-19 14:01 | XMS_ITS | Encounter Summary ---
Author Organization [facility] Address [address] [place] [address] Care Team Providers Care Glass Blower Name Role Phone Unavailable Primary Care Provider Unavailabl e Reason for Visit * Reason Onset Date Comments Sinus Pain 03/27/2009 Encounter Details Date Type Department Care Team (Late st Contact Info) Description 03/27/2009 Telephone [facility] Family Medicine - [facility] Kwabena [address] [facility] [address] [place] [address] Ciro Fernandez, DO [address] [facility] [address] [place] [address] Sinus Pain Social History Tobacco [...]
--- OUTSIDE RECORDS SUMMARY | 2024-08-19 14:01 | XMS_ITS | Encounter Summary ---
Author Organization [facility] Address [address] [place] [address] Care Team Providers Care Head Cashier Name Role Phone Unavailable Primary Care Provider Unavailabl e Encounter Details Date Type Department Care Team (Late st Contact Info) Description 09/16/2009 Abstract [facility] Medicine - [facility] Kwabena [address] [facility] [address] [place] [address] Ciro Fernandez, DO 107 [facility] [address] [place] [address] Social History Tobacco Use Types [...]
--- OUTSIDE RECORDS SUMMARY | 2024-08-19 14:01 | XMS_ITS | Encounter Summary ---
Author Organization [facility] Address [address] [place] [address] Care Team Providers Care Pockets And Pieces Necktie Operator Name Role Phone Unavailable Primary Care Provider Unavailabl e Reason for Visit * Reason Onset Date Comments Medication Problem 04/25/2009 PA on tommy miguel Encounter Details Date Type Department Care Team (Late st Contact Info) Description 04/25/2009 Telephone [facility] Family Medicine - [facility] 150 [address] [facility] [address] [place] [address] Ciro Fernandez, DO [address] [facility] [address] [place] [address] Medication Problem (PA on singular) [...]
--- OUTSIDE RECORDS SUMMARY | 2024-08-19 14:01 | XMS_ITS | Encounter Summary ---
Author Organization [facility] Address [address] [place] [address] Care Team Providers Care Asset Management Analyst Name Role Phone Unavailable Primary Care Provider Unavailabl e Reason for Visit * Reason Onset Date Comments Medication Refill 06/28/2009 Encounter Details Date Type Department Care Team (Late st Contact Info) Description 06/28/2009 Refill [facility] Family Medicine - [facility] Abundio Kwabena [address] [facility] [address] [place] [address] Ciro Fernandez, DO 107 [facility] [address] [place] [address] Social History Tobacco Use Types [...] in stating 90 supply was sent to [employer] instead of [facility] [employer]. New prescription sent. Patient notified. DOWN WORKER documented in this encounter Plan of Treatment Not on file documented as of this encounter Visit Diagnoses Not on filedocumented in this encounter
--- OUTSIDE RECORDS SUMMARY | 2024-08-19 14:01 | XMS_ITS | Encounter Summary ---
Author Organization [facility] Address [address] [place] [address] Care Team Providers Care Cellular Biologist Name Role Phone Unavailable Primary Care Provider Unavailabl e Reason for Visit * Reason Comments Hoarse chills, hax 4days Encounter Details Date Type Department Care Team (Late st Contact Info) Description 12/08/2010 10:45 AM CDT Office Visit [facility] Medicine - [facility] Abundio Yuan [address] [facility] [address] [place] [address] Ciro Fernandez, DO 107 [facility] [address] [place] [address] Acute pharyngitis (Primary Dx); Acute [...]
--- OUTSIDE RECORDS SUMMARY | 2024-08-19 14:01 | XMS_ITS | Encounter Summary ---
Author Organization [facility] Address [address] [place] [address] Care Team Providers Care Service Line Bus Cleaner Name Role Phone Unavailable Primary Care Provider Unavailabl e Reason for Visit * Reason Comments Nasal Congestion ST, cough, x 1wk Encounter Details Date Type Department Care Team (Late st Contact Info) Description 11/11/2009 10:30 AM CDT Office Visit [facility] Medicine - [facility] [address] [facility] [address] [place] [address] Ciro Fernandez DO [address] [facility] [address] [place] [address] Acute Sinusitis (Primary Dx); Allergic [...]
--- OUTSIDE RECORDS SUMMARY | 2024-08-19 14:01 | XMS_ITS | Encounter Summary ---
Author Organization [facility] Address [address] [place] [address] Care Team Providers Care Director Of Health Care Marketing Name Role Phone Unavailable Primary Care Provider Unavailabl e Reason for Visit * Reason Onset Date Comments Medication Refill 03/19/2010 Encounter Details Date Type Department Care Team (Late st Contact Info) Description 03/19/2010 Refill [facility] Family Medicine - [facility] Abundio Kwabena [address] [facility] [address] [place] [address] Ciro Fernandez, DO 107 [facility] [address] [place] [address] Essential Hypertension, Benign; Pure Hypercholesterolemia [...] to get 90 day refills sent to [facility] in [facility] documented in this encounter Plan of Treatment Not on file documented as of this encounter Visit Diagnoses Diagnosis Essential hypertension, benign Pure hypercholesterolemia documented in this encounter
--- OUTSIDE RECORDS SUMMARY | 2024-08-19 14:01 | XMS_ITS | Encounter Summary ---
Author Organization [facility] Address [address] [place] [address] Care Team Providers Care Network Systems Operator Name Role Phone Unavailable Primary Care Provider Unavailabl e Reason for Visit * Reason Comments Cough sinus drainage, give n zithromax x 2 wks ago still not feeling better. Encounter Details Date Type Department Care Team (Late st Contact Info) Description 11/27/2009 4:45 PM CDT Office Visit [facility] [address] [facility] [address] [place] [address] Ciro Fernandez DO 107 [facility] [address] [place] [address] Acute Sinusitis; Allergic Rhinitis; Cough [...]
--- OUTSIDE RECORDS SUMMARY | 2024-08-19 14:01 | XMS_ITS | Encounter Summary ---
Author Organization [facility] Address [address] [place] [address] Care Team Providers Care Executive Director Sheltered Workshop Name Role Phone Unavailable Primary Care Provider Unavailabl e Reason for Visit * Reason Onset Date Comments Medication Refill 04/05/2009 Encounter Details Date Type Department Care Team (Late st Contact Info) Description 04/05/2009 Refill [facility] Medicine - [facility] Lilia Kwabena [address] [facility] [address] [place] [address] Ciro Fernandez, DO 107 [facility] LILIA MURILLO [address] [place] [address] Social History [...]
--- OUTSIDE RECORDS SUMMARY | 2024-08-19 14:01 | XMS_ITS | Encounter Summary ---
Author Organization [facility] Address [address] [place] [address] Care Team Providers Care Stain Remover Name Role Phone Unavailable Primary Care Provider Unavailabl e Reason for Visit * Reason Onset Date Comments Allergic Reaction 11/12/2009 Encounter Details Date Type Department Care Team (Late st Contact Info) Description 11/12/2009 Telephone [facility] Family Medicine - [facility] Kwabena [address] [facility] [address] [place] [address] Ciro Fernandez, DO [address] [facility] [address] [place] [address] Allergic Reaction Social History Tobacco [...] script. Pt notified. * Telephone Encounter - Luana Hwang - 11/12/2009 9:50 AM CDT Pt [...]
--- OUTSIDE RECORDS SUMMARY | 2024-08-19 14:01 | XMS_ITS | Encounter Summary ---
Author Organization [facility] Address [address] [place] [address] Care Team Providers Care Music Ministries Director Name Role Phone Unavailable Primary Care Provider Unavailabl e Reason for Visit * Reason Onset Date Comments Medication Question 09/19/2010 Encounter Details Date Type Department Care Team (Late st Contact Info) Description 09/19/2010 Telephone [facility] Family Medicine - [facility] Kwabena [address] [facility] [address] [place] [address] Ciro Fernandez, DO [address] [facility] [address] [place] [address] Medication Question Social History Tobacco [...] JAMES on: 09/19/2010 Modules accepted: Orders, Medications ELECTRICAL ENGINEER * Telephone Encounter - Sisi James - 09/19/2010 3:15 PM CST Received fax from [facility] requesting different cholesterol medication. Dr Fernandez states can change to Simvastatin. Pharmacy and patient notified. ELECTRICAL ENGINEER documented in this encounter Plan of Treatment Not on file documented as of this encounter Visit Diagnoses Not on filedocumented in this encounter
--- OUTSIDE RECORDS SUMMARY | 2024-08-19 14:01 | XMS_ITS | Encounter Summary ---
Author Organization [facility] Address [address] [place] [address] Care Team Providers Care Bag Shaker Name Role Phone Unavailable Primary Care Provider Unavailabl e Reason for Visit * Reason Comments Follow Up labs Encounter Details Date Type Department Care Team (Latest Contact Info) Description 12/27/2009 3:15 PM CDT Office Visit [facility] Medicine - [facility] [address] [facility] [address] [place] [address] Ciro Fernandez DO [address] [facility] [address] [place] [address] Osteoarthritis (Primary Dx); Essential Hypertension, [...] DO - 12/28/2009 11:48 AM CDT SUBJECTIVE: Brnedon Aldana is a 59 y.o. male here [...] continue on the ibuprofen. These have been [id number] in nature, gradual in onset. These pains [...] , RANDOM URINE Routine 09/06/2010 7:24 AM COOK CHEF Essential hypertension, benign LIPID PANEL Routine 09/06/2010 7:24 AM COOK CHEF Pure hypercholesterolemia COMPREHENSIVE METABOLIC PANEL Routine 09/06/2010 7:24 AM COOK CHEF Essential hypertension, benign documented in this encounter Results * PROTEIN , RANDOM URINE (09/06/2010 7:24 AM COOK CHEF) Creatinine, Urine 186 20 - 370 mg/dL [employer] [facility] PROTEIN TOTAL, URINE 54 22 - 128 mg/g creat [employer] . [facility] PROTEIN TOTAL, URINE 10 5 - 25 mg/dL [employer] [facility] Comment: Test Performed at: [employer] [facility] [id number] [place] [address] ??[phone] MINO ZAMAN DO,MPH Urine specimen (specimen) 09/06/2010 7:24 AM COOK CHEF Ciro Fernandez DO URINE ORDERABLES INTERFACE SYSTEM Refer to clinic/hospital department [employer] [facility] [address] [place] [address] * COMPREHENSIVE METABOLIC PANEL (09/06/2010 7:24 AM COOK CHEF) GLUCOSE 97 65 - 99 mg/dL [facility] Comment:Fasting reference in terval BUN 13 7 - 25 mg/dL [facility] CREATININE 0.91 0.76 - 1.46 mg/dL [facility] GFR >60 > OR = 60 mL/min/1 .73m2 [facility] GFR, >60 > OR = 60 mL/min/1 .73m2 [facility] BUN/CREAT RATIO NOT APPLICABLE 6 - 22 (calc) [facility] SODIUM 138 135 - 146 mmol/L [facility] POTASSIUM 4.6 3.5 - 5.3 mmol/L [facility] CHLORIDE 102 98 - 110 mmol/L [facility] CO2 25 21 - 33 mmol/L [facility] DIAGNOSTICS [facility] CALCIUM 9.5 8.6 - 10.2 mg/dL [facility] TOTAL PROTEIN 7.5 6.2 - 8.3 g/dL [facility] ALBUMIN 4.5 3.6 - 5.1 g/dL [facility] GLOBULIN 3.0 2.1 - 3.7 g/dL (calc) [facility] ALBUMIN/GLOBULI N RATIO 1.5 1.0 - 2.1 (calc) [facility] BILIRUBIN TOTAL 0.6 0.2 - 1.2 mg/dL [facility] ALKALINE PHOSPHATASE 70 40 - 115 U/L [facility] AST 32 10 - 35 U/L [facility] ALT 46 9 - 60 U/L [facility] R[facility] Comment: Test Performed at: [employer] [place] [address] [place], [place] ??[phone] MINO ZAMAN DO,MPH Blood specimen (specimen) 09/06/2010 7:24 AM COOK CHEF Ciro Fernandez DO CHEMISTRY ORDERABLES INTERFACE SYSTEM Refer to clinic/hospital department [facility] Rounds [facility] [address] [place] [address] * LIPID PANEL (09/06/2010 7:24 AM COOK CHEF) CHOLESTEROL 137 125 - 200 mg/dL [facility] [employer] [facility] Comment: Test Performed at: [employer] [facility] [employer] [address] [place], [place] ??[phone] MINO ZAMAN DO,MPH HDL 43 > OR = 40 mg/dL [employer] [facility] TRIGLYCERIDE 108 <150 mg/dL [employer] [facility] LDL CALCULATED 72 <130 mg/dL (calc) [employer] [facility] Comment: Desirable range <100 mg/dL for patients with CHD or diabetes and <70 mg/dL for diabetic patients with known heart disease. CHOL/HDL RATIO 3.2 < OR = 5.0 (calc) [employer] [facility] Blood specimen (specimen) 09/06/2010 7:24 AM COOK CHEF Ciro Fernandez DO CHEMISTRY ORDERABLES INTERFACE SYSTEM Refer to clinic/hospital department [facility] [address] [place] [address] documented in this encounter Visit Diagnoses Diagnosis Osteoarthritis- Primary Osteoarthrosis, unspecified whether generalized or localized, unspecified site Essential hypertension, benign Pure hypercholesterolemia Erectile dysfunction Impotence of organic origin documented in this encounter
--- OUTSIDE RECORDS SUMMARY | 2024-08-19 14:01 | XMS_ITS | Encounter Summary ---
Author Organization [facility] Address [address] [place] [address] Care Team Providers Care Program Medical Director Name Role Phone Unavailable Primary Care Provider Unavailabl e Reason for Visit * Reason Comments Follow Up labs Encounter Details Date Type Department Care Team (Latest Contact Info) Description 03/22/2009 3:00 PM CDT Office Visit [facility] Medicine [facility] [address] [facility] [address] [place] [address] Ciro Fernandez, DO [address] [facility] [address] [place] [address] Essential Hypertension, Benign (Primary Dx); [...] - 03/22/2009 4:45 PM CDT SUBJECTIVE: Brendon Aldana is a 58 y.o. male here to discuss medical issues including hypertension. DECREASE IN WEIGHT RECENTLY DUE TO INCREASE IN ACTIVITY Back at work PT ALSO GOING TO [employer] IN [place]. Current medication(s) reviewed. Taking and tolerating medications [...] ON A PRN BASIS. These have been [id number] in nature, gradual in onset. These pains [...] CDT) CHOLESTEROL 129 125 - 200 mg/dL [facility] Comment: Test Performed at: [facility] [address] [place], [place] ??[phone] MINO ZAMAN DO,MPH HDL 42 > OR = 40 mg/dL [facility] TRIGLYCERIDE 105 <150 mg/dL [facility] LDL CALCULATED 66 <130 mg/dL (calc) [facility] Comment: Desirable range <100 mg/dL for patients with CHD or diabetes and <70 mg/dL for diabetic patients with known heart disease. CHOL/HDL RATIO 3.1 < OR = 5.0 (calc) [facility] Blood specimen (specimen) Ciro Fernandez DO CHEMISTRY ORDERABLES INTERFACE SYSTEM Refer to clinic/hospital department [facility] [address] [place] [address] * COMPREHENSIVE METABOLIC PANEL (12/22/2009 8:00 AM CDT) GLUCOSE 96 65 - 99 mg/dL [facility] Comment:Fasting reference in terval BUN 12 7 - 25 mg/dL [facility] CREATININE 0.79 0.76 - 1.46 mg/dL [facility] GFR >60 > OR = 60 mL/min/1 .73m2 [facility] GFR, >60 > OR = 60 mL/min/1 .73m2 [facility] BUN/CREAT RATIO NOT APPLICABLE 6 - 22 (calc) [facility] Comment: Bun/Creatinine ratio is not reported when the BUN and creatinine values are within normal limits. SODIUM 141 135 - 146 mmol/L [facility] POTASSIUM 4.6 3.5 - 5.3 mmol/L [facility] CHLORIDE 104 98 - 110 mmol/L [facility] CO2 26 21 - 33 mmol/L [facility] CALCIUM 9.3 8.6 - 10.2 mg/dL [facility] TOTAL PROTEIN 7.0 6.2 - 8.3 g/dL [facility] ALBUMIN 4.5 3.6 - 5.1 g/dL [facility] GLOBULIN 2.5 2.1 - 3.7 g/dL (calc) [facility] ALBUMIN/GLOBULI N RATIO 1.8 1.0 - 2.1 (calc) [facility] BILIRUBIN TOTAL 0.6 0.2 - 1.2 mg/dL [facility] ALKALINE PHOSPHATASE 69 40 - 115 U/L [facility] AST 30 10 - 35 U/L [facility] ALT 49 9 - 60 U/L [facility] Comment: Test Performed at: [facility] [place] [address] [place], [place] ??[phone] MINO ZAMAN DO,MPH Blood specimen (specimen) Ciro Fernandez DO CHEMISTRY ORDERABLES INTERFACE SYSTEM Refer to clinic/hospital department [facility] [address] [place] [address] documented in this encounter Visit Diagnoses Diagnosis Essential hypertension, benign- Primary Osteoarthritis Osteoarthrosis, unspecified whether generalized or localized, unspecified site Pure hypercholesterolemia documented in this encounter
--- OUTSIDE RECORDS SUMMARY | 2024-08-19 14:01 | XMS_ITS | Encounter Summary ---
Author Organization [facility] Address [address] [place] [address] Care Team Providers Care Manager Drug Safety Name Role Phone Unavailable Primary Care Provider Unavailabl e Reason for Visit * Reason Comments Eye Pain sore throat Encounter Details Date Type Department Care Team (Late st Contact Info) Description 03/28/2009 11:00 AM CDT Office Visit [facility] Medicine [facility] [address] [facility] [address] [place] [address] Ciro Fernandez, DO 107 [facility] [address] [place] [address] Acute Sinusitis (Primary Dx); Acute [...]
--- OUTSIDE RECORDS SUMMARY | 2024-08-19 14:01 | XMS_ITS | Encounter Summary ---
Author Organization [facility] Address [address] [place] [address] Care Team Providers Care Sports Nutritionist Name Role Phone Unavailable Primary Care Provider Unavailabl e Reason for Visit * Reason Onset Date Comments Medication Refill 03/21/2010 Encounter Details Date Type Department Care Team (Late st Contact Info) Description 03/21/2010 Refill [facility] Family Medicine - [facility] [address] [facility] [address] [place] [address] Ciro Fernandez, DO 107 [facility] [address] [place] [address] Essential Hypertension, Benign (Primary Dx) [...] Miscellaneous Notes * Telephone Encounter - Day Rosen - 03/21/2010 3:18 PM CDT Pt requesting refill of Benicar be sent to [facility]. documented in this encounter Plan of Treatment Not on file documented as of this encounter Visit Diagnoses Diagnosis Essential hypertension, benign- Primary documented in this encounter
--- OUTSIDE RECORDS SUMMARY | 2024-08-19 14:01 | XMS_ITS | Encounter Summary ---
Author Organization [facility] Address [address] [place] [address] Care Team Providers Care Automatic Fancy Machine Operator Name Role Phone Unavailable Primary Care Provider Unavailabl e Reason for Visit * Reason Onset Date Comments Medication Refill 09/08/2010 Encounter Details Date Type Department Care Team (Late st Contact Info) Description 09/08/[address] [facility] Medicine - [facility] [address] [facility] [address] [place] [address] Ciro Fernandez, DO 107 [facility] LILIA MURILLO [address] [place] [address] Osteoarthritis (Primary Dx) Social History [...]
--- OUTSIDE RECORDS SUMMARY | 2024-08-19 14:01 | XMS_ITS | Encounter Summary ---
Author Organization [facility] Address [address] [place] [address] Care Team Providers Care Ham Stringer Name Role Phone Unavailable Primary Care Provider Unavailabl e Reason for Visit * Reason Onset Date Comments Medication Refill 10/09/2010 Encounter Details Date Type Department Care Team (Late st Contact Info) Description 10/09/2010 Refill [facility] Medicine - [facility] [address] [place] [address] Ciro Fernandez, DO [address] [facility] LILIA MURILLO [address] [place] [address] Social History Tobacco Use Types [...]
--- OUTSIDE RECORDS SUMMARY | 2024-08-19 14:01 | XMS_ITS | Encounter Summary ---
Author Organization [facility] Address [address] [place] [address] Care Team Providers Care Windows And Doors Installer Name Role Phone Unavailable Primary Care Provider Unavailabl e Reason for Visit * Reason Onset Date Comments Medication Refill 12/17/2009 Encounter Details Date Type Department Care Team (Late st Contact Info) Description 12/17/2009 Refill [facility] Medicine - [facility] [address] [facility] [address] [place] [address] Ciro Fernandez, DO 107 [facility] [address] [place] [address] Social History Tobacco Use Types [...]
--- OUTSIDE RECORDS SUMMARY | 2024-08-19 14:01 | XMS_ITS | Encounter Summary ---
Author Organization [facility] Address [address] [place] [address] Care Team Providers Care Head Sugar Reprocess Operator Name Role Phone Unavailable Primary Care Provider Unavailabl e Reason for Visit * Reason Comments Results labs and prescriptio n refills Encounter Details Date Type Department Care Team (Late st Contact Info) Description 12/12/2008 9:30 AM CDT Office Visit [facility] Medicine - [facility] [address] [facility] [address] [place] [address] Ciro Fernandez, DO [address] [facility] [address] [place] [address] Essential Hypertension, Benign; Pure Hypercholesterolemia; [...] and Lipids and labs Pt went [place] was off of his diet. IFG: [...] RANDOM URINE (03/18/2009 11:00 AM CDT) Pathologist [facility] Creatinine, Urine 163 20 - 370 mg/dL [facility] PROTEIN TOTAL, URINE 55 22 - 128 mg/g creat [facility] PROTEIN TOTAL, URINE 9 5 - 25 mg/dL [facility] Comment: Test Performed at: [employer] [facility] [employer] ??[phone] GRAHAM HUSSEIN MD Urine specimen (specimen) Ciro Fernandez DO URINE ORDERABLES INTERFACE SYSTEM Refer to clinic/hospital department [facility] [address] [place] [address] * (ABNORMAL) COMPREHENSIVE METABOLIC PANEL (03/17/2009 9:00 AM CDT) Pathologist [facility] GLUCOSE 100(H) 65 - 99 mg/dL [facility] Comment:FASTING REFERENCE IN TERVAL BUN 14 7 - 25 mg/dL [facility] CREATININE 0.90 0.76 - 1.46 mg/dL [facility] GFR >60 > OR = 60 mL/min/1 .73m2 [facility] GFR, >60 > OR = 60 mL/min/1 .73m2 [facility] BUN/CREAT RATIO NOT APPLICABLE 6 - 22 (calc) [facility] Comment: BUN/CREATININE RATIO IS NOT REPORTED WHEN THE BUN AND CREATININE VALUES ARE WITHIN NORMAL LIMITS. SODIUM 139 135 - 146 mmol/L [facility] POTASSIUM 4.5 3.5 - 5.3 mmol/L [facility] CHLORIDE 105 98 - 110 mmol/L [facility] CO2 26 21 - 33 mmol/L [facility] CALCIUM 9.4 8.6 - 10.2 mg/dL [facility] TOTAL PROTEIN 7.0 6.2 - 8.3 g/dL [facility] ALBUMIN 4.2 3.6 - 5.1 g/dL [facility] GLOBULIN 2.8 2.1 - 3.7 g/dL (calc) [facility] ALBUMIN/GLOBULI N RATIO 1.5 1.0 - 2.1 (calc) [facility] BILIRUBIN TOTAL 0.5 0.2 - 1.2 mg/dL [facility] ALKALINE PHOSPHATASE 62 40 - 115 U/L [facility] AST 24 10 - 35 U/L [facility] ALT 45 9 - 60 U/L [facility] Comment: Test Performed at: [employer] [place] [address] [place], [place] ??[phone] GRAHAM HUSSEIN MD Blood specimen (specimen) Ciro Fernandez DO CHEMISTRY ORDERABLES INTERFACE SYSTEM Refer to clinic/hospital department [facility] [address] [place] [address] documented in this encounter Visit Diagnoses Diagnosis Essential hypertension, benign Pure hypercholesterolemia Impaired fasting glucose Encounter for long-term (current) use of other medications Allergic rhinitis Allergic rhinitis, cause unspecified GERD (gastroesophageal reflux disease) Esophageal reflux documented in this encounter
--- OUTSIDE RECORDS SUMMARY | 2024-08-19 14:01 | XMS_ITS | Encounter Summary ---
Author Organization [facility] Address [address] [place] [address] Care Team Providers Care Wireline Field Operator Name Role Phone Unavailable Primary Care Provider Unavailabl e Encounter Details Date Type Department Care Team (Late st Contact Info) Description 09/06/2009 Abstract [facility] Medicine - [facility] [address] [facility] [address] [place] [address] Ciro Fernandez, DO 107 [facility] [address] [place] [address] Social History Tobacco Use Types [...]
--- OUTSIDE RECORDS SUMMARY | 2024-08-19 14:01 | XMS_ITS | Encounter Summary ---
Author Organization [facility] Address [address] [place] [address] Care Team Providers Care Hydro Technician Name Role Phone Unavailable Primary Care Provider Unavailabl e Reason for Visit * Reason Onset Date Comments Results 12/06/2009 Encounter Details Date Type Department Care Team (Late st Contact Info) Description 12/06/2009 Telephone [facility] Family Medicine - [facility] [address] [facility] [address] [place] [address] Ciro Fernandez, DO [address] [facility] [address] [place] [address] Results Social History Tobacco Use [...]
--- OUTSIDE RECORDS SUMMARY | 2024-08-19 14:01 | XMS_ITS | Encounter Summary ---
Author Organization [facility] Address [address] [place] [address] Care Team Providers Care Scientist Electronics Name Role Phone Unavailable Primary Care Provider Unavailabl e Reason for Visit * Reason Onset Date Comments Results 10/13/2010 Encounter Details Date Type Department Care Team (Late st Contact Info) Description 10/13/2010 Telephone [facility] Family Medicine - [facility] [address] [facility] [address] [place] [address] Ciro Fernandez, DO [address] [facility] [address] [place] [address] Results Social History Tobacco Use [...] - 10/13/2010 3:12 PM CST PATIENT NOTIFIED LOPMENT GEOLOGIST * Telephone Encounter - Boo Almendarez - 10/13/2010 3:06 PM CST Message copied by BOO ALMENDAREZ on WedOct 13, 2010 3:06 PM ------ Message from: SARAH FERNANDEZ Created: WedOct 13, 2010 1:49 PM Prostate level is normal LOPMENT GEOLOGIST documented in this encounter Plan of Treatment Not on file documented as of this encounter Visit Diagnoses Not on filedocumented in this encounter
--- OUTSIDE RECORDS SUMMARY | 2024-08-19 14:01 | XMS_ITS | Encounter Summary ---
Author Organization [facility] Address [address] [place] [address] Care Team Providers Care Branch Customer Service Representative Name Role Phone Unavailable Primary Care Provider Unavailabl e Reason for Visit * Reason Onset Date Comments Medication Refill 09/05/2009 Encounter Details Date Type Department Care Team (Late st Contact Info) Description 09/05/2009 Refill [facility] Family Medicine - [facility] [address] [facility] [address] [place] [address] Ciro Fernandez, DO [address] [facility] [address] [place] [address] Social History Tobacco Use Types [...] Kay Jesus - 09/05/2009 9:07 AM CST [facility] states that Melissa D 24hr is not available from livestock [facility]. Would like to know if they cansubstitute Allergra D 12hr bid? Dr Fernandez oked. New script sent. UCT INTRODUCTION MANAGER documented in this encounter Plan of Treatment Not on file documented as of this encounter Visit Diagnoses Not on filedocumented in this encounter
--- OUTSIDE RECORDS SUMMARY | 2024-08-19 14:01 | XMS_ITS | Encounter Summary ---
Author Organization [facility] Address [address] [place] [address] Care Team Providers Care Chief Pharmacist Name Role Phone Unavailable Primary Care Provider Unavailabl e Reason for Visit * Reason Onset Date Comments Medication Refill 09/19/2010 Encounter Details Date Type Department Care Team (Late st Contact Info) Description 09/19/2010 Refill [facility] Family Medicine - [facility] [address] [facility] [address] [place] [address] Ciro Fernandez, DO [address] [facility] [address] [place] [address] Esophageal reflux (Primary Dx) Social [...] 1:52 PM CST New script faxed to [phone]. ONAL TRAINING MANAGER * Telephone Encounter - Day Rosen - 09/19/2010 9:07 AM CST Pt states [facility] can not fill previous rx sent for Prilosec because it is written for OTC.Needs new rx sent without OTC in order. ONAL TRAINING MANAGER documented in this encounter Plan of Treatment Not on file documented as of this encounter Visit Diagnoses Diagnosis Esophageal reflux- Primary documented in this encounter
--- OUTSIDE RECORDS SUMMARY | 2024-08-19 14:01 | XMS_ITS | Encounter Summary ---
Author Organization [facility] Address [address] [facility] Attn: Epic Prelude ADT [facility] [address] Care Team Providers Care Chief Librarian Branch Or Department Name Role Phone Unavailable Primary Care Provider Unavailabl e Encounter Details Date Type Department Care Team (Late st Contact Info) Description 12/03/2008 Outpatient Historical [facility] [address] [place] [address] ATTN: [place] [address] Provider, Historical Social History Tobacco Use Types [...] PSA 0.2 < OR = 4.0 ng/mL [facility] Comment: THIS TEST WAS PERFORMED USING THE SIEMENS (Pixelle) CHEMILUMINESCENT METHOD. VALUES OBTAINED FROM DIFFERENT ASSAY METHODS CANNOT BE USED INTERCHANGEABLY. PSA LEVELS, REGARDLESS OF VALUE, SHOULD NOT BE INTERPRETED ABSOLUTE EVIDENCE OF THE PRESENCE OR ABSENCE OF DISEASE. REPORT COMMENT: FASTING Test Performed at: [facility] ??[phone] GRAHAM HUSSEIN MD Ciro Fernandez DO CHEMISTRY ORDERABLES Performing Organization Address [facility] Phone Number INTERFACE SYSTEM Refer to clinic/hospital department [address] [address] * (ABNORMAL) BASIC METABOLIC PANEL (12/03/2008 9:00 AM CDT) GLUCOSE 110(H) 65 - 99 mg/dL [facility] Comment:FASTING REFERENCE IN TERVAL BUN 18 7 - 25 mg/dL [facility] [employer] [facility] CREATININE 0.90 0.76 - 1.46 mg/dL [facility] [employer] [facility] GFR >60 > OR = 60 mL/min/1 .73m2 [facility] [employer] [facility] GFR, >60 > OR = 60 mL/min/1 .73m2 [facility] [employer] [facility] BUN/CREAT RATIO NOT APPLICABLE 6 - 22 (calc) [facility] Comment: BUN/CREATININE RATIO IS NOT REPORTED WHEN THE BUN AND CREATININE VALUES ARE WITHIN NORMAL LIMITS. SODIUM 141 135 - 146 mmol/L [facility] POTASSIUM 4.6 3.5 - 5.3 mmol/L [employer] CHLORIDE 106 98 - 110 mmol/L [employer] CO2 25 21 - 33 mmol/L [facility] CALCIUM 9.6 8.6 - 10.2 mg/dL [facility] [employer] [facility] Comment: Test Performed at: [employer] [address] ??[phone] GRAHAM HUSSEIN MD Ciro Fernandez DO CHEMISTRY ORDERABLES Performing Organization Address [facility] de Phone Number INTERFACE SYSTEM Refer to clinic/hospital department [address] [address] * ALT (12/03/2008 9:00 AM CDT) ALT 38 9 - 60 U/L [facility] Comment: Test Performed at: [facility] [address] ??[phone] GRAHAM HUSSEIN MD Ciro Fernandez DO CHEMISTRY ORDERABLES Performing Organization Address [facility] Phone Number INTERFACE SYSTEM Refer to clinic/[place] [address] * AST (12/03/2008 9:00 AM CDT) AST 24 10 - 35 U/L [facility] Comment: Test Performed at: [facility] [address] ??[phone] GRAHAM HUSSEIN MD Ciro Fernandez DO CHEMISTRY ORDERABLES Performing Organization Address [facility] Phone Number INTERFACE SYSTEM Refer to clinic/[place] [address] * (ABNORMAL) LIPID PANEL (12/03/2008 9:00 AM CDT) Pathologist [facility] TRIGLYCERIDE 100 <150 mg/dL [facility] Comment: Test Performed at: [facility] [address] ??[phone] GRAHAM HUSSEIN MD CHOLESTEROL 122(L) 125 - 200 mg/dL [facility] [employer] [facility] HDL 43 > OR = 40 mg/dL [facility] [employer] [facility] LDL CALCULATED 59 <130 mg/dL (calc) [facility] [employer] [facility] Comment: DESIRABLE RANGE <100 MG/DL FOR PATIENTS WITH CHD OR DIABETES AND <70 MG/DL FOR DIABETIC PATIENTS WITH KNOWN HEART DISEASE. CHOL/HDL RATIO 2.8 < OR = 5.0 (calc) [facility] [employer] [facility] Ciro Fernandez DO CHEMISTRY ORDERABLES Performing Organization Address [facility] Phone Number INTERFACE SYSTEM Refer to clinic/hospital department [address] [place] [address] documented in this encounter Visit Diagnoses Not on filedocumented in this encounter
--- OUTSIDE RECORDS SUMMARY | 2024-08-19 14:01 | XMS_ITS | Encounter Summary ---
Author Organization [facility] Address [address] [place] [address] Care Team Providers Care Food Technician Name Role Phone Unavailable Primary Care Provider Unavailabl e Reason for Visit * Reason Comments Hoarse sore throat and coug william Encounter Details Date Type Department Care Team (Late st Contact Info) Description 04/22/2009 3:30 PM CDT Office Visit [facility] - [facility] [address] [facility] [address] [place] [address] Ciro Fernandez, DO 107 [facility] [address] [place] [address] Acute Pharyngitis (Primary Dx); Cough; [...]
--- OUTSIDE RECORDS SUMMARY | 2024-08-19 14:01 | XMS_ITS | Encounter Summary ---
Author Organization [facility] Address [address] [place] [address] Care Team Providers Care Food Service Substitute Name Role Phone Unavailable Primary Care Provider Unavailabl e Reason for Visit * Reason Comments Hypertension chol, follow up labs Encounter Details Date Type Department Care Team ([facility] Contact Info) Description 09/12/2010 2:15 PM MANAGER MARKETING SALES Office Visit [facility] Medicine - [facility] [address] [facility] [address] [place] [address] Ciro Fernandez DO [address] [facility] [address] [place] [address] Well adult exam; Essential hypertension, [...] Comments Blood Pressure 158/90 09/12/2010 1:55 PM MANAGER MARKETING SALES Pulse 84 09/12/2010 1:55 PM MANAGER MARKETING SALES Temperature 36.9 ??C (98.5 ??F) 09/12/2010 1:55 PM CS T Respiratory Rate - - Oxygen Saturation - - Inhaled Oxygen Concentration - - Weight 99.8 kg (220 lb) 09/12/2010 1:55 PM MANAGER MARKETING SALES Height - - Body Mass Index - [...] back at today's visit. These have been [id number] in nature, gradual in onset. Exam shows [...] and Alternatives of the current treatment regimen. GER MARKETING SALES * Kay Jesus - 09/12/2010 3:22 PM CST Faxed medications refills to [facility] to [phone]. GER MARKETING SALES documented in this encounter Plan of Treatment Not on file documented as of this encounter Procedures Procedure Name Priority Date/Time Associated Diagnosis Comments LIPID PANEL Routine 03/28/2011 7:40 AM CDT COMPREHENSIVE METABOLIC PANEL Routine 03/28/2011 7:40 AM CDT PSA Routine 10/11/2010 7:54 AM MANAGER MARKETING SALES POC URINALYSIS DIPSTICK NON AUTOMATED Routine 09/12/2010 2:29 PM MANAGER MARKETING SALES Dysuria POC OCCULT BLOOD UP TO 3 CARDS Routine 09/12/2010 2:28 PM MANAGER MARKETING SALES Screen for colon cancer documented in this encounter Results * COMPREHENSIVE METABOLIC PANEL (03/28/2011 7:40 AM CDT) GLUCOSE 97 65 - 99 mg/dL [facility] Comment:Fasting reference in terval BUN 22 7 - 25 mg/dL [facility] CREATININE 1.02 0.76 - 1.46 mg/dL [facility] GFR 80 > OR = 60 mL/min/1 .73m[address] [facility] GFR, 93 > OR = 60 mL/min/1 .73m[address] [facility] BUN/CREAT RATIO NOT APPLICABLE 6 - 22 (calc) [facility] SODIUM 139 135 - 146 mmol/L [facility] POTASSIUM 4.6 3.5 - 5.3 mmol/L [facility] CHLORIDE 102 98 - 110 mmol/L [facility] CO2 26 21 - 33 mmol/L [facility] CALCIUM 9.1 8.6 - 10.2 mg/dL [facility] TOTAL PROTEIN 6.9 6.2 - 8.3 g/dL [facility] ALBUMIN 4.3 3.6 - 5.1 g/dL [facility] GLOBULIN 2.6 2.1 - 3.7 g/dL (calc) [facility] ALBUMIN/GLOBULI N RATIO 1.7 1.0 - 2.1 (calc) [facility] BILIRUBIN TOTAL 0.5 0.2 - 1.2 mg/dL [facility] ALKALINE PHOSPHATASE 55 40 - 115 U/L [facility] AST 19 10 - 35 U/L [facility] ALT 31 9 - 60 U/L [facility] [employer] Comment: REPORT COMMENT: FAST 10HRS Test Performed at: [employer] [facility] ??[phone] MINO ZAMAN DO,MPH 03/28/2011 7:40 AM CDT Ciro Fernandez DO CHEMISTRY ORDERABLES INTERFACE SYSTEM Refer to clinic/hospital department writewith [facility] [address] [place] [address] * LIPID PANEL (03/28/2011 7:40 AM CDT) CHOLESTEROL 149 125 - 200 mg/dL [facility] [employer] [facility] Comment: Test Performed at: [facility] [address] [place], [place] ??[phone] MINO ZAMAN DO,MPH HDL 44 > OR = 40 mg/dL [employer] [facility] TRIGLYCERIDE 131 <150 mg/dL [facility] LDL CALCULATED 79 <130 mg/dL (calc) [employer] [facility] Comment: Desirable range <100 mg/dL for patients with CHD or diabetes and <70 mg/dL for diabetic patients with known heart disease. CHOL/HDL RATIO 3.4 < OR = 5.0 (calc) [employer] [facility] 03/28/2011 7:40 AM CDT Ciro Fernandez DO CHEMISTRY ORDERABLES Performing Organization Address [facility] Phone Number INTERFACE SYSTEM Refer to clinic/hospital department writewith [facility] [address] [place] [address] * PSA (10/11/2010 7:54 AM MANAGER MARKETING SALES) PSA 0.3 < OR = 4.0 ng/mL [employer] [facility] Comment: This test was performed using the Siemens chemiluminescent method. Values obtained from different assay methods cannot be used interchangeably. PSA levels, regardless of value, should not be interpreted as absolute evidence of the presence or absence of disease. Test Performed at: [employer] [facility] [id number] [place] [address] ??[phone] MINO ZAMAN DO,MPH 10/11/2010 7:54 AM MANAGER MARKETING SALES Ciro Fernandez DO CHEMISTRY ORDERABLES Performing Organization Address [place]/[facility] Phone Number INTERFACE SYSTEM Refer to clinic/hospital department [employer] [facility] [address] [place] [address] * POC URINALYSIS DIPSTICK NON AUTOMATED (09/12/2010 2:29 PM MANAGER MARKETING SALES) COLOR UA yellow YELLOW [facility] [...] OF CARE TESTKENDAL G Performing Organization Address City/[facility] Co de Phone Number [facility] * POC OCCULT BLOOD UP TO 3 CARDS (09/12/2010 2:28 PM MANAGER MARKETING SALES) OCCULT BLOOD #1 negative NEG [facility] OCCULT BLOOD #2 [facility]G [facility] OCCULT BLOOD #3 NEG [facility] Stool specimen (specimen) Ciro Fernandez DO POINT OF CARE TESTKENDAL Anand Performing Organization Address [facility] Co de Phone Number [facility] [...]
--- OUTSIDE RECORDS SUMMARY | 2024-08-19 14:01 | XMS_ITS | Encounter Summary ---
Author Organization [facility] Address [address] [place] [address] Care Team Providers Care Microsoft Dynamics Consultant Name Role Phone Unavailable Primary Care Provider Unavailabl e Reason for Visit * Reason Onset Date Comments Medication Refill 06/25/2009 Encounter Details Date Type Department Care Team (Late st Contact Info) Description 06/25/2009 Refill [facility] Medicine - [facility] Lilia Kwabena [address] [facility] [address] [place] [address] Ciro Fernandez, DO 107 [facility] LILIA MURILLO [address] [place] [address] Social History Tobacco Use Types [...]
--- OUTSIDE RECORDS SUMMARY | 2024-08-19 14:01 | XMS_ITS | Encounter Summary ---
Author Organization [facility] Address [address] [place] [address] Care Team Providers Care Medical Superintendent Name Role Phone Unavailable Primary Care Provider Unavailabl e Reason for Visit * Reason Onset Date Comments Medication Refill 11/30/2008 Encounter Details Date Type Department Care Team (Late st Contact Info) Description 11/30/2008 Refill [facility] - [facility] Kw[address]ena [address] [facility] [address] [place] [address] Ciro Fernandez, DO [address] [facility] [address] [place] [address] Social History Tobacco Use Types [...]
--- OUTSIDE RECORDS SUMMARY | 2024-08-19 14:01 | XMS_ITS | Encounter Summary ---
Author Organization [facility] Address [address] [place] [address] Care Team Providers Care Planning Supervisor Name Role Phone Unavailable Primary Care Provider Unavailabl e Reason for Visit * Reason Onset Date Comments Medication Refill 09/26/2009 Encounter Details Date Type Department Care Team (Late st Contact Info) Description 09/26/2009 Refill [facility] Family Medicine - [facility] Kw[address] [facility] [address] [place] [address] Ciro Fernandez, DO [address] [facility] [address] [place] [address] Social History Tobacco Use Types [...] 09/26/2009 11:[address] Fernandez oked. CIPAL GIFTS OFFICER * Telephone Encounter - Luana Hwang - 09/26/2009 10:44 AM CST Pt says that Dr Fernandez told him that he could put off his labs and ov until October. If it is okay with he would like a 90 day supply sent to [facility]. If not okay call pt and let him know. CIPAL GIFTS OFFICER documented in this encounter Plan of Treatment Not on file documented as of this encounter Visit Diagnoses Not on filedocumented in this encounter
--- OUTSIDE RECORDS SUMMARY | 2024-08-19 14:01 | XMS_ITS | Encounter Summary ---
Author Organization [facility] Address [address] [place] [address] Care Team Providers Care Ladle Repairer Name Role Phone Unavailable Primary Care Provider Unavailabl e Reason for Visit * Reason Onset Date Comments Medication Problem 09/18/2010 Irregular Heart Beat 09/18/2010 elevated Encounter Details Date Type Department Care Team (Late st Contact Info) Description 09/18/2010 Telephone [facility] Family Medicine - [facility] [address] [facility] [address] [place] [address] Ciro Fernandez, DO 107 [facility] [address] [place] [address] Medication Problem; Irregular Heart Beat [...] monitor. Will stop Flexeril if elevates again. LING EXPERT * Telephone Encounter - Day Rosen - 09/18/2010 9:58 AM CST Pt's pulse rate has been elevated since starting Cipro, bp med and muscle relaxer. Side effect profile on abx says it can increase heart rate if taken with a muscle relaxer. His bp has been in normalrange. Should he stop any of these meds? LING EXPERT documented in this encounter Plan of Treatment Not on file documented as of this encounter Visit Diagnoses Not on filedocumented in this encounter
--- OUTSIDE RECORDS SUMMARY | 2024-08-19 14:01 | XMS_ITS | Encounter Summary ---
Author Organization [facility] Address [address] [place] [address] Care Team Providers Care Pony Ride Operator Name Role Phone Unavailable Primary Care Provider Unavailabl e Encounter Details Date Type Department Care Team (Late st Contact Info) Description 09/17/2010 Abstract [facility] Medicine - [facility] Kw[address] [facility] [address] [place] [address] Ciro Fernandez, DO 107 [facility] [address] [place] [address] Social History Tobacco Use Types [...]
--- OUTSIDE RECORDS SUMMARY | 2024-08-19 14:01 | XMS_ITS | Encounter Summary ---
Author Organization Address [address] [place] [address] Care Team Providers Care Pneumatic Tube Operator Name Role Phone Unavailable Primary Care Provider Unavailabl e Reason for Visit * Reason Onset Date Comments Medication Refill 10/07/2010 Encounter Details Date Type Department Care Team (Late st Contact Info) Description 10/07/2010 Refill [facility] Medicine - [facility] [place] [place] [address] Ciro Fernandez, DO 107 [facility] LILIA [address]URILLO [address] [place] [address] Social History Tobacco Use Types [...]
--- OUTSIDE RECORDS SUMMARY | 2024-08-19 14:01 | XMS_ITS | Encounter Summary ---
Author Organization [facility] Address [address] [place] [address] Care Team Providers Care Warehouseman Name Role Phone Unavailable Primary Care Provider Unavailabl e Encounter Details Date Type Department Care Team (Late st Contact Info) Description 09/13/2010 Abstract [facility] Medicine - [facility] Kwabena [address] [facility] [address] [place] [address] Ciro Fernandez, DO 107 [facility] [address] [place] [address] Social History Tobacco Use Types [...]
--- OUTSIDE RECORDS SUMMARY | 2024-08-19 14:01 | XMS_ITS | Encounter Summary ---
Author Organization [facility] Address [address] [place] [address] Care Team Providers Care Report Developer Name Role Phone Unavailable Primary Care Provider Unavailabl e Reason for Visit * Reason Onset Date Comments New Prescription Request 12/30/2009 Encounter Details Date Type Department Care Team (Late st Contact Info) Description 12/30/2009 Telephone [facility] Family Medicine - [facility] [address] [facility] [address] [place] [address] Ciro Fernandez, DO 107 [facility] [address] [place] [address] New Prescription Request Social History [...]
--- OUTSIDE RECORDS SUMMARY | 2024-08-19 14:02 | XMS_ITS | Encounter Summary ---
Author Organization [facility] Address [address] [place] [address] Care Team Providers Care Handkerchief Folder Name Role Phone Inderjit Narayan DO Primary Care Provider + Encounter Details Date Type Department Care Team (Late st Contact Info) Description 04/29/2001 Outpatient Historical [facility] Medicine - [facility] Kw[address]ena [address] [facility] [address] [place] [address] Dimitry Powell MD 111 [facility] [address] [place] [address] Social History Tobacco Use Types [...] on filedocumented in this encounter Care Teams Handkerchief Folder Relationship Specialty Start Date End Date Inderjit Narayan DO [address] [place] [phone] PCP - General Family Practice 04/09/23 08/29/23 documented as of this encounter
--- OUTSIDE RECORDS SUMMARY | 2024-08-19 14:02 | XMS_ITS | Encounter Summary ---
Author Organization [facility] Address [address] [place] [address] Care Team Providers Care Remote Ruby On Rails Developer Name Role Phone RomelcristopherInderjit Nayeli CHRISTIANSEN Primary Care Provider + Encounter Details Date Type Department Care Team (Late st Contact Info) Description 11/06/2008 Outpatient Historical [facility] Kelle Gant MD [address] [place] [address] Blood in Stool Social History [...] CDT Narrative 11/07/2008 8:52 AM CDT ? [facility] ? [address] ?[place], [place] ??[address] ?Admit Date: 11/06/2008 ?BRENDON ALDANA ?Sex: M ?Admit Prov: KELLE GANT ? Date: 1950 ?Primary Care Prov: TABATHA DRAPER ? CMRN: [id number] ?Room: MRI-A ?SSN: [id number] ? IMAGING SERVICES ?Ordering Prov: N/A ? Accession Number: [id number] ?Interpretation ? CT HEAD WITHOUT CONTRAST, 11/06/2008 [...] ? 11/07/2008 08:50 ? Transcribed: ??11/06/2008 10:28 ?[facility] Procedure Note Estevan Esparza - 11/07/2008 [facility] [address] [place], [place] [address] Admit Date: 11/06/2008 BRENDON ALDANA Sex: M Admit Prov: KELLE GANT Date: 1950 Primary Care Prov: TABATHA DRAPER CMRN: [id number] Room: [facility] SSN: [id number] IMAGING SERVICES Ordering Prov: N/A Interpretation CT [...] stool documented in this encounter Care Teams Remote Ruby On Rails Developer Relationship Specialty Start Date End Date Inderjit Narayan DO [address] [place] [address] PCP - General Family Practice 04/09/23 08/29/23 documented as of this encounter
--- OUTSIDE RECORDS SUMMARY | 2024-08-19 14:02 | XMS_ITS | Encounter Summary ---
Author Organization [facility] Address [address] [place] [address] Care Team Providers Care Auto Detailer Name Role Phone Inderjit Narayan DO Primary Care Provider + Encounter Details Date Type Department Care Team (Late st Contact Info) Description 05/02/2007 Outpatient Historical [facility] Medicine - [facility] Kw[address] [facility] [address] [place] [address] Robin Dexter MD [address] [place] [address] Social History Tobacco Use Types [...] on filedocumented in this encounter Care Teams Auto Detailer Relationship Specialty Start Date End Date Inderjit Narayan DO [address] [place] [phone] PCP - General Family Practice 04/09/23 08/29/23 documented as of this encounter
--- OUTSIDE RECORDS SUMMARY | 2024-08-19 14:02 | XMS_ITS | Encounter Summary ---
Author Organization [facility] Address [address] [place] [address] Care Team Providers Care Mastercam Programmer Name Role Phone Inderjit Narayan DO Primary Care Provider + Encounter Details Date Type Department Care Team (Late st Contact Info) Description 04/05/2002 Outpatient Historical [facility] Medicine - [facility] Kwabena [address] [facility] [address] [place] [address] Tayler Viera MD [address] [place] [address] Social History Tobacco Use Types [...] on filedocumented in this encounter Care Teams Mastercam Programmer Relationship Specialty Start Date End Date Inderjit Narayan DO [facility] [place] [address] PCP - General Family Practice 04/09/23 08/29/23 documented as of this encounter
--- OUTSIDE RECORDS SUMMARY | 2024-08-19 14:02 | XMS_ITS | Encounter Summary ---
Author Organization [facility] Address [address] [place] [address] Care Team Providers Care Vest Tailor Name Role Phone Unavailable Primary Care [...]
--- OUTSIDE RECORDS SUMMARY | 2024-08-19 14:02 | XMS_ITS | Encounter Summary ---
Author Organization [facility] Address [address] [place] [address] Care Team Providers Care Executive Sales Assistant Name Role Phone Unavailable Primary Care Provider Unavailabl e Encounter Details Date Type Department Care Team (Late st Contact Info) Description 07/09/2008 Orders Only [facility] Medicine - [facility] [address] [facility] [address] [place] [address] Ciro Fernandez, DO [address] [facility] [address] [place] [address] Dysuria (Primary Dx) Social History [...]
--- OUTSIDE RECORDS SUMMARY | 2024-08-19 14:02 | XMS_ITS | Encounter Summary ---
Author Organization [facility] Address [address] [place] [address] Care Team Providers Care Skin Washer Name Role Phone Inderjit Narayan DO Primary Care Provider + Encounter Details Date Type Department Care Team (Late st Contact Info) Description 06/10/2001 Outpatient Historical [facility] Medicine - [facility] [address] [facility] [address] [place] [address] Tayler Viera MD [address] [place] [address] Social History Tobacco Use Types [...] on filedocumented in this encounter Care Teams Skin Washer Relationship Specialty Start Date End Date Inderjit Narayan DO [facility] [place] [address] PCP - General Family Practice 04/09/23 08/29/23 documented as of this encounter
--- OUTSIDE RECORDS SUMMARY | 2024-08-19 14:02 | XMS_ITS | Encounter Summary ---
Author Organization [facility] Address [address] [place] [address] Care Team Providers Care Slag Wheeler Name Role Phone Inderjit Narayan DO Primary Care Provider + Encounter Details Date Type Department Care Team (Late st Contact Info) Description 07/21/1999 Outpatient Historical [facility] Medicine - [facility] [address] [facility] [address] [place] [address] Tayler Viera MD [address] [place] [address] Social History Tobacco Use Types [...] on filedocumented in this encounter Care Teams Slag Wheeler Relationship Specialty Start Date End Date Inderjit Narayan DO [facility] [place] [address] PCP - General Family Practice 04/09/23 08/29/23 documented as of this encounter
--- OUTSIDE RECORDS SUMMARY | 2024-08-19 14:02 | XMS_ITS | Encounter Summary ---
Author Organization [facility] Address [address] [place] [address] Care Team Providers Care Commissioning Agent Name Role Phone Inderjit Narayan DO Primary Care Provider + Encounter Details Date Type Department Care Team (Late st Contact Info) Description 03/07/2002 Outpatient Historical [facility] Medicine - [facility] [address] [facility] [address] [place] [address] Dimitry Powell MD [address] [facility] [address] [place] [address] Social History Tobacco Use Types [...] on filedocumented in this encounter Care Teams Commissioning Agent Relationship Specialty Start Date End Date Inderjit Narayan DO [address] [place] [phone] PCP - General Family Practice 04/09/23 08/29/23 documented as of this encounter
--- OUTSIDE RECORDS SUMMARY | 2024-08-19 14:02 | XMS_ITS | Encounter Summary ---
Author Organization [facility] Address [address] [place] [address] Care Team Providers Care Product Mgr Name Role Phone Inderjit Narayan DO Primary Care Provider + Encounter Details Date Type Department Care Team (Late st Contact Info) Description 09/22/2002 Outpatient Historical [facility] Medicine - [facility] [address] [facility] [address] [place] [address] Tayler Viera MD [address] [place] [address] Social History Tobacco Use Types [...] filedocumented in this encounter Care Teams Product Mgr Relationship Specialty Start Date End Date Inderjit Narayan DO [facility] [place] [address] PCP - General Family Practice 04/09/23 08/29/23 documented as of this encounter
--- OUTSIDE RECORDS SUMMARY | 2024-08-19 14:02 | XMS_ITS | Encounter Summary ---
Author Organization [facility] Address [address] [place] [address] Care Team Providers Care Environmental Air Specialist Name Role Phone Inderjit Narayan DO Primary Care Provider + Encounter Details Date Type Department Care Team (Late st Contact Info) Description 02/05/2006 Outpatient Historical [facility] Medicine - [facility] [address] [facility] [address] [place] [address] Tayler Viera MD [address] [place] [address] Social History Tobacco Use Types [...] on filedocumented in this encounter Care Teams Environmental Air Specialist Relationship Specialty Start Date End Date Inderjit Narayan DO [facility] [place] [address] PCP - General Family Practice 04/09/23 08/29/23 documented as of this encounter
--- OUTSIDE RECORDS SUMMARY | 2024-08-19 14:02 | XMS_ITS | Encounter Summary ---
Author Organization [facility] Address [address] [place] [address] Care Team Providers Care Remodeler Name Role Phone Inderjit Narayan DO Primary Care Provider + Encounter Details Date Type Department Care Team (Late st Contact Info) Description 04/16/2000 Outpatient Historical [facility] Medicine - [facility] [address] [facility] [address] [place] [address] Dimitry Powell MD 111 [facility] [address] [place] [address] Social History Tobacco Use Types [...] on filedocumented in this encounter Care Teams Remodeler Relationship Specialty Start Date End Date Inderjit Narayan DO [address] [place] [phone] PCP - General Family Practice 04/09/23 08/29/23 documented as of this encounter
--- OUTSIDE RECORDS SUMMARY | 2024-08-19 14:02 | XMS_ITS | Encounter Summary ---
Author Organization [facility] Address [address] [place] [address] Care Team Providers Care Coin Machine Assembler Name Role Phone Inderjit Narayan DO Primary Care Provider + Encounter Details Date Type Department Care Team (Late st Contact Info) Description 04/08/2004 Outpatient Historical [facility] Medicine - [facility] [address] [facility] [address] [place] [address] Tayler Viera MD [address] [place] [address] Social History Tobacco Use Types [...] on filedocumented in this encounter Care Teams Coin Machine Assembler Relationship Specialty Start Date End Date Inderjit Narayan DO [facility] [address] PCP - General Family Practice 04/09/23 08/29/23 documented as of this encounter
--- OUTSIDE RECORDS SUMMARY | 2024-08-19 14:02 | XMS_ITS | Encounter Summary ---
Author Organization [facility] Address [address] [place] [address] Care Team Providers Care Biomathematician Name Role Phone Unavailable Primary Care Provider Unavailabl e Reason for Visit * Reason Comments Flu flu like symptoms Encounter Details Date Type Department Care Team (Late st Contact Info) Description 09/24/2008 11:00 AM ACCOUNTS RECEIVABLE SPECIALIST Office Visit [facility] Medicine - [facility] [address] [facility] [address] [place] [address] Ciro Fernandez, DO [address] [facility] [address] [place] [address] Blood in Stool; Constipation; Internal [...] Comments Blood Pressure 114/80 09/24/2008 10:56 AM ACCOUNTS RECEIVABLE SPECIALIST Pulse 92 09/24/2008 10:56 AM ACCOUNTS RECEIVABLE SPECIALIST Temperature 36.5 ??C (97.7 ??F) 09/24/2008 10:[address] Respiratory Rate - - Oxygen Saturation - - Inhaled Oxygen Concentration - - Weight 98.9 kg (218 lb) 09/24/2008 10:56 AM ACCOUNTS RECEIVABLE SPECIALIST Height - - Body Mass Index - [...] and Alternatives of the current treatment regimen. UNTS RECEIVABLE SPECIALIST documented in this encounter Plan of Treatment Not on file documented as of this encounter Procedures Procedure Name Priority Date/Time Associated Diagnosis Comments POC OCCULT BLOOD UP TO 3 CARDS Routine 09/24/2008 2:05 PM ACCOUNTS RECEIVABLE SPECIALIST Blood in Stool documented in this encounter Results * ENDOSCOPY, COLON, DIAGNOSTIC (09/28/2008) Ciro Fernandez DO GI PROCEDURE ORDERAB LES Performing Organization Address City/State/[facility] Co de Phone Number [facility] * (ABNORMAL) POC OCCULT BLOOD UP TO 3 CARDS (09/24/2008 2:05 PM ACCOUNTS RECEIVABLE SPECIALIST) OCCULT BLOOD #1 POS POS [facility] [...]
--- OUTSIDE RECORDS SUMMARY | 2024-08-19 14:02 | XMS_ITS | Encounter Summary ---
Author Organization [employer] Address [address] [place] [address] Care Team Providers Care Gambling Counsellor Name Role Phone RomelbenlteyInderjit murdock Nayeli CHRISTIANSEN Primary Care Provider + Encounter Details Date Type Department Care Team (Late st Contact Info) Description 09/28/2008 Outpatient Historical [facility] Cristela Gant MD [address] [place] [address] Blood in Stool Social History [...] Diagnosis Comments PATHOLOGY Routine 09/28/2008 1:[address] JUSTICE C. DIFFICILE DETECTION Routine 09/28/2008 12:[address] JUSTICE FECAL LEUKOCYTES STAIN Routine 09/28/2008 12:[address] JUSTICE OVA AND PARASITE SCREEN Routine 09/28/2008 12:[address] JUSTICE STOOL CULTURE W/SHIGA TOXIN Routine 09/28/2008 12:[address] JUSTICE documented in this encounter Results * PATHOLOGY (09/28/2008 1:[address] JUSTICE) FINAL REPORT ?[facility] [place], [place] ?[address] ? [place], [place] ??[address] ? Patient: ??SONG ALDANA ? : ??1950 ? Procedure Date: ??09/28/2008 ? Accession Date: ??09/28/2008 ? Case No: ??[id number] ? Ordering Dr: ??CRISTELA GANT ? Case types AW, BW, FW, NW and SH are performed by [facility] ? Ctr, [place], [place] ?SURGICAL PATHOLOGY & NON-GYNECOLOGIC CYTOPATHOLOGY REPORT ? [...] ? Microscopic: ? The slides are labeled [id number] and Song Aldana. ? The left colon [...] 05:12 pm INTERFACE SYSTEM 09/28/2008 1:[address] JUSTICE Cristela Gant MD PATHOLOGY/CYTOLOGY O RDERABLES INTERFACE SYSTEM Refer to clinic/hospital department * OVA AND PARASITE SCREEN (09/28/2008 12:[address] JUSTICE) FINAL REPORT ? Concentration : No ova or parasites seen. Trichrome: No ova or parasites seen. ? [facility] Stool specimen (specimen) 09/28/2008 12:[address] JUSTICE 09/28/2008 1:[address] JUSTICE Narrative INTERFACE SYSTEM - 10/01/2008 11:[address] JUSTICE Performed by [facility] [address] Performed by [facility] [address] Cristela Gant MD MICROBIOLOGY - GENER AL ORDERABLES Performing Organization Address [facility] Phone Number INTERFACE SYSTEM Refer to clinic/hospital department [facility] CLIA# [id number] [address] [place] [address] * FECAL LEUKOCYTES STAIN (09/28/2008 12:[address] JUSTICE) FINAL REPORT Rare WBC's seen [facility] Stool specimen (specimen) 09/28/2008 12:[address] JUSTICE 09/28/2008 1:[address] JUSTICE Cristela Gant MD MICROBIOLOGY - GENER AL ORDERABLES Performing Organization Address [facility] Phone Number INTERFACE SYSTEM Refer to clinic/hospital department [facility] CLIA# [id number] [address] [place] [address] * STOOL CULTURE (09/28/2008 12:[address] JUSTICE) FINAL REPORT ? No Salmonella isolated. No Shigella isolated. No Escherichia coli serogroup O157:H7 isolated. No Camplylobacter isolated. ? [facility] Stool specimen (specimen) 09/28/2008 12:[address] JUSTICE 09/28/2008 1:[address] JUSTICE Cristela Gant MD MICROBIOLOGY - GENER AL ORDERABLES Performing Organization Address [facility] Phone Number INTERFACE SYSTEM Refer to clinic/hospital department [facility] CLIA# [id number] [address] [employer] [place] [place] [address] * CLOSTRIDIUM DIFFICILE TOXIN (09/28/2008 12:[address] JUSTICE) FINAL REPORT ? NO Clostridium difficile Toxin A or B detected by EIA. A negative result does not rule out C. difficile associated diarrhea or colitis. ? [facility] Stool specimen (specimen) 09/28/2008 12:[address] JUSTICE 09/28/2008 1:[address] JUSTICE Cristela Gant MD MICROBIOLOGY - GENER AL ORDERABLES Performing Organization Address [facility] Phone Number INTERFACE SYSTEM Refer to clinic/hospital department [facility] CLIA# [id number] [address] [place] [address] documented in this encounter Visit Diagnoses Diagnosis Blood in stool documented in this encounter Care Teams Gambling Counsellor Relationship Specialty Start Date End Date Inderjit Narayan DO [address] [place] [phone] PCP - General Family Practice 04/09/23 08/29/23 documented as of this encounter
--- OUTSIDE RECORDS SUMMARY | 2024-08-19 14:02 | XMS_ITS | Encounter Summary ---
Author Organization [facility] Address [address] [place] [address] Care Team Providers Care Pearl Cutter Name Role Phone Unavailable Primary Care [...] Conversion, History - 01/11/2009 11:[address] [place] [address] cc: Cristela Gant MD ADDENDUM TO COLONOSCOPY REPORT There were a few scattered diverticula in the left colon seen in addition to the already reported findings. BRIA:MEDQ Dictated by: Cristela Gant MD Cristela Gant MD Result Type: GASTROENTEROLOGY Result Date: September 28, 2008 02:25 PM Result Status: UNREVIEWED MOBILE [employer]ODUCTS * Conversion, History - 01/11/2009 11:[address] [place], [place] [address] cc: MD Ciro Stone D.O. COLONOSCOPY REPORT [...] regularity. SCOPE PCF-[id number]. MEDICATIONS Propofol per anesthesia. HOTEL VALET ATTENDANT Cristela Gant MD COMPLICATIONS None. HISTORY/INDICATIONS Mr. [...] 28, 2008 11:29 AM Result Status: UNREVIEWED [employer]BI[employer]ODU[employer] documented in this encounter Plan of Treatment Not on file documented as of this encounter Visit Diagnoses Not on filedocumented in this encounter
--- OUTSIDE RECORDS SUMMARY | 2024-08-19 14:02 | XMS_ITS | Encounter Summary ---
Author Organization [facility] Address [address] [place] [address] Care Team Providers Care Heavy Machinery Operator Name Role Phone Inderjit Narayan DO Primary Care Provider + Encounter Details Date Type Department Care Team (Late st Contact Info) Description 09/14/2005 Outpatient Historical [facility] Medicine - [facility] [address] [facility] [address] [place] [address] Tayler Viera MD [address] [place] [address] Social History Tobacco Use Types [...] on filedocumented in this encounter Care Teams Heavy Machinery Operator Relationship Specialty Start Date End Date Inderjit Narayan DO [facility] [place] [address] PCP - General Family Practice 04/09/23 08/29/23 documented as of this encounter
--- OUTSIDE RECORDS SUMMARY | 2024-08-19 14:02 | XMS_ITS | Encounter Summary ---
Author Organization [facility] Address [address] [place] [address] Care Team Providers Care Business Manager College Or University Name Role Phone Inderjit Narayan DO Primary Care Provider + Encounter Details Date Type Department Care Team (Late st Contact Info) Description 07/23/1999 Outpatient Historical [facility] Medicine - [facility] [address] [facility] [address] [place] [address] Tayler Viera MD [address] [place] [address] Social History Tobacco Use Types [...] on filedocumented in this encounter Care Teams Business Manager College Or University Relationship Specialty Start Date End Date Inderjit Narayan DO [facility] [place] [address] PCP - General Family Practice 04/09/23 08/29/23 documented as of this encounter
--- OUTSIDE RECORDS SUMMARY | 2024-08-19 14:02 | XMS_ITS | Encounter Summary ---
Author Organization [facility] Address [address] [place] [address] Care Team Providers Care Seed Production Field Supervisor Name Role Phone Inderjit Narayan DO Primary Care Provider + Encounter Details Date Type Department Care Team (Late st Contact Info) Description 03/06/2005 Outpatient Historical [facility] Medicine - [facility] [address] [facility] [address] [place] [address] Tayler Viera MD [address] [place] [address] Social History Tobacco Use Types [...] on filedocumented in this encounter Care Teams Seed Production Field Supervisor Relationship Specialty Start Date End Date Inderjit Narayan DO [facility] [place] [address] PCP - General Family Practice 04/09/23 08/29/23 documented as of this encounter
--- OUTSIDE RECORDS SUMMARY | 2024-08-19 14:02 | XMS_ITS | Encounter Summary ---
Author Organization [facility] Address [address] [place] [address] Care Team Providers Care Deck Cadet Name Role Phone Inderjit Narayan DO Primary Care Provider + Encounter Details Date Type Department Care Team (Late st Contact Info) Description 09/08/2006 Outpatient Historical [facility] Medicine - [facility] [address] [facility] [address] [place] [address] Tayler Viera MD [address] [place] [address] Social History Tobacco Use Types [...] on filedocumented in this encounter Care Teams Deck Cadet Relationship Specialty Start Date End Date Inderjit Narayan DO [facility] [place] [address] PCP - General Family Practice 04/09/23 08/29/23 documented as of this encounter
--- OUTSIDE RECORDS SUMMARY | 2024-08-19 14:02 | XMS_ITS | Encounter Summary ---
Author Organization [facility] Address [address] [place] [address] Care Team Providers Care Aircraft Maintenance Manager Name Role Phone Inderjit Narayan DO Primary Care Provider + Encounter Details Date Type Department Care Team (Late st Contact Info) Description 11/20/2008 Outpatient Historical [facility] Cristela Gant MD [address] [place] [address] Blood in Stool Social History [...] stool documented in this encounter Care Teams Aircraft Maintenance Manager Relationship Specialty Start Date End Date Inderjit Narayan DO [address] [place] [phone] PCP - General Family Practice 04/09/23 08/29/23 documented as of this encounter
--- OUTSIDE RECORDS SUMMARY | 2024-08-19 14:02 | XMS_ITS | Encounter Summary ---
Author Organization [facility] Address [address] [place] [address] Care Team Providers Care Thread Pulling Machine Attendant Name Role Phone Inderjit Narayan DO Primary Care Provider + Encounter Details Date Type Department Care Team (Late st Contact Info) Description 06/30/1999 Outpatient Historical [facility] Medicine - [facility] [address] [facility] [address] [place] [address] Tayler Viera MD [address] [place] [address] Social History Tobacco Use Types [...] on filedocumented in this encounter Care Teams Thread Pulling Machine Attendant Relationship Specialty Start Date End Date Inderjit Narayan DO [facility] [place] [place] [address] PCP - General Family Practice 04/09/23 08/29/23 documented as of this encounter
--- OUTSIDE RECORDS SUMMARY | 2024-08-19 14:02 | XMS_ITS | Encounter Summary ---
Author Organization [facility] Address [address] [place] [address] Care Team Providers Care Phosphoric Acid Operator Name Role Phone Unavailable Primary Care Provider Unavailabl e Reason for Visit * Reason Onset Date Comments Melena 09/21/2008 bright red blood in stool Encounter Details Date Type Department Care Team (Late st Contact Info) Description 09/21/[address] [facility] Medicine - [facility] [address] [facility] [address] [place] [address] Ciro Fernandez, DO [address] [facility] [address] [place] [address] Melena (bright red blood in [...] and he can take imodium for cramping CENTER ASSISTANT * Telephone Encounter - Ciro Fernandez - 09/21/2008 12:52 PM CST Okay. If it is bright red and continuing you need to be seen either by me here, or at an C/ED. Continue with good water intake. CENTER ASSISTANT * Telephone Encounter - Clint Lambert N [...] and he can not sit that long. CENTER ASSISTANT documented in this encounter Plan of Treatment Not on file documented as of this encounter Visit Diagnoses Not on filedocumented in this encounter
--- OUTSIDE RECORDS SUMMARY | 2024-08-19 14:02 | XMS_ITS | Encounter Summary ---
Author Organization [facility] Address [address] [place] [address] Care Team Providers Care Contractor General Building Name Role Phone Inderjit Narayan DO Primary Care Provider + Encounter Details Date Type Department Care Team (Late st Contact Info) Description 05/11/2003 Outpatient Historical [facility] Medicine - [facility] [address] [facility] [address] [place] [address] Tayler Viera MD [address] [place] [address] Social History Tobacco Use Types [...] on filedocumented in this encounter Care Teams Contractor General Building Relationship Specialty Start Date End Date Inderjit Narayan DO [facility] [place] [address] PCP - General Family Practice 04/09/23 08/29/23 documented as of this encounter
--- OUTSIDE RECORDS SUMMARY | 2024-08-19 14:02 | XMS_ITS | Encounter Summary ---
Author Organization [facility] Address [address] [place] [address] Care Team Providers Care Shipping And Receiving Assistant Name Role Phone Inderjit Narayan DO Primary Care Provider + Encounter Details Date Type Department Care Team (Late st Contact Info) Description 09/17/2000 Outpatient Historical [facility] Medicine - [facility] [address] [facility] [address] [place] [address] Tayler Viera MD [address] [place] [address] Social History Tobacco Use Types [...] on filedocumented in this encounter Care Teams Shipping And Receiving Assistant Relationship Specialty Start Date End Date Inderjit Narayan DO [facility] [place] [address] PCP - General Family Practice 04/09/23 08/29/23 documented as of this encounter
--- OUTSIDE RECORDS SUMMARY | 2024-08-19 14:02 | XMS_ITS | Encounter Summary ---
Author Organization [facility] Address [address] [place] [address] Care Team Providers Care Male Infertility Specialist Name Role Phone Inderjit Narayan DO Primary Care Provider + Encounter Details Date Type Department Care Team (Late st Contact Info) Description 06/09/1999 Outpatient Historical [facility] Medicine - [facility] [address] [facility] [address] [place] [address] Tayler Viera MD [address] [place] [address] Social History Tobacco Use Types [...] on filedocumented in this encounter Care Teams Male Infertility Specialist Relationship Specialty Start Date End Date Inderjit Narayan DO [facility] [facility] [place] [address] PCP - General Family Practice 04/09/23 08/29/23 documented as of this encounter
--- OUTSIDE RECORDS SUMMARY | 2024-08-19 14:02 | XMS_ITS | Encounter Summary ---
Author Organization [facility] Address [address] [place] [address] Care Team Providers Care Humanities And Languages Professor Name Role Phone Inderjit Narayan DO Primary Care Provider + Encounter Details Date Type Department Care Team (Late st Contact Info) Description 09/24/2004 Outpatient Historical [facility] Medicine - [facility] [address] [facility] [address] [place] [address] Tayler Viera MD [address] [place] [address] Social History Tobacco Use Types [...] on filedocumented in this encounter Care Teams Humanities And Languages Professor Relationship Specialty Start Date End Date Inderjit Narayan DO [facility] [place] [address] PCP - General Family Practice 04/09/23 08/29/23 documented as of this encounter
--- OUTSIDE RECORDS SUMMARY | 2024-08-19 14:02 | XMS_ITS | Encounter Summary ---
Author Organization [facility] Address [address] [place] [address] Care Team Providers Care Broadcast Operations Manager Name Role Phone Inderjit Narayan DO Primary Care Provider + Encounter Details Date Type Department Care Team (Late st Contact Info) Description 07/16/2000 Outpatient Historical [facility] Medicine - [facility] [address] [facility] [address] [place] [address] Tayler Viera MD [address] [place] [address] Social History Tobacco Use Types [...] on filedocumented in this encounter Care Teams Broadcast Operations Manager Relationship Specialty Start Date End Date Inderjit Narayan DO [facility] [place] [address] PCP - General Family Practice 04/09/23 08/29/23 documented as of this encounter
--- OUTSIDE RECORDS SUMMARY | 2024-08-19 14:02 | XMS_ITS | Encounter Summary ---
Author Organization [facility] Address [address] [place] [address] Care Team Providers Care Environmental Research Project Manager Name Role Phone Inderjit Narayan DO Primary Care Provider + Encounter Details Date Type Department Care Team (Late st Contact Info) Description 05/04/2003 Outpatient Historical [facility] Medicine - [facility] [address] [facility] [address] [place] [address] Tayler Viera MD [address] [place] [address] Social History Tobacco Use Types [...] filedocumented in this encounter Care Teams Environmental Research Project Manager Relationship Specialty Start Date End Date Inderjit Narayan DO [facility] [place] [address] PCP - General Family Practice 04/09/23 08/29/23 documented as of this encounter
--- OUTSIDE RECORDS SUMMARY | 2024-08-19 14:02 | XMS_ITS | Encounter Summary ---
Author Organization [facility] Address [address] [place] [address] Care Team Providers Care Partner Integration Planner Name Role Phone Inderjit Narayan DO Primary Care Provider + Encounter Details Date Type Department Care Team (Late st Contact Info) Description 11/21/2002 Outpatient Historical [facility] Medicine - [facility] [address] [facility] [address] [place] [address] Tayler Viera MD [address] [...] on filedocumented in this encounter Care Teams Partner Integration Planner Relationship Specialty Start Date End Date Inderjit Narayan DO [facility] [place] [address] PCP - General Family Practice 04/09/23 08/29/23 documented as of this encounter
--- OUTSIDE RECORDS SUMMARY | 2024-08-19 14:02 | XMS_ITS | Encounter Summary ---
Author Organization [facility] Address [address] [place] [address] Care Team Providers Care Temperature Inspector Name Role Phone Unavailable Primary Care Provider Unavailabl e Reason for Visit * Reason Comments Kidney Stone possible Encounter Details Date Type Department Care Team (Late st Contact Info) Description 07/09/2008 4:00 PM ORDER DESK CLERK Office Visit [facility] Medicine - [facility] [address] [facility] [address] [place] [address] Ciro Fernandez, DO [address] [facility] [address] [place] [address] Dysuria (Primary Dx); Hesitancy; Screening [...] Comments Blood Pressure 130/88 07/09/2008 3:53 PM ORDER DESK CLERK Pulse 84 07/09/2008 3:53 PM ORDER DESK CLERK Temperature 36.9 ??C (98.5 ??F) 07/09/2008 3:53 PM CS T Respiratory Rate - - Oxygen Saturation - - Inhaled Oxygen Concentration - - Weight 100.7 kg (222 lb) 07/09/2008 3:53 PM ORDER DESK CLERK Height - - Body Mass Index - [...] and Alternatives of the current treatment regimen. R DESK CLERK documented in this encounter Plan of Treatment Not on file documented as of this encounter Procedures Procedure Name Priority Date/Time Associated Diagnosis Comments POC OCCULT BLOOD UP TO 3 CARDS Routine 04/22/2009 3:38 PM CDT Dysuria Hesitancy Screening for Prostate Cancer POC URINALYSIS DIPSTICK NON AUTOMATED Routine 07/09/2008 4:46 PM ORDER DESK CLERK Dysuria documented in this encounter Results * POC OCCULT BLOOD UP TO 3 CARDS (04/22/2009 3:38 PM CDT) OCCULT BLOOD #1 neg [facility] OCCULT BLOOD #2 [facility] OCCULT BLOOD #3 [facility] Stool specimen (specimen) Ciro Fernandez DO POINT OF CARE [facility] * POC URINALYSIS DIPSTICK NON AUTOMATED (07/09/2008 4:46 PM ORDER DESK CLERK) [facility] CLARITY [...]
--- OUTSIDE RECORDS SUMMARY | 2024-08-19 14:02 | XMS_ITS | Encounter Summary ---
Author Organization [facility] Address [address] [place] [address] Care Team Providers Care Director Hardware Name Role Phone Inderjit Narayan DO Primary Care Provider + Encounter Details Date Type Department Care Team (Late st Contact Info) Description 10/29/2003 Outpatient Historical [facility] Medicine - [facility] [address] [facility] [address] [place] [address] Tayler Viera MD [address] [place] [address] Social History Tobacco Use Types [...] on filedocumented in this encounter Care Teams Director Hardware Relationship Specialty Start Date End Date Inderjit Narayan DO [facility] [place] [address] PCP - General Family Practice 04/09/23 08/29/23 documented as of this encounter
--- OUTSIDE RECORDS SUMMARY | 2024-08-19 14:02 | XMS_ITS | Encounter Summary ---
Author Organization [facility] Address [address] [place] [address] Care Team Providers Care Retail Security Professional Name Role Phone Inderjit Narayan DO Primary Care Provider + Encounter Details Date Type Department Care Team (Late st Contact Info) Description 09/02/2007 Outpatient Historical [facility] - [facility] [address] [facility] [address] [place] [address] Tayler Viera MD [address] [place] [address] Social History Tobacco Use Types [...] filedocumented in this encounter Care Teams Retail Security Professional Relationship Specialty Start Date End Date Inderjit Narayan DO [facility] [place] [address] PCP - General Family Practice 04/09/23 08/29/23 documented as of this encounter
--- OUTSIDE RECORDS SUMMARY | 2024-08-19 14:02 | XMS_ITS | Encounter Summary ---
Author Organization [facility] Address [address] [place] [address] Care Team Providers Care Pharmacy Sales Representative Name Role Phone Inderjit Narayan DO Primary Care Provider + Encounter Details Date Type Department Care Team (Late st Contact Info) Description 06/27/2002 Outpatient Historical [facility] Medicine - [facility] [address] [facility] [address] [place] [address] Tayler Viera MD [address] [place] [address] Social History Tobacco Use Types [...] on filedocumented in this encounter Care Teams Pharmacy Sales Representative Relationship Specialty Start Date End Date Inderjit Narayan DO [facility] [address] PCP - General Family Practice 04/09/23 08/29/23 documented as of this encounter
--- OUTSIDE RECORDS SUMMARY | 2024-08-19 14:02 | XMS_ITS | Encounter Summary ---
Author Organization [facility] Address [address] [place] [address] Care Team Providers Care Mail Order Clerk Name Role Phone Inderjit Narayan DO Primary Care Provider + Encounter Details Date Type Department Care Team (Late st Contact Info) Description 06/23/1999 Outpatient Historical [facility] Medicine - [facility] [address] [facility] [address] [place] [address] Tayler Viera MD [address] [place] [address] Social History Tobacco Use Types [...] on filedocumented in this encounter Care Teams Mail Order Clerk Relationship Specialty Start Date End Date Inderjit Narayan DO [facility] [place] [address] PCP - General Family Practice 04/09/23 08/29/23 documented as of this encounter
--- OUTSIDE RECORDS SUMMARY | 2024-08-19 14:02 | XMS_ITS | Encounter Summary ---
Author Organization [facility] Address [address] [place] [address] Care Team Providers Care Glass Lathe Operator Name Role Phone Inderjit Narayan DO Primary Care Provider + Encounter Details Date Type Department Care Team (Late st Contact Info) Description 01/31/2002 Outpatient Historical [facility] Medicine - [facility] [address] [facility] [address] [place] [address] Tayler Viera MD [address] [place] [address] Social History Tobacco Use Types [...] on filedocumented in this encounter Care Teams Glass Lathe Operator Relationship Specialty Start Date End Date Inderjit Narayan DO [facility] [address] PCP - General Family Practice 04/09/23 08/29/23 documented as of this encounter
--- OUTSIDE RECORDS SUMMARY | 2024-08-19 14:02 | XMS_ITS | Encounter Summary ---
Author Organization [facility] Address [address] [place] [address] Care Team Providers Care Chief Commercial Officer Name Role Phone Unavailable Primary Care Provider Unavailabl e Encounter Details Date Type Department Care Team (Late st Contact Info) Description 10/03/[address] [facility] Medicine - [facility] [address] [facility] [address] [place] [address] Ciro Fernandez DO [address] [facility] [address] [place] [address] Blood in Stool; Internal Hemorrhoid; [...]
--- OUTSIDE RECORDS SUMMARY | 2024-08-19 14:02 | XMS_ITS | Encounter Summary ---
Author Organization [facility] Address [address] [place] [address] Care Team Providers Care Employee Welfare Manager Name Role Phone Inderjit Narayan DO Primary Care Provider + Encounter Details Date Type Department Care Team (Late st Contact Info) Description 06/07/2006 Outpatient Historical [facility] Medicine - [facility] [address] [facility] [place] [address] Najma Aquino MD [address] [facility] [address] [place] [address] Social History Tobacco Use Types [...] on filedocumented in this encounter Care Teams Employee Welfare Manager Relationship Specialty Start Date End Date Inderjit Narayan DO [address] [facility] [place] [address] PCP - General Family Practice 04/09/23 08/29/23 documented as of this encounter
--- OUTSIDE RECORDS SUMMARY | 2024-08-19 14:02 | XMS_ITS | Encounter Summary ---
Author Organization [facility] Address [address] [place] [address] Care Team Providers Care Acquisition Consultant Name Role Phone Inderjit Narayan DO Primary Care Provider + Encounter Details Date Type Department Care Team (Late st Contact Info) Description 01/30/2002 Outpatient Historical [facility] Medicine - [facility] [address] [facility] [address] [place] [address] Tayler Viera MD [address] [place] [address] Social History Tobacco Use Types [...] on filedocumented in this encounter Care Teams Acquisition Consultant Relationship Specialty Start Date End Date Inderjit Narayan DO [facility] [place] [address] PCP - General Family Practice 04/09/23 08/29/23 documented as of this encounter
== END 2024-08-12 11:45 | disposition home or self-care (01) ==
PROVIDERS: Emergency Provider Student in an Organized Health Care Education/Training Program; PCP Student in an Organized Health Care Education/Training Program
DX: U07.1 COVID-19 (principal); J06.9 Acute upper respiratory infection, unspecified; I10 Essential (primary) hypertension; E78.5 Hyperlipidemia, unspecified; E66.3 Overweight; Z87.442 Personal history of urinary calculi; Z79.899 Other long term (current) drug therapy
CPT/HCPCS: 71046; 87636; 99283; A9270

== ENCOUNTER 2024-09-05 17:55 | Emergency (ER) | payer MEDICARE, OTHER, SELFPAY ==
--- NOTE | 2024-09-05 18:00 | ED_ITS ---
HPI - URI/Sore Throat General Chief Complaint: Upper Respiratory Infection Stated Complaint: Cough/Fever Time Seen by Provider: 09/05/24 18:57 Source: patient and RN notes reviewed Mode of arrival: ambulatory Limitations: no limitations History of Present Illness HPI Narrative: 74-year-old male presents with concern for cough, fever, general malaise. He was diagnosed with COVID the beginning of August. reports he has had a cough since then, however he had for 6 months reports symptoms worsened today with fever, chills, general malaise. MD elicited complaint: fever and cough Related Data Home Medications ?Medication ?Instructions ?Recorded ?Confirmed ?Last Taken ?Type losartan 50 mg tablet 50 mg PO DAILY 06/28/22 01/02/24 06/28/22 07:00 History montelukast 10 mg tablet 10 mg PO HS 06/28/22 01/02/24 06/27/22 21:00 History simvastatin 40 mg tablet 40 mg PO DAILY 06/28/22 01/02/24 06/28/22 07:00 History tamsulosin 0.4 mg capsule 0.4 mg PO DAILY 01/02/24 01/02/24 Unknown History Allergies Allergy/AdvReac Type Severity Reaction Status Date / Time No Known Allergies Allergy Verified 09/05/24 19:02 Review of Systems Review of Systems: CONSTITUTIONAL: Reports malaise, chills, sweats, fever. EYES: Denies visual changes, redness, or discharge. ENT: Reports rhinorrhea, congestion CARDIOVASCULAR: Denies chest pain, palpitations, or edema. RESPIRATORY: Reports cough. Denies dyspnea. GASTROINTESTINAL: Denies abdominal pain, nausea, vomiting, diarrhea SKIN: Denies rash or itching. MUSCULOSKELETAL: Denies myalgia. NEUROLOGIC: Denies headache. 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 Smoking status: Never smoker Alcohol intake: never Substance use: never Lack of Transportation: No Lack of Food: Never True Current Housing: I Have Housing Concerned About Future Housing: No Difficulty Paying Gas/Electric Bills: No Difficulty Paying for Meds: No Currently Unemployed: No Education: Bachelor's Degree Difficulty w/ Childcare or Family Care: No Spiritual care concerns: No Comments At time of signature, agree with nursing past medical, surgical, social and family history. There is no relevant family history pertinent to the presenting complaint Exam Narrative: GENERAL: Nontoxic-appearing, well-nourished, and in no acute distress. HEAD: Normocephalic EYES: PERRLA, conjunctivae clear ENT: Nares clear. Mucous membranes moist. TM pearly wooten with dull light reflex bilaterally; no tragal tenderness. NECK: Supple. No lymphadenopathy CHEST: Clear to auscultation, breath sounds equal. No wheezing, rhonchi, rales, or stridor. No respiratory distress, speaks in full sentences. HEART: Regular rate and rhythm. No murmur heard. SKIN: Warm, dry, no rash. NEURO: Alert and oriented x3. PSYCH: Normal mood and affect Course Course Emergency Course: Patient is aware of diagnosis, understands and agrees to treatment plan. Anticipatory guidance given. Patient agrees to follow-up as directed and is aware of reasons to seek care at the emergency department. Portions of this record may have been created with voice recognition software Level of Care: Express Care Visit Vital Signs Vital signs: Reviewed. MDM - URI/Sore Throat MDM Narrative Medical decision making narrative: Differential diagnosis considered: Patrick virus, strep pharyngitis, allergic rhinitis, upper respiratory tract infection, sinusitis, rhinosinusitis, nasopharyngitis. viral pharyngitis, otitis media, otitis externa, pneumonia, bronchitis, viral cough syndrome, viral syndrome, and influenza. Exam findings show no acute concerns or changes; patient is non-toxic appearing and is in no distress. Patient is appropriate for outpatient treatment and follow-up. Lab Data Attestation: I reviewed the patient's lab results. Critical Care Time Critical Care Time Critical Care Time: No Discharge Plan Discharge Clinical Impression: Lower respiratory tract infection Patient Disposition: Home, Self-Care Condition: Stable Instructions: Fever in Adults (ED), Acute Bronchitis (ED) Additional Instructions: 1) Please follow-up with your primary care doctor in the next 1-2 days. 2) If you have any worsening of symptoms or any other urgent concerns please go to the ER. 3) Please take medications as prescribed and continue taking your home medications as usual. 4) Please read and follow information included in discharge instructions. Patient Language: Mohawk Prescriptions: New azithromycin [Zithromax Z-Geradro] 250 mg tablet See Rx Instructions .ROUTE .COMPLEX Qty: 6 0RF Rx Instructions: take 500 mg today (day 1), then 250 mg for 4 days (days 2-5) methylprednisolone [Medrol (Gerardo)] 4 mg tablets,dose pack See Rx Instructions .ROUTE .COMPLEX Qty: 21 0RF Rx Instructions: orally per package directions No Action tamsulosin 0.4 mg capsule 0.4 mg PO DAILY simvastatin 40 mg tablet 40 mg PO DAILY losartan 50 mg tablet 50 mg PO DAILY montelukast 10 mg tablet 10 mg PO HS Follow-up/Referrals: PHYSICIAN,ROCKET SCIENTIST [Primary Care Provider] - Time of Disposition: 19:04
[2024-09-05 18:34] VITALS: BP 148/91; PULSE 91; RESP 16; TEMP 37.6; O2SAT 96
[2024-09-05 18:55] LABS: EDINFLUASCREEN Negative (Negative); EDINFLUBSCREEN Negative (Negative)
== END 2024-09-05 19:09 | disposition home or self-care (01) ==
PROVIDERS: Emergency Provider Nurse Practitioner
DX: J22 Unspecified acute lower respiratory infection (principal); I10 Essential (primary) hypertension; E78.5 Hyperlipidemia, unspecified; Z86.16 Personal history of COVID-19
CPT/HCPCS: 87804; 99213; G0463

== ENCOUNTER 2024-09-14 11:27 | Emergency (ER) | payer MEDICARE, OTHER, SELFPAY ==
[2024-09-14] VITALS (7 sets, daily range): BP systolic 98–135; BP diastolic 53–71; PULSE 68–74; RESP 16–20; TEMP 36.4; O2SAT 97–100
--- NOTE | ~2024-09-14 | XR_ITS ---
Portable chest x-ray Comparison: 08/12/2024 Clinical History: Shortness of breath Findings: Lungs are clear, without focal consolidation or pleural effusion. Cardiomediastinal silho uette is stable. Bones and soft tissues are unremarkable. Impression: No acute abnormality. Reviewed, dictated and finalized at location . [facility] Impression: No acute abnormality.
--- NOTE | ~2024-09-14 | CT_ITS ---
EXAMINATION: CTA chest PE protocol DATE: 09/14/2024 13:24 INDICATION: Shortness of breath. TECHNIQUE: Computed tomography angiography (CTA) of the chest was performed with 100 mL Omnipaque-350 intravenous contrast timed to evaluate the pulmonary arteries. Coronal maximum intensity projection 3D-reconstructions were created by the technologist. Automated exposure control and iterative reconst ruction technique were employed. The dose-length product was 697.00 mGy-cm. COMPARISON: CT abdomen and pelvis 06/28/2022 FINDINGS: The lungs demonstrate mild atelectasis. No pleural effusion. The heart size is normal. Ther e are coronary artery calcifications. No pericardial effusion. There is no pulmonary embolus. There i s cortical thinning of the kidneys. There are at least 8 stones in right kidney measuring up to 5 mm. There are at least 3 stones in left kidney measuring up to 6 mm. There is thoracolumbar dextroscolio sis and moderate spondylosis. There is mild chronic anterior wedging of multiple vertebral bodies. IMPRESSION: 1. No pulmonary embolus. Reviewed, dictated and finalized at location A. LY REQUIREMENTS OFFICER IMPRESSION: 1. No pulmonary embolus.
--- OUTSIDE RECORDS SUMMARY | 2024-09-14 11:45 | XMS_ITS | Encounter Summary ---
Author Organization [facility] Address [address] [place] [address] Care Team Providers Care Reading Intervention Teacher Name Role Phone Inderjit Narayan DO Primary Care Provider + Encounter Details Date Type Department Care Team (Late st Contact Info) Description 09/08/2006 Outpatient Historical [facility] Medicine - [facility] [address] [facility] [address] [place] [address] Tayler Viera MD [address] [place] [address] Social History Tobacco Use Types Packs/Day Years Used Date Smoking Tobacco: Never Assessed Sex and Gender Information Value Date Recorded Sex Assigned at Not on file Legal 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
--- OUTSIDE RECORDS SUMMARY | 2024-09-14 11:45 | XMS_ITS | Encounter Summary ---
Author Organization [facility] Address [address] [place] [address] Care Team Providers Care Childcare Provider Name Role Phone Inderjit Narayan DO Primary Care Provider + Encounter Details Date Type Department Care Team (Late st Contact Info) Description 06/07/2006 Outpatient Historical [facility] Medicine - [facility] [address] 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
--- OUTSIDE RECORDS SUMMARY | 2024-09-14 11:45 | XMS_ITS | Encounter Summary ---
Author Organization [facility] Address [address] [place] [address] Care Team Providers Care Endless Steamer Tender Name Role Phone Inderjit Narayan DO Primary Care Provider + Encounter Details Date Type Department Care Team (Late st Contact Info) Description 09/02/2007 Outpatient Historical [facility] Medicine - [facility] [address] [facility] [address] [place] [address] Tayler Viera MD [address] [place] [address] Social History Tobacco Use Types Packs/Day Years Used Date Smoking Tobacco: Never Assessed Sex and Gender Information Value Date Recorded Sex Assigned at Not on file Legal Sex Male 4:12 AM INTERACTIVE PRODUCER Gender Identity Not on file Sexual Orientation Not on file documented as of this encounter Plan of Treatment Not on file documented as of this encounter Visit Diagnoses Not on filedocumented in this encounter Care Teams Endless Steamer Tender Relationship Specialty Start Date End Date Inderjit Narayan DO [address] [place] [phone] PCP - General Family Practice 04/09/23 08/29/23 documented as of this encounter
--- OUTSIDE RECORDS SUMMARY | 2024-09-14 11:45 | XMS_ITS | Encounter Summary ---
Author Organization [facility] Address [address] [place] [address] Care Team Providers Care Vendor Relationship Manager Name Role Phone Inderjit Narayan DO Primary Care Provider + Reason for Visit * Reason Onset Date Comments Advice 09/14/2024 Encounter Details Date Type Department Care Team (Late st Contact Info) Description 09/14/2024 Telephone [facility] [address] [place] [address] Inderjit Narayan DO [address] [place] [address] Advice Social History Tobacco Use Types Packs/Day Years Used Date Smoking Tobacco: Never Passive Smoke Exposure: Never Smokeless Tobacco: Never Alcohol Use Standard Drinks/Week Comments Never 0 (1 standard drink = 0.6 oz pur e alcohol) PHQ-2 Answer Date Recorded Patient Health Questionnaire-2 Score 0 11/17/2023 Sex and Gender Information Value Date Recorded Sex Assigned at Male 09/08/2024 2:02 PM HOME SCHOOL LIAISON OFFICER Legal Sex Male 10:29 AM HOME SCHOOL LIAISON OFFICER Gender Identity Not on file Sexual Orientation Not on file Occupation Industry Job Start Date Job End Date Not on file Not on file Not on file Not on file documented as of this encounter Progress Notes * Jessica Farr - 09/14/2024 10:30 AM CST Pt called in stating took oxygen sats and it was coming up in the low 80s. Please advise SCHOOL LIAISON OFFICER documented in this encounter Plan of Treatment Upcoming Encounters Date Type Department Care Team (Latest Contact Info) Description 09/15/2024 10:00 AM HOME SCHOOL LIAISON OFFICER Office Visit [facility] [place] [address] [place] [address] Inderjit Narayan DO [address] [place] [address] 10/05/2024 3:00 PM HOME SCHOOL LIAISON OFFICER Hospital Encounter [facility] [place] [address] Guido Rider DO [address] [facility] [address] [place] [address] 10/13/2024 10:30 AM HOME SCHOOL LIAISON OFFICER Office Visit [facility] [address] [facility] [address] [place] [address] Guido Rider [address] [facility] [address] [place] [address] 01/08/2025 2:20 PM CDT Office Visit [facility] Internal [place] [address] [place] [address] Inderjit Narayan DO [address] [place] [address] documented as of this encounter Visit Diagnoses Not on filedocumented in this encounter Care Teams Vendor Relationship Manager Relationship Specialty Start Date End Date Inderjit Narayan DO [address] [place] [address] PCP - General 12/19/22 documented as of this encounter
--- OUTSIDE RECORDS SUMMARY | 2024-09-14 11:45 | XMS_ITS | Encounter Summary ---
Author Organization [facility] Address [address] [place] [address] Care Team Providers Care Opening Machine Cleaner Name Role Phone Inderjit Narayan DO Primary Care Provider + Encounter Details Date Type Department Care Team (Late st Contact Info) Description 09/24/2004 Outpatient Historical [facility] Medicine - [facility] [address] [facility] [address] [place] [address] Tayler Viera MD [address] [place] [address] Social History Tobacco Use Types Packs/Day Years Used Date Smoking Tobacco: Never Assessed Sex and Gender Information Value Date Recorded Sex Assigned at Not on file 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
--- OUTSIDE RECORDS SUMMARY | 2024-09-14 11:45 | XMS_ITS | Encounter Summary ---
Author Organization [facility] Address [address] [place] [address] Care Team Providers Care Senior Executive Assistant Name Role Phone Inderjit Narayan DO Primary Care Provider + Encounter Details Date Type Department Care Team (Late st Contact Info) Description 02/05/2006 Outpatient Historical [facility] Medicine - [facility] [address] [facility] [address] [place] [address] Tayler Viera MD [address] [place] [address] Social History Tobacco Use Types Packs/Day Years Used Date Smoking Tobacco: Never Assessed Sex and Gender Information Value Date Recorded Sex Assigned at Not on file Legal 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
--- OUTSIDE RECORDS SUMMARY | 2024-09-14 11:45 | XMS_ITS | Encounter Summary ---
Author Organization [facility] Address [address] [place] [address] Care Team Providers Care Engraving Supervisor Name Role Phone Inderjit Narayan DO Primary Care Provider + Encounter Details Date Type Department Care Team (Late st Contact Info) Description 03/06/2005 Outpatient Historical [facility] Medicine - [facility] [address] [facility] [address] [place] [address] Tayler Viera MD [address] [place] [address] Social History Tobacco Use Types Packs/Day Years Used Date Smoking Tobacco: Never Assessed Sex and Gender Information Value Date Recorded Sex Assigned at Not on file Legal 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
--- OUTSIDE RECORDS SUMMARY | 2024-09-14 11:45 | XMS_ITS | Clinical Summary ---
Author Organization [facility] Address [address] [facility] [address] [place], [place] [address] Phone Care Team Providers Care Jackscrew Worker Name Role Phone Unavailable Primary Care Provider Unavailabl e Allergies Active Allergy Reactions Criticality Noted Date Comments Methylprednisolone Rash,Other (See Comments) Low 07/12/2012 Sulfamethoxazole-Trimethoprim Rash Low 2009 Medications UBIDECARENONE (CO Q-10 ORAL) Take by mouth. Active Cholecalciferol, Vitamin D3, (VITAMIN D3) 2,000 unit Capsule Take 1 Cap by mouth daily. 03/08/20 15 Active OMEPRAZOLE ORAL Take 20 mg by mouth. Active sod bicarb-sod chlor-neti pot ([place] Saline Nasal Neti Rinse) packet with rinse deviceIndications:Acute sinusitis with symptoms greater than 10 days 1 Dose Pack by sinus irrigation route 2 times daily. 07/27/20 22 Active simvastatin (ZOCOR) 40 mg tabletIndications:Pure hypercholesterolemia Take 1 Tablet (40 mg) by mouth late in the day. 90 Tablet 3 09/16/19 23 Active losartan (COZAAR) 50 mg tablet Take 1 Tablet (50 mg) by mouth daily. 90 Tablet 3 09/24/19 23 Active amoxicillin-clavulanate (AUGMENTIN) 875-125 mg tablet Take 1 Tablet by mouth every 12 hours. 28 Tablet 10/22/19 23 Active Fluticasone Furoate (FLONASE SENSIMIST) 27.5 mcg/actuation Addison, Suspension Administer 2 Sprays in each nostril daily. 1 Gram 4 10/22/19 23 Active cetirizine-pseudoephedr ine sr 12 hour (ZyrTEC-D) 5-120 mg tablet Take 1 Tablet by mouth 2 times daily. 72 Tablet 5 10/28/19 23 Active montelukast (SINGULAIR) 10 mg tabletIndications:Cough TAKE 1 TABLET BY MOUTH EVERYDAY AT BEDTIME 90 Tablet 1 03/08/20 23 Active Active Problems Problem Noted Date Diagnosed [...] Date IFG (impaired fasting glucose) 12/14/2014 11/10/2016 Encounters Date Type Department Care Team Description 09/06/2024 External Device Data STL ABSTRACTION Provider, Abstract 08/31/2024 External Device Data ST[facility] ABSTRACTION Provider, Abstract from Last 3 Months Immunizations Immunization Administration Dates Next Due (ADACEL/BOOSTRIX)(10 YR UP) [...] on file Legal Sex Male 4:12 AM TAX SERVICES MANAGER Gender Identity Not on file Sexual Orientation Not on file Occupation Industry Job Start Date Job End Date Not on file Not on file Not on file Not on file Last Filed Vital Signs Vital Sign Reading Time Taken Comments Blood Pressure 119/73 04/09/2023 10:14 AM CDT Pulse 70 04/09/2023 10:14 AM CDT Temperature 36.2 C (97.2 F) 04/09/2023 10:08 AM CDT Respiratory Rate 14 04/09/2023 10:08 AM CDT [...] Additional history exists INFLUENZA VACCINE (#1) 2024 2, 05/15/2022, 07/12/2021, Additional history exists COVID-19 Vaccine ( - 2023-2 5 season) 2024 06/13/2021, 10/18/2020, 09/20/2020 RSV VACCINE (60+ or ) (1 - 1-dose 75+ series) 2027 COLORECTAL SCREENING 04/09/2028 04/09/2023, 04/09/2023, 09/01/2019, Additional history exists Colorectal Cancer Screening 04/09/2028 DTAP/TDAP/TD VACCINES (3 - T d or Tdap) 11/17/2028 11/17/2018, 08/09/2007 PNEUMOCOCCAL VACCINE 65+ YEARS Completed 11/17/2018 , 10/14/2017 Medical Devices Implanted Type Area Electronic Drafter Device Identifier Shelf Expiration Date Model / Serial / Lot Ralph Speedbridge W/ Biocmpst Swivelck [id number] - [id number] Implanted:Qty: 1 on 09/30/2018 by Nehemiah Castellano MD at [facility] [place] Right: Shoulder [employer] 08/08/2020 [id number] / / [id number] Procedures Procedure Name Priority Date/Time Associated Diagnosis Comments COLONOSCOPY REPORT 04/09/2023 10 :14 AM CDT OCCULT BLOOD IMMUNOASSAY, COLORECTAL SCREEN Routine 04/26/2019 9:19 PM CDT Screening for colon cancer from Last 3 Months or Most Recently Relevant to Health Maintenance Results * COLONOSCOPY REPORT (04/09/2023 10:14 AM CDT) Narrative Procedure Note Modesta Wise DO - 04/09/2023 10:14 AM CDT [facility] Endoscopy Patient Name: Brendon Aldana Procedure [...] Addenda: 0 Procedure Date: 04/09/2023 9:32:32 AM [address] [facility] [address] [place] [address] Modesta Wise DO GI PROCEDURE ORDERABLES Fin al Result * (ABNORMAL) OCCULT BLOOD IMMUNOASSAY, COLORECTAL SCREEN (04/26/2019 9:19 PM CDT) OCCULT BLOOD, STOOL Positive(A ) Negative 04/27/2019 11:28 PM CDT [facility] Stool STOOL SPECIMEN / Unknown Collection / Unknown 04/26/2019 9:19 PM CDT 04/27/2019 9:19 PM CDT Ciro Fernandez DO BODY FLUIDS AND STOOLS Final Res ult [facility] CLIA# [id number] [address] [facility] [place] [address] from Last 3 Months or Most Recently Relevant to [place] [address] MEDICARE PART A AND B [facility] Advance Directives For more information, please contact: [phone] * Full Code (Latest Code Status on [...]
--- OUTSIDE RECORDS SUMMARY | 2024-09-14 11:45 | XMS_ITS | Encounter Summary ---
Author Organization [facility] Address [address] [place] [address] Care Team Providers Care Television Receiver Analyzer Name Role Phone Inderjit Narayan DO Primary Care Provider + Encounter Details Date Type Department Care Team (Late st Contact Info) Description 09/14/2005 Outpatient Historical [facility] Medicine - [facility] [address] [facility] [address] [place] [address] Tayler Viera MD [address] [place] [address] Social History Tobacco Use Types Packs/Day Years Used Date Smoking Tobacco: Never Assessed Sex and Gender Information Value Date Recorded Sex Assigned at Not on file Legal Sex Male 4:12 AM UTILIZATION MANAGEMENT RN Gender Identity Not on file Sexual Orientation Not on file documented as of this encounter Plan of Treatment Not on file documented as of this encounter Visit Diagnoses Not on filedocumented in this encounter Care Teams Television Receiver Analyzer Relationship Specialty Start Date End Date Inderjit Narayan DO [address] [place] [phone] PCP - General Family Practice 04/09/23 08/29/23 documented as of this encounter
--- OUTSIDE RECORDS SUMMARY | 2024-09-14 11:45 | XMS_ITS | Encounter Summary ---
Author Organization [facility] Address [address] [place] [address] Care Team Providers Care Hand Former Name Role Phone Inderjit Narayan DO Primary Care Provider + Encounter Details Date Type Department Care Team (Late st Contact Info) Description 05/02/2007 Outpatient Historical [facility] Medicine - [facility] [address] [facility] 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
--- OUTSIDE RECORDS SUMMARY | 2024-09-14 11:46 | XMS_ITS | Encounter Summary ---
Author Organization [facility] Address [address] [place] [address] Care Team Providers Care Bench Assembler Operator Name Role Phone Inderjit Narayan DO Primary Care Provider + Encounter Details Date Type Department Care Team (Late st Contact Info) Description 04/16/2000 Outpatient Historical [facility] Medicine - [facility] [address] [facility] [address] [place] [address] Dimitry Powell MD [address] [facility] [address] [place] [address] Social History Tobacco Use Types Packs/Day Years Used Date Smoking Tobacco: Never Assessed Sex and Gender Information Value Date Recorded Sex Assigned at Not on file Legal Sex Male 4:12 AM SUPPORT CLERK Gender Identity Not on file Sexual Orientation Not on file documented as of this encounter Plan of Treatment Not on file documented as of this encounter Visit Diagnoses Not on filedocumented in this encounter Care Teams Bench Assembler Operator Relationship Specialty Start Date End Date Inderjit Narayan DO [address] [place] [phone] PCP - General Family Practice 04/09/23 08/29/23 documented as of this encounter
--- OUTSIDE RECORDS SUMMARY | 2024-09-14 11:46 | XMS_ITS | Encounter Summary ---
Author Organization [facility] Address [address] [place] [address] Care Team Providers Care Offal Separator Name Role Phone Inderjit Narayan DO Primary Care Provider + Encounter Details Date Type Department Care Team (Late st Contact Info) Description 03/07/2002 Outpatient Historical [facility] Medicine - [facility] [address] [facility] [address] [place] [address] Dimitry Powell MD [address] [facility] [address] [place] [address] Social History Tobacco Use Types Packs/Day Years Used Date Smoking Tobacco: Never Assessed Sex and Gender Information Value Date Recorded Sex Assigned at Not on file Legal Sex Male 4:12 AM BENCH EXAMINER Gender Identity Not on file Sexual Orientation Not on file documented as of this encounter Plan of Treatment Not on file documented as of this encounter Visit Diagnoses Not on filedocumented in this encounter Care Teams Offal Separator Relationship Specialty Start Date End Date Inderjit Narayan DO [address] [place] [phone] PCP - General Family Practice 04/09/23 08/29/23 documented as of this encounter
--- OUTSIDE RECORDS SUMMARY | 2024-09-14 11:46 | XMS_ITS | Encounter Summary ---
Author Organization [facility] Address [address] [place] [address] Care Team Providers Care Tank Truck Loader Name Role Phone Inderjit Narayan DO Primary Care Provider + Encounter Details Date Type Department Care Team (Late st Contact Info) Description 06/27/2002 Outpatient Historical [facility] Medicine - [facility] [address] [facility] [address] [place] [address] Tayler Viera MD [address] [place] [address] Social History Tobacco Use Types Packs/Day Years Used Date Smoking Tobacco: Never Assessed Sex and Gender Information Value Date Recorded Sex Assigned at Not on file Legal Sex Male 4:12 AM BRINE SUPERVISOR Gender Identity Not on file Sexual Orientation Not on file documented as of this encounter Plan of Treatment Not on file documented as of this encounter Visit Diagnoses Not on filedocumented in this encounter Care Teams Tank Truck Loader Relationship Specialty Start Date End Date Inderjit Narayan DO [address] [place] [phone] PCP - General Family Practice 04/09/23 08/29/23 documented as of this encounter
--- OUTSIDE RECORDS SUMMARY | 2024-09-14 11:46 | XMS_ITS | Encounter Summary ---
Author Organization [facility] Address [address] [place] [address] Care Team Providers Care Parimutuel Ticket Checker Name Role Phone Inderjit Narayan DO Primary Care Provider + Encounter Details Date Type Department Care Team (Late st Contact Info) Description 06/10/2001 Outpatient Historical [facility] Medicine - [facility] [address] [facility] [address] [place] [address] Tayler Viera MD [address] [place] [address] Social History Tobacco Use Types Packs/Day Years Used Date Smoking Tobacco: Never Assessed Sex and Gender Information Value Date Recorded Sex Assigned at Not on file Legal Sex Male 4:12 AM MANAGER ESTATE Gender Identity Not on file Sexual Orientation Not on file documented as of this encounter Plan of Treatment Not on file documented as of this encounter Visit Diagnoses Not on filedocumented in this encounter Care Teams Parimutuel Ticket Checker Relationship Specialty Start Date End Date Inderjit Narayan DO [address] [place] [phone] PCP - General Family Practice 04/09/23 08/29/23 documented as of this encounter
--- OUTSIDE RECORDS SUMMARY | 2024-09-14 11:46 | XMS_ITS | Encounter Summary ---
Author Organization [facility] Address [address] [place] [address] Care Team Providers Care Radio Commentator Name Role Phone Inderjit Narayan DO Primary Care Provider + Encounter Details Date Type Department Care Team (Late st Contact Info) Description 04/08/2004 Outpatient Historical [facility] Medicine - [facility] [address] [facility] [address] [place] [address] Tayler Viera MD [address] [place] [address] Social History Tobacco Use Types Packs/Day Years Used Date Smoking Tobacco: Never Assessed Sex and Gender Information Value Date Recorded Sex Assigned at Not on file Legal Sex Male 4:12 AM SERVICE ADVOCATE CONTACT Gender Identity Not on file Sexual Orientation Not on file documented as of this encounter Plan of Treatment Not on file documented as of this encounter Visit Diagnoses Not on filedocumented in this encounter Care Teams Radio Commentator Relationship Specialty Start Date End Date Inderjit Narayan DO [address] [place] [phone] PCP - General Family Practice 04/09/23 08/29/23 documented as of this encounter
--- OUTSIDE RECORDS SUMMARY | 2024-09-14 11:46 | XMS_ITS | Encounter Summary ---
Author Organization [facility] Address [address] [place] [address] Care Team Providers Care Paper Finisher Name Role Phone Inderjit Narayan Primary Care Provider + Encounter Details Date Type Department Care Team (Late st Contact Info) Description 11/06/2008 Outpatient Historical [facility] Kelle Gant MD [address] [place] [address] Blood in Stool Social History Tobacco Use Types Packs/Day Years Used Date Smoking Tobacco: Never Alcohol Use Standard Drinks/Week Comments No 0 (1 standard drink = 0.6 oz pur e alcohol) Sex and Gender Information Value Date Recorded Sex Assigned at Not on file Legal Sex Male 4:12 AM CENTRAL OFFICE INSPECTOR Gender Identity Not on file Sexual [...] AM CDT Narrative 11/07/2008 8:52 AM CDT [facility] [address] [place] [place], [place] [address] Admit Date: 11/06/2008 BRENDON ALDANA Sex: M Admit Prov: KELLE GANT Date: 1950 Primary Care Prov: TABATHA DRAPER CMRN: [id number] [id number] Ordering Prov: N/A Accession Number: [id number] Interpretation CT HEAD WITHOUT CONTRAST, 11/06/2008 Indication: History of blood clot removal at the age of 4 years with retained metal staple in the head. Evaluation prior to MRI exam. Technique: [address] images were acquired using standard protocol. Findings: Deformity of the calvarium with depression of the right parietal bone is sequela of previous injury or surgical changes. Additional area of thinning and deformity of the left parietal bone is also noted. A metallic surgical clip is present along the inner table of the calvarium just posterior to the left coronal suture near the left middle frontal gyrus. The brain parenchymal attenuation and wooten-white matter differentiation appear to be within normal limits without evidence of acute intracranial hemorrhage, mass effect, or infarct. Paranasal sinuses are aerated. Extra- axial fluid collection is not seen. Ventricular system is normal in size and configuration. Impression: 1. 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 2. Retained metallic surgical clip along the inner table near the left coronal suture. . Dictated by: DARREN ESPARZA 11/06/2008 10:19 Electronically signed by: DARREN ESPARZA 11/07/2008 08:50 Transcribed: 11/06/2008 10:28 [facility] Procedure Note Darren Esparza - 11/07/[address] [address] Admit Date: 11/06/2008 BRENDON ALDANA Sex: M Admit Prov: KELLE GANT Date: 1950 Primary Care Prov: TABATHA DRAPER CMRN: [id number] Room: [facility] SSN: [id number] IMAGING SERVICES Ordering Prov: N/A Interpretation CT [...] near theleft coronal suture. . Dictated by: DARREN ESPARZA 11/06/2008 10:19 Electronically signed by: DARREN ESPARZA 11/07/2008 08:50 Transcribed: 11/06/2008 10:28 M Kelle Gant MD CT ORDERABLES Final Result documented in this encounter Visit Diagnoses Diagnosis Blood in stool documented in this encounter Care Teams Paper Finisher Relationship Specialty Start Date End Date Inderjit Narayan DO [address] [place] [phone] PCP - General Family Practice 04/09/23 08/29/23 documented as of this encounter
--- OUTSIDE RECORDS SUMMARY | 2024-09-14 11:46 | XMS_ITS | Encounter Summary ---
Author Organization [facility] Address [address] [place] [address] Care Team Providers Care Architectural Design Professor Name Role Phone Inderjit Narayan DO Primary Care Provider + Encounter Details Date Type Department Care Team (Late st Contact Info) Description 07/16/[address] [facility] Medicine - [facility] [address] [facility] [address] [place] [address] Tayler Viera MD [address] [place] [address] Social History Tobacco Use Types Packs/Day Years Used Date Smoking Tobacco: Never Assessed Sex and Gender Information Value Date Recorded Sex Assigned at Not on file Legal Sex Male 4:12 AM CABLE TELEVISION INSTALLER Gender Identity Not on file Sexual Orientation Not on file documented as of this encounter Plan of Treatment Not on file documented as of this encounter Visit Diagnoses Not on filedocumented in this encounter Care Teams Architectural Design Professor Relationship Specialty Start Date End Date Inderjit Narayan DO [address] [place] [phone] PCP - General Family Practice 04/09/23 08/29/23 documented as of this encounter
--- OUTSIDE RECORDS SUMMARY | 2024-09-14 11:46 | XMS_ITS | Clinical Summary ---
Author Organization [facility] Address [address] [place] [address] Care Team Providers Care Top Lift Scourer Name Role Phone Landry Fernandez DO Primary Care Provider Source Comments [facility] ([facility]non-owned Affiliates and Associated Physician Practices is amultiple site organization consisting of ambulatory clinics and hospital sitesin [place] and [place]. This disclosure is being madepursuant to the Care Everywhere program and may not contain all information available regarding this patient. Last updated 18.[facility] Allergies Active Allergy Reactions Criticality Noted Date Comments Methylprednisolone Rash Medium 07/12/2012 redness Sulfamethoxazole W-Trimethoprim Rash Medium 01/2010 Medications * Be aware that medications may not be up to date on this document. Alwaysverify current medications with the patient. Medication Sig Dispensed Refills Start Date End Date Status fluticasone propionate (FLONASE) 50 MCG/ACT nasal spray [place] 2 Sprays into each nostril once daily [...] Comments Blood Pressure 110/70 06/20/2019 10:06 AM MECHANICAL SERVICE TECHNICIAN Pulse 80 06/20/2019 10:06 AM MECHANICAL SERVICE TECHNICIAN Temperature 36.8 C (98.3 F) 06/20/2019 10:06 AM MECHANICAL SERVICE TECHNICIAN Respiratory Rate 17 06/20/2019 10:06 AM MECHANICAL SERVICE TECHNICIAN Oxygen Saturation 96% 06/20/2019 10:06 AM MECHANICAL SERVICE TECHNICIAN Inhaled Oxygen Concentration - - Weight 92.5 kg (204 lb) 06/20/2019 10:06 AM MECHANICAL SERVICE TECHNICIAN Height 180.3 cm (5' 11 ) 06/20/2019 10:06 AM MECHANICAL SERVICE TECHNICIAN Body Mass Index 28.45 06/20/2019 10:06 AM MECHANICAL SERVICE TECHNICIAN Plan of Treatment Health Maintenance Due Date Last Done Comments COLOGUARD (AGES 45-75) - COL ON CA SCREENING 1950 COLON MONITORING 1950 COLONOSCOPY - COLON CA SCREENING 1952 CT COLONOGRAPHY - COLON CA SCREENING 1950 FLEX SIG - COLON CA SCREENING 1950 MEDICARE AWV 12 MONTHS 1950 HEPATITIS C SCREENING 03/22/1970 DTAP/TDAP/TD VACCINES (1 - Tdap) 1971 PNEUMOCOCCAL VACCINE 50+ (1 of 1 - PCV) 2002 ZOSTER VACCINE (1 of 2) 2002 SCREENING FOR DIABETES 11/11/2018 Colorectal Cancer Screening 04/26/2020 FIT - COLON CA SCREENING 04/26/2020 04/26/2019 COVID-19 VACCINE (1 - 2023-2 5 season) 2024 INFLUENZA VACCINE (#1) 2024 8, 05/21/2017, 07/16/2015 DEPRESSION SCREENING 08/09/2024 Respiratory Syncytial Virus (RSV) Vaccine Pt: or [...] patient's age to complete this topic MENINGOCOCCAL (Group B) VACCINE Aged Out No longer eligible b ased on patient's age to complete this topic MENINGOCOCCAL VACCINE Aged Out No nicole bruce eligible based on patient's age to complete this topic Care Teams Top Lift Scourer Relationship Specialty Start Date End Date Landry Fernandez DO PCP - General Family Medicine 04/19/16
--- OUTSIDE RECORDS SUMMARY | 2024-09-14 11:46 | XMS_ITS | Encounter Summary ---
Author Organization [facility] Address [address] [place] [address] Care Team Providers Care Complaint Investigations Officer Name Role Phone Inderjit Narayan DO Primary Care Provider + Encounter Details Date Type Department Care Team (Late st Contact Info) Description 05/11/2003 Outpatient Historical [facility] Medicine - [facility] [address] [facility] [address] [place] [address] Tayler Viera MD [address] [place] [address] Social History Tobacco Use Types Packs/Day Years Used Date Smoking Tobacco: Never Assessed Sex and Gender Information Value Date Recorded Sex Assigned at Not on file Legal Sex Male 4:12 AM CNC SUPERVISOR Gender Identity Not on file Sexual Orientation Not on file documented as of this encounter Plan of Treatment Not on file documented as of this encounter Visit Diagnoses Not on filedocumented in this encounter Care Teams Complaint Investigations Officer Relationship Specialty Start Date End Date Inderjit Narayan DO [address] [place] [phone] PCP - General Family Practice 04/09/23 08/29/23 documented as of this encounter
--- OUTSIDE RECORDS SUMMARY | 2024-09-14 11:46 | XMS_ITS | Encounter Summary ---
Author Organization [facility] Address [address] [place] [address] Care Team Providers Care Alkylation Operator Name Role Phone Inderjit Narayan DO Primary Care Provider + Encounter Details Date Type Department Care Team (Late st Contact Info) Description 10/29/2003 Outpatient Historical [facility] Medicine - [facility] [address] [facility] [address] [place] [address] Tayler Viera MD [address] [place] [address] Social History Tobacco Use Types Packs/Day Years Used Date Smoking Tobacco: Never Assessed Sex and Gender Information Value Date Recorded Sex Assigned at Not on file Legal Sex Male 4:12 AM GATE MORTISER OPERATOR Gender Identity Not on file Sexual Orientation Not on file documented as of this encounter Plan of Treatment Not on file documented as of this encounter Visit Diagnoses Not on filedocumented in this encounter Care Teams Alkylation Operator Relationship Specialty Start Date End Date Inderjit Narayan DO [address] [place] [phone] PCP - General Family Practice 04/09/23 08/29/23 documented as of this encounter
--- OUTSIDE RECORDS SUMMARY | 2024-09-14 11:46 | XMS_ITS | Encounter Summary ---
Author Organization [facility] Address [address] [place] [address] Care Team Providers Care Housing Inspector Name Role Phone Inderjit Narayan DO Primary Care Provider + Encounter Details Date Type Department Care Team (Late st Contact Info) Description 07/21/1999 Outpatient Historical [facility] Medicine - [facility] [address] [facility] [address] [place] [address] Tayler Viera MD [address] [place] [address] Social History Tobacco Use Types Packs/Day Years Used Date Smoking Tobacco: Never Assessed Sex and Gender Information Value Date Recorded Sex Assigned at Not on file Legal Sex Male 4:12 AM INSEAM TRIMMING MACHINE OPERATOR Gender Identity Not on file Sexual Orientation Not on file documented as of this encounter Plan of Treatment Not on file documented as of this encounter Visit Diagnoses Not on filedocumented in this encounter Care Teams Housing Inspector Relationship Specialty Start Date End Date Inderjit Narayan DO [address] [place] [phone] PCP - General Family Practice 04/09/23 08/29/23 documented as of this encounter
--- OUTSIDE RECORDS SUMMARY | 2024-09-14 11:46 | XMS_ITS | Encounter Summary ---
Author Organization [facility] Address [address] [place] [address] Care Team Providers Care Administrative Manager Name Role Phone Inderjit Narayan DO Primary Care Provider + Encounter Details Date Type Department Care Team (Late st Contact Info) Description 07/23/1999 Outpatient Historical [facility] Medicine - [facility] [address] [facility] [address] [place] [address] Tayler Viera MD [address] [place] [address] Social History Tobacco Use Types Packs/Day Years Used Date Smoking Tobacco: Never Assessed Sex and Gender Information Value Date Recorded Sex Assigned at Not on file Legal Sex Male 4:12 AM FREE LANCE MODEL Gender Identity Not on file Sexual Orientation Not on file documented as of this encounter Plan of Treatment Not on file documented as of this encounter Visit Diagnoses Not on filedocumented in this encounter Care Teams Administrative Manager Relationship Specialty Start Date End Date Inderjit Narayan DO [address] [place] [phone] PCP - General Family Practice 04/09/23 08/29/23 documented as of this encounter
--- OUTSIDE RECORDS SUMMARY | 2024-09-14 11:46 | XMS_ITS | Encounter Summary ---
Author Organization [facility] Address [address] [place] [address] Care Team Providers Care Sea Kayaking Guide Name Role Phone Inderjit Narayan DO Primary Care Provider + Encounter Details Date Type Department Care Team (Late st Contact Info) Description 01/30/2002 Outpatient Historical [facility] Medicine - [facility] [address] [facility] [address] [place] [address] Tayler Viera MD [address] [place] [address] Social History Tobacco Use Types Packs/Day Years Used Date Smoking Tobacco: Never Assessed Sex and Gender Information Value Date Recorded Sex Assigned at Not on file Legal Sex Male 4:12 AM EXCHANGE ENGINEER Gender Identity Not on file Sexual Orientation Not on file documented as of this encounter Plan of Treatment Not on file documented as of this encounter Visit Diagnoses Not on filedocumented in this encounter Care Teams Sea Kayaking Guide Relationship Specialty Start Date End Date Inderjit Narayan DO [address] [place] [phone] PCP - General Family Practice 04/09/23 08/29/23 documented as of this encounter
--- OUTSIDE RECORDS SUMMARY | 2024-09-14 11:46 | XMS_ITS | Encounter Summary ---
Author Organization [facility] Address [address] [place] [address] Care Team Providers Care Vp Of Digital Marketing Name Role Phone Inderjit Narayan DO Primary Care Provider + Encounter Details Date Type Department Care Team (Late st Contact Info) Description 06/09/1999 Outpatient Historical [facility] Medicine - [facility] [address] [facility] [address] [place] [address] Tayler Viera MD [address] [place] [address] Social History Tobacco Use Types Packs/Day Years Used Date Smoking Tobacco: Never Assessed Sex and Gender Information Value Date Recorded Sex Assigned at Not on file Legal Sex Male 4:12 AM ADZING AND BORING MACHINE FEEDER Gender Identity Not on file Sexual Orientation Not on file documented as of this encounter Plan of Treatment Not on file documented as of this encounter Visit Diagnoses Not on filedocumented in this encounter Care Teams Vp Of Digital Marketing Relationship Specialty Start Date End Date Inderjit Narayan DO [address] [place] [phone] PCP - General Family Practice 04/09/23 08/29/23 documented as of this encounter
--- OUTSIDE RECORDS SUMMARY | 2024-09-14 11:46 | XMS_ITS | Encounter Summary ---
Author Organization [facility] Address [address] [place] [address] Care Team Providers Care Business Services Officer Name Role Phone Inderjit Narayan DO Primary Care Provider + Encounter Details Date Type Department Care Team (Late st Contact Info) Description 01/31/2002 Outpatient Historical [facility] Medicine - [facility] [address] [facility] [address] [place] [address] Tayler Viera MD [address] [place] [address] Social History Tobacco Use Types Packs/Day Years Used Date Smoking Tobacco: Never Assessed Sex and Gender Information Value Date Recorded Sex Assigned at Not on file Legal Sex Male 4:12 AM HEALTH PRACTICE MANAGER Gender Identity Not on file Sexual Orientation Not on file documented as of this encounter Plan of Treatment Not on file documented as of this encounter Visit Diagnoses Not on filedocumented in this encounter Care Teams Business Services Officer Relationship Specialty Start Date End Date Inderjit Narayan DO [address] [place] [phone] PCP - General Family Practice 04/09/23 08/29/23 documented as of this encounter
--- OUTSIDE RECORDS SUMMARY | 2024-09-14 11:46 | XMS_ITS | Encounter Summary ---
Author Organization [facility] Address [address] [place] [address] Care Team Providers Care Motor And Controls Tester Name Role Phone Inderjit Narayan DO Primary Care Provider + Encounter Details Date Type Department Care Team (Late st Contact Info) Description 04/05/2002 Outpatient Historical [facility] Medicine - [facility] [address] [facility] [address] [place] [address] Tayler Viera MD [address] [place] [address] Social History Tobacco Use Types Packs/Day Years Used Date Smoking Tobacco: Never Assessed Sex and Gender Information Value Date Recorded Sex Assigned at Not on file Legal Sex Male 4:12 AM BATTERY TESTER AND REPAIRER Gender Identity Not on file Sexual Orientation Not on file documented as of this encounter Plan of Treatment Not on file documented as of this encounter Visit Diagnoses Not on filedocumented in this encounter Care Teams Motor And Controls Tester Relationship Specialty Start Date End Date Inderjit Narayan DO [address] [place] [phone] PCP - General Family Practice 04/09/23 08/29/23 documented as of this encounter
--- OUTSIDE RECORDS SUMMARY | 2024-09-14 11:46 | XMS_ITS | Encounter Summary ---
Author Organization [facility] Address [address] [place] [address] Care Team Providers Care Rails Developer Name Role Phone RomelbentleyrickyjosselineInderjit Nayeli CHRISTIANSEN Primary Care Provider + Encounter Details Date Type Department Care Team (Late st Contact Info) Description 09/28/2008 Outpatient Historical [facility] Cristela Gant MD [address] [place] [address] Blood in Stool Social History Tobacco Use Types Packs/Day Years Used Date Smoking Tobacco: Never Alcohol Use Standard Drinks/Week Comments No 0 (1 standard drink = 0.6 oz pur e alcohol) Sex and Gender Information Value Date Recorded Sex Assigned at Not on file Legal Sex Male 4:12 AM TOUR CONSULTANT Gender Identity Not on file Sexual Orientation Not on file documented as of this encounter Plan of Treatment Not on file documented as of this encounter Procedures Procedure Name Priority Date/Time Associated Diagnosis Comments PATHOLOGY Routine 09/28/2008 1:15 PM TOUR CONSULTANT C. DIFFICILE DETECTION Routine 09/28/2008 12:57 PM TOUR CONSULTANT FECAL LEUKOCYTES STAIN Routine 09/28/2008 12:57 PM TOUR CONSULTANT OVA AND PARASITE SCREEN Routine 09/28/2008 12:57 PM TOUR CONSULTANT STOOL CULTURE W/SHIGA TOXIN Routine 09/28/2008 12:57 PM TOUR CONSULTANT documented in this encounter Results * PATHOLOGY (09/28/2008 1:15 PM TOUR CONSULTANT) FINAL REPORT [facility] [address] [facility] [place], [place] [address] Patient: SONG ALDANA : 1950 Procedure Date: 09/28/2008 Accession Date: 09/28/2008 Case No: [id number] Ordering Dr: CRISTELA GANT Case types AW, BW, FW, NW and SH are performed by [facility], [place], [place] SURGICAL PATHOLOGY & NON-GYNECOLOGIC CYTOPATHOLOGY REPORT DIAGNOSIS LARGE INTESTINE, LEFT COLON, BIOPSY: - ACUTE ISCHEMIC-TYPE INJURY PATTERN, MILD AND FOCAL (SEE DESCRIPTION). - MILD ACUTE INFLAMMATION, FOCAL. LARGE INTESTINE, DESCENDING COLON, BIOPSY: - TUBULAR ADENOMA. Specimen Description: (1) Left colon biopsy; (2) descending colon polyp. Operative Procedure: Colonoscopy. Patient Information/Histo ry/Diagnosis: (1) Acute inflammation. Please help characterize. Endoscopic appearance is non-specific. Infectious vs. other. (2) Colon polyp(s). Adenomatous vs. hyperplastic vs. other. Gross: Two containers are received labeled Song Aldana. The first specimen is received in a container labeled left colon biopsy. It consists of three pieces of pate tissue ranging from 0.2 to 0.3 cm in greatest dimension. The specimen is submitted entirely labeled A1. The second specimen is received in a container labeled descending colon polyp. It consists of a single piece of pate tissue measuring 0.4 x 0.4 x 0.4 cm. The specimen is submitted entirely labeled B1. ASAF/GERARD 09.28.2008 06:03 pm Microscopic: The slides are labeled [id number] and Song Jovan. The left colon biopsy consists of colonic mucosa showing a few small foci of lamina propria eosinophilia, one associated with a few withered crypts. A few apoptotic bodies are present in crypt epithelium. There is very focal mild acute inflammation with a few neutrophils in the lamina propria, surface epithelium and a single crypt. The findings are minimal and focal, but suggest an acute ischemic-type injury pattern. This may reflect true ischemia but may also be seen in association with a wide variety of drugs and certain infectious agents. The descending colon biopsy consists of a tubular adenoma. YESENIA/VIV 10.01.2008 11:53 am Staging Form: No. ELECTRONIC SIGNATURE FOR ENE BLACK M.D.- 10/01/08 05:12 pm INTERFACE SYSTEM 09/28/2008 1:15 PM TOUR CONSULTANT us Cristela Gant MD PATHOLOGY/CYTOLOGY ORDERABLES F inal Result Performing Organization Address [facility] Phone Number INTERFACE SYSTEM Refer to clinic/hospital department * OVA AND PARASITE SCREEN (09/28/2008 12:57 PM TOUR CONSULTANT) FINAL REPORT Concentratio n: No ova or parasites seen. Trichrome: No ova or parasites seen. [facility] Stool specimen (specimen) 09/28/2008 12:57 PM TOUR CONSULTANT 09/28/2008 1:49 PM TOUR CONSULTANT Narrative INTERFACE SYSTEM - 10/01/2008 11:56 AM TOUR CONSULTANT Performed by [facility] [address] Performed by [facility] [address] us Cristela Gant MD MICROBIOLOGY - GENERAL ORDERABL ES Final Result Performing Organization Address [facility] Phone Number INTERFACE SYSTEM Refer to clinic/hospital department [facility] CLIA# [id number] [address] [place] [address] * FECAL LEUKOCYTES STAIN (09/28/2008 12:57 PM TOUR CONSULTANT) FINAL REPORT Rare WBC's seen [facility] Stool specimen (specimen) 09/28/2008 12:57 PM TOUR CONSULTANT 09/28/2008 1:49 PM TOUR CONSULTANT us Cristela Gant MD MICROBIOLOGY - GENERAL ORDERABL ES Final Result Performing Organization Address [facility] Phone Number INTERFACE SYSTEM Refer to clinic/hospital department [facility] CLIA# [id number] [address] [place] [address] * STOOL CULTURE (09/28/2008 12:57 PM TOUR CONSULTANT) FINAL REPORT No Salmonella isolated. No Shigella isolated. No Escherichia coli serogroup O157:H7 isolated. No Camplylobacter isolated. [facility] Stool specimen (specimen) 09/28/2008 12:57 PM TOUR CONSULTANT 09/28/2008 1:49 PM TOUR CONSULTANT Cristela Gant MD MICROBIOLOGY - GENERAL ORDERABL ES Final Result INTERFACE SYSTEM Refer to clinic/hospital department [facility] CLIA# [id number] [address] [place] [address] * CLOSTRIDIUM DIFFICILE TOXIN (09/28/2008 12:57 PM TOUR CONSULTANT) FINAL REPORT NO Clostridium difficile Toxin A or B detected by EIA. A negative result does not rule out C. difficile associated diarrhea or colitis. [facility] Stool specimen (specimen) 09/28/2008 12:57 PM TOUR CONSULTANT 09/28/2008 1:49 PM TOUR CONSULTANT Cristela Gant MD MICROBIOLOGY - GENERAL ORDERABL ES Final Result Performing Organization Address City/[facility]/ZIP Co de Phone Number INTERFACE SYSTEM Refer to clinic/hospital department [facility] CLIA# [id number] [address] [place] [address] documented in this encounter Visit Diagnoses Diagnosis Blood in stool documented in this encounter Care Teams Rails Developer Relationship Specialty Start Date End Date Inderjit Narayan DO [address] [place] [phone] PCP - General Family Practice 04/09/23 08/29/23 documented as of this encounter
--- OUTSIDE RECORDS SUMMARY | 2024-09-14 11:46 | XMS_ITS | Encounter Summary ---
Author Organization [facility] Address [address] [place] [address] Care Team Providers Care Manager Car Name Role Phone Inderjit Narayan DO Primary Care Provider + Encounter Details Date Type Department Care Team (Late st Contact Info) Description 11/20/2008 Outpatient Historical [facility] Cristela Gant MD [address] [place] [address] Blood in Stool Social History Tobacco Use Types Packs/Day Years Used Date Smoking Tobacco: Never Alcohol Use Standard Drinks/Week Comments No 0 (1 standard drink = 0.6 oz pur e alcohol) Sex and Gender Information Value Date Recorded Sex Assigned at Not on file Legal Sex Male 4:12 AM SAP BUSINESS OBJECTS CONSULTANT Gender Identity Not on file Sexual Orientation Not on file documented as of this encounter Plan of Treatment Not on file documented as of this encounter Visit Diagnoses Diagnosis Blood in stool documented in this encounter Care Teams Manager Car Relationship Specialty Start Date End Date Inderjit Narayan DO [facility] [place] [phone] PCP - General Family Practice 04/09/23 08/29/23 documented as of this encounter
--- OUTSIDE RECORDS SUMMARY | 2024-09-14 11:46 | XMS_ITS | Encounter Summary ---
Author Organization [facility] Address [address] [place] [address] Care Team Providers Care Wash Oil Pump Operator Helper Name Role Phone Inderjit Narayan DO Primary Care Provider + Encounter Details Date Type Department Care Team (Late st Contact Info) Description 09/17/2000 Outpatient Historical [facility] Medicine - [facility] [address] [facility] [address] [place] [address] Tayler Viera MD [address] [place] [address] Social History Tobacco Use Types Packs/Day Years Used Date Smoking Tobacco: Never Assessed Sex and Gender Information Value Date Recorded Sex Assigned at Not on file Legal Sex Male 4:12 AM LATEX DIPPER Gender Identity Not on file Sexual Orientation Not on file documented as of this encounter Plan of Treatment Not on file documented as of this encounter Visit Diagnoses Not on filedocumented in this encounter Care Teams Wash Oil Pump Operator Helper Relationship Specialty Start Date End Date Inderjit Narayan DO [address] [place] [phone] PCP - General Family Practice 04/09/23 08/29/23 documented as of this encounter
--- OUTSIDE RECORDS SUMMARY | 2024-09-14 11:46 | XMS_ITS | Encounter Summary ---
Author Organization [facility] Address [address] [place] [address] Care Team Providers Care Loans Officer Name Role Phone Inderjit Narayan DO Primary Care Provider + Encounter Details Date Type Department Care Team (Late st Contact Info) Description 06/23/1999 Outpatient Historical [facility] Medicine - [facility] [address] [facility] [address] [place] [address] Tayler Viera MD [address] [place] [address] Social History Tobacco Use Types Packs/Day Years Used Date Smoking Tobacco: Never Assessed Sex and Gender Information Value Date Recorded Sex Assigned at Not on file Legal Sex Male 4:12 AM ARCHITECTURAL MODELER Gender Identity Not on file Sexual Orientation Not on file documented as of this encounter Plan of Treatment Not on file documented as of this encounter Visit Diagnoses Not on filedocumented in this encounter Care Teams Loans Officer Relationship Specialty Start Date End Date Inderjit Narayan DO [address] [place] [phone] PCP - General Family Practice 04/09/23 08/29/23 documented as of this encounter
--- OUTSIDE RECORDS SUMMARY | 2024-09-14 11:46 | XMS_ITS | Referral Summary ---
Author Organization [facility] Address [address] [place] [address] Care Team Providers Care Screen Print Operator Name Role Phone Landry Fernandez DO Primary Care Provider [phone] Source Comments [facility],non-owned Affiliates and Associated Physician Practices is amultiple site organization consisting of ambulatory clinics and hospital sitesin [place], [place], [place] and [place]. This disclosure is being madepursuant to the Care Everywhere program and may not contain all information available regarding this patient. Last updated 18.[facility] [place] Allergies Active Allergy Reactions Criticality Noted Date Comments Methylprednisolone Rash Medium 07/12/2012 redness Sulfamethoxazole W-Trimethoprim Rash Medium 01/2010 Medications * Be aware that medications may not be up to date on this document. Alwaysverify current medications with the patient. Medication Sig Dispensed Refills Start Date End Date Status fluticasone propionate (FLONASE) 50 MCG/ACT nasal spray [place] 2 Sprays into each nostril once daily [...] Comments Blood Pressure 110/70 06/20/2019 10:06 AM SURGEON PARTNER Pulse 80 06/20/2019 10:06 AM SURGEON PARTNER Temperature 36.8 C (98.3 F) 06/20/2019 10:06 AM SURGEON PARTNER Respiratory Rate 17 06/20/2019 10:06 AM SURGEON PARTNER Oxygen Saturation 96% 06/20/2019 10:06 AM SURGEON PARTNER Inhaled Oxygen Concentration - - Weight 92.5 kg (204 lb) 06/20/2019 10:06 AM SURGEON PARTNER Height 180.3 cm (5' 11 ) 06/20/2019 10:06 AM SURGEON PARTNER Body Mass Index 28.45 06/20/2019 10:06 AM SURGEON PARTNER Plan of Treatment Not on file Care Teams Screen Print Operator Relationship Specialty Start Date End Date Landry Fernandez DO PCP - General Family Medicine 04/19/16
--- OUTSIDE RECORDS SUMMARY | 2024-09-14 11:46 | XMS_ITS | Patient Health Summary ---
Author Organization [facility] Address [address] [place] [address] Care Team Providers Care Front Counter Attendant Name Role Phone Landry Fernandez DO Primary Care Provider [phone] Note from [facility],non-owned Affiliates and Associated Physician Practices is amultiple site organization consisting of ambulatory clinics and hospital sitesin [place], [place], [place] and [place]. This disclosure is being madepursuant to the Care Everywhere program and may not contain all information available regarding this patient. Last updated 18.[facility] Allergies * Methylprednisolone(Rash) -Medium Criticality * Sulfamethoxazole W-Trimethoprim(Rash) -Medium Criticality Medications * Be aware that medications may not be up to date on this document. Alwaysverify current medications with the patient. * fluticasone propionate (FLONASE) 50 MCG/ACT nasal spray [place] 2 Sprays into each nostril once daily [...] Comments Blood Pressure 110/70 06/20/2019 10:06 AM PODIATRIC FOOT AND ANKLE SPECIALIST Pulse 80 06/20/2019 10:06 AM PODIATRIC FOOT AND ANKLE SPECIALIST Temperature 36.8 C (98.3 F) 06/20/2019 10:06 AM PODIATRIC FOOT AND ANKLE SPECIALIST Respiratory Rate 17 06/20/2019 10:06 AM PODIATRIC FOOT AND ANKLE SPECIALIST Oxygen Saturation 96% 06/20/2019 10:06 AM PODIATRIC FOOT AND ANKLE SPECIALIST Inhaled Oxygen Concentration - - Weight 92.5 kg (204 lb) 06/20/2019 10:06 AM PODIATRIC FOOT AND ANKLE SPECIALIST Height 180.3 cm (5' 11 ) 06/20/2019 10:06 AM PODIATRIC FOOT AND ANKLE SPECIALIST Body Mass Index 28.45 06/20/2019 10:06 AM PODIATRIC FOOT AND ANKLE SPECIALIST Care Teams Front Counter Attendant Relationship Specialty Start Date End Date Landry Fernandez DO PCP - General Family Medicine 04/19/16
--- OUTSIDE RECORDS SUMMARY | 2024-09-14 11:46 | XMS_ITS | Encounter Summary ---
Author Organization [facility] Address [address] [place] [address] Care Team Providers Care Color Grinder Name Role Phone Inderjit Narayan DO Primary Care Provider + Encounter Details Date Type Department Care Team (Late st Contact Info) Description 06/30/1999 Outpatient Historical [facility] Medicine - [facility] [address] [facility] [address] [place] [address] Tayler Viera MD [address] [place] [address] Social History Tobacco Use Types Packs/Day Years Used Date Smoking Tobacco: Never Assessed Sex and Gender Information Value Date Recorded Sex Assigned at Not on file Legal Sex Male 4:12 AM CARE ANALYST Gender Identity Not on file Sexual Orientation Not on file documented as of this encounter Plan of Treatment Not on file documented as of this encounter Visit Diagnoses Not on filedocumented in this encounter Care Teams Color Grinder Relationship Specialty Start Date End Date Inderjit Narayan DO [address] [place] [phone] PCP - General Family Practice 04/09/23 08/29/23 documented as of this encounter
--- OUTSIDE RECORDS SUMMARY | 2024-09-14 11:47 | XMS_ITS | Clinical Summary ---
Author Organization [facility] Address [address] [place] [phone] Care Team Providers Care Route Salesperson Name Role Phone Unavailable Primary Care [...]
--- OUTSIDE RECORDS SUMMARY | 2024-09-14 11:47 | XMS_ITS | Clinical Summary ---
Author Organization [facility] Address [facility] [place] [address] Care Team Providers Care Manager Transition Name Role Phone RomelcristopherInderjit Nayeli CHRISTIANSEN Primary Care Provider + Allergies Active Allergy Reactions Criticality Noted Date Comments Methylprednisolone Rash Medium 07/12/2012 redness Sulfa Antibiotics Rash Medium 11/12/2009 Medications tamsulosin (FLOMAX) 0.4 MG Cap Take 1 capsule (0.4 mg total) by mouth nightly at bedtime. 10/16/19 23 Active Coenzyme Q10 (CO Q 10 OR) Take by mouth. Active Cholecalciferol 50 MCG (2000 UT) Tab Active vitamin C (ASCORBIC ACID) 1000 MG tablet Take 1 tablet (1,000 mg total) by mouth daily. Active Multiple Vitamin (MULTIVITAMIN ADULT OR) Active Turmeric (QC TUMERIC COMPLEX OR) Active magnesium oxide (MAG-OX) 250 MG tablet Take 1 tablet (250 mg total) by mouth daily. Active azelastine (ASTELIN) 0.1 % nasal sprayIndications:Subacut e cough 1 spray by Nasal route every evening. Use in each nostril as directed 30 mL 1 02/14/20 24 Active albuterol sulfate HFA 108 (90 Base) MCG/ACT inhalerIndications:Subac [place] cough INHALE 2 PUFFS INTO THE LUNGS EVERY 6 HOURS NEEDED FOR WHEEZE 18 g 1 03/01/20 24 Active HYDROcodone-acetaminophe n (NORCO) 5-325 MG tabletIndications:Acute Pain < 7 Day Supply Take 1 tablet by mouth every 4 (four) hours as needed for Pain (max 6 tabs a day). Indications : Acute Pain < 7 Day Supply 21 tablet 04/19/20 24 Active cetirizine-pseudoephedri ne ER ([employer] ALLERGY RELIEF D) 5mg-120mg 12 hr tabletIndications:Allerg ic rhinitis, unspecified seasonality, unspecified trigger Take 1 tablet by mouth 2 (two) times daily. 72 tablet 2 05/03/20 24 Active losartan (COZAAR) 50 MG tabletIndications:Essent ial hypertension, benign Take 1 tablet (50 mg total) by mouth daily. 90 tablet 1 05/31/20 24 Active fluticasone propionate (FLONASE) 50 MCG/ACT nasal sprayIndications:Allergi c rhinitis due to pollen, unspecified seasonality 1 spray by Nasal route daily. 16 g 6 06/09/20 24 Active omeprazole (PRILOSEC) 40 MG capsuleIndications:Subac [place] cough TAKE 1 CAPSULE (40 MG TOTAL) BY MOUTH DAILY. 90 capsule 2 08/07/20 24 Active simvastatin (ZOCOR) 40 MG tabletIndications:Pure hypercholesterolemia TAKE 1 TABLET BY MOUTH LATE IN THE DAY 90 tablet 1 08/10/19 25 Active Active Problems Problem Noted Date Diagnosed [...] Encounters Date Type Department Care Team Description 09/14/2024 Telephone [facility] Family & Internal Medicine [address] [address] Inderjit Narayan DO Advice 09/08/2024 2:02 PM CAMPAIGN MARKETING MANAGER - 09/08/2024 11:59 PM CAMPAIGN MARKETING MANAGER Hospital Encounter [facility] [address] [place] [address] Guido Carrillo DO Discharge Disposition: Home or Self Care (Routine Discharge) 09/08/2024 Travel 09/05/2024 8:00 AM CAMPAIGN MARKETING MANAGER Laboratory Only [facility] Family & Internal Medicine [address] [address] Inderjit Narayan DO 09/05/2024 Travel 08/15/2024 Telephone [facility] Pul[facility] [address] [address] Guido Carrillo DO Reschedule 08/12/2024 Scan [facility] Scanned, [facility] Lab (SCAN) 08/12/2024 Scan [facility] Scanned, [facility] Image (SCAN) 07/10/2024 2:20 PM CAMPAIGN MARKETING MANAGER Office Visit [facility] Family & Internal Medicine [address] [address] Inderjit Narayan DO Hand Pain (Right hand and thumb pain for several months. Worse in the morning. ); Hypertension (Presents for routine 3 month follow up. ) 07/10/2024 Travel from Last 3 Months Immunizations Name Administration [...] 11/17/2018,08/09/2007 Family History Medical History Relation Comments CT Father Leukemia Grandson Cancer Maternal Grandfather Heart [...] Sex Assigned at Male 09/08/2024 2:02 PM CAMPAIGN MARKETING MANAGER Legal Sex Male 10:29 AM CAMPAIGN MARKETING MANAGER Gender Identity Not on file Sexual Orientation Not on file Occupation Industry Job Start Date Job End Date Not on file Not on file Not on file Not on file Last Filed Vital Signs Vital Sign Reading Time Taken Comments Blood Pressure 132/70 07/10/2024 2:19 PM CAMPAIGN MARKETING MANAGER Pulse 72 07/10/2024 2:19 PM CAMPAIGN MARKETING MANAGER Temperature 36.2 C (97.2 F) 07/10/2024 2:19 PM CAMPAIGN MARKETING MANAGER Respiratory Rate 16 07/10/2024 2:19 PM CAMPAIGN MARKETING MANAGER Oxygen Saturation 95% 07/10/2024 2:19 PM CAMPAIGN MARKETING MANAGER Inhaled Oxygen Concentration - - Weight 96.7 kg (213 lb 3.2 oz) 07/10/2024 2:19 P M CAMPAIGN MARKETING MANAGER Height 180.3 cm (5' 11 ) 07/10/2024 2:19 PM CAMPAIGN MARKETING MANAGER Body Mass Index 29.74 07/10/2024 2:19 PM CAMPAIGN MARKETING MANAGER Plan of Treatment Upcoming Encounters Date Type Department Care Team (Latest Contact Info) Description 09/15/2024 10:00 AM CAMPAIGN MARKETING MANAGER Office Visit [facility] Family & Internal Medicine [address] [address] Inderjit Narayan DO [address] [place] [address] 10/05/2024 3:00 PM CAMPAIGN MARKETING MANAGER Hospital Encounter [facility] Respiratory Therapy [facility] [place] [address] Guido Carrillo DO [address] [place] [address] 10/13/2024 10:30 AM CAMPAIGN MARKETING MANAGER Office Visit [facility] Multispecialty Care - [facility] [address] [place] [address] Guido Carrillo DO [address] [place] [address] 01/08/2025 2:20 PM CDT Office Visit [facility] Family & Internal Medicine - [place] [address] [place] [address] Inderjit Narayan DO [address] [place] [address] Health Maintenance Due Date Last Done Comments RSV Immunization or 60+ Years (1 - Risk 60-74 years 1-dose series) 2012 Annual Medicare Wellness Visit 2017 PHQ-2 (Physician [place]) 08/09/2024 11/17/2023 Influenza Adult (#1) 2025 06/11/2023, 06/01/2022, 07/12/2021, [...] 11/17/2018, 10/14/2017 Hepatitis C Completed 07/19/2023 Meningococcal B Vaccine Aged Out No l onger eligible based on patient's age to complete this topic Meningococcal Vaccine Aged Out No nicole bruce eligible based on patient's age to complete this topic RSV Immunizations Under 20 Months Aged Out No longer eligible based on patient's age to complete this topic Procedures Procedure Name Priority Date/Time Associated Diagnosis Comments CT CHEST WO CON Routine 09/08/2024 2:21 PM CAMPAIGN MARKETING MANAGER Abnormal CT scan of lung Multiple nodules of lung COLLECTION VENOUS BLOOD VENIPUNCTURE Routine 09/05/2024 8:18 AM CAMPAIGN MARKETING MANAGER Essential hypertension, benign Pure hypercholesterolem ia Vitamin D deficiency Prediabetes Annual physical exam Screening for prostate cancer CBC W/DIFF AUTOMATED Routine 09/05/2024 8:18 AM CAMPAIGN MARKETING MANAGER Essential hypertension, benign Pure hypercholesterolem ia Vitamin D deficiency Prediabetes Annual physical exam Screening for prostate cancer COMPREHENSIVE METABOLIC PANEL Routine 09/05/2024 8:18 AM CAMPAIGN MARKETING MANAGER Essential hypertension, benign Pure hypercholesterolem ia Vitamin D deficiency Prediabetes Annual physical exam Screening for prostate cancer TSH W/REFLEX Routine 09/05/2024 8:18 AM CAMPAIGN MARKETING MANAGER Essential hypertension, benign Pure hypercholesterolem ia Vitamin D deficiency Prediabetes Annual physical exam Screening for prostate cancer LIPID PANEL Routine 09/05/2024 8:18 AM CAMPAIGN MARKETING MANAGER Essential hypertension, benign Pure hypercholesterolem ia Vitamin D deficiency Prediabetes Annual physical exam Screening for prostate cancer VITAMIN D, 25 OH Routine 09/05/2024 8:18 AM CAMPAIGN MARKETING MANAGER Essential hypertension, benign Pure hypercholesterolem ia Vitamin D deficiency Prediabetes Annual physical exam Screening for prostate cancer PROSTATE SPECIFIC ANTIGEN,SCREENING Routine 09/05/2024 8:18 AM CAMPAIGN MARKETING MANAGER Essential hypertension, benign Pure hypercholesterolem ia Vitamin D deficiency Prediabetes Annual physical exam Screening for prostate cancer HEMOGLOBIN, GLYCOSYLATED Routine 09/05/2024 8:18 AM CAMPAIGN MARKETING MANAGER Essential hypertension, benign Pure hypercholesterolem ia Vitamin D deficiency Prediabetes Annual physical exam Screening for prostate cancer URIC ACID BLOOD Routine 09/05/2024 8:18 AM CAMPAIGN MARKETING MANAGER Essential hypertension, benign Pure hypercholesterolem ia Vitamin D deficiency Prediabetes Annual physical exam Screening for prostate cancer OUTSIDE LAB COVID-19 (SCAN ORDER) Routine 08/12/2024 IMAGE GENERIC 08/12/2024 REMOVAL OF SKIN TAGS Routine 07/10/2024 2:56 PM CAMPAIGN MARKETING MANAGER AK (actinic keratosis) Skin tag HEPATITIS C ANTIBODY Routine 07/19/2023 10:20 AM CAMPAIGN MARKETING MANAGER Essential hypertension, benign Pure hypercholesterolem ia Vitamin D deficiency Need for hepatitis C screening test Screening for prostate cancer Screening for endocrine, metabolic and immunity disorder Screening for lipid disorders from Last 3 Months or Most Recently Relevant to Health Maintenance Results * CT CHEST WO CON (09/08/2024 2:21 PM CAMPAIGN MARKETING MANAGER) Anatomical Region Laterality Modality Chest Computed Tomogra phy 09/13/2024 4:29 PM CAMPAIGN MARKETING MANAGER Impressions 09/13/2024 4:34 PM CAMPAIGN MARKETING MANAGER IMPRESSION: 1. 11 mm groundglass nodule in the left lung apex and the patchy groundglass opacities seen on 03/08/2024 have resolved. No specific follow-up necessary. 2. Coronary calcifications. 3. Bilateral nonobstructing renal calculi. Referred By: GUIDO CARRILLO Interpreted By: Jared Mccauley MD, 09/13/2024 4:29 PM Narrative 09/13/2024 4:34 PM CAMPAIGN MARKETING MANAGER [address] [address] EXAMINATION: CT CHEST WITHOUT CONTRAST EXAM DATE/TIME: 09/08/2024 2:10 PM REASON FOR EXAM: Pulmonary nodule follow-up. COMPARISON: 03/08/2024 TECHNIQUE: Computed tomography was performed of the chest without intravenous contrast. Dose lowering technique was used for this study which may include, but is not limited to, dose reduction techniques, automated exposure control, use of iterative reconstruction and ALARA (As low As Reasonably Achievable)/Image Gently techniques. FINDINGS: Subsegmental atelectasis left lung base. 11 mm groundglass nodule in the left lung apex and the patchy groundglass opacities seen on 03/08/2024 have resolved. No suspicious pulmonary lesion, pneumothorax, or pleural effusion. Airways within normal limits. On soft tissue windows, no axillary or supraclavicular lymphadenopathy. On mediastinal windows, no evidence of hilar or mediastinal lymphadenopathy. Heart size normal. No pericardial effusion. Coronary calcifications. Limited evaluation of the upper abdomen demonstrates no acute abnormality. Bilateral nonobstructing renal calculi. On bone windows, no suspicious skeletal lesion or acute compression fracture deformity. Scattered degenerative changes of the spine. Procedure Note Jared Mccauley MD - 09/13/[address] [address] EXAMINATION: CT CHEST WITHOUT CONTRAST EXAM DATE/TIME: 09/08/2024 2:10 PM REASON FOR EXAM: Pulmonary nodule follow-up. COMPARISON: 03/08/2024 TECHNIQUE: Computed tomography was performed of the chest withoutintravenous contrast. Dose lowering technique was used for this study which may include, but isnot limited to, dose reduction techniques, automated exposure control, use of iterativereconstruction and ALARA (As low As Reasonably Achievable)/Image Gently techniques. FINDINGS: Subsegmental atelectasis left lung base. 11 mm groundglass nodule in the left lung apex and the patchy groundglassopacities seen on 03/08/2024 have resolved. No suspicious pulmonary lesion, pneumothorax, or pleural effusion. Airways within normal limits. On soft tissue windows, no axillary or supraclavicular lymphadenopathy. On mediastinal windows, no evidence of hilar or mediastinallymphadenopathy. Heart size normal. No pericardial effusion. Coronarycalcifications. Limited evaluation of the upper abdomen demonstrates no acuteabnormality. Bilateral nonobstructing renal calculi. On bone windows, no suspicious skeletal lesion or acute compressionfracture deformity. Scattered degenerative changes of the spine. IMPRESSION: 1. 11 mm groundglass nodule in the left lung apex and the patchygroundglass opacities seen on 03/08/2024 have resolved. No specificfollow-up necessary. 2. Coronary calcifications. 3. Bilateral nonobstructing renal calculi. Referred By: GUIDO CARRILLO Interpreted By: Jared Mccauley MD, 09/13/2024 4:29 PM Guido Carrillo DO CT Final Resu lt * TSH W/REFLEX (09/05/2024 8:18 AM CAMPAIGN MARKETING MANAGER) TSH 1.894 0.358 - 3.740 uIU/ML 09/05/2024 3:44 PM CAMPAIGN MARKETING MANAGER [facility] 09/05/2024 8:18 AM CAMPAIGN MARKETING MANAGER Inderjit Narayan DO LABORATORY Final Re sult [facility] [address] [place] [address], * HEMOGLOBIN, GLYCOSYLATED (09/05/2024 8:18 AM CAMPAIGN MARKETING MANAGER) HGB A1C 5.3 4.5 - 6.2 % 09/05/2024 4:43 PM CAMPAIGN MARKETING MANAGER [facility] ESTIMATED AVG GLUCOSE 105 74 - 106 MG/DL 09/05/2024 4:43 PM CAMPAIGN MARKETING MANAGER [facility] 09/05/2024 8:18 AM CAMPAIGN MARKETING MANAGER Inderjit Nayeli Narayan LABORATORY Final Re sult Performing Organization Address [facility] Co de Phone Number [facility] [place] [address] [place] [address], [place] [phone] * PROSTATE SPECIFIC ANTIGEN,SCREENING (09/05/2024 8:18 AM CAMPAIGN MARKETING MANAGER) PSA 0.70 <4.00 NG/ML 09/05/2024 3:37 PM CAMPAIGN MARKETING MANAGER [facility] Comment: ASSAY PERFORMED BY [employer] IMMUNOASSAY METHODOLOGY USING [employer] REAGENT. PATIENT RESULTS DETERMINED BY ASSAYS FROM DIFFERENT MANUFACTURERS AND/OR BY DIFFERENT METHODS MAY NOT BE COMPARABLE. 09/05/2024 8:18 AM CAMPAIGN MARKETING MANAGER Inderjit Narayan LABORATORY Final Re sult Performing Organization Address [facility] Co de Phone Number [facility] [place] [id number] [place] [address], [place] [phone] * (ABNORMAL) COMPREHENSIVE METABOLIC PANEL (09/05/2024 8:18 AM CAMPAIGN MARKETING MANAGER) SODIUM S/P/B 142 136 - 145 MMOL/L 09/05/2024 3:44 PM CAMPAIGN MARKETING MANAGER [facility] POTASSIUM S/P/B 4.8 3.5 - 5.1 MMOL/L 09/05/2024 3:44 PM CAMPAIGN MARKETING MANAGER [facility] CHLORIDE S/P/B 105 98 - 107 MMOL/L 09/05/2024 3:44 PM CAMPAIGN MARKETING MANAGER [facility] CO2 28.1 21 - 32 MMOL/L 09/05/2024 3:44 PM CAMPAIGN MARKETING MANAGER [facility] GLUCOSE 105(H) 70 - 99 MG/DL 09/05/2024 3:44 PM CAMPAIGN MARKETING MANAGER [facility] BUN 13 7 - 18 MG/DL 09/05/2024 3:44 PM [facility] CREATININE S/P/B 0.97 0.70 - 1.30 MG/DL 09/05/2024 3:44 PM [facility] CALCIUM S/P/B 9.1 8.4 - 10.5 MG/DL 09/05/2024 3:44 PM [facility] [place] BILIRUBIN TOTAL S/P/B 0.7 0.2 - 1.0 MG/DL 09/05/2024 3:44 PM [facility] [place] ALKALINE PHOSPHATASE S/P/B 89 45 - 115 U/L 09/05/2024 3:44 PM [facility] [place] AST 28 15 - 37 U/L 09/05/2024 3:44 PM [facility] [place] ALT 44 16 - 63 U/L 09/05/2024 3:44 PM [facility] TOTAL PROTEIN S/P/B 7.1 6.4 - 8.2 G/DL 09/05/2024 3:44 PM [facility] ALBUMIN S/P/B 3.7 3.4 - 5.0 G/DL 09/05/2024 3:44 PM [facility] ANION GAP 8.9 5 - 15 MMOL/L 09/05/2024 3:44 PM [facility] Comment:REFERENCE RANGE NOT ESTABLISHED OSMOLALITY (CALC) 294 MOSM/KG 025 3:44 PM [facility] Comment:REFERENCE RANGE NOT ESTABLISHED GFR ESTIMATE 83(L) >90 ML/MIN/1. 73 M2 09/05/2024 3:44 PM [facility] GFR NOTES GFR REFERENCE S: 09/05/2024 3:44 PM [facility] Comment: THE ESTIMATED GFR IS CALCULATED [...] ml/min/1.73 m2 G5,KIDNEY FAILURE: <15 ml/min/1.73 m2 09/05/2024 8:18 AM CAMPAIGN MARKETING MANAGER Inderjit Narayan DO LABORATORY Final Re sult [facility] [address] [place] [address], * LIPID PANEL (09/05/2024 8:18 AM CAMPAIGN MARKETING MANAGER) CHOLESTEROL 140 <200 MG/DL 09/05/2024 3:44 PM [facility] TRIGLYCERIDES 106 <150 MG/DL 09/05/2024 3:44 PM CAMPAIGN MARKETING MANAGER [facility] HDL 49 >40 MG/DL 09/05/2024 3:44 PM [facility] LDL-C 70 <100 MG/DL 09/05/2024 3:44 PM CAMPAIGN MARKETING MANAGER [facility] VLDL CALCULATION 21 5 - 28 MG/DL 09/05/2024 3:44 PM [facility] CHOL/HDL RATIO 2.9 0.0 - 4.0 09/05/2024 3:44 PM CAMPAIGN MARKETING MANAGER [facility] LDL/HDL 1.4 0.41 - 2.13 09/05/2024 3:44 PM CAMPAIGN MARKETING MANAGER [facility] NON HDL CHOLESTEROL 91 <140 MG/DL 09/05/2024 3:44 PM CAMPAIGN MARKETING MANAGER [facility] 09/05/2024 8:18 AM CAMPAIGN MARKETING MANAGER Inderjit Narayan DO LABORATORY Final Re sult [facility] [place] [place] [address] [place] [address], * (ABNORMAL) CBC W/DIFF AUTOMATED (09/05/2024 8:18 AM CAMPAIGN MARKETING MANAGER) WBC 6.81 4.00 - 10.80 x10'3/uL 09/05/2024 3:45 PM CAMPAIGN MARKETING MANAGER [facility] RBC 4.88 4.50 - 6.10 x10'6/uL 09/05/2024 3:45 PM [facility] HGB 15.1 13.0 - 18.0 G/DL 09/05/2024 3:45 PM [facility] HCT 45.3 37.0 - 52.0 % 09/05/2024 3:45 PM [facility] MCV 92.8 78.0 - 100.0 FL 09/05/2024 3:45 PM [facility] MCH 30.9 27.0 - 31.0 PG 09/05/2024 3:45 PM [facility] MCHC 33.3 33.0 - 36.0 G/DL 09/05/2024 3:45 PM [facility] RDW 12.2 11.5 - 14.5 % 09/05/2024 3:45 PM [facility] PLT 225 150 - 350 x10'3/uL 09/05/2024 3:45 PM [facility] MPV 10.3 7.4 - 10.4 FL 09/05/2024 3:45 PM [facility] DIFFERENTIAL TYPE AUTOMATED DIFFERENTIAL 09/05/2024 3:45 PM [facility] NEUTROPHILS % 52.7 % 09/05/2024 3:45 PM [facility] LYMPHOCYTES % 30.0 % 09/05/2024 3:45 PM CAMPAIGN MARKETING MANAGER [facility] MONOCYTES % 10.6 % 09/05/2024 3:45 PM CAMPAIGN MARKETING MANAGER [facility] EOSINOPHILS % 6.0 % 09/05/2024 3:45 PM CAMPAIGN MARKETING MANAGER [facility] BASOPHILS % 0.7 % 09/05/2024 3:45 PM CAMPAIGN MARKETING MANAGER [facility] IMMATURE GRANS % 0.0 % 09/05/2024 3:45 PM CAMPAIGN MARKETING MANAGER [facility] ABS. NEUTROPHILS 3.59 1.60 - 8.30 x10'3/uL 09/05/2024 3:45 PM CAMPAIGN MARKETING MANAGER [facility] ABS. LYMPHOCYTES 2.04 0.80 - 4.70 x10'3/uL 09/05/2024 3:45 PM CAMPAIGN MARKETING MANAGER [facility] ABS. MONOCYTES 0.72 0.00 - 1.50 x10'3/uL 09/05/2024 3:45 PM CAMPAIGN MARKETING MANAGER [facility] ABS. EOSINOPHILS 0.41(H) 0.00 - 0.40 x10'3/uL 09/05/2024 3:45 PM CAMPAIGN MARKETING MANAGER [facility] ABS. BASOPHILS 0.05 0.00 - 0.20 x10'3/uL 09/05/2024 3:45 PM CAMPAIGN MARKETING MANAGER [facility] ABS. IMMATURE GRANULOCYTES 0.00 0.00 - 0.03 x10'3/uL 09/05/2024 3:45 PM CAMPAIGN MARKETING MANAGER [facility] 09/05/2024 8:18 AM CAMPAIGN MARKETING MANAGER us Inderjit Narayan DO LABORATORY Final Re sult [facility] [address] [place] [address], * VITAMIN D, 25 [place] (09/05/2024 8:18 AM CAMPAIGN MARKETING MANAGER) Pathologist [facility] VITAMIN D 25 HYDROXY TOTAL S/P/B 61.4 30 - 100 NG/ML 09/05/2024 3:44 PM CAMPAIGN MARKETING MANAGER [facility] Comment: DEFICIENT <20 INSUFFICIENT 20-30 SUFFICIENT 30-100 09/05/2024 8:18 AM CAMPAIGN MARKETING MANAGER Inderjit Narayan DO LABORATORY Final Re sult Performing Organization Address [facility] Co de Phone Number [facility] [address] [place] [address], [place] [phone] * URIC ACID BLOOD (09/05/2024 8:18 AM CAMPAIGN MARKETING MANAGER) [facility] URIC ACID 5.1 3.5 - 7.2 MG/DL 09/05/2024 3:36 PM CAMPAIGN MARKETING MANAGER [facility] 09/05/2024 8:18 AM CAMPAIGN MARKETING MANAGER Inderjit Narayan DO LABORATORY Final Re sult Performing Organization Address [facility] de Phone Number [address] [address], [place] [phone] * (ABNORMAL) OUTSIDE LAB COVID-19 (08/12/2024) Pathologist [facility] CORONAVIRUS SARS COV 2 PCR (RESP) DETECTED( Crit) NOT DETECTED [facility] 08/12/2024 [facility] Scanned SCANNING Final Resu lt Performing Organization Address City/[facility] Co de Phone Number [facility] * IMAGE GENERIC (08/12/2024) Anatomical Region Laterality Modality Other 08/12/2024 [facility] Scanned SCANNING Final Resu lt * Skin Tag Removal (07/10/2024 2:56 PM CAMPAIGN MARKETING MANAGER) Narrative Inderjit Narayan DO - 07/10/2024 2:56 PM CAMPAIGN MARKETING MANAGER Inderjit Narayan DO 07/10/2024 3:05 PM Skin Tag Removal Date/Time: 07/10/2024 2:56 PM Performed by: Inderjit Narayan DO Authorized by: Inderjit Narayan DO Number of Lesions: 1 Lesion 1: Body area: head/neck Head/neck location: nose Malignancy: benign lesion Destruction method: cryotherapy Comments: Treated both lesions (AK and skin tag) with 1-2 seconds of cryotherapy for 3 cycles. Pt tolerated procedure. Inderjit Narayan DO PROCEDURES-UNRESULTED Fi nal Result * HEPATITIS C ANTIBODY (07/19/2023 10:20 AM CAMPAIGN MARKETING MANAGER) HEPATITIS C AB NON-REACTI VE NON-REACT ELDER 07/19/2023 6:22 PM CAMPAIGN MARKETING MANAGER [facility] Comment: ANTIBODIES TO HCV NOT DETECTED. DOES NOT EXCLUDE THE POSSIBILITY OF EXPOSURE TO HCV. 07/19/2023 10:2 0 AM CAMPAIGN MARKETING MANAGER Inderjit Narayan DO LABORATORY Final Re sult [facility] [address] [place] [address], [id number] from Last 3 Months or Most Recently Relevant to Health Maintenance [place] [address] MEDICARE [facility] Care Teams Manager Transition Relationship Specialty Start Date End Date Inderjit Narayan DO [address] [place] [id number] PCP - General 12/19/22
--- OUTSIDE RECORDS SUMMARY | 2024-09-14 11:47 | XMS_ITS | Encounter Summary ---
Author Organization [facility] Address [address] [place] [address] Care Team Providers Care Hog Room Supervisor Name Role Phone Inderjit Narayan DO Primary Care Provider + Encounter Details Date Type Department Care Team (Late st Contact Info) Description 05/04/2003 Outpatient Historical [facility] Medicine - [facility] [address] 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
--- OUTSIDE RECORDS SUMMARY | 2024-09-14 11:47 | XMS_ITS | Encounter Summary ---
Author Organization [facility] Address [address] [place] [address] Care Team Providers Care Measurement Operator Name Role Phone Inderjit Narayan DO Primary Care Provider + Encounter Details Date Type Department Care Team (Late st Contact Info) Description 11/21/2002 Outpatient Historical [facility] Medicine - [facility] [address] [facility] [address] [place] [address] Tayler Viera MD [address] [place] [address] Social History Tobacco Use Types Packs/Day Years Used Date Smoking Tobacco: Never Assessed Sex and Gender Information Value Date Recorded Sex Assigned at Not on file 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
--- OUTSIDE RECORDS SUMMARY | 2024-09-14 11:47 | XMS_ITS | Encounter Summary ---
Author Organization [facility] Address [address] [place] [address] Care Team Providers Care Aerobics Instructor Name Role Phone Inderjit Narayan DO Primary Care Provider + Encounter Details Date Type Department Care Team (Late st Contact Info) Description 09/22/2002 Outpatient Historical [facility] Medicine - [facility] [address] [facility] [address] [place] [address] Tayler Viera MD [address] [place] [address] Social History Tobacco Use Types Packs/Day Years Used Date Smoking Tobacco: Never Assessed Sex and Gender Information Value Date Recorded Sex Assigned at Not on file 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
--- NOTE | 2024-09-14 12:06 | ECG_ITS ---
Test Date: 2024-09-14 12:10:10 Measurements Intervals [place] Rate: 65 P: 69 [place]: 226 QRS: -47 QRSD: 142 T: 44 QT: 411 QTc: 429 Interpretive Statements SINUS RHYTHM WITH FIRST DEGREE AV BLOCK RIGHT BUNDLE BRANCH BLOCK LEFT ANTERIOR FASCICULAR BLOCK BASELINE ARTIFACT- I, III, AVL, AVF, V1-V6 ABNORMAL ECG No previous ECG available for comparison Electronically Signed On 09-14-2024 12:51:07 HARNESS PULLER by Abraham Murphy D.O.
[2024-09-14 12:24] LABS: Basophils Absolute Auto 0.1 K/mm3 (0.0-0.1); Basophils Percent Auto 0.6 % (0.2-1.2); Eosinophils Absolute Auto 0.1 K/mm3 (0-0.3); Eosinophils Percent Auto 0.5 % (0-4.4); Hematocrit 46.8 % (42.0-52.0); Hemoglobin 15.4 g/dL (14.0-18.0); Immature Granulocyte Percent A 0.7 % (0-0.5); Lymphocytes Absolute Auto 1.72 K/mm3 (0.9-3.2); Lymphocytes Percent Auto 12.6 % (18.3-44.2); Mean Corpuscular HGB Conc 32.9 g/dl (32-36); Mean Corpuscular Hemoglobin 31.1 pg (26-34); Mean Corpuscular Volume 94.5 fl (80-100); Mean Platelet Volume 9.8 fl (7.4-10.4); Monocytes Absolute Auto 1.5 K/mm3 (0.1-0.6); Monocytes Percent Auto 11.1 % (2.6-8.5); Neutrophils Absolute Auto 10.2 K/mm3 (1.3-6.7); Neutrophils Percent Auto 74.5 % (45.5-73.1); Platelet Count Result 266 k/mm3 (150-375); Red Blood Count 4.95 M/mm3 (4.6-6.20); Red Cell Distribution Width 12.7 % (11.5-14.5); White Blood Count 13.7 K/mm3 (4.5-10.0)
[2024-09-14 12:59] LABS: Influenza A QL RT-PCR Negative (Negative); Influenza B QL RT-PCR Negative (Negative); RSV RNA, RT-PCR Negative (Negative); SARS-CoV-2 RNA PCR Positive (Negative)
--- OUTSIDE RECORDS SUMMARY | 2024-09-14 12:59 | XMS_ITS | Encounter Summary ---
Author Organization [facility] Address [address] [place] [address] Care Team Providers Care Corporation Pilot Name Role Phone Inderjit Narayan DO Primary Care Provider + Encounter Details Date Type Department Care Team (Late st Contact Info) Description 07/21/1999 Outpatient Historical [facility] Medicine - [facility] [address] [facility] [address] [place] [address] Tayler Viera MD [address] [place] [address] Social History Tobacco Use Types Packs/Day Years Used Date Smoking Tobacco: Never Assessed Sex and Gender Information Value Date Recorded Sex Assigned at Not on file Legal Sex Male 4:12 AM SPECIAL DELIVERY MESSENGER Gender Identity Not on file Sexual Orientation Not on file documented as of this encounter Plan of Treatment Not on file documented as of this encounter Visit Diagnoses Not on filedocumented in this encounter Care Teams Corporation Pilot Relationship Specialty Start Date End Date Inderjit Narayan DO [address] [place] [phone] PCP - General Family Practice 04/09/23 08/29/23 documented as of this encounter
--- OUTSIDE RECORDS SUMMARY | 2024-09-14 12:59 | XMS_ITS | Encounter Summary ---
Author Organization [facility] Address [address] [place] [address] Care Team Providers Care Drosser Name Role Phone Inderjit Narayan DO Primary Care Provider + Encounter Details Date Type Department Care Team (Late st Contact Info) Description 11/20/2008 Outpatient Historical [facility] Cristela Gant MD [address] [place] [address] Blood in Stool Social History Tobacco Use Types Packs/Day Years Used Date Smoking Tobacco: Never Alcohol Use Standard Drinks/Week Comments No 0 (1 standard drink = 0.6 oz pur e alcohol) Sex and Gender Information Value Date Recorded Sex Assigned at Not on file Legal Sex Male 4:12 AM MEDICAL ORDERLY Gender Identity Not on file Sexual Orientation Not on file documented as of this encounter Plan of Treatment Not on file documented as of this encounter Visit Diagnoses Diagnosis Blood in stool documented in this encounter Care Teams Drosser Relationship Specialty Start Date End Date Inderjit Narayan DO [facility] [place] [phone] PCP - General Family Practice 04/09/23 08/29/23 documented as of this encounter
--- OUTSIDE RECORDS SUMMARY | 2024-09-14 12:59 | XMS_ITS | Encounter Summary ---
Author Organization [facility] Address [address] [place] [address] Care Team Providers Care Gui Developer Name Role Phone Inderjit Narayan DO Primary Care Provider + Encounter Details Date Type Department Care Team (Late st Contact Info) Description 09/17/2000 Outpatient Historical [facility] Medicine - [facility] [address] [facility] [address] [place] [address] Tayler Viera MD [address] [place] [address] Social History Tobacco Use Types Packs/Day Years Used Date Smoking Tobacco: Never Assessed Sex and Gender Information Value Date Recorded Sex Assigned at Not on file Legal Sex Male 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
--- OUTSIDE RECORDS SUMMARY | 2024-09-14 12:59 | XMS_ITS | Encounter Summary ---
Author Organization [facility] Address [address] [place] [address] Care Team Providers Care Electronic Service Technician Name Role Phone Inderjit Narayan DO Primary Care Provider + Encounter Details Date Type Department Care Team (Late st Contact Info) Description 07/16/2000 Outpatient Historical [facility] Medicine - [facility] [address] [facility] [address] [place] [address] Tayler Viera MD [address] [place] [address] Social History Tobacco Use Types Packs/Day Years Used Date Smoking Tobacco: Never Assessed Sex and Gender Information Value Date Recorded Sex Assigned at Not on file Legal Sex Male 4:12 AM BODY STYLIST Gender Identity Not on file Sexual Orientation Not on file documented as of this encounter Plan of Treatment Not on file documented as of this encounter Visit Diagnoses Not on filedocumented in this encounter Care Teams Electronic Service Technician Relationship Specialty Start Date End Date Inderjit Narayan DO [address] [place] [phone] PCP - General Family Practice 04/09/23 08/29/23 documented as of this encounter
--- OUTSIDE RECORDS SUMMARY | 2024-09-14 12:59 | XMS_ITS | Encounter Summary ---
Author Organization [facility] Address [address] [place] [address] Care Team Providers Care Shackler Name Role Phone Inderjit Narayan Primary Care Provider + Encounter Details Date Type Department Care Team (Late st Contact Info) Description 11/06/2008 Outpatient Historical [facility] Kelle Gant MD [address] [place] [address] Blood in Stool Social History Tobacco Use Types Packs/Day Years Used Date Smoking Tobacco: Never Alcohol Use Standard Drinks/Week Comments No 0 (1 standard drink = 0.6 oz pur e alcohol) Sex and Gender Information Value Date Recorded Sex Assigned at Not on file Legal Sex Male 4:12 AM PULMONARY PHYSICAL THERAPIST Gender Identity Not on file Sexual Orientation [...] AM CDT Narrative 11/07/2008 8:52 AM CDT [facility] [address] [place], [place] [address] Admit Date: 11/06/2008 BRENDON ALDANA Sex: M Admit Prov: KELLE GANT Date: 1950 Primary Care Prov: TABATHA DRAPER CMRN: [id number] [id number] Ordering Prov: N/A Accession Number: [id number] Interpretation CT HEAD WITHOUT CONTRAST, 11/06/2008 Indication: [...] DARREN ESPARZA 11/07/2008 08:50 Transcribed: 11/06/2008 10:28 [facility] Procedure Note Darren Esparza - 11/07/[address] [address] Admit Date: 11/06/2008 BRENDON ALDANA Sex: M Admit Prov: KELLE GANT Date: 1950 Primary Care Prov: TABATHA DRAPER CMRN: [id number] Room: [facility] SSN: [id number] IMAGING SERVICES Ordering Prov: N/A Interpretation CT [...] stool documented in this encounter Care Teams Shackler Relationship Specialty Start Date End Date Inderjit Narayan DO [address] [place] [phone] PCP - General Family Practice 04/09/23 08/29/23 documented as of this encounter
--- OUTSIDE RECORDS SUMMARY | 2024-09-14 12:59 | XMS_ITS | Encounter Summary ---
Author Organization [facility] Address [address] [place] [address] Care Team Providers Care Site Operations Manager Name Role Phone RomelbentleyrickyjosselineInderjit Nayeli CHRISTIANSEN Primary Care Provider + Encounter Details Date Type Department Care Team (Late st Contact Info) Description 09/28/2008 Outpatient Historical [facility] Cristela Gant MD [address] [place] [address] Blood in Stool Social History Tobacco Use Types Packs/Day Years Used Date Smoking Tobacco: Never Alcohol Use Standard Drinks/Week Comments No 0 (1 standard drink = 0.6 oz pur e alcohol) Sex and Gender Information Value Date Recorded Sex Assigned at Not on file Legal Sex Male 4:12 AM CARTON FILLER Gender Identity Not on file Sexual Orientation Not on file documented as of this encounter Plan of Treatment Not on file documented as of this encounter Procedures Procedure Name Priority Date/Time Associated Diagnosis Comments PATHOLOGY Routine 09/28/2008 1:15 PM CARTON FILLER C. DIFFICILE DETECTION Routine 09/28/2008 12:57 PM CARTON FILLER FECAL LEUKOCYTES STAIN Routine 09/28/2008 12:57 PM CARTON FILLER OVA AND PARASITE SCREEN Routine 09/28/2008 12:57 PM CARTON FILLER STOOL CULTURE W/SHIGA TOXIN Routine 09/28/2008 12:57 PM CARTON FILLER documented in this encounter Results * PATHOLOGY (09/28/2008 1:15 PM CARTON FILLER) FINAL REPORT [facility] [address] [facility] [address] [place], [place] [address] Patient: SONG ALDANA : 1950 Procedure Date: 09/28/2008 Accession Date: 09/28/2008 Case No: [id number] Ordering Dr: CRISTELA GANT Case types AW, BW, FW, NW and SH are performed by [facility] [place], [place] SURGICAL PATHOLOGY & NON-GYNECOLOGIC CYTOPATHOLOGY REPORT [...] 06:03 pm Microscopic: The slides are labeled [id number] and Song Jovan. The left colon biopsy [...] 05:12 pm INTERFACE SYSTEM 09/28/2008 1:15 PM CARTON FILLER us Cristela Gant MD PATHOLOGY/CYTOLOGY ORDERABLES F inal Result Performing Organization Address [facility] Phone Number INTERFACE SYSTEM Refer to clinic/hospital department * OVA AND PARASITE SCREEN (09/28/2008 12:57 PM CARTON FILLER) FINAL REPORT Concentratio n: No ova or parasites seen. Trichrome: No ova or parasites seen. [facility] Stool specimen (specimen) 09/28/2008 12:57 PM CARTON FILLER 09/28/2008 1:49 PM CARTON FILLER Narrative INTERFACE SYSTEM - 10/01/2008 11:56 AM CARTON FILLER Performed by Pinstant Karma[address] [address] Performed by Pinstant Karma[address] [address] [place] Cristela Gant MD MICROBIOLOGY - GENERAL ORDERABL ES Final Result Performing Organization Address [facility] Phone Number INTERFACE SYSTEM Refer to clinic/hospital department [facility] CLIA# [id number] [address] [place] [address] * FECAL LEUKOCYTES STAIN (09/28/2008 12:57 PM CARTON FILLER) FINAL REPORT Rare WBC's seen [facility] Stool specimen (specimen) 09/28/2008 12:57 PM CARTON FILLER 09/28/2008 1:49 PM CARTON FILLER us Cristela Gant MD MICROBIOLOGY - GENERAL ORDERABL ES Final Result Performing Organization Address [facility] de Phone Number INTERFACE SYSTEM Refer to clinic/hospital department [facility] CLIA# [id number] [address] [place] [address] * STOOL CULTURE (09/28/2008 12:57 PM CARTON FILLER) FINAL REPORT No Salmonella isolated. No Shigella isolated. No Escherichia coli serogroup O157:H7 isolated. No Camplylobacter isolated. [facility] Stool specimen (specimen) 09/28/2008 12:57 PM CARTON FILLER 09/28/2008 1:49 PM CARTON FILLER Cristela Gant MD MICROBIOLOGY - GENERAL ORDERABL ES Final Result INTERFACE SYSTEM Refer to clinic/hospital department [facility] CLIA# [id number] [address] [place] [address] * CLOSTRIDIUM DIFFICILE TOXIN (09/28/2008 12:57 PM CARTON FILLER) FINAL REPORT NO Clostridium difficile Toxin A or B detected by EIA. A negative result does not rule out C. difficile associated diarrhea or colitis. [facility] Stool specimen (specimen) 09/28/2008 12:57 PM CARTON FILLER 09/28/2008 1:49 PM CARTON FILLER Cristela Gant MD MICROBIOLOGY - GENERAL ORDERABL ES Final Result Performing Organization Address City/[facility]/ZIP Co de Phone Number INTERFACE SYSTEM Refer to clinic/hospital department [facility] CLIA# [id number] [address] [place] [address] documented in this encounter Visit Diagnoses Diagnosis Blood in stool documented in this encounter Care Teams Site Operations Manager Relationship Specialty Start Date End Date Inderjit Narayan DO [address] [place] [phone] PCP - General Family Practice 04/09/23 08/29/23 documented as of this encounter
--- OUTSIDE RECORDS SUMMARY | 2024-09-14 12:59 | XMS_ITS | Encounter Summary ---
Author Organization [facility] Address [address] [place] [address] Care Team Providers Care Funeral Counselor Name Role Phone Inderjit Narayan DO Primary Care Provider + Encounter Details Date Type Department Care Team (Late st Contact Info) Description 09/24/2004 Outpatient Historical [facility] Medicine - [facility] [address] [facility] [address] [place] [address] Tayler Viera MD [address] [place] [address] Social History Tobacco Use Types Packs/Day Years Used Date Smoking Tobacco: Never Assessed Sex and Gender Information Value Date Recorded Sex Assigned at Not on file Legal Sex Male 4:12 AM ASSEMBLER SANDAL PARTS Gender Identity Not on file Sexual Orientation Not on file documented as of this encounter Plan of Treatment Not on file documented as of this encounter Visit Diagnoses Not on filedocumented in this encounter Care Teams Funeral Counselor Relationship Specialty Start Date End Date Inderjit Narayan DO [address] [place] [phone] PCP - General Family Practice 04/09/23 08/29/23 documented as of this encounter
--- OUTSIDE RECORDS SUMMARY | 2024-09-14 12:59 | XMS_ITS | Encounter Summary ---
Author Organization [facility] Address [address] [place] [address] Care Team Providers Care Automotive Sales Executive Name Role Phone Inderjit Narayan DO Primary Care Provider + Encounter Details Date Type Department Care Team (Late st Contact Info) Description 01/30/2002 Outpatient Historical [facility] Medicine - [facility] [address] [facility] [address] [place] [address] Tayler Viera MD [address] [place] [address] Social History Tobacco Use Types Packs/Day Years Used Date Smoking Tobacco: Never Assessed Sex and Gender Information Value Date Recorded Sex Assigned at Not on file Legal Sex Male 4:12 AM MEAT LUGGER Gender Identity Not on file Sexual Orientation Not on file documented as of this encounter Plan of Treatment Not on file documented as of this encounter Visit Diagnoses Not on filedocumented in this encounter Care Teams Automotive Sales Executive Relationship Specialty Start Date End Date Inderjit Narayan DO [address] [place] [phone] PCP - General Family Practice 04/09/23 08/29/23 documented as of this encounter
--- OUTSIDE RECORDS SUMMARY | 2024-09-14 12:59 | XMS_ITS | Encounter Summary ---
Author Organization [facility] Address [address] [place] [address] Care Team Providers Care Processing Rep Name Role Phone Inderjit Narayan DO Primary Care Provider + Encounter Details Date Type Department Care Team (Late st Contact Info) Description 06/09/1999 Outpatient Historical [facility] Medicine - [facility] [address] [facility] [address] [place] [address] Tayler Viera MD [address] [place] [address] Social History Tobacco Use Types Packs/Day Years Used Date Smoking Tobacco: Never Assessed Sex and Gender Information Value Date Recorded Sex Assigned at Not on file Legal Sex Male 4:12 AM GIS APPLICATION DEVELOPER Gender Identity Not on file Sexual Orientation Not on file documented as of this encounter Plan of Treatment Not on file documented as of this encounter Visit Diagnoses Not on filedocumented in this encounter Care Teams Processing Rep Relationship Specialty Start Date End Date Inderjit Narayan DO [address] [place] [phone] PCP - General Family Practice 04/09/23 08/29/23 documented as of this encounter
--- OUTSIDE RECORDS SUMMARY | 2024-09-14 12:59 | XMS_ITS | Encounter Summary ---
Author Organization [facility] Address [address] [place] [address] Care Team Providers Care Manager Talent Management Name Role Phone Inderjit Narayan DO Primary Care Provider + Encounter Details Date Type Department Care Team (Late st Contact Info) Description 10/29/2003 Outpatient Historical [facility] Medicine - [facility] [address] [facility] [address] [place] [address] Tayler Viera MD [address] [place] [address] Social History Tobacco Use Types Packs/Day Years Used Date Smoking Tobacco: Never Assessed Sex and Gender Information Value Date Recorded Sex Assigned at Not on file Legal Sex Male 4:12 AM NURSE INFORMATICS EDUCATOR Gender Identity Not on file Sexual Orientation Not on file documented as of this encounter Plan of Treatment Not on file documented as of this encounter Visit Diagnoses Not on filedocumented in this encounter Care Teams Manager Talent Management Relationship Specialty Start Date End Date Inderjit Narayan DO [address] [place] [phone] PCP - General Family Practice 04/09/23 08/29/23 documented as of this encounter
--- OUTSIDE RECORDS SUMMARY | 2024-09-14 12:59 | XMS_ITS | Encounter Summary ---
Author Organization [facility] Address [address] [place] [address] Care Team Providers Care Banbury Operator Name Role Phone Inderjit Narayan DO Primary Care Provider + Reason for Visit * Reason Onset Date Comments Advice 09/14/2024 Encounter Details Date Type Department Care Team (Late st Contact Info) Description 09/14/2024 Telephone [facility] Family & Internal Medicine [facility] [address] [place] [address] Inderjit Narayan DO [address] [place] [address] Advice Social History Tobacco Use Types Packs/Day Years Used Date Smoking Tobacco: Never Passive Smoke Exposure: Never Smokeless Tobacco: Never Alcohol Use Standard Drinks/Week Comments Never 0 (1 standard drink = 0.6 oz pur e alcohol) PHQ-2 Answer Date Recorded Patient Health Questionnaire-2 Score 0 11/17/2023 Sex and Gender Information Value Date Recorded Sex Assigned at Male 09/08/2024 2:02 PM FUSE CUTTER Legal Sex Male 10:29 AM FUSE CUTTER Gender Identity Not on file Sexual Orientation Not on file Occupation Industry Job Start Date Job End Date Not on file Not on file Not on file Not on file documented as of this encounter Progress Notes * Leslie Saab RN - 09/14/2024 11:18 AM CST Called and spoke with the patient and his . Patient was extremely SOB and reported an oxygen saturation of 83 per home monitor. This nurse advised that the patient go to ED right away for furtherevaluation. Patient verbalized understanding. Opportunity given for all questions to be answered, no further needs voiced at this time. LL-09/14/24 CUTTER CUTTER * Jessica Farr - 09/14/2024 10:30 AM CST Pt called in stating took oxygen sats and it was coming up in the low 80s. Please advise CUTTER documented in this encounter Plan of Treatment Upcoming Encounters Date Type Department Care Team (Latest Contact Info) Description 09/15/2024 10:00 AM FUSE CUTTER Office Visit [facility] Family & Internal Medicine - [id number] [place] [address] Inderjit Narayan DO [address] [place] [address] 10/05/2024 3:00 PM FUSE CUTTER Hospital Encounter [facility] Respiratory Therapy [address] [facility] [place] [address] Guido Rider DO [address] [facility] [address] [place] [address] 10/13/2024 10:30 AM FUSE CUTTER Office Visit [facility] Multispecialty Care - [facility] [address] [place] [address] Guido Rider DO [address] [facility] [address] [place] [address] 01/08/2025 2:20 PM CDT Office Visit [facility] Family & Internal Medicine [facility] [address] [place] [address] Inderjit Narayan DO [address] [place] [address] documented as of this encounter Visit Diagnoses Not on filedocumented in this encounter Care Teams Banbury Operator Relationship Specialty Start Date End Date Inderjit Narayan DO [address] [place] [address] PCP - General 12/19/22 documented as of this encounter
--- OUTSIDE RECORDS SUMMARY | 2024-09-14 12:59 | XMS_ITS | Encounter Summary ---
Author Organization [facility] Address [address] [place] [address] Care Team Providers Care Beef Skinner Name Role Phone Inderjit Narayan DO Primary Care Provider + Encounter Details Date Type Department Care Team (Late st Contact Info) Description 09/14/2005 Outpatient Historical [facility] Medicine - [facility] [address] [facility] [address] [place] [address] Tayler Viera MD [address] [place] [address] Social History Tobacco Use Types Packs/Day Years Used Date Smoking Tobacco: Never Assessed Sex and Gender Information Value Date Recorded Sex Assigned at Not on file Legal Sex Male 4:12 AM 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
--- OUTSIDE RECORDS SUMMARY | 2024-09-14 12:59 | XMS_ITS | Encounter Summary ---
Author Organization [facility] Address [address] [place] [address] Care Team Providers Care Gas Prover Name Role Phone Inderjit Narayan DO Primary Care Provider + Encounter Details Date Type Department Care Team (Late st Contact Info) Description 03/06/2005 Outpatient Historical [facility] Medicine - [facility] [address] [facility] [address] [place] [address] Tayler Viera MD [address] [place] [address] Social History Tobacco Use Types Packs/Day Years Used Date Smoking Tobacco: Never Assessed Sex and Gender Information Value Date Recorded Sex Assigned at Not on file Legal Sex Male 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
--- OUTSIDE RECORDS SUMMARY | 2024-09-14 12:59 | XMS_ITS | Clinical Summary ---
Author Organization [facility] Address [address] [place], [place] [address] Phone Care Team Providers Care Professor Of Social Work Name Role Phone Unavailable Primary [...] by mouth. Active sod bicarb-sod chlor-neti pot ([place] Saline Nasal Neti Rinse) packet with rinse [...] Active Fluticasone Furoate (FLONASE SENSIMIST) 27.5 mcg/actuation [place], Suspension Administer 2 Sprays in each nostril [...] on file Legal Sex Male 4:12 AM SATELLITE DISH REPAIRER Gender Identity Not on file Sexual [...] , 10/14/2017 Medical Devices Implanted Type Area Chairman Device Identifier Shelf Expiration Date Model / Serial / Lot [place] Speedbridge W/ Biocmpst Swivelck [id number] - [id number] Implanted:Qty: 1 on 09/30/2018 by Nehemiah Castellano MD [place] [facility] [place] Right: Shoulder [employer] 08/08/2020 [id number] / / [id number] Procedures Procedure Name Priority Date/Time Associated Diagnosis Comments COLONOSCOPY REPORT 04/09/2023 10 :14 AM CDT OCCULT BLOOD IMMUNOASSAY, COLORECTAL SCREEN Routine 04/26/2019 9:19 PM CDT Screening for colon cancer from Last 3 Months or Most Recently Relevant to Health Maintenance Results * COLONOSCOPY REPORT (04/09/2023 10:14 AM CDT) Narrative Procedure Note Modesta Wise DO - 04/09/2023 10:14 AM CDT [facility] Endoscopy Patient Name: Brendon Aldana Procedure [...] Addenda: 0 Procedure Date: 04/09/2023 9:32:32 AM [address] [facility] [address] [place] [address] Modesta Wise DO GI PROCEDURE ORDERABLES Fin al Result * (ABNORMAL) OCCULT BLOOD IMMUNOASSAY, COLORECTAL SCREEN (04/26/2019 9:19 PM CDT) OCCULT BLOOD, STOOL Positive(A ) Negative 04/27/2019 11:28 PM CDT [facility] Stool STOOL SPECIMEN / Unknown Collection / Unknown 04/26/2019 9:19 PM CDT 04/27/2019 9:19 PM CDT Ciro Fernandez DO BODY FLUIDS AND STOOLS Final Res ult [facility] CLIA# [id number] [address] [facility] [place] [address] from Last 3 Months or Most Recently Relevant to [place] [address] MEDICARE PART A AND B [facility] Advance Directives For more information, please contact: [phone] * Full Code (Latest Code Status on [...]
--- OUTSIDE RECORDS SUMMARY | 2024-09-14 12:59 | XMS_ITS | Patient Health Summary ---
Author Organization [facility] Address [address] [place] [address] Care Team Providers Care Over Short And Damage Clerk Name Role Phone Landry Fernandez DO Primary Care Provider [phone] [facility],non-owned Affiliates and Associated Physician Practices is amultiple site organization consisting of ambulatory clinics and hospital sitesin [place], [place], [place] and [place]. This disclosure is being madepursuant to the Care Everywhere program and may not contain all information available regarding this patient. Last updated 18.[facility] Allergies * Methylprednisolone(Rash) -Medium Criticality * Sulfamethoxazole W-Trimethoprim(Rash) -Medium Criticality Medications * Be aware that medications may not be up to date on this document. Alwaysverify current medications with the patient. * fluticasone propionate (FLONASE) 50 MCG/ACT nasal spray [place] 2 Sprays into each nostril once daily [...] Comments Blood Pressure 110/70 06/20/2019 10:06 AM EXCEPTIONAL STUDENT EDUCATION AIDE Pulse 80 06/20/2019 10:06 AM EXCEPTIONAL STUDENT EDUCATION AIDE Temperature 36.8 C (98.3 F) 06/20/2019 10:06 AM EXCEPTIONAL STUDENT EDUCATION AIDE Respiratory Rate 17 06/20/2019 10:06 AM EXCEPTIONAL STUDENT EDUCATION AIDE Oxygen Saturation 96% 06/20/2019 10:06 AM EXCEPTIONAL STUDENT EDUCATION AIDE Inhaled Oxygen Concentration - - Weight 92.5 kg (204 lb) 06/20/2019 10:06 AM EXCEPTIONAL STUDENT EDUCATION AIDE Height 180.3 cm (5' 11 ) 06/20/2019 10:06 AM EXCEPTIONAL STUDENT EDUCATION AIDE Body Mass Index 28.45 06/20/2019 10:06 AM EXCEPTIONAL STUDENT EDUCATION AIDE Care Teams Over Short And Damage Clerk Relationship Specialty Start Date End Date Landry Fernandez DO PCP - General Family Medicine 04/19/16
--- OUTSIDE RECORDS SUMMARY | 2024-09-14 12:59 | XMS_ITS | Encounter Summary ---
Author Organization [facility] Address [address] [place] [address] Care Team Providers Care Aws Architect Name Role Phone Inderjit Narayan DO Primary Care Provider + Encounter Details Date Type Department Care Team (Late st Contact Info) Description 04/16/2000 Outpatient Historical [facility] Medicine - [facility] [address] [facility] [address] [place] [address] Dimitry Powell MD [address] [facility] [address] [place] [address] Social History Tobacco Use Types Packs/Day Years Used Date Smoking Tobacco: Never Assessed Sex and Gender Information Value Date Recorded Sex Assigned at Not on file Legal Sex Male 4:12 AM LIFT MECHANIC Gender Identity Not on file Sexual Orientation Not on file documented as of this encounter Plan of Treatment Not on file documented as of this encounter Visit Diagnoses Not on filedocumented in this encounter Care Teams Aws Architect Relationship Specialty Start Date End Date Inderjit Narayan DO [address] [place] [phone] PCP - General Family Practice 04/09/23 08/29/23 documented as of this encounter
--- OUTSIDE RECORDS SUMMARY | 2024-09-14 12:59 | XMS_ITS | Encounter Summary ---
Author Organization [facility] Address [address] [place] [address] Care Team Providers Care Painter And Grader Cork Name Role Phone Inderjit Narayan DO Primary Care Provider + Encounter Details Date Type Department Care Team (Late st Contact Info) Description 06/30/1999 Outpatient Historical [facility] Medicine - [facility] [address] [facility] [address] [place] [address] Tayler Viera MD [address] [place] [address] Social History Tobacco Use Types Packs/Day Years Used Date Smoking Tobacco: Never Assessed Sex and Gender Information Value Date Recorded Sex Assigned at Not on file Legal Sex Male 4:12 AM TOW DRIVER Gender Identity Not on file Sexual Orientation Not on file documented as of this encounter Plan of Treatment Not on file documented as of this encounter Visit Diagnoses Not on filedocumented in this encounter Care Teams Painter And Grader Cork Relationship Specialty Start Date End Date Inderjit Narayan DO [address] [place] [phone] PCP - General Family Practice 04/09/23 08/29/23 documented as of this encounter
--- OUTSIDE RECORDS SUMMARY | 2024-09-14 12:59 | XMS_ITS | Encounter Summary ---
Author Organization [facility] Address [address] [place] [address] Care Team Providers Care Soldering Machine Feeder Name Role Phone Inderjit Narayan DO Primary Care Provider + Encounter Details Date Type Department Care Team (Late st Contact Info) Description 06/07/[address] [facility] Medicine - [facility] [address] [facility] [place] [address] Najma Aquino MD [address] [facility] [address] [place] [address] Social History Tobacco Use Types Packs/Day Years Used Date Smoking Tobacco: Never Assessed Sex and Gender Information Value Date Recorded Sex Assigned at Not on file Legal Sex Male 4:12 AM CIRCULAR HEAD SAW OPERATOR Gender Identity Not on file Sexual Orientation Not on file documented as of this encounter Plan of Treatment Not on file documented as of this encounter Visit Diagnoses Not on filedocumented in this encounter Care Teams Soldering Machine Feeder Relationship Specialty Start Date End Date Inderjit Narayan DO [facility] [place] [address] PCP - General Family Practice 04/09/23 08/29/23 documented as of this encounter
--- OUTSIDE RECORDS SUMMARY | 2024-09-14 12:59 | XMS_ITS | Encounter Summary ---
Author Organization [facility] Address [address] [place] [address] Care Team Providers Care Machine Rigger Name Role Phone Inderjit Narayan DO Primary Care Provider + Encounter Details Date Type Department Care Team (Late st Contact Info) Description 02/05/2006 Outpatient Historical [facility] Medicine - [facility] [address] [facility] [address] [place] [address] Tayler Viera MD [address] [place] [address] Social History Tobacco Use Types Packs/Day Years Used Date Smoking Tobacco: Never Assessed Sex and Gender Information Value Date Recorded Sex Assigned at Not on file Legal Sex Male 4:12 AM DISTILLERY WORKER GENERAL Gender Identity Not on file Sexual Orientation Not on file documented as of this encounter Plan of Treatment Not on file documented as of this encounter Visit Diagnoses Not on filedocumented in this encounter Care Teams Machine Rigger Relationship Specialty Start Date End Date Inderjit Narayan DO [address] [place] [phone] PCP - General Family Practice 04/09/23 08/29/23 documented as of this encounter
--- OUTSIDE RECORDS SUMMARY | 2024-09-14 12:59 | XMS_ITS | Encounter Summary ---
Author Organization [facility] Address [address] [place] [address] Care Team Providers Care Industry Segment Specialist Name Role Phone Inderjit Narayan DO Primary Care Provider + Encounter Details Date Type Department Care Team (Late st Contact Info) Description 06/23/1999 Outpatient Historical [facility] Medicine - [facility] [address] [facility] [address] [place] [address] Tayler Viera MD [address] [place] [address] Social History Tobacco Use Types Packs/Day Years Used Date Smoking Tobacco: Never Assessed Sex and Gender Information Value Date Recorded Sex Assigned at Not on file Legal Sex Male 4:12 AM PRESSURE DISPATCHER Gender Identity Not on file Sexual Orientation Not on file documented as of this encounter Plan of Treatment Not on file documented as of this encounter Visit Diagnoses Not on filedocumented in this encounter Care Teams Industry Segment Specialist Relationship Specialty Start Date End Date Inderjit Narayan DO [address] [place] [phone] PCP - General Family Practice 04/09/23 08/29/23 documented as of this encounter
--- OUTSIDE RECORDS SUMMARY | 2024-09-14 12:59 | XMS_ITS | Encounter Summary ---
Author Organization [facility] Address [address] [place] [address] Care Team Providers Care Printer Apprentice Name Role Phone Inderjit Narayan DO Primary Care Provider + Encounter Details Date Type Department Care Team (Late st Contact Info) Description 07/23/1999 Outpatient Historical [facility] Medicine - [facility] [address] [facility] [address] [place] [address] Tayler Viera MD [address] [place] [address] Social History Tobacco Use Types Packs/Day Years Used Date Smoking Tobacco: Never Assessed Sex and Gender Information Value Date Recorded Sex Assigned at Not on file Legal Sex Male 4:12 AM OPERATIONAL INTELLIGENCE ANALYST Gender Identity Not on file Sexual Orientation Not on file documented as of this encounter Plan of Treatment Not on file documented as of this encounter Visit Diagnoses Not on filedocumented in this encounter Care Teams Printer Apprentice Relationship Specialty Start Date End Date Inderjit Narayan DO [address] [place] [phone] PCP - General Family Practice 04/09/23 08/29/23 documented as of this encounter
--- OUTSIDE RECORDS SUMMARY | 2024-09-14 12:59 | XMS_ITS | Encounter Summary ---
Author Organization [facility] Address [address] [place] [address] Care Team Providers Care Crane Man Name Role Phone Inderjit Narayan DO Primary Care Provider + Encounter Details Date Type Department Care Team (Late st Contact Info) Description 05/02/2007 Outpatient Historical [facility] Medicine - [facility] [address] [facility] [address] [place] [address] Robin Dexter MD [address] [place] [address] Social History Tobacco Use Types Packs/Day Years Used Date Smoking Tobacco: Never Assessed Sex and Gender Information Value Date Recorded Sex Assigned at Not on file Legal Sex Male 4:12 AM PROSTHODONTIST/EDUCATOR Gender Identity Not on file Sexual Orientation Not on file documented as of this encounter Plan of Treatment Not on file documented as of this encounter Visit Diagnoses Not on filedocumented in this encounter Care Teams Crane Man Relationship Specialty Start Date End Date Inderjit Narayan DO [address] [place] [address] [address] PCP - General Family Practice 04/09/23 08/29/23 documented as of this encounter
--- OUTSIDE RECORDS SUMMARY | 2024-09-14 12:59 | XMS_ITS | Clinical Summary ---
Author Organization [facility] Address [address] [place] [address] Care Team Providers Care Insurance Sales Producer Name Role Phone Landry Fernandez DO Primary Care Provider [phone] Source Comments [facility],non-owned Affiliates and Associated Physician Practices is amultiple site organization consisting of ambulatory clinics and hospital sitesin [place], [place], [place] and [place]. This disclosure is being madepursuant to the Care Everywhere program and may not contain all information available regarding this patient. Last updated 18.[facility] Allergies Active Allergy Reactions Criticality Noted Date Comments Methylprednisolone Rash Medium 07/12/2012 redness Sulfamethoxazole W-Trimethoprim Rash Medium 01/2010 Medications * Be aware that medications may not be up to date on this document. Alwaysverify current medications with the patient. Medication Sig Dispensed Refills Start Date End Date Status fluticasone propionate (FLONASE) 50 MCG/ACT nasal spray [place] 2 Sprays into each nostril once daily [...] Comments Blood Pressure 110/70 06/20/2019 10:06 AM RESEARCH PROGRAM MANAGER Pulse 80 06/20/2019 10:06 AM RESEARCH PROGRAM MANAGER Temperature 36.8 C (98.3 F) 06/20/2019 10:06 AM RESEARCH PROGRAM MANAGER Respiratory Rate 17 06/20/2019 10:06 AM RESEARCH PROGRAM MANAGER Oxygen Saturation 96% 06/20/2019 10:06 AM RESEARCH PROGRAM MANAGER Inhaled Oxygen Concentration - - Weight 92.5 kg (204 lb) 06/20/2019 10:06 AM RESEARCH PROGRAM MANAGER Height 180.3 cm (5' 11 ) 06/20/2019 10:06 AM RESEARCH PROGRAM MANAGER Body Mass Index 28.45 06/20/2019 10:06 AM RESEARCH PROGRAM MANAGER Plan of Treatment Health Maintenance Due Date [...] age to complete this topic Care Teams Insurance Sales Producer Relationship Specialty Start Date End Date Landry Fernandez DO PCP - General Family Medicine 04/19/16
--- OUTSIDE RECORDS SUMMARY | 2024-09-14 12:59 | XMS_ITS | Referral Summary ---
Author Organization [facility] Address [address] [place] [address] Care Team Providers Care Billing Control Clerk Name Role Phone Landry Fernandez DO Primary Care Provider [phone] Source Comments [facility],non-owned Affiliates and Associated Physician Practices is amultiple site organization consisting of ambulatory clinics and hospital sitesin [place], [place], [place] and [place]. This disclosure is being madepursuant to the Care Everywhere program and may not contain all information available regarding this patient. Last updated 18.[facility] Allergies Active Allergy Reactions Criticality Noted Date Comments Methylprednisolone Rash Medium 07/12/2012 redness Sulfamethoxazole W-Trimethoprim Rash Medium 01/2010 Medications * Be aware that medications may not be up to date on this document. Alwaysverify current medications with the patient. Medication Sig Dispensed Refills Start Date End Date Status fluticasone propionate (FLONASE) 50 MCG/ACT nasal spray [place] 2 Sprays into each nostril once daily [...] Comments Blood Pressure 110/70 06/20/2019 10:06 AM VETERINARY ASSISTANT Pulse 80 06/20/2019 10:06 AM VETERINARY ASSISTANT Temperature 36.8 C (98.3 F) 06/20/2019 10:06 AM VETERINARY ASSISTANT Respiratory Rate 17 06/20/2019 10:06 AM VETERINARY ASSISTANT Oxygen Saturation 96% 06/20/2019 10:06 AM VETERINARY ASSISTANT Inhaled Oxygen Concentration - - Weight 92.5 kg (204 lb) 06/20/2019 10:06 AM VETERINARY ASSISTANT Height 180.3 cm (5' 11 ) 06/20/2019 10:06 AM VETERINARY ASSISTANT Body Mass Index 28.45 06/20/2019 10:06 AM VETERINARY ASSISTANT Plan of Treatment Not on file Care Teams Billing Control Clerk Relationship Specialty Start Date End Date Landry Fernandez DO PCP - General Family Medicine 04/19/16
--- OUTSIDE RECORDS SUMMARY | 2024-09-14 12:59 | XMS_ITS | Encounter Summary ---
Author Organization [facility] Address [address] [place] [address] Care Team Providers Care Cylinder Tester Name Role Phone Inderjit Narayan DO Primary Care Provider + Encounter Details Date Type Department Care Team (Late st Contact Info) Description 04/08/2004 Outpatient Historical [facility] Medicine - [facility] [address] [facility] [address] [place] [address] Tayler Viera MD [address] [place] [address] Social History Tobacco Use Types Packs/Day Years Used Date Smoking Tobacco: Never Assessed Sex and Gender Information Value Date Recorded Sex Assigned at Not on file Legal Sex Male 4:12 AM CRTS Gender Identity Not on file Sexual Orientation Not on file documented as of this encounter Plan of Treatment Not on file documented as of this encounter Visit Diagnoses Not on filedocumented in this encounter Care Teams Cylinder Tester Relationship Specialty Start Date End Date Inderjit Narayan DO [address] [place] [phone] PCP - General Family Practice 04/09/23 08/29/23 documented as of this encounter
--- OUTSIDE RECORDS SUMMARY | 2024-09-14 12:59 | XMS_ITS | Encounter Summary ---
Author Organization [facility] Address [address] [place] [address] Care Team Providers Care Screening Specialist Name Role Phone Inderjit Narayan DO Primary Care Provider + Encounter Details Date Type Department Care Team (Late st Contact Info) Description 09/02/2007 Outpatient Historical [facility] Medicine - [facility] [address] [facility] [address] [place] [address] Tayler Viera MD [address] [place] [address] Social History Tobacco Use Types Packs/Day Years Used Date Smoking Tobacco: Never Assessed Sex and Gender Information Value Date Recorded Sex Assigned at Not on file Legal Sex Male 4:12 AM CLINICAL RESEARCH DIRECTOR Gender Identity Not on file Sexual Orientation Not on file documented as of this encounter Plan of Treatment Not on file documented as of this encounter Visit Diagnoses Not on filedocumented in this encounter Care Teams Screening Specialist Relationship Specialty Start Date End Date Inderjit Narayan DO [address] [place] [phone] PCP - General Family Practice 04/09/23 08/29/23 documented as of this encounter
--- OUTSIDE RECORDS SUMMARY | 2024-09-14 12:59 | XMS_ITS | Encounter Summary ---
Author Organization [facility] Address [address] [place] [address] Care Team Providers Care Carnallite Plant Operator Name Role Phone Inderjit Narayan DO Primary Care Provider + Encounter Details Date Type Department Care Team (Late st Contact Info) Description 06/10/2001 Outpatient Historical [facility] Medicine - [facility] [address] [facility] [address] [place] [address] Tayler Viera MD [address] [place] [address] Social History Tobacco Use Types Packs/Day Years Used Date Smoking Tobacco: Never Assessed Sex and Gender Information Value Date Recorded Sex Assigned at Not on file Legal Sex Male 4:12 AM MENTAL HEALTH ASSOCIATE Gender Identity Not on file Sexual Orientation Not on file documented as of this encounter Plan of Treatment Not on file documented as of this encounter Visit Diagnoses Not on filedocumented in this encounter Care Teams Carnallite Plant Operator Relationship Specialty Start Date End Date Inderjit Narayan DO [address] [place] [phone] PCP - General Family Practice 04/09/23 08/29/23 documented as of this encounter
--- OUTSIDE RECORDS SUMMARY | 2024-09-14 13:00 | XMS_ITS | Encounter Summary ---
Author Organization [facility] Address [address] [place] [address] Care Team Providers Care Production Statistical Clerk Name Role Phone Inderjit Narayan DO Primary Care Provider + Encounter Details Date Type Department Care Team (Late st Contact Info) Description 04/29/2001 Outpatient Historical [facility] Medicine - [facility] [address] [facility] [address] [place] [address] Dimitry Powell MD [address] [facility] [address] [place] [address] Social History Tobacco Use Types Packs/Day Years Used Date Smoking Tobacco: Never Assessed Sex and Gender Information Value Date Recorded Sex Assigned at Not on file Legal Sex Male 4:12 AM SHUTTLER CAR Gender Identity Not on file Sexual Orientation Not on file documented as of this encounter Plan of Treatment Not on file documented as of this encounter Visit Diagnoses Not on filedocumented in this encounter Care Teams Production Statistical Clerk Relationship Specialty Start Date End Date Inderjit Narayan DO [address] [place] [phone] PCP - General Family Practice 04/09/23 08/29/23 documented as of this encounter
--- OUTSIDE RECORDS SUMMARY | 2024-09-14 13:00 | XMS_ITS | Clinical Summary ---
Author Organization [facility] Address [address] [place] [address] Care Team Providers Care Garbage Depot Worker Name Role Phone Unavailable Primary Care [...]
--- OUTSIDE RECORDS SUMMARY | 2024-09-14 13:00 | XMS_ITS | Clinical Summary ---
Author Organization [facility] Address [facility] [place] [address] Care Team Providers Care Lead Software Qa Engineer Name Role Phone RomelcristopherInderjit Nayeli CHRISTIANSEN Primary [...] sulfate HFA 108 (90 Base) MCG/ACT inhalerIndications:Subac nikolai cough INHALE 2 PUFFS INTO THE LUNGS [...] 24 Active omeprazole (PRILOSEC) 40 MG capsuleIndications:Subac nikolai cough TAKE 1 CAPSULE (40 MG TOTAL) [...] Type Department Care Team Description 09/14/2024 Telephone [facility] Family & Internal Medicine [address] [address] Inderjit Narayan DO Advice 09/08/2024 2:02 PM HOOP PUNCH AND COILER OPERATOR - 09/08/2024 11:59 PM HOOP PUNCH AND COILER OPERATOR Hospital Encounter [facility] [address] [place] [address] Guido Carrillo DO Discharge Disposition: Home or Self Care (Routine Discharge) 09/08/2024 Travel 09/05/2024 8:00 AM HOOP PUNCH AND COILER OPERATOR Laboratory Only [facility] Family & Internal Medicine [address] [address] Inderjit Narayan DO 09/05/2024 Travel 08/15/2024 Telephone [facility] [address] [address] Guido Carrillo DO Reschedule 08/12/2024 Scan [facility] Scanned, [facility] Lab (SCAN) 08/12/2024 Scan [facility] Scanned, [facility] Image (SCAN) 07/10/2024 2:20 PM HOOP PUNCH AND COILER OPERATOR Office Visit [facility] Family & Internal Medicine [address] [address] Inderjit Narayan DO Hand Pain (Right hand [...] 11/17/2018,08/09/2007 Family History Medical History Relation Comments MA Father Leukemia Grandson Cancer Maternal Grandfather Heart [...] Sex Assigned at Male 09/08/2024 2:02 PM HOOP PUNCH AND COILER OPERATOR Legal Sex Male 10:29 AM HOOP PUNCH AND COILER OPERATOR Gender Identity Not on file Sexual Orientation Not on file Occupation Industry Job Start Date Job End Date Not on file Not on file Not on file Not on file Last Filed Vital Signs Vital Sign Reading Time Taken Comments Blood Pressure 132/70 07/10/2024 2:19 PM HOOP PUNCH AND COILER OPERATOR Pulse 72 07/10/2024 2:19 PM HOOP PUNCH AND COILER OPERATOR Temperature 36.2 C (97.2 F) 07/10/2024 2:19 PM HOOP PUNCH AND COILER OPERATOR Respiratory Rate 16 07/10/2024 2:19 PM HOOP PUNCH AND COILER OPERATOR Oxygen Saturation 95% 07/10/2024 2:19 PM HOOP PUNCH AND COILER OPERATOR Inhaled Oxygen Concentration - - Weight 96.7 kg (213 lb 3.2 oz) 07/10/2024 2:19 P M HOOP PUNCH AND COILER OPERATOR Height 180.3 cm (5' 11 ) 07/10/2024 2:19 PM HOOP PUNCH AND COILER OPERATOR Body Mass Index 29.74 07/10/2024 2:19 PM HOOP PUNCH AND COILER OPERATOR Plan of Treatment Upcoming Encounters Date Type Department Care Team (Latest Contact Info) Description 09/15/2024 10:00 AM HOOP PUNCH AND COILER OPERATOR Office Visit [facility] Medical [facility] Family & Internal Medicine [address] [phone] Inderjit Narayan DO [address] [place] [address] 10/05/2024 3:00 PM HOOP PUNCH AND COILER OPERATOR Hospital Encounter [facility] Respiratory Therapy [address] [place] [address] Guido Carrillo DO [address] [facility] [address] [place] [address] 10/13/2024 10:30 AM HOOP PUNCH AND COILER OPERATOR Office Visit [facility] Multispecialty Care - [facility] [address] [facility] [address] [place] [address] Guido Carrillo DO [address] [facility] [address] [place] [address] 01/08/2025 2:20 PM CDT Office Visit [facility] Family & Internal Medicine - [place] [address] [place] [address] Inderjit Narayan DO [address] [place] [address] Health Maintenance Due Date Last Done Comments RSV Immunization or 60+ Years (1 - Risk 60-74 years 1-dose series) 2012 Annual Medicare Wellness Visit 2017 PHQ-2 (Physician [place]) 08/09/2024 11/17/2023 Influenza Adult (#1) 2025 06/11/2023, [...] CHEST WO CON Routine 09/08/2024 2:21 PM HOOP PUNCH AND COILER OPERATOR Abnormal CT scan of lung Multiple nodules of lung COLLECTION VENOUS BLOOD VENIPUNCTURE Routine 09/05/2024 8:18 AM HOOP PUNCH AND COILER OPERATOR Essential hypertension, benign Pure hypercholesterolem ia Vitamin D deficiency Prediabetes Annual physical exam Screening for prostate cancer CBC W/DIFF AUTOMATED Routine 09/05/2024 8:18 AM HOOP PUNCH AND COILER OPERATOR Essential hypertension, benign Pure hypercholesterolem ia Vitamin D deficiency Prediabetes Annual physical exam Screening for prostate cancer COMPREHENSIVE METABOLIC PANEL Routine 09/05/2024 8:18 AM HOOP PUNCH AND COILER OPERATOR Essential hypertension, benign Pure hypercholesterolem ia Vitamin D deficiency Prediabetes Annual physical exam Screening for prostate cancer TSH W/REFLEX Routine 09/05/2024 8:18 AM HOOP PUNCH AND COILER OPERATOR Essential hypertension, benign Pure hypercholesterolem ia Vitamin D deficiency Prediabetes Annual physical exam Screening for prostate cancer LIPID PANEL Routine 09/05/2024 8:18 AM HOOP PUNCH AND COILER OPERATOR Essential hypertension, benign Pure hypercholesterolem ia Vitamin D deficiency Prediabetes Annual physical exam Screening for prostate cancer VITAMIN D, 25 OH Routine 09/05/2024 8:18 AM HOOP PUNCH AND COILER OPERATOR Essential hypertension, benign Pure hypercholesterolem ia Vitamin D deficiency Prediabetes Annual physical exam Screening for prostate cancer PROSTATE SPECIFIC ANTIGEN,SCREENING Routine 09/05/2024 8:18 AM HOOP PUNCH AND COILER OPERATOR Essential hypertension, benign Pure hypercholesterolem ia Vitamin D deficiency Prediabetes Annual physical exam Screening for prostate cancer HEMOGLOBIN, GLYCOSYLATED Routine 09/05/2024 8:18 AM HOOP PUNCH AND COILER OPERATOR Essential hypertension, benign Pure hypercholesterolem ia Vitamin D deficiency Prediabetes Annual physical exam Screening for prostate cancer URIC ACID BLOOD Routine 09/05/2024 8:18 AM HOOP PUNCH AND COILER OPERATOR Essential hypertension, benign Pure hypercholesterolem ia Vitamin D deficiency Prediabetes Annual physical exam Screening for prostate cancer OUTSIDE LAB COVID-19 (SCAN ORDER) Routine 08/12/2024 IMAGE GENERIC 08/12/2024 REMOVAL OF SKIN TAGS Routine 07/10/2024 2:56 PM HOOP PUNCH AND COILER OPERATOR AK (actinic keratosis) Skin tag HEPATITIS C ANTIBODY Routine 07/19/2023 10:20 AM HOOP PUNCH AND COILER OPERATOR Essential hypertension, benign Pure hypercholesterolem ia Vitamin D deficiency Need for hepatitis C screening test Screening for prostate cancer Screening for endocrine, metabolic and immunity disorder Screening for lipid disorders from Last 3 Months or Most Recently Relevant to Health Maintenance Results * CT CHEST WO CON (09/08/2024 2:21 PM HOOP PUNCH AND COILER OPERATOR) Anatomical Region Laterality Modality Chest Computed Tomogra phy 09/13/2024 4:29 PM HOOP PUNCH AND COILER OPERATOR Impressions 09/13/2024 4:34 PM HOOP PUNCH AND COILER OPERATOR IMPRESSION: 1. 11 mm groundglass nodule in the left lung apex and the patchy groundglass opacities seen on 03/08/2024 have resolved. No specific follow-up necessary. 2. Coronary calcifications. 3. Bilateral nonobstructing renal calculi. Referred By: GUIDO CARRILLO Interpreted By: Jared Mccauley MD, 09/13/2024 4:29 PM Narrative 09/13/2024 4:34 PM HOOP PUNCH AND COILER OPERATOR [address] [address] EXAMINATION: CT CHEST WITHOUT CONTRAST EXAM DATE/TIME: [...] Procedure Note Jared Mccauley MD - 09/13/[address] [address] EXAMINATION: CT CHEST WITHOUT CONTRAST EXAM DATE/TIME: [...] lt * TSH W/REFLEX (09/05/2024 8:18 AM HOOP PUNCH AND COILER OPERATOR) TSH 1.894 0.358 - 3.740 uIU/ML 09/05/2024 3:44 PM HOOP PUNCH AND COILER OPERATOR [facility] 09/05/2024 8:18 AM HOOP PUNCH AND COILER OPERATOR Inderjit Narayan DO LABORATORY Final Re sult [facility] [address] [place] [address], * HEMOGLOBIN, GLYCOSYLATED (09/05/2024 8:18 AM HOOP PUNCH AND COILER OPERATOR) HGB A1C 5.3 4.5 - 6.2 % 09/05/2024 4:43 PM HOOP PUNCH AND COILER OPERATOR [facility] ESTIMATED AVG GLUCOSE 105 74 - 106 MG/DL 09/05/2024 4:43 PM HOOP PUNCH AND COILER OPERATOR [facility] 09/05/2024 8:18 AM HOOP PUNCH AND COILER OPERATOR Inderjit Nayeli Narayan LABORATORY Final Re sult Performing Organization Address [facility] Co de Phone Number [facility] [address] [place] [address], [place] [phone] * PROSTATE SPECIFIC ANTIGEN,SCREENING (09/05/2024 8:18 AM HOOP PUNCH AND COILER OPERATOR) PSA 0.70 <4.00 NG/ML 09/05/2024 3:37 PM HOOP PUNCH AND COILER OPERATOR [facility] Comment: ASSAY PERFORMED BY [employer] IMMUNOASSAY METHODOLOGY USING [employer]. PATIENT RESULTS DETERMINED BY ASSAYS FROM DIFFERENT MANUFACTURERS AND/OR BY DIFFERENT METHODS MAY NOT BE COMPARABLE. 09/05/2024 8:18 AM HOOP PUNCH AND COILER OPERATOR Inderjit Narayan LABORATORY Final Re sult Performing Organization Address [facility] Co de Phone Number [facility] [address] [place] [address] [place] [address], [place] [phone] * (ABNORMAL) COMPREHENSIVE METABOLIC PANEL (09/05/2024 8:18 AM HOOP PUNCH AND COILER OPERATOR) SODIUM S/P/B 142 136 - 145 MMOL/L 09/05/2024 3:44 PM HOOP PUNCH AND COILER OPERATOR [facility] POTASSIUM S/P/B 4.8 3.5 - 5.1 MMOL/L 09/05/2024 3:44 PM HOOP PUNCH AND COILER OPERATOR [facility] CHLORIDE S/P/B 105 98 - 107 MMOL/L 09/05/2024 3:44 PM HOOP PUNCH AND COILER OPERATOR [facility] CO2 28.1 21 - 32 MMOL/L 09/05/2024 3:44 PM HOOP PUNCH AND COILER OPERATOR [facility] GLUCOSE 105(H) 70 - 99 MG/DL 09/05/2024 3:44 PM HOOP PUNCH AND COILER OPERATOR [facility] BUN 13 7 - 18 MG/DL 09/05/2024 3:[address] [facility] CREATININE S/P/B 0.97 0.70 - 1.30 MG/DL 09/05/2024 3:[address] [facility] CALCIUM S/P/B 9.1 8.4 - 10.5 MG/DL 09/05/2024 3:44 PM [facility] [place] BILIRUBIN TOTAL S/P/B 0.7 0.2 - 1.0 MG/DL 09/05/2024 3:44 PM [facility] [place] ALKALINE PHOSPHATASE S/P/B 89 45 - 115 U/L 09/05/2024 3:44 PM [facility] [place] AST 28 15 - 37 U/L 09/05/2024 3:44 PM [facility] [place] ALT 44 16 - 63 U/L 09/05/2024 3:[address] [facility] TOTAL PROTEIN S/P/B 7.1 6.4 - 8.2 G/DL 09/05/2024 3:[address] [facility] ALBUMIN S/P/B 3.7 3.4 - 5.0 G/DL 09/05/2024 3:[address] [facility] ANION GAP 8.9 5 - 15 MMOL/L 09/05/2024 3:[address] [facility] Comment:REFERENCE RANGE NOT ESTABLISHED OSMOLALITY (CALC) 294 MOSM/KG 025 3:44 PM [facility] Comment:REFERENCE RANGE NOT ESTABLISHED GFR ESTIMATE 83(L) >90 ML/MIN/1. 73 M2 09/05/2024 3:[address] [facility] GFR NOTES GFR REFERENCE S: 09/05/2024 3:44 PM [facility] Comment: THE ESTIMATED GFR IS [...] FAILURE: <15 ml/min/1.73 m2 09/05/2024 8:18 AM HOOP PUNCH AND COILER OPERATOR Inderjit Narayan DO LABORATORY Final Re sult [facility] [address] [place] [address], * LIPID PANEL (09/05/2024 8:18 AM HOOP PUNCH AND COILER OPERATOR) CHOLESTEROL 140 <200 MG/DL 09/05/2024 3:[address] [facility] TRIGLYCERIDES 106 <150 MG/DL 09/05/2024 3:44 PM HOOP PUNCH AND COILER OPERATOR [facility] HDL 49 >40 MG/DL 09/05/2024 3:[address] [facility] LDL-C 70 <100 MG/DL 09/05/2024 3:44 PM HOOP PUNCH AND COILER OPERATOR [facility] VLDL CALCULATION 21 5 - 28 MG/DL 09/05/2024 3:[address] [facility] CHOL/HDL RATIO 2.9 0.0 - 4.0 09/05/2024 3:44 PM HOOP PUNCH AND COILER OPERATOR [facility] LDL/HDL 1.4 0.41 - 2.13 09/05/2024 3:44 PM HOOP PUNCH AND COILER OPERATOR [facility] NON HDL CHOLESTEROL 91 <140 MG/DL 09/05/2024 3:44 PM HOOP PUNCH AND COILER OPERATOR [facility] 09/05/2024 8:18 AM HOOP PUNCH AND COILER OPERATOR Inderjit Narayan DO LABORATORY Final Re sult [facility] [address], [address] [place] [address], * (ABNORMAL) CBC W/DIFF AUTOMATED (09/05/2024 8:18 AM HOOP PUNCH AND COILER OPERATOR) WBC 6.81 4.00 - 10.80 x10'3/uL 09/05/2024 3:45 PM HOOP PUNCH AND COILER OPERATOR [facility] RBC 4.88 4.50 - 6.10 x10'6/uL 09/05/2024 3:45 PM [facility] HGB 15.1 13.0 - 18.0 G/DL 09/05/2024 3:[address] [facility] HCT 45.3 37.0 - 52.0 % 09/05/2024 3:[address] [facility] MCV 92.8 78.0 - 100.0 FL 09/05/2024 3:[address] [facility] MCH 30.9 27.0 - 31.0 PG 09/05/2024 3:45 PM [facility] MCHC 33.3 33.0 - 36.0 G/DL 09/05/2024 3:[address] [facility] RDW 12.2 11.5 - 14.5 % 09/05/2024 3:[address] [facility] PLT 225 150 - 350 x10'3/uL 09/05/2024 3:[address] [facility] MPV 10.3 7.4 - 10.4 FL 09/05/2024 3:[address] [facility] DIFFERENTIAL TYPE AUTOMATED DIFFERENTIAL 09/05/2024 3:[address] [facility] NEUTROPHILS % 52.7 % 09/05/2024 3:[address] [facility] LYMPHOCYTES % 30.0 % 09/05/2024 3:45 PM HOOP PUNCH AND COILER OPERATOR [facility] MONOCYTES % 10.6 % 09/05/2024 3:45 PM HOOP PUNCH AND COILER OPERATOR [facility] EOSINOPHILS % 6.0 % 09/05/2024 3:45 PM HOOP PUNCH AND COILER OPERATOR [facility] BASOPHILS % 0.7 % 09/05/2024 3:45 PM HOOP PUNCH AND COILER OPERATOR [facility] IMMATURE GRANS % 0.0 % 09/05/2024 3:45 PM HOOP PUNCH AND COILER OPERATOR [facility] ABS. NEUTROPHILS 3.59 1.60 - 8.30 x10'3/uL 09/05/2024 3:45 PM HOOP PUNCH AND COILER OPERATOR [facility] ABS. LYMPHOCYTES 2.04 0.80 - 4.70 x10'3/uL 09/05/2024 3:45 PM HOOP PUNCH AND COILER OPERATOR [facility] ABS. MONOCYTES 0.72 0.00 - 1.50 x10'3/uL 09/05/2024 3:45 PM HOOP PUNCH AND COILER OPERATOR [facility] ABS. EOSINOPHILS 0.41(H) 0.00 - 0.40 x10'3/uL 09/05/2024 3:45 PM HOOP PUNCH AND COILER OPERATOR [facility] ABS. BASOPHILS 0.05 0.00 - 0.20 x10'3/uL 09/05/2024 3:45 PM HOOP PUNCH AND COILER OPERATOR [facility] ABS. IMMATURE GRANULOCYTES 0.00 0.00 - 0.03 x10'3/uL 09/05/2024 3:45 PM HOOP PUNCH AND COILER OPERATOR [facility] 09/05/2024 8:18 AM HOOP PUNCH AND COILER OPERATOR us Inderjit Narayan DO LABORATORY Final Re sult [facility] [address] [place] [address], * VITAMIN D, 25 OH (09/05/2024 8:18 AM HOOP PUNCH AND COILER OPERATOR) Pathologist [facility] VITAMIN D 25 HYDROXY TOTAL S/P/B 61.4 30 - 100 NG/ML 09/05/2024 3:44 PM HOOP PUNCH AND COILER OPERATOR [facility] Comment: DEFICIENT <20 INSUFFICIENT 20-30 SUFFICIENT 30-100 09/05/2024 8:18 AM HOOP PUNCH AND COILER OPERATOR Inderjit Narayan DO LABORATORY Final Re sult Performing Organization Address [facility] Co de Phone Number [facility] [address] [place] [address], [place] [phone] * URIC ACID BLOOD (09/05/2024 8:18 AM HOOP PUNCH AND COILER OPERATOR) [facility] URIC ACID 5.1 3.5 - 7.2 MG/DL 09/05/2024 3:36 PM HOOP PUNCH AND COILER OPERATOR [facility] 09/05/2024 8:18 AM HOOP PUNCH AND COILER OPERATOR Inderjit Narayan DO LABORATORY Final Re sult Performing Organization Address [facility] de Phone Number [address] [address], [place] [phone] * (ABNORMAL) OUTSIDE LAB COVID-19 (08/12/2024) Pathologist [facility] CORONAVIRUS SARS COV 2 PCR (RESP) DETECTED( Crit) NOT DETECTED [facility] 08/12/2024 [facility] Scanned SCANNING Final Resu lt Performing Organization Address [facility] Co de Phone Number [facility] * IMAGE GENERIC (08/12/2024) Anatomical Region Laterality Modality Other 08/12/2024 [facility] Scanned SCANNING Final Resu lt * Skin Tag Removal (07/10/2024 2:56 PM HOOP PUNCH AND COILER OPERATOR) Narrative Inderjit Narayan DO - 07/10/2024 2:56 PM HOOP PUNCH AND COILER OPERATOR Inderjit Narayan DO 07/10/2024 3:05 PM Skin [...] * HEPATITIS C ANTIBODY (07/19/2023 10:20 AM HOOP PUNCH AND COILER OPERATOR) HEPATITIS C AB NON-REACTI VE NON-REACT ELDER 07/19/2023 6:22 PM HOOP PUNCH AND COILER OPERATOR [facility] Comment: ANTIBODIES TO HCV NOT DETECTED. DOES NOT EXCLUDE THE POSSIBILITY OF EXPOSURE TO HCV. 07/19/2023 10:2 0 AM HOOP PUNCH AND COILER OPERATOR Inderjit Narayan DO LABORATORY Final Re sult [facility] [address] [place] [address], [phone] from Last 3 Months or Most Recently Relevant to Health [place] [address] MEDICARE [facility] Care Teams Lead Software Qa Engineer Relationship Specialty Start Date End Date Inderjit Narayan DO [address] [place] [id number] PCP - General 12/19/22
--- OUTSIDE RECORDS SUMMARY | 2024-09-14 13:00 | XMS_ITS | Encounter Summary ---
Author Organization [facility] Address [address] [place] [address] Care Team Providers Care Field Agronomist Name Role Phone Inderjit Narayan DO Primary Care Provider + Encounter Details Date Type Department Care Team (Late st Contact Info) Description 09/22/2002 Outpatient Historical [facility] Medicine - [facility] [address] [facility] [address] [place] [address] Tayler Viera MD [address] [place] [address] Social History Tobacco Use Types Packs/Day Years Used Date Smoking Tobacco: Never Assessed Sex and Gender Information Value Date Recorded Sex Assigned at Not on file Legal Sex Male 4:12 AM IRRIGATION FOREMAN Gender Identity Not on file Sexual Orientation Not on file documented as of this encounter Plan of Treatment Not on file documented as of this encounter Visit Diagnoses Not on filedocumented in this encounter Care Teams Field Agronomist Relationship Specialty Start Date End Date Inderjit Narayan DO [address] [place] [phone] PCP - General Family Practice 04/09/23 08/29/23 documented as of this encounter
--- OUTSIDE RECORDS SUMMARY | 2024-09-14 13:00 | XMS_ITS | Encounter Summary ---
Author Organization [facility] Address [address] [place] [address] Care Team Providers Care Project Structural Engineer Name Role Phone Inderjit Narayan DO Primary Care Provider + Encounter Details Date Type Department Care Team (Late st Contact Info) Description 05/11/2003 Outpatient Historical [facility] Medicine - [facility] [address] [facility] [address] [place] [address] Tayler Viera MD [address] [place] [address] Social History Tobacco Use Types Packs/Day Years Used Date Smoking Tobacco: Never Assessed Sex and Gender Information Value Date Recorded Sex Assigned at Not on file Legal Sex Male 4:12 AM DIRECTOR OF INCOME TAX Gender Identity Not on file Sexual Orientation Not on file documented as of this encounter Plan of Treatment Not on file documented as of this encounter Visit Diagnoses Not on filedocumented in this encounter Care Teams Project Structural Engineer Relationship Specialty Start Date End Date Inderjit Narayan DO [address] [place] [phone] PCP - General Family Practice 04/09/23 08/29/23 documented as of this encounter
--- OUTSIDE RECORDS SUMMARY | 2024-09-14 13:00 | XMS_ITS | Encounter Summary ---
Author Organization [facility] Address [address] [place] [address] Care Team Providers Care Fixture Repairer Fabricator Name Role Phone Inderjit Narayan DO Primary Care Provider + Encounter Details Date Type Department Care Team (Late st Contact Info) Description 05/04/2003 Outpatient Historical [facility] Medicine - [facility] [address] [facility] [address] [place] [address] Tayler Viera MD [address] [place] [address] Social History Tobacco Use Types Packs/Day Years Used Date Smoking Tobacco: Never Assessed Sex and Gender Information Value Date Recorded Sex Assigned at Not on file Legal Sex Male 4:12 AM EMERY GRINDER Gender Identity Not on file Sexual Orientation Not on file documented as of this encounter Plan of Treatment Not on file documented as of this encounter Visit Diagnoses Not on filedocumented in this encounter Care Teams Fixture Repairer Fabricator Relationship Specialty Start Date End Date Inderjit Narayan DO [address] [place] [phone] PCP - General Family Practice 04/09/23 08/29/23 documented as of this encounter
--- OUTSIDE RECORDS SUMMARY | 2024-09-14 13:00 | XMS_ITS | Encounter Summary ---
Author Organization [facility] Address [address] [place] [address] Care Team Providers Care Fact Checker Name Role Phone Inderjit Narayan DO Primary Care Provider + Encounter Details Date Type Department Care Team (Late st Contact Info) Description 03/07/2002 Outpatient Historical [facility] Medicine - [facility] [address] [facility] [address] [place] [address] Dimitry Powell MD [address] [facility] [address] [place] [address] Social History Tobacco Use Types Packs/Day Years Used Date Smoking Tobacco: Never Assessed Sex and Gender Information Value Date Recorded Sex Assigned at Not on file Legal Sex Male 4:12 AM VETERINARY VIROLOGIST Gender Identity Not on file Sexual Orientation Not on file documented as of this encounter Plan of Treatment Not on file documented as of this encounter Visit Diagnoses Not on filedocumented in this encounter Care Teams Fact Checker Relationship Specialty Start Date End Date Inderjit Narayan DO [address] [place] [phone] PCP - General Family Practice 04/09/23 08/29/23 documented as of this encounter
--- OUTSIDE RECORDS SUMMARY | 2024-09-14 13:00 | XMS_ITS | Encounter Summary ---
Author Organization [facility] Address [address] [place] [address] Care Team Providers Care Emergency Room Nurse Name Role Phone Inderjit Narayan DO Primary Care Provider + Encounter Details Date Type Department Care Team (Late st Contact Info) Description 11/21/2002 Outpatient Historical [facility] Medicine - [facility] [address] [facility] [address] [place] [address] Tayler Viera MD [address] [place] [address] Social History Tobacco Use Types Packs/Day Years Used Date Smoking Tobacco: Never Assessed Sex and Gender Information Value Date Recorded Sex Assigned at Not on file Legal Sex Male 4:12 AM KITCHEN AIDE Gender Identity Not on file Sexual Orientation Not on file documented as of this encounter Plan of Treatment Not on file documented as of this encounter Visit Diagnoses Not on filedocumented in this encounter Care Teams Emergency Room Nurse Relationship Specialty Start Date End Date Inderjit Narayan DO [address] [place] [phone] PCP - General Family Practice 04/09/23 08/29/23 documented as of this encounter
--- OUTSIDE RECORDS SUMMARY | 2024-09-14 13:00 | XMS_ITS | Encounter Summary ---
Author Organization [facility] Address [address] [place] [address] Care Team Providers Care Environmental Management Specialist Name Role Phone Inderjit Narayan DO Primary Care Provider + Encounter Details Date Type Department Care Team (Late st Contact Info) Description 01/31/2002 Outpatient Historical [facility] Medicine - [facility] [address] [facility] [address] [place] [address] Tayler Viera MD [address] [place] [address] Social History Tobacco Use Types Packs/Day Years Used Date Smoking Tobacco: Never Assessed Sex and Gender Information Value Date Recorded Sex Assigned at Not on file Legal Sex Male 4:12 AM STUDY LEAD Gender Identity Not on file Sexual Orientation Not on file documented as of this encounter Plan of Treatment Not on file documented as of this encounter Visit Diagnoses Not on filedocumented in this encounter Care Teams Environmental Management Specialist Relationship Specialty Start Date End Date Inderjit Narayan DO [address] [place] [phone] PCP - General Family Practice 04/09/23 08/29/23 documented as of this encounter
--- OUTSIDE RECORDS SUMMARY | 2024-09-14 13:00 | XMS_ITS | Encounter Summary ---
Author Organization [facility] Address [address] [place] [address] Care Team Providers Care 3Rd Grade Reading Teacher Name Role Phone Inderjit Narayan DO Primary Care Provider + Encounter Details Date Type Department Care Team (Late st Contact Info) Description 06/27/2002 Outpatient Historical [facility] Medicine - [facility] [address] [facility] [address] [place] [address] Tayler Viera MD [address] [place] [address] Social History Tobacco Use Types Packs/Day Years Used Date Smoking Tobacco: Never Assessed Sex and Gender Information Value Date Recorded Sex Assigned at Not on file Legal Sex Male 4:12 AM SHIP KEEPER Gender Identity Not on file Sexual Orientation Not on file documented as of this encounter Plan of Treatment Not on file documented as of this encounter Visit Diagnoses Not on filedocumented in this encounter Care Teams 3Rd Grade Reading Teacher Relationship Specialty Start Date End Date Inderjit Narayan DO [address] [place] [phone] PCP - General Family Practice 04/09/23 08/29/23 documented as of this encounter
--- OUTSIDE RECORDS SUMMARY | 2024-09-14 13:00 | XMS_ITS | Encounter Summary ---
Author Organization [facility] Address [address] [place] [address] Care Team Providers Care Resident Associate Name Role Phone Inderjit Narayan DO Primary Care Provider + Encounter Details Date Type Department Care Team (Late st Contact Info) Description 04/05/2002 Outpatient Historical [facility] Medicine - [facility] [address] [facility] [address] [place] [address] Tayler Viera MD [address] [place] [address] Social History Tobacco Use Types Packs/Day Years Used Date Smoking Tobacco: Never Assessed Sex and Gender Information Value Date Recorded Sex Assigned at Not on file 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
[2024-09-14 13:11] LABS: Alanine Aminotransferase 58 U/L (6-50); Albumin Level 3.7 g/dL (3.5-5.1); Alkaline Phosphatase 121 U/L (38-126); Anion Gap 8 mmol/L (4-12); Aspartate Amino Transferase 32 U/L (17-59); Bilirubin,Total 1.3 mg/dL (0.2-1.3); Blood Urea Nitrogen 21 mg/dL (9-20); Carbon Dioxide 27 mmol/L (22-30); Chloride 99 mmol/L (98-107); Estimated CRCL calculation 49 ml/min; Estimated Glomerular Filt Rate 54; Glucose 104 mg/dL (65-110); Potassium 4.5 mmol/L (3.4-5.0); Sodium 134 mmol/L (137-145)
[2024-09-14 13:13] LABS: INR 1.1; Prothrombin Time 14.6 Seconds (11.1-14.7)
[2024-09-14 13:23] LABS: NT Pro B Type Natriuretic Pept 248 pg/mL (19.9-100); Troponin I < 0.012 ng/mL (0.000-0.034)
--- NOTE | 2024-09-14 14:10 | ED.GENADULT ---
HPI - General Adult General Chief complaint: Recheck/Abnormal Lab/Rx Stated complaint: oxygen level is 82 Time Seen by Provider: 09/14/24 12:37 History of Present Illness HPI narrative: Patient is 72-year-old gentleman presents emergency department with chief complaint of shortness of breath with exertion. Patient reports that he was diagnosed with COVID and then had the flu and now is having increasing shortness of breath over the last few days patient has noted that his oxygen saturation was in the 70s whenever he was ambulating once the patient sits down is not moving around he has recovery from his difficulty breathing Related Data Home Medications ?Medication ?Instructions ?Recorded ?Confirmed ?Last Taken ?Type losartan 50 mg tablet 50 mg PO DAILY 06/28/22 01/02/24 06/28/22 07:00 History montelukast 10 mg tablet 10 mg PO HS 06/28/22 01/02/24 06/27/22 21:00 History simvastatin 40 mg tablet 40 mg PO DAILY 06/28/22 01/02/24 06/28/22 07:00 History tamsulosin 0.4 mg capsule 0.4 mg PO DAILY 01/02/24 01/02/24 Unknown History Allergies Allergy/AdvReac Type Severity Reaction Status Date / Time prednisone Allergy Rash Verified 09/14/24 11:55 Review of Systems Review of Systems: A 10 system review of systems was completed on the patient and is negative except for what is stated in the HPI. Nursing and ancillary documentation was reviewed. 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 Smoking status: Never smoker Alcohol intake: never Substance use: never Lack of Transportation: No Lack of Food: Never True Current Housing: I Have Housing Concerned About Future Housing: No Difficulty Paying Gas/Electric Bills: No Difficulty Paying for Meds: No Currently Unemployed: No Education: Bachelor's Degree Difficulty w/ Childcare or Family Care: No Spiritual care concerns: No Exam Narrative: GENERAL: Well-appearing, well-nourished, and in no acute distress. HEAD: Normocephalic, atraumatic. EYES: PERRLA and EOMI. ENT: Nares clear, no rhinorrhea or epistaxis. Mucous membranes moist. NECK: Supple. CHEST: Clear to auscultation. No respiratory distress. HEART: Regular rate and rhythm. No murmur heard. Normal peripheral pulses. ABDOMEN: Soft, nontender, nondistended, normal active bowel sounds. EXTREMITIES: Normal range of motion. No edema. SKIN: Warm, dry, no rash. NEURO: No focal deficits. Alert and oriented x3. PSYCH: Normal mood and affect. Course Vital Signs Vital signs: Vital Signs Temperature 36.4 C 09/14/24 11:44 Pulse Rate 74 09/14/24 11:44 Respiratory Rate 16 09/14/24 11:44 Blood Pressure 98/53 L 09/14/24 11:44 Pulse Oximetry 100 09/14/24 11:44 Oxygen Delivery Room Air 09/14/24 11:44 Temperature 36.4 C 09/14/24 11:44 Pulse Rate 72 09/14/24 14:21 Respiratory Rate 19 09/14/24 14:21 Blood Pressure 135/66 09/14/24 13:38 Pulse Oximetry 100 09/14/24 14:21 Oxygen Delivery Room Air 09/14/24 12:23 Medical Decision Making [facility] Narrative Medical decision making narrative: Differential diagnosis includes pulmonary embolism, COVID-19, upper respiratory infection, pneumonia Chest x-ray showed no focal infiltrate CTA chest showed no evidence of pulmonary embolism Patient is positive for COVID BNP was 248 troponin was negative Vital Signs Vital Signs: Vital Signs Temperature 36.4 C 09/14/24 11:44 Pulse Rate 74 09/14/24 11:44 Respiratory Rate 16 09/14/24 11:44 Blood Pressure 98/53 L 09/14/24 11:44 Pulse Oximetry 100 09/14/24 11:44 Oxygen Delivery Room Air 09/14/24 11:44 Temperature 36.4 C 09/14/24 11:44 Pulse Rate 72 09/14/24 14:21 Respiratory Rate 19 09/14/24 14:21 Blood Pressure 135/66 09/14/24 13:38 Pulse Oximetry 100 09/14/24 14:21 Oxygen Delivery Room Air 09/14/24 12:23 Lab Data 09/14/24 12:17 09/14/24 12:56 Labs: Lab Results 09/14/24 09/14/24 09/14/24 Range/Units 12:17 12:56 14:37 WBC 13.7 H (4.5-10.0) K/mm3 RBC 4.95 (4.6-6.20) M/mm3 Hgb 15.4 (14.0-18.0) g/dL Hct 46.8 (42.0-52.0) % MCV 94.5 (80-100) fl MCH 31.1 (26-34) pg MCHC 32.9 (32-36) g/dl RDW 12.7 (11.5-14.5) % Plt Count 266 (150-375) k/mm3 MPV 9.8 (7.4-10.4) fl Immature Gran % (Auto) 0.7 H (0-0.5) % Neut % (Auto) 74.5 H (45.5-73.1) % Lymph % (Auto) 12.6 L (18.3-44.2) % [place] % (Auto) 11.1 H (2.6-8.5) % Eos % (Auto) 0.5 (0-4.4) % Baso % (Auto) 0.6 (0.2-1.2) % Lymph # (Auto) 1.72 (0.9-3.2) K/mm3 [place] # (Auto) 1.5 H (0.1-0.6) K/mm3 Eos # (Auto) 0.1 (0-0.3) K/mm3 Baso # (Auto) 0.1 (0.0-0.1) K/mm3 Abs Immat Gran (auto) 0.10 H (0.00-0.031) K/mm3 Absolute Neuts (auto) 10.2 H (1.3-6.7) K/mm3 Absolute Nucleated RBC 0.000 (0.0-0.012) K/mm3 Nucleated RBC % 0.0 (0.0-0.2) % PT 14.6 (11.1-14.7) Seconds INR 1.1 APTT 26.0 (22.3-36.8) Seconds Sodium 134 L (137-145) mmol/L Potassium 4.5 (3.4-5.0) mmol/L Chloride 99 (98-107) mmol/L Carbon Dioxide 27 (22-30) mmol/L Anion Gap 8 (4-12) mmol/L BUN 21 H (9-20) mg/dL Creatinine 1.31 H (0.7-1.3) mg/dL Estim Creat Clear Calc 49 ml/min Estimated GFR 54 L (59 - ) Glucose 104 (65-110) mg/dL Calcium 9.0 (8.4-10.2) mg/dL Total Bilirubin 1.3 (0.2-1.3) mg/dL AST 32 (17-59) U/L ALT 58 H (6-50) U/L Alkaline Phosphatase 121 (38-126) U/L Troponin I < 0.012 (0.000-0.034) ng/mL NT-Pro-B Natriuret Pep 248 H (19.9-100) pg/mL Total Protein 7.0 (6.3-8.2) g/dL Albumin 3.7 (3.5-5.1) g/dL Urine Color Yellow (Yellow) Urine Appearance Cloudy H (Clear) Urine pH 6.5 (5.0-9.0) Ur Specific [place] > 1.045 H (1.001-1.035) Urine Protein 1+ H (Negative) mg/dL Urine Glucose (UA) Negative (Negative) mg/dL Urine Ketones Negative (Negative) mg/dL Ur Blood (Man) 1+ H (Negative) Urine Nitrate Positive H (Negative) Urine Bilirubin Negative (Negative) Urine Urobilinogen 1.0 (<2.0) mg/dL Leukocyte Esterase Rfl 2+ H (Negative) STACEY/UL Urine RBC 6-10 H (0-2) /hpf Urine WBC >100 H (0-3) /hpf Ur Squamous Epith Cells None seen (Few) /hpf Urine Bacteria 4+ H /hpf Urine Casts 3-5 Influenza A (RT-PCR) Negative (Negative) Influenza B (RT-PCR) Negative (Negative) RSV (RT-PCR) Negative (Negative) SARS-CoV-2 RNA (RT-PCR) Positive A (Negative) Discharge Plan Discharge Clinical Impression: COVID, Acute UTI Patient Disposition: Home, Self-Care Condition: Stable Instructions: Antibiotic Form, Urinary Tract Infection in Men (ED), COVID-19 (Coronavirus Disease 2019) (ED) Patient Language: East Timorese Prescriptions: New cefdinir 300 mg capsule 300 mg PO Q12H 10 Days Qty: 20 0RF No Action azithromycin [Zithromax Z-Gerardo] 250 mg tablet See Rx Instructions .ROUTE .COMPLEX Qty: 6 0RF Rx Instructions: take 500 mg today (day 1), then 250 mg for 4 days (days 2-5) methylprednisolone [Medrol (Gerardo)] 4 mg tablets,dose pack See Rx Instructions .ROUTE .COMPLEX Qty: 21 0RF Rx Instructions: orally per package directions tamsulosin 0.4 mg capsule 0.4 mg PO DAILY simvastatin 40 mg tablet 40 mg PO DAILY losartan 50 mg tablet 50 mg PO DAILY montelukast 10 mg tablet 10 mg PO HS Follow-up/Referrals: UNKNOWN,DOCTOR [Primary Care Provider] - Time of Disposition: 15:28
[2024-09-14 14:51] LABS: Add Urine Microscopic? YES; Appearance Urine Cloudy (Clear); Bacteria Urine 4+ /hpf; Bilirubin Urine Negative (Negative); Blood Urine 1+ (Negative); Color Urine Yellow (Yellow); Glucose Urine UA Negative (Negative); Ketones Urine Negative (Negative); Leukocyte Esterase Ur 2+ LEU/UL (Negative); Nitrate Urine Positive (Negative); Protein Urine 1+ mg/dL (Negative); Specific Grav Ur > 1.045 (1.001-1.035); Squamous Epithelial Cell Urine None Seen /hpf (Few); WBC Urine >100 /hpf (0-3); pH Urine 6.5 (5.0-9.0)
== END 2024-09-14 16:06 | disposition home or self-care (01) ==
PROVIDERS: Emergency Provider Emergency Medicine
DX: U07.1 COVID-19 (principal); N39.0 Urinary tract infection, site not specified; I10 Essential (primary) hypertension; E78.5 Hyperlipidemia, unspecified; E66.3 Overweight; Z68.27 Body mass index [BMI] 27.0-27.9, adult; Z87.442 Personal history of urinary calculi; Z79.899 Other long term (current) drug therapy
CPT/HCPCS: 36415; 71045; 71275; 80053; 81001; 83880; 84484; 85025; 85610; 85730; 87077; 87086; 87186; 87637; 93005; 96365; 99284; J0696; Q9967

== ENCOUNTER 2024-10-06 16:33 | Outpatient (CLI) | payer MEDICARE, OTHER, SELFPAY | END 2024-10-06 16:34 | disposition home or self-care (01) | PROVIDERS: PCP Student in an Organized Health Care Education/Training Program | DX: N20.0 Calculus of kidney (principal) | CPT/HCPCS: 74018; 74176 ==

== ENCOUNTER 2024-12-09 21:12 | Emergency (ER) | payer MEDICARE, OTHER, SELFPAY ==
[2024-12-09] VITALS (14 sets, daily range): BP systolic 112–155; BP diastolic 70–84; PULSE 68–91; RESP 14–21; TEMP 36.4; O2SAT 96–99
--- NOTE | ~2024-12-09 | XR_ITS ---
XR chest 2V Ordering provider: Lazaro Deleon MD History: 74 years Male with . SOB . Comparison: September 14, 2024 FINDINGS: MEDIASTINUM: The cardiac silhouette is not enlarged. LUNGS: No infiltrates, effusions or pneumothorax. OTHER: No free air under the diaphragm. Degenerative the spine with dextroscoliosis. IMPRESSION: No acute cardiopulmonary pathology. Reviewed, dictated and finalized at location A.
--- OUTSIDE RECORDS SUMMARY | 2024-12-09 21:16 | XMS_ITS | Encounter Summary ---
Author Organization [facility] Address [address] [place] [address] Care Team Providers Care Chestnut Tanner Name Role Phone Inderjit Narayan DO Primary Care Provider + Encounter Details Date Type Department Care Team (Late st Contact Info) Description 09/24/2004 Outpatient Historical [facility] Medicine - [facility] [address] 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
--- OUTSIDE RECORDS SUMMARY | 2024-12-09 21:16 | XMS_ITS | Encounter Summary ---
Author Organization [facility] Address [address] [place] [address] Care Team Providers Care Ms Access Database Developer Name Role Phone Inderjit Narayan DO Primary Care Provider + Encounter Details Date Type Department Care Team (Late st Contact Info) Description 06/27/2002 Outpatient Historical [facility] Medicine - [facility] [address] [facility] [address] [place] [address] Tayler Viera MD [address] [place] [address] Social History Tobacco Use Types Packs/Day Years Used Date Smoking Tobacco: Never Assessed Sex and Gender Information Value Date Recorded Sex Assigned at Not on file 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
--- OUTSIDE RECORDS SUMMARY | 2024-12-09 21:16 | XMS_ITS | Encounter Summary ---
Author Organization [facility] Address [address] [place] [address] Care Team Providers Care Siebel Consultant Name Role Phone Inderjit Narayan DO Primary Care Provider + Encounter Details Date Type Department Care Team (Late st Contact Info) Description 06/30/1999 Outpatient Historical [facility] Medicine - [facility] [address] [facility] [address] [place] [address] Tayler Viera MD [address] [place] [address] Social History Tobacco Use Types Packs/Day Years Used Date Smoking Tobacco: Never Assessed Sex and Gender Information Value Date Recorded Sex Assigned at Not on file 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
--- OUTSIDE RECORDS SUMMARY | 2024-12-09 21:16 | XMS_ITS | Encounter Summary ---
Author Organization [facility] Address [facility] [place] [address] Care Team Providers Care Sawmill Production Worker Name Role Phone Inderjit Narayan DO Primary Care Provider + Reason for Referral * Procedure (Routine) - Pending Review Specialty Diagnoses / Procedures Referred By Georgie gallagher Referred To Contact Diagnoses Chronic cough Procedures Methacholine Challenge (07006) Methacholine Challenge (42608) Guido Rider DO 3 [facility] [address] [place] [id number] Phone: tel: fax: Referral ID Status Reason Start Date Expiration Date V isits Requested Visits Authorized [id number] Pending Review 06/09/2024 07/10/2025 1 1 Reason for Visit * Procedure (Routine) - Pending Review Specialty Diagnoses / Procedures Referred By Georgie gallagher Referred To Contact Diagnoses Chronic cough Procedures Methacholine Challenge (61408) Methacholine Challenge (55428) Guido Rider DO 3 [facility] [address] [place] [address] Phone: tel: fax: Referral ID Status Reason Start Date Expiration Date V isits Requested Visits Authorized [id number] Pending Review 06/09/2024 07/10/2025 1 1 Encounter Details Date Type Department Care Team (Latest Contact Info) Description 12/07/2024 2:48 PM CDT - 12/07/2024 11:59 PM CDT Hospital Encounter [facility] Respiratory Therapy [address] [facility] [address] Guido Rider DO [address] [facility] [address] [place] [address] Arrived Discharge Disposition: Home or Self Care (Routine Discharge) Social History Tobacco Use Types Packs/Day Years Used Date Smoking Tobacco: Never Passive Smoke Exposure: Never Smokeless Tobacco: Never Alcohol Use Standard Drinks/Week Comments Never 0 (1 standard drink = 0.6 oz pur e alcohol) PHQ-2 Answer Date Recorded Patient Health Questionnaire-2 Score 0 10/03/2024 Sex and Gender Information Value Date Recorded Sex Assigned at Male 09/08/2024 2:02 PM POWERHOUSE TENDER Legal Sex Male 10:29 AM POWERHOUSE TENDER Gender Identity Not on file Sexual [...] (CO Q 10 OR) Take by mouth. [facility] ALLERGY RELIEF-D 5-120 MG 12 hr tabletIndications:Allergi c rhinitis, unspecified seasonality, unspecified trigger TAKE 1 TABLET BY MOUTH TWICE A DAY 72 tablet 5 fluticasone propionate (FLONASE) 50 MCG/ACT nasal sprayIndications:Allergic rhinitis due to pollen, unspecified seasonality 1 spray by Nasal route daily. 16 g 6 4 HYDROcodone-acetaminophen (NORCO) 5-325 MG tabletIndications:Acute Pain < 7 Day Supply Take 1 tablet by mouth every 4 (four) hours as needed for Pain (max 6 tabs a day). Indications: Acute Pain < 7 Day Supply 21 tablet 4 losartan (COZAAR) 50 MG tabletIndications:Essenti al hypertension, benign TAKE 1 TABLET BY MOUTH EVERY DAY 90 tablet 1 5 magnesium oxide (MAG-OX) 250 MG tablet Take 1 tablet (250 mg total) by mouth daily. Multiple Vitamin (MULTIVITAMIN ADULT OR) omeprazole (PRILOSEC) 40 MG capsuleIndications:Subacu te cough TAKE 1 CAPSULE (40 MG TOTAL) BY MOUTH DAILY. 90 capsule 2 4 simvastatin (ZOCOR) 40 MG tabletIndications:Pure hypercholesterolemia TAKE 1 TABLET BY MOUTH LATE IN THE DAY 90 tablet 1 5 tamsulosin (FLOMAX) 0.4 MG Cap Take 1 capsule (0.4 mg total) by mouth nightly at bedtime. 3 Turmeric (QC TUMERIC COMPLEX OR) vitamin C (ASCORBIC ACID) 1000 MG tablet Take 1 tablet (1,000 mg total) by mouth daily. documented as of this encounter Procedure Notes * Guido Rider DO - 12/07/2024 3:00 PM CDTAssociated Order(s): BRONCHIAL CHALLENGE WITH METHACHOLINE METHACHOLINE CHALLENGE TEST Brendon Aldana 12/08/2024 INTERPRETATION Methacholine challenge test was performed with incremental doses of methacholine per protocol. There was a significant decrease noted in the FEV1. The PC 20 is 4 mg/ml. IMPRESSION 1. Positive Methacholine challenge test. Clinical correlation recommended. 2. Borderline bronchial hyper-responsiveness. Dr. Maycol Rider [facility] Pulmonary Medicine, documented in this encounter Plan of Treatment Upcoming Encounters Date Type Department Care Team (Late st Contact Info) Description 01/08/2025 2:20 PM CDT Office Visit [facility] Family & Internal Medicine - [place] [address] [place] [address] Inderjit Narayan, DO [address] [place] [address] 05/25/2025 8:00 AM CDT Office Visit [facility] Multispecialty Care - [address] [place] [address] Guido Rider [address] [facility] [address] [place] [address] documented as of this encounter Procedures Procedure Name Priority Date/Time Associated Diagnosis Comments BRONCHIAL CHALLENGE WITH METHACHOLINE Routine 12/07/2024 3:00 PM CDT Chronic cough documented in this encounter Results * Methacholine Challenge (74921) (12/07/2024 3:00 PM CDT) Narrative [facility] - 12/07/2024 3:00 PM CDT Guido Rider DO 12/08/2024 4:35 PM METHACHOLINE CHALLENGE TEST Brendon Aldana 12/08/2024 INTERPRETATION Methacholine challenge test was performed with incremental doses of methacholine per protocol. There was a significant decrease noted in the FEV1. The PC 20 is 4 mg/ml. IMPRESSION 1. Positive Methacholine challenge test. Clinical correlation recommended. 2. Borderline bronchial hyper-responsiveness. Dr. Maycol Rider [facility] Pulmonary Medicine, [place] Guido Rider DO PFT ORDERABLES Final Resu lt [facility] 3 [facility] [place] [address], [place] [phone] documented in this encounter Visit Diagnoses Diagnosis Chronic cough Cough documented in this encounter Administered Medications Inactive Administered Medications - up to 3 most recent administrations Medication Order MAR Action Action Date Dose Rate Site albuterol (PROVENTIL) (2.5 MG/3ML) 0.083% nebulizer solution 2.5 mg 2.5 mg, Nebulization, Once RT, 1 dose, On Jeanie 12/07/24 at 1515 Given 12/07/2024 3:47 PM CDT 2.5 mg methacholine (PROVOCHOLINE) 0.0625 mg/mL in sodium chloride 0.9 % inhalation solution 0.1875 mg 0.1875 mg (3 mL), Inhalation, Once, 1 dose, On Jeanie 12/07/24 at 1515 Given 12/07/2024 3:25 PM CDT 0.1875 mg methacholine (PROVOCHOLINE) 0.25 mg/mL in sodium chloride 0.9 % inhalation solution 0.75 mg 0.75 mg (3 mL), Inhalation, Once, 1 dose, On Jeanie 12/07/24 at 1515 Given 12/07/2024 3:31 PM CDT 0.75 mg methacholine (PROVOCHOLINE) 1 mg/mL in sodium chloride 0.9 % inhalation solution 3 mg 3 mg (3 mL), Inhalation, Once, 1 dose, On Jeanie 12/07/24 at 1515 Given 12/07/2024 3:36 PM CDT 3 mg methacholine (PROVOCHOLINE) 4 mg/mL in sodium chloride 0.9 % inhalation solution 12 mg 12 mg (3 mL), Inhalation, Once, 1 dose, On Jeanie 12/07/24 at 1515 Given 12/07/2024 3:42 PM CDT 12 mg sodium chloride 0.9 % nebulizer solution 3 mL 3 mL, Nebulization, Once, 1 dose, On Jeanie 12/07/24 at 1515 Given 12/07/2024 3:20 PM CDT 3 mLs documented in this encounter Care Teams Sawmill Production Worker Relationship Specialty Start Date End Date Inderjit Narayan DO [address] [place] [id number] PCP - General 12/19/22 documented as of this encounter
--- OUTSIDE RECORDS SUMMARY | 2024-12-09 21:16 | XMS_ITS | Encounter Summary ---
Author Organization [facility] Address [address] [place] [address] Care Team Providers Care Bill Adjuster Name Role Phone Inderjit Narayan DO Primary Care Provider + Encounter Details Date Type Department Care Team (Late st Contact Info) Description 04/05/2002 Outpatient Historical [facility] Medicine - [facility] [address] [facility] [address] [place] [address] Tayler Viera MD [address] [place] [address] Social History Tobacco Use Types Packs/Day Years Used Date Smoking Tobacco: Never Assessed Sex and Gender Information Value Date Recorded Sex Assigned at Not on file Legal Sex Male 4:12 AM PATIENT SUPPORT SPECIALIST Gender Identity Not on file Sexual Orientation Not on file documented as of this encounter Plan of Treatment Not on file documented as of this encounter Visit Diagnoses Not on filedocumented in this encounter Care Teams Bill Adjuster Relationship Specialty Start Date End Date Inderjit Narayan DO [address] [place] [phone] PCP - General Family Practice 04/09/23 08/29/23 documented as of this encounter
--- OUTSIDE RECORDS SUMMARY | 2024-12-09 21:16 | XMS_ITS | Encounter Summary ---
Author Organization [facility] Address [address] [place] [address] Care Team Providers Care Crop Grain Or Livestock Farmer Name Role Phone Inderjit Narayan DO Primary Care Provider + Encounter Details Date Type Department Care Team (Late st Contact Info) Description 05/02/2007 Outpatient Historical [facility] Medicine - [facility] [address] [facility] 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
--- OUTSIDE RECORDS SUMMARY | 2024-12-09 21:16 | XMS_ITS | Encounter Summary ---
Author Organization [facility] Address [address] [place] [address] Care Team Providers Care Assistant Speech Language Pathologist Name Role Phone Inderjit Narayan DO Primary Care Provider + Encounter Details Date Type Department Care Team (Late st Contact Info) Description 07/16/2000 Outpatient Historical [facility] Medicine - [facility] [address] [facility] [address] [place] [address] Tayler Viera MD [address] [place] [address] Social History Tobacco Use Types Packs/Day Years Used Date Smoking Tobacco: Never Assessed Sex and Gender Information Value Date Recorded Sex Assigned at Not on file Legal 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
--- OUTSIDE RECORDS SUMMARY | 2024-12-09 21:16 | XMS_ITS | Encounter Summary ---
Author Organization [facility] Address [address] [place] [address] Care Team Providers Care Manager Transfer Name Role Phone Inderjit Narayan DO Primary Care Provider + Encounter Details Date Type Department Care Team (Late st Contact Info) Description 05/04/2003 Outpatient Historical [facility] Medicine - [facility] [address] [facility] [address] [place] [address] Tayler Viera MD [address] [place] [address] Social History Tobacco Use Types Packs/Day Years Used Date Smoking Tobacco: Never Assessed Sex and Gender Information Value Date Recorded Sex Assigned at Not on file Legal 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
--- OUTSIDE RECORDS SUMMARY | 2024-12-09 21:16 | XMS_ITS | Encounter Summary ---
Author Organization [facility] Address [address] [place] [address] Care Team Providers Care Roller Operator Name Role Phone Inderjit Narayan DO Primary Care Provider + Encounter Details Date Type Department Care Team (Late st Contact Info) Description 04/29/2001 Outpatient Historical [facility] Medicine - [facility] [address] [facility] [address] [place] [address] Dimitry Powell MD [address] [facility] [address] [place] [address] Social History Tobacco Use Types Packs/Day Years Used Date Smoking Tobacco: Never Assessed Sex and Gender Information Value Date Recorded Sex Assigned at Not on file Legal 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
--- OUTSIDE RECORDS SUMMARY | 2024-12-09 21:16 | XMS_ITS | Clinical Summary ---
Author Organization [facility] Address [facility] [place] [address] Care Team Providers Care Welding Engineer Name Role Phone RomelcristopherInderjit Nayeli CHRISTIANSEN [...] 7 Day Supply 21 tablet 024 Active fluticasone propionate (FLONASE) 50 MCG/ACT [...] THE DAY 90 tablet 1 025 Active losartan (COZAAR) 50 MG tabletIndications:Essen tial hypertension, benign TAKE 1 TABLET BY MOUTH EVERY DAY 90 tablet 1 025 Active [facility] ALLERGY RELIEF-D 5-120 MG 12 hr tabletIndications:Aller gic rhinitis, unspecified seasonality, unspecified trigger TAKE 1 TABLET BY MOUTH TWICE A DAY 72 tablet 025 Active cetirizine-pseudoephedr ine ER ([facility] ALLERGY RELIEF D) 5mg-120mg 12 hr tabletIndications:Aller gic rhinitis, unspecified seasonality, unspecified trigger Take 1 tablet by mouth 2 (two) times daily. 72 tablet 2 024 2024 Discontinued Active Problems Problem Noted Date Diagnosed Date Upper respiratory infection 10/03/2024 Essential hypertension, benign 12/22/2022 Esophageal reflux 12/22/2022 [...] Encounters Date Type Department Care Team Description 12/08/2024 Results Follow-Up [facility] Pulmonology Specialty [address] [phone] Guido Rider DO Methacholine Challenge (24352) 12/07/2024 2:48 PM CDT - 12/07/2024 11:59 PM CDT Hospital Encounter [facility] Respiratory Therapy [address] [address] Guido Rider DO Arrived Discharge Disposition: Home or Self Care (Routine Discharge) 12/07/2024 Travel 10/23/2024 Telephone [facility] Pulmonology Specialty [address] [phone] Guido Rider DO Orders 10/06/2024 Scan [facility] Scanned, Doc [facility] CT (SCAN); Image (SCAN) 10/05/2024 Scan [facility] Scanned, [facility] 10/03/2024 5:07 PM PROFESSOR OF SPANISH - 10/03/2024 11:59 PM PROFESSOR OF SPANISH Hospital Encounter [facility] [address] [place] [address] Sarah Ivy, PA Discharge Disposition: Home or Self Care (Routine Discharge) 10/03/2024 2:00 PM PROFESSOR OF SPANISH Office Visit [facility] Family & Internal Medicine [address] [phone] Sarah Ivy, PA UTI (Took a/b but now having symptoms back-painful urination, pain to groin area, odor to urine-is to see urologist but feeling really bad) 10/03/2024 Travel 09/29/2024 Telephone [facility] Family & Internal Medicine [address] [phone] Inderjit Narayan, DO Advice 09/14/2024 Telephone [facility] Family & Internal Medicine - [address] [phone] Inderjit Narayan, DO Advice from Last 3 Months Immunizations Immunization Administration Dates Next Due Fluzone High Dose [...] 11/17/2018,08/09/2007 Family History Medical History Relation Comments [place] Father Leukemia Grandson Cancer Maternal Grandfather Heart Disease Mother Leukemia Mother Breast Cancer Sister Relation Status Comments Father Grandson Alive Maternal Grandfather Mother Sister Social History Tobacco Use Types Packs/Day Years Used Date Smoking Tobacco: Never Passive Smoke Exposure: Never Smokeless Tobacco: Never Tobacco Cessation:Counseling Given: No Alcohol Use Standard Drinks/Week Comments Never 0 (1 standard drink = 0.6 oz pur e alcohol) PHQ-2 Answer Date Recorded Patient Health Questionnaire-2 Score 0 10/03/2024 Sex and Gender Information Value Date Recorded Sex Assigned at Male 09/08/2024 2:02 PM PROFESSOR OF SPANISH Legal Sex Male 10:29 AM PROFESSOR OF SPANISH Gender Identity Not on file Sexual Orientation Not on file Occupation Industry Job Start Date Job End Date Not on file Not on file Not on file Not on file Last Filed Vital Signs Vital Sign Reading Time Taken Comments Blood Pressure 120/73 10/03/2024 2:00 PM PROFESSOR OF SPANISH Pulse 97 10/03/2024 2:00 PM PROFESSOR OF SPANISH Temperature 36.9 C (98.5 F) 10/03/2024 2:00 PM PROFESSOR OF SPANISH Respiratory Rate 20 10/03/2024 2:00 PM PROFESSOR OF SPANISH Oxygen Saturation 99% 10/03/2024 2:00 PM PROFESSOR OF SPANISH Inhaled Oxygen Concentration - - Weight 92.4 kg (203 lb 9.6 oz) 10/03/2024 2:00 P M PROFESSOR OF SPANISH Height 180.3 cm (5' 11 ) 10/03/2024 2:00 PM PROFESSOR OF SPANISH Body Mass Index 28.4 10/03/2024 2:00 PM PROFESSOR OF SPANISH Plan of Treatment Upcoming Encounters Date Type Department Care Team (Late st Contact Info) Description 01/08/2025 2:20 PM CDT Office Visit [facility] Family & Internal Medicine - [address] [phone] Inderjit Narayan, [address] [place] [phone] 05/25/2025 8:00 AM CDT Office Visit [facility] Multispecialty Care - [facility] [address] [place] [phone] Guido Rider [address] [place] [address] Health Maintenance Due Date Last Done Comments Annual Medicare Wellness Visit 2017 Zoster Vaccines (1 of 2) 03/30/2025 Pos tponed from 2002 (Patient Refused) RSV Immunization or 60+ Years (1 - 1-dose 75+ series) 2027 Colorectal Cancer Screening Colonoscopy (10 Years) 04/09/2028 DTaP, Tdap and Td Vaccines (3 - Td or Tdap) 11/17/2028 11/17/2018, 08/09/2007 COVID-19 Vaccine ( season) 2112 06/11/2023, 08/15/2022, 06/13/2021, Additional history exists Postponed from 04/09/2024 (Going to Outside Clinic) Pneumococcal Vaccine: 50+ Years Completed 11/17/2018, 10/14/2017 Hepatitis C Completed 07/19/2023 PHQ-2 (Physician [place]) Completed 10/03/2024 Meningococcal B Vaccine Aged Out No l [...] Routine 12/07/2024 3:[address] CDT Chronic cough CT GENERIC 10/06/2024 IMAGE GENERIC 10/06/2024 URINE BACTERIA CULTURE Routine 10/03/2024 2:13 PM PROFESSOR OF SPANISH Suspected UTI URINALYSIS AUTO DIP Routine 10/03/2024 Suspected UTI HEPATITIS C ANTIBODY Routine 07/19/2023 10:20 AM PROFESSOR OF SPANISH Essential hypertension, benign Pure hypercholesterolemi a Vitamin D deficiency Need for hepatitis C screening test Screening for prostate cancer Screening for endocrine, metabolic and immunity disorder Screening for lipid disorders from Last 3 Months or Most Recently Relevant to Health Maintenance Results * Methacholine Challenge (91699) (12/07/2024 3:00 PM CDT) Narrative [facility] - 12/07/2024 3:00 PM CDT Guido Rider DO 12/08/2024 4:35 PM METHACHOLINE CHALLENGE TEST Brendon Aldana 12/08/2024 INTERPRETATION Methacholine challenge test was performed with incremental doses of methacholine per protocol. There was a significant decrease noted in the FEV1. The PC 20 is 4 mg/ml. IMPRESSION 1. Positive Methacholine challenge test. Clinical correlation recommended. 2. Borderline bronchial hyper-responsiveness. Dr. Maycol Rider [facility] Medical Group Pulmonary Medicine, us Guido Rider DO PFT ORDERABLES Final Resu lt [facility] [address] [place] [address], * CT GENERIC (10/06/2024) Anatomical Region Laterality Modality Other 10/06/2024 [facility] Scanned SCANNING Final Resu lt * IMAGE GENERIC (10/06/2024) Anatomical Region Laterality Modality Other 10/06/2024 [facility] Scanned SCANNING Final Resu lt * (ABNORMAL) URINE BACTERIA CULTURE (10/03/2024 2:13 PM PROFESSOR OF SPANISH) SPEC DESCRIPTION URINE CLEAN CATCH 10/03/2024 5:07 PM PROFESSOR OF SPANISH [facility] SPECIAL REQUESTS NO SPECIAL REQUEST 10/03/2024 5:07 PM [facility] CULTURE RESULT >100,000 COL/ML ESCHERICHIA COLI (A) 10/05/2024 8:12 AM PROFESSOR OF SPANISH [facility] URINE SPECIMEN OBTAINED BY CLEAN CATCH PROCEDURE / Unknown 10/03/2024 2:13 PM PROFESSOR OF SPANISH 10/03/2024 5:07 PM PROFESSOR OF SPANISH Narrative Organism Antibiotic Method Susceptibility Escherichia coli AMPICILLIN LOLITA (VITEK) >=32: Resistant Escherichia coli AMPICILLIN/SULBACTAM LOLITA (VITEK) >=32: Resistant Escherichia coli CEFTRIAXONE LOLITA (VITEK) <=1: Sensitive Escherichia coli CEFTAZIDIME LOLITA (VITEK) <=1: Sensitive Escherichia coli CEFAZOLIN LOLITA (VITEK) <=4: Sensitive Escherichia coli ESBL LOLITA (VITEK) NEG: Sensitive Escherichia coli NITROFURANTOIN LOLITA (VITEK) <=16: Sensitive Escherichia coli GENTAMICIN LOLITA (VITEK) <=1: Sensitive Escherichia coli LEVOFLOXACIN LOLITA (VITEK) <=0.12: Sensitive Escherichia coli PIPRACIL/TAZO LOLITA (VITEK) <=4: Sensitive Escherichia coli TRIMETH-SULFAMETH. LOLITA (VITEK) <=20: Sensitive us Sarah SALAZAR MICROBIOLOGY - GENERAL ORDER DA Final Result [facility] [address] [place] [address], [place] [phone] [facility] [address] [place] [address], [place] [phone] * (ABNORMAL) URINALYSIS AUTO DIP (10/03/2024) COLOR (U) BROWN(A) YELLOW [id number], [place] TRAN[facility]AR[facility] CL[place]DY(A) CLEAR [id number] GLUCOSE (U) NEGATIVE NEGATIVE MG/DL [id number] BILIRUBIN (U) NEGATIVE NEGATIVE MG-[address] KETONES MG/DL (U) NEGATIVE NEGATIVE MG/DL [id number] SPECIFIC GRAVITY (U) 1.020 1.001 - 1.035 MG-[id number] BLOOD (U) SMALL (1+, Hemolyzed)(A ) NEGATIVE MG-[id number], [place] U PH 7.0 5.0 - 9.0 MG-[id number], [place] PROTEIN (U) 2+ (100)(A) NEGATIVE mg/dL MG-[id number] UROBILINOGEN 1.0 0.2 - 1.0 EU/dL = mg/dL MG-[id number] NITRITES POSITIVE(A) NEGATIVE MG/DL [id number] LEUKOCYTES (U) 2+ (MODERATE)(A ) NEGATIVE MG-[id number], [place] URINE SPECIMEN OBTAINED BY CLEAN CATCH PROCEDURE / Unknown 10/03/2024 us Sarah SALAZAR URINE ORDERABLES Final Resul t Performing Organization Address City/[facility]/ZIP Co de Phone Number [phone] [address] [place] [address] [place] [address], [place] [phone] * HEPATITIS C ANTIBODY (07/19/2023 10:20 AM PROFESSOR OF SPANISH) HEPATITIS C AB NON-REACTI VE NON-REACT ELDER 07/19/2023 6:22 PM PROFESSOR OF SPANISH [facility] Comment: ANTIBODIES TO HCV NOT DETECTED. DOES NOT EXCLUDE THE POSSIBILITY OF EXPOSURE TO HCV. 07/19/2023 10:2 0 AM PROFESSOR OF SPANISH Inderjit Narayan DO LABORATORY Final Re sult Performing Organization Address City/[facility] Co de Phone Number [facility] [address] [place] [address], [place] [phone] from Last 3 Months or Most Recently Relevant to Health [place] [address] MEDICARE [facility] Care Teams Welding Engineer Relationship Specialty Start Date End Date Inderjit Narayan DO [address] [place] [phone] PCP - General 12/19/22
--- OUTSIDE RECORDS SUMMARY | 2024-12-09 21:16 | XMS_ITS | Encounter Summary ---
Author Organization [facility] Address [address] [place] [address] Care Team Providers Care Assembler Bicycle Name Role Phone Inderjit Narayan DO Primary Care Provider + Encounter Details Date Type Department Care Team (Late st Contact Info) Description 10/29/2003 Outpatient Historical [facility] Medicine - [facility] [address] [facility] [address] [place] [address] Tayler Viera MD [address] [place] [address] Social History Tobacco Use Types Packs/Day Years Used Date Smoking Tobacco: Never Assessed Sex and Gender Information Value Date Recorded Sex Assigned at Not on file Legal 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
--- OUTSIDE RECORDS SUMMARY | 2024-12-09 21:16 | XMS_ITS | Encounter Summary ---
Author Organization [facility] Address [address] [place] [address] Care Team Providers Care Cardiac Monitor Technician Name Role Phone Inderjit Narayan DO Primary Care Provider + Encounter Details Date Type Department Care Team (Late st Contact Info) Description 07/21/1999 Outpatient Historical [facility] Medicine - [facility] [address] 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
--- OUTSIDE RECORDS SUMMARY | 2024-12-09 21:16 | XMS_ITS | Encounter Summary ---
Author Organization [facility] Address [facility]ly [facility] [place] [address] Care Team Providers Care Legal Consultant Name Role Phone Romelbentleyrickyjosseline Inderjit P DO Primary Care Provider + Encounter Details Date Type Department Care Team (Latest Contact Info) Description 12/08/2024 Results Follow-Up [facility] Pulmonology Specialty Clinic [address] [phone] Guido Rider DO [address] [place] [address] [place] [phone] Methacholine Challenge (66970) Social History Tobacco Use Types Packs/Day Years Used Date Smoking Tobacco: Never Passive Smoke Exposure: Never Smokeless Tobacco: Never Alcohol Use Standard Drinks/Week Comments Never 0 (1 standard drink = 0.6 oz pur e alcohol) PHQ-2 Answer Date Recorded Patient Health Questionnaire-2 Score 0 10/03/2024 Sex and Gender Information Value Date Recorded Sex Assigned at Male 09/08/2024 2:02 PM MATERIALS SUPERVISOR Legal Sex Male 10:29 AM MATERIALS SUPERVISOR Gender Identity Not on file Sexual Orientation Not on file Occupation Industry Job Start Date Job End Date Not on file Not on file Not on file Not on file documented as of this encounter Plan of Treatment Upcoming Encounters Date Type Department Care Team (Late st Contact Info) Description 01/08/2025 2:20 PM CDT Office Visit [facility] Family & Internal Medicine - [place] [address] [place] [address] Inderjit Narayan DO [address] [place] [address] 05/25/2025 8:00 AM CDT Office Visit [facility] Multispecialty Care - [facility] [address] [facility] [place] [address] Guido Rider DO [address] [place] [address] documented as of this encounter Visit Diagnoses Not on filedocumented in this encounter Care Teams Legal Consultant Relationship Specialty Start Date End Date Inderjit Narayan DO [address] [place] [address] PCP - General 12/19/22 documented as of this encounter
--- OUTSIDE RECORDS SUMMARY | 2024-12-09 21:16 | XMS_ITS | Encounter Summary ---
Author Organization [facility] Address [address] [place] [address] Care Team Providers Care Molding Line Operator Name Role Phone Inderjit Narayan DO Primary Care Provider + Encounter Details Date Type Department Care Team (Late st Contact Info) Description 06/10/2001 Outpatient Historical [facility] Medicine - [facility] [address] [facility] [address] [place] [address] Tayler Viera MD [address] [place] [address] Social History Tobacco Use Types Packs/Day Years Used Date Smoking Tobacco: Never Assessed Sex and Gender Information Value Date Recorded Sex Assigned at Not on file Legal 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
--- OUTSIDE RECORDS SUMMARY | 2024-12-09 21:16 | XMS_ITS | Encounter Summary ---
Author Organization [facility] Address [address] [place] [address] Care Team Providers Care Direct Support Staff Name Role Phone Inderjit Narayan DO Primary Care Provider + Encounter Details Date Type Department Care Team (Late st Contact Info) Description 11/20/2008 Outpatient Historical [facility] Cristela Gant MD [address] [place] [address] Blood in Stool Social History Tobacco Use Types Packs/Day Years Used Date Smoking Tobacco: Never Alcohol Use Standard Drinks/Week Comments No 0 (1 standard drink = 0.6 oz pur e alcohol) Sex and Gender Information Value Date Recorded Sex Assigned at Not on file Legal Sex Male 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
--- OUTSIDE RECORDS SUMMARY | 2024-12-09 21:16 | XMS_ITS | Encounter Summary ---
Author Organization [facility] Address [address] [place] [address] Care Team Providers Care Senior Game Developer Name Role Phone Inderjit Narayan DO Primary Care Provider + Encounter Details Date Type Department Care Team (Late st Contact Info) Description 09/22/[address] [facility] Medicine - [facility] [address] [facility] [address] [place] [address] Tayler Viera MD [address] [place] [address] Social History Tobacco Use Types Packs/Day Years Used Date Smoking Tobacco: Never Assessed Sex and Gender Information Value Date Recorded Sex Assigned at Not on file Legal Sex Male 4:12 AM SUPERVISOR PURIFICATION Gender Identity Not on file Sexual Orientation Not on file documented as of this encounter Plan of Treatment Not on file documented as of this encounter Visit Diagnoses Not on filedocumented in this encounter Care Teams Senior Game Developer Relationship Specialty Start Date End Date Inderjit Narayan DO [address] [place] [phone] PCP - General Family Practice 04/09/23 08/29/23 documented as of this encounter
--- OUTSIDE RECORDS SUMMARY | 2024-12-09 21:16 | XMS_ITS | Encounter Summary ---
Author Organization [facility] Address [address] [place] [address] Care Team Providers Care Senior Executive Assistant Name Role Phone Inderjit Narayan DO Primary Care Provider + Encounter Details Date Type Department Care Team (Late st Contact Info) Description 09/02/2007 Outpatient Historical [facility] Medicine - [facility] [address] [facility] [address] [place] [address] Tayler Viera MD [address] [place] [address] Social History Tobacco Use Types Packs/Day Years Used Date Smoking Tobacco: Never Assessed Sex and Gender Information Value Date Recorded Sex Assigned at Not on file Legal Sex Male 4:12 AM SIDE LASTER Gender Identity Not on file Sexual Orientation Not on file documented as of this encounter Plan of Treatment Not on file documented as of this encounter Visit Diagnoses Not on filedocumented in this encounter Care Teams Senior Executive Assistant Relationship Specialty Start Date End Date Inderjit Narayan DO [address] [place] [phone] PCP - General Family Practice 04/09/23 08/29/23 documented as of this encounter
--- OUTSIDE RECORDS SUMMARY | 2024-12-09 21:16 | XMS_ITS | Encounter Summary ---
Author Organization [facility] Address [address] [place] [address] Care Team Providers Care Hedis Coordinator Name Role Phone Inderjit Narayan DO Primary Care Provider + Encounter Details Date Type Department Care Team (Late st Contact Info) Description 09/17/2000 Outpatient Historical [facility] Medicine - [facility] [address] [facility] [address] [place] [address] Tayler Viera MD [address] [place] [address] Social History Tobacco Use Types Packs/Day Years Used Date Smoking Tobacco: Never Assessed Sex and Gender Information Value Date Recorded Sex Assigned at Not on file Legal Sex Male 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
--- OUTSIDE RECORDS SUMMARY | 2024-12-09 21:16 | XMS_ITS | Clinical Summary ---
Author Organization [email or web address] [facility] Address [address] [facility] [address] [place], [place] [address] Phone Care Team Providers Care Investigative Research Specialist Name Role Phone Unavailable Primary Care [...] by mouth. 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 Gender Identity Not on file Sexual [...] 05/15/2022, 07/12/2021, Additional history exists COVID-19 Vaccine (2023-2 5 season) 2024 06/13/2021, 10/18/2020, 09/20/2020 RSV VACCINE (60+ or ) (1 - 1-dose 75+ series) 2027 COLORECTAL SCREENING 04/09/2028 04/09/2023, 04/09/2023, 09/01/2019, Additional history exists Colorectal Cancer Screening 04/09/2028 DTAP/TDAP/TD VACCINES (3 - T d or Tdap) 11/17/2028 11/17/2018, 08/09/2007 PNEUMOCOCCAL VACCINE 50+ YEARS Completed 11/17/2018 , 10/14/2017 Medical Devices Implanted Type Area Siebel Solution Architect Device Identifier Shelf Expiration Date Model / Serial / Lot [place] Speedbridge W/ Biocmpst [place] [id number] - [id number] Implanted:Qty: 1 on 09/30/2018 by Nehemiah Castellano MD at [facility] [place] Right: Shoulder [employer] 08/08/2020 [id number] / / [id number] Procedures Procedure Name Priority Date/Time Associated Diagnosis Comments COLONOSCOPY REPORT 04/09/2023 10 :14 AM CDT OCCULT BLOOD IMMUNOASSAY, COLORECTAL SCREEN Routine 04/26/2019 9:19 PM CDT Screening for colon cancer from Last 3 Months or Most Recently Relevant to Health Maintenance Results * COLONOSCOPY REPORT (04/09/2023 10:14 AM CDT) Narrative Procedure Note Modesta Wise DO - 04/09/2023 10:14 AM CDT [facility] Endoscopy Patient Name: Brendon Aldana [...] Addenda: 0 Procedure Date: 04/09/2023 9:32:32 AM [address] [address] Modesta Wise DO GI PROCEDURE ORDERABLES Fin al Result * (ABNORMAL) OCCULT BLOOD IMMUNOASSAY, COLORECTAL SCREEN (04/26/2019 9:19 PM CDT) OCCULT BLOOD, STOOL Positive(A ) Negative 04/27/2019 11:28 PM CDT [facility] [employer] [facility] Stool STOOL SPECIMEN / Unknown Collection / Unknown 04/26/2019 9:19 PM CDT 04/27/2019 9:19 PM CDT Ciro Fernandez DO BODY FLUIDS AND STOOLS Final Res ult [facility] [employer] [facility] CLIA# [id number] [address] [place] [address] from Last 3 Months or Most Recently Relevant to Health [place] [address] MEDICARE PART A AND B [facility] A [id number] Advance Directives For more information, please contact: [phone] * Full Code (Latest Code Status on [...]
--- OUTSIDE RECORDS SUMMARY | 2024-12-09 21:16 | XMS_ITS | Encounter Summary ---
Author Organization [facility] Address [address] [place] [address] Care Team Providers Care Edge Polisher Name Role Phone Inderjit Narayan DO Primary Care Provider + Encounter Details Date Type Department Care Team (Late st Contact Info) Description 01/30/2002 Outpatient Historical [facility] Medicine - [facility] [address] [facility] [address] [place] [address] Tayler Viera MD [address] [place] [address] Social History Tobacco Use Types Packs/Day Years Used Date Smoking Tobacco: Never Assessed Sex and Gender Information Value Date Recorded Sex Assigned at Not on file 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
--- OUTSIDE RECORDS SUMMARY | 2024-12-09 21:16 | XMS_ITS | Encounter Summary ---
Author Organization [facility] Address [address] [place] [address] Care Team Providers Care Neurosurgical Nurse Name Role Phone Inderjit Narayan DO Primary Care Provider + Encounter Details Date Type Department Care Team (Late st Contact Info) Description 04/08/2004 Outpatient Historical [facility] Medicine - [facility] [address] [facility] [address] [place] [address] Tayler Viera MD [address] [place] [address] Social History Tobacco Use Types Packs/Day Years Used Date Smoking Tobacco: Never Assessed Sex and Gender Information Value Date Recorded Sex Assigned at Not on file 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
--- OUTSIDE RECORDS SUMMARY | 2024-12-09 21:16 | XMS_ITS | Encounter Summary ---
Author Organization [facility] Address 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 Gender Identity Not on file Sexual [...] AM CDT Narrative 11/07/2008 8:52 AM CDT [facility] [address] [place], [place] [address] Admit Date: 11/06/2008 BRENDON ALDANA Sex: M Admit Prov: KELLE GANT Date: 1950 Primary Care Prov: TABATHA DRAPER CMRN: [id number] Room: [facility] UNITN: [id number] IMAGING SERVICES Ordering Prov: N/A Accession Number: [id number] Interpretation CT HEAD WITHOUT CONTRAST, 11/06/2008 Indication: [...] DARREN ESPARZA 11/07/2008 08:50 Transcribed: 11/06/2008 10:28 [facility] Procedure Note Darren Esparza - 11/07/[address] [address] Admit Date: 11/06/2008 BRENDON ALDANA Sex: M Admit Prov: KELLE GANT Date: 1950 Primary Care Prov: TABATHA DRAPER CMRN: [id number] Room: [facility] SSN: [id number] IMAGING SERVICES Ordering Prov: N/A Interpretation CT [...] stool documented in this encounter Care Teams Independent Video Producer Relationship Specialty Start Date End Date Inderjit Narayan DO [address] [place] [phone] PCP - General Family Practice 04/09/23 08/29/23 documented as of this encounter
--- OUTSIDE RECORDS SUMMARY | 2024-12-09 21:16 | XMS_ITS | Encounter Summary ---
Author Organization [facility] Address [address] [place] [address] Care Team Providers Care Sustainability Executive Director Name Role Phone Inderjit Narayan DO Primary Care Provider + Encounter Details Date Type Department Care Team (Late st Contact Info) Description 11/21/2002 Outpatient Historical [facility] Medicine - [facility] [address] [facility] [address] [place] [address] Tayler Viera MD [address] [place] [address] Social History Tobacco Use Types Packs/Day Years Used Date Smoking Tobacco: Never Assessed Sex and Gender Information Value Date Recorded Sex Assigned at Not on file 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
--- OUTSIDE RECORDS SUMMARY | 2024-12-09 21:16 | XMS_ITS | Encounter Summary ---
Author Organization [facility] Address [address] [place] [address] Care Team Providers Care Director Of Medical Staff Services Name Role Phone Inderjit Narayan DO Primary Care Provider + Encounter Details Date Type Department Care Team (Late st Contact Info) Description 09/14/2005 Outpatient Historical [facility] Medicine - [facility] [address] [facility] [address] [place] [address] Tayler Viera MD [address] [place] [address] Social History Tobacco Use Types Packs/Day Years Used Date Smoking Tobacco: Never Assessed Sex and Gender Information Value Date Recorded Sex Assigned at Not on file 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
--- OUTSIDE RECORDS SUMMARY | 2024-12-09 21:16 | XMS_ITS | Encounter Summary ---
Author Organization [facility] Address [address] [place] [address] Care Team Providers Care Senior Software Developer Name Role Phone RomelbentleyrickyjosselineInderjit Nayeli CHRISTIANSEN Primary Care Provider + Encounter Details Date Type Department Care Team (Late st Contact Info) Description 09/28/2008 Outpatient Historical [facility] Cristela Gant MD [address] [place] [address] Blood in Stool Social History Tobacco Use Types Packs/Day Years Used Date Smoking Tobacco: Never Alcohol Use Standard Drinks/Week Comments No 0 (1 standard drink = 0.6 oz pur e alcohol) Sex and Gender Information Value Date Recorded Sex Assigned at Not on file Legal Sex Male 4:12 AM 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 DIFFICILE DETECTION Routine 09/28/2008 12:57 PM SMOKE AND FLAME SPECIALIST FECAL LEUKOCYTES STAIN Routine 09/28/2008 12:57 PM SMOKE AND FLAME SPECIALIST OVA AND PARASITE SCREEN Routine 09/28/2008 12:57 PM SMOKE AND FLAME SPECIALIST STOOL CULTURE W/SHIGA TOXIN Routine 09/28/2008 12:57 PM SMOKE AND FLAME SPECIALIST documented in this encounter Results * PATHOLOGY (09/28/2008 1:15 PM SMOKE AND FLAME SPECIALIST) FINAL REPORT [facility] [address] [facility] [place] [place], [place] [address] Patient: SONG ALDANA : 1950 Procedure Date: 09/28/2008 Accession Date: 09/28/2008 Case No: [id number] Ordering Dr: CRISTELA GANT Case types AW, BW, FW, NW and SH are performed by [facility] [place], [place] SURGICAL PATHOLOGY & NON-GYNECOLOGIC CYTOPATHOLOGY REPORT [...] 06:03 pm Microscopic: The slides are labeled [id number] and Song Jovan. The left colon biopsy [...] 05:12 pm INTERFACE SYSTEM 09/28/2008 1:15 PM SMOKE AND FLAME SPECIALIST us Cristela Gant MD PATHOLOGY/CYTOLOGY ORDERABLES F inal Result Performing Organization Address [facility] Phone Number INTERFACE SYSTEM Refer to clinic/hospital department * OVA AND PARASITE SCREEN (09/28/2008 12:57 PM SMOKE AND FLAME SPECIALIST) FINAL REPORT Concentratio n: No ova or parasites seen. Trichrome: No ova or parasites seen. [facility] Stool specimen (specimen) 09/28/2008 12:57 PM SMOKE AND FLAME SPECIALIST 09/28/2008 1:49 PM SMOKE AND FLAME SPECIALIST Narrative INTERFACE SYSTEM - 10/01/2008 11:56 AM SMOKE AND FLAME SPECIALIST Performed by [facility] [address] Performed by [facility] [address] us Cristela Gant MD MICROBIOLOGY - GENERAL ORDERABL ES Final Result Performing Organization Address [facility] Phone Number INTERFACE SYSTEM Refer to clinic/hospital department [facility] CLIA# [id number] [address] [place] [address] * FECAL LEUKOCYTES STAIN (09/28/2008 12:57 PM SMOKE AND FLAME SPECIALIST) FINAL REPORT Rare WBC's seen [facility] Stool specimen (specimen) 09/28/2008 12:57 PM SMOKE AND FLAME SPECIALIST 09/28/2008 1:49 PM SMOKE AND FLAME SPECIALIST us Cristela Gant MD MICROBIOLOGY - GENERAL ORDERABL ES Final Result Performing Organization Address [facility] de Phone Number INTERFACE SYSTEM Refer to clinic/hospital department [facility] CLIA# [id number] [address] [place] [address] * STOOL CULTURE (09/28/2008 12:57 PM SMOKE AND FLAME SPECIALIST) FINAL REPORT No Salmonella isolated. No Shigella isolated. No Escherichia coli serogroup O157:H7 isolated. No Camplylobacter isolated. [facility] Stool specimen (specimen) 09/28/2008 12:57 PM SMOKE AND FLAME SPECIALIST 09/28/2008 1:49 PM SMOKE AND FLAME SPECIALIST Cristela Gant MD MICROBIOLOGY - GENERAL ORDERABL ES Final Result INTERFACE SYSTEM Refer to clinic/hospital department [facility] CLIA# [id number] [address] [place] [address] * CLOSTRIDIUM DIFFICILE TOXIN (09/28/2008 12:57 PM SMOKE AND FLAME SPECIALIST) FINAL REPORT NO Clostridium difficile Toxin A or B detected by EIA. A negative result does not rule out C. difficile associated diarrhea or colitis. [facility] Stool specimen (specimen) 09/28/2008 12:57 PM SMOKE AND FLAME SPECIALIST 09/28/2008 1:49 PM SMOKE AND FLAME SPECIALIST Cristela Gant MD MICROBIOLOGY - GENERAL ORDERABL ES Final Result Performing Organization Address City/[facility]/ZIP Co de Phone Number INTERFACE SYSTEM Refer to clinic/hospital department [facility] CLIA# [id number] [address] [place] [address] documented in this encounter Visit Diagnoses Diagnosis Blood in stool documented in this encounter Care Teams Senior Software Developer Relationship Specialty Start Date End Date Inderjit Narayan DO [address] [place] [phone] PCP - General Family Practice 04/09/23 08/29/23 documented as of this encounter
--- OUTSIDE RECORDS SUMMARY | 2024-12-09 21:16 | XMS_ITS | Encounter Summary ---
Author Organization [facility] Address [address] [place] [address] Care Team Providers Care White Metal Caster Name Role Phone Inderjit Narayan DO Primary Care Provider + Encounter Details Date Type Department Care Team (Late st Contact Info) Description 05/11/2003 Outpatient Historical [facility] Medicine - [facility] [address] [facility] [address] [place] [address] Tayler Viera MD [address] [place] [address] Social History Tobacco Use Types Packs/Day Years Used Date Smoking Tobacco: Never Assessed Sex and Gender Information Value Date Recorded Sex Assigned at Not on file 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
--- OUTSIDE RECORDS SUMMARY | 2024-12-09 21:16 | XMS_ITS | Encounter Summary ---
Author Organization [facility] Address [address] [place] [address] Care Team Providers Care Horticultural Therapist Name Role Phone Inderjit Narayan DO Primary Care Provider + Encounter Details Date Type Department Care Team (Late st Contact Info) Description 06/09/1999 Outpatient Historical [facility] Medicine - [facility] [address] [facility] [address] [place] [address] Tayler Viera MD [address] [place] [address] Social History Tobacco Use Types Packs/Day Years Used Date Smoking Tobacco: Never Assessed Sex and Gender Information Value Date Recorded Sex Assigned at Not on file Legal Sex Male 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
--- OUTSIDE RECORDS SUMMARY | 2024-12-09 21:16 | XMS_ITS | Encounter Summary ---
Author Organization [facility] Address [address] [place] [address] Care Team Providers Care Web Marketing Assistant Name Role Phone Inderjit Narayan DO Primary Care Provider + Encounter Details Date Type Department Care Team (Late st Contact Info) Description 09/08/2006 Outpatient Historical [facility] Medicine - [facility] [address] [facility] [address] [place] [address] Tayler Viera MD [address] [place] [address] Social History Tobacco Use Types Packs/Day Years Used Date Smoking Tobacco: Never Assessed Sex and Gender Information Value Date Recorded Sex Assigned at Not on file 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
--- OUTSIDE RECORDS SUMMARY | 2024-12-09 21:16 | XMS_ITS | Encounter Summary ---
Author Organization [facility] Address [address] [place] [address] Care Team Providers Care Radiotelegraphist Name Role Phone Inderjit Narayan DO Primary Care Provider + Encounter Details Date Type Department Care Team (Late st Contact Info) Description 03/07/2002 Outpatient Historical [facility] Medicine - [facility] [address] [facility] [address] [place] [address] Dimitry Powell MD [address] [facility] [address] [place] [address] Social History Tobacco Use Types Packs/Day Years Used Date Smoking Tobacco: Never Assessed Sex and Gender Information Value Date Recorded Sex Assigned at Not on file Legal Sex Male 4:12 AM AIR DIRECTOR Gender Identity Not on file Sexual Orientation Not on file documented as of this encounter Plan of Treatment Not on file documented as of this encounter Visit Diagnoses Not on filedocumented in this encounter Care Teams Radiotelegraphist Relationship Specialty Start Date End Date Inderjit Narayan DO [address] [place] [phone] PCP - General Family Practice 04/09/23 08/29/23 documented as of this encounter
--- OUTSIDE RECORDS SUMMARY | 2024-12-09 21:16 | XMS_ITS | Clinical Summary ---
Author Organization Address [address] [place] [phone] Care Team Providers Care Oil Truck Driver Name Role Phone Unavailable Primary [...]
--- OUTSIDE RECORDS SUMMARY | 2024-12-09 21:16 | XMS_ITS | Encounter Summary ---
Author Organization [facility] Address [address] [place] [address] Care Team Providers Care Maintenance Specialist Name Role Phone Inderjit Narayan DO Primary Care Provider + Encounter Details Date Type Department Care Team (Late st Contact Info) Description 07/23/1999 Outpatient Historical [facility] Medicine - [facility] [address] [facility] [address] [place] [address] Tayler Viera MD [address] [place] [address] Social History Tobacco Use Types Packs/Day Years Used Date Smoking Tobacco: Never Assessed Sex and Gender Information Value Date Recorded Sex Assigned at Not on file 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
--- OUTSIDE RECORDS SUMMARY | 2024-12-09 21:16 | XMS_ITS | Encounter Summary ---
Author Organization [facility] Address [address] [place] [address] Care Team Providers Care Game Attendant Name Role Phone Inderjit Narayan DO Primary Care Provider + Encounter Details Date Type Department Care Team (Late st Contact Info) Description 06/07/2006 Outpatient Historical [facility] Medicine - [facility] [address] 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
--- OUTSIDE RECORDS SUMMARY | 2024-12-09 21:16 | XMS_ITS | Clinical Summary ---
Author Organization [facility] Address [address] [place] [address] Care Team Providers Care Livestock Farm Workers Name Role Phone Landry Fernandez DO Primary Care Provider [phone] Source Comments [facility],non-owned Affiliates and Associated Physician Practices is amultiple site organization consisting of ambulatory clinics and hospital sitesin [place], [place], [place] and [place]. This disclosure is being madepursuant to the Care Everywhere program and may not contain all information available regarding this patient. Last updated 18.[facility] Vital Juice Newsletter Allergies Active Allergy Reactions Criticality Noted Date Comments Methylprednisolone Rash Medium 07/12/2012 redness Sulfamethoxazole W-Trimethoprim Rash Medium 01/2010 Medications * Be aware that medications may not be up to date on this document. Alwaysverify current medications with the patient. fluticasone propionate (FLONASE) 50 MCG/ACT nasal spray [place] 2 Sprays into each nostril once daily Active omeprazole (PRILOSEC) 20 MG capsule Take 20 mg by mouth daily before breakfast Active simvastatin (ZOCOR) 20 MG tablet Take 20 mg by mouth at bedtime Active Olmesartan Medoxomil (BENICAR PO) Active Coenzyme Q10 (COQ-10 PO) Active Cetirizine-Pseu doephedrine (ZYRTEC-D PO) Active Cholecalciferol (VITAMIN D3 PO) Acti ve Social History Tobacco Use Types Packs/Day Years Used Date Smoking Tobacco: Never Smokeless Tobacco: Never Sex and Gender Information Value Date Recorded Sex Assigned at Not on file Legal Sex Male 10:31 AM CDT Gender Identity Not on file Sexual Orientation Not on file Last Filed Vital Signs Vital Sign Reading Time Taken Comments Blood Pressure 110/70 06/20/2019 10:06 AM ROOM SERVICE FOOD SERVER Pulse 80 06/20/2019 10:06 AM ROOM SERVICE FOOD SERVER Temperature 36.8 C (98.3 F) 06/20/2019 10:06 AM ROOM SERVICE FOOD SERVER Respiratory Rate 17 06/20/2019 10:06 AM ROOM SERVICE FOOD SERVER Oxygen Saturation 96% 06/20/2019 10:06 AM ROOM SERVICE FOOD SERVER Inhaled Oxygen Concentration - - Weight 92.5 kg (204 lb) 06/20/2019 10:06 AM ROOM SERVICE FOOD SERVER Height 180.3 cm (5' 11 ) 06/20/2019 10:06 AM ROOM SERVICE FOOD SERVER Body Mass Index 28.45 06/20/2019 10:06 AM ROOM SERVICE FOOD SERVER Plan of Treatment Health Maintenance Due Date Last Done Comments COLOGUARD (AGES 45-75) - COL ON CA SCREENING 1952 COLON MONITORING 1952 COLONOSCOPY - COLON CA SCREENING 1952 CT COLONOGRAPHY - COLON CA SCREENING 1952 FLEX SIG - COLON CA SCREENING 1952 HEPATITIS C SCREENING 03/22/1970 DTAP/TDAP/TD VACCINES (1 - Tdap) 1971 PNEUMOCOCCAL VACCINE 50+ (1 of 1 - PCV) 2002 ZOSTER VACCINE (1 of 2) 2002 SCREENING FOR DIABETES 11/11/2018 Colorectal Cancer Screening 04/26/2020 FIT - COLON CA SCREENING 04/26/2020 04/26/2019 COVID-19 VACCINE (1 - 2023-2 5 season) 2024 DEPRESSION SCREENING 08/09/2024 INFLUENZA VACCINE (Season Ended) 2025 05/12/2018, 05/21/2017, 07/16/2015 Respiratory Syncytial Virus (RSV) Vaccine [...] complete this topic MENINGOCOCCAL (Group B) VACCINE SHARED DECISION-MAKING Aged Out No longer eligible based on patient's age to complete this topic MENINGOCOCCAL GROUPS A/C/Y/W VACCINE Aged Out No longer eligible b ased on patient's age to complete [place] [address] [facility] MEDICARE [facility] [place] [address] MEDICARE Care Teams Livestock Farm Workers Relationship Specialty Start Date End Date Landry Fernandez DO PCP - General Family Medicine 04/19/16
--- OUTSIDE RECORDS SUMMARY | 2024-12-09 21:16 | XMS_ITS | Encounter Summary ---
Author Organization [facility] Address [address] [place] [address] Care Team Providers Care Manager Retention Name Role Phone Inderjit Narayan DO Primary Care Provider + Encounter Details Date Type Department Care Team (Late st Contact Info) Description 06/23/1999 Outpatient Historical [facility] Medicine - [facility] [address] [facility] [address] [place] [address] Tayler Viera MD [address] [place] [address] Social History Tobacco Use Types Packs/Day Years Used Date Smoking Tobacco: Never Assessed Sex and Gender Information Value Date Recorded Sex Assigned at Not on file Legal Sex Male 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
--- OUTSIDE RECORDS SUMMARY | 2024-12-09 21:16 | XMS_ITS | Encounter Summary ---
Author Organization [facility] Address [address] [place] [address] Care Team Providers Care Supervisor Sanding Name Role Phone Inderjit Narayan DO Primary Care Provider + Encounter Details Date Type Department Care Team (Late st Contact Info) Description 01/31/2002 Outpatient Historical [facility] Medicine - [facility] [address] [facility] [address] [place] [address] Tayler Viera MD [address] [place] [address] Social History Tobacco Use Types Packs/Day Years Used Date Smoking Tobacco: Never Assessed Sex and Gender Information Value Date Recorded Sex Assigned at Not on file Legal Sex Male 4:12 AM SUPPORT REPRESENTATIVE Gender Identity Not on file Sexual Orientation Not on file documented as of this encounter Plan of Treatment Not on file documented as of this encounter Visit Diagnoses Not on filedocumented in this encounter Care Teams Supervisor Sanding Relationship Specialty Start Date End Date Inderjit Narayan DO [address] [place] [phone] PCP - General Family Practice 04/09/23 08/29/23 documented as of this encounter
--- OUTSIDE RECORDS SUMMARY | 2024-12-09 21:16 | XMS_ITS | Encounter Summary ---
Author Organization [facility] Address [address] [place] [address] Care Team Providers Care Sales Vendor Name Role Phone Inderjit Narayan DO Primary Care Provider + Encounter Details Date Type Department Care Team (Late st Contact Info) Description 04/16/2000 Outpatient Historical [facility] Medicine - [facility] [address] [facility] [address] [place] [address] Dimitry Powell MD [address] 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
--- OUTSIDE RECORDS SUMMARY | 2024-12-09 21:16 | XMS_ITS | Encounter Summary ---
Author Organization [facility] Address [address] [place] [address] Care Team Providers Care Statistical Financial Analyst Name Role Phone Inderjit Narayan DO Primary Care Provider + Encounter Details Date Type Department Care Team (Late st Contact Info) Description 03/06/2005 Outpatient Historical [facility] Medicine - [facility] [address] [facility] [address] [place] [address] Tayler Viera MD [address] [place] [address] Social History Tobacco Use Types Packs/Day Years Used Date Smoking Tobacco: Never Assessed Sex and Gender Information Value Date Recorded Sex Assigned at Not on file Legal Sex Male 4:12 AM DAIRY CLERK Gender Identity Not on file Sexual Orientation Not on file documented as of this encounter Plan of Treatment Not on file documented as of this encounter Visit Diagnoses Not on filedocumented in this encounter Care Teams Statistical Financial Analyst Relationship Specialty Start Date End Date Inderjit Narayan DO [address] [place] [phone] PCP - General Family Practice 04/09/23 08/29/23 documented as of this encounter
--- OUTSIDE RECORDS SUMMARY | 2024-12-09 21:16 | XMS_ITS | Encounter Summary ---
Author Organization [facility] Address [address] [place] [address] Care Team Providers Care Ice Cream Freezer Assistant Name Role Phone Inderjit Narayan DO Primary Care Provider + Encounter Details Date Type Department Care Team (Late st Contact Info) Description 02/05/2006 Outpatient Historical [facility] Medicine - [facility] [address] [facility] [address] [place] [address] Tayler Viera MD [address] [place] [address] Social History Tobacco Use Types Packs/Day Years Used Date Smoking Tobacco: Never Assessed Sex and Gender Information Value Date Recorded Sex Assigned at Not on file Legal Sex Male 4:12 AM SECOND LANGUAGE TUTOR Gender Identity Not on file Sexual Orientation Not on file documented as of this encounter Plan of Treatment Not on file documented as of this encounter Visit Diagnoses Not on filedocumented in this encounter Care Teams Ice Cream Freezer Assistant Relationship Specialty Start Date End Date Inderjit Narayan DO [address] [place] [phone] PCP - General Family Practice 04/09/23 08/29/23 documented as of this encounter
--- NOTE | 2024-12-09 21:20 | ECG_ITS ---
Test Date: 2024-12-09 21:23:21 Measurements Intervals [place] Rate: 69 P: 3 NH: 225 QRS: -55 QRSD: 141 T: 47 QT: 436 QTc: 468 Interpretive Statements SINUS RHYTHM WITH FIRST DEGREE AV BLOCK RIGHT BUNDLE BRANCH BLOCK [120+ ms QRS DURATION, UPRIGHT V1, 40+ ms S IN I/aVL/V4/V5/V6] LEFT ANTERIOR FASCICULAR BLOCK [QRS AXIS <= -45, QR IN I, RS IN II] MINIMAL VOLTAGE CRITERIA FOR LVH, CONSIDER NORMAL VARIANT [MEETS CRITERIA IN ONE OF: R(aVL), S(V1), R(V5), R(V5/V6)+S(V1)] Compared to ECG 09/14/2024 12:10:10 No significant changes Electronically Signed On 12-10-2024 16:03:56 CDT by Cassius Powell
--- OUTSIDE RECORDS SUMMARY | 2024-12-09 21:53 | XMS_ITS | Encounter Summary ---
Author Organization [facility] Address [address] [place] [address] Care Team Providers Care Associate Professor Of Art History Name Role Phone Inderjit Narayan DO Primary Care Provider + Encounter Details Date Type Department Care Team (Late st Contact Info) Description 06/07/2006 Outpatient Historical [facility] Medicine - [facility] [address] [facility] [place] [address] Najma Aquino MD [address] [place] [address] Social History Tobacco Use Types Packs/Day Years Used Date Smoking Tobacco: Never Assessed Sex and Gender Information Value Date Recorded Sex Assigned at Not on file Legal Sex Male 4:12 AM INSURANCE COLLECTOR Gender Identity Not on file Sexual Orientation Not on file documented as of this encounter Plan of Treatment Not on file documented as of this encounter Visit Diagnoses Not on filedocumented in this encounter Care Teams Associate Professor Of Art History Relationship Specialty Start Date End Date Inderjit Narayan DO [facility] [place] [phone] PCP - General Family Practice 04/09/23 08/29/23 documented as of this encounter
--- OUTSIDE RECORDS SUMMARY | 2024-12-09 21:53 | XMS_ITS | Encounter Summary ---
Author Organization [facility] Address [address] [place] [address] Care Team Providers Care Equine Dentist Name Role Phone Inderjit Narayan DO Primary Care Provider + Encounter Details Date Type Department Care Team (Late st Contact Info) Description 09/24/2004 Outpatient Historical [facility] Medicine - [facility] [address] [facility] [address] [place] [address] Tayler Viera MD [address] [place] [address] Social History Tobacco Use Types Packs/Day Years Used Date Smoking Tobacco: Never Assessed Sex and Gender Information Value Date Recorded Sex Assigned at Not on file Legal Sex Male 4:12 AM MEDICAL STAFFING COORDINATOR Gender Identity Not on file Sexual Orientation Not on file documented as of this encounter Plan of Treatment Not on file documented as of this encounter Visit Diagnoses Not on filedocumented in this encounter Care Teams Equine Dentist Relationship Specialty Start Date End Date Inderjit Narayan DO [address] [place] [phone] PCP - General Family Practice 04/09/23 08/29/23 documented as of this encounter
--- OUTSIDE RECORDS SUMMARY | 2024-12-09 21:53 | XMS_ITS | Encounter Summary ---
Author Organization [facility] Address [address] [place] [address] Care Team Providers Care Leguillon Debeader Name Role Phone Inderjit Narayan DO Primary Care Provider + Encounter Details Date Type Department Care Team (Late st Contact Info) Description 09/08/2006 Outpatient Historical [facility] Medicine - [facility] [address] [facility] [address] [place] [address] Tayler Viera MD [address] [place] [address] Social History Tobacco Use Types Packs/Day Years Used Date Smoking Tobacco: Never Assessed Sex and Gender Information Value Date Recorded Sex Assigned at Not on file Legal Sex Male 4:12 AM STRAPPING 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
--- OUTSIDE RECORDS SUMMARY | 2024-12-09 21:53 | XMS_ITS | Encounter Summary ---
Author Organization [facility] Address [address] [place] [address] Care Team Providers Care Fiber Technologist Name Role Phone Inderjit Narayan DO Primary Care Provider + Encounter Details Date Type Department Care Team (Late st Contact Info) Description 03/06/2005 Outpatient Historical [facility] Medicine - [facility] [address] [facility] [address] [place] [address] Tayler Viera MD [address] [place] [address] Social History Tobacco Use Types Packs/Day Years Used Date Smoking Tobacco: Never Assessed Sex and Gender Information Value Date Recorded Sex Assigned at Not on file Legal Sex Male 4:12 AM CLOTHING CONSULTANT Gender Identity Not on file Sexual Orientation Not on file documented as of this encounter Plan of Treatment Not on file documented as of this encounter Visit Diagnoses Not on filedocumented in this encounter Care Teams Fiber Technologist Relationship Specialty Start Date End Date Inderjit Narayan DO [address] [place] [phone] PCP - General Family Practice 04/09/23 08/29/23 documented as of this encounter
--- OUTSIDE RECORDS SUMMARY | 2024-12-09 21:53 | XMS_ITS | Encounter Summary ---
Author Organization [facility] Address [address] [place] [address] Care Team Providers Care Legal Adviser Name Role Phone Inderjit Narayan DO Primary Care Provider + Encounter Details Date Type Department Care Team (Late st Contact Info) Description 09/02/2007 Outpatient Historical [facility] Medicine - [facility] [address] [facility] [address] [place] [address] Tayler Viera MD [address] [place] [address] Social History Tobacco Use Types Packs/Day Years Used Date Smoking Tobacco: Never Assessed Sex and Gender Information Value Date Recorded Sex Assigned at Not on file Legal Sex Male 4:12 AM SOLAR SYSTEMS DESIGNER Gender Identity Not on file Sexual Orientation Not on file documented as of this encounter Plan of Treatment Not on file documented as of this encounter Visit Diagnoses Not on filedocumented in this encounter Care Teams Legal Adviser Relationship Specialty Start Date End Date Inderjit Narayan DO [address] [place] [phone] PCP - General Family Practice 04/09/23 08/29/23 documented as of this encounter
--- OUTSIDE RECORDS SUMMARY | 2024-12-09 21:53 | XMS_ITS | Encounter Summary ---
Author Organization [facility] Address [address] [place] [address] Care Team Providers Care Master [place] Name Role Phone Inderjit Narayan DO Primary Care Provider + Encounter Details Date Type Department Care Team (Late st Contact Info) Description 09/14/2005 Outpatient Historical [facility] Medicine - [facility] [address] [facility] [address] [place] [address] Tayler Viera MD [address] [place] [address] Social History Tobacco Use Types Packs/Day Years Used Date Smoking Tobacco: Never Assessed Sex and Gender Information Value Date Recorded Sex Assigned at Not on file Legal Sex Male 4:12 AM HEAD MACHINIST Gender Identity Not on file Sexual Orientation Not on file documented as of this encounter Plan of Treatment Not on file documented as of this encounter Visit Diagnoses Not on filedocumented in this encounter Care Teams Master [place] Relationship Specialty Start Date End Date Inderjit Narayan DO [address] [place] [phone] PCP - General Family Practice 04/09/23 08/29/23 documented as of this encounter
--- OUTSIDE RECORDS SUMMARY | 2024-12-09 21:53 | XMS_ITS | Encounter Summary ---
Author Organization [facility] Address [address] [place] [address] Care Team Providers Care Drip Molder Name Role Phone Inderjit Narayan DO Primary Care Provider + Encounter Details Date Type Department Care Team (Late st Contact Info) Description 02/05/2006 Outpatient Historical [facility] Medicine - [facility] [address] [facility] [address] [place] [address] Tayler Viera MD [address] [place] [address] Social History Tobacco Use Types Packs/Day Years Used Date Smoking Tobacco: Never Assessed Sex and Gender Information Value Date Recorded Sex Assigned at Not on file Legal Sex Male 4:12 AM MULTIMEDIA AUTHOR Gender Identity Not on file Sexual Orientation Not on file documented as of this encounter Plan of Treatment Not on file documented as of this encounter Visit Diagnoses Not on filedocumented in this encounter Care Teams Drip Molder Relationship Specialty Start Date End Date Inderjit Narayan DO [address] [place] [phone] PCP - General Family Practice 04/09/23 08/29/23 documented as of this encounter
--- OUTSIDE RECORDS SUMMARY | 2024-12-09 21:53 | XMS_ITS | Clinical Summary ---
Author Organization [employer] [facility] Address [address] [facility] [address] [place], [place] [address] Phone Care Team Providers Care Analytical Statistician Name Role Phone Unavailable Primary Care [...] by mouth. Active sod bicarb-sod chlor-neti pot ([place] Saline Nasal Neti Rinse) packet with rinse [...] Active Fluticasone Furoate (FLONASE SENSIMIST) 27.5 mcg/actuation [place], Suspension Administer 2 Sprays in each nostril [...] on file Legal Sex Male 4:12 AM SCHEME TECHNICIAN Gender Identity Not on file Sexual Orientation [...] , 10/14/2017 Medical Devices Implanted Type Area Doctor Of Nursing Practice Device Identifier Shelf Expiration Date Model / Serial / Lot [place] Speedbridge W/ Biocmpst Ign[employer]ck [id number] - [id number] Implanted:Qty: 1 on 09/30/2018 by Nehemiah Castellano MD at [facility] [place] Right: Shoulder [employer] 08/08/2020 [id number] / / [id number] Procedures Procedure Name Priority Date/Time Associated Diagnosis Comments COLONOSCOPY REPORT 04/09/2023 10 :14 AM CDT OCCULT BLOOD IMMUNOASSAY, COLORECTAL SCREEN Routine 04/26/2019 9:19 PM CDT Screening for colon cancer from Last 3 Months or Most Recently Relevant to Health Maintenance Results * COLONOSCOPY REPORT (04/09/2023 10:14 AM CDT) Narrative Procedure Note Modesta Wise DO - 04/09/2023 10:14 AM CDT [facility] Endoscopy Patient Name: Brendon Aldana [...] Addenda: 0 Procedure Date: 04/09/2023 9:32:32 AM [address] [address] Modesta Wise DO GI PROCEDURE ORDERABLES Fin al Result * (ABNORMAL) OCCULT BLOOD IMMUNOASSAY, COLORECTAL SCREEN (04/26/2019 9:19 PM CDT) OCCULT BLOOD, STOOL Positive(A ) Negative 04/27/2019 11:28 PM CDT [facility] [employer] [facility] Stool STOOL SPECIMEN / Unknown Collection / Unknown 04/26/2019 9:19 PM CDT 04/27/2019 9:19 PM CDT Ciro Fernandez DO BODY FLUIDS AND STOOLS Final Res ult [facility] [employer] [facility] CLIA# [id number] [address] [place] [address] from Last 3 Months or Most Recently Relevant to Health [place] [address] MEDICARE PART A AND B [facility] [place] [id number] Advance Directives For more information, please contact: [phone] * Full Code (Latest Code Status on [...]
--- OUTSIDE RECORDS SUMMARY | 2024-12-09 21:54 | XMS_ITS | Encounter Summary ---
Author Organization [facility] Address [address] [place] [address] Care Team Providers Care Airport Security Screener Name Role Phone Inderjit Narayan DO Primary Care Provider + Encounter Details Date Type Department Care Team (Late st Contact Info) Description 04/16/2000 Outpatient Historical [facility] Medicine - [facility] [address] [facility] [address] [place] [address] Dimitry Powell MD [address] [facility] [address] [place] [address] Social History Tobacco Use Types Packs/Day Years Used Date Smoking Tobacco: Never Assessed Sex and Gender Information Value Date Recorded Sex Assigned at Not on file Legal Sex Male 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
--- OUTSIDE RECORDS SUMMARY | 2024-12-09 21:54 | XMS_ITS | Encounter Summary ---
Author Organization [facility] Address [address] [place] [address] Care Team Providers Care Bi Analyst Name Role Phone Inderjit Narayan DO Primary Care Provider + Encounter Details Date Type Department Care Team (Late st Contact Info) Description 09/22/2002 Outpatient Historical [facility] Medicine - [facility] [address] [facility] [address] [place] [address] Tayler Viera MD [address] [place] [address] Social History Tobacco Use Types Packs/Day Years Used Date Smoking Tobacco: Never Assessed Sex and Gender Information Value Date Recorded Sex Assigned at Not on file Legal Sex Male 4:12 AM IT SYSTEMS ANALYST CONSULTANT Gender Identity Not on file Sexual Orientation Not on file documented as of this encounter Plan of Treatment Not on file documented as of this encounter Visit Diagnoses Not on filedocumented in this encounter Care Teams Bi Analyst Relationship Specialty Start Date End Date Inderjit Narayan DO [address] [place] [phone] PCP - General Family Practice 04/09/23 08/29/23 documented as of this encounter
--- OUTSIDE RECORDS SUMMARY | 2024-12-09 21:54 | XMS_ITS | Encounter Summary ---
Author Organization [facility] Address [address] [place] [address] Care Team Providers Care Shirt Marker Name Role Phone Inderjit Narayan DO Primary Care Provider + Encounter Details Date Type Department Care Team (Late st Contact Info) Description 04/08/2004 Outpatient Historical [facility] Medicine - [facility] [address] [facility] [address] [place] [address] Tayler Viera MD [address] [place] [address] Social History Tobacco Use Types Packs/Day Years Used Date Smoking Tobacco: Never Assessed Sex and Gender Information Value Date Recorded Sex Assigned at Not on file Legal Sex Male 4:12 AM PLASTIC EYE TECHNICIAN Gender Identity Not on file Sexual Orientation Not on file documented as of this encounter Plan of Treatment Not on file documented as of this encounter Visit Diagnoses Not on filedocumented in this encounter Care Teams Shirt Marker Relationship Specialty Start Date End Date Inderjit Narayan DO [address] [place] [phone] PCP - General Family Practice 04/09/23 08/29/23 documented as of this encounter
--- OUTSIDE RECORDS SUMMARY | 2024-12-09 21:54 | XMS_ITS | Encounter Summary ---
Author Organization [facility] Address [address] [place] [address] Care Team Providers Care Senior Online Marketing Manager Name Role Phone Inderjit Narayan DO Primary Care Provider + Encounter Details Date Type Department Care Team (Late st Contact Info) Description 05/02/2007 Outpatient Historical [facility] Medicine - [facility] [address] [facility] [address] [place] [address] Robin Dexter MD [address] [place] [address] Social History Tobacco Use Types Packs/Day Years Used Date Smoking Tobacco: Never Assessed Sex and Gender Information Value Date Recorded Sex Assigned at Not on file Legal Sex Male 4:12 AM REPRODUCER Gender Identity Not on file Sexual Orientation Not on file documented as of this encounter Plan of Treatment Not on file documented as of this encounter Visit Diagnoses Not on filedocumented in this encounter Care Teams Senior Online Marketing Manager Relationship Specialty Start Date End Date Inderjit Narayan DO [address] [place] [address] [phone] PCP - General Family Practice 04/09/23 08/29/23 documented as of this encounter
--- OUTSIDE RECORDS SUMMARY | 2024-12-09 21:54 | XMS_ITS | Encounter Summary ---
Author Organization [facility] Address [address] [place] [address] Care Team Providers Care Bonding And Composite Fabricator Name Role Phone Inderjit Narayan DO Primary Care Provider + Encounter Details Date Type Department Care Team (Late st Contact Info) Description 04/29/2001 Outpatient Historical [facility] Medicine - [facility] [address] [facility] [address] [place] [address] Dimitry Powell MD [address] [facility] [address] [place] [address] Social History Tobacco Use Types Packs/Day Years Used Date Smoking Tobacco: Never Assessed Sex and Gender Information Value Date Recorded Sex Assigned at Not on file Legal Sex Male 4:12 AM SPORTS MEDIA Gender Identity Not on file Sexual Orientation Not on file documented as of this encounter Plan of Treatment Not on file documented as of this encounter Visit Diagnoses Not on filedocumented in this encounter Care Teams Bonding And Composite Fabricator Relationship Specialty Start Date End Date Inderjit Narayan DO [address] [place] [phone] PCP - General Family Practice 04/09/23 08/29/23 documented as of this encounter
--- OUTSIDE RECORDS SUMMARY | 2024-12-09 21:54 | XMS_ITS | Encounter Summary ---
Author Organization [facility] Address [address] [place] [address] Care Team Providers Care Stove Carriage Operator Name Role Phone Inderjit Narayan DO Primary Care Provider + Encounter Details Date Type Department Care Team (Late st Contact Info) Description 10/29/2003 Outpatient Historical [facility] Medicine - [facility] [address] [facility] [address] [place] [address] Tayler Viera MD [address] [place] [address] Social History Tobacco Use Types Packs/Day Years Used Date Smoking Tobacco: Never Assessed Sex and Gender Information Value Date Recorded Sex Assigned at Not on file Legal Sex Male 4:12 AM MATERIALS DIRECTOR Gender Identity Not on file Sexual Orientation Not on file documented as of this encounter Plan of Treatment Not on file documented as of this encounter Visit Diagnoses Not on filedocumented in this encounter Care Teams Stove Carriage Operator Relationship Specialty Start Date End Date Inderjit Narayan DO [address] [place] [phone] PCP - General Family Practice 04/09/23 08/29/23 documented as of this encounter
--- OUTSIDE RECORDS SUMMARY | 2024-12-09 21:54 | XMS_ITS | Encounter Summary ---
Author Organization [facility] Address [address] [place] [address] Care Team Providers Care Silk Screen Cutter Name Role Phone Inderjit Narayan DO Primary Care Provider + Encounter Details Date Type Department Care Team (Late st Contact Info) Description 06/27/2002 Outpatient Historical [facility] Medicine - [facility] [address] [facility] [address] [place] [address] Tayler Viera MD [address] [place] [address] Social History Tobacco Use Types Packs/Day Years Used Date Smoking Tobacco: Never Assessed Sex and Gender Information Value Date Recorded Sex Assigned at Not on file Legal Sex Male 4:12 AM TELEGRAPH EDITOR Gender Identity Not on file Sexual Orientation Not on file documented as of this encounter Plan of Treatment Not on file documented as of this encounter Visit Diagnoses Not on filedocumented in this encounter Care Teams Silk Screen Cutter Relationship Specialty Start Date End Date Inderjit Narayan DO [address] [place] [phone] PCP - General Family Practice 04/09/23 08/29/23 documented as of this encounter
--- OUTSIDE RECORDS SUMMARY | 2024-12-09 21:54 | XMS_ITS | Encounter Summary ---
Author Organization [facility] Address [address] [place] [address] Care Team Providers Care Rose Grading Supervisor Name Role Phone Inderjit Narayan DO Primary Care Provider + Encounter Details Date Type Department Care Team (Late st Contact Info) Description 11/21/2002 Outpatient Historical [facility] Medicine - [facility] [address] [facility] [address] [place] [address] Tayler Viera MD [address] [place] [address] Social History Tobacco Use Types Packs/Day Years Used Date Smoking Tobacco: Never Assessed Sex and Gender Information Value Date Recorded Sex Assigned at Not on file Legal Sex Male 4:12 AM REGIONAL ACCOUNT DIRECTOR Gender Identity Not on file Sexual Orientation Not on file documented as of this encounter Plan of Treatment Not on file documented as of this encounter Visit Diagnoses Not on filedocumented in this encounter Care Teams Rose Grading Supervisor Relationship Specialty Start Date End Date Inderjit Narayan DO [address] [place] [phone] PCP - General Family Practice 04/09/23 08/29/23 documented as of this encounter
--- OUTSIDE RECORDS SUMMARY | 2024-12-09 21:54 | XMS_ITS | Encounter Summary ---
Author Organization [facility] Address [address] [place] [address] Care Team Providers Care Detasseler Name Role Phone Inderjit Narayan DO Primary Care Provider + Encounter Details Date Type Department Care Team (Late st Contact Info) Description 01/30/2002 Outpatient Historical [facility] Medicine - [facility] [address] [facility] [address] [place] [address] Tayler Viera MD [address] [place] [address] Social History Tobacco Use Types Packs/Day Years Used Date Smoking Tobacco: Never Assessed Sex and Gender Information Value Date Recorded Sex Assigned at Not on file Legal Sex Male 4:12 AM EXTERNAL RELATIONS MANAGER Gender Identity Not on file Sexual Orientation Not on file documented as of this encounter Plan of Treatment Not on file documented as of this encounter Visit Diagnoses Not on filedocumented in this encounter Care Teams Detasseler Relationship Specialty Start Date End Date Inderjit Narayan DO [address] [place] [phone] PCP - General Family Practice 04/09/23 08/29/23 documented as of this encounter
--- OUTSIDE RECORDS SUMMARY | 2024-12-09 21:54 | XMS_ITS | Encounter Summary ---
Author Organization [facility] Address [address] [place] [address] Care Team Providers Care Senior Database Engineer Name Role Phone Inderjit Narayan DO Primary Care Provider + Encounter Details Date Type Department Care Team (Late st Contact Info) Description 03/07/2002 Outpatient Historical [facility] Medicine - [facility] [address] [facility] [address] [place] [address] Dimitry Powell MD [address] [facility] [address] [place] [address] Social History Tobacco Use Types Packs/Day Years Used Date Smoking Tobacco: Never Assessed Sex and Gender Information Value Date Recorded Sex Assigned at Not on file Legal Sex Male 4:12 AM MACHINE ADJUSTER Gender Identity Not on file Sexual Orientation Not on file documented as of this encounter Plan of Treatment Not on file documented as of this encounter Visit Diagnoses Not on filedocumented in this encounter Care Teams Senior Database Engineer Relationship Specialty Start Date End Date Inderijt Narayan DO [address] [place] [phone] PCP - General Family Practice 04/09/23 08/29/23 documented as of this encounter
--- OUTSIDE RECORDS SUMMARY | 2024-12-09 21:54 | XMS_ITS | Encounter Summary ---
Author Organization [facility] Address [address] [place] [address] Care Team Providers Care Management Architect Name Role Phone Inderjit Narayan DO Primary Care Provider + Encounter Details Date Type Department Care Team (Late st Contact Info) Description 06/23/1999 Outpatient Historical [facility] Medicine - [facility] [address] [facility] [address] [place] [address] Tayler Viera MD [address] [place] [address] Social History Tobacco Use Types Packs/Day Years Used Date Smoking Tobacco: Never Assessed Sex and Gender Information Value Date Recorded Sex Assigned at Not on file Legal Sex Male 4:12 AM CUTTING AND CREASING PRESS OPERATOR Gender Identity Not on file Sexual Orientation Not on file documented as of this encounter Plan of Treatment Not on file documented as of this encounter Visit Diagnoses Not on filedocumented in this encounter Care Teams Management Architect Relationship Specialty Start Date End Date Inderjit Narayan DO [address] [place] [phone] PCP - General Family Practice 04/09/23 08/29/23 documented as of this encounter
--- OUTSIDE RECORDS SUMMARY | 2024-12-09 21:54 | XMS_ITS | Encounter Summary ---
Author Organization [facility] Address [address] [place] [address] Care Team Providers Care Life Care Planner Name Role Phone Inderjit Narayan Primary Care Provider + Encounter Details Date Type Department Care Team (Late st Contact Info) Description 11/06/2008 Outpatient Historical [facility] Kelle Gant MD [address] [place] [address] Blood in Stool Social History Tobacco Use Types Packs/Day Years Used Date Smoking Tobacco: Never Alcohol Use Standard Drinks/Week Comments No 0 (1 standard drink = 0.6 oz pur e alcohol) Sex and Gender Information Value Date Recorded Sex Assigned at Not on file Legal Sex Male 4:12 AM SHOP HELPER Gender Identity Not on file Sexual [...] AM CDT Narrative 11/07/2008 8:52 AM CDT [facility] [address] [place], [place] [address] Admit Date: 11/06/2008 BRENDON ALDANA Sex: M Admit Prov: KELLE GANT Date: 1950 Primary Care Prov: TABATHA DRAPER CMRN: [id number] [id number] IM[facility] Ordering Prov: N/A Accession Number: [id number] Interpretation CT HEAD WITHOUT CONTRAST, 11/06/2008 Indication: [...] DARREN ESPARZA 11/07/2008 08:50 Transcribed: 11/06/2008 10:28 [facility] Procedure Note Darren Esparza - 11/07/[address] [address] Admit Date: 11/06/2008 BRENDON ALDANA Sex: M Admit Prov: KELLE GANT Date: 1950 Primary Care Prov: TABATHA DRAPER CMRN: [id number] Room: [facility] SSN: [id number] IMAGING SERVICES Ordering Prov: N/A Interpretation CT [...] theleft coronal suture. . Dictated by: DARREN ESPRAZA 11/06/2008 10:19 Electronically signed by: DARREN ESPARZA 11/07/2008 08:50 Transcribed: 11/06/2008 10:28 M Kelle Gant MD CT ORDERABLES Final Result documented in this encounter Visit Diagnoses Diagnosis Blood in stool documented in this encounter Care Teams Life Care Planner Relationship Specialty Start Date End Date Inderjit Narayan DO [address] [place] [phone] PCP - General Family Practice 04/09/23 08/29/23 documented as of this encounter
--- OUTSIDE RECORDS SUMMARY | 2024-12-09 21:54 | XMS_ITS | Encounter Summary ---
Author Organization [facility] Address [address] [place] [address] Care Team Providers Care Measurement Specialist Name Role Phone Inderjit Narayan DO Primary Care Provider + Encounter Details Date Type Department Care Team (Late st Contact Info) Description 01/31/2002 [facility]patient [facility] - [facility] [address] [facility] [address] [place] [address] Tayler Viera MD [address] [place] [address] Social History Tobacco Use Types Packs/Day Years Used Date Smoking Tobacco: Never Assessed Sex and Gender Information Value Date Recorded Sex Assigned at Not on file Legal Sex Male 4:12 AM SENIOR CONSTRUCTION ESTIMATOR Gender Identity Not on file Sexual Orientation Not on file documented as of this encounter Plan of Treatment Not on file documented as of this encounter Visit Diagnoses Not on filedocumented in this encounter Care Teams Measurement Specialist Relationship Specialty Start Date End Date Inderjit Narayan DO [address] [place] [phone] PCP - General Family Practice 04/09/23 08/29/23 documented as of this encounter
--- OUTSIDE RECORDS SUMMARY | 2024-12-09 21:54 | XMS_ITS | Encounter Summary ---
Author Organization [facility] Address [address] [place] [address] Care Team Providers Care Enterprise Records Analyst Name Role Phone Inderjit Narayan DO Primary Care Provider + Encounter Details Date Type Department Care Team (Late st Contact Info) Description 07/23/1999 Outpatient Historical [facility] Medicine - [facility] [address] [facility] [address] [place] [address] Tayler Viera MD [address] [place] [address] Social History Tobacco Use Types Packs/Day Years Used Date Smoking Tobacco: Never Assessed Sex and Gender Information Value Date Recorded Sex Assigned at Not on file Legal Sex Male 4:12 AM HOUSE PLAYER Gender Identity Not on file Sexual Orientation Not on file documented as of this encounter Plan of Treatment Not on file documented as of this encounter Visit Diagnoses Not on filedocumented in this encounter Care Teams Enterprise Records Analyst Relationship Specialty Start Date End Date Inderjit Narayan DO [address] [place] [phone] PCP - General Family Practice 04/09/23 08/29/23 documented as of this encounter
--- OUTSIDE RECORDS SUMMARY | 2024-12-09 21:54 | XMS_ITS | Encounter Summary ---
Author Organization [facility] Address [address] [place] [address] Care Team Providers Care Investment Banking Analyst Name Role Phone Inderjit Narayan DO Primary Care Provider + Encounter Details Date Type Department Care Team (Late st Contact Info) Description 07/21/1999 Outpatient Historical [facility] Medicine - [facility] [address] [facility] [address] [place] [address] Tayler Viera MD [address] [place] [address] Social History Tobacco Use Types Packs/Day Years Used Date Smoking Tobacco: Never Assessed Sex and Gender Information Value Date Recorded Sex Assigned at Not on file Legal Sex Male 4:12 AM VOCATIONAL AUTO BODY INSTRUCTOR Gender Identity Not on file Sexual Orientation Not on file documented as of this encounter Plan of Treatment Not on file documented as of this encounter Visit Diagnoses Not on filedocumented in this encounter Care Teams Investment Banking Analyst Relationship Specialty Start Date End Date Inderjit Narayan DO [address] [place] [phone] PCP - General Family Practice 04/09/23 08/29/23 documented as of this encounter
--- OUTSIDE RECORDS SUMMARY | 2024-12-09 21:54 | XMS_ITS | Clinical Summary ---
Author Organization [facility] Address [address] [place] [address] Care Team Providers Care Dance Hall Hostess Name Role Phone Landry Fernandez DO Primary Care Provider [phone] Source Comments [facility],non-owned Affiliates and Associated Physician Practices is amultiple site organization consisting of ambulatory clinics and hospital sitesin [place], [place]. This disclosure is being madepursuant to the Care Everywhere program and may not contain all information available regarding this patient. Last updated 18.[facility] Believe[facility]in Allergies Active Allergy Reactions Criticality Noted Date Comments Methylprednisolone Rash Medium 07/12/2012 redness Sulfamethoxazole W-Trimethoprim Rash Medium 01/2010 Medications * Be aware that medications may not be up to date on this document. Alwaysverify current medications with the patient. fluticasone propionate (FLONASE) 50 MCG/ACT nasal spray Agate 2 Sprays into each nostril once daily [...] Comments Blood Pressure 110/70 06/20/2019 10:06 AM CLIP LOADING MACHINE ADJUSTER Pulse 80 06/20/2019 10:06 AM CLIP LOADING MACHINE ADJUSTER Temperature 36.8 C (98.3 F) 06/20/2019 10:06 AM CLIP LOADING MACHINE ADJUSTER Respiratory Rate 17 06/20/2019 10:06 AM CLIP LOADING MACHINE ADJUSTER Oxygen Saturation 96% 06/20/2019 10:06 AM CLIP LOADING MACHINE ADJUSTER Inhaled Oxygen Concentration - - Weight 92.5 kg (204 lb) 06/20/2019 10:06 AM CLIP LOADING MACHINE ADJUSTER Height 180.3 cm (5' 11 ) 06/20/2019 10:06 AM CLIP LOADING MACHINE ADJUSTER Body Mass Index 28.45 06/20/2019 10:06 AM CLIP LOADING MACHINE ADJUSTER Plan of Treatment Health Maintenance Due Date [...] age to complete this [place] [address] [facility] Address: [address] [place] [address] MEDICARE [place] [address] MEDICARE Care Teams Dance Hall Hostess Relationship Specialty Start Date End Date Landry Fernandez DO PCP - General Family Medicine 04/19/16
--- OUTSIDE RECORDS SUMMARY | 2024-12-09 21:54 | XMS_ITS | Encounter Summary ---
Author Organization [facility] Address [address] [place] [address] Care Team Providers Care Applications Engineering Manager Name Role Phone Inderjit Narayan DO Primary Care Provider + Encounter Details Date Type Department Care Team (Late st Contact Info) Description 09/17/2000 Outpatient Historical [facility] Medicine - [facility] [address] [facility] [address] [place] [address] Tayler Viera MD [address] [place] [address] Social History Tobacco Use Types Packs/Day Years Used Date Smoking Tobacco: Never Assessed Sex and Gender Information Value Date Recorded Sex Assigned at Not on file Legal Sex Male 4:12 AM DIRECTOR OF STRATEGIC ALLIANCES Gender Identity Not on file Sexual Orientation Not on file documented as of this encounter Plan of Treatment Not on file documented as of this encounter Visit Diagnoses Not on filedocumented in this encounter Care Teams Applications Engineering Manager Relationship Specialty Start Date End Date Inderjit Narayan DO [address] [place] [phone] PCP - General Family Practice 04/09/23 08/29/23 documented as of this encounter
--- OUTSIDE RECORDS SUMMARY | 2024-12-09 21:54 | XMS_ITS | Encounter Summary ---
Author Organization [facility] Address [address] [place] [address] Care Team Providers Care Delinquent Tax Collection Assistant Name Role Phone Inderjit Narayan DO Primary Care Provider + Encounter Details Date Type Department Care Team (Late st Contact Info) Description 06/09/1999 Outpatient Historical [facility] Medicine - [facility] [address] [facility] [address] [place] [address] Tayler Viera MD [address] [place] [address] Social History Tobacco Use Types Packs/Day Years Used Date Smoking Tobacco: Never Assessed Sex and Gender Information Value Date Recorded Sex Assigned at Not on file Legal Sex Male 4:12 AM HOSPITAL RECRUITER Gender Identity Not on file Sexual Orientation Not on file documented as of this encounter Plan of Treatment Not on file documented as of this encounter Visit Diagnoses Not on filedocumented in this encounter Care Teams Delinquent Tax Collection Assistant Relationship Specialty Start Date End Date Inderjit Narayan DO [address] [place] [phone] PCP - General Family Practice 04/09/23 08/29/23 documented as of this encounter
--- OUTSIDE RECORDS SUMMARY | 2024-12-09 21:54 | XMS_ITS | Clinical Summary ---
Author Organization [facility] Address [address] [place] [address] Care Team Providers Care Fisher Weir Name Role Phone Unavailable Primary Care Provider [...]
--- OUTSIDE RECORDS SUMMARY | 2024-12-09 21:54 | XMS_ITS | Encounter Summary ---
Author Organization [facility] Address [address] [place] [address] Care Team Providers Care Body Art Technician Name Role Phone Inderjit Narayan DO Primary Care Provider + Encounter Details Date Type Department Care Team (Late st Contact Info) Description 06/30/1999 Outpatient Historical [facility] Medicine - [facility] [address] [facility] [address] [place] [address] Tayler Viera MD [address] [place] [address] Social History Tobacco Use Types Packs/Day Years Used Date Smoking Tobacco: Never Assessed Sex and Gender Information Value Date Recorded Sex Assigned at Not on file Legal Sex Male 4:12 AM COMPOSITION PROFESSOR Gender Identity Not on file Sexual Orientation Not on file documented as of this encounter Plan of Treatment Not on file documented as of this encounter Visit Diagnoses Not on filedocumented in this encounter Care Teams Body Art Technician Relationship Specialty Start Date End Date Inderjit Narayan DO [address] [place] [phone] PCP - General Family Practice 04/09/23 08/29/23 documented as of this encounter
--- OUTSIDE RECORDS SUMMARY | 2024-12-09 21:54 | XMS_ITS | Encounter Summary ---
Author Organization [facility] Address [address] [place] [address] Care Team Providers Care Community Development Worker Name Role Phone Inderjit Narayan DO Primary Care Provider + Encounter Details Date Type Department Care Team (Late st Contact Info) Description 11/20/2008 Outpatient Historical [facility] Cristela Gant MD [address] [place] [address] Blood in Stool Social History Tobacco Use Types Packs/Day Years Used Date Smoking Tobacco: Never Alcohol Use Standard Drinks/Week Comments No 0 (1 standard drink = 0.6 oz pur e alcohol) Sex and Gender Information Value Date Recorded Sex Assigned at Not on file Legal Sex Male 4:12 AM MARKET EDITOR Gender Identity Not on file Sexual Orientation Not on file documented as of this encounter Plan of Treatment Not on file documented as of this encounter Visit Diagnoses Diagnosis Blood in stool documented in this encounter Care Teams Community Development Worker Relationship Specialty Start Date End Date Inderjit aNrayan DO [facility] [place] [phone] PCP - General Family Practice 04/09/23 08/29/23 documented as of this encounter
--- OUTSIDE RECORDS SUMMARY | 2024-12-09 21:54 | XMS_ITS | Encounter Summary ---
Author Organization [facility] Address [address] [place] [address] Care Team Providers Care Showroom Salesperson Name Role Phone RomelbentleyrickyjosselineInderjit Nayeli CHRISTIANSEN Primary Care Provider + Encounter Details Date Type Department Care Team (Late st Contact Info) Description 09/28/2008 Outpatient Historical [facility] Cristela Gant MD [address] [place] [address] Blood in Stool Social History Tobacco Use Types Packs/Day Years Used Date Smoking Tobacco: Never Alcohol Use Standard Drinks/Week Comments No 0 (1 standard drink = 0.6 oz pur e alcohol) Sex and Gender Information Value Date Recorded Sex Assigned at Not on file Legal Sex Male 4:12 AM SWIMMING POOL SALESPERSON Gender Identity Not on file Sexual Orientation Not on file documented as of this encounter Plan of Treatment Not on file documented as of this encounter Procedures Procedure Name Priority Date/Time Associated Diagnosis Comments PATHOLOGY Routine 09/28/2008 1:15 PM SWIMMING POOL SALESPERSON C. DIFFICILE DETECTION Routine 09/28/2008 12:57 PM SWIMMING POOL SALESPERSON FECAL LEUKOCYTES STAIN Routine 09/28/2008 12:57 PM SWIMMING POOL SALESPERSON OVA AND PARASITE SCREEN Routine 09/28/2008 12:57 PM SWIMMING POOL SALESPERSON STOOL CULTURE W/SHIGA TOXIN Routine 09/28/2008 12:57 PM SWIMMING POOL SALESPERSON documented in this encounter Results * PATHOLOGY (09/28/2008 1:15 PM SWIMMING POOL SALESPERSON) FINAL REPORT [facility] [address] [facility] [place], [place] [address] Patient: SONG ALDANA : 1950 Procedure Date: 09/28/2008 Accession Date: 09/28/2008 Case No: [id number] Ordering Dr: CRISTELA GANT Case types AW, BW, FW, NW and SH are performed by [facility] [place], [place], [place] SURGICAL PATHOLOGY & NON-GYNECOLOGIC CYTOPATHOLOGY REPORT [...] 06:03 pm Microscopic: The slides are labeled [id number] and Song Jovan. The left colon biopsy [...] 05:12 pm INTERFACE SYSTEM 09/28/2008 1:15 PM SWIMMING POOL SALESPERSON us Cristela Gant MD PATHOLOGY/CYTOLOGY ORDERABLES F inal Result Performing Organization Address [facility] Phone Number INTERFACE SYSTEM Refer to clinic/hospital department * OVA AND PARASITE SCREEN (09/28/2008 12:57 PM SWIMMING POOL SALESPERSON) FINAL REPORT Concentratio n: No ova or parasites seen. Trichrome: No ova or parasites seen. [facility] Stool specimen (specimen) 09/28/2008 12:57 PM SWIMMING POOL SALESPERSON 09/28/2008 1:49 PM SWIMMING POOL SALESPERSON Narrative INTERFACE SYSTEM - 10/01/2008 11:56 AM SWIMMING POOL SALESPERSON Performed by [facility] [address] Performed by [facility] [address] [place] Cristela Gant MD MICROBIOLOGY - GENERAL ORDERABL ES Final Result Performing Organization Address [facility] Phone Number INTERFACE SYSTEM Refer to clinic/hospital department [facility] CLIA# [id number] [address] [place] [address] * FECAL LEUKOCYTES STAIN (09/28/2008 12:57 PM SWIMMING POOL SALESPERSON) FINAL REPORT Rare WBC's seen [facility] Stool specimen (specimen) 09/28/2008 12:57 PM SWIMMING POOL SALESPERSON 09/28/2008 1:49 PM SWIMMING POOL SALESPERSON us Cristela Gant MD MICROBIOLOGY - GENERAL ORDERABL ES Final Result Performing Organization Address [facility] de Phone Number INTERFACE SYSTEM Refer to clinic/hospital department [facility] CLIA# [id number] [address] [place] [address] * STOOL CULTURE (09/28/2008 12:57 PM SWIMMING POOL SALESPERSON) FINAL REPORT No Salmonella isolated. No Shigella isolated. No Escherichia coli serogroup O157:H7 isolated. No Camplylobacter isolated. [facility] Stool specimen (specimen) 09/28/2008 12:57 PM SWIMMING POOL SALESPERSON 09/28/2008 1:49 PM SWIMMING POOL SALESPERSON Cristela Gant MD MICROBIOLOGY - GENERAL ORDERABL ES Final Result INTERFACE SYSTEM Refer to clinic/hospital department [facility] CLIA# [id number] [address] [place] [address] * CLOSTRIDIUM DIFFICILE TOXIN (09/28/2008 12:57 PM SWIMMING POOL SALESPERSON) FINAL REPORT NO Clostridium difficile Toxin A or B detected by EIA. A negative result does not rule out C. difficile associated diarrhea or colitis. [facility] Stool specimen (specimen) 09/28/2008 12:57 PM SWIMMING POOL SALESPERSON 09/28/2008 1:49 PM SWIMMING POOL SALESPERSON Cristela Gant MD MICROBIOLOGY - GENERAL ORDERABL ES Final Result Performing Organization Address [facility]/ZIP Co de Phone Number INTERFACE SYSTEM Refer to clinic/hospital department [facility] CLIA# [id number] [address] [place] [address] documented in this encounter Visit Diagnoses Diagnosis Blood in stool documented in this encounter Care Teams Showroom Salesperson Relationship Specialty Start Date End Date Inderjit Narayan DO [address] [place] [phone] PCP - General Family Practice 04/09/23 08/29/23 documented as of this encounter
--- OUTSIDE RECORDS SUMMARY | 2024-12-09 21:54 | XMS_ITS | Encounter Summary ---
Author Organization [facility] Address [address] [place] [address] Care Team Providers Care Lining Strap Closer Name Role Phone Inderjit Narayan DO Primary Care Provider + Encounter Details Date Type Department Care Team (Late st Contact Info) Description 06/10/2001 Outpatient Historical [facility] Medicine - [facility] [address] [facility] [address] [place] [address] Tayler Viera MD [address] [place] [address] Social History Tobacco Use Types Packs/Day Years Used Date Smoking Tobacco: Never Assessed Sex and Gender Information Value Date Recorded Sex Assigned at Not on file Legal Sex Male 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
--- OUTSIDE RECORDS SUMMARY | 2024-12-09 21:54 | XMS_ITS | Encounter Summary ---
Author Organization [facility] Address [address] [place] [address] Care Team Providers Care Metalizer Field Operation Name Role Phone Inderjit Narayan DO Primary Care Provider + Encounter Details Date Type Department Care Team (Late st Contact Info) Description 04/05/2002 Outpatient Historical [facility] Medicine - [facility] [address] 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
--- OUTSIDE RECORDS SUMMARY | 2024-12-09 21:54 | XMS_ITS | Encounter Summary ---
Author Organization [facility] Address [address] [place] [address] Care Team Providers Care Trimmer Meat Name Role Phone Inderjit Narayan DO Primary Care Provider + Encounter Details Date Type Department Care Team (Late st Contact Info) Description 05/04/2003 Outpatient Historical [facility] Medicine - [facility] [address] [facility] [address] [place] [address] Tayler Viera MD [address] [place] [address] Social History Tobacco Use Types Packs/Day Years Used Date Smoking Tobacco: Never Assessed Sex and Gender Information Value Date Recorded Sex Assigned at Not on file Legal Sex Male 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
--- OUTSIDE RECORDS SUMMARY | 2024-12-09 21:54 | XMS_ITS | Encounter Summary ---
Author Organization [facility] Address [address] [place] [address] Care Team Providers Care Alliances Consultant Name Role Phone Inderjit Narayan DO Primary Care Provider + Encounter Details Date Type Department Care Team (Late st Contact Info) Description 07/16/2000 Outpatient Historical [facility] Medicine - [facility] [address] [facility] [address] [place] [address] Tayler Viera MD [address] [place] [address] Social History Tobacco Use Types Packs/Day Years Used Date Smoking Tobacco: Never Assessed Sex and Gender Information Value Date Recorded Sex Assigned at Not on file Legal 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
--- OUTSIDE RECORDS SUMMARY | 2024-12-09 21:54 | XMS_ITS | Encounter Summary ---
Author Organization [facility] Address [address] [place] [address] Care Team Providers Care Business Representative Name Role Phone Inderjit Narayan DO Primary Care Provider + Encounter Details Date Type Department Care Team (Late st Contact Info) Description 05/11/2003 Outpatient Historical [facility] Medicine - [facility] [address] [facility] [address] [place] [address] Tayler Viera MD [address] [place] [address] Social History Tobacco Use Types Packs/Day Years Used Date Smoking Tobacco: Never Assessed Sex and Gender Information Value Date Recorded Sex Assigned at Not on file Legal Sex Male 4:12 AM WOUND NURSE Gender Identity Not on file Sexual Orientation Not on file documented as of this encounter Plan of Treatment Not on file documented as of this encounter Visit Diagnoses Not on filedocumented in this encounter Care Teams Business Representative Relationship Specialty Start Date End Date Inderjit Narayan DO [address] [place] [phone] PCP - General Family Practice 04/09/23 08/29/23 documented as of this encounter
[2024-12-09 22:18] LABS: Basophils Absolute Auto 0.1 K/mm3 (0.0-0.1); Basophils Percent Auto 1.2 % (0.2-1.2); Eosinophils Absolute Auto 0.6 K/mm3 (0-0.3); Eosinophils Percent Auto 8.1 % (0-4.4); Hemoglobin 13.3 g/dL (14.0-18.0); Immature Granulocyte Absolute 0.02 K/mm3 (0.00-0.031); Immature Granulocyte Percent A 0.3 % (0-0.5); Lymphocytes Absolute Auto 2.15 K/mm3 (0.9-3.2); Lymphocytes Percent Auto 29.5 % (18.3-44.2); Mean Corpuscular HGB Conc 32.4 g/dl (32-36); Mean Corpuscular Volume 92.3 fl (80-100); Mean Platelet Volume 9.3 fl (7.4-10.4); Monocytes Absolute Auto 1.1 K/mm3 (0.1-0.6); Monocytes Percent Auto 14.7 % (2.6-8.5); Neutrophils Absolute Auto 3.4 K/mm3 (1.3-6.7); Neutrophils Percent Auto 46.2 % (45.5-73.1); Platelet Count Result 216 k/mm3 (150-375); Red Blood Count 4.44 M/mm3 (4.6-6.20); Red Cell Distribution Width 13.2 % (11.5-14.5); White Blood Count 7.3 K/mm3 (4.5-10.0)
[2024-12-09] MEDS: dexAMETHasone SOD PHOS INJ 10 MG/ML 1 ML VIAL IV PUSH (22:33)
[2024-12-09] MEDS: IPRATROPIUM 0.5 MG/ALBUTEROL SULFATE 2.5 MG AMPUL.NEB 3 ML INHALATION (22:37)
--- NOTE | 2024-12-09 22:38 | ED_ITS ---
HPI - General Adult General Chief complaint: Shortness of Breath/Dyspnea Stated complaint: cough, increased SOB Time Seen by Provider: 12/09/24 22:00 History of Present Illness HPI narrative: Patient 74-year-old gentleman presents emergency department with chief complaint of shortness of breath and cough. The patient states that he had a methacholine test to evaluate for probable bronchospasm which was positive patient states that since then he has had increasing cough and has been straining whenever he coughs. The patient states that he did attempt to use a inhaler today and that helped for a few minutes but then the symptoms came back. Related Data Home Medications ?Medication ?Instructions ?Recorded ?Confirmed ?Last Taken ?Type losartan 50 mg tablet 50 mg PO DAILY 06/28/22 01/02/24 06/28/22 07:00 History montelukast 10 mg tablet 10 mg PO HS 06/28/22 01/02/24 06/27/22 21:00 History simvastatin 40 mg tablet 40 mg PO DAILY 06/28/22 01/02/24 06/28/22 07:00 History tamsulosin 0.4 mg capsule 0.4 mg PO DAILY 01/02/24 01/02/24 Unknown History Allergies Allergy/AdvReac Type Severity Reaction Status Date / Time prednisone Allergy Rash Verified 12/09/24 21:13 Review of Systems 2 Review of Systems: A 10 system review of systems was completed on the patient and is negative except for what is stated in the HPI. Nursing and ancillary documentation was reviewed. 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 Smoking status: Never smoker Alcohol intake: never Substance use: never Lack of Transportation: No Lack of Food: Never True Current Housing: I Have Housing Concerned About Future Housing: No Difficulty Paying Gas/Electric Bills: No Difficulty Paying for Meds: No Currently Unemployed: No Education: Bachelor's Degree Difficulty w/ Childcare or Family Care: No Spiritual care concerns: No Exam 2 Narrative: GENERAL: Well-appearing, well-nourished, and in no acute distress. HEAD: Normocephalic, atraumatic. EYES: PERRLA and EOMI. ENT: Nares clear, no rhinorrhea or epistaxis. Mucous membranes moist. NECK: Supple. CHEST: Clear to auscultation. No respiratory distress. HEART: Regular rate and rhythm. No murmur heard. Normal peripheral pulses. ABDOMEN: Soft, nontender, nondistended, normal active bowel sounds. EXTREMITIES: Normal range of motion. No edema. SKIN: Warm, dry, no rash. NEURO: No focal deficits. Alert and oriented x3. PSYCH: Normal mood and affect. Course Course Emergency Course: Differential diagnosis includes bronchospasm, pneumonia, ACS laboratory studies were obtained on the patient showed normal CBC normal CMP lactate was normal troponin was negative BNP was normal COVID flu RSV were negative chest x-ray showed no focal infiltrate EKG showed no acute ischemic changes. Patient received IV steroids and breathing treatment is feeling much better at this point patient be discharged home on Medrol Dosepak and Tessalon Perles Vital Signs Vital signs: Vital Signs Temperature 36.4 C L 12/09/24 21:14 Pulse Rate 77 12/09/24 21:14 Respiratory Rate 17 12/09/24 21:14 Blood Pressure 133/84 12/09/24 21:14 Pulse Oximetry 99 12/09/24 21:14 Oxygen Delivery Room Air 12/09/24 21:14 Temperature 36.4 C L 12/09/24 21:14 Pulse Rate 69 12/09/24 22:49 Respiratory Rate 14 12/09/24 22:49 Blood Pressure 155/81 H 12/09/24 22:01 Pulse Oximetry 97 12/09/24 22:35 Oxygen Delivery Room Air 12/09/24 22:17 Medical Decision Making Vital Signs Vital Signs: Vital Signs Temperature 36.4 C L 12/09/24 21:14 Pulse Rate 77 12/09/24 21:14 Respiratory Rate 17 12/09/24 21:14 Blood Pressure 133/84 12/09/24 21:14 Pulse Oximetry 99 12/09/24 21:14 Oxygen Delivery Room Air 12/09/24 21:14 Temperature 36.4 C L 12/09/24 21:14 Pulse Rate 69 12/09/24 22:49 Respiratory Rate 14 12/09/24 22:49 Blood Pressure 155/81 H 12/09/24 22:01 Pulse Oximetry 97 12/09/24 22:35 Oxygen Delivery Room Air 12/09/24 22:17 Lab Data 12/09/24 22:14 12/09/24 22:14 Labs: Lab Results 12/09/24 12/09/24 12/09/24 Range/Units 22:14 22:14 22:14 WBC 7.3 (4.5-10.0) K/mm3 RBC 4.44 L (4.6-6.20) M/mm3 Hgb 13.3 L (14.0-18.0) g/dL Hct 41.0 L (42.0-52.0) % MCV 92.3 (80-100) fl MCH 30.0 (26-34) pg MCHC 32.4 (32-36) g/dl RDW 13.2 (11.5-14.5) % Plt Count 216 (150-375) k/mm3 MPV 9.3 (7.4-10.4) fl Immature Gran % (Auto) 0.3 (0-0.5) % Neut % (Auto) 46.2 (45.5-73.1) % Lymph % (Auto) 29.5 (18.3-44.2) % Maverick % (Auto) 14.7 H (2.6-8.5) % Eos % (Auto) 8.1 H (0-4.4) % Baso % (Auto) 1.2 (0.2-1.2) % Lymph # (Auto) 2.15 (0.9-3.2) K/mm3 Maverick # (Auto) 1.1 H (0.1-0.6) K/mm3 Eos # (Auto) 0.6 H (0-0.3) K/mm3 Baso # (Auto) 0.1 (0.0-0.1) K/mm3 Abs Immat Gran (auto) 0.02 (0.00-0.031) K/mm3 Absolute Neuts (auto) 3.4 (1.3-6.7) K/mm3 Absolute Nucleated RBC 0.000 (0.0-0.012) K/mm3 Nucleated RBC % 0.0 (0.0-0.2) % Sodium 139 (137-145) mmol/L Potassium 4.3 (3.4-5.0) mmol/L Chloride 107 (98-107) mmol/L Carbon Dioxide 24 (22-30) mmol/L Anion Gap 8 (4-12) mmol/L BUN 13 D (9-20) mg/dL Creatinine 0.75 (0.7-1.3) mg/dL Estim Creat Clear Calc 90 ml/min Estimated GFR > 60 (59 - ) Glucose 116 H (65-110) mg/dL Lactic Acid (0.7-2.0) mmol/L Calcium 8.8 (8.4-10.2) mg/dL Magnesium 2.0 Cancelled (1.6-2.3) mg/dL Total Bilirubin 0.6 (0.2-1.3) mg/dL AST 43 (17-59) U/L ALT 36 (6-50) U/L Alkaline Phosphatase 68 (38-126) U/L Troponin I < 0.012 Cancelled (0.000-0.034) ng/mL NT-Pro-B Natriuret Pep 80 (19.9-100) pg/mL Total Protein (6.3-8.2) g/dL Albumin (3.5-5.1) g/dL Influenza A (RT-PCR) (Negative) Influenza B (RT-PCR) (Negative) RSV (RT-PCR) (Negative) SARS-CoV-2 RNA (RT-PCR) (Negative) 12/09/24 12/09/24 Range/Units 22:14 22:31 WBC (4.5-10.0) K/mm3 RBC (4.6-6.20) M/mm3 Hgb (14.0-18.0) g/dL Hct (42.0-52.0) % MCV (80-100) fl MCH (26-34) pg MCHC (32-36) g/dl RDW (11.5-14.5) % Plt Count (150-375) k/mm3 MPV (7.4-10.4) fl Immature Gran % (Auto) (0-0.5) % Neut % (Auto) (45.5-73.1) % Lymph % (Auto) (18.3-44.2) % Maverick % (Auto) (2.6-8.5) % Eos % (Auto) (0-4.4) % Baso % (Auto) (0.2-1.2) % Lymph # (Auto) (0.9-3.2) K/mm3 Maverick # (Auto) (0.1-0.6) K/mm3 Eos # (Auto) (0-0.3) K/mm3 Baso # (Auto) (0.0-0.1) K/mm3 Abs Immat Gran (auto) (0.00-0.031) K/mm3 Absolute Neuts (auto) (1.3-6.7) K/mm3 Absolute Nucleated RBC (0.0-0.012) K/mm3 Nucleated RBC % (0.0-0.2) % Sodium (137-145) mmol/L Potassium (3.4-5.0) mmol/L Chloride (98-107) mmol/L Carbon Dioxide (22-30) mmol/L Anion Gap (4-12) mmol/L BUN (9-20) mg/dL Creatinine (0.7-1.3) mg/dL Estim Creat Clear Calc ml/min Estimated GFR (59 - ) Glucose (65-110) mg/dL Lactic Acid 1.4 (0.7-2.0) mmol/L Calcium (8.4-10.2) mg/dL Magnesium (1.6-2.3) mg/dL Total Bilirubin (0.2-1.3) mg/dL AST (17-59) U/L ALT (6-50) U/L Alkaline Phosphatase (38-126) U/L Troponin I (0.000-0.034) ng/mL NT-Pro-B Natriuret Pep Cancelled (19.9-100) pg/mL Total Protein 7.0 (6.3-8.2) g/dL Albumin 4.0 (3.5-5.1) g/dL Influenza A (RT-PCR) Negative (Negative) Influenza B (RT-PCR) Negative (Negative) RSV (RT-PCR) Negative (Negative) SARS-CoV-2 RNA (RT-PCR) Negative (Negative) Discharge Plan Discharge Clinical Impression: Acute bronchitis with asthma Patient Disposition: Home Condition: Stable Instructions: Antibiotic Form, Acute Bronchitis (ED) Patient Language: Chilean Prescriptions: New methylprednisolone [Medrol (Gerardo)] 4 mg tablets,dose pack See Rx Instructions PO .COMPLEX Qty: 21 0RF Rx Instructions: orally per package directions benzonatate 200 mg capsule 200 mg PO TID PRN (Reason: cough) Qty: 21 0RF No Action azithromycin [Zithromax Z-Gerardo] 250 mg tablet See Rx Instructions .ROUTE .COMPLEX Qty: 6 0RF Rx Instructions: take 500 mg today (day 1), then 250 mg for 4 days (days 2-5) methylprednisolone [Medrol (Gerardo)] 4 mg tablets,dose pack See Rx Instructions .ROUTE .COMPLEX Qty: 21 0RF Rx Instructions: orally per package directions tamsulosin 0.4 mg capsule 0.4 mg PO DAILY simvastatin 40 mg tablet 40 mg PO DAILY losartan 50 mg tablet 50 mg PO DAILY montelukast 10 mg tablet 10 mg PO HS cefdinir 300 mg capsule 300 mg PO Q12H 10 Days Qty: 20 0RF Follow-up/Referrals: Helene,DO Inderjit [Primary Care Provider] - Time of Disposition: 00:31
[2024-12-09 22:48] LABS: Alanine Aminotransferase 36 U/L (6-50); Alkaline Phosphatase 68 U/L (38-126); Anion Gap 8 mmol/L (4-12); Aspartate Amino Transferase 43 U/L (17-59); Bilirubin,Total 0.6 mg/dL (0.2-1.3); Blood Urea Nitrogen 13 mg/dL (9-20); Calcium 8.8 mg/dL (8.4-10.2); Carbon Dioxide 24 mmol/L (22-30); Chloride 107 mmol/L (98-107); Estimated CRCL calculation 90 ml/min; Estimated Glomerular Filt Rate > 60; Glucose 116 mg/dL (65-110); Potassium 4.3 mmol/L (3.4-5.0); Sodium 139 mmol/L (137-145)
[2024-12-09 22:49] LABS: Lactic Acid Reflex 1.4 mmol/L (0.7-2.0)
[2024-12-09 23:03] LABS: NT Pro B Type Natriuretic Pept 80 pg/mL (19.9-100); Troponin I < 0.012 ng/mL (0.000-0.034)
[2024-12-09 23:13] LABS: Influenza A QL RT-PCR Negative (Negative); Influenza B QL RT-PCR Negative (Negative); RSV RNA, RT-PCR Negative (Negative); SARS-CoV-2 RNA PCR Negative (Negative)
[2024-12-10 00:03] VITALS: BP 132/66; PULSE 62; RESP 19; O2SAT 97
--- NOTE | 2024-12-10 00:04 | PC.NURSE ---
pt ambulatory with steady gait to restroom.
[2024-12-10 00:31] VITALS: BP 134/66; PULSE 71; RESP 20; O2SAT 97
== END 2024-12-10 00:42 | disposition home or self-care (01) ==
PROVIDERS: Emergency Provider Emergency Medicine; PCP Student in an Organized Health Care Education/Training Program
DX: J20.9 Acute bronchitis, unspecified (principal); J45.909 Unspecified asthma, uncomplicated; I10 Essential (primary) hypertension; E78.5 Hyperlipidemia, unspecified; Z20.822 Contact with and (suspected) exposure to COVID-19
CPT/HCPCS: 36415; 71046; 80053; 83605; 83735; 83880; 84484; 85025; 87637; 93005; 94640; 96374; 99284; J1100

== ENCOUNTER 2025-02-03 09:04 | Emergency (ER) | payer MEDICARE, OTHER, SELFPAY ==
--- NOTE | ~2025-02-03 | CT_ITS ---
EXAMINATION: CT abdomen pelvis wo con DATE: 02/03/2025 09:35 INDICATION: Left flank pain TECHNIQUE: Computed tomography (CT) of the abdomen and pelvis was performed without intravenous contr ast. Automated exposure control and iterative reconstruction technique were employed. The dose-length product was 316.19 mGy-cm. COMPARISON: 10/06/2024 FINDINGS: Mild elevation the left hemidiaphragm with mild left basilar atelectasis. Heart size is normal. No pe ricardial or pleural effusion. Mild diffuse hepatic steatosis. Gallbladder, spleen, pancreas, bilater al adrenal glands are normal. 1.8 cm right renal cyst. Bilateral nonobstructing nephrolithiasis with 9 stones in the right kidney measuring up to 8mm and 4 stones in the left kidney measuring up to 5 mm . No ureteral stones or hydronephrosis. There is mild diverticulosis along the descending and sigmoid colon without adjacent inflammatory change to suggest diverticulitis. Small bowel and appendix are n ormal. Partially decompressed bladder is normal. No free intraperitoneal gas or fluid. No pathologica lly enlarged abdominal or pelvic lymphadenopathy. 25 degrees thoracic dextroscoliosis with mild to mo derate spondylosis. IMPRESSION: 1. Bilateral nonobstructing nephrolithiasis. Reviewed, dictated and finalized at location A.
[2025-02-03 09:12] VITALS: BP 155/89; PULSE 68; RESP 16; TEMP 36.4; O2SAT 98
[2025-02-03 09:46] LABS: Basophils Absolute Auto 0.1 K/mm3 (0.0-0.1); Basophils Percent Auto 1.6 % (0.2-1.2); Eosinophils Absolute Auto 0.5 K/mm3 (0-0.3); Eosinophils Percent Auto 7.2 % (0-4.4); Hematocrit 44.2 % (42.0-52.0); Hemoglobin 14.7 g/dL (14.0-18.0); Immature Granulocyte Absolute 0.01 K/mm3 (0.00-0.031); Immature Granulocyte Percent A 0.1 % (0-0.5); Lymphocytes Absolute Auto 1.89 K/mm3 (0.9-3.2); Lymphocytes Percent Auto 27.2 % (18.3-44.2); Mean Corpuscular HGB Conc 33.3 g/dl (32-36); Mean Corpuscular Hemoglobin 30.2 pg (26-34); Mean Corpuscular Volume 90.8 fl (80-100); Mean Platelet Volume 9.6 fl (7.4-10.4); Monocytes Absolute Auto 0.8 K/mm3 (0.1-0.6); Monocytes Percent Auto 11.4 % (2.6-8.5); Neutrophils Absolute Auto 3.6 K/mm3 (1.3-6.7); Neutrophils Percent Auto 52.5 % (45.5-73.1); Platelet Count Result 219 k/mm3 (150-375); Red Blood Count 4.87 M/mm3 (4.6-6.20); Red Cell Distribution Width 12.5 % (11.5-14.5); White Blood Count 6.9 K/mm3 (4.5-10.0)
[2025-02-03 09:47] LABS: Add Urine Microscopic? NO; Appearance Urine Clear (Clear); Bilirubin Urine Negative (Negative); Blood Urine Negative (Negative); Color Urine Yellow (Yellow); Glucose Urine UA Negative (Negative); Ketones Urine Negative (Negative); Leukocyte Esterase Ur Negative LEU/UL (Negative); Nitrate Urine Negative (Negative); Protein Urine Negative (Negative); Specific Grav Ur 1.013 (1.001-1.035); Urobilinogen Urine 0.2 mg/dL (<2.0)
[2025-02-03 10:05] LABS: Alanine Aminotransferase 36 U/L (6-50); Albumin Level 3.9 g/dL (3.5-5.1); Alkaline Phosphatase 75 U/L (38-126); Anion Gap 7 mmol/L (4-12); Aspartate Amino Transferase 38 U/L (17-59); Bilirubin,Total 0.6 mg/dL (0.2-1.3); Blood Urea Nitrogen 14 mg/dL (9-20); Calcium 9.4 mg/dL (8.4-10.2); Carbon Dioxide 24 mmol/L (22-30); Chloride 107 mmol/L (98-107); Estimated CRCL calculation 74 ml/min; Estimated Glomerular Filt Rate > 60; Glucose 117 mg/dL (65-110); Potassium 4.4 mmol/L (3.4-5.0); Sodium 138 mmol/L (137-145); Total Protein 7.5 g/dL (6.3-8.2)
--- NOTE | 2025-02-03 10:21 | ED.BACK ---
HPI - Back Pain/Injury General Chief Complaint: Back Pain/Injury Stated Complaint: Back Pain Time Seen by Provider: 02/03/25 10:02 History of Present Illness HPI Narrative: Patient is a 74-year-old male who presents ER with low back pain. Ongoing over last couple of days. Low in left-sided. No radiation abdomen. No radiation to groin. No nausea or vomiting. No urinary frequency urgency or dysuria. He is traveling to [place] tomorrow and does not want to go the hospital he is passing a kidney stone. No saddle anesthesia. Symptoms worsened with twisting moving. Related Data Home Medications ?Medication ?Instructions ?Recorded ?Confirmed ?Last Taken ?Type losartan 50 mg tablet 50 mg PO DAILY 06/28/22 01/02/24 06/28/22 07:00 History montelukast 10 mg tablet 10 mg PO HS 06/28/22 01/02/24 06/27/22 21:00 History simvastatin 40 mg tablet 40 mg PO DAILY 06/28/22 01/02/24 06/28/22 07:00 History tamsulosin 0.4 mg capsule 0.4 mg PO DAILY 01/02/24 01/02/24 Unknown History Allergies Allergy/AdvReac Type Severity Reaction Status Date / Time prednisone Allergy Rash Verified 02/03/25 09:14 Review of Systems Constitutional: Constitutional: Reports no additional constitutional complaints Gastrointestinal: Gastrointestinal: Reports no additional gastrointestinal complaints Genitourinary: Genitourinary: Reports no additional male genitourinary complaints Musculoskeletal: Musculoskeletal: Reports no additional musculoskeletal complaints [facility] Past Medical History Medical History Overweight (BMI 25.0-29.9) Seasonal allergies Essential hypertension Hyperlipidemia Nephrolithiasis Surgical History Surgical History History of surgery of head Family History Family History Mother Cerebrovascular accident Father Acute myocardial infarction Social History 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 Smoking status: Never smoker Alcohol intake: never Substance use: never Lack of Transportation: No Lack of Food: Never True Current Housing: I Have Housing Concerned About Future Housing: No Difficulty Paying Gas/Electric Bills: No Difficulty Paying for Meds: No Currently Unemployed: No Education: Bachelor's Degree Difficulty w/ Childcare or Family Care: No Spiritual care concerns: No Exam Narrative: GENERAL: Well-appearing, well-nourished, and in no acute distress. HEAD: Normocephalic, atraumatic. CHEST: Clear to auscultation. No respiratory distress. HEART: Regular rate and rhythm. Normal peripheral pulses. ABDOMEN: Soft, nontender, nondistended. Back: No significant midline or paraspinal tenderness the T/L-spine. EXTREMITIES: Normal range of motion. No edema. NEURO: Alert and oriented x3. PSYCH: Normal mood and affect. Course Course Emergency Course: [place] to be a muscle issue. Discussed imaging and lab results. Discharge. Vital Signs Vital signs: Vital Signs Temperature 97.6 F 02/03/25 09:12 Pulse Rate 68 02/03/25 09:12 Respiratory Rate 16 02/03/25 09:12 Blood Pressure 155/89 H 02/03/25 09:12 Pulse Oximetry 98 02/03/25 09:12 Temperature 97.6 F 02/03/25 09:12 Pulse Rate 68 02/03/25 09:12 Respiratory Rate 16 02/03/25 09:12 Blood Pressure 155/89 H 02/03/25 09:12 Pulse Oximetry 98 02/03/25 09:12 MDM - Back Pain/Injury Lab Data 02/03/25 09:39 02/03/25 09:39 Labs: Lab Results 02/03/25 Range/Units 09:39 WBC 6.9 (4.5-10.0) K/mm3 RBC 4.87 (4.6-6.20) M/mm3 Hgb 14.7 (14.0-18.0) g/dL Hct 44.2 (42.0-52.0) % MCV 90.8 (80-100) fl MCH 30.2 (26-34) pg MCHC 33.3 (32-36) g/dl RDW 12.5 (11.5-14.5) % Plt Count 219 (150-375) k/mm3 MPV 9.6 (7.4-10.4) fl Immature Gran % (Auto) 0.1 (0-0.5) % Neut % (Auto) 52.5 (45.5-73.1) % Lymph % (Auto) 27.2 (18.3-44.2) % [place] % (Auto) 11.4 H (2.6-8.5) % Eos % (Auto) 7.2 H (0-4.4) % Baso % (Auto) 1.6 H (0.2-1.2) % Lymph # (Auto) 1.89 (0.9-3.2) K/mm3 [place] # (Auto) 0.8 H (0.1-0.6) K/mm3 Eos # (Auto) 0.5 H (0-0.3) K/mm3 Baso # (Auto) 0.1 (0.0-0.1) K/mm3 Abs Immat Gran (auto) 0.01 (0.00-0.031) K/mm3 Absolute Neuts (auto) 3.6 (1.3-6.7) K/mm3 Absolute Nucleated RBC 0.000 (0.0-0.012) K/mm3 Nucleated RBC % 0.0 (0.0-0.2) % Sodium 138 (137-145) mmol/L Potassium 4.4 (3.4-5.0) mmol/L Chloride 107 (98-107) mmol/L Carbon Dioxide 24 (22-30) mmol/L Anion Gap 7 (4-12) mmol/L BUN 14 (9-20) mg/dL Creatinine 0.81 (0.7-1.3) mg/dL Estim Creat Clear Calc 74 ml/min Estimated GFR > 60 (59 - ) Glucose 117 H (65-110) mg/dL Calcium 9.4 (8.4-10.2) mg/dL Total Bilirubin 0.6 (0.2-1.3) mg/dL AST 38 (17-59) U/L ALT 36 (6-50) U/L Alkaline Phosphatase 75 (38-126) U/L Total Protein 7.5 (6.3-8.2) g/dL Albumin 3.9 (3.5-5.1) g/dL Urine Color Yellow (Yellow) Urine Appearance Clear (Clear) Urine pH 7.0 (5.0-9.0) Ur Specific [place] 1.013 (1.001-1.035) Urine Protein Negative (Negative) mg/dL Urine Glucose (UA) Negative (Negative) mg/dL Urine Ketones Negative (Negative) mg/dL Ur Blood (Man) Negative (Negative) Urine Nitrate Negative (Negative) Urine Bilirubin Negative (Negative) Urine Urobilinogen 0.2 (<2.0) mg/dL Leukocyte Esterase Rfl Negative (Negative) STACEY/UL Imaging Data Radiologist's impression: ITS Impressions Abdomen/Pelvis CT 02/03/25 09:51 IMPRESSION: 1. Bilateral nonobstructing nephrolithiasis. Discharge Plan Discharge Clinical Impression: Strain of lumbar region Patient Disposition: Home Condition: Stable Instructions: Acute Low Back Pain (ED) Additional Instructions: Please return to the emergency department if you develop severe pain that is not controlled by pain medications or if you are unable to walk because of pain or weakness. Return to the emergency department immediately if you develop fevers, loss of bowel or bladder control (dribbling of urine or having accidents you wouldn't normally have), inability to urinate, numbness of your genital or anal area, or weakness/numbness of your legs or arms as these could all be signs of a serious medical emergency. Patient Language: Wallisian Prescriptions: New tizanidine 2 mg capsule 2 mg PO Q8H PRN (Reason: muscle spasticity) Qty: 14 0RF No Action azithromycin [Zithromax Z-Gerardo] 250 mg tablet See Rx Instructions .ROUTE .COMPLEX Qty: 6 0RF Rx Instructions: take 500 mg today (day 1), then 250 mg for 4 days (days 2-5) methylprednisolone [Medrol (Gerardo)] 4 mg tablets,dose pack See Rx Instructions .ROUTE .COMPLEX Qty: 21 0RF Rx Instructions: orally per package directions tamsulosin 0.4 mg capsule 0.4 mg PO DAILY simvastatin 40 mg tablet 40 mg PO DAILY losartan 50 mg tablet 50 mg PO DAILY montelukast 10 mg tablet 10 mg PO HS cefdinir 300 mg capsule 300 mg PO Q12H 10 Days Qty: 20 0RF methylprednisolone [Medrol (Gerardo)] 4 mg tablets,dose pack See Rx Instructions PO .COMPLEX Qty: 21 0RF Rx Instructions: orally per package directions benzonatate 200 mg capsule 200 mg PO TID PRN (Reason: cough) Qty: 21 0RF Follow-up/Referrals: Helene,DO Inderjit [Primary Care Provider] - 1 Week
== END 2025-02-03 11:03 | disposition home or self-care (01) ==
PROVIDERS: Emergency Medicine; Emergency Provider Emergency Medicine; PCP Student in an Organized Health Care Education/Training Program
DX: S39.012A Strain of muscle, fascia and tendon of lower back, initial encounter (principal); I10 Essential (primary) hypertension; E78.5 Hyperlipidemia, unspecified
CPT/HCPCS: 36415; 74176; 80053; 81003; 85025; 99284